=== PATIENT | male | born 1965 | race Caucasian/White ===

== ENCOUNTER 2017-10-09 17:17 | Emergency (ER) | payer BC, SELFPAY ==
[2017-10-09] VITALS (7 sets, daily range): BP systolic 139–167; BP diastolic 72–98; PULSE 97–110; RESP 16–20; TEMP 37.3–37.8; O2SAT 97–100; BMI 25.7
[2017-10-09 18:06] LABS: Absolute Lymphocyte Count 1.98 X10^3/ul (0.83-4.51); Absolute Neutrophil Count 6.7 X10^3/uL (2.0-7.7); Basophil# 0.04 X10^3/uL; Basophil% 0.4 % (0-1); Eosinophils% 2.1 % (0-5); Hematocrit 41.5 % (40-54); Hemoglobin 14.5 g/dl (13.0-16.5); Lymphocyte # 1.98 X10^3/ul (4.0); Lymphocyte % 20.9 % (19-41); Mean Corp Hgb Conc 34.9 g/gl (32-36); Mean Corpuscular Hgb 29.1 pg (27.0-32.0); Mean Corpuscular Volume 83.2 fL (80-94); Mean Platelet Vol. 9.6 fl (6.2-12.0); Monocyte# 0.55 X10^3/uL; Monocyte% 5.8 % (0-10); Neutrophil # 6.67 X10^3/uL (2.7-7.7); Neutrophil % 70.6 % (47-70); Platelet Count 283 K/mm3 (150-450); RBC Distribution Width CV 14.4 % (11.6-14.6); RBC Distribution Width SD 43.3 fl (35.1-43.9); Red Blood Count 4.99 M/mm3 (4.6-6.2); White Blood Count 9.5 K/mm3 (4.4-11.0)
[2017-10-09 18:07] LABS: D-Dimer Quantitative (DVT/PE) 0.28 FEU/ug/m (0.27-0.49); POSITIVE COUNT NO; POSITIVE DIFFERENTIAL NO; POSITIVE MORPHOLOGY NO
[2017-10-09 18:14] LABS: Anion Gap 6 (5-15); BUN 10 mg/dL (7-18); BUN/Creat Ratio 8.7 RATIO (10-20); Calcium,Total 8.8 mg/dL (8.5-10.1); Chloride 103 mmol/L (98-107); Creatinine, Serum 1.15 mg/dL (0.70-1.30); EST Glomerular Filtration Rate 71 mL/min (>60); Est Glom Filt Rate - Afr Amer 86 mL/min (>60); Estimated Creatinine Clearance 86.85 ml/min; Glucose 99 mg/dL (74-106); Potassium 3.6 mmol/L (3.5-5.1); Sodium Level 139 mmol/L (136-145)
[2017-10-09] MEDS: Ipratropium/Albuterol Sulfate 3 ML AMPUL.NEB INHALATION (18:45)
--- NOTE | 2017-10-09 19:11 | ED.VISSUMM ---
- ER Visit Summary Date of Service: 10/09/17 Chief Complaint: Patient presents with a constellation of symptoms which include mid chest pain with pleuritic component with cough, shortness of breatth. History of Present Illness: The patient is a 52 wh0 states he had nausea 1 hour prior to the chest pain and shortness of breath. The chest pain and shortness of breath started at rest. He denies pressure, tightness or heaviness. He denies any radiation of discomfort. He denies cold sweats. He does have history of GERD and reports noncompliance with his medication. His risk factors for coronary disease are hypertension, hypoglossal and smoking. His risk for pulmonary embolus is recent travel. Pain started at approximately noon. He denies any leg pain, swelling or discoloration. Patient states he is presently having pain. Physical Examination: Patient appears in no distress. Blood pressure is elevated 167/94. Head is atraumatic normocephalic. Pupils are equal round reactive. Extraocular muscles are intact. TMs are pearly white with landmarks noted. Nares patent with no drainage. Posterior pharynx without erythema or exudate. Uvula is midline. There is no dysphonia or dysphasia. Trachea is midline. There is no stridor with auscultation of the neck. Heart is regular without murmur, gallop or rub. Lungs revealed fine rales and x-ray wheezing with forced expiration. He has no reproducible chest pain. Abdomen is soft nontender with normal bowel sounds. There is no guarding or peritoneal findings. He has no CVA tenderness. There is no asymmetry, swelling, discoloration, leg vein distention, palpable cords or tenderness along the distribution of the deep venous system. Neuro exam is nonfocal. Test Results: Two-view chest x-ray reveals granulomatous disease on the right and unchanged from prior. CBC is unremarkable. Basic metabolic panel is normal. Troponin is less than 0.015. D-dimer is 0.28. Emergency Department Course and Treatment: With patient's constellation of symptoms with cough, pleuritic pain shortness of breath and negative d-dimer will treat for pleurisy and acute bronchitis. Treatment Plan: NSAIDs since there is no contraindication Disposition: Discharged home with appropriate home-going instructions Impression: 1. Bronchitis 2. Pleurisy 3. History of hypertension 4. History hypercholesterolemia 5. History of GERD and medication noncompliance This note was generated with [employer] dictation software. It may contain incorrect words, spelling, and punctuation that were not noted in review of the chart prior to signing ED Disposition - Plan for ED Patient: Disposition: Home or Assisted Living Chief Complaint: Chest Pain Instructions: ED Chest Pain Pleurisy, ED URI Viral Prescriptions: Naproxen [Naprosyn] 500 mg PO BID #14 tab Referrals: Jamie Elias DO [Primary Care Provider] - 3-5 Days if not improving
[2017-10-09] MEDS: Naproxen 250 MG Tablet 500 MG PO (19:29)
== END 2017-10-09 19:31 | disposition home or self-care (01) ==
PROVIDERS: Emergency Provider Emergency Medicine; Family Provider Family Medicine; PCP Family Medicine
DX: J40 Bronchitis, not specified as acute or chronic (principal); R09.1 Pleurisy; I10 Essential (primary) hypertension; E78.00 Pure hypercholesterolemia, unspecified; K21.9 Gastro-esophageal reflux disease without esophagitis; Z91.14 Patient's other noncompliance with medication regimen; Z72.0 Tobacco use
CPT/HCPCS: 71046; 80048; 84484; 85025; 85379; 93005; 94640; 99285

== ENCOUNTER → 2017-11-26 15:40 | Outpatient (CLI) | payer BC, SELFPAY ==
[2017-11-26 17:45] LABS: Potassium 3.7 mmol/L (3.5-5.1)
== END ==
PROVIDERS: Family Provider Family Medicine; PCP Family Medicine; Referring Provider Otolaryngology Otolaryngology/Facial Plastic Surgery; Visit Provider Otolaryngology Otolaryngology/Facial Plastic Surgery
DX: Z79.899 Other long term (current) drug therapy (principal)
CPT/HCPCS: 36415; 84132

== ENCOUNTER → 2018-03-16 12:17 | Outpatient (CLI) | payer BC, SELFPAY ==
--- NOTE | 2018-03-16 12:19 | RAD_ITS ---
STUDY: X-RAY - RIGHT ELBOW REASON FOR EXAM: Male, 52 years old. Pain and swelling following an injury. TECHNIQUE: 3 view(s) of the elbow. COMPARISON: None. FINDINGS: A degenerative bony spur is seen along the posterior aspect of the olecranon. Normal radiocapitellar and ulnotrochlear articulations. Mild soft tissue swelling. RAD/Elbow min 3 Views IMPRESSION: Degenerative spur along the posterior aspect of the olecranon. Soft tissue swelling. Electronically Signed: Robinson Trammell MD at 12:47 EST , Service support ,
--- OUTSIDE RECORDS SUMMARY | 2018-05-18 10:31 | XMS RPT_ITS ---
:1965 Author Organization [facility] Care Team Providers Name Role Phone Yordy Lambert Attending Unavailable Jamie Elias Referring Unavailable Yordy Lambert Attending Unavailable Yordy Lambert Referring Unavailable Jamie Elias Primary Care Unavailable Jamie Elias Primary Care Unavailable Yan, Edgardo Attending Unavailable Carlos Yano Referring Unavailable Angelito Ashley Attending Unavailable Angelito Ashley Referring Unavailable Jamie Elias Primary Care Unavailable PROBLEMS PROBLEMS DATE TYPE CONDITION / CODE ATTENDING STATUS SOURCE 03/16/2018 Unknown M25.521 - Pain Yordy Lambert Active Luc in right elbow / Community M25.521(ICD-10) Hospital Repository PROCEDURES PROCEDURES No Procedure Records FoundRESULTS RESULTS URGENT CARE VISIT Observed: 03/16/2018 Status: F Source: LUC REPORT 2:38 PM [facility] REPOSITORY [facility] [address] [place] [address] OFFICE VISIT Date of Service: 03/16/18 MR#: [id number] Acct: [id number] Name: HAYEDN PENDLETON Rep #: [id number] : 1965 Provider: Yordy HERNANDEZ Age/Sex: 52/M Location: [facility] Status: Signed Intake Vital Signs03/16/18 Height 6 ft 1 in Intake Visit Reasons: RT ELBOW INJURY/ SMACKED IT ON GARAGE/SNOW Chief Complaint: Right elbow 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 Accompanied by: self Is patient in pain?: No Allergies oxycodone [From OxyContin] Allergy (Verified 03/16/18 12:18) Rash Medications Bupropion HCl [Bupropion Xl] 300 mg PO DAILY 10/09/17 [History Confirmed 10/09/17] Naproxen [Naprosyn] 500 mg PO BID #14 tab 10/09/17 [Rx] cyclobenzaprine 10 mg tablet 10 mg PO TID PRN #20 tab 03/16/18 [Rx Confirmed 03/16/18] [facility] Medical History Back pain (Acute) Difficulty balancing (Acute) Knee pain (Acute) Shoulder pain (Acute) Stomach ulcer (Acute) history of broken right hip (Acute) Hypertension (Chronic) Social History Smoking Status: Current some day smoker HPI HPI Chief Complaint: Right elbow pain Details: HAYDEN PENDLETON, is a 52 M who presents to the office today for initial evaluation moderate severe right elbow pain after hitting it against a garage door while clearing snow off the driveway. He notes pain is aggravated to touch and range of motion to the same alleviated minimally with rest and mild flexion. He notes no prior history of injuries requiring medical attention or surgeries to the same. He is right-hand dominant. He notes no complaints of right shoulder, right wrist, or right hand/digits x5 discomfort. He notes no other associated symptoms and no other alleviating or aggravating factors. ROS Const Constitutional: No other (ROS negative x10 other than as noted above) Exam Const General: cooperative, healthy appearing, no acute distress, uncomfortable Nutritional Appearance: average body habitus Orientation: alert, awake, oriented x3 HENMT Head: normal to inspection Neck Neck: normal visual inspection, full ROM Chest Chest palpation AND inspection: normal inspection of the chest Resp Effort AND Inspection: normal respiratory effort, able to speak in complete sentences, symmetric chest movement Cardio Rate: regular rate Pulses: radial pulses present Skin General: no rashes or lesions noted Neuro General: alert, awake, oriented x3, gait normal Cognition: normal cognition Speech: speech normal Gait: normal gait Motor: muscle tone normal throughout Sensory Exam: no sensory deficits noted Extrem General: normal to inspection (Except mild erythema and swelling and fluctuance over the olecranon bursa), full ROM (With pain upon full extension), normal capillary refill, no joint enlargement, normal exam except as noted (X-rays today = no acute fracture or dislocation) Psych Appearance: grossly normal Mental Status: mental status grossly normal Mood: congruent mood Affect: normal affect Speech and Movement: speech and movement normal Attitude: cooperative Thought Process: normal Thought Content: normal Judgment: judgment good Assessment AND Plan Problems 1. Olecranon bursitis of right elbow M70.21 Plan -Traumatic Rest, ice, elevate, ibuprofen/Tylenol, Froilan wrap compression as needed/instructed today. Reviewed today's radiographs with patient in office today revealing no acute fractures dislocation per my review with patient stating he acknowledges understanding this description. Work excuse given. Follow-up with orthopedics in 5-7 days should symptoms not improve, sooner should symptoms worsen or any other concerns develop. Patient states acknowledging understanding all the above. This note was generated with [employer] dictation software. It may contain incorrect words, spelling, and punctuation that were not noted in checking the note before signing. Orders Orders: Medications New: Coding Level of Care Code Off vis,new,level 4 Diagnoses Olecranon bursitis of right elbow M70.21 03/16/18 1438 <Electronically signed by Yordy HERNANDEZ> Date Yordy HERNANDEZ Cosigner Signature: Date (if applicable) CC: ELBOW MIN 3 VIEWS Observed: 03/16/2018 Status: F Source: MINDEN 12:19 PM [facility] REPOSITORY [facility] Imaging Services [address] [place] [address] Elbow min 3 Views MR#: [id number] Acct: [id number] Name: HAYDEN PENDLETON Rep #: [id number] : 1965 M 52 From: Robinson Trammell MD PCP: Jamie Elias DO Status: REG CLI Study: Elbow min 3 Views Date of Exam: 03/16/18 Exam# [id number] Ordering Dr: Yordy Lambert STUDY: X-RAY - RIGHT ELBOW REASON FOR EXAM: Male, 52 years old. Pain and swelling following an injury. TECHNIQUE: 3 view(s) of the elbow. COMPARISON: None. FINDINGS: A degenerative bony spur is seen along the posterior aspect of the olecranon. Normal radiocapitellar and ulnotrochlear articulations. Mild soft tissue swelling. RAD/Elbow min 3 Views IMPRESSION: Degenerative spur along the posterior aspect of the olecranon. Soft tissue swelling. Electronically Signed: Robinson Trammell MD at 12:47 EST , Service support , CC: Jamie Elias DO; Yordy HERNANDEZ Drapery Cutter: Signed POTASSIUM Collected: 11/26/2017 Status: F Source: MINDEN 3:52 PM [facility] REPOSITORY TYPE CODE TESTS RESULT OUT OF RANGE REFERENCE UNITS LAB L501.5600 3.5-5.1 mmol/L Normal K 3.7 Performed By: #### L501.5600 #### [facility] [address] [place], [address] 12 LEAD ELECTROCARDIOGRAM Observed: 10/12/2017 Status: F Source: MINDEN 2:45 PM [facility] Cardiovascular Services [address] [place] [address] 12 Lead EKG 10/09/17 1724 MR#: [id number] Acct: [id number] Name: HAYDEN PENDLETON Rep #: [id number] : 1965 52 From: Tom Medina MD Attending Dr: Status: DEP ER Ordering Dr: Edgardo Yan MD Date: 10/09/17 Location: ED Sex: M C Admitted: Test Reason : CP Blood Pressure : / mmHG Vent. Rate : 095 BPM Atrial Rate : 095 BPM P-R Int : 172 ms QRS Dur : 086 ms QT Int : 324 ms P-R-T Axes : 059 071 053 degrees QTc Int : 407 ms Normal sinus rhythm Nonspecific ST abnormality Abnormal ECG Confirmed by TOM MEDINA MD ([id number]), clinical editor RANJAN BERGERON ([id number]) on 10/12/2017 2:44:46 PM Referred By: Edgardo Yan Confirmed By:TOM MEDINA MD 10/12/17 1444 Date Tom Medina MD CC: Jamie Elias DO; Edgardo Yan MD Signed EMERGENCY DEPARTMENT Observed: 10/09/2017 Status: F Source: MINDEN SUMMARY 7:21 PM [facility] Medical Records Department [address] [place] [address] Emergency Department Summary 10/09/17 1911 MR#: [id number] Acct: [id number] Name: HAYDEN PENDLETON Rep #: [id number] : 1965 52 From: Edgardo Yan MD PCP: Jamie Elias DO Status: REG ER - ER Visit Summary Date of Service: 10/09/17 Chief Complaint: Patient presents with a constellation of symptoms which include mid chest pain with pleuritic component with cough, shortness of breatth. History of Present Illness: The patient is a 52 wh0 states he had nausea 1 hour prior to the chest pain and shortness of breath. The chest pain and shortness of breath started at rest. He denies pressure, tightness or heaviness. He denies any radiation of discomfort. He denies cold sweats. He does have history of GERD and reports noncompliance with his medication. His risk factors for coronary disease are hypertension, hypoglossal and smoking. His risk for pulmonary embolus is recent travel. Pain started at approximately noon. He denies any leg pain, swelling or discoloration. Patient states he is presently having pain. Physical Examination: Patient appears in no distress. Blood pressure is elevated 167/94. Head is atraumatic normocephalic. Pupils are equal round reactive. Extraocular muscles are intact. TMs are pearly white with landmarks noted. Nares patent with no drainage. Posterior pharynx without erythema or exudate. Uvula is midline. There is no dysphonia or dysphasia. Trachea is midline. There is no stridor with auscultation of the neck. Heart is regular without murmur, gallop or rub. Lungs revealed fine rales and x-ray wheezing with forced expiration. He has no reproducible chest pain. Abdomen is soft nontender with normal bowel sounds. There is no guarding or peritoneal findings. He has no CVA tenderness. There is no asymmetry, swelling, discoloration, leg vein distention, palpable cords or tenderness along the distribution of the deep venous system. Neuro exam is nonfocal. Test Results: Two-view chest x-ray reveals granulomatous disease on the right and unchanged from prior. CBC is unremarkable. Basic metabolic panel is normal. Troponin is less than 0.015. D-dimer is 0.28. Emergency Department Course and Treatment: With patient's constellation of symptoms with cough, pleuritic pain shortness of breath and negative d-dimer will treat for pleurisy and acute bronchitis. Treatment Plan: NSAIDs since there is no contraindication Disposition: Discharged home with appropriate home-going instructions Impression: 1. Bronchitis 2. Pleurisy 3. History of hypertension 4. History hypercholesterolemia 5. History of GERD and medication noncompliance This note was generated with [employer] software. It may contain incorrect words, spelling, and punctuation that were not noted in review of the chart prior to signing ED Disposition - Plan for ED Patient: Disposition: Home or Assisted Living Chief Complaint: Chest Pain Instructions: ED Chest Pain Pleurisy, ED URI Viral Prescriptions: Naproxen [Naprosyn] 500 mg PO BID #14 tab Referrals: Jamie Elias DO [Primary Care Provider] - 3-5 Days if not improving What to do if you have Problems For any increased pain, shortness of breath, bleeding, nausea or vomiting, chest pain, or any unexpected problems, contact your Primary Care Provider. Call [facility] ([phone]) or report to the closest Emergency Room. Call 911 if necessary. 10/09/171920 <Electronically signed by Edgardo Yan MD> Date Edgardo Yan MD Cosigner Signature (If Indicated): Date CC: Jamie Elias DO CHEST PA AND LATERAL Observed: 10/09/2017 Status: F Source: MINDEN 5:52 PM [facility] Imaging Services [address] [place] [address] Chest PA and Lateral MR#: [id number] Acct: [id number] Name: HAYDEN PENDLETON Rep #: [id number] : 1965 M 52 From: Goldy Viera MD PCP: Jamie Elias DO Status: REG ER Study: Chest PA and Lateral Date of Exam: 10/09/17 Exam# [id number] Ordering Dr: Edgardo Yan MD STUDY: X-RAY CHEST REASON FOR EXAM: Male, 52 years old. Cough and chest pain TECHNIQUE: PA and lateral views of the chest. COMPARISON: Previous study of April 07, 2016 FINDINGS: cafeteria monitor leads are present. There are several small calcified granulomas of the right lung base. There is no demonstrated pleural abnormality. Normal size heart. Normal mediastinum and randal. Normal visualized pulmonary arteries. Normal visualized aortic arch and descending thoracic aorta. Normal visualized thoracic spine. Normal visualized ribs, clavicles, and shoulders. There is no demonstrated abnormality of the visualized soft tissue structures of the upper abdomen. RAD/Chest PA and Lateral IMPRESSION: There are several small calcified granulomas of the right lung base. No acute cardiopulmonary disease process is seen. Chest findings are stable in the interval. Electronically Signed: Goldy Viera MD at 18:34 EDT , Service support , CC: Jamie Elias DO; Edgardo Yan MD Drapery Cutter: Signed CBC W/DIFF, AUTOMATED Collected: 10/09/2017 Status: F Source: MINDEN 5:30 PM [facility] REPOSITORY TYPE CODE TESTS RESULT OUT OF RANGE REFERENCE UNITS LAB L100.1000 4.4-11.0 K/mm3 Normal WBC 9.5 LAB L100.1200 4.6-6.2 M/mm3 Normal RBC 4.99 LAB L100.1300 13.0-16.5 g/dl Normal HGB 14.5 LAB L100.1400 40-54 % Normal HCT 41.5 LAB L100.1500 80-94 fL Normal MCV 83.2 LAB L100.1600 27.0-32.0 pg Normal MCH 29.1 LAB L100.1700 32-36 g/gl Normal MCHC 34.9 LAB L100.1810 11.6-14.6 % Normal RDW CV 14.4 LAB L100.1820 35.1-43.9 fl Normal RDW SD 43.3 LAB L100.1900 150-450 K/mm3 Normal PLT 283 LAB L100.2000 6.2-12.0 fl Normal MPV 9.6 LAB L100.2100 47-70 % High NEUT% 70.6 LAB L100.2200 19-41 % Normal LY% 20.9 LAB L100.2300 0-10 % Normal MONO% 5.8 LAB L100.2400 0-5 % Normal EO% 2.1 LAB L100.2500 0-1 % Normal BASO% 0.4 LAB L100.2550 0.0-0.9 % Normal IM GRAN % 0.200 Result Comment: IG% - Immature Granulocytes (promyelocytes, myelocytes and metamyelocytes) > 1% indicates that a LEFT SHIFT is Present. LAB L100.2620 2.0-7.7 X10 3/uL Normal Absolute Neut 6.7 LAB L100.2720 0.83-4.51 X10 3/ul Normal Absolute Lymph 1.98 Performed By: #### L100.0100 #### [facility] [address] [place], [place], [address] D-DIMER QUANTITATIVE Collected: 10/09/2017 Status: F Source: MINDEN (DVT/PE) 5:30 PM [facility] REPOSITORY TYPE CODE TESTS RESULT OUT OF RANGE REFERENCE UNITS LAB L300.8000 0.27-0.49 FEU/ug/m Normal D-DIMER 0.28 QUANT Result Comment: NORMAL D-Dimer level (<0.50) indicates no DVT or PE. Performed By: #### L300.8000 #### [facility] [address] [place], [place], [address] BASIC METABOLIC Collected: 10/09/2017 Status: F Source: MINDEN PROFILE (BMP) 5:30 PM [facility] REPOSITORY TYPE CODE TESTS RESULT OUT OF RANGE REFERENCE UNITS LAB L501.0100 74-106 mg/dL Normal GLU 99 Result Comment: Please note revised GLUCOSE reference range effective 2017. LAB L501.1000 7-18 mg/dL Normal BUN 10 LAB L501.1100 0.70-1.30 mg/dL Normal CREAT,SERUM 1.15 Result Comment: The validity of the calculated GFR AND GFRAA in patients over 70 years has not been determined. Clinical correlation is essential. LAB L501.1110 >60 mL/min Normal EST GFR 71 Result Comment: Non- GFR Calc LAB L501.1115 >60 mL/min Normal EST GFR - AA 86 Result Comment: GFR Calc LAB L501.1255 ml/min Normal Estimated CRCL 86.85 LAB L501.1300 10-20 RATIO Low BUN/CRE 8.7 LAB L501.2200 8.5-10 mg/dL Normal .1 CA 8.8 LAB L501.5300 136-14 mmol/L Normal 5 NA 139 LAB L501.5600 3.5-5. mmol/L Normal 1 K 3.6 LAB L501.5900 98-107 mmol/L Normal CL 103 LAB L501.6100 21.0-3 mmol/L Normal 2.0 CO2 30.0 LAB L501.6200 5-15 Normal GAP 6 Performed By: #### L500.2500, L501.4010 #### [facility] [address] [place], [address] TROPONIN-I Collected: 10/09/2017 Status: F Source: MINDEN 5:30 PM [facility] TYPE CODE TESTS RESULT OUT OF RANGE REFERENCE UNITS LAB L501.4010 <0.045 ng/mL Normal < 0.015 TROPONIN-I Result Comment: TROPONIN-I EXPECTED VALUES <0.045 Negative 0.045 - 0.590 Consistent with Cardiac Damage > OR = 0.600 Critical Value Not every elevated troponin is indicative of MD. These values should be used with clinical judgement in examining the patient's clinical picture for diagnosis. To establish a diagnosis of MD versus myocardial injury, there must be a demonstrated rise and/or fall in the troponin values, in addition to ischemic symptoms, EKG changes, new regional wall motion abnormality, and/or angiographical evidence. PLEASE NOTE: REFERENCE RANGES EDITED 17 Performed By: #### L500.2500, L501.4010 #### [facility] [address] [place], [address] ALLERGIES ALLERGIES DATE TYPE / CODE NAME / CODE REACTION SEVERITY SOURCE 03/16/2018 Drug oxycodone/F0 Rash Unknown [facility] Allergy/4160 [id number]([facility] 18501(SNOMED ORM) Repository CT) ENCOUNTERS ENCOUNTERS ADMIT/DISCHARGE ACCOUNT ADMITTING ENCOUNTER LOCATION SOURCE NUMBER CLASS 03/16/2018 [id number] [facility] ing:HPRAD Repository 03/16/2018/ [id number] Ambulatory BMS[facility] 11/26/2017 [id number] Ambulatory [place] 3 [facility] ing:LAB Repository 10/09/2017/ [id number] Emergency [place] 8 8 [facility] ing:ED Repository PAYERS PAYERS ENCOUNTER GUARANTOR PAYER SUBSCRIBER SOURCE 03/16/2018 HAYDEN Alvarado Primary HAYDEN [id number] Insurance:ANTHEMPolic [place]ODOB: [facility] [place] Number: [id number] Hospital [address]Unz: 330 [id number] Repository [phone] () Date:[id number] [address] [place] [address] [place] [address]JV: 03/16/2018 Secondary NOT GIVENUNK [place] Insurance:SELF PAY [facility] Number: Effective Repository Date:2018-03-16 03/16/2018 HAYDEN Christiano Primary HAYDEN [id number] Insurance:ANTHEMPolic YOHODOB: [facility] [place] Number: [id number] Hospital [id number]: 330 [id number] Repository [phone] () Date:1329-95-69[address] [address]KJ: 03/16/2018 Secondary NOT GIVENUNK [place] Insurance:SELF PAY [facility] Number: Effective Repository Date:2018-03-16 11/26/2017 HAYDEN Christiano Primary HAYDEN [id number] Insurance:ANTHEMPolic YOHODOB: [facility] [place] Number: [id number] Hospital [address]Syt: 330 [id number] Repository [phone] () Date:3226-89-15Ti [address], [place] [address]HS: 11/26/2017 Secondary NOT GIVENUNK [place] Insurance:SELF PAY [facility] Number: Effective Repository Date:2017-11-26 10/09/2017 HAYDEN J Primary HAYDEN [id number] Insurance:ANTHEMPolic Y[place]ODOB: [facility] [address] [place] [place] Number: [id number] Hospital [address]Qwh: (117) [id number] Repository [phone] () Date:2725-22-56Sf [address], [place] [address]BR: 10/09/2017 Secondary NOT GIVENUNK [place] Insurance:SELF PAY [facility] Number: Effective Repository Date:2017-10-09
== END ==
LOC: HPRAD 12:18
PROVIDERS: Family Provider Family Medicine; PCP Family Medicine; Referring Provider Physician Assistant; Visit Provider Physician Assistant
DX: M25.521 Pain in right elbow (principal)
CPT/HCPCS: 73080

== ENCOUNTER → 2018-09-20 | Outpatient (CLI) | payer BC, SELFPAY ==
[2018-08-18 17:03] VITALS: BMI 23.8
[2018-09-20 07:38] LABS: Absolute Lymphocyte Count 2.13 X10^3/uL (0.83-4.51); Absolute Neutrophil Count 3.8 X10^3/uL (2.0-7.7); Basophil# 0.08 X10^3/uL; Basophil% 1.2 % (0-1); Eosinophil# 0.29 X10^3/uL; Eosinophils% 4.3 % (0-5); Hematocrit 42.2 % (40-54); Hemoglobin 14.8 g/dL (13.0-16.5); Lymphocyte # 2.13 X10^3/ul (4.0); Lymphocyte % 31.6 % (19-41); Mean Corp Hgb Conc 35.1 g/dL (32-36); Mean Corpuscular Hgb 28.5 pg (27.0-32.0); Mean Corpuscular Volume 81.3 fL (80-94); Mean Platelet Vol. 9.6 fl (6.2-12.0); Monocyte# 0.44 X10^3/uL; Monocyte% 6.5 % (0-10); NRBC Flagged by Analyzer 0 % (0-5); Neutrophil # 3.78 X10^3/uL (2.7-7.7); Neutrophil % 56.3 % (47-70); Platelet Count 350 K/mm3 (150-450); RBC Distribution Width CV 13.1 % (11.6-14.6); RBC Distribution Width SD 38.5 fl (35.1-43.9); Red Blood Count 5.19 M/mm3 (4.6-6.2); White Blood Count 6.7 K/mm3 (4.4-11.0)
[2018-09-20 08:02] LABS: ALB/GLOB Ratio 1.1 RATIO (0.9-2.4); AST(SGOT) 10 U/L (15-37); Alanine Aminotransfer ALT/SGPT 18 U/L (16-61); Albumin, Serum 4.2 g/dL (3.2-5.0); Alkaline Phosphatase 81 U/L (45-117); Anion Gap 9 (5-15); BUN 22 mg/dL (7-18); BUN/Creat Ratio 14.4 RATIO (10-20); Calcium,Total 9.5 mg/dL (8.5-10.1); Chloride 104 mmol/L (98-107); Cholesterol 316 mg/dL (200); Creatinine, Serum 1.53 mg/dL (0.70-1.30); EST Glomerular Filtration Rate 51 mL/min (>60); Est Glom Filt Rate - Afr Amer 62 mL/min (>60); Globulin 3.9 g/dL (2.2-4.2); Glucose 111 mg/dL (74-106); High Density Lipoprotein 33 mg/dL; Potassium 3.4 mmol/L (3.5-5.1); Protein, Total 8.1 g/dL (6.4-8.2); Sodium Level 141 mmol/L (136-145); Triglycerides 341 mg/dL; Very Low Density Lipoprotein 68 mg/dL (5-40)
== END | disposition home or self-care (01) ==
PROVIDERS: Family Provider Internal Medicine; PCP Internal Medicine; Referring Provider Internal Medicine; Visit Provider Internal Medicine
DX: I10 Essential (primary) hypertension (principal); G47.30 Sleep apnea, unspecified
CPT/HCPCS: 36415; 80053; 80061; 85025

== ENCOUNTER → 2018-11-03 16:43 | Outpatient (CLI) | payer BC, SELFPAY ==
[2018-09-23 16:04] VITALS: BMI 23.7
--- NOTE | 2018-11-03 16:56 | EKG12_ITS ---
Test Reason : PREOP Blood Pressure : / mmHG Vent. Rate : 076 BPM Atrial Rate : 076 BPM P-R Int : 180 ms QRS Dur : 088 ms QT Int : 368 ms P-R-T Axes : 063 077 028 degrees QTc Int : 414 ms Normal sinus rhythm Normal ECG Confirmed by ROLANDO HU, JULIANA ([id number]), mapping editor RANJAN BERGERON ([id number]) on 11/04/2018 11:20:18 AM Referred By: Nathan Nolasco Confirmed By:NATHALY MARSHALL MD
[2018-11-03 18:02] LABS: PSA,Total - Annual Screen 1.65 ng/mL (0.00-4.00)
[2018-11-03 18:32] LABS: Anion Gap 4 (5-15); BUN 17 mg/dL (7-18); BUN/Creat Ratio 11.5 RATIO (10-20); Calcium,Total 9.1 mg/dL (8.5-10.1); Chloride 105 mmol/L (98-107); Creatinine, Serum 1.48 mg/dL (0.70-1.30); EST Glomerular Filtration Rate 53 mL/min (>60); Est Glom Filt Rate - Afr Amer 64 mL/min (>60); Glucose 103 mg/dL (74-106); Potassium 3.2 mmol/L (3.5-5.1); Sodium Level 139 mmol/L (136-145)
== END ==
LOC: LAB 16:46
PROVIDERS: Nurse Practitioner Family; Family Provider Internal Medicine; PCP Internal Medicine; Referring Provider Otolaryngology; Visit Provider Otolaryngology
DX: Z01.818 Encounter for other preprocedural examination (principal); R35.1 Nocturia; R79.89 Other specified abnormal findings of blood chemistry
CPT/HCPCS: 36415; 80048; 84153; 93005; G0103

== ENCOUNTER → 2019-03-24 08:11 | Outpatient (CLI) | payer BC, SELFPAY ==
[2019-03-24 07:36] VITALS: BMI 25.2
[2019-03-24 12:40] LABS: Erythrocyte Sedimentation Rate 16 mm/hr (0-20)
[2019-03-24 13:09] LABS: Anion Gap 6 (5-15); BUN 17 mg/dL (7-18); BUN/Creat Ratio 12.1 RATIO (10-20); CRP 8.87 mg/L (0.0-3.0); Calcium,Total 9.4 mg/dL (8.5-10.1); Chloride 104 mmol/L (98-107); Cholesterol 324 mg/dL (200); EST Glomerular Filtration Rate 57 mL/min (>60); Est Glom Filt Rate - Afr Amer 69 mL/min (>60); Glucose 82 mg/dL (74-106); High Density Lipoprotein 43 mg/dL; Potassium 4.5 mmol/L (3.5-5.1); Rheumatoid Factor < 10.0 IU/mL (<15); Sodium Level 138 mmol/L (136-145); Triglycerides 294 mg/dL; Very Low Density Lipoprotein 59 mg/dL (5-40)
[2019-03-24 13:25] LABS: Microalbumin,Random Urine 9.8 mg/L (NO RANGE EST.); Microalbumin:Creatinine Ratio 8.4 mg/g CRE (<30 mg/g CRE)
[2019-03-26 15:12] LABS: CCP IgG Antibodies 14 units (0-19)
[2019-03-27 20:08] LABS: ANTINUCLEAR ANTIBODIES DIRECT Positive (Negative); Anti-Centromere B Ab 1.4 AI (0.0-0.9); Anti-Chromatin <0.2 AI (0.0-0.9); Anti-Jo <0.2 AI (0.0-0.9); Anti-Scleroderma-70 AB <0.2 AI (0.0-0.9); RNP Ab <0.2 AI (0.0-0.9); SJOGREN'S Anti-SS-A test < 0.2 AI (0.0-0.9); SJOGREN'S Anti-SS-B test < 0.2 AI (0.0-0.9); Smith Ab <0.2 AI (0.0-0.9)
[2019-03-27 21:07] LABS: Anti-dsDNA Ab 13 IU/mL (0-9)
== END ==
PROVIDERS: PCP Internal Medicine; Referring Provider Nurse Practitioner Family; Visit Provider Nurse Practitioner Family
DX: M25.50 Pain in unspecified joint (principal); M06.9 Rheumatoid arthritis, unspecified; N18.9 Chronic kidney disease, unspecified; E78.5 Hyperlipidemia, unspecified
CPT/HCPCS: 36415; 80048; 80061; 82043; 82570; 85652; 86038; 86140; 86200; 86225; 86235; 86431

== ENCOUNTER → 2019-05-23 15:24 | Outpatient (CLI) | payer BC, SELFPAY ==
[2019-05-05 16:01] VITALS: BMI 25.2
[2019-05-23 17:44] LABS: Hemoglobin 13.4 g/dL (13.0-16.5); Mean Corp Hgb Conc 35.3 g/dL (32-36); Mean Corpuscular Hgb 28.5 pg (27.0-32.0); Mean Corpuscular Volume 80.9 fL (80-94); Mean Platelet Vol. 9.6 fl (6.2-12.0); Platelet Count 361 K/mm3 (150-450); RBC Distribution Width CV 13.4 % (11.6-14.6); RBC Distribution Width SD 39.1 fl (35.1-43.9); White Blood Count 7.9 K/mm3 (4.4-11.0)
[2019-05-23 18:14] LABS: Anion Gap 7 (5-15); BUN 12 mg/dL (7-18); BUN/Creat Ratio 9.5 RATIO (10-20); Calcium,Total 9.6 mg/dL (8.5-10.1); Chloride 103 mmol/L (98-107); Creatinine, Serum 1.26 mg/dL (0.70-1.30); EST Glomerular Filtration Rate 64 mL/min (>60); Est Glom Filt Rate - Afr Amer 77 mL/min (>60); Glucose 87 mg/dL (74-106); Potassium 3.5 mmol/L (3.5-5.1); Sodium Level 138 mmol/L (136-145)
== END ==
PROVIDERS: PCP Internal Medicine; Referring Provider Nurse Practitioner Family; Visit Provider Nurse Practitioner Family
DX: I10 Essential (primary) hypertension (principal); R42 Dizziness and giddiness
CPT/HCPCS: 36415; 80048; 85027

== ENCOUNTER → 2019-08-03 10:27 | Outpatient (CLI) | payer BC, SELFPAY ==
[2019-08-03 09:31] VITALS: BMI 25.2
[2019-08-03 11:02] LABS: Hemoglobin 15.6 g/dL (13.0-16.5); Mean Corp Hgb Conc 33.9 g/dL (32-36); Mean Corpuscular Hgb 29.4 pg (27.0-32.0); Mean Corpuscular Volume 86.6 fL (80-94); Mean Platelet Vol. 9.7 fl (6.2-12.0); Platelet Count 321 K/mm3 (150-450); RBC Distribution Width CV 15.4 % (11.6-14.6); RBC Distribution Width SD 46.5 fl (35.1-43.9); Red Blood Count 5.31 M/mm3 (4.6-6.2); White Blood Count 7.4 K/mm3 (4.4-11.0)
[2019-08-03 11:13] LABS: Vitamin B12 418 pg/mL (211-911)
[2019-08-03 12:00] LABS: ALB/GLOB Ratio 1.1 RATIO (0.9-2.4); AST(SGOT) 15 U/L (15-37); Alanine Aminotransfer ALT/SGPT 24 U/L (16-61); Albumin, Serum 4.4 g/dL (3.2-5.0); Alkaline Phosphatase 84 U/L (45-117); Anion Gap 4 (5-15); BUN 19 mg/dL (7-18); BUN/Creat Ratio 17.4 RATIO (10-20); Calcium,Total 9.6 mg/dL (8.5-10.1); Chloride 103 mmol/L (98-107); Creatinine, Serum 1.09 mg/dL (0.70-1.30); EST Glomerular Filtration Rate 75 mL/min (>60); Est Glom Filt Rate - Afr Amer 91 mL/min (>60); Glucose 104 mg/dL (74-106); Potassium 4.3 mmol/L (3.5-5.1); Protein, Total 8.4 g/dL (6.4-8.2); Sodium Level 139 mmol/L (136-145)
[2019-08-06 06:44] LABS: Vitamin B1, Thiamine 156.1 nmol/L (66.5-200.0)
== END ==
PROVIDERS: PCP Internal Medicine; Referring Provider Psychiatry & Neurology Neurology; Visit Provider Psychiatry & Neurology Neurology
DX: G31.84 Mild cognitive impairment of uncertain or unknown etiology (principal)
CPT/HCPCS: 36415; 80053; 82607; 82746; 84425; 85027

== ENCOUNTER → 2019-08-15 16:28 | Outpatient (CLI) | payer BC, SELFPAY ==
[2019-08-03 09:31] VITALS: BMI 25.2
--- NOTE | 2019-08-15 16:33 | MRI_ITS ---
STUDY: MRI BRAIN WITH AND WITHOUT CONTRAST (ATTENTION INTERNAL AUDITORY CANALS - I.A.C.''s) REASON FOR EXAM: Male, 54 years old. INCREASED VERTIGO, SUDDEN R EAR DEAFNESS TECHNIQUE: Standardized multiplanar fat and water weighted pulse sequences were obtained. IV 18CC DOTAREM was administered for the contrast portion of the examination. COMPARISON: None. FINDINGS: Normal bilateral temporal bones. Normal bilateral internal auditory canals. There is no demonstrated intracanalicular or cisternal vestibular schwannoma (acoustic neuroma). There is no enhancement of the bilateral VIIth or VIIIth cranial nerves. Normal bilateral cochlea, vestibules and semicircular canals. Normal size of the ventricles and extra-axial spaces for the patient''s age. Normal white matter tracts of the supratentorial brain. Normal bilateral basal ganglia. Normal thalami. Normal flow voids within the major intracranial circulation suggesting patency by spin echo criteria. Normal venous enhancement. There is no enhancing intra-axial or extra-axial abnormality. There is no extra-axial fluid accumulation. Normal sella turcica, pituitary gland, infundibular stalk, optic chiasm and hypothalamus. Normal tectal plate and pineal gland. Normal midbrain, yessica and medulla. Normal cerebellum. Normal basal cisterns. No demonstrated orbital abnormality, within the constraints of a routine brain study. Normal visualized paranasal sinuses. Normal calvarium and skull base. Normal visualized soft tissue structures. Normal visualized upper cervical spine. MRI/Brain W/WO Contrast IMPRESSION: Normal unenhanced and enhanced MRI of the bilateral internal auditory canals (I.A.C''s). Electronically Signed: Alexia Cisneros, at 19:49 EDT Tel , Service support ,
== END ==
PROVIDERS: PCP Internal Medicine; Visit Provider Psychiatry & Neurology Neurology
DX: G31.84 Mild cognitive impairment of uncertain or unknown etiology (principal)
CPT/HCPCS: 70553; A9575

== ENCOUNTER → 2019-10-07 08:19 | Outpatient (CLI) | payer BC, SELFPAY ==
[2019-09-14 14:32] VITALS: BMI 25.2
[2019-10-07 09:48] LABS: PSA,Total- Diagnostic 2.27 ng/mL (0.0-4.0); Thyroid Stim Hormone (TSH) 0.84 uIU/mL (0.358-3.74)
== END ==
PROVIDERS: PCP Internal Medicine; Referring Provider Psychiatry & Neurology Neurology; Visit Provider Psychiatry & Neurology Neurology
DX: R53.82 Chronic fatigue, unspecified (principal); R35.0 Frequency of micturition
CPT/HCPCS: 36415; 84153; 84443

== ENCOUNTER 2020-01-03 11:33 | Observation (INO) | payer BC, SELFPAY ==
[2020-01-03] VITALS (12 sets, daily range): BP systolic 141–163; BP diastolic 88–127; PULSE 61–84; RESP 14–18; TEMP 36.3–36.9; O2SAT 96–100; BMI 27.6; BMI 27.3
--- NOTE | 2020-01-03 11:55 | EKG12_ITS ---
Test Reason : CP Blood Pressure : / mmHG Vent. Rate : 073 BPM Atrial Rate : 073 BPM P-R Int : 202 ms QRS Dur : 086 ms QT Int : 376 ms P-R-T Axes : 020 072 016 degrees QTc Int : 414 ms Normal sinus rhythm Normal ECG Confirmed by ROLANDO HU, JULIANA ([id number]), newspaper copy editor RADHA MATHEWS ([id number]) on 01/08/2020 1:17:24 PM Referred By: KIRSTEN Confirmed By:NATHALY MARSHALL MD
--- NOTE | 2020-01-03 11:56 | ED.DCSUM_ITS ---
- ER Visit Summary Date of Service: 01/03/20 Chief Complaint: [Chest pain] History of Present Illness: The patient is a 54 M [presents to the emergency department with complaint of chest pain that has been ongoing for the last 4 days. Patient describes intermittent discomfort that can last anywhere from 15 to 20 minutes at a time. 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 Patient stopped what he was doing and eventually the pain resolved but when he started working again the discomfort came back. He describes a tightness and a squeezing in his left chest. He denies any radiation of the discomfort. He denies nausea or vomiting. Does have some mild shortness of breath. He has had some vertigo issues and has been feeling somewhat lightheaded at times. Patient has no heart history. Patient did start taking aspirin a week ago. He has history of hypertension, high cholesterol, and smoking history. Denies recent travel or surgery. He has no history of PE or DVT.] Physical Examination: [HEENT-PERRLA, EOMI. Cranial nerves II through XII gr ossly intact. TMs clear. Mucous membranes moist. No adenopathy. Cardiovascular-regular rate and rhythm without murmur or ectopy Lungs-clear to auscultation, chest wall stable without crepitus or subcu emphysema Abdomen-normoactive bowel sounds, soft, nontender, no rebound or rigidity, no peritoneal signs. Extremities-intact ?4, normal range of motion, normal pulses, atraumatic] Test Results: [EKG obtained arrival shows sinus rhythm with a ventricular rate of 75 bpm with no acute ST segment changes.] CBC with differential was unremarkable. Chemistries unremarkable. Troponin less than 0.15. D-dimer was less than 0.27. Chest x-ray showed nothing acute. Emergency Department Course and Treatment: [IV line established on arrival. Patient was not given aspirin due to the fact that he had already taken some today. Patient received sublingual nitro which did improve his pain.] Treatment Plan: [Admit for further work-up and evaluation of his chest pain] Disposition: [Admit] Impression: [Chest pain-rule out acute coronary syndrome] This note was generated with [employer] software. It may contain incorrect words, spelling, and punctuation that were not noted in review of the chart prior to signing ED Disposition - Plan for ED Patient: Referrals: Quang Hanson MD [Primary Care Provider] -
[2020-01-03 12:06] LABS: Absolute Lymphocyte Count 2.55 X10^3/uL (0.83-4.51); Absolute Neutrophil Count 5.1 X10^3/uL (2.0-7.7); Basophil# 0.11 X10^3/uL; Basophil% 1.3 % (0-1); Eosinophils% 3.4 % (0-5); Hematocrit 44.3 % (40-54); Hemoglobin 15.2 g/dL (13.0-16.5); Lymphocyte # 2.55 X10^3/ul (4.0); Lymphocyte % 29.2 % (19-41); Mean Corp Hgb Conc 34.3 g/dL (32-36); Mean Corpuscular Hgb 28.3 pg (27.0-32.0); Mean Corpuscular Volume 82.3 fL (80-94); Mean Platelet Vol. 9.4 fl (6.2-12.0); Monocyte# 0.53 X10^3/uL; Monocyte% 6.1 % (0-10); NRBC Flagged by Analyzer 0 % (0-5); Neutrophil # 5.14 X10^3/uL (2.7-7.7); Neutrophil % 58.7 % (47-70); Platelet Count 285 K/mm3 (150-450); RBC Distribution Width CV 14.4 % (11.6-14.6); RBC Distribution Width SD 43.4 fl (35.1-43.9); Red Blood Count 5.38 M/mm3 (4.6-6.2); White Blood Count 8.7 K/mm3 (4.4-11.0)
[2020-01-03] MEDS: Nitroglycerin SL (ED/IMG/CATH) 0.4 MG TABLET SUBLINGUAL ×3 (12:08→12:32)
[2020-01-03] MEDS: 0.9% Normal Saline 1,000 ML 150 ML IV (12:08)
[2020-01-03 12:10] LABS: D-Dimer Quantitative (DVT/PE) <= 0.27 FEU/ug/m (0.27-0.49)
--- NOTE | 2020-01-03 12:10 | RAD_ITS ---
STUDY: X-RAY CHEST REASON FOR EXAM: Male, 54 years old. CHEST PAIN INTERMITTENT SINCE WEDNESDAY. -- DIZZINESS, HX OF VERTIGO. COUGH, SOB, N/V. TECHNIQUE: Single AP portable view of the chest. COMPARISON: Comparison is made with prior study dated 10/09/2017. FINDINGS: EKG electrodes are seen. Scattered calcified granulomas. The lungs are clear. There is no demonstrated pleural abnormality. Normal size heart. Normal mediastinum and randal. Normal visualized pulmonary arteries. Normal visualized aortic arch and descending thoracic aorta. Normal visualized thoracic spine. Normal visualized ribs, clavicles, and shoulders. There is no demonstrated abnormality of the visualized soft tissue structures of the upper abdomen. RAD/Chest 1 View (Portable) IMPRESSION: No acute abnormality is seen. Electronically Signed: Robinson Trammell, at 13:56 EST , Service support ,
[2020-01-03 12:15] LABS: Anion Gap 4 (5-15); BUN 22 mg/dL (7-18); BUN/Creat Ratio 17.5 RATIO (10-20); Calcium,Total 9.2 mg/dL (8.5-10.1); Chloride 104 mmol/L (98-107); Creatinine, Serum 1.26 mg/dL (0.70-1.30); EST Glomerular Filtration Rate 64 mL/min (>60); Est Glom Filt Rate - Afr Amer 77 mL/min (>60); Glucose 92 mg/dL (74-106); Potassium 3.7 mmol/L (3.5-5.1); Sodium Level 137 mmol/L (136-145)
--- NOTE | 2020-01-03 13:55 | HP.PCM_ITS ---
Problem List (1) Chest pain Status: Acute (2) Hyperlipidemia Status: Chronic (3) Depression Status: Chronic (4) Depression Status: Acute Qualifiers: (5) Vertigo Status: Chronic (6) Sleep apnea Status: Chronic (7) Arthritis Status: Chronic (8) Hypertension Status: Chronic (9) Shoulder pain Status: Resolved (10) Stomach ulcer Status: Acute (11) Knee pain Status: Resolved (12) Difficulty balancing Status: Acute (13) Back pain Status: Acute (14) history of broken right hip Status: Resolved (15) Olecranon bursitis of right elbow Status: Acute History of Present Illness Date of Admission: 01/03/20 Chief Complaint: chest pain The patient is a 54 year old M is experiencing left-sided chest pain. Chest pain does not radiate but it is exertional and associated with dyspnea on exertion and diaphoresis. This is been ongoing for 4 days. 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 Was at work today and again experienced that and then presented to the emergency room. In the emergency room, patient received nitroglycerin which offered minimal relief and it is coming back. Patient also concerned about his vertigo which has been an ongoing thing. He states is been since he was 20 years old. He has seen ENT as well as neurology. He has been told it anything from peripheral to M?ni?re's disease. Patient has seen Dr. Quiles and evaluation was that this may be more of a peripheral vestibulopathy. It was recommended he have Hansel maneuvers from this visit. [] Past Medical History Past Medical History (Chronic Problems): Chronic Problems (Last Reviewed 01/03/20 @ 13:[address] Yordan Miller DO) Hyperlipidemia (Chronic) Depression (Chronic) Vertigo (Chronic) Sleep apnea (Chronic) Arthritis (Chronic) Hypertension (Chronic) Medical History: Medical History (Last Reviewed 01/03/20 @ 13:[address] Yordan Miller DO) Depression (Acute) F32.9 Vertigo (Chronic) R42 Sleep apnea (Chronic) G47.30 Arthritis (Chronic) M19.90 Hypertension (Chronic) I10 Shoulder pain (Resolved) M25.519 Stomach ulcer (Acute) K25.9 Knee pain (Resolved) M25.569 Difficulty balancing (Acute) R29.818 Back pain (Acute) M54.9 history of broken right hip (Resolved) Allergies oxycodone [From OxyContin] Allergy (Verified 01/03/20 11:34) Rash Home Medications: Ambulatory Orders Medication Instructions Recorded melatonin 10 mg capsule 10 mg PO HS PRN 05/05/19 citalopram 20 mg tablet 20 mg PO DAILY #30 tab 12/12/19 diclofenac sodium 75 mg 75 mg PO BID PRN #60 tab 12/12/19 tablet,delayed release omeprazole 20 mg capsule,delayed 20 mg PO DAILY #30 cap 12/12/19 release triamterene 37.5 1 tab PO DAILY PRN 12/12/19 mg-hydrochlorothiazide 25 mg tablet loratadine 10 mg tablet 10 mg PO DAILY PRN #30 tab 12/25/19 prednisone 10 mg tablet 10 mg PO DAILY #21 tab 12/28/19 hydroxyzine HCl 25 mg tablet 25 mg PO BID PRN #14 tab 01/02/20 losartan 50 mg tablet See Rx Instructions .ROUTE 01/02/20 .COMPLEX #90 tab Surgical History: Surgical History (Last Reviewed 01/03/20 @ 13:[address] Yordan Miller DO) History of nasal surgery Z98.890 11/10 History of orthopedic surgery Z98.890 Rt Scapula History of repair of hip joint Z98.890 Rt Hip Smoking Status: Current every day smoker Tobacco Use: Cigarettes Alcohol: Heavy - She drinks a gallon of bourbon per week. - *Family History Maternal Family History: Family History (Last Reviewed 01/03/20 @ 13:[address] Yordan Miller DO) Other CVA (cerebral vascular accident) Depression Review of Systems Constitutional: Reports: Anorexia, Chills. Denies: Fever, Night Sweats Eyes: Denies: Blurred vision HEENT: Denies: Difficulty Hearing, Difficulty Swallowing Cardiovascular: Reports: Chest Pain, Claudication Respiratory: Reports: Cough, Hemoptysis, Pleuritic Pain, Shortness of Breath Gastrointestinal: Denies: Abdominal Pain, Nausea, Vomiting Genitourinary: Denies: Dysuria Musculoskeletal: Denies: Joint Pain, Joint Tenderness Skin: Denies: Rash, Wounds Neurological: Denies: Numbness, Tingling, Focal weakness Psychiatric: Denies: Anxiety, Depression Hematologic/ Lymphatic: Denies: Easy Bruising, Easy Bleeding Comment: All review of systems were negative except as mentioned above in the history of present illness and the other review of systems. VTE Information - Inpt Only VTE Present on Admission: No VTE Mechan Device Prophylaxis: None VTE Pharm Prophylaxis ordered?: No Reason prophylaxis not ordered:: Treatment Not Indicated Patient Problems: Active and Suspected Problems (Last Reviewed 01/03/20 @ 13:[address] Yordan Miller, DO) Chest pain (Acute) Depression (Acute) Stomach ulcer (Acute) Difficulty balancing (Acute) Back pain (Acute) Olecranon bursitis of right elbow (Acute) - Physical Exam Vitals/I&O's: Vital Signs Temp Pulse Resp BP Pulse Ox 36.8 C 72 14 149/91 H 97 01/03/20 13:27 01/03/20 13:27 01/03/20 13:27 01/03/20 13:27 01/03/20 13:27 Oxygen Delivery Method Room Air Weight: 94.8 kg Body Mass Index (BMI) 27.6 General: Alert, Cooperative HEENT: Atraumatic, EOMI - Does have minimal nystagmus with left lateral gaze., Normocephalic Oral: Moist Mucosa, No Gingival or Mucosal Lesions/ Ulcerations Neck: No Nodes, Thyroid Normal Size and Texture Lungs: Clear to auscultation, Normal air movement, No rhonchi, No wheeze, No rales Cardiovascular: Regular rate, Regular Rhythm, Normal S1, Normal S2, No murmurs, No Ectopic Activity Abdomen: Bowel Sounds Present, Soft, Non Tender, Non-Distended, No Hepato- splenomegaly Extremities: No edema, No Calf Tenderness Skin: No rashes, No breakdown Musculoskeletal: No Muscle Wasting, - - Reproducible anterior left chest pain Psych/Mental Status: Normal Affect, Appropriate Laboratory Results 01/03/20 11:50: WBC 8.7, RBC 5.38, Hgb 15.2, Hct 44.3, MCV 82.3, MCH 28.3, MCHC 34.3, RDW Std Deviation 43.4, RDW Coeff of Afsaneh 14.4, Plt Count 285, MPV 9.4, Immature Gran % (Auto) 1.300 H, Neut % (Auto) 58.7, Lymph % (Auto) 29.2, [place] % (Auto) 6.1, Eos % (Auto) 3.4, Baso % (Auto) 1.3 H, Absolute Neuts (auto) 5.1, Absolute Lymphs (auto) 2.55, Nucleated RBC % 0 01/03/20 11:50: D-Dimer Quant (PE/DVT) <= 0.27 01/03/20 11:50: Sodium 137, Potassium 3.7, Chloride 104, Carbon Dioxide 29.0, Anion Gap 4 L, BUN 22 H, Creatinine 1.26, Estim Creat Clear Calc 77.50, Est GFR (MDRD) Af Amer 77, Est GFR (MDRD) Non-Af 64, BUN/Creatinine Ratio 17.5, Glucose 92, Calcium 9.2, Troponin I < 0.015 EKG was normal sinus rhythm with no acute changes. Chest x-ray reviewed and showed no infiltrate nor pulmonary edema. Current Medications Sodium Chloride () 1,000 mls @ 150 mls/hr IV .Q6H40M GABBIE Last Admin: 01/03/20 12:08 Dose: 150 mls/hr Documented by: Assessment/Plan All Active Problems (Last Reviewed 01/03/20 @ 13:[address] Yordan Miller, DO) Chest pain (Acute) Depression (Acute) Shoulder pain (Resolved) Stomach ulcer (Acute) Knee pain (Resolved) Difficulty balancing (Acute) Back pain (Acute) history of broken right hip (Resolved) Olecranon bursitis of right elbow (Acute) 1. Chest pain: ADINA score of 2 Cass score of 84. D-dimer was negative. Concern is for this being cardiac in nature. Plan is for treadmill stress echocardiogram on the . Patient received aspirin as well. Check lipid panel in the morning and cycle troponins. Patient is concerned about being a guinea pig in the hospital. I told the patient that if he does require cardiac catheterization and stent that he would need to be medications for at least a year otherwise he could potentially have an in-stent stenosis. He states that he would be compliant if it came to that. 2. Vertigo, chronic: Patient has been evaluated extensively. Patient most recently saw Dr. Quiles in November and he felt the patient had peripheral vestibulopathy. Patient has taken meclizine in the past with minimal relief. Patient will have that ordered but also Valium. Follow-up with neurology. I did advise patient follow-up with a more specialized specialist up at the larger hospitals in [place] if he wishes to have a second opinion. 3. Alcohol abuse: Patient drinks a gallon of bourbon over a week but does state that he can go days without having any alcohol and when he does not drink he does not experience any withdrawal type symptoms. We will put the patient on thiamine and folate and observe. 4. VTE prophylaxis: Not indicated as patient is observation status at this time. 5. Rheumatoid arthritis: Patient has been seeing rheumatology down here. Patient does not have any obvious rheumatologic signs and I can appreciate. Recommend referral to another homemaking rehabilitation consultant as patient was unhappy with the homemaking rehabilitation consultant he saw here previously. OBSV E&M: [id number] Initial observation care L3
--- NOTE | 2020-01-03 14:36 | EKG12_ITS ---
Test Reason : CP Blood Pressure : / mmHG Vent. Rate : 077 BPM Atrial Rate : 077 BPM P-R Int : 170 ms QRS Dur : 086 ms QT Int : 382 ms P-R-T Axes : 027 070 014 degrees QTc Int : 432 ms Normal sinus rhythm Normal ECG Confirmed by GERBER HU, CARLOS ([id number]), acquisition editor RADHA MATHEWS ([id number]) on 01/08/2020 1:35:06 PM Referred By: KIRSTEN Confirmed By:CARLOS MAYES MD
[2020-01-03] MEDS: Diclofenac 75 MG Tablet PO (16:25)
[2020-01-03] MEDS: diazePAM 2 MG Tablet PO (16:25)
[2020-01-03] MEDS: Folic Acid 1 MG Tablet PO (18:38)
[2020-01-03] MEDS: Thiamine Hydrochloride 100 MG Tablet PO (18:39)
[2020-01-03] MEDS: MELATONIN 10 MG TABLET PO (21:00)
[2020-01-04 02:55] VITALS: BP 132/75; PULSE 65; RESP 18; TEMP 36.3; O2SAT 100
[2020-01-04 03:00] VITALS: PULSE 64
--- NOTE | 2020-01-04 05:00 | EKG12_ITS ---
Test Reason : AM EKG Blood Pressure : / mmHG Vent. Rate : 068 BPM Atrial Rate : 068 BPM P-R Int : 188 ms QRS Dur : 084 ms QT Int : 398 ms P-R-T Axes : 022 081 064 degrees QTc Int : 423 ms Normal sinus rhythm Normal ECG When compared with ECG of 03-JAN-2020 16:38, MANUAL COMPARISON REQUIRED, DATA IS UNCONFIRMED Confirmed by ROLANDO HU, JULIANA ([id number]), writer editor RADHA MATHEWS ([id number]) on 01/08/2020 1:14:13 PM Referred By: KIRSTEN Confirmed By:NATHALY MARSHALL MD
--- NOTE | 2020-01-04 05:55 | STEWCON_ITS ---
Reason For Study: CHEST PAIN Stress Results Protocol: Bill Protocol WITH DEFINITY Maximum Predicted HR: 168 bpm Target HR: 143 bpm % Maximum Predicted HR: 85 % DurationHeart Rate Stage (mm:ss) (bpm) BP Comment BASELINE 66 162/94 6 CC TOTAL FOR TEST STAGE 1 3:00 96 172/102 STAGE 2 3:00 109 182/90 STAGE 3 3:00 130 200/92 SOME DISCOMFORT IN CHEST FOR HEAVIER BREATING STAGE 4 1:00 142 / RECOVERY 94 160/82 Stress Duration: 10:00 mm:ss Maximum Stress HR: 142 bpm Baseline Echocardiogram Findings The estimated ejection fraction is 60 %. post stress EF is 65%. Stress Echo Wall motion Data Resting WM Intermediate WM Stress WM Resting Wall Motion Wall Motion Stress No regional wall motion No regional wall motion abnormalities noted. abnormalities noted. Some what limited due to short axis post stress images being unavailable. EKG Data The baseline ECG demonstrates normal sinus rhythm with at rate of _ beats per minute. No significant ischemic ST changes. Patient did have frequent PVCs at peak exercise. Symptoms with Stress no chest pain. Interpretation Summary The estimated ejection fraction is 60 %. Stress echo is negative for stress induced CP or EKG or echocardiographic changes of ischemia. Ordering Physician: Jacob^^^ Performed By: Estefani Cedeno, RDCS, RVT
[2020-01-04 06:18] VITALS: BP 169/95; PULSE 65; RESP 18; TEMP 36.6; O2SAT 98
[2020-01-04] MEDS: Aspirin E.C. 81 MG Tablet PO (06:20)
[2020-01-04] MEDS: Losartan Potassium 50 MG Tablet PO (06:20)
[2020-01-04] MEDS: 0.9% Saline Lock 10 ML Syringe IV (06:22)
[2020-01-04 07:09] VITALS: PULSE 63
--- NOTE | 2020-01-04 07:47 | PN_ITS ---
Patient Problems: Active and Suspected Problems (Last Reviewed 01/03/20 @ 13:[address] Yordan Miller, DO) Chest pain (Acute) Depression (Acute) Stomach ulcer (Acute) Difficulty balancing (Acute) Back pain (Acute) Olecranon bursitis of right elbow (Acute) Vitals/I&O's: Vital Signs Temp Pulse Resp BP Pulse Ox 97.9 F 65 18 169/95 H 98 01/04/20 06:18 01/04/20 06:18 01/04/20 06:18 01/04/20 06:18 01/04/20 06:18 Oxygen Delivery Method Room Air Weight: 93.939 kg Body Mass Index (BMI) 27.3 Intake and Output for Last 24 Hours 01/02/20 01/03/20 01/04/20 23:59 23:59 23:59 Intake Total 1240 / 1600 390 / 390 Balance 1240 / 1600 390 / 390 Laboratory Results 01/03/20 11:50: WBC 8.7, RBC 5.38, Hgb 15.2, Hct 44.3, MCV 82.3, MCH 28.3, MCHC 34.3, RDW Std Deviation 43.4, RDW Coeff of Afsaneh 14.4, Plt Count 285, MPV 9.4, Immature Gran % (Auto) 1.300 H, Neut % (Auto) 58.7, Lymph % (Auto) 29.2, [place] % (Auto) 6.1, Eos % (Auto) 3.4, Baso % (Auto) 1.3 H, Absolute Neuts (auto) 5.1, Absolute Lymphs (auto) 2.55, Nucleated RBC % 0 01/03/20 11:50: D-Dimer Quant (PE/DVT) <= 0.27 01/03/20 11:50: Sodium 137, Potassium 3.7, Chloride 104, Carbon Dioxide 29.0, Anion Gap 4 L, BUN 22 H, Creatinine 1.26, Estim Creat Clear Calc 77.50, Est GFR (MDRD) Af Amer 77, Est GFR (MDRD) Non-Af 64, BUN/Creatinine Ratio 17.5, Glucose 92, Calcium 9.2, Troponin I < 0.015 01/03/20 15:14: Troponin I < 0.015 01/03/20 17:35: Troponin I < 0.015 Current Medications Acetaminophen (Acetaminophen 325 Mg Tablet) 650 mg PO Q6H PRN PRN PRN Reason: Pain Score 1-10/Temp > 100.7 F Aspirin (Aspirin E.C. 81 Mg Tablet) 81 mg PO DAILY@0800 [facility] Last Admin: 01/04/20 06:20 Dose: 81 mg Documented by: Citalopram Hydrobromide (Citalopram 20 Mg Tablet) 20 mg PO DAILY [facility] Diazepam (Diazepam 2 Mg Tablet) 2 mg PO 4X/DAY PRN PRN PRN Reason: VERTIGO Last Admin: 01/03/20 16:25 Dose: 2 mg Documented by: Diclofenac Sodium (Diclofenac 75 Mg Tablet) 75 mg PO BID PRN PRN Reason: pain Last Admin: 01/03/20 16:25 Dose: 75 mg Documented by: Folic Acid (Folic Acid 1 Mg Tablet) 1 mg PO DAILY@0800 [facility] Stop: 01/06/20 08:01 Last Admin: 01/03/20 18:38 Dose: 1 mg Documented by: Hydroxyzine Pamoate (Hydroxyzine Cherelle 25 Mg Capsule) 25 mg PO BID PRN PRN Reason: dizziness Loratadine (Loratadine 10 Mg Tablet) 10 mg PO DAILY PRN PRN Reason: dizziness or vertigo Lorazepam (Lorazepam 1 Mg Tablet) 2 mg PO Q2H PRN PRN; Protocol PRN Reason: CIWA score > 8 but <15 Lorazepam (Lorazepam 1 Mg Tablet) 2 mg PO UD PRN; Protocol PRN Reason: CIWA score >/=15. Lorazepam (Lorazepam 2 Mg/Ml Syringe) 2 mg IV Q2H PRN PRN; Protocol PRN Reason: CIWA score > 8 but <15 Lorazepam (Lorazepam 2 Mg/Ml Syringe) 2 mg IV UD PRN; Protocol PRN Reason: CIWA score >/=15. Losartan Potassium (Losartan Potassium 50 Mg Tablet) 50 mg PO DAILY [facility] Last Admin: 01/04/20 06:20 Dose: 50 mg Documented by: Meclizine HCl (Meclizine Hcl 25 Mg Tablet) 25 mg PO 4X/DAY PRN PRN PRN Reason: Vertigo Melatonin (Melatonin 10 Mg Tablet) 10 mg PO HS PRN PRN Reason: SLEEP Last Admin: 01/03/20 21:00 Dose: 10 mg Documented by: Nitroglycerin (Nitroglycerin (Inpatient Use) 0.4 Mg Tab.Subl) 0.4 mg SUBLINGUAL Q5M PRN PRN Reason: CARDIAC/CHEST PAIN Non-Formulary Medication (Triamterene/Hydrochlorothiazid [Triamterene-Hctz 37.5- 25 Mg Tb]) 1 tab PO DAILY PRN PRN Reason: unknown Ondansetron HCl (Ondansetron 4 Mg/2 Ml Vial) 4 mg IV Q8H PRN PRN PRN Reason: NAUSEA/VOMITING Pantoprazole Sodium (Pantoprazole Sodium 20 Mg Tablet) 20 mg PO DAILY GABBIE Prednisone (Prednisone 10 Mg Tablet) 10 mg PO DAILY GABBIE Sodium Chloride (0.9% Saline Lock 10 Ml Syringe) 10 - 40 ml IV UD PRN PRN Reason: SALINE FLUSH Last Admin: 01/04/20 06:22 Dose: 10 ml Documented by: Thiamine HCl (Thiamine Hydrochloride 100 Mg Tablet) 100 mg PO BIDCM GABBIE Stop: 01/06/20 08:01 Last Admin: 01/03/20 18:39 Dose: 100 mg Documented by: STROKE Vital Signs/Narrative: Vital Signs Temp Pulse Resp BP Pulse Ox 01/04/20 06:18 97.9 F 65 18 169/95 H 98 Medical Necessity - Tobacco Use Smoking Status: Current every day smoker Tobacco Use: Cigarettes, Vapor Assessment/Plan All Active Problems (Last Reviewed 01/03/20 @ 13:[address] Yordan Miller, DO) Chest pain (Acute) Depression (Acute) Shoulder pain (Resolved) Stomach ulcer (Acute) Knee pain (Resolved) Difficulty balancing (Acute) Back pain (Acute) history of broken right hip (Resolved) Olecranon bursitis of right elbow (Acute)
[2020-01-04] MEDS: Citalopram 20 MG Tablet PO (08:54)
[2020-01-04] MEDS: Pantoprazole Sodium 20 MG Tablet PO (08:55)
[2020-01-04] MEDS: Thiamine Hydrochloride 100 MG Tablet PO (08:55)
[2020-01-04] MEDS: hydrOXYzine PAM 25 MG Capsule PO (09:00)
[2020-01-04] MEDS: Folic Acid 1 MG Tablet PO (09:00)
[2020-01-04 10:00] VITALS: BP 152/84; PULSE 85; RESP 13; TEMP 36.7; O2SAT 98
[2020-01-04] MEDS: Nitroglycerin (INPATIENT USE) 0.4 MG TAB.SUBL SUBLINGUAL ×2 (10:05→10:17)
[2020-01-04] MEDS: diazePAM 2 MG Tablet PO (10:06)
[2020-01-04 10:17] VITALS: BP 150/88
[2020-01-04] MEDS: Acetaminophen 325 MG Tablet 650 MG PO (10:20)
--- NOTE | 2020-01-04 13:13 | DCINST_ITS ---
- Discharge Diagnoses Current Active Problems: Current Active and Chronic Problems (Last Reviewed 01/03/20 @ 13:[address] Yordan Miller, DO) Chest pain (Acute) Hyperlipidemia (Chronic) Depression (Chronic) Depression (Acute) Vertigo (Chronic) Sleep apnea (Chronic) Arthritis (Chronic) Hypertension (Chronic) Stomach ulcer (Acute) Difficulty balancing (Acute) Back pain (Acute) Olecranon bursitis of right elbow (Acute) You will use the following diet at home:: Cardiac Your food should be the consistency of: Regular Your liquids should be the consistency of: Regular/Thin Discharge Activity: Return to Normal Activity Additional Instructions: Continue to take all your medication. Follow-up with vestibular therapy as prescribed by Dr. Quiles, the neurologist. You are strongly advised to quit drinking alcohol and smoking Marijuana. Allergies/Adverse Reactions: Allergies oxycodone [From OxyContin] Allergy (Verified 01/03/20 11:34) Rash Medications to take at Discharge melatonin 10 mg capsule 10 mg PO HS PRN 05/05/19 citalopram 20 mg tablet 20 mg PO DAILY #30 tab 12/12/19 diclofenac sodium 75 mg tablet,delayed release 75 mg PO BID PRN #60 tab 12/12/19 omeprazole 20 mg capsule,delayed release 20 mg PO DAILY #30 cap 12/12/19 triamterene 37.5 mg-hydrochlorothiazide 25 mg tablet 1 tab PO DAILY PRN 12/12/19 loratadine 10 mg tablet 10 mg PO DAILY PRN #30 tab 12/25/19 hydroxyzine HCl 25 mg tablet 25 mg PO BID PRN #14 tab 01/02/20 losartan 50 mg tablet See Rx Instructions .ROUTE .COMPLEX #90 tab 01/02/20 Acetaminophen [Tylenol Tablet] 650 mg PO Q6H PRN PRN tab 01/04/20 Primary Care Physician: Quang Hanson MD [Primary Care Provider] - Please follow up with your Primary Care Physician in: within 2 weeks Test Results: Test results from this visit will be discussed in further detail at your follow- up appointment, if applicable. Please Follow Up With: Terrlel Quiles MD When: as scheduled Proposed Discharge Date: 01/04/20
--- NOTE | 2020-01-04 13:17 | DS.PCM_ITS ---
Discharge Date and Diagnosis - Problem List Patient Problems: Active and Suspected Problems (Last Reviewed 01/03/20 @ 13:[address] Yordan Miller DO) Chest pain (Acute) Depression (Acute) Stomach ulcer (Acute) Difficulty balancing (Acute) Back pain (Acute) Olecranon bursitis of right elbow (Acute) Date of Admission: 01/03/20 Date of Discharge: 01/04/20 - Primary Discharge Diagnosis Acute Problems: Active Problems (Last Reviewed 01/03/20 @ 13:[address] Yordan Miller DO) Acute Chest pain, acute coronary syndrome ruled out - Secondary Discharge Diagnosis Chronic Problems: Chronic Problems (Last Reviewed 01/03/20 @ 13:[address] Yordan Miller DO) Hyperlipidemia (Chronic) Depression (Chronic) Vertigo (Chronic) Sleep apnea (Chronic) Arthritis (Chronic) Hypertension (Chronic) Hospital Course and Treatment Imaging Results: 01/04/20 05:55 Stress Test Echo W/Contrast [ECHO] AM (NON MEDS) Clinical Impression(s) from Imaging Studies Chest X-Ray 01/03/20 12:10 IMPRESSION: No acute abnormality is seen. Electronically Signed: Robinson Jp, at 13:56 EST , Service support , Procedures: Stress test Summary of Care Provided: The patient is a 54 year old M has medical history of chronic vertigo who follows up with neurology in the outpatient comes in with chest pain ongoing for about 4 days, worse on the day of admission. 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 He stopped for about 20 minutes and resumed later on with the same feeling. Patient was in the emergency room, also had nitroglycerin with no relief. He is a chronic alcohol user and his admitting EKG showed no acute ST-T changes. Troponins were negative. Glucose unremarkable. He underwent stress test that was negative. Patient was asked to follow-up with his neurologist and his primary care doctor in the outpatient. Patient Problems: Active and Suspected Problems (Last Reviewed 01/03/20 @ 13:[address] Yordan Miller DO) Chest pain (Acute) Depression (Acute) Stomach ulcer (Acute) Difficulty balancing (Acute) Back pain (Acute) Olecranon bursitis of right elbow (Acute) Subjective: On the day of discharge, patient was seen and examined. Denied any new complaints. His stress test was negative. His vertigo was slightly improved. Objective: Physical exam: General: Alert, Cooperative HEENT: Atraumatic, EOMI - Does have minimal nystagmus with left lateral gaze., Normocephalic Oral: Moist Mucosa, No Gingival or Mucosal Lesions/ Ulcerations Neck: No Nodes, Thyroid Normal Size and Texture Lungs: Clear to auscultation, Normal air movement, No rhonchi, No wheeze, No rales Cardiovascular: Regular rate, Regular Rhythm, Normal S1, Normal S2, No murmurs, No Ectopic Activity Abdomen: Bowel Sounds Present, Soft, Non Tender, Non-Distended, No Hepato- splenomegaly Extremities: No edema, No Calf Tenderness Skin: No rashes, No breakdown Musculoskeletal: No Muscle Wasting, - - Reproducible anterior left chest pain Psych/Mental Status: Normal Affect, Appropriate - Physical Exam Vitals/I&O's: Vital Signs Temp Pulse Resp BP Pulse Ox 98.0 F 85 13 150/88 H 98 01/04/20 10:00 01/04/20 10:00 01/04/20 10:00 01/04/20 10:17 01/04/20 10:00 Oxygen Delivery Method Room Air Weight: 93.939 kg Body Mass Index (BMI) 27.3 Intake and Output for Last 24 Hours 01/02/20 01/03/20 01/04/20 23:59 23:59 23:59 Intake Total 1240 / 1600 390 / 390 Balance 1240 / 1600 390 / 390 Laboratory Results 01/03/20 15:14: Troponin I < 0.015 01/03/20 17:35: Troponin I < 0.015 Current Medications Acetaminophen (Acetaminophen 325 Mg Tablet) 650 mg PO Q6H PRN PRN PRN Reason: Pain Score 1-10/Temp > 100.7 F Last Admin: 01/04/20 10:20 Dose: 650 mg Documented by: Aspirin (Aspirin E.C. 81 Mg Tablet) 81 mg PO DAILY@0800 GABBIE Last Admin: 01/04/20 06:20 Dose: 81 mg Documented by: Citalopram Hydrobromide (Citalopram 20 Mg Tablet) 20 mg PO DAILY [facility] Last Admin: 01/04/20 08:54 Dose: 20 mg Documented by: Diazepam (Diazepam 2 Mg Tablet) 2 mg PO 4X/DAY PRN PRN PRN Reason: VERTIGO Last Admin: 01/04/20 10:06 Dose: 2 mg Documented by: Diclofenac Sodium (Diclofenac 75 Mg Tablet) 75 mg PO BID PRN PRN Reason: pain Last Admin: 01/03/20 16:25 Dose: 75 mg Documented by: Folic Acid (Folic Acid 1 Mg Tablet) 1 mg PO DAILY@0800 [facility] Stop: 01/06/20 08:01 Last Admin: 01/04/20 09:00 Dose: 1 mg Documented by: Hydroxyzine Pamoate (Hydroxyzine Cherelle 25 Mg Capsule) 25 mg PO BID PRN PRN Reason: dizziness Last Admin: 01/04/20 09:00 Dose: 25 mg Documented by: Loratadine (Loratadine 10 Mg Tablet) 10 mg PO DAILY PRN PRN Reason: dizziness or vertigo Lorazepam (Lorazepam 1 Mg Tablet) 2 mg PO Q2H PRN PRN; Protocol PRN Reason: CIWA score > 8 but <15 Lorazepam (Lorazepam 1 Mg Tablet) 2 mg PO UD PRN; Protocol PRN Reason: CIWA score >/=15. Lorazepam (Lorazepam 2 Mg/Ml Syringe) 2 mg IV Q2H PRN PRN; Protocol PRN Reason: CIWA score > 8 but <15 Lorazepam (Lorazepam 2 Mg/Ml Syringe) 2 mg IV UD PRN; Protocol PRN Reason: CIWA score >/=15. Losartan Potassium (Losartan Potassium 50 Mg Tablet) 50 mg PO DAILY [facility] Last Admin: 01/04/20 06:20 Dose: 50 mg Documented by: Meclizine HCl (Meclizine Hcl 25 Mg Tablet) 25 mg PO 4X/DAY PRN PRN PRN Reason: Vertigo Melatonin (Melatonin 10 Mg Tablet) 10 mg PO HS PRN PRN Reason: SLEEP Last Admin: 01/03/20 21:00 Dose: 10 mg Documented by: Nitroglycerin (Nitroglycerin (Inpatient Use) 0.4 Mg Tab.Subl) 0.4 mg SUBLINGUAL Q5M PRN PRN Reason: CARDIAC/CHEST PAIN Last Admin: 01/04/20 10:17 Dose: 1 tab Documented by: Non-Formulary Medication (Triamterene/Hydrochlorothiazid [Triamterene-Hctz 37.5- 25 Mg Tb]) 1 tab PO DAILY PRN PRN Reason: unknown Ondansetron HCl (Ondansetron 4 Mg/2 Ml Vial) 4 mg IV Q8H PRN PRN PRN Reason: NAUSEA/VOMITING Pantoprazole Sodium (Pantoprazole Sodium 20 Mg Tablet) 20 mg PO DAILY [facility] Last Admin: 01/04/20 08:55 Dose: 20 mg Documented by: Prednisone (Prednisone 10 Mg Tablet) 10 mg PO DAILY [facility] Sodium Chloride (0.9% Saline Lock 10 Ml Syringe) 10 - 40 ml IV UD PRN PRN Reason: SALINE FLUSH Last Admin: 01/04/20 06:22 Dose: 10 ml Documented by: Thiamine HCl (Thiamine Hydrochloride 100 Mg Tablet) [facility] Stop: 01/06/20 08:01 Last Admin: 01/04/20 08:55 Dose: 100 mg Documented by: Discharge Diet: Low fat/ Low Cholesterol, 2000 mg Sodium Diet Discharge Activity: Return to Normal Activity Home Medications: Medications to take at Discharge melatonin 10 mg capsule 10 mg PO HS PRN 05/05/19 citalopram 20 mg tablet 20 mg PO DAILY #30 tab 12/12/19 diclofenac sodium 75 mg tablet,delayed release 75 mg PO BID PRN #60 tab 12/12/19 omeprazole 20 mg capsule,delayed release 20 mg PO DAILY #30 cap 12/12/19 triamterene 37.5 mg-hydrochlorothiazide 25 mg tablet 1 tab PO DAILY PRN 12/12/19 loratadine 10 mg tablet 10 mg PO DAILY PRN #30 tab 12/25/19 hydroxyzine HCl 25 mg tablet 25 mg PO BID PRN #14 tab 01/02/20 losartan 50 mg tablet See Rx Instructions .ROUTE .COMPLEX #90 tab 01/02/20 Acetaminophen [Tylenol Tablet] 650 mg PO Q6H PRN PRN tab 01/04/20 Primary Care Physician: Quang Hanson MD [Primary Care Provider] - Please follow up with your Primary Care Physician in: within 2 weeks Please Follow Up With: Terrell Quiles MD When: as scheduled Disposition: Home Minutes spent on discharge:: 35 Patient Condition:: Stable Medical Necessity - Tobacco Use Smoking Status: Current every day smoker Tobacco Use: Cigarettes, Vapor Meaningful Use Info Meaningful Use Diagnoses (Choose all that apply): None applicable OBSV E&M: 07982 Observation care discharge
--- NOTE | 2020-01-04 13:34 | PHA.DC.MR ---
Pharmacy Service has performed discharge medication reconciliation for this patient. The patient's discharge medication list was reviewed for discrepancies and discrepancies were resolved. Home Medications melatonin 10 mg capsule 10 mg PO HS PRN 05/05/19 citalopram 20 mg tablet 20 mg PO DAILY #30 tab 12/12/19 diclofenac sodium 75 mg tablet,delayed release 75 mg PO BID PRN #60 tab 12/12/19 omeprazole 20 mg capsule,delayed release 20 mg PO DAILY #30 cap 12/12/19 triamterene 37.5 mg-hydrochlorothiazide 25 mg tablet 1 tab PO DAILY PRN 12/12/19 loratadine 10 mg tablet 10 mg PO DAILY PRN #30 tab 12/25/19 hydroxyzine HCl 25 mg tablet 25 mg PO BID PRN #14 tab 01/02/20 losartan 50 mg tablet See Rx Instructions .ROUTE .COMPLEX #90 tab 01/02/20 Acetaminophen [Tylenol Tablet] 650 mg PO Q6H PRN PRN tab 01/04/20
== END 2020-01-04 13:10 | disposition home or self-care (01) ==
LOC: ED 12:02 → PCU 14:21
PROVIDERS: Emergency Provider Emergency Medicine; PCP Internal Medicine; Visit Provider Internal Medicine
DX: R07.89 Other chest pain (principal); I10 Essential (primary) hypertension; R06.02 Shortness of breath; R42 Dizziness and giddiness; F32.9 Major depressive disorder, single episode, unspecified; E78.5 Hyperlipidemia, unspecified; Z79.899 Other long term (current) drug therapy; G47.30 Sleep apnea, unspecified; M19.90 Unspecified osteoarthritis, unspecified site; F17.210 Nicotine dependence, cigarettes, uncomplicated; F10.10 Alcohol abuse, uncomplicated; M06.9 Rheumatoid arthritis, unspecified
CPT/HCPCS: 36415; 71045; 80048; 84484; 85025; 85379; 93005; 93017; 93350; 96360; 96361; 99218; 99285; 99406; J7030; Q9957; A4216; C8928; G0378

== ENCOUNTER → 2020-01-09 | Outpatient (CLI) | payer BC, SELFPAY ==
[2020-01-03 14:00] VITALS: BMI 27.3
== END | disposition home or self-care (01) ==
LOC: LABSPEC 01-11 13:55
PROVIDERS: PCP Internal Medicine; Referring Provider Internal Medicine; Visit Provider Internal Medicine
DX: R05 Cough (principal); R42 Dizziness and giddiness; R06.02 Shortness of breath
CPT/HCPCS: 87635; C9803; U0003

== ENCOUNTER 2020-02-06 17:00 | Outpatient (RCR) | payer BC, SELFPAY ==
[2020-01-24 14:31] VITALS: BMI 27.7
--- NOTE | 2020-01-26 13:51 | HP.PTEVAL ---
Patient's Visit Information HAYDEN PENDLETON is a 54 year old M referred to Physical Therapy by SHIKHA HinojosaC with a diagnosis of BPV. Date of Evaluation: 01/26/20 Physical Therapist: Yordan Tran, NIKT, OCS, CSCS - Visit Plan Frequency: 1x/Week Duration: 4 Weeks Plan: Pt not symptomatic and unable to reproduce symtpoms in evaluation today. Based on subjective history, sounds like he had BPPV although this would not explain SOB. Either way, he is asymptomatic today and improving 95% at this point. I plan to f/u in two weeks to ensure continued improvement and then d/c unless other findings on that day. Pt to call prior if symptoms return. - Subjective Off work due to vertigo. Had this episode started 01/02. 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 Worsening for a week later. Can't take meclizine. Saw Neurologist for vertigo whcih he has had in the past. Worked and Wednesday that week adn went to ER with chest pain on that Wednesday. Had EKG adn was doing well, stress test went well. No catscan or MRI but has had in the past and found nothing. Now described as unable to stand a week ago due to balance. Also spins at times R to L counterclockwise. Has been off work since Jan 02 and has gotten better over the last week. Is 95% back to normal. Still feels a little woozy at times. 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 Not sure he could make it worse right now. Activities at home include yard work and heaters changing but cannot do it at this time. Says short of breath is limiting factor right now and he still could not do outdoor work despite 95% improvement. Basic aDLs getting done at home. Had dizzyness for 15 years once to twice a year. Missed time in May with this problem. - Objective Walks into therapy normal and easy. Steps reciprocal without rail. Transfers I. Cervical AROM without pain is WNL. Full UE AROM without a problem. - B hallpike emanuel. - roll test. MSQ positions not a problem or symptomatic. Oculomotor: normal convergence. - skew eye deviation. - ocular tilt. Pursuit and saccades seem normal. VOR is fast and asymptomatic horizontal and vertical. - Balance Scores Functional Gait Assessment Score: 30 % Disability: 0 - Goals Goal 1:: Pt feel 100% back to normal and ready to return to work. Goal Time Frame: 2-4 Weeks Goal 2:: DHI socre less than 25% disability. Goal Time Frame: 2-4 Weeks - Rehabilitation Potential Physical Therapy Diagnosis: resolved BPPV Rehabilitation Potential: Fair - Anticipated Interventions Patient/Client Instruction: Educate patient on: Condition, Plan of Care For the Purpose of:: To increase tolerance to activity/condition/position, To improve gait and locomotor functions Comment: postional treatments as needed. For the Purpose of:: To increase tolerance to activity/condition/position Thank you for the opportunity to evaluate your patient. For Medicare and Medicare HMO plans, please review the plan of care and approve it. It will need to be FAXED BACK to us at [phone] for Medicare purposes. For Medicare only, by signing this I certify the plan of care. Please let me know if there are questions or concerns regarding this plan of care. Physician Signature: Date:
--- NOTE | 2020-02-06 17:35 | HP.PTDCSUM ---
It has been my pleasure to treat HAYDEN PENDLETON referred by SEBASTIÁN Hinojosa, with the diagnosis of BPV for a total of 2 visit(s). Discharge Date: 02/06/20 Please see the following information for a summary of their discharge status. Subjective: No dizzyness in ast 11 days. Activities are normal. No trouble sleeping or rolling in bed. No prblem bending. SOB can still be an issue most of time if walks outside. Happening for about a month. Neurologist recommended no smoking or drinking. Seems like just time has helped. Does not feel like he usually does though and that is the last 5%. % Improvement: 95 Objective/Function: No dizzyness created today with any MSQ psoitions. Balance is good. - B hallpike emanuel adn roll test. Oculomotr is unremarkable and normal today. no nystagmus, no symptoms or problems with quality in gaze, VOR, head shake, pursuit, saccades or convergence. - skew eye deviation. - ocular tilt Goal 1:: Pt feel 100% back to normal and ready to return to work. Goal Progress: 95% Goal 2:: DHI socre less than 25% disability. Goal Progress: Goal Met Plan: d/c, unable to reproduce any symptoms or problems today, possibly resolved BPPV. Discharge Comments: Pt doing well. Consider therapy again if symptoms return. If there are questions or concerns regarding this patient's physical therapy, please feel free to call me at [phone]. Thank you for the referral of this patient. Sincerely, Yordan Tran, DPT, OCS, CSCS
== END 2020-02-06 19:00 | disposition home or self-care (01) ==
LOC: PT 17:00
PROVIDERS: PCP Internal Medicine; Referring Provider Nurse Practitioner Family; Visit Provider Nurse Practitioner Family
DX: H81.10 Benign paroxysmal vertigo, unspecified ear (principal)
CPT/HCPCS: 97162; 97530

== ENCOUNTER → 2020-02-14 | Outpatient (CLI) | payer BC, SELFPAY ==
[2020-01-24 14:31] VITALS: BMI 27.7
== END | disposition home or self-care (01) ==
LOC: LABSPEC 17:26
PROVIDERS: PCP Internal Medicine; Visit Provider Internal Medicine Gastroenterology
DX: Z11.59 Encounter for screening for other viral diseases (principal)
CPT/HCPCS: 87635; C9803; U0003

== ENCOUNTER → 2020-02-19 13:29 | Outpatient (CLI) | payer BC, SELFPAY ==
[2020-01-24 14:31] VITALS: BMI 27.7
--- NOTE | 2020-02-19 13:33 | RAD_ITS ---
STUDY: X-RAY - RIGHT KNEE REASON FOR EXAM: Male, 54 years old. right knee pain, no injury TECHNIQUE: 4 view(s) of the knee. COMPARISON: None. FINDINGS: Normal visualized distal femur. Normal visualized proximal tibia and fibula. Normal proximal tibiofibular articulation. There is no demonstrated fracture. Spurring at the anterior and superior patella. Mild spurring at the intercondylar eminence of tibia. Normal medial femorotibial compartment. Normal lateral femorotibial compartment. Normal patellofemoral articulation. There is mild joint effusion. The soft tissue structures are unremarkable. RAD/Knee 4 or More Views IMPRESSION: Minor degenerative disease. No acute fracture or subluxation. Mild joint effusion. Electronically Signed: Citlaly Fulton MD at 0:25 EST , Service support ,
--- NOTE | 2020-02-19 13:40 | RAD_ITS ---
STUDY: X-RAY - LEFT KNEE REASON FOR EXAM: Male, 54 years old. left knee pain, nki. TECHNIQUE: 4 view(s) of the knee. COMPARISON: None. FINDINGS: Normal visualized distal femur. Normal visualized proximal tibia and fibula. Normal proximal tibiofibular articulation. There is no demonstrated fracture. There is mild spurring at the anterior and superior patella. Normal medial femorotibial compartment. Normal lateral femorotibial compartment. Normal patellofemoral articulation. There is no demonstrated joint effusion. The soft tissue structures are unremarkable. RAD/Knee 4 or More Views IMPRESSION: Minimal patellar spurring. Otherwise normal x-ray examination of the knee. Electronically Signed: Citlaly Fulton MD at 0:26 EST , Service support ,
== END ==
PROVIDERS: PCP Internal Medicine; Referring Provider Psychiatry & Neurology Neurology; Visit Provider Psychiatry & Neurology Neurology
DX: M25.561 Pain in right knee (principal); M06.9 Rheumatoid arthritis, unspecified; M25.562 Pain in left knee
CPT/HCPCS: 73564

== ENCOUNTER → 2020-06-24 15:05 | Outpatient (CLI) | payer BC, SELFPAY ==
[2020-06-24 14:08] VITALS: BMI 28.0
[2020-06-24 16:45] LABS: Absolute Lymphocyte Count 2.71 X10^3/uL (0.83-4.51); Absolute Neutrophil Count 4.4 X10^3/uL (2.0-7.7); Basophil# 0.11 X10^3/uL; Basophil% 1.4 % (0-1); Eosinophil# 0.38 X10^3/uL; Eosinophils% 4.7 % (0-5); Hematocrit 41.8 % (40-54); Hemoglobin 14.2 g/dL (13.0-16.5); Lymphocyte # 2.71 X10^3/ul (0.83-4.51); Lymphocyte % 33.5 % (19-41); Mean Corpuscular Hgb 28.8 pg (27.0-32.0); Mean Corpuscular Volume 84.8 fL (80-94); Mean Platelet Vol. 10.1 fl (6.2-12.0); Monocyte# 0.43 X10^3/uL; Monocyte% 5.3 % (0-10); NRBC Flagged by Analyzer 0 % (0-5); Neutrophil # 4.43 X10^3/uL (2.7-7.7); Neutrophil % 54.7 % (47-70); Platelet Count 317 K/mm3 (150-450); RBC Distribution Width CV 14.4 % (11.6-14.6); RBC Distribution Width SD 43.8 fl (35.1-43.9); Red Blood Count 4.93 M/mm3 (4.6-6.2); White Blood Count 8.1 K/mm3 (4.4-11.0)
[2020-06-24 17:03] LABS: ALB/GLOB Ratio 1.1 RATIO (0.9-2.4); AST(SGOT) 14 U/L (15-37); Alanine Aminotransfer ALT/SGPT 25 U/L (16-61); Albumin, Serum 4.1 g/dL (3.2-5.0); Alkaline Phosphatase 78 U/L (45-117); Anion Gap 7 (5-15); BUN 17 mg/dL (7-18); BUN/Creat Ratio 14.5 RATIO (10-20); Calcium,Total 9.5 mg/dL (8.5-10.1); Chloride 102 mmol/L (98-107); Creatinine, Serum 1.17 mg/dL (0.70-1.30); EST Glomerular Filtration Rate 69 mL/min (>60); Est Glom Filt Rate - Afr Amer 84 mL/min (>60); Globulin 3.8 g/dL (2.2-4.2); Glucose 94 mg/dL (74-106); Potassium 3.7 mmol/L (3.5-5.1); Protein, Total 7.9 g/dL (6.4-8.2); Sodium Level 135 mmol/L (136-145); Thyroid Stim Hormone (TSH) 3.18 uIU/mL (0.358-3.74)
== END ==
PROVIDERS: Physician Assistant; PCP Internal Medicine; Visit Provider Internal Medicine
DX: R06.00 Dyspnea, unspecified (principal)
CPT/HCPCS: 36415; 80053; 84443; 85025

== ENCOUNTER 2020-07-14 10:30 | Emergency (ER) | payer BC, SELFPAY ==
[2020-06-24 14:08] VITALS: BMI 28.0
[2020-07-14 10:31] VITALS: BP 118/72; PULSE 84; RESP 14; TEMP 36.3; O2SAT 99; BMI 27.0
--- NOTE | 2020-07-14 10:46 | CT_ITS ---
EXAM: CT ANGIOGRAPHY CHEST WITHOUT AND WITH INTRAVENOUS CONTRAST CLINICAL INDICATION: Dyspnea. TECHNIQUE: Helically acquired angiography images were obtained of the chest without and with intravenous contrast. This CT exam was performed using one or more of the following dose reduction techniques: automated exposure control, adjustment of the mA and/or kV according to patient size, and/or use of iterative reconstruction technique. This report was created using [employer] report generation technology. MIP reconstructed images were created and reviewed. CONTRAST: IV 100mL [id number] COMPARISON: None. FINDINGS: PULMONARY ARTERIES: Unremarkable. Normal in caliber. No evidence of pulmonary embolism. AORTA: Unremarkable. Normal in caliber. No evidence of dissection. GREAT VESSELS OF AORTIC ARCH: Unremarkable. Normal in caliber. No evidence of dissection. LUNGS AND PLEURAL SPACES: A row of calcified granulomas in the superior segment of the right lower lobe. No mass. No pleural effusion or thickening. No pneumothorax. HEART: Unremarkable. Heart size is normal. No pericardial effusion. No signs of right heart strain. MEDIASTINUM: See below. THYROID: Unremarkable. No thyroid lesions. BONES/JOINTS: Unremarkable. No suspicious lytic or blastic abnormality. LYMPH NODES: Calcified nodes in the right hilum. Prominent calcified subcarinal nodes. CT/CTA Chest W/WO Contrast IMPRESSION: 1. No CTA evidence of pulmonary thromboemboli, thoracic aortic aneurysm or dissection. 2. No acute cardiopulmonary pathology. 3. Calcified nodes in the subcarinal space and right hilum. 4. Calcified granulomas in the superior segment of the right lower lobe. Electronically Signed: Bill Roberts MD at 11:54 EDT , Service support ,
--- NOTE | 2020-07-14 10:46 | EKG12_ITS ---
Test Reason : CP Blood Pressure : / mmHG Vent. Rate : 090 BPM Atrial Rate : 090 BPM P-R Int : 174 ms QRS Dur : 086 ms QT Int : 368 ms P-R-T Axes : 038 067 021 degrees QTc Int : 450 ms Sinus rhythm with Premature atrial complexes with Aberrant conduction Nonspecific ST abnormality Abnormal ECG Confirmed by ALEXANDRE HU, LENIN ([id number]), photograph editor PETR TRINIDAD ([id number]) on 07/16/2020 9:07:54 AM Referred By: Sadia Dwyer Confirmed By:LENIN SCHROEDER MD
--- NOTE | 2020-07-14 10:47 | EDS_ITS ---
HPI History of Present Illness Chief Complaint: Chest Pain Informant: patient Narrative Narrative: 55-year-old male presents with greater than 6-month history of chest pain and shortness of breath. Patient states that last fall he had a Medrol pack for vertigo prescribed by his neurologist. He states that 2 days into it he developed dyspnea and central chest tightness. States he does not feel he can get enough air. He states that before the Medrol he could work in the yard for hours. Now he states he has to be very careful with any type of exertion including at work. He finds the facemask extremely restricting of his air. He had a stress test last fall that was negative. He does not recall if he had exertional symptoms with that test. He saw his doctor recently and is supposed to have a CAT scan of his chest. He notes that he has been smoking since the age of 17. He notes heat and humidity can make his breathing worse. [facility] Medical History (Updated 07/14/20 @ 12:[address] Garcia Mccurdy DO) Arthritis Back pain Bloody stool Colitis Depression Difficulty balancing Difficulty balancing when standing Fatigue Hay fever Hemorrhoids history of broken right hip History of stress test Hypertension Knee pain Shoulder pain Sleep apnea SOB (shortness of breath) Stomach ulcer Vertigo Home Medications acetaminophen 650 mg PO Q6H PRN PRN tab 01/04/20 [Rx Last Taken Unknown] aspirin 81 mg tablet,delayed release 81 mg PO DAILY 02/26/20 [History Last Taken Unknown] losartan 50 mg tablet See Rx Instructions .ROUTE .COMPLEX #90 tab 04/18/20 [Rx Last Taken Unknown] citalopram 40 mg tablet 40 mg PO DAILY #30 tab 06/11/20 [Rx Last Taken Unknown] omeprazole 40 mg capsule,delayed release 40 mg PO DAILY #30 cap 06/11/20 [Rx Last Taken Unknown] albuterol sulfate [Ventolin HFA] 2 puff INHALATION Q4H PRN PRN #1 inhaler 07/14/20 [Rx Last Taken Unknown] Allergy/AdvReac Type Severity Reaction Status Date / Time oxycodone [From OxyContin] Allergy Rash Verified 07/14/20 10:31 steroids Allergy flush, Uncoded 07/14/20 10:31 insomnia, irregular heartbeat Family History Other Arthritis CVA (cerebral vascular accident) Depression Hypertension Surgical History History of nasal surgery History of orthopedic surgery History of repair of hip joint Social History Smoking Status: Current every day smoker alcohol intake: current alcohol intake frequency: holidays/special occasions only substance use type: marijuana what type of physical activity do you participate in: none ROS ROS ED Constitutional Constitutional ED: Denies chills or weight loss Eyes Eyes: Denies change in vision or diplopia ENT ENT ED: Denies ear pain, rhinorrhea or sore throat Cardiovascular Cardiovascular: Reports chest pain; Denies orthopnea, palpitations or racing heartbeat Respiratory/Chest Respiratory/Chest: Reports dyspnea; Denies cough or orthopnea Gastrointestinal Gastrointestinal: Denies abdominal pain, diarrhea, nausea or vomiting Genitourinary Genitourinary ED: Denies dysuria, hematuria or urinary frequency Musculoskeletal Musculoskeletal: Denies arthralgias or myalgias Integumentary Denies abscess or rash Neurologic Neurologic: Denies headache(s) or weakness Psychiatric Psychiatric: Denies anxiety, depression, suicidal ideation or suicidal thoughts Endocrine Endocrinology: Denies polydipsia, polyphagia or polyuria Allergic/Immunologic Allergic/Immunologic ED: Denies mouth swelling, tongue swelling or urticaria EXAM Physical Exam Const Vital Signs: 07/14/20 10:31 07/14/20 10:56 07/14/20 11:03 Temperature 97.3 F L Temperature Source Temporal Pulse Rate 84 87 83 Respiratory Rate 14 14 17 Respiratory Effort Normal Respiratory Pattern Normal Blood Pressure 118/72 128/80 H Blood Pressure Mean 87 96 Pulse Ox 99 96 Oxygen Delivery Method Room Air Room Air Positive well nourished and well developed General Appearance ED: well developed HEENT Reports normocephalic, head/scalp atraumatic and moist mucous membranes Eyes PERRL and EOMs intact bilaterally Neck no lymphadenopathy, supple and no JVD Resp normal respiratory effort and clear to auscultation bilaterally Cardio regular rate, regular rhythm and no murmurs GI normal to inspection, nondistended, normoactive bowel sounds and non-tender Palpation: soft Back/Spine no CVA tenderness and normal ROM Extremity normal to inspection General Extremety ED: Negative for edema General Extremity: Negative for edema Neuro oriented x3 and CN's II-XII intact bilaterally Sensorium / Orientation: alert Motor Exam: strength 5/5 throughout Psych mental status grossly normal Mood & Affect: anxious; Negative for depressed or tearful Skin no rashes or lesions noted and no wounds MDM MDM MDM Narrative Medical decision making narrative: Patient was observed on the monitor. He has had intermittent runs of ventricular bigeminy. Patient's troponin is negative. His CTA of the chest with some calcified granulomas. I gave him a DuoNeb. He states initially it did not do much for him but as he sat here he feels that he can definitely breathe much better. It is reasonable to have him see pulmonology. I am also can write for an albuterol MDI for him to use until he can see them. He is comfortable with this plan. Lab Data Labs: Laboratory Results - last 24 hr 07/14/20 07/14/20 11:02 11:02 WBC 6.5 RBC 4.66 Hgb 13.6 Hct 38.1 L MCV 81.8 MCH 29.2 MCHC 35.7 RDW Std Deviation 42.3 RDW Coeff of Afsaneh 14.4 Plt Count 329 MPV 9.8 Immature Gran % (Auto) 0.600 Neut % (Auto) 55.6 Lymph % (Auto) 31.2 [place] % (Auto) 4.7 Eos % (Auto) 6.2 H Baso % (Auto) 1.7 H Absolute Neuts (auto) 3.6 Absolute Lymphs (auto) 2.01 Nucleated RBC % 0 Sodium 139 Potassium 3.7 Chloride 107 Carbon Dioxide 24.0 Anion Gap 8 BUN 15 Creatinine 1.21 Estim Creat Clear Calc 79.79 Est GFR (MDRD) Af Amer 81 Est GFR (MDRD) Non-Af 67 BUN/Creatinine Ratio 12.4 Glucose 104 Calcium 8.6 Total Bilirubin 0.40 AST 18 ALT 24 Alkaline Phosphatase 73 Troponin I < 0.015 Total Protein 7.2 Albumin 3.7 Globulin 3.5 Albumin/Globulin Ratio 1.1 Radiography Diagnostic Testing: Radiology Impression Chest CTA 07/14/20 10:46 IMPRESSION: 1. No CTA evidence of pulmonary thromboemboli, thoracic aortic aneurysm or dissection. 2. No acute cardiopulmonary pathology. 3. Calcified nodes in the subcarinal space and right hilum. 4. Calcified granulomas in the superior segment of the right lower lobe. Electronically Signed: Bill Roberts MD at 11:54 EDT , Service support , EKG Initial EKG: Attestation: I personally reviewed and interpreted this EKG as follows: Comments: EKG is a sinus rhythm with PACs at a rate of 90. Discharge Plan Triage Chief Complaint: Chest Pain ED Provider: Garcia Mccurdy Dx/Rx/DC Orders Clinical Impression: Chest pain, Acute dyspnea Instructions: ED Dyspnea Prescriptions: New albuterol sulfate [Ventolin HFA] 1 INHALER inhaler 2 puff inhalation Q4H PRN PRN (Reason: Wheezing) Qty: 1 RF: 0 No Action citalopram 40 mg tablet 40 mg PO DAILY Qty: 30 RF: 3 omeprazole 40 mg capsule,delayed release(DR/EC) 40 mg PO DAILY Qty: 30 RF: 4 aspirin [Adult Low Dose Aspirin] 81 mg tablet,delayed release (DR/EC) 81 mg PO DAILY RF: 0 acetaminophen 325 MG tablet 650 mg PO Q6H PRN PRN (Reason: Pain Score 1-10/Temp > 100.7 F) RF: 0 losartan 50 mg tablet See Rx Instructions .ROUTE .COMPLEX Qty: 90 RF: 0 Primary Care Provider: Quang Hanson Referrals: Bill Avery MD [STAFF PHYSICIAN] - As soon as possible Quang Hanson MD [Primary Care Provider] - Disposition Disposition: Home, self care
[2020-07-14 10:56] VITALS: BP 128/80; PULSE 87; RESP 14; O2SAT 96
[2020-07-14] MEDS: Ipratropium/Albuterol Sulfate 3 ML AMPUL.NEB INHALATION (11:02)
[2020-07-14 11:03] VITALS: PULSE 83; RESP 17
[2020-07-14 11:10] LABS: Absolute Lymphocyte Count 2.01 X10^3/uL (0.83-4.51); Absolute Neutrophil Count 3.6 X10^3/uL (2.0-7.7); Basophil# 0.11 X10^3/uL; Basophil% 1.7 % (0-1); Eosinophils% 6.2 % (0-5); Hematocrit 38.1 % (40-54); Hemoglobin 13.6 g/dL (13.0-16.5); Lymphocyte # 2.01 X10^3/ul (0.83-4.51); Lymphocyte % 31.2 % (19-41); Mean Corp Hgb Conc 35.7 g/dL (32-36); Mean Corpuscular Hgb 29.2 pg (27.0-32.0); Mean Corpuscular Volume 81.8 fL (80-94); Mean Platelet Vol. 9.8 fl (6.2-12.0); Monocyte% 4.7 % (0-10); NRBC Flagged by Analyzer 0 % (0-5); Neutrophil # 3.59 X10^3/uL (2.7-7.7); Neutrophil % 55.6 % (47-70); Platelet Count 329 K/mm3 (150-450); RBC Distribution Width CV 14.4 % (11.6-14.6); RBC Distribution Width SD 42.3 fl (35.1-43.9); Red Blood Count 4.66 M/mm3 (4.6-6.2); White Blood Count 6.5 K/mm3 (4.4-11.0)
[2020-07-14 11:28] LABS: ALB/GLOB Ratio 1.1 RATIO (0.9-2.4); AST(SGOT) 18 U/L (15-37); Alanine Aminotransfer ALT/SGPT 24 U/L (16-61); Albumin, Serum 3.7 g/dL (3.2-5.0); Alkaline Phosphatase 73 U/L (45-117); Anion Gap 8 (5-15); BUN 15 mg/dL (7-18); BUN/Creat Ratio 12.4 RATIO (10-20); Calcium,Total 8.6 mg/dL (8.5-10.1); Chloride 107 mmol/L (98-107); Creatinine, Serum 1.21 mg/dL (0.70-1.30); EST Glomerular Filtration Rate 67 mL/min (>60); Est Glom Filt Rate - Afr Amer 81 mL/min (>60); Estimated Creatinine Clearance 79.79 ml/min; Globulin 3.5 g/dL (2.2-4.2); Glucose 104 mg/dL (74-106); Potassium 3.7 mmol/L (3.5-5.1); Protein, Total 7.2 g/dL (6.4-8.2); Sodium Level 139 mmol/L (136-145)
== END 2020-07-14 12:50 | disposition home or self-care (01) ==
PROVIDERS: Emergency Provider Emergency Medicine; PCP Internal Medicine
DX: R07.89 Other chest pain (principal); R06.00 Dyspnea, unspecified; I49.1 Atrial premature depolarization; I10 Essential (primary) hypertension; F32.9 Major depressive disorder, single episode, unspecified; M19.90 Unspecified osteoarthritis, unspecified site; G47.30 Sleep apnea, unspecified; Z87.19 Personal history of other diseases of the digestive system; Z79.82 Long term (current) use of aspirin; Z79.899 Other long term (current) drug therapy; F17.200 Nicotine dependence, unspecified, uncomplicated
CPT/HCPCS: 71275; 80053; 84484; 85025; 93005; 94640; 99284; J7030; Q9967; A4216

== ENCOUNTER → 2020-07-19 10:22 | Outpatient (CLI) | payer BC, SELFPAY ==
[2020-06-24 14:08] VITALS: BMI 28.0
[2020-07-19 06:10] VITALS: BMI 26.9
[2020-07-19 10:58] LABS: Rheumatoid Factor < 10.0 IU/mL (<15)
--- NOTE | 2020-07-19 14:37 | PFTCOMP_ITS ---
COMPLETE PULMONARY FUNCTION TEST INTERPRETATION Brief HPI: Patient is a 55 year old male, currently under the care of Hope Dwyer, who presents to [facility] for complete pulmonary function tests secondary to diagnosis of dyspnea. Respiratory therapist reports good effort and reproducible results. Interpretation: Forced expiration spirometry shows no large airways obstructive ventilatory defect with an FEV1 of 104% predicted. There is no significant bronchodilator response by strict ATS criteria. Spirograms are of good quality and plateau normally. The respiratory flow volume loop shows a normal pattern. Lung volumes by body plethysmography show a normal total lung capacity at 7.23 L, 97% predicted. All other lung volumes are within normal limits. Diffusion capacity by carbon monoxide is normal at 106% predicted. The airway resistance is normal. No previous pulmonary function tests were available for review. Impression: These pulmonary function tests are within normal limits
[2020-07-20 16:08] LABS: ANTINUCLEAR ANTIBODIES DIRECT Positive (Negative); Anti-Centromere B Ab 0.7 AI (0.0-0.9); Anti-Chromatin <0.2 AI (0.0-0.9); Anti-Jo <0.2 AI (0.0-0.9); Anti-Scleroderma-70 AB <0.2 AI (0.0-0.9); RNP Ab <0.2 AI (0.0-0.9); SJOGREN'S Anti-SS-A test < 0.2 AI (0.0-0.9); SJOGREN'S Anti-SS-B test < 0.2 AI (0.0-0.9); Smith Ab <0.2 AI (0.0-0.9)
[2020-07-20 17:32] LABS: Anti-dsDNA Ab 14 IU/mL (0-9)
[2020-07-24 10:27] LABS: CCP IgG Antibodies 10 units (0-19); Perinuclear Ab (P-ANCA) <1:20 titer (Neg:<1:20)
== END ==
PROVIDERS: Internal Medicine Critical Care Medicine; PCP Internal Medicine; Referring Provider Physician Assistant; Visit Provider Physician Assistant
DX: R06.00 Dyspnea, unspecified (principal)
CPT/HCPCS: 36415; 86038; 86200; 86225; 86235; 86256; 86431; 94060; 94726; 94729

== ENCOUNTER → 2020-08-01 09:51 | Outpatient (CLI) | payer BC, SELFPAY ==
[2020-07-19 06:10] VITALS: BMI 26.9
--- NOTE | 2020-08-01 09:52 | ECHOD_ITS ---
Reason For Study: DYSPNEA/SOB Procedure This was a 2D Doppler, Color Flow transthoracic echocardiogram. The study was technically difficult. Exam performed in department. Left Ventricle Normal LV size. Left ventricular systolic function is normal. The estimated ejection fraction is 60 %. Diastolic function is indeterminate. No regional wall motion abnormalities noted. Right Ventricle Normal RV size. Normal systolic function. Atria Normal left atrium. Normal right atrium. No doppler evidence for ASD. Mitral Valve There is no mitral annular calcification. Normal mitral valve. Trivial mitral valve insufficiency. Tricuspid Valve Normal tricuspid valve. Trivial tricuspid valve insufficiency. Unable to estimate RV systolic pressure/pulmonary artery pressure due to technically difficult study. Aortic Valve Trisinus/trileaflet aortic valve. Mild focal aortic valve calcification. Trivial aortic valve insufficiency. Pulmonic Valve The pulmonic valve is not well visualized. Great Vessels Normal sized aortic root. Pericardium/Pleural No pericardial effusion. MMode/2D Measurements & Calculations LVIDd: 4.5 cm IVSd: 1.1 cm Ao root diam: 3.7 cm LVIDs: 3.3 cm LVPWd: 1.1 cm RVDd: 3.1 cm FS: 26.9 % LAV(MOD-bp): 36.4 ml LA A4 area: 13.9 cm2 LA dimension(2D): 4.2 cm LAV(MOD-bp) Indexed: 16.8 ml/m2 LAV(MOD-sp2): 37.5 ml LAV(MOD-sp4): 33.3 ml RA A4 area: 14.7 cm2 Time Measurements MV dec time: 0.16 sec Doppler Measurements & Calculations MV E max william: 85.6 cm/sec Lat Peak E' William: 7.8 cm/sec Med Peak E' William: 7.3 cm/sec MV A max william: 88.3 cm/sec E/E' lat: 10.9 E/E' med: 11.7 MV E/A: 0.97 Ao V2 max: 105.6 cm/sec LV V1 max: 98.8 cm/sec PA V2 max: 167.4 cm/sec Ao max P.5 mmHg LV V1 max P.9 mmHg ECHO/Echo Complete Interpretation Summary The study was technically difficult. Left ventricular systolic function is normal. The estimated ejection fraction is 60 %. Trivial mitral valve insufficiency. Trivial tricuspid valve insufficiency. Mild focal aortic valve calcification. Unable to estimate RV systolic pressure/pulmonary artery pressure due to techni redd difficult study. Diastolic function is indeterminate. Ordering Physician: Fredy Montague Referring Physician: Quang Hanson Performed By: Blossom Stewart, ALEX, RVT
[2020-08-01 11:10] VITALS: PULSE 84; PULSE 90; PULSE 92; PULSE 93; PULSE 94; O2SAT 95; O2SAT 96; O2SAT 97; O2SAT 98
--- NOTE | 2020-08-01 14:18 | PCM.PSN.6M ---
PSN 6 Minute Walk Test 6 Minute Walk Test 6 Minute Walk Test: 6 Minute Walk Test PSN:6-Minute Walk Test Start: 08/01/20 11:10 Freq: Status: Active Protocol: [id number] Document 08/01/20 11:10 [facility] (Rec: 08/01/20 11:14 [facility] [id number]) 6 Minute Walk Test Date Performed 08/01/20 Time Performed 11:00 Height 6 ft 1 in Weight: 92.533 kg Weight in Pounds 204.[address]: Dr Montague Assistive device used: None Pre-test Oxygen Delivery Method Room Air Pulse Ox (%) 97 Pulse Rate (60-100 beats/min) 84 Dyspnea Taylor Scale (0-10) 1 Exertion Taylor Scale (6-20) 6 1st minute Oxygen Delivery Method Room Air Pulse Ox (%) 96 Pulse Rate (60-100 beats/min) 94 2nd minute Oxygen Delivery Method Room Air Pulse Ox (%) 95 Pulse Rate (60-100 beats/min) 92 3rd minute Oxygen Delivery Method Room Air Pulse Ox (%) 96 Pulse Rate (60-100 beats/min) 93 4th minute Oxygen Delivery Method Room Air Pulse Ox (%) 97 Pulse Rate (60-100 beats/min) 93 5th minute Oxygen Delivery Method Room Air Pulse Ox (%) 96 Pulse Rate (60-100 beats/min) 90 6th minute Oxygen Delivery Method Room Air Pulse Ox (%) 96 Pulse Rate (60-100 beats/min) 93 Dyspnea Taylor Scale (0-10) 3 Exertion Taylor Scale (6-20) 11 Reported Symptoms Increased Work of Breathing Post-test Oxygen Delivery Method Room Air Pulse Ox (%) 98 Pulse Rate (60-100 beats/min) 90 Full Laps Walked 16 Partial Lap, Number of Tiles Walked 13 Total Distance Walked (ft) 957 Interpretation Interpretation: Patient was able to ambulate 957 feet over the course of 6 minutes on room air with no assistive devices or breaks. The patient experienced no significant desaturation or tachycardia. These findings are consistent with a normal walking oximetry. Recommendations Recommendations: No supplemental oxygen is indicated at this time.
== END ==
PROVIDERS: PCP Internal Medicine; Referring Provider Internal Medicine Critical Care Medicine; Visit Provider Internal Medicine Critical Care Medicine
DX: R06.02 Shortness of breath (principal)
CPT/HCPCS: 93306; 94618

== ENCOUNTER → 2020-12-03 09:02 | Outpatient (CLI) | payer BC, SELFPAY ==
--- NOTE | 2020-12-03 09:07 | CR.ITP_ITS ---
Diagnosis - General Information Admitting Diagnosis: S/P CABG x 4 VESSEL @ [facility] Secondary Diagnosis: HYPERTENSION, HYPERLIPIDEMAI, RHEUMATOID ARTHRITIS, TOBACCO USE, MARIJUANA USE, ALCOHOL USE. Personal Learning Style:: Audio/Visual, Written Barriers to Learning: No Barriers Stage of change r/t lifestyle modifications:: Action Gave educational material for:: Treating Heart Disease, Emotions & Heart Disease, Stress Management & Relaxation, Sleep Disorders & Heart Disease, How The Heart Works, What it means to have Heart Disease, How Coronary Artery Disease is Diagnosed, Heart Procedures, What Heart Medications Do, Risk Factors & Modifications, Living an Active Life, Nutrition - Education/Goals Individual Counseling: Initial Assessment: Abnormal Cholesterol Levels, High Blood Pressure Cardiac Rehabilitation Goals: 1. Maintain the individual as the primary focus of care. 2. To improve the patient's quality of life. 3. Identification of cardiac risk factors and provide cardiac risk factor management. 4. Enhance the psychosocial status of the patient. 5. Reconditioning enough to allow the pat ient to resume customary activities. 6. Control symptoms of cardiac disease Personal Goals: Initial Assessment: Quit smoking (participate in smoking cessation - SMOKING CESSATION THERAPY REFERRAL, Improve energy level, Get back to work, or to resume activities faster, Improve muscle strength and endurance Scale for measuring improvement of personal goals: Enter appropriate number in Comments. 2 = Unchanged. 3 = Slightly Better. 4 = Moderate Improvement. 5 = Met my Goal - Diagnosis & Disease Process Outcomes/Goals: Pt IDs own risk factors & lifestyle modifications by Session 10, Verbalizes symptoms of angina & response by session 3., Pt independently manages Plan/Interventions: Assist Pt to ID & engage in lifestyle modification to reduce CVD risk, Instruct on individual risk factors, Review symptoms of angina & emergency actions, Review secondary diagnosis & identify educational needs. - Safety Referral to Physical Therapy: No Referral to [facility] Case Management: No Fall Risk Assessed:: Yes Assistive Devices:: None Exercise - Initial Assessment - Visit Date of Eval: 12/03/20 Session #:: 0 - PRE-CARDIAC REHAB EVALUATION Mets: Pre-: >7 METS for 30 minutes by discharge - Physician Prescribed Exercise Modalities: Treadmill, Rower, Airdyne, NuStep Frequency: 3x/week for 12 weeks [36 sessions] Intensity: 60-80% of age predicted maximum heart rate reserve Current METSs:: 4.0 Target Heart Rate:: 108-142 Resting Blood Pressure: 102/60 EKG Type: 12-LEAD EKG DONE TODAY - Outcomes & Goals Goals:: Verbalizes understanding of THR, RPE & goal METS by session 6, Documents in home exercise log/reports 30 min aerobic 5 day/wk by DC, Demonstrates accurate pulse taking by DC - Intervention & Plan Exercise Program Goals: Instruct on personal THR & RPE, Instruct on MET level & personal MET goal, Show patient to take own pulse /validate performance until accurate, Instruct on home exercise - Physical Activity Home Exercise Physical Activity - Home Exercise: Safe Exercise, Warm-up, Self-monitoring, Cool-Down, Home Exercise > 30 min Daily, Sitting Time <3 hours/daily - Outcomes & Goals Outcomes/Goals: Demonstrates correct Warm-up/exercise Cool-Down (S3) if = 2.5 METs, Verbalizes symptoms of exercise intolerance by Session 3 (S3), Demonstrate safe equipment use (S3) & follows exercise prescrition (6) - Intervention & Plan Plan/Intervention: Instruct warm-up & cool-down if exercising at > 2 METs, Instruct on symptoms of exercise intolerance & actions to take, Instruct & monitor on saf, Assess intial functional capacity & safety risk Nutrition - Initial Assessment - Program Goals Nutrition Program Goals: LDL <100 optimal. 100 - 129 Near optimal. 130 - 159 Borderline High. 160 - 189 High. Total Cholesterol <200 desirable. 200 - 239 Borderline High. >/= 240 High. HDL < 40 Low >/=60 High. Triglycerides <150 desirable. <199 optimal. VlDL 5 - 40. HgbA1C <7%. BMI <25 Patient has diagnosis of Hyperlipidemia (ICD E78)?: Yes - Visit Date of Assessment:: 12/03/20 Session #:: 0 - PRE-CARDIAC REHAB - Cholesterol/Lipids Triglycerides (mg/dL): 479 Total Cholesterol (mg/dL): 374 LDL Cholesterol (mg/dL): 261 HDL Cholesterol (mg/dL): 46 Determine presence & major risk factors that modify LDL goal: Cigarette smoking, Hypertension or hypertensive medication, Family history of premature CHD in Male < 55 years: female <65 yearsFa, Age men > 45 years; women >/= 55 years Outcomes/Goals: Pt IDs own risk factors & lifestyle modifications by Session 10, Verbalizes symptoms of angina & response by session 3., Pt independently manages Intervention/Plan: Instruct on personal lipid levels & lipid goals/NCEP guidelines, Instruct on cholesterol Referral to dietitian:: Yes - MEDICAL NUTRITION THERAPY - Diabetes (Other Core Measures) Diabetes Type: Not Applicable - Weight Mgt (Other Care) Not Applicable: Yes Height: 6 ft Weight:: 191 lb BMI: 25.9 Diagnosis Overweight/Obesity BMI> 30% ICD-10 E66: No Diagnosis High BMI/Morbid Obesity BMI> 35% ICD-10 Z68: No Outcomes/Goals: Pt sets, maintains & shows weight loss goal & trend during rehab Intervention/Plan: Instruct on ideal BMI & set weight loss goal w/patient, Assist pt to ID & incorporate diet changes for weight loss by S9, Encourage goal of using 250-300dcal per session for weight loss - Healthy Eating Habits Will attend diet classes:: Yes Outcomes/Goals:: Consume diet rich in vegs,fruits,whole grain/high fiber,fish,lean meat, Limit sat/trans fats,cholesterol & added salts & sugars Intervention/Plan:: Assess current eating habits - Education Gave educational materials for:: Healthy eating Nutrition - 30-Day Assessment Nutrition - 60-Day Assessment Nutrition - 90-Day Assessment Nutrition - Final Assessment Medical - Initial Assessment - Visit Date of Eval: 12/03/20 Session #:: 0 - PRE-CARDIAC REHAB - Medication Compliance Preventative Medication(s):: Aspirin, Statin/lipid, Beta ken[place] H/O mental health issues: depression, anxiety, or addiction?: No Doesn?t believe in the benefits of treatment?: No Believes medications are unnecessary or harmful?: No Has a concern about medication side effects?: No Expresses concern over the cost of medications?: No Outcomes/Goals: Verbalizes medications,desired effect & common side effects @ DC, Pt self-reports following medication regimen, Keeps card in wallet w/medications listed by DC Interventions/plans: Instruct on medication effects & side effects, Review medication list w/patient every two weeks, Instruct importance of taking meds as ordered & assist problem solving - Tobacco Use Tobacco Use: Cigarettes How many cigarettes do you smoke per day?: 10 Years Smokin Do you use smokeless tobacco?: No Outcomes/Goals: Smoking cessation achieved or maintained by discharge, Identify aids/strategies for achieving smoking cessation by session 6 Interventions/plan: Instruct on effects of smoking & provide smoking cessation resource, Assist pt to set quit date & provide encouragement, Assist pt to develop strategies to achieve/maintain quit date, Assist pt w/nicotine replacement & medication for cessation success - Hypertension Hypertension Diagnosis:: Hypertension ICD-10 I10 Resting Blood Pressure:: 102/60 Citizen [place] [employer] Hypertension Guidelines: Citizen [place] [employer] Hypertension Guidelines. Normal BP Less than 120/80. Elevated BP 120/80. Hypertension Stage 1: BP 130-139/80-89. Hypertesnion Stage 2: BP 140 or higher/90 or higher. Hypertension Crisis: BP higher than 180/120 Outcomes/Goals: Able to verbalize/achieve optimal blood pressure <130/80, Incorporates diet changes & exercise for blood pressure control by DC Interventions/plan: Instruct on optimal blood pressure, hypertension & medications, Instruct on effects of sodium, alcohol, stress, exercise &hypertension - Tobacco Cessation Referral Smoking Cessation Referral:: Yes Individual Education/Counseling:: Yes - MEDICAL NUTRITION & SMOKING CESSATION THERAPY Education Schedule Given:: Yes Medical- 30-Day Assessment Medical- 60-Day Assessment Medical- 90-Day Assessment Medical - Final Assessment Psychosocial - Initial Assess - VIsit Date of Eval: 12/03/20 Session #:: 0 - PRE-CARDIAC REHAB EVALUATION Not Applicable: Yes History of previous Mental disease:: No - Psychosocial Test Tool Used:: [employer] QOL Cardiac, PHQ-9 Questionnaire phq-9 Severity: Severity. 1-4 Minimal Depression. 5-9 Mild Depression. 10-14 Moderate Depression. 15-19 Moderately Sever Depression. 20-27 Severe Depression. Rule: - Referral to Behavioral Health PS - Interventions: Yes Referral to Physician if PHQ-9 if score is 5-9: - PHYSI MACHELLE REFERRAL FOR DEPRESSION STATUS POST CABG, Yes Attend Stress Management Classes, No Referral to Behavioral Health if PHQ-9 score >9:, No Referral to [facility] - Outcomes/Goals: See list Psychosocial Outcomes/Goals:: ID's personal stressors & 2 strategies to manage stress by discharge - Intervention/Plan: See List Interventions/Plan:: Assess stressors,coping strategies & signs of derpression on admission, Instruct/assist pt to develop coping & personal stress Mgt strategies, Instruct patient to recognize signs & symptoms of depression, Instruct patient to recog Psychosocial - 30-Day Assess Psychosocial - 60-Day Assess Psychosocial - 90-Day Assess Psychosocial - Final Assessmen Patient Health Questionnaire Initial Assessment 1. Little interest or pleasure in doing things: Several days 2. Feeling down, depressed, or hopeless: Several days 3. Trouble falling or staying asleep, or sleeping too much: More than half the days 4. Feeling tired or having little energy: More than half the days 5. Poor appetite or overeating: Not at all 6. Feeling bad about yourself -- or that you are a failure or have let yourself or your family down: Not at all 7. Trouble concentrating on things, such as reading the newspaper or watching television: Several days 8. Moving or speaking so slowly that other people could have noticed. Or the opposite - being so fidgety or restless that you have been moving around a lot more than usual: More than half the days 9. Thoughts that you would be better off , or of hurting yourself in some way: Not at all How difficult have these problems made it for you to do your work, take care of things at home, or get along with other people?: Not difficult at all Total Score: 9 LATISHA-Q SV Test - Statements CAD is a disease of the arteries in the heart: True Examples of risk factors for heart disease: I Don't Know Angina is chest pain or discomfort: I Don't Know The benefits of resistance training include: True Eating more meat and dairy products: False Anti-platelet medications such as aspirin are important: True The only effective way to manage stress: False An exercise warm-up slowly increases heart rate: I Don't Know Prepared, processed foods usually have high sodium: True Depression is common after a heart attack: True The statin medications lower cholesterol: True To control blood pressure, lower the amount of sodium: True If someone gets chest discomfort during walking: False Transfats are partially hydrogenated vegetable oils: I Don't Know Sleep apnea that is not treated increases the risk: I Don't Know To control cholesterol, one should become a vegetarian: I Don't Know Someone knows if he/she is exercising at the right level: I Don't Know Diabetes cannot be prevented with exercise & health eating: False Stress is a large risk for heart attack: True A diet that can help lower blood pressure is rich in: True - Total Score Total Correct Responses: 12 Self-Efficacy Initial Assessment We would like to know how confident you are in doing certain activities. Please select your confidence level for:: Select your confidence level for the following using the scale 1-10 where 1 is not at all confident and 10 is totally confident. Your score is the average of all 6 responses. Fatigue: How confident are you that you can keep the fatigue caused by your disease from interfering with the things you want to do? Select Number: 8 Physical Discomfort or Pain: How confident are you that you can keep the physical discomfort or pain of your disease from interfering with the things you want to do? Select Number: 9 Emotional Distress: How confident are you that you can keep the emotional distress caused by your disease from interfering with the things you want to do? Select Number: 9 Other Symptoms or Health Problems: How confident are you that you can keep other symptoms or health problems from interfering with the things you want to do? Select Number: 9 Different Tasks and Activities: How confident are you that you can do the different tasks and activities needed to manage your health condition so as to reduce your need to see a doctor? Select Number: 8 Medication: How confident are you that you can do things other than just taking medication to reduce how much your illness affects your everyday life? Select Number: 5 Total Score:: 8 Nutrition Survey - Nutrition Survey Initial Have you lost >10 lbs over the past 2 months without trying?: No Are you following a special diet at home for diabetes, low fat, or low salt?: No Are you interested in meeting with a dietitian for help understanding your diet?: No Do you eat less than 3 meals a day?: Yes Do you eat fatty meats (almonte, sausage, ribs, etc), fried foods, desserts, large amounts of salad dressings, margarine, butter, or cheese most days?: No Do you have food allergies? [Enter types in comment field]: No Do you eat in restaurants more than 3 times a week?: No Do you season food with salt, seasoning salt, or garlic salt?: No Do you used canned, boxed, frozen meals, or soups, seasoning packets?: No Total Score:: 1
--- NOTE | 2020-12-03 09:08 | PCM.CR.HP2 ---
CR - History & Physical - General Arrival date:: 12/03/20 Arrival time:: 09:00 Date of Referral:: 11/11/20 Date of CR Evaluation:: 12/03/20 Referring Physician: DR. ANIYA FERRARA @ [facility] Primary Diagnosis: S/P 4 VESSEL CORONARY ARTERY BYPASS GRAFT - History of Present Cardiac Event Onset Date: Enter Onset Date of cardiac illnesses in Comment field below Coronary Artery Bypass Graft:: Yes - CABG X 4 VESSELS Type of Symptoms:: WENT IN FOR ROUTINE HEART CATH, WHEELED ME RIGHT OUT AND TO SURGERY. Were there any complications?: NO - Sleep Disorder Evaluation Hx of Sleep Apnea: Yes Do you snore loudly (louder than talking or can be heard through closed doors)?: Yes Do you often feel tired/ fatigued/ sleepy during daytime?: Yes Has anyone observed you stop breathing during sleep?: No History of Hypertension (for STOP score): Yes STOP Results: Positive - Medications Home Medications: Ambulatory Orders Medication Instructions Recorded albuterol sulfate 90 mcg/actuation 2 puff INHALATION Q4H PRN PRN #1 09/02/20 aerosol inhaler inhaler nabumetone 500 mg tablet 500 mg PO BID PRN #30 tab 09/12/20 citalopram 40 mg tablet 40 mg PO DAILY #90 tab 09/23/20 acetaminophen 500 mg tablet 1,000 mg PO BID PRN tab 11/22/20 aspirin 81 mg tablet,delayed 162 mg PO DAILY tab 11/22/20 release ezetimibe 10 mg tablet 10 mg PO DAILY tab 11/22/20 gabapentin 100 mg capsule 100 mg PO BID cap 11/22/20 magnesium 200 mg tablet 400 mg PO DAILY tab 11/22/20 melatonin 3 mg capsule 3 mg PO HS PRN 11/22/20 metoprolol tartrate 50 mg tablet 25 mg PO BID tab 11/22/20 rosuvastatin 20 mg tablet 20 mg PO QHS tab 11/22/20 - Allergies Allergies/Adverse Reactions: Allergies oxycodone [From OxyContin] Allergy (Verified 11/22/20 15:09) Rash prednisone Allergy (Verified 11/22/20 15:09) Flush, insomnia, irregular heartbeat, irritability Advanced Directives - Advanced Directives Power of [employer] Salesperson: No Living Will: No Advance Directives Information Provided: Yes Advance Directives on File: No DNR Order?:: No - MOLST See MOLST form: No Past Medical History - Covid-19 Screening Fever: No Unexplained muscle aches: No Current respiratory symptoms: No Upper respiratory infections symptoms: No Gastro-intestinal symptoms: No Axk-Immx-Skuhoa symptoms: No Has tested positive for COVID-19 in last 30 days: No Date of testin12/03/20 - NO VACCINATION / AGAINST VACCINATION Has High Risk Exposures ID'd by Health dept/Inf Control team: No 65 years or older:: No Lives in Assisted Living facility:: No Has a chronic lung disease or moderate to severe asthma:: No Has a serious heart condition:: Yes Immunocompromised:: No Severely obese (Body Mass Index of 40 or higher):: No Diabetic:: No Has chronic kidney disease undergoing dialysis:: No Has liver disease:: No - Past Medical Illness Medical History: Past Medical History (Last Updated 11/22/20 @ 16:45 by Genaro Olivas TRAFFIC SIGN SUPERVISOR, TRAFFIC SIGN SUPERVISOR-C) Anemia D64.9 Arthritis M19.90 Back pain M54.9 Bloody stool K92.1 CAD (coronary artery disease) I25.10 Chronic low back pain M54.5, G89.29 Colitis K52.9 Difficulty balancing R29.818 Difficulty balancing when standing R26.89 Fatigue R53.83 Hay fever J30.1 Hemorrhoids K64.9 history of broken right hip History of stress test Z92.89 Hypertension I10 Knee pain M25.569 Post-operative pain G89.18 Shoulder pain M25.519 Sleep apnea G47.30 SOB (shortness of breath) R06.02 Stomach ulcer K25.9 Tobacco use disorder F17.200 Vertigo R42 - Past Surgical History Surgical History: Past Surgical History (Last Reviewed 11/22/20 @ 15:16 by Hope Oliver) History of nasal surgery Z98.890 11/10 History of orthopedic surgery Z98.890 Rt Scapula History of quadruple bypass Z95.1 10/25/20 History of repair of hip joint Z98.890 Rt Hip - Family History Summary Family History: Family History (Last Reviewed 11/22/20 @ 15:16 by Hope Oliver) Other Arthritis CVA (cerebral vascular accident) Depression Hypertension Social History - Smoking History Smoking Status: Current every day smoker Years Smokin Packs Smoked per Day: 2 - CURRENTLY DOWN TO 0.5 PACKS; QUICK FOR 2 WEEKS AFTER SURGERY AND THEN RESTARTED Hx Tobacco Use: Yes Hx Smoking Exposure: No - Alcohol Use Alcohol Usage: Yes - Substance Abuse Hx Substance Use: Yes - MARIJUANA USE - Occupation Occupation (List type of work in comments):: Employed - Hobbies, Recreation, Social Activities Hobbies: Other - 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 Recreational Activities: I am able to engage in a few activities Social Environment - Status Marital Status: - Current Living Arrangements Living Environment:: Spouse - Children How many children do you have?: 2 Do any of your children live nearby?: Yes - Safety Do you feel safe in your surroundings?: Yes - Assistance Do you need any assistance at home?: NO Review of Systems - Review of Systems Hints: Right click = Denies (Slash). Left click = Reports ([place]) Review of Present Symptoms: Reports: Shortness of Breath with Exertion, Operative Discomfort - IN THE PECTORAL AREA BUT NOT MIDSTERNAL AND THE RIGHT LEG WHERE VEIN HARVEST WAS DONE., Dizziness/Lightheadedness, Fatigue, Appetite - Normal. Denies: Appetite - Special Diet - WATCHING DIET, NEVER HAS USED SALT. IF ANYTHING I PEPPER THINGS, Sleep - Normal - STILL SCREWED UP HAS DIFFICULTY FALLING ASLEEP EVEN LAYING IN THE BED, Sexual Changes - Pain Is Patient Pain Free?: No Pain Location: chest, lower extremity - RIGHT LEG Pain Level: 4/10 Risk Factor Assessment - Chief Complaint Chief Complaint: S/P CABG 4 VESSEL - Vital Signs Temperature: 97.6 F Respiratory Rate: 18 Pulse Ox: 98 Blood Pressure: 102/60 - Pulse Pulse Rate: 70 Pulse Rhythm: Regular - Hypertension How long have you been treated?: SEVERAL YEARS AGO. On medication(s)?: TWO MEDICATIONS Blood Pressure Sitting - Left Arm: 102/60 - Stress Stress: Recent - Blood Cholesterol/Lipids Total Cholesterol (mg/dL) Goal = less than 200 mg/dL: 374 HDL Cholesterol (mg/dL) Goal = less than 40 mg/dL: 46 LDL Cholesterol (mg/dL) Goal = less than 70 mg/dL: 261 Triglycerides (mg/dL) Goal = less than 150 mg/dL: 479 - Diabetes Nutrition Referral for Diabetes: No - Obesity Height: 6 ft 1 in Weight:: 191 lb Weight in Pounds: 191.0 lbs Weight Source: Standing Scale Body Mass Index (BMI): 25.2 - Physical Inactivity Physical Inactivity: Reg Exercise 30 min/day - WALKING - Risk Stratification Risk Guidelines: Lowest Risk: Risk Factor for Diabetes, Risk Factor for Obesity, Risk Factor for Hypertension, Risk Factor for Sedentary Lifestyle, Highest Risk: Risk Factor for Smoking, Risk Factor for Dyslipidemia - Family History Family History: Family History (Last Reviewed 11/22/20 @ 15:16 by Hope Oliver) Other Arthritis CVA (cerebral vascular accident) Depression Hypertension Motivation - Motivation to Participate On a scale of 1 to 10, how prepared are you to commit to attending program?: 10 What do you see as barriers to successfully being able to complete the program?: BREATHING - SHORTNESS OF BREATH What do you see as the benefits of succesfully completing the program? In other words, what do you hope to get out of participating in the program?: HEALTHIER MORE ENEGRY STRONGER Are there issues you are dealing with that will interfere with completing the program?: NO Do you have a spouse or signficant other, family or friends who will help support you to complete the program?: YES.
[2020-12-03 09:28] VITALS: BP 102/60; BMI 25.9
[2020-12-03 09:49] VITALS: BP 102/60; PULSE 70; RESP 18; TEMP 36.4; O2SAT 98; BMI 25.2
== END ==
PROVIDERS: PCP Internal Medicine
DX: I25.10 Atherosclerotic heart disease of native coronary artery without angina pectoris (principal); I10 Essential (primary) hypertension; M19.90 Unspecified osteoarthritis, unspecified site; G89.29 Other chronic pain; G47.30 Sleep apnea, unspecified; Z87.19 Personal history of other diseases of the digestive system; Z79.82 Long term (current) use of aspirin; Z79.899 Other long term (current) drug therapy; F17.200 Nicotine dependence, unspecified, uncomplicated

== ENCOUNTER 2020-12-20 10:30 | Outpatient (RCR) | payer BC, SELFPAY ==
[2020-12-03 09:28] VITALS: BMI 25.9
== END 2020-12-22 23:59 ==
LOC: CR 10:30
PROVIDERS: PCP Internal Medicine
DX: Z95.1 Presence of aortocoronary bypass graft (principal)
CPT/HCPCS: 93798

== ENCOUNTER 2021-01-20 10:30 | Outpatient (RCR) | payer BC, SELFPAY ==
[2020-12-03 09:28] VITALS: BMI 25.9
--- NOTE | 2021-01-01 10:26 | CR.ITP_ITS ---
Diagnosis Exercise - 30-day Assessment - Visit Date of Eval: 01/01/21 Session #:: 11 Comments:: Patient referred by Dr. Kalin Alonso to [facility]. However, the adriana has been released from his care. - Physician Prescribed Exercise Modalities: Treadmill, Airdyne, NuStep Frequency: 3x/week for 12 weeks [36 sessions] Intensity: 60-80% of age predicted maximum heart rate reserve Current METSs:: 5.0 increase from 4.0 Target Heart Rate:: 108-142 Current RPE:: 12-13 Maximum Excercise HR:: 99 Resting Blood Pressure: 130/72 Maximum Exercise Blood Pressure: 160/80 EKG Type: NST with occasional to frequent PVCs. Ventricular trigeminy noted. - Outcomes & Goals Goals:: Verbalizes understanding of THR, RPE & goal METS by session 6, Documents in home exercise log/reports 30 min aerobic 5 day/wk by DC, Demonstrates accurate pulse taking by DC - Intervention & Plan Exercise Program Goals: Instruct on personal THR & RPE, Instruct on MET level & personal MET goal, Show patient to take own pulse /validate performance until accurate, Instruct on home exercise - 30-day Reassessments 30 day Reassessments:: Progressing - Physical Activity Home Exercise Physical Activity - Home Exercise: Safe Exercise, Warm-up, Self-monitoring, Co ol-Down, Home Exercise > 30 min Daily, Sitting Time <3 hours/daily - Outcomes & Goals Outcomes/Goals: Demonstrates correct Warm-up/exercise Cool-Down (S3) if = 2.5 METs, Verbalizes symptoms of exercise intolerance by Session 3 (S3), Demonstrate safe equipment use (S3) & follows exercise prescrition (6) - Intervention & Plan Plan/Intervention: Instruct warm-up & cool-down if exercising at > 2 METs, Instruct on symptoms of exercise intolerance & actions to take, Instruct & monitor on saf, Assess intial functional capacity & safety risk - 30-day Reassessments 30 day Reassessments:: Progressing Nutrition - Initial Assessment Nutrition - 30-Day Assessment - Program Goals Nutrition Program Goals: LDL <100 optimal. 100 - 129 Near optimal. 130 - 159 Borderline High. 160 - 189 High. Total Cholesterol <200 desirable. 200 - 239 Borderline High. >/= 240 High. HDL < 40 Low >/=60 High. Triglycerides <150 desirable. <199 optimal. VlDL 5 - 40. HgbA1C <7%. BMI <25 Patient has diagnosis of Hyperlipidemia (ICD E78)?: Yes - Visit Date of Assessment:: 01/01/21 Session #:: 11 - Cholesterol/Lipids Triglycerides (mg/dL): 479 Total Cholesterol (mg/dL): 374 LDL Cholesterol (mg/dL): 261 HDL Cholesterol (mg/dL): 46 Determine presence & major risk factors that modify LDL goal: Cigarette smoking, Hypertension or hypertensive medication Outcomes/Goals: Pt IDs own risk factors & lifestyle modifications by Session 10, Verbalizes symptoms of angina & response by session 3., Pt independently manages Intervention/Plan: Instruct on personal lipid levels & lipid goals/NCEP guidelines, Instruct on cholesterol Referral to dietitian:: Yes 30-day Reassessments:: Progressing - Weight Mgt (Other Care) Not Applicable: Yes Height: 6 ft Weight:: 202 lb BMI: 27.3 Diagnosis Overweight/Obesity BMI> 30% ICD-10 E66: No Diagnosis High BMI/Morbid Obesity BMI> 35% ICD-10 Z68: No Outcomes/Goals: Pt sets, maintains & shows weight loss goal & trend during rehab Intervention/Plan: Instruct on ideal BMI & set weight loss goal w/patient 30 day Reassessments:: Met - Healthy Eating Habits Will attend diet classes:: Yes Outcomes/Goals:: Consume diet rich in vegs,fruits,whole grain/high fiber,fish,lean meat, Limit sat/trans fats,cholesterol & added salts & sugars Intervention/Plan:: Assess current eating habits 30-day Reassessments:: Progressing - Education Gave educational materials for:: Healthy eating Nutrition - 60-Day Assessment Nutrition - 90-Day Assessment Nutrition - Final Assessment Medical - Initial Assessment Medical- 30-Day Assessment - Visit Date of Eval: 01/01/21 Session #:: 11 - Medication Compliance Preventative Medication(s):: Aspirin, Statin/lipid, Beta [place] H/O mental health issues: depression, anxiety, or addiction?: No Doesn?t believe in the benefits of treatment?: No Believes medications are unnecessary or harmful?: No Has a concern about medication side effects?: No Expresses concern over the cost of medications?: No Outcomes/Goals: Verbalizes medications,desired effect & common side effects @ DC, Pt self-reports following medication regimen, Keeps card in wallet w/medications listed by DC Interventions/plans: Instruct on medication effects & side effects, Review medication list w/patient every two weeks, Instruct importance of taking meds as ordered & assist problem solving 30-day Reassessments:: Progressing - Tobacco Use Tobacco Use: Cigarettes How many cigarettes do you smoke per day?: 20 Years Smokin Do you use smokeless tobacco?: No Outcomes/Goals: Smoking cessation achieved or maintained by discharge, Identify aids/strategies for achieving smoking cessation by session 6 Interventions/plan: Instruct on effects of smoking & provide smoking cessation resource, Assist pt to set quit date & provide encouragement, Assist pt to develop strategies to achieve/maintain quit date, Assist pt w/nicotine replacement & medication for cessation success 30-day Reassessments:: Not Met - still smoking - Hypertension Hypertension Diagnosis:: Hypertension ICD-10 I10 Resting Blood Pressure:: 130/80 [place] [employer] Hypertension Guidelines: [place] [employer] Hypertension Guidelines. Normal BP Less than 120/80. Elevated BP 120/80. Hypertension Stage 1: BP 130-139/80-89. Hypertesnion Stage 2: BP 140 or higher/90 or higher. Hypertension Crisis: BP higher than 180/120 Peak Exercise Blood Pressure:: 176/68 Outcomes/Goals: Able to verbalize/achieve optimal blood pressure <130/80, Incorporates diet changes & exercise for blood pressure control by DC Interventions/plan: Instruct on optimal blood pressure, hypertension & medications, Instruct on effects of sodium, alcohol, stress, exercise &hypertension 30 day Reassessments:: Progressing - Tobacco Cessation Referral Smoking Cessation Referral:: Yes Individual Education/Counseling:: Yes - Complete smoking cessation Education Schedule Given:: Yes - Online resources and printed education book provided Medical- 60-Day Assessment Medical- 90-Day Assessment Medical - Final Assessment Psychosocial - Initial Assess Psychosocial - 30-Day Assess - VIsit Date of Eval: 01/01/21 Session #:: 11 Not Applicable: No History of previous Mental disease:: Yes History of Emotional Disorders: Depression - Psychosocial Test Tool Used:: PHQ-9 Questionnaire phq-9 Severity: Severity. 1-4 Minimal Depression. 5-9 Mild Depression. 10-14 Moderate Depression. 15-19 Moderately Sever Depression. 20-27 Severe Depression. Rule: See PHQ-9 Score: 0 Total Score:: 9 - Referral to Behavioral Health PS - Interventions: Yes Referral to Physician if PHQ-9 if score is 5-9:, Yes Attend Stress Management Classes, No Referral to Behavioral Health if PHQ-9 score >9:, No Referral to [facility] - Outcomes/Goals: See list Psychosocial Outcomes/Goals:: ID's personal stressors & 2 strategies to manage stress by discharge - Intervention/Plan: See List Interventions/Plan:: Assess stressors,coping strategies & signs of derpression on admission, Instruct/assist pt to develop coping & personal stress Mgt strategies, Instruct patient to recognize signs & symptoms of depression, Instruct patient to recog - 30-day Reassessments: 30 day Reassessments:: Progressing Psychosocial - 60-Day Assess Psychosocial - 90-Day Assess Psychosocial - Final Assessmen Patient Health Questionnaire 30-Day Re-eval Assessment 1. Little interest or pleasure in doing things: Several days 2. Feeling down, depressed, or hopeless: Several days 3. Trouble falling or staying asleep, or sleeping too much: More than half the days 4. Feeling tired or having little energy: More than half the days 5. Poor appetite or overeating: Not at all 6. Feeling bad about yourself -- or that you are a failure or have let yourself or your family down: Not at all 7. Trouble concentrating on things, such as reading the newspaper or watching television: Several days 8. Moving or speaking so slowly that other people could have noticed. Or the opposite - being so fidgety or restless that you have been moving around a lot more than usual: More than half the days 9. Thoughts that you would be better off , or of hurting yourself in some way: Not at all How difficult have these problems made it for you to do your work, take care of things at home, or get along with other people?: Not difficult at all Total Score: 9 Self-Efficacy 30-Day Re-eval Assessment We would like to know how confident you are in doing certain activities. Please select your confidence level for:: Select your confidence level for the following using the scale 1-10 where 1 is not at all confident and 10 is totally confident. Your score is the average of all 6 responses. Fatigue: How confident are you that you can keep the fatigue caused by your disease from interfering with the things you want to do? Select Number: 8 Physical Discomfort or Pain: How confident are you that you can keep the physical discomfort or pain of your disease from interfering with the things you want to do? Select Number: 9 Emotional Distress: How confident are you that you can keep the emotional distress caused by your disease from interfering with the things you want to do? Select Number: 9 Other Symptoms or Health Problems: How confident are you that you can keep other symptoms or health problems from interfering with the things you want to do? Select Number: 9 Different Tasks and Activities: How confident are you that you can do the different tasks and activities needed to manage your health condition so as to reduce your need to see a doctor? Select Number: 8 Medication: How confident are you that you can do things other than just taking medication to reduce how much your illness affects your everyday life? Select Number: 5 Total Score:: 8 Nutrition Survey
[2021-01-01 11:24] VITALS: BP 130/72; BP 130/80; BP 176/68; BMI 27.3
== END 2021-01-21 23:59 ==
LOC: CR 10:30
PROVIDERS: PCP Internal Medicine
DX: Z95.1 Presence of aortocoronary bypass graft (principal)
CPT/HCPCS: 93798

== ENCOUNTER 2021-01-22 06:58 | Outpatient (RCR) | payer BC, SELFPAY ==
[2021-01-01 11:24] VITALS: BMI 27.3
[2021-01-22 00:35] VITALS: BP 130/72; BP 130/80; BP 176/68
--- NOTE | 2021-01-29 12:08 | PCM.CR.ITP ---
Diagnosis Exercise - 60-day Assessment - Visit Date of Eval: 01/29/21 Session #:: 18 - Physician Prescribed Exercise Modalities: Treadmill, Airdyne, NuStep Frequency: 3x/week for 12 weeks [36 sessions] Intensity: 60-80% of age predicted maximum heart rate reserve Current METSs:: 6.5 Target Heart Rate:: 108-142 Current RPE:: 13-15 Maximum Excercise HR:: 133 Resting Blood Pressure: 132/82 Maximum Exercise Blood Pressure: 178/60 EKG Type: NSR to ST with freq. PVC's. Occas vent bi, tri, and qaudrigeminy - Outcomes & Goals Goals:: Verbalizes understanding of THR, RPE & goal METS by session 6, Documents in home exercise log/reports 30 min aerobic 5 day/wk by DC, Demonstrates accurate pulse taking by DC, Other additional outcome/goals: see below - Intervention & Plan Exercise Program Goals: Instruct on personal THR & RPE, Instruct on MET level & personal MET goal, Show patient to take own pulse /validate performance until accurate, Instruct on home exercise, Other additional plan/int - 30-day Reassessments 30 day Reassessments:: Progressing - Physical Activity Home Exercise Physical Activity - Home Exercise: Safe Exercise, Warm-up, Self-monitoring, Cool-Down, Home Exercise > 30 min Daily, Sitting Time <3 hours/daily - Outcomes & Goals Outcomes/Goals: Demonstrates correct Warm-up/exercise Cool-Down (S3) if = 2.5 METs, Verbalizes symptoms of exercise intolerance by Session 3 (S3), Demonstrate safe equipment use (S3) & follows exercise prescrition (6), Other: See below - Intervention & Plan Plan/Intervention: Instruct warm-up & cool-down if exercising at > 2 METs, Instruct on symptoms of exercise intolerance & actions to take, Instruct & monitor on saf, Assess intial functional capacity & safety risk, Other See below - 30-day Reassessments 30 day Reassessments:: Progressing Nutrition - Initial Assessment Nutrition - 30-Day Assessment Nutrition - 60-Day Assessment - Program Goals Nutrition Program Goals: LDL <100 optimal. 100 - 129 Near optimal. 130 - 159 Borderline High. 160 - 189 High. Total Cholesterol <200 desirable. 200 - 239 Borderline High. >/= 240 High. HDL < 40 Low >/=60 High. Triglycerides <150 desirable. <199 optimal. VlDL 5 - 40. HgbA1C <7%. BMI <25 Patient has diagnosis of Hyperlipidemia (ICD E78)?: Yes - Visit Date of Assessment:: 01/29/21 Session #:: 18 - Cholesterol/Lipids Determine presence & major risk factors that modify LDL goal: Low HDL cholesterol <40 mg/dL*, Family history of premature CHD in Male < 55 years: female <65 yearsFa, Age men > 45 years; women >/= 55 years Outcomes/Goals: Pt IDs own risk factors & lifestyle modifications by Session 10, Verbalizes symptoms of angina & response by session 3., Pt independently manages, Other Additional Outcomes/Goals: Intervention/Plan: Advocate for lipid panel cholesterol medication if applicable, Instruct on personal lipid levels & lipid goals/NCEP guidelines, Instruct on cholesterol, Other additional plan/int Referral to dietitian:: Yes 30-day Reassessments:: Progressing - Weight Mgt (Other Care) Height: 6 ft Weight:: 92.986 kg BMI: 27.8 Diagnosis Overweight/Obesity BMI> 30% ICD-10 E66: No Diagnosis High BMI/Morbid Obesity BMI> 35% ICD-10 Z68: No Outcomes/Goals: Pt sets, maintains & shows weight loss goal & trend during rehab, Other additional outcomes/goals Intervention/Plan: Instruct on ideal BMI & set weight loss goal w/patient, Assist pt to ID & incorporate diet changes for weight loss by S9, Refer to Structured Weight Loss program as appropriate, Encourage goal of using 250-300dcal per session for weight loss, Other additional plan/interventions 30 day Reassessments:: Progressing - Healthy Eating Habits Will attend diet classes:: Yes Outcomes/Goals:: Consume diet rich in vegs,fruits,whole grain/high fiber,fish,lean meat, Limit sat/trans fats,cholesterol & added salts & sugars, Other additional outcome/goals: Intervention/Plan:: Assess current eating habits, Other Additional plan/interventions 30-day Reassessments:: Progressing - Education Gave educational materials for:: Signs & symptoms of hypoglycemia, Signs & symptoms of hyperglycemia, Relate diabetes to coronary artery disease, Healthy eating Nutrition - 90-Day Assessment Nutrition - Final Assessment Medical - Initial Assessment Medical- 30-Day Assessment Medical- 60-Day Assessment - Visit Date of Eval: 01/29/21 Session #:: 18 - Medication Compliance Preventative Medication(s):: Aspirin, Statin/lipid, Beta [place] H/O mental health issues: depression, anxiety, or addiction?: No Doesn?t believe in the benefits of treatment?: No Believes medications are unnecessary or harmful?: No Has a concern about medication side effects?: No Expresses concern over the cost of medications?: No Outcomes/Goals: Verbalizes medications,desired effect & common side effects @ DC, Pt self-reports following medication regimen, Keeps card in wallet w/medications listed by DC, Other additional outcome/goals: Interventions/plans: Instruct on medication effects & side effects, Review medication list w/patient every two weeks, Instruct importance of taking meds as ordered & assist problem solving, Other additional 30-day Reassessments:: Progressing - Tobacco Use Tobacco Use: Cigarettes How long ago did you quit using tobacco products?: Less than 6 months ago - by session 6 Do you use smokeless tobacco?: No Outcomes/Goals: Smoking cessation achieved or maintained by discharge, Identify aids/strategies for achieving smoking cessation by session 6, Other additional outcome/goals Interventions/plan: Instruct on effects of smoking & provide smoking cessation resource, Assist pt to set quit date & provide encouragement, Assist pt to develop strategies to achieve/maintain quit date, Assist pt w/nicotine replacement & medication for cessation success, Other additional plan/interventions 30-day Reassessments:: Progressing - Hypertension Hypertension Diagnosis:: Hypertension ICD-10 I10 Resting Blood Pressure:: 132/82 [place] [employer] Hypertension Guidelines: [place] [employer] Hypertension Guidelines. Normal BP Less than 120/80. Elevated BP 120/80. Hypertension Stage 1: BP 130-139/80-89. Hypertesnion Stage 2: BP 140 or higher/90 or higher. Hypertension Crisis: BP higher than 180/120 Peak Exercise Blood Pressure:: 178/60 Outcomes/Goals: Able to verbalize/achieve optimal blood pressure <130/80, Incorporates diet changes & exercise for blood pressure control by DC, Other additional outcomes/goals Interventions/plan: Instruct on optimal blood pressure, hypertension & medications, Instruct on effects of sodium, alcohol, stress, exercise &hypertension, Other additional plan/interventions 30 day Reassessments:: Progressing - Tobacco Cessation Referral Smoking Cessation Referral:: Yes Individual Education/Counseling:: Yes Education Schedule Given:: Yes Medical- 90-Day Assessment Medical - Final Assessment Psychosocial - Initial Assess Psychosocial - 30-Day Assess Psychosocial - 60-Day Assess - VIsit Date of Eval: 01/29/21 Session #:: 18 History of previous Mental disease:: Yes History of Emotional Disorders: Depression - Outcomes/Goals: See list Psychosocial Outcomes/Goals:: ID's personal stressors & 2 strategies to manage stress by discharge, Other Additional outcome/goals: - Intervention/Plan: See List Interventions/Plan:: Assess stressors,coping strategies & signs of derpression on admission, Instruct/assist pt to develop coping & personal stress Mgt strategies, Refer to Behavioral Health if appropriate, Refer to Physician if appropriate, Instruct patient to recognize signs & symptoms of depression, Instruct patient to recog, Other additional plan/intervention - 30-day Reassessments: 30 day Reassessments:: Progressing Psychosocial - 90-Day Assess Psychosocial - Final Assessmen Patient Health Questionnaire 60-Day Re-eval Assessment 1. Little interest or pleasure in doing things: Several days 2. Feeling down, depressed, or hopeless: Several days 3. Trouble falling or staying asleep, or sleeping too much: More than half the days 4. Feeling tired or having little energy: More than half the days 5. Poor appetite or overeating: Not at all 6. Feeling bad about yourself -- or that you are a failure or have let yourself or your family down: Not at all 7. Trouble concentrating on things, such as reading the newspaper or watching television: Several days 8. Moving or speaking so slowly that other people could have noticed. Or the opposite - being so fidgety or restless that you have been moving around a lot more than usual: More than half the days 9. Thoughts that you would be better off , or of hurting yourself in some way: Not at all How difficult have these problems made it for you to do your work, take care of things at home, or get along with other people?: Not difficult at all Total Score: 9 Self-Efficacy 60-Day Re-eval Assessment We would like to know how confident you are in doing certain activities. Please select your confidence level for:: Select your confidence level for the following using the scale 1-10 where 1 is not at all confident and 10 is totally confident. Your score is the average of all 6 responses. Fatigue: How confident are you that you can keep the fatigue caused by your disease from interfering with the things you want to do? Select Number: 8 Physical Discomfort or Pain: How confident are you that you can keep the physical discomfort or pain of your disease from interfering with the things you want to do? Select Number: 9 Emotional Distress: How confident are you that you can keep the emotional distress caused by your disease from interfering with the things you want to do? Select Number: 9 Other Symptoms or Health Problems: How confident are you that you can keep other symptoms or health problems from interfering with the things you want to do? Select Number: 9 Different Tasks and Activities: How confident are you that you can do the different tasks and activities needed to manage your health condition so as to reduce your need to see a doctor? Select Number: 8 Medication: How confident are you that you can do things other than just taking medication to reduce how much your illness affects your everyday life? Select Number: 5 Total Score:: 8 Nutrition Survey
[2021-01-29 12:22] VITALS: BP 132/82; BP 178/60; BMI 27.8
== END 2021-02-21 23:59 ==
LOC: CR 06:58
PROVIDERS: PCP Internal Medicine
DX: Z95.1 Presence of aortocoronary bypass graft (principal)
CPT/HCPCS: 93798

== ENCOUNTER 2021-02-24 16:02 | Outpatient (CLI) | payer BC, SELFPAY ==
[2021-02-24 16:46] LABS: Absolute Lymphocyte Count 2.76 X10^3/uL (0.83-4.51); Absolute Neutrophil Count 4.6 X10^3/uL (2.0-7.7); Basophil# 0.08 X10^3/uL; Eosinophil# 0.23 X10^3/uL; Eosinophils% 2.8 % (0-5); Hematocrit 41.8 % (40-54); Hemoglobin 14.2 g/dL (13.0-16.5); Lymphocyte # 2.76 X10^3/ul (0.83-4.51); Lymphocyte % 33.3 % (19-41); Mean Corpuscular Hgb 27.3 pg (27.0-32.0); Mean Corpuscular Volume 80.2 fL (80-94); Mean Platelet Vol. 9.9 fl (6.2-12.0); Monocyte# 0.56 X10^3/uL; Monocyte% 6.8 % (0-10); NRBC Flagged by Analyzer 0 % (0-5); Neutrophil # 4.61 X10^3/uL (2.7-7.7); Neutrophil % 55.6 % (47-70); Platelet Count 281 K/mm3 (150-450); RBC Distribution Width CV 15.3 % (11.6-14.6); RBC Distribution Width SD 43.8 fl (35.1-43.9); Red Blood Count 5.21 M/mm3 (4.6-6.2); White Blood Count 8.3 K/mm3 (4.4-11.0)
[2021-02-24 17:12] LABS: AST(SGOT) 15 U/L (15-37); Alanine Aminotransfer ALT/SGPT 26 U/L (16-61); Albumin, Serum 4.2 g/dL (3.2-5.0); Alkaline Phosphatase 86 U/L (45-117); Anion Gap 6 (5-15); BUN 21 mg/dL (7-18); BUN/Creat Ratio 18.6 RATIO (10-20); Calcium,Total 9.5 mg/dL (8.5-10.1); Chloride 101 mmol/L (98-107); Cholesterol 295 mg/dL (200); Creatinine, Serum 1.13 mg/dL (0.70-1.30); EST Glomerular Filtration Rate 72 mL/min (>60); Est Glom Filt Rate - Afr Amer 87 mL/min (>60); Glucose 94 mg/dL (74-106); High Density Lipoprotein 39 mg/dL; Potassium 4.2 mmol/L (3.5-5.1); Protein, Total 8.2 g/dL (6.4-8.2); Sodium Level 137 mmol/L (136-145); Triglycerides 458 mg/dL
== END 2021-02-24 23:59 | disposition short-term general hospital (02) ==
LOC: BIMLAB 16:03
PROVIDERS: PCP Internal Medicine; Referring Provider Internal Medicine; Visit Provider Internal Medicine
DX: I10 Essential (primary) hypertension (principal); I25.10 Atherosclerotic heart disease of native coronary artery without angina pectoris
CPT/HCPCS: 36415; 80053; 80061; 85025

== ENCOUNTER 2021-08-29 16:21 | Emergency (ER) | payer BC, SELFPAY ==
[2021-08-29 16:22] VITALS: BP 144/90; PULSE 79; RESP 18; TEMP 36.5; O2SAT 100; BMI 27.9
--- NOTE | 2021-08-29 16:26 | EKG12_ITS ---
Test Reason : CP Blood Pressure : / mmHG Vent. Rate : 075 BPM Atrial Rate : 075 BPM P-R Int : 180 ms QRS Dur : 080 ms QT Int : 382 ms P-R-T Axes : 006 079 051 degrees QTc Int : 426 ms Sinus rhythm with frequent Premature ventricular complexes Otherwise normal ECG Confirmed by ALEXANDRE HU, LENIN ([id number]), newspaper editor PETR TRINIDAD ([id number]) on 09/02/2021 8:56:54 AM Referred By: CJ Confirmed By:LENIN SCHROEDER MD
[2021-08-29 16:45] LABS: Absolute Lymphocyte Count 2.14 X10^3/uL (0.83-4.51); Absolute Neutrophil Count 5.4 X10^3/uL (2.0-7.7); Basophil# 0.11 X10^3/uL; Basophil% 1.3 % (0-1); Eosinophil# 0.41 X10^3/uL; Eosinophils% 4.8 % (0-5); Hematocrit 38.7 % (40-54); Hemoglobin 13.9 g/dL (13.0-16.5); Lymphocyte # 2.14 X10^3/ul (0.83-4.51); Lymphocyte % 24.8 % (19-41); Mean Corp Hgb Conc 35.9 g/dL (32-36); Mean Corpuscular Hgb 29.6 pg (27.0-32.0); Mean Corpuscular Volume 82.5 fL (80-94); Mean Platelet Vol. 10.1 fl (6.2-12.0); Monocyte# 0.53 X10^3/uL; Monocyte% 6.1 % (0-10); NRBC Flagged by Analyzer 0 % (0-5); Neutrophil # 5.41 X10^3/uL (2.7-7.7); Neutrophil % 62.7 % (47-70); Platelet Count 265 K/mm3 (150-450); RBC Distribution Width CV 14.3 % (11.6-14.6); RBC Distribution Width SD 42.4 fl (35.1-43.9); Red Blood Count 4.69 M/mm3 (4.6-6.2); White Blood Count 8.6 K/mm3 (4.4-11.0)
[2021-08-29 17:05] LABS: Anion Gap 5 (5-15); BUN 20 mg/dL (7-18); BUN/Creat Ratio 14.2 RATIO (10-20); Chloride 107 mmol/L (98-107); Creatinine, Serum 1.41 mg/dL (0.70-1.30); EST Glomerular Filtration Rate 56 mL/min (>60); Est Glom Filt Rate - Afr Amer 67 mL/min (>60); Estimated Creatinine Clearance 65.74 ml/min; Glucose 110 mg/dL (74-106); Potassium 4.1 mmol/L (3.5-5.1); Sodium Level 141 mmol/L (136-145); Troponin-I HS 5 pg/mL (3.0-78.0)
--- NOTE | 2021-08-29 17:05 | RAD_ITS ---
STUDY: X-RAY CHEST REASON FOR EXAM: Male, 56 years old. chest pain TECHNIQUE: Single AP portable view of the chest. COMPARISON: 01/03/2020 FINDINGS: Interval median sternotomy. The lungs are clear and expanded. There is no demonstrated pleural abnormality. Normal size heart. Normal mediastinum and randal. Normal visualized pulmonary arteries. Normal visualized aortic arch and descending thoracic aorta. Normal visualized thoracic spine. Normal visualized ribs, clavicles, and shoulders. There is no demonstrated abnormality of the visualized soft tissue structures of the upper abdomen. RAD/Chest 1 View (Portable) IMPRESSION: No active disease. Electronically Signed: Eduardo Gaviria MD at 17:26 EDT ,
[2021-08-29 17:44] VITALS: BP 153/84; PULSE 70; RESP 18; O2SAT 96; O2SAT 97
--- NOTE | 2021-08-29 17:57 | ED.VIS.CHEST ---
HPI History of Present Illness Chief Complaint: Chest Pain Narrative Narrative: Patient presents with his because of shortness of breath, dyspnea on exertion, and right-sided chest pain radiating to the left that he has had intermittently for the last few months. He states the chest pain can last up to 30 seconds at a time and is sharp and stabbing, but then becomes back to back. There are days when he will not have any chest pain whatsoever. Of note, 11 months ago in October of last year, he had quadruple bypass at [facility]. He sees Dr. Chavez in [place]. Although he had a pulmonology appointment today and they were going to run more tests on his lungs because he also has history of rheumatoid arthritis, given his ongoing chest pain for the last few weeks to months, he reports to the ED for evaluation. He denies any nausea or vomiting. No diaphoresis. No fevers or chills. No cough. No swelling of his legs. [facility] Medical History Anemia Anxiety and depression Arthritis Back pain Bloody stool CAD (coronary artery disease) Chronic low back pain Colitis Difficulty balancing Difficulty balancing when standing Fatigue Hay fever Hemorrhoids history of broken right hip History of stress test Hypertension Knee pain Post-operative pain Shoulder pain Sleep apnea SOB (shortness of breath) Stomach ulcer Tobacco use disorder Vertigo Home Medications albuterol sulfate 90 mcg/actuation aerosol inhaler (Ventolin HFA) 2 puff inhalation Q4H PRN PRN Wheezing ##1 09/02/20 [Rx Last Taken Unknown] acetaminophen 500 mg tablet (Tylenol Extra Strength) 1,000 mg PO BID PRN 11/22/20 [History Last Taken Unknown] aspirin 81 mg tablet,delayed release (Adult Low Dose Aspirin) 162 mg PO DAILY 11/22/20 [History Last Taken Unknown] ezetimibe 10 mg tablet 10 mg PO DAILY 11/22/20 [History Last Taken Unknown] metoprolol tartrate 50 mg tablet 25 mg PO BID 11/22/20 [History Last Taken Unknown] rosuvastatin 20 mg tablet 20 mg PO QHS 11/22/20 [History Last Taken Unknown] citalopram 40 mg tablet 40 mg PO DAILY #90 tabs 04/22/21 [Rx Last Taken Unknown] pantoprazole 20 mg tablet,delayed release 20 mg PO DAILY #90 tabs 07/07/21 [Rx Last Taken Unknown] Allergy/AdvReac Type Severity Reaction Status Date / Time oxycodone [From OxyContin] Allergy Rash Verified 08/29/21 16:23 prednisone Allergy Flush, Verified 08/29/21 16:23 insomnia, irregular heartbeat, irritability Family History Other Arthritis CVA (cerebral vascular accident) Depression Hypertension Surgical History History of nasal surgery History of orthopedic surgery History of quadruple bypass History of repair of hip joint S/P CABG x 4 Social History Smoking Status: Current every day smoker tobacco type: cigarettes Tobacco: How many years used: 38 alcohol intake: current alcohol intake frequency: a few times a week substance use type: marijuana what type of physical activity do you participate in: none ROS ROS ED ROS Narrative Constitutional: No fever, no chills. No diaphoresis. HEENT: No sore throat. No neck pain. No loss of vision. No rhinorrhea. Cardiovascular: Intermittent, sharp stabbing chest pain. Right-sided, radiating across chest to left. No palpitations. No pedal edema. Respiratory: No cough, positive dyspnea on exertion and shortness of breath. Abdominal: No abdominal pain. No nausea. No vomiting. Genitourinary: No dysuria. No hematuria. Musculoskeletal: No myalgias. No arthralgias. Neurologic: No headaches. No dizziness. No lightheadedness. Skin: No rash. No change in color. Psychiatric: No depression. No anxiety. EXAM Physical Exam Narrative Exam Narrative: Afebrile. Vital signs noted. HEENT: Normocephalic. Atraumatic. PERRL, EOMI. Neck soft and supple. No point tenderness or step off. Cardiovascular: Regular rate and rhythm. No murmurs, rubs, or gallops appreciated. Respiratory: No tachypnea. Lungs clear to auscultation bilaterally. Gastrointestinal: Abdomen soft, nontender, with normoactive bowel sounds. No rebound or guarding. Neurological: Awake. Alert. Nonfocal, nonlateralizing. Skin: No rash. Normal color. No pallor. Musculoskeletal: No pedal edema. Full range of motion extremities. Const Vital Signs: 08/29/21 16:22 08/29/21 17:44 08/29/21 17:44 Temperature 97.7 F L Temperature Source Temporal Pulse Rate 79 70 Respiratory Rate 18 18 Respiratory Effort Respiratory Pattern Blood Pressure 144/90 H 153/84 H Blood Pressure Mean 108 107 Pulse Ox 100 97 96 Oxygen Delivery Method Room Air Room Air Room Air 08/29/21 17:44 08/29/21 18:29 Temperature Temperature Source Pulse Rate 70 Respiratory Rate 18 Respiratory Effort Normal Non-Labored Respiratory Pattern Normal Blood Pressure 148/86 H Blood Pressure Mean 106 Pulse Ox 96 Oxygen Delivery Method Room Air Heart Score History: Slightly/Non-Suspicious ECG: Normal Age: >45 - <65 years Risk Factors: >/= 3 Risk Factors or History of CAD Troponin: </= Normal Limit Score: 3 MDM MDM MDM Narrative Medical decision making narrative: EKG interpreted by myself demonstrates sinus rhythm with frequent PVCs at [address] changes. No STEMI. RN protocol started in triage. CBC is grossly normal with a normal white count of 8.6, normal hemoglobin of 13.9. Electrolyte panel shows creatinine of 1.4 with a BUN of 20. Troponin initially normal at 5. Chest x-ray interpreted by myself shows no acute process. At this point in time, I am unsure as to the reason why he is having dyspnea on exertion and shortness of breath. I will obtain a second 2-hour troponin in order to help rule out by biomarkers any acute coronary syndrome. His repeat high-sensitivity troponin is 5 for a delta troponin of 0. At this point in time, I feel he can be discharged safely home to follow-up with his hemodialysis charge nurse on Wednesday. Return instructions to the emergency department were reviewed. Disposition is discharged home in stable condition. Lab Data Attestation: I reviewed the patient's lab results. Labs: Laboratory Results - last 24 hr 08/29/21 08/29/21 08/29/21 16:35 16:35 19:02 WBC 8.6 RBC 4.69 Hgb 13.9 Hct 38.7 L MCV 82.5 MCH 29.6 MCHC 35.9 RDW Std Deviation 42.4 RDW Coeff of Afsaneh 14.3 Plt Count 265 MPV 10.1 Immature Gran % (Auto) 0.300 Neut % (Auto) 62.7 Lymph % (Auto) 24.8 Trinity % (Auto) 6.1 Eos % (Auto) 4.8 Baso % (Auto) 1.3 H Absolute Neuts (auto) 5.4 Absolute Lymphs (auto) 2.14 Nucleated RBC % 0 Sodium 141 Potassium 4.1 Chloride 107 Carbon Dioxide 29.0 Anion Gap 5 BUN 20 H Creatinine 1.41 H Estim Creat Clear Calc 65.74 Est GFR (MDRD) Af Amer 67 Est GFR (MDRD) Non-Af 56 L BUN/Creatinine Ratio 14.2 Glucose 110 H Calcium 9.0 Troponin I High Sens 5 5 Radiography Diagnostic Testing: Clinical Impression(s) from Imaging Studies Chest X-Ray 08/29/21 17:05 IMPRESSION: No active disease. Electronically Signed: Eduardo Gaviria MD at 17:26 EDT Reading Location ID and State: [facility] / ID Tel , Service support , Discharge Plan Triage Chief Complaint: Chest Pain ED Provider: Bill Zamora Dx/Rx/DC Orders Clinical Impression: Chest pain, SOB (shortness of breath) Instructions: ED Chest Pain, Uncertain Cause, ED Dyspnea Prescriptions: No Action albuterol sulfate [Ventolin HFA] 90 mcg/actuation HFA aerosol inhaler 2 puff inhalation Q4H PRN PRN (Reason: Wheezing) Qty: 1 6RF metoprolol tartrate 50 mg tablet 25 mg PO BID Label Comments: TAKE 1 TABLET BY MOUTH EVERY 12 HOURS aspirin [Adult Low Dose Aspirin] 81 mg tablet,delayed release (DR/EC) 162 mg PO DAILY rosuvastatin 20 mg tablet 20 mg PO QHS Label Comments: Take 1 tablet by mouth daily at bedtime. ezetimibe 10 mg tablet 10 mg PO DAILY Label Comments: Take 1 tablet by mouth once daily. acetaminophen [Tylenol Extra Strength] 500 mg tablet 1,000 mg PO BID PRN citalopram 40 mg tablet 40 mg PO DAILY Qty: 90 1RF pantoprazole 20 mg tablet,delayed release (DR/EC) 20 mg PO DAILY Qty: 90 1RF Primary Care Provider: Quang Hanson Referrals: Quang Hanson MD [Primary Care Provider] - Activity Restrictions/Additional Instructions: Your troponins were negative today. Follow-up with your hemodialysis charge nurse on Wednesday. Return with any new or worsening symptoms. Disposition Disposition: Home, Self Care
[2021-08-29 18:29] VITALS: BP 148/86; PULSE 70; RESP 18; O2SAT 96
[2021-08-29 19:46] LABS: Troponin-I HS 5 pg/mL (3.0-78.0)
== END 2021-08-29 20:05 | disposition home or self-care (01) ==
PROVIDERS: Emergency Provider Emergency Medicine; PCP Internal Medicine; Visit Provider Emergency Medicine
DX: R07.9 Chest pain, unspecified (principal); M06.9 Rheumatoid arthritis, unspecified; R06.02 Shortness of breath; I49.3 Ventricular premature depolarization; F17.210 Nicotine dependence, cigarettes, uncomplicated; I25.10 Atherosclerotic heart disease of native coronary artery without angina pectoris; I10 Essential (primary) hypertension; F32.A Depression, unspecified; F41.9 Anxiety disorder, unspecified; Z87.19 Personal history of other diseases of the digestive system; Z95.1 Presence of aortocoronary bypass graft; Z79.82 Long term (current) use of aspirin; Z79.899 Other long term (current) drug therapy
CPT/HCPCS: 36415; 71045; 80048; 84484; 85025; 93005; 99283

== ENCOUNTER → 2021-09-09 | Outpatient (CLI) | payer BC, SELFPAY ==
[2021-09-09 12:30] VITALS: PULSE 86; PULSE 89; PULSE 92; PULSE 94; PULSE 95; PULSE 96; O2SAT 95; O2SAT 96; O2SAT 97; O2SAT 98
--- NOTE | 2021-09-09 15:06 | WT_ITS ---
PSN 6 Minute Walk Test 6 Minute Walk Test 6 Minute Walk Test: 6 Minute Walk Test PSN:6-Minute Walk Test Start: 09/09/21 13:01 Freq: Status: Active Protocol: [id number] Document 09/09/21 12:30 RAE (Rec: 09/09/21 13:04 [id number]) 6 Minute Walk Test Date Performed 09/09/21 Time Performed 12:30 Height 6 ft 1 in Weight: 94.347 kg Weight in Pounds 208.[address]: Michelle Yao [facility] FIO2 (% Oxygen) 21 Assistive device used: Cane Pre-test Oxygen Delivery Method Room Air Pulse Ox (%) 98 Pulse Rate (60-100 beats/min) 86 Dyspnea Taylor Scale (0-10) 0 Exertion Taylor Scale (6-20) 6 1st minute Oxygen Delivery Method Room Air Pulse Ox (%) 97 Pulse Rate (60-100 beats/min) 94 2nd minute Oxygen Delivery Method Room Air Pulse Ox (%) 95 Pulse Rate (60-100 beats/min) 95 3rd minute Oxygen Delivery Method Room Air Pulse Ox (%) 95 Pulse Rate (60-100 beats/min) 92 4th minute Oxygen Delivery Method Room Air Pulse Ox (%) 95 Pulse Rate (60-100 beats/min) 89 5th minute Oxygen Delivery Method Room Air Pulse Ox (%) 96 Pulse Rate (60-100 beats/min) 96 6th minute Oxygen Delivery Method Room Air Pulse Ox (%) 98 Pulse Rate (60-100 beats/min) 95 Post-test Oxygen Delivery Method Room Air Pulse Ox (%) 98 Pulse Rate (60-100 beats/min) 89 Dyspnea Taylor Scale (0-10) 3 Exertion Taylor Scale (6-20) 11 Full Laps Walked 21 Partial Lap, Number of Tiles Walked 0 Total Distance Walked (ft) 1239 Interpretation Interpretation: The patient was able to ambulate 1239 feet over the course of 6 minutes on room air with no assistive devices or breaks. The patient experienced no significant desaturation or tachycardia. These findings are consistent with a normal walking oximetry. Recommendations Recommendations: No supplemental oxygen is indicated at this time.
== END | disposition home or self-care (01) ==
PROVIDERS: PCP Internal Medicine; Referring Provider Nurse Practitioner Acute Care; Visit Provider Nurse Practitioner Acute Care
DX: R06.02 Shortness of breath (principal)
CPT/HCPCS: 94618

== ENCOUNTER → 2021-09-22 | Outpatient (CLI) | payer BC, SELFPAY ==
--- NOTE | 2021-09-22 06:48 | CT_ITS ---
STUDY: LOW DOSE CT LUNG CANCER SCREENING REASON FOR EXAM: Male, 56 years old. 1 pack per day smoker x30 years, history of hypertension and CABG RADIATION DOSAGE (If Supplied By Facility): CTDIvol = ( 3.02 ) mGy, DLP = ( 103.45 ) mGycm TECHNIQUE: No contrast was administered. Low dose technique was utilized (average mAS-38 and kVp 120). 1.25 mm axial source images with a slice interval of 1.25-mm were reconstructed in lung windows. 2.5 mm axial source images with a slice interval of 2.5-mm were reconstructed in lung windows. 5.0 mm axial source images with a slice interval of 5.0-mm were reconstructed in soft tissue windows. COMPARISON: 07/14/2020 FINDINGS: Lung windows show the lungs to be normally expanded. Chronic interstitial changes noted in both lung richardson with evidence of chronic bronchitis, but there is no organized infiltrate, or suspicious noncalcified mass or nodule. Calcified granulomata noted in the superior aspect of the right lower lobe. Soft tissue windows show a normal-appearing thyroid gland. No suspicious adenopathy. There has been a previous CABG. Bony structures show degenerative change. Limited cuts through the upper abdomen show a contour abnormality in the left kidney, further evaluation with ultrasound versus contrasted CT recommended this was not included on the previous CTA chest of 07/14/2020. CT/Low Dose CT Lung Screening IMPRESSION: Lung-RADS category 2 - Continue annual screening with LDCT in 12 months. IMPORTANT NOTES FOR USE: ACR Lung-RADS Version 1.1 Assessment Categories Release Date: 2018 Category: Coded 0-4 bases on nodule(s) with highest degree of suspicion. Negative screen is defined as categories 1 and 2; a positive screen is defined as categories 3 and 4. Category 3 and 4A nodules that are unchanged on interval CT should be coded as category 2, and individuals returned to screening in 12 months. Category 4X: Category 3 or 4 nodules with additional imaging findings that increase the suspicion of lung cancer, such as spiculation, GGN that doubles in size in 1 year, enlarged lymph notes, etc. Category Modifiers: S (significant finding unrelated to lung cancer) Electronically Signed: Joss La MD at 10:59 EDT ,
--- NOTE | 2021-09-22 10:19 | PFTCOMP_ITS ---
COMPLETE PULMONARY FUNCTION TEST INTERPRETATION Brief HPI: Patient is a 56-year-old male, currently under the care of Michelle Yao, who presents to [facility] for complete pulmonary function tests secondary to diagnosis of nicotine dependence. Respiratory therapist reports good effort and reproducible results. Interpretation: Forced expiration spirometry shows no large airways obstructive ventilatory defect with an FEV1 of 89% predicted. There is no significant bronchodilator response by strict ATS criteria. Spirograms are of good quality and plateau normally. The respiratory flow volume loop shows a normal pattern. Lung volumes by body plethysmography show a decreased total lung capacity at 6.27 L, 84% predicted. All other lung volumes are reduced symmetrically. Diffusion capacity by carbon monoxide is at the lower limit of normal at 79% predicted. The airway resistance is slightly elevated. Compared to previous pulmonary function tests from 07/19/2020, there is been a significant reduction in FVC, FEV1 and DLCO by 20%, 16% and 26% respectively. Impression: Mild restrictive ventilatory defect with a symmetric reduction diffusion capacity and significant worsening compared to previous testing.
== END | disposition home or self-care (01) ==
LOC: CT 06:38
PROVIDERS: PCP Internal Medicine; Referring Provider Nurse Practitioner Acute Care; Visit Provider Nurse Practitioner Acute Care
DX: R06.02 Shortness of breath (principal); F17.210 Nicotine dependence, cigarettes, uncomplicated
CPT/HCPCS: 71271; 94060; 94726; 94729

== ENCOUNTER → 2021-10-01 | Outpatient (CLI) | payer BC, SELFPAY ==
[2021-10-01 15:03] LABS: Absolute Lymphocyte Count 2.81 X10^3/uL (0.83-4.51); Absolute Neutrophil Count 3.9 X10^3/uL (2.0-7.7); Basophil# 0.08 X10^3/uL; Eosinophil# 0.33 X10^3/uL; Eosinophils% 4.3 % (0-5); Hematocrit 39.6 % (40-54); Hemoglobin 13.9 g/dL (13.0-16.5); Lymphocyte # 2.81 X10^3/ul (0.83-4.51); Lymphocyte % 36.8 % (19-41); Mean Corp Hgb Conc 35.1 g/dL (32-36); Mean Corpuscular Hgb 29.4 pg (27.0-32.0); Mean Corpuscular Volume 83.9 fL (80-94); Mean Platelet Vol. 10.4 fl (6.2-12.0); Monocyte# 0.48 X10^3/uL; Monocyte% 6.3 % (0-10); NRBC Flagged by Analyzer 0 % (0-5); Neutrophil % 51.2 % (47-70); Platelet Count 260 K/mm3 (150-450); RBC Distribution Width CV 13.2 % (11.6-14.6); RBC Distribution Width SD 40.8 fl (35.1-43.9); Red Blood Count 4.72 M/mm3 (4.6-6.2); White Blood Count 7.6 K/mm3 (4.4-11.0)
[2021-10-01 15:25] LABS: BNP,B-Type NATRIURETIC PEPTIDE 39.2 pg/mL (0-100)
[2021-10-01 15:29] LABS: ALB/GLOB Ratio 1.1 RATIO (0.9-2.4); AST(SGOT) 18 U/L (15-37); Alanine Aminotransfer ALT/SGPT 29 U/L (16-61); Albumin, Serum 4.1 g/dL (3.2-5.0); Alkaline Phosphatase 67 U/L (45-117); Anion Gap 4 (5-15); BUN 19 mg/dL (7-18); BUN/Creat Ratio 15.1 RATIO (10-20); Calcium,Total 9.6 mg/dL (8.5-10.1); Chloride 102 mmol/L (98-107); Creatinine, Serum 1.26 mg/dL (0.70-1.30); EST Glomerular Filtration Rate 63 mL/min (>60); Est Glom Filt Rate - Afr Amer 77 mL/min (>60); Globulin 3.8 g/dL (2.2-4.2); Glucose 99 mg/dL (74-106); Potassium 4.6 mmol/L (3.5-5.1); Protein, Total 7.9 g/dL (6.4-8.2); Sodium Level 137 mmol/L (136-145)
== END | disposition home or self-care (01) ==
LOC: BIMLAB 13:58
PROVIDERS: PCP Internal Medicine; Referring Provider Internal Medicine; Visit Provider Internal Medicine
DX: R06.02 Shortness of breath (principal); I10 Essential (primary) hypertension; I25.10 Atherosclerotic heart disease of native coronary artery without angina pectoris
CPT/HCPCS: 36415; 80053; 83880; 85025

== ENCOUNTER → 2021-10-06 | Outpatient (CLI) | payer BC, SELFPAY ==
--- NOTE | 2021-10-06 08:03 | CT_ITS ---
STUDY: CT Abdomen And Pelvis W/ Contrast Injection 10/06/2021 9:05 PM REASON FOR EXAM: Male, 56 years old. ABDOMINAL PAIN Left Kidney Mass TECHNIQUE: Transaxial images were obtained without oral contrast, and with IV 100mL [id number]-300 intravenous contrast. Individualized dose optimization techniques were used for this CT. COMPARISON: 06.01.16. FINDINGS: The visualized lung bases are unremarkable. The visualized portions of the heart are within normal limits. Multiple median sternotomy wires are noted consistent for cardiac surgery. Right lower lobe calcified granuloma. Unremarkable liver. Unremarkable gallbladder and extrahepatic biliary system. Unremarkable spleen. Unremarkable pancreas. Unremarkable bilateral adrenal glands. No acute findings of the right kidney. No acute findings of the left kidney. Unremarkable visualized stomach. Unremarkable small intestine. Unremarkable colon. The appendix is visualized and appears unremarkable. There are calcifications of the abdominal aorta. This is consistent for atherosclerotic disease. There is no abdominal aortic aneurysm. There are bilateral inguinal hernias containing fat. There is no bowel involvement. There is no incarceration. There is no findings suggesting that this is causing a bowel obstruction. Unremarkable inferior vena cava. Subcentimeter mesenteric lymph nodes. Unremarkable urinary bladder. Unremarkable abdominal wall. Unremarkable osseous structures. CT/Abdomen/Pelvis WITH Contrast IMPRESSION: (NOT LISTED IN ORDER OF SIGNIFICANCE) There are no acute findings. No adrenal mass. Other findings as above. Electronically Signed: Tigre Chou MD at 21:07 EDT ,
== END | disposition home or self-care (01) ==
LOC: CT 08:01
PROVIDERS: PCP Internal Medicine; Referring Provider Internal Medicine; Visit Provider Internal Medicine
DX: N28.89 Other specified disorders of kidney and ureter (principal); R91.8 Other nonspecific abnormal finding of lung field
CPT/HCPCS: 74177; Q9967

== ENCOUNTER 2022-01-10 10:21 | Outpatient (CLI) | payer OTHER, SELFPAY ==
--- NOTE | 2022-01-10 10:40 | RAD_ITS ---
STUDY: X-RAY - LUMBOSACRAL SPINE REASON FOR EXAM: Male, 56 years old. Radiating low back pain TECHNIQUE: 7 view(s) of the lumbosacral spine were obtained. COMPARISON: None FINDINGS: Normal lumbar lordosis. There is no substantial scoliosis. There is normal alignment of the vertebrae. Normal vertebral bodies and endplates. Mild disc space narrowing. Normal bilateral sacral ala, sacroiliac joints, and visualized sacrum. No instability on flexion or extension views Normal visualized soft tissue structures. RAD/L/S Spine Comp/w Bending Views IMPRESSION: Mild degenerative changes, no acute findings Electronically Signed: Joss La MD at 11:15 EST ,
== END 2022-01-10 23:59 | disposition home or self-care (01) ==
LOC: RAD 10:23
PROVIDERS: PCP Internal Medicine; Referring Provider Anesthesiology Pain Medicine; Visit Provider Anesthesiology Pain Medicine
DX: M51.37 Other intervertebral disc degeneration, lumbosacral region (principal)
CPT/HCPCS: 72114

== ENCOUNTER → 2022-05-15 | Outpatient (CLI) | payer OTHER, SELFPAY ==
[2022-05-15 12:32] LABS: Erythrocyte Sedimentation Rate 10 mm/hr (0-20)
[2022-05-15 12:35] LABS: Absolute Lymphocyte Count 1.91 X10^3/uL (0.83-4.51); Absolute Neutrophil Count 3.3 X10^3/uL (2.0-7.7); Basophil# 0.07 X10^3/uL; Basophil% 1.2 % (0-1); Eosinophil# 0.19 X10^3/uL; Eosinophils% 3.3 % (0-5); Hematocrit 45.4 % (40-54); Hemoglobin 15.6 g/dL (13.0-16.5); Lymphocyte # 1.91 X10^3/ul (0.83-4.51); Lymphocyte % 33.1 % (19-41); Mean Corp Hgb Conc 34.4 g/dL (32-36); Mean Corpuscular Hgb 29.1 pg (27.0-32.0); Mean Corpuscular Volume 84.5 fL (80-94); Mean Platelet Vol. 9.7 fl (6.2-12.0); Monocyte% 5.2 % (0-10); NRBC Flagged by Analyzer 0 % (0-5); Neutrophil # 3.29 X10^3/uL (2.7-7.7); Platelet Count 297 K/mm3 (150-450); RBC Distribution Width CV 13.9 % (11.6-14.6); RBC Distribution Width SD 42.8 fl (35.1-43.9); Red Blood Count 5.37 M/mm3 (4.6-6.2); White Blood Count 5.8 K/mm3 (4.4-11.0)
[2022-05-15 12:59] LABS: ALB/GLOB Ratio 1.1 RATIO (0.9-2.4); AST(SGOT) 17 U/L (15-37); Alanine Aminotransfer ALT/SGPT 24 U/L (16-61); Albumin, Serum 4.1 g/dL (3.2-5.0); Alkaline Phosphatase 63 U/L (45-117); Anion Gap 5 (5-15); BUN 13 mg/dL (7-18); BUN/Creat Ratio 12.5 RATIO (10-20); CRP 8.24 mg/L (0.0-3.0); Calcium,Total 9.5 mg/dL (8.5-10.1); Chloride 106 mmol/L (98-107); Creatinine, Serum 1.04 mg/dL (0.70-1.30); EST Glomerular Filtration Rate 79 mL/min (>60); Est Glom Filt Rate - Afr Amer 95 mL/min (>60); Globulin 3.8 g/dL (2.2-4.2); Glucose 109 mg/dL (74-106); PSA,Total - Annual Screen 2.69 ng/mL (0.00-4.00); Potassium 4.2 mmol/L (3.5-5.1); Protein, Total 7.9 g/dL (6.4-8.2); Sodium Level 139 mmol/L (136-145); Thyroid Stim Hormone (TSH) 0.84 uIU/mL (0.358-3.74)
[2022-05-20 12:09] LABS: Testosterone, Free 9.57 ng/dL (5.00-21.00)
[2022-05-20 16:08] LABS: Testosterone, % Free 2.23 % (1.50-4.20); Testosterone, Total 429 ng/dL (264-916)
== END | disposition home or self-care (01) ==
LOC: BIMLAB 09:20
PROVIDERS: PCP Internal Medicine; Referring Provider Nurse Practitioner Family; Visit Provider Nurse Practitioner Family
DX: E78.5 Hyperlipidemia, unspecified (principal); M54.50 Low back pain, unspecified; G89.29 Other chronic pain; F41.9 Anxiety disorder, unspecified; F32.A Depression, unspecified; F17.210 Nicotine dependence, cigarettes, uncomplicated; Z12.5 Encounter for screening for malignant neoplasm of prostate; N52.9 Male erectile dysfunction, unspecified
CPT/HCPCS: 36415; 80053; 84153; 84402; 84403; 84443; 85025; 85652; 86140; G0103

== ENCOUNTER → 2022-06-23 | Outpatient (CLI) | payer OTHER, SELFPAY ==
--- NOTE | 2022-06-23 09:21 | RAD_ITS ---
STUDY: X-RAY - RIGHT KNEE REASON FOR EXAM: Male, 57 years old. PAIN TECHNIQUE: 3 view(s) of the knee. COMPARISON: None. FINDINGS: Normal visualized distal femur. Normal visualized proximal tibia and fibula. Normal proximal tibiofibular articulation. Normal medial femorotibial compartment. Normal lateral femorotibial compartment. Normal patellofemoral articulation. Small suprapatellar spur. There are surgical clips noted posterior and medial to the medial humeral condyle RAD/Knee 3 Views IMPRESSION: Postsurgical changes and mild degenerative change. No acute fracture or other significant bony pathology Electronically Signed: Adelfo Wu MD at 17:39 EDT ,
--- NOTE | 2022-06-23 09:25 | RAD_ITS ---
INDICATION: PAIN EXAMINATION/TECHNIQUE: X-RAY - LEFT XR Knee 3 Views 3 VIEWS COMPARISON: 02/19/2020 FINDINGS: SOFT TISSUES: No soft tissue swelling or gas. No radiopaque foreign body. BONES/JOINTS: No acute fracture or subluxation. Quadriceps tendon enthesophyte redemonstrated. Tricompartmental joint spaces are maintained. Small lateral patellar osteophyte. RAD/Knee 3 Views IMPRESSION: Small lateral patellar osteophyte. Electronically Signed: Neymar Nevarez MD at 17:53 EDT ,
== END | disposition home or self-care (01) ==
LOC: MTRAD 09:18
PROVIDERS: PCP Internal Medicine; Referring Provider Nurse Practitioner Acute Care; Visit Provider Nurse Practitioner Acute Care
DX: M25.569 Pain in unspecified knee (principal)
CPT/HCPCS: 73562

== ENCOUNTER 2022-07-03 10:43 | Emergency (ER) | payer OTHER, SELFPAY ==
[2022-07-03 10:44] VITALS: BP 143/90; PULSE 70; RESP 18; TEMP 36.7; O2SAT 100; BMI 24.5
--- NOTE | 2022-07-03 10:50 | EKG12_ITS ---
Test Reason : CP Blood Pressure : / mmHG Vent. Rate : 067 BPM Atrial Rate : 067 BPM P-R Int : 190 ms QRS Dur : 086 ms QT Int : 386 ms P-R-T Axes : 002 075 091 degrees QTc Int : 407 ms Normal sinus rhythm Normal ECG Confirmed by ALEXANDRE HU, LENIN ([id number]), editor map PETR TRINIDAD ([id number]) on 07/06/2022 11:33:22 AM Referred By: CATY/MITZI Confirmed By:LENIN SCHROEDER MD
[2022-07-03] MEDS: Aspirin 81 MG TAB.CHEW 324 MG PO (10:54)
[2022-07-03 11:07] LABS: Absolute Lymphocyte Count 2.94 X10^3/uL (0.83-4.51); Absolute Neutrophil Count 5.1 X10^3/uL (2.0-7.7); Basophil% 1.1 % (0-1); Eosinophil# 0.32 X10^3/uL; Eosinophils% 3.5 % (0-5); Hematocrit 45.8 % (40-54); Hemoglobin 15.8 g/dL (13.0-16.5); Lymphocyte # 2.94 X10^3/ul (0.83-4.51); Lymphocyte % 32.1 % (19-41); Mean Corp Hgb Conc 34.5 g/dL (32-36); Mean Corpuscular Hgb 29.1 pg (27.0-32.0); Mean Corpuscular Volume 84.3 fL (80-94); Mean Platelet Vol. 9.1 fl (6.2-12.0); Monocyte# 0.48 X10^3/uL; Monocyte% 5.2 % (0-10); NRBC Flagged by Analyzer 0 % (0-5); Neutrophil % 55.7 % (47-70); Platelet Count 308 K/mm3 (150-450); RBC Distribution Width CV 14.2 % (11.6-14.6); RBC Distribution Width SD 43.8 fl (35.1-43.9); Red Blood Count 5.43 M/mm3 (4.6-6.2); White Blood Count 9.2 K/mm3 (4.4-11.0)
--- NOTE | 2022-07-03 11:10 | RAD_ITS ---
STUDY: X-RAY CHEST REASON FOR EXAM: Male, 57 years old. Chest pain TECHNIQUE: Single AP portable view of the chest. COMPARISON: Comparison is made with prior study dated August 29, 2021. FINDINGS: EKG electrodes are seen. The lungs are clear and expanded. There is no demonstrated pleural abnormality. Sternal cerclage wires and vascular clips are present from a prior sternotomy and coronary artery bypass graft procedure (CABG). Scattered calcified granulomas. Normal mediastinum and randal. Normal visualized pulmonary arteries. Normal visualized aortic arch and descending thoracic aorta. There are degenerative changes of the visualized thoracic spine. Normal visualized ribs, clavicles, and shoulders. There is no demonstrated abnormality of the visualized soft tissue structures of the upper abdomen. RAD/Chest 1 View (Portable) IMPRESSION: No acute abnormality is seen. Electronically Signed: Robinson Trammell MD at 11:38 EDT ,
--- NOTE | 2022-07-03 11:11 | EDS_ITS ---
HPI History of Present Illness Chief Complaint: Chest Pain Detail of Chief Complaint: Left posterior shoulder blade pain. 2 days. Constant. Informant: patient and spouse/S.O. Onset/Context/Timing Onset: Days Activity at onset: gradual Timing: Continuous Quality: Positive for Aching Current Severity: Mild Maximum Severity: Moderate Worsened By: Movement of Arm and Movement of Torso Relieved By: Nothing Associated Symptoms: Positive for Nausea and Dyspnea; Negative for Diaphoresis, Cough, Fever, Lightheadedness, Acid Reflux or Palpitations Narrative Narrative: 57-year-old male history of quadruple bypass in October 2020. States recently does not have a lot of energy. He does physical work at his job and he believes he pulled a muscle at his left shoulder blade. He says the pain radiates up to the top of his shoulder. Worse with movement of his arm. Said it began on Wednesday it got worse throughout the day and he called off yesterday. He really denies any chest pain. Says he has recently had some shortness of breath and mild nausea. No diaphoresis. Pain is not exertional. Prior Similar Symptoms: Yes Recent Illness/Hospitalization: No CVD Risk Factors: Positive for Hypertension and Smoking PE Risk Factors: Negative for Recent Travel/Surgery, Recent Immobilization, Prior DVT or PE, Cancer or OCP + Smoking + >/=35 TAD Risk Factors: Negative for Marfan's Syndrome or Hypertension [facility] Medical History Abnormal CT lung screening Anemia Anxiety and depression Arthritis Back pain Bloody stool BPH (benign prostatic hyperplasia) CAD (coronary artery disease) Chronic fatigue Chronic low back pain Colitis Difficulty balancing Difficulty balancing when standing Erectile dysfunction Fatigue Hay fever Hemorrhoids history of broken right hip History of stress test Hypersomnia Hypertension Knee pain Left kidney mass PRABHU (obstructive sleep apnea) Post-operative pain Shoulder pain Sleep apnea SOB (shortness of breath) Stomach ulcer Tobacco use disorder Vertigo Home Medications acetaminophen 500 mg tablet (Tylenol Extra Strength) 1,000 mg PO BID PRN 11/22/20 [History Last Taken Unknown] aspirin 81 mg tablet,delayed release (Adult Low Dose Aspirin) 162 mg PO DAILY 11/22/20 [History Last Taken Unknown] metoprolol tartrate 50 mg tablet 25 mg PO BID 11/22/20 [History Last Taken Unknown] rosuvastatin 20 mg tablet 20 mg PO QHS 11/22/20 [History Last Taken Unknown] isosorbide mononitrate 30 mg tablet,extended release 24 hr 30 mg PO DAILY 10/01/21 [History Last Taken Unknown] cyclobenzaprine 10 mg tablet 10 mg PO TID PRN PRN Muscle Spasm 07/03/22 [History Last Taken Unknown] metaxalone 800 mg tablet 800 mg PO TID 7 days #21 tabs 07/03/22 [Rx Last Taken Unknown] methylprednisolone 4 mg tablets in a dose pack See Rx Instructions .Route .COMPLEX 07/03/22 [History Last Taken Unknown] omeprazole magnesium 20 mg tablet,delayed release (Prilosec OTC) 20 mg PO DAILY 07/03/22 [History Last Taken Unknown] oxycodone-acetaminophen 5 mg-325 mg tablet (Percocet) 1 tab PO Q6H PRN pain 3 days #10 tabs 07/03/22 [Rx Last Taken Unknown] Allergy/AdvReac Type Severity Reaction Status Date / Time oxycodone [From OxyContin] Allergy Rash Verified 05/14/22 15:01 prednisone Allergy Flush, Verified 05/14/22 15:01 insomnia, irregular heartbeat, irritability Family History Other Arthritis CVA (cerebral vascular accident) Depression Hypertension Surgical History History of nasal surgery History of orthopedic surgery History of quadruple bypass History of repair of hip joint S/P CABG x 4 Social History Smoking Status: Current every day smoker tobacco type: cigarettes Tobacco: How many years used: 38 alcohol intake: current alcohol intake frequency: a few times a week substance use type: marijuana what type of physical activity do you participate in: none ROS ROS ED ROS Narrative Posterior back pain. Shortness of breath. Decreased energy. Review of Systems ROS Unobtainable: Denies due to encephalopathy Constitutional Constitutional ED: Denies chills or fever(s) Eyes Eyes: Reports none ENT ENT ED: Denies ear pain, rhinorrhea or sore throat Cardiovascular Cardiovascular: Reports as per HPI; Denies chest pain, palpitations or racing heartbeat Respiratory/Chest Respiratory/Chest: Reports dyspnea; Denies cough Gastrointestinal Gastrointestinal: Reports nausea; Denies abdominal pain, constipation, diarrhea, melena or vomiting Genitourinary Genitourinary ED: Denies dysuria or hematuria Musculoskeletal Musculoskeletal: Denies arthralgias Integumentary Denies abscess Neurologic Neurologic: Denies headache(s) Psychiatric Psychiatric: Denies anxiety Endocrine Endocrinology: Denies cold intolerance Hematologic/Lymphatic Hematologic/Lymphatic: Denies easy bleeding Allergic/Immunologic Allergic/Immunologic ED: Denies mouth swelling or tongue swelling EXAM Physical Exam Narrative Exam Narrative: 61-year-old male no acute distress vital signs stable afebrile. Pulse ox 100% on room air no hypoxia. Sitting upright in bed. at bedside. H EENT exam unremarkable. Neck nontender. No JVD. Lungs clear to auscultation bilaterally. Heart regular rhythm rate about 70 no murmur. Chest wall nontender. Abdomen soft nontender. Back he has reproducible musculoskeletal tenderness along his shoulder blade. It is consistent with skeletal pain. Moving all 4 extremities. Calves are nontender without edema. Radial pulses are equal and symmetrical. He is awake and alert with no focal motor deficits. Const Vital Signs: 07/03/22 10:44 07/03/22 10:57 Temperature 98.0 F Temperature Source Temporal Pulse Rate 70 Respiratory Rate 18 Blood Pressure 143/90 H Blood Pressure Mean 107 Pulse Ox 100 Oxygen Delivery Method Room Air Room Air Positive well nourished and well developed; Negative for cachectic, contractures or unkempt General Appearance ED: well developed and NAD; Negative for unkempt, cachectic, contractures or pallor Nutritional Appearance: Negative for cachectic HEENT Reports moist mucous membranes normocephalic and atraumatic; Negative for trauma or tenderness Eyes PERRL and EOMs intact bilaterally General Eye ED: Negative for pale conjunctiva or scleral icterus Neck no lymphadenopathy, supple and no JVD General: Negative for tenderness Chest Wall inspection of chest normal and palpation of chest normal Chest: Negative for tenderness Resp normal respiratory effort and clear to auscultation bilaterally Effort and Inspection: Negative for respiratory distress Auscultation: Negative for rales, rhonchi or wheezes Cardio regular rate, regular rhythm, S1 normal heart sound, S2 normal heart sound and no murmurs Rate: Negative for bradycardia or tachycardic Rhythm: Negative for abnormal rhythm Peripheral Pulses: pulses 2+ throughout GI normal to inspection, nondistended, normoactive bowel sounds, soft to palpation, non-tender, non-distended and no masses Auscultation: Negative for hyperactive bowel sounds Palpation: Negative for splenomegaly or mass Back/Spine no CVA tenderness and no thoracic nor lumbar tenderness General Back: Negative for CVA tenderness Cervical Spine: Negative for cervical spine tenderness Extremity normal to inspection General Extremety ED: Negative for edema or pulses abnormal General Extremity: Negative for edema or pulses abnormal Neuro oriented x3 and CN's II-XII intact bilaterally Sensorium / Orientation: awake, alert, oriented to person, oriented to place and oriented to time; Negative for confused, lethargic or stuporous Motor Exam: strength 5/5 throughout Psych mental status grossly normal Appearance: Negative for unkempt Attitude: No agitated Mood & Affect: Negative for depressed, anxious or tearful Skin no rashes or lesions noted and no wounds General Skin Exam: Negative for jaundice or pallor Rashes: No rashes noted Trauma: Negative for abrasion or laceration Heart Score History: Slightly/Non-Suspicious ECG: Normal Age: >45 - <65 years Risk Factors: >/= 3 Risk Factors or History of CAD Troponin: </= Normal Limit Score: 3 MDM MDM MDM Narrative Medical decision making narrative: 57-year-old male history of cardiac disease. Four-way bypass 1-1/2 to 2 years ago. He is not having chest pain he does have reproducible back pain that could be musculoskeletal as is concerned this could be cardiac in 1 that evaluated. He is also recently had some decreased energy and some mild shortness of breath. He has no pleuritic pain. No hemoptysis. He is never had a DVT or PE or any significant risk factors. Patient undergo cardiac work-up. Repeat exam patient doing well at 12:39 PM. He and his discussed all his test results. Clinically I do not think this is cardiac. He has reproducible pain along his left scapula consistent with muscle strain or spasm. Be placed on Skelaxin. Discharged home outpatient follow-up with primary care physician. History & Record Review Discussion w/independent historian: Patient and Significant other Additional record(s) reviewed:: Prior inpatient record, Prior outpatient record, Prior ED visit and Prior labs Lab Data Attestation: I reviewed the patient's lab results. Lab results narrative: CBC normal. White count of 9. H&H of 15 and 45. Chemistry is unremarkable gap of 8. BUN and creatinine of 21. Glucose 101. Troponin normal at 6. His pain has been 2 days straight. He does not need a 2- hour troponin. Labs: Laboratory Results - last 24 hr 07/03/22 07/03/22 11:00 11:00 WBC 9.2 RBC 5.43 Hgb 15.8 Hct 45.8 MCV 84.3 MCH 29.1 MCHC 34.5 RDW Std Deviation 43.8 RDW Coeff of Afsaneh 14.2 Plt Count 308 MPV 9.1 Immature Gran % (Auto) 2.400 H Neut % (Auto) 55.7 Lymph % (Auto) 32.1 Morrison % (Auto) 5.2 Eos % (Auto) 3.5 Baso % (Auto) 1.1 H Absolute Neuts (auto) 5.1 Absolute Lymphs (auto) 2.94 Nucleated RBC % 0 Sodium 138 Potassium 4.0 Chloride 103 Carbon Dioxide 27.0 Anion Gap 8 BUN 20 H Creatinine 1.02 Estim Creat Clear Calc 103.13 Est GFR (MDRD) Af Amer 98 Est GFR (MDRD) Non-Af 81 BUN/Creatinine Ratio 19.6 Glucose 101 Calcium 9.6 Troponin I High Sens 6 Radiography Chest X-Ray - ED: 1 View, Read by ED Physician, Heart, Lungs, Mediastinum, Bony Structures, No Acute Disease and Chronic Changes Diagnostic Testing: Clinical Impression(s) from Imaging Studies Chest X-Ray 07/03/22 11:10 IMPRESSION: No acute abnormality is seen. Electronically Signed: Robinson Trammell MD at 11:38 EDT , Chest x-ray, portable, single view, interpreted by myself shows no acute abnormality. Prior sternotomy. Normal cardiac silhouette lung richardson. No acute abnormality. Rhythm Strip Rhythm Strip: Sinus Rhythm Rate: 67 Ectopy: None EKG Initial EKG: Attestation: I personally reviewed and interpreted this EKG as follows: Interpretation: Sinus Rhythm and No Acute Injury Pattern Comments: Normal sinus rhythm rate of 67 no acute signs of HI or ischemia. Prior EKG tracings: available for review Prior: Unchanged Discharge Plan Triage Chief Complaint: Chest Pain ED Provider: Alex Kapadia Dx/Rx/DC Orders Clinical Impression: Muscle spasm Instructions: Muscle Spasm Prescriptions: New metaxalone 800 mg tablet 800 mg PO TID 7 Days Qty: 21 0RF oxycodone-acetaminophen [Percocet] 5-325 mg tablet 1 tab PO Q6H PRN (Reason: pain) 3 Days Qty: 10 0RF No Action metoprolol tartrate 50 mg tablet 25 mg PO BID Label Comments: TAKE 1 TABLET BY MOUTH EVERY 12 HOURS aspirin [Adult Low Dose Aspirin] 81 mg tablet,delayed release (DR/EC) 162 mg PO DAILY rosuvastatin 20 mg tablet 20 mg PO QHS Label Comments: Take 1 tablet by mouth daily at bedtime. acetaminophen [Tylenol Extra Strength] 500 mg tablet 1,000 mg PO BID PRN isosorbide mononitrate 30 mg tablet extended release 24 hr 30 mg PO DAILY Label Comments: TAKE 1 TABLET BY MOUTH ONCE DAILY cyclobenzaprine 10 mg tablet 10 mg PO TID PRN PRN (Reason: Muscle Spasm) Label Comments: TAKE 1/2 TO 1 TABLET THREE TIMES DAILY NEEDED FOR MUSCLE SPASM methylprednisolone 4 mg tablets,dose pack See Rx Instructions .ROUTE .COMPLEX Rx Instructions: 4 mg orally taper Last dose 07/04 omeprazole magnesium [Prilosec OTC] 20 mg Tablet,Delayed Release (Dr/Ec) 20 mg PO DAILY Primary Care Provider: Quang Hanson Referrals: Quang Hanson MD [Primary Care Provider] - 3-5 Days if not improving Activity Restrictions/Additional Instructions: Shower, warm bath and massage for your muscle spasm around your left shoulder blade. Skelaxin the muscle relaxant 1 pill 3 times a day for 7 days. Should start feeling better in 3 to 4 days. Limited Percocet for pain. Follow-up with your doctor. Disposition Disposition: Home, Self Care
[2022-07-03 11:23] LABS: Anion Gap 8 (5-15); BUN 20 mg/dL (7-18); BUN/Creat Ratio 19.6 RATIO (10-20); Calcium,Total 9.6 mg/dL (8.5-10.1); Chloride 103 mmol/L (98-107); Creatinine, Serum 1.02 mg/dL (0.70-1.30); EST Glomerular Filtration Rate 81 mL/min (>60); Est Glom Filt Rate - Afr Amer 98 mL/min (>60); Estimated Creatinine Clearance 103.13 ml/min; Glucose 101 mg/dL (74-106); Sodium Level 138 mmol/L (136-145); Troponin-I HS (w/2H Reflex) 6 pg/mL (3.0-78.0)
[2022-07-03] MEDS: morphine 8 MG/ML Syringe 6 MG IV (11:50)
[2022-07-03] MEDS: Ondansetron 4 MG/2 ML Vial IV (11:51)
[2022-07-03 13:04] LABS: Reflex Troponin-HS? (from REC) Y
== END 2022-07-03 12:58 | disposition home or self-care (01) ==
PROVIDERS: Emergency Provider Emergency Medicine; PCP Internal Medicine; Visit Provider Emergency Medicine
DX: M62.838 Other muscle spasm (principal); F17.210 Nicotine dependence, cigarettes, uncomplicated; I10 Essential (primary) hypertension; I25.10 Atherosclerotic heart disease of native coronary artery without angina pectoris; Z79.82 Long term (current) use of aspirin; Z95.820 Peripheral vascular angioplasty status with implants and grafts
CPT/HCPCS: 71045; 80048; 84484; 85025; 93005; 96374; 96375; 99283; A4216; J2405

== ENCOUNTER 2022-08-25 13:02 | Emergency (ER) | payer OTHER, SELFPAY ==
[2022-08-25 13:03] VITALS: BP 163/92; PULSE 91; RESP 21; TEMP 36.3; O2SAT 94; BMI 28.6
--- NOTE | 2022-08-25 13:32 | EKG12_ITS ---
Test Reason : CP Blood Pressure : / mmHG Vent. Rate : 093 BPM Atrial Rate : 093 BPM P-R Int : 160 ms QRS Dur : 086 ms QT Int : 344 ms P-R-T Axes : 044 082 063 degrees QTc Int : 427 ms Normal sinus rhythm Normal ECG Confirmed by ALEXANDRE HU, LENIN ([id number]), primer expeditor and drier PETR TRINIDAD ([id number]) on 08/26/2022 11:02:27 AM Referred By: KHADIJAH/MITZI Confirmed By:LENIN SCHROEDER MD
[2022-08-25 13:42] LABS: Absolute Lymphocyte Count 2.62 X10^3/uL (0.83-4.51); Absolute Neutrophil Count 4.1 X10^3/uL (2.0-7.7); Basophil# 0.11 X10^3/uL; Basophil% 1.5 % (0-1); Eosinophil# 0.28 X10^3/uL; Eosinophils% 3.7 % (0-5); Hematocrit 42.9 % (40-54); Lymphocyte # 2.62 X10^3/ul (0.83-4.51); Lymphocyte % 34.7 % (19-41); Mean Corpuscular Hgb 29.5 pg (27.0-32.0); Mean Corpuscular Volume 84.3 fL (80-94); Mean Platelet Vol. 9.8 fl (6.2-12.0); Monocyte# 0.43 X10^3/uL; Monocyte% 5.7 % (0-10); NRBC Flagged by Analyzer 0 % (0-5); Neutrophil # 4.08 X10^3/uL (2.7-7.7); Neutrophil % 54.1 % (47-70); Platelet Count 313 K/mm3 (150-450); RBC Distribution Width CV 13.5 % (11.6-14.6); RBC Distribution Width SD 41.5 fl (35.1-43.9); Red Blood Count 5.09 M/mm3 (4.6-6.2); White Blood Count 7.5 K/mm3 (4.4-11.0)
--- NOTE | 2022-08-25 13:52 | EDS_ITS ---
HPI History of Present Illness Chief Complaint: Chest Pain Informant: patient and spouse/S.O. Onset/Context/Timing Onset: Today Activity at onset: gradual Timing: Continuous Quality: Positive for Aching Location: Substernal, Right Chest and Left Chest Current Severity: Mild Maximum Severity: Mild Relieved By: Nothing Associated Symptoms: Positive for Lightheadedness; Negative for Nausea, Vomiting, Diaphoresis, Dyspnea, Cough, Fever, Acid Reflux or Palpitations Narrative Narrative: 61-year-old male who had a four-way bypass done in 2020 at [facility] in October. He was seen a month ago for atypical chest and back pain and was discharged home with musculoskeletal etiology. He was not admitted. He had a heart cath a year ago had no need for any stents at that time. Basically today was seated at home nothing exertional and midsternal pain radiating to both sides of his chest. Does not go to his left arm. No associated nausea or diaphoresis. No shortness of breath. He said he does feel lightheaded. When he said he just really has not come back to his baseline ever since he had four- way bypass almost 2 years ago. No recent travel or surgery. No leg pain or swelling. The pain is not pleuritic. He has never had a DVT or PE. No hemoptysis. Denies any recent illness. Prior Similar Symptoms: Yes Recent Illness/Hospitalization: No CVD Risk Factors: Positive for Smoking PE Risk Factors: Negative for Recent Travel/Surgery, Recent Immobilization, Prior DVT or PE, Cancer or OCP + Smoking + >/=35 TAD Risk Factors: Negative for Marfan's Syndrome [facility] Medical History Abnormal CT lung screening Anemia Anxiety and depression Arthritis Back pain Bloody stool BPH (benign prostatic hyperplasia) CAD (coronary artery disease) Chronic fatigue Chronic low back pain Colitis Difficulty balancing Difficulty balancing when standing Erectile dysfunction Fatigue Hay fever Hemorrhoids history of broken right hip History of stress test Hypersomnia Hypertension Knee pain Left kidney mass PRABHU (obstructive sleep apnea) Post-operative pain Shoulder pain Sleep apnea SOB (shortness of breath) Stomach ulcer Tobacco use disorder Vertigo Home Medications acetaminophen 500 mg tablet (Tylenol Extra Strength) 1,000 mg PO BID PRN 11/22/20 [History Last Taken Unknown] aspirin 81 mg tablet,delayed release (Adult Low Dose Aspirin) 162 mg PO DAILY 11/22/20 [History Last Taken Unknown] metoprolol tartrate 50 mg tablet 25 mg PO BID 11/22/20 [History Last Taken Unknown] rosuvastatin 20 mg tablet 20 mg PO QHS 11/22/20 [History Last Taken Unknown] isosorbide mononitrate 30 mg tablet,extended release 24 hr 30 mg PO DAILY 10/01/21 [History Last Taken Unknown] cyclobenzaprine 10 mg tablet 10 mg PO TID PRN PRN Muscle Spasm 07/03/22 [History Last Taken Unknown] metaxalone 800 mg tablet 800 mg PO TID 7 days #21 tabs 07/03/22 [Rx Last Taken Unknown] methylprednisolone 4 mg tablets in a dose pack See Rx Instructions .Route .COMPLEX 07/03/22 [History Last Taken Unknown] omeprazole magnesium 20 mg tablet,delayed release (Prilosec OTC) 20 mg PO DAILY 07/03/22 [History Last Taken Unknown] oxycodone-acetaminophen 5 mg-325 mg tablet (Percocet) 1 tab PO Q6H PRN pain 3 days #10 tabs 07/03/22 [Rx Last Taken Unknown] meclizine 50 mg tablet 50 mg PO BID PRN dizziness #30 tabs 08/14/22 [Rx Last Taken Unknown] oxycodone 5 mg tablet 5 mg PO Q6H PRN pain 3 days #10 tabs 08/25/22 [Rx Last Taken Unknown] Allergy/AdvReac Type Severity Reaction Status Date / Time oxycodone [From OxyContin] Allergy Rash Verified 08/25/22 13:02 prednisone Allergy Flush, Verified 08/25/22 13:02 insomnia, irregular heartbeat, irritability Family History Other Arthritis CVA (cerebral vascular accident) Depression Hypertension Surgical History History of nasal surgery History of orthopedic surgery History of quadruple bypass History of repair of hip joint S/P CABG x 4 Social History Smoking Status: Current every day smoker tobacco type: cigarettes Tobacco: How many years used: 38 alcohol intake: current alcohol intake frequency: a few times a week substance use type: marijuana what type of physical activity do you participate in: none ROS ROS ED ROS Narrative Denies recent illness. Chest pain today. Review of Systems ROS Unobtainable: Denies due to encephalopathy Constitutional Constitutional ED: Denies chills or fever(s) Eyes Eyes: Reports none ENT ENT ED: Denies ear pain or rhinorrhea Cardiovascular Cardiovascular: Reports as per HPI and chest pain; Denies palpitations or racing heartbeat Respiratory/Chest Respiratory/Chest: Denies cough or dyspnea Gastrointestinal Gastrointestinal: Denies abdominal pain, constipation, diarrhea, melena, nausea or vomiting Genitourinary Genitourinary ED: Denies dysuria or hematuria Musculoskeletal Musculoskeletal: Denies arthralgias Integumentary Denies abscess Neurologic Neurologic: Denies headache(s) Psychiatric Psychiatric: Denies anxiety Endocrine Endocrinology: Denies cold intolerance Hematologic/Lymphatic Hematologic/Lymphatic: Denies easy bleeding or easy bruising Allergic/Immunologic Allergic/Immunologic ED: Denies mouth swelling or tongue swelling EXAM Physical Exam Narrative Exam Narrative: 57-year-old male no acute distress. Vital signs stable afebrile. Pulse ox 94% on room air no signs hypoxia. He does not look septic or toxic in any distress. H EENT exam unremarkable. Neck nontender no JVD. Lungs clear to auscultation bilaterally. Heart regular rhythm rate about 90 no murmur. Chest wall nontender. He has a well-healed sternotomy incision. No redness. No discoloration. No discharge. Abdomen soft nontender. Normal bowel sounds no peritoneal signs. Moving all 4 extremities. 5-5 patient relations coordinator strength. Dorsi plantarflexion intact. Calves are nontender that edema. Radial pulses are equal symmetrical. Neurologically is awake and alert with no focal motor deficits. Const Vital Signs: 08/25/22 13:03 08/25/22 14:05 08/25/22 14:06 Temperature 97.3 F L Temperature Source Oral Pulse Rate 91 84 Respiratory Rate 21 H Blood Pressure 163/92 H 157/87 H Blood Pressure Mean 115 110 Pulse Ox 94 93 Oxygen Delivery Method Room Air Room Air Room Air 08/25/22 15:03 Temperature Temperature Source Pulse Rate 81 Respiratory Rate 14 Blood Pressure 150/86 H Blood Pressure Mean 107 Pulse Ox 94 Oxygen Delivery Method Room Air Positive well nourished and well developed; Negative for obese, cachectic, contractures or unkempt General Appearance ED: well developed and NAD; Negative for unkempt, cachectic, contractures or pallor Nutritional Appearance: Negative for cachectic or obese HEENT Reports moist mucous membranes; Denies dry mucous membranes normocephalic and atraumatic; Negative for trauma or tenderness Mouth ED: No dry mucous membranes Mouth: No dry mucous membranes Eyes PERRL and EOMs intact bilaterally General Eye ED: Negative for pale conjunctiva or scleral icterus Neck no lymphadenopathy, supple and no JVD General: Negative for tenderness Chest Wall inspection of chest normal and palpation of chest normal Chest: Negative for tenderness Resp normal respiratory effort and clear to auscultation bilaterally Effort and Inspection: Negative for respiratory distress Auscultation: Negative for rales, rhonchi or wheezes Cardio regular rate, regular rhythm, S1 normal heart sound, S2 normal heart sound and no murmurs Rate: Negative for bradycardia or tachycardic Rhythm: Negative for abnormal rhythm Peripheral Pulses: pulses 2+ throughout GI normal to inspection, nondistended, normoactive bowel sounds, soft to palpation, non-tender, non-distended and no masses Auscultation: Negative for hyperactive bowel sounds Palpation: Negative for splenomegaly Back/Spine no CVA tenderness and no thoracic nor lumbar tenderness General Back: Negative for CVA tenderness Cervical Spine: Negative for cervical spine tenderness Extremity normal to inspection General Extremety ED: Negative for edema, pulses abnormal or tenderness General Extremity: Negative for edema or pulses abnormal Neuro oriented x3 and CN's II-XII intact bilaterally Sensorium / Orientation: awake, alert, oriented to person, oriented to place and oriented to time; Negative for confused, lethargic or stuporous Motor Exam: strength 5/5 throughout Psych mental status grossly normal Appearance: Negative for unkempt Attitude: No agitated Mood & Affect: Negative for depressed, anxious or tearful Skin no rashes or lesions noted and no wounds General Skin Exam: Negative for jaundice, pallor or other Rashes: No rashes noted Trauma: Negative for abrasion or laceration Heart Score History: Slightly/Non-Suspicious ECG: Normal Age: >45 - <65 years Risk Factors: >/= 3 Risk Factors or History of CAD Troponin: </= Normal Limit Score: 3 MDM MDM MDM Narrative Medical decision making narrative: 57-year-old male with nonexertional chest pain. History of prior four-way bypass 2 years ago. History of cardiac cath a year ago which was unremarkable. Undergo cardiac work-up. No history or risk factors for DVT or PE. Repeat exam at 3:42 PM patient doing well. We were given giving nitroglycerin because he requested some for his chest pain he did not take that. He was given morphine and Zofran and his pain is much better. Currently is doing well. Exam is unchanged and normal otherwise. We went over all his test results basically normal CBC, chemistry and troponin. He has had this pain for months. I compared it to prior labs and they were unchanged. Will be discharged home. I will send a prescription for 10 oxycodone to his pharmacy. 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 History & Record Review Discussion w/independent historian: Patient and Family Additional record(s) reviewed:: Prior inpatient record, Prior outpatient record, Prior ED visit, Prior labs and No prior records Lab Data Attestation: I reviewed the patient's lab results. Lab results narrative: CBC normal. White count of 7. H&H 15 and 42. Platelets 313. Chemistries show a gap of 6. Normal BUN and creatinine of 14 and 1. Glucose 132. Troponin is normal at 5. Chest x-ray is unremarkable. EKG is normal sinus rhythm. Compared to prior labs unremarkable no significant change. Labs: Laboratory Results - last 24 hr 08/25/22 13:05 WBC 7.5 RBC 5.09 Hgb 15.0 Hct 42.9 MCV 84.3 MCH 29.5 MCHC 35.0 RDW Std Deviation 41.5 RDW Coeff of Afsaneh 13.5 Plt Count 313 MPV 9.8 Immature Gran % (Auto) 0.300 Neut % (Auto) 54.1 Lymph % (Auto) 34.7 Warren % (Auto) 5.7 Eos % (Auto) 3.7 Baso % (Auto) 1.5 H Absolute Neuts (auto) 4.1 Absolute Lymphs (auto) 2.62 Nucleated RBC % 0 Sodium 138 Potassium 3.6 Chloride 104 Carbon Dioxide 28.0 Anion Gap 6 BUN 14 Creatinine 1.09 Estim Creat Clear Calc 86.54 Est GFR (MDRD) Af Amer 90 Est GFR (MDRD) Non-Af 75 BUN/Creatinine Ratio 12.8 Glucose 132 H Calcium 9.7 Troponin I High Sens 5 Radiography Chest X-Ray - ED: 1 View, Read by ED Physician, Read by Radiologist, Heart, Lungs, Mediastinum, Bony Structures, No Acute Disease and Chronic Changes Diagnostic Testing: Clinical Impression(s) from Imaging Studies Chest X-Ray 08/25/22 14:00 IMPRESSION: No active disease. Electronically Signed: Eduardo Gaviria MD at 14:20 EDT , Chest x-ray, portable, single view interpreted by myself the radiologist shows no acute abnormality. Normal cardiac silhouette. Normal mediastinum and aortic knob. Rhythm Strip Rhythm Strip: Sinus Rhythm Rate: 93 Ectopy: None EKG Initial EKG: Attestation: I personally reviewed and interpreted this EKG as follows: Interpretation: Sinus Rhythm and No Acute Injury Pattern Comments: Normal sinus rhythm rate of 93 no acute signs of OH or ischemia. Prior EKG tracings: available for review Prior: Unchanged Discharge Plan Triage Chief Complaint: Chest Pain ED Provider: Alex Kapadia Dx/Rx/DC Orders Clinical Impression: History of CAD (coronary artery disease), Hx of CABG, Chest pain Instructions: ED Chest Pain, Uncertain Cause Prescriptions: New oxycodone 5 mg tablet 5 mg PO Q6H PRN (Reason: pain) 3 Days Qty: 10 0RF No Action metoprolol tartrate 50 mg tablet 25 mg PO BID Patient Comments: TAKE 1 TABLET BY MOUTH EVERY 12 HOURS aspirin [Adult Low Dose Aspirin] 81 mg tablet,delayed release (DR/EC) 162 mg PO DAILY rosuvastatin 20 mg tablet 20 mg PO QHS Patient Comments: Take 1 tablet by mouth daily at bedtime. acetaminophen [Tylenol Extra Strength] 500 mg tablet 1,000 mg PO BID PRN isosorbide mononitrate 30 mg tablet extended release 24 hr 30 mg PO DAILY Patient Comments: TAKE 1 TABLET BY MOUTH ONCE DAILY meclizine 50 mg tablet 50 mg PO BID PRN (Reason: dizziness) Qty: 30 1RF cyclobenzaprine 10 mg tablet 10 mg PO TID PRN PRN (Reason: Muscle Spasm) Patient Comments: TAKE 1/2 TO 1 TABLET THREE TIMES DAILY NEEDED FOR MUSCLE SPASM methylprednisolone 4 mg tablets,dose pack See Rx Instructions .ROUTE .COMPLEX Rx Instructions: 4 mg orally taper Last dose 07/04 omeprazole magnesium [Prilosec OTC] 20 mg Tablet,Delayed Release (Dr/Ec) 20 mg PO DAILY metaxalone 800 mg tablet 800 mg PO TID 7 Days Qty: 21 0RF oxycodone-acetaminophen [Percocet] 5-325 mg tablet 1 tab PO Q6H PRN (Reason: pain) 3 Days Qty: 10 0RF Primary Care Provider: Quang Hanson Referrals: Quang Hanson MD [Primary Care Provider] - As soon as possible Activity Restrictions/Additional Instructions: Follow-up with both your primary care physician and your floral design teacher. All your labs, EKG and chest x-ray were normal today and no significant change from prior. Limited oxycodone for pain and Motrin. Disposition Disposition: Home, Self Care
[2022-08-25 13:56] LABS: Anion Gap 6 (5-15); BUN 14 mg/dL (7-18); BUN/Creat Ratio 12.8 RATIO (10-20); Calcium,Total 9.7 mg/dL (8.5-10.1); Chloride 104 mmol/L (98-107); Creatinine, Serum 1.09 mg/dL (0.70-1.30); EST Glomerular Filtration Rate 75 mL/min (>60); Est Glom Filt Rate - Afr Amer 90 mL/min (>60); Estimated Creatinine Clearance 86.54 ml/min; Glucose 132 mg/dL (74-106); Potassium 3.6 mmol/L (3.5-5.1); Sodium Level 138 mmol/L (136-145); Troponin-I HS (w/2H Reflex) 5 pg/mL (3.0-78.0)
--- NOTE | 2022-08-25 14:00 | RAD_ITS ---
STUDY: X-RAY CHEST REASON FOR EXAM: Male, 57 years old. chest pain TECHNIQUE: Single AP portable view of the chest. COMPARISON: 07/03/2022 FINDINGS: Status post median sternotomy. The lungs are clear and expanded. There is no demonstrated pleural abnormality. Normal size heart. Normal mediastinum and randal. Normal visualized pulmonary arteries. Normal visualized aortic arch and descending thoracic aorta. Normal visualized thoracic spine. Normal visualized ribs, clavicles, and shoulders. There is no demonstrated abnormality of the visualized soft tissue structures of the upper abdomen. RAD/Chest 1 View (Portable) IMPRESSION: No active disease. Electronically Signed: Eduardo Gaviria MD at 14:20 EDT ,
[2022-08-25 14:06] VITALS: BP 157/87; PULSE 84; O2SAT 93
[2022-08-25 15:03] VITALS: BP 150/86; PULSE 81; RESP 14; O2SAT 94
[2022-08-25] MEDS: morphine 8 MG/ML Syringe 6 MG IV (15:31)
[2022-08-25] MEDS: Ondansetron 4 MG/2 ML Vial IV (15:31)
[2022-08-25 15:36] LABS: Reflex Troponin-HS? (from REC) Y
[2022-08-25 16:03] VITALS: BP 151/94; PULSE 67; RESP 14; O2SAT 97
== END 2022-08-25 16:12 | disposition home or self-care (01) ==
PROVIDERS: Emergency Provider Emergency Medicine; PCP Internal Medicine; Visit Provider Emergency Medicine
DX: R07.9 Chest pain, unspecified (principal); I25.10 Atherosclerotic heart disease of native coronary artery without angina pectoris; I10 Essential (primary) hypertension; F17.210 Nicotine dependence, cigarettes, uncomplicated; Z79.82 Long term (current) use of aspirin; Z79.899 Other long term (current) drug therapy; R42 Dizziness and giddiness; Z95.1 Presence of aortocoronary bypass graft
CPT/HCPCS: 71045; 80048; 84484; 85025; 93005; 96374; 96375; 99283; A4216; J2405

== ENCOUNTER → 2022-09-11 | Outpatient (CLI) | payer OTHER, SELFPAY ==
--- NOTE | 2022-09-11 08:15 | MRI_ITS ---
INDICATION: LUMBOSACRAL SPONDYLOSIS EXAMINATION: MRI - MR Spine Lumbar W/O Contrast TECHNIQUE: Multiplanar and multisequence MR images of the lumbar spine. IV Contrast Dosage and Agent: None. COMPARISON: FINDINGS: VERTEBRAE: Vertebral body heights are preserved. Normal vertebral bodies and posterior elements. VERTEBRAL ALIGNMENT: No spondylolisthesis. There is preservation of the normal lumbar lordosis. CORD: Normal position and signal intensity of the conus medullaris. L1/L2: Normal disc height and morphology. Normal spinal canal, lateral recesses and neuroforamina. L2/L3: Normal disc height and morphology. Normal spinal canal, lateral recesses and neuroforamina. L3/L4: Normal disc height and morphology. Normal spinal canal, lateral recesses and neuroforamina. L4/L5: There is broad-based disc herniation. There is mild bilateral foraminal stenosis. There is ligamentous hypertrophy and mild spinal canal stenosis. L5/S1: Normal disc height and morphology. Normal spinal canal, lateral recesses and neuroforamina. SOFT TISSUES: Unremarkable. MRI/Spine Lumbar (Routine) IMPRESSION: Mild broad-based disc herniation at L4/5 with mild foraminal stenosis bilaterally. Electronically Signed: Garcia Carreon, at 14:38 EDT ,
== END | disposition home or self-care (01) ==
PROVIDERS: PCP Internal Medicine; Referring Provider Nurse Practitioner Acute Care; Visit Provider Nurse Practitioner Acute Care
DX: M46.96 Unspecified inflammatory spondylopathy, lumbar region (principal); M51.37 Other intervertebral disc degeneration, lumbosacral region; M47.817 Spondylosis without myelopathy or radiculopathy, lumbosacral region
CPT/HCPCS: 72148

== ENCOUNTER → 2023-03-06 | Outpatient (CLI) | payer OTHER, SELFPAY ==
--- OUTSIDE RECORDS SUMMARY | 2023-03-06 08:28 | XMS RPT_ITS | CCD ---
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.Kaycee VASQUEZ Unavailable Mauri Chavez MD Unavailable MAURI CHAVEZ Referring Unavailable OLEGHE, EFEWONGBE B Primary Care Unavailable MAURI CHAVEZ Attending Unavailable MAURI CHAVEZ Referring Unavailable OLEGHE, EFEWONGBE B Primary Care Unavailable SCOTT MAURI M Referring Unavailable OLEGHE, EFEWONGBE B Primary Care Unavailable SCOTT MAURI M Attending Unavailable SCOTT MAURI M Referring Unavailable OLEGHE, EFEWONGBE B Primary Care Unavailable Quang Hanson MD Primary Care Provider [phone] Kalin Alonso MD 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 [employer]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.Kaycee VASQUEZ Unavailable Mauri Chavez MD Unavailable PHILLIP, EFEWONGBE B Primary Care Unavailable SCOTT MAURI M Attending Unavailable Allergies Allergy Classification Reported Allergen(s) Allergy Type Date of Onset Reaction(s) Facility (20 sources) oxyCODONE; Translations: [OXYCODONE] Drug Allergy 04-24-2015 Rash [facility] Work Phone: (20 sources) predniSONE; Translations: [PREDNISONE] Drug Allergy 04-24-2015 Intolerance [facility] Work Phone: Medications Current Medications Medication Drug Class(es) Dates Sig (Normalized) Sig (Original) perflutren lipid microspheres 1.3 mL in NaCl (PF) 0.9% 10 mL injection (DEFINITY) (14 sources) Start: 01-15-2021 End: 04-16-2022 perflutren lipid microspheres 1.3 mL in NaCl (PF) 0.9% 10 mL injection (DEFINITY) 125 ml sodium chloride 9 mg/ml prefilled syringe (14 sources) Start: 01-15-2021 End: 04-16-2022 sodium chloride 0.9 % (flush) 10 mL (BD POSIFLUSH) Completed/Discontinued Medications Medication Drug Class(es) Dates Sig (Normalized) Sig (Original) acetaminophen 500 mg oral tablet (20 sources) Start: 10-29-2020 take 2 tablets by mouth every six hours as needed acetaminophen (TYLENOL) 500 mg tablet Take 2 tablets by mouth every 6 hours as needed for pain. 0 10/29/2020 Active Problems Active Problems Problem Classification Problem Date Documented Da te Episodic/Chronic Anxiety disorders (20 sources) Anxiety; Translations: [Anxiety disorder, unspecified] Onset: 01-14-2021 01-14-2021 Chronic Coronary atherosclerosis and other heart disease (20 sources) Stable angina due to coronary arteriosclerosis; Translations: [Atherosclerotic heart disease of [place] coronary artery with other forms of angina pectoris] Onset: 10-22-2020 10-29-2020 Chronic Coronary atherosclerosis and other heart disease (1 source) Presence of aortocoronary bypass graft; Translations: [Hx of CABG] Onset: 02-05-2023 Episodic Disorders of lipid metabolism (20 sources) Dyslipidemia; Translations: [Hyperlipidemia, unspecified] Onset: 01-14-2021 Chronic Essential hypertension (20 sources) Hypertensive disorder; Translations: [Essential (primary) hypertension] Onset: 01-14-2021 01-14-2021 Chronic Gastroduodenal ulcer (except hemorrhage) (20 sources) Gastric ulcer; Translations: [Gastric ulcer, unspecified as acute or chronic, without hemorrhage or perforation] Onset: 01-14-2021 01-14-2021 Chronic Mood disorders (20 sources) Depressive disorder; Translations: [Depressive disorder] Onset: 01-14-2021 01-14-2021 Chronic Osteoarthritis (20 sources) Arthritis; Translations: [Unspecified osteoarthritis, unspecified site] Onset: 01-14-2021 01-14-2021 Chronic Other lower respiratory disease (4 sources) Dyspnea on exertion; Translations: [Other forms of dyspnea] Episodic Residual codes; unclassified (20 sources) Sleep apnea; Translations: [Sleep apnea, unspecified] Onset: 01-14-2021 01-14-2021 Chronic Residual codes; unclassified (1 source) Obstructive sleep apnea (adult) (pediatric); Translations: [Obstructive sleep apnea syndrome] Onset: 01-14-2021 Chronic Substance-related disorders (20 sources) Nicotine dependence; Translations: [Nicotine dependence, unspecified, uncomplicated] Onset: 10-26-2020 10-29-2020 Chronic Past or Other Problems Problem Classification Problem Date Documented Date Episodic/Chronic Cardiac dysrhythmias (20 sources) Tachycardia; Translations: [Tachycardia, unspecified] Onset: 01-14-2021 01-14-2021 Episodic Conditions associated with dizziness or vertigo (20 sources) Vertigo; Translations: [Dizziness and giddiness] Onset: 01-14-2021 01-14-2021 Episodic Immunizations and screening for infectious disease (20 sources) Anti-nuclear factor positive; Translations: [Other specified abnormal immunological findings in serum] Onset: 01-14-2021 01-14-2021 Episodic Nonspecific chest pain (4 sources) Precordial pain; Translations: [Precordial pain] Onset: 09-03-2021 Episodic Other connective tissue disease (20 sources) Difficulty balancing; Translations: [Other symptoms and signs involving the nervous system] Onset: 01-14-2021 01-14-2021 Episodic Other connective tissue disease (20 sources) Bursitis of olecranon of right elbow; Translations: [Olecranon bursitis, right elbow] Onset: 01-14-2021 01-14-2021 Episodic Other lower respiratory disease (20 sources) Dyspnea; Translations: [Shortness of breath] Onset: 01-14-2021 01-14-2021 Episodic Other nervous system disorders (20 sources) Postoperative pain ; Translations: [Other acute postprocedural pain] Onset: 01-14-2021 01-14-2021 Episodic Other non-traumatic joint disorders (20 sources) Pain in unspecified knee; Translations: [Pain in joint, lower leg] Onset: 01-14-2021 01-14-2021 Episodic Other non-traumatic joint disorders (20 sources) Shoulder pain; Translations: [Pain in unspecified shoulder] Onset: 01-14-2021 01-14-2021 Episodic Spondylosis; intervertebral disc disorders; other back problems (20 sources) Backache; Translations: [Dorsalgia, unspecified] Onset: 01-14-2021 01-14-2021 Episodic Results Test Name Value Interpretation Reference Range Facil ity Vital Signs Date Time Vital Sign Value Performing Clinician Faci lity 11-05-2021 13:00-0400 Heart rate 77 /min Anette Garcia MD Work Phone: [facility] 11-05-2021 13:00-0400 Respiratory rate 26 /min Anette Garcia MD Work Phone: [facility] 11-05-2021 13:00-0400 SaO2% (BldA) [Mass fraction] 98 % Anette Garcia MD Work Phone: [facility] 11-05-2021 12:45-0400 Diastolic blood pressure 135 mm[Hg] Anette Garcia MD Work Phone: [facility] 11-05-2021 12:45-0400 Systolic blood pressure 171 mm[Hg] Anette Garcia MD Work Phone: [facility] 10-15-2021 13:01-0400 Body height 182.9 cm Mauri Chavez MD Work Phone: [facility] 10-15-2021 13:01-0400 Body weight 94.48 kg Mauri Chavez MD Work Phone: [facility] 10-15-2021 13:01-0400 Diastolic blood pressure 67 mm[Hg] Mauri Chavez MD Work Phone: [facility] 10-15-2021 13:01-0400 Heart rate 71 /min Mauri Chavez MD Work Phone: [facility] 10-15-2021 13:01-0400 SaO2% (BldA) [Mass fraction] 99 % Mauri Chavez MD Work Phone: [facility] 10-15-2021 13:01-0400 Systolic blood pressure 135 mm[Hg] Mauri Chavez MD Work Phone: [facility] 09-03-2021 14:26-0400 Body height 182.9 cm Mauri Chavez MD Work Phone: [facility] 09-03-2021 14:26-0400 Body temperature 97.5 [degF] Mauri Chavez MD Work Phone: [facility] 09-03-2021 14:26-0400 Body weight 94.8 kg Mauri Chavez MD Work Phone: [facility] 09-03-2021 14:26-0400 Diastolic blood pressure 71 mm[Hg] Mauri Chavez MD Work Phone: [facility] 09-03-2021 14:26-0400 Heart rate 81 /min Mauri Chavez MD Work Phone: [facility] 09-03-2021 14:26-0400 SaO2% (BldA) [Mass fraction] 99 % Mauri Chavez MD Work Phone: [facility] 09-03-2021 14:26-0400 Systolic blood pressure 141 mm[Hg] Mauri Chavez MD Work Phone: [facility] Encounters Encounter Date Encounter Type Care Provider Facility Start: 02-23-2023 End: 02-23-2023 ambulatory [facility] Facility:[facility] Start: 12-29-2022 Refill Mauri Chavez MD Work Phone: Cardiology Procedures Date Procedure Procedure Detail Performing Clinician Start: 11-05-2021 End: 11-05-2021 O2 SATURATION (POC) Anette Garcia MD Work Phone: Start: 09-08-2021 Myocardial spect mul tiple studies Mauri Chavez MD Work Phone: Start: 10-28-2020 History of coronary artery bypass grafting S/P CABG x 4 Mauri Chavez MD Work Phone: Start: 10-23-2020 Lipid 1996 panel - S anushka or Plasma Mauri Chavez MD Work Phone: History of coronary artery bypass grafting Hx of CABG Mauri Chavez MD Work Phone: History of coronary artery bypass grafting Hx of CABG Mfi 2 Work Phone: History of coronary artery bypass grafting Hx of CABG Mauri Chavez MD Work Phone: History of coronary artery bypass grafting Hx of CABG Mauri Chavez MD Work Phone: Plan of Treatment Date Care Activity Detail Author Start: 10-23-2025 Lipid 1996 panel - Serum or Plasma Lipid Screening [facility] Start: 10-23-2025 LIPID SCREEN LIPID SCREEN [facility] Start: 11-01-2024 DIABETES SCREEN DIABETES SCREEN [facility] Start: 11-01-2024 Diabetes Screening Diabetes Screening [facility] Start: 10-29-2023 DIABETES SCREEN DIABETES SCREEN [facility] Start: 10-23-2022 Influenza vaccination [facility] Start: 05-15-2022 PROSTATE CANCER SCREENING DISCUSSION PROSTATE CANCER SCREENING DISCUSSION [facility] Start: 10-23-2021 Hepatitis B surface antibody level LDL CHOLESTEROL [facility] Start: 10-23-2021 Influenza vaccination INFLUENZA (#1) [facility] Start: 10-23-2020 Influenza vaccination INFLUENZA (#1) [facility] Start: 05-15-2017 SHINGRIX VACCINE (1 of 2) SHINGRIX VACCINE (1 of 2) [facility] Start: 04-02-2016 Urine microalbumin profile DTaP,Tdap,Td Vaccine (1 - Tdap) [facility] Start: 05-15-2012 COLOGUARD (FIT-DNA) COLOGUARD (FIT-DNA) [facility] Start: 05-15-2012 Colonoscopy COLONOSCOPY [facility] Start: 05-15-2012 COLORECTAL CANCER SCREENING COLORECTAL CANCER SCREENING [facility] Start: 05-15-[address] COLONOGRAPHY [facility] Start: 05-15-2012 FECAL OCCULT BLOOD FECAL OCCULT BLOOD [facility] Start: 05-15-2012 SIGMOIDOSCOPY SIGMOIDOSCOPY [facility] Start: 05-15-1986 Urine microalbumin profile [facility] Start: 05-15-1985 ANNUAL PCP TEAM CHRONIC DISEASE VISIT ANNUAL PCP TEAM CHRONIC DISEASE VISIT [facility] Start: 05-15-1985 BP CONTROLLED (<130/80) BP CONTROLLED (<130/80) [facility] Start: 05-15-1985 HEPATITIS C SCREENING HEPATITIS C SCREENING [facility] Start: 05-15-1985 HIV SCREENING HIV SCREENING [facility] Start: 05-15-1973 PNEUMOCOCCAL (1 - PCV) PNEUMOCOCCAL (1 - PCV) [facility] Start: 05-15-1973 Pneumococcal vaccination Pneumococcal Vaccine (1 - PCV) [facility] Start: 05-15-1972 COVID-19 VACCINE (1) COVID-19 VACCINE (1) [facility] Start: 1967 COVID-19 VACCINE (#1) COVID-19 VACCINE (#1) [facility] Start: 1965 HEPATITIS B (1 of 3 - 3-dose series) HEPATITIS B (1 of 3 - 3-dose series) [facility] Start: 1965 Hepatitis B Vaccine (1 of 3 - 3-dose series) Hepatitis B Vaccine (1 of 3 - 3-dose series) [facility] End: 09-03-2022 ECG COMPLETE ECG COMPLETE ECG Routine Precordial pain 1 Occurrences starting 09/03/2021 until 09/03/2022 [facility] Work Phone: Payers Date Payer Category Payer Unknown KASSI CALDERON PPO [id number] 2018-Present [phone] [facility] [id number] [place] [address] PPO [id number] 2018 Unknown [id number] 2018 Unknown [id number] Social History Date Type Detail Facility Start: 04-24-2015 End: 11-26-2020 Tobacco smoking status NHIS Smokes tobacco daily [facility] Work Phone: History of tobacco use Cigarette Smoker [facility] Work Phone: Start: 04-24-2015 End: 03-20-2022 Cigarettes smoked current (pack per day) - Reported 0.5 [facility] Start: 04-24-2015 End: 11-26-2020 Tobacco use and exposure Smokeless tobacco non-user [facility] Work Phone: Start: 04-23-2021 End: 10-16-2021 Alcohol intake Not Asked [facility] Start: 1965 Sex Assigned At Not on file [facility] Start: 03-24-2021 End: 11-05-2021 Exposure to SARS-CoV-2 (event) Not sure [facility] Start: 10-16-2021 End: 03-20-2022 Tobacco use panel [facility] National Score (1-10 0), lower number is lower risk 57 [facility] Clinical Notes 05-21-2021 to 02-23-2023 Telephone Encounter - Celia Mujica LPN - 12/29/2022 7:39 AM ESTTelephone Encounter - Michelle March - 11/09/2022 1:50 PM EDTTelephone Encounter - Estefani Butt - 05/29/2022 9:01 AM EDT Note Date & Type Note Facility 02-23-2023 Note HNO ID: [id number] Author: Mauri Chavez MD Service: ? Author Type: Physician Type: Progress Notes Filed: 02/23/2023 12:11 PM Note Text: Chief Complaint: Patient presents with: Cardiology Follow Up : Coronary artery disease History of Present Illness: Hayden Pendleton is a 55 year old male with history of essential hypertension, rheumatoid arthritis, dyslipidemia, smoker who was referred by his primary care physician for an abnormal stress test. Patient has been having chest discomfort associated with shortness of breath on exertion for the last 1 year. He describes the pain as sharp nonradiating associated with lightheadedness. Denies palpitations. He also has been dealing with vertigo on other times. He has not passed out and has no leg swelling. Patient said he had an exercise stress echo at [facility] and was referred here to see a marionette performer after that. I do not have any records from his PCPs office. 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 He underwent four-vessel CABG on 10/25/[address] Alonso. Postop course was uneventful. He has been enrolled in cardiac rehab at [facility]. I received notification from them that PVCs increase in frequency when he exerts himself during exercises so they had to back down a bit. Patient says he does not have any chest pain or shortness of breath. 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 Denies palpitations lightheadedness syncope orthopnea PND or leg pain. 04/23/2021: At today's visit patient has constant soreness on the left pectoral region. He says his shortness of breath has improved after his bypass surgery. Denies anginal symptoms. Denies any palpitations lightheadedness syncope orthopnea PND or leg edema. Patient says he was not able to do many cardiac rehab sessions because of his work schedule. 09/03/2021: For the last 1 month patient has been complaining of shortness of breath on exertion and currently is at NYHA class III. Patient's says just moving from 1 room to another at home causes him to be short of breath. He also has been describing sharp left-sided chest pain. At times it last for a few seconds other times it last longer. Additionally he also feels tired. He said he felt well for a period of time after his bypass surgery but the symptoms now have been present for the last few weeks. Because of the symptoms he had called to the office and he was recommended to go to the emergency room for evaluation. He said he went to the [facility] ER on Wednesday. He said they did EKG and blood work and sent him home to follow-up with a marionette performer. 10/15/2021: Patient was started on Imdur at the last office visit as a second antianginal agent. He said it did not help him at all so he stopped taking it after a month supply ran out. He has constant chest tightness starting in the left side and radiating to the right side of the chest. Additionally he also has numbness in the left precordial area. He says he has a shortness of breath on exertion which he has been having for the last few months and is severely affected by the humidity he says. He says at home if he is in the cooler atmosphere under air conditioning he does not have the symptom as much but the moment he steps outside his shortness of breath gets worse. He recently saw a c d still operator who did a lung cancer screening CAT scan. Additionally he also had PFTs done recently and is due to see the c d still operator in follow-up next week. 02/23/2023: Patient denies any chest pain shortness of breath palpitations lightheadedness syncope orthopnea PND or leg edema. He continues to have some mild discomfort in the right parasternal region. This has been worked up in the past with normal stress test and heart catheterization showing patent grafts. He gets tired during the daytime easily. PAST MEDICAL HISTORY Diagnosis Date CAD (coronary artery disease) Dyslipidemia HTN (hypertension) Hx of CABG Low back pain Rheumatoid arthritis (HCC) PAST SURGICAL HISTORY Procedure Laterality Date CABG (4) VEIN GRAFTS AND ARTERIAL GRAFT(S) 10/25/2020 HIP SURGERY HX Right SCAPULA Right FAMILY HISTORY Problem Relation Age of Onset Heart Attack Mother Heart Attack Sister Social History Tobacco Use Smoking status: Every Day Packs/day: .5 Types: Cigarettes Smokeless tobacco: Never Vaping Use Vaping Use: Never used Substance Use Topics Alcohol use: Not Currently Comment: occ Drug use: Yes Frequency: 7.0 times per week Types: Marijuana Current Outpatient Medications Medication Sig cholecalciferol, vitamin D3, (VITAMIN D3 ORAL) Take by mouth once daily. isosorbide mononitrate ER (IMDUR) 30 mg 24 hr tablet Take 1 tablet by mouth once daily. rosuvastatin (CRESTOR) 20 mg (more content not included)... [facility] 12-29-2022 Miscellaneous Notes Patient's request for medication is as follows: Requested Prescriptions Pending Prescriptions Disp Refills metoprolol tartrate, short acting, (LOPRESSOR) 25 mg tablet [Pharmacy Med Name: Metoprolol Tartrate 25 MG Oral Tablet] 60 tablet 1 Sig: Take 1 tablet by mouth twice daily Last seen 10/15/2021. Over due follow up scheduled for 02/23/2023. Prescription(s) as above. Please process accordingly. Celia Mujica LPN documented in this encounter [facility] 11-09-2022 Miscellaneous Notes I called to schedule and overdue follow up with Dr. Chavez.LVM Pt. scheduled for 02/23/2023 at 11:40 in [facility].Please update Pt. insurance. Michelle March November 09, 2022 1:53 PM Last seen 10/15/2021. Clerical to call pt to schedule pt. Harrison Silveira LPN documented in this encounter [facility] 11-09-2022 Miscellaneous Notes Patient's request for medication is as follows: Requested Prescriptions Pending Prescriptions Disp Refills metoprolol tartrate, short acting, (LOPRESSOR) 25 mg tablet 90 tablet 0 Sig: Take 1 tablet by mouth twice daily. Last seen 10/15/2021. Message sent to Clerical to schedule pt. Prescription(s) as above. Please process accordingly. Harrison Silveira LPN documented in this encounter [facility] 09-30-2022 Miscellaneous Notes Pended refill for Imdur 30 mg and lopressor 25 mg CECILIA 10/15/22 [facility] 11/05/21 documented in this encounter [facility] 05-29-2022 Miscellaneous Notes Patient's request for medication is as follows: Requested Prescriptions Pending Prescriptions Disp Refills metoprolol tartrate, short acting, (LOPRESSOR) 25 mg tablet [Pharmacy Med Name: Metoprolol Tartrate 25 MG Oral Tablet] 90 tablet 0 Sig: Take 1 tablet by mouth twice daily Last seen 04/23/21.clerical notified for follow -up appt. Prescription(s) as above. Please process accordingly. Mohini Alexander LPN documented in this encounter [facility] 05-29-2022 Miscellaneous Notes Refill is already pending for Lopressor [address] Chavez Hayden called and he is totally out of his metoprolol tartrate, he has been out for 2 days. He asked if Dr. Chavez could send in a prescription refill to same pharmacy [facility]. Could someone assist him? Thank you, Estefani Butt documented in this encounter [facility] 12-08-2021 Miscellaneous Notes Patient's request for medication is as follows: Requested Prescriptions Pending Prescriptions Disp Refills isosorbide mononitrate ER (IMDUR) 30 mg 24 hr tablet [Pharmacy Med Name: Isosorbide Mononitrate ER 30 MG Oral Tablet Extended Release 24 Hour] 90 tablet 2 Sig: Take 1 tablet by mouth once daily Last seen 10/15/2021. Prescription(s) as above. Please process accordingly. Celia Mujica LPN documented in this encounter [facility] 11-12-2021 Miscellaneous Notes Letter faxed for cardiac appointment and cardiac catheterization date to Principal absence management for patient to be excused from work. Spoke with spouse and instructed her to have PCP complete the [facility] paperwork for his shortness of breath since cardiac workup is negative. Birgit Anderson RN Received FMLA paperwork from [facility] [employer] [facility] for Dr. Chavez. Spoke with spouse who stated patient needs an excuse for Hayden to be off work for his cardiac appointment and the cardiac catheterization he had completed. Letter needs to be faxed to [phone]. Birgit Anderson RN documented in this encounter [facility] 11-05-2021 Procedure note LEFT HEART CATHETERIZATION PROCEDURE NOTE Surgery/Procedure Date: 11/05/2021 Referring Physician: Clinical History: This is a 56 year old male with CAD and CABG ( WELLS TO LAD,SVG TO OM, SVG TO PDA, SVG TO D1) Consent: Informed consent was obtained after the risks, benefits, and alternatives to and of this procedure were discussed in detail with the patient. Procedure in Detail: The patient was brought to the cardiac catheterization laboratory, prepped and draped in the usual sterile fashion. Anxiolysis was achieved with intravenous and intravenous benadryl. Local anesthesia was achieved over the wrist with 1% lidocaine. A pre-flushed 6-Irish sheath was inserted into the femoral artery via the Seldinger technique without complications. Retrograde percutaneous diagnostic coronary angiography and left ventriculography were performed using a Loree left 4 catheter, a 3-D RC catheter, and an angled pigtail catheter. There were no complications of the procedure. Findings: Angiography: LEFT MAIN: Severe distal left main 90% . LEFT CIRCUMFLEX: Severe [place] disease. LEFT ANTERIOR DESCENDING: Moderate proximal disease. RIGHT CORONARY ARTERY: known occluded. LEFT VENTRICULOGRAPHY: Normal LV size and function LVEF=60% WELLS to LAD patent. SVG to D1 patent. SVG to OM patent. SVG to PAD. Right heart cath: RA 6/4 mean 3 RV 31/0 mean 5 PA 31/7 mean 18 PW 15/17 mean 10 CO 6.48 PA O2 70% At this point, the procedure was terminated. All diagnostic wires and catheters were removed. Recommendations: 1. Daily aspirin indefinitely 2. MEDICAL THERAPY. 3. Statin use 4. Secondary cardiac prevention measures. SIGNATURE: Anette Garcia MD PATIENT NAME: Hayden Pendleton DATE: November 05, 2021 TIME: 11:32 AM documented in this encounter [facility] 09-14-2022 History and physical note UPDATED H&P PRE-CARDIAC CATHETERIZATION SERVICE DATE: 11/05/2021 SERVICE TIME: 9:23 PHYSICAL EXAM MUST BE COMPLETED ON ADMISSION The History and Physical (completed in the past 30 days) has been reviewed and the patient has been examined. The contents accurately reflect the patient's condition with the following additions or revisions since the H&P was completed. Examination indicates no changes. Planned Procedure: Right and Left Heart Cath + Possible PCI Primary Indication for Procedure: Angina Equivalent High Risk Features: History of Prior CABG: Yes History of Prior PCI: No Cardiomyopathy: No Anti-ischemic Meds in Past 2 Weeks: Beta blockers Ejection Fraction: 60% from Previous Echo Risk Appropriateness: Angina Class in Past 2 Weeks: Class III - Marked limitation of ordinary physical activity Cardiogenic Shock: NoHeart Failure: None Stress Test Performed: 09/03/21 Negative EKG Assessment: Normal Family History of Premature CAD: Father, age 60 Evaluation for Preop Clearance: Non-Cardiac Surgery, Functional Capacity; >= 4 METS with symptoms, Surgical Risk; Low HISTORY OF BLEEDING: No This H&P can be found in the attached. SIGNATURE: Anette Garcia MD PATIENT NAME: Hayden Pendleton DATE: November 05, 2021 TIME: 9:23 AM documented in this encounter [facility] 11-03-2021 Miscellaneous Notes Spoke with . ----- Message from Mauri Chavez MD sent at 11/02/2021 3:52 PM EDT ----- Please inform Hayden of normal blood tests. Thanks, Mauri Chavez MD documented in this encounter [facility] 10-23-2021 Miscellaneous Notes As patient continues to have symptoms of shortness of breath on exertion and chest tightness with symptoms similar to a year back prior to his initial heart catheterization and as his other work-up including pulmonary have come back normal I have scheduled a left heart catheterization. Patient continues to have symptoms on 2 antianginal agents including beta-blockers and nitrates. He said he tried nitrates for a month and then stopped it as it was not helping him much. Mauri Chavez MD documented in this encounter [facility] 10-15-2021 Note HNO ID: [id number] Author: Mauri Chavez MD Service: ? Author Type: Physician Type: Progress Notes Filed: 10/15/2021 1:38 PM Note Text: Chief Complaint: Patient presents with: F/U 1 month History of Present Illness: Hayden Pendleton is a 55 year old male with history of essential hypertension, rheumatoid arthritis, dyslipidemia, smoker who was referred by his primary care physician for an abnormal stress test. Patient has been having chest discomfort associated with shortness of breath on exertion for the last 1 year. He describes the pain as sharp nonradiating associated with lightheadedness. Denies palpitations. He also has been dealing with vertigo on other times. He has not passed out and has no leg swelling. Patient said he had an exercise stress echo at [facility] and was referred here to see a marionette performer after that. I do not have any records from his PCPs office. 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 He underwent four-vessel CABG on 10/25/[address] Alonso. Postop course was uneventful. He has been enrolled in cardiac rehab at [facility]. I received notification from them that PVCs increase in frequency when he exerts himself during exercises so they had to back down a bit. Patient says he does not have any chest pain or shortness of breath. 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 Denies palpitations lightheadedness syncope orthopnea PND or leg pain. 04/23/2021: At today's visit patient has constant soreness on the left pectoral region. He says his shortness of breath has improved after his bypass surgery. Denies anginal symptoms. Denies any palpitations lightheadedness syncope orthopnea PND or leg edema. Patient says he was not able to do many cardiac rehab sessions because of his work schedule. 09/03/2021: For the last 1 month patient has been complaining of shortness of breath on exertion and currently is at NYHA class III. Patient's says just moving from 1 room to another at home causes him to be short of breath. He also has been describing sharp left-sided chest pain. At times it last for a few seconds other times it last longer. Additionally he also feels tired. He said he felt well for a period of time after his bypass surgery but the symptoms now have been present for the last few weeks. Because of the symptoms he had called to the office and he was recommended to go to the emergency room for evaluation. He said he went to the [facility] ER on Wednesday. He said they did EKG and blood work and sent him home to follow-up with a marionette performer. 10/15/2021: Patient was started on Imdur at the last office visit as a second antianginal agent. He said it did not help him at all so he stopped taking it after a month supply ran out. He has constant chest tightness starting in the left side and radiating to the right side of the chest. Additionally he also has numbness in the left precordial area. He says he has a shortness of breath on exertion which he has been having for the last few months and is severely affected by the humidity he says. He says at home if he is in the cooler atmosphere under air conditioning he does not have the symptom as much but the moment he steps outside his shortness of breath gets worse. He recently saw a c d still operator who did a lung cancer screening CAT scan. Additionally he also had PFTs done recently and is due to see the c d still operator in follow-up next week. PAST MEDICAL HISTORY Diagnosis Date Dyslipidemia HTN (hypertension) Low back pain Rheumatoid arthritis (HCC) PAST SURGICAL HISTORY Procedure Laterality Date CABG (4) VEIN GRAFTS AND ARTERIAL GRAFT(S) 10/25/2020 HIP SURGERY HX Right SCAPULA Right History reviewed. No pertinent family history. Social History Tobacco Use Smoking status: Every Day Packs/day: 0.50 Types: Cigarettes Smokeless tobacco: Never Substance Use Topics Drug use: Yes Types: Marijuana Current Outpatient Medications Medication Sig rosuvastatin (CRESTOR) 20 mg tablet TAKE 1 TABLET BY MOUTH EVERY DAY AT BEDTIME metoprolol tartrate, short acting, (LOPRESSOR) 25 mg tablet Take 1 tablet by mouth twice daily. ezetimibe (ZETIA) 10 mg tablet Take 1 tablet by mouth once daily. omeprazole (PRILOSEC) 40 mg capsule aspirin 81 mg chewable tablet Take 1 tablet by mouth once daily. acetaminophen (TYLENOL) 500 mg tablet Take 2 tablets by mouth every 6 hours as needed for pain. citalopram (CELEXA) 40 mg tablet Take 40 mg by mouth once daily. albuterol HFA (PROVENTIL HFA, VENTOLIN HFA) 90 mcg/actuation inhaler Inhale 2 Puffs as instructed. isosorbide mononitrate ER (IMDUR) 30 mg 24 hr tablet Take 1 tablet by mouth once daily. (Patient not taking: Reported on 10/15/2021) nabumetone (RELAFEN) 500 mg ta (more content not included)... [facility] 10-15-2021 History of Presen t illness Narrative Chief Complaint: Patient presents with: F/U 1 month History of Present Illness: Hayden Pendleton is a 55 year old male with history of essential hypertension, rheumatoid arthritis, dyslipidemia, smoker who was referred by his primary care physician for an abnormal stress test. Patient has been having chest discomfort associated with shortness of breath on exertion for the last 1 year. He describes the pain as sharp nonradiating associated with lightheadedness. Denies palpitations. He also has been dealing with vertigo on other times. He has not passed out and has no leg swelling. Patient said he had an exercise stress echo at [facility] and was referred here to see a marionette performer after that. I do not have any records from his PCPs office. 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 He underwent four-vessel CABG on 10/25/[address] Alonso. Postop course was uneventful. He has been enrolled in cardiac rehab at [facility]. I received notification from them that PVCs increase in frequency when he exerts himself during exercises so they had to back down a bit. Patient says he does not have any chest pain or shortness of breath. 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 Denies palpitations lightheadedness syncope orthopnea PND or leg pain. 04/23/2021: At today's visit patient has constant soreness on the left pectoral region. He says his shortness of breath has improved after his bypass surgery. Denies anginal symptoms. Denies any palpitations lightheadedness syncope orthopnea PND or leg edema. Patient says he was not able to do many cardiac rehab sessions because of his work schedule. 09/03/2021: For the last 1 month patient has been complaining of shortness of breath on exertion and currently is at NYHA class III. Patient's says just moving from 1 room to another at home causes him to be short of breath. He also has been describing sharp left-sided chest pain. At times it last for a few seconds other times it last longer. Additionally he also feels tired. He said he felt well for a period of time after his bypass surgery but the symptoms now have been present for the last few weeks. Because of the symptoms he had called to the office and he was recommended to go to the emergency room for evaluation. He said he went to the [facility] ER on Wednesday. He said they did EKG and blood work and sent him home to follow-up with a marionette performer. 10/15/2021: Patient was started on Imdur at the last office visit as a second antianginal agent. He said it did not help him at all so he stopped taking it after a month supply ran out. He has constant chest tightness starting in the left side and radiating to the right side of the chest. Additionally he also has numbness in the left precordial area. He says he has a shortness of breath on exertion which he has been having for the last few months and is severely affected by the humidity he says. He says at home if he is in the cooler atmosphere under air conditioning he does not have the symptom as much but the moment he steps outside his shortness of breath gets worse. He recently saw a c d still operator who did a lung cancer screening CAT scan. Additionally he also had PFTs done recently and is due to see the c d still operator in follow-up next week. PAST MEDICAL HISTORY Diagnosis Date Dyslipidemia HTN (hypertension) Low back pain Rheumatoid arthritis (HCC) PAST SURGICAL HISTORY Procedure Laterality Date CABG (4) VEIN GRAFTS & ARTERIAL GRAFT(S) 10/25/2020 HIP SURGERY HX Right SCAPULA Right History reviewed. No pertinent family history. Social History Tobacco Use Smoking status: Every Day Packs/day: 0.50 Types: Cigarettes Smokeless tobacco: Never Substance Use Topics Drug use: Yes Types: Marijuana Current Outpatient Medications Medication Sig rosuvastatin (CRESTOR) 20 mg tablet TAKE 1 TABLET BY MOUTH EVERY DAY AT BEDTIME metoprolol tartrate, short acting, (LOPRESSOR) 25 mg tablet Take 1 tablet by mouth twice daily. ezetimibe (ZETIA) 10 mg tablet Take 1 tablet by mouth once daily. omeprazole (PRILOSEC) 40 mg capsule aspirin 81 mg chewable tablet Take 1 tablet by mouth once daily. acetaminophen (TYLENOL) 500 mg tablet Take 2 tablets by mouth every 6 hours as needed for pain. citalopram (CELEXA) 40 mg tablet Take 40 mg by mouth once daily. albuterol HFA (PROVENTIL HFA, VENTOLIN HFA) 90 mcg/actuation inhaler Inhale 2 Puffs as instructed. isosorbide mononitrate ER (IMDUR) 30 mg 24 hr tablet Take 1 tablet by mouth once daily. (Patient not taking: Reported on 10/15/2021) nabumetone (RELAFEN) 500 mg tablet Take by mouth. (Patient not taking: No sig reported) pantoprazole DR (PROTONIX) 20 mg tablet Take 20 mg by mouth once daily. (Patient not taking: No sig reported) melatonin 3 mg tablet Take 1 tablet by mouth at bedtime as needed (insomnia). (Patient not taking: No sig reported) nicotine (NICODERM) 14 mg/24 hr Apply 1 Patch as directed once daily. (Patient not taking: Reported on 04/23/2021 ) Current Facility-Administered Medications Medication Dose Route Frequency perflutren lipid microspheres 1.3 mL in NaCl (PF) 0.9% 10 mL injection (DEFINITY) INTRAVENOUS DIRECTED PRN sodium chloride 0.9 % (flush) 10 mL (BD POSIFLUSH) 10 mL INTRAVENOUS DIRECTED PRN ALLERGIES Allergen Reactions Oxycotin [Oxycodone] Rash Prednisone Intolerance flushing of skin-steriods Review of Systems: GENERAL: Negative for: Weight loss or gain, Fever or Chills, Weakness and Sleep difficulties. HEENT: Negative for: Headache, Impaired Vision, Glasses, Hearing Impairment, Ringing in Ears, Nosebleeds, Poor dental care, Bleeding Gums, Dentures NECK: Negative for: Swelling, Pain, Stiffness RESPIRATORY: Negative for: Cough, Blood in Sputum, Wheezing, Apnea GASTROINTESTINAL: Negative for: Trouble swallowing, Heartburn, Change in bowel habits, Blood in stool, Dark black stools MUSCULOSKELETAL: Negative for: Muscle or joint pain, Stiffness , Joint swelling NEUROLOGIC/PSYCHIATRIC: Negative for: Weakness, Paralysis, Numbness, Tingling, Tremor, Nervousness, Depressed mood, Memory loss SKIN: Negative for: Rashes, Itching HEMATOLOGICAL/LYMPHATIC: Negative for: Easy bruising , Easy bleeding ENDOCRINE: Negative for: Heat or cold intolerance, Excessive sweating, Frequent urination, Frequent thirst I have confirmed and edited as necessary, the PFSH and ROS obtained by others. Physical Examination: BP 135/67 (BP Site: Left Arm, BP Position: Sitting, BP Cuff Size: Large Adult) Pulse 71 Ht 182.9 cm (6') Wt 94.5 kg (208 lb 4.8 oz) SpO2 99% BMI 28.25 kg/m BMI 28.25 kg/(m^2) General: Appears well in no acute distress Skin: No clubbing no cyanosis HEENT PERRLA Mucosa: Moist Neck: No JVD no carotid bruit no palpable thyromegaly Heart S1-S2 rate regular rhythm no murmur no rubs or gallops Lungs: Breath sounds equal clear to auscultation bilaterally Extremities no pedal edema Neuro: Oriented to time place and person grossly intact. Psych: Normal mood and affect Cardiac Testing and Procedures: Electrocardiogram: 09/03/2021: Sinus rhythm at 78 bpm with frequent PVCs. 10/09/2020: Normal sinus rhythm at 73 bpm. Normal EKG Echocardiogram 09/03/2021: Normal sinus rhythm at 78 bpm with frequent PVCs. 02/25/2021: EF 60%. 10/23/2020: EF 56%. No significant valvular abnormalities. 08/01/2020: EF 60%. Unable to determine RV systolic pressures due to technical difficult study. Stress test 09/08/2021: No evidence of ischemia or scar. EF 71%. 01/04/2020: Patient exercised for 10 minutes achieving 142 bpm which is 85% maximum predicted heart rate. No EKG changes at peak stress. Did have frequent PVCs at peak exercise. Stress echo negative for ischemia with no wall motion abnormalities. Somewhat limited due to short axis post-rest images being unavailable. Heart catheterization 10/22/2020: Distal left main 90% focal disease. Proximal LAD 90% focal disease. D2 70%. Proximal circumflex 70%. OM2 99% moderate disease. 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 Good collaterals from LAD and septals filling PDA and RPL retrogradely. CABG 10/25/2020: WELLS to LAD, SVG to diagonal, OM1 and PDA of RCA ASSESSMENT/PLAN: 1. CAD s/p CABG Patient has been complaining of shortness of breath on exertion for the last few months. He says this is exacerbated by the humidity outside. He says when he is inside the house under air conditioning he does not feel the symptoms as much. He also describes constant chest tightness on the left side of the chest radiating to the right side. He describes it as pain which is there all the time for the last few months. I started him on Imdur as a second antianginal agents in addition to the beta-kenya that he has already been taking. He says this did not make any difference and he stopped the medication after it ran out. Patient's chest pain/tightness does not sound cardiac in nature as it is constant. He also had a normal stress test done recently. Patient had PFTs done recently which shows restrictive lung disease. He has a follow-up appointment with his c d still operator next week. In all likelihood his lung symptoms are secondary to pulmonary condition. If the c d still operator does not feel this to be the case then I will schedule him for a left heart catheterization as a last resort as the patient said he had similar symptoms last year as well which led to the heart catheterization and finding of multivessel coronary disease. He is to continue aspirin beta-blockers and high intensity statins. 2. Essential hypertension Adequately controlled on current medications. 3. Dyslipidemia Continue Crestor and Zetia. Annual lipid panel being monitored by his PCP. 4. Smoker Patient says he still smoking half a pack a day. SMOKING CESSATION COUNSELING Smoking cessation methods including Nicotine Replacement Therapies were discussed with the patient and assistance offered. The medical conditions adversely affected by cigarette use include:COPD. The patient is currently not ready to quit. I personally spent 3 minutes in counseling. The time spent in smoking cessation counseling is exclusive of any other counseling during this visit. Mauri Chavez MD documented in this encounter [facility] 09-09-2021 Miscellaneous Notes Called PT talked to his about Please inform Hayden that the stress test is normal. Please let him know that I can order a limited echocardiogram even though the previous limited echo from 6 months back was normal as I do not have a good clear cardiac cause for his symptoms of shortness of breath. Thanks, Mauri Chavez MD ----- Message from Mauri Chavez MD sent at 09/08/2021 3:56 PM EDT ----- Please inform Hayden that the stress test is normal. Please let him know that I can order a limited echocardiogram even though the previous limited echo from 6 months back was normal as I do not have a good clear cardiac cause for his symptoms of shortness of breath. Thanks, Mauri Chavez MD documented in this encounter [facility] 09-09-2021 Miscellaneous Notes Called PT talked to the she is concerned he is having similar symptoms he had in 2020, and had bypass surgery. He is having SOB chest pain he is just not feeling well after his stress test yesterday. PT went to work in [place] was not able to talk to him. I told her if he is having symptoms SOB and chest pain he should go to the emergency department to be evaluated. I told her I will send the message to Dr Chavez and Dr Calhoun who is covering. Hayden's Yaz called and said he is woozy, feels generally not himself, has had some shortness of breath going on which has been common for him but is feeling generally unwell and abnormal after his stress test yesterday. She asked if I would send a message to Dr. Chavez's staff to follow up, can someone follow up with her about symptoms and if they could be related or how to proceed? I did recommend they reach out to their primary care and if he does have access to a nurse transmission mechanic to be triaged, to seek out that service as well. He does not receive primary care through so I could not nurse triage him. Thank you, Estefani Butt documented in this encounter [facility] 09-08-2021 Note HNO ID: [id number] Author: BRI Douglas Service: Nuclear Medicine Author Type: Technologist Type: Progress Notes Filed: 09/08/2021 2:37 PM Note Text: RADIOLOGY SERVICE PROGRESS NOTE SERVICE DATE: 09/08/2021 SERVICE TIME: 2:36 PM PATIENT IDENTITY VERIFICATION COMPLETED USING TWO (2) STANDARD IDENTIFIERS: Name and Date of confirmed by patient verbally and Name and Date of confirmed by identification band FALL SCREENING: Has the patient had 2 falls in the last year or 1 fall with injury or currently using an Ambulatory Assistive Device (Walker, Cane, Wheelchair, Crutches, etc.)? No PATIENT GENDER DATA: .male ALLERGIES: Reviewed and unchanged MEDICATIONS REVIEWED: Not applicable PATIENT RELEVANT IMPLANT DATA REVIEWED: Not Applicable CREATININE: Creatinine Date Value Ref Range Status 10/28/2020 0.99 0.73 - 1.22 mg/dL Final 10/27/2020 1.09 0.73 - 1.22 mg/dL Final 10/26/2020 1.07 0.73 - 1.22 mg/dL Final eGFR-All Other Races Date Value Ref Range Status 10/28/2020 >60 Final Comment: eGFR (Estimated GFR) Units of measure: mL/min/1.73 meters squared eGFR is derived from the reexpressed MDRD Study equation using the following parameters: serum creatinine, age, gender and race. The creatinine assay has been calibrated to be traceable to IDMS. An eGFR <60 mL/min/1.73m2 for >3 months is consistent with chronic kidney disease. Refer to KDOQI guidelines for clinical interpretation. In patients with unstable renal function, e.g. those with acute kidney injury, the eGFR may not accurately reflect actual GFR. eGFR- Date Value Ref Range Status 10/28/2020 >60 Final P.O.C.T. RESULTS: N/A September 08, [address] PERFORMED: No IV SITE: Ambulatory: A peripheral IV was started in the Right antecubital site with a Angio cath: 20 gauge and 22 gauge. POST EXAM PIV STATUS: Discontinued PROCEDURE TYPE: NM Stress: 12.5mCi [id number] was administered IV for Rest Imaging at 13:41 by BRI Douglas. 32.7 mCi [id number] was administered IV for Stress Imaging at 14:28 by BRI Douglas PATIENT DISCHARGED TO: Ambulatory patient, left NM department area. A Diagnostic radioactive procedure has taken place, with no further precautions necessary other than routine body substance precautions. More information regarding radiation safety can be found using this link: [email or web address] SIGNATURE: BRI Douglas PATIENT NAME: Hayden Pendleton DATE: September 08, 2021 TIME: 2:36 PM PAGER/CONTACT #: [facility] 09-08-2021 Note HNO ID: [id number] Author: BRI Douglas Service: Nuclear Medicine Author Type: Technologist Type: Progress Notes Filed: 09/08/2021 2:44 PM Note Text: RADIOLOGY SERVICE PROGRESS NOTE SERVICE DATE: 09/08/2021 SERVICE TIME: 2:38 PM PATIENT IDENTITY VERIFICATION COMPLETED USING TWO (2) STANDARD IDENTIFIERS: Name and Date of confirmed by patient verbally and Name and Date of confirmed by identification band FALL SCREENING: Has the patient had 2 falls in the last year or 1 fall with injury or currently using an Ambulatory Assistive Device (Walker, Cane, Wheelchair, Crutches, etc.)? No PATIENT GENDER DATA: .male ALLERGIES: Reviewed and unchanged MEDICATIONS REVIEWED: Not applicable PATIENT RELEVANT IMPLANT DATA REVIEWED: Not Applicable CREATININE: Creatinine Date Value Ref Range Status 10/28/2020 0.99 0.73 - 1.22 mg/dL Final 10/27/2020 1.09 0.73 - 1.22 mg/dL Final 10/26/2020 1.07 0.73 - 1.22 mg/dL Final eGFR-All Other Races Date Value Ref Range Status 10/28/2020 >60 Final Comment: eGFR (Estimated GFR) Units of measure: mL/min/1.73 meters squared eGFR is derived from the reexpressed MDRD Study equation using the following parameters: serum creatinine, age, gender and race. The creatinine assay has been calibrated to be traceable to IDMS. An eGFR <60 mL/min/1.73m2 for >3 months is consistent with chronic kidney disease. Refer to KDOQI guidelines for clinical interpretation. In patients with unstable renal function, e.g. those with acute kidney injury, the eGFR may not accurately reflect actual GFR. eGFR- Date Value Ref Range Status 10/28/2020 >60 Final P.O.C.T. RESULTS: N/A September 08, [address] PERFORMED: No IV SITE: Ambulatory: A peripheral IV was started in the Right antecubital site with a Angio cath: 22 gauge. POST EXAM PIV STATUS: Discontinued PROCEDURE TYPE: NM Stress: 12.5mCi [id number] was administered IV for Rest Imaging at 13:41 by BRI Douglas. 32.7 mCi [id number] was administered IV for Stress Imaging at 14:28 by BRI Douglas PATIENT DISCHARGED TO: Ambulatory patient, left [place] department area. A Diagnostic radioactive procedure has taken place, with no further precautions necessary other than routine body substance precautions. More information regarding radiation safety can be found using this link: [email or web address]%20Me [email or web address] SIGNATURE: BRI Douglas PATIENT NAME: Hayden Pendleton DATE: September 08, 2021 TIME: 2:38 PM PAGER/CONTACT #: [facility] 09-08-2021 History of Presen t illness Narrative RADIOLOGY SERVICE PROGRESS NOTE SERVICE DATE: 09/08/2021 SERVICE TIME: 2:38 PM PATIENT IDENTITY VERIFICATION COMPLETED USING TWO (2) STANDARD IDENTIFIERS: Name and Date of confirmed by patient verbally and Name and Date of confirmed by identification band FALL SCREENING: Has the patient had 2 falls in the last year or 1 fall with injury or currently using an Ambulatory Assistive Device (Walker, Cane, Wheelchair, Crutches, etc.)? No PATIENT GENDER DATA: .male ALLERGIES: Reviewed and unchanged MEDICATIONS REVIEWED: Not applicable PATIENT RELEVANT IMPLANT DATA REVIEWED: Not Applicable CREATININE: Creatinine Date Value Ref Range Status 10/28/2020 0.99 0.73 - 1.22 mg/dL Final 10/27/2020 1.09 0.73 - 1.22 mg/dL Final 10/26/2020 1.07 0.73 - 1.22 mg/dL Final eGFR-All Other Races Date Value Ref Range Status 10/28/2020 >60 Final Comment: eGFR (Estimated GFR) Units of measure: mL/min/1.73 meters squared eGFR is derived from the reexpressed MDRD Study equation using the following parameters: serum creatinine, age, gender and race. The creatinine assay has been calibrated to be traceable to IDMS. An eGFR <60 mL/min/1.73m2 for >3 months is consistent with chronic kidney disease. Refer to KDOQI guidelines for clinical interpretation. In patients with unstable renal function, e.g. those with acute kidney injury, the eGFR may not accurately reflect actual GFR. eGFR- Date Value Ref Range Status 10/28/2020 >60 Final P.O.C.T. RESULTS: N/A September 08, [address] PERFORMED: No IV SITE: Ambulatory: A peripheral IV was started in the Right antecubital site with a Angio cath: 22 gauge. POST EXAM PIV STATUS: Discontinued PROCEDURE TYPE: FL Stress: 12.5mCi [id number] was administered IV for Rest Imaging at 13:41 by BRI Douglas. 32.7 mCi [id number] was administered IV for Stress Imaging at 14:28 by BRI Douglas PATIENT DISCHARGED TO: Ambulatory patient, left [place] department area. A Diagnostic radioactive procedure has taken place, with no further precautions necessary other than routine body substance precautions. More information regarding radiation safety can be found using this link: [email or web address]%20N uclear%20Medicine%20Procedures.p df SIGNATURE: Oumar Michel, BRI PATIENT NAME: Hayden Pendleton DATE: September 08, 2021 TIME: 2:38 PM PAGER/CONTACT #: RADIOLOGY SERVICE PROGRESS NOTE SERVICE DATE: 09/08/2021 SERVICE TIME: 2:36 PM PATIENT IDENTITY VERIFICATION COMPLETED USING TWO (2) STANDARD IDENTIFIERS: Name and Date of confirmed by patient verbally and Name and Date of confirmed by identification band FALL SCREENING: Has the patient had 2 falls in the last year or 1 fall with injury or currently using an Ambulatory Assistive Device (Walker, Cane, Wheelchair, Crutches, etc.)? No PATIENT GENDER DATA: .male ALLERGIES: Reviewed and unchanged MEDICATIONS REVIEWED: Not applicable PATIENT RELEVANT IMPLANT DATA REVIEWED: Not Applicable CREATININE: Creatinine Date Value Ref Range Status 10/28/2020 0.99 0.73 - 1.22 mg/dL Final 10/27/2020 1.09 0.73 - 1.22 mg/dL Final 10/26/2020 1.07 0.73 - 1.22 mg/dL Final eGFR-All Other Races Date Value Ref Range Status 10/28/2020 >60 Final Comment: eGFR (Estimated GFR) Units of measure: mL/min/1.73 meters squared eGFR is derived from the reexpressed MDRD Study equation using the following parameters: serum creatinine, age, gender and race. The creatinine assay has been calibrated to be traceable to IDMS. An eGFR <60 mL/min/1.73m2 for >3 months is consistent with chronic kidney disease. Refer to KDOQI guidelines for clinical interpretation. In patients with unstable renal function, e.g. those with acute kidney injury, the eGFR may not accurately reflect actual GFR. eGFR- Date Value Ref Range Status 10/28/2020 >60 Final P.O.C.T. RESULTS: N/A September 08, [address] PERFORMED: No IV SITE: Ambulatory: A peripheral IV was started in the Right antecubital site with a Angio cath: 20 gauge and 22 gauge. POST EXAM PIV STATUS: Discontinued PROCEDURE TYPE: NM Stress: 12.5mCi [id number] was administered IV for Rest Imaging at 13:41 by BRI Douglas. 32.7 mCi [id number] was administered IV for Stress Imaging at 14:28 by BRI Douglas PATIENT DISCHARGED TO: Ambulatory patient, left [place] department area. A Diagnostic radioactive procedure has taken place, with no further precautions necessary other than routine body substance precautions. More information regarding radiation safety can be found using this link: [email or web address]%20N uclear%20Medicine%20Procedures.[email or web address] df SIGNATURE: BRI Douglas PATIENT NAME: Hayden Pendleton DATE: September 08, 2021 TIME: 2:36 PM PAGER/CONTACT #: documented in this encounter [facility] 09-08-2021 Miscellaneous Notes Please inform Hayden that the stress test is normal. Please let him know that I can order a limited echocardiogram even though the previous limited echo from 6 months back was normal as I do not have a good clear cardiac cause for his symptoms of shortness of breath. Thanks, Mauri Chavez MD documented in this encounter [facility] 09-05-2021 Miscellaneous Notes Left message regarding reminder for stress test on Wednesday and given instructions documented in this encounter [facility] 09-03-2021 Note HNO ID: [id number] Author: Mauri Chavez MD Service: ? Author Type: Physician Type: Progress Notes Filed: 09/03/2021 3:37 PM Note Text: Chief Complaint: Patient presents with: ER F/U: chest pain, SOB History of Present Illness: Hayden Pendleton is a 55 year old male with history of essential hypertension, rheumatoid arthritis, dyslipidemia, smoker who was referred by his primary care physician for an abnormal stress test. Patient has been having chest discomfort associated with shortness of breath on exertion for the last 1 year. He describes the pain as sharp nonradiating associated with lightheadedness. Denies palpitations. He also has been dealing with vertigo on other times. He has not passed out and has no leg swelling. Patient said he had an exercise stress echo at [facility] and was referred here to see a marionette performer after that. I do not have any records from his PCPs office. 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 He underwent four-vessel CABG on 10/25/[address] Alonso. Postop course was uneventful. He has been enrolled in cardiac rehab at [facility]. I received notification from them that PVCs increase in frequency when he exerts himself during exercises so they had to back down a bit. Patient says he does not have any chest pain or shortness of breath. 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 Denies palpitations lightheadedness syncope orthopnea PND or leg pain. 04/23/2021: At today's visit patient has constant soreness on the left pectoral region. He says his shortness of breath has improved after his bypass surgery. Denies anginal symptoms. Denies any palpitations lightheadedness syncope orthopnea PND or leg edema. Patient says he was not able to do many cardiac rehab sessions because of his work schedule. 09/03/2021: For the last 1 month patient has been complaining of shortness of breath on exertion and currently is at NYHA class III. Patient's says just moving from 1 room to another at home causes him to be short of breath. He also has been describing sharp left-sided chest pain. At times it last for a few seconds other times it last longer. Additionally he also feels tired. He said he felt well for a period of time after his bypass surgery but the symptoms now have been present for the last few weeks. Because of the symptoms he had called to the office and he was recommended to go to the emergency room for evaluation. He said he went to the [facility] ER on Wednesday. He said they did EKG and blood work and sent him home to follow-up with a marionette performer. PAST MEDICAL HISTORY Diagnosis Date - Dyslipidemia - HTN (hypertension) - Low back pain - Rheumatoid arthritis (HCC) PAST SURGICAL HISTORY Procedure Laterality Date - CABG (4) VEIN GRAFTS AND ARTERIAL GRAFT(S) 10/25/2020 - HIP SURGERY HX Right - SCAPULA Right History reviewed. No pertinent family history. Social History Tobacco Use - Smoking status: Current Every Day Smoker Packs/day: 0.50 Types: Cigarettes - Smokeless tobacco: Never Used Substance Use Topics - Alcohol use: Not on file - Drug use: Yes Types: Marijuana Current Outpatient Medications Medication Sig - rosuvastatin (CRESTOR) 20 mg tablet TAKE 1 TABLET BY MOUTH EVERY DAY AT BEDTIME - metoprolol tartrate, short acting, (LOPRESSOR) 25 mg tablet Take 1 tablet by mouth twice daily. - ezetimibe (ZETIA) 10 mg tablet Take 1 tablet by mouth once daily. - omeprazole (PRILOSEC) 40 mg capsule - aspirin 81 mg chewable tablet Take 1 tablet by mouth once daily. - acetaminophen (TYLENOL) 500 mg tablet Take 2 tablets by mouth every 6 hours as needed for pain. - citalopram (CELEXA) 40 mg tablet Take 40 mg by mouth once daily. - albuterol HFA (PROVENTIL HFA, VENTOLIN HFA) 90 mcg/actuation inhaler Inhale 2 Puffs as instructed. - gabapentin (NEURONTIN) 100 mg capsule Take by mouth. (Patient not taking: Reported on 01/15/2021) - HYDROcodone-acetaminophen (NORCO) 5-325 mg per tablet Take 1 tablet by mouth twice daily as needed. (Patient not taking: Reported on 01/15/2021) - nabumetone (RELAFEN) 500 mg tablet Take by mouth. (Patient not taking: Reported on 01/15/2021 ) - oxyCODONE-acetaminophen (PERCOCET) 5-325 mg tablet (Patient not taking: Reported on 01/15/2021) - pantoprazole DR (PROTONIX) 20 mg tablet Take 20 mg by mouth once daily. (Patient not taking: Reported on 09/03/2021 ) - predniSONE (DELTASONE) 10 mg tablet Take by mouth. (Patient not taking: Reported on 01/15/2021 ) - lidocaine (SALONPAS) 4 % patch Apply 1 Patch as directed once daily. Cut in half and apply to either side of midsternal chest incision. Remove after 12 hrs. (Patient not taking: Reported on 01/15/2021 ) - melatonin 3 mg tablet Take 1 tablet by viktoria (more content not included)... [facility] 09-03-2021 History of Presen t illness Narrative Chief Complaint: Patient presents with: ER F/U: chest pain, SOB History of Present Illness: Hayden Pendleton is a 55 year old male with history of essential hypertension, rheumatoid arthritis, dyslipidemia, smoker who was referred by his primary care physician for an abnormal stress test. Patient has been having chest discomfort associated with shortness of breath on exertion for the last 1 year. He describes the pain as sharp nonradiating associated with lightheadedness. Denies palpitations. He also has been dealing with vertigo on other times. He has not passed out and has no leg swelling. Patient said he had an exercise stress echo at [facility] and was referred here to see a marionette performer after that. I do not have any records from his PCPs office. 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 He underwent four-vessel CABG on 10/25/[address] Alonso. Postop course was uneventful. He has been enrolled in cardiac rehab at [facility]. I received notification from them that PVCs increase in frequency when he exerts himself during exercises so they had to back down a bit. Patient says he does not have any chest pain or shortness of breath. 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 Denies palpitations lightheadedness syncope orthopnea PND or leg pain. 04/23/2021: At today's visit patient has constant soreness on the left pectoral region. He says his shortness of breath has improved after his bypass surgery. Denies anginal symptoms. Denies any palpitations lightheadedness syncope orthopnea PND or leg edema. Patient says he was not able to do many cardiac rehab sessions because of his work schedule. 09/03/2021: For the last 1 month patient has been complaining of shortness of breath on exertion and currently is at NYHA class III. Patient's says just moving from 1 room to another at home causes him to be short of breath. He also has been describing sharp left-sided chest pain. At times it last for a few seconds other times it last longer. Additionally he also feels tired. He said he felt well for a period of time after his bypass surgery but the symptoms now have been present for the last few weeks. Because of the symptoms he had called to the office and he was recommended to go to the emergency room for evaluation. He said he went to the [facility] ER on Wednesday. He said they did EKG and blood work and sent him home to follow-up with a marionette performer. PAST MEDICAL HISTORY Diagnosis Date Dyslipidemia HTN (hypertension) Low back pain Rheumatoid arthritis (HCC) PAST SURGICAL HISTORY Procedure Laterality Date CABG (4) VEIN GRAFTS & ARTERIAL GRAFT(S) 10/25/2020 HIP SURGERY HX Right SCAPULA Right History reviewed. No pertinent family history. Social History Tobacco Use Smoking status: Current Every Day Smoker Packs/day: 0.50 Types: Cigarettes Smokeless tobacco: Never Used Substance Use Topics Alcohol use: Not on file Drug use: Yes Types: Marijuana Current Outpatient Medications Medication Sig rosuvastatin (CRESTOR) 20 mg tablet TAKE 1 TABLET BY MOUTH EVERY DAY AT BEDTIME metoprolol tartrate, short acting, (LOPRESSOR) 25 mg tablet Take 1 tablet by mouth twice daily. ezetimibe (ZETIA) 10 mg tablet Take 1 tablet by mouth once daily. omeprazole (PRILOSEC) 40 mg capsule aspirin 81 mg chewable tablet Take 1 tablet by mouth once daily. acetaminophen (TYLENOL) 500 mg tablet Take 2 tablets by mouth every 6 hours as needed for pain. citalopram (CELEXA) 40 mg tablet Take 40 mg by mouth once daily. albuterol HFA (PROVENTIL HFA, VENTOLIN HFA) 90 mcg/actuation inhaler Inhale 2 Puffs as instructed. gabapentin (NEURONTIN) 100 mg capsule Take by mouth. (Patient not taking: Reported on 01/15/2021) HYDROcodone-acetaminophen (NORCO) 5-325 mg per tablet Take 1 tablet by mouth twice daily as needed. (Patient not taking: Reported on 01/15/2021) nabumetone (RELAFEN) 500 mg tablet Take by mouth. (Patient not taking: Reported on 01/15/2021 ) oxyCODONE-acetaminophen (PERCOCET) 5-325 mg tablet (Patient not taking: Reported on 01/15/2021) pantoprazole DR (PROTONIX) 20 mg tablet Take 20 mg by mouth once daily. (Patient not taking: Reported on 09/03/2021 ) predniSONE (DELTASONE) 10 mg tablet Take by mouth. (Patient not taking: Reported on 01/15/2021 ) lidocaine (SALONPAS) 4 % patch Apply 1 Patch as directed once daily. Cut in half and apply to either side of midsternal chest incision. Remove after 12 hrs. (Patient not taking: Reported on 01/15/2021 ) melatonin 3 mg tablet Take 1 tablet by mouth at bedtime as needed (insomnia). (Patient not taking: Reported on 04/23/2021 ) nicotine (NICODERM) 14 mg/24 hr Apply 1 Patch as directed once daily. (Patient not taking: Reported on 04/23/2021 ) Current Facility-Administered Medications Medication Dose Route Frequency perflutren lipid microspheres 1.3 mL in NaCl (PF) 0.9% 10 mL injection (DEFINITY) INTRAVENOUS DIRECTED PRN sodium chloride 0.9 % (flush) 10 mL (BD POSIFLUSH) 10 mL INTRAVENOUS DIRECTED PRN ALLERGIES Allergen Reactions Oxycotin [Oxycodone] Rash Prednisone Intolerance flushing of skin-steriods Review of Systems: GENERAL: Negative for: Weight loss or gain, Fever or Chills, Weakness and Sleep difficulties. HEENT: Negative for: Headache, Impaired Vision, Glasses, Hearing Impairment, Ringing in Ears, Nosebleeds, Poor dental care, Bleeding Gums, Dentures NECK: Negative for: Swelling, Pain, Stiffness RESPIRATORY: Negative for: Cough, Blood in Sputum, Shortness of breath, Wheezing, Apnea GASTROINTESTINAL: Negative for: Trouble swallowing, Heartburn, Change in bowel habits, Blood in stool, Dark black stools MUSCULOSKELETAL: Negative for: Muscle or joint pain, Stiffness , Joint swelling NEUROLOGIC/PSYCHIATRIC: Negative for: Weakness, Paralysis, Numbness, Tingling, Tremor, Nervousness, Depressed mood, Memory loss SKIN: Negative for: Rashes, Itching HEMATOLOGICAL/LYMPHATIC: Negative for: Easy bruising , Easy bleeding ENDOCRINE: Negative for: Heat or cold intolerance, Excessive sweating, Frequent urination, Frequent thirst I have confirmed and edited as necessary, the PFSH and ROS obtained by others. Physical Examination: BP 141/71 (BP Site: Left Arm, BP Position: Sitting, BP Cuff Size: Large Adult) Pulse 81 Temp 36.4 C (97.5 F) (Temporal) Ht 182.9 cm (6') Wt 94.8 kg (209 lb) SpO2 99% BMI 28.35 kg/m BMI 28.35 kg/(m^2) General: Appears well in no acute distress Skin: No clubbing no cyanosis HEENT PERRLA Mucosa: Moist Neck: No JVD no carotid bruit no palpable thyromegaly Heart S1-S2 rate regular rhythm no murmur no rubs or gallops Lungs: Breath sounds equal clear to auscultation bilaterally Extremities no pedal edema Neuro: Oriented to time place and person grossly intact. Psych: Normal mood and affect Cardiac Testing and Procedures: Electrocardiogram: 09/03/2021: Sinus rhythm at 78 bpm with frequent PVCs. 10/09/2020: Normal sinus rhythm at 73 bpm. Normal EKG Echocardiogram 09/03/2021: Normal sinus rhythm at 78 bpm with frequent PVCs. 02/25/2021: EF 60%. 10/23/2020: EF 56%. No significant valvular abnormalities. 08/01/2020: EF 60%. Unable to determine RV systolic pressures due to technical difficult study. Stress test 01/04/2020: Patient exercised for 10 minutes achieving 142 bpm which is 85% maximum predicted heart rate. No EKG changes at peak stress. Did have frequent PVCs at peak exercise. Stress echo negative for ischemia with no wall motion abnormalities. Somewhat limited due to short axis post-rest images being unavailable. Heart catheterization 10/22/2020: Distal left main 90% focal disease. Proximal LAD 90% focal disease. D2 70%. Proximal circumflex 70%. OM2 99% moderate disease. 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 Good collaterals from LAD and septals filling PDA and RPL retrogradely. CABG 10/25/2020: WELLS to LAD, SVG to diagonal, OM1 and PDA of RCA ASSESSMENT/PLAN: 1. CAD s/p CABG Patient has been complaining of shortness of breath for the last month currently at NYHA class III. Also has been complaining of atypical type of chest pain sometimes lasting for a few seconds other times longer. He is also started to feel tired. Due to the above symptoms I have ordered a Lexiscan nuclear stress test to further evaluate them. Patient gets short of breath on minimal exertion and he would not be able to do a treadmill type of stress test. Until then he is to continue aspirin beta-blockers and statins. I have added Imdur 30 mg daily as a second antianginal agent for his above-stated symptoms. 2. Essential hypertension Adequately controlled on the current medications. 3. Dyslipidemia Continue Crestor and Zetia. Annual lipid panel being monitored by his PCP. 4. Smoker Patient says he still smoking half a pack a day. SMOKING CESSATION COUNSELING Smoking cessation methods including Nicotine Replacement Therapies were discussed with the patient and assistance offered. The medical conditions adversely affected by cigarette use include:COPD. The patient is currently not ready to quit. I personally spent 3 minutes in counseling. The time spent in smoking cessation counseling is exclusive of any other counseling during this visit. Mauri Chavez MD documented in this encounter [facility] 08-29-2021 Miscellaneous Notes Message to , she will relay to the patient. Images from the original note were not included. MD Melania Olvera RN; [facility] Clinical [place] 4 minutes ago (2:27 PM) I agree with your recommendations about going to the emergency room so that further work-up and ischemic evaluation if needed can be performed. Mauri Chavez MD Spoke to , read her the sx that were below, states the patient has been experiencing CP, SOB for days, has been going to work but comes home exhausted and SOB. states patient went to [facility] [employer] [facility] today that is outside of [facility], they were aware of his sx and have ordered some tests. Patient had a quadruple by pass last Oct., states he was doing well but now having above issues. Advised patient should be seen in the ED given his medical history. states patient was asleep but before he went to sleep he stated, I just do not feel right going to encourage patient to go to the ED. Patient and calling because he has been experiencing chest pain, not sleeping well, feels exhausted, out of breath Over his heart feels uncomfortable pain level at a 5. Right side of heart sharp pains about an 8. Last for 30 seconds off an on. Started feeling worse about a month ago but has been getting worse everyday. Please call patient and and advise. documented in this encounter [facility] 05-21-2021 Miscellaneous Notes Patient's request for medication is as follows: Pending Prescriptions Disp Refills ROSUVASTATIN 20 MG TABLET 90 tablet 3 Sig: TAKE 1 TABLET BY MOUTH EVERY DAY AT BEDTIME DOROTHY: Yes Last seen 04/23/2021. Prescription(s) as above. Please process accordingly. Celia Mujica LPN documented in this encounter [facility] Diagnosis Coronary artery disease involving [place] coronary artery of [place] heart without angina pectoris- Primary Precordial pain Hx of CABG Postsurgical aortocoronary bypass status SHAH (dyspnea on exertion) Other dyspnea and respiratory abnormality Primary hypertension Unspecified essential hypertension [facility] Diagnosis Precordial pain Coronary artery disease involving [place] coronary artery of [place] heart without angina pectoris Hx of CABG Postsurgical aortocoronary bypass status SHAH (dyspnea on exertion) Other dyspnea and respiratory abnormality [facility] Diagnosis Coronary artery disease involving [place] coronary artery of [place] heart without angina pectoris- Primary Hx of CABG Postsurgical aortocoronary bypass status Smoker Tobacco use disorder SHAH (dyspnea on exertion) Other dyspnea and respiratory abnormality [facility] Diagnosis SHAH (dyspnea on exertion)- Primary Other dyspnea and respiratory abnormality Precordial pain Coronary artery disease involving [place] coronary artery of [place] heart without angina pectoris Hx of CABG Postsurgical aortocoronary bypass status documented in this encounter [facility] note* Diagnosis Angina of effort (HCC) [I20.8 (ICD-10-CM)]- Primary Other and unspecified angina pectoris [facility] Diagnosis Primary hypertension- Primary Unspecified essential hypertension documented in this encounter [facility] note* Diagnosis Primary hypertension Unspecified essential hypertension documented in this encounter [facility] for referral (narrative)* Diagnostic Procedure Only (Routine) - Authorized Specialty Diagnoses / Procedures Referred By Myles qiu Referred To Contact MOLECULAR & FUNCTIONAL IMAGING Diagnoses Precordial pain Coronary artery disease involving [place] coronary artery of [place] heart without angina pectoris Hx of CABG SHAH (dyspnea on exertion) Procedures NM CARDIAC PERF STRESS/PHARM MYOCARDIAL SPECT MULTIPLE STUDIES Mauri Chavez MD [address] [place] [address] Molecular & Functional Imaging [address] [place] [address] Referral ID Status Reason Start Date Expiration Date Visits Requested Visits Authorized [id number] Authorized Auto-Generat ed Referral 09/03/2021 10/02/2021 1 1 * Outpatient Procedure (Routine) - Closed Specialty Diagnoses / Procedures Referred By Myles qiu Referred To Contact [facility] Diagnoses Precordial pain Procedures ECG COMPLETE ECG ROUTINE ECG W/LEAST 12 LDS W/I&R Mauri Chavez MD [address] [place] [address] [facility] [place] [address] [place] [address] Referral ID Status Reason Start Date Expiration Date V isits Requested Visits Authorized [id number] Closed Auto-Generate d Referral 09/03/2021 09/03/2022 1 1 [facility] for referral (narrative)* Diagnostic Procedure Only (Routine) - Closed Specialty Diagnoses / Procedures Referred By Contac t Referred To Contact MOLECULAR & FUNCTIONAL IMAGING Diagnoses Precordial pain Coronary artery disease involving [place] coronary artery of [place] heart without angina pectoris Hx of CABG SHAH (dyspnea on exertion) Procedures NM CARDIAC PERF STRESS/PHARM MYOCARDIAL SPECT MULTIPLE STUDIES Mauri Chavez MD [address] [place] [address] Molecular & Functional Imaging [address] [place] [address] Referral ID Status Reason Start Date Expiration Date V isits Requested Visits Authorized [id number] Closed Auto-Generate d Referral 09/03/2021 10/02/2021 1 1 [facility] for visit Narrative* Diagnostic Procedure Only (Routine) - Closed Specialty Diagnoses / Procedures Referred By Contpool t Referred To Contact MOLECULAR & FUNCTIONAL IMAGING Diagnoses Precordial pain Coronary artery disease involving [place] coronary artery of [place] heart without angina pectoris Hx of CABG SHAH (dyspnea on exertion) Procedures NM CARDIAC PERF STRESS/PHARM MYOCARDIAL SPECT MULTIPLE STUDIES Mauri Chavez MD [address] [place] [address] [facility] [address] [place] [address] Referral ID Status Reason Start Date Expiration Date V isits Requested Visits Authorized [id number] Closed Auto-Generate d Referral 09/03/2021 10/02/2021 1 1 [facility] Advance Directives No Advanced Directives Records FoundDocuments on File Type Date 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 Advance Directive(s) 10/22/2020 7:00 AM Latest Code Status on File Code Status Date Activated Date Inactivated Comments Full Code 10/31/2020 4:19 PM Documents on File Type Date Recorded 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 Advance Directive(s) 10/22/2020 7:00 AM Latest Code Status on File Code Status Date Activated Date Inactivated Comments Full Code 10/31/2020 4:19 PM Latest Code Status on File Code Status Date Activated Date Inactivated Comments Full Code 10/31/2020 4:19 PM 11/05/2021 8:42 AM Latest Code Status on File Code Status Date Activated Date Inactivated Comments Full Code 10/31/2020 4:19 PM 11/05/2021 8:42 AM Latest Code Status on File Code Status Date Activated Date Inactivated Comments Full Code 10/31/2020 4:19 PM 11/05/2021 8:42 AM Medications Administered Section Inactive Administered Medications - up to 3 most recent administrations Medication Order MAR Action Action Date Dose Rate Site regadenoson 0.4 mg injection (LEXISCAN) 0.4 mg, INTRAVENOUS, ONCE, 1 dose, On 09/08/21 at 1530, Give 0.4 mg (5 mL) over ~10 seconds, followed immediately by a 5 mL saline flush. Wait 10-20 seconds, then administer the radionuclide myocardial perfusion imaging agent. Given 09/08/2021 2:30 PM EDT 0.4 mg Inactive Administered Medications - up to 3 most recent administrations Medication Order MAR Action Action Date Dose Rate Site fentaNYL 50 mcg/mL injection (SUBLIMAZE) X (OR/PROCEDURE) PRN, Starting on Wed11/05/21 at 1035, Until Meghna 11/06/21 at 0304, Intraprocedure Given 11/05/2021 10:54 AM EDT 25 mcg Summary Purpose Family History No Family History Records FoundNo Family History Records FoundNo Family History Records Found Additional Source Comments Source Comments (unrecognize d section and content) In the event this informatio n is protected by the Federal Confidentiality of Alcohol and Drug Abuse Patient Records regulations: The Federal rules restrict any use of the information to criminally investigate or prosecute any alcohol or drug abuse patient.[facility] the event this information is protected by the Federal Confidentiality of Alcohol and Drug Abuse Patient Records regulations: The Federal rules restrict any use of the information to criminally investigate or prosecute any alcohol or drug abuse patient.[facility] the event this information is protected by the Federal Confidentiality of Alcohol and Drug Abuse Patient Records regulations: The Federal rules restrict any use of the information to criminally investigate or prosecute any alcohol or drug abuse patient.[facility] the event this information is protected by the Federal Confidentiality of Alcohol and Drug Abuse Patient Records regulations: The Federal rules restrict any use of the information to criminally investigate or prosecute any alcohol or drug abuse patient.[facility] the event this information is protected by the Federal Confidentiality of Alcohol and Drug Abuse Patient Records regulations: The Federal rules restrict any use of the information to criminally investigate or prosecute any alcohol or drug abuse patient.[facility] the event this information is protected by the Federal Confidentiality of Alcohol and Drug Abuse Patient Records regulations: The Federal rules restrict any use of the information to criminally investigate or prosecute any alcohol or drug abuse patient.[facility] the event this information is protected by the Federal Confidentiality of Alcohol and Drug Abuse Patient Records regulations: The Federal rules restrict any use of the information to criminally investigate or prosecute any alcohol or drug abuse patient.[facility] the event this information is protected by the Federal Confidentiality of Alcohol and Drug Abuse Patient Records regulations: The Federal rules restrict any use of the information to criminally investigate or prosecute any alcohol or drug abuse patient.[facility] the event this information is protected by the Federal Confidentiality of Alcohol and Drug Abuse Patient Records regulations: The Federal rules restrict any use of the information to criminally investigate or prosecute any alcohol or drug abuse patient.[facility] the event this information is protected by the Federal Confidentiality of Alcohol and Drug Abuse Patient Records regulations: The Federal rules restrict any use of the information to criminally investigate or prosecute any alcohol or drug abuse patient.[facility] the event this information is protected by the Federal Confidentiality of Alcohol and Drug Abuse Patient Records regulations: The Federal rules restrict any use of the information to criminally investigate or prosecute any alcohol or drug abuse patient.[facility] the event this information is protected by the Federal Confidentiality of Alcohol and Drug Abuse Patient Records regulations: The Federal rules restrict any use of the information to criminally investigate or prosecute any alcohol or drug abuse patient.[facility] the event this information is protected by the Federal Confidentiality of Alcohol and Drug Abuse Patient Records regulations: The Federal rules restrict any use of the information to criminally investigate or prosecute any alcohol or drug abuse patient.[facility] the event this information is protected by the Federal Confidentiality of Alcohol and Drug Abuse Patient Records regulations: The Federal rules restrict any use of the information to criminally investigate or prosecute any alcohol or drug abuse patient.[facility] the event this information is protected by the Federal Confidentiality of Alcohol and Drug Abuse Patient Records regulations: The Federal rules restrict any use of the information to criminally investigate or prosecute any alcohol or drug abuse patient.[facility] the event this information is protected by the Federal Confidentiality of Alcohol and Drug Abuse Patient Records regulations: The Federal rules restrict any use of the information to criminally investigate or prosecute any alcohol or drug abuse patient.[facility] the event this information is protected by the Federal Confidentiality of Alcohol and Drug Abuse Patient Records regulations: The Federal rules restrict any use of the information to criminally investigate or prosecute any alcohol or drug abuse patient.[facility] the event this information is protected by the Federal Confidentiality of Alcohol and Drug Abuse Patient Records regulations: The Federal rules restrict any use of the information to criminally investigate or prosecute any alcohol or drug abuse patient.[facility] the event this information is protected by the Federal Confidentiality of Alcohol and Drug Abuse Patient Records regulations: The Federal rules restrict any use of the information to criminally investigate or prosecute any alcohol or drug abuse patient.[facility] the event this information is protected by the Federal Confidentiality of Alcohol and Drug Abuse Patient Records regulations: The Federal rules restrict any use of the information to criminally investigate or prosecute any alcohol or drug abuse patient.[facility] the event this information is protected by the Federal Confidentiality of Alcohol and Drug Abuse Patient Records regulations: The Federal rules restrict any use of the information to criminally investigate or prosecute any alcohol or drug abuse patient.[facility] Reason for Visit (unrecogniz ed section and content) Reason Comments Patient Question Patient Update Reason Comments ER F/U chest pain, SOB Reason Comments Reminder Call Reason Comments Results Reason Comments F/U 1 month Reason Comments Patient Update Orders Specialty Diagnoses / Procedures Referred By Contac t Referred To Contact Diagnoses Unstable angina (HCC) ACS (acute coronary syndrome) (HCC) Unstable angina (HCC) [I20.0] ACS (acute coronary syndrome) (HCC) [I24.9] Procedures L HRT CATH W/NJX L VENTRICULOGRAPHY IMG S&I LEFT HEART CATH INTRAPROCEDURAL INJECT W/ LEFT VENTRICULOGRAPHY IMAGE SUPERVISION/INTERPRETATION [employer] 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 [address] [place] [address] Referral ID Status Reason Start Date Expiration Date Visits Re quested Visits Authorized [id number] 1 1 Reason Comments Hat Sprayer - Other Reason Comments Medication Problem Reason Onset Date Comments Refill Request 09/28/2022 Reason Comments Appointment Reason Onset Date Comments Refill Request 11/09/2022 Care Teams (unrecognized sec tion and content) Stuntman Relationship Specialty Start Date End Date Quang Hanson MD [address] [place] [address] PCP - General Internal Medicine 09/03/20 Kalin Alonso MD [address] [place] [phone] Home Care Physician Thoracic Surgery 10/24/20 Kaycee Ramirez,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.NUTRITIONISTS [address], [facility] [address] [place], [place] [id number] Referring Vascular Surgery 10/29/20 Mauri Chavez MD [address] [place], [place] [phone] Cardiology 11/26/20 Stuntman Relationship Specialty Start Date End Date Quang Hanson MD [address] [place] [address] PCP - General Internal Medicine 09/03/20 Kalin Alonso MD [address] [place] [address] Home Care Physician Thoracic Surgery 10/24/20 [facility] [place],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.[employer] [address] [place] [address] Referring Vascular Surgery 10/29/20 Mauri Chavez MD [address] [place] [address] Cardiology 11/26/20 Stuntman Relationship Specialty Start Date End Date Quang Hanson MD [address] [facility] [address] [place] [address] PCP - General Internal Medicine 09/03/20 Kalin Alonso MD [address] [place] [address] Home Care Physician Thoracic Surgery 10/24/20 Kaycee Ramirez,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.[employer] [address] [place] [address] Referring Vascular Surgery 10/29/20 Mauri Chavez MD [address] [place] [address] Cardiology 11/26/20 Stuntman Relationship Specialty Start Date End Date Quang Hanson MD [address] [place] [address] PCP - General Internal Medicine 09/03/20 Kalin Alonso MD [address] [place] [address] [place] [address] Home Care Physician Thoracic Surgery 10/24/20 Kaycee Ramirez,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.[employer] [address] [place] [address] Referring Vascular Surgery 10/29/20 Mauri Chavez MD [address] [place] [address] Cardiology 11/26/20 Stuntman Relationship Specialty Start Date End Date Quang Hanson MD [address] [place] [address] PCP - General Internal Medicine 09/03/20 Kalin Alonso MD [address] [place] [address] [place] [address] Home Care Physician Thoracic Surgery 10/24/20 Kaycee Ramirez,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.[employer] [address] [place] [address] Referring Vascular Surgery 10/29/20 Mauri Chavez MD [address] [place] [address] Cardiology 11/26/20 Stuntman Relationship Specialty Start Date End Date Quang Hanson MD [address] [place] [address] PCP - General Internal Medicine 09/03/20 Kalin Alonso MD [address] [place] [address] Home Care Physician Thoracic Surgery 10/24/20 Kaycee Ramirez,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.[employer]TR[employer] [address] [place] [address] Referring Vascular Surgery 10/29/20 Mauri Chavez MD [address] [place] [address] Cardiology 11/26/20 Stuntman Relationship Specialty Start Date End Date Quang Hanson MD [address] [place] [address] PCP - General Internal Medicine 09/03/20 Kalin Alonso MD [address] [place] [place] [address] Home Care Physician Thoracic Surgery 10/24/20 Kaycee Ramirez,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.[employer]TR[employer]ISTS [address] [place] [address] Referring Vascular Surgery 10/29/20 Mauri Chavez MD [address] [place] [address] Cardiology 11/26/20 Stuntman Relationship Specialty Start Date End Date Quang Hanson MD [address] [place] [address] PCP - General Internal Medicine 09/03/20 Kalin Alonso MD [address] [place] [address] Home Care Provider Thoracic Surgery 10/24/20 Kaycee Ramirez,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.[employer]TR[employer] [address] [place] [address] Referring Vascular Surgery 10/29/20 Mauri Chavez MD [address] [place] [address] Cardiology 11/26/20 Stuntman Relationship Specialty Start Date End Date Quang Hanson MD [address] [facility] [address] [place] [address] PCP - General Internal Medicine 09/03/20 Kalin Alonso MD [address] [place] [address] Home Care Provider Thoracic Surgery 10/24/20 [facility] [place],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.[employer]TR[employer]ISTS [address] [place] [address] Referring Vascular Surgery 10/29/20 Mauri Chavez MD [address] [place] [address] Cardiology 11/26/20 Stuntman Relationship Specialty Start Date End Date Quang Hanson MD [address] [facility] [address] [place] [address] PCP - General Internal Medicine 09/03/20 Kalin Alonso MD [address] [place] [address] Home Care Provider Thoracic Surgery 10/24/20 [facility] [place],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.[employer] [address] [place] [address] Referring Vascular Surgery 10/29/20 Mauri Chavez MD [address] [place] [address] Cardiology 11/26/20 Stuntman Relationship Specialty Start Date End Date Quang Hanson MD [address] [facility] [address] [place] [phone] PCP - General Internal Medicine 09/03/20 Kalin Alonso MD [address] [place] [address] Home Care Provider Thoracic Surgery 10/24/20 Kaycee Ramirez,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.[employer] [address] [address] [place] [address] Referring Vascular Surgery 10/29/20 Mauri Chavez MD [address] [place], [place] [id number] Cardiology 11/26/20 Stuntman Relationship Specialty Start Date End Date Quang Hanson MD [address] [facility] [address] [place] [address] PCP - General Internal Medicine 09/03/20 Kalin Alonso MD [address] [place] [address] Home Care Provider Thoracic Surgery 10/24/20 Kaycee Ramirez,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.[employer]TR[employer]ISTS [address] [place] [address] Referring Vascular Surgery 10/29/20 Mauri Chavez MD [address] [place], [place] [phone] Cardiology 11/26/20 Stuntman Relationship Specialty Start Date End Date Quang Hanson MD [address] [place] [address] PCP - General Internal Medicine 09/03/20 Kalin Alonso MD [address] [place] [address] Home Care Provider Thoracic Surgery 10/24/20 Kaycee Ramirez APRN.[employer] [address] [address] [place] [address] Referring Vascular Surgery 10/29/20 Mauri Chavez MD [address] [place], [place] [phone] Cardiology 11/26/20 Stuntman Relationship Specialty Start Date End Date Quang Hanson MD [address] [place] [address] PCP - General Internal Medicine 09/03/20 Kalin Alonso MD [address] [place] [address] Home Care Provider Thoracic Surgery 10/24/20 Kaycee Ramirez, MARCUS.NUTRITIONISTS [address] [place] [address] [place] [address] Referring Vascular Surgery 10/29/20 Mauri Chavez MD [address] [place], [place] [phone] Cardiology 11/26/20 (unrecognized sect ion and content) No Status Records FoundNo Status Records FoundNo Status Records Found INFORMATION SOURCE (unrecogn ized section and content) DATE CREATED AUTHOR AUTHOR'S ORGANIZ ATION 05/31/2022 [facility] DATE CREATED AUTHOR AUTHOR'S ORGANIZ ATION 02/23/2023 [facility] PRN Active and Recently Administ ered Medications (unrecognized section and content) FOR RECORDS PERTAINING TO PATIENTS WHO ARE OR HAVE BEEN ENROLLED IN A CHEMICAL DEPENDENCY/SUBSTANCEABUSE PROGRAM, SOME INFORMATION MAY BE OMITTED. This clinical summary was aggregated from multiple sources. Caution should be exercised in using it in the provision of clinical care. This summary normalizes information from multiple sources, and as a consequence, information in this document may materially change the coding, format and clinical context of patient data. In addition, data may be omitted in some cases. CLINICAL DECISIONS SHOULD BE BASED ON THE PRIMARY CLINICAL RECORDS. [facility]. provides no warranty or guarantee of the accuracy or completeness of information in this document.
[2023-03-06 09:33] LABS: Cholesterol 221 mg/dL (200); High Density Lipoprotein 33 mg/dL; Triglycerides 313 mg/dL; Very Low Density Lipoprotein 63 mg/dL (5-40)
[2023-03-07 06:37] LABS: LDL, Direct 120295 145 mg/dL (0-99)
== END | disposition home or self-care (01) ==
LOC: LAB 08:26
PROVIDERS: PCP Internal Medicine
DX: I25.10 Atherosclerotic heart disease of native coronary artery without angina pectoris (principal)
CPT/HCPCS: 36415; 80061; 83721; J7030; J7050; A4216

== ENCOUNTER → 2024-02-24 | Outpatient (CLI) | payer BC, SELFPAY ==
[2024-02-24 10:33] LABS: Bacteria 0 SEEN /hpf (None Seen); Squamous Epithelial Cells - UA 0 SEEN /hpf (0-5)
[2024-02-24 10:56] LABS: Absolute Lymphocyte Count 2.94 X10^3/uL (0.83-4.51); Absolute Neutrophil Count 3.6 X10^3/uL (2.0-7.7); Basophil# 0.11 X10^3/uL; Basophil% 1.4 % (0-1); Eosinophil# 0.43 X10^3/uL; Eosinophils% 5.6 % (0-5); Hematocrit 45.8 % (40-54); Hemoglobin 15.9 g/dL (13.0-16.5); Lymphocyte # 2.94 X10^3/ul (0.83-4.51); Lymphocyte % 38.4 % (19-41); Mean Corp Hgb Conc 34.7 g/dL (32-36); Mean Corpuscular Hgb 28.2 pg (27.0-32.0); Mean Corpuscular Volume 81.3 fL (80-94); Mean Platelet Vol. 9.5 fl (6.2-12.0); Monocyte# 0.53 X10^3/uL; Monocyte% 6.9 % (0-10); NRBC Flagged by Analyzer 0 % (0-5); Neutrophil # 3.62 X10^3/uL (2.7-7.7); Neutrophil % 47.3 % (47-70); Platelet Count 292 K/mm3 (150-450); RBC Distribution Width CV 14.3 % (11.6-14.6); RBC Distribution Width SD 41.4 fl (35.1-43.9); Red Blood Count 5.63 M/mm3 (4.6-6.2); White Blood Count 7.7 K/mm3 (4.4-11.0)
[2024-02-24 10:58] LABS: Color, Urine Yellow (Yellow); Glucose, Dipstick Normal (Normal); Ketone-Dipstick Negative (Negative); Leukocyte Esterase-Dipstick 100 /ul (Negative); Nitrite-Dipstick Negative (Negative); Occult Blood-Urine 10 /ul (Negative); Protein-Dipstick 15 mg/dl (Negative); Specific Gravity, Urine 1.015 (1.002-1.030); Urine Bilirubin Dipstick Negative (Negative); Urine Clarity Clear (Clear); Urine Urobilinogen 1 mg/dl (Normal)
[2024-02-24 11:21] LABS: AST(SGOT) 25 U/L (15-37); Alanine Aminotransfer ALT/SGPT 44 U/L (16-61); Alkaline Phosphatase 76 U/L (45-117); Anion Gap 5 (5-15); BUN 15 mg/dL (7-18); BUN/Creat Ratio 12.2 RATIO (10-20); Calcium,Total 9.4 mg/dL (8.5-10.1); Chloride 103 mmol/L (98-107); Cholesterol 233 mg/dL (200); Creatinine, Serum 1.23 mg/dL (0.70-1.30); EST Glomerular Filtration Rate 65 mL/min (>60); Est Glom Filt Rate - Afr Amer 78 mL/min (>60); Globulin 3.9 g/dL (2.2-4.2); Glucose 97 mg/dL (74-106); High Density Lipoprotein 38 mg/dL; PSA,Total - Annual Screen 3.23 ng/mL (0.00-4.00); Potassium 4.4 mmol/L (3.5-5.1); Protein, Total 7.9 g/dL (6.4-8.2); Sodium Level 139 mmol/L (136-145); Triglycerides 376 mg/dL; Very Low Density Lipoprotein 75 mg/dL (5-40)
[2024-02-24 11:43] LABS: Red Blood Cells-Urine 0-5 SEEN /hpf (0-5); White Blood Cells 0-5 SEEN /hpf (0-5)
[2024-02-24 11:45] LABS: Hyaline Cast 10-25 SEEN /lpf (0-5); Mucous, Urine 1+ /hpf (<or=2+)
[2024-02-24 14:38] LABS: Vitamin B12 351 pg/mL (211-911)
[2024-02-28 13:06] LABS: Testosterone, % Free 2.73 % (1.50-4.20); Testosterone, Free 8.11 ng/dL (5.00-21.00); Testosterone, Total 297 ng/dL (264-916)
== END | disposition home or self-care (01) ==
PROVIDERS: PCP Nurse Practitioner Family; Referring Provider Nurse Practitioner Family; Visit Provider Nurse Practitioner Family
DX: Z12.5 Encounter for screening for malignant neoplasm of prostate (principal); N52.9 Male erectile dysfunction, unspecified; I10 Essential (primary) hypertension; E56.9 Vitamin deficiency, unspecified; R35.0 Frequency of micturition
CPT/HCPCS: 36415; 80053; 80061; 81001; 82607; 82652; 83036; 84153; 84402; 84403; 84443; 85025; G0103

== ENCOUNTER → 2024-05-16 | Outpatient (CLI) | payer BC, SELFPAY | END | disposition home or self-care (01) | LOC: VSLAB 09:16 | PROVIDERS: PCP Nurse Practitioner Family; Visit Provider Nurse Practitioner Family | DX: E29.1 Testicular hypofunction (principal) | CPT/HCPCS: 36415; 84402; 84403 ==

== ENCOUNTER 2024-05-25 12:17 | Observation (INO) | payer BC, SELFPAY ==
[2024-05-25] VITALS (11 sets, daily range): BP systolic 119–145; BP diastolic 68–100; PULSE 62–92; RESP 11–20; TEMP 36–36.8; O2SAT 96–100; BMI 27.2; BMI 26.4
--- NOTE | 2024-05-25 12:49 | EKG12_ITS ---
Test Reason : DIZZINESS Blood Pressure : */* mmHG Vent. Rate : 69 BPM Atrial Rate : 69 BPM P-R Int : 208 ms QRS Dur : 86 ms QT Int : 372 ms P-R-T Axes : 60 85 79 degrees QTcB Int : 398 ms Normal sinus rhythm Normal ECG Confirmed by ALEXANDRE HU, LENIN ([id number]), book or script editor HEATHER PERALTA ([id number]) on 05/26/2024 9:33:56 AM Referred By: Chucky Maya Confirmed By: LENIN SCHROEDER MD
--- NOTE | 2024-05-25 12:54 | EDS_ITS ---
HPI History of Present Illness Chief Complaint: Dizziness Informant: patient and spouse/S.O. Narrative Narrative: 1 week history of feeling off balance with spinning. He woke up 3 AM last week Wednesday morning: The bathroom symptoms started. No headache. Symptoms persistent. reports intermittent difficulty with speech with slurring. They follow-up with ENT Dr. Adams 3 days ago placed on Valium 2 mg. They did not report the speech changes in the office. Yesterday spouse does confirm noting slight right lip droop. He has been more irritable. History of coronary bypass 4 years ago on aspirin and statin. No stroke history. Spouse reports family history dementia she has noticed changes with him the last few years. He denies headache. He states tingling bilateral feet. No hemiparesis. No medications taken today. Prior similar symptoms: No PFSH PFSH Medical History (Updated 05/25/24 @ 17:[address] Chucky Maya, DO) Smoker CPAP (continuous positive airway pressure) dependence Irregular heart beat Migraines Hypersomnia PRABHU (obstructive sleep apnea) Erectile dysfunction BPH (benign prostatic hyperplasia) Chronic fatigue Abnormal CT lung screening Left kidney mass Anxiety and depression Tobacco use disorder CAD (coronary artery disease) Post-operative pain Anemia Chronic low back pain History of stress test Bloody stool Difficulty balancing when standing Colitis Hay fever Fatigue Hemorrhoids SOB (shortness of breath) Vertigo Sleep apnea Arthritis history of broken right hip Back pain Difficulty balancing Knee pain Stomach ulcer Shoulder pain Hypertension Home Medications ?Medication ?Instructions ?Recorded ?Last Taken ?Type acetaminophen 500 mg tablet 1,000 mg PO BID PRN fever or pain 11/22/20 Unknown History (Tylenol Extra Strength) aspirin 81 mg tablet,delayed 81 mg PO DAILY 11/22/20 0 05/25/24 History release (Adult Low Dose Aspirin) isosorbide mononitrate 30 mg 30 mg PO DAILY 10/01/21 0 05/25/24 History tablet,extended release 24 hr cyclobenzaprine 10 mg tablet 10 mg PO TID PRN PRN Musc le Spasm 07/03/22 05/24/24 History meclizine 50 mg tablet 50 mg PO BID PRN dizziness # 30 tabs 08/14/22 05/25/24 Rx diazepam 2 mg tablet 2 mg PO DAILY PRN anxiety 05/25/24 History esomeprazole magnesium 40 mg 40 mg PO DAILY 05/25/24 0 05/25/24 History capsule,delayed release losartan 50 mg tablet 50 mg PO DAILY 05/25/24 04/05/16 History metoprolol tartrate 25 mg tablet 25 mg PO BID 05/25/24 05/25/24 History rosuvastatin 40 mg tablet 40 mg PO QHS 05/25/24 History tamsulosin 0.4 mg capsule 0.4 mg PO QHS 05/25/2405/24 History Allergy/AdvReac Type Severity Reaction Status Date / Time oxycodone (From OxyContin) Allergy Rash Verified 05/25/24 12:18 prednisone Allergy Flush, Verified 05/25/24 12:18 insomnia, irregular heartbeat, irritability Family History Other Arthritis CVA (cerebral vascular accident) Depression Hypertension Surgical History S/P CABG x 4 History of quadruple bypass History of nasal surgery History of repair of hip joint History of orthopedic surgery Social History Smoking Status: Current every day smoker tobacco type: cigarettes Tobacco: How many years used: 38 alcohol intake: current alcohol intake frequency: a few times a week substance use type: marijuana what type of physical activity do you participate in: none ROS ROS ED Constitutional Constitutional ED: Denies chills, fever(s) or sweats ENT ENT ED: Denies sore throat Cardiovascular Cardiovascular: Denies chest pain, leg edema, palpitations or racing heartbeat Respiratory/Chest Respiratory/Chest: Denies cough, dyspnea or dyspnea on exertion Gastrointestinal Gastrointestinal: Denies abdominal pain, diarrhea, nausea or vomiting Genitourinary Genitourinary ED: Denies dysuria, hematuria or urinary frequency Musculoskeletal Musculoskeletal: Denies back pain, extremity pain or neck pain Integumentary Denies rash or wounds Neurologic Neurologic: Reports paresthesias and other Details: Vertigo, paresthesia, off balance ; Denies headache(s) or weakness EXAM Physical Exam Const Vital Signs: 05/25/24 12:19 05/25/24 12:25 05/25/24 12:49 Temperature 96.8 F L Temperature Source Temporal Pulse Rate 92 70 68 Respiratory Rate 20 H 14 15 Blood Pressure 119/85 H 127/68 H 129/86 H Blood Pressure Mean 96 87 100 Pulse Ox 98 96 97 Oxygen Delivery Method Room Air Room Air Room Air 05/25/24 13:11 05/25/24 13:19 05/25/24 13:30 Temperature Temperature Source Pulse Rate 68 67 Respiratory Rate 12 11 L Blood Pressure 123/75 H 122/71 H Blood Pressure Mean 91 88 Pulse Ox 98 97 Oxygen Delivery Method Room Air Room Air Room Air 05/25/24 14:00 Temperature Temperature Source Pulse Rate 64 Respiratory Rate 13 Blood Pressure 127/84 H Blood Pressure Mean 98 Pulse Ox 98 Oxygen Delivery Method Room Air Positive well nourished and well developed General Appearance ED: well developed and NAD HEENT Reports moist mucous membranes normocephalic and atraumatic Eyes General Eye ED: Yes normal appearance of both eyes Neck full ROM Chest Wall Chest: Negative for tenderness Resp normal respiratory effort and normal air movement Effort and Inspection: symmetric chest movement; Negative for respiratory distress Cardio regular rate, regular rhythm and no murmurs Peripheral Pulses: pulses 2+ throughout GI normal to inspection, nondistended, normoactive bowel sounds and non-tender Palpation: Negative for guarding or rebound tenderness present Extremity normal to inspection General Extremety ED: Negative for edema or tenderness General Extremity: Negative for edema Neuro oriented x3, CN's II-XII intact bilaterally and no sensory deficits noted Neuro Narrative: NIH of 1 due to slight right lip droop. Cerebellar testing upper lower intact and symmetric. Sensorium / Orientation: awake and alert Skin no rashes or lesions noted and no wounds NIHSS NIHSS Initial: 1a Level of Consciousness: 0 1b LOC Questions (Score 2 if aphasic/stupor): 0 1c LOC Commands (Only score 1st attempt): 0 2 Best Gaze (If aphasic, use reflexive mvmts.): 0 3 Visual: 0 4 Facial Palsy: 1 5 Motor Arm Right (UN = amputation/fusion): 0 5 Motor Arm Left: 0 6 Motor Leg Right: 0 6 Motor Leg Left: 0 7 Limb ataxia (Only + if out of proportion): 0 8 Sensory (Aphasia/stupor=0 or 1, coma=2): 0 9 Best Language: 0 10 Dysarthria (mute, coma=2, intubated=UN): 0 11 Extinction and Inattention (only scored if +): 0 Total Score: 1 MDM MDM MDM Narrative Medical decision making narrative: Interventions / MDM: Differential diagnosis: Vertigo, posterior stroke Diagnosis considered but do not suspect: Large vessel occlusion, intracranial hemorrhage however CT negative. My EKG interpretation: Sinus rate of 69, no ST changes. QTc 398. Imaging independently reviewed and interpreted by myself: CT angiogram head and neck: Right internal carotid disease less than 50%. Left internal carotid disease of 50%. No LVO. No intracranial hemorrhage. Still read by radiology. External documents reviewed: N/A Test considered but not ordered:N/A ED course: Patient persistent vertigo symptoms with noted right lip droop. NIH of 1. Symptoms started a week ago. Is outside the window for any TNK. Patient ordered for CT angiogram to head and neck, labs were ordered. EKG sinus rhythm. Will plan for admission for workup. IV Reglan ordered for symptoms. CT angiogram noted carotid disease noncritical. Still had symptoms. NIH still 1. Persistent symptoms, discussed with hospitalist for admission for MRI studies. Re-evaluation: stable Disposition discussed with patient/family/significant other: Patient and family Case discussed with consulting clinician: Hospitalist This note was generated with [employer] dictation software. It may contain incorrect words, spelling, and punctuation that were not noted in checking the note before signing. Lab Data Attestation: I reviewed the patient's lab results. Labs: Laboratory Results - last 24 hr 05/25/24 12:35 WBC 7.4 RBC 5.61 Hgb 15.7 Hct 45.0 MCV 80.2 MCH 28.0 MCHC 34.9 RDW Std Deviation 40.3 RDW Coeff of Afsaneh 13.9 Plt Count 304 MPV 9.7 Immature Gran % (Auto) 0.300 Neut % (Auto) 51.3 Lymph % (Auto) 37.0 [place] % (Auto) 5.5 Eos % (Auto) 4.3 Baso % (Auto) 1.6 H Absolute Neuts (auto) 3.8 Absolute Lymphs (auto) 2.74 Nucleated RBC % 0 PT 12.6 INR 0.9 APTT 27.9 Sodium 140 Potassium 4.3 Chloride 102 Carbon Dioxide 25.4 Anion Gap 13 BUN 15 Creatinine 1.32 H Estim Creat Clear Calc 69.78 Est GFR (MDRD) Non-Af 63 BUN/Creatinine Ratio 11.4 Glucose 111 H Hemoglobin A1c 6.3 Calcium 10.2 Troponin T High Sens 7 Radiography Diagnostic Testing: Clinical Impression(s) from Imaging Studies Head/Neck CTA 05/25/24 13:10 IMPRESSION: Plaque formation at the origin of the right internal carotid artery causing less than 50% stenosis. Atherosclerotic plaque formation at the origin of the left internal carotid artery causing approximately 50% stenosis. Reading Location: [facility] Discharge Plan Dx/Rx/DC Orders Clinical Impression: Vertigo, CAD (coronary artery disease), Bilateral carotid artery disease Disposition Disposition: Acute Care Hospital [facility] Discharge Date/Time: 05/25/24 14:37
[2024-05-25 13:00] LABS: Absolute Lymphocyte Count 2.74 X10^3/uL (0.83-4.51); Absolute Neutrophil Count 3.8 X10^3/uL (2.0-7.7); Basophil# 0.12 X10^3/uL; Basophil% 1.6 % (0-1); Eosinophil# 0.32 X10^3/uL; Eosinophils% 4.3 % (0-5); Hemoglobin 15.7 g/dL (13.0-16.5); Lymphocyte # 2.74 X10^3/ul (0.83-4.51); Mean Corp Hgb Conc 34.9 g/dL (32-36); Mean Corpuscular Volume 80.2 fL (80-94); Mean Platelet Vol. 9.7 fl (6.2-12.0); Monocyte# 0.41 X10^3/uL; Monocyte% 5.5 % (0-10); NRBC Flagged by Analyzer 0 % (0-5); Neutrophil % 51.3 % (47-70); Platelet Count 304 K/mm3 (150-450); RBC Distribution Width CV 13.9 % (11.6-14.6); RBC Distribution Width SD 40.3 fl (35.1-43.9); Red Blood Count 5.61 M/mm3 (4.6-6.2); White Blood Count 7.4 K/mm3 (4.4-11.0)
[2024-05-25] MEDS: Metoclopramide 10 MG/2 ML Vial 5 MG IV (13:00)
--- NOTE | 2024-05-25 13:10 | CT_ITS ---
PROCEDURE: CTA HEAD AND NECK W/ CONTRAST 05/25/2024 REASON FOR EXAM: VERTIGO Vertigo. Lack of coordination. TECHNIQUE: CTA imaging of the head and neck from the aortic arch to the skull vertex with intravenous contrast. Coronal and Sagittal reconstruction series were provided. 3D, 3D post processing, 3D reconstructions, Maximum intensity projection (MIPs) Volume rendering and Shaded surface rendering was provided. CONTRAST: Isovue-300 VOLUME: 96 mL One or more dose reduction techniques were used (e.g., Automated exposure control, adjustment of the mA and/or kV according to patient size, use of iterative reconstruction technique). RADIATION DOSE SUMMARY: CTDlvol: 30 mGy DLP: 1657.98 mGycm COMPARISON: None FINDINGS: Aortic Arch: Normal size and branching pattern. Mild atherosclerotic plaque. Brachiocephalic and Subclavians: Atherosclerotic plaque formation at the origin of the right brachiocephalic artery and left common carotid artery. RIGHT Carotid: Right CCA: Unremarkable. Right ICA: Mild calcified and soft plaque. Maximum stenosis (NASCET): <50 % Right ECA: Unremarkable. LEFT Carotid: Left CCA: Unremarkable. Left ICA: Mild calcified and soft plaque. Maximum stenosis (NASCET): 50 % Left ECA: Unremarkable. Vertebrals: Codominant. Arise from the subclavians. Both vertebrals form the basilar. RIGHT Vertebral: Unremarkable. LEFT Vertebral: Unremarkable. Anatomy: [place] anatomy is normal. Aneurysm or avm: No intracranial aneurysms or large vascular malformations are identified. Anterior cerebral arteries: Unremarkable: Middle cerebral arteries: Unremarkable. Basilar artery: Unremarkable. Posterior cerebral arteries: Unremarkable. Other major branches of the posterior circulation: Unremarkable. Major venous structures: Unremarkable. CT/CTA Head AND Neck W/ Contrast IMPRESSION: Plaque formation at the origin of the right internal carotid artery causing les s than 50% stenosis. Atherosclerotic plaque formation at the origin of the left internal carotid art davon causing approximately 50% stenosis. Reading Location: [place] [id number]
[2024-05-25 13:20] LABS: International Normalized Ratio 0.9; Prothrombin Time (Protime)PT. 12.6 SECONDS (11.7-14.9)
[2024-05-25 13:21] LABS: Partial Thromboplast Time 27.9 Seconds (24.1-36.2)
[2024-05-25 13:28] LABS: Anion Gap 13 (5-15); BUN 15 mg/dL (4-19); BUN/Creat Ratio 11.4 RATIO (10-20); Calcium,Total 10.2 mg/dL (7.6-11.0); Carbon Dioxide 25.4 mmol/L (21.0-32.0); Chloride 102 mmol/L (98-108); Creatinine, Serum 1.32 mg/dL (0.70-1.20); EST Glomerular Filtration Rate 63 (>60); Estimated Creatinine Clearance 69.78 ml/min (50-250); Glucose 111 mg/dL (70-99); Potassium 4.3 mmol/L (3.3-5.1); Sodium Level 140 mmol/L (133-145); Troponin T High Sensitivity 7 ng/L (<=22)
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
--- NOTE | 2024-05-25 15:48 | ECHOD_ITS ---
Reason For Study : TIA/CVA Procedure This was a 2D Doppler, Color Flow transthoracic echocardiogram. Exam performed portable in patient room. Left Ventricle Normal LV size. Moderate concentric left ventricular hypertrophy. Left ventricular systolic function is normal. The left ventricular ejection fraction is 60 %. Stage 1 diastolic dysfunction. No regional wall motion abnormalities noted. Right Ventricle Normal RV size. Normal systolic function. Atria Normal left atrium. Normal right atrium. Bubble contrast study is negative for PFO/ASD. Mitral Valve Normal mitral valve. Tricuspid Valve Normal tricuspid valve. Aortic Valve Trisinus/trileaflet aortic valve. Mild focal aortic valve calcification. Pulmonic Valve Normal pulmonic valve. Great Vessels Normal aortic root. The pulmonary artery is normal size. Inferior vena cava collapse with respiration. Pericardium/Pleural No pericardial effusion. Medication Performed a rapid injection of agitated mix of 9 cc saline and 1cc air to assess for atrial septal defect. MMode/2D Measurements & Calculations LVIDd: 3.9 cm IVSd: 1.6 cm Ao root diam: 3.0 cm LVIDs: 2.7 cm LVPWd: 1.4 cm RVDd: 3.4 cm FS: 31.2 % LAV(MOD-bp): 26.8 ml LVAd ap4: 21.9 cm2 LVAd ap2: 19.3 cm2 LAV(MOD-bp) Indexed: 12.5 ml/m2 LVLd ap4: 7.9 cm LVLd ap2: 7.9 cm LAV(MOD-sp2): 26.0 ml EDV(MOD-sp4): 51.4 ml EDV(MOD-sp2): 39.7 ml LAV(MOD-sp4): 26.9 ml EDV(sp4-el): 51.2 ml EDV(sp2-el): 40.2 ml LVAs ap4: 13.2 cm2 LVAs ap2: 11.8 cm2 LVLs ap4: 7.1 cm LVLs ap2: 6.8 cm ESV(MOD-sp4): 21.6 ml ESV(MOD-sp2): 17.4 ml ESV(sp4-el): 20.8 ml ESV(sp2-el): 17.5 ml EF(MOD-sp4): 57.9 % EF(MOD-sp2): 56.2 % EF(sp4-el): 59.3 % SV(MOD-sp4): 29.8 ml SV(MOD-sp2): 22.3 ml SV(sp4-el): 30.4 ml SI(MOD-sp4): 13.8 ml/m2 SI(MOD-sp2): 10.4 ml/m2 LA A4 area: 13.2 cm2 LA dimension(2D): 3.7 cm RA A4 area: 11.8 cm2 TAPSE: 1.3 cm Time Measurements MV dec time: 0.18 sec Doppler Measurements & Calculations MV E max william: 58.5 cm/sec Lat Peak E' William: 10.5 cm/sec Med Peak E' William: 6.8 cm/sec MV A max william: 65.4 cm/sec E/E' lat: 5.6 E/E' med: 8.6 MV E/A: 0.89 MV dec slope: 329.4 cm/sec2 Ao V2 max: 103.3 cm/sec LV V1 max: 84.5 cm/sec Ao max P.3 mmHg LV V1 max P.9 mmHg Ao V2 mean: 71.7 cm/sec LV V1 mean P.6 mmHg Ao mean P.4 mmHg LV V1 mean: 57.9 cm/sec Ao V2 VTI: 22.1 cm LV V1 VTI: 18.0 cm AV (velocity ratio): 0.82 PA V2 max: 143.5 cm/sec ECHO/Echo Complete Interpretation Summary Bubble contrast study is negative for PFO/ASD. Normal LV size. Left ventricular systolic function is normal. The left ventricular ejection fraction is 60 %. Moderate concentric left ventricular hypertrophy. Stage 1 diastolic dysfunction. Ordering Physician: Joi Woodson Referring Physician: Chucky Maya Performed By: Patrizia Rivera RDCS
[2024-05-25 16:10] LABS: Troponin T High Sens 2 HR 6 ng/L (<=22)
[2024-05-25 16:15] LABS: Hemoglobin A1c 6.3 % (<=5.6)
[2024-05-25] MEDS: LORazepam 1 MG Tablet PO (17:23)
--- NOTE | 2024-05-25 17:55 | MRI_ITS ---
PROCEDURE: BRAIN WITHOUT CONTRAST 05/25/2024 REASON FOR EXAM: PERSISTENT VERTIGO TECHNIQUE: Brain MRI without intravenous contrast with additional dedicated imaging of the IACs. : COMPARISON: CT brain and CTA head and neck 06/22/2019 FINDINGS: Brain: FLAIR and T2 images demonstrate few scattered foci of nonspecific increased signal in the deep and subcortical white matter. No intracranial mass. No extra-axial collection. Diffusion weighted images: No restricted diffusion to suggest an acute infarct. Ventricles: Normal ventricular size. Major Intracranial Vessels: Normal flow void within the major intracranial vessels. Sinuses: Minimal paranasal sinus mucosal thickening. Mastoids: Mastoid air cells are clear. MRI/Brain without Contrast IMPRESSION: No acute intracranial abnormality; no acute infarct, intracranial hemorrhage or extra-axial collection. Minimal chronic microvascular ischemic changes. [facility]
[2024-05-25 18:18] LABS: Troponin T High Sens 4 HR 6 ng/L (<=22)
--- NOTE | 2024-05-25 20:05 | PN.HOSP_ITS ---
Hospitalist Note MRI negative.
--- NOTE | 2024-05-25 20:05 | PCM.HOSP.N ---
Hospitalist Note MRI negative.
[2024-05-25] MEDS: Atorvastatin Calcium 80 MG Tablet PO (20:52)
[2024-05-25] MEDS: Acetaminophen 500 MG Tablet 1000 MG PO (20:52)
[2024-05-26 01:40] VITALS: BMI 26.4
[2024-05-26 02:35] VITALS: BP 132/90; PULSE 72; RESP 16; TEMP 36.5; O2SAT 97
[2024-05-26] MEDS: cycloBENZAPRine HCl 10 MG Tablet PO (02:43)
[2024-05-26] MEDS: Meclizine HCl 25 MG Tablet 50 MG PO (02:43)
[2024-05-26] MEDS: 0.9% Saline Lock 10 ML Syringe IV (02:43)
[2024-05-26 05:55] LABS: Absolute Lymphocyte Count 3.17 X10^3/uL (0.83-4.51); Absolute Neutrophil Count 3.4 X10^3/uL (2.0-7.7); Basophil% 1.3 % (0-1); Eosinophil# 0.37 X10^3/uL; Eosinophils% 4.9 % (0-5); Hematocrit 41.9 % (40-54); Hemoglobin 14.7 g/dL (13.0-16.5); Lymphocyte # 3.17 X10^3/ul (0.83-4.51); Mean Corp Hgb Conc 35.1 g/dL (32-36); Mean Corpuscular Hgb 28.1 pg (27.0-32.0); Mean Corpuscular Volume 80.1 fL (80-94); Mean Platelet Vol. 9.8 fl (6.2-12.0); Monocyte# 0.45 X10^3/uL; NRBC Flagged by Analyzer 0 % (0-5); Neutrophil # 3.43 X10^3/uL (2.7-7.7); Neutrophil % 45.5 % (47-70); Platelet Count 276 K/mm3 (150-450); RBC Distribution Width CV 14.1 % (11.6-14.6); RBC Distribution Width SD 40.8 fl (35.1-43.9); Red Blood Count 5.23 M/mm3 (4.6-6.2); White Blood Count 7.5 K/mm3 (4.4-11.0)
[2024-05-26 06:45] LABS: Anion Gap 13 (5-15); BUN 15 mg/dL (4-19); BUN/Creat Ratio 11.7 RATIO (10-20); Carbon Dioxide 24.1 mmol/L (21.0-32.0); Chloride 103 mmol/L (98-108); Cholesterol 263 mg/dL (<=200); Creatinine, Serum 1.24 mg/dL (0.70-1.20); EST Glomerular Filtration Rate 68 (>60); Estimated Creatinine Clearance 74.28 ml/min (50-250); Glucose 105 mg/dL (70-99); High Density Lipoprotein 31 mg/dL; Low Density Lipoprotein Calc. 162 mg/dL; Sodium Level 140 mmol/L (133-145); Triglycerides 355 mg/dL; Very Low Density Lipoprotein 71 mg/dL (5-40); cholesterol:hdl ratio screen 8.62
[2024-05-26 08:35] VITALS: BP 132/84; PULSE 76; RESP 16; TEMP 36.8; O2SAT 99
[2024-05-26] MEDS: Pantoprazole Sodium 40 MG Tablet PO (10:10)
[2024-05-26] MEDS: Aspirin E.C. 81 MG Tablet PO (10:10)
[2024-05-26] MEDS: Isosorbide Mononitrate 30 MG Tablet PO (10:11)
[2024-05-26] MEDS: Enoxaparin 40 MG/0.4 ML Syringe SC (10:11)
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
[2024-05-26] MEDS: Scopolamine 1mg/72hr Patch 1 PATCH TD (12:59)
--- NOTE | 2024-05-26 13:42 | PCM.DC ---
Discharge Instructions Diet Discharge Diet: No restrictions DC O2, CPAP, BIPAP needs Home O2 Discharge instructions: No Dressing / Incision Discharge Activity: No Restrictions Follow Up Care Test Results: Test results from this visit will be discussed in further detail at your follow-up appointment, if applicable. Discharge Plan Admission Admit Date/Time: 05/25/24 14:14 Primary Reason for Your Visit: Vertigo Attending Provider: Marcos Lovelace Primary Care Provider: Genaro Olivas [facility] Consulting Providers: Nilo Hill; Radha Leyva; Mariana Stiles; Jie Palacio; Ashanti Leslie; Christiano Garcia; Mary Walls; Washington Masters; Angelito Sin; Иван Rutledge; Renee Beck; Tigre Masterson; Hanna Hammond; Bonnie Vicente; Benja Ivey; Alvin Ward; Ozzie Gibbs; Sabas Piedra; Kaylan Paulino; Ravi Fonseca; Joi Woodson Instructions Additional Instructions / Restrictions: Use scopolamine patch as needed to help with vertigo. Follow-up with vestibular physical therapy in the outpatient setting as well. Discharge Orders/Prescriptions Prescriptions: New scopolamine base 1 mg over 3 days Patch 3 Day 1 patch transdermal Q3D 14 Days Qty: 5 0RF Continued aspirin [Adult Low Dose Aspirin] 81 mg tablet,delayed release (DR/EC) 81 mg PO DAILY acetaminophen [Tylenol Extra Strength] 500 mg tablet 1,000 mg PO BID PRN (Reason: fever or pain) isosorbide mononitrate 30 mg tablet extended release 24 hr 30 mg PO DAILY Patient Comments: TAKE 1 TABLET BY MOUTH ONCE DAILY meclizine 50 mg tablet 50 mg PO BID PRN (Reason: dizziness) Qty: 30 1RF cyclobenzaprine 10 mg tablet 10 mg PO TID PRN PRN (Reason: Muscle Spasm) Patient Comments: TAKE 1/2 TO 1 TABLET THREE TIMES DAILY NEEDED FOR MUSCLE SPASM diazepam 2 mg tablet 2 mg PO DAILY PRN (Reason: anxiety) losartan 50 mg tablet 50 mg PO DAILY tamsulosin 0.4 mg capsule 0.4 mg PO QHS esomeprazole magnesium 40 mg capsule,delayed release(DR/EC) 40 mg PO DAILY rosuvastatin 40 mg tablet 40 mg PO QHS metoprolol tartrate 25 mg tablet 25 mg PO BID Referrals / Follow Up: Genaro Olivas Starr, [employer] [Primary Care Provider] - Disposition Disposition (needs filled in before D/C Order can be placed): Home, Self Care
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
[2024-05-26 14:40] VITALS: BP 132/86; PULSE 94; RESP 15; TEMP 36.7; O2SAT 99
--- NOTE | 2024-05-26 15:05 | CASEMGMT ---
MADHAV RBOERT NOTE: Discharge order is in. RN CM to room. Pt sitting up in chair in room. Introduced self and role. Discussed therapy and recommendations for OP vestibular therapy. Pt interested in going to this and would like to go to [facility], but states concern he may not have a ride, as his works during the day. Made aware of [facility] van transp. He would like to utilize this and asks MADHAV ROBERT if appt could be scheduled w/van transport. Call placed to [facility]. The 1st available appt is next Wed morning and per [facility], staff for the van transp is not available at this time to check on availability. Pt states he would like to have appt scheduled for next Fri AM and he work it out to get a ride to [facility] that day. Appt scheduled and this was added to his dc plan. Pt states when therapy worked w/him they recommended a WW but he declined. He states he has spoken w/his and she feels like he should get one. He would like a script for a WW at this time, but does not want RN CM to get it set up for him today. He states they may have someone they can borrow one from and he may end up deciding he does not want to get it after-all, but he wants to script in case he needs it. Script obtained from Dr Lovelace and provided to pt. Pt also provided w/[facility] van transp contact info. He voices no other discharge needs or concerns. in room and will take pt home. Rohini COLEMAN RN, CM
[2024-05-26 15:26] VITALS: BMI 26.4
[2024-05-26 15:27] VITALS: BMI 26.4
== END 2024-05-26 13:49 | disposition home or self-care (01) ==
LOC: ED 12:55 → PCU 14:33
PROVIDERS: Admitting Provider Student in an Organized Health Care Education/Training Program; Emergency Provider Emergency Medicine; PCP Nurse Practitioner Family; Referring Provider Emergency Medicine; Visit Provider Hospitalist
DX: H81.10 Benign paroxysmal vertigo, unspecified ear (principal); F41.9 Anxiety disorder, unspecified; R47.81 Slurred speech; I25.10 Atherosclerotic heart disease of native coronary artery without angina pectoris; R41.0 Disorientation, unspecified; R29.810 Facial weakness; H91.90 Unspecified hearing loss, unspecified ear; N40.1 Benign prostatic hyperplasia with lower urinary tract symptoms; N13.8 Other obstructive and reflux uropathy; I10 Essential (primary) hypertension; E78.5 Hyperlipidemia, unspecified; G47.33 Obstructive sleep apnea (adult) (pediatric); K21.9 Gastro-esophageal reflux disease without esophagitis; F32.A Depression, unspecified; F12.10 Cannabis abuse, uncomplicated; F17.210 Nicotine dependence, cigarettes, uncomplicated; Z79.82 Long term (current) use of aspirin; Z79.899 Other long term (current) drug therapy; Z95.1 Presence of aortocoronary bypass graft
CPT/HCPCS: 36415; 70496; 70498; 70551; 80048; 80061; 83036; 84484; 85025; 85610; 85730; 93005; 93306; 96372; 96374; 97162; 97802; 99221; 99285; Q9967; A4216; G0378

== ENCOUNTER → 2024-06-20 | Outpatient (CLI) | payer BC, SELFPAY ==
[2024-06-22 16:08] LABS: Lyme Scn Total Ab w/Rflx Negative (Negative)
== END | disposition home or self-care (01) ==
LOC: VSLAB 15:49
PROVIDERS: PCP Nurse Practitioner Family
DX: R41.0 Disorientation, unspecified (principal)
CPT/HCPCS: 36415; 86618

== ENCOUNTER → 2024-07-27 | Outpatient (CLI) | payer BC, SELFPAY ==
[2024-07-27 13:41] LABS: ALB/GLOB Ratio 1.7 RATIO (0.9-2.4); AST(SGOT) 28 U/L (<=37); Alanine Aminotransfer ALT/SGPT 33 U/L (<=46); Albumin, Serum 4.5 g/dL (3.5-5.0); Alkaline Phosphatase 73 U/L (40-129); Anion Gap 13 (5-15); BUN 17 mg/dL (4-19); BUN/Creat Ratio 13.1 RATIO (10-20); Calcium,Total 9.4 mg/dL (7.6-11.0); Carbon Dioxide 22.9 mmol/L (21.0-32.0); Chloride 105 mmol/L (98-108); Creatinine, Serum 1.27 mg/dL (0.70-1.20); EST Glomerular Filtration Rate 66 (>60); Globulin 2.6 g/dL (2.2-4.2); Glucose 132 mg/dL (70-99); Potassium 3.9 mmol/L (3.3-5.1); Protein, Total 7.1 g/dL (5.9-8.4); Sodium Level 140 mmol/L (133-145)
[2024-07-31 14:09] LABS: Folate, Hemolysate Test > 620.0 ng/mL (Not Estab.); Folate, RBC (Hct) Test 43.2 % (37.5-51.0); Folates, RBC Test > 1435 ng/mL (>498); Free Lambda Light Chains 16.9 mg/L (5.7-26.3)
== END | disposition home or self-care (01) ==
LOC: MTLAB 10:28
PROVIDERS: PCP Nurse Practitioner Family; Referring Provider Psychiatry & Neurology Neurology; Visit Provider Psychiatry & Neurology Neurology
DX: R20.2 Paresthesia of skin (principal); R42 Dizziness and giddiness
CPT/HCPCS: 36415; 80053; 82747; 83883; 85014

== ENCOUNTER → 2024-07-27 | Outpatient (CLI) | payer BC, SELFPAY ==
--- NOTE | 2024-07-27 16:18 | MRI_ITS ---
PROCEDURE: SPINE CERVICAL W/WO CONTRAST 07/27/2024 REASON FOR EXAM: NECK PAIN, PARESTHESIAS IN HANDS TECHNIQUE: Cervical spine MRI without and with Multiplanar and multisequence images were obtained with intravenous gadolinium- based contrast administration. CONTRAST: Clariscan VOLUME: 19 mL COMPARISON: CT scan on 05/25/2024. FINDINGS: Vertebrae: Mild multilevel disc dehydration. Mild multilevel disc space narrowing. Spinal Cord: Unremarkable. C2-3: Grade 1 retrolisthesis measuring 2.2 mm. Mild diffuse disc bulge. The spinal canal is not narrowed. Mild bilateral neural foramina narrowing. C3-4: Grade 1 anterolisthesis measuring 2.4 mm. Mild diffuse disc bulge. The spinal canal is not narrowed. Mild bilateral neural foraminal narrowing. C4-5: Mild diffuse disc bulge. The spinal canal is not narrowed. Mild bilateral neural foraminal narrowing. C5-6: Grade 1 anterolisthesis measuring 4.2 mm. Mild diffuse disc bulge. Superimposed broad-based left paracentral disc protrusion measuring 4.7 mm. The spinal canal is mildly narrowed. Mild bilateral neural foraminal narrowing. C6-7: Grade 1 anterolisthesis measuring 3.7 mm. Mild diffuse disc bulge. The spinal canal is not narrowed. Mild bilateral neural foraminal narrowing. C7-T1: Mild diffuse disc bulge. The spinal canal is not narrowed. Mild bilateral neural foraminal narrowing. Postcontrast images: No abnormal postcontrast enhancement is noted. MRI/Spine Cervical W/WO Contrast IMPRESSION: Spondylosis. Degenerative disc disease. No abnormal postcontrast enhancement is noted. Reading Location: [facility]
--- OUTSIDE RECORDS SUMMARY | 2024-07-27 22:04 | XMS RPT_ITS | CCD ---
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 Quang Hanson Primary Care Provider [phone] Dr. Quang Hanson Referring Provider Maximilian LABORER SHELLFISH PROCESSING, LABORER SHELLFISH PROCESSING-C Michelle Attending Provider [phone] Dr. Bill Avery Attending Provider Maximilian LABORER SHELLF[employer] PROCESSING, LABORER SHELLFISH PROCESSING-C Michelle Referring Provider Maximilian LABORER SHELLFISH PROCESSING, LABORER SHELLFISH PROCESSING-C Michelle Other Provider Dr. Quang Hanson Attending Provider Quang Hanson MD Primary Care Provider [phone] Kalin Alonso MD Unavailable Miglionico LATHE HAND.WAREDRESSER, Kaycee Unavailable Felicitas Chavez MD Unavailable Kalin Alonso MD Unavailable Quang Hanson MD Primary Care Provider Miglionico LATHE HAND.CHRISTINA, Kaycee Unavailable Dr. Quang Hanson Primary Care Provider Maximilian LABORER SHELLF[employer] PROCESSING, LABORER SHELLFISH PROCESSING-Starr Martinez Referring Provider Maximilian LABORER SHELLFISH PROCESSING, LABORER SHELLFISH PROCESSING-C Michelle Other Provider Dr. Bill Avery Attending Provider Dr. Quang Hanson Attending Provider Dr. Quang Hanson Referring Provider Dr. Fredy Montague Attending Provider MARY Perez Attending Provider Quang Hanson MD Primary Care Provider Kalin Alonso MD Unavailable Miglionico LATHE HAND.WAREDRESSER, Kaycee Unavailable Felicitas Chavez MD Unavailable Dr. Quang Hanson Primary Care Provider Dr. Quang Hanson Referring Provider Deisy LABORER SHELLFISH PROCESSING, LABORER SHELLFISH PROCESSING-C Jess Attending Provider MARY Perez Attending Provider Quang Hanson MD Primary Care Provider Quang Hanson MD Primary Care Provider Long LATHE HAND.WAREDRESSER, Kaycee Unavailable Felicitas Chavez MD Unavailable Long LATHE HAND.WAREDRESSER, Kaycee Unavailable Unavailable Carlito Luna RN Unavailable Rosas LABORER SHELLFISH PROCESSING-C, Jess Primary Care Provider Rosas LABORER SHELLFISH PROCESSING-C, Jess Attending Provider Rosas LABORER SHELLFISH PROCESSING-C, Jess Referring Provider Dr. Chucky Maya DO Referring Provider [phone] Chucky Maya DO Emergency Provider Kandice HU, Dr. Joi Baldwin Admit Provider Kandice HU, Dr. Joi Baldwin Attending Provider Kandice HU, Dr. Joi Baldwin Other Provider Sergio HU, Nilo Other Provider Unavailable Autumn HU, Dr. Garcia Other Provider Mariana Stiles MD Other Provider Unavailable Dr. Jie Palacio DO Other Provider Mariama HU, Dr. Burrell Other Provider Radha HU, Dr. Alvarado Other Provider Kavita HU, Dr. Hernandez Other Provider Sonam HU, Dr. Delarosa Other Provider Merrick HU, Dr. Eaton Other Provider Aamir HU, Dr. Oates Other Provider Kiran HU, Renee Other Provider Aleja HU, Dr. Landeros Other Provider Manish HU, Dr. Ferreira Other Provider Jules HU, Dr. Nicole Other Provider Loni HU, Dr. Benja Man Other Provider Ed HU, Dr. Esquivel Other Provider Bernie HU, Dr. Horne Other Provider Dorothea HU, Dr. Obregon Other Provider Jefferson HU, Dr. Kimbrough Other Provider Unavailable Raymundo HU, Ravi Other Provider Unavailable Dr. Marcos Lovelace DO Attending Provider Carol HU, Dr. Santos Attending Provider Dr. Marcos Lovelace DO Other Provider [phone] Deisy VASQUEZ, Jess Primary Care Provider Kalin Alonso MD Unavailable Unava ilable Long LATHE HAND.Kaycee VASQUEZ Unavailable Unavailable Deisy LABORER SHELLF[employer] PROCESSING-C, Jess Primary Care Provider Deisy LABORER SHELLF[employer] PROCESSING-C, Jess Attending Provider Beam LABORER SHELL[employer] PROCESSING-C, Faheem Attending Provider [phone] Deisy LABORER SHELL[employer] PROCESSING-C, Jess Referring Provider Dr. Terrell Quiles MD Attending Provider EDE, CIERA Attending Unavailable RAMIREZ THOMAS Referring Unavailable OLEGHE, EFEWONGBE B Primary Care Unavailable EDE, CIERA Referring Unavailable OLEGHE, EFEWONGBE B Primary Care Unavailable EDE, CIERA Referring Unavailable OLEGHE, EFEWONGBE B Primary Care Unavailable EDE, CIERA Attending Unavailable EDE, CIERA Referring Unavailable OLEGHE, EFEWONGBE B Primary Care Unavailable O'BELIACELIA Attending Unavailable ROSAS, JESS Primary Care Unavailable MARUNOWSKI, AV Referring Unavailable ROSAS, JESS Primary Care Unavailable TOOTIE CORONADOY Referring Unavailable O'BELIACELIA BEARD Attending Unavailable RAMIREZ THOMAS Referring Unavailable OLEGHE, EFEWONGBE B Primary Care Unavailable RAMIREZ THOMAS Attending Unavailable OLEGHE, EFEWONGBE B Primary Care Unavailable RAMIREZ THOMAS Referring Unavailable OLEGHE, EFEWONGBE B Primary Care Unavailable JEWAN, SHEHREEN Admitting Unavailable ITRAT, AHMED KUN Consulting Unavailable AV CORONADO Attending Unavailable ROSAS, JESS Primary Care Unavailable ROSAS, JESS Primary Care Unavailable SELF Referring Unavailable SCOTT, FELICITAS M Attending Unavailable SCOTT FELICITAS M Referring Unavailable ROSAS, JESS Primary Care Unavailable MARUNOWSKI, AV Referring Unavailable ROSAS, JESS Primary Care Unavailable Rosas, Jess Primary Care Unavailable Deisy, Jess Referring Unavailable Terrell Quiles Attending Unavailable Jess Rosas Attending Unavailable Rosas, Jess Primary Care Unavailable Rosas, Jess Primary Care Unavailable Marcos Lovelace Referring Unavailable Marcos Lovelace Attending Unavailable Deisy, Jess Primary Care Unavailable Terrell Quiles Referring Unavailable Terrell Quiles Attending Unavailable Rosas, Jess Primary Care Unavailable Beam Faheem THOMAS Attending Unavailable Rosas, Jess Primary Care Unavailable Kandice, Joi Nicolasa Admitting Unavailable Marcos Lovelace Attending Unavailable Nilo Hill Consulting Unavailable Le, Chucky Referring Unavailable Adeli, Amir Consulting Unavailable Hinduja, Mariana Consulting Unavailable Hakeem, Jie Consulting Unavailable Zha, Ashanti Consulting Unavailable Radha, Christiano Consulting Unavailable Her Kavitaa Consulting Unavailable Bittar, Washington Consulting Unavailable Abhay Sin Consulting Unavailable Aamir Иван Consulting Unavailable BeTami persaudaret Consulting Unavailable Tigre Masterson Consulting Unavailable Manish, Hanna Consulting Unavailable Ridleandro, Mohamed Consulting Unavailable Loni, Mhd Donovan Consulting UnavailAlvin Singh Consulting Unavailable Gibbs, Rami Consulting Unavailable Dorothea, Sabas Consulting Unavailable Jefferson, Kaylan Consulting Unavailable Hansyeda, Yousef Consulting Unavailable Koram, Joi Nicolasa Consulting Unavailable Jess Rosas Referring Unavailable Jess Rosas Attending Unavailable Deisy, Jess Primary Care Unavailable Rosas, Jess Primary Care Unavailable Tom Medina Attending Unavailable Deisy, Jess Primary Care Unavailable Koram, Joi Nicolasa Admitting Unavailable Marcos Lovelace Attending Unavailable Nilo Hill Consulting Unavailable Chucky Maya Referring Unavailable Radha Leyva Consulting Unavailable Mariana Stiles Consulting Unavailable Hakeem Jie Consulting Unavailable Amee Lesliecia Consulting Unavailable Radha, Christiano Consulting Unavailable Kavita, Mary Consulting Unavailable Bittar, Washington Consulting Unavailable Abhay Sin Consulting Unavailable Aamir Иван Consulting Unavailable BeTami persaudaret Consulting Unavailable Aleja, Tigre Consulting Unavailable Manish, Hanna Consulting Unavailable Ridha, Mohamed Consulting Unavailable Zapattih, Lizzied Donovan Consulting UnavailAlvin Singh Consulting Unavailable Gibbs, Rami Consulting Unavailable Dorothea, Sabas Consulting Unavailable Jefferson, Kaylan Consulting Unavailable Hansyeda, Yousef Consulting Unavailable Guillermoam, Joi Nicolasa Consulting Unavailable Marcos Lovelace Consulting Unavailable Guillermoam, Joi Nicolasa Attending Unavailable Allergies Allergy Classification Reported Allergen(s) Allergy Type Date of Onset Reaction(s) Facility Corticosteroids (1 source) predniSONE Drug Allergy 04-24-2015 [facility] Opioid Agonists (1 source) oxyCODONE Drug Allergy 04-24-2015 [facility] (20 sources) oxyCODONE; Translations: [OXYCODONE] Drug Allergy 04-24-2015 [facility] Work Phone: (20 sources) predniSONE; Translations: [PREDNISONE] Drug Allergy 04-24-2015 [facility]olerance [facility] Work Phone: (1 source) oxyCODONE Drug Allergy 07-05-2024 [facility] Repository (1 source) predniSONE Drug Allergy 07-05-2024 [facility] Repository Medications Current Medications Medication Drug Class(es) Dates Sig (Normalized) Sig (Original) acetaminophen 500 mg oral tablet (20 sources) Start: 11-22-2020 take 2 tablets by mouth twice daily as needed for pain Acetaminophen (Tylenol Extra Strength) 500 mg tablet Active 1000 mg PO TWICE A DAY as needed for fever or pain November 22, 2020 12:00am Start: 10-29-2020 take 2 tablets by mo [facility] every six hours as needed acetaminophen (TYLENOL) 500 mg tablet Take 2 tablets by mouth every 6 hours as needed for pain. 10/29/2020 Active Start: 01-04-2020 End: 07-19-2020 Acetaminophen 325 MG tablet Discontinued 650 mg PO EVERY 6 HOURS NEEDED as needed for Pain Score 1-10/Temp > 100.7 F January 04, 2020 1:00am July 19, 2020 9:12am Start: 01-04-2020 End: 07-19-2020 take 650 mg by mouth every six hours as needed Acetaminophen Discontinued 650 MG PO EVERY 6 HOURS NEEDED January 04, 2020 12:00am July 19, 2020 8:12am Comment on above: Take 2 tablets by mo ut every 6 hours as needed for pain. aspirin 81 mg chewable tablet (20 sources) Platelet Aggregation Inhibitor, Nonsteroidal Anti-inflammatory Drug Start: 11-26-2020 take 1 tablet by mouth once daily aspirin 81 mg chewable tablet Take 1 tablet by mouth once daily. 30 tablet 11/26/2020 Active Start: 11-22-2020 Aspirin (Adult Low Dose Aspirin) 81 mg tablet,delayed release (DR/EC) Active 81 mg PO DAILY November 22, 2020 12:00am Start: 11-22-2020 Aspirin (Adult Low Dose Aspirin) 81 mg tablet,delayed release (DR/EC) Active 162 mg PO DAILY November 22, 2020 12:00am Start: 10-30-2020 End: 11-26-2020 take 2 tablets by mouth once daily, then take 1 tablet by mouth once daily aspirin 81 mg chewable tablet Take 2 tablets by mouth once daily for 30 days, THEN 1 tablet once daily. 420 tablet 10/30/2020 11/26/2020 Discontinued Start: 09-12-2020 End: 09-12-2020 take 1 tablet by mouth once daily Aspirin 325 mg tablet Discontinued 325 mg PO DAILY September 12, 2020 12:00am September 12, 2020 10:58am Start: 02-26-2020 End: 09-12-2020 Aspirin (Adult Low Dose Aspi rin) 81 mg tablet,delayed release (DR/EC) Discontinued 81 mg PO DAILY February 26, 2020 1:00am September 12, 2020 10:30am Comment on above: Take 1 tablet by pete th once daily. cholecalciferol, vitamin D3, (VITAMIN D3 ORAL) (18 sources) cholecalciferol, vitamin D3, (VITAMIN D3 ORAL) Take by mouth once daily. Active cholecalciferol, vitamin D3, (VITAMIN D3 ORAL) Take by mouth once daily. 0 Active cyclobenzaprine hydrochloride 5 mg oral tablet (20 sources) Muscle Relaxant Start: 02-24-2024 take 2 tablets by mouth every eight hours as needed cyclobenzaprine (FLEXERIL) 5 mg tablet Take 10 mg by mouth three times a day as needed. 02/24/2024 Active Start: 07-03-2022 take 1 tablet by pete th three times daily as needed for muscle spasms Cyclobenzaprine 10 mg tablet Active 10 mg PO 3 TIMES DAILY NEEDED as needed for Muscle Spasm July 03, 2022 12:00am Start: 03-16-2018 End: 08-18-2018 take 1 tablet by mouth three times daily as needed for muscle spasms Cyclobenzaprine 10 mg tablet Discontinued 10 mg PO THREE TIMES A DAY as needed for muscle spasm March 16, 2018 1:00am August 18, 2018 8:20am dexamethasone 6 mg oral tablet (2 sources) Corticosteroid Start: 12-30-2021 take 6 mg by mouth once daily Dexamethasone Active 6 MG PO DAILY December 30, 2021 1:00am diazePAM 5 mg oral tablet (20 sources) Benzodiazepine Start: 05-31-2024 take 1 tablet by mouth once daily as needed for anxiety diazePAM (VALIUM) 5 mg tablet TAKE 1 TABLET BY MOUTH ONCE DAILY NEEDED FOR ANXIETY/VERTIGO 05/31/2024 Active Start: 05-25-2024 take 1 tablet by pete th once daily as needed for anxiety Diazepam 2 mg tablet Active 2 mg PO DAILY as needed for anxiety May 25, 2024 12:00am Start: 09-12-2020 End: 09-23-2020 take 1 tablet by mouth twice daily as needed Diazepam 2 mg tablet Discontinued 2 mg PO TWICE A DAY as needed for vertigo September 12, 2020 12:00am September 23, 2020 3:21pm Start: 01-09-2017 End: 03-16-2018 take 1 tablet by mouth three times daily as needed Diazepam 2 MG tablet Discontinued 2 mg PO 3 TIMES DAILY NEEDED as needed for Vertigo January 09, 2017 1:00am March 16, 2018 1:19pm esomeprazole 40 mg delayed release oral capsule (7 sources) Proton Pump Inhibitor Start: 05-14-2024 take 1 capsule by mouth once daily Esomeprazole Magnesium 40 mg capsule,delayed release(DR/EC) Active 40 mg PO DAILY May 25, 2024 12:00am 24 hr isosorbide mononitrate 30 mg extended release oral tablet (20 sources) Nitrate Vasodilator Start: 09-03-2021 End: 01-10-2024 take 1 tablet by mouth once daily, then take 1 tablet by mouth every twenty-four hours Isosorbide Mononitrate 30 mg tablet extended release 24 hr Active 30 mg PO DAILY October 01, 2021 12:00am Comment on above: Take 1 tablet by pete th once daily. Take 1 tablet by pete th once daily meclizine hydrochloride 50 mg oral tablet (20 sources) Antiemetic Start: 08-14-2022 take 1 tablet by mouth twice daily as needed for dizziness Meclizine 50 mg tablet Active 50 mg PO TWICE A DAY as needed for dizziness August 14, 2022 4:22pm Start: 09-12-2020 End: 09-23-2020 take 25-50 mg by mouth twice daily as needed for dizziness Meclizine 25 mg tablet Discontinued 25 - 50 mg PO TWICE A DAY as needed for dizziness September 12, 2020 12:00am September 23, 2020 4:30pm Start: 05-05-2019 End: 08-03-2019 take 1 tablet by mouth twice daily as needed Meclizine 25 mg tablet Discontinued 25 mg PO TWICE A DAY as needed for vertigo May 05, 2019 12:00am August 03, 2019 5:04pm metoprolol tartrate 25 mg oral tablet (20 sources) beta-Adrenergic [place] Start: 05-25-2024 take 1 tablet by mouth twice daily Metoprolol Tartrate 25 mg tablet Active 25 mg PO TWICE A DAY May 25, 2024 12:00am Start: 02-23-2023 End: 04-10-2024 take 1 tablet by mouth twice daily metoprolol tartrate, short acting, (LOPRESSOR) 25 mg tablet Indications: Primary hypertension Take 1 tablet by mouth twice daily 180 tablet 04/10/2024 Active Start: 09-30-2022 End: 12-29-2022 take 1 tablet by mouth twice daily metoprolol tartrate, short acting, (LOPRESSOR) 25 mg tablet Indications: Primary hypertension Take 1 tablet by mouth twice daily 60 tablet 1 12/29/2022 Active Start: 07-07-2022 End: 09-28-2022 take 1 tablet by mouth twice daily metoprolol tartrate, short acting, (LOPRESSOR) 25 mg tablet Take 1 tablet by mouth twice daily. 90 tablet 0 07/07/2022 09/28/2022 Discontinued Start: 04-24-2021 End: 05-29-2022 take 1 tablet by mouth twice daily metoprolol tartrate, short acting, (LOPRESSOR) 25 mg tablet Take 1 tablet by mouth twice daily 90 tablet 0 05/29/2022 Active Start: 11-22-2020 End: 05-25-2024 Metoprolol Tartrate 50 mg ta blet Discontinued 25 mg PO TWICE A DAY November 22, 2020 12:00am May 25, 2024 12:24pm Start: 11-22-2020 take 25 mg by mouth twice mallory y Metoprolol Tartrate Active 25 MG PO TWICE A DAY November 21, 2020 11:00pm Start: 11-05-2020 End: 11-26-2020 take 0.5 tablet by mouth every twelve hours metoprolol tartrate, short acting, (LOPRESSOR) 50 mg tablet Take 0.5 tablets by mouth every 12 hours. 30 tablet 11/05/2020 11/26/2020 Discontinued Comment on above: Take 1 tablet by pete th twice daily. Take 1 tablet by pete th twice daily perflutren lipid microspheres 1.3 mL in NaCl (PF) 0.9% 10 mL injection (DEFINITY) (14 sources) Start: End: 3 perflutren lipid microspheres 1.3 mL in NaCl (PF) 0.9% 10 mL injection (Social & LoyalITY) rosuvastatin calcium 40 mg oral tablet (20 sources) HMG-CoA Reductase Inhibitor Start: 5 take 1 tablet by mouth at bedtime Rosuvastatin 40 mg tablet Active 40 mg PO AT BEDTIME May 25, 2024 12:00am Start: 10-14-2020 End: 05-25-2024 take 1 tablet by mouth at bedtime Rosuvastatin 20 mg tablet Discontinued 20 mg PO AT BEDTIME November 22, 2020 12:00am May 25, 2024 12:24pm Comment on above: Take 1 tablet by pete th daily at bedtime. TAKE 1 TABLET BY PETE TH EVERY DAY AT BEDTIME 125 ml sodium chloride 9 mg/ml prefilled syringe (14 sources) Start: End: 3 sodium chloride 0.9 % (flush) 10 mL (BD POSIFLUSH) tamsulosin hydrochloride 0.4 mg oral capsule (3 sources) alpha-Adrenergic [place] Start: 5 take 1 capsule by mouth at bedtime Tamsulosin 0.4 mg capsule Active 0.4 mg PO AT BEDTIME May 25, 2024 12:00am Completed/Discontinued Medications Medication Drug Class(es) Dates Sig (Normalized) Sig (Original) acetaminophen 325 mg / HYDROcodone bitartrate 5 mg oral tablet (20 sources) Opioid Agonist Start: 11-12-2021 End: 11-19-2021 Hydrocodone-Acetami nophen 5-325 mg tablet Discontinued 1 {tbl} PO TWICE A DAY as needed for pain 14 November 12, 2021 November 18, 2021 12:00am November 19, 2021 12:10am Start: 11-12-2021 End: 11-19-2021 take 1 tablet by mouth twice daily Hydrocodone-Acetaminophen Discontinued 1 TABLET PO TWICE A DAY 14 November 12, 2021 November 18, 2021 11:10pm Start: 11-22-2020 End: 10-15-2021 Hydrocodone-Acetaminophen 5- 325 mg tablet Discontinued 1 {tbl} PO TWICE A DAY as needed for pain 14 November 22, 2020 November 28, 2020 12:00am November 29, 2020 12:01am Start: 11-22-2020 End: 11-29-2020 take 1 tablet by mouth twice daily Hydrocodone-Acetaminophen Discontinued 1 TABLET PO TWICE A DAY 14 November 22, 2020 November 28, 2020 11:01pm Comment on above: Take 1 tablet by pete th twice daily as needed. acetaminophen 325 mg / oxyCODONE hydrochloride 5 mg oral tablet (20 sources) Opioid Agonist Start: 07-03-2022 End: 05-25-2024 Oxycodone-Acetaminophen (Percocet) 5-325 mg tablet Discontinued 1 {tbl} PO EVERY 6 HOURS as needed for pain 10 July 03, 2022 May 25, 2024 1:03pm Start: 09-27-2020 End: 10-04-2020 Oxycodone-Acetaminophen 5-32 5 mg tablet Discontinued 1 {tbl} PO TWICE A DAY 14 7 September 27, 2020 October 03, 2020 12:00am October 04, 2020 12:01am Start: 09-27-2020 End: 10-04-2020 take 1 tablet by mouth twice daily Oxycodone-Acetaminophen Discontinued 1 TABLET PO TWICE A DAY 14 7 September 27, 2020 October 03, 2020 11:01pm Start: 09-27-2020 End: 10-15-2021 oxyCODONE-acetaminophen (PER COCET) 5-325 mg tablet Start: 09-23-2020 End: 09-27-2020 Oxycodone-Acetaminophen 5-32 5 mg tablet Discontinued 2 {tbl} PO DAILY September 23, 2020 12:00am September 27, 2020 2:58pm Start: 09-23-2020 End: 09-27-2020 take 2 tablets by mouth once daily Oxycodone-Acetaminophen Discontinued 2 TABLET PO DAILY September 22, 2020 11:00pm September 27, 2020 1:58pm Start: 09-16-2020 End: 09-23-2020 Oxycodone-Acetaminophen (Per cocet) 5-325 mg tablet Discontinued 1 {tbl} PO TWICE A DAY as needed for pain 14 September 16, 2020 September 22, 2020 12:00am September 23, 2020 12:01am [id number] actuat albuterol 0.09 mg/actuat metered dose inhaler (20 sources) beta2-Adrenergic Agonist Start: 07-14-2020 End: 05-14-2022 Albuterol Sulfate (Ventolin Hfa) 90 mcg/actuation HFA aerosol inhaler Discontinued 2 NMA INHALATION EVERY 4 HOURS NEEDED as needed for Wheezing September 02, 2020 2:34pm May 14, 2022 3:02pm Start: 07-14-2020 End: 05-14-2022 take 1 puff(s) by inhalation every four hours as needed Albuterol Sulfate (Ventolin Hfa) 90 mcg/actuation HFA aerosol inhaler Discontinued 2 PUFF INHALATION EVERY 4 HOURS NEEDED September 02, 2020 1:34pm May 14, 2022 2:02pm albuterol HFA (P ROVENTIL HFA, VENTOLIN HFA) 90 mcg/actuation inhaler Inhale 2 Puffs as instructed. Active Comment on above: Inhale 2 Puffs as in structed. amLODIPine 10 mg oral tablet (11 sources) Dihydropyridine Calcium Channel [place] Start: 03-24-19 End: 05-05-19 take 1 tablet by mouth once daily Amlodipine 10 mg tablet Discontinued 10 mg PO DAILY March 24, 2019 1:00am May 05, 2019 3:57pm 24 hr buPROPion hydrochloride 150 mg extended release oral tablet (20 sources) Aminoketone Start: 08-03-19 End: 08-10-19 take 1 tablet by mouth once daily in the morning Bupropion Hcl 150 mg tablet extended release 24 hr Discontinued 150 mg PO EVERY MORNING 7 7 August 03, 2019 12:00am August 09, 2019 12:00am August 10, 2019 12:02am Start: 10-09-2017 End: 08-03-2019 take 1 tablet by mouth once daily Bupropion Hcl 300 mg tablet extended release 24 hr Discontinued 300 mg PO DAILY August 18, 2018 5:28pm August 03, 2019 10:54am citalopram 40 mg oral tablet (20 sources) Serotonin Reuptake Inhibitor Start: 02-13-2020 End: 04-22-2021 take 1 tablet by mouth once daily Citalopram 40 mg tablet Discontinued 40 mg PO DAILY February 22, 2020 2:00pm June 11, 2020 4:49pm Start: 10-12-2019 End: 02-13-2020 take 1 tablet by mouth once daily Citalopram 20 mg tablet Discontinued 20 mg PO DAILY December 12, 2019 6:15pm February 13, 2020 6:55pm Start: 09-14-2019 End: 10-12-2019 take 1 tablet by mouth once daily Citalopram 10 mg tablet Discontinued 10 mg PO DAILY September 14, 2019 12:00am October 12, 2019 7:36pm take one tablet daily; discontinue duloxetine prior to initiation of citalopram Comment on above: Take 40 mg by mouth once daily. diclofenac sodium 75 mg delayed release oral tablet (11 sources) Nonsteroidal Anti-inflammatory Drug Start: End: take 1 tablet by mouth twice daily as needed for pain Diclofenac Sodium 75 mg tablet,delayed release (DR/EC) Discontinued 75 mg PO TWICE A DAY as needed for pain December 12, 2019 12:00am February 13, 2020 6:55pm diphenhydrAMINE hydrochloride 25 mg oral capsule (20 sources) Histamine-1 Receptor Antagonist Start: End: take 1 capsule by mouth at bedtime Diphenhydramine Hcl (Banophen) 25 mg capsule Discontinued 25 mg PO AT BEDTIME July 19, 2020 12:00am November 22, 2020 3:10pm Start: 01-17-2020 End: 02-26-2020 take 1 tablet by mouth three times daily as needed for dizziness Diphenhydramine Hcl (Benadryl Allergy) 25 mg tablet Discontinued 25 mg PO THREE TIMES A DAY as needed for dizziness or vertigo January 17, 2020 1:00am February 26, 2020 3:17pm DULoxetine 30 mg delayed release oral capsule (20 sources) Serotonin and Norepinephrine Reuptake Inhibitor Start: 08-03-2019 End: 08-10-2019 take 1 capsule by mouth once daily Duloxetine 30 mg capsule,delayed release(DR/EC) Discontinued 30 mg PO DAILY 08 28August 03, 2019 12:00am August 09, 2019 12:00August 10, 2019 12:02am Start: 08-03-2019 End: 09-14-2019 take 1 capsule by mouth once daily Duloxetine 60 mg capsule,delayed release(DR/EC) Discontinued 60 mg PO DAILY August 03, 2019 12:00am September 14, 2019 6:06pm ezetimibe 10 mg oral tablet (20 sources) Dietary Cholesterol Absorption Inhibitor Start: 10-14-2020 End: 12-03-2024 take 1 tablet by mouth once daily Ezetimibe 10 mg tablet Discontinued 10 mg PO DAILY November 22, 2020 12:00am December 30, 2021 2:39pm Comment on above: Take 1 tablet by pete once daily. flurbiprofen 100 mg oral tablet (11 sources) Nonsteroidal Anti-inflammatory Drug Start: 02-13-2020 End: 02-26-2020 take 1 tablet by mouth three times daily as needed for pain Flurbiprofen 100 mg tablet Discontinued 100 mg PO THREE TIMES A DAY as needed for pain February 13, 2020 1:00am February 26, 2020 3:17pm gabapentin 100 mg oral capsule (20 sources) Anti-epileptic Agent Start: 11-22-2020 End: 10-15-2021 take 1 capsule by mouth twice daily Gabapentin 100 mg capsule Discontinued 100 mg PO TWICE A DAY November 22, 2020 12:00am August 29, 2021 10:18am Start: 11-05-2020 End: 11-26-2020 take 3 capsules by mouth three times daily gabapentin (NEURONTIN) 100 mg capsule Take 3 capsules by mouth three times daily for 14 days. 126 capsule 11/05/2020 11/26/2020 Discontinued (Course of therapy completed) Comment on above: Take by mouth. hydroCHLOROthiazide 25 mg / triamterene 37.5 mg oral tablet (20 sources) Potassium-sparing Diuretic, Thiazide Diuretic Start: 05-05-2019 End: 02-26-2020 Start: 05-05-2019 End: 02-26-2020 take 1 tablet by mouth once daily Triamterene-Hydrochlorothiazid Discontin ued 1 TABLET PO DAILY December 12, 2019 2:41pm February 26, 2020 2:17pm Start: 08-24-2018 End: 03-24-2019 Triamterene-Hydrochlorothiaz id 37.5-25 mg tablet Discontinued 1 {tbl} PO DAILY August 24, 2018 12:00am March 24, 2019 8:56am Start: 08-24-2018 End: 03-24-2019 take 1 tablet by mouth once daily Triamterene-Hydrochlorothiazid Discontin ued 1 TABLET PO DAILY August 23, 2018 11:00pm March 24, 2019 7:56am Start: 08-18-2018 End: 08-24-2018 take 1 capsule by mouth once daily Triamterene-Hydrochlorothiazid Discontin ued 1 CAP PO DAILY August 23, 2018 4:42pm August 24, 2018 12:53pm hydrOXYzine hydrochloride 25 mg oral tablet (11 sources) Antihistamine Start: 01-02-2020 End: 02-13-2020 take 1 tablet by mouth twice daily as needed for dizziness Hydroxyzine Hcl 25 mg tablet Discontinued 25 mg PO TWICE A DAY as needed for dizziness January 02, 2020 1:00am February 13, 2020 6:55pm icosapent ethyl 1000 mg oral capsule (11 sources) Start: 09-23-2018 End: 05-05-2019 Icosapent Ethyl (Vascepa) 1 gram capsule Discontinued 2 g PO TWICE A DAY September 23, 2018 12:00am May 05, 2019 3:59pm Insta Flex (11 sources) Start: 08-18-2018 End: 05-05-2019 Insta Flex Discontinued PO August 17, 2018 11:00pm May 05, 2019 2:59pm Start: 08-18-2018 End: 05-05-2019 Insta Flex Discontinued PO 2018 12:00am May 05, 2019 3:59pm lansoprazole 15 mg delayed release oral capsule (20 sources) Proton Pump Inhibitor Start: 03-27-2019 End: 05-05-2019 take 1 capsule by mouth once daily Lansoprazole (Prevacid) 15 mg capsule,delayed release(DR/EC) Discontinued 15 mg PO DAILY March 28, 2019 9:56am May 05, 2019 3:59pm lidocaine 0.04 mg/mg medicated patch (10 sources) Antiarrhythmic, Amide Local Anesthetic Start: 10-30-2020 End: 10-15-2021 lidocaine (SALONPAS) 4 % patch Apply 1 Patch as directed once daily. Cut in half and apply to either side of midsternal chest incision. Remove after 12 hrs. 10/30/2020 10/15/2021 Discontinued Comment on above: Apply 1 Patch as dir ected once daily. Cut in half and apply to either side of midsternal chest incision. Remove after 12 hrs. loratadine 10 mg oral tablet (20 sources) Start: 12-25-2019 End: 01-17-2020 take 1 tablet by mouth once daily as needed for dizziness Loratadine 10 mg tablet Discontinued 10 mg PO DAILY as needed for dizziness or vertigo December 25, 2019 5:33pm January 17, 2020 11:57am Start: 08-03-2019 End: 12-12-2019 take 1 tablet by mouth once daily as needed for dizziness Loratadine 10 mg tablet Discontinued 10 mg PO DAILY as needed for dizziness or vertigo August 03, 2019 12:00am December 12, 2019 3:40pm losartan potassium 50 mg oral tablet (20 sources) Angiotensin 2 Receptor [place] Start: 05-25-2024 End: 07-05-2024 take 1 tablet by mouth once daily Losartan 50 mg tablet Discontinued 50 mg PO DAILY May 25, 2024 12:00am July 05, 2024 8:20am Start: 05-05-2019 End: 11-22-2020 take 1 tablet by mouth once daily Losartan 50 mg tablet Discontinued 0 .ROUTE .COMPLEX 90 July 23, 2020 2:55pm November 22, 2020 3:12pm Take 1 tablet by mouth once daily Magnesium (11 sources) Start: 11-22-2020 End: 08-29-2021 take 2 tablets by mouth once daily Magnesium 200 mg tablet Discontinued 400 mg PO DAILY November 22, 2020 12:00am August 29, 2021 10:18am Start: 11-22-2020 End: 08-29-2021 take 400 mg by mouth once daily Magnesium Discontinued 400 MG PO DAILY November 21, 2020 11:00pm August 29, 2021 9:18am Start: 11-22-2020 End: 08-29-2021 take 400 mg by mouth once daily Magnesium Discontinued 400 MG PO DAILY November 22, 2020 12:00am August 29, 2021 10:18am magnesium oxide 400 mg oral tablet (1 source) Start: 10-30-2020 End: 11-26-2020 take 1 tablet by mouth once daily magnesium oxide (MAG-OX) 400 mg (241.3 mg magnesium) tablet Take 1 tablet by mouth once daily. 10/30/2020 11/26/2020 Discontinued (Course of therapy completed) melatonin 3 mg oral capsule (20 sources) Start: 11-22-2020 End: 08-29-2021 take 1 capsule by mouth at bedtime as needed Melatonin 3 mg capsule Discontinued 3 mg PO BEDTIME as needed November 22, 2020 12:00am August 29, 2021 10:19am Start: 10-29-2020 take 1 tablet by pete th every twenty-four hours as needed melatonin 3 mg tablet Take 1 tablet by mouth at bedtime as needed (insomnia). 10/29/2020 Active Start: 05-05-2019 End: 02-26-2020 take 1 capsule by mouth at bedtime as needed for sleep Melatonin 10 mg capsule Discontinued 10 mg PO BEDTIME as needed for Sleep May 05, 2019 12:00am February 26, 2020 3:17pm Comment on above: Take 1 tablet by pete th at bedtime as needed (insomnia). meloxicam 15 mg oral tablet (20 sources) Nonsteroidal Anti-inflammatory Drug Start: End: take 1 tablet by mouth once daily as needed for pain Meloxicam 15 mg tablet Discontinued 15 mg PO DAILY as needed for pain October 12, 2019 12:00am December 12, 2019 6:15pm Start: 09-14-2019 End: 10-12-2019 take 1 tablet by mouth twice daily as needed for pain Meloxicam 7.5 mg tablet Discontinued 7.5 mg PO TWICE A DAY as needed for joint pain 60 September 14, 2019 12:00am October 12, 2019 7:36pm Start: 03-24-2019 End: 05-05-2019 take 1 tablet by mouth once daily as needed for pain Meloxicam (Mobic) 15 mg tablet Discontinued 15 mg PO DAILY as needed for pain March 24, 2019 1:00am May 05, 2019 3:59pm metaxalone 800 mg oral tablet (6 sources) Start: 07-03-2022 End: 05-25-2024 take 1 tablet by mouth three times daily Metaxalone 800 mg tablet Discontinued 800 mg PO THREE TIMES A DAY 11 09July 03, 2022 12:00am May 25, 2024 1:03pm methylPREDNISolone 4 mg oral tablet (6 sources) Corticosteroid Start: 07-03-2022 End: 05-25-2024 Methylprednisolone 4 mg tablets,dose pack Discontinued 0 .ROUTE .COMPLEX July 03, 2022 12:00am May 25, 2024 12:24pm 4 mg orally taper Last dose 5/13 Multivitamin preparation (7 sources) Start: 02-24-2021 End: 08-29-2021 take 1 tablet by mouth once daily Multivitamin Discontinued 1 TABLET PO DAILY February 24, 2021 12:00am August 29, 2021 9:19am Start: 02-24-2021 End: 08-29-2021 take 1 tablet by mouth once daily Multivitamin Discontinued 1 TABLET PO DAILY February 24, 2021 1:00am August 29, 2021 10:19am Multivitamin tablet (4 sources) Start: 02-24-2021 End: 08-29-2021 Multivitamin tablet Discontinued 1 {tbl} PO DAILY February 24, 2021 1:00am August 29, 2021 10:19am Mv,Ca,Gjv-Tcxb-Bs-Lycope ne (Centrum Men) 8 mg iron- 200 mcg-600 mcg tablet (11 sources) Start: 05-05-2019 End: 12-12-2019 take 8 tablets by mouth once Mv,Ca,Nmi-Fkjs-Rg-Lycop nithin (Centrum Men) 8 mg iron- 200 mcg-600 mcg tablet Discontinued {tbl} PO May 05, 2019 12:00am December 12, 2019 3:40pm Start: 05-05-2019 End: 12-12-2019 Mv,Ca,Zxp-Crmq-My-Lycopene ( Centrum Men) 8 mg iron- 200 mcg-600 mcg tablet Discontinued TABLET PO May 04, 2019 11:00pm December 12, 2019 2:40pm Start: 05-05-2019 End: 12-12-2019 Mv,Ca,Fah-Ttkc-Jl-Lycopene ( Centrum Men) 8 mg iron- 200 mcg-600 mcg tablet Discontinued TABLET PO May 05, 2019 12:00am December 12, 2019 3:40pm nabumetone 500 mg oral tablet (20 sources) Nonsteroidal Anti-inflammatory Drug Start: 09-12-2020 End: 12-24-2020 take 1 tablet by mouth twice daily as needed for pain Nabumetone 500 mg tablet Discontinued 500 mg PO TWICE A DAY as needed for back pain September 12, 2020 12:00am December 24, 2020 6:52pm Comment on above: Take by mouth. naproxen 500 mg oral tablet (11 sources) Nonsteroidal Anti-inflammatory Drug Start: 10-09-2017 End: 08-18-2018 take 1 tablet by mouth twice daily Naproxen 500 MG tablet Discontinued 500 mg PO TWICE A DAY October 09, 2017 12:00am August 18, 2018 8:20am 24 hr nicotine 0.583 mg/hr transdermal system (20 sources) Cholinergic Nicotinic Agonist Start: 02-24-2021 End: 08-29-2021 apply 1 dose topically every twenty-four hours Nicotine 14 mg/24 hr patch 24 hour Discontinued 1 NMA TOPICAL Q24H February 24, 2021 1:00am August 29, 2021 10:19am Start: 02-24-2021 End: 08-29-2021 apply 1 dose topically every twenty-four hours Nicotine Discontinued 1 PATCH TOPICAL Q24H February 24, 2021 12:00am August 29, 2021 9:19am Start: 10-30-2020 apply 1 dose transde rmal route once daily nicotine (NICODERM) 14 mg/24 hr Apply 1 Patch as directed once daily. 30 Patch 10/30/2020 Active Comment on above: Apply 1 Patch as dir ected once daily. omeprazole 20 mg delayed release oral tablet (20 sources) Proton Pump Inhibitor Start: 07-03-2022 End: 05-25-2024 take 1 tablet by mouth once daily Omeprazole Magnesium (Prilosec Otc) 20 mg Tablet,Delayed Release (Dr/Ec) Discontinued 20 mg PO DAILY July 03, 2022 12:00am May 25, 2024 1:03pm Start: 11-26-2020 End: 04-22-2021 take 1 capsule by mouth once daily Omeprazole 40 mg capsule,delayed release(DR/EC) Discontinued 40 mg PO DAILY February 24, 2021 1:00am April 22, 2021 6:04pm Start: 09-23-2020 End: 11-22-2020 take 1 capsule by mouth once daily Omeprazole 40 mg capsule,delayed release(DR/EC) Discontinued 40 mg PO DAILY September 23, 2020 4:26pm November 22, 2020 3:13pm Start: 07-19-2020 End: 09-23-2020 Omeprazole 40 mg capsule,del ayed release(DR/EC) Discontinued 20 mg PO DAILY July 19, 2020 9:12am September 23, 2020 4:26pm Start: 07-19-2020 End: 09-23-2020 take 20 mg by mouth once daily Omeprazole Discontinued 20 MG PO DAILY July 19, 2020 8:12am September 23, 2020 3:26pm Start: 06-11-2020 End: 07-19-2020 take 1 capsule by mouth once daily Omeprazole 40 mg capsule,delayed release(DR/EC) Discontinued 40 mg PO DAILY June 11, 2020 12:00am July 19, 2020 9:12am Start: 09-14-2019 End: 06-11-2020 take 1 capsule by mouth once daily Omeprazole 20 mg capsule,delayed release(DR/EC) Discontinued 20 mg PO DAILY February 13, 2020 6:56pm June 11, 2020 4:48pm oxyCODONE hydrochloride 5 mg oral tablet (5 sources) Opioid Agonist Start: 08-25-2022 End: 05-25-2024 take 1 tablet by mouth every six hours as needed for pain Oxycodone 5 mg tablet Discontinued 5 mg PO EVERY 6 HOURS as needed for pain 10 August 25, 2022 May 25, 2024 1:03pm pantoprazole 20 mg delayed release oral tablet (20 sources) Proton Pump Inhibitor Start: 12-24-2020 End: 07-07-2021 take 1 tablet by mouth once daily Pantoprazole 20 mg tablet,delayed release (DR/EC) Discontinued 20 mg PO DAILY April 22, 2021 1:00am July 07, 2021 8:38am Comment on above: Take 20 mg by mouth once daily. microencapsulated potassium chloride 20 meq extended release oral tablet (11 sources) Start: 11-04-2018 End: 03-24-2019 take 1 tablet by mouth once daily Potassium Chloride 20 mEq tablet,ER particles/crystal s Discontinued 20 meq PO DAILY November 04, 2018 12:00am March 24, 2019 8:56am predniSONE 10 mg oral tablet (9 sources) Start: 12-28-2019 End: 10-15-2021 predniSONE (DELTASONE) 10 mg tablet Take by mouth. 0 12/28/2019 10/15/2021 Discontinued Comment on above: Take by mouth. regadenoson 0.4 mg injection (LEXISCAN) (1 source) Start: 09-08-2021 End: 09-08-2021 regadenoson 0.4 mg injection (LEXISCAN) 72 hr scopolamine 0.0139 mg/hr transdermal system (2 sources) Anticholinergic Start: 05-26-2024 End: 07-05-2024 Scopolamine Base 1 mg over 3 days Patch 3 Day Discontinued 1 NMA TD Every 3 Days 5 14 May 26, 2024 12:00am July 05, 2024 8:21am sertraline 50 mg oral tablet (20 sources) Serotonin Reuptake Inhibitor Start: 05-05-2019 End: 08-03-2019 take 1 tablet by mouth once daily Sertraline 50 mg tablet Discontinued 50 mg PO DAILY May 05, 2019 12:00am August 03, 2019 10:54am Start: 08-18-2018 End: 03-24-2019 take 1 tablet by mouth once daily Sertraline 25 mg tablet Discontinued 0 .ROUTE .COMPLEX December 14, 2018 1:44pm March 24, 2019 8:56am TAKE 1 TABLET BY MOUTH ONCE DAILY traMADol hydrochloride 50 mg oral tablet (11 sources) Opioid Agonist Start: 01-09-2017 End: 03-16-2018 Tramadol 50 MG tablet Discontinued 1 {tbl} PO THREE TIMES A DAY as needed for Pain January 09, 2017 1:00am March 16, 2018 1:18pm traZODone hydrochloride 50 mg oral tablet (11 sources) Serotonin Reuptake Inhibitor Start: 03-24-2019 End: 05-05-2019 take 1 tablet by mouth at bedtime Trazodone 50 mg tablet Discontinued 50 mg PO AT BEDTIME March 24, 2019 1:00am May 05, 2019 3:57pm Triamterene-Hydrochl orothiazid (12 sources) Start: 08-23-2018 End: 08-24-2018 take 1 capsule by mouth once daily Triamterene-Hydroc hlorothiazid Discontinued 1 CAP PO DAILY August 23, 2018 4:42pm August 24, 2018 12:53pm Start: 08-23-2018 End: 08-24-2018 take 1 capsule by mouth once daily Triamterene-Hydrochlorothiazid Discontin ued 1 CAP PO DAILY August 23, 2018 3:42pm August 24, 2018 11:53am Start: 08-18-2018 End: 08-23-2018 take 1 capsule by mouth once daily Triamterene-Hydrochlorothiazid Discontin ued 1 CAP PO DAILY August 18, 2018 5:28pm August 23, 2018 4:42pm Start: 08-18-2018 End: 08-23-2018 take 1 capsule by mouth once daily Triamterene-Hydrochlorothiazid Discontin ued 1 CAP PO DAILY August 18, 2018 4:28pm August 23, 2018 3:42pm Start: 08-18-2018 End: 08-18-2018 take 1 capsule by mouth once daily Triamterene-Hydrochlorothiazid Discontin ued 1 CAP PO DAILY August 18, 2018 12:00am August 18, 2018 5:29pm Start: 08-18-2018 End: 08-18-2018 take 1 capsule by mouth once daily Triamterene-Hydrochlorothiazid Discontin ued 1 CAP PO DAILY August 17, 2018 11:00pm August 18, 2018 4:29pm Triamterene-Hydrochlorothiaz id 50-25 mg capsule (12 sources) Start: 08-23-2018 End: 08-24-2018 Triamterene-Hydrochlorothiaz id 50-25 mg capsule Discontinued 1 NMA PO DAILY August 23, 2018 4:42pm August 24, 2018 12:53pm Start: 08-18-2018 End: 08-23-2018 Triamterene-Hydrochlorothiaz id 50-25 mg capsule Discontinued 1 NMA PO DAILY August 18, 2018 5:28pm August 23, 2018 4:42pm Start: 08-18-2018 End: 08-18-2018 Triamterene-Hydrochlorothiaz id 50-25 mg capsule Discontinued 1 NMA PO DAILY August 18, 2018 12:00am August 18, 2018 5:29pm Problems Active Problems Problem Classification Problem Date Documented Date Episodic/Chronic Administrative/social admission (11 sources) Patient encounter status; Translations: [Persons encountering health services in other specified circumstances] 02-26-2020 Episodic Anxiety disorders (20 sources) Anxiety; Translations: [Anxiety disorder, unspecified] Onset: 01-14-2021 01-14-2021 Chronic Cardiac dysrhythmias (20 sources) Tachycardia; Translations: [Tachycardia, unspecified] Onset: 01-14-2021 01-14-2021 Episodic Conditions associated with dizziness or vertigo (20 sources) Vertigo; Translations: [Dizziness and giddiness] Onset: 01-14-2021 01-14-2021 Episodic Coronary atherosclerosis and other heart disease (20 sources) Stable angina due to coronary arteriosclerosis; Translations: [Atherosclerotic heart disease of [place] coronary artery with other forms of angina pectoris] Onset: 10-22-2020 10-29-2020 Chronic Disorders of lipid metabolism (20 sources) Dyslipidemia; Translations: [Hyperlipidemia, unspecified] Onset: 01-14-2021 Chronic E Codes: Fall (1 source) Unspecified fall, initial encounter; Translations: [Fall, initial encounter] Onset: 06-09-2024 Episodic Esophageal disorders (12 sources) Gastroesophageal reflux disease; Translations: [Gastro-esophageal reflux disease without esophagitis] 04-22-2021 Chronic Essential hypertension (20 sources) Hypertensive disorder; Translations: [Essential (primary) hypertension] Onset: 01-14-2021 01-14-2021 Chronic Gastroduodenal ulcer (except hemorrhage) (20 sources) Gastric ulcer; Translations: [Gastric ulcer, unspecified as acute or chronic, without hemorrhage or perforation] Onset: 01-14-2021 01-14-2021 Chronic Headache; including migraine (1 source) Headache disorder; Translations: [Headache disorder] Onset: 06-09-2024 Episodic Hyperplasia of prostate (9 sources) Benign prostatic hyperplasia; Translations: [Benign prostatic hyperplasia without lower urinary tract symptoms] Chronic Malaise and fatigue (14 sources) Fatigue; Translations: [Chronic fatigue, unspecified] Onset: 07-05-2024 Chronic Mood disorders (20 sources) Depressive disorder; Translations: [Depressive disorder] Onset: 01-14-2021 01-14-2021 Chronic Nonspecific chest pain (20 sources) Precordial pain; Translations: [Precordial pain] Episodic Osteoarthritis (20 sources) Arthritis; Translations: [Unspecified osteoarthritis, unspecified site] Onset: 01-14-2021 01-14-2021 Chronic Other circulatory disease (2 sources) Disorder of carotid artery; Translations: [Disorder of arteries and arterioles, unspecified] 05-25-2024 Chronic Other circulatory disease (5 sources) H/O: heart disorder; Translations: [Personal history of other diseases of the circulatory system] 09-02-2022 Episodic Other connective tissue disease (20 sources) Difficulty balancing; Translations: [Other symptoms and signs involving the nervous system] Onset: 01-14-2021 01-14-2021 Episodic Other connective tissue disease (20 sources) Bursitis of olecranon of right elbow; Translations: [Olecranon bursitis, right elbow] Onset: 01-14-2021 01-14-2021 Episodic Other connective tissue disease (6 sources) Spasm; Translations: [Other muscle spasm] 07-03-2022 Episodic Other diseases of kidney and ureters (9 sources) Renal mass; Translations: [Other specified disorders of kidney and ureter] 10-01-2021 Chronic Other diseases of kidney and ureters (2 sources) Other specified disorders of kidney and ureter; Translations: [Unspecified disorder of kidney and ureter] Chronic Other endocrine disorders (1 source) Testicular hypofunction; Translations: [Testicular hypofunction] Onset: 05-22-2024 Chronic Other lower respiratory disease (20 sources) Dyspnea; Translations: [Shortness of breath] Onset: 01-14-2021 01-14-2021 Episodic Other lower respiratory disease (6 sources) Dyspnea on exertion; Translations: [Other forms of dyspnea] Episodic Other lower respiratory disease (9 sources) Computed tomography result abnormal; Translations: [Other nonspecific abnormal finding of lung field] 10-01-2021 Episodic Other lower respiratory disease (4 sources) Shortness of breath; Translations: [Shortness of breath] Episodic Other lower respiratory disease (1 source) Other forms of dyspnea; Translations: [SHAH (dyspnea on exertion)] Onset: 06-06-2024 Episodic Other male genital disorders (9 sources) Male erectile dysfunction, unspecified; Translations: [Erectile dysfunction] 05-14-2022 Chronic Other nervous system disorders (2 sources) Other chronic pain; Translations: [Chronic bilateral low back pain without sciatica] Onset: 01-14-2021 Chronic Other nervous system disorders (20 sources) Postoperative pain ; Translations: [Other acute postprocedural pain] Onset: 01-14-2021 01-14-2021 Episodic Other nervous system disorders (3 sources) Impaired cognition; Translations: [Other symptoms and signs involving cognitive functions and awareness] Onset: 06-21-2024 06-21-2024 Episodic Other nervous system disorders (1 source) Other symptoms and signs involving cognitive functions and awareness; Translations: [Cognitive impairment] Onset: 06-21-2024 Episodic Other nervous system disorders (1 source) Paresthesia of skin; Translations: [Paresthesia of skin] Onset: 07-25-2024 Episodic Other non-traumatic joint disorders (20 sources) Pain in unspecified knee; Translations: [Pain in joint, lower leg] Onset: 01-14-2021 01-14-2021 Episodic Other non-traumatic joint disorders (20 sources) Shoulder pain; Translations: [Pain in unspecified shoulder] Onset: 01-14-2021 01-14-2021 Episodic Other non-traumatic joint disorders (1 source) Pain in unspecified shoulder; Translations: [Pain in joint, shoulder region] 07-03-2022 Episodic Residual codes; unclassified (20 sources) Sleep apnea; Translations: [Sleep apnea, unspecified] Onset: 01-14-2021 01-14-2021 Chronic Residual codes; unclassified (7 sources) Obstructive sleep apnea syndrome; Translations: [Obstructive sleep apnea (adult) (pediatric)] 05-15-2022 Chronic Residual codes; unclassified (7 sources) Hypersomnia; Translations: [Hypersomnia, unspecified] 05-14-2022 Chronic Residual codes; unclassified (2 sources) Hypersomnia, unspecified; Translations: [Hypersomnia, unspecified] 05-14-2022 Chronic Residual codes; unclassified (2 sources) Obstructive sleep apnea (adult) (pediatric); Translations: [Obstructive sleep apnea (adult)(pediatric)] 05-14-2022 Chronic Residual codes; unclassified (1 source) Disorientation, unspecified; Translations: [Disorientation, unspecified] Onset: 06-26-2024 Episodic Rheumatoid arthritis and related disease (2 sources) Rheumatoid arthritis, unspecified; Translations: [Rheumatoid arthritis] 05-14-2022 Chronic Spondylosis; intervertebral disc disorders; other back problems (20 sources) Backache; Translations: [Dorsalgia, unspecified] Onset: 01-14-2021 01-14-2021 Episodic Substance-related disorders (20 sources) Nicotine dependence; Translations: [Nicotine dependence, unspecified, uncomplicated] Onset: 10-26-2020 10-29-2020 Chronic Comment on above: current 1/2 ppd, 30 pack history Unclassified (1 source) Chronic bilateral low back pain without sciatica; Translations: [Chronic bilateral low back pain without sciatica] Onset: 01-14-2021 Viral infection (9 sources) Disease caused by 2019-nCoV; Translations: [COVID-19] Episodic Past or Other Problems Problem Classification Problem Date Documented Da te Episodic/Chronic Coronary atherosclerosis and other heart disease (1 source) Presence of aortocoronary bypass graft; Translations: [Hx of CABG] Onset: 02-05-2023 Episodic Immunizations and screening for infectious disease (20 sources) Anti-nuclear factor positive; Translations: [Other specified abnormal immunological findings in serum] Onset: 01-14-2021 01-14-2021 Episodic Other non-traumatic joint disorders (4 sources) Pain in right knee; Translations: [Pain in joint, lower leg] Onset: 01-14-2021 07-27-2023 Episodic Other non-traumatic joint disorders (2 sources) Pain in left knee; Translations: [Chronic pain of both knees] Onset: 01-14-2021 Episodic Other screening for suspected conditions (not mental disorders or infectious disease) (1 source) Encounter for screening for malignant neoplasm of prostate; Translations: [Encounter for screening for malignant neoplasm of prostate] Onset: 03-21-2024 Episodic Unclassified (11 sources) history of broken right hip 08-18-2018 Results Test Name Value Interpretation Reference Range Facility [facility] HAYDEN PENDLETON ([id number]) 1965 M Date Time Provider Department 07/13/24 FELICITAS CHAVEZ AGCARDHWG During your visit today, we recorded the following information about you: Cheri Logan MA 07/13/2024 7:29 AM Signed Last seen 06/06/2024, please call patient for follow up appointment with Dr. Chavez or MARCUS. Ana Grijalva 07/13/2024 10:41 AM Signed AVS states the patient's return will depend on monitor results. When should the patient to return for a follow up? Ana Grijalva Allergies As of Date: 07/13/2024 Noted Allergy Reaction OXYCOTIN (OXYCODONE) 04/24/2015 2 - Rash PREDNISONE 04/24/2015 5 - Intolerance Comments: flushing of skin-steriods Date Reviewed: 06/10/2024 Reviewed by: Av Coronado DO - Fully Assessed Prescriptions as of 07/13/2024 - cyclobenzaprine (FLEXERIL) 5 mg tablet Take 10 mg by mouth three times a day as needed. - diazePAM (VALIUM) 5 mg tablet TAKE 1 TABLET BY MOUTH ONCE DAILY NEEDED FOR ANXIETY/VERTIGO - esomeprazole (NEXIUM) 40 mg capsule Take 1 capsule by mouth once daily. - ezetimibe (ZETIA) 10 mg tablet Take 1 tablet by mouth once daily. - metoprolol tartrate, short acting, (LOPRESSOR) 25 mg tablet Take 1 tablet by mouth twice daily - rosuvastatin (CRESTOR) 20 mg tablet TAKE 1 TABLET BY MOUTH ONCE DAILY AT BEDTIME - isosorbide mononitrate ER (IMDUR) 30 mg 24 hr tablet Take 1 tablet by mouth once daily - cholecalciferol, vitamin D3, (VITAMIN D3 ORAL) Take by mouth once daily. - nabumetone (RELAFEN) 500 mg tablet Take by mouth. - omeprazole (PRILOSEC) 40 mg capsule Take 40 mg by mouth as needed. - pantoprazole DR (PROTONIX) 20 mg tablet Take 20 mg by mouth once daily. - aspirin 81 mg chewable tablet Take 1 tablet by mouth once daily. - acetaminophen (TYLENOL) 500 mg tablet Take 2 tablets by mouth every 6 hours as needed for pain. - melatonin 3 mg tablet Take 1 tablet by mouth at bedtime as needed (insomnia). - nicotine (NICODERM) 14 mg/24 hr Apply 1 Patch as directed once daily. - albuterol HFA (PROVENTIL HFA, VENTOLIN HFA) 90 mcg/actuation inhaler Inhale 2 Puffs as instructed. Problem List As Of Date 07/13/2024 Noted Resolved Stable angina pectoris due to arteriosclerosis *10/22/2020 Nicotine use disorder, F17.2 [F17.200] 10/26/2020 S/P CABG x 4 [Z95.1] 10/28/2020 Knee pain [M25.569] 01/14/2021 Anxiety [F41.9] 01/14/2021 Arteriosclerosis of coronary artery [I25.10] 01/14/2021 Arthritis [M19.90] 01/14/2021 Back pain [M54.9] 01/14/2021 Depressive disorder [F32.A] 01/14/2021 Difficulty balancing [R29.818] 01/14/2021 Gastric ulcer [K25.9] 01/14/2021 Hyperlipidemia [E78.5] 01/14/2021 Hypertension [I10] 01/14/2021 Olecranon bursitis of right elbow [M70.21] 01/14/2021 Positive antinuclear antibody [R76.8] 01/14/2021 Postoperative pain [G89.18] 01/14/2021 Shortness of breath [R06.02] 01/14/2021 Shoulder pain [M25.519] 01/14/2021 Sleep apnea [G47.30] 01/14/2021 Tachycardia [R00.0] 01/14/2021 Vertigo [R42] 01/14/2021 CAD (coronary artery disease) [I25.10] 02/05/2023 Dyslipidemia [E78.5] 02/05/2023 HTN (hypertension) [I10] 02/05/2023 Hx of CABG [Z95.1] 02/05/2023 Palpitations [R00.2] 06/06/2024 Dizziness [R42] 06/09/2024 Cognitive impairment [R41.89] 06/21/2024 Vestibular hypofunction [H83.2X9] 07/03/2024 Encounter Status:Closed by ANA GRIJALVA on 07/13/24 [facility] CNTHERAPYon 07-12-2024 CNTHERAPY OT/PT/Speech Visit (PTWS) HAYDEN PENDLETON ([id number]) 1965 M Date Time Provider Department 07/12/24 9:45 AM CELIA SANDERS PTWS Date Time Provider Department Center 07/12/2024 9:45 AM [id number] SANDERS PTWS Mynor [facility]arg Reason for Visit: PT Discharge [752] Primary Visit Diagnosis:Vestibular hypofunction, unspecified laterality [H83.2X9] Allergies As of Date: 07/12/2024 Noted Allergy Reaction OXYCOTIN (OXYCODONE) 04/24/2015 2 - Rash PREDNISONE 04/24/2015 5 - Intolerance Comments: flushing of skin-steriods Date Reviewed: 06/10/2024 Reviewed by: Av Coronado DO - Fully Assessed Prescriptions as of 07/12/2024 - cyclobenzaprine (FLEXERIL) 5 mg tablet Take 10 mg by mouth three times a day as needed. - diazePAM (VALIUM) 5 mg tablet TAKE 1 TABLET BY MOUTH ONCE DAILY NEEDED FOR ANXIETY/VERTIGO - esomeprazole (NEXIUM) 40 mg capsule Take 1 capsule by mouth once daily. - ezetimibe (ZETIA) 10 mg tablet Take 1 tablet by mouth once daily. - metoprolol tartrate, short acting, (LOPRESSOR) 25 mg tablet Take 1 tablet by mouth twice daily - rosuvastatin (CRESTOR) 20 mg tablet TAKE 1 TABLET BY MOUTH ONCE DAILY AT BEDTIME - isosorbide mononitrate ER (IMDUR) 30 mg 24 hr tablet Take 1 tablet by mouth once daily - cholecalciferol, vitamin D3, (VITAMIN D3 ORAL) Take by mouth once daily. - nabumetone (RELAFEN) 500 mg tablet Take by mouth. - omeprazole (PRILOSEC) 40 mg capsule Take 40 mg by mouth as needed. - pantoprazole DR (PROTONIX) 20 mg tablet Take 20 mg by mouth once daily. - aspirin 81 mg chewable tablet Take 1 tablet by mouth once daily. - acetaminophen (TYLENOL) 500 mg tablet Take 2 tablets by mouth every 6 hours as needed for pain. - melatonin 3 mg tablet Take 1 tablet by mouth at bedtime as needed (insomnia). - nicotine (NICODERM) 14 mg/24 hr Apply 1 Patch as directed once daily. - albuterol HFA (PROVENTIL HFA, VENTOLIN HFA) 90 mcg/actuation inhaler Inhale 2 Puffs as instructed. Normal [facility] CNTHERAPYon 07-03-2024 CNTHERAPY OT/PT/Speech Visit (PTWS) HAYDEN PENDLETON ([id number]) 1965 M Date Time Provider Department 07/03/24 8:00 AM CELIA SANDERS PTNAOMIE Date Time Provider Department Center 07/03/2024 8:00 AM [id number] SANDERS PTNAOMIE [place] Reason for Visit: PT Eval [747] Primary Visit Diagnosis:Vestibular hypofunction, unspecified laterality [H83.2X9] Allergies As of Date: 07/03/2024 Noted Allergy Reaction OXYCOTIN (OXYCODONE) 04/24/2015 2 - Rash PREDNISONE 04/24/2015 5 - Intolerance Comments: flushing of skin-steriods Date Reviewed: 06/10/2024 Reviewed by: Av Coronado DO - Fully Assessed Prescriptions as of 07/03/2024 - cyclobenzaprine (FLEXERIL) 5 mg tablet Take 10 mg by mouth three times a day as needed. - diazePAM (VALIUM) 5 mg tablet TAKE 1 TABLET BY MOUTH ONCE DAILY NEEDED FOR ANXIETY/VERTIGO - esomeprazole (NEXIUM) 40 mg capsule Take 1 capsule by mouth once daily. - ezetimibe (ZETIA) 10 mg tablet Take 1 tablet by mouth once daily. - metoprolol tartrate, short acting, (LOPRESSOR) 25 mg tablet Take 1 tablet by mouth twice daily - rosuvastatin (CRESTOR) 20 mg tablet TAKE 1 TABLET BY MOUTH ONCE DAILY AT BEDTIME - isosorbide mononitrate ER (IMDUR) 30 mg 24 hr tablet Take 1 tablet by mouth once daily - cholecalciferol, vitamin D3, (VITAMIN D3 ORAL) Take by mouth once daily. - nabumetone (RELAFEN) 500 mg tablet Take by mouth. - omeprazole (PRILOSEC) 40 mg capsule Take 40 mg by mouth as needed. - pantoprazole DR (PROTONIX) 20 mg tablet Take 20 mg by mouth once daily. - aspirin 81 mg chewable tablet Take 1 tablet by mouth once daily. - acetaminophen (TYLENOL) 500 mg tablet Take 2 tablets by mouth every 6 hours as needed for pain. - melatonin 3 mg tablet Take 1 tablet by mouth at bedtime as needed (insomnia). - nicotine (NICODERM) 14 mg/24 hr Apply 1 Patch as directed once daily. - albuterol HFA (PROVENTIL HFA, VENTOLIN HFA) 90 mcg/actuation inhaler Inhale 2 Puffs as instructed. Normal [facility] Lyme Screen W/Reflex WBon LYME SCREEN Ab Negative Normal Negative [facility] Comment on above: Result Comment: Lyme antibodies not detected. Reflex testing is not indicated. No laboratory evidence of infection with B. burgdorferi (Lyme disease). Negative results may occur in patients recently infected (less than or equal to 14 days) with B. burgdorferi. If recent infection is suspected, repeat testing on a new sample collected in 7 to 14 days is recommended. Performed at: [address] [id number] [place] Estimator: Loy Lopez PhD, Phone: [phone] Performed By: #### L 257.4740, W954.1872, L123.4328 #### [facility] Laboratory [facility] [place], [address] CNTHERAPYon 06-21-2024 CNTHERAPY OT/PT/Speech Visit (LTOT) HAYDEN PENDLETON ([id number]) 1965 M Date Time Provider Department 06/21/24 3:00 PM CLARITZA VARGAS Date Time Provider Department Center 06/21/2024 3:00 PM [id number] , [facility] Reason for Visit: OT EVAL [748] Visit Diagnosis:Cognitive impairment [R41.89] Allergies As of Date: 06/21/2024 Noted Allergy Reaction OXYCOTIN (OXYCODONE) 04/24/2015 2 - Rash PREDNISONE 04/24/2015 5 - Intolerance Comments: flushing of skin-steriods Date Reviewed: 06/10/2024 Reviewed by: Av Coronado DO - Fully Assessed Prescriptions as of 06/21/2024 - cyclobenzaprine (FLEXERIL) 5 mg tablet Take 10 mg by mouth three times a day as needed. - diazePAM (VALIUM) 5 mg tablet TAKE 1 TABLET BY MOUTH ONCE DAILY NEEDED FOR ANXIETY/VERTIGO - esomeprazole (NEXIUM) 40 mg capsule Take 1 capsule by mouth once daily. - ezetimibe (ZETIA) 10 mg tablet Take 1 tablet by mouth once daily. - metoprolol tartrate, short acting, (LOPRESSOR) 25 mg tablet Take 1 tablet by mouth twice daily - rosuvastatin (CRESTOR) 20 mg tablet TAKE 1 TABLET BY MOUTH ONCE DAILY AT BEDTIME - isosorbide mononitrate ER (IMDUR) 30 mg 24 hr tablet Take 1 tablet by mouth once daily - cholecalciferol, vitamin D3, (VITAMIN D3 ORAL) Take by mouth once daily. - nabumetone (RELAFEN) 500 mg tablet Take by mouth. - omeprazole (PRILOSEC) 40 mg capsule Take 40 mg by mouth as needed. - pantoprazole DR (PROTONIX) 20 mg tablet Take 20 mg by mouth once daily. - aspirin 81 mg chewable tablet Take 1 tablet by mouth once daily. - acetaminophen (TYLENOL) 500 mg tablet Take 2 tablets by mouth every 6 hours as needed for pain. - melatonin 3 mg tablet Take 1 tablet by mouth at bedtime as needed (insomnia). - nicotine (NICODERM) 14 mg/24 hr Apply 1 Patch as directed once daily. - albuterol HFA (PROVENTIL HFA, VENTOLIN HFA) 90 mcg/actuation inhaler Inhale 2 Puffs as instructed. Normal [facility] ALLIED HEALTHon 06-13-2024 ALLIED HEALTH HNO ID: [id number] Author: JESS SALAS Chaplain Service: ? Author Type: Type: Allied Health Filed: 06/13/2024 14:15 Note Text: SPIRITUAL CARE ASSESSMENT SERVICE DATE: 06/13/2024 SERVICE TIME: 10:31 Visit with: Patient Length of visit (minutes): 20 Anglican / Spirituality: Jainism Reason: Initial visit ASSESSMENT Emotional Disposition: Confused, Determined, and Hopeful Relational Concerns: Struggling with Self-care Spiritual Concerns: Lack of peace INTERVENTIONS Empowerment: Encouraged self-care and Provided Healing Services Exploration: Explored spiritual needs and resources, Facilitated life review, and Facilitated story telling Relationship Building: Provided hospitality Ritual: Provided prayer OUTCOMES Patient expressed gratitude, Patient expressed hope based on preferred future outcomes, and Spiritual resources utilized PLAN Follow-up not needed COMMENTS: 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 SIGNATURE: Chaplain Terrell PATIENT NAME: Hayden Pendleton DATE: June 13, 2024 TIME: 2:08 PM PAGER/CONTACT #: [phone] [facility] CNDSon 06-13-2024 CNDS HNO ID: [id number] Author: AV CORONADO DO Service: Hospital Medicine Author Type: Physician Type: Discharge Summary Filed: 06/13/2024 11:15 Note Text: DISCHARGE SUMMARY PATIENT NAME: Hayden Pendleton Code Status: Full Code Highest Readmission Risk Score: 13 The 30 day readmissions risk score is derived from an internally validated risk model which evaluates patient level characteristics, utilization history, medication orders and lab results up until the day of discharge. Patients with a score of 39 or above are considered highest risk for readmission. Specific patient level drivers will be listed at the bottom of the summary. Admission Information Admission Information ADMIT DATE: 06/09/2024 DISCHARGE DATE: 06/13/2024 MY DOCTORS AND MEDICAL TEAM: My Main Hospital Doctor: Av Coronado DO Primary Care Provider: Jess Rosas CNP My Medical Team Members: Treatment Team: Attending Provider: Av Coronado DO Consulting: Rigo Bradford MD Attending: PATRICIA PENN MY CONDITION AT DISCHARGE: Improved REASON I WAS IN THE HOSPITAL: Disequilibrium SUMMARY OF WHAT HAPPENED WHILE I WAS IN THE HOSPITAL: Patient was admitted for Disequilibrium. 59 y/o male with PMHx of CAD, arthritis, HTN, HLD who presented for evaluation of progressive lethargy, weakness, dizziness and disequilibrium. Patient underwent negative non contrast MRI at [facility] to rule out stroke. He was being treated with valium, meclizine and scopolamine patch for his symptoms between his ENT and PCP. He was evaluated by neurology this admission and recommended MRI brain with and without contrast and LP, serum paraneoplastic panel and myasthenia gravis labs sent. MRI brain was only significant for chronic microvascular ischemic changes. LP done today did have elevated protein, paraneoplastic CSF panel is pending. PT evaluated patient and does have vestibular hypofunction. OT did MOCA score that was 20/30 significant for mild cognitive impairment. Patient is currently medically stable to discharge home with outpatient vestibular/PT and occupational therapy. He will need follow up with outpatient Neurology to follow up final testing. OTHER PROBLEMS/DIAGNOSIS: Principal Problem: Dizziness Resolved Problems: * No resolved hospital problems. * OPERATIONS PERFORMED WHILE IN THE HOSPITAL: None IMPORTANT TEST/PROCEDURES: MRI Lumbar Puncture TEST RESULTS NOT AVAILABLE AT THIS TIME: No pending results Discharge Disposition Home/Self Care Activity When You Leave the Hospital Activity Resume pre-hospital activity Diet Instructions Diet Resume pre-hospital diet For Pain When You Leave the Hospital Pain Control No pain medication instructions Wound/Surgical Site Care Wound/Surgical Site care No wounds Return to Work Return to Work Per discussion with your work. Patient currently submitting [place] paperwork Call Your Doctor If Call your Doctor For follow up with PCP, Neurology, outpatient therapies Follow Up Appointments Follow-up Appointment When: In 1 week Patient/Parents to call for appointment?: Yes Jess Rosas, CHRISTINA [phone] [facility] [address] PCP Requested Referral Additional Provider to Provider Information: 59 y/o male with PMHx of CAD, arthritis, HTN, HLD who presented for evaluation of progressive lethargy, weakness, dizziness and disequilibrium. Patient underwent negative non contrast MRI at [facility] to rule out stroke. He was being treated with valium, meclizine and scopolamine patch for his symptoms between his ENT and PCP. He was evaluated by neurology this admission and recommended MRI brain with and without contrast and LP, serum paraneoplastic panel and myasthenia gravis labs sent. MRI brain was only significant for chronic microvascular ischemic changes. LP done today did have elevated protein, paraneoplastic CSF panel is pending. PT evaluated patient and does have vestibular hypofunction. OT did MOCA score that was 20/30 significant for mild cognitive impairment. Patient is currently medically stable to discharge home with outpatient vestibular/PT and occupational therapy. He will need follow up with outpatient Neurology to follow up final testing. Treatment Team: Attending Provider: Av Coronado DO Consulting: Rigo Bradford MD Attending: PATRICIA PENN Transitions of Care Critical Issues: NEW BASELINE FOR PATIENT: Follow up with Neurology and PCP LABS AND PROCEDURES PENDING AT DISCHARGE: No pending results. FOLLOW-UP APPOINTMENTS ALREADY SCHEDULED WITH A [facility] PROVIDER: No future appointments. ALLERGIES Allergen Reactions Oxycotin [Oxycodone] Rash Prednisone Intolerance flushing of skin-steriods DISCHARGE MEDICATION: Medication List CONTINUE taking these medications aspirin 81 mg chewable tablet Take 1 tablet by mouth once daily. cyclobenzaprine (more content not included)... Normal [facility] Ceruloplasmin SerPl-mCncon 0 06-13-2024 Ceruloplasmin [Mass/Vol] 24 mg/dL Normal 15-30 [facility] Comment on above: Order Comment: Speci men Type: BLOOD SPECIMENOrdering Facility: [facility] Address: [address] [place] [address] Performed By: #### 2 064-4 ####[facility] LABCL[facility] [id number] [address] OF [place] THERAPY NTon 06-13-2024 THERAPY NT HNO ID: [id number] Author: KEY NEGRETE, PT Service: Physical Therapy Author Type: Physical Therapist Type: Therapy (PT/OT/Speech/Resp) Filed: 06/13/2024 13:11 Note Text: Physical Therapy Treatment Summary SERVICE DATE: 06/13/2024 SERVICE TIME: 1120 to 1155 ROOM: [place] [address] PT 6 Clicks Score: 20 DISCHARGE RECOMMENDATIONS Outpatient PT Anticipated Discharge Needs: Physical Assist at Home Physical Assist at Home for: Cleaning, Laundry, Meals, Shopping, Transportation Recommended Discharge Equipment: Wheeled Walker ASSESSMENT Response to Therapy Interventions: Good Participation in Activities, Cognitive Deficits Patient moving a little better today. Remains on track for outpatient PT at discharge. PRECAUTIONS Fall Risk CURRENT HOSPITAL COURSE Patient presents with evaluation of progressive lethargy, weakness, dizziness, disequilbirum. Apryl MRI neg. LP pending. neuro stating cerebellar ataxia. 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; no assistive devices used for ambulation, has used a cane over the last couple of weeks due to dizziness, unsteady gait SUBJECTIVE Agreeable to PT THERAPY DIAGNOSIS Reduced mobility-other, Muscle Weakness (generalized), Unsteadiness on feet TREATMENT INTERVENTIONS Therapeutic Activity (45667), Neuromuscular Reeducation (07996) Therapeutic Activity (20927) Treatment Minutes: 20 $ Therapeutic Activity (28967) Billed Units: 1 unit See grid for functional mobility facilitated and education provided Neuromuscular Reeducation (42895) Treatment Minutes: 15 $ Neuromuscular Reeducation (16210) Billed Units: 1 unit Educated patient on vestibular anatomy, findings of evaluation, and treatment options to aid in symptom management/improvemen t Instruction on fall prevention - utilizing night lights, removing throw rugs, increasing time between postural changes, taking steps one at a time, avoiding quick head turns during functional mobility Educated on and performed x1 viewing with focus on a quick head turn and defined stop after each head motion. The patient performed the exercises and was educated on proper technique. Educated on the progression of sitting to standing and narrowing [place]. Advised patient that these exercises can have an additive effect so only to start with 1 minute per session. Performed vertical and horizontal head turns. Educated not to perform this just before leaving the house, walking or going to take a shower to reduce the risk of falling. Discussed with patient the duration and frequency at home, to perform 5 times per day and to start with 1 minute of each (vertical and horizontal) then work up to 2 minutes, once that is easy progress to standing then as each parameter of stance becomes easy to progress to the next. Patient declined Bere Hallpike testing, stating he just got tested at his ENT and it did not help Timed Code Treatment (minutes): 35 Skilled Treatment Time (minutes): 35 TRAINING AND EDUCATION PROVIDED Anatomy and Impact on Deficits, Assistive Device Use, Bed Mobility, Benefits of In-Hospital Mobility, Role of Physical Therapy, Disease Specific Education, Expected Functional Level, Falls Prevention, Gait Pattern, Reduction of Deviations, Home Safety THERAPEUTIC SKILLS USED Cues for Sequencing/Proper Technique for Activity, Cuing Tactile, Cuing Verbal, Movement Facilitation FUNCTIONAL STATUS Bed Mobility Supine To Sit: Stand By Assistance Sit to Supine: Stand By Assistance Transfers Sit To Stand: Stand By Assistance Stood x several trials from various heights Stand To Sit: Stand By Assistance Bed to Chair Gait Contact Guard Assistance Occasionally holding onto rail due to unsteady gait. Difficulty with walking with head turns Right and Left and vertical head turns Gait Device: Cane General Deviations/Observatio ns: Ataxic gait, Radha decreased, Difficulty changing direction/turning, Non-functional gait speed, Step length decreased, Trunk Control Decreased Gait Distance (feet): 50 x 4 Stairs GOALS Able to Perform HEP with: Independent Transfer Supine to/from Sit with: Independent Transfer Sit to/from Stand with: Independent Ambulate with: Independent Distance: 40 feet intervals Device: Wheeled Walker Ambulate Up and Down Steps with: Independent Number of Steps: 4 Device: Rail Rehab Potential: Good Progress Toward Go (more content not included)... Normal [facility] THERAPY NT HNO ID: [id number] Author: ANA GARCIA OTR/L Service: Occupational Therapy Author Type: Occupational Therapist Type: Therapy (PT/OT/Speech/Resp) Filed: 06/13/2024 09:49 Note Text: Occupational Therapy Evaluation Summary SERVICE DATE: 06/13/2024 SERVICE TIME: 841 to 926 ROOM: [place] [address] OT 6 Clicks Score: 22 DISCHARGE RECOMMENDATIONS Outpatient OT Recommended Discharge Disposition Comments: Anticipate pt will be safe to discharge home but would benefit from outpatient OT to address cognitive deficits as they relate to IND IADL management and return to work/driving. Anticipated Discharge Needs: Physical Assist at Home Physical Assist at Home for: Cleaning, Laundry, Meals, Shopping, Transportation Recommended Discharge Equipment: Wheeled Walker ASSESSMENT Response to Therapy Interventions: Good Participation in Activities, Cognitive Deficits Pt participated well in session. MoCA completed. Pt presenting with mild cognitive deficits as outlined below. Pt also demonstrating balance deficits impacting safety - discussed use of WW and shower chair for increased safety at home. Pt to benefit from continued OT to address cognitive deficits as well as to address fall prevention strategies and general strength, balance, and endurance for increased safety/IND with mobility and self-care. PRECAUTIONS Fall Risk CURRENT HOSPITAL COURSE Patient presents with evaluation of progressive lethargy, weakness, dizziness, disequilbirum. Apryl MRI neg. LP pending. neuro stating cerebellar ataxia. 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 COGNITION Responsiveness: Alert, Awake Follows Commands: 2-step Commands, With Repetition Attention Deficits: Distractible, Redirected with Cues Memory Deficits: Short Term Executive Function Deficits: Sequencing, Problem Solving Facilitated completion of the Cornelio Cognitive Assessment (MOCA), which is a rapid screening instrument for mild cognitive dysfunction. Results are as follows: Version 8.1 Total Score: 20/30 Visuospatial/Executiv e Alternating [place] Makin Visuoconstructional Skills (Shape): 0 Visuoconstructional Skills (Clock): 2 Visuospatial/Executiv e Score: 2/5 Naming The patient was able to name: Naming Score 2 /3 Memory Trials Memory Trial (1): The patient was correctly able to register 5/5 Memory Trial (2): The patient was correctly able to register 5/5 Attention Forward Digit Span: 1 Backward Digit Span: 1 Vigilance: 1 Attention- Serial 7's: 3 Attention Score: 6/6 Language Sentence Repetition (1): 0 Sentence Repetition (2): 0 Verbal Fluency: 0 Language Score: 0/3 Abstraction Abstraction (1): 1 Abstraction (2): 1 Abstraction Score: 2/2 Delayed Recall Word 1: 0 Word 2: 1 Word 3: 0 Word 4: 1 Word 5: 0 Delayed Recall Score: 2/5 Orientation The patient was able to answer correctly: exact date, month, year, exact place, city. Orientation Score 6 /6 Points For Educational Level: 0 MoCA Total Score (out of 30) 20 /30 Patient demonstrates max in visuospatial / executive functioning, mod-max deficits in memory, min deficits in attention and concentration, mod deficits in language, no deficits in abstraction/conceptua l thinking, and no deficits in orientation. The total possible score is 30 points; a score of 26 or above is considered normal (no cognitive impairment). The MoCA was administered by an Officially Certified Occupational Therapist. THERAPY DIAGNOSIS Reduced mobility-other, Decreased activities of daily living (ADL), Muscle Weakness (generalized), Signs and Symptoms Involving Cognitive Functions and Awareness, Ataxic gait, Abnormalities of gait and mobility-other TREATMENT INTERVENTIONS Evaluation, Self [facility] Management (99697), Cognitive Training (68963 and 15710) Timed Code Treatment (minutes): 30 Skilled Treatment Time (minutes): 45 $ Evaluation - Moderate (03605) Billed Units: 1 unit Lindsay (more content not included)... Normal [facility] BRIEF OP NOTon 06-12-2024 BRIEF OP NOT HNO ID: [id number] Author: HIGINIO LEONE APRN.CNP Service: Interventional Radiology Author Type: Nurse Practitioner Type: Brief Op Note Filed: 06/12/2024 11:47 Note Text: LUMBAR PUNCTURE BRIEF OPERATIVE / PROCEDURE NOTE LOG ID: [id number] SURGERY/PROCEDURE DATE: 06/12/24 Incision/Procedure Start Time: 11:37 AM Incision Close/Procedure End Time: 11:44 AM PROCEDURALIST(S) AND JOB COACH(S): Surgeon(s) and Role: Higinio Leone APRN.CNP SURGERY/PROCEDURE(S): Fluoroscopy guided diagnostic lumbar puncture with local anesthetic ANESTHESIA: Local FINDINGS: L4/5 midline, OP <9, 16 ml clear CSF in 4 tubes ESTIMATED BLOOD LOSS: 0 ml SPECIMENS: 16 ml . Specimen obtained, labeled and verified with [facility] [facility] Vat Worker (RT); RT verbalized specimen sent to lab. COMPLICATIONS: None CLOSURE TECHNIQUE: N/A PRE-OP/PRE-PROCEDURE DIAGNOSIS: cerebellar ataxia POST-OP/POST-PROCEDUR E DIAGNOSIS: Same as Preop SIGNATURE: Higinio Leone APRN.WAREDRESSER PATIENT NAME: Hayden Pendleton DATE: 06/12/24 TIME: 11:46 AM Normal [facility] Bacteria CSF Culton 06-13-19 25 Bacteria identified Cx Nom (CSF) CULTURE, CSF: No growth 5 days GRAM STAIN: No organisms seen No Polymorphonuclear Leukocytes Few Mononuclear cells Gram stain performed on cytospun specimen. Normal [facility] Comment on above: Performed By: #### 6 06-4 ####[facility] LABORATORYCLIA [id number] [address] [place] CONSULT PROGon 06-12-2024 CONSULT PROG HNO ID: [id number] Author: RAJESH MAK APRN.CHRISTINA Service: Neurology General Author Type: Nurse Practitioner Type: Consult Progress Note Filed: 06/12/2024 15:29 Note Text: NEUROLOGY CONSULT PROGRESS NOTE SERVICE DATE: 06/12/2024 SERVICE TIME: 3:00 PM Current Attending Provider: Av Coronado DO Subjective Interval History: Today, Hayden is resting in bed with at bedside. He reports gait instability, nausea, and issues with equilibrium are still present and seem to get worse as the day goes on. Currently denies symptoms but are provoked with movement. Denies muscle weakness, sensation loss, or vision changes. Discussed MRI brain results and pending CSF studies. Answered questions to patient satisfaction without further questions at this time. Objective Physical Examination: Neurological: Mental Status: He is oriented to person, place and time. He does follow commands. Cranial Nerves: CNII: Visual acuity normal, Visual richardson full to confrontation CNIII, IV, : Pupils equal, round and reactive to light, full extraoccular movements without nystagmus CN V: Facial sensation intact bilaterally to fine touch and pinprick CN VII: Facial muscles symmetric and strong, No noted facial droop CN VIII: Hears finger rub well bilaterally CN IX: Gag Reflex Not Examined CN X: Cough intact CN XI: Full strength shoulder shrug bilaterally CN XII: Tongue protrusion full and midline Motor Exam: Muscle Tone: Normal Strength today BUE 5/5 BLE 5/5 Sensation: Intact to proprioception, light touch, and pin prick. Coordination: Finger-to- nose-finger intact bilaterally and Fofn-kg-yjoi intact bilaterally. New Labs: WBC (k/uL) Date Value 06/09/2024 7.05 RBC (m/uL) Date Value 06/09/2024 5.30 Platelet Count (k/uL) Date Value 06/09/2024 241 BUN (mg/dL) Date Value 06/09/2024 14 Creatinine (mg/dL) Date Value 06/09/2024 1.14 CBC, Coags, BMP, Mg, Phos No results found for: INR No results found for: APTT Sodium (mmol/L) Date Value 06/09/2024 139 Potassium (mmol/L) Date Value 06/09/2024 4.1 Chloride (mmol/L) Date Value 06/09/2024 103 CO2 (mmol/L) Date Value 06/09/2024 25 Glucose (mg/dL) Date Value 06/09/2024 108 No results found for: ICA Calcium, Total (mg/dL) Date Value 06/09/2024 9.8 Magnesium (mg/dL) Date Value 06/09/2024 2.1 No results found for: P Liver Function, Amylase, AND Lipase Protein, Total (g/dL) Date Value 06/09/2024 7.2 Albumin (g/dL) Date Value 06/09/2024 4.0 ALT (U/L) Date Value 06/09/2024 27 AST (U/L) Date Value 06/09/2024 19 Alkaline Phosphatase (U/L) Date Value 06/09/2024 80 Bilirubin, Total (mg/dL) Date Value 06/09/2024 0.2 No results found for: AMYLASE No results found for: LIPASE No results found for: LACTATE DATA: Diagnostic tests reviewed for today's visit: Most recent labs and imaging results. Impression/Recommenda tions This is Hayden Pendleton, a 59 year old male has a neurological examination that is significant for poor balance, truncal and appendicular ataxia. His presentation is suggestive of cerebellar ataxia. Possible underlying etiologies include autoimmune disorders versus paraneoplastic disorders. Stroke ruled out with negative MRI brain imaging. Paraneoplastic panel (anti-Yo and anti-Hu can present with ataxia) pending. CTA H/N 06/09 - Bilateral proximal cervical ICA stenosis 10% on the right and 40% on the left. - No other significant stenosis. No major vessel occlusion MRI brain 06/11 - No acute intracranial process. No significant volume loss in the cerebellar hemispheres by qualitative inspection. No intracranial mass or abnormal intracranial enhancement. Chronic changes as described # Cerebellar Ataxia # Gait disturbance # Neck/Back pain Etiology: Unclear. Suspect autoimmune disorder versus paraneoplastic syndrome - MRI brain without acute process - Patient had similar events many years ago around time of cardiac surgery and it self aborted - CSF paraneoplastic panel pending - c/w PT/OT - Recommend continued follow up with outpatient Rheumatology. Previously established at [facility] - Continued outpatient follow up with ENT. Already established - Consider follow up with movement disorder clinic - Recommend establishment with Neurology movement disorder clinic - Please call/page with questions Part of my note may have been copied from previous documentation. It has been reviewed and is accurate. SIGNATURE: Rajesh Mak APRN.CHRISTINA PATIENT NAME: Hayden Pendleton DATE: June 12, 2024 TIME: 3:05 PM 1149 Normal [facility] CSF MANUAL DIFFon 06-12-2024 DIF TTL, CSF 100 cells counted Normal [facility] Comment on above: Order Comment: Speci men Type: CEREBROSPINAL FLUID SPECIMENOrdering Facility: [facility] Address: [address] [place] [address] Performed By: #### L [id number], 14729-0 ####[facility] LABORATORYCLIA [id number] [place] [address] [place] LYMPH%, CSF 68 % Normal 50-90 [facility] Comment on above: Order Comment: Speci men Type: CEREBROSPINAL FLUID SPECIMENOrdering Facility: [facility] Address: [address] [place] [address] Performed By: #### L [id number], 08891-8 ####[facility]ORATORYCLIA [id number] [place] [address] [place] MACRO%, CSF 2 % High <1 [facility] Comment on above: Order Comment: Speci men Type: CEREBROSPINAL FLUID SPECIMENOrdering Facility: [facility] Address: [address] [place] [address] Performed By: #### L [id number], 83621-4 ####[facility]ORATORYCLIA [id number] [place] [address] [place] MONO%, CSF 29 % Normal 10-50 [facility] Comment on above: Order Comment: Speci men Type: CEREBROSPINAL FLUID SPECIMENOrdering Facility: [facility] Address: [address] [place] [address] Performed By: #### L [id number], 29365-8 ####[facility]ORATORYCLIA [id number] [address] STATES [place] NEUT%, CSF 1 % Normal 0-3 [facility] Comment on above: Order Comment: Speci men Type: CEREBROSPINAL FLUID SPECIMENOrdering Facility: [facility] Address: [address] [place] [address] Performed By: #### L [id number], 25374-9 ####[facility]ORATORYCLIA [id number] [address] Cell count panel (CSF)on Clarity (CSF) Clear Normal Clear [facility] Comment on above: Order Comment: Speci men Type: CEREBROSPINAL FLUID SPECIMENOrdering Facility: [facility] Address: [address] [place] [address] Performed By: #### L [id number], 48347-5 ####[facility]ORATORYCLIA [id number] [address] Clarity (Unsp spec) Not Indicated Normal Clear [facility] Comment on above: Order Comment: Speci men Type: CEREBROSPINAL FLUID SPECIMENOrdering Facility: [facility] Address: [address] [place] [address] Performed By: #### L [id number], 89208-5 ####[facility]ORATORYCLIA [id number] [address] Color (CSF) Colorless Normal Colorless [facility] Comment on above: Order Comment: Speci men Type: CEREBROSPINAL FLUID SPECIMENOrdering Facility: [facility] Address: [address] [place] [address] Performed By: #### L [id number], 31767-2 ####[facility]ORATORYCLIA [id number] [address] Color (Spun CSF) Not Indicated Normal Colorless [facility] Comment on above: Order Comment: Speci men Type: CEREBROSPINAL FLUID SPECIMENOrdering Facility: [facility] Address: [address] [place] [address] Performed By: #### L [id number], 32972-7 ####[facility]ORATORYCLIA [id number] [address] CSF TUBE NUMBER Tube 4 Normal [facility] Comment on above: Order Comment: Speci men Type: CEREBROSPINAL FLUID SPECIMENOrdering Facility: [facility] Address: [address] [place] [address] Performed By: #### L [id number], 24129-8 ####[facility]ORATORYCLIA [id number] [address] STATES OF [facility] RBC Manual cnt (CSF) [#/Vol] 0 cells/uL Normal 0-5 [facility] Comment on above: Order Comment: Speci men Type: CEREBROSPINAL FLUID SPECIMENOrdering Facility: [facility] Address: [address] [place] [address] Performed By: #### L [id number], 25911-4 ####[facility]ORATORYCLIA [id number] [address] [place] WBC Manual cnt (CSF) [#/Vol] 2 cells/uL Normal 0-5 [facility] Comment on above: Order Comment: Zeyad jaswinder Type: CEREBROSPINAL FLUID SPECIMENOrdering Facility: [facility] Address: [address] [place] [address] Performed By: #### L [id number], 56968-6 ####[facility] LABORATORYCLIA [id number] [place] [address] [place] Glucose CSF-mCncon Glucose (CSF) [Mass/Vol] 76 mg/dL High 40-70 [facility] Comment on above: Order Comment: Specchantel jaswinder Type: CEREBROSPINAL FLUID SPECIMENOrdering Facility: [facility] Address: [address] [place] [address] Result Comment: Lumb ar CSF glucose values of healthy patients are approximately 60% of the plasma values and must always be compared with a concurrently measured plasma value for adequate clinical interpretation. References: 1. Glucose HK (GLUC3) [package insert V 12.0 Lao]. [employer], [place], [place]. June 2015. 2. Kristy Connell, José HGonzález (2015). Chapter 7: Glucose and Lactate. Rock Casas al.(eds.), Cerebrospinal Fluid in Clinical Neurology. Barron: [employer]. Performed By: #### 2 342-4, 2880-3 ####[facility] LABORATORYCLIA [id number] [address] [place] PARANEOPLASTIC AUTOAB, CSFon 06-12-2024 AMPHIPHYSIN AB, CSF Negative Normal Negative [facility] Comment on above: Order Comment: Zeyad san Type: CEREBROSPINAL FLUID SPECIMENOrdering Facility: [facility] Address: [address] [place] [address] Result Comment: ADDITIONAL INFORMATION This test was developed and its performance characteristics determined by [facility] in a manner consistent with CLIA requirements. This test has not been cleared or approved by the U.S. Food and Drug Administration. Performed By: #### P ARCSF ####[facility] LABCLIA [id number] [place] [address] ANTI-GLIAL NUCLEAR AB TYPE 1, CSF Negative Normal Negative [facility] Comment on above: Order Comment: Zeyad san Type: CEREBROSPINAL FLUID SPECIMENOrdering Facility: [facility] Address: [address] [place] [address] Result Comment: ADDITIONAL INFORMATION This test was developed and its performance characteristics determined by [facility] in a manner consistent with CLIA requirements. This test has not been cleared or approved by the U.S. Food and Drug Administration. Performed By: #### P SHERITASF ####[facility] LABCLIA [id number] [place] [address] ANTI-NEURONAL AB TYPE 1, CSF Negative Normal Negative [facility] Comment on above: Order Comment: [facility] Type: CEREBROSPINAL FLUID SPECIMENOrdering Facility: [facility] Address: [address] [place] [address] Result Comment: ADDITIONAL INFORMATION This test was developed and its performance characteristics determined by [facility] in a manner consistent with CLIA requirements. This test has not been cleared or approved by the U.S. Food and Drug Administration. Performed By: #### P SHERITASF ####[facility] LABCLIA [id number] [place] [address] ANTI-NEURONAL AB TYPE 2, CSF Negative Normal Negative [facility] Comment on above: Order Comment: [facility] Type: CEREBROSPINAL FLUID SPECIMENOrdering Facility: [facility] Address: [address] [place] [address] Result Comment: ADDITIONAL INFORMATION This test was developed and its performance characteristics determined by [facility] in a manner consistent with CLIA requirements. This test has not been cleared or approved by the U.S. Food and Drug Administration. Performed By: #### P ARCSF ####[facility] LABCLIA [id number] [place] [address] ANTI-NEURONAL AB TYPE 3, CSF Negative Normal Negative [facility] Comment on above: Order Comment: Zeyad san Type: CEREBROSPINAL FLUID SPECIMENOrdering Facility: [facility] Address: [address] [place] [address] Result Comment: ADDITIONAL INFORMATION This test was developed and its performance characteristics determined by [facility] in a manner consistent with CLIA requirements. This test has not been cleared or approved by the U.S. Food and Drug Administration. Performed By: #### P ARCSF ####[facility] LABCLIA [id number] [place] [address] CRMP-5 IGG, CSF Negative Normal Negative [facility] Comment on above: Order Comment: Zeyad san Type: CEREBROSPINAL FLUID SPECIMENOrdering Facility: [facility] Address: [address] [place] [address] Result Comment: ADDITIONAL INFORMATION This test was developed and its performance characteristics determined by [facility] in a manner consistent with CLIA requirements. This test has not been cleared or approved by the U.S. Food and Drug Administration. Performed By: #### P SHERITASF ####[facility] LABCLIA [id number] [place] [address] IFA NOTES None. Normal [facility] Comment on above: Order Comment: [facility] Type: CEREBROSPINAL FLUID SPECIMENOrdering Facility: [facility] Address: [address] [place] [address] Performed By: #### P SHERITASF ####[facility] LABCLIA [id number] [place] [address] PARANEOPLASTIC INTERP, CSF SEE NOTE Normal [facility] Comment on above: Order Comment: Specchantel jaswinder Type: CEREBROSPINAL FLUID SPECIMENOrdering Facility: [facility] Address: [address] [place] [address] Result Comment: A ne gative basic paraneoplastic evaluation result does not rule out all clinically relevant antibodies. If indicated, a comprehensive neurological phenotype-specific autoimmune/paraneoplastic evaluation (e.g. encephalopathy, movement disorders, myelopathy, or axonal neuropathy) should be considered [email or web address] These evaluations include screening cell-based assays optimized for detection of recently discovered antibodies. Performed By: #### P ARCSF ####[facility] LABCLIA [id number] [place] [address] PURKINJE CELL CYTO AB TYPE 1, CSF Negative Normal Negative [facility] Comment on above: Order Comment: Zeyad san Type: CEREBROSPINAL FLUID SPECIMENOrdering Facility: [facility] Address: [address] [place] [address] Result Comment: ADDITIONAL INFORMATION This test was developed and its performance characteristics determined by [facility] in a manner consistent with CLIA requirements. This test has not been cleared or approved by the U.S. Food and Drug Administration. Performed By: #### P ARCSF ####[facility] LABCLIA [id number] [place] [address] PURKINJE CELL CYTO AB TYPE 2, CSF Negative Normal Negative [facility] Comment on above: Order Comment: Zeyad san Type: CEREBROSPINAL FLUID SPECIMENOrdering Facility: [facility] Address: [address] [place] [address] Result Comment: ADDITIONAL INFORMATION This test was developed and its performance characteristics determined by [facility] in a manner consistent with CLIA requirements. This test has not been cleared or approved by the U.S. Food and Drug Administration. Test Performed by: [place] [id number] [place] Estimator: Lilli Fernandez Ph.D.; CLIA# [id number] Performed By: #### P ARCSF ####[facility] LABCLIA [id number] [place] [address] PURKINJE CELL CYTO AB TYPE TR, CSF Negative Normal Negative [facility] Comment on above: Order Comment: Speci men Type: CEREBROSPINAL FLUID SPECIMENOrdering Facility: [facility] Address: [address] [place] [address] Result Comment: ADDITIONAL INFORMATION This test was developed and its performance characteristics determined by [facility] in a manner consistent with CLIA requirements. This test has not been cleared or approved by the U.S. Food and Drug Administration. Performed By: #### P ARCSF ####[facility] LABCLIA [id number] [place] [id number] Prot CSF-mCncon 06-12-2024 Protein (CSF) [Mass/Vol] 81 mg/dL High 15-45 [facility] Comment on above: Order Comment: Speci men Type: CEREBROSPINAL FLUID SPECIMENOrdering Facility: [facility] Address: [address] [place] [address] Performed By: #### 2 342-4, 2880-3 ####[facility] LABORATORYCLIA [id number] [place] [address] [facility] THERAPY NTon 06-12-2024 THERAPY NT HNO ID: [id number] Author: KEY NEGRETE, PT Service: Physical Therapy Author Type: Physical Therapist Type: Therapy (PT/OT/Speech/Resp) Filed: 06/12/2024 16:24 Note Text: Physical Therapy Evaluation Summary SERVICE DATE: 06/12/2024 SERVICE TIME: 1514 to 1604 ROOM: [place] [address] PT 6 Clicks Score: 20 DISCHARGE RECOMMENDATIONS Outpatient PT Recommended Discharge Equipment: Wheeled Walker ASSESSMENT Response to Therapy Interventions: Good Participation in Activities, Cognitive Deficits Vestibular assessment completed. Austin Hallpike deferred due to LP. Patient with unsteady gait, positive head thrust indicating peripheral vestibular hypofunction. Patient would benefit from wheeled walker at discharge and continued outpatient PT for vestibular rehab. PRECAUTIONS Bed/Chair Alarm, Fall Risk CURRENT HOSPITAL COURSE Patient presents with evaluationof progressive lethargy, weakness, dizziness, disequilbirum. Apryl MRI neg. LP pending. 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; no assistive devices used for ambulation, has used a cane over the last couple of weeks due to dizziness, unsteady gait SUBJECTIVE Agreeable to PT THERAPY DIAGNOSIS Reduced mobility-other, Muscle Weakness (generalized), Unsteadiness on feet TREATMENT INTERVENTIONS Evaluation, Therapeutic Activity (37555) $ Evaluation-High (96709) Billed Units: 1 unit Therapeutic Activity (93047) Treatment Minutes: 9 $ Therapeutic Activity (51765) Billed Units: 1 unit Educated patient on vestibular anatomy, findings of evaluation, and treatment options to aid in symptom management/improvemen t Timed Code Treatment (minutes): 9 Skilled Treatment Time (minutes): 50 TRAINING AND EDUCATION PROVIDED Anatomy and Impact on Deficits, Assistive Device Use, Bed Mobility, Benefits of In-Hospital Mobility, Role of Physical Therapy, Disease Specific Education, Expected Functional Level, Falls Prevention, Gait Pattern, Reduction of Deviations, Home Safety THERAPEUTIC SKILLS USED Cues for Sequencing/Proper Technique for Activity, Cuing Tactile, Cuing Verbal, Movement Facilitation FUNCTIONAL STATUS Bed Mobility Supine To Sit: Stand By Assistance Sit to Supine: Stand By Assistance Transfers Sit To Stand: Contact Guard Assistance Stand To Sit: Contact Guard Assistance Bed to Chair Gait Contact Guard Assistance Gait Device: Cane General Deviations/Observatio ns: Ataxic gait, Radha decreased, Difficulty changing direction/turning, Non-functional gait speed, Step length decreased, Trunk Control Decreased Gait Distance (feet): 12 x 2 Stairs Range of Motion: WFL Strength: WFL GOALS Able to Perform HEP with: Independent Transfer Supine to/from Sit with: Independent Transfer Sit to/from Stand with: Independent Ambulate with: Independent Distance: 40 feet intervals Device: Wheeled Walker Ambulate Up and Down Steps with: Independent Number of Steps: 4 Device: Rail Rehab Potential: Good PLAN PT Frequency: 4 Times Per Week (2-4) Treatment Interventions: Education, Strengthening, Functional Mobility Training, Balance Training SIGNATURE: Key Negrete PT PATIENT NAME: Hayden Pendleton DATE: June 12, 2024 TIME: 4:20 PM [facility] THERAPY NT HNO ID: [id number] Author: ANA GARCIA OTR/L Service: Occupational Therapy Author Type: Occupational Therapist Type: Therapy (PT/OT/Speech/Resp) Filed: 06/12/2024 16:19 Note Text: OCCUPATIONAL THERAPY MISSED VISIT SERVICE DATE: 06/12/2024 SERVICE TIME: 1537 ROOM: [place] [address] Patient not seen due to Patient Not Available. Attempted to see pt at 1335 - nursing reported pt needed 2+hours bedrest following LP. Re-attempted to see pt at 1537 - pt with PT. Will continue to re-attempt as able. SIGNATURE: Ana Garcia OTR/L PATIENT NAME: Hayden Pendleton DATE: June 12, 2024 TIME: 4:18 PM [facility] XR LUMBAR PUNCTURE DIAGNOSTI Con 06-12-2024 XR LUMBAR PUNCTURE DIAGNOSTIC * * *Final Report* * * DATE OF EXAM: Jun 12 2024 11:50AM AKX [id number] - XR LUMBAR PUNCTURE DIAGNOSTIC / PROCEDURE REASON: evaluation of cerebellar ataxia * * * * Physician Interpretation * * * * EXAM TITLE: FLUOROSCOPY GUIDED LUMBAR PUNCTURE DATE: 06/12/2024 COMPARISON: None. CLINICAL INDICATION/HISTORY: Cerebellar ataxia Procedure Start Time and Sign In Time: 1137 Procedure End Time and Sign Out Time: 1144 TECHNIQUE: Under fluoroscopic guidance an appropriate skin entrance site was identified in the lumbar region and this area was prepped and anesthetized. A 20-gauge spinal needle was then directed into the spinal canal. Total fluoroscopy time was 0 minutes and 6 seconds. FINDINGS: The entrance site was at L4-5. CSF return was obtained with an opening pressure of <9 cm water. The fluid was clear. A total of 16 cc was collected. This was sent for laboratory evaluation. Closing pressure was <9 cm of water. IMPRESSION: Technically successful fluoroscopy guided lumbar puncture yielding 16 cc of fluid. Machine Coremaker: JACKI Transcribe Date/Time: Jun 12 2024 12:43P Dictated by : HIGINIO LEONE CNP This examination was interpreted and the report reviewed and electronically signed by: HIGINIO LEONE CNP on Jun 12 2024 12:46PM EST [id number] N Normal [facility] 25(OH)D3 SerPl-mCncon 2024 25-hydroxyvitamin D3 [Mass/Vol] 24.8 ng/mL Low >=30.0 [facility] Comment on above: Order Comment: Speci men Type: BLOOD SPECIMENOrdering Facility: [facility] Address: [address] [place] [address] Result Comment: Clas sification of 25 OH Vitamin D status: Deficiency: <= 20.0 ng/ml. Insufficiency: 21.0-29.0 ng/ml. Sufficiency: >= 30.0 ng/ml. Performed By: #### 1 989-3 ####[facility] LABORATORYCLIA [id number] [address] STATES OF [facility]ALTH[facility]-2024 ALLIED HEALTH HNO ID: [id number] Author: ANDREA GUILLAUME RT(Cy) Service: ? Author Type: Technologist Type: Allied Health Filed: 06/11/2024 08:34 Note Text: Radiology Service Progress Note DATE OF SERVICE: June 11, 2024 TIME: 8:21 AM PATIENT IDENTITY VERIFICATION COMPLETED USING TWO (2) STANDARD IDENTIFIERS: Name and Date of confirmed by patient verbally and Name and Date of confirmed by identification band. FALL SCREENING: Has the patient had 2 falls in the last year or 1 fall with injury or currently using an Ambulatory Assistive Device (Walker, Cane, Wheelchair, Crutches, etc.)? Inpatient: Screened on floor PATIENT GENDER DATA: Assigned male at PATIENT RELEVANT IMPLANT DATA REVIEWED: Yes PATIENT PRESENTS WITH AN IMPLANTABLE OR ATTACHED JOB DEVELOPER: No ALLERGIES: Reviewed and unchanged CONTRAST ALLERGY: NO. EXAM: MRI - CONTRAST TYPE: GROUP II PERIPHERAL IV DATA: Inpatient - refer to LDA documentation RADIOLOGY DEPARTMENT: MR; Exam(s) Completed: Head: Routine Brain SIGNATURE: RT Devan(R) PATIENT NAME: Hayden Pendleton DATE: June 11, 2024 TIME: 8:21 AM Normal [facility] CK SerPl-cCncon 06-11-2024 CK [Catalytic activity/Vol] 59 U/L Normal 51-298 [facility] Comment on above: Order Comment: Speci men Type: BLOOD SPECIMENOrdering Facility: [facility] Address: [address] [place] [address] Performed By: #### 2 157-6, 3016-3 ####[facility] LABORATORYCLIA [id number] [place] [id number] [facility] CONSULT PROGon 06-11-2024 CONSULT PROG HNO ID: [id number] Author: MAGY LECHUGA APRN.WAREDRESSER Service: Neurology General Author Type: Nurse Practitioner Type: Consult Progress Note Filed: 06/11/2024 07:45 Note Text: NEUROLOGY CONSULT PROGRESS NOTE SERVICE DATE: 06/11/2024 SERVICE TIME: 729 Current Attending Provider: Av Coronado DO Subjective Interval History: Patient resting. NAEON. Testing, diagnosis, medications reviewed with patient and . All questions answered to satisfaction. Hayden is not changed. Still with significant pain in his neck and back and still with vertigo. Aware of plan for Lp tomorrow. Going for MRI B soon. Objective Physical Examination: Neurological: Mental Status: Oriented to person, place and time. Does follow commands. Cranial Nerves: CNII: Visual acuity normal, Visual richardson full to confrontation, No APD noted on exam CNIII, IV, : Pupils equal, round and reactive to light, full extraoccular movements without nystagmus CN V: Facial sensation intact bilaterally to fine touch CN VII: Facial muscles symmetric and strong CN VIII: Hearing intact to voice CN IX: Gag Reflex Not Examined CN X: Cough intact CN XI: Full strength shoulder shrug bilaterally CN XII: Tongue protrusion full and midline Motor Exam: Muscle Tone: Normal Strength today in the bilateral extremities is 5/5 strength throughout Gait: cautious, unsteady using cane New Labs: WBC (k/uL) Date Value 06/09/2024 7.05 11/04/2023 6.96 11/01/2021 7.58 11/16/2020 8.42 10/12/2020 5.73 RBC (m/uL) Date Value 06/09/2024 5.30 11/04/2023 5.67 11/01/2021 5.38 11/16/2020 4.26 10/12/2020 5.34 Platelet Count (k/uL) Date Value 06/09/2024 241 11/04/2023 269 11/01/2021 291 11/16/2020 508 10/12/2020 302 BUN (mg/dL) Date Value 06/09/2024 14 11/04/2023 14 11/01/2021 20 10/12/2020 13 Creatinine (mg/dL) Date Value 06/09/2024 1.14 11/04/2023 1.06 11/01/2021 1.15 10/12/2020 1.03 CBC, Coags, BMP, Mg, Phos Recent Labs 06/09/24 0917 NA 139 K 4.1 CHLOR 103 CO2 25 GLUC 108* CA 9.8 MG 2.1 Liver Function, Amylase, AND Lipase Recent Labs 06/09/24 0917 TPROT 7.2 ALB 4.0 ALT 27 AST 19 ALKPHOS 80 TBILI 0.2 DATA: Diagnostic tests reviewed for today's visit: Most recent labs and imaging results. Impression/Recommenda tions This is Hayden Pendleton, a 59 year old male has a neurological examination that is significant for poor balance, truncal and appendicular ataxia. His presentation is suggestive of cerebellar ataxia. Possible underlying etiologies include autoimmune disorders, paraneoplastic disorders, and less likely stroke. We had a long discussion of all the workup going forward. First, we will start with updated imaging and then we will schedule him for a spinal tap for CSF analysis. In the meantime, we will obtain paraneoplastic panel (anti-Yo and anti-Hu can present with ataxia). CTA H/N 06/09 Bilateral proximal cervical ICA stenosis 10% on the right and 40% on the left. No other significant stenosis. No major vessel occlusion. Assessment: Cerebellar ataxia. Gait disturbance Vertigo Neck/back pain Vit D deficiency Plan: Check paraneoplastic panel. Unclear etiology of symptoms MRI brain with and without contrast. Try to obtain prior brain MRI and review. Lumbar puncture for CSF analysis on Wednesday. PT/OT/ST Supplement Vit D SIGNATURE: Magy Lechuga APRN.CNP PATIENT NAME: Hayden Pendleton DATE: June 11, 2024 TIME: 7:15 AM Discussed with: patient, I spent a total of 25 minutes on the date of the service which included preparing to see the patient, [id number] patient care, completing clinical documentation, obtaining and/or reviewing separately obtained history, performing a medically appropriate examination, counseling and educating the patient/family/caregi beck, communicating results to the patient/family/caregi beck, and care coordination. Normal [facility] MRI BRAIN WO/W IVCONon 06-11 MRI BRAIN WO/W IVCON * * *Final Report* * * DATE OF EXAM: Jun 11 2024 8:48AM [facility] 0295 - MRI BRAIN WO/W IVCON / PROCEDURE REASON: concern for cerebellar ataxia * * * * Physician Interpretation * * * * EXAMINATION: MRI BRAIN WO/W IVCON CLINICAL HISTORY: concern for cerebellar ataxia TECHNIQUE: Routine brain MRI protocol without and with contrast including diffusion images. MQ: [id number]_2 Contrast: 9 mL Elucirem IV COMPARISON: CT brain 06/09/2024 RESULT: Acute Change: There is no evidence of restricted diffusion to suggest an acute infarct. Hemorrhage: No evidence of prior parenchymal hemorrhage on the susceptibility weighted images. Mass Lesion/ Mass Effect: No evidence of an intracranial mass or extra-axial fluid collection. No abnormal parenchymal or leptomeningeal enhancement is noted following contrast administration. No significant mass effect. Chronic Change: Scattered patchy areas of increased T2 and FLAIR signal are present in the supratentorial white matter which is a nonspecific finding but likely represents mild chronic microvascular ischemia. Parenchyma: There is mild generalized parenchymal volume loss. The brain parenchyma is otherwise within normal limits of signal intensity and morphology. Ventricles: Ventriculomegaly corresponds to the degree of parenchymal volume loss. Skull Base: Hypothalamic and pituitary region are grossly normal. Craniocervical junction is normal. No significant marrow replacement process. Vasculature: Major intracranial arterial structures, and dural venous sinuses show typical flow void, suggesting patency by spin echo criteria. Other: The visualized paranasal sinuses and mastoid air cells are clear. The orbits and extracranial soft tissues are unremarkable. IMPRESSION: No acute intracranial process. No significant volume loss in the cerebellar hemispheres by qualitative inspection. No intracranial mass or abnormal intracranial enhancement. Chronic changes as described. Machine Coremaker: JACKI Transcribe Date/Time: Jun 11 2024 8:54A Dictated by : MERCEDES PAULINO MD This examination was interpreted and the report reviewed and electronically signed by: MERCEDES PAULINO MD on Jun 11 2024 8:57AM EST [id number] N Normal [facility] TSH SerPl-aCncon 06-11-2024 TSH Qn 3.910 m[IU]/L Normal 0.270-4.200 [facility] Comment on above: Order Comment: Specchantel san Type: BLOOD SPECIMENOrdering Facility: [facility] Address: [address] [place] [address] Performed By: #### 2 157-6, 3016-3 ####[facility] LABORATORYCLIA [id number] [place] [address] [place] ACETYLCHOLINE REC BINDING AB on 06-10-2024 ACETYLCHOLINE BINDING, QUAL Negative Normal Negative [facility] Comment on above: Order Comment: Zeyad san Type: BLOOD SPECIMENOrdering Facility: [facility] Address: [address] [place] [address] Result Comment: Anti -acetylcholine receptor binding antibody test is used as an aid in diagnosis of myasthenia gravis. A negative result cannot exclude myasthenia gravis. Clinical correlation is required. Performed By: #### A CHRAB ####[facility] LABCLIA [id number] [place] [address] [place] Acetylcholine receptor binding Ab (S) [Moles/Vol] <0.02 Normal <0.21 [facility] Comment on above: Order Comment: Zeyad san Type: BLOOD SPECIMENOrdering Facility: [facility] Address: [address] [place] [address] Performed By: #### A CHRAB ####[facility] LABCLIA [id number] [place] [address] [place] ACETYLCHOLINE REC BLOCKING A Bon 06-10-2024 ACETYLCHOLINE BLOCKING, QUAL Negative Normal Negative [facility] Comment on above: Order Comment: Zeyad jaswinder Type: BLOOD SPECIMENOrdering Facility: [facility] Address: [address] [place] [address] Result Comment: Anti -acetylcholine receptor blocking antibody test is used as an aid in diagnosis of myasthenia gravis. A negative result cannot exclude myasthenia gravis. Clinical correlation is required. Performed By: #### A CEBAB ####[facility] LABCLIA [id number] [address] Acetylcholine receptor blocking Ab/Acetylcholine Ab.total (S) [Molar fraction] <13 Normal <21 [facility] Comment on above: Order Comment: Zeyad san Type: BLOOD SPECIMENOrdering Facility: [facility] Address: [address] [place] [address] Performed By: #### A CEBAB ####[facility] LABCLIA [id number] [address] [place] MUSCLE-SPECIFIC KINASE (MUSK ) AUTOANTIBODY, SERUMon 06-10-2024 MUSK ANTIBODY 0.00 nmol/L Normal 0.00-0.02 [facility] Comment on above: Order Comment: Zeyad jaswinder Type: BLOOD SPECIMENOrdering Facility: [facility] Address: [address] [place] [address] Result Comment: ADDITIONAL INFORMATION This test was developed using an analyte specific reagent. Its performance characteristics were determined by [facility] in a manner consistent with CLIA requirements. This test has not been cleared or approved by the U.S. Food and Drug Administration. Test Performed by: [facility] - [address] [address] [place] Estimator: Lilli Fernandez Ph.D.; CLIA# [id number] Performed By: #### M USK ####[facility] LABCLIA [id number] [place] [address], [place] [address] MYELOPATHY, AUTOIMMUNE/PARAN EOPLASTIC EVALUATION, SERUMon 06-10-2024 AMPHIPHYSIN AB Negative Normal Negative [facility] Comment on above: Order Comment: Zeyad san Type: BLOOD SPECIMENOrdering Facility: [facility] Address: [address] [place] [address] Result Comment: ADDITIONAL INFORMATION This test was developed and its performance characteristics determined by [facility] in a manner consistent with CLIA requirements. This test has not been cleared or approved by the U.S. Food and Drug Administration. Performed By: ###Jose Alejandro Kincaid LPTHY ####[facility] LABCLIA [id number] [place] [address] ANTI-GLIAL NUCLEAR AB, TYPE 1 Negative Normal Negative [facility] Comment on above: Order Comment: Zeyad san Type: BLOOD SPECIMENOrdering Facility: [facility] Address: [address] [place] [address] Result Comment: ADDITIONAL INFORMATION This test was developed and its performance characteristics determined by [facility] in a manner consistent with CLIA requirements. This test has not been cleared or approved by the U.S. Food and Drug Administration. Performed By: #### Codi ROATHY ####[facility] LABCLIA [id number] [place] [address] ANTI-NEURONAL NUC AB, TYPE 1 Negative Normal Negative [facility] Comment on above: Order Comment: [facility]ad [facility] Type: BLOOD SPECIMENOrdering Facility: [facility] Address: [address] [place] [address] Result Comment: ADDITIONAL INFORMATION This test was developed and its performance characteristics determined by [facility] in a manner consistent with CLIA requirements. This test has not been cleared or approved by the U.S. Food and Drug Administration. Performed By: #### Codi ROATHY ####[facility] LABCLIA [id number] [place] [address] ANTI-NEURONAL NUC AB, TYPE 2 Negative Normal Negative [facility] Comment on above: Order Comment: Zeyad san Type: BLOOD SPECIMENOrdering Facility: [facility] Address: [address] [place] [address] Result Comment: ADDITIONAL INFORMATION This test was developed and its performance characteristics determined by [facility] in a manner consistent with CLIA requirements. This test has not been cleared or approved by the U.S. Food and Drug Administration. Performed By: #### Codi ROATHY ####[facility] LABCLIA [id number] [place] [address] ANTI-NEURONAL NUC AB, TYPE 3 Negative Normal Negative [facility] Comment on above: Order Comment: Zeyad san Type: BLOOD SPECIMENOrdering Facility: [facility] Address: [address] [place] [address] Result Comment: ADDITIONAL INFORMATION This test was developed and its performance characteristics determined by [facility] in a manner consistent with CLIA requirements. This test has not been cleared or approved by the U.S. Food and Drug Administration. Performed By: #### Codi ROATHY ####[facility] LABCLIA [id number] [place] [address] AP3B2 IFA, S Negative Normal Negative [facility] Comment on above: Order Comment: Zeyad san Type: BLOOD SPECIMENOrdering Facility: [facility] Address: [address] [place] [address] Result Comment: ADDITIONAL INFORMATION This test was developed and its performance characteristics determined by [facility] in a manner consistent with CLIA requirements. This test has not been cleared or approved by the U.S. Food and Drug Administration. Performed By: #### M JANINATHY ####[facility] LABCLIA [id number] [place] [address] AUTOIMMUNE MYELOPATHY INTERP, S SEE NOTE Normal [facility] Comment on above: Order Comment: Zeyad san Type: BLOOD SPECIMENOrdering Facility: [facility] Address: [address] [place] [address] Result Comment: No i nformative autoantibodies were detected in this evaluation. However, a negative result does not exclude autoimmune myelopathy, idiopathic or paraneoplastic. Sensitivity and specificity of antibody testing are enhanced by testing both serum and CSF. Performed By: #### M JANINATHY ####[facility] LABCLIA [id number] [place] [address] CRMP-5-IGG WESTERN BLOT, S ALSO USED BY TESTS: CRMWS Negative Normal Negative [facility] Comment on above: Order Comment: Zeyad san Type: BLOOD SPECIMENOrdering Facility: [facility] Address: [address] [place] [address] Result Comment: ADDITIONAL INFORMATION This test was developed and its performance characteristics determined by [facility] in a manner consistent with CLIA requirements. This test has not been cleared or approved by the U.S. Food and Drug Administration. Performed By: #### Codi ROATHY ####[facility] LABCLIA [id number] [place] [address] DPPX AB CBA, S Negative Normal Negative [facility] Comment on above: Order Comment: Zeyad san Type: BLOOD SPECIMENOrdering Facility: [facility] Address: [address] [place] [address] Result Comment: ADDITIONAL INFORMATION This test was developed and its performance characteristics determined by [facility] in a manner consistent with CLIA requirements. This test has not been cleared or approved by the U.S. Food and Drug Administration. Performed By: #### Codi LPTHY ####[facility] LABCLIA [id number] [place] [address] NELSON-B-R AB CBA, S Negative Normal Negative [facility] Comment on above: Order Comment: Zeyad san Type: BLOOD SPECIMENOrdering Facility: [facility] Address: [address] [place] [address] Result Comment: ADDITIONAL INFORMATION This test was developed and its performance characteristics determined by [facility] in a manner consistent with CLIA requirements. This test has not been cleared or approved by the U.S. Food and Drug Administration. Performed By: #### Codi ROATHY ####[facility] LABCLIA [id number] [place] [id number] ANTIBODY 0.00 nmol/L Normal <= 0.02 [facility] Comment on above: Order Comment: Zeyad san Type: BLOOD SPECIMENOrdering Facility: [facility] Address: [address] [place] [address] Result Comment: ADDITIONAL INFORMATION This test was developed and its performance characteristics determined by [facility] in a manner consistent with CLIA requirements. This test has not been cleared or approved by the U.S. Food and Drug Administration. Performed By: #### Codi LPTHY ####[facility] LABCLIA [id number] [place] [address] GFAP IFA, S Negative Normal Negative [facility] Comment on above: Order Comment: Zeyad san Type: BLOOD SPECIMENOrdering Facility: [facility] Address: [address] [place] [address] Result Comment: ADDITIONAL INFORMATION This test was developed and its performance characteristics determined by [facility] in a manner consistent with CLIA requirements. This test has not been cleared or approved by the U.S. Food and Drug Administration. Performed By: #### Codi ROATHY ####[facility] LABCLIA [id number] [place] [address] IFA NOTES (MLPTHY) None. Normal [facility] Comment on above: Order Comment: Zeyad san Type: BLOOD SPECIMENOrdering Facility: [facility] Address: [address] [place] [address] Performed By: #### Codi ROATHY ####[facility] LABCLIA [id number] [place] [address] MGLUR1 AB IFA, S Negative Normal Negative [facility] Comment on above: Order Comment: Zeyad san Type: BLOOD SPECIMENOrdering Facility: [facility] Address: [address] [place] [address] Result Comment: ADDITIONAL INFORMATION This test was developed and its performance characteristics determined by [facility] in a manner consistent with CLIA requirements. This test has not been cleared or approved by the U.S. Food and Drug Administration. Performed By: #### Codi ROATHY ####[facility] LABCLIA [id number] [place] [address] MYELIN OLIGODENDROCYTE GLYCOPROTEIN (MOG-IGG1) FLUORESCENCE-ACTIVATED CELL Negative Normal Negative [facility] Comment on above: Order Comment: Zeyad [facility] Type: BLOOD SPECIMENOrdering Facility: [facility] Address: [address] [place] [address] Result Comment: ADDITIONAL INFORMATION This test was developed and its performance characteristics determined by [facility] in a manner consistent with CLIA requirements. This test has not been cleared or approved by the U.S. Food and Drug Administration. Performed By: #### Codi ROATHY ####[facility] LABCLIA [id number] [place] [id number] NEUROCHONDRIN IFA , S Negative Normal Negative [facility] Comment on above: Order Comment: Zeyad jaswinder Type: BLOOD SPECIMENOrdering Facility: [facility] Address: [address] [place] [address] Result Comment: ADDITIONAL INFORMATION This test was developed and its performance characteristics determined by [facility] in a manner consistent with CLIA requirements. This test has not been cleared or approved by the U.S. Food and Drug Administration. Performed By: #### Codi ROATHY ####[facility] LABCLIA [id number] [place] [address] NIF IFA, S Negative Normal Negative [facility] Comment on above: Order Comment: [facility]ad [facility] Type: BLOOD SPECIMENOrdering Facility: [facility] Address: [address] [place] [address] Result Comment: ADDITIONAL INFORMATION This test was developed and its performance characteristics determined by [facility] in a manner consistent with CLIA requirements. This test has not been cleared or approved by the U.S. Food and Drug Administration. Performed By: #### Codi LPTHY ####[facility] LABCLIA [id number] [place] [address] NMO/AQPF FACS, S Negative Normal Negative [facility] Comment on above: Order Comment: [facility]ad [facility] Type: BLOOD SPECIMENOrdering Facility: [facility] Address: [address] [place] [address] Result Comment: ADDITIONAL INFORMATION This test was developed and its performance characteristics determined by [facility] in a manner consistent with CLIA requirements. This test has not been cleared or approved by the U.S. Food and Drug Administration. Performed By: #### Codi LPTHY ####[facility] REFERENCE LABCLIA [id number] [place] [address] PURKINJE CELL CYTO AB, TYPE 1 Negative Normal Negative [facility] Comment on above: Order Comment: Zeyad san Type: BLOOD SPECIMENOrdering Facility: [facility] Address: [address] [place] [address] Result Comment: ADDITIONAL INFORMATION This test was developed and its performance characteristics determined by [facility] in a manner consistent with CLIA requirements. This test has not been cleared or approved by the U.S. Food and Drug Administration. Performed By: #### Codi LEGGETT ####[facility] REFERENCE LABCLIA [id number] [place] [address] PURKINJE CELL CYTO AB, TYPE 2 Negative Normal Negative [facility] Comment on above: Order Comment: Zeyad san Type: BLOOD SPECIMENOrdering Facility: [facility] Address: [address] [place] [address] Result Comment: ADDITIONAL INFORMATION This test was developed and its performance characteristics determined by [facility] in a manner consistent with CLIA requirements. This test has not been cleared or approved by the U.S. Food and Drug Administration. Performed By: #### Codi LEGGETT ####[facility] REFERENCE LABCLIA [id number] [place] [id number] SEPTIN-7 IFA, S Negative Normal Negative [facility] Comment on above: Order Comment: Zeyad san Type: BLOOD SPECIMENOrdering Facility: [facility] Address: [address] [place] [address] Result Comment: ADDITIONAL INFORMATION This test was developed and its performance characteristics determined by [facility] in a manner consistent with CLIA requirements. This test has not been cleared or approved by the U.S. Food and Drug Administration. Performed By: #### M LPTHY ####[facility] REFERENCE LABCLIA [id number] [place] [address] TRIM46 AB IFA, S Negative Normal Negative [facility] Comment on above: Order Comment: Speci men Type: BLOOD SPECIMENOrdering Facility: [facility] Address: [facility] [address] Result Comment: ADDITIONAL INFORMATION This test was developed and its performance characteristics determined by [facility] in a manner consistent with CLIA requirements. This test has not been cleared or approved by the U.S. Food and Drug Administration. Test Performed by: [place] [id number] [place] Estimator: Lilli Fernandez Ph.D.; CLIA# [id number] Performed By: #### M LPTHY ####[facility] REFERENCE LABCLIA [id number] [place] [address] THERAPY NTon 06-10-2024 THERAPY NT HNO ID: [id number] Author: PETR DASILVA RRT Service: Respiratory Therapy Author Type: Registered Resp Therapist Type: Therapy (PT/OT/Speech/Resp) Filed: 06/10/2024 16:53 Note Text: 06/10/241650 Resp Assessment: Within Normal Limits (WNL): Rhythm Regular and Unlabored; No Cough or Sputum; Breath Sounds Clear All Lobes Forced Vital Capacity (FVC) (L) 4.4 Bedside Spirometry/Neuromuscu lar Assessment $Bedside Spirometry/Neuromuscu lar Assessment $Performed - Neuromuscular Assessment (FVC and NIF) NIF (cm H2O) (Non-Intubated) -35 RESPIRATORY THERAPY PROGRESS NOTE SERVICE DATE: 06/10/2024 SERVICE TIME: 1650 NIF and VC SIGNATURE: Petr Dasilva, TENTER FEEDER PATIENT NAME: Hayden Pendleton DATE: June 10, 2024 TIME: 4:52 PM PAGER/CONTACT #: Eusebio Normal [facility] ALLIED HEALTHon 06-09-2024 ALLIED HEALTH HNO ID: [id number] Author: ROXANA OLIVO Tech Service: Radiology Author Type: Bpm Architect Type: Allied Health Filed: 06/09/2024 10:04 Note Text: Radiology Service Progress Note DATE OF SERVICE: June 09, 2024 TIME: 10:03 AM PATIENT IDENTITY VERIFICATION COMPLETED USING TWO (2) STANDARD IDENTIFIERS: Name and Date of confirmed by patient verbally and Name and Date of confirmed by identification band. FALL SCREENING: Has the patient had 2 falls in the last year or 1 fall with injury or currently using an Ambulatory Assistive Device (Walker, Cane, Wheelchair, Crutches, etc.)? Emergency Room Patient: Screened in ED PATIENT GENDER DATA: Assigned male at PATIENT RELEVANT IMPLANT DATA REVIEWED: Not Applicable PATIENT PRESENTS WITH AN IMPLANTABLE OR ATTACHED JOB DEVELOPER: No ALLERGIES: Reviewed and unchanged CONTRAST ALLERGY: NO. EXAM: CT -CONTRAST INDUCED NEPHROPATHY RISK FACTORS: Not applicable CREATININE: Creatinine Date Value Ref Range Status 06/09/2024 1.14 0.73 - 1.22 mg/dL Final 11/04/2023 1.06 0.73 - 1.22 mg/dL Final 11/01/2021 1.15 0.73 - 1.22 mg/dL Final Estimated Glomerular Filtration Rate Date Value Ref Range Status 06/09/2024 75 >=60 mL/min/1.73m? Final Comment: Estimated Glomerular Filtration Rate (eGFR) is calculated using the 2020 CKD-EPI creatinine equation. This equation utilizes serum creatinine, sex, and age as parameters. The creatinine assay has traceable calibration to isotope dilution-mass spectrometry. Refer to KDIGO guidelines for clinical interpretation. In patients with unstable renal function, e.g. those with acute kidney injury, the eGFR may not accurately reflect actual GFR. eGFR- Date Value Ref Range Status 10/28/2020 >60 Final P.O.C.T. RESULTS: POC done: Yes, See Lab Tab June 09, 2024 TREATMENT: N/A PERIPHERAL IV DATA: Inpatient - refer to LDA documentation RADIOLOGY DEPARTMENT: CT; Exam(s) Completed: Brain , CTA Brain , and CTA Neck SIGNATURE: Ranjit Finn PATIENT NAME: Hayden Pendleton DATE: June 09, 2024 TIME: 10:03 AM Normal [facility] CBC W Auto Differential pane l (Bld)on 06-09-2024 Basophils (Bld) [#/Vol] 0.10 10*3/uL Normal <0.11 [facility] Comment on above: Order Comment: Speci men Type: BLOOD SPECIMENOrdering Facility: [facility] Address: [address] [place] [address] Performed By: #### 5 7021-8 ####[facility]ORATORYCLIA [id number] [address] [place] [facility] Basophils/100 WBC (Bld) 1.4 % Normal [facility] Comment on above: Order Comment: Speci men Type: BLOOD SPECIMENOrdering Facility: [facility] Address: [address] [place] [address] Performed By: #### 5 7021-8 ####[facility]ORATORYCLIA [id number] [address] Differential cell count method Nom (Bld) Auto Normal [facility] Comment on above: Order Comment: Speci men Type: BLOOD SPECIMENOrdering Facility: [facility] Address: [address] [place] [address] Performed By: #### 5 7021-8 ####[facility]ORATORYCLIA [id number] [address] STATES OF [facility] Eosinophils (Bld) [#/Vol] 0.34 10*3/uL Normal <0.46 [facility] Comment on above: Order Comment: Speci men Type: BLOOD SPECIMENOrdering Facility: [facility] Address: [address] [place] [address] Performed By: #### 5 7021-8 ####[facility]ATORYCLIA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 43238, ####[facility] LABORATORYCLIA [id number] [address] [place] Urea nitrogen [Mass/Vol] 14 mg/dL Normal 9-24 [facility] Comment on above: Order Comment: Speci men Type: BLOOD SPECIMENOrdering Facility: [facility] Address: [address] [place] [address] Performed By: #### 2 4323-8, ####[facility] LABORATORYCLIA [id number] [address] [place] ED NOTEon 06-09-2024 ED NOTE HNO ID: [id number] Author: JAROCHO BAKER RN Service: Emergency Medicine Author Type: Registered Nurse Type: ED Notes Filed: 06/09/2024 16:54 Note Text: Verified that EVS is present and starting to clean 2104-02. Normal [facility] ED NOTE HNO ID: [id number] Author: PRINCE JACOBS RN Service: Emergency Medicine Author Type: Registered Nurse Type: ED Notes Filed: 06/09/2024 09:55 Note Text: dental technician metal notified that patient is ready for CT. Normal [facility] ED NOTE HNO ID: [id number] Author: LISA ROBLEDO, MADHAV Service: Emergency Medicine Author Type: Registered Nurse Type: ED Notes Filed: 06/09/2024 09:18 Note Text: XR notified Normal [facility] ED PROV NOTEon 06-09-2024 ED PROV NOTE HNO ID: [id number] Author: EDIE GRIMALDO MD Service: Emergency Medicine Author Type: Resident Type: ED Provider Notes Filed: 06/09/2024 21:44 Note Text: Attestation signed by Edie Grimaldo I, MD at 06/09/2024 9:44 PM Attending Note I evaluated the patient and personally participated in the morales components. I agree with the resident's findings and plan as documented and have discussed the case and management of the patient's care with the resident. Signature: Edie Grimaldo MD Date: 06/09/2024 Time: 9:44 PM ED Provider Note Patient Name: Hayden Pendlteon : 1965 SERVICE DATE: 06/09/24 History Patient presents with: Dizziness: Pt arrives to triage c/o dizziness, headaches, and stiff neck x 3 weeks, and SOB. Pt also reports falling a couple days ago, hit head, no loc, takes baby aspirin. Hx quadruple bypass surgery on 2020 This is a 59-year-old male who presents to the emergency department for dizziness. History obtained from patient and at the bedside. Patient states that he has been dealing with dizziness for the past 3 weeks. Has been seen by PCP and ENT who prescribed scopolamine patches, meclizine, Valium with no relief of symptoms. Patient states that he has gotten so dizzy to the point where he is very nauseous. Also states that he feels unsteady on his feet when ambulating. Patient states that he cannot make any movement without getting severely dizzy. Patient states that he did fall the other day, no loss of consciousness, no blood thinners. Patient states that he stood up from his bed became dizzy and fell forward hitting his head on the closet door. He denies fever sweats chills chest pain shortness of breath abdominal pain urinary symptoms focal weakness melena hematochezia constipation diarrhea. He is well-appearing and in no acute distress upon my examination of him. Vital signs are within normal limits. Patient states that he was seen and evaluated over at [facility] last week with no clear cause of the dizziness. Patient states that he underwent some type of testing of the brain but was unsure what it was. Patient is also complaining of neck pain that started few days ago, it is bilateral spanning from the neck up to the occiput. PAST MEDICAL HISTORY Diagnosis Date CAD (coronary artery disease) Dyslipidemia HTN (hypertension) Hx of CABG Low back pain Rheumatoid arthritis (HCC) PAST SURGICAL HISTORY Procedure Laterality Date CABG (4) VEIN GRAFTS AND ARTERIAL GRAFT(S) 10/25/2020 HIP SURGERY HX Right SCAPULA Right FAMILY HISTORY Problem Relation Age of Onset Heart Attack Mother Heart Attack Sister Social History Tobacco Use Smoking status: Every Day Current packs/day: 1.00 Types: Cigarettes Smokeless tobacco: Never Vaping Use Vaping status: Never Used Substance and Sexual Activity Alcohol use: Not Currently Drug use: Yes Types: Marijuana Comment: occasionally Sexual activity: Not on file ALLERGIES Allergen Reactions Oxycotin [Oxycodone] Rash Prednisone Intolerance flushing of skin-steriods Review of Systems All other systems reviewed and are negative. Physical Exam Vitals [06/09/24 0842] BP Pulse Temp Temp src Resp SpO2 Weight Height 176/101 81 36.5 ?C (97.7 ?F) Oral 22 98 % 92.1 kg (203 lb) 1.854 m (6' 1) Physical Exam HENT: Head: Normocephalic and atraumatic. Right Ear: External ear normal. Left Ear: External ear normal. Nose: Nose normal. Mouth/Throat: Mouth: Mucous membranes are moist. Eyes: General: Right eye: No discharge. Left eye: No discharge. Neck: Comments: No midline cervical thoracic or lumbar tenderness to palpation there are no step-offs or deformities Paraspinal tenderness bilaterally in the cervical region Cardiovascular: Rate and Rhythm: Normal rate and regular rhythm. Pulmonary: Effort: Pulmonary effort is normal. Breath sounds: No wheezing. Chest: Chest wall: No tenderness. Abdominal: General: Abdomen is flat. Tenderness: There is no abdominal tenderness. There is no guarding or rebound. Musculoskeletal: Cervical back: Normal range of motion. No rigidity or tenderness. Right lower leg: No edema. Left lower leg: No edema. Skin: General: Skin is warm. Neurological: Mental Status: He is alert and oriented to person, place, and time. Cranial Nerves: No cranial nerve deficit. Sensory: No sensory deficit. Motor: No weakness. Coordination: Coordination abnormal. Comments: Difficulty with finger-nose bilaterally Unsteady gait Diagnostic Testing ED Labs Ordered and Reviewed COMPREHENSIVE METABOLIC PANEL - Abnormal; Notable for the following components: Result Value Ref Range Glucose 108 (*) 74 - 99 mg/dL All other components within norm (more content not included)... Normal [facility] ED PROV NOTE HNO ID: [id number] Author: EDIE GRIMALDO MD Service: Emergency Medicine Author Type: Physician Type: ED Provider Notes Filed: 06/09/2024 16:31 Note Text: HPI 59-year-old male with pmhx of HTN, CAD s/p CABG and prior vertigo who presents today with chief complaint of dizziness and headache. Dizzy and PEDROZA x 3-4 weeks. Has seen ENT and tried multiple meds w/o improvement. Dizziness is worse w movement. No trauma. ?admitted at OSH last week for similar sx. Unsure of workup, did have virtual neuro cs and ?CT. All normal per pt and family. PE Gen:awake, alert, NAD Nystagmus on lat gaze PERRL, EOMI, CN 2-12 intact CV:RRR Pulm:CTAB Abd:soft, NT DDX includes but not limited to:vertigo, lyte abnl, ICH, CVA (not in acute stroke window), vert/carotid process ED course and plan Labs and CT imaging will be obtained as well as EKG. Will attempt symptom control. No leukocytosis or anemia. Troponin negative. CT imaging does show some stenosis of the ICA. EKG shows normal sinus rhythm, no ST elevation, no ectopy. Above workup does not show any clear etiology of the patient's symptoms. He is quite symptomatic despite symptom control provided here in the emergency department. Feel he does warrant admission for neurology consult further workup and symptom management. Attending Note I evaluated the patient and personally participated in the morales components. I agree with the resident's findings and plan as documented and have discussed the case and management of the patient's care with the resident. Signature: Edie Grimaldo MD Date: 06/09/2024 Time: 4:31 PM EDIE GRIMALDO 06/09/24 1631 Normal [facility] EKGon 06-09-2024 Electrocardiogram Ventricular Rate : 7 7 BPM Atrial Rate : 77 BPM P-R Interval : 196 ms QRS Duration : 86 ms Q-T Interval : 368 ms QTC Calculation(Bazett) : 416 ms Calculated P [place] : 6 degrees Calculated R [place] : 69 degrees Calculated T [place] : 22 degrees NORMAL SINUS RHYTHM NORMAL ECG WHEN COMPARED WITH ECG OF 26-Oct-2020 06:06, ST NO LONGER ELEVATED IN ANTEROLATERAL LEADS Confirmed by EDIE GRIMALDO MD ([id number]) on 06/09/2024 4:31:22 PM NAME : HAYDEN PENDLETON PID : [id number] : 1965 Gender : Male Race : ORD : Procedure Date : Jun 09 2024 08:45:59 Edit Date : Jun 09 2024 16:31:24 Diagnosis: NORMAL SINUS RHYTHM NORMAL ECG WHEN COMPARED WITH ECG OF 26-Oct-2020 06:06, ST NO LONGER ELEVATED IN ANTEROLATERAL LEADS Confirmed by EDIE GRIMALDO MD ([id number]) on 06/09/2024 4:31:22 PM Test Reason : Location : 4 : [facility] EM Overread By : EDIE GRIMALDO MD Edited By : EDIE GRIMALDO MD Referred By : , Acquired by : HENRI ONEIL Normal [facility] HIGH SENSITIVITY TROPONIN T (INITIAL)on 06-09-2024 Troponin T.cardiac High sensitivity method [Mass/Vol] <6 Normal <12 [facility] Comment on above: Order Comment: Specchantel san Type: BLOOD SPECIMENOrdering Facility: [facility] Address: [address] [place] [id number] Performed By: #### L [id number] ####[facility] LABORATORYCLIA [id number] [place] [address] [facility] HIGH SENSITIVITY TROPONIN T (SECOND)on 06-09-2024 Troponin T.cardiac High sensitivity method [Mass/Vol] 6 ng/L Normal <12 [facility] Comment on above: Order Comment: Speci men Type: BLOOD SPECIMENOrdering Facility: [facility] Address: [address] [place] [id number] Performed By: #### L [id number] ####[facility] LABORATORYCLIA [id number] [place] [address] [facility] HISTORY PHYSICALon HISTORY PHYSICAL HNO ID: [id number] Author: BARB IVERSON MD Service: Hospital Medicine Author Type: Physician Type: H&P Filed: 06/09/2024 17:52 Note Text: DEPARTMENT OF HOSPITAL MEDICINE HISTORY AND PHYSICAL EXAM SERVICE DATE: 06/09/2024 SERVICE TIME: 01 29 Primary Care Physician: Jess Rosas CNP NIGHT AND WEEKEND COVERAGE: 1868 Subjective CHIEF COMPLAINT: dizziness HPI: This is a 59-year-old male, with PMH as follows: HTN, HLD, rheumatoid arthritis. He also has Hx CAD status post CABG in 2020. At this time, the patient presents to the ER, with a chief complaint of dizziness. It seems that the patient has been suffering from dizziness for about 3 weeks now. He has seen his PCP and ENT for the same; and has been on scopolamine, as well as meclizine, without any improvement. Presently, he apparently says that he is slowly been able to move without becoming dizzy and nauseated, and therefore presented to the ER for further evaluation. To note, since onset of his symptoms, he has had issues with balance as well, and has been stumbling around the house. To note, 1 week ago, he was admitted to [facility] due to worsening symptoms. Reportedly, during his hospital stay, he underwent brain MRI, which was normal. The patient will be admitted to a stepdown telemetry unit. PAST MEDICAL HISTORY Diagnosis Date CAD (coronary artery disease) Dyslipidemia HTN (hypertension) Hx of CABG Low back pain Rheumatoid arthritis (HCC) PAST SURGICAL HISTORY Procedure Laterality Date CABG (4) VEIN GRAFTS AND ARTERIAL GRAFT(S) 10/25/2020 HIP SURGERY HX Right SCAPULA Right FAMILY HISTORY Problem Relation Age of Onset Heart Attack Mother Heart Attack Sister Social History Tobacco Use Smoking status: Every Day Current packs/day: 1.00 Types: Cigarettes Smokeless tobacco: Never Vaping Use Vaping status: Never Used Substance Use Topics Alcohol use: Not Currently Drug use: Yes Types: Marijuana Comment: occasionally MEDICATIONS: Reviewed Prior to Admission Medications Prescriptions Last Dose Informant Patient Reported? Taking? acetaminophen (TYLENOL) 500 mg tablet No No Sig: Take 2 tablets by mouth every 6 hours as needed for pain. Patient not taking: Reported on 11/04/2023 albuterol HFA (PROVENTIL HFA, VENTOLIN HFA) 90 mcg/actuation inhaler Yes No Sig: Inhale 2 Puffs as instructed. Patient not taking: Reported on 02/23/2023 aspirin 81 mg chewable tablet No No Sig: Take 1 tablet by mouth once daily. cholecalciferol, vitamin D3, (VITAMIN D3 ORAL) Yes No Sig: Take by mouth once daily. Patient not taking: Reported on 06/06/2024 citalopram (CELEXA) 40 mg tablet Yes No Sig: Take 40 mg by mouth once daily. Patient not taking: Reported on 06/06/2024 cyclobenzaprine (FLEXERIL) 5 mg tablet Yes No Sig: Take 10 mg by mouth three times a day as needed. diazePAM (VALIUM) 5 mg tablet Yes No Sig: TAKE 1 TABLET BY MOUTH ONCE DAILY NEEDED FOR ANXIETY/VERTIGO esomeprazole (NEXIUM) 40 mg capsule Yes No Sig: Take 1 capsule by mouth once daily. ezetimibe (ZETIA) 10 mg tablet No No Sig: Take 1 tablet by mouth once daily. isosorbide mononitrate ER (IMDUR) 30 mg 24 hr tablet No No Sig: Take 1 tablet by mouth once daily melatonin 3 mg tablet No No Sig: Take 1 tablet by mouth at bedtime as needed (insomnia). Patient not taking: Reported on 06/06/2024 metoprolol tartrate, short acting, (LOPRESSOR) 25 mg tablet No No Sig: Take 1 tablet by mouth twice daily nabumetone (RELAFEN) 500 mg tablet Yes No Sig: Take by mouth. Patient not taking: Reported on 01/15/2021 nicotine (NICODERM) 14 mg/24 hr No No Sig: Apply 1 Patch as directed once daily. Patient not taking: Reported on 04/23/2021 omeprazole (PRILOSEC) 40 mg capsule Yes No Sig: Take 40 mg by mouth as needed. pantoprazole DR (PROTONIX) 20 mg tablet Yes No Sig: Take 20 mg by mouth once daily. Patient not taking: Reported on 09/03/2021 rosuvastatin (CRESTOR) 20 mg tablet No No Sig: TAKE 1 TABLET BY MOUTH ONCE DAILY AT BEDTIME Facility-Administered Medications: None ALLERGIES Allergen Reactions Oxycotin [Oxycodone] Rash Prednisone Intolerance flushing of skin-steriods REVIEW OF SYSTEM: 10 point review of systems carried out and is negative except as mentioned in HPI. Objective PHYSICAL EXAM: BP 176/101 Pulse 81 Temp (Src) 97.7 (Oral) Resp 22 Ht 6' 1 (1.85m) Wt 203 lb (92.1kg) SpO2 98% BMI 26.79 kg/(m2). Physical Exam Performed: General: Patient laying in bed , in no acute distress. HEENT: Head atraumatic, face symmetrical Cardiovascular: S1-S2 normal, no murmurs distinguished Chest: Bilateral air entry equal, normal breath sounds in all lung richardson Abdomen: Soft non tender Neuro: AO x3, non focal on exam Lower extremities: No edema Lines, Drains, and Airways Line Duration Peripheral 06/09/24 0917 Left Forearm 20 Gauge <1 day DATA: Diagnostic tests revie (more content not included)... Normal [facility] MYELOPATHY, AUTOIMMUNE/PARAN EOPLASTIC EVALUATION, SERUMon 06-09-2024 AMPHIPHYSIN AB Negative Normal Negative [facility] Comment on above: Order Comment: Speci men Type: BLOOD SPECIMENOrdering Facility: [facility] Address: [address], [place] [address] Result Comment: ADDITIONAL INFORMATION This test was developed and its performance characteristics determined by [facility] in a manner consistent with CLIA requirements. This test has not been cleared or approved by the U.S. Food and Drug Administration. Performed By: #### Codi ROATHY ####[facility] LABCLIA [id number] [place] [address] ANTI-GLIAL NUCLEAR AB, TYPE 1 Negative Normal Negative [facility] Comment on above: Order Comment: Zeyad san Type: BLOOD SPECIMENOrdering Facility: [facility] Address: [address] [place] [address] Result Comment: ADDITIONAL INFORMATION This test was developed and its performance characteristics determined by [facility] in a manner consistent with CLIA requirements. This test has not been cleared or approved by the U.S. Food and Drug Administration. Performed By: #### Codi ROATHY ####[facility] LABCLIA [id number] [place] [address] ANTI-NEURONAL NUC AB, TYPE 1 Negative Normal Negative [facility] Comment on above: Order Comment: Zeyad san Type: BLOOD SPECIMENOrdering Facility: [facility] Address: [address] [place] [address] Result Comment: ADDITIONAL INFORMATION This test was developed and its performance characteristics determined by [facility] in a manner consistent with CLIA requirements. This test has not been cleared or approved by the U.S. Food and Drug Administration. Performed By: #### Codi ROATHY ####[facility] LABCLIA [id number] [place] [address] ANTI-NEURONAL NUC AB, TYPE 2 Negative Normal Negative [facility] Comment on above: Order Comment: Zeyad san Type: BLOOD SPECIMENOrdering Facility: [facility] Address: [address] [place] [address] Result Comment: ADDITIONAL INFORMATION This test was developed and its performance characteristics determined by [facility] in a manner consistent with CLIA requirements. This test has not been cleared or approved by the U.S. Food and Drug Administration. Performed By: #### M LPTHY ####[facility] LABCLIA [id number] [place] [address] ANTI-NEURONAL NUC AB, TYPE 3 Negative Normal Negative [facility] Comment on above: Order Comment: Zeyad san Type: BLOOD SPECIMENOrdering Facility: [facility] Address: [address] [place] [address] Result Comment: ADDITIONAL INFORMATION This test was developed and its performance characteristics determined by [facility] in a manner consistent with CLIA requirements. This test has not been cleared or approved by the U.S. Food and Drug Administration. Performed By: #### Codi ROATHY ####[facility] LABCLIA [id number] [place] [address] AP3B2 IFA, S Negative Normal Negative [facility] Comment on above: Order Comment: Zeyad san Type: BLOOD SPECIMENOrdering Facility: [facility] Address: [address] [place] [address] Result Comment: ADDITIONAL INFORMATION This test was developed and its performance characteristics determined by [facility] in a manner consistent with CLIA requirements. This test has not been cleared or approved by the U.S. Food and Drug Administration. Performed By: #### Codi LPTHY ####[facility] LABCLIA [id number] [place] [address] AUTOIMMUNE MYELOPATHY INTERP, S SEE NOTE Normal [facility] Comment on above: Order Comment: Zeyad san Type: BLOOD SPECIMENOrdering Facility: [facility] Address: [address] [place] [address] Result Comment: No i nformative autoantibodies were detected in this evaluation. However, a negative result does not exclude autoimmune myelopathy, idiopathic or paraneoplastic. Sensitivity and specificity of antibody testing are enhanced by testing both serum and CSF. Performed By: #### Codi ROATHY ####[facility] LABCLIA [id number] [place] [address] CRMP-5-IGG WESTERN BLOT, S ALSO USED BY TESTS: CRMWS Negative Normal Negative [facility] Comment on above: Order Comment: Zeyad san Type: BLOOD SPECIMENOrdering Facility: [facility] Address: [address] [place] [address] Result Comment: ADDITIONAL INFORMATION This test was developed and its performance characteristics determined by [facility] in a manner consistent with CLIA requirements. This test has not been cleared or approved by the U.S. Food and Drug Administration. Performed By: #### Codi ROATHY ####[facility] LABCLIA [id number] [place] [address] DPPX AB CBA, S Negative Normal Negative [facility] Comment on above: Order Comment: Zeyad san Type: BLOOD SPECIMENOrdering Facility: [facility] Address: [address] [place] [address] Result Comment: ADDITIONAL INFORMATION This test was developed and its performance characteristics determined by [facility] in a manner consistent with CLIA requirements. This test has not been cleared or approved by the U.S. Food and Drug Administration. Performed By: #### Codi ROATHY ####[facility] LABCLIA [id number] [place] [address] NELSON-B-R AB CBA, S Negative Normal Negative [facility] Comment on above: Order Comment: Zeyad san Type: BLOOD SPECIMENOrdering Facility: [facility] Address: [address] [place] [address] Result Comment: ADDITIONAL INFORMATION This test was developed and its performance characteristics determined by [facility] in a manner consistent with CLIA requirements. This test has not been cleared or approved by the U.S. Food and Drug Administration. Performed By: #### Codi ROATHY ####[facility] LABCLIA [id number] [place] [address] GAD65 ANTIBODY 0.00 nmol/L Normal <= 0.02 [facility] Comment on above: Order Comment: Zeyad san Type: BLOOD SPECIMENOrdering Facility: [facility] Address: [address] [place] [address] Result Comment: ADDITIONAL INFORMATION This test was developed and its performance characteristics determined by [facility] in a manner consistent with CLIA requirements. This test has not been cleared or approved by the U.S. Food and Drug Administration. Performed By: #### Codi ROATHY ####[facility] LABCLIA [id number] [place] [address] GFAP IFA, S Negative Normal Negative [facility] Comment on above: Order Comment: Zeyad san Type: BLOOD SPECIMENOrdering Facility: [facility] Address: [address] [place] [address] Result Comment: ADDITIONAL INFORMATION This test was developed and its performance characteristics determined by [facility] in a manner consistent with CLIA requirements. This test has not been cleared or approved by the U.S. Food and Drug Administration. Performed By: #### Codi ROATHY ####[facility] LABCLIA [id number] [place] [address] IFA NOTES (MLPTHY) None. Normal [facility] Comment on above: Order Comment: Zeyad [facility] Type: BLOOD SPECIMENOrdering Facility: [facility] Address: [address] [place] [address] Performed By: #### Codi ROATHY ####[facility] LABCLIA [id number] [place] [address] MGLUR1 AB IFA, S Negative Normal Negative [facility] Comment on above: Order Comment: Zeyad san Type: BLOOD SPECIMENOrdering Facility: [facility] Address: [address] [place] [address] Result Comment: ADDITIONAL INFORMATION This test was developed and its performance characteristics determined by [facility] in a manner consistent with CLIA requirements. This test has not been cleared or approved by the U.S. Food and Drug Administration. Performed By: #### Codi LEGGETT ####[facility] LABCLIA [id number] [place] [address] MYELIN OLIGODENDROCYTE GLYCOPROTEIN (MOG-IGG1) FLUORESCENCE-ACTIVATED CELL Negative Normal Negative [facility] Comment on above: Order Comment: Zeyad [facility] Type: BLOOD SPECIMENOrdering Facility: [facility] Address: [address] [place] [address] Result Comment: ADDITIONAL INFORMATION This test was developed and its performance characteristics determined by [facility] in a manner consistent with CLIA requirements. This test has not been cleared or approved by the U.S. Food and Drug Administration. Performed By: #### Codi ROATHY ####[facility] LABCLIA [id number] [place] [address] NEUROCHONDRIN IFA , S Negative Normal Negative [facility] Comment on above: Order Comment: Zeyad [facility] Type: BLOOD SPECIMENOrdering Facility: [facility] Address: [address] [place] [address] Result Comment: ADDITIONAL INFORMATION This test was developed and its performance characteristics determined by [facility] in a manner consistent with CLIA requirements. This test has not been cleared or approved by the U.S. Food and Drug Administration. Performed By: #### Codi ROATHY ####[facility] LABCLIA [id number] [place] [address] NIF IFA, S Negative Normal Negative [facility] Comment on above: Order Comment: Zeyad san Type: BLOOD SPECIMENOrdering Facility: [facility] Address: [address] [place] [address] Result Comment: ADDITIONAL INFORMATION This test was developed and its performance characteristics determined by [facility] in a manner consistent with CLIA requirements. This test has not been cleared or approved by the U.S. Food and Drug Administration. Performed By: #### Codi ROATHY ####[facility] LABCLIA [id number] [place] [address] NMO/AQPF FACS, S Negative Normal Negative [facility] Comment on above: Order Comment: Zeyad san Type: BLOOD SPECIMENOrdering Facility: [facility] Address: [address] [place] [address] Result Comment: ADDITIONAL INFORMATION This test was developed and its performance characteristics determined by [facility] in a manner consistent with CLIA requirements. This test has not been cleared or approved by the U.S. Food and Drug Administration. Performed By: #### Codi ROATHY ####[facility] LABCLIA [id number] [place] [address] PURKINJE CELL CYTO AB, TYPE 1 Negative Normal Negative [facility] Comment on above: Order Comment: Zeyad san Type: BLOOD SPECIMENOrdering Facility: [facility] Address: [address] [place] [address] Result Comment: ADDITIONAL INFORMATION This test was developed and its performance characteristics determined by [facility] in a manner consistent with CLIA requirements. This test has not been cleared or approved by the U.S. Food and Drug Administration. Performed By: #### Codi ROATHY ####[facility] LABCLIA [id number] [place] [address] PURKINJE CELL CYTO AB, TYPE 2 Negative Normal Negative [facility] Comment on above: Order Comment: Zeyad san Type: BLOOD SPECIMENOrdering Facility: [facility] Address: [address] [place] [address] Result Comment: ADDITIONAL INFORMATION This test was developed and its performance characteristics determined by [facility] in a manner consistent with CLIA requirements. This test has not been cleared or approved by the U.S. Food and Drug Administration. Performed By: #### Codi ROATHY ####[facility] LABCLIA [id number] [place] [address] SEPTIN-7 IFA, S Negative Normal Negative [facility] Comment on above: Order Comment: Zeyad san Type: BLOOD SPECIMENOrdering Facility: [facility] Address: [address] [place] [address] Result Comment: ADDITIONAL INFORMATION This test was developed and its performance characteristics determined by [facility] in a manner consistent with CLIA requirements. This test has not been cleared or approved by the U.S. Food and Drug Administration. Performed By: #### Codi ROATHY ####[facility] LABCLIA [id number] [place] [address] TRIM46 AB IFA, S Negative Normal Negative [facility] Comment on above: Order Comment: Zeyad san Type: BLOOD SPECIMENOrdering Facility: [facility] Address: [address] [place] [address] Result Comment: ADDITIONAL INFORMATION This test was developed and its performance characteristics determined by [facility] in a manner consistent with CLIA requirements. This test has not been cleared or approved by the U.S. Food and Drug Administration. Test Performed by: [address] [address] [place] Estimator: Lilli Fernandez Ph.D.; CLIA# [id number] Performed By: #### M LPTHY ####[facility] LABCLIA [id number] [place] [address] Magnesium SerPl-mCncon 06-09 Magnesium [Mass/Vol] 2.1 mg/dL Normal 1.7-2.3 [facility] Comment on above: Order Comment: Specchantel san Type: BLOOD SPECIMENOrdering Facility: [facility] Address: [address] [place] [address] Performed By: #### 2 4323-8, 42821-1 ####[facility] LABORATORYCLIA [id number] [place] [address] [place] T4 Free SerPl-mCncon 025 Free T4 [Mass/Vol] 1.1 ng/dL Normal 0.9-1.7 [facility] Comment on above: Order Comment: Zeyad san Type: BLOOD SPECIMENOrdering Facility: [facility] Address: [address] [place] [address] Performed By: #### 2 132-9, 3024-7 ####[facility] LABORATORYCLIA [id number] [place] [address] [place] VITAMIN B1 (THIAMINE), WHOLE BLOODon 06-09-2024 Thiamine (Bld) [Moles/Vol] 177.0 nmol/L Normal 84.3-213.3 [facility] Comment on above: Order Comment: Zeyad san Type: BLOOD SPECIMENOrdering Facility: [facility] Address: [address] [place] [address] Result Comment: This assay measures the concentration of thiamine diphosphate (TDP), the primary active form of vitamin B1. Approximately 90 percent of vitamin B1 present in whole blood is TDP. Thiamine and thiamine monophosphate, which comprise the remaining 10 percent, are not measured. This test was developed, and its performance characteristics determined by the [facility] Department of Pathology and Laboratory Medicine. It has not been cleared or approved by the FDA. The [facility] Department of Pathology and Laboratory Medicine is regulated under CLIA as qualified to perform high-complexity testing. This test is used for clinical purposes. It should not be regarded as investigational or for research. Performed By: #### B 1WB ####[facility] LABCLIA [id number] [address] [place] Vit B12 SerPl-mCncon 025 Cobalamin (Vitamin B12) [Mass/Vol] 515 pg/mL Normal 232-1245 [facility] Comment on above: Order Comment: Speci men Type: BLOOD SPECIMENOrdering Facility: [facility] Address: [address] [place] [address] Performed By: #### 2 132-9, 3024-7 ####[facility] LABORATORYCLIA [id number] [place] XR CHEST 2V FRONTAL/LATon XR CHEST 2V FRONTAL/LAT * * *Final Repor t* * * DATE OF EXAM: Jun 09 2024 9:30AM AKX [id number] - XR CHEST 2V FRONTAL/LAT / PROCEDURE REASON: Chest Pain * * * * Physician Interpretation * * * * EXAMINATION: CHEST RADIOGRAPH (2 VIEW FRONTAL and LATERAL) CLINICAL HISTORY: Chest Pain MQ: [id number]_6 EXAM DATE/TIME: 06/09/2024 9:30 AM COMPARISON: 11/22/2020 RESULT: Lines, tubes, and devices: EKG wires. Median sternotomy.. Lungs and pleura: No consolidation. No lung mass. No pleural effusion. No pneumothorax. Cardiomediastinal silhouette: Normal cardiomediastinal silhouette. Bones and soft tissues: Unremarkable. IMPRESSION: No acute radiographic abnormality. Machine Coremaker: JACKI Transcribe Date/Time: Jun 09 2024 9:30A Dictated by : LINDA GARCIA MD This examination was interpreted and the report reviewed and electronically signed by: LINDA GARCIA MD on Jun 09 2024 9:34AM EST [id number] Normal [facility] CNOVon 06-06-2024 CNOV Office Visit (CARDAGHWW) HAYDEN PENDLETON ([id number]) 1965 M Date Time Provider Department 06/06/24 3:00 PM FELICITAS CHAVEZ During your visit today, we recorded the following information about you: Respiration Blood pressure Weight Height 16/minute 123/71 91.6 kg 1.854 m Felicitas Chavez MD 06/06/2024 4:52 PM Addendum Chief Complaint: Patient presents with: Cardiology Follow [...] he had an exercise stress echo at [facility] and was referred here to see a cigar wrapper after that. I do not have any records from his PCPs office. 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 He underwent four-vessel CABG on 10/25/[address] Alonso. Postop course was uneventful. He has been enrolled in cardiac rehab at [facility]. I received notification from them that [...] evaluation. He said he went to the [facility] ER on Wednesday. He said they did EKG and blood work and sent him home to follow-up with a cigar wrapper. 10/15/2021: Patient was started on Imdur at [...] breath gets worse. He recently saw a orchestrator who did a lung cancer screening CAT scan. Additionally he also had PFTs done recently and is due to see the orchestrator in follow-up next week. 02/23/2023: Patient denies any chest pain shortness of breath palpitations lightheadedness syncope orthopnea PND or leg edema. He continues to have some mild discomfort in the right parasternal region. This has been worked up in the past with normal stress test and heart catheterization showing patent grafts. He gets tired during the daytime easily. 06/06/2024: The patient is a 59-year-old male with a history of CAD, status post-CABG, presenting with constant vertigo and dyspnea. The patient reports experiencing constant vertigo for the past three weeks, describing it as a persistent feeling of wooziness rather than true spinning. The vertigo is exacerbated by head movements and physical activity. He also reports episodes of lightheadedness, including a recent incident where he felt like he was going to pass out. He has not driven due to these symptoms. He was evaluated by an ENT specialist, who performed the Hansel maneuver multiple times without improvement. He was also seen in the ED, where CT (more content not included)... Normal [facility] ECG B/O W INTERP (MED OFFICE )on 06-06-2024 Interpretation and review of laboratory results Abnormal [facility] Sinus rhythm with frequent PVCs. [facility] Testosterone, Total / Freeon 05-27-2024 TESTOSTER,FREE 14.88 ng/dL Normal 5.00-21.00 [facility] Comment on above: Order Comment: Arabella nts: NPO at [place] prior to lipid panel Performed By: #### L 500.4100, L500.2500, L100.0100 #### [facility] [address] [place], [address] TESTOSTER,TOTAL 399 ng/dL Normal 264-916 [facility] Comment on above: Order Comment: Comme nts: NPO at [place] prior to lipid panel Result Comment: Adul t male reference interval is based on a population of healthy nonobese males (BMI <30) between 19 and 39 years old. Devan et.al. JCEM 2017,102;8654-0401. PMID: [id number]. Performed By: #### L 500.4100, L500.2500, L100.0100 #### [facility] [address] [place], [address] TESTOSTERONE,%F 3.73 Normal 1.50-4.20 [facility] Comment on above: Order Comment: Comme nts: NPO at [place] prior to lipid panel Result Comment: Perf ormed at: - [facility] [id number] [place] Estimator: Loy Lopez PhD, Phone: [phone] Performed at: - [facility] [address] [id number] [place] Estimator: Sylvia Chapman MD, Phone: [phone] Performed By: #### L 500.4100, L500.2500, L100.0100 #### [facility] [address] [place], [address] Absolute lymphocyte countOrd ered By: Joi Woodson on 05-26-2024 Lymphocytes Auto (Unsp spec) [#/Vol] 3.17 10*3/uL 0.83-4.51 [facility] Absolute neutrophil countOrd ered By: Joi Woodson on 05-26-2024 Neutrophils (Bld) [#/Vol] 3.4 10*3/uL 2.0-7.7 [facility] Anion gap in Serum or Plasma Ordered By: Joi Woodson on 05-26-2024 Anion gap [Moles/Vol] 13 mmol/L 5- [place] Automated lymphocyte count a s percentage of total leukocytesOrdered By: Joi Woodson on 05-26-2024 Lymphocytes/100 WBC Auto (Unsp spec) 42.0 % High 19-41 [facility] BUN/creatinine ratioOrdered By: Joi Woodson on 05-26-2024 Urea nitrogen/Creatinine [Mass ratio] 11.7 mg/mg 10- [facility] Basic Metabolic Profile (BMP )on 05-26-2024 BUN/CRE 11.7 RATIO Normal - [facility] Comment on above: Order Comment: Comme nts: NPO at [place] prior to lipid panel Performed By: #### L 500.4100, L500.2500, L100.0100 #### [facility] [address] [place], [address] Calcium [Mass/Vol] 10.0 mg/dL Normal 7.6-11.0 [facility] Comment on above: Order Comment: Comme nts: NPO at [place] prior to lipid panel Performed By: #### L 500.4100, L500.2500, L100.0100 #### [facility] [address] [place], [address] Chloride [Moles/Vol] 103 mmol/L Normal 98-108 [facility] Comment on above: Order Comment: Comme nts: NPO at [place] prior to lipid panel Performed By: #### L 500.4100, L500.2500, L100.0100 #### [facility] [address] [place], [address] CO2 [Moles/Vol] 24.1 mmol/L Normal 21.0-32.0 [facility] Comment on above: Order Comment: Comme nts: NPO at [place] prior to lipid panel Performed By: #### L 500.4100, L500.2500, L100.0100 #### [facility] [address] [place], [address] Creatinine [Mass/Vol] 1.24 mg/dL High 0.70-1.20 [place] Comment on above: Order Comment: Comme nts: NPO at [place] prior to lipid panel Performed By: #### L 500.4100, L500.2500, L100.0100 #### [facility] [address] [place], [address] ECRCL 74.28 ml/min Normal 50-250 [facility] Comment on above: Order Comment: Comme nts: NPO at [place] prior to lipid panel Performed By: #### L 500.4100, L500.2500, L100.0100 #### [facility] [address] [place], [address] GAP 13 Normal 5-15 [facility] Comment on above: Order Comment: Comme nts: NPO at [place] prior to lipid panel Performed By: #### L 500.4100, L500.2500, L100.0100 #### [facility] [address] [place], [address] GFR/1.73 sq M.predicted among non-blacks MDRD (S/P/Bld) [Vol rate/Area] 68 mL/min/{1.73_m2} Normal >60 [facility] Comment on above: Order Comment: Comme nts: NPO at [place] prior to lipid panel Result Comment: mL/m in/1.73m2 CKD-EPI Creatinine Equation (2020) Performed By: #### L 500.4100, L500.2500, L100.0100 #### [facility] [address] [place], [address] Glucose [Mass/Vol] 105 mg/dL High 70-99 [facility] Comment on above: Order Comment: Comme nts: NPO at [place] prior to lipid panel Performed By: #### L 500.4100, L500.2500, L100.0100 #### [facility] [address] [place], [address] Potassium [Moles/Vol] 4.0 mmol/L Normal 3.3-5.1 [place] Comment on above: Order Comment: Comme nts: NPO at [place] prior to lipid panel Performed By: #### L 500.4100, L500.2500, L100.0100 #### [facility] [address] [place], [address] Sodium [Moles/Vol] 140 mmol/L Normal 133-145 [facility] Comment on above: Order Comment: Comme nts: NPO at [place] prior to lipid panel Performed By: #### L 500.4100, L500.2500, L100.0100 #### [facility] [address] [place], [address] Urea nitrogen [Mass/Vol] 15 mg/dL Normal 4-19 [facility] Comment on above: Order Comment: Comme nts: NPO at [place] prior to lipid panel Performed By: #### L 500.4100, L500.2500, L100.0100 #### [facility] [address] [place], [address] Basophil percentageOrdered B y: Joi Woodson on 05-26-2024 Basophils/100 WBC (Bld) 1.3 % High 0-1 [facility] CBC W/Diff, Automatedon Absolute Lymph 3.17 X10 3/uL Normal 0.83-4.51 [facility] Comment on above: Performed By: #### L 500.4100, L500.2500, L100.0100 #### [facility] [address] [place], [address] Absolute Neut 3.4 X10 3/uL Normal 2.0-7.7 [facility] Comment on above: Performed By: #### L 500.4100, L500.2500, L100.0100 #### [facility] [address] [place], [address] Basophils/100 WBC (Bld) 1.3 % High 0-1 [facility] Comment on above: Performed By: #### L 500.4100, L500.2500, L100.0100 #### [facility] [address] [place], [address] Eosinophils/100 WBC (Bld) 4.9 % Normal 0-5 [facility] Comment on above: Performed By: #### L 500.4100, L500.2500, L100.0100 #### [facility] [address] [place], [address] Erythrocyte distribution width (RBC) [Ratio] 14.1 % Normal 11.6-14.6 [facility] Comment on above: Performed By: #### L 500.4100, L500.2500, L100.0100 #### [facility] [address] [place], [address] Hematocrit (Bld) [Volume fraction] 41.9 % Normal 40-54 [facility] Comment on above: Performed By: #### L 500.4100, L500.2500, L100.0100 #### [facility] [address] [place], [address] Hemoglobin (Bld) [Mass/Vol] 14.7 g/dL Normal 13.0-16.5 [facility] Comment on above: Performed By: #### L 500.4100, L500.2500, L100.0100 #### [facility] [address] [place], [address] IG% 0.300 Normal 0.0-0.9 [facility] Comment on above: Result Comment: IG% - Immature Granulocytes (promyelocytes, myelocytes and metamyelocytes) > 1% indicates that a LEFT SHIFT is Present. Performed By: #### L 500.4100, L500.2500, L100.0100 #### [facility] [address] [place], [address] Lymphocytes/100 WBC (Bld) 42.0 % High 19-41 [facility] Comment on above: Performed By: #### L 500.4100, L500.2500, L100.0100 #### [facility] [address] [place], [address] MCH (RBC) [Entitic mass] 28.1 pg Normal 27.0-32.0 [facility] Comment on above: Performed By: #### L 500.4100, L500.2500, L100.0100 #### [facility] [address] [place], [address] MCHC (RBC) [Mass/Vol] 35.1 g/dL Normal 32-36 [place] Comment on above: Performed By: #### L 500.4100, L500.2500, L100.0100 #### [facility] [address] [place], [address] MCV (RBC) [Entitic vol] 80.1 fL Normal 80-94 [facility] Comment on above: Performed By: #### L 500.4100, L500.2500, L100.0100 #### [facility] [address] [place], [address] Monocytes/100 WBC (Bld) 6.0 % Normal 0-10 [facility] Comment on above: Performed By: #### L 500.4100, L500.2500, L100.0100 #### [facility] [address] [place], [address] Neutrophils/100 WBC (Bld) 45.5 % Low 47-70 [facility] Comment on above: Performed By: #### L 500.4100, L500.2500, L100.0100 #### [facility] [address] [place], [address] Nucleated RBC (Bld) [#/Vol] 0 10*3/uL Normal 0-5 [facility] Comment on above: Performed By: #### L 500.4100, L500.2500, L100.0100 #### [facility] [address] [place], [address] Platelet mean volume (Bld) [Entitic vol] 9.8 fL Normal 6.2-12.0 [facility] Comment on above: Performed By: #### L 500.4100, L500.2500, L100.0100 #### [facility] [address] [place], [address] Platelets (Bld) [#/Vol] 276 10*3/uL Normal 150-450 [facility] Comment on above: Performed By: #### L 500.4100, L500.2500, L100.0100 #### [facility] [address] [place], [address] RBC (Bld) [#/Vol] 5.23 10*6/uL Normal 4.6-6.2 [facility] Comment on above: Performed By: #### L 500.4100, L500.2500, L100.0100 #### [facility] [address] [place], [address] RDW SD 40.8 fl Normal 35.1-43.9 [facility] Comment on above: Performed By: #### L 500.4100, L500.2500, L100.0100 #### [facility] [address] [place], [address] WBC (Bld) [#/Vol] 7.5 10*3/uL Normal 4.4-11.0 [facility] Comment on above: Performed By: #### L 500.4100, L500.2500, L100.0100 #### [facility] [address] [place], [address] Calculated very low density lipoprotein (VLDL) cholesterol measurementOrdered By: Joi Woodson on 05-26-2024 Calculated very low density lipoprotein (VLDL) cholesterol measurement 71 mg/dL High 5-40 [facility] VLDL Cholesterol 71 mg/dL High 5-40 [facility] Carbon dioxide, total [Moles /volume] in Central venous bloodOrdered By: Joi Woodson on 05-26-2024 CO2 [Moles/Vol] 24.1 mmol/L 21.0-32.0 [facility] Chloride assayOrdered By: Tana Woodson on 05-26-2024 Chloride [Moles/Vol] 103 mmol/L 98-108 [facility] Discharge Instructionon Discharge Instruction [facility] Medical Records Department [address] [place] [address] Instructions for Home/Discharge Instructions 05/26/24 1342 MR#: [id number] Acct: [id number] Name: HAYDEN PENDLETON #: [id number] : 1965 59 From: Marcos Lovelace DO PCP: SHIKHA PathakC Status:ADM DAJA Discharge Instructions Diet Discharge Diet: No restrictions DC O2, CPAP, BIPAP needs Home O2 Discharge instructions: No Dressing / Incision Discharge Activity: No Restrictions Follow Up Care Test Results: Test results from this visit will be discussed in further detail at your follow-up appointment, if applicable. Discharge Plan Admission Admit Date/Time: 05/25/24 14:14 Primary Reason for Your Visit: Vertigo Attending Provider: Marcos Lovelace Primary Care Provider: Jess Rosas [facility] Consulting Providers: Nilo Hill; Radha Leyva; Mariana Stiles; Jie Palacio; Ashanti Leslie; Christiano Garcia; Mary Walls; Washington Masters; Abhay Sin; Иван Rutledge; Renee Beck; Tigre Masterson; Hanna Hammond; Bonnie Vicente; Benja Ivey; Alvin Ward; Ozzie Gibbs; Sabas Piedra; Kaylan Paulino; Ravi Fonseca; Joi Woodson Instructions Additional Instructions / Restrictions: Use scopolamine patch as needed to help with vertigo. Follow-up with vestibular physical therapy in the outpatient setting as well. Discharge Orders/Prescriptions Prescriptions: New scopolamine base 1 mg over 3 days Patch 3 Day 1 patch transdermal Q3D 14 Days Qty: 5 0RF Continued aspirin [Adult Low Dose Aspirin] 81 mg tablet,delayed release (DR/EC) 81 mg PO DAILY acetaminophen [Tylenol Extra Strength] 500 mg tablet 1,000 mg PO BID PRN (Reason: fever or pain) isosorbide mononitrate 30 mg tablet extended release 24 hr 30 mg PO DAILY Patient Comments: TAKE 1 TABLET BY MOUTH ONCE DAILY meclizine 50 mg tablet 50 mg PO BID PRN (Reason: dizziness) Qty: 30 1RF cyclobenzaprine 10 mg tablet 10 mg PO TID PRN PRN (Reason: Muscle Spasm) Patient Comments: TAKE 1/2 TO 1 TABLET THREE TIMES DAILY NEEDED FOR MUSCLE SPASM diazepam 2 mg tablet 2 mg PO DAILY PRN (Reason: anxiety) losartan 50 mg tablet 50 mg PO DAILY tamsulosin 0.4 mg capsule 0.4 mg PO QHS esomeprazole magnesium 40 mg capsule,delayed release(DR/EC) 40 mg PO DAILY rosuvastatin 40 mg tablet 40 mg PO QHS metoprolol tartrate 25 mg tablet 25 mg PO BID Referrals / Follow Up: Jess Rosas [facility], [facility] [employer] [Primary Care Provider] - Disposition Disposition (needs filled in before D/C Order can be placed): Home, Self Care 05/26/24 1350 Marcos Lovelace DO CC: Jie Palacio; Hanna Hammond; [facility] [employer] Jess Rosas; Alvin Ward; Ashanti Leslie MD; Mariana Stiles MD; Nilo Hill MD; Dr. Radha Leyva MD; Dr. Christiano Garcia MD; Dr. Mary Walls MD; Dr. Abhay Sin MD; Dr. Washington Masters MD; Dr. Иван Rutledge MD; Dr. Tigre Masterson DO; Dr. Benja Ivey MD; Dr. Bonnie Vicente MD; Dr. Joi Woodson MD; Dr. Ozzie Gibbs MD; Dr. Sabas Piedra MD; Dr. Kaylan Paulino MD; Renee Beck DO; Ravi Fonseca MD Signed Normal [facility] Echocardiogram study reportO rdered By: Tom Medina on 05-26-2024 Study report [facility] [address] [place] [address] Echo Complete 05/26/24 0830 MR#: [id number] Acct: [id number] Name: HAYDEN PENDLETON Rep #:[id number] : 1965 59 From: Tom Ly Attending Dr: Dr. Marcos Lovelace DO Status: ADM DAJA Ordering Dr: Joi Woodson MD Date: 05/25/24 Location: U Sex: M C Admitted: 05/25/24 Reason For Study : TIA/CVA Procedure This was a 2D Doppler, Color Flow transthoracic echocardiogram. Exam performed portable in patient room. Left Ventricle Normal LV size. Moderate concentric left ventricular hypertrophy. Left ventricular systolic function is normal. The left ventricular ejection fraction is 60 %. Stage 1 diastolic dysfunction. No regional wall motion abnormalities noted. Right Ventricle Normal RV size. Normal systolic function. Atria Normal left atrium. Normal right atrium. Bubble contrast study is negative for PFO/ASD. Mitral Valve Normal mitral valve. Tricuspid Valve Normal tricuspid valve. Aortic Valve Trisinus/trileaflet aortic valve. Mild focal aortic valve calcification. Pulmonic Valve Normal pulmonic valve. Great Vessels Normal aortic root. The pulmonary artery is normal size. Inferior vena cava collapse with respiration. Pericardium/Pleural No pericardial effusion. Medication Performed a rapid injection of agitated mix of 9 cc saline and 1cc air to assessfor atrial septal defect. MMode/2D Measurements & Calculations LVIDd: 3.9 cm IVSd: 1.6 cm Ao root diam: 3.0 cm LVIDs: 2.7 cm LVPWd: 1.4 cm RVDd: 3.4 cm FS: 31.2 % LAV(MOD-bp): 26.8 ml LVAd ap4: 21.9 cm2 LVAd ap2: 19.3 cm2 LAV(MOD-bp) Indexed: 12.5 ml/m2 LVLd ap4: 7.9 cm LVLd ap2: 7.9 cm LAV(MOD-sp2): 26.0 ml EDV(MOD-sp4): 51.4 ml EDV(MOD-sp2): 39.7 ml LAV(MOD-sp4): 26.9 ml EDV(sp4-el): 51.2 ml EDV(sp2-el): 40.2 ml LVAs ap4: 13.2 cm2 LVAs ap2: 11.8 cm2 LVLs ap4: 7.1 cm LVLs ap2: 6.8 cm ESV(MOD-sp4): 21.6 ml ESV(MOD-sp2): 17.4 ml ESV(sp4-el): 20.8 ml ESV(sp2-el): 17.5 ml EF(MOD-sp4): 57.9 % EF(MOD-sp2): 56.2 % EF(sp4-el): 59.3 % SV(MOD-sp4): 29.8 ml SV(MOD-sp2): 22.3 ml SV(sp4-el): 30.4 ml SI(MOD-sp4): 13.8 ml/m2 SI(MOD-sp2): 10.4 ml/m2 LA A4 area: 13.2 cm2 LA dimension(2D): 3.7 cm RA A4 area: 11.8 cm2 TAPSE: 1.3 cm Time Measurements MV dec time: 0.18 sec Doppler Measurements & Calculations MV E max kay: 58.5 cm/sec Lat Peak E' Kay: 10.5 cm/sec Med Peak E' Kay: 6.8 cm/sec MV A max kay: 65.4 cm/sec E/E' lat: 5.6 E/E' med: 8.6 MV E/A: 0.89 MV dec slope: 329.4 cm/sec2 Ao V2 max: 103.3 cm/sec LV V1 max: 84.5 cm/sec Ao max P.3 mmHg LV V1 max P.9 mmHg Ao V2 mean: 71.7 cm/sec LV V1 mean P.6 mmHg Ao mean P.4 mmHg LV V1 mean: 57.9 cm/sec Ao V2 VTI: 22.1 cm LV V1 VTI: 18.0 cm AV (velocity ratio): 0.82 PA V2 max: 143.5 cm/sec ECHO/Echo Complete Interpretation Summary Bubble contrast study is negative for PFO/ASD. Normal LV size. Left ventricular systolic function is normal. The left ventricular ejection fraction is 60 %. Moderate concentric left ventricular hypertrophy. Stage 1 diastolic dysfunction. Ordering Physician: Joi Woodson Referring Physician: Chucky Maya Performed By: Patrizia Rivera, ALEX 05/26/245 Date _ Tom Medina MD CC: SEBASTIÁN Rosas; Dr. Marcos Lovelace DO; Dr. Joi Woodson MD; Dr. Chucky Maya DO ~ Date Dictated: 05/26/24829 Date Transcribed: 05/26/241223 Machine Coremaker: Signed [facility] Work Phone: Electrocardiogram reportOrde red By: Tom Medina on 05-26-2024 EKG study [facility] [address] [place] [address] 12 Lead EKG 05/25/24 1233 MR#: [id number] Acct: [id number] Name: HAYDEN PENDLETON Rep #:[id number] : 1965 59 From: Tom Medina MD Attending Dr: Dr. Marcos Lovelace DO Status: ADM DAJA Ordering Dr: Chucky Maya DO Date: 5 Location: [facility] Sex: M C Admitted: 05/25/24 Test Reason : DIZZINESS Blood Pressure : */* mmHG Vent. Rate : 69 BPM Atrial Rate : 69 BPM P-R Int : 208 ms QRS Dur : 86 ms QT Int : 372 ms P-R-T Axes : 60 85 79 degrees QTcB Int : 398 ms Normal sinus rhythm Normal ECG Confirmed by TOM MEDINA MD ([id number]), video tape editor HEATHER PERALTA ([id number]) on 05/26/2024 9:33:56 AM Referred By: Chucky Maya Confirmed By: TOM MEDINA MD 05/26/2433 Date _ Tom Medina MD CC: SEBASTIÁN Rosas; Dr. Marcos Lovelace DO; Dr. Chucky Maya DO ~ Signed [facility] Work Phone: Eosinophil percentageOrdered By: Joi Woodson on 05-26-2024 Eosinophils/100 WBC (Bld) 4.9 % 0-5 [facility] Erythrocyte distribution wid th (RBC) [Ratio]Ordered By: Joi Woodson on 05-26-2024 Erythrocyte distribution width (RBC) [Entitic vol] 40.8 fL 35.1-43.9 [facility] Erythrocyte distribution wid th ratioOrdered By: Joi Woodson on 05-26-2024 Erythrocyte distribution width (RBC) [Ratio] 14.1 % 11.6-14.6 [facility] Erythrocyte distribution wid th standard deviationOrdered By: Joi Woodson on 05-26-2024 Erythrocyte distribution width (RBC) [Ratio] 40.8 fl 35.1-43.9 [facility] Estimation of creatinine omar aranceOrdered By: Joi Woodson on 05-26-2024 Estimated Creatinine Clearance Calc 74.28 ml/min 50-250 [facility] GFR/1.73 sq M.predicted edgar g non-blacks MDRD (S/P/Bld) [Vol rate/Area]Ordered By: Joi Woodson 05-26-2024 Estimated GFR (MDRD) Non-Af Amer 68 >60 [facility] Comment on above: mL/min/1.73m2 CKD-EP I Creatinine Equation (2020) Glomerular filtration rate ( GFR) estimation/1.73 sq m using serum, plasma, or whole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 [facility] 2017,102;7899-6868. PMID: [id number]. Performed By: #### L 500.4100, L500.2500, L100.0100 #### [facility] [address] [place], [address] TESTOSTERONE,%F 2.73 Normal 1.50-4.20 [facility] Comment on above: Order Comment: N Result Comment: Perf ormed at: - [facility] [address] [id number] [place] Estimator: Loy Lopez PhD, Phone: [phone] Performed at: - [facility] [id number] [place] Estimator: Sylvia Chapman MD, Phone: [phone] Performed By: #### L 500.4100, L500.2500, L100.0100 #### [facility] [address] [place], [address] Vitamin D 1,25-Dihydroxyon 0 02-26-2024 VIT D 1,25 DIHY 32.0 pg/mL Normal 24.8-81.5 [facility] Comment on above: Result Comment: Perf ormed at: BN - [facility] [address] [id number] [place] Estimator: Sylvia Chapman MD, Phone: [phone] Performed By: #### L 500.4100, L500.2500, L100.0100 #### [facility] [address] [place], [place], [id number] 1,25-dihydroxyvitamin D3 [Ma ss/Vol]Ordered By: Jess Rosas on 02-24-2024 Vitamin D 1,25-Dihydroxy 32.0 pg/mL 24.8-81.5 [facility] Comment on above: Performed at: [facility] - [facility] [address] [id number] Director: Sylvia Chapman MD, Phone: [phone] Absolute neutrophil countOrd ered By: Jess Rosas on 02-24-2024 Neutrophils (Bld) [#/Vol] 3.6 10*3/uL 2.0-7.7 [facility] Albumin to globulin ratioOrd ered By: Jess Rosas on 02-24-2024 Albumin/Globulin [Mass ratio] 1.0 {ratio} 0.9-2.4 [facility] Basophil percentageOrdered B y: Jess Rosas on 02-24-2024 Basophils/100 WBC (Bld) 1.4 % High 0-1 [facility] Bilirubin Test strip Ql (U)O rdered By: Jess Rosas on 02-24-2024 Bilirubin Ql (U) Negative Negative [facility] Bilirubin, totalOrdered By: Jess Rosas on 02-24-2024 Bilirubin [Mass/Vol] 0.40 mg/dL 0.20-1.00 [facility] Comment on above: For patients on eltr ombopag therapy, use of Dimension [place] TBIL is not recommended. Blood urea nitrogen (BUN)/cr eatinine ratioOrdered By: Jess Rosas on 02-24-2024 Urea nitrogen/Creatinine [Mass ratio] 12.2 mg/mg 10-20 [facility] CBC W/Diff, Automatedon Absolute Lymph 2.94 X10 3/uL Normal 0.83-4.51 [facility] Comment on above: Performed By: #### L 501.9985, L400.0001, L100.0100, L500.4100, L500.4050, L503.0105, L501.9520, L501.9910, L3300.0960, L3100.5310 #### [facility] [address] [place], [place], [phone] (771) Absolute Neut 3.6 X10 3/uL Normal 2.0-7.7 [facility] Comment on above: Performed By: #### L 501.9985, L400.0001, L100.0100, L500.4100, L500.4050, L503.0105, L501.9520, L501.9910, L3300.0960, L3100.5310 #### [facility] [address] [place], [place], [phone] (973) Basophils/100 WBC (Bld) 1.4 % High 0-1 [facility] Comment on above: Performed By: #### L 501.9985, L400.0001, L100.0100, L500.4100, L500.4050, L503.0105, L501.9520, L501.9910, L3300.0960, L3100.5310 #### [facility] [address] [place], [place], [phone] (722) Eosinophils/100 WBC (Bld) 5.6 % High 0-5 [facility] Comment on above: Performed By: #### L 501.9985, L400.0001, L100.0100, L500.4100, L500.4050, L503.0105, L501.9520, L501.9910, L3300.0960, L3100.5310 #### [facility] [address] [place], [address] Erythrocyte distribution width (RBC) [Ratio] 14.3 % Normal 11.6-14.6 [facility] Comment on above: Performed By: #### L 501.9985, L400.0001, L100.0100, L500.4100, L500.4050, L503.0105, L501.9520, L501.9910, L3300.0960, L3100.5310 #### [facility] [address] [place], [address] Hematocrit (Bld) [Volume fraction] 45.8 % Normal 40-54 [facility] Comment on above: Performed By: #### L 501.9985, L400.0001, L100.0100, L500.4100, L500.4050, L503.0105, L501.9520, L501.9910, L3300.0960, L3100.5310 #### [facility] [address] [facility] [place], [address] Hemoglobin (Bld) [Mass/Vol] 15.9 g/dL Normal 13.0-16.5 [facility] Comment on above: Performed By: #### L 501.9985, L400.0001, L100.0100, L500.4100, L500.4050, L503.0105, L501.9520, L501.9910, L3300.0960, L3100.5310 #### [facility] [address] [facility] [place], [address] IG% 0.400 Normal 0.0-0.9 [facility] Comment on above: Result Comment: IG% - Immature Granulocytes (promyelocytes, myelocytes and metamyelocytes) > 1% indicates that a LEFT SHIFT is Present. Performed By: #### L 501.9985, L400.0001, L100.0100, L500.4100, L500.4050, L503.0105, L501.9520, L501.9910, L3300.0960, L3100.5310 #### [facility] [address] [place], [address] Lymphocytes/100 WBC (Bld) 38.4 % Normal 19-41 [facility] Comment on above: Performed By: #### L 501.9985, L400.0001, L100.0100, L500.4100, L500.4050, L503.0105, L501.9520, L501.9910, L3300.0960, L3100.5310 #### [facility] [address] [place], [address] MCH (RBC) [Entitic mass] 28.2 pg Normal 27.0-32.0 [facility] Comment on above: Performed By: #### L 501.9985, L400.0001, L100.0100, L500.4100, L500.4050, L503.0105, L501.9520, L501.9910, L3300.0960, L3100.5310 #### [facility] [address] [place], [address] MCHC (RBC) [Mass/Vol] 34.7 g/dL Normal 32-36 [facility] Comment on above: Performed By: #### L 501.9985, L400.0001, L100.0100, L500.4100, L500.4050, L503.0105, L501.9520, L501.9910, L3300.0960, L3100.5310 #### [facility] [address] [place], [address] MCV (RBC) [Entitic vol] 81.3 fL Normal 80-94 [facility] Comment on above: Performed By: #### L 501.9985, L400.0001, L100.0100, L500.4100, L500.4050, L503.0105, L501.9520, L501.9910, L3300.0960, L3100.5310 #### [facility] [address] [place], [address] Monocytes/100 WBC (Bld) 6.9 % Normal 0-10 [facility] Comment on above: Performed By: #### L 501.9985, L400.0001, L100.0100, L500.4100, L500.4050, L503.0105, L501.9520, L501.9910, L3300.0960, L3100.5310 #### [facility] [address] [facility] [place], [place], [phone] ([phone] Neutrophils/100 WBC (Bld) 47.3 % Normal 47-70 [facility] Comment on above: Performed By: #### L 501.9985, L400.0001, L100.0100, L500.4100, L500.4050, L503.0105, L501.9520, L501.9910, L3300.0960, L3100.5310 #### [facility] [address] [facility] [place], [place], [phone] (157) Nucleated RBC (Bld) [#/Vol] 0 10*3/uL Normal 0-5 [facility] Comment on above: Performed By: #### L 501.9985, L400.0001, L100.0100, L500.4100, L500.4050, L503.0105, L501.9520, L501.9910, L3300.0960, L3100.5310 #### [facility] [address] [place], [place], [phone] (165) Platelet mean volume (Bld) [Entitic vol] 9.5 fL Normal 6.2-12.0 [facility] Comment on above: Performed By: #### L 501.9985, L400.0001, L100.0100, L500.4100, L500.4050, L503.0105, L501.9520, L501.9910, L3300.0960, L3100.5310 #### [facility] [address] [facility] [place], [place], [phone] (971) Platelets (Bld) [#/Vol] 292 10*3/uL Normal 150-450 [facility] Comment on above: Performed By: #### L 501.9985, L400.0001, L100.0100, L500.4100, L500.4050, L503.0105, L501.9520, L501.9910, L3300.0960, L3100.5310 #### [facility] [address] [place], [place], [phone] (684) RBC (Bld) [#/Vol] 5.63 10*6/uL Normal 4.6-6.2 [facility] Comment on above: Performed By: #### L 501.9985, L400.0001, L100.0100, L500.4100, L500.4050, L503.0105, L501.9520, L501.9910, L3300.0960, L3100.5310 #### [facility] [address] [place], [address] (179) RDW SD 41.4 fl Normal 35.1-43.9 [facility] Comment on above: Performed By: #### L 501.9985, L400.0001, L100.0100, L500.4100, L500.4050, L503.0105, L501.9520, L501.9910, L3300.0960, L3100.5310 #### [facility] [address] [place], [place], [phone] (278) WBC (Bld) [#/Vol] 7.7 10*3/uL Normal 4.4-11.0 [facility] Comment on above: Performed By: #### L 501.9985, L400.0001, L100.0100, L500.4100, L500.4050, L503.0105, L501.9520, L501.9910, L3300.0960, L3100.5310 #### [facility] [address] [place], [place], [id number] Carbon dioxide measurementOr dered By: Jess Rosas on 02-24-2024 CO2 [Moles/Vol] 31.0 mmol/L 21.0-32.0 [facility] Chloride measurementOrdered By: Jess Rosas on 02-24-2024 Chloride [Moles/Vol] 103 mmol/L 98-107 [facility] Comprehensive Metabolic Prof ilon 02-24-2024 Albumin [Mass/Vol] 4.0 g/dL Normal 3.2-5.0 [facility] Comment on above: Performed By: #### L 501.9985, L400.0001, L100.0100, L500.4100, L500.4050, L503.0105, L501.9520, L501.9910, L3300.0960, L3100.5310 #### [facility] [address] [place], [place], [id number] Albumin/Globulin [Mass ratio] 1.0 {ratio} Normal 0.9-2.4 [facility] Comment on above: Performed By: #### L 501.9985, L400.0001, L100.0100, L500.4100, L500.4050, L503.0105, L501.9520, L501.9910, L3300.0960, L3100.5310 #### [facility] [address] [place], [place], [id number] ALK P 76 U/L Normal 45-117 [facility] Comment on above: Performed By: #### L 501.9985, L400.0001, L100.0100, L500.4100, L500.4050, L503.0105, L501.9520, L501.9910, L3300.0960, L3100.5310 #### [facility] [address] [place], [address] ALT [Catalytic activity/Vol] 44 U/L Normal 16-61 [facility] Comment on above: Performed By: #### L 501.9985, L400.0001, L100.0100, L500.4100, L500.4050, L503.0105, L501.9520, L501.9910, L3300.0960, L3100.5310 #### [facility] [address] [place], [address] AST [Catalytic activity/Vol] 25 U/L Normal 15-37 [facility] Comment on above: Performed By: #### L 501.9985, L400.0001, L100.0100, L500.4100, L500.4050, L503.0105, L501.9520, L501.9910, L3300.0960, L3100.5310 #### [facility] [address] [place], [address] (736) Bilirubin [Mass/Vol] 0.40 mg/dL Normal 0.20-1.00 [facility] Comment on above: Result Comment: For patients on eltrombopag therapy, use of Dimension [place] TBIL is not recommended. Performed By: #### L 501.9985, L400.0001, L100.0100, L500.4100, L500.4050, L503.0105, L501.9520, L501.9910, L3300.0960, L3100.5310 #### [facility] [address] [place], [place], [phone] (700) BUN/CRE 12.2 RATIO Normal 10-20 [facility] Comment on above: Performed By: #### L 501.9985, L400.0001, L100.0100, L500.4100, L500.4050, L503.0105, L501.9520, L501.9910, L3300.0960, L3100.5310 #### [facility] [address] [place], [address] CA,Total 9.4 mg/dL Normal 8.5-10.1 [facility] Comment on above: Performed By: #### L 501.9985, L400.0001, L100.0100, L500.4100, L500.4050, L503.0105, L501.9520, L501.9910, L3300.0960, L3100.5310 #### [facility] [address] [place], [address] Chloride [Moles/Vol] 103 mmol/L Normal 98-107 [facility] Comment on above: Performed By: #### L 501.9985, L400.0001, L100.0100, L500.4100, L500.4050, L503.0105, L501.9520, L501.9910, L3300.0960, L3100.5310 #### [facility] [address] [place], [address] CO2 [Moles/Vol] 31.0 mmol/L Normal 21.0-32.0 [facility] Comment on above: Performed By: #### L 501.9985, L400.0001, L100.0100, L500.4100, L500.4050, L503.0105, L501.9520, L501.9910, L3300.0960, L3100.5310 #### [facility] [address] [place], [address] Creatinine [Mass/Vol] 1.23 mg/dL Normal 0.70-1.30 [facility] Comment on above: Result Comment: The validity of the calculated GFR GFRAA in patients over 70 years has not been determined. Clinical correlation is essential. Performed By: #### L 501.9985, L400.0001, L100.0100, L500.4100, L500.4050, L503.0105, L501.9520, L501.9910, L3300.0960, L3100.5310 #### [facility] [address] [place], [address] EST GFR - AA 78 mL/min Normal >60 [facility] Comment on above: Result Comment: Afri can [place]ral[place]arian GFR Calc Performed By: #### L 501.9985, L400.0001, L100.0100, L500.4100, L500.4050, L503.0105, L501.9520, L501.9910, L3300.0960, L3100.5310 #### [facility] [address] [place], [address] GAP 5 Normal 5-15 [facility] Comment on above: Performed By: #### L 501.9985, L400.0001, L100.0100, L500.4100, L500.4050, L503.0105, L501.9520, L501.9910, L3300.0960, L3100.5310 #### [facility] [address] [facility] [place], [place], [phone] (318 GFR/1.73 sq M.predicted among non-blacks MDRD (S/P/Bld) [Vol rate/Area] 65 mL/min/{1.73_m2} Normal >60 [facility] Comment on above: Result Comment: Non- GFR Calc Performed By: #### L 501.9985, L400.0001, L100.0100, L500.4100, L500.4050, L503.0105, L501.9520, L501.9910, L3300.0960, L3100.5310 #### [facility] [address] [place], [place], [id number] (472) Globulin (S) [Mass/Vol] 3.9 g/dL Normal 2.2-4.2 [facility] Comment on above: Performed By: #### L 501.9985, L400.0001, L100.0100, L500.4100, L500.4050, L503.0105, L501.9520, L501.9910, L3300.0960, L3100.5310 #### [facility] [address] [place], [place], [phone] (856) Glucose [Mass/Vol] 97 mg/dL Normal 74-106 [facility] Comment on above: Performed By: #### L 501.9985, L400.0001, L100.0100, L500.4100, L500.4050, L503.0105, L501.9520, L501.9910, L3300.0960, L3100.5310 #### [facility] [address] [place], [address] Potassium [Moles/Vol] 4.4 mmol/L Normal 3.5-5.1 [facility] Comment on above: Performed By: #### L 501.9985, L400.0001, L100.0100, L500.4100, L500.4050, L503.0105, L501.9520, L501.9910, L3300.0960, L3100.5310 #### [facility] [address] [place], [address] Sodium [Moles/Vol] 139 mmol/L Normal 136-145 [facility] Comment on above: Performed By: #### L 501.9985, L400.0001, L100.0100, L500.4100, L500.4050, L503.0105, L501.9520, L501.9910, L3300.0960, L3100.5310 #### [facility] [address] [place], [address] T PROT 7.9 g/dL Normal 6.4-8.2 [facility] Comment on above: Performed By: #### L 501.9985, L400.0001, L100.0100, L500.4100, L500.4050, L503.0105, L501.9520, L501.9910, L3300.0960, L3100.5310 #### [facility] [address] [place], [address] Urea nitrogen [Mass/Vol] 15 mg/dL Normal 7-18 [facility] Comment on above: Performed By: #### L 501.9985, L400.0001, L100.0100, L500.4100, L500.4050, L503.0105, L501.9520, L501.9910, L3300.0960, L3100.5310 #### [facility] [place], [address] Eosinophil percentageOrdered By: Jess Rosas on 02-24-2024 Eosinophils/100 WBC (Bld) 5.6 % High 0-5 [facility] Epithelial cells.squamous LM Ql (Urine sed)Ordered By: Jess Rosas on 02-24-2024 Epithelial cells.squamous LM.HPF (Urine sed) [#/Area] 0 /[HPF] 0-5 [facility] Erythrocyte distribution wid th ratioOrdered By: Jess Rosas on 02-24-2024 Erythrocyte distribution width (RBC) [Ratio] 14.3 % 11.6-14.6 [facility] Erythrocyte distribution wid th standard deviationOrdered By: Jess Rosas on 02-24-2024 Erythrocyte distribution width (RBC) [Entitic vol] 41.4 fL 35.1-43.9 [facility] Estimated glomerular filtrat ion rate (GFR) AmericanOrdered By: Jess Rosas on 02-24-2024 Estimated GFR (MDRD) Amer 78 mL/min >60 [facility] Comment on above: GFR Calc Glomerular filtration rate ( GFR) estimationOrdered By: Jess Rosas on 02-24-2024 Estimated GFR (MDRD) Non-Af Amer 65 mL/min >60 [facility] Comment on above: Non- GFR Calc Glucose Ql (U)Ordered By: Peter Rosas on 02-24-2024 Urine Glucose (UA) Normal mg/dl Normal [facility] Glucose measurementOrdered B y: Jess Rosas on 02-24-2024 Glucose [Mass/Vol] 97 mg/dL 74-106 [facility] Hematocrit Auto (Bld) [Volum e fraction]Ordered By: Jess Rosas on 02-24-2024 Hematocrit (Bld) [Volume fraction] 45.8 % 40-54 [facility] Hemoglobin A1con 02-24-2024 HbA1c (Bld) [Mass fraction] 6.0 % High 3.8-5.6 [facility] Comment on above: Result Comment: Norm al < 5.7 % Prediabetic 5.7 - 6.4 % Diabetic >or= 6.5 % Please note range changes. Performed By: #### L 501.9985, L400.0001, L100.0100, L500.4100, L500.4050, L503.0105, L501.9520, L501.9910, L3300.0960, L3100.5310 #### [facility] [place], [address] Hemoglobin A1c percentageOrd ered By: Jess Rosas on 02-24-2024 HbA1c (Bld) [Mass fraction] 6.0 % High 3.8-5.6 [facility] Comment on above: Normal < 5.7 % Predi abetic 5.7 - 6.4 % Diabetic >or= 6.5 % Please note range changes. Hemoglobin measurementOrdere d By: Jess Rosas on 02-24-2024 Hemoglobin (Bld) [Mass/Vol] 15.9 g/dL 13.0-16.5 [facility] High density lipoprotein (HD L) measurementOrdered By: Jess Rosas on 02-24-2024 Cholesterol in HDL [Mass/Vol] 38 mg/dL Low >40 [facility] Comment on above: The drugs N-Acetylcy steine and Metamizole may falsely depress this assay. Reference Range HDL <40 mg/dL Low HDL Cholesterol HDL >or= 60 mg/dL High HDL Cholesterol Hyaline casts LM.LPF (Urine sed) [#/Area]Ordered By: Jess Rosas on 02-24-2024 Hyaline casts LM Ql (Urine sed) 10-25 SEEN /lpf 0-5 [facility] Immature granulocytes/100 WB C Auto (Bld)Ordered By: Jess Rosas on 02-24-2024 Immature granulocytes/100 WBC (Bld) 0.400 % 0.0-0.9 [facility] Comment on above: IG% - Immature Granu locytes (promyelocytes, myelocytes and metamyelocytes) > 1% indicates that a LEFT SHIFT is Present. Ketones Test strip Ql (U)Ord ered By: Jses Rosas on 02-24-2024 Ketones Ql (U) Negative Negative [facility] - Chemistry and C hemistry - challengeOrdered By: Jess Rosas on 02-24-2024 AST [Catalytic activity/Vol] 25 U/L 15-37 [facility] Lipid Profileon 02-24-2024 Cholesterol [Mass/Vol] 233 mg/dL High 200 [facility] Comment on above: Result Comment: <200 mg/dL Desirable 200-240 mg/dL Borderline >240 mg/dL High Risk Performed By: #### L 501.9985, L400.0001, L100.0100, L500.4100, L500.4050, L503.0105, L501.9520, L501.9910, L3300.0960, L3100.5310 #### [facility] [address] [place], [address] Cholesterol in HDL [Mass/Vol] 38 mg/dL Low [facility] Comment on above: Result Comment: The drugs N-Acetylcysteine and Metamizole may falsely depress this assay. Reference Range HDL <40 mg/dL Low HDL Cholesterol HDL >or= 60 mg/dL High HDL Cholesterol Performed By: #### L 501.9985, L400.0001, L100.0100, L500.4100, L500.4050, L503.0105, L501.9520, L501.9910, L3300.0960, L3100.5310 #### [facility] [address] [place], [address] Cholesterol in LDL [Mass/Vol] 120 mg/dL Normal 0-130 [facility] Comment on above: Performed By: #### L 501.9985, L400.0001, L100.0100, L500.4100, L500.4050, L503.0105, L501.9520, L501.9910, L3300.0960, L3100.5310 #### [facility] [address] [place], [address] Cholesterol in VLDL [Mass/Vol] 75 mg/dL High 5-40 [facility] Comment on above: Performed By: #### L 501.9985, L400.0001, L100.0100, L500.4100, L500.4050, L503.0105, L501.9520, L501.9910, L3300.0960, L3100.5310 #### [facility] [address] [place], [address] Triglyceride [Mass/Vol] 376 mg/dL High [facility] Comment on above: Result Comment: The drugs N-Acetylcysteine and Metamizole may falsely depress this assay. Serum Triglycerides Reference Interval Normal <150 mg/dL Borderline high 150 - 199 mg/dL High 200 - 499 mg/dL Very High > or = 500 mg/dL Performed By: #### L 501.9985, L400.0001, L100.0100, L500.4100, L500.4050, L503.0105, L501.9520, L501.9910, L3300.0960, L3100.5310 #### [facility] [address] [place], [address] Low density lipoprotein (LDL ) cholesterol measurementOrdered By: Jess Rosas on 02-24-2024 Cholesterol in LDL [Mass/Vol] 120 mg/dL 0-130 [facility] Lymphocytes Auto (Unsp spec) [#/Vol]Ordered By: Jess Rosas on 02-24-2024 Lymphocytes (Bld) [#/Vol] 2.94 10*3/uL 0.83-4.51 [facility] Lymphocytes/100 WBC Auto (Un sp spec)Ordered By: Jess Rosas on 02-24-2024 Lymphocytes/100 WBC (Bld) 38.4 % 19-41 [facility] MCV (mean corpuscular volume ) determinationOrdered By: Jess Rosas on 02-24-2024 MCV (RBC) [Entitic vol] 81.3 fL 80-94 [facility] Mean corpuscular hemoglobin (MCH) determinationOrdered By: Jess Rosas on 02-24-2024 MCH (RBC) [Entitic mass] 28.2 pg 27.0-32.0 [facility] Mean corpuscular hemoglobin concentration (MCHC) determinationOrdered By: Jess Rosas on 02-24-2024 MCHC (RBC) [Mass/Vol] 34.7 g/dL 32-36 [facility] Mean platelet volume determi nationOrdered By: Jess Rosas on 02-24-2024 Platelet mean volume (Bld) [Entitic vol] 9.5 fL 6.2-12.0 [facility] Microscopic analysis of urin e for red blood cells (RBC)Ordered By: Jess Rosas on 02-24-2024 Urine RBC 0-5 SEEN /hpf 0-5 [facility] Monocyte percentageOrdered B y: Jess Rosas on 02-24-2024 Monocytes/100 WBC (Bld) 6.9 % 0-10 [facility] Mucus LM Ql (Urine sed)Order ed By: Jess Rosas on 02-24-2024 Mucus Ql (Urine sed) 1+ /hpf [facility] Neutrophil percentageOrdered By: Jess Rosas on 02-24-2024 Neutrophils/100 WBC (Bld) 47.3 % 47-70 [facility] Nitrite Test strip Ql (U)Ord ered By: Jess Rosas on 02-24-2024 Nitrite Ql (U) Negative Negative [facility] Nucleated red blood cell per centageOrdered By: Jess Rosas on 02-24-2024 Nucleated RBC/100 WBC (Bld) [Ratio] 0 % 0-5 [facility] PSA,Total - Annual Screenon 02-24-2024 PSA,TOT SCREEN 3.23 ng/mL Normal 0.00-4.00 [facility] Comment on above: Result Comment: This test was performed using the TPSA assay method for the [employer] chemistry system. Values obtained with different assay methods cannot be used interchangably. When changing PSA assays in the course of monitoring a patient, additional sequential testing should be carried out to confirm baseline values. Performed By: #### L 500.4100, L500.2500, L100.0100 #### [facility] [address] [place], [place], [id number] Platelet countOrdered By: Peter Rosas on 01-02-2025 Platelets (Bld) [#/Vol] 292 10*3/uL 150-450 [facility] Potassium measurementOrdered By: Jess Rosas on 02-24-2024 Potassium [Moles/Vol] 4.4 mmol/L 3.5-5.1 [place] Protein Test strip Ql (U)Ord ered By: Jess Rosas on 02-24-2024 Protein Ql (U) 15 mg/dl High Negative [facility] RBC Auto (Bld) [#/Vol]Ordere d By: Jess Rosas on 02-24-2024 RBC (Bld) [#/Vol] 5.63 10*6/uL 4.6-6.2 [facility] Screening prostate specific antigen (PSA) measurementOrdered By: Jess Rosas on 02-24-2024 Prostate Specific Antigen Screen 3.23 ng/mL 0.00-4.00 [facility] Comment on above: This test was perfor med using the TPSA assay method for theDimension chemistry system. Values obtained with differentassay methods cannot be used interchangably.When changing PSA assays in the course of monitoring apatient, additional sequential testing should be carriedout to confirm baseline values. Serum anion gap measurementO rdered By: Jess Rosas on 02-24-2024 Anion gap [Moles/Vol] 5 mmol/L 5-15 [place] Serum globulin measurementOr dered By: Jess Rosas on 02-24-2024 Globulin (S) [Mass/Vol] 3.9 g/dL 2.2-4.2 [facility] Serum or plasma alanine hollins otransferase (ALT) measurementOrdered By: Jess Rosas on 02-24-2024 ALT [Catalytic activity/Vol] 44 U/L 16-61 [facility] Serum or plasma albumin alexandrea urement (mass/volume)Ordered By: Jess Rosas on 02-24-2024 Albumin [Mass/Vol] 4.0 g/dL 3.2-5.0 [facility] Serum or plasma alkaline emmanuel sphatase measurementOrdered By: Jess Rosas on 02-24-2024 ALP [Catalytic activity/Vol] 76 U/L 45-117 [facility] Serum or plasma calcium alexandrea urement (mass/volume)Ordered By: Jess Rosas on 02-24-2024 Calcium [Mass/Vol] 9.4 mg/dL 8.5-10.1 [facility] Serum or plasma cholesterol measurement (mass/volume)Ordered By: Jess Rosas on 02-24-2024 Cholesterol [Mass/Vol] 233 mg/dL High <200 [facility] Comment on above: <200 mg/dL Desirable 200-240 mg/dL Borderline >240 mg/dL High Risk Serum or plasma creatinine m easurement (mass/volume)Ordered By: Jess Rosas on 02-24-2024 Creatinine [Mass/Vol] 1.23 mg/dL 0.70-1.30 [place] Comment on above: The validity of the calculated GFR & GFRAA in patients over 70 years has not been determined. Clinical correlation is essential. Serum or plasma urea nitroge n measurement (mass/volume)Ordered By: Jess Rosas on 02-24-2024 Urea nitrogen [Mass/Vol] 15 mg/dL 7-18 [facility] Sodium levelOrdered By: Jess Rosas on 02-24-2024 Sodium [Moles/Vol] 139 mmol/L 136-145 [facility] TSH QnOrdered By: Jess Rosas on 02-24-2024 Thyroid Stimulating Hormone (TSH) 1.070 uIU/mL 0.358-3.740 [facility] Testosterone Free [Mass/Vol] Ordered By: Jess Rosas on 02-24-2024 Free Testosterone 8.11 ng/dL 5.00-21.00 [facility] Testosterone Free/Testostero ne.total [Mass fraction]Ordered By: Jess Rosas on 02-24-2024 Percent Free Testosterone 2.73 % 1.50-4.20 [facility] Comment on above: Performed at: CB - L ContractRoom [address] [id number] Director: Loy Lopez PhD, Phone: [phone] at: [facility] Lab[address] [id number] Director: Sylvia Chapman MD, Phone: [phone] Testosterone, totalOrdered B y: Jess Rosas on 02-24-2024 Testosterone [Mass/Vol] 297 ng/dL 264-916 [facility] Comment on above: Adult male reference interval is based on a population ofhealthy nonobese males (BMI <30) between 19 and 39 yearsold. jason Hartman.al. JCEM 2017,102;5237-5386. PMID:[id number]. Thyroid Stim Hormone (TSH)on 02-24-2024 TSH 1.070 uIU/mL Normal 0.358-3.740 [facility] Comment on above: Performed By: #### L 501.9985, L400.0001, L100.0100, L500.4100, L500.4050, L503.0105, L501.9520, L501.9910, L3300.0960, L3100.5310 #### [facility] [address] [place], [address] Total proteinOrdered By: Mariah Roass on 02-24-2024 Protein [Mass/Vol] 7.9 g/dL 6.4-8.2 [facility] Triglycerides measurementOrd ered By: Jess Rosas on 02-24-2024 Triglyceride [Mass/Vol] 376 mg/dL High <199 [facility] Comment on above: The drugs N-Acetylcy steine and Metamizole may falsely depress this assay.Serum Triglycerides Reference Interval Normal <150 mg/dL Borderline high 150 - 199 mg/dL High 200 - 499 mg/dL Very High > or = 500 mg/dL Urinalysis, Completeon 02-23 CAST,HYALINE 10-25 SEEN Normal 0-5 [facility] Comment on above: Order Comment: CLEAN CATCH Performed By: #### L 501.9985, L400.0001, L100.0100, L500.4100, L500.4050, L503.0105, L501.9520, L501.9910, L3300.0960, L3100.5310 #### [facility] [address] [place], [address] Mucus Ql (Urine sed) 1+ /hpf Normal [facility] Comment on above: Order Comment: CLEAN CATCH Performed By: #### L 501.9985, L400.0001, L100.0100, L500.4100, L500.4050, L503.0105, L501.9520, L501.9910, L3300.0960, L3100.5310 #### [facility] [address] [place], [place], [id number] RBC 0-5 SEEN Normal 0-5 [facility] Comment on above: Order Comment: CLEAN CATCH Performed By: #### L 501.9985, L400.0001, L100.0100, L500.4100, L500.4050, L503.0105, L501.9520, L501.9910, L3300.0960, L3100.5310 #### [facility] [address] [place], [address] WBC 0-5 SEEN Normal 0-5 [facility] Comment on above: Order Comment: CLEAN CATCH Performed By: #### L 501.9985, L400.0001, L100.0100, L500.4100, L500.4050, L503.0105, L501.9520, L501.9910, L3300.0960, L3100.5310 #### [facility] [address] [place], [address] BACTERIA 0 SEEN Normal None Seen [facility] Comment on above: Order Comment: CLEAN CATCH Performed By: #### L 501.9985, L400.0001, L100.0100, L500.4100, L500.4050, L503.0105, L501.9520, L501.9910, L3300.0960, L3100.5310 #### [facility] [address] [place], [address] EPI,SQUAMOUS 0 SEEN Normal 0-5 [facility] Comment on above: Order Comment: CLEAN CATCH Performed By: #### L 501.9985, L400.0001, L100.0100, L500.4100, L500.4050, L503.0105, L501.9520, L501.9910, L3300.0960, L3100.5310 #### [facility] [address] [place], [place], [id number] Urine blood detectionOrdered By: Jess Rosas on 02-24-2024 Urine Occult Blood 10 /ul High Negative [facility] Urine clarityOrdered By: Mariah Rosas on 02-24-2024 Clarity (U) Clear Clear [facility] Urine color determinationOrd ered By: Jess Rosas on 02-24-2024 Color (U) Yellow Yellow [facility] Urine leukocyte esterase det ection by dipstickOrdered By: Jess Rosas on 02-24-2024 Leukocyte esterase Test strip Ql (U) 100 /ul High Negative [facility] Urine pHOrdered By: Jess barrientos on 02-24-2024 pH (U) 6.0 [pH] 5.0 - 8.0 [facility] Urine sediment bacteria coun t by microscopy (number/high power field)Ordered By: Jess Rosas on 02-24-2024 Bacteria LM.HPF (Urine sed) [#/Area] 0 /[HPF] None Seen [facility] Urine specific gravity measu rementOrdered By: Jess Rossa on 02-24-2024 Specific gravity (U) [Rel density] 1.015 1.002-1.030 [facility] Urobilinogen Ql (U)Ordered B y: Jess Rosas on 02-24-2024 Urobilinogen (U) [Mass/Vol] 1 mg/dL High Normal [facility] Very low density lipoprotein (VLDL) cholesterol measurementOrdered By: Jess Rosas on 02-24-2024 VLDL Cholesterol 75 mg/dL High 5-40 [facility] Vitamin B12on 02-24-2024 Cobalamin (Vitamin B12) [Mass/Vol] 351 pg/mL Normal 211-911 [facility] Comment on above: Performed By: #### L 500.4100, L500.2500, L100.0100 #### [facility] [address] [place], [address] Vitamin B12 measurementOrder ed By: Jess Rosas on 02-24-2024 Cobalamin (Vitamin B12) [Mass/Vol] 351 pg/mL 211-911 [facility] White blood cell (WBC) count Ordered By: Jess Deisy on 02-24-2024 WBC (Bld) [#/Vol] 7.7 10*3/uL 4.4-11.0 [facility] White blood cell countOrdere d By: Jess Rosas on 02-24-2024 Urine WBC 0-5 SEEN /hpf 0-5 [facility] CNCOon 01-07-2024 CNCO Letter Text Normal [facility] HAYDEN PENDLETON ([id number]) 1965 Date Time Provider Department 01/07/24 FELICITAS CHAVEZ [facility] During your visit today, we recorded the following information about you: Celia Smallwood LPN 01/07/2024 7:13 AM Signed Last seen 02/23/2023. Please call patient with annual appointment. Thank you! KIRAN Alonso September R 01/07/2024 7:28 AM Signed Scheduled patient with Dr. Chavez for 06-06-24 at 3 pm in [place]. Sent [employer] message and letter to home address. Thanks Maira oPpe Allergies As of Date: 01/07/2024 Noted Allergy Reaction OXYCOTIN (OXYCODONE) 04/24/2015 2 - Rash PREDNISONE 04/24/2015 5 - Intolerance Comments: flushing of skin-steriods Date Reviewed: 11/04/2023 Reviewed by: Estefani Perez MA - Fully Assessed Reason for Visit: Appointment [186] Prescriptions as of 01/07/2024 - isosorbide mononitrate ER (IMDUR) 30 mg 24 hr tablet Take 1 tablet by mouth once daily. - rosuvastatin (CRESTOR) 20 mg tablet Take 1 tablet by mouth daily at bedtime. - cholecalciferol, vitamin D3, (VITAMIN D3 ORAL) Take by mouth once daily. - metoprolol tartrate, short acting, (LOPRESSOR) 25 mg tablet Take 1 tablet by mouth two times a day. - ezetimibe (ZETIA) 10 mg tablet Take 1 tablet by mouth once daily. - nabumetone (RELAFEN) 500 mg tablet Take by mouth. - omeprazole (PRILOSEC) 40 mg capsule Take 40 mg by mouth as needed. - pantoprazole DR (PROTONIX) 20 mg tablet Take 20 mg by mouth once daily. - aspirin 81 mg chewable tablet Take 1 tablet by mouth once daily. - acetaminophen (TYLENOL) 500 mg tablet Take 2 tablets by mouth every 6 hours as needed for pain. - melatonin 3 mg tablet Take 1 tablet by mouth at bedtime as needed (insomnia). - nicotine (NICODERM) 14 mg/24 hr Apply 1 Patch as directed once daily. - citalopram (CELEXA) 40 mg tablet Take 40 mg by mouth once daily. - albuterol HFA (PROVENTIL HFA, VENTOLIN HFA) 90 mcg/actuation inhaler Inhale 2 Puffs as instructed. 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 *10/22/2020 Nicotine use disorder, F17.2 [F17.200] 10/26/2020 S/P CABG x 4 [Z95.1] 10/28/2020 Knee pain [M25.569] 01/14/2021 Anxiety [F41.9] 01/14/2021 Arteriosclerosis of coronary artery [I25.10] 01/14/2021 Arthritis [M19.90] 01/14/2021 Back pain [M54.9] 01/14/2021 Depressive disorder [F32.A] 01/14/2021 Difficulty balancing [R29.818] 01/14/2021 Gastric ulcer [K25.9] 01/14/2021 Hyperlipidemia [E78.5] 01/14/2021 Hypertension [I10] 01/14/2021 Olecranon bursitis of right elbow [M70.21] 01/14/2021 Positive antinuclear antibody [R76.8] 01/14/2021 Postoperative pain [G89.18] 01/14/2021 Shortness of breath [R06.02] 01/14/2021 Shoulder pain [M25.519] 01/14/2021 Sleep apnea [G47.30] 01/14/2021 Tachycardia [R00.0] 01/14/2021 Vertigo [R42] 01/14/2021 CAD (coronary artery disease) [I25.10] 02/05/2023 Dyslipidemia [E78.5] 02/05/2023 HTN (hypertension) [I10] 02/05/2023 Hx of CABG [Z95.1] 02/05/2023 Encounter Status:Closed by CELIA SMALLWOOD on 01/07/24 Normal [facility] XR CERVICAL 4V AP/LAT/OBLon 11-09-2023 XR CERVICAL 4V AP/LAT/OBL * * *Final Report* * * DATE OF EXAM: Nov 09 2023 4:28PM [id number] - XR CERVICAL 4V AP/LAT/OBL / PROCEDURE REASON: multiple diagnoses * * * * Physician Interpretation * * * * EXAM TITLE: XR CERVICAL 4V AP/LAT/OBL EXAM DATE/TIME: 11/09/2023 4:28 PM COMPARISON: None. CLINICAL INDICATION/HISTORY: Pain. TECHNIQUE: AP, lateral and oblique views of the cervical spine are presented. FINDINGS: No acute fractures or subluxations are noted. The disc spaces are grossly preserved. There is mild to moderate osteophyte formation in the lower cervical spine. The neural foramina are patent. The prevertebral soft tissues are normal. IMPRESSION: Cervical spine degenerative changes as described above. Machine Coremaker: PSCB Transcribe Date/Time: Nov 11 2023 2:40P Dictated by : JEROD SEGOVIA MD This examination was interpreted and the report reviewed and electronically signed by: JEROD SEGOVIA MD on Nov 11 2023 2:45PM EST [id number] Normal [facility] XR FOOT 3V AP/LAT/OBL BILon 11-09-2023 XR FOOT 3V AP/LAT/OBL ANDREEA * * *Final Report* * * DATE OF EXAM: Nov 09 2023 4:28PM [id number] - XR FOOT 3V AP/LAT/OBL ANDREEA / PROCEDURE REASON: multiple diagnoses * * * * Physician Interpretation * * * * EXAMINATION / TECHNIQUE: XR FOOT 3V AP/LAT/OBL ANDREEA, XR HAND 3V PA/LAT/OBL ANDREEA HISTORY: looking for autoimmune dis. tested neg. for lupus pain for many years bones crack with movement no inj Chronic pain of both knees Chronic pain of both knees Chronic pain of both knees CHANDANA positive COMPARISON: None. RESULT: No fracture or malalignment in either hand or foot. The joint spaces of the hands and feet are preserved. No osseous erosion in either hand or foot. COMBINED IMPRESSION: No findings to suggest inflammatory arthropathy in either hand or foot. Machine Coremaker: PSCB Transcribe Date/Time: Nov 13 2023 4:18P Dictated by : MERCEDES GARIBAY MD This examination was interpreted and the report reviewed and electronically signed by: MERCEDES GARIBAY MD on Nov 13 2023 4:19PM EST [id number] Normal [facility] XR HAND 3V PA/LAT/OBL BILon 11-09-2023 XR HAND 3V PA/LAT/OBL ANDREEA * * *Final Report* * * DATE OF EXAM: Nov 09 2023 4:28PM [id number] - XR HAND 3V PA/LAT/OBL ANDREEA / PROCEDURE REASON: multiple diagnoses * * * * Physician Interpretation * * * * EXAMINATION / TECHNIQUE: XR FOOT 3V AP/LAT/OBL ANDREEA, XR HAND 3V PA/LAT/OBL ANDREEA HISTORY: looking for autoimmune dis. tested neg. for lupus pain for many years bones crack with movement no inj Chronic pain of both knees Chronic pain of both knees Chronic pain of both knees CHANDANA positive COMPARISON: None. RESULT: No fracture or malalignment in either hand or foot. The joint spaces of the hands and feet are preserved. No osseous erosion in either hand or foot. COMBINED IMPRESSION: No findings to suggest inflammatory arthropathy in either hand or foot. Machine Coremaker: [employer] Transcribe Date/Time: Nov 13 2023 4:18P Dictated by : MERCEDES GARIBAY MD This examination was interpreted and the report reviewed and electronically signed by: MERCEDES GARIBAY MD on Nov 13 2023 4:19PM EST [id number] Normal [facility] XR LUMBAR 3V AP/LAT/L5-S1on 11-09-2023 XR LUMBAR 3V AP/LAT/L5-S1 * * *Final Report* * * DATE OF EXAM: Nov 09 2023 4:28PM [id number] - XR LUMBAR 3V AP/LAT/L5-S1 / PROCEDURE REASON: multiple diagnoses * * * * Physician Interpretation * * * * EXAM TITLE: XR LUMBAR 3V AP/LAT/L5-S1 EXAM DATE/TIME: 11/09/2023 4:28 PM COMPARISON: None. CLINICAL INDICATION/HISTORY: Back pain. TECHNIQUE: AP, lateral and cone down lateral views of the lumbar spine are presented. FINDINGS: There are five ilc-rkq-mgvigtn lumbar vertebrae. No fracture or subluxations are noted. The disc spaces are well preserved. There is mild osteophyte formation. Others: There is a 3 mm radiopaque opacity overlying the left kidney. IMPRESSION: Lumbar spine mild degenerative changes. Machine Coremaker: JACKI Transcribe Date/Time: Nov 11 2023 12:47P Dictated by : JEROD SEGOVIA MD This examination was interpreted and the report reviewed and electronically signed by: JEROD SEGOVIA MD on Nov 11 2023 12:49PM EST [id number] Normal [facility] XR SI JTS 2V AP PELV/FERGUSO Non 11-09-2023 XR SI JTS 2V AP PELV/HARRISON * * *Final Report* * * DATE OF EXAM: Nov 09 2023 4:28PM [id number] - XR SI JTS 2V AP PELV/HARRISON / PROCEDURE REASON: multiple diagnoses * * * * Physician Interpretation * * * * PROCEDURE: SI joints INDICATION: Back pain. Positive CHANDANA TECHNIQUE: XR SI JTS 2V AP PELV/HARRISON COMPARISON: None FINDINGS: Sacroiliac joints appear normal bilaterally. No erosions, sclerosis or ankylosis. No fracture or osseous lesion. IMPRESSION: Unremarkable SI joints Machine Coremaker: [facility] Transcribe Date/Time: Nov 13 2023 8:03A Dictated by : ABHAY CHIN MD This examination was interpreted and the report reviewed and electronically signed by: ABHAY CHIN MD on Nov 13 2023 8:05AM EST [id number] Normal [facility] XR THORACIC 2V AP/LATon 10-23 XR THORACIC 2V AP/LAT * * *Final Report* * * DATE OF EXAM: Nov 09 2023 4:28PM [id number] - XR THORACIC 2V AP/LAT / PROCEDURE REASON: multiple diagnoses * * * * Physician Interpretation * * * * EXAM TITLE: XR THORACIC 2V AP/LAT EXAM DATE/TIME: 11/09/2023 4:28 PM COMPARISON: None. CLINICAL INDICATION/HISTORY: Back pain. TECHNIQUE: AP, swimmer's and lateral views of the thoracic spine are presented FINDINGS: No fractures or subluxations are noted. Disc space narrowing noted in the in superior to mid thoracic spine. There is significant osteophyte formation. There is no paraspinal mass or bony destructive process. Others: Status post median sternotomy and CABG. IMPRESSION: Thoracic spine degenerative changes. Machine Coremaker: PSCB Transcribe Date/Time: Nov 11 2023 4:24P Dictated by : JEROD SEGOVIA MD This examination was interpreted and the report reviewed and electronically signed by: JEROD SEGOVIA MD on Nov 11 2023 4:26PM EST [id number] Normal [facility] CBC W Auto Differential pane l (Bld)on 11-04-2023 Basophils (Bld) [#/Vol] 0.07 10*3/uL [facility] Basophils/100 WBC (Bld) 1.0 % [facility] Differential cell count method Nom (Bld) Auto [facility] Eosinophils (Bld) [#/Vol] 0.17 10*3/uL [facility] Eosinophils/100 WBC (Bld) 2.4 % [facility] Erythrocyte distribution width (RBC) [Ratio] 13.9 % 11.5 - 15.0 % [facility] Hematocrit (Bld) [Volume fraction] 46.3 % 39.0 - 51.0 % [facility] Hemoglobin (Bld) [Mass/Vol] 16.0 g/dL 13.0 - 17.0 g/dL [facility] Immature granulocytes (Bld) [#/Vol] [facility] Immature granulocytes/100 WBC (Bld) 0.3 % [facility] Lymphocytes (Bld) [#/Vol] 3.14 10*3/uL [facility] Lymphocytes/100 WBC (Bld) 45.1 % [facility] MCH (RBC) [Entitic mass] 28.2 pg 26. 0 - 34.0 pg [facility] MCHC (RBC) [Mass/Vol] 34.6 g/dL 30.5 - 36.0 g/dL [facility] MCV (RBC) [Entitic vol] 81.7 fL 80.0 - 100.0 fL [facility] Monocytes (Bld) [#/Vol] 0.41 10*3/uL [facility] Monocytes/100 WBC (Bld) 5.9 % [facility] Neutrophils (Bld) [#/Vol] 3.15 10*3/uL [facility] Neutrophils/100 WBC (Bld) 45.3 % [facility] Nucleated RBC (Bld) [#/Vol] [facility] Nucleated RBC/100 WBC (Bld) [Ratio] 0.0 % /100 WBC [facility] Platelet mean volume (Bld) [Entitic vol] 9.7 fL 9.0 - 12.7 fL [facility] Platelets (Bld) [#/Vol] 269 10*3/uL [facility] RBC (Bld) [#/Vol] 5.67 10*6/uL 4.20 - 6.0 0 m/uL [facility] WBC (Bld) [#/Vol] 6.96 10*3/uL [facility] Basophils (Bld) [#/Vol] 0.07 10*3/uL Normal <0.11 [facility] Comment on above: Order Comment: Speci men Type: BLOOD SPECIMENOrdering Facility: [facility] Address: [address] [place] [address] Performed By: #### 4 537-7, 09145-6 ####[facility] LABCLIA [id number] [place] [address] [place] Basophils/100 WBC (Bld) 1.0 % Normal C [facility] Comment on above: Order Comment: Speci men Type: BLOOD SPECIMENOrdering Facility: [facility] Address: [address] [place] [address] Performed By: #### 4 537-7, 49051-6 ####[facility] LABCLIA [id number] [place] [address] [place] Differential cell count method Nom (Bld) Auto Normal [facility] Comment on above: Order Comment: Speci men Type: BLOOD SPECIMENOrdering Facility: [facility] Address: [address] [place] [address] Performed By: #### 4 537-7, 90961-4 ####[facility] LABCLIA [id number] [place] [address] [place] Eosinophils (Bld) [#/Vol] 0.17 10*3/uL Normal <0.46 [facility] Comment on above: Order Comment: Speci men Type: BLOOD SPECIMENOrdering Facility: [facility] Address: [address] [place] [address] Performed By: #### 4 537-7, 06547-7 ####[facility] LABIA [id number] [place] [address] [place] Eosinophils/100 WBC (Bld) 2.4 % Normal [facility] Comment on above: Order Comment: Speci men Type: BLOOD SPECIMENOrdering Facility: [facility] Address: [address] [place] [address] Performed By: #### 4 537-7, 71588-8 ####[facility] LABCLIA [id number] [place] [address] [place] Erythrocyte distribution width (RBC) [Ratio] 13.9 % Normal 11.5-15.0 [facility] Comment on above: Order Comment: Speci men Type: BLOOD SPECIMENOrdering Facility: [facility] Address: [address] [place] [address] Performed By: #### 4 537-7, 37297-6 ####[facility] LABCLIA [id number] [place] [address] [place] Hematocrit (Bld) [Volume fraction] 46.3 % Normal 39.0-51.0 [facility] Comment on above: Order Comment: Speci men Type: BLOOD SPECIMENOrdering Facility: [facility] Address: [address] [place] [address] Performed By: #### 4 537-7, 79924-9 ####[facility] LABCLIA [id number] [place] [address] [place] Hemoglobin (Bld) [Mass/Vol] 16.0 g/dL Normal 13.0-17.0 [facility] Comment on above: Order Comment: Speci men Type: BLOOD SPECIMENOrdering Facility: [facility] Address: [address] [place] [address] Performed By: #### 4 537-7, 39810-8 ####[facility] LABCLIA [id number] [place] [address] [place] Immature granulocytes (Bld) [#/Vol] 10*3/uL Normal <0.10 [facility] Comment on above: Order Comment: Speci men Type: BLOOD SPECIMENOrdering Facility: [facility] Address: [address] [place] [address] Performed By: #### 4 537-7, 47030-7 ####[facility] LABCLIA [id number] [place] [address] [place] Immature granulocytes/100 WBC (Bld) 0.3 % Normal [facility] Comment on above: Order Comment: Speci men Type: BLOOD SPECIMENOrdering Facility: [facility] Address: [address] [place] [address] Performed By: #### 4 537-7, 83378-8 ####[facility] LABCLIA [id number] [place] [address] [place] Lymphocytes (Bld) [#/Vol] 3.14 10*3/uL Normal 1.00-4.00 [facility] Comment on above: Order Comment: Speci men Type: BLOOD SPECIMENOrdering Facility: [facility] Address: [address] [place] [address] Performed By: #### 4 537-7, 81871-5 ####[facility] LABIA [id number] [place] [address] [place] Lymphocytes/100 WBC (Bld) 45.1 % Normal [facility] Comment on above: Order Comment: Speci men Type: BLOOD SPECIMENOrdering Facility: [facility] Address: [address] [place] [address] Performed By: #### 4 537-7, 64935-8 ####[facility] LABIA [id number] [place] [address] [place] MCH (RBC) [Entitic mass] 28.2 pg Normal 26.0-34.0 [facility] Comment on above: Order Comment: Speci men Type: BLOOD SPECIMENOrdering Facility: [facility] Address: [address] [place] [address] Performed By: #### 4 537-7, 60074-1 ####[facility] LABIA [id number] [place] [address] [place] MCHC (RBC) [Mass/Vol] 34.6 g/dL Normal 30.5-36.0 [facility] Comment on above: Order Comment: Speci men Type: BLOOD SPECIMENOrdering Facility: [facility] Address: [address] [place] [address] Performed By: #### 4 537-7, 70624-8 ####[facility] LABIA [id number] [place] [address] [place] MCV (RBC) [Entitic vol] 81.7 fL Normal 80.0-100.0 [facility] Comment on above: Order Comment: Speci men Type: BLOOD SPECIMENOrdering Facility: [facility] Address: [address] [place] [address] Performed By: #### 4 537-7, 27880-7 ####[facility] LABCLIA [id number] [place] [address] [place] Monocytes (Bld) [#/Vol] 0.41 10*3/uL Normal <0.87 [facility] Comment on above: Order Comment: Speci men Type: BLOOD SPECIMENOrdering Facility: [facility] Address: [address] [place] [address] Performed By: #### 4 537-7, 70422-1 ####[facility] LABCLIA [id number] [place] [address] [place] Monocytes/100 WBC (Bld) 5.9 % Normal [facility] Comment on above: Order Comment: Speci men Type: BLOOD SPECIMENOrdering Facility: [facility] Address: [address] [place] [address] Performed By: #### 4 537-7, 82291-2 ####[facility] LABCLIA [id number] [place] [address] [place] Neutrophils (Bld) [#/Vol] 3.15 10*3/uL Normal 1.45-7.50 [facility] Comment on above: Order Comment: Speci men Type: BLOOD SPECIMENOrdering Facility: [facility] Address: [address] [place] [address] Performed By: #### 4 537-7, 66153-6 ####[facility] LABCLIA [id number] [place] [address] [place] Neutrophils/100 WBC (Bld) 45.3 % Normal [facility] Comment on above: Order Comment: Speci men Type: BLOOD SPECIMENOrdering Facility: [facility] Address: [address] [place] [address] Performed By: #### 4 537-7, 33895-9 ####[facility] LABCLIA [id number] [place] [address] [place] Nucleated RBC (Bld) [#/Vol] 10*3/uL Normal <0.01 [facility] Comment on above: Order Comment: Speci men Type: BLOOD SPECIMENOrdering Facility: [facility] Address: [address] [place] [address] Performed By: #### 4 537-7, 61853-7 ####[facility] LABCLIA [id number] [place] [address] [place] Nucleated RBC/100 WBC (Bld) [Ratio] 0.0 /100 WBC Normal [facility] Comment on above: Order Comment: Speci men Type: BLOOD SPECIMENOrdering Facility: [facility] Address: [address] [place] [address] Performed By: #### 4 537-7, 59507-9 ####[facility] LABIA [id number] [place] [address] [place] Platelet mean volume (Bld) [Entitic vol] 9.7 fL Normal 9.0-12.7 [facility] Comment on above: Order Comment: Speci men Type: BLOOD SPECIMENOrdering Facility: [facility] Address: [address] [place] [address] Performed By: #### 4 537-7, 30649-6 ####[facility] LABIA [id number] [place] [address] [place] Platelets (Bld) [#/Vol] 269 10*3/uL Normal 150-400 [facility] Comment on above: Order Comment: Speci men Type: BLOOD SPECIMENOrdering Facility: [facility] Address: [address] [place] [address] Performed By: #### 4 537-7, 98486-1 ####[facility] LABIA [id number] [place] [address] [place] RBC (Bld) [#/Vol] 5.67 10*6/uL Normal 4.20-6.00 [facility] Comment on above: Order Comment: Speci men Type: BLOOD SPECIMENOrdering Facility: [facility] Address: [address] [place] [address] Performed By: #### 4 537-7, 25188-8 ####[facility] LABCLIA [id number] [place] [id number] [place] WBC (Bld) [#/Vol] 6.96 10*3/uL Normal 3.70-11.00 [facility] Comment on above: Order Comment: Speci men Type: BLOOD SPECIMENOrdering Facility: [facility] Address: [address] [place] [address] Performed By: #### 4 537-7, 24706-6 ####[facility] LABCLIA [id number] [address] [place] CNOVon 11-04-2023 CNOV Office Visit (RHEUMN ) MAURYKELSYHAYDEN ([id number]) 1965 M Date Time Provider Department 11/04/23 9:40 AM CIERA PALM RHEUMN During your visit today, we recorded the following information about you: Temperature Pulse Blood pressure Weight 97.4 degrees 71/minute 147/92 91.5 kg Ciera Palm MD 11/04/2023 2:23 PM Addendum [facility]ology Outpatient [facility] Date of Service: 11/04/2023 Patient: Hayden Pendleton Medical Record: [id number] Primary Care Physician: Quang Hanson MD Referring Provider: Ramirez Thomas [address] [facility] [address] Last Rheumatology visit: None at [facility] Chief complaint: Joint Pain and Positive CHANDANA Consultation requested by Ramirez Pelayo for an opinion regarding positive CHANDANA, osteoarthritis. My final recommendations will be communicated back to the requesting physician by way of shared Medical record or letter to requesting physician via US mail. History of Present Illness Hayden Pendleton is a 58 year old White male with medical history of CAD s/p CABG, hypertension, depression, hyperlipidemia, right hip surgery, right scapula surgery, presents on 11/04/2023 for an in-person visit for evaluation of Joint Pain and Positive CHANDANA. Hayden is RF negative - 14 (08/09/2023). His most recent CHANDANA was positive (08/09/2023). History of present illness Seen in Ortho clinic 07/2023 for bilateral knee pain which is going on for 10 to 15 years, Found to have positive CHANDANA and referred to rheumatology. 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 Also reports having vertigo on and off, mostly positional, has gotten better sometimes with Hansel's maneuver, has seen ENT locally. Also reports of balance and memory issues, has not seen neurology Previous workups 07/2023 Rheumatoid factor negative CHANDANA positive, 1: 160 Anticentromere antibody 1.6, Other anti-MOHINI, dsDNA negative 10/2021 CBC unremarkable BMP unremarkable Radiograph bilateral knees 07/2023-Osteopenia. Tiny marginal osteophytes of both knees. No significant joint space narrowing. Distal quadriceps tendon enthesophytes bilaterally. No significant joint effusion. Surgical clips medial to the right knee. No acute fracture or dislocation. There are no bony erosions. Chest radiograph 11/2020-unremarkable Radiograph thoracic spine 06/2013-Minimal bony bridging is seen at several levels in the lower thoracic spine. No obvious bony destruction. Patient-Entered Data PAIN EVALUATION 11/03/2023 1908 11/04/2023 0941 Pain Level: 8 5 Pain Location: Other: See Comment -- all over Description: Aching;Burning;Numbne ss;Pressure;Radiating ;Sharp;Sore;Spasm;Sta bbing;Stiffness; Tenderness;Throbbing; Tightness;Tingling -- Duration Amount of Time: 24 -- Duration Units: Months -- Frequency: Continuous Continuous Intervention/Comfort measure: Medication;Relaxation -- Comments: All over body -- PROMIS Assessments 11/03/2023 PROMIS Assessments Physical Health Percentile 0 Mental Health Percentile 0 Pain Score 2 Pain Interference Percentile 0 Fatigue Percentile 0 Physical Function Percentile 14 RAPID 3 [place] Activities of Daily Living 11/03/2023 7:18 PM Dress self? With SOME difficulty Get in and out of bed? With SOME difficulty Walk outdoors? With SOME difficulty Wash and dry body? With SOME difficulty Get in and out of car? With SOME difficulty RAPID 3 Disease Activity Weighed Score Levels: 0 - 1: Near Remission 1.3 - 2.0: Low Severity 2.3 - 4.0: Moderate Severity 4.3 - 10.0: High Severity 11/03/2023 RAPID-3 Weighed Score RAPID 3 Weighed Score 7.11 (High severity ) Review of Systems Review of Systems CONSTITUTION: Positive for: Recent weight change Negative for: Fever HEENT: Positive for: Trouble swallowing and Dry mouth Negative for: Nosebleeds and Mouth sores RESPIRATORY: Positive for: Cough and Shortness of breath Negative for: Pain with breathing and Coughing up blood GASTROINTESTINAL: Positive for: Diarrhea, Heartburn and Abdominal pain Negative for: Melena MUSCULOSKELETAL: Positive for: Arthralgias, Myalgias, Muscle weakness, Joint swelling and Morning Joint Stiffness NEUROLOGICAL: Positive for: Numbness and Memory loss Negative for: H (more content not included)... Normal [facility] CRP SerPl-mCncon 11-04-2023 CRP [Mass/Vol] 0.6 mg/dL Normal <0.9 [facility] Comment on above: Order Comment: Speci men Type: BLOOD SPECIMENOrdering Facility: [facility] Address: [address] [place] [address] Performed By: #### 2 4323-8, 213-1987-06 ####[facility] LABCLIA [id number] [place] [id number] [place] Centromere Ab IF Ql (S)on Centromere Ab Qn (S) 1.8 AI High <1.0 [facility] Comment on above: Order Comment: Speci men Type: BLOOD SPECIMENOrdering Facility: [facility] Address: [address] [place] [address] Result Comment: Anti -centromere antibody is used as in aid in diagnosis of systemic sclerosis. Clinical correlation is required. Test Methodology: Multiplex flow immunoassay. Performed By: #### 1 7792-3, 33955-4, 68339-7, 11901-1, 30262-4, 81826-3, 70322-2, 58846-0 ####[facility] LABCLIA [id number] [place] [address] [place] CENTROMERE AB QUAL Positive Abnormal Negative [facility] Comment on above: Order Comment: Speci men Type: BLOOD SPECIMENOrdering Facility: [facility] Address: [address] [place] [address] Performed By: #### 1 7792-3, 99268-2, 19826-1, 27574-2, 07416-7, 81260-8, 19836-1, 86519-4 ####[facility] LABCLIA [id number] [place] [id number] [place] Chromatin Ab Qnon 11-04-2023 CHROMATIN AB QUAL Negative Normal Negative [facility] Comment on above: Order Comment: Speci men Type: BLOOD SPECIMENOrdering Facility: [facility] Address: [address] [place] [address] Performed By: #### 1 7792-3, 00541-4, 42136-3, 74804-8, 74909-1, 10915-9, 27413-1, 85581-8 ####[facility] LABCLIA [id number] [place] [id number] [place] Chromatin Ab SerPl-aCncon Chromatin Ab Qn <0.2 Normal <1.0 [facility] Comment on above: Order Comment: Speci men Type: BLOOD SPECIMENOrdering Facility: [facility] Address: [address] [place] [address] Result Comment: Test Methodology: Multiplex flow immunoassay. Performed By: #### 1 7792-3, 63459-0, 78124-6, 11068-9, 12050-8, 12821-0, 19603-5, 69642-0 ####[facility] LABCLIA [id number] [address] OF [facility] Comprehensive metabolic 2000 panelon 11-04-2023 Albumin [Mass/Vol] 4.7 g/dL Normal 3.9-4.9 [facility] Comment on above: Order Comment: Speci men Type: BLOOD SPECIMENOrdering Facility: [facility] Address: [address] [place] [address] Performed By: #### 2 4328, 2131-10, 1987-06 ####[facility] LABCLIA [id number] [place] [address] [place] ALP [Catalytic activity/Vol] 78 U/L Normal 38-113 [facility] Comment on above: Order Comment: Speci men Type: BLOOD SPECIMENOrdering Facility: [facility] Address: [address] [place] [address] Performed By: #### 2 8, 2131-10, 1987-06 ####[facility] LABCLIA [id number] [place] [id number] [place] ALT [Catalytic activity/Vol] 29 U/L Normal 10-54 [facility] Comment on above: Order Comment: Speci men Type: BLOOD SPECIMENOrdering Facility: [facility] Address: [address] [place] [address] Performed By: #### 2 4328, 2131-10, 1987-06 ####[facility] LABCLIA [id number] [facility] [address] [address] [place] Anion gap [Moles/Vol] 12 mmol/L Normal 8-15 [facility] Comment on above: Order Comment: Speci men Type: BLOOD SPECIMENOrdering Facility: [facility] Address: [address] [place] [address] Performed By: #### 2 4328, 2131-10, 1987-06 ####[facility] LABCLIA [id number] [facility] [place] [id number] [place] AST [Catalytic activity/Vol] 28 U/L Normal 14-40 [facility] Comment on above: Order Comment: Speci men Type: BLOOD SPECIMENOrdering Facility: [facility] Address: [address] [place] [address] Performed By: #### 2 4328, 2131-10, 1987-06 ####[facility] LABCLIA [id number] [place] [id number] [place] Bilirubin [Mass/Vol] 0.3 mg/dL Normal 0.2-1.3 [facility] Comment on above: Order Comment: Speci men Type: BLOOD SPECIMENOrdering Facility: [facility] Address: [address] [place] [address] Performed By: #### 2 4328, 2131-10, 1987-06 ####[facility] LABCLIA [id number] [facility] [place] [id number] [place] Calcium [Mass/Vol] 10.0 mg/dL Normal 8.5-10.2 [facility] Comment on above: Order Comment: Speci men Type: BLOOD SPECIMENOrdering Facility: [facility] Address: [address] [place] [address] Performed By: #### 2 432-8, 2131-10, 1987-06 ####[facility] LABCLIA [id number] [place] [id number] [place] Chloride [Moles/Vol] 100 mmol/L Normal 98-107 [facility] Comment on above: Order Comment: Speci men Type: BLOOD SPECIMENOrdering Facility: [facility] Address: [address] [place], [place] [address] Performed By: #### 2 4323-8, 2131-10, 1987-06 ####[facility] LABIA [id number] [place] [id number] [place] CO2 [Moles/Vol] 26 mmol/L Normal 22-30 [facility] Comment on above: Order Comment: Speci men Type: BLOOD SPECIMENOrdering Facility: [facility] Address: [address] [place] [address] Performed By: #### 2 4323-8, 2131-10, 1987-06 ####[facility] LABIA [id number] [place] [address] [place] Creatinine [Mass/Vol] 1.06 mg/dL Normal 0.73-1.22 [facility] Comment on above: Order Comment: Speci men Type: BLOOD SPECIMENOrdering Facility: [facility] Address: [address] [place] [address] Performed By: #### 2 4323-8, 2131-10, 1987-06 ####[facility] LABIA [id number] [place] [id number] [place] Creatinine and Glomerular filtration rate.predicted panel (S/P/Bld) 82 mL/min/1.73m??? Normal >=60 [facility] Comment on above: Order Comment: Speci men Type: BLOOD SPECIMENOrdering Facility: [facility] Address: [address] [place], [place] [id number] Result Comment: Cherelle mated Glomerular Filtration Rate (eGFR) is calculated using the 2020 CKD-EPI creatinine equation. This equation utilizes serum creatinine, sex, and age as parameters. The creatinine assay has traceable calibration to isotope dilution-mass spectrometry. Refer to KDIGO guidelines for clinical interpretation. In patients with unstable renal function, e.g. those with acute kidney injury, the eGFR may not accurately reflect actual GFR. Performed By: #### 2 4322-09, 1987-06 ####[facility] LABCLIA [id number] [address] [address] [place] Glucose [Mass/Vol] 109 mg/dL High 74-99 [facility] Comment on above: Order Comment: Zeyad san Type: BLOOD SPECIMENOrdering Facility: [facility] Address: [address] [place] [address] Result Comment: The [place] [employer] (ADA) provides guidance for cutoff values for fasting glucose and random glucose. The ADA defines fasting as no caloric intake for at least 8 hours. Fasting plasma glucose results between 100 to 125 mg/dL indicate increased risk for diabetes (prediabetes). Fasting plasma glucose results greater than or equal to 126 mg/dL meet the criteria for diagnosis of diabetes. In the absence of unequivocal hyperglycemia, results should be confirmed by repeat testing. In a patient with classic symptoms of hyperglycemia or hyperglycemic crisis, random plasma glucose results greater than or equal to 200 mg/dL meet the criteria for diagnosis of diabetes. Reference: Standards of Medical Care in Diabetes 2016, [place] [employer]. Diabetes Care. 2016.39(Suppl 1). Performed By: #### 2 4322-09, 1987-06 ####[facility] LABCLIA [id number] [facility] [place] [id number] [place] Potassium [Moles/Vol] 4.7 mmol/L Normal 3.7-5.1 [facility] Comment on above: Order Comment: Zeyad san Type: BLOOD SPECIMENOrdering Facility: [facility] Address: [address] [place] [address] Performed By: #### 2 4322-09, 2131-10, 1987-06 ####[facility] LABCLIA [id number] [facility] [address] [address] [place] Protein [Mass/Vol] 7.6 g/dL Normal 6.3-8.0 [facility] Comment on above: Order Comment: Speci men Type: BLOOD SPECIMENOrdering Facility: [facility] Address: [address] [place] [address] Performed By: #### 2 4328, 2131-10, 1987-06 ####[facility] LABCLIA [id number] [address] [address] [place] Sodium [Moles/Vol] 138 mmol/L Normal 136-144 [facility] Comment on above: Order Comment: Speci men Type: BLOOD SPECIMENOrdering Facility: [facility] Address: [address] [place] [address] Performed By: #### 2 4322-09, 2131-10, 1987-06 ####[facility] LABIA [id number] [place] [address] [place] Urea nitrogen [Mass/Vol] 14 mg/dL Normal 9-24 [facility] Comment on above: Order Comment: Speci men Type: BLOOD SPECIMENOrdering Facility: [facility] Address: [address] [place] [address] Performed By: #### 2 8, 2131-10, 1987-06 ####[facility] LABIA [id number] [place] [id number] [place] MOHINI Jo1 Ab Ser-aCncon 2023 Guerline-1 extractable nuclear Ab Qn (S) <0.2 Normal <1.0 [facility] Comment on above: Order Comment: Speci men Type: BLOOD SPECIMENOrdering Facility: [facility] Address: [address] [place] [address] Performed By: #### 1 7792-3, 72868-1, 93479-7, 98233-6, 25651-6, 58138-6, 79796-2, 55713-3 ####[facility] LABIA [id number] [place] [address] [place] MOHINI STUDIO MODEL Ab Ser-aCncon 2023 Ribonucleoprotein extractable nuclear Ab Qn (S) <0.2 Normal <1.0 [facility] Comment on above: Order Comment: Speci men Type: BLOOD SPECIMENOrdering Facility: [facility] Address: [address] [place] [address] Performed By: #### 1 7792-3, 95895-3, 88718-2, 05252-0, 81611-9, 74736-3, 75201-1, 52780-6 ####[facility] LABCLIA [id number] [place] [address] [place] MOHINI SM IgG Ser-aCncon 2023 Donis extractable nuclear IgG Qn (S) <0.2 Normal <1.0 [facility] Comment on above: Order Comment: Speci men Type: BLOOD SPECIMENOrdering Facility: [facility] Address: [address] [place] [address] Performed By: #### 1 7792-3, 84746-0, 49375-7, 02134-1, 03099-7, 28632-2, 22370-7, 47344-6 ####[facility] LABCLIA [id number] [place] [address] [place] MOHINI SS-A Ab Ser-aCncon 11-03 Sjogrens syndrome-A extractable nuclear Ab Qn (S) <0.2 Normal <1.0 [facility] Comment on above: Order Comment: Speci men Type: BLOOD SPECIMENOrdering Facility: [facility] Address: [address] [place] [address] Result Comment: Test Methodology: Multiplex flow immunoassay. Performed By: #### 1 7792-3, 20597-4, 85200-4, 62944-3, 94929-4, 55928-6, 55541-6, 16150-0 ####[facility] LABCLIA [id number] [place] [address] [place] MOHINI SS-B Ab Ser-aCncon 11-03 Sjogrens syndrome-B extractable nuclear Ab Qn (S) <0.2 Normal <1.0 [facility] Comment on above: Order Comment: Speci men Type: BLOOD SPECIMENOrdering Facility: [facility] Address: [address] [place] [address] Result Comment: Anti -SSB (anti-La) antibody is used as an aid in diagnosis of a variety of systemic autoimmune diseases, especially for Sjogren's syndrome and systemic lupus erythematosus. Clinical correlation is required. Test Methodology: Multiplex flow immunoassay. Performed By: #### 1 7792-3, 86960-8, 49136-0, 75907-7, 76485-7, 78691-5, 19091-5, 25862-4 ####[facility] LABIA [id number] [place] [address] [place] ESR Westergren method (Bld) [Velocity]on 11-04-2023 ESR (Bld) [Velocity] 15 mm/h [facility] Interpretation and review of laboratory results Normal [facility] ESR (Bld) [Velocity] 15 mm/h Normal 0-15 [facility] Comment on above: Order Comment: Speci men Type: BLOOD SPECIMENOrdering Facility: [facility] Address: [address] [place] [address] Performed By: #### 4 537-7, 09177-9 ####[facility] LABIA [id number] [address] [place] HbA1c (Bld)on 11-04-2023 Average glucose Estimated from glycated hemoglobin (Bld) [Mass/Vol] 126 mg/dL Normal [facility] Comment on above: Order Comment: Speci men Type: BLOOD SPECIMENOrdering Facility: [facility] Address: [address] [place] [address] Result Comment: eAG: (Estimated average glucose) is a calculated value from HgbA1c and is collections representative of the average blood glucose level in the last 2-3 month period. Performed By: #### 5 5454-3 ####[facility] [id number] [place] [address] [place] HbA1c (Bld) [Mass fraction] 6.0 % High 4.3-5.6 [facility] Comment on above: Order Comment: Zeyad san Type: BLOOD SPECIMENOrdering Facility: [facility] Address: [address] [place] [address] Result Comment: [place] Diabetes Association guidelines indicate that patients with HgbA1c in the range 5.7-6.4% are at increased risk for development of diabetes, and intervention by lifestyle modification may be beneficial. HgbA1c greater or equal to 6.5% is considered diagnostic of diabetes. Performed By: #### 5 5454-3 ####[facility] [id number] [place] [address] [place] Guerline-1 extractable nuclear Ab Qn (S)on 11-04-2023 GUERLINE 1 ANTIBODY QUAL Negative Normal Negative [facility] Comment on above: Order Comment: Zeyad san Type: BLOOD SPECIMENOrdering Facility: [facility] Address: [address] [place] [address] Result Comment: Anti -GUERLINE-1 antibody is used as an aid in diagnosis of polymyositis and dermatomyositis especially with pulmonary involvement. A negative result cannot rule out polymyositis or dermatomyositis. Clinical correlation is required. Test Methodology: Multiplex flow immunoassay. Performed By: #### 1 7792-3, 65318-7, 11062-5, 26699-1, 73792-6, 73078-2, 49321-8, 53613-7 ####[facility] [id number] [place] [address] [place] Ribonucleoprotein extractabl e nuclear Ab Qn (S)on 11-04-2023 ANTI-STUDIO MODEL QUAL Negative Normal Negative [facility] Comment on above: Order Comment: Zeyad san Type: BLOOD SPECIMENOrdering Facility: [facility] Address: [address] [place] [address] Performed By: #### 1 7792-3, 22097-2, 76966-6, 92994-3, 06461-3, 63526-7, 84139-0, 23119-0 ####[facility] [id number] [address] [address] [place] RIBOSOMAL STUDIO MODEL QUAL Negative Normal Negative [facility] Comment on above: Order Comment: Speci men Type: BLOOD SPECIMENOrdering Facility: [facility] Address: [address] [place] [address] Result Comment: Anti -Ribosomal RNA (Ribosomal P) antibody is used as an aid in diagnosis of systemic autoimmune diseases especially systemic lupus erythematosus and mixed connective tissue disease. Cross-reactivity with Anti-donis antibody is not uncommon. Clinical correlation is required. Test Methodology: Multiplex flow immunoassay. Performed By: #### 1 7792-3, 80146-4, 25490-7, 27952-1, 49966-7, 65043-2, 08916-7, 02655-5 ####[facility] [id number] [place] [address] [place] SCL-70 extractable nuclear I gG IA Qn (S)on 11-04-2023 SCLERODERMA AB QUAL Negative Normal Negative [facility] Comment on above: Order Comment: Zeyad san Type: BLOOD SPECIMENOrdering Facility: [facility] Address: [address] [place] [address] Performed By: #### 1 7792-3, 10060-6, 28966-1, 39116-3, 55861-6, 09726-1, 80099-6, 45085-3 ####[facility] [id number] [place] [address] [place] SCLERODERMA IGG AB <0.2 Normal <1.0 [facility] Comment on above: Order Comment: Zeyad san Type: BLOOD SPECIMENOrdering Facility: [facility] Address: [address] [place] [address] Result Comment: Scl- 70/Scleroderma antibody test is used as an aid in diagnosis of systemic sclerosis especially the diffuse cutaneous form. A negative result cannot rule out systemic sclerosis. The final interpretation should consider clinical picture and other test results such as anti-centromere antibody. Test Methodology: Multiplex flow immunoassay. Performed By: #### 1 7792-3, 65680-3, 33670-4, 84383-9, 94762-4, 18196-1, 60698-8, 59030-8 ####[facility] [id number] [address] [address] [place] Sjogrens syndrome-A extracta ble nuclear Ab Qn (S)on 11-04-2023 SSA ANTIBODY QUAL Negative Normal Negative [facility] Comment on above: Order Comment: Speci men Type: BLOOD SPECIMENOrdering Facility: [facility] Address: [address] [place] [address] Performed By: #### 1 7792-3, 18832-9, 19525-6, 49862-2, 62550-9, 64814-4, 90988-0, 37774-1 ####[facility] [id number] [address] [address] [place] Sjogrens syndrome-B extracta ble nuclear Ab Qn (S)on 11-04-2023 SSB ANTIBODY QUAL Negative Normal Negative [facility] Comment on above: Order Comment: Speci men Type: BLOOD SPECIMENOrdering Facility: [facility] Address: [address] [place] [address] Performed By: #### 1 7792-3, 99418-6, 20512-8, 58508-9, 87548-9, 30429-9, 20146-9, 33441-8 ####[facility] [id number] [place] [id number] [place] Donis extractable nuclear Ig G Qn (S)on 11-04-2023 SM ANTIBODY QUAL Negative Normal Negative [facility] Comment on above: Order Comment: Speci men Type: BLOOD SPECIMENOrdering Facility: [facility] Address: [address] [place] [address] Result Comment: Anti -Sm (Donis) antibody is used as an aid in diagnosis of systemic lupus erythematosus and its presence is associated with renal disease. A negative result cannot rule out systemic lupus erythematosus. Clinical correlation is required. Test Methodology: Multiplex flow immunoassay. Performed By: #### 1 7792-3, 50345-4, 91723-4, 09156-4, 68464-4, 44290-7, 82577-8, 64619-2 ####[facility] LABIA [id number] [place] [id number] [place] Vit B12 [facility] 024 Cobalamin (Vitamin B12) [Mass/Vol] 353 pg/mL Normal 232-1245 [facility] Comment on above: Order Comment: Speci men Type: BLOOD SPECIMENOrdering Facility: [facility] Address: [address] [place] [address] Performed By: #### 2 4323-8, 9, 1987-06 ####[facility] [id number] [place] [address] [place] Nuclear Ab IA Ql (S)Ordered By: Cecy Mcdonald on 08-10-2023 CHANDANA Scr Qual Positive Abnormal Negative [facility] Comment on above: The qualitative anti nuclear antibody screen test performed using the following antigens: dsDNA, Chromatin, Ribosomal P, SS-A 60, SS-A 52, SS-B, Sm, SmRNP, STUDIO MODEL A, STUDIO MODEL 68, Scl-70, Guerline-1, and Centromere B. Methodology: Multiplex flow immunoassay. Interpretation and review of laboratory results Abnormal [facility] CHANDANA BY IFA SCREENon 08-09-19 24 Nuclear Ab pattern (S) [Interp] Centromere Normal [facility] Comment on above: Order Comment: Speci men Type: BLOOD SPECIMENOrdering Facility: [facility] Address: [address] [place] [address] Performed By: #### 1 1565-9, 46182-5, 52725-0, 92451-1, 70426-1, 80733-6, 12202-2, 07196-1, 50196-1, 65579-9, ANAIFS ####[facility]IA [id number] [place] [id number] [place] Nuclear Ab Ql (S) Positive Abnormal Negative [facility] Comment on above: Order Comment: Speci men Type: BLOOD SPECIMENOrdering Facility: [facility] Address: [address] [place] [address] Result Comment: Anti -nuclear antibody test is used as an aid in diagnosis of systemic autoimmune diseases. Where positive and clinically warranted, follow-up using disease-specific testing is recommended. Low positive titers are not uncommon with advanced age, certain chronic infections, and malignancies among others. Test methodology: Indirect fluorescence immunoassay (IFA) using HEp-2 cells. 1:160 Performed By: #### 1 1565-9, 71222-8, 21666-3, 96155-7, 32146-7, 60883-2, 23020-0, 63329-7, 46410-0, 54005-0, ANAIFS ####[facility]IA [id number] [address] [address] [place] CNCOon 08-09-2023 CNCO Letter Text Normal [facility] CNOVon 08-09-2023 CNOV Office Visit (NEL ) HAYDEN PENDLETON ([id number]) 1965 M Date Time Provider Department 08/09/23 8:15 AM RAMIREZ THOMAS During your visit today, we recorded the following information about you: Ramirez Thomas MD 08/16/2023 12:32 PM Signed Ramirez Thomas MD Department of Orthopaedics Orthopaedics [address] [place] [address] Dept: [phone] Dept August 09, 2023 CHIEF COMPLAINT: New and Pain of the Left Knee and New and Pain of the Right Knee HPI Patient here today with his significant other for bilateral knee pain x 10-15 years. 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 Denies any injury. New x-ray today at [facility]. ASSESSMENT: M25.561, M25.562, G89.29 Chronic pain of both knees (primary encounter diagnosis) M17.0 Primary osteoarthritis of both knees PLAN: Overall, his plain films are not too bad and his clinical exam does not show any immediate inflammatory signs. My recommendation is just simply multimodality treatment for some knee pain which will start with some strengthening, switch up an oral anti-inflammatory and we may consider cortisone injections again though he did say in his history he has had those without any benefit at all in the past. We may have to consider more advanced imaging as well as his plain films are suggestive of only some potentially mild arthritic changes. FOLLOW UP INSTRUCTIONS: As above Mr. Hayden Pendleton was advised as to contrast therapies and/or to take analgesics/anti-infla mmatories as needed and all contraindications were reviewed. OBJECTIVE: Mr. Hayden Pendleton is a pleasant 58 year old in no apparent distress. Gen:There were no vitals taken for this visit. nl development, non obese, no deformities ENT: Normocephalic, normal hearing, moist mucosa CV: Pulses:DP/PT= 2+ and symmetric, capillary refill < 2 secs, no peripheral edema/varicosities Skin: no rash, bruising or lesions. Good turgor. Psych: cooperative and appropriate, alert and oriented x 3, good mood and affect. Musculoskeletal: Patient walks with mild antalgia, normal station. Hip motion without pain. Bilateral knee without effusion. Patella tracks normally. There is no patellar crepitance. No pain along the medial or lateral facets. Range of motion 0-130 degrees bilaterally. Mild medial, without lateral joint line pain on palpation. Ligamentous exam stable on varus and valgus stress testing at 0 and 30 degrees. Jennifer's examination is negative. Posterior drawer is negative. Negative McMurrays, without palpable click. Extremity is warm and well perfused. Sensation is grossly intact to light touch, subjectively. IMAGING: Impression IMPRESSION: Minimal degenerative change. Machine Coremaker: JACKI Transcribe Date/Time: Aug 13 2023 7:56A Dictated by : JACOBO RIZO MD This examination was interpreted and the report reviewed and electronically signed by: JACOBO RIZO MD on Aug 13 2023 7:57AM EST Results-Findings * * *Final Report* * * DATE OF EXAM: Aug 09 2023 8:46AM WRX [id number] - XR KNEE 4V AP/PA/LAT/MERCH ANDREEA / PROCEDURE REASON: multiple diagnoses * * * * Physician Interpretation * * * * EXAMINATION: XR KNEE 4V AP/PA/LAT/MERCH ANDREEA HISTORY: PT STATES HISTORY OF BILAT KNEE PAIN Pain in both knees, unspecified chronicity Pain in both knees, unspecified chronicity . TECHNIQUE: XR KNEE 4V AP/PA/LAT/MERCH ANDREEA Laterality: BILATERAL Number of different views (projections): 4 M: XB_1 COMPARISON: RESULT: Osteopenia. Tiny marginal osteophytes of both knees. No significant joint space narrowing. Distal quadriceps tendon enthesophytes bilaterally. No significant joint effusion. Surgical clips medial to the right knee. No acute fracture or dislocation. There are no bony erosions. Supporting Subjective Information Below: Past Medical History: PAST MEDICAL HISTORY Diagnosis Date CAD (coronary artery disease) Dyslipidemia HTN (hypertension) Hx of CABG Low back pain Rheumatoid arthritis (HCC) Past Surgical History: PAST SURGICAL HISTORY Procedure Laterality Date CABG (4) VEIN GRAFTS AND ARTERIAL GRAFT(S) 10/25/2020 HIP SURGERY HX Right SCAPULA Right Family History: FAMILY HISTORY Problem Relation Age of Onset Heart Attack Mother Heart Attack Sister Social History: Social History Tobacco Use Smoking status: Every Day Packs/day: .5 Types: Cigarettes Smokeless tobacco: Never Vaping Use Vaping Use: Never used Substance Use Topics Alcohol use: Not Currently Comment: occ Drug use: Yes Frequency: 7.0 times per week Types: Marijuana Medications: Current Outpatient Medications Medication Sig isosorbide mononitrate ER (IMDUR) 30 mg 24 hr tablet Take 1 tablet by mouth once daily. rosuvastatin (CRESTOR) 20 (more content not included)... Normal [facility] Centromere Ab IF Ql (S)on Centromere Ab Qn (S) 1.6 AI High <1.0 [facility] Comment on above: Order Comment: Speci men Type: BLOOD SPECIMENOrdering Facility: [facility] Address: [address] [place] [address] Result Comment: Anti -centromere antibody is used as in aid in diagnosis of systemic sclerosis. Clinical correlation is required. Test Methodology: Multiplex flow immunoassay. Performed By: #### 1 1565-9, 08964-9, 10297-0, 58450-5, 12152-3, 80916-7, 13550-3, 84170-1, 68409-6, 40702-7, ANAIFS ####[facility]IA [id number] [place] [address] [place] CENTROMERE AB QUAL Positive Abnormal Negative [facility] Comment on above: Order Comment: Speci jaswinder Type: BLOOD SPECIMENOrdering Facility: [facility] Address: [address] [place] [address] Performed By: #### 1 1565-9, 54894-3, 60403-0, 24175-0, 74892-9, 38610-9, 33024-8, 61219-5, 90820-2, 53744-9, ANAIFS ####[facility] LABCLIA [id number] [place] [address] [place] Chromatin Ab Qnon 08-09-2023 CHROMATIN AB QUAL Negative Normal Negative [facility] Comment on above: Order Comment: Speci men Type: BLOOD SPECIMENOrdering Facility: [facility] Address: [address] [place] [address] Performed By: #### 1 1565-9, 67164-0, 34174-6, 93864-2, 37348-3, 92706-8, 00254-0, 49833-4, 70522-3, 90777-4, ANAIFS ####[facility] LABCLIA [id number] [place] [address] [place] Chromatin Ab SerPl-aCncon Chromatin Ab Qn <0.2 Normal <1.0 [facility] Comment on above: Order Comment: Speci men Type: BLOOD SPECIMENOrdering Facility: [facility] Address: [address] [place] [address] Result Comment: Test Methodology: Multiplex flow immunoassay. Performed By: #### 1 1565-9, 06013-2, 63959-2, 06577-6, 17239-5, 65122-4, 30362-1, 88138-3, 46593-5, 45462-3, ANAIFS ####[facility] [id number] [place] [address] [place] DNA double strand Ab IA Qn ( S)on 08-09-2023 DNA ANTIBODY 49 IU/mL Normal <=200 [facility] Comment on above: Order Comment: Speci men Type: BLOOD SPECIMENOrdering Facility: [facility] Address: [address] [place] [address] Result Comment: Nega tive: <200 IU/mL Equivocal: 201-300 IU/mL Moderate Positive: 301-800 IU/mL Strong Positive: >801 IU/mL Performed By: #### 1 1565-9, 08054-4, 66860-1, 31610-3, 12939-8, 35021-0, 25586-5, 67842-5, 57242-5, 27399-4, ANAIFS ####[facility] [id number] [place] [address] [place] DNA ANTIBODY QUALITATIVE INTERPRETATION Negative Normal Negative [facility] Comment on above: Order Comment: Speci men Type: BLOOD SPECIMENOrdering Facility: [facility] Address: [address] [place] [address] Performed By: #### 1 1565-9, 68663-8, 69560-7, 43306-5, 08220-5, 18798-4, 10182-5, 62167-2, 24396-9, 96269-1, ANAIFS ####[facility] LABCLIA [id number] [place] [id number] [place] MOHINI Jo1 Ab Ser-aCncon 2023 Guerline-1 extractable nuclear Ab Qn (S) <0.2 Normal <1.0 [facility] Comment on above: Order Comment: Speci men Type: BLOOD SPECIMENOrdering Facility: [facility] Address: [address] [place] [address] Performed By: #### 1 1565-9, 88856-7, 59170-3, 26851-5, 88119-0, 63387-6, 18615-8, 58289-3, 12179-2, 41824-6, ANAIFS ####[facility] [id number] [place] [address] [place] MOHINI STUDIO MODEL Ab Ser-aCncon 2023 Ribonucleoprotein extractable nuclear Ab Qn (S) <0.2 Normal <1.0 [facility] Comment on above: Order Comment: Speci men Type: BLOOD SPECIMENOrdering Facility: [facility] Address: [address] [place] [address] Performed By: #### 1 1565-9, 46429-0, 74944-1, 85422-7, 75176-2, 68754-5, 67300-2, 38591-9, 07540-1, 20311-6, ANAIFS ####[facility]IA [id number] [place] [address] [place] MOHINI SM IgG Ser-aCncon 2023 Donis extractable nuclear IgG Qn (S) <0.2 Normal <1.0 [facility] Comment on above: Order Comment: Speci men Type: BLOOD SPECIMENOrdering Facility: [facility] Address: [address] [place] [address] Performed By: #### 1 1565-9, 14684-7, 89788-3, 88337-9, 44148-7, 56730-1, 70404-1, 80382-3, 28705-2, 43009-5, ANAIFS ####[facility] LABCLIA [id number] [place] [address] [place] MOHINI SS-A Ab Ser-aCncon 08-08 Sjogrens syndrome-A extractable nuclear Ab Qn (S) <0.2 Normal <1.0 [facility] Comment on above: Order Comment: Speci men Type: BLOOD SPECIMENOrdering Facility: [facility] Address: [address] [place] [address] Result Comment: Test Methodology: Multiplex flow immunoassay. Performed By: #### 1 1565-9, 47333-1, 60958-1, 19647-0, 87012-9, 41032-5, 53101-0, 29267-2, 38264-3, 27652-7, ANAIFS ####[facility] [id number] [place] [address] [place] MOHINI SS-B Ab Ser-aCncon 08-08 Sjogrens syndrome-B extractable nuclear Ab Qn (S) <0.2 Normal <1.0 [facility] Comment on above: Order Comment: Speci men Type: BLOOD SPECIMENOrdering Facility: [facility] Address: [address] [place] [address] Result Comment: Anti -SSB (anti-La) antibody is used as an aid in diagnosis of a variety of systemic autoimmune diseases, especially for Sjogren's syndrome and systemic lupus erythematosus. Clinical correlation is required. Test Methodology: Multiplex flow immunoassay. Performed By: #### 1 1565-9, 65610-0, 56814-6, 60269-7, 93185-9, 45147-0, 10996-3, 47280-7, 52774-5, 77440-6, ANAIFS ####[facility] LABCLIA [id number] [place] [address] [place] Guerline-1 extractable nuclear Ab Qn (S)on 08-09-2023 GUERLINE 1 ANTIBODY QUAL Negative Normal Negative [facility] Comment on above: Order Comment: Speci men Type: BLOOD SPECIMENOrdering Facility: [facility] Address: [address] [place] [address] Result Comment: Anti -GUERLINE-1 antibody is used as an aid in diagnosis of polymyositis and dermatomyositis especially with pulmonary involvement. A negative result cannot rule out polymyositis or dermatomyositis. Clinical correlation is required. Test Methodology: Multiplex flow immunoassay. Performed By: #### 1 1565-9, 03013-8, 99987-2, 86401-8, 83180-6, 61645-7, 69849-1, 30600-7, 91063-1, 68059-4, ANAIFS ####[facility]IA [id number] [place] [address] [place] Nuclear Ab IA Ql (S)on 08-08 CHANDANA SCR QUAL Positive Abnormal Negative [facility] Comment on above: Order Comment: Zeyad san Type: BLOOD SPECIMENOrdering Facility: [facility] Address: [address] [place] [address] Result Comment: The qualitative antinuclear antibody screen test performed using the following antigens: dsDNA, Chromatin, Ribosomal P, SS-A 60, SS-A 52, SS-B, Sm, SmRNP, STUDIO MODEL A, STUDIO MODEL 68, Scl-70, Guerline-1, and Centromere B. Methodology: Multiplex flow immunoassay. Performed By: #### 1 1565-9, 27101-2, 84802-2, 45477-7, 24229-0, 12875-0, 86407-1, 28382-2, 31694-9, 24547-1, ANAIFS ####[facility]CLIA [id number] [address] [address] [place] RHEUMATOID FACTORon 08-09-19 24 Rheumatoid factor Qn 14 [IU]/mL NINF [facility] Rheumatoid fact SerPl-aCncon 08-09-2023 Rheumatoid factor Qn 14 [IU]/mL Normal <16 [facility] Comment on above: Order Comment: Zeyad san Type: BLOOD SPECIMENOrdering Facility: [facility] Address: [address] [place] [address] Performed By: #### 1 1572-5 ####[facility] [id number] [place] [address] [place] Rheumatoid factor Qnon 08-08 Interpretation and review of laboratory results Normal [facility] Ribonucleoprotein extractabl e nuclear Ab Qn (S)on 08-09-2023 ANTI-STUDIO MODEL QUAL Negative Normal Negative [facility] Comment on above: Order Comment: Speci men Type: BLOOD SPECIMENOrdering Facility: [facility] Address: [address] [place] [address] Performed By: #### 1 1565-9, 87224-3, 81611-9, 62625-4, 42819-8, 73984-6, 56385-8, 11287-1, 12673-0, 04387-6, ANAIFS ####[facility] [id number] [place] [address] [place] RIBOSOMAL STUDIO MODEL QUAL Negative Normal Negative [facility] Comment on above: Order Comment: Fermini jaswinder Type: BLOOD SPECIMENOrdering Facility: [facility] Address: [address] [place] [address] Result Comment: Anti -Ribosomal RNA (Ribosomal P) antibody is used as an aid in diagnosis of systemic autoimmune diseases especially systemic lupus erythematosus and mixed connective tissue disease. Cross-reactivity with Anti-donis antibody is not uncommon. Clinical correlation is required. Test Methodology: Multiplex flow immunoassay. Performed By: #### 1 1565-9, 38622-4, 59050-7, 57350-5, 59464-1, 96297-2, 63446-4, 15311-0, 40418-8, 02174-2, ANAIFS ####[facility] [id number] [place] [address] [place] SCL-70 extractable nuclear I gG IA Qn (S)on 08-09-2023 SCLERODERMA AB QUAL Negative Normal Negative [facility] Comment on above: Order Comment: Speci men Type: BLOOD SPECIMENOrdering Facility: [facility] Address: [address] [place] [address] Performed By: #### 1 1565-9, 05426-7, 88313-8, 13439-9, 89608-8, 34455-0, 91894-1, 22732-0, 32408-1, 80096-4, ANAIFS ####[facility] LABIA [id number] [place] [address] [place] SCLERODERMA IGG AB <0.2 Normal <1.0 [facility] Comment on above: Order Comment: Speci men Type: BLOOD SPECIMENOrdering Facility: [facility] Address: [address] [place] [address] Result Comment: Scl- 70/Scleroderma antibody test is used as an aid in diagnosis of systemic sclerosis especially the diffuse cutaneous form. A negative result cannot rule out systemic sclerosis. The final interpretation should consider clinical picture and other test results such as anti-centromere antibody. Test Methodology: Multiplex flow immunoassay. Performed By: #### 1 1565-9, 26056-1, 60674-8, 16068-2, 04449-5, 48238-6, 29190-4, 20500-0, 32352-9, 20656-7, ANAIFS ####[facility]IA [id number] [place] [address] [place] Sjogrens syndrome-A extracta ble nuclear Ab Qn (S)on 08-09-2023 SSA ANTIBODY QUAL Negative Normal Negative [facility] Comment on above: Order Comment: Speci men Type: BLOOD SPECIMENOrdering Facility: [facility] Address: [address] [place] [address] Performed By: #### 1 1565-9, 81290-6, 94428-9, 14103-6, 77284-8, 79732-6, 34684-1, 86059-6, 37736-3, 10809-2, ANAIFS ####[facility]IA [id number] [place] [address] [place] Sjogrens syndrome-B extracta ble nuclear Ab Qn (S)on 08-09-2023 SSB ANTIBODY QUAL Negative Normal Negative [facility] Comment on above: Order Comment: Speci men Type: BLOOD SPECIMENOrdering Facility: [facility] Address: [address] [place] [address] Performed By: #### 1 1565-9, 72359-9, 15920-7, 24314-0, 61900-3, 54039-2, 21873-4, 52614-4, 43445-3, 96668-3, ANAIFS ####[facility]IA [id number] [place] [address] [place] Donis extractable nuclear Ig G Qn (S)on 08-09-2023 SM ANTIBODY QUAL Negative Normal Negative [facility] Comment on above: Order Comment: Speci men Type: BLOOD SPECIMENOrdering Facility: [facility] Address: [address] [place] [address] Result Comment: Anti -Sm (Donis) antibody is used as an aid in diagnosis of systemic lupus erythematosus and its presence is associated with renal disease. A negative result cannot rule out systemic lupus erythematosus. Clinical correlation is required. Test Methodology: Multiplex flow immunoassay. Performed By: #### 1 1565-9, 94896-9, 69465-9, 89973-1, 33773-5, 11161-0, 11142-0, 12130-6, 93636-5, 71667-4, ANAIFS ####[facility] LABCLIA [id number] [place] [address] [place] XR KNEE 4V AP/PA/LAT/MERCH B ILon 08-09-2023 XR KNEE 4V AP/PA/LAT/MERCH ANDREEA * * *Final Report* * * DATE OF EXAM: Aug 09 2023 8:46AM WRX [id number] - XR KNEE 4V AP/PA/LAT/MERCH ANDREEA / PROCEDURE REASON: multiple diagnoses * * * * Physician Interpretation * * * * EXAMINATION: XR KNEE 4V AP/PA/LAT/MERCH ANDREEA HISTORY: PT STATES HISTORY OF BILAT KNEE PAIN Pain in both knees, unspecified chronicity Pain in both knees, unspecified chronicity . TECHNIQUE: XR KNEE 4V AP/PA/LAT/MERCH ANDREEA Laterality: BILATERAL Number of different views (projections): 4 M: XB_1 COMPARISON: RESULT: Osteopenia. Tiny marginal osteophytes of both knees. No significant joint space narrowing. Distal quadriceps tendon enthesophytes bilaterally. No significant joint effusion. Surgical clips medial to the right knee. No acute fracture or dislocation. There are no bony erosions. IMPRESSION: Minimal degenerative change. Machine Coremaker: PSCB Transcribe Date/Time: Aug 13 2023 7:56A Dictated by : JACOBO RIZO MD This examination was interpreted and the report reviewed and electronically signed by: JACOBO RIZO MD on Aug 13 2023 7:57AM EST [id number] N Normal [facility] Basophil percentageon 2023 Cholesterol [Mass/Vol] 221 mg/dL <200 [facility] Comment on above: <200 mg/dL Desirable 200-240 mg/dL Borderline >240 mg/dL High Risk Triglyceride [Mass/Vol] 313 mg/dL <199 [facility] Comment on above: The drugs N-Acetylcy steine and Metamizole may falsely depress this assay.Serum Triglycerides Reference Interval Normal <150 mg/dL Borderline high 150 - 199 mg/dL High 200 - 499 mg/dL Very High > or = 500 mg/dL Cholesterol in LDL Direct as say [Mass/Vol]on 03-06-2023 Cholesterol in LDL [Mass/Vol] 145 mg/dL 0-99 [facility] Comment on above: Performed at: [facility] [employer] [address] [id number] Director: Loy Lopez PhD, Phone: [phone] Laboratory - Miscellaneous t estson 03-06-2023 Service comment (Unsp spec) [Interp] TNP [facility] Comment on above: Test not performed Serum or plasma cholesterol in HDL measurement (mass/volume)on 03-06-2023 Cholesterol in HDL [Mass/Vol] 33 mg/dL >40 [facility] Comment on above: The drugs N-Acetylcy steine and Metamizole may falsely depress this assay. Reference Range HDL <40 mg/dL Low HDL Cholesterol HDL >or= 60 mg/dL High HDL Cholesterol Serum or plasma cholesterol in VLDL measurement (mass/volume)on 03-06-2023 Cholesterol in VLDL [Mass/Vol] 63 mg/dL 5-40 [facility] Serum or plasma low density lipoprotein (LDL) cholesterol measurement (mass/volume)on 03-06-2023 Cholesterol in LDL [Mass/Vol] 125 mg/dL 0-130 [facility] Absolute lymphocyte countOrd ered By: Dr. Kapadia on 07-03-2022 Lymphocytes Auto (Unsp spec) [#/Vol] 2.94 10*3/uL 0.83-4.51 [facility] Basophil percentageOrdered B y: Dr. Kapadia on 07-03-2022 Basophils/100 WBC (Bld) 1.1 % 0-1 [facility] Chloride [Moles/Vol] 103 mmol/L 98-107 [facility] Eosinophils/100 WBC (Bld) 3.5 % 0-5 [facility] Glucose [Mass/Vol] 101 mg/dL 74-106 [facility] Comment on above: Fasting Glucose resu lt from 100 to 125 mg/dL suggests IMPAIRED HOMEOSTASIS per A.D.A. criteria. Neutrophils (Bld) [#/Vol] 5.1 10*3/uL 2.0-7.7 [facility] Neutrophils/100 WBC (Bld) 55.7 % 47-70 [facility] Potassium [Moles/Vol] 4.0 mmol/L 3.5-5.1 [place] Sodium [Moles/Vol] 138 mmol/L 136-145 [facility] WBC (Bld) [#/Vol] 9.2 10*3/uL 4.4-11.0 [facility] Blood erythrocytes count (nu mber/volume)Ordered By: Dr. Kapadia on 07-03-2022 RBC (Bld) [#/Vol] 5.43 10*6/uL 4.6-6.2 [facility] Blood hemoglobin measurement (mass/volume)Ordered By: Dr. Kapadia on 07-03-2022 Hemoglobin (Bld) [Mass/Vol] 15.8 g/dL 13.0-16.5 [facility] Blood lymphocytes/100 leukoc ytesOrdered By: Dr. Kapadia on 07-03-2022 Lymphocytes/100 WBC (Bld) 32.1 % 19-41 [facility] Blood monocytes/100 leukocyt esOrdered By: Dr. Kapadia on 07-03-2022 Monocytes/100 WBC (Bld) 5.2 % 0-10 [facility] Blood platelet mean volumeOr dered By: Dr. Kapadia on 07-03-2022 Platelet mean volume (Bld) [Entitic vol] 9.1 fL 6.2-12.0 [facility] Determination of erythrocyte mean corpuscular volume (MCV)Ordered By: Dr. Kapadia on 07-03-2022 MCV (RBC) [Entitic vol] 84.3 fL 80-94 [facility] Hematocrit Auto (Bld) [Volum e fraction]Ordered By: Dr. Kapadia on 07-03-2022 Hematocrit (Bld) [Volume fraction] 45.8 % 40-54 [facility] Laboratory - Chemistry and C hemistry - challengeOrdered By: Dr. Kapadia on 07-03-2022 CO2 [Moles/Vol] 27.0 mmol/L 21.0-32.0 [facility] Urea nitrogen/Creatinine [Mass ratio] 19.6 mg/mg 10-20 [facility] Laboratory - Hematology and Cell countsOrdered By: Dr. Kapadia on 07-03-2022 Erythrocyte distribution width (RBC) [Entitic vol] 43.8 fL 35.1-43.9 [facility] Erythrocyte distribution width (RBC) [Ratio] 14.2 % 11.6-14.6 [facility] Immature granulocytes/100 WBC (Bld) 2.400 % 0.0-0.9 [facility] Comment on above: IG% - Immature Granu locytes (promyelocytes, myelocytes and metamyelocytes) > 1% indicates that a LEFT SHIFT is Present. MCH (RBC) [Entitic mass] 29.1 pg 27.0-32.0 [facility] Nucleated RBC/100 WBC (Bld) [Ratio] 0 % 0-5 [facility] MCHC Auto (RBC) [Mass/Vol]Or dered By: Dr. Kapadia on 07-03-2022 MCHC (RBC) [Mass/Vol] 34.5 g/dL 32-36 [place] No Panel InformationOrdered By: Dr. Kapadia on 07-03-2022 Estimated Creatinine Clearance Calc 103.13 ml/min [facility] Estimated GFR (MDRD) Amer 98 mL/min >60 [facility] Comment on above: GFR Calc Estimated GFR (MDRD) Non-Af Amer 81 mL/min >60 [facility] Comment on above: Non- GFR Calc Troponin I High Sensitivity 6 pg/mL 3.0-78.0 [facility] Comment on above: Please Note: New Loli t Units and Gender Specific Reference Ranges. For more information see Policy Stat Procedure [place] High Sensitivity Troponin (TNIH) and attachments. Platelets bldOrdered By: Dr. Kapadia on 07-03-2022 Platelets (Bld) [#/Vol] 308 10*3/uL 150-450 [facility] Serum or plasma calcium alexandrea urement (mass/volume)Ordered By: Dr. Kapadia on 07-03-2022 Calcium [Mass/Vol] 9.6 mg/dL 8.5-10.1 [facility] Serum or plasma creatinine m easurement (mass/volume)Ordered By: Dr. Kapadia on 07-03-2022 Creatinine [Mass/Vol] 1.02 mg/dL 0.70-1.30 [place] Comment on above: The validity of the calculated GFR & GFRAA in patients over 70 years has not been determined. Clinical correlation is essential. Serum or plasma urea nitroge n measurement (mass/volume)Ordered By: Dr. Kapadia on 07-03-2022 Urea nitrogen [Mass/Vol] 20 mg/dL 7-18 [facility] Thin prep Papanicolaou smear with manual screeningOrdered By: Dr. Kapadia on 07-03-2022 Thin prep Papanicolaou smear with manual screening 8 5-15 [facility] Absolute lymphocyte countOrd ered By: Jess Rosas on 05-15-2022 Lymphocytes Auto (Unsp spec) [#/Vol] 1.91 10*3/uL 0.83-4.51 [facility] Basophil percentageOrdered B y: Jess Rosas on 05-15-2022 Basophils/100 WBC (Bld) 1.2 % 0-1 [facility] Bilirubin [Mass/Vol] 0.40 mg/dL 0.20-1.00 [facility] Comment on above: For patients on eltr ombopag therapy, use of Dimension [place] TBIL is not recommended. Chloride [Moles/Vol] 106 mmol/L 98-107 [facility] Eosinophils/100 WBC (Bld) 3.3 % 0-5 [facility] Glucose [Mass/Vol] 109 mg/dL 74-106 [facility] Comment on above: Fasting Glucose resu lt from 100 to 125 mg/dL suggests IMPAIRED HOMEOSTASIS per A.D.A. criteria. Neutrophils (Bld) [#/Vol] 3.3 10*3/uL 2.0-7.7 [facility] Neutrophils/100 WBC (Bld) 57.0 % 47-70 [facility] Potassium [Moles/Vol] 4.2 mmol/L 3.5-5.1 [place] Protein [Mass/Vol] 7.9 g/dL 6.4-8.2 [facility] Sodium [Moles/Vol] 139 mmol/L 136-145 [facility] Testosterone [Mass/Vol] 429 ng/dL 264-916 [facility] Comment on above: Adult male reference interval is based on a population ofhealthy nonobese males (BMI <30) between 19 and 39 yearsold. Devan et.al. JCEM 2017,102;1703-0027. PMID:[id number]. WBC (Bld) [#/Vol] 5.8 10*3/uL 4.4-11.0 [facility] Blood erythrocytes count (nu mber/volume)Ordered By: Jess Rosas on 05-15-2022 RBC (Bld) [#/Vol] 5.37 10*6/uL 4.6-6.2 [facility] Blood hemoglobin measurement (mass/volume)Ordered By: Jess Rosas on 05-15-2022 Hemoglobin (Bld) [Mass/Vol] 15.6 g/dL 13.0-16.5 [facility] Blood lymphocytes/100 leukoc ytesOrdered By: Jess Rosas on 05-15-2022 Lymphocytes/100 WBC (Bld) 33.1 % 19-41 [facility] Blood monocytes/100 leukocyt esOrdered By: Jess Rosas on 05-15-2022 Monocytes/100 WBC (Bld) 5.2 % 0-10 [facility] Blood platelet mean volumeOr dered By: Jess Rosas on 05-15-2022 Platelet mean volume (Bld) [Entitic vol] 9.7 fL 6.2-12.0 [facility] Determination of erythrocyte mean corpuscular volume (MCV)Ordered By: Jess Rosas on 05-15-2022 MCV (RBC) [Entitic vol] 84.5 fL 80-94 [facility] Erythrocyte sedimentation ra teOrdered By: Jess Rosas on 05-15-2022 ESR (Bld) [Velocity] 10 mm/h 0-20 [facility] Free testosterone percentage Ordered By: Jess Rosas on 05-15-2022 Testosterone Free/Testosterone.total [Mass fraction] 2.23 % 1.50-4.20 [facility] Comment on above: Performed at: [address] [id number] Director: Loy Lopez PhD, Phone: [phone] at: [employer] [facility] [employer] [address] [id number] Director: Sylvia Chapman MD, Phone: [phone] Hematocrit Auto (Bld) [Volum e fraction]Ordered By: Jess Rosas on 05-15-2022 Hematocrit (Bld) [Volume fraction] 45.4 % 40-54 [facility] Laboratory - Chemistry and C hemistry - challengeOrdered By: Jess Rosas on 05-15-2022 ALP [Catalytic activity/Vol] 63 U/L 45-117 [facility] ALT [Catalytic activity/Vol] 24 U/L 16-61 [facility] CO2 [Moles/Vol] 28.0 mmol/L 21.0-32.0 [facility] Globulin (S) [Mass/Vol] 3.8 g/dL 2.2-4.2 [facility] Urea nitrogen/Creatinine [Mass ratio] 12.5 mg/mg 10-20 [facility] Laboratory - Hematology and Cell countsOrdered By: Jess Rosas on 05-15-2022 Erythrocyte distribution width (RBC) [Entitic vol] 42.8 fL 35.1-43.9 [facility] Erythrocyte distribution width (RBC) [Ratio] 13.9 % 11.6-14.6 [facility] Immature granulocytes/100 WBC (Bld) 0.200 % 0.0-0.9 [facility] Comment on above: IG% - Immature Granu locytes (promyelocytes, myelocytes and metamyelocytes) > 1% indicates that a LEFT SHIFT is Present. MCH (RBC) [Entitic mass] 29.1 pg 27.0-32.0 [facility] Nucleated RBC/100 WBC (Bld) [Ratio] 0 % 0-5 [facility] MCHC Auto (RBC) [Mass/Vol]Or dered By: Jess Rosas on 05-15-2022 MCHC (RBC) [Mass/Vol] 34.4 g/dL 32-36 [place] No Panel InformationOrdered By: Jess Rosas on 05-15-2022 Estimated GFR (MDRD) Amer 95 mL/min >60 [facility] Comment on above: GFR Calc Estimated GFR (MDRD) Non-Af Amer 79 mL/min >60 [facility] Comment on above: Non- GFR Calc Prostate Specific Antigen Screen 2.69 ng/mL 0.00-4.00 [facility] Comment on above: This test was perfor med using the TPSA assay method for the[facility]ill [facility]. Values obtained with differentassay methods cannot be used interchangably.When changing PSA assays in the course of monitoring apatient, additional sequential testing should be carriedout to confirm baseline values. Thyroid Stimulating Hormone (TSH) 0.84 uIU/mL 0.358-3.74 [facility] Platelets bldOrdered By: Mariah Rosas on 05-15-2022 Platelets (Bld) [#/Vol] 297 10*3/uL 150-450 [facility] Serum or plasma C reactive p rotein measurement (mass/volume)Ordered By: Jess Rosas on 05-15-2022 CRP [Mass/Vol] 8.24 mg/L 0.0-3.0 [facility] Comment on above: C-Reactive Protein ( CRP) provides useful information for thediagnosis, therapy and monitoring of inflammatory processesand associated diseases. For the evaluation of Relative Riskfor Cardiovascular Disease, a High Sensitivity CRP (HSCRP)should be ordered. Serum or plasma albumin alexandrea urement (mass/volume)Ordered By: Jess Rosas on 05-15-2022 Albumin [Mass/Vol] 4.1 g/dL 3.2-5.0 [facility] Serum or plasma albumin/glob ulin mass ratioOrdered By: Jess Rosas on 05-15-2022 Albumin/Globulin [Mass ratio] 1.1 {ratio} 0.9-2.4 [facility] Serum or plasma calcium alexandrea urement (mass/volume)Ordered By: Jess Rosas on 05-15-2022 Calcium [Mass/Vol] 9.5 mg/dL 8.5-10.1 [facility] Serum or plasma creatinine m easurement (mass/volume)Ordered By: Jess Rosas on 05-15-2022 Creatinine [Mass/Vol] 1.04 mg/dL 0.70-1.30 [place] Comment on above: The validity of the calculated GFR & GFRAA in patients over 70 years has not been determined. Clinical correlation is essential. Serum or plasma testosterone free measurement (mass/volume)Ordered By: Jess Rosas on 05-15-2022 Testosterone Free [Mass/Vol] 9.57 ng/dL 5.00-21.00 [facility] Serum or plasma urea nitroge n measurement (mass/volume)Ordered By: Jess Rosas on 05-15-2022 Urea nitrogen [Mass/Vol] 13 mg/dL 7-18 [facility] Thin prep Papanicolaou smear with manual screeningOrdered By: Jess Rosas on 05-15-2022 Thin prep Papanicolaou smear with manual screening 17 U/L 15-37 [facility] Thin prep Papanicolaou smear with manual screening 5 5-15 [facility] O2 SATURATION (POC)on 2021 %HbO2 (Oxyhemoglobin)(POCT) 94.7 % [facility] Additional Comments (POCT) Venous 60%-85%; Arterial 95%-98% [facility] Comment (POCT) No anatomical site given %HBO2 ref range [facility] Hemoglobin (Bld) [Mass/Vol] 13.3 g/dL Abnormal 13.5 - 17.5 g/dL [facility] %HbO2 (Oxyhemoglobin)(POCT) 69.5 % [facility] Additional Comments (POCT) Venous 60%-85%; Arterial 95%-98% [facility] Comment (POCT) No anatomical site given %HBO2 ref range [facility] Hemoglobin (Bld) [Mass/Vol] 12.9 g/dL Abnormal 13.5 - 17.5 g/dL [facility] %HbO2 (Oxyhemoglobin)(POCT) 72.4 % [facility] Additional Comments (POCT) Venous 60%-85%; Arterial 95%-98% [facility] Comment (POCT) No anatomical site given %HBO2 ref range [facility] Hemoglobin (Bld) [Mass/Vol] 12.5 g/dL Abnormal 13.5 - 17.5 g/dL [facility] Absolute lymphocyte counton 10-01-2021 Lymphocytes Auto (Unsp spec) [#/Vol] 2.81 10*3/uL 0.83-4.51 [facility] Work Phone: Basophil percentageon 2021 Basophils/100 WBC (Bld) 1.0 % 0-1 [facility] Work Phone: Bilirubin [Mass/Vol] 0.40 mg/dL 0.20-1.00 [facility] Work Phone: Comment on above: For patients on eltr ombopag therapy, use of Dimension [place] TBIL is not recommended. Chloride [Moles/Vol] 102 mmol/L 98-107 [facility] Work Phone: Eosinophils/100 WBC (Bld) 4.3 % 0-5 [facility] Work Phone: Glucose [Mass/Vol] 99 mg/dL 74-106 [facility] Work Phone: Neutrophils (Bld) [#/Vol] 3.9 10*3/uL 2.0-7.7 [facility] Work Phone: Neutrophils/100 WBC (Bld) 51.2 % 47-70 [facility] Work Phone: Potassium [Moles/Vol] 4.6 mmol/L 3.5-5.1 [facility] Work Phone: Protein [Mass/Vol] 7.9 g/dL 6.4-8.2 [facility] Work Phone: Sodium [Moles/Vol] 137 mmol/L 136-145 [facility] Work Phone: [phone] WBC (Bld) [#/Vol] 7.6 10*3/uL 4.4-11.0 [facility] Work Phone: [phone] Blood erythrocytes count (nu mber/volume)on 10-01-2021 RBC (Bld) [#/Vol] 4.72 10*6/uL 4.6-6.2 [facility]: Blood hemoglobin measurement (mass/volume)on 10-01-2021 Hemoglobin (Bld) [Mass/Vol] 13.9 g/dL 13.0-16.5 [facility] Work Phone: [phone] Blood lymphocytes/100 leukoc yteson 10-01-2021 Lymphocytes/100 WBC (Bld) 36.8 % 19-41 [facility] Work Phone: [phone] Blood monocytes/100 leukocyt eson 10-01-2021 Monocytes/100 WBC (Bld) 6.3 % 0-10 [facility] Work Phone: Blood platelet mean volumeon 10-01-2021 Platelet mean volume (Bld) [Entitic vol] 10.4 fL 6.2-12.0 [facility] Work Phone: Determination of erythrocyte mean corpuscular volume (MCV)on 10-01-2021 MCV (RBC) [Entitic vol] 83.9 fL 80-94 [facility] Work Phone: Hematocrit Auto (Bld) [Volum e fraction]on 10-01-2021 Hematocrit (Bld) [Volume fraction] 39.6 % 40-54 [facility] Work Phone: Laboratory - Chemistry and C hemistry - challengeon 10-01-2021 ALP [Catalytic activity/Vol] 67 U/L 45-117 [facility] Work Phone: [phone] ALT [Catalytic activity/Vol] 29 U/L 16-61 [facility] Work Phone: [phone] CO2 [Moles/Vol] 31.0 mmol/L 21.0-32.0 [facility] Work Phone: [phone] Globulin (S) [Mass/Vol] 3.8 g/dL 2.2-4.2 [facility] Work Phone: [phone] Natriuretic peptide B (Bld) [Mass/Vol] 39.2 pg/mL 0-100 [facility] Work Phone: [phone] Urea nitrogen/Creatinine [Mass ratio] 15.1 mg/mg 10-20 [facility] Work Phone: [phone] Laboratory - Hematology and Cell countson 10-01-2021 Erythrocyte distribution width (RBC) [Entitic vol] 40.8 fL 35.1-43.9 [facility] Work Phone: [phone] Erythrocyte distribution width (RBC) [Ratio] 13.2 % 11.6-14.6 [facility] Work Phone: [phone] Immature granulocytes/100 WBC (Bld) 0.400 % 0.0-0.9 [facility] Work Phone: [phone] Comment on above: IG% - Immature Granu locytes (promyelocytes, myelocytes and metamyelocytes) > 1% indicates that a LEFT SHIFT is Present. MCH (RBC) [Entitic mass] 29.4 pg 27.0-32.0 [facility] Work Phone: [phone] Nucleated RBC/100 WBC (Bld) [Ratio] 0 % 0-5 [facility] Work Phone: [phone] MCHC Auto (RBC) [Mass/Vol]on 10-01-2021 MCHC (RBC) [Mass/Vol] 35.1 g/dL 32-36 [facility] Work Phone: [phone] Panel Informationon 10-01 Estimated GFR (MDRD) Amer 77 mL/min >60 [facility] Work Phone: Comment on above: GFR Calc Estimated GFR (MDRD) Non-Af Amer 63 mL/min >60 [facility] Work Phone: Comment on above: Non- GFR Calc Platelets bldon 10-01-2021 Platelets (Bld) [#/Vol] 260 10*3/uL 150-450 [facility] Work Phone: Serum or plasma albumin alexandrea urement (mass/volume)on 10-01-2021 Albumin [Mass/Vol] 4.1 g/dL 3.2-5.0 [facility] Work Phone: Serum or plasma albumin/glob ulin mass ratioon 10-01-2021 Albumin/Globulin [Mass ratio] 1.1 {ratio} 0.9-2.4 [facility] Work Phone: Serum or plasma calcium alexandrea urement (mass/volume)on 10-01-2021 Calcium [Mass/Vol] 9.6 mg/dL 8.5-10.1 [facility] Work Phone: Serum or plasma creatinine m easurement (mass/volume)on 10-01-2021 Creatinine [Mass/Vol] 1.26 mg/dL 0.70-1.30 [place] Work Phone: Comment on above: The validity of the calculated GFR & GFRAA in patients over 70 years has not been determined. Clinical correlation is essential. Serum or plasma urea nitroge n measurement (mass/volume)on 10-01-2021 Urea nitrogen [Mass/Vol] 19 mg/dL 7-18 [facility] Work Phone: Thin prep Papanicolaou smear with manual screeningon 10-01-2021 Thin prep Papanicolaou smear with manual screening 18 U/L 15-37 [facility] Work Phone: [phone] Thin prep Papanicolaou smear with manual screening 4 5-15 [facility] Work Phone: NM CARDIAC PERF STRESS/PHARM on 09-08-2021 NM CARDIAC PERF STRESS/PHARM * * *Final Report* * * DATE OF EXAM: Sep 08 2021 3:30PM HERMELINDA 0006 - NM CARDIAC PERF STRESS/PHARM / PROCEDURE REASON: multiple diagnoses * * * * Physician Interpretation * * * * PATIENT: Name: HAYDEN PENDLETON Age: 56 years Gender: M CONCLUSIONS: 1. SPECT Perfusion Study: Normal. 2. There is no scintigraphic evidence for inducible ischemia. 3. No evidence of scarred myocardium. 4. Left ventricle is normal in size. The left ventricle systolic function is normal. 5. This is a low risk scan. Gated Stress IR:3D LVEF % 71 Prior Study Comparison No prior nuclear cardiology exam available for comparison. Nuclear Med Report:1-Day Tc-Tetrofosmin Gated SPECT Myocardial Perfusion with Regadenoson Stress: Myocardial perfusion imaging was performed at rest 30 minutes following the IV injection of Tc-99m tetrofosmin. The patient received 0.4 mg of regadenoson, via rapid IV push, immediately followed by Tc-99m tetrofosmin IV. Gated post stress tomographic imaging was performed 30 to 60 minutes later. See administered doses below. [facility] Date of service: 09/08/2021 1:34:15 PM Ordering Physician: FELICITAS CHAVEZ. Requesting Physician: Indication: Chest pain/anginal equiv, intermediate CAD risk, not treadmill candidate Interpreting physician: Jennifer Butler MD Previous Cardiovascular Interventions: CABG (2020 x 4) Height: 182.88 cm BSA: 2.19 m? Weight: 94.80 kg BMI: 28.3 kg/m? Imaging Protocol Limitation Reason Patient motion. Exam Type: Rest Stress Radiopharm: Tc-99m Tetrofosmin Tc-99m Tetrofosmin Dosage(mCi): 12.5 32.7 Atten Correction: not performed not performed Stress Agent: Regadenoson 0.4mg Supply provided from [facility] Resting Blood Press: 151/98 mmHg Image Quality The overall study imaging quality was deemed to be fair. The following technical issues were noted: Patient motion. FINDINGS: Stress IR:3D Gated Stress IR:3D LVEF: 71 % ED Volume: 109 ml ES Volume: 32 ml TID: 1.13 Perfusion Findings Stress IR:3D - Summed Score=0 All segments demonstrate normal perfusion. Rest IR:3D - Summed Score=0 All segments demonstrate normal perfusion. Stress IR:3D Rest IR:3D Summed Score=0 Summed Score=0 LEFT VENTRICLE The left ventricle is normal in size. Left ventricular systolic function is normal. Abnormal septal motion consistent with prior cardiac surgery. Stress Test Findings: There is no scintigraphic evidence for inducible ischemia. There is no evidence of scarring. Final -------- Stress ECG Report: [facility] Date of service: 09/08/2021 1:34:15 PM Ordering physician: FELICITAS CHAVEZ site acquisition specialist: Sadia Dudley Slackline Operator: Vani Perdomo Interpreting physician: Adelfo Canales MD Patient name: HAYDNE PENDLETON Age: 56 years Gender: M Height: 182.88 cm BSA: 2.19 m? Weight: 94.80 kg BMI: 28.3 kg/m? Indication: Chest pressure / Chest tightness Stress ECG Conclusion: Conclusion: Normal Stress ECG Summary: The patient's resting heart rate was 89 bpm and blood pressure was 151/98 mmHg. The test was terminated due to end of protocol. Other symptoms during the test included SOB. The maximum heart rate was 105 bpm, which is 63% of the predicted heart rate for age. Peak blood pressure was 186/83 mmHg. The double product achieved was 78387. Previous cardiovascular interventions: CABG (2020 x 4) Medications: Last Used IMDUR CRESTOR METOPROLOL PRILOSEC RELAFEN DELTASONE ASPIRIN CELEXA ALBUTEROL INHALER Resting ECG: Normal Sinus Rhythm and Occasional PVCs (3-7/Min) Symptoms at rest: No symptoms Pharamcologic Protocol: Regadenoson Stress Exercise Table: +-----+---+---+---+ Stage HR SYS TAYLOR +-----+---+---+---+ 1 98 186 83 +-----+---+---+---+ 2 105 161 81 +-----+---+---+---+ 3 100 177 93 +-----+---+---+---+ 4 99 149 80 +-----+---+---+---+ 5 95 178 75 +-----+---+---+---+ 6 96 154 80 +-----+---+---+---+ +-----+---+---+---+ HR SYS TAYLOR +-----+---+---+---+ Final 105 186 83 +-----+---+---+---+ Stress Observations: Resting HR: 89 bpm Peak HR: 105 bpm (63% MPHR) Resting BP: 151 / 98 mmHg Peak BP: 186 / 83 mmHg Rate Pressure Product (RPP): 23715 Stress Exercise Observations: Reason for test termination: end of protocol, Symptoms during test: Other symptoms during the test included SOB, ST segment and T wave changes: No ST changes and Arrhythmias: Unifocal PVCs Final -------- Stress Math Teacher Report: [facility] Date of service: 09/08/2021 1:34:15 PM (more content not included)... Normal [facility] Radha 09-05-2021 [facility] Telephone ([facility]) HAYDEN PENDLETON ([id number]) 1965 M Date Time Provider Department 09/05/21 VANI PERDOMO [facility] During your visit today, we recorded the following information about you: Vani Perdomo RN 09/05/2021 2:37 PM Signed Left message regarding reminder for stress test on Wednesday and given instructions Allergies As of Date: 09/05/2021 Noted Allergy Reaction OXYCOTIN (OXYCODONE) 04/24/2015 2 - Rash PREDNISONE 04/24/2015 5 - Intolerance Comments: flushing of skin-steriods Date Reviewed: 09/03/2021 Reviewed by: Felicitas Chavez MD - Fully Assessed Reason for Visit: Reminder Call [[id number]] Prescriptions as of 09/05/2021 - isosorbide mononitrate ER (IMDUR) 30 mg 24 hr tablet Take 1 tablet by mouth once daily. - rosuvastatin (CRESTOR) 20 mg tablet TAKE 1 TABLET BY MOUTH EVERY DAY AT BEDTIME - metoprolol tartrate, short acting, (LOPRESSOR) 25 mg tablet Take 1 tablet by mouth twice daily. - ezetimibe (ZETIA) 10 mg tablet Take 1 tablet by mouth once daily. - gabapentin (NEURONTIN) 100 mg capsule Take by mouth. - HYDROcodone-acetamino phen (NORCO) 5-325 mg per tablet Take 1 tablet by mouth twice daily as needed. - nabumetone (RELAFEN) 500 mg tablet Take by mouth. - omeprazole (PRILOSEC) 40 mg capsule - oxyCODONE-acetaminoph en (PERCOCET) 5-325 mg tablet - pantoprazole DR (PROTONIX) 20 mg tablet Take 20 mg by mouth once daily. - predniSONE (DELTASONE) 10 mg tablet Take by mouth. - aspirin 81 mg chewable tablet Take 1 tablet by mouth once daily. - acetaminophen (TYLENOL) 500 mg tablet Take 2 tablets by mouth every 6 hours as needed for pain. - lidocaine (SALONPAS) 4 % patch Apply 1 Patch as directed once daily. Cut in half and apply to either side of midsternal chest incision. Remove after 12 hrs. - melatonin 3 mg tablet Take 1 tablet by mouth at bedtime as needed (insomnia). - nicotine (NICODERM) 14 mg/24 hr Apply 1 Patch as directed once daily. - citalopram (CELEXA) 40 mg tablet Take 40 mg by mouth once daily. - albuterol HFA (PROVENTIL HFA, VENTOLIN HFA) 90 mcg/actuation inhaler Inhale 2 Puffs as instructed. Facility-Administered Medications as of 09/05/2021 - perflutren lipid microspheres 1.3 mL in NaCl (PF) 0.9% 10 mL injection (DEFINITY) - sodium chloride 0.9 % (flush) 10 mL (BD POSIFLUSH) Problem List As Of Date 09/05/2021 Noted Resolved Stable angina pectoris due to arteriosclerosis *10/22/2020 Nicotine use disorder, F17.2 [F17.200] 10/26/2020 S/P CABG x 4 [Z95.1] 10/28/2020 Knee pain [M25.569] 01/14/2021 Anxiety [F41.9] 01/14/2021 Arteriosclerosis of coronary artery [I25.10] 01/14/2021 Arthritis [M19.90] 01/14/2021 Back pain [M54.9] 01/14/2021 Depressive disorder [F32.A] 01/14/2021 Difficulty balancing [R29.818] 01/14/2021 Gastric ulcer [K25.9] 01/14/2021 Hyperlipidemia [E78.5] 01/14/2021 Hypertension [I10] 01/14/2021 Olecranon bursitis of right elbow [M70.21] 01/14/2021 Positive antinuclear antibody [R76.8] 01/14/2021 Postoperative pain [G89.18] 01/14/2021 Shortness of breath [R06.02] 01/14/2021 Shoulder pain [M25.519] 01/14/2021 Sleep apnea [G47.30] 01/14/2021 Tachycardia [R00.0] 01/14/2021 Vertigo [R42] 01/14/2021 Encounter Status:Closed by VANI PERDOMO on 09/05/21 [facility] Absolute lymphocyte counton 08-29-2021 Lymphocytes Auto (Unsp spec) [#/Vol] 2.14 10*3/uL 0.83-4.51 [facility] Work Phone: Basophil percentageon 2021 Basophils/100 WBC (Bld) 1.3 % 0-1 [facility] Work Phone: Chloride [Moles/Vol] 107 mmol/L 98-107 [facility] Work Phone: Eosinophils/100 WBC (Bld) 4.8 % 0-5 [facility] Work Phone: Glucose [Mass/Vol] 110 mg/dL 74-106 [facility] Work Phone: Comment on above: Fasting Glucose resu lt from 100 to 125 mg/dL suggests IMPAIRED HOMEOSTASIS per A.D.A. criteria. Neutrophils (Bld) [#/Vol] 5.4 10*3/uL 2.0-7.7 [facility] Work Phone: Neutrophils/100 WBC (Bld) 62.7 % 47-70 [facility] Work Phone: Potassium [Moles/Vol] 4.1 mmol/L 3.5-5.1 [place] Work Phone: Sodium [Moles/Vol] 141 mmol/L 136-145 [facility] Work Phone: WBC (Bld) [#/Vol] 8.6 10*3/uL 4.4-11.0 [facility] Work Phone: Blood erythrocytes count (nu mber/volume)on 08-29-2021 RBC (Bld) [#/Vol] 4.69 10*6/uL 4.6-6.2 [facility] Work Phone: Blood hemoglobin measurement (mass/volume)on 08-29-2021 Hemoglobin (Bld) [Mass/Vol] 13.9 g/dL 13.0-16.5 [facility] Work Phone: Blood lymphocytes/100 leukoc yteson 08-29-2021 Lymphocytes/100 WBC (Bld) 24.8 % 19-41 [facility] Work Phone: Blood monocytes/100 leukocyt eson 08-29-2021 Monocytes/100 WBC (Bld) 6.1 % 0-10 [facility] Work Phone: [phone] Blood platelet mean volumeon 08-29-2021 Platelet mean volume (Bld) [Entitic vol] 10.1 fL 6.2-12.0 [facility] Work Phone: [phone] Determination of erythrocyte mean corpuscular volume (MCV)on 08-29-2021 MCV (RBC) [Entitic vol] 82.5 fL 80-94 [facility] Work Phone: [phone] Hematocrit Auto (Bld) [Volum e fraction]on 08-29-2021 Hematocrit (Bld) [Volume fraction] 38.7 % 40-54 [facility] Work Phone: [phone] Laboratory - Chemistry and C hemistry - challengeon 08-29-2021 CO2 [Moles/Vol] 29.0 mmol/L 21.0-32.0 [facility] Work Phone: [phone] Urea nitrogen/Creatinine [Mass ratio] 14.2 mg/mg 10-20 [facility] Work Phone: [phone] Laboratory - Hematology and Cell countson 08-29-2021 Erythrocyte distribution width (RBC) [Entitic vol] 42.4 fL 35.1-43.9 [facility] Work Phone: [phone] Erythrocyte distribution width (RBC) [Ratio] 14.3 % 11.6-14.6 [facility] Work Phone: [phone] Immature granulocytes/100 WBC (Bld) 0.300 % 0.0-0.9 [facility] Work Phone: [phone] Comment on above: IG% - Immature Granu locytes (promyelocytes, myelocytes and metamyelocytes) > 1% indicates that a LEFT SHIFT is Present. MCH (RBC) [Entitic mass] 29.6 pg 27.0-32.0 [facility] Work Phone: [phone] Nucleated RBC/100 WBC (Bld) [Ratio] 0 % 0-5 [facility] Work Phone: [phone] MCHC Auto (RBC) [Mass/Vol]on 08-29-2021 MCHC (RBC) [Mass/Vol] 35.9 g/dL 32-36 [place] Work Phone: No Panel Informationon 08-29 Troponin I High Sensitivity 5 pg/mL 3.0-78.0 [facility] Work Phone: Comment on above: Please Note: New Loli t Units and Gender Specific Reference Ranges. For more information see Policy Stat Procedure [place] High Sensitivity Troponin (TNIH) and attachments. Estimated Creatinine Clearance Calc 65.74 ml/min [facility] Work Phone: Estimated GFR (MDRD) Amer 67 mL/min >60 [facility] Work Phone: Comment on above: GFR Calc Estimated GFR (MDRD) Non-Af Amer 56 mL/min >60 [facility] Work Phone: Comment on above: Non- GFR Calc Platelets bldon 08-29-2021 Platelets (Bld) [#/Vol] 265 10*3/uL 150-450 [facility] Work Phone: Serum or plasma calcium alexandrea urement (mass/volume)on 08-29-2021 Calcium [Mass/Vol] 9.0 mg/dL 8.5-10.1 [facility] Work Phone: Serum or plasma creatinine m easurement (mass/volume)on 08-29-2021 Creatinine [Mass/Vol] 1.41 mg/dL 0.70-1.30 [place] Work Phone: Comment on above: The validity of the calculated GFR & GFRAA in patients over 70 years has not been determined. Clinical correlation is essential. Serum or plasma urea nitroge n measurement (mass/volume)on 08-29-2021 Urea nitrogen [Mass/Vol] 20 mg/dL 7-18 [facility] Work Phone: Thin prep Papanicolaou smear with manual screeningon 08-29-2021 Thin prep Papanicolaou smear with manual screening 5 5-15 [facility] Work Phone: XR Chest PA and Lateralon IMPRESSION: No acute radiographic abnormality. Machine Coremaker: JACKI Transcribe Date/Time: Nov 22 2020 1:59P Dictated by : JEROD SEGOVIA MD This examination was interpreted and the report reviewed and electronically signed by: JEROD SEGOVIA MD on Nov 22 2020 2:02PM [facility] [place] DIVISION OF RADIOLOGY * * *Final Report* * * DATE OF EXAM: Nov 22 2020 1:44PM WOX [id number] - XR CHEST 2V FRONTAL/LAT / PROCEDURE REASON: S/P CABG x 4 * * * * Physician Interpretation * * * * EXAMINATION: CHEST RADIOGRAPH (2 VIEW FRONTAL & LATERAL) CLINICAL HISTORY: S/P CABG x 4 MQ: XC2_6 EXAM DATE/TIME: 11/22/2020 1:44 PM COMPARISON: Chest x-ray on 10/28/2020. RESULT: Lines, tubes, and devices: None. Lungs and pleura: There are foci of calcifications overlying the right lower lung. No consolidation. No lung mass. No pleural effusion or pneumothorax. Cardiomediastinal silhouette: The cardiac silhouette and mediastinal contour are within normal limits. Bones and soft tissues: Status post median sternotomy and CABG. The spine shows degenerative changes. DIVISION OF RADIOLOGY Provider, [facility] - 11/22/2020 * * *Final Report* * * DATE OF EXAM: Nov 22 2020 1:44PM WOX 5291 - XR CHEST 2V FRONTAL/LAT / PROCEDURE REASON: S/P CABG x 4 * * * * Physician Interpretation * * * * EXAMINATION: CHEST RADIOGRAPH (2 VIEW FRONTAL & LATERAL) CLINICAL HISTORY: S/P CABG x 4 MQ: XC2_6 EXAM DATE/TIME: 11/22/2020 1:44 PM COMPARISON: Chest x-ray on 10/28/2020. RESULT: Lines, tubes, and devices: None. Lungs and pleura: There are foci of calcifications overlying the right lower lung. No consolidation. No lung mass. No pleural effusion or pneumothorax. Cardiomediastinal silhouette: The cardiac silhouette and mediastinal contour are within normal limits. Bones and soft tissues: Status post median sternotomy and CABG. The spine shows degenerative changes. IMPRESSION IMPRESSION: No acute radiographic abnormality. Machine Coremaker: JACKI Transcribe Date/Time: Nov 22 2020 1:59P Dictated by : JEROD SEGOVIA MD This examination was interpreted and the report reviewed and electronically signed by: JEROD SEGOVIA MD on Nov 22 2020 2:02PM EST [facility] Radiology Study [facility] (narrative[facility]R Chest PA and LateralOrder ed By: [facility] Provider on 11-22-2020 [facility] Vital Signs Date Time Vital Sign Value Performing Clinician Facility 07-05-2024 08:14-0400 Body height 185.42 cm Jess Rosas [employer] Work Phone: [phone] [address] 07-05-2024 08:14-0400 Body mass index (BMI) [Ratio] 27.1 kg/m2 Jess Rosas [employer] Work Phone: [phone])[phone] [place] [address] 07-05-2024 08:14-0400 Body temperature 98 [degF] Jess Rosas [employer] Work Phone: [phone] [place] [address] 07-05-2024 08:14-0400 Body weight 93.44 kg Jess Rosas [employer] Work Phone: [phone] [place] [address] 07-05-2024 08:14-0400 Diastolic blood pressure 61 mm[Hg] Jess Rosas [employer] Work Phone: [phone] [place] [address] 07-05-2024 08:14-0400 Heart rate 70 /min Jess Rosas [employer] Work Phone: [phone] [place] [address] 07-05-2024 08:14-0400 Respiratory rate 16 /min Jess Rosas [employer] Work Phone: [phone] [place] [address] 07-05-2024 08:14-0400 SaO2% (BldA) [Mass fraction] 97 % Jess Rosas [employer] Work Phone: [phone] [place] [address] 07-05-2024 08:14-0400 Systolic blood pressure 102 mm[Hg] Jess Rosas [employer] Work Phone: [phone] [place] [address] 06-06-2024 14:50-0400 Body height 185.4 cm Felicitas Chavez MD Work Phone: [facility] 06-06-2024 14:50-0400 Body mass index (BMI) [Ratio] 26.65 kg/m2 Felicitas Chavez MD Work Phone: [facility] 06-06-2024 14:50-0400 Body weight 91.63 kg Felicitas Chavez MD Work Phone: [facility] 06-06-2024 14:50-0400 Diastolic blood pressure 71 mm[Hg] Felicitas Chavez MD Work Phone: [facility] 06-06-2024 14:50-0400 Respiratory rate 16 /min Felicitas Chavez MD Work Phone: [facility] 06-06-2024 14:50-0400 SaO2% (BldA) [Mass fraction] 96 % Felicitas Chavez MD Work Phone: [facility] 06-06-2024 14:50-0400 Systolic blood pressure 123 mm[Hg] Felicitas Chavez MD Work Phone: [facility] 05-26-2024 15:27-0400 Body mass index (BMI) [Ratio] 26.4 kg/m2 Jess Bentonder [employer] Work Phone: [facility] 05-26-2024 14:40-0400 Body temperature 98 [degF] Jess Rosas [employer] Work Phone: [facility] 05-26-2024 14:40-0400 Diastolic blood pressure 86 mm[Hg] Jess Bentonder [employer] Work Phone: [facility] 05-26-2024 14:40-0400 Heart rate 94 /min Jess Rosas [employer] Work Phone: [facility] 05-26-2024 14:40-0400 Respiratory rate 15 /min Jess Rosas [employer] Work Phone: [facility] 05-26-2024 14:40-0400 SaO2% (BldA) [Mass fraction] 99 % Jess Rosas [employer] Work Phone: [facility] 05-26-2024 14:40-0400 Systolic blood pressure 132 mm[Hg] Jess Rosas [employer] Work Phone: [phone] [place] [address] 05-26-2024 09:34-0400 Body height 185.42 cm Jess Rosas [employer] Work Phone: [phone] [place] [address] 05-26-2024 09:34-0400 Body weight 91.1 kg Jess Rosas [employer] Work Phone: [phone] [place] [address] 05-25-2024 14:30-0400 Diastolic blood pressure 77 mm[Hg] Jess Rosas [employer] Work Phone: [phone](818)967-011542 [place] [address] 05-25-2024 14:30-0400 Heart rate 62 /min Jess Rosas [employer] Work Phone: [phone] [place] [address] 05-25-2024 14:30-0400 Respiratory rate 15 /min Jess Rosas [employer] Work Phone: [phone])694-976942 [place] [address] 05-25-2024 14:30-0400 SaO2% (BldA) [Mass fraction] 98 % Jess Rosas [employer] Work Phone: [phone] [place] [address] 05-25-2024 14:30-0400 Systolic blood pressure 120 mm[Hg] Jess Rosas [employer] Work Phone: [phone])[phone] [place] [address] 05-25-2024 14:23-0400 Body temperature 98.2 [degF] Jess Rosas [employer] Work Phone: [phone] [place] [address] 05-25-2024 13:27-0400 Body mass index (BMI) [Ratio] 27.2 kg/m2 Jess Rosas [employer] Work Phone: [phone])[phone] [place] [address] 05-25-2024 13:27-0400 Body weight 93.7 kg Jess Rosas [employer] Work Phone: [phone] [place] [address] 05-25-2024 12:19-0400 Body height 185.42 cm Jess Rosas [employer] Work Phone: [phone] [place] [address] 11-04-2023 09:44-0400 Body mass index (BMI) [Ratio] 27.36 kg/m2 Ciera Palm MD Work Phone: [facility] 11-04-2023 09:44-0400 Body temperature 97.39 [degF] Ciera Palm MD Work Phone: [facility] 11-04-2023 09:44-0400 Body weight 91.5 kg Ciera Palm MD Work Phone: [facility] 11-04-2023 09:44-0400 Diastolic blood pressure 92 mm[Hg] Ciera Palm MD Work Phone: [facility] 11-04-2023 09:44-0400 Heart rate 71 /min Ciera Palm MD Work Phone: [facility] 11-04-2023 09:44-0400 Systolic blood pressure 147 mm[Hg] Ciera Palm MD Work Phone: [facility] 07-03-2022 10:44-0400 Body height 195.[address] Quang Hanson Work Phone: [facility] 07-03-2022 10:44-0400 Body mass index (BMI) [Ratio] 24.5 kg/m2 Dr. Quang Hanson Work Phone: [facility] 07-03-2022 10:44-0400 Body temperature 98 [degF] Dr. Quang Hanson Work Phone: [facility] 07-03-2022 10:44-0400 Body weight 93.[address] Quang Hasnon Work Phone: [facility] 07-03-2022 10:44-0400 Diastolic blood pressure 90 mm[Hg] Dr. Quang Hanson Work Phone: [facility] 07-03-2022 10:44-0400 Heart rate 70 /min Dr. Quang Hanson Work Phone: [facility] 07-03-2022 10:44-0400 Respiratory rate 18 /min Dr. Quang Hanson Work Phone: [facility] 07-03-2022 10:44-0400 SaO2% (BldA) [Mass fraction] 100 % Dr. Quang Hanson Work Phone: [facility] 07-03-2022 10:44-0400 Systolic blood pressure 143 mm[Hg] Dr. Quang Hanson Work Phone: [facility] 07-03-2022 10:21-0400 Body temperature 97.3 [degF] Dr. Quang Hanson Work Phone: [facility] 07-03-2022 10:21-0400 Diastolic blood pressure 84 mm[Hg] Dr. Quang Hanson Work Phone: [facility] 07-03-2022 10:21-0400 Heart rate 74 /min Dr. Quang Hanson Work Phone: [facility] 07-03-2022 10:21-0400 Respiratory rate 20 /min Dr. Quang Hanson Work Phone: [facility] 07-03-2022 10:21-0400 SaO2% (BldA) [Mass fraction] 99 % Dr. Quang Hanson Work Phone: [facility] 07-03-2022 10:21-0400 Systolic blood pressure 136 mm[Hg] Dr. Quang Hanson Work Phone: [facility] 05-14-2022 15:05-0400 Body height 195.[address] Quang Hanson Work Phone: [facility] 05-14-2022 15:05-0400 Body mass index (BMI) [Ratio] 24.4 kg/m2 Dr. Quang Hanson Work Phone: [facility] 05-14-2022 15:05-0400 Body temperature 98 [degF] Dr. Quang Hanson Work Phone: [facility] 05-14-2022 15:05-0400 Body weight 93.[address] Quang Hanson Work Phone: [facility] 05-14-2022 15:05-0400 Diastolic blood pressure 100 mm[Hg] Dr. Quang Hanson Work Phone: [facility] 05-14-2022 15:05-0400 Heart rate 85 /min Dr. Quang Hanson Work Phone: [facility] 05-14-2022 15:05-0400 Respiratory rate 16 /min Dr. Quang Hanson Work Phone: [facility] 05-14-2022 15:05-0400 SaO2% (BldA) [Mass fraction] 96 % Dr. Quang Hanson Work Phone: [facility] 05-14-2022 15:05-0400 Systolic blood pressure 148 mm[Hg] Dr. Quang Hanson Work Phone: [facility] 12-30-2021 13:31-0500 Body height 184.[address] Quang Hanson Work Phone: [facility] Work Phone: 12-30-2021 13:31-0500 Body mass index (BMI) [Ratio] 27.4 kg/m2 Dr. Quang Hanson Work Phone: [facility] Work Phone: 12-30-2021 13:31-0500 Body temperature 97.3 [degF] Dr. Quang Hanosn Work Phone: [facility] Work Phone: 12-30-2021 13:31-0500 Body weight 92.[address] Quang Hanson Work Phone: [facility] Work Phone: 12-30-2021 13:31-0500 Diastolic blood pressure 90 mm[Hg] Dr. Quang Hanson Work Phone: [facility] Work Phone: 12-30-2021 13:31-0500 Heart rate 84 /min Dr. Quang Hanson Work Phone: [facility] Work Phone: 12-30-2021 13:31-0500 Respiratory rate 17 /min Dr. Quang Hanson Work Phone: [facility] Work Phone: 12-30-2021 13:31-0500 SaO2% (BldA) [Mass fraction] 99 % Dr. Quang Hanson Work Phone: [facility] Work Phone: 12-30-2021 13:31-0500 Systolic blood pressure 158 mm[Hg] Dr. Quang Hanson Work Phone: [facility] Work Phone: 11-10-2021 15:16-0400 Body mass index (BMI) [Ratio] 27.8 kg/m2 Dr. Quang Hanson Work Phone: [facility] Work Phone: 11-10-2021 15:16-0400 Body temperature 97.1 [degF] Dr. Quang Hanson Work Phone: [facility] Work Phone: 11-10-2021 15:16-0400 Body weight 95.[address] Quang Hanson Work Phone: [facility] Work Phone: 11-10-2021 15:16-0400 Diastolic blood pressure 66 mm[Hg] Dr. Quang Hanson Work Phone: [facility] Work Phone: 11-10-2021 15:16-0400 Heart rate 81 /min Dr. Quang Hanson Work Phone: [facility] Work Phone: 11-10-2021 15:16-0400 Respiratory rate 18 /min Dr. Quang Hanson Work Phone: [facility] Work Phone: 11-10-2021 15:16-0400 SaO2% (BldA) [Mass fraction] 98 % Dr. Quang Hanson Work Phone: [facility] Work Phone: 11-10-2021 15:16-0400 Systolic blood pressure 148 mm[Hg] Dr. Quang Hanson Work Phone: [facility] Work Phone: 11-05-2021 13:00-0400 Heart rate 77 /min Anette Garcia MD Work Phone: [facility] 11-05-2021 13:00-0400 Respiratory rate 26 /min Anette Garcia MD Work Phone: [facility] 11-05-2021 13:00-0400 SaO2% (BldA) [Mass fraction] 98 % Anette Garcia MD Work Phone: [facility] 11-05-2021 12:45-0400 Diastolic blood pressure 135 mm[Hg] Anette Garcia MD Work Phone: [facility] 11-05-2021 12:45-0400 Systolic blood pressure 171 mm[Hg] Anette Garcia MD Work Phone: [facility] 10-21-2021 13:42-0400 Body mass index (BMI) [Ratio] 27.3 kg/m2 Dr. Quang Hanson Work Phone: [facility] Work Phone: 10-21-2021 13:42-0400 Body temperature 97.5 [degF] Dr. Quang Hanson Work Phone: [facility] Work Phone: 10-21-2021 13:42-0400 Body weight [address] Quang Hanson Work Phone: [facility] Work Phone: 10-21-2021 13:42-0400 Diastolic blood pressure 74 mm[Hg] Dr. Quang Hanson Work Phone: [facility] Work Phone: 10-21-2021 13:42-0400 Heart rate 82 /min Dr. Quang Hanson Work Phone: [facility] Work Phone: 10-21-2021 13:42-0400 Respiratory rate 16 /min Dr. Quang Hanson Work Phone: [facility] Work Phone: 10-21-2021 13:42-0400 SaO2% (BldA) [Mass fraction] 99 % Dr. Quang Hanson Work Phone: [facility] Work Phone: 10-21-2021 13:42-0400 Systolic blood pressure 155 mm[Hg] Dr. Quang Hanson Work Phone: [facility] Work Phone: 10-15-2021 13:01-0400 Body height 182.9 cm Felicitas Chavez MD Work Phone: [facility] 10-15-2021 13:01-0400 Body weight 94.48 kg Felicitas Chavez MD Work Phone: [facility] 10-15-2021 13:01-0400 Diastolic blood pressure 67 mm[Hg] Felicitas Chavez MD Work Phone: [facility] 10-15-2021 13:01-0400 Heart rate 71 /min Felicitas Chavez MD Work Phone: [facility] 10-15-2021 13:01-0400 SaO2% (BldA) [Mass fraction] 99 % Felicitas Chavez MD Work Phone: [facility] 10-15-2021 13:01-0400 Systolic blood pressure 135 mm[Hg] Felicitas Chavez MD Work Phone: [facility] 10-01-2021 13:32-0400 Body height 185.[address] Quang Hanson Work Phone: [facility] Work Phone: 10-01-2021 13:32-0400 Body mass index (BMI) [Ratio] 27.3 kg/m2 Dr. Quang Hanson Work Phone: [facility] Work Phone: 10-01-2021 13:32-0400 Body temperature 98.3 [degF] Dr. Quang Hanson Work Phone: [facility] Work Phone: 10-01-2021 13:32-0400 Body weight 93.[address] Quang Hanson Work Phone: [facility] Work Phone: 10-01-2021 13:32-0400 Diastolic blood pressure 78 mm[Hg] Dr. Quang Hanson Work Phone: [facility] Work Phone: 10-01-2021 13:32-0400 Heart rate 92 /min Dr. Quang Hanson Work Phone: [facility] Work Phone: 10-01-2021 13:32-0400 Respiratory rate 14 /min Dr. Quang Hanson Work Phone: [facility] Work Phone: 10-01-2021 13:32-0400 SaO2% (BldA) [Mass fraction] 98 % Dr. Quang Hanson Work Phone: [facility] Work Phone: 10-01-2021 13:32-0400 Systolic blood pressure 136 mm[Hg] Dr. Quang Hanson Work Phone: [facility] Work Phone: 09-09-2021 12:30-0400 Body height 185.[address] Quang Hanson Work Phone: [facility] Work Phone: 09-09-2021 12:30-0400 Body weight 94.[address] Quang Hanson Work Phone: [facility] Work Phone: 09-09-2021 12:30-0400 Heart rate 86 /min Dr. Quang Hanson Work Phone: [facility] Work Phone: 09-09-2021 12:30-0400 Inhaled oxygen concentration 21 % Dr. Quang Hanson Work Phone: [facility] Work Phone: 09-09-2021 12:30-0400 SaO2% (BldA) [Mass fraction] 98 % Dr. Quang Hanson Work Phone: [facility] Work Phone: 09-03-2021 14:26-0400 Body height 182.9 cm Felicitas Chavez MD Work Phone: [facility] 09-03-2021 14:26-0400 Body temperature 97.5 [degF] Felicitas Chavez MD Work Phone: [facility] 09-03-2021 14:26-0400 Body weight 94.8 kg Felicitas Chavez MD Work Phone: [facility] 09-03-2021 14:26-0400 Diastolic blood pressure 71 mm[Hg] Felicitas Chavez MD Work Phone: [facility] 09-03-2021 14:26-0400 Heart rate 81 /min Felicitas Chavez MD Work Phone: [facility] 09-03-2021 14:26-0400 SaO2% (BldA) [Mass fraction] 99 % Felicitas Chavez MD Work Phone: [facility] 09-03-2021 14:26-0400 Systolic blood pressure 141 mm[Hg] Felicitas Chavez MD Work Phone: [facility] 08-29-2021 18:29-0400 Diastolic blood pressure 86 mm[Hg] Dr. Quang Hanson Work Phone: [facility] Work Phone: 08-29-2021 18:29-0400 Heart rate 70 /min Dr. Quang Hanson Work Phone: [facility] Work Phone: 08-29-2021 18:29-0400 Respiratory rate 18 /min Dr. Quang Hanson Work Phone: [facility] Work Phone: 08-29-2021 18:29-0400 SaO2% (BldA) [Mass fraction] 96 % Dr. Quang Hanson Work Phone: [facility] Work Phone: 08-29-2021 18:29-0400 Systolic blood pressure 148 mm[Hg] Dr. Quang Hanson Work Phone: [facility] Work Phone: 08-29-2021 16:22-0400 Body mass index (BMI) [Ratio] 27.9 kg/m2 Dr. Quang Hanson Work Phone: [facility] Work Phone: 08-29-2021 16:22-0400 Body temperature 97.7 [degF] Dr. Quang Hanson Work Phone: [facility] Work Phone: 08-29-2021 16:22-0400 Body weight 93.[address] Quang Hanson Work Phone: [facility] Work Phone: 08-29-2021 08:36-0400 Body mass index (BMI) [Ratio] 28 kg/m2 Dr. Quang Hanson Work Phone: [facility] Work Phone: 08-29-2021 08:36-0400 Body temperature 98.3 [degF] Dr. Quang Hanson Work Phone: [facility] Work Phone: 08-29-2021 08:36-0400 Body weight 93.[address] Quang Hanson Work Phone: [facility] Work Phone: 08-29-2021 08:36-0400 Diastolic blood pressure 87 mm[Hg] Dr. Quang Hanson Work Phone: [facility] Work Phone: 08-29-2021 08:36-0400 Heart rate 86 /min Dr. Quang Hanson Work Phone: [facility] Work Phone: 08-29-2021 08:36-0400 Respiratory rate 17 /min Dr. Quang Hanson Work Phone: [facility] Work Phone: 08-29-2021 08:36-0400 SaO2% (BldA) [Mass fraction] 98 % Dr. Quang Hanson Work Phone: [facility] Work Phone: 08-29-2021 08:36-0400 Systolic blood pressure 136 mm[Hg] Dr. Quang Hanson Work Phone: [facility] Work Phone: Encounters Encounter Date Encounter Type Care Provider Facility Start: 07-27-2024 ambulatory Jess Nulato Facility:[facility] Start: 07-12-2024 End: 07-12-2024 ambulatory [facility] Facility:[facility] Start: 07-05-2024 End: 07-05-[address] Terrell Quiles MD -[facility] Work Phone: Start: 07-05-2024 End: 07-05-2024 ambulatory Jess Rosas [employer] Work Phone: [facility] Work Phone: Start: 07-03-2024 End: 07-03-2024 ambulatory Celia Sanders PT [facility] Comment on above: Vestibular hypofunct ion, unspecified laterality (Primary Dx) Start: 06-21-2024 End: 06-21-2024 ambulatory Claritzageeta Vargas OTR/L Work Phone: [facility] Comment on above: Cognitive impairment Start: 06-20-2024 End: 06-20-2024 Patient encounter procedure Faheem Hyde NP-C -Noel, Natalie Grajeda Start: 06-20-2024 End: 06-20-2024 [facility] Jess Rosas Facility:[facility] Start: 06-09-2024 End: 06-13-2024 Evaluation and management of inpatient BARB IVERSON Facility:[facility] Start: 06-06-2024 End: 06-06-2024 Subsequent hospital visit by physician [facility] Comment on above: Palpitations [R00.2] Start: 06-06-2024 End: 06-06-2024 Patient encounter procedure Felicitas Chavez MD Work Phone: [facility] [place] [facility] Comment on above: Coronary artery dise ase involving [place] coronary artery of [place] heart without angina pectoris (Primary Dx); SHAH (dyspnea on exertion); Vertigo; Palpitations; Dyslipidemia; Hx of CABG Start: 06-06-2024 End: 06-06-2024 ambulatory [facility] Facility:[facility] Start: 06-02-2024 ambulatory [facility] Facility:[facility] Start: 05-26-2024 Non-patient / Non-visit Dr. Hernández [facility] Work Phone: Start: 05-26-2024 ambulatory Jess Rosas Facility:[facility] Start: 05-26-2024 Non-patient / Non-visit Dr. Kiana HU [facility] Start: 05-25-2024 End: 05-26-2024 ambulatory Jess Nulato Facility:[facility] Start: 05-25-2024 End: 05-26-2024 Evaluation and management of inpatient Dr. Joi Woodson MD -[facility] Work Phone: Start: 05-25-2024 End: 05-26-2024 observation encounter Jess Rosas [employer] Work Phone: [facility] Work Phone: Start: 2024 End: 2024 ambulatory Jess Deisy [employer] Work Phone: [facility] Work Phone: Start: 2024 End: 2024 Patient encounter procedure Jess Rosas [employer] -Laboratory, Natalie Grajeda Start: 2024 End: 2024 ambulatory Jess Rosas Facility:[facility] Start: 04-09-2024 End: 04-10-2024 Refill Felicitas Chavez MD Work Phone: [facility] Comment on above: Refill Request Start: 03-22-2024 End: 03-22-2024 Refill Froylan Calhoun MD Work Phone: Cardiology Comment on above: Refill Request Start: 02-24-2024 End: 02-24-2024 Patient encounter procedure Jess Rosas [employer] -Laboratory Work Phone: Start: 02-24-2024 End: 02-24-2024 ambulatory Jess Rosas Facility:[facility] Start: 01-08-2024 End: 01-10-2024 Refill Felicitas Chavez MD Work Phone: Cardiology Comment on above: Refill Request Start: 01-07-2024 End: 01-07-2024 Telephone encounter Felicitas Chavez MD Work Phone: [facility] Comment on above: Appointment Start: 01-06-2024 End: 01-07-2024 Refill Felicitas Chavez MD Work Phone: [facility] Comment on above: Refill Request Start: 11-22-2023 End: 11-22-2023 ambulatory Ciera Palm MD Work Phone: Rheumatology Comment on above: CHANDANA positive (Primar y Dx); Chronic pain of both knees; Primary osteoarthritis of both knees Start: 11-22-2023 End: 11-22-2023 Telemedicine consultation with patient Ciera Palm MD Work Phone: Rheumatology Start: 11-09-2023 End: 11-09-2023 [facility] Start: 11-09-2023 End: 11-09-2023 Subsequent hospital visit by physician Prudence [facility] Mynor Feng Work Phone: Radiology Comment on above: Chronic pain of both knees [M25.561, M25.562, G89.29] Start: 11-04-2023 End: 11-04-2023 [facility] Start: 11-04-2023 End: 11-04-2023 ambulatory [facility] Facility:[facility] Start: 11-04-2023 End: 11-04-2023 Office consultation new/estab patient 80 min Ciera Palm MD Work Phone: Rheumatology Comment on above: Chronic bilateral lo w back pain without sciatica (Primary Dx); CHANDANA positive; Chronic pain of both knees; Primary osteoarthritis of both knees Start: 08-11-2023 ambulatory Ramirez Thomas MD Work Phone: Orthopaedics Comment on above: Blood work Start: 08-09-2023 End: 08-09-2023 ambulatory Ramirez Thomas MD Work Phone: Orthopaedics Comment on above: Doctor excuse Start: 08-09-2023 End: 08-09-2023 Patient encounter procedure Ramirez Thomas MD Work Phone: Orthopaedics Comment on above: Chronic pain of both knees (Primary Dx); Primary osteoarthritis of both knees; CHANDANA positive Start: 08-09-2023 End: 08-09-2023 Subsequent hospital visit by physician [facility] Work Phone: Radiology Comment on above: Pain in both knees, unspecified chronicity [M25.561, M25.562] Start: 07-27-2023 Orders Only Ramirez Thomas MD Work Phone: Orthopaedics Comment on above: Pain in both knees, unspecified chronicity (Primary Dx) Start: 07-18-2023 Refill Felicitas Chavez MD Work Phone: Cardiology Comment on above: Refill Request Start: 03-06-2023 End: 03-06-2023 ambulatory [facility] Work Phone: Start: 03-06-2023 End: 03-06-2023 Patient encounter procedure [facility] Work Phone: Start: 12-29-2022 Refill Felicitas Chavez MD Work Phone: Cardiology Comment on above: Refill Request Start: 11-09-2022 Telephone encounter Felicitas Hernandez i, MD Work Phone: [facility] [place] Comment on above: Appointment Refill Request Start: 09-28-2022 Refill Felicitas Chavez MD Work Phone: Cardiology Comment on above: Refill Request Start: 07-03-2022 End: 07-03-2022 Emergency department patient visit Dr. Quang Hanson Work Phone: [facility]-Emergency Department Start: 07-03-2022 End: 07-03-[address] Quang Hanson Work Phone: [facility] Start: 06-23-2022 End: 06-23-[address] Quang Hanson Work Phone: [facility] Work Phone: Start: 06-23-2022 End: 06-23-[address] Quang Hanson Work Phone: [facility] Start: 05-29-2022 Refill Felicitas Chavez MD Work Phone: Cardiology Comment on above: Refill Request Start: 05-29-2022 Telephone encounter Felicitas Hernandez i, MD Work Phone: Cardiology Comment on above: Medication Problem Start: 05-15-2022 End: 05-15-[address] Quang Hanson Work Phone: [facility] [place] Start: 05-14-2022 End: 05-14-[address] Quang Hanson Work Phone: [facility] Start: 01-10-2022 End: 01-10-[address] Quang Hanson Work Phone: [facility] Work Phone: Start: 01-10-2022 End: 01-10-[address] Quang Hanson Work Phone: [facility] Start: 12-30-2021 End: 12-30-[address] Quang Hanson Work Phone: [facility] Start: 12-06-2021 Refill Felicitas Chavez MD Work Phone: Cardiology Comment on above: Refill Request Start: 11-12-2021 Telephone encounter Felicitas Hernandez i, MD Work Phone: [facility] [place] Comment on above: Stereotype Caster - O ther Start: 11-10-2021 End: 11-10-[address] Quang Hanson Work Phone: [facility] Start: 11-05-2021 End: 11-05-2021 Subsequent hospital visit by physician Anette Garcia MD Work Phone: [employer] Comment on above: Unstable angina (HCC ) [I20.0], ACS (acute coronary syndrome) (HCC) [I24.9] Start: 11-03-2021 Telephone encounter Felicitas Hernandez i, MD Work Phone: Cardiology Comment on above: Results Start: 10-23-2021 ambulatory Felicitas Chavez MD Work Phone: Cardiology Comment on above: Heart cath Start: 10-23-2021 Telephone encounter Felicitas Hernandez i, MD Work Phone: [facility] [place] Comment on above: Patient Update; Orde rs Start: 10-21-2021 End: 10-21-[address] [facility] Start: 10-15-2021 End: 10-15-2021 Patient encounter procedure Felicitas Chavez MD Work Phone: Cardiology Comment on above: Coronary artery dise ase involving [place] coronary artery of [place] heart without angina pectoris (Primary Dx); Hx of CABG; Smoker; SHAH (dyspnea on exertion) Start: 10-06-2021 End: 10-06-[address] Quang Hanson Work Phone: [facility] Start: 10-01-2021 End: 10-01-[address] Quang Hanson Work Phone: [facility] Internal Medicine Start: 09-22-2021 Non-patient / Non-visit Dr. Vincenzo Hanson Work Phone: [facility] Start: 09-22-2021 End: 09-22-[address] Quang Hanson Work Phone: [facility] Start: 09-09-2021 Telephone encounter Felicitas Hernandez i, MD Work Phone: Cardiology Comment on above: Patient Question; Pa tient Update Results Start: 09-09-2021 End: 09-09-[address] Quang Hanson Work Phone: [facility]-Pulmonary Services/Neurology Start: 09-09-2021 Non-patient / Non-visit Dr. Vincenzo Hanson Work Phone: [facility] Start: 09-08-2021 End: 09-08-2021 Subsequent hospital visit by physician [facility] Work Phone: Cardiology Lab Comment on above: Precordial pain [R07 .2] Start: 09-05-2021 Telephone encounter Vani pacheco RN Cardiology Lab Comment on above: Reminder Call Start: 09-03-2021 End: 09-03-2021 Patient encounter procedure Felicitas Chavez MD Work Phone: Cardiology Comment on above: Coronary artery dise ase involving [place] coronary artery of [place] heart without angina pectoris (Primary Dx); Precordial pain; Hx of CABG; SHAH (dyspnea on exertion); Primary hypertension Start: 08-29-2021 End: 08-29-2021 Emergency department patient visit Dr. Quang Hanson Work Phone: [facility]Emergency Department Start: 08-29-2021 Telephone encounter Felicitas Hernandez i, MD Work Phone: Cardiology Comment on above: Patient Question; Pa tient Update Start: 08-29-2021 End: 08-29-[address] Quang Hanson Work Phone: [facility]Pulmonary Medicine [facility] Start: 05-20-2021 Refill Felicitas Chavez MD Work Phone: Cardiology Comment on above: Refill Request Start: 11-22-2020 End: 11-22-2020 Subsequent hospital visit by physician [facility] Work Phone: Radiology Comment on above: S/P CABG x 4 [Z95.1] Procedures Date Procedure Procedure Detail Performing Clinician Start: 06-20-2024 Measurement of Borre minda burgdorferi antibody Jess Deisy LAUREANO-C Work Phone: Comment on above: Lyme antibodies not detected. Reflex testing is notindicated.No laboratory evidence of infection with B. burgdorferi(Lyme disease). Negative results may occur in patientsrecently infected (less than or equal to 14 days) with B.burgdorferi. If recent infection is suspected, repeattesting on a new sample collected in 7 to 14 days isrecommended.Performed at: [facility] [id number] Director: Loy Lopez PhD, Phone: [phone] Start: 06-06-2024 Ecg routine ecg w/le ast 12 lds w/i&r Felicitas Chavez MD Work Phone: Start: 05-26-2024 Estimated creatinine clearance Jess Deisy LOWERY Work Phone: Start: 05-25-2024 MRI of brain without contrast Jess Deisy LOWERY Work Phone: Start: 05-25-2024 CT angiography of he ad and neck Jess Deisy LOWERY Work Phone: Start: 02-05-2023 History of coronary artery bypass grafting Hx of CABG Felicitas Chavez MD Work Phone: Start: 07-03-2022 Plain chest X-ray Dr. Parris Hanson Work Phone: Start: 06-23-2022 End: 06-23-2022 Radiologic examination of knee Dr. Quang Hanson Work Phone: Start: 01-10-2022 Radiologic examinati on of lumbosacral spine, complete, with bending views Dr. Quang Hanson Work Phone: Start: 11-05-2021 End: 11-05-2021 O2 SATURATION (POC) Anette Garcia MD Work Phone: Start: 10-06-2021 Computed tomography of abdomen and pelvis with contrast Dr. Quang Hanson Work Phone: Start: 09-22-[address] Barney Hanson Work Phone: Start: 09-08-2021 Myocardial spect mul tiple studies Felicitas Chavez MD Work Phone: Start: 08-29-2021 Plain chest X-ray Dr. Parris Hanson Work Phone: Start: 11-22-2020 Radiologic exam ches t 2 views Kaycee Long [employer]AREDR[employer]ER Start: 10-28-2020 History of coronary artery bypass grafting S/P CABG x 4 Felicitas Chavez MD Work Phone: Start: 10-23-2020 Lipid 1996 panel - S anushka or Plasma Felicitas Chavez MD Work Phone: History of coronary artery bypass grafting Hx of CABG Felicitas Chavez MD Work Phone: History of coronary artery bypass grafting Hx of CABG Mfi 2 Work Phone: History of coronary artery bypass grafting Hx of CABG Felicitas Chavez MD Work Phone: History of coronary artery bypass grafting Hx of CABG Felicitas Chavez MD Work Phone: History of coronary artery bypass grafting Hx of CABG History of coronary artery bypass grafting S/P CABG x 4 Xr Mynor Work Phone: History of coronary artery bypass grafting Hx of CABG Felicitas Chavez MD Work Phone: Plan of Treatment Date Care Activity Detail Author Start: 06-10-2027 Diabetes Screening Diabetes Screening [facility] Start: 11-03-2026 Diabetes Screening Diabetes Screening [facility] Start: 10-23-2025 Lipid 1996 panel - Serum or Plasma Lipid Screening [facility] Start: 10-23-2025 Lipid panel Lipid Screening [facility] Start: 10-23-2025 LIPID SCREEN LIPID SCREEN [facility] Start: 06-06-2025 BP Controlled (<130/80) BP Controlled (<130/80) [facility] Start: 11-01-2024 DIABETES SCREEN DIABETES SCREEN [facility] Start: 11-01-2024 Diabetes Screening Diabetes Screening [facility] Start: 10-23-2024 Influenza vaccination Influenza Vaccine (Season Ended) [facility] Start: 07-12-2024 End: 07-12-2024 ambulatory 07/12/2024 9:45 AM EDT OT/PT/Speech Visit [facility] [address] [place] [address] Celia Sanders, PT 1 week [facility] Physical Therapy Comment on above: 1 week Start: 07-11-2024 End: 07-11-2024 Patient encounter procedure 07/11/2024 1:30 PM EDT OT/PT/Speech Visit [facility] Speech Therapy [address] [place] [address] Rocio Schuster, DANI[employer] Consult [facility] Speech Therapy Comment on above: Consult Start: 07-03-2024 End: 07-03-2024 ambulatory 07/03/2024 8:00 AM EDT OT/PT/Speech Visit [facility] Physical Therapy [address] [place] [address] Celia Sanders, PT Walking [facility] Physical Therapy Comment on above: Walking Start: 06-06-2024 End: 06-06-2024 Patient encounter procedure 06/06/2024 3:00 PM EDT Office Visit [facility] [address] [place] [address] Felicitas Chavez MD [address] [place], [place] [id number] overdue annual CAD srs [facility] Comment on above: overdue annual CAD srs Start: 05-26-2024 Patient discharge [facility] Start: 05-26-2024 [facility] Start: 05-25-2024 Aspiration precautions [facility] Start: 05-25-2024 Assessment of risk of venous thromboembolism [facility] Start: 05-25-2024 Cardiac monitoring [facility] Start: 05-25-2024 Catheterization of vein [facility] Start: 05-25-2024 Consultation [facility] Start: 05-25-2024 Elevation of head of bed [facility] Start: 05-25-2024 Exercises [facility] Start: 05-25-2024 Insertion of catheter into peripheral vein [facility] Start: 05-25-2024 Measuring intake and output [facility] Start: 05-25-2024 Notification of physician [facility] Start: 05-25-2024 Oxygen therapy [facility] Start: 05-25-2024 Patient referral to dietitian [facility] Start: 05-25-2024 Providing care according to standard [facility] Start: 05-25-2024 Provision of activity privileges [facility] Start: 05-25-2024 Referral to occupational therapist [facility] Start: 05-25-2024 Referral to service [facility] Start: 05-25-2024 Speech therapy assessment [facility] Start: 05-25-2024 Telemedicine consultation with patient [facility] Start: 05-25-2024 Tobacco use cessation education [facility] Start: 05-25-2024 Vital signs measurements [facility] Start: 05-25-2024 Following clinical pathway protocol [facility] Start: 05-25-2024 End: 05-25-2024 [facility] Start: 05-25-2024 Admission procedure [facility] Start: 05-25-2024 Hospital admission, emergency, from emergency room, medical nature [facility] Start: 05-25-2024 Oxygen therapy [facility] Start: 05-25-2024 End: 05-25-2024 [facility] Start: 05-25-2024 End: 05-25-2024 Patient encounter procedure 05/25/2024 12:20 PM EDT Office Visit [facility] [address] [place] [address] Rafael Durán MD [address] [place], [place] [id number] establish care [facility] Comment on above: establish care Start: 11-22-2023 End: 11-22-2023 ambulatory 11/22/2023 3:40 PM EDT [facility] [address] [address] Ciera Palm MD [address] [place] [address] Positive CHANDANA/Osteoarthritis Rheumatology Comment on above: Positive CHANDANA/Osteoarthritis Start: 11-22-2023 End: 02-21-2024 Urinalysis complete panel - Urine URINALYSIS, WITH MICROSCOPIC Lab Routine CHANDANA positive Expected: 11/22/2023, Expires: 02/21/2024 [facility] Work Phone: Comment on above: Expected: 11/22/2023, Expires: Start: 11-09-2023 End: 11-09-2023 Patient encounter procedure Radiology Comment on above: Chronic pain of both knees [M25.561, M25 .562, G89.29] Start: 11-04-2023 End: 02-03-2024 C reactive protein [Mass/volume] in Serum or Plasma [facility] Comment on above: Expected: 11/04/2023, Expires: 4 Start: 11-04-2023 End: 02-03-2024 Cobalamin (Vitamin B12) [Mass/volume] in Serum or Plasma [facility] Comment on above: Expected: 11/04/2023, Expires: Start: 11-04-2023 End: 02-03-2024 Comprehensive metabolic 2000 panel - Serum or Plasma [facility] Comment on above: Expected: 11/04/2023, Expires: Start: 11-04-2023 End: 02-03-2024 Extractable nuclear Ab panel - Serum [facility] Comment on above: Expected: 11/04/2023, Expires: 4 Start: 11-04-2023 End: 02-03-2024 Hemoglobin A1c in Blood [facility] Work Phone: Comment on above: Expected: 11/04/2023, Expires: 4 Start: 11-04-2023 End: 02-03-2024 Thyrotropin [Units/volume] in Serum or Plasma THYROID STIMULATING HORMONE Lab Routine CHANDANA positive Expected: 11/04/2023, Expires: 02/03/2024 [facility] Comment on above: Expected: 11/04/2023, Expires: Start: 10-29-2023 DIABETES SCREEN DIABETES SCREEN [facility] Start: 10-24-2023 Covid-19 Vaccine () Covid-19 Vaccine () [facility] Start: 10-24-2023 Covid-19 Vaccine () Covid-19 Vaccine () [facility] Start: 10-24-2023 Influenza vaccination [facility] Start: 08-09-2023 End: 08-09-2023 Patient encounter procedure 08/09/2023 8:15 AM EDT Office Visit Orthopaedics [address] [place], [place] [id number] Ramirez Thomas MD [address] [place], [place] [id number] bilateral knee pain Orthopaedics Comment on above: bilateral knee pain Start: 10-23-2022 Covid-19 Vaccine () Covid-19 Vaccine () [facility] Start: 10-23-2022 Influenza vaccination [facility] Start: 07-03-2022 Blood chemistry [facility] Start: 07-03-2022 End: 07-03-2022 [facility] Start: 05-15-2022 PROSTATE CANCER SCREENING DISCUSSION PROSTATE CANCER SCREENING DISCUSSION [facility] Start: 05-15-2022 Prostate specific antigen measurement Prostate Cancer Screening Discussion [facility] Start: 11-10-2021 Patient referral [facility] Work Phone: Start: 10-23-2021 Hepatitis B surface antibody level LDL CHOLESTEROL [facility] Start: 10-23-2021 Influenza vaccination INFLUENZA (#1) [facility] Start: 10-21-2021 Patient referral [facility] Work Phone: Start: 08-29-2021 [facility] Work Phone: Start: 08-29-2021 Patient referral [facility] Work Phone: Start: 10-23-2020 Influenza vaccination INFLUENZA (#1) [facility] Start: 05-15-2017 SHINGRIX VACCINE (1 of 2) SHINGRIX VACCINE (1 of 2) [facility] Start: 04-02-2016 Urine microalbumin profile DTaP,Tdap,Td Vaccine (1 - Tdap) [facility] Start: 05-15-2012 COLOGUARD (FIT-DNA) COLOGUARD (FIT-DNA) [facility] Start: 05-15-2012 Colonoscopy COLONOSCOPY [facility] Start: 05-15-2012 COLORECTAL CANCER SCREENING COLORECTAL CANCER SCREENING [facility] Start: 05-15-[address] COLONOGRAPHY [facility] Start: 05-15-2012 FECAL OCCULT BLOOD FECAL OCCULT BLOOD [facility] Start: 05-15-2012 Prostate specific antigen measurement Prostate Cancer Screening Discussion [facility] Start: 05-15-2012 Screening for malignant neoplasm of colon [facility] Start: 05-15-2012 SIGMOIDOSCOPY SIGMOIDOSCOPY [facility] Start: 05-15-1986 Hepatitis B Vaccine (1 of 3 - 19+ 3-dose series) Hepatitis B Vaccine (1 of 3 - 19+ 3-dose series) [facility] Start: 05-15-1986 Pneumococcal Vaccine: 50+ (1 of 2 - PCV) Pneumococcal Vaccine: 50+ (1 of 2 - PCV) [facility] Start: 05-15-1986 Urine microalbumin profile [facility] Start: 05-15-1985 ANNUAL PCP TEAM CHRONIC DISEASE VISIT ANNUAL PCP TEAM CHRONIC DISEASE VISIT [facility] Start: 05-15-1985 BP CONTROLLED (<130/80) BP CONTROLLED (<130/80) [facility] Start: 05-15-1985 HEPATITIS C SCREENING HEPATITIS C SCREENING [facility] Start: 05-15-1985 Hepatitis C screening Hepatitis C Screening [facility] Start: 05-15-1985 HIV SCREENING HIV SCREENING [facility] Start: 05-15-1985 HIV screening HIV Screening [facility] Start: 05-15-1973 PNEUMOCOCCAL (1 - PCV) PNEUMOCOCCAL (1 - PCV) [facility] Start: 05-15-1973 Pneumococcal vaccination [facility] Start: 05-15-1972 COVID-19 VACCINE (1) COVID-19 VACCINE (1) [facility] Start: 1965 COVID-19 VACCINE (#1) COVID-19 VACCINE (#1) [facility] Start: 1965 HEPATITIS B (1 of 3 - 3-dose series) HEPATITIS B (1 of 3 - 3-dose series) [facility] Start: 1965 Hepatitis B Vaccine (1 of 3 - 3-dose series) Hepatitis B Vaccine (1 of 3 - 3-dose series) [facility] Blood chemistry [facility] Work Phone: CT Abdomen and Pelvi s W contrast IV [facility] Work Phone: CT Chest [facility] Work Phone: End: 09-03-2022 ECG COMPLETE ECG COMPLETE ECG Routine Precordial pain 1 Occurrences starting 09/03/2021 until 09/03/2022 [facility] Work Phone: Comment on above: 1 Occurrences starting 09/03/2021 until 09/03/2022 End: 06-06-2025 HOLTER MONITOR 48 HOUR HOLTER MONITOR 48 HOUR ECG Routine Palpitations 1 Occurrences starting 06/06/2024 until 06/06/2025 [facility] Work Phone: Comment on above: 1 Occurrences starting 06/06/2024 until 06/06/2025 End: 06-06-2024 HOLTER MONITOR 48 HOUR HOLTER MONITOR 48 HOUR ECG Routine Palpitations 1 Occurrences starting 06/06/2024 until 06/06/2024 [facility] Work Phone: Comment on above: 1 Occurrences starting 06/06/2024 until 06/06/2024 Inhalation challenge test report Document --W methacholine inhaled [facility] Work Phone: Measurement of respiratory function [facility] Work Phone: End: 10-03-2022 NM CARDIAC PERF STRESS/PHARM NM CARDIAC PERF STRESS/PHARM Radiology Routine Precordial pain Coronary artery disease involving [place] coronary artery of [place] heart without angina pectoris Hx of CABG SHAH (dyspnea on exertion) 1 Occurrences starting 09/03/2021 until 10/03/2022 [facility] Work Phone: Comment on above: 1 Occurrences starting 09/03/2021 until 10/03/2022 End: 07-06-2025 NM Heart Perfusion W stress and W radionuclide IV NM CARDIAC PERF STRESS/PHARM Radiology Routine Coronary artery disease involving [place] coronary artery of [place] heart without angina pectoris SHAH (dyspnea on exertion) Hx of CABG 1 Occurrences starting 06/06/2024 until 07/06/2025 [facility] Comment on above: 1 Occurrences starting 06/06/2024 until 07/06/2025 Patient Education [facility] Work Phone: Patient referral [facility] Work Phone: Polysomnography [facility] Prostate specific antigen measurement [facility] Work Phone: End: 11-05-2021 RIGHT AND LEFT HEART CATHETERIZATION RIGHT AND LEFT HEART CATHETERIZATION BIC Routine One Time for 1 Occurrences starting 11/05/2021 until 11/05/2021 [facility] Work Phone: Comment on above: One Time for 1 Occurrences starting 10/23 until 11/05/2021 Serum testosterone measurement [facility] Testosterone Free [Mass/volume] in Serum or Plasma [facility] Testosterone measurement [facility] Troponin T.cardiac [Mass/volume] in Serum or Plasma by High sensitivity method [facility] Troponin T.cardiac [Mass/volume] in Serum or Plasma by High sensitivity method [facility] End: 12-03-2024 XR Cervical spine AP and Lateral and oblique XR CERV OTHER 4V AP/LAT/OBL Radiology Routine Chronic pain of both knees CHANADNA positive 1 Occurrences starting 11/04/2023 until 12/03/2024 [facility] Comment on above: 1 Occurrences starting 11/04/2023 until 12/03/2024 XR Cervical spine AP and Lateral and oblique XR CERV OTHER 4V AP/LAT/OBL Radiology Routine Chronic pain of both knees CHANDANA positive 11/09/2023 4:28 PM EDT [facility] End: 12-03-2024 XR Foot - bilateral AP and Lateral and oblique XR FOOT GENERAL 3V AP/LAT/OBL BILATERAL Radiology Routine Chronic pain of both knees CHANDANA positive 1 Occurrences starting 11/04/2023 until 12/03/2024 [facility] Comment on above: 1 Occurrences starting 11/04/2023 until 12/03/2024 XR Foot - bilateral AP and Lateral and oblique XR FOOT GENERAL 3V AP/LAT/OBL BILATERAL Radiology Routine Chronic pain of both knees CHANDANA positive 11/09/2023 4:28 PM EDT [facility] End: 12-03-2024 XR Hand - bilateral PA and Lateral and Oblique XR HAND GENERAL 3V PA/LAT/OBL BILATERAL Radiology Routine Chronic pain of both knees CHANDANA positive Chronic bilateral low back pain without sciatica 1 Occurrences starting 11/04/2023 until 12/03/2024 [facility] Comment on above: 1 Occurrences starting 11/04/2023 until 12/03/2024 XR Hand - bilateral PA and Lateral and Oblique XR HAND GENERAL 3V PA/LAT/OBL BILATERAL Radiology Routine Chronic pain of both knees CHANDANA positive Chronic bilateral low back pain without sciatica 11/09/2023 4:28 PM EDT [facility] End: 08-25-2024 XR Knee - bilateral 4 Views XR KNEE GENERAL 4V AP BOTH/PA BOTH/LAT/MERC BILATERAL Radiology Routine Pain in both knees, unspecified chronicity 1 Occurrences starting 07/27/2023 until 08/25/2024 [facility] Work Phone: Comment on above: 1 Occurrences starting 07/27/2023 until 08/25/2024 XR Knee - bilateral 4 Views XR KNEE GENERAL 4V AP BOTH/PA BOTH/LAT/MERC BILATERAL Radiology Routine Pain in both knees, unspecified chronicity 08/09/2023 8:46 AM EDT [facility] Work Phone: End: 12-03-2024 XR Lumbar spine 3 Views XR LUMBAR GENERAL 3V AP/LAT/L5-S1 Radiology Routine Chronic pain of both knees CHANDANA positive 1 Occurrences starting 11/04/2023 until 12/03/2024 [facility] Comment on above: 1 Occurrences starting 11/04/2023 until 12/03/2024 XR Lumbar spine 3 Views XR LUMBAR GENERAL 3V AP/LAT/L5-S1 Radiology Routine Chronic pain of both knees CHANDANA positive 11/09/2023 4:28 PM EDT [facility] Work Phone: End: 12-03-2024 XR Sacroiliac Joint Views XR SACROILIAC JOINTS 2V AP PELVIS/FERGUESON Radiology Routine Chronic pain of both knees CHANDANA positive 1 Occurrences starting 11/04/2023 until 12/03/2024 [facility] Comment on above: 1 Occurrences starting 11/04/2023 until 12/03/2024 XR Sacroiliac Joint Views XR SACROILIAC JOINTS 2V AP PELVIS/FERGUESON Radiology Routine Chronic pain of both knees CHANDANA positive 11/09/2023 4:28 PM EDT [facility] End: 12-03-2024 XR Thoracic spine AP and Lateral XR THORACIC LIMITED 2V AP/LAT Radiology Routine Chronic bilateral low back pain without sciatica 1 Occurrences starting 11/04/2023 until 12/03/2024 [facility] Comment on above: 1 Occurrences starting 11/04/2023 until 12/03/2024 XR Thoracic spine AP and Lateral XR THORACIC LIMITED 2V AP/LAT Radiology Routine Chronic bilateral low back pain without sciatica 11/09/2023 4:28 PM EDT [facility] Immunizations Immunization Date Immunization Notes Care Provider Kim jefferson 04-01-2016 tetanus and diphther ia toxoids, adsorbed, preservative free, for adult use (2 Lf of tetanus toxoid and 2 Lf of diphtheria toxoid) Dr. Quang Hanson Work Phone: [facility] Payers Date Payer Category Payer Self-pay [id number] 2024 [employer] BLUE CARD PPO OOS [id number] 2024 Unknown [id number] 2021 Private Health Insurance [id number] 2021 Private Health Insurance [id number] 2018 Unknown KASSI DENIS PPO [id number] 2018-Present [phone] [facility] [id number] [place] [address] PPO [id number] 2018 Unknown [id number] 2016 Unknown [id number] Unknown [facility] PACKAGE PLAN . [id number] Unknown [id number] Unknown [id number] Unknown [id number] Unknown [id number] Unknown [id number] Unknown [id number] Unknown [id number] Unknown [id number] Unknown [id number] Unknown [id number] Social History Date Type Detail Facility Start: 04-24-2015 End: 05-26-2024 Tobacco smoking status NHIS Smokes tobacco daily [facility] Work Phone: History of tobacco use Cigarette Smoker C [facility] Work Phone: Start: 04-24-2015 End: 02-23-2023 Cigarettes smoked current (pack per day) - Reported 0.5 [facility] Start: 04-24-2015 End: 06-06-2024 Tobacco use and exposure Smokeless tobacco non-user [facility] Work Phone: Start: 11-05-2020 End: 04-23-2021 Alcohol intake Not Asked [facility] Start: 1965 Sex Assigned At Not on file C [facility] Start: 10-06-2020 End: 11-05-2021 Exposure to SARS-CoV-2 (event) Not sure [facility] Start: 08-29-2021 End: 08-25-2022 Tobacco smoking status NHIS Unknown if ever smoked [facility] Start: 01-03-2020 Heavy [place] [facility] Start: 09-12-2020 Cigarettes;Vapor [facility] Start: 1965 Sex Assigned At Male [facility] Start: 10-16-2021 End: 02-23-2023 Tobacco use panel [facility] National Score (1-10 0), lower number is lower risk 57 [facility] Start: 02-23-2023 End: 06-06-2024 Alcohol intake Ex-drinker (finding) [facility] Start: 02-23-2023 Alcohol Comment occ [facility] Start: 11-05-2020 Tobacco Comment smokes a coup le a day [facility] Start: 05-22-2024 End: 05-26-2024 Sex Male (finding) [facility] Goals Date Patient Goal Desired Activity /State Personal health goal Functional Status Date Assessment Result Facility 06-13-2024 Are you deaf, or do you have serious difficulty hearing No 06/13/2024 11:38 AM Artem Browne RN No [facility] 06-13-2024 Are you blind, or do you have serious difficulty seeing, even when wearing glasses No 06/13/2024 11:38 AM Artem Browne, MADHAV No [facility] 06-13-2024 Do you have serious difficulty walking or climbing stairs Yes 06/13/2024 11:38 AM Artem Browne, MADHAV Yes [facility] 06-13-2024 Do you have difficul ty dressing or bathing No 06/13/2024 11:38 AM Artem Browne RN No [facility] 06-13-2024 Because of a physica l, mental, or emotional condition, do you have difficulty doing errands alone such as visiting a physician's office or shopping No 06/13/2024 11:38 AM Artem Browne RN No [facility] 05-26-2024 Functional status [facility] Work Phone: 10-29-2020 Are you deaf, or do you have serious difficulty hearing No 10/29/2020 12:45 PM Cammy Alcocer RN No [facility] 10-29-2020 Are you blind, or do you have serious difficulty seeing, even when wearing glasses No 10/29/2020 12:45 PM Cammy Alcocer RN No [facility] 10-29-2020 Do you have serious difficulty walking or climbing stairs No 10/29/2020 12:45 PM Cammy Alcocer RN No [facility] 10-29-2020 Do you have difficul ty dressing or bathing No 10/29/2020 12:45 PM Cammy Alcocer RN No [facility] 10-29-2020 Because of a physica l, mental, or emotional condition, do you have difficulty doing errands alone such as visiting a physician's office or shopping No 10/29/2020 12:45 PM Cammy Alcocer RN No [facility] Mental Status Date Assessment Result Facility 06-13-2024 Because of a physica l, mental, or emotional condition, do you have serious difficulty concentrating, remembering, or making decisions No 06/13/2024 11:38 AM Artem Browne RN No [facility] 05-26-2024 Cognitive function Voice/Name [facility] Work Phone: 05-25-2024 Cognitive function Awake;Alert;A ppropriate;Fol lows Commands [facility] Work Phone: 07-03-2022 Cognitive function Level Of Cons ciousness Awake;Alert;Appropriate [facility] Work Phone: 08-29-2021 Cognitive function Voice/Name [facility] Work Phone: 10-29-2020 Because of a physica l, mental, or emotional condition, do you have serious difficulty concentrating, remembering, or making decisions No 10/29/2020 12:45 PM EDT Cammy Apodaca, MADHAV [facility] Clinical Notes 11-22-2020 to 07-12-2024 Celia Sanders, PT - 07/03/2024 7:58 AM EDTPClaritza ruiz OTR/[place] - 06/21/2024 4:18 PM EDTPatient Education - Heather Dubois RN - 06/06/2024 3:40 PM EDTPFelicitas muhammad MD - 06/06/2024 3:12 PM EDT Note Date & Type Note Facility 07-12-2024 Note HNO ID: [id number] Author: CELIA SANDERS, PT Service: ? Author Type: Physical Therapist Type: Progress Notes Filed: 07/12/2024 10:15 Note Text: Episode Visit Count: 2 Therapist That Will Accept/Oversee The Plan Of Care: Celia Sanders Start of Care Date: 07/03/24 Onset Date: 06/09/24 (vestibular symptoms for 20 years) Plan of Care Certification Date: 07/03/24 Next Certification Due Date: 08/14/24 [facility] PHYSICAL THERAPY DISCONTINUANCE OF CARE PLAN OF CARE UPDATE: Assessment: Hayden Pendleton is discontinued from Physical Therapy services due to maximal benefit.. Patient was seen for 2 visits from Start of Care Date: 07/03/24 to 07/12/2024 and treatment included: Neuromuscular re-education, Manual therapy, and Self-senior care management. Goals for Episode of Care: established 07/03/24 Goals updated on 07/12/2024. Patient will demonstrate normal active cervical spine range of motion to restore posture and complete ADLS with trace report of dizziness/imbalance. -- NOT MET Patient will be independent with home exercise program and progression. -- NOT MET Patient will return to prior level of function with all activities of daily living with trace reports of dizziness. -- NOT MET Patient will be able to walk household and community distances with safe, functional gait pattern with trace report of dizziness/imbalance. -- NOT MET Patient Goals: reduce vertigo -- NOT MET SUBJECTIVE: Pt. had B12 injection July 05 and felt good following this for 3 days over weekend. Symptoms began to return again upon waking Wednesday. Getting worse since Wednesday, described as woozy, off balance Pt. was safe driving over the weekend but did not feel safe [place] and today. Presents with today who drove him. He is not able to get his blood work done today due to drinking coffee. Pt. couldn't drive to get his blood work done or to his speech therapy visit. my head feels that it has slipped out of position with my body and I can't find where to line it back up.. Patient Goals: reduce vertigo Functional Limitations: bed mobility Vestibular Description: woozy (off balance, don't feel right) Frequency: Intermittent Duration: days Symptoms worsened by: (nothing specific) Motion Sickness: None Pain: Pain Pain Level: 0 Post Treatment Pain Post Treatment Pain Level: 7 Post Treatment Symptoms: dizziness - increased, must sit the remainder of the visit. Demonstrates need for to help him with remembering education provided today. PROMIS Scales 07/06/2024 06/20/2024 11/03/2023 Higher is Better Phys Func - T Score 39 (moderate dysfunction) Phys Func - Percentile 14 Self-Eff Symptom - T Score 23 (Very Low) Self-Eff Symptom - Percentile 0 Cognitve Function - T Score 26 (severe dysfunction) Cognitive Function - Percentile 1 Communication - Score 65 11/03/2023 Lower is Better Pain Interference - T Score 81 (severe) Pain Interference - Percentile 0 T-scores: mean of general population = 50. 5 points is clinically meaningfully difference Percentiles provide an indication of how the patient's score ranks in relation to the general population. Higher percentile rankings indicate better function/quality of life. 50th percentile is the average of the general population and indicates half of respondents had a worse score. OBJECTIVE MEASURES WITH LEVEL OF FUNCTION: Special Tests - Cervical Cervical Special Tests: Flexion-Rotation Test Flexion-Rotation Test: Right Negative, Left Negative Functional Gait Assessment Gait level surface : 2 - Mild impairment- walks 20' uses assist device, slower speed, mild gait deviation Change in gait speed: 2 - Mild impairment- is able to change speed but demonstrates mild gait deviations or no gait deviations but unable to achieve a significant change in velocity, or uses an assistive device Gait and horizontal head turns: 2 - Mild impairment- performs R/L head turns smoothly with slight change in gait velocity, minor disruption to smooth gait path or uses assistive device Gait and vertical head turns: 2 - Mild impairment- performs up/ down head turns smoothly with slight change in gait velocity, minor disruption to smooth gait path or uses assistive device Gait and pivot: 3 - Normal- pivot turn safely within 3 sec, stops quickly, no loss of balance Step over obstacle: 3 - Normal- is able to steop over box without changing speed, no evidence of imbalance Gait with narrow base of support : 3 - Normal- is able to ambulate 10 steps heel to toe with no staggering Gait with eyes closed : 2 - Mild impairment- walks 20' uses assist device, slower speed, mild gait deviation, deviates 6-10 outside of 12 walkway Ambulates backward : 2 - Mild impairment- walks 20', uses assist device, slower speed, mild gait deviations, deviates 6-10 outside 12 walkway Steps: 2 - Mild impairment- alternating feet, must use r (more content not included)... [facility] 07-03-2024 Note HNO ID: [id number] Author: CELIA SANDERS, PT Service: ? Author Type: Physical Therapist Type: Progress Notes Filed: 07/03/2024 13:52 Note Text: Episode Visit Count: 1 Therapist That Will Accept/Oversee The Plan Of Care: Celia Sanders Start of Care Date: 07/03/24 Onset Date: 06/09/24 (vestibular symptoms for 20 years) Plan of Care Certification Date: 07/03/24 Next Certification Due Date: 08/14/24 Patient Identified by Name and Date of : Yes REHABILITATION AND SPORTS THERAPY PHYSICAL THERAPY EVALUATION PLAN OF CARE: Assessment: Hayden Pendleton presents with diagnosis of vestibular hypofunction that interferes with bed mobility . The patient presents with impairments in ADL's, balance, independence in exercise, overall function, patient reported outcome measures, posture, and symptom management. PROMIS? (Patient-Reported Outcomes Measurement Information System) scores were reviewed and identified as a rehabilitation concern. Prognosis for therapy is Fair due to: clinical presentation, chronic nature of impairments . The patient will benefit from skilled therapy services to meet the goals established for this plan of care as noted below. Goals for Episode of Care: established 07/03/24 Patient will demonstrate normal active cervical spine range of motion to restore posture and complete ADLS with trace report of dizziness/imbalance. Patient will be independent with home exercise program and progression. Patient will return to prior level of function with all activities of daily living with trace reports of dizziness. Patient will be able to walk household and community distances with safe, functional gait pattern with trace report of dizziness/imbalance. Patient Goals: reduce vertigo Time Frame for Goals and Treatment : 08/14/24 Planned Interventions, Frequency, and Duration: Current Frequency: 1x/week Duration: 6 weeks Total Number of Visits Planned: 6 Planned Treatment Interventions: Gait Training (01790), Self-senior care management (09048), Therapeutic activities (48900), Manual therapy (11039), Neuromuscular re-education (20398), Therapeutic exercise (92742) PLAN FOR NEXT VISIT: FGA and assess the cervical spine, include flexion rotation test. Consider standing VORx1 Determine if dizziness is provoked by the cervical spine and if pt. is at risk for falling, discharge if testing negative. Patient demonstrates fair understanding of plan of care and treatment. The above goals and plan of care were discussed and agreed upon by patient/family. SUBJECTIVE: for acute on chronic dizziness described as lightheadedness and room spinning. Pt. reports he was seen by this PCP Jess Rosas, who instructed pt. to go to the ED 06/09/24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 PHYSICAL EXAM: BP 113/69 Pulse 68 Temp (Src) 97.5 (Oral) Resp 22 Ht 6' 1 (1.85m) Wt 203 lb (92.1kg) SpO2 98% BMI 26.79 kg/(m2). O2 Therapy: Room Air Physical Exam Performed GENERAL: Alert, no distress, cooperative SKIN: Skin color, texture, turgor normal. No rashes or lesions. EYES: PERRLA OROPHARYNX: Lips, mucosa, and tongue normal. Teeth and gums normal. Oropharynx normal. LUNGS: Lungs clear to auscultation, Good diaphragmatic excursion CARDIAC: Normal S1 and S2; no rubs, murmurs, or gallops ABDOMEN: Abdomen soft, non-tender, BS normal, No masses or organomegaly EXTREMITIES: Extremities normal, no deformities, edema, clubbing or skin discoloration. Good capillary refill., No ulcers NEURO: 5/5 upper and lower extremity strength, no ataxia on finger to nose testing, patient has a wide base gait with ataxia Lines, Drains, and Airways Line Duration Peripheral 06/09/24 0917 Left Forearm 20 Gauge 3 days Reviewed lines and needs to be continued: REASONS: Intravenous fluids DATA: Diagnostic tests reviewed for today's visit: Most recent labs and imaging results. Assessment/Plan Principal Problem: #Dizziness #Ataxia #Weakness #Confusion -neurology following with plan for MRI apryl w/ and w/o contrast, LP on Wednesday, paraneoplastic panel sent. B12 wnl, thiamine level pending, TSH and T4 levels wnl. Discussed with neurology and patient having progressive feeling of weakness throughout the day and feels like he can no longer sit up- labs for possible myasthenia gravis sent. NIF and VC checked and are wnl. MRI brain came back only significant for chronic microvascular ischemic changes. PT/OT consulted. Per PT exhibits vestibular hypofunction #CAD -continue asa, imdur, zetia, crestor, lopressor #tobacco abuse -nicotine patch Resolved Problems: * No resolved hospital problems. * Medication and Non-Pharmacologic VTE Prophylaxis/Anticoagulants Anticoagulant AND Antiplatelet Medications (From admission, onward) Start Dose Route Frequency Last Action Ordered Stop 06/10/24 0900 aspirin 81 mg chewable tab(s) 81 mg ORAL DAILY Given, 06/12 0820 06/09/24 1847 -- VTE Prophylaxis: VTE prophylaxis appropriate Disposition: Home Plan of care discussed with: Provider, RN, Patient SIGNATURE: Av Coronado DO PATIENT NAME: Hayden Pendleton DATE: June 12, 2024 TIME: 5:05 PM etx [id number] [facility] 06-12-2024 Note HNO ID: [id number] Author: ARTEM HGUGINS RN Service: ? Author Type: Registered Nurse Type: Progress Notes Filed: 06/12/2024 13:01 Note Text: Patient back on unit from procedure. [facility] 06-12-2024 Note HNO ID: [id number] Author: AMY PRATHER RN Service: Care Management Author Type: Registered Nurse Type: Care Mgt Progress Note Filed: 06/12/2024 12:53 Note Text: CARE MANAGEMENT PROGRESS NOTE SERVICE DATE: 06/12/2024 SERVICE TIME: 1252 LOS: 3 days Patient off floor for LP. Will revisit for IA. SIGNATURE: Amy Prather RN PATIENT NAME: Hayden Pendleton DATE: June 12, 2024 TIME: 12:52 PM [facility] 06-12-2024 Note HNO ID: [id number] Author: ARTEM HUGGINS RN Service: ? Author Type: Registered Nurse Type: Progress Notes Filed: 06/12/2024 11:15 Note Text: Patient off unit for a procedure [facility] 06-11-2024 Note HNO ID: [id number] Author: AV CORONADO DO Service: Hospital Medicine Author Type: Physician Type: Progress Notes Filed: 06/11/2024 12:39 Note Text: DEPARTMENT OF HOSPITAL MEDICINE PROGRESS NOTE SERVICE DATE: 06/11/2024 SERVICE TIME: 12:37 PM Hospital Medicine/Primary Attending: Av Coronado DO NIGHT AND WEEKEND COVERAGE: [employer] COVERAGE: After 7pm, please call cross cover pager #[phone] Subjective INTERVAL HPI: 59 y/o male with PMHx of CAD, arthritis, HTN, HLD who presented for evaluation of progressive lethargy, weakness, dizziness and disequilibrium. Patient underwent negative non contrast MRI at [facility] to rule out stroke. He was being treated with valium, meclizine and scopolamine patch for his symptoms between his ENT and PCP. He was evaluated by neurology this admission and recommended MRI brain with and without contrast and LP, paraneoplastic panel also sent. MRI brain was only significant for chronic microvascular ischemic changes. MEDICATIONS: Reviewed Objective PHYSICAL EXAM: BP 137/80 Pulse 78 Temp (Src) 97.7 (Oral) Resp 17 Ht 6' 1 (1.85m) Wt 203 lb (92.1kg) SpO2 97% BMI 26.79 kg/(m2). O2 Therapy: Room Air Physical Exam Performed GENERAL: Alert, no distress, cooperative SKIN: Skin color, texture, turgor normal. No rashes or lesions. EYES: PERRLA OROPHARYNX: Lips, mucosa, and tongue normal. Teeth and gums normal. Oropharynx normal. LUNGS: Lungs clear to auscultation, Good diaphragmatic excursion CARDIAC: Normal S1 and S2; no rubs, murmurs, or gallops ABDOMEN: Abdomen soft, non-tender, BS normal, No masses or organomegaly EXTREMITIES: Extremities normal, no deformities, edema, clubbing or skin discoloration. Good capillary refill., No ulcers NEURO: 5/5 upper and lower extremity strength, no ataxia on finger to nose testing, patient has a wide base gait with ataxia Lines, Drains, and Airways Line Duration Peripheral 06/09/24 09 Left Forearm 20 Gauge 2 days Reviewed lines and needs to be continued: REASONS: Intravenous fluids DATA: Diagnostic tests reviewed for today's visit: Most recent labs and imaging results. Assessment/Plan Principal Problem: #Dizziness #Ataxia #Weakness #Confusion -neurology following with plan for MRI apryl w/ and w/o contrast, LP on Wednesday, paraneoplastic panel sent. B12 wnl, thiamine level pending, TSH and T4 levels wnl. Discussed with neurology and patient having progressive feeling of weakness throughout the day and feels like he can no longer sit up- labs for possible myasthenia gravis sent. NIF and VC checked and are wnl. MRI brain came back only significant for chronic microvascular ischemic changes. PT/OT consulted #CAD -continue asa, imdur, zetia, crestor, lopressor #tobacco abuse -nicotine patch Resolved Problems: * No resolved hospital problems. * Medication and Non-Pharmacologic VTE Prophylaxis/Anticoagulants Anticoagulant AND Antiplatelet Medications (From admission, onward) Start Dose Route Frequency Last Action Ordered Stop 06/10/24 0900 aspirin 81 mg chewable tab(s) 81 mg ORAL DAILY Given, 06/11 0906/09/24 1847 -- VTE Prophylaxis: VTE prophylaxis appropriate Disposition: Home Plan of care discussed with: Provider, RN, Patient SIGNATURE: Av Coronado DO PATIENT NAME: Hayden Pendleton DATE: June 11, 2024 TIME: 12:37 PM etx [phone] [facility] 06-10-2024 Note HNO ID: [id number] Author: AV CORONADO DO Service: Hospital Medicine Author Type: Physician Type: Progress Notes Filed: 06/10/2024 18:18 Note Text: DEPARTMENT OF HOSPITAL MEDICINE PROGRESS NOTE SERVICE DATE: 06/10/2024 SERVICE TIME: 6:10 PM Hospital Medicine/Primary Attending: Av Coronado DO NIGHT AND WEEKEND COVERAGE: [employer] COVERAGE: After 7pm, please call cross cover pager #[phone] Subjective INTERVAL HPI: 59 y/o male with PMHx of CAD, arthritis, HTN, HLD who presented for evaluation of progressive lethargy, weakness, dizziness and disequilibrium. Patient underwent negative non contrast MRI at [facility] to rule out stroke. He was being treated with valium, meclizine and scopolamine patch for his symptoms between his ENT and PCP. He was evaluated by neurology this admission and planned for MRI brain and LP, paraneoplastic panel also sent. MEDICATIONS: Reviewed Objective PHYSICAL EXAM: BP 125/76 Pulse 70 Temp (Src) 97.9 (Oral) Resp 19 Ht 6' 1 (1.85m) Wt 203 lb (92.1kg) SpO2 93% BMI 26.79 kg/(m2). O2 Therapy: Room Air Physical Exam Performed GENERAL: Alert, no distress, cooperative SKIN: Skin color, texture, turgor normal. No rashes or lesions. EYES: PERRLA OROPHARYNX: Lips, mucosa, and tongue normal. Teeth and gums normal. Oropharynx normal. LUNGS: Lungs clear to auscultation, Good diaphragmatic excursion CARDIAC: Normal S1 and S2; no rubs, murmurs, or gallops ABDOMEN: Abdomen soft, non-tender, BS normal, No masses or organomegaly EXTREMITIES: Extremities normal, no deformities, edema, clubbing or skin discoloration. Good capillary refill., No ulcers NEURO: 5/5 upper and lower extremity strength, no ataxia on finger to nose testing, patient has a wide base gait with ataxia Lines, Drains, and Airways Line Duration Peripheral 06/09/24 0917 Left Forearm 20 Gauge 1 day Reviewed lines and needs to be continued: REASONS: Intravenous fluids DATA: Diagnostic tests reviewed for today's visit: Most recent labs and imaging results. Assessment/Plan Principal Problem: #Dizziness #Ataxia #Weakness #Confusion -neurology following with plan for MRI apryl w/ and w/o contrast, LP on Wednesday, paraneoplastic panel sent. B12 wnl, thiamine level pending, will check TSH/T4 levels. Discussed with neurology and patient having progressive feeling of weakness throughout the day and feels like he can no longer sit up- labs for possible myasthenia gravis sent. NIF and VC checked and are wnl. PT/OT #CAD -continue asa, imdur, zetia, crestor, lopressor #tobacco abuse -nicotine patch Resolved Problems: * No resolved hospital problems. * Medication and Non-Pharmacologic VTE Prophylaxis/Anticoagulants Anticoagulant AND Antiplatelet Medications (From admission, onward) Start Dose Route Frequency Last Action Ordered Stop 06/10/24 0900 aspirin 81 mg chewable tab(s) 81 mg ORAL DAILY Given, 06/10 81706/09/24 1847 -- VTE Prophylaxis: VTE prophylaxis appropriate Disposition: Home Plan of care discussed with: Provider, RN, Patient SIGNATURE: Av Coronado DO PATIENT NAME: Hayden Pendleton DATE: June 10, 2024 TIME: 6:10 PM etx [id number] [facility] 06-10-2024 Note HNO ID: [id number] Author: PETR GRIMALDO APRN.CNP Service: Neurology General Author Type: Nurse Practitioner Type: Plan of Care Filed: 06/10/2024 12:04 Note Text: Chart reviewed. MRI brain, LP, and labs all pending. Will follow up as workup is available. Please call with questions. Petr Grimaldo CNP Neurology/Neurocritical Care [place] June 10, 2024 [facility] 06-09-2024 Note SARS-COV-2 (AGENT OF COVID-19) RNA: Not detected INFLUENZA A RNA: Not detected INFLUENZA B RNA: Not detected RESPIRATORY SYNCYTIAL VIRUS (RSV) RNA: Not detected [facility] Comment on above: Performed By: #### 9 [id number] ####[facility]ORATORYCLIA [id number] [place] [address] [place] 06-06-2024 Instructions Formatting of th is note might be different from the original. Patient educated on 48 hour holter monitor, and verbalizes understanding. [facility] 06-06-2024 Miscellaneous Notes Patient educated on 48 hour holter monitor, and verbalizes understanding. documented in this encounter [facility] 06-06-2024 Note HNO ID: [id number] Author: HEATHER DUBOIS RN Service: ? Author Type: Registered Nurse Type: Patient Education Filed: 06/06/2024 16:11 Note Text: Patient educated on 48 hour holter monitor, and verbalizes understanding. [facility] 06-06-2024 Note HNO ID: [id number] Author: FELICITAS CHAVEZ MD Service: ? Author Type: Physician Type: Progress Notes Filed: 06/06/2024 16:52 Note Text: Chief Complaint: Patient presents with: [...] he had an exercise stress echo at [facility] and was referred here to see a cigar wrapper after that. I do not have any records from his PCPs office. 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 He underwent four-vessel CABG on 10/25/[address] Alonso. Postop course was uneventful. He has been enrolled in cardiac rehab at [facility]. I received notification from them that [...] evaluation. He said he went to the [facility] ER on Wednesday. He said they did EKG and blood work and sent him home to follow-up with a cigar wrapper. 10/15/2021: Patient was started on Imdur at [...] breath gets worse. He recently saw a orchestrator who did a lung cancer screening CAT scan. Additionally he also had PFTs done recently and is due to see the orchestrator in follow-up next week. 02/23/2023: Patient denies any chest pain shortness of breath palpitations lightheadedness syncope orthopnea PND or leg edema. He continues to have some mild discomfort in the right parasternal region. This has been worked up in the past with normal stress test and heart catheterization showing patent grafts. He gets tired during the daytime easily. 06/06/2024: The patient is a 59-year-old male with a history of CAD, status post-CABG, presenting with constant vertigo and dyspnea. The patient reports experiencing constant vertigo for the past three weeks, describing it as a persistent feeling of wooziness rather than true spinning. The vertigo is exacerbated by head movements and physical activity. He also reports episodes of lightheadedness, including a recent incident where he felt like he was going to pass out. He has not driven due to these symptoms. He was evaluated by an ENT specialist, who performed the Hansel maneuver multiple times without improvement. He was also seen in the ED, where CT and MRI were normal. He was discharged with meclizine and a scopolamine patch, both of which have been ineffective. He has a history of Meniere's disease. He also reports new-onset dyspnea since the vertigo began, which worsens with activity. He experiences severe fat (more content not included)... [facility] 06-06-2024 History of Presen t illness Narrative Chief Complaint: Patient presents with: Cardiology Follow [...] he had an exercise stress echo at [facility] and was referred here to see a cigar wrapper after that. I do not have any records from his PCPs office. 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 He underwent four-vessel CABG on 10/25/[address] Alonso. Postop course was uneventful. He has been enrolled in cardiac rehab at [facility]. I received notification from them that [...] evaluation. He said he went to the [facility] ER on Wednesday. He said they did EKG and blood work and sent him home to follow-up with a cigar wrapper. 10/15/2021: Patient was started on Imdur at [...] breath gets worse. He recently saw a orchestrator who did a lung cancer screening CAT scan. Additionally he also had PFTs done recently and is due to see the orchestrator in follow-up next week. 02/23/2023: Patient denies any chest pain shortness of breath palpitations lightheadedness syncope orthopnea PND or leg edema. He continues to have some mild discomfort in the right parasternal region. This has been worked up in the past with normal stress test and heart catheterization showing patent grafts. He gets tired during the daytime easily. 06/06/2024: The patient is a 59-year-old male with a history of CAD, status post-CABG, presenting with constant vertigo and dyspnea. The patient reports experiencing constant vertigo for the past three weeks, describing it as a persistent feeling of wooziness rather than true spinning. The vertigo is exacerbated by head movements and physical activity. He also reports episodes of lightheadedness, including a recent incident where he felt like he was going to pass out. He has not driven due to these symptoms. He was evaluated by an ENT specialist, who performed the Hansel maneuver multiple times without improvement. He was also seen in the ED, where CT and MRI were normal. He was discharged with meclizine and a scopolamine patch, both of which have been ineffective. He has a history of Meniere's disease. He also reports new-onset dyspnea since the vertigo began, which worsens with activity. He experiences severe fatigue, describing himself as exhausted all the time, even after 8-9 hours of sleep. He has been unable to perform activities such as mowing the lawn. He also reports variable blood pressure readings, with a recent measurement of 100/52 mmHg. He denies chest pain. He has a history of hyperlipidemia and was previously on Zetia, which he discontinued for unknown reasons. Recent labs show an LDL of 160 mg/dL. He is currently on a statin. 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 He reports memory problems and confusion. He has a history of arthritis and recent labs showed a positive CHANDANA. TSH is normal at 1.070 mIU/L. He is currently taking metoprolol and Valium 5 mg, which was recently increased without improvement in symptoms. PAST MEDICAL HISTORY Diagnosis Date CAD (coronary artery disease) Dyslipidemia HTN (hypertension) Hx of CABG Low back pain Rheumatoid arthritis (HCC) PAST SURGICAL HISTORY Procedure Laterality Date CABG (4) VEIN GRAFTS & ARTERIAL GRAFT(S) 10/25/2020 HIP SURGERY HX Right SCAPULA Right FAMILY HISTORY Problem Relation Age of Onset Heart Attack Mother Heart Attack Sister Social History Tobacco Use Smoking status: Every Day Current packs/day: 1.00 Types: Cigarettes Smokeless tobacco: Never Vaping Use Vaping status: Never Used Substance Use Topics Alcohol use: Not Currently Drug use: Yes Types: Marijuana Comment: occasionally Current Outpatient Medications Medication Sig cyclobenzaprine (FLEXERIL) 5 mg tablet Take 10 mg by mouth three times a day as needed. diazePAM (VALIUM) 5 mg tablet TAKE 1 TABLET BY MOUTH ONCE DAILY NEEDED FOR ANXIETY/VERTIGO esomeprazole (NEXIUM) 40 mg capsule Take 1 capsule by mouth once daily. metoprolol tartrate, short acting, (LOPRESSOR) 25 mg tablet Take 1 tablet by mouth twice daily rosuvastatin (CRESTOR) 20 mg tablet TAKE 1 TABLET BY MOUTH ONCE DAILY AT BEDTIME isosorbide mononitrate ER (IMDUR) 30 mg 24 hr tablet Take 1 tablet by mouth once daily omeprazole (PRILOSEC) 40 mg capsule Take 40 mg by mouth as needed. aspirin 81 mg chewable tablet Take 1 tablet by mouth once daily. cholecalciferol, vitamin D3, (VITAMIN D3 ORAL) Take by mouth once daily. (Patient not taking: Reported on 06/06/2024) ezetimibe (ZETIA) 10 mg tablet Take 1 tablet by mouth once daily. (Patient not taking: Reported on 06/06/2024) nabumetone (RELAFEN) 500 mg tablet Take by mouth. (Patient not taking: Reported on 01/15/2021) pantoprazole DR (PROTONIX) 20 mg tablet Take 20 mg by mouth once daily. (Patient not taking: Reported on 09/03/2021) acetaminophen (TYLENOL) 500 mg tablet Take 2 tablets by mouth every 6 hours as needed for pain. (Patient not taking: Reported on 11/04/2023) melatonin 3 mg tablet Take 1 tablet by mouth at bedtime as needed (insomnia). (Patient not taking: Reported on 06/06/2024) nicotine (NICODERM) 14 mg/24 hr Apply 1 Patch as directed once daily. (Patient not taking: Reported on 04/23/2021 ) citalopram (CELEXA) 40 mg tablet Take 40 mg by mouth once daily. (Patient not taking: Reported on 06/06/2024) albuterol HFA (PROVENTIL HFA, VENTOLIN HFA) 90 mcg/actuation inhaler Inhale 2 Puffs as instructed. (Patient not taking: Reported on 02/23/2023) No current facility-administered medications for this visit. ALLERGIES Allergen Reactions Oxycotin [Oxycodone] Rash Prednisone Intolerance flushing of skin-steriods Review of Systems: Constant dizziness vertigo type station. No chest pain. Shortness of breath. Fatigue all the time Physical Examination: BP 123/71 (BP Site: Left Arm, BP Position: Sitting, BP Cuff Size: Regular Adult) Resp 16 Ht 6' 1 (1.854 m) Wt 202 lb (91.6 kg) SpO2 96% BMI 26.65 kg/m BMI 26.65 kg/(m^2) General appearance: Well appearing, alert, appears to be in no acute distress, cooperative HEENT: No JVD, no carotis bruit Lungs: Breath sounds equal. Clear to auscultation bilaterally, no rales, rhonchi, or wheezes Heart: RRR; normal S1/S2; no murmurs/gallops/rubs Extremities: No cyanosis, clubbing or edema Cardiac Testing and Procedures: Electrocardiogram: 06/06/2024: Sinus rhythm with frequent PVCs at 83 bpm. 09/03/2021: Sinus rhythm at 78 bpm with frequent PVCs. 10/09/2020: Normal sinus rhythm at 73 bpm. Normal EKG Echocardiogram May 2024 at [facility]: EF 60%. 02/25/2021: EF 60%. 10/23/2020: EF 56%. No [...] axis post-rest images being unavailable. Heart catheterization 11/05/2021: Distal left main 90%, proximal LAD 90%, mid circumflex 90%, proximal RCA 100%. Patent SVG to PDA, SVG to OM1 and SVG to D1. I have reviewed the images and it also shows patent WELLS to LAD. 10/22/2020: Distal left main 90% focal disease. Proximal LAD 90% focal disease. D2 70%. Proximal circumflex 70%. OM2 99% moderate disease. RCA GANG RIDER. Good collaterals from LAD and septals filling PDA and RPL retrogradely. CABG 10/25/2020: WELLS to LAD, SVG to diagonal, OM1 and PDA of RCA ASSESSMENT/PLAN: 1. Hyperlipidemia, unspecified hyperlipidemia type (E78.5) Dyslipidemia (E78.5) LDL cholesterol level done earlier this month at [place] is elevated at 160 mg/dL. Previously on Zetia, but medication was discontinued unclear why. - Restarted Zetia 10 mg once daily. Continue statins in the current dose. - Discussed potential addition of Repatha if LDL does not decrease to target level of 70 mg/dL. Will start once vertigo symptoms improve. - Ordered a 3-month supply of Zetia. 2. Coronary artery disease involving [place] coronary artery of [place] heart without angina pectoris (I25.10) Hx of CABG (Z95.1) Patient has a history of quadruple bypass surgery. Recent echocardiogram on May 26 shows normal ejection fraction of 60%. Denies any anginal symptoms. He is to continue aspirin beta-blockers and statins. I have added Zetia. Will start PCSK9 inhibitors once patient recovers from his current vertigo issues. - Ordered a chemical stress test to be performed at [place]. 3. SHAH (dyspnea on exertion) (R06.09) Shortness of breath noted, particularly with increased activity. Recent EKG showed PVCs. Echocardiogram done at [place] recently showed normal heart function. - Ordered a 48-hour Holter monitor to assess frequency of PVCs. - Monitor to be fitted today if possible; instructions for return will be provided. 4. Vertigo (R42) Persistent vertigo for three weeks, described as a constant feeling of wooziness and lightheadedness. Hansel maneuver performed by ENT was ineffective. CT and MRI scans were normal. - Advised that constant vertigo is not indicative of cardiac issues. Orthostatic vital signs were negative. - Recommended follow-up with ENT and neurology for further evaluation. 5. Palpitations (R00.2) Episodes of palpitations noted, possibly related to PVCs observed on EKG. - 48-hour Holter monitor will help assess the frequency and significance of PVCs. Continue beta blockers. TSH done recently at [facility] was normal. The patient consented to the use of [employer] software for draft documentation of the visit consistent with [facility] s Notice of Privacy Practices. Felicitas Chavez MD documented in this encounter [facility] 05-26-2024 Discharge summary Note Date/Time May 26, 2024 1:49pm [facility] Medical Records Department [address] [place] [address] Instructions for Home/Discharge Instructions 05/26/24 1342 MR#: [id number] Acct: [id number] Name: HAYDEN PENDLETON Rep #:[id number] : 1965 59 From: Marcos seo DO PCP: Jess Rosas NP-C Status:ADM DAJA Discharge Instructions Diet Discharge Diet: No restrictions DC O2, CPAP, BIPAP needs Home O2 Discharge instructions: No Dressing / Incision Discharge Activity: No Restrictions Follow Up Care Test Results: Test results from this visit will be discussed in further detail at your follow-up appointment, if applicable. Discharge Plan Admission Admit Date/Time: 05/25/24 14:14 Primary Reason for Your Visit: Vertigo Attending Provider: Marcos Lovelace Primary Care Provider: Jess Rosas [facility] Consulting Providers: Nilo Hill; Radha Leyva; Mariana Stiles; Jie Palacio; Ashanti Leslie; Christiano Garcia; Mary Walls; Washington Masters; Abhay Sin; Иван Rutledge; Renee Beck; Tigre Masterson; Hanna Hammond; Bonnie Vicente; Benja Ivey; Alvin Ward; Ozzie Gibbs; Sabas Piedra; Kaylan Paulino; Ravi Fonseca;Joi Woodson Instructions Additional Instructions / Restrictions: Use scopolamine patch as needed to help with vertigo. Follow-up with vestibularphysical therapy in the outpatient setting as well. Discharge Orders/Prescriptions Prescriptions: New scopolamine base 1 mg over 3 days Patch 3 Day 1 patch transdermal Q3D 14 Days Qty: 5 0RF Continued aspirin [Adult Low Dose Aspirin] 81 mg tablet,delayed release (DR/EC) 81 mg PO DAILY acetaminophen [Tylenol Extra Strength] 500 mg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 [facility]11-18-2024 Miscellaneous Notes* Telephone Encounter - Damaris Latham RN - 01/10/2024 7:49 AM EST Patient's request for medication is as follows: Requested Prescriptions Pending Prescriptions Disp Refills isosorbide mononitrate ER (IMDUR) 30 mg 24 hr tablet [Pharmacy Med Name: Isosorbide Mononitrate ER 30 MG Oral Tablet Extended Release 24 Hour] 90 tablet 3 Sig: Take 1 tablet by mouth once daily Last visit 03/13/23. Next visit 06/06/24. Prescription(s) as above. Please process accordingly. Damaris Latham RN documented in [facility] encounterC[facility]11-[facility]-2024 Telephone encounter Note * Telephone Encounter - Maira Pope - 01/07/2024 7:27 AM EST Scheduled patient with Dr. Chavez for 06-06-24 at 3 pm in [place]. Sent [employer] message and letter to home address. Thanks Maira Pope [facility]11-15-2024 Telephone encounter Note* Telephone Encounter - Celia Smallwood LPN - 01/07/2024 7:13 AM EST Last seen 02/23/2023. Please call patient with annual appointment. Thank you! Celia Smallwood LPN [facility]11-15-2024 Telephone encounter Note* Telephone Encounter - Celia Smallwood LPN - 01/07/2024 7:11 AM EST Patient's request for medication is as follows: Requested Prescriptions Pending Prescriptions Disp Refills metoprolol tartrate, short acting, (LOPRESSOR) 25 mg tablet 180 tablet 0 Sig: Take 1 tablet by mouth two times a day. Last seen 02/23/2023. Message sent to clerical to call patient with annual appointment. Prescription(s) as above. Please process accordingly. Celia Smallwood LPN [facility]11-15-2024 Miscellaneous Notes* Telephone Encounter - Celia Smallwood LPN - 01/07/2024 7:11 AM EST Patient's request for medication is as follows: Requested Prescriptions Pending Prescriptions Disp Refills metoprolol tartrate, short acting, (LOPRESSOR) 25 mg tablet 180 tablet 0 Sig: Take 1 tablet by mouth two times a day. Last seen 02/23/2023. Message sent to clerical to call patient with annual appointment. Prescription(s) as above. Please process accordingly. Celia Smallwood LPN documented in this encounterC[facility]09-30-2024 NoteHNO ID: [id number] Author: CIERA PALM MD Service: ? Author Type: Physician Type: Progress Notes Filed: 11/22/2023 16:59 Note Text: Rheumatology Outpatient Clinic Date of Service: 11/22/2023 Patient: Hayden Pendleton Medical Record: [id number] Primary Care Physician: Quang Hanson MD Referring Provider: Ramirez Santos1 [address] [facility] [address] Last Rheumatology visit: 11/04/2023 (with Ciera Palm) Chief complaint: Follow Up The patient's identity and physical location were verified at the time of this visit. Either the patient or their legal collections representative has been informed of the risks and benefits of virtual visit and alternative treatment through a remote evaluation and consents to proceed with the evaluation remotely. History of Present Illness Hayden Pendleton is a 58 year old White male with medical history of CAD s/p CABG, hypertension, depression, hyperlipidemia, right hip surgery, right scapula surgery, presents on 11/22/2023 for a virtual visit for evaluation of Follow Up. Hayden is RF negative - 14 (08/09/2023). His most recent CHANDANA was positive (08/09/2023). History of present illness Seen as new patient on 11/04/2023, per HPI- Seen in Ortho clinic 07/2023 for bilateral knee pain which is going on for 10 to 15 years, Found to have positive CHANDANA and referred to rheumatology. 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 Also reports having vertigo on and off, mostly positional, has gotten better sometimes with Hansel's maneuver, has seen ENT locally. Also reports of balance and memory issues, has not seen neurology During initial evaluation on 11/04/2023-I did not find any evidence of synovitis,Based on his symptoms, his pain sounds mostly mechanical, likely related to osteoarthritis however due to prolonged morning stiffness, history of joint swelling and reported history of ulcerative colitis, will rule out spondyloarthritis 10/2023-had virtual visit for follow-up Reports White bumps on side of legs and chest that never seem to heal, itchy. Continues to have joint pain He does not think knee swelling is significant enough to be drained. Previous workups 10/2023 Anticentromere 1.8 Other anti-MOHINI negative Sed rate/CRP normal CMP/CBC unremarkable HbA1c 6 Vitamin B12 normal 07/2023 Rheumatoid factor negative CHANDANA positive, 1: 160 Anticentromere antibody 1.6, Other anti-MOHINI, dsDNA negative 10/2021 CBC unremarkable BMP unremarkable Radiograph bilateral knees 07/2023-minimal degenerative changes Radiograph lumbar spine 10/2023-mild degenerative changes Radiograph SI joint 10/2023-unremarkable Radiograph bilateral feet and hand 10/2023-no findings suggestive of inflammatory arthritis Radiograph bilateral knees 07/2023-Osteopenia. Tiny marginal osteophytes of both knees. No significant joint space narrowing. Distal quadriceps tendon enthesophytes bilaterally. No significant joint effusion. Surgical clips medial to the right knee. No acute fracture or dislocation. There are no bony erosions. Chest radiograph 11/2020-unremarkable Radiograph thoracic spine 06/2013-Minimal bony bridging is seen at several levels in the lower thoracic spine. No obvious bony destruction. Patient-Entered Data PAIN EVALUATION 11/21/2023 1443 Pain Level: 8 Pain Location: Back Description: Aching Duration Amount of Time: 24 Duration Units: Hours Frequency: Continuous PROMIS Assessments 11/03/2023 PROMIS Assessments Physical Health Percentile 0 Mental Health Percentile 0 Pain Score 2 Pain Interference Percentile 0 Fatigue Percentile 0 Physical Function Percentile 14 RAPID 3 [place] Activities of Daily Living 11/03/2023 7:18 PM Dress self? With SOME difficulty Get in and out of bed? With SOME difficulty Walk outdoors? With SOME difficulty Wash and dry body? With SOME difficulty Get in and out of car? With SOME difficulty RAPID 3 Disease Activity Weighed Score Levels: 0 - 1: Near Remission 1.3 - 2.0: Low Severity 2.3 - 4.0: Moderate Severity 4.3 - 10.0: High Severity 11/03/2023 RAPID-3 Weighed Score RAPID 3 Weighed Score 7.11 (High severity ) Review of Systems Review of Systems CONSTITUTION: Negative for: Fever and Recent weight change HEENT: Negative for: Nosebleeds, Mouth sores, Troubl (more content not included)...[facility]09-30-2024 History of Present illness Narrative* Ciera Palm MD - 11/22/2023 4:03 PM EDT Images from the original note were not included. Rheumatology Outpatient Clinic Date of Service: 11/22/2023 Patient: Hayden Pendleton Medical Record: [id number] Primary Care Physician: Quang Hanson MD Referring Provider: Ramirez Santos[address] [facility] [address] Last Rheumatology visit: 11/04/2023 (with Ciera Palm) Chief complaint: Follow Up The patient's identity and physical location were verified at the time of this visit. Either the patient or their legal collections representative has been informed of the risks and benefits of virtual visit andalternative treatment through a remote evaluation and consents to proceed with the evaluation remotely. History of Present Illness Hayden Pendleton is a 58 year old White male with medical history of CAD s/p CABG, hypertension, depression, hyperlipidemia, right hip surgery, right scapula surgery, presents on 11/22/2023 for a virtual visit for evaluation of Follow Up. Hayden is RF negative - 14 (08/09/2023). His most recent CHANDANA was positive (08/09/2023). History of present illness Seen as new patient on 11/04/2023, per HPI- Seen in Ortho clinic 07/2023 for bilateral knee pain which is going on for 10 to 15 years, Found to have positive CHANADNA and referred to rheumatology. 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 Also reports having vertigo on and off, mostly positional, has gotten better sometimes with Hansel'smaneuver, has seen ENT locally. Also reports of balance and memory issues, has not seen neurology During initial evaluation on 11/04/2023-I did not find any evidence of synovitis,Based on his symptoms, his pain sounds mostly mechanical, likely related to osteoarthritis however due to prolonged morning stiffness, history of joint swelling and reported history of ulcerative colitis, will rule out s pondyloarthritis 10/2023-had virtual visit for follow-up Reports White bumps on side of legs and chest that never seem to heal, itchy. Continues to have joint pain He does not think knee swelling is significant enough to be drained. Previous workups 10/2023 Anticentromere 1.8 Other anti-MOHINI negative Sed rate/CRP normal CMP/CBC unremarkable HbA1c 6 Vitamin B12 normal 07/2023 Rheumatoid factor negative CHANDANA positive, 1: 160 Anticentromere antibody 1.6, Other anti-MOHINI, dsDNA negative 10/2021 CBC unremarkable BMP unremarkable Radiograph bilateral knees 07/2023-minimal degenerative changes Radiograph lumbar spine 10/2023-mild degenerative changes Radiograph SI joint 10/2023-unremarkable Radiograph bilateral feet and hand 10/2023-no findings suggestive of inflammatory arthritis Radiograph bilateral knees 07/2023-Osteopenia. Tiny marginal osteophytes of both knees. No significant joint space narrowing. Distal quadriceps tendon enthesophytes bilaterally. No significant joint effusion. Surgical clips medial to the right knee. No acute fracture or dislocation. There are no bony erosions. Chest radiograph 11/2020-unremarkable Radiograph thoracic spine 06/2013-Minimal bony bridging is seen at several levels in the lower thoracic spine. No obvious bony destruction. Patient-Entered Data PAIN EVALUATION 11/21/2023 1443 Pain Level: 8 Pain Location: Back Description: Aching Duration Amount of Time: 24 Duration Units: Hours Frequency: Continuous PROMIS Assessments 11/03/2023 PROMIS Assessments Physical Health Percentile 0 Mental Health Percentile 0 Pain Score 2 Pain Interference Percentile 0 Fatigue Percentile 0 Physical Function Percentile 14 RAPID 3 [place] Activities of Daily Living 11/03/2023 7:18 PM Dress self? With SOME difficulty Get in and out of bed? With SOME difficulty Walk outdoors? With SOME difficulty Wash and dry body? With SOME difficulty Get in and out of car? With SOME difficulty RAPID 3 Disease Activity Weighed Score Levels: 0 - 1: Near Remission 1.3 - 2.0: Low Severity 2.3 - 4.0: Moderate Severity 4.3 - 10.0: High Severity 11/03/2023 RAPID-3 Weighed Score RAPID 3 Weighed Score 7.11 (High severity ) Review of Systems Review of Systems CONSTITUTION: Negative for: Fever and Recent weight change HEENT: Negative for: Nosebleeds, Mouth sores, Trouble swallowing and Dry mouth RESPIRATORY: Negative for: Cough, Shortness of breath and Pain with breathing GASTROINTESTINAL: Positive for: Heartburn Negative for: Melena, Diarrhea and Abdominal pain MUSCULOSKELETAL: Positive for: Arthralgias, Myalgias, Muscle weakness, Joint swelling and Morning Joint Stiffness NEUROLOGICAL: Positive for: Numbness and Memory loss Negative for: Headaches SKIN: Negative for: Rash, Skin changes, Hair loss and Nail changes EYES: Negative for: Eye pain, Eye redness, Eye dryness and visual disturbance CARDIOVASCULAR: Negative for: Chest pain and Leg swelling GENITOURINARY: Negative for: Dysuria and Hematuria HEMATOLOGIC/LYMPHATIC: Negative for: Swollen glands Lost 8 pounds since 02/2023 Numbness: Bilateral hands on and off Raynaud's: White with cold Past Medical History PAST MEDICAL HISTORY Diagnosis Date CAD (coronary artery disease) Dyslipidemia HTN (hypertension) Hx of CABG Low back pain Rheumatoid arthritis (HCC) Past Surgical History PAST SURGICAL HISTORY Procedure Laterality Date CABG (4) VEIN GRAFTS & ARTERIAL GRAFT(S) 10/25/2020 HIP SURGERY HX Right SCAPULA Right Allergy ALLERGIES Allergen Reactions Oxycotin [Oxycodone] Rash Prednisone Intolerance flushing of skin-steriods Family History 2 sons- Crohns Sister- SLE FAMILY HISTORY Problem Relation Age of Onset Heart Attack Mother Heart Attack Sister Social History Social History Tobacco Use Smoking status: Every Day Current packs/day: 0.50 Types: Cigarettes Smokeless tobacco: Never Vaping Use Vaping status: Never Used Substance Use Topics Alcohol use: Not Currently Comment: occ Drug use: Yes Types: Marijuana Comment: occasionally Current Medications Current Outpatient Medications Medication Sig isosorbide mononitrate ER (IMDUR) 30 mg 24 hr tablet Take 1 tablet by mouth once daily. (Patient not taking: Reported on 11/04/2023) rosuvastatin (CRESTOR) 20 mg tablet Take 1 tablet by mouth daily at bedtime. cholecalciferol, vitamin D3, (VITAMIN D3 ORAL) Take by mouth once daily. (Patient not taking: Reported on 11/04/2023) metoprolol tartrate, short acting, (LOPRESSOR) 25 mg tablet Take 1 tablet by mouth two times a day. ezetimibe (ZETIA) 10 mg tablet Take 1 tablet by mouth once daily. (Patient not taking: Reported on 02/23/2023) nabumetone (RELAFEN) 500 mg tablet Take by mouth. (Patient not taking: Reported on 01/15/2021) omeprazole (PRILOSEC) 40 mg capsule Take 40 mg by mouth as needed. pantoprazole DR (PROTONIX) 20 mg tablet Take 20 mg by mouth once daily. (Patient not taking: Reported on 09/03/2021) aspirin 81 mg chewable tablet Take 1 tablet by mouth once daily. acetaminophen (TYLENOL) 500 mg tablet Take 2 tablets by mouth every 6 hours as needed for pain. (Patient not taking: Reported on 11/04/2023) melatonin 3 mg tablet Take 1 tablet by mouth at bedtime as needed (insomnia). (Patient not taking: Reported on 11/04/2023) nicotine (NICODERM) 14 mg/24 hr Apply 1 Patch as directed once daily. (Patient not taking: Reportedon 04/23/2021 ) citalopram (CELEXA) 40 mg tablet Take 40 mg by mouth once daily. (Patient not taking: Reported on 02/23/2023) albuterol HFA (PROVENTIL HFA, VENTOLIN HFA) 90 mcg/actuation inhaler Inhale 2 Puffs as instructed. (Patient not taking: Reported on 02/23/2023) No current facility-administered medications for this visit. Labs Latest Ref Rng & Units 10/28/2020 11/16/2020 11/01/2021 11/04/2023 CBC WBC 3.70 - 11.00 k/uL 8.88 8.42 7.58 6.96 Hemoglobin 13.0 - 17.0 g/dL 10.1 11.6 15.3 16.0 Hematocrit 39.0 - 51.0 % 30.7 37.7 44.3 46.3 Platelet Count 150 - 400 k/uL 154 508 291 269 Abs Neut (ANC) 1.45 - 7.50 k/uL 5.54 3.15 Abs Lymph 1.00 - 4.00 k/uL 2.14 3.14 Latest Ref Rng & Units 10/27/2020 10/28/2020 11/01/2021 11/04/2023 CMP Sodium 136 - 144 mmol/L 134 135 139 138 Potassium 3.7 - 5.1 mmol/L 4.5 4.2 4.5 4.7 Chloride 98 - 107 mmol/L 98 97 104 100 CO2 22 - 30 mmol/L 27 27 24 26 Glucose 74 - 99 mg/dL 138 118 119 109 BUN 9 - 24 mg/dL 17 15 20 14 Creatinine 0.73 - 1.22 mg/dL 1.09 0.99 1.15 1.06 Calcium 8.5 - 10.2 mg/dL 8.8 8.7 10.1 10.0 AST 14 - 40 U/L 28 ALT 10 - 54 U/L 29 Alkaline Phosphatase 38 - 113 U/L 78 Latest Ref Rng & Units 11/04/2023 ESR, WSR WSR 0 - 15 mm/hr 15 Latest Ref Rng & Units 11/04/2023 CRP CRP <0.9 mg/dL 0.6 Latest Ref Rng & Units 08/09/2023 RF and CCP Rheumatoid Factor <16 IU/mL 14 Latest Ref Rng & Units 10/25/2020 10/26/2020 08/09/2023 11/04/2023 Antibodies CHANDANA Negative Positive CHANDANA Titer 1:160 CHANDANA Pattern Centromere DNA Antibody <=200 IU/mL 49 Anti-Sm <1.0 AI <0.2 <0.2 Sm Antibody Negative Negative Negative Ribosomal STUDIO MODEL Ab <1.0 AI <0.2 <0.2 Ribosomal STUDIO MODEL Qualitative Negative Negative Negative Chromatin Ab <1.0 AI <0.2 <0.2 Chromatin Ab Qual Negative Negative Negative SSA Antibody Qual Negative Negative Negative Anti-SSA <1.0 AI <0.2 <0.2 Anti-SSB <1.0 AI <0.2 <0.2 STUDIO MODEL Antibody QUAL Negative Negative Negative Scleroderma Ab Qual Negative Negative Negative Scl-70 Abs, EIA <1.0 AI <0.2 <0.2 Centromere Ab <1.0 AI 1.6 1.8 CENTROMERE AB QUAL Negative Positive Positive GUERLINE-1 ANTIBODY, IGG <1.0 AI <0.2 <0.2 GUERLINE 1 ANTIBODY QUAL Negative Negative Negative PT Sec 9.7 - 13.0 sec 11.6 10.9 PT INR 0.9 - 1.3 1.1 1.0 APTT 23.0 - 32.4 sec 27.8 Latest Ref Rng & Units 10/22/2020 Urinalysis Protein, Urine Negative Negative RBC, Urine 0-3 /HPF 0-3 /HPF Latest Ref Rng & Units 11/04/2023 Vitamin B12 Vitamin B12 232 - 1,245 pg/mL 353 Imaging Last XR Hand/Finger - Impression Only XR HAND GENERAL 3V PA/LAT/OBL BILATERAL Exam End: 11/09/2023 4:28 PM (Final result) Impression: IMPRESSION: No findings to suggest inflammatory arthropathy in either hand or foot. Machine Coremaker: JACKI Transcribe Date/Time: Nov 13 2023 4:18P... Last MRI Hand - Impression Only No resulted procedures found. Last XR Chest - Impression Only XR CHEST 2V FRONTAL/LAT Exam End: 11/22/2020 1:44 PM (Final result) Impression: IMPRESSION: No acute radiographic abnormality. ... Last XR Cervical Spine - Impression Only XR CERV OTHER 4V AP/LAT/OBL Exam End: 11/09/2023 4:28 PM (Final result) Impression: IMPRESSION: Cervical spine degenerative changes as described above. Machine Coremaker: JACKI Transcribe Date/Time: Nov 11 2023 2:40P Dictated by : JEROD SEGOVIA MD ... Health Maintenance Current Immunizations Reviewed on 11/04/2023 No immunizations on file. Physical Exam Exam limited as this is a video visit General: no acute distress, Resp: No acute distress, normal respirations Neuro: alert, No facial asymmetry; normal cognition Diagnoses: (R76.8) CHANDANA positive (primary encounter diagnosis) (M25.561, M25.562, G89.29) Chronic pain of both knees (M17.0) Primary osteoarthritis of both knees Impression and Plan Polyarthralgia with chronic back pain Patient with multiple joint pain including mid back, low back, knees, hands, elbows, ankles, feet for many years which is worse in the evening and worse with activities however reports stiffness for hours in the morning and has noted swelling along MCPs and knees Never had arthrocentesis Reportedly with history of ulcerative colitis based on biopsy, never treated, continues to have diarrhea sometimes but nonbloody No history of uveitis/iritis, dactylitis Had No synovitis or joint effusion on exam during last visit Radiograph bilateral knees, lumbar spine with changes related to osteoarthritis, radiograph SI joint with no sacroiliitis, radiograph bilateral hands and feet with no changes related to inflammatory arthritis Had normal sed rate and CRP, had negative rheumatoid factor Based on his symptoms, blood tests as well as imagings, his pain is likely related to osteoarthritis Advised follow-up with gastroenterology for repeat colonoscopy Advised to let me know if he has recurrence of knee swelling so he can be evaluated for arthrocentesis 3 mm radiopaque opacity over left kidney, denies history of kidney stones, obtain urinalysis 2. Positive CHANDANA Noted mildly elevated CHANDANA with minimal anticentromere antibody, other anti-MOHINI and dsDNA is negative He reports Whitish finger with cold but no triphasic color change No evidence of sclerodactyly or skin thickening Do not suspect scleroderma at this time, Continue monitoring for evolution of any signs and symptoms related to scleroderma 3. Healthcare maintenance/Malignancy screening Defer to PCP Orders this visit: [facility] on 11/22/23 URINALYSIS, WITH MICROSCOPIC Return in about 1 year (around 11/21/2024), or if symptoms worsen or fail to improve. I spent a total of 34 minutes on the date of the service which included preparing to see the patient, completing clinical documentation, obtaining and/or reviewing separately obtained history, counseling and educating the patient/family/caregiver, and ordering medications, tests, or procedures. This note was partially generated with the assistance of [employer] voice recognition software. An attempt was made to correct any dictation errors however there may be some incorrect words, spellings, and punctuation. Ciera Palm MD [facility] Rheumatology Associate Staff [facility] Test Riderhospital admissions officer [facility] documented in this encounterC[facility]09-17-2024 History of Present illness Narrative* Kay Galeas, RT(R) - 11/09/2023 4:00 PM EDT l Radiology Service Progress Note PATIENT NAME: Hayden Pendleton DATE OF SERVICE: November 09, 2023 TIME: 3:57 PM PATIENT IDENTITY VERIFICATION COMPLETED USING TWO (2) IDENTIFIERS: Name and Date of confirmedby patient verbally. FALL SCREENING: Has the patient had 2 falls in the last year or 1 fall with injury or currently using an Ambulatory Assistive Device (Walker, Cane, Wheelchair, Crutches, etc.)? No PATIENT GENDER DATA: Male PATIENT RELEVANT IMPLANT DATA REVIEWED: Not Applicable PATIENT PRESENTS WITH AN IMPLANTABLE OR ATTACHED JOB DEVELOPER: No RADIOLOGY DEPARTMENT: General X-ray: Exam(s) Completed: Spine X-Ray(s): Cervical AP / LAT / OBL , Thoracic, and Lumbar AP / LAT / L5-S1 Lower Extremity X-Ray(s): Foot, Bilateral Upper Extremity X-Ray(s): Hand, bilateral si joints 2v PERIPHERAL IV DATA: Not applicable SIGNED BY: DEO Kuhn) November 09, 2023 3:57 PM documented in this encounterC[facility]09-17-2024 NoteHNO ID: [id number] Author: KAY GALEAS RT (R) Service: Radiology Author Type: Technologist Type: Progress Notes Filed: 11/09/2023 16:29 Note Text: l Radiology Service Progress Note PATIENT NAME: Hayden Pendleton DATE OF SERVICE: November 09, 2023 TIME: 3:57 PM PATIENT IDENTITY VERIFICATION COMPLETED USING TWO (2) IDENTIFIERS: Name and Date of confirmed by patient verbally. FALL SCREENING: Has the patient had 2 falls in the last year or 1 fall with injury or currently using an Ambulatory Assistive Device (Walker, Cane, Wheelchair, Crutches, etc.)? No PATIENT GENDER DATA: Male PATIENT RELEVANT IMPLANT DATA REVIEWED: Not Applicable PATIENT PRESENTS WITH AN IMPLANTABLE OR ATTACHED JOB DEVELOPER: No RADIOLOGY DEPARTMENT: General X-ray: Exam(s) Completed: Spine X-Ray(s): Cervical AP / LAT / OBL , Thoracic, and Lumbar AP / LAT / L5-S1 Lower Extremity X-Ray(s): Foot, Bilateral Upper Extremity X-Ray(s): Hand, bilateral si joints 2v PERIPHERAL IV DATA: Not applicable SIGNED BY: RT Hattie(Cy) November 09, 2023 3:57 [facility]09-12-2024 History of Present illness Narrative* Ciera Palm MD - 11/04/2023 9:40 AM EDT Images from the original note were not included. Rheumatology Outpatient Clinic Date of Service: 11/04/2023 Patient: Hayden Pendleton Medical Record: [id number] Primary Care Physician: Quang Hanson MD Referring Provider: Ramirez Thomas [address] [facility] [address] Last Rheumatology visit: None at [facility] Chief complaint: Joint Pain and Positive CHANDANA Consultation requested by Ramirez Pelayo for an opinion regarding positive CHANDANA, osteoarthritis. My final recommendations will be communicated back to the requesting physician by way of shared Medical record or letter to requesting physicianvia US mail. History of Present Illness Hayden Pendleton is a 58 year old White male with medical history of CAD s/p CABG, hypertension, depression, hyperlipidemia, right hip surgery, right scapula surgery, presents on 11/04/2023 for an in-person visit for evaluation of Joint Pain andPositive CHANDANA. Hayden is RF negative - 14 (08/09/2023). His most recent CHANDANA was positive (08/09/2023). History of present illness Seen in Ortho clinic 07/2023 for bilateral knee pain which is going on for 10 to 15 years, Found to have positive CHANDANA and referred to rheumatology. 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 Also reports having vertigo on and off, mostly positional, has gotten better sometimes with Hansel'neuver, has seen ENT locally. Also reports of balance and memory issues, has not seen neurology Previous workups 07/2023 Rheumatoid factor negative CHANDANA positive, 1: 160 Anticentromere antibody 1.6, Other anti-MOHINI, dsDNA negative 10/2021 CBC unremarkable BMP unremarkable Radiograph bilateral knees 07/2023-Osteopenia. Tiny marginal osteophytes of both knees. No significant joint space narrowing. Distal quadriceps tendon enthesophytes bilaterally. No significant joint effusion. Surgical clips medial to the right knee. No acute fracture or dislocation. There are no bony erosions. Chest radiograph 11/2020-unremarkable Radiograph thoracic spine 06/2013-Minimal bony bridging is seen at several levels in the lower thoracic spine. No obvious bony destruction. Patient-Entered Data PAIN EVALUATION 11/03/2023 1908 11/04/2023 0941 Pain Level: 8 5 Pain Location: Other: See Comment -- all over Description: Aching;Burning;Numbness;Pressure;Radiating;Sharp;Sore;Spasm;Stabbing;Stiffness;T enderness;Throbbing;Tightness;Tingling -- Duration Amount of Time: 24 -- Duration Units: Months -- Frequency: Continuous Continuous Intervention/Comfort measure: Medication;Relaxation -- Comments: All over body -- PROMIS Assessments 11/03/2023 PROMIS Assessments Physical Health Percentile 0 Mental Health Percentile 0 Pain Score 2 Pain Interference Percentile 0 Fatigue Percentile 0 Physical Function Percentile 14 RAPID 3 Morales Activities of Daily Living 11/03/2023 7:18 PM Dress self? With SOME difficulty Get in and out of bed? With SOME difficulty Walk outdoors? With SOME difficulty Wash and dry body? With SOME difficulty Get in and out of car? With SOME difficulty RAPID 3 Disease Activity Weighed Score Levels: 0 - 1: Near Remission 1.3 - 2.0: Low Severity 2.3 - 4.0: Moderate Severity 4.3 - 10.0: High Severity 11/03/2023 RAPID-3 Weighed Score RAPID 3 Weighed Score 7.11 (High severity ) Review of Systems Review of Systems CONSTITUTION: Positive for: Recent weight change Negative for: Fever HEENT: Positive for: Trouble swallowing and Dry mouth Negative for: Nosebleeds and Mouth sores RESPIRATORY: Positive for: Cough and Shortness of breath Negative for: Pain with breathing and Coughing up blood GASTROINTESTINAL: Positive for: Diarrhea, Heartburn and Abdominal pain Negative for: Melena MUSCULOSKELETAL: Positive for: Arthralgias, Myalgias, Muscle weakness, Joint swelling and Morning Joint Stiffness NEUROLOGICAL: Positive for: Numbness and Memory loss Negative for: Headaches SKIN: Negative for: Rash, Skin changes, Hair loss and Nail changes EYES: Positive for: Eye pain and Visual disturbance Negative for: Eye redness and Eye dryness CARDIOVASCULAR: Negative for: Chest pain and Leg swelling GENITOURINARY: Negative for: Dysuria and Hematuria HEMATOLOGIC/LYMPHATIC: Negative for: Swollen glands Lost 8 pounds since 02/2023 Numbness: Bilateral hands on and off Raynaud's: White with cold Past Medical History PAST MEDICAL HISTORY No date: CAD (coronary artery disease) No date: Dyslipidemia No date: HTN (hypertension) No date: Hx of CABG No date: Low back pain No date: Rheumatoid arthritis (HCC) Past Surgical History PAST SURGICAL HISTORY 10/25/2020: CABG (4) VEIN GRAFTS & ARTERIAL GRAFT(S) No date: HIP SURGERY HX; Right No date: SCAPULA; Right Allergy ALLERGIES Allergen Reactions Oxycotin [Oxycodone] Rash Prednisone Intolerance flushing of skin-steriods Family History 2 sons- Crohns Sister- SLE FAMILY HISTORY Problem Relation Age of Onset Heart Attack Mother Heart Attack Sister Social History Social History Tobacco Use Smoking status: Every Day Current packs/day: 0.50 Types: Cigarettes Smokeless tobacco: Never Vaping Use Vaping status: Never Used Substance Use Topics Alcohol use: Not Currently Comment: occ Drug use: Yes Types: Marijuana Comment: occasionally Current Medications Current Outpatient Medications Medication Sig rosuvastatin (CRESTOR) 20 mg tablet Take 1 tablet by mouth daily at bedtime. metoprolol tartrate, short acting, (LOPRESSOR) 25 mg tablet Take 1 tablet by mouth two times a day. omeprazole (PRILOSEC) 40 mg capsule Take 40 mg by mouth as needed. aspirin 81 mg chewable tablet Take 1 tablet by mouth once daily. isosorbide mononitrate ER (IMDUR) 30 mg 24 hr tablet Take 1 tablet by mouth once daily. (Patient not taking: Reported on 11/04/2023) cholecalciferol, vitamin D3, (VITAMIN D3 ORAL) Take by mouth once daily. (Patient not taking: Reported on 11/04/2023) ezetimibe (ZETIA) 10 mg tablet Take 1 tablet by mouth once daily. (Patient not taking: Reported on 02/23/2023) nabumetone (RELAFEN) 500 mg tablet Take by mouth. (Patient not taking: Reported on 01/15/2021) pantoprazole DR (PROTONIX) 20 mg tablet Take 20 mg by mouth once daily. (Patient not taking: Reported on 09/03/2021) acetaminophen (TYLENOL) 500 mg tablet Take 2 tablets by mouth every 6 hours as needed for pain. (Patient not taking: Reported on 11/04/2023) melatonin 3 mg tablet Take 1 tablet by mouth at bedtime as needed (insomnia). (Patient not taking: Reported on 11/04/2023) nicotine (NICODERM) 14 mg/24 hr Apply 1 Patch as directed once daily. (Patient not taking: Reportedon 04/23/2021 ) citalopram (CELEXA) 40 mg tablet Take 40 mg by mouth once daily. (Patient not taking: Reported on 02/23/2023) albuterol HFA (PROVENTIL HFA, VENTOLIN HFA) 90 mcg/actuation inhaler Inhale 2 Puffs as instructed. (Patient not taking: Reported on 02/23/2023) No current facility-administered medications for this visit. Labs Latest Ref Rng & Units 10/27/2020 10/28/2020 11/16/2020 11/01/2021 CBC WBC 3.70 - 11.00 k/uL 9.93 8.88 8.42 7.58 Hemoglobin 13.0 - 17.0 g/dL 10.8 10.1 11.6 15.3 Hematocrit 39.0 - 51.0 % 32.3 30.7 37.7 44.3 Platelet Count 150 - 400 k/uL 173 154 508 291 Abs Neut (ANC) 1.45 - 7.50 k/uL 5.54 Abs Lymph 1.00 - 4.00 k/uL 2.14 Latest Ref Rng & Units 10/26/2020 10/27/2020 10/28/2020 11/01/2021 CMP Sodium 136 - 144 mmol/L 135 134 135 139 Potassium 3.7 - 5.1 mmol/L 4.8 4.5 4.2 4.5 Chloride 97 - 105 mmol/L 102 98 97 104 CO2 22 - 30 mmol/L 22 27 27 24 Glucose 74 - 99 mg/dL 100 138 118 119 BUN 9 - 24 mg/dL 19 17 15 20 Creatinine 0.73 - 1.22 mg/dL 1.07 1.09 0.99 1.15 Calcium 8.5 - 10.2 mg/dL 8.6 8.8 8.7 10.1 Latest Ref Rng & Units 08/09/2023 RF and CCP Rheumatoid Factor <16 IU/mL 14 Latest Ref Rng & Units 10/24/2020 10/25/2020 10/26/2020 08/09/2023 Antibodies CHANDANA Negative Positive CHANDANA Titer 1:160 CHANDANA Pattern Centromere DNA Antibody <=200 IU/mL 49 Anti-Sm <1.0 AI <0.2 Sm Antibody Negative Negative Ribosomal STUDIO MODEL Ab <1.0 AI <0.2 Ribosomal STUDIO MODEL Qualitative Negative Negative Chromatin Ab <1.0 AI <0.2 Chromatin Ab Qual Negative Negative SSA Antibody Qual Negative Negative Anti-SSA <1.0 AI <0.2 Anti-SSB <1.0 AI <0.2 STUDIO MODEL Antibody QUAL Negative Negative Scleroderma Ab Qual Negative Negative Scl-70 Abs, EIA <1.0 AI <0.2 Centromere Ab <1.0 AI 1.6 CENTROMERE AB QUAL Negative Positive GUERLINE-1 ANTIBODY, IGG <1.0 AI <0.2 GUERLINE 1 ANTIBODY QUAL Negative Negative PT Sec 9.7 - 13.0 sec 11.6 10.9 PT INR 0.9 - 1.3 1.1 1.0 APTT 23.0 - 32.4 sec 49.7 27.8 Latest Ref Rng & Units 10/22/2020 Urinalysis Protein, Urine Negative Negative RBC, Urine 0-3 /HPF 0-3 /HPF Imaging Last XR Hand/Finger - Impression Only No resulted procedures found. Last MRI Hand - Impression Only No resulted procedures found. Last XR Chest - Impression Only XR CHEST 2V FRONTAL/LAT Exam End: 11/22/2020 1:44 PM (Final result) Impression: IMPRESSION: No acute radiographic abnormality. ... Last XR Cervical Spine - Impression Only No resulted procedures found. Health Maintenance Current Immunizations Reviewed on 11/04/2023 No immunizations on file. Physical Exam VITAL SIGNS: BP 147/92 Pulse 71 Temp (Src) 97.4 (Temporal) Wt 201 lb 11.5 oz (91.5kg) GENERAL APPEARANCE: Well groomed. In no distress. SKIN: No rash, thickening, nodules, calcifications, discoloration. EYES: PERRL, EOMI HENT: Normal external examination of the ears and nose, lips, oropharynx and tongue. No oropharyngeal lesions, exudate, or sores. NECK: No mass or asymmetry, . RESPIRATORY: Normal respiratory effort. Clear to auscultation, no wheeze. CARDIOVASCULAR: regular, normal rate, normal heart sounds, no murmur or rub ABDOMEN: BS normal. No bruits, NEUROLOGIC: Alert and oriented x 3. Motor exam: Normal muscle strength grossly. Normal bulk and tone. MUSCULOSKELETAL EXAMINATION: Soft tissue tender points: Upper extremities: Shoulders: Full ROM in all directions, no tenderness to palpation. Positive empty can test right shoulder Elbows: Full ROM in flexion and extension. No swelling or effusion. No tenderness to palpation to the joint line, olecranon, medial or lateral epicondyles. Wrists: Full ROM in all richardson. No swelling or synovitis. No tenderness to palpation Hands: Full ROM in flexion and extension. No swelling or synovitis along the MCPs, PIPs, and DIPs. No tenderness along the MCPs, PIPs, and DIPs. Lower extremities: Knees: No swelling or effusion. No tenderness to palpation. Ankles: Full ROM in all richardson. No swelling or effusion. Tenderness to palpation along right Achilles tendon insertion site, tenderness along bilateral ankle joint line Feet: Full ROM in toe flexion/extension. No effusion. No tenderness to palpation. Diagnoses: (M54.50, G89.29) Chronic bilateral low back pain without sciatica (primary encounter diagnosis) (R76.8) CHANDANA positive (M25.561, M25.562, G89.29) Chronic pain of both knees (M17.0) Primary osteoarthritis of both knees Impression and Plan Polyarthralgia with chronic back pain Patient with multiple joint pain including mid back, low back, knees, hands, elbows, ankles, feet for many years which is worse in the evening and worse with activities however reports stiffness for hours in the morning and has noted swelling along MCPs and knees Never had arthrocentesis Reportedly with history of ulcerative colitis based on biopsy, never treated, continues to have diarrhea sometimes but nonbloody No history of uveitis/iritis, dactylitis No synovitis or joint effusion on exam today, has right Achillis enthesial site tenderness Noted radiograph thoracic spine in the past with bony bridging Based on his symptoms, his pain sounds mostly mechanical, likely related to osteoarthritis however due to prolonged morning stiffness, history of joint swelling and reported history of ulcerative colitis, will rule out spondyloarthritis Obtain radiograph bilateral hands, feet, cervical/thoracic/lumbar spine, SI joint Obtain sed rate, CRP, CBC, CMP Advised follow-up with gastroenterology for repeat colonoscopy Advised to let me know if he has recurrence of knee swelling so he can be evaluated for arthrocentesis 2. Positive CHANDANA Noted mildly elevated CHANDANA with minimal anticentromere antibody, other anti-MOHINI and dsDNA is negative He reports Whitish finger with cold but no triphasic color change No evidence of sclerodactyly or skin thickening Do not suspect scleroderma at this time, will repeat anti-MOHINI 3. Difficulty balancing, memory issues Obtain HbA1c, vitamin B12, TSH Advised neurology evaluation 4. Healthcare maintenance/Malignancy screening Defer to PCP Orders this visit: Office Visit on 11/04/23 XR LUMBAR GENERAL 3V AP/LAT/L5-S1 XR SACROILIAC JOINTS 2V AP PELVIS/FERGUESON XR FOOT GENERAL 3V AP/LAT/OBL BILATERAL XR HAND GENERAL 3V PA/LAT/OBL BILATERAL XR CERV OTHER 4V AP/LAT/OBL XR THORACIC LIMITED 2V AP/LAT HEMOGLOBIN A1C VITAMIN B12 COMPLETE BLOOD COUNT AND DIFFERENTIAL COMPREHENSIVE METABOLIC PANEL SEDIMENTATION RATE, WESTERGREN C-REACTIVE PROTEIN ANTI MOHINI ID THYROID STIMULATING HORMONE CONSULT TO RHEUM/IMMUN DISEASE Return in about 18 days (around 11/22/2023) for virtual. I spent a total of 60 minutes on the date of the service which included preparing to see the patient, [id number] patient care, completing clinical documentation, obtaining and/or reviewing separately obtained history, performing a medically appropriate examination, counseling and educating the pat ient/family/caregiver, and ordering medications, tests, or procedures. This note was partially generated with the assistance of [employer] voice recognition software. An attempt was made to correct any dictation errors however there may be some incorrect words, spellings, and punctuation. Ciera Palm MD [facility] Rheumatology Associate Staff [facility] Test Riderhospital admissions officer [facility] documented in this encounterC[facility] Clinic [facility]09-12-2024 NoteHNO ID: [id number] Author: CIERA PALM MD Service: ? Author Type: Physician Type: Progress Notes Filed: 11/04/2023 14:23 Note Text: Rheumatology Outpatient Clinic Date of Service: 11/04/2023 Patient: Hayden Pendleton Medical Record: [id number] Primary Care Physician: Quang Hanson MD Referring Provider: Ramirez Thomas [address] [facility] [address] Last Rheumatology visit: None at [facility] Chief complaint: Joint Pain and Positive CHANDANA Consultation requested by Ramirez Pelayo for an opinion regarding positive CHANDANA, osteoarthritis. My final recommendations will be communicated back to the requesting physician by way of shared Medical record or letter to requesting physician via US mail. History of Present Illness Hayden Pendleton is a 58 year old White male with medical history of CAD s/p CABG, hypertension, depression, hyperlipidemia, right hip surgery, right scapula surgery, presents on 11/04/2023 for an in-person visit for evaluation of Joint Pain and Positive CHANDANA. Hayden is RF negative - 14 (08/09/2023). His most recent CHANDANA was positive (08/09/2023). History of present illness Seen in Ortho clinic 07/2023 for bilateral knee pain which is going on for 10 to 15 years, Found to have positive CHANDANA and referred to rheumatology. 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 Also reports having vertigo on and off, mostly positional, has gotten better sometimes with Hansel's maneuver, has seen ENT locally. Also reports of balance and memory issues, has not seen neurology Previous workups 07/2023 Rheumatoid factor negative CHANDANA positive, 1: 160 Anticentromere antibody 1.6, Other anti-MOHINI, dsDNA negative 10/2021 CBC unremarkable BMP unremarkable Radiograph bilateral knees 07/2023-Osteopenia. Tiny marginal osteophytes of both knees. No significant joint space narrowing. Distal quadriceps tendon enthesophytes bilaterally. No significant joint effusion. Surgical clips medial to the right knee. No acute fracture or dislocation. There are no bony erosions. Chest radiograph 11/2020-unremarkable Radiograph thoracic spine 06/2013-Minimal bony bridging is seen at several levels in the lower thoracic spine. No obvious bony destruction. Patient-Entered Data PAIN EVALUATION 11/03/2023 1908 11/04/2023 0941 Pain Level: 8 5 Pain Location: Other: See Comment -- all over Description: Aching;Burning;Numbness;Pressure;Radiating;Sharp;Sore;Spasm;Stabbing;Stiffness;T enderness;Throbbing;Tightness;Tingling -- Duration Amount of Time: 24 -- Duration Units: Months -- Frequency: Continuous Continuous Intervention/Comfort measure: Medication;Relaxation -- Comments: All over body -- PROMIS Assessments 11/03/2023 PROMIS Assessments Physical Health Percentile 0 Mental Health Percentile 0 Pain Score 2 Pain Interference Percentile 0 Fatigue Percentile 0 Physical Function Percentile 14 RAPID 3 Morales Activities of Daily Living 11/03/2023 7:18 PM Dress self? With SOME difficulty Get in and out of bed? With SOME difficulty Walk outdoors? With SOME difficulty Wash and dry body? With SOME difficulty Get in and out of car? With SOME difficulty RAPID 3 Disease Activity Weighed Score Levels: 0 - 1: Near Remission 1.3 - 2.0: Low Severity 2.3 - 4.0: Moderate Severity 4.3 - 10.0: High Severity 11/03/2023 RAPID-3 Weighed Score RAPID 3 Weighed Score 7.11 (High severity ) Review of Systems Review of Systems CONSTITUTION: Positive for: Recent weight change Negative for: Fever HEENT: Positive for: Trouble swallowing and Dry mouth Negative for: Nosebleeds and Mouth sores RESPIRATORY: Positive for: Cough and Shortness of breath Negative for: Pain with breathing and Coughing up blood GASTROINTESTINAL: Positive for: Diarrhea, Heartburn and Abdominal pain Negative for: Melena MUSCULOSKELETAL: Positive for: Arthralgias, Myalgias, Muscle weakness, Joint swelling and Morning Joint Stiffness NEUROLOGICAL: Positive for: Numbness and Memory loss Negative for: Headaches SKIN: Negative for: Rash, Skin changes, Hair loss and Nail changes EYES: Positive for: Eye pain and Visual disturbance Negative for: Eye redness and Eye dryness CARDIOVASCULAR: Negative for: Chest pain and Leg swelling GENITOURINARY: Negative for: Dysuria (more content not included)...[facility]09-01-2024 Miscellaneous Notes* Telephone Encounter - Maira Pope - 01/07/2024 7:27 AM EST Scheduled patient with Dr. Chavez for 06-06-24 at 3 pm in [place]. Sent [employer] message and letter to home address. Thanks Maira Pope * Telephone Encounter - Celia Smallwood LPN - 01/07/2024 7:13 AM EST Last seen 02/23/2023. Please call patient with annual appointment. Thank you! Celia Smallwood LPN documented in [facility] encounterC[facility] Telephone encounter Note * Telephone Encounter - Magy Aviles MA - 08/11/2023 8:54 AM EDT Please sign consult for Entry Level Financial Analyst. [facility]06-19-2024 Miscellaneous Notes* Telephone Encounter - Magy Aviles MA - 08/11/2023 8:54 AM EDT Please sign consult for Entry Level Financial Analyst. documented in this encounterCleveland Clinic [facility]06-17-2024 NoteHNO ID: [id number] Author: RAMIREZ THOMAS MD Service: ? Author Type: Physician Type: Progress Notes Filed: 08/16/2023 12:32 Note Text: Ramirez Thomas MD Department of Orthopaedics Orthopaedics [address] [facility] [address] Dept: [phone] Dept August 09, 2023 CHIEF COMPLAINT: New and Pain of the Left Knee and New and Pain of the Right Knee HPI Patient here today with his significant other for bilateral knee pain x 10-15 years. 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 Denies any injury. New x-ray today at [facility]. ASSESSMENT: M25.561, M25.562, G89.29 Chronic pain of both knees (primary encounter diagnosis) M17.0 Primary osteoarthritis of both knees PLAN: Overall, his plain films are not too bad and his clinical exam does not show any immediate inflammatory signs. My recommendation is just simply multimodality treatment for some knee pain which will start with some strengthening, switch up an oral anti-inflammatory and we may consider cortisone injections again though he did say in his history he has had those without any benefit at all in the past. We may have to consider more advanced imaging as well as his plain films are suggestive of only some potentially mild arthritic changes. FOLLOW UP INSTRUCTIONS: As above Mr. Hayden Pendleton was advised as to contrast therapies and/or to take analgesics/anti-inflammatories as needed and all contraindications were reviewed. OBJECTIVE: Mr. Hayden Pendleton is a pleasant 58 year old in no apparent distress. Gen:There were no vitals taken for this visit. nl development, non obese, no deformities ENT: Normocephalic, normal hearing, moist mucosa CV: Pulses:DP/PT= 2+ and symmetric, capillary refill < 2 secs, no peripheral edema/varicosities Skin: no rash, bruising or lesions. Good turgor. Psych: cooperative and appropriate, alert and oriented x 3, good mood and affect. Musculoskeletal: Patient walks with mild antalgia, normal station. Hip motion without pain. Bilateral knee without effusion. Patella tracks normally. There is no patellar crepitance. No pain along the medial or lateral facets. Range of motion 0-130 degrees bilaterally. Mild medial, without lateral joint line pain on palpation. Ligamentous exam stable on varus and valgus stress testing at 0 and 30 degrees. Jennifer's examination is negative. Posterior drawer is negative. Negative McMurrays, without palpable click. Extremity is warm and well perfused. Sensation is grossly intact to light touch, subjectively. IMAGING: Impression IMPRESSION: Minimal degenerative change. Machine Coremaker: PSCDavid Transcribe Date/Time: Aug 13 2023 7:56A Dictated by : JACOBO RIZO MD This examination was interpreted and the report reviewed and electronically signed by: JACOBO RIZO MD on Aug 13 2023 7:57AM EST Results-Findings * * *Final Report* * * DATE OF EXAM: Aug 09 2023 8:46AM [id number] - XR KNEE 4V AP/PA/LAT/MERCH ANDREEA / PROCEDURE REASON: multiple diagnoses * * * * Physician Interpretation * * * * EXAMINATION: XR KNEE 4V AP/PA/LAT/MERCH ANDREEA HISTORY: PT STATES HISTORY OF BILAT KNEE PAIN Pain in both knees, unspecified chronicity Pain in both knees, unspecified chronicity . TECHNIQUE: XR KNEE 4V AP/PA/LAT/MERCH ANDREEA Laterality: BILATERAL Number of different views (projections): 4 M: XB_1 COMPARISON: RESULT: Osteopenia. Tiny marginal osteophytes of both knees. No significant joint space narrowing. Distal quadriceps tendon enthesophytes bilaterally. No significant joint effusion. Surgical clips medial to the right knee. No acute fracture or dislocation. There are no bony erosions. Supporting Subjective Information Below: Past Medical History: PAST MEDICAL HISTORY Diagnosis Date CAD (coronary artery disease) Dyslipidemia HTN (hypertension) Hx of CABG Low back pain Rheumatoid arthritis (HCC) Past Surgical History: PAST SURGICAL HISTORY Procedure Laterality Date CABG (4) VEIN GRAFTS AND ARTERIAL GRAFT(S) 10/25/2020 HIP SURGERY HX Right SCAPULA Right Family History: FAMILY HISTORY Problem Relation Age of Onset Heart Attack Mother Heart Attack Sister Social History: Social History Tobacco Use Smoking status: Every Day Packs/day: .5 Types: Cigarettes Smokeless tobacco: Never Vaping Use Vaping Use: Never used Substance Use Topics Alcohol use: Not Currently Comment: occ Drug use: Yes Frequency: 7.0 times per week Types: Marijuana Medications: Current Outpatient Medications Medication Sig isosorbide mononitrate ER (IMDUR) 30 mg 24 hr tablet Take 1 tablet by mouth once daily. rosuvastatin (CRESTOR) 20 mg tablet Take 1 tablet by mouth daily at bedtime. cholecalciferol, vitamin D3, (VITAMIN D3 ORAL) Take by mouth once daily. metoprolol tartrate, short acting, (LOPRESSOR) 25 mg tablet Take 1 ta (more content not included)...[facility]06-17-[facility] History of Present illness Narrative* Ramirez Thomas MD - 08/09/2023 8:54 AM EDT Ramirez Thomas MD Department of Orthopaedics Orthopaed[facility] [address] [facility] [address] Dept: [phone] Dept August 09, 2023 CHIEF COMPLAINT: New and Pain of the Left Knee and New and Pain of the Right Knee HPI Patient here today with his significant other for bilateral knee pain x 10- 15 years. 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 Denies any injury. New x-ray today at [facility]. ASSESSMENT: M25.561, M25.562, G89.29 Chronic pain of both knees (primary encounter diagnosis) M17.0 Primary osteoarthritis of both knees PLAN: Overall, his plain films are not too bad and his clinical exam does not show any immediate inflammatory signs. My recommendation is just simply multimodality treatment for some knee pain which will start with some strengthening, switch up an oral anti-inflammatory and we may consider cortisone injections again though he did say in his history he has had those without any benefit at all in the past. We may have to consider more advanced imaging as well as his plain films are suggestive of only some potentially mild arthritic changes. FOLLOW UP INSTRUCTIONS: As above Mr. Hayden Pendleton was advised as to contrast therapies and/or to take analgesics/anti-inflammatoriesas needed and all contraindications were reviewed. OBJECTIVE: Mr. Hayden Pendleton is a pleasant 58 year old in no apparent distress. Gen:There were no vitals taken for this visit. nl development, non obese, no deformities ENT: Normocephalic, normal hearing, moist mucosa CV: Pulses:DP/PT= 2+ and symmetric, capillary refill < 2 secs, no peripheral edema/varicosities Skin: no rash, bruising or lesions. Good turgor. Psych: cooperative and appropriate, alert and oriented x 3, good mood and affect. Musculoskeletal: Patient walks with mild antalgia, normal station. Hip motion without pain. Bilateral knee without effusion. Patella tracks normally. There is no patellar crepitance. No pain along the medial or lateral facets. Range of motion 0-130 degrees bilaterally. Mild medial, without lateral joint line pain on palpation. Ligamentous exam stable on varus and valgus stress testing at 0 and 30 degrees. Jennifer's examination is negative. Posterior drawer is negative. Negative McMurrays, without palpable click. Extremity is warm and well perfused. Sensation is grossly intact to light touch, subjectively. IMAGING: Impression IMPRESSION: Minimal degenerative change. Machine Coremaker: PSCB Transcribe Date/Time: Aug 13 2023 7:56A Dictated by : JACOBO RIZO MD This examination was interpreted and the report reviewed and electronically signed by: JACOBO RIZO MD on Aug 13 2023 7:57AM EST Results-Findings * * *Final Report* * * DATE OF EXAM: Aug 09 2023 8:46AM [id number] - XR KNEE 4V AP/PA/LAT/MERCH ANDREEA / PROCEDURE REASON: multiple diagnoses * * * * Physician Interpretation * * * * EXAMINATION: XR KNEE 4V AP/PA/LAT/MERCH ANDREEA HISTORY: PT STATES HISTORY OF BILAT KNEE PAIN Pain in both knees, unspecified chronicity Pain in both knees, unspecified chronicity . TECHNIQUE: XR KNEE 4V AP/PA/LAT/MERCH ANDREEA Laterality: BILATERAL Number of different views (projections): 4 M: XB_1 COMPARISON: RESULT: Osteopenia. Tiny marginal osteophytes of both knees. No significant joint space narrowing. Distal quadriceps tendon enthesophytes bilaterally. No significant joint effusion. Surgical clips medial to the right knee. No acute fracture or dislocation. There are no bony erosions. Supporting Subjective Information Below: Past Medical History: PAST MEDICAL HISTORY Diagnosis Date CAD (coronary artery disease) Dyslipidemia HTN (hypertension) Hx of CABG Low back pain Rheumatoid arthritis (HCC) Past Surgical History: PAST SURGICAL HISTORY Procedure Laterality Date CABG (4) VEIN GRAFTS & ARTERIAL GRAFT(S) 10/25/2020 HIP SURGERY HX Right SCAPULA Right Family History: FAMILY HISTORY Problem Relation Age of Onset Heart Attack Mother Heart Attack Sister Social History: Social History Tobacco Use Smoking status: Every Day Packs/day: .5 Types: Cigarettes Smokeless tobacco: Never Vaping Use Vaping Use: Never used Substance Use Topics Alcohol use: Not Currently Comment: occ Drug use: Yes Frequency: 7.0 times per week Types: Marijuana Medications: Current Outpatient Medications Medication Sig isosorbide mononitrate ER (IMDUR) 30 mg 24 hr tablet Take 1 tablet by mouth once daily. rosuvastatin (CRESTOR) 20 mg tablet Take 1 tablet by mouth daily at bedtime. cholecalciferol, vitamin D3, (VITAMIN D3 ORAL) Take by mouth once daily. metoprolol tartrate, short acting, (LOPRESSOR) 25 mg tablet Take 1 tablet by mouth two times a day. omeprazole (PRILOSEC) 40 mg capsule Take 40 mg by mouth as needed. aspirin 81 mg chewable tablet Take 1 tablet by mouth once daily. acetaminophen (TYLENOL) 500 mg tablet Take 2 tablets by mouth every 6 hours as needed for pain. melatonin 3 mg tablet Take 1 tablet by mouth at bedtime as needed (insomnia). ezetimibe (ZETIA) 10 mg tablet Take 1 tablet by mouth once daily. (Patient not taking: Reported on 02/23/2023) nabumetone (RELAFEN) 500 mg tablet Take by mouth. (Patient not taking: Reported on 01/15/2021) pantoprazole DR (PROTONIX) 20 mg tablet Take 20 mg by mouth once daily. (Patient not taking: Reported on 09/03/2021) nicotine (NICODERM) 14 mg/24 hr Apply 1 Patch as directed once daily. (Patient not taking: Reportedon 04/23/2021 ) citalopram (CELEXA) 40 mg tablet Take 40 mg by mouth once daily. (Patient not taking: Reported on 02/23/2023) albuterol HFA (PROVENTIL HFA, VENTOLIN HFA) 90 mcg/actuation inhaler Inhale 2 Puffs as instructed. (Patient not taking: Reported on 02/23/2023) No current facility-administered medications for this visit. Allergies: Oxycotin [Oxycodone] and Prednisone ROS: General (negative for fatigue, malaise, weight loss/gain) HEENT (negative for headache, earache, recent vision changes, sinus pain, sore throat) Respiratory (no recent shortness of breath, hemoptysis) CV (negative for chest tightness, palpitations) Musculoskeletal (see HPI) Psych (no depression, anxiety) Ramirez Thomas MD documented in this encounterC[facility]06-17-2024 History of Present illness Narrative* Nick Dudley RT(R) - 08/09/2023 8:00 AM EDT Radiology Service Progress Note PATIENT NAME: Hayden Pendleton DATE OF SERVICE: August 09, 2023 TIME: 1:42 PM PATIENT IDENTITY VERIFICATION COMPLETED USING TWO (2) IDENTIFIERS: Name and Date of confirmedby patient verbally. FALL SCREENING: Has the patient had 2 falls in the last year or 1 fall with injury or currently using an Ambulatory Assistive Device (Walker, Cane, Wheelchair, Crutches, etc.)? No PATIENT GENDER DATA: Male PATIENT RELEVANT IMPLANT DATA REVIEWED: Not Applicable PATIENT PRESENTS WITH AN IMPLANTABLE OR ATTACHED JOB DEVELOPER: No RADIOLOGY DEPARTMENT: General X-ray: Exam(s) Completed: Lower Extremity X- Ray(s): Knee, AP / Lat / Tunne / Merchant Bilateral and Wt. Bearing PERIPHERAL IV DATA: Not applicable SIGNED BY: RT Fabián(R) August 09, 2023 1:42 PM documented in this encounterCleveland Clinic [facility]06-17-2024 NoteHNO ID: [id number] Author: NICK DUDLEY RT(R) Service: ? Author Type: Technologist Type: Progress Notes Filed: 08/09/2023 13:42 Note Text: Radiology Service Progress Note PATIENT NAME: Hayden Pendleton DATE OF SERVICE: August 09, 2023 TIME: 1:42 PM PATIENT IDENTITY VERIFICATION COMPLETED USING TWO (2) IDENTIFIERS: Name and Date of confirmed by patient verbally. FALL SCREENING: Has the patient had 2 falls in the last year or 1 fall with injury or currently using an Ambulatory Assistive Device (Walker, Cane, Wheelchair, Crutches, etc.)? No PATIENT GENDER DATA: Male PATIENT RELEVANT IMPLANT DATA REVIEWED: Not Applicable PATIENT PRESENTS WITH AN IMPLANTABLE OR ATTACHED JOB DEVELOPER: No RADIOLOGY DEPARTMENT: General X-ray: Exam(s) Completed: Lower Extremity X-Ray(s): Knee, AP / Lat / Tunne / Merchant Bilateral and Wt. Bearing PERIPHERAL IV DATA: Not applicable SIGNED BY: Nick Dudley RT(R) August 09, 2023 1:42 [facility]05-28-2024 Telephone encounter Note* Telephone Encounter - Harrison Silveira LPN - 07/20/2023 3:04 PM EDT Patient's request for medication is as follows: Requested Prescriptions Pending Prescriptions Disp Refills isosorbide mononitrate ER (IMDUR) 30 mg 24 hr tablet 90 tablet 2 Sig: Take 1 tablet by mouth once daily. Last seen 02/23/2023. Follow up scheduled for 02/2024. Prescription(s) as above. Please process accordingly. Harrison Silveira LPN [facility]05-28-20[facility] Miscellaneous Notes* Telephone Encounter - Harrison Grimm LPN - 07/20/2023 3:04 PM EDT Patient's request for medication is as follows: Requested Prescriptions Pending Prescriptions Disp Refills isosorbide mononitrate ER (IMDUR) 30 mg 24 hr tablet 90 tablet 2 Sig: Take 1 tablet by mouth once daily. Last seen 02/23/2023. Follow up scheduled for 02/2024. Prescription(s) as above. Please process accordingly. Harrison Silveira LPN documented in this encounterC[facility]11-07-2023 Miscellaneous Notes* Telephone Encounter - Celia Smallwood LPN - 12/29/2022 7:39 AM EST Patient's request for medication is as follows: Requested Prescriptions Pending Prescriptions Disp Refills metoprolol tartrate, short acting, (LOPRESSOR) 25 mg tablet [Pharmacy Med Name: Metoprolol Bufnkmpt68 MG Oral Tablet] 60 tablet 1 Sig: Take 1 tablet by mouth twice daily Last seen 10/15/2021. Over due follow up scheduled for 02/23/2023. Prescription(s) as above. Please process accordingly. Celia Smallwood LPN documented in this encounterC[facility]09-18-2023 Miscellaneous Notes* Telephone Encounter - Michelle March - 11/09/2022 1:50 PM EDT I called to schedule and overdue follow up with Dr. Chavez.M Pt. scheduled for 02/23/2023 at 11:40 in [facility].Please update Pt. insurance. Michelle March November 09, 2022 1:53 PM * Telephone Encounter - Harrison Silveira LPN - 11/09/2022 11:11 AM EDT Last seen 10/15/2021. Clerical to call pt to schedule pt. Harrison Silveira LPN documented in this encounterC[facility]09-18-2023 Miscellaneous Notes* Telephone Encounter - Harrison Silveira LPN - 11/09/2022 11:05 AM EDT Patient's request for medication is as follows: Requested Prescriptions Pending Prescriptions Disp Refills metoprolol tartrate, short acting, (LOPRESSOR) 25 mg tablet 90 tablet 0 Sig: Take 1 tablet by mouth twice daily. Last seen 10/15/2021. Message sent to Clerical to schedule pt. Prescription(s) as above. Please process accordingly. Harrison Silveira LPN documented in this encounterC[facility] Clinic [facility] Hospital08-09-2023 Miscellaneous Notes* Telephone Encounter - Hayden Lindqiust RN - 09/30/2022 10:15 AM EDT Pended refill for Imdur 30 mg and lopressor 25 mg CECILIA 10/15/22 [facility] 11/05/21 documented in this encounterCleveland [facility]05-12-2023 Hospital Discharge instructions Additional Instructions Shower, warm bath and massage for your muscle spasm around your left shoulder blade. Skelaxin the muscle relaxant 1 pill 3 times a day for 7 days. Should start feeling better in 3 to 4 days. Limited Percocet for pain. Follow-up with your doctor.[facility] Work Phone: [phone]) 771-134804-07-2023 Miscellaneous Notes* Telephone Encounter - Mohini Alexander LPN - 05/29/2022 10:38 AM EDT Patient's request for medication is as follows: Requested Prescriptions Pending Prescriptions Disp Refills metoprolol tartrate, short acting, (LOPRESSOR) 25 mg tablet [Pharmacy Med Name: Metoprolol Qecrhofs48 MG Oral Tablet] 90 tablet 0 Sig: Take 1 tablet by mouth twice daily Last seen 04/23/21.clerical notified for follow -up appt. Prescription(s) as above. Please process accordingly. Mohini Alexander LPN documented in this encounterCleveland Clinic [facility] Hospital04-07-2023 Miscellaneous Notes* Telephone Encounter - Hayden Lindquist RN - 05/29/2022 9:35 AM EDT Refill is already pending for Lopressor [address] Chavez * Telephone Encounter - Estefani Butt - 05/29/2022 9:01 AM EDT Hayden called and he is totally out of his metoprolol tartrate, he has been out for 2 days. He asked if Dr. Chavez could send in a prescription refill to same pharmacy [facility]. Could someone assist him? Thank you, Estefani Butt documented in this encounterCleveland Clinic [facility]10-17-2022 Miscellaneous Notes* Telephone Encounter - Celia Smallwood LPN - 12/08/2021 10:38 AM EDT Patient's request for medication is as follows: Requested Prescriptions Pending Prescriptions Disp Refills isosorbide mononitrate ER (IMDUR) 30 mg 24 hr tablet [Pharmacy Med Name: Isosorbide Mononitrate ER 30 MG Oral Tablet Extended Release 24 Hour] 90 tablet 2 Sig: Take 1 tablet by mouth once daily Last seen 10/15/2021. Prescription(s) as above. Please process accordingly. Celia Smallwood LPN documented in this encounterCleveland Clinic [facility]09-21-2022 Miscellaneous Notes* Telephone Encounter - Birgit Anderson RN - 11/12/2021 4:52 PM EDT Letter faxed for cardiac appointment and cardiac catheterization date to [employer] [facility] [employer] for patient to be excused from work. Spoke with spouse and instructed her to have PCP complete the [facility] paperwork for his shortness of breath since cardiac workup is negative. Birgit Anderson RN * Telephone Encounter - Birgit Anderson RN - 11/12/2021 3:17 PM EDT Received [facility] paperwork from [facility] for Dr. Chavez. Spoke with spouse whostated patient needs an excuse for Hayden to be off work for his cardiac appointment and the cardiac catheterization he had completed. Letter needs to be faxed to [phone]. Birgit Anderson RN documented in this encounterCleveland Clinic [facility]09-14-2022 Procedure note* Anette Garcia MD - 11/05/2021 11:32 AM EDT LEFT HEART CATHETERIZATION PROCEDURE NOTE Surgery/Procedure Date: 11/05/2021 Referring Physician: Clinical History: This is a 56 year old male with CAD and CABG ( WELLS TO LAD,SVG TO OM, SVG TO PDA,SVG TO D1) Consent: Informed consent was obtained after the risks, benefits, and alternatives to and of this procedure were discussed in detail with the patient. Procedure in Detail: The patient was brought to the cardiac catheterization laboratory, prepped anddraped in the usual sterile fashion. Anxiolysis was achieved with intravenous and intravenous benadryl. Local anesthesia was achieved over the wrist with 1% lidocaine. A pre-flushed 6-German sheath was inserted into the femoral artery via the Seldinger technique without complications. Retrograde percutaneous diagnostic coronary angiography and left ventriculography were performed using a Loree left 4 catheter, a 3-D RC catheter, and an angled pigtail catheter. There were no complications of the procedure. Findings: Angiography: LEFT MAIN: Severe distal left main 90% . LEFT CIRCUMFLEX: Severe [place] disease. LEFT ANTERIOR DESCENDING: Moderate proximal disease. [...] 2021 TIME: 11:32 AM documented in this encounterCleveland Clinic [facility]09-14-2022 History and physical note * Anette Garcia MD - 11/05/2021 9:23 AM EDT UPDATED H&P PRE-CARDIAC CATHETERIZATION SERVICE DATE: 11/05/2021 SERVICE TIME: 9:23 PHYSICAL EXAM MUST BE COMPLETED ON ADMISSION The History and Physical (completed in the past 30 days) has been reviewed and the patient has beenexamined. The contents accurately reflect the patient's condition [...] 2021 TIME: 9:23 AM documented in this encounterCleveland [facility]09-12-2022 Miscellaneous Notes* Telephone Encounter - Peggy Sharma - 11/03/2021 2:51 PM EDT Spoke with . * Telephone Encounter - Peggy Sharma - 11/03/2021 2:51 PM EDT ----- Message from Felicitas Chavez MD sent at 11/02/2021 3:52 PM EDT ----- Please inform Hayden of normal blood tests. Thanks, Felicitas Chavez MD documented in this encounterCleveland Clinic [facility] Hospital09-01-2022 Miscellaneous Notes* Telephone Encounter - Felicitas Chavez MD - 10/23/2021 4:30 PM EDT As patient continues to have symptoms of [...] as it was not helping him much. Felicitas Chavez MD documented in this encounterCleveland Clinic [facility]08-24-2022 History of Present illness Narrative* Felicitas Chavez MD - 10/15/2021 1:29 PM EDT Chief Complaint: Patient presents with: F/U 1 [...] he had an exercise stress echo at [facility] and was referred here to see a cigar wrapper after that. I do not have any records from his PCPs office. 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 He underwent four-vessel CABG on 10/25/[address] Alonso. Postopcourse was uneventful. He has been enrolled in cardiac rehab at [facility]. I received notification from them that PVCs increase in frequency when he exerts himself during exercises so they hadto back down a bit. Patient says he [...] complaining of shortness of breath on exertion andcurrently is at NYHA class III. Patient's says [...] evaluation. He said he went to the [facility] ER on Wednesday. He said they did EKG and blood work and sent him home to follow-up with a cigar wrapper. 10/15/2021: Patient was started on Imdur at [...] is severely affected by the humidity he says.He says at home if he is in the cooler atmosphere under air conditioning he does not have the symptom as much but the moment he steps outside his shortness of breath gets worse. He recently saw a orchestrator who did a lung cancer screening CAT scan. Additionally he also had PFTs done recently andis due to see the orchestrator in follow-up next week. PAST MEDICAL HISTORY [...] mouth once daily. (Patient not taking: No sigreported) melatonin 3 mg tablet Take 1 tablet by mouth at bedtime as needed (insomnia). (Patient not taking: No sig reported) nicotine (NICODERM) 14 mg/24 hr Apply 1 Patch as directed once daily. (Patient not taking: Reportedon 04/23/2021 ) Current Facility-Administered Medications Medication Dose [...] Negative for: Weakness, Paralysis, Numbness, Tingling, Tremor, Nervousness,Depressed mood, Memory loss SKIN: Negative for: Rashes, Itching HEMATOLOGICAL/LYMPHATIC: Negative for: Easy bruising , Easy bleeding ENDOCRINE: Negative for: Heat or cold intolerance, Excessive sweating, Frequent urination, Frequentthirst I have confirmed and edited as necessary, [...] 142 bpm which is 85% maximum predicted heartrate. No EKG changes at peak stress. Did have frequent PVCs at peak exercise. Stress echo negative for ischemia with no wall motion abnormalities. Somewhat limited due to short axis post-rest images being unavailable. Heart catheterization 10/22/2020: Distal left main 90% focal disease. Proximal LAD 90% focal disease. D2 70%. Proximal circumflex 70%. OM2 99% moderate disease. RCA GANG RIDER. Good collaterals from LAD and septals filling [...] describes constant chest tightness on the left sideof the chest radiating to the right side. [...] He has a follow-up appointment with his orchestrator next week. In all likelihood his lung symptoms are secondary to pulmonary condition. If the orchestrator does not feel this to be the [...] of any other counseling during this visit. Felicitas Chavez MD documented in this encounterCleveland Clinic [facility]07-19-2022 Miscellaneous Notes* Telephone Encounter - Hayden Lindquist RN - 09/09/2021 11:29 AM EDT Called PT talked to his about Please inform Hayden that the stress test is normal. Please lethim know that I can order a limited echocardiogram even though the previous limited echo from 6 months back was normal as I do not have a good clear cardiac cause for his symptoms of shortness of breath. Thanks, Felicitas Chavez MD * Telephone Encounter - Hayden Lindquist RN - 09/09/2021 11:26 AM EDT ----- Message from Felicitas Chavez MD sent at 09/08/2021 3:56 PM EDT ----- Please inform Hayden that the stress test is normal. Please let him know that I can order a limited echocardiogram even though the previous limited echo from 6 months back was normal as I do not have a good clear cardiac cause for his symptoms of shortness of breath. Thanks, Felicitas Chavez MD documented in this encounterCleveland Clinic [facility] Hospital07-19-2022 Miscellaneous Notes* Telephone Encounter - Hayden Lindquist RN - 09/09/2021 9:45 AM EDT Called PT talked to the she is concerned he is having similar symptoms he had in 2020, and hadbypass surgery. He is having SOB chest pain he is just not feeling well after his stress test yesterday. PT [place] to work [place] able to talk to him. I told her if he is having symptoms SOB andchest pain he should go to the emergency department to be evaluated. I told her I will send the message to Dr Chavez and Dr Calhoun who is covering. * Telephone Encounter - Estefani Butt - 09/09/2021 9:08 AM EDT Hayden's Yaz called and said he is woozy, feels generally not himself, has had some shortness of breath going on which has been common for him but is feeling generally unwell and abnormal after his stress test yesterday. She asked if I would send a message to Dr. Chaevz's staff to follow up, can someone follow up with herabout symptoms and if they could be related or how to proceed? I did recommend they reach out to their primary care and if he does have access to a nurse biomedical electronics technician to be triaged, to seek out that service as well. He does not receive primary care through [facility] so I could not nurse triage him. Thank you, Estefani Butt documented in this encounterCleveland Clinic [facility] Hospital07-18-2022 NoteHNO ID: [id number] Author: Jacobo Pearson, [place] Service: Nuclear Medicine Author Type: Technologist Type: [...] has been calibrated to be traceable to [facility]. An eGFR <60 mL/min/1.73m2 for >3 months [...] POST EXAM PIV STATUS: Discontinued PROCEDURE TYPE: NV Stress: 12.5mCi Jp50h-Ekynmtl was administered IV for Rest Imaging at 13:41 by BRI Douglas. 32.7 mCi Jq75u-Gstcutw was administered IV for Stress Imaging at 14:28 by BRI Douglas PATIENT DISCHARGED TO: Ambulatory patient, left NV department area. A Diagnostic radioactive procedure has taken place, with no further precautions necessary other than routine body substance precautions. More information regarding radiation safety can be found using this link: [email or web address]%20Medicine%20Procedures.[email or web address] SIGNATURE: BRI Douglas PATIENT NAME: Hayden Pendleton DATE: September 08, 2021 TIME: 2:36 PM PAGER[facility]CONTACT [facility] [id number] NoteHNO ID: [id number] Author: BRI Douglas Service: Nuclear Medicine Author [...] STATUS: Discontinued PROCEDURE TYPE: NM Stress: 12.5mCi Du79m-Piuyqls was administered IV for Rest Imaging at 13:41 by BRI Douglas. 32.7 mCi Pp00x-Cudvyag was administered IV for Stress Imaging at 14:28 by BRI Douglas PATIENT DISCHARGED TO: Ambulatory patient, left NM department area. A Diagnostic radioactive procedure has taken place, with no further precautions necessary other than routine body substance precautions. More information regarding radiation safety can be found using this link: [email or web address] [email or web address]%20Medicine%20Procedures.[email or web address] SIGNATURE: BRI Douglas PATIENT NAME: Hayden Pendleton DATE: September 08, 2021 TIME: 2:38 PM PAGER/CONTACT #:[place] [id number] History of Present illness Narrative* BRI Douglas - 09/08/2021 1:30 PM EDT RADIOLOGY SERVICE PROGRESS NOTE SERVICE DATE: 09/08/2021 [...] STATUS: Discontinued PROCEDURE TYPE: NM Stress: 12.5mCi Cy88c-Ixhcclo was administered IV for Rest Imaging at 13:41 by BRI Douglas. 32.7 mCi Gp60c-Yepbiyu was administered IV for Stress Imaging at 14:28 by BRI Luis PATIENT DISCHARGED TO: Ambulatory patient, left NV department area. A Diagnostic radioactive procedure has taken place, with no further precautions necessary other than routine body substance precautions. More information regarding radiation safety can be found usingthis link: [email or web address]-% 20Diagnostic%20Nuclear%20Medicine%20Procedures.pdf SIGNATURE: BRI Douglas PATIENT NAME: Hayden Pendleton DATE: September 08, 2021 TIME: 2:38 PM PAGER/CONTACT #: * BRI Douglas - 09/08/2021 1:30 PM EDT RADIOLOGY SERVICE PROGRESS NOTE SERVICE DATE: 09/08/2021 [...] STATUS: Discontinued PROCEDURE TYPE: NM Stress: 12.5mCi Mu99i-Adzvhrl was administered IV for Rest Imaging at 13:41 by BRI Douglas. 32.7 mCi Np94w-Qbdizbi was administered IV for Stress Imaging at 14:28 by BRI Luis PATIENT DISCHARGED TO: Ambulatory patient, left NM department area. A Diagnostic radioactive procedure has taken place, with no further precautions necessary other than routine body substance precautions. More information regarding radiation safety can be found usingthis link: [email or web address]-% 20Diagnostic%20Nuclear%20Medicine%20Procedures.pdf SIGNATURE: BRI Douglas PATIENT NAME: Hayden Pendleton DATE: September 08, 2021 TIME: 2:36 PM PAGER/CONTACT #: documented in this encounterCleveland Clinic [facility] Hospital07-18-2022 Miscellaneous Notes* Result QuickNote - Felicitas Chavez MD - 09/08/2021 1:30 PM EDT Please inform Hayden that the stress test is normal. Please let him know that I can order a limited echocardiogram even though the previous limited echo from 6 months back was normal as I do not have a good clear cardiac cause for his symptoms of shortness of breath. Thanks, Felicitas Chavez MD documented in this encounterCleveland Clinic [facility] Hospital07-15-2022 Miscellaneous Notes* Telephone Encounter - Vani Perdomo RN - 09/05/2021 2:35 PM EDT Left message regarding reminder for stress test on Wednesday and given instructions documented in this encounterCleveland Clinic [facility] Hospital07-13-2022 History of Present illness Narrative* Felicitas Chavez MD - 09/03/2021 2:38 PM EDT Chief Complaint: Patient presents with: ER F/U: [...] he had an exercise stress echo at [facility] and was referred here to see a cigar wrapper after that. I do not have any records from his PCPs office. 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 He underwent four-vessel CABG on 10/25/[address] Alonso. Postopcourse was uneventful. He has been enrolled in cardiac rehab at [facility]. I received notification from them that PVCs increase in frequency when he exerts himself during exercises so they hadto back down a bit. Patient says he [...] complaining of shortness of breath on exertion andcurrently is at NYHA class III. Patient's says [...] evaluation. He said he went to the [facility] ER on Wednesday. He said they did EKG and blood work and sent him home to follow-up with a cigar wrapper. PAST MEDICAL HISTORY Diagnosis Date Dyslipidemia HTN [...] 1 tablet by mouth twice daily as needed.(Patient not taking: Reported on 01/15/2021) nabumetone (RELAFEN) [...] as directed once daily. (Patient not taking: Reportedon 04/23/2021 ) Current Facility-Administered Medications Medication Dose [...] Negative for: Weakness, Paralysis, Numbness, Tingling, Tremor, Nervousness,Depressed mood, Memory loss SKIN: Negative for: Rashes, Itching HEMATOLOGICAL/LYMPHATIC: Negative for: Easy bruising , Easy bleeding ENDOCRINE: Negative for: Heat or cold intolerance, Excessive sweating, Frequent urination, Frequentthirst I have confirmed and edited as necessary, [...] 142 bpm which is 85% maximum predicted heartrate. No EKG changes at peak stress. Did have frequent PVCs at peak exercise. Stress echo negative for ischemia with no wall motion abnormalities. Somewhat limited due to short axis post-rest images being unavailable. Heart catheterization 10/22/2020: Distal left main 90% focal disease. Proximal LAD 90% focal disease. D2 70%. Proximal circumflex 70%. OM2 99% moderate disease. RCA GANG RIDER. Good collaterals from LAD and septals filling PDA and RPL retrogradely. CABG 10/25/2020: WELLS to LAD, SVG to diagonal, OM1 and PDA of RCA ASSESSMENT/PLAN: 1. CAD s/p CABG Patient has been complaining of shortness of breath for the last month currently at NYHA class III.Also has been complaining of atypical type of [...] of any other counseling during this visit. Felicitas Chavez MD documented in this encounterCleveland Clinic [facility] Hospital07-08-2022 Miscellaneous Notes* Telephone Encounter - Melania Negron RN - 08/29/2021 2:45 PM EDT Message to , she will relay to the patient. * Telephone Encounter - Peggy Sharma - 08/29/2021 2:33 PM EDT Images from the original note were not included. MD Melania Olvera RN; [facility] Clinical Pool 4 minutes ago (2:27 PM) I agree with your recommendations about going to the emergency room so that further work-up and ischemic evaluation if needed can be performed. Felicitas Chavez MD * Telephone Encounter - Melania Negron RN - 08/29/2021 1:41 PM EDT Spoke to , read her the sx that were below, states the patient has been experiencing CP, SOB for days, has been going to work but comes home exhausted and SOB. states patient went to [facility] today that is outside of [facility], they [...] encourage patient to go to the ED. * Telephone Encounter - Ana Concepcion - 08/29/2021 1:04 PM EDT Patient and calling because he has been [...] patient and and advise. documented in this encounterCleveland Clinic [facility] Hospital03-30-2022 Miscellaneous Notes* Telephone Encounter - Celia Smallwood LPN - 05/21/2021 7:38 AM EDT Patient's request for medication is as follows: Pending Prescriptions Disp Refills ROSUVASTATIN 20 MG TABLET 90 tablet 3 Sig: TAKE 1 TABLET BY MOUTH EVERY DAY AT BEDTIME DOROTHY: Yes Last seen 04/23/2021. Prescription(s) as above. Please process accordingly. Celia Smallwood LPN documented in this encounterCleveland Clinic [facility] Hospital10-01-2021 History of Present illness Narrative* Snow De Jesus, RT(R) - 11/22/2020 1:30 PM EDT Radiology Service Progress Note PATIENT NAME: Hayden Pendleton DATE OF SERVICE: November 22, 2020 TIME: 1:35 PM PATIENT IDENTITY VERIFICATION COMPLETED USING TWO (2) IDENTIFIERS: Name and Date of confirmedby patient verbally. FALL SCREENING: Has the patient had 2 falls in the last year or 1 fall with injury or currently using an Ambulatory Assistive Device (Walker, Cane, Wheelchair, Crutches, etc.)? No PATIENT GENDER DATA: Male PATIENT RELEVANT IMPLANT DATA REVIEWED: Yes RADIOLOGY DEPARTMENT: General X-ray: Exam(s) Completed: Chest X-Ray PERIPHERAL IV DATA: Not applicable SIGNED BY: RT Adi(R) November 22, 2020 1:35 PM documented in this encounterMartin [facility] summary Author Dr. Kapadia [facility] July 03, 2022 12:46pm Note Date/Time July 03, 2022 11:18 am [facility] Medical Records Department [address] [place] [address] Emergency Department Summary 07/03/22 MR#: [id number] Acct: [id number] Name: HAYDEN PENDLETON Rep #:[id number] : 1965 [id number] From: Alex Kapadia MD PCP: Dr. Quang Hanson MD Status:R EG ER Location: ED HPI History of Present Illness Chief Complaint: Chest Pain Detail of Chief Complaint: Left posterior shoulder blade pain. 2 days. Constant. Informant: patient and spouse/S.O. Onset/Context/Timing Onset: Days Activity at onset: gradual Timing: Continuous Quality: Positive for Aching Current Severity: Mild Maximum Severity: Moderate Worsened By: Movement of Arm and Movement of Torso Relieved By: Nothing Associated Symptoms: Positive for Nausea and Dyspnea; Negative for Diaphoresis, Cough, Fever, Lightheadedness, Acid Reflux or Palpitations Narrative Narrative: 57-year-old male history of quadruple bypass in October 2020. States recentlydoes not have a lot of energy. He does physical work at his job and he believeshe pulled a muscle at his left shoulder blade. He says the pain radiates up to the top of his shoulder. Worse with movement of his arm. Said it began on Wednesday it got worse throughout the day and he called off yesterday. He really denies any chest pain. Says he has recently had some shortness of breathand mild nausea. No diaphoresis. Pain is not exertional. Prior Similar Symptoms: Yes Recent Illness/Hospitalization: No CVD Risk Factors: Positive for Hypertension and Smoking PE Risk Factors: Negative for Recent Travel/Surgery, Recent Immobilization, Prior DVT or PE, Cancer or OCP + Smoking + >/=35 TAD Risk Factors: Negative for Marfan's Syndrome or Hypertension [facility] Medical History Abnormal CT lung screening Anemia Anxiety and depression Arthritis Back pain Bloody stool BPH (benign prostatic hyperplasia) CAD (coronary artery disease) Chronic fatigue Chronic low back pain Colitis Difficulty balancing Difficulty balancing when standing Erectile dysfunction Fatigue Hay fever Hemorrhoids history of broken right hip History of stress test Hypersomnia Hypertension Knee pain Left kidney mass PRABHU (obstructive sleep apnea) Post-operative pain Shoulder pain Sleep apnea SOB (shortness of breath) Stomach ulcer Tobacco use disorder Vertigo Home Medications acetaminophen 500 mg tablet (Tylenol Extra Strength) 1,000 mg PO BID PRN 11/22/20 [History Last Taken Unknown] aspirin 81 mg tablet,delayed release (Adult Low Dose Aspirin) 162 mg PO DAILY 11/22/20 [History Last Taken Unknown] metoprolol tartrate 50 mg tablet 25 mg PO BID 11/22/20 [History Last Taken Unknown] rosuvastatin 20 mg tablet 20 mg PO QHS 11/22/20 [History Last Taken Unknown] isosorbide mononitrate 30 mg tablet,extended release 24 hr 30 mg PO DAILY 10/01/21 [History Last Taken Unknown] cyclobenzaprine 10 mg tablet 10 mg PO TID PRN PRN Muscle Spasm 07/03/22 [History Last Taken Unknown] metaxalone 800 mg tablet 800 mg PO TID 7 days #21 tabs 07/03/22 [Rx Last Taken Unknown] methylprednisolone 4 mg tablets in a dose pack See Rx Instructions .Route .COMPLEX 07/03/22 [History Last Taken Unknown] omeprazole magnesium 20 mg tablet,delayed release (Prilosec OTC) 20 mg PO DAILY 07/03/22 [History Last Taken Unknown] oxycodone-acetaminophen 5 mg-325 mg tablet (Percocet) 1 tab PO Q6H PRN pain 3 days #10 tabs 07/03/22 [Rx Last Taken Unknown] Allergy/AdvReac Type Severity Reaction Status Date / Time oxycodone [From OxyContin] Allergy Rash Verified 05/14/22 15:01 prednisone Allergy Flush, Verified 05/14/22 15:01 insomnia, irregular heartbeat, irritability Family History Other Arthritis CVA (cerebral vascular accident) Depression Hypertension Surgical History History of nasal surgery History of orthopedic surgery History of quadruple bypass History of repair of hip joint S/P CABG x 4 Social History Smoking Status: Current every day smoker tobacco type: cigarettes Tobacco: How many years used: 38 alcohol intake: current alcohol intake frequency: a few times a week substance use type: marijuana what type of physical activity do you participate in: none ROS ROS ED ROS Narrative Posterior back pain. Shortness of breath. Decreased energy. Review of Systems ROS Unobtainable: Denies due to encephalopathy Constitutional Constitutional ED: Denies chills or fever(s) Eyes Eyes: Reports none ENT ENT ED: Denies ear pain, rhinorrhea or sore throat Cardiovascular Cardiovascular: Reports as per HPI; Denies chest pain, palpitations or racing heartbeat Respiratory/Chest Respiratory/Chest: Reports dyspnea; Denies cough Gastrointestinal Gastrointestinal: Reports nausea; Denies abdominal pain, constipation, diarrhea,melena or vomiting Genitourinary Genitourinary ED: Denies dysuria or hematuria Musculoskeletal Musculoskeletal: Denies arthralgias Integumentary Denies abscess Neurologic Neurologic: Denies headache(s) Psychiatric Psychiatric: Denies anxiety Endocrine Endocrinology: Denies cold intolerance Hematologic/Lymphatic Hematologic/Lymphatic: Denies easy bleeding Allergic/Immunologic Allergic/Immunologic ED: Denies mouth swelling or tongue swelling EXAM Physical Exam Narrative Exam Narrative: 61-year-old male no acute distress vital signs stable afebrile. Pulse ox 100% on room air no hypoxia. Sitting upright in bed. at bedside. H EENT exam unremarkable. Neck nontender. No JVD. Lungs clear to auscultation bilaterally. Heart regular rhythm rate about 70 no murmur. Chest wall nontender. Abdomen soft nontender. Back he has reproducible musculoskeletal tenderness along his shoulder blade. It is consistent with skeletal pain. Moving all 4 extremities. Calves are nontender without edema. Radial pulses are equal and symmetrical. He is awake and alert with no focal motor deficits. Const Vital Signs: 07/03/22 10:44 07/03/22 10:57 Temperature 98.0 F Temperature Source Temporal Pulse Rate 70 Respiratory Rate 18 Blood Pressure 143/90 H Blood Pressure Mean 107 Pulse Ox 100 Oxygen Delivery Method Room Air Room Air Positive well nourished and well developed; Negative for cachectic, contracturesor unkempt General Appearance ED: well developed and NAD; Negative for unkempt, cachectic, contractures or pallor Nutritional Appearance: Negative for cachectic HEENT Reports moist mucous membranes normocephalic and atraumatic; Negative for trauma or tenderness Eyes PERRL and EOMs intact bilaterally General Eye ED: Negative for pale conjunctiva or scleral icterus Neck no lymphadenopathy, supple and no JVD General: Negative for tenderness Chest Wall inspection of chest normal and palpation of chest normal Chest: Negative for tenderness Resp normal respiratory effort and clear to auscultation bilaterally Effort and Inspection: Negative for respiratory distress Auscultation: Negative for rales, rhonchi or wheezes Cardio regular rate, regular rhythm, S1 normal heart sound, S2 normal heart sound and no murmurs Rate: Negative for bradycardia or tachycardic Rhythm: Negative for abnormal rhythm Peripheral Pulses: pulses 2+ throughout GI normal to inspection, nondistended, normoactive bowel sounds, soft to palpation,non-tender, non-distended and no masses Auscultation: Negative for hyperactive bowel sounds Palpation: Negative for splenomegaly or mass Back/Spine no CVA tenderness and no thoracic nor lumbar tenderness General Back: Negative for CVA tenderness Cervical Spine: Negative for cervical spine tenderness Extremity normal to inspection General Extremety ED: Negative for edema or pulses abnormal General Extremity: Negative for edema or pulses abnormal Neuro oriented x3 and CN's II-XII intact bilaterally Sensorium / Orientation: awake, alert, oriented to person, oriented to place andoriented to time; Negative for confused, lethargic or stuporous Motor Exam: strength 5/5 throughout Psych mental status grossly normal Appearance: Negative for unkempt Attitude: No agitated Mood & Affect: Negative for depressed, anxious or tearful Skin no rashes or lesions noted and no wounds General Skin Exam: Negative for jaundice or pallor Rashes: No rashes noted Trauma: Negative for abrasion or laceration Heart Score History: Slightly/Non-Suspicious ECG: Normal Age: >45 - <65 years Risk Factors: >/= 3 Risk Factors or History of CAD Troponin: </= Normal Limit Score: 3 MDM MDM MDM Narrative Medical decision making narrative: 57-year-old male history of cardiac disease. Four-way bypass 1-1/2 to 2 years ago. He is not having chest pain he does have reproducible back pain that couldbe musculoskeletal as is concerned this could be cardiac in 1 that evaluated. He is also recently had some decreased energy and some mild shortness of breath. He has no pleuritic pain. No hemoptysis. He is never hada DVT or PE or any significant risk factors. Patient undergo cardiac work-up. Repeat exam patient doing well at 12:39 PM. He and his discussed all his test results. Clinically I do not think this is cardiac. He has reproducible pain along his left scapula consistent with muscle strain or spasm. Be placed on Skelaxin. Discharged home outpatient follow-up with primary care physician. History & Record Review Discussion w/independent historian: Patient and Significant other Additional record(s) reviewed:: Prior inpatient record, Prior outpatient record,Prior ED visit and Prior labs Lab Data Attestation: I reviewed the patient's lab results. Lab results narrative: CBC normal. White count of 9. H&H of 15 and 45. Chemistry is unremarkable gap of 8. BUN and creatinine of 21. Glucose 101. Troponin normal at 6. His pain has been 2 days straight. He does not need a 2-hour troponin. Labs: Laboratory Results - last 24 hr 07/03/22 07/03/22 11:00 11:00 WBC 9.2 RBC 5.43 Hgb 15.8 Hct 45.8 MCV 84.3 MCH 29.1 MCHC 34.5 RDW Std Deviation 43.8 RDW Coeff of Afsaneh 14.2 Plt Count 308 MPV 9.1 Immature Gran % (Auto) 2.400 H Neut % (Auto) 55.7 Lymph % (Auto) 32.1 Billings % (Auto) 5.2 Eos % (Auto) 3.5 Baso % (Auto) 1.1 H Absolute Neuts (auto) 5.1 Absolute Lymphs (auto) 2.94 Nucleated RBC % 0 Sodium 138 Potassium 4.0 Chloride 103 Carbon Dioxide 27.0 Anion Gap 8 BUN 20 H Creatinine 1.02 Estim Creat Clear Calc 103.13 Est GFR (MDRD) Af Amer 98 Est GFR (MDRD) Non-Af 81 BUN/Creatinine Ratio 19.6 Glucose 101 Calcium 9.6 Troponin I High Sens 6 Radiography Chest X-Ray - ED: 1 View, Read by ED Physician, Heart, Lungs, Mediastinum, Bony Structures, No Acute Disease and Chronic Changes Diagnostic Testing: Clinical Impression(s) from Imaging Studies Chest X-Ray 07/03/22 11:10 IMPRESSION: No acute abnormality is seen. Electronically Signed: Robinson Trammell MD at 11:38 EDT , Chest x-ray, portable, single view, interpreted by myself shows no acute abnormality. Prior sternotomy. Normal cardiac silhouette lung richardson. No acute abnormality. Rhythm Strip Rhythm Strip: Sinus Rhythm Rate: 67 Ectopy: None EKG Initial EKG: Attestation: I personally reviewed and interpreted this EKG as follows: Interpretation: Sinus Rhythm and No Acute Injury Pattern Comments: Normal sinus rhythm rate of 67 no acute signs of MN or ischemia. Prior EKG tracings: available for review Prior: Unchanged Discharge Plan Triage Chief Complaint: Chest Pain ED Provider: Alex Kapadia Dx/Rx/DC Orders Clinical Impression: Muscle spasm Instructions: Muscle Spasm Prescriptions: New metaxalone 800 mg tablet 800 mg PO TID 7 Days Qty: 21 0RF oxycodone-acetaminophen [Percocet] 5-325 mg tablet 1 tab PO Q6H PRN (Reason: pain) 3 Days Qty: 10 0RF No Action metoprolol tartrate 50 mg tablet 25 mg PO BID Label Comments: TAKE 1 TABLET BY MOUTH EVERY 12 HOURS aspirin [Adult Low Dose Aspirin] 81 mg tablet,delayed release (DR/EC) 162 mg PO DAILY rosuvastatin 20 mg tablet 20 mg PO QHS Label Comments: Take 1 tablet by mouth daily at bedtime. acetaminophen [Tylenol Extra Strength] 500 mg tablet 1,000 mg PO BID PRN isosorbide mononitrate 30 mg tablet extended release 24 hr 30 mg PO DAILY Label Comments: TAKE 1 TABLET BY MOUTH ONCE DAILY cyclobenzaprine 10 mg tablet 10 mg PO TID PRN PRN (Reason: Muscle Spasm) Label Comments: TAKE 1/2 TO 1 TABLET THREE TIMES DAILY NEEDED FOR MUSCLE SPASM methylprednisolone 4 mg tablets,dose pack See Rx Instructions .ROUTE .COMPLEX Rx Instructions: 4 mg orally taper Last dose 07/04 omeprazole magnesium [Prilosec OTC] 20 mg Tablet,Delayed Release (Dr/Ec) 20 mg PO DAILY Primary Care Provider: Quang Hanson Referrals: Quang Hanson MD [Primary Care Provider] - 3-5 Days if not improving Activity Restrictions/Additional Instructions: Shower, warm bath and massage for your muscle spasm around your left shoulder blade. Skelaxin the muscle relaxant 1 pill 3 times a day for 7 days. Should start feeling better in 3 to 4 days. Limited Percocet for pain. Follow-up with your doctor. Disposition Disposition: Home, Self Care What to do if you have Problems For any increased pain, shortness of breath, bleeding, nausea or vomiting, chestpain, or any unexpected problems, contact your Primary Care Provider. Call [facility] ([phone]) or report to the closest Emergency Room. Call 911 if necessary. 07/03/22 1246 <Electronically signed by Alex Kapadia MD> Cosigner Signature (if applicable): CC: Dr. Quang Hanson MD ~ Signed [facility] Work Phone: Evaluation note* Diagnosis Dyslipidemia Other and unspecified hyperlipidemia [facility] Diagnosis Coronary artery disease involving [place] coronary artery of [place] heart without angina pectoris- Primary Precordial pain Hx of CABG Postsurgical aortocoronary bypass status SHAH (dyspnea on exertion) Other dyspnea and respiratory abnormality Primary hypertension Unspecified essential hypertension [facility] Diagnosis Precordial pain Coronary artery disease involving [place] coronary artery of [place] heart without angina pectoris Hx of CABG Postsurgical aortocoronary bypass status SHAH (dyspnea on exertion) Other dyspnea and respiratory abnormality [facility] Diagnosis Onset Date Resolution Status Positive CHANDANA (antinuclear antibody) acute Smoking greater than 20 pack years acute [facility] Work Phone: Evaluation note* Diagnosis Onset Date Resolution Status Positive CHANDANA (antinuclear antibody) acute Smoking greater than 20 pack years acute Left kidney mass acute Chronic fatigue chronic SOB (shortness of breath) ch ronic [facility] Work Phone: Evaluation note* Diagnosis Coronary artery disease involving [place] coronary artery of [place] heart without angina pectoris- Primary Hx of CABG Postsurgical aortocoronary bypass status Smoker Tobacco use disorder SHAH (dyspnea on exertion) Other dyspnea and respiratory abnormality [facility] Diagnosis SHAH (dyspnea on exertion)- Primary Other dyspnea and respiratory abnormality Precordial pain Coronary artery disease involving [place] coronary artery of [place] heart without angina pectoris Hx of CABG Postsurgical aortocoronary bypass status [facility] Diagnosis Angina of effort (HCC) [I20.8 (ICD-10-CM)]- Primary Other and unspecified angina pectoris [facility]* Diagnosis Onset Date Resolution Status Left kidney mass acute Chronic fatigue chronic SOB (shortness of breath) ch ronic Positive CHANDANA (antinuclear antibody) acute SOB (shortness of breath) ch ronic BPH (benign prostatic hyperplasia) acute Chronic fatigue chronic Chronic low back pain chroni c Hypertension chronic COVID-19 acute [facility] Work Phone: Evaluation note* Diagnosis Onset Date Resolution Status Anxiety and depression acute Erectile dysfunction acute Hypersomnia acute Chronic low back pain chroni c Hyperlipidemia chronic PRABHU (obstructive sleep apnea) chronic Rheumatoid arthritis noneact sheba [facility] Work Phone: Evaluation note* Diagnosis Onset Date Resolution Status Anxiety and depression acute Erectile dysfunction acute Hypersomnia acute Chronic low back pain chroni c Hyperlipidemia chronic PRABHU (obstructive sleep apnea) chronic Rheumatoid arthritis noneact sheba SOB (shortness of breath) ch ronic Shoulder pain resolved [facility] Work Phone: Evaluation note* Diagnosis Primary hypertension- Primary Unspecified essential hypertension documented in this encounter [facility] note* Diagnosis Primary hypertension Unspecified essential hypertension [facility] noteNo assessment information availableWMain Campus Medical Center Work Phone: Evaluation note* Diagnosis Primary hypertension Unspecified essential hypertension [facility] Diagnosis Pain in both knees, unspecified chronicity- Primary [facility]* Diagnosis Pain in both knees, unspecified chronicity [facility]* Diagnosis Chronic pain of both knees- Primary Primary osteoarthritis of both knees Primary localized osteoarthrosis, lower leg CHANDANA positive Other and unspecified nonspecific immunological findings [facility]* Diagnosis Chronic bilateral low back pain without sciatica- Primary CHANDANA positive Other and unspecified nonspecific immunological findings Chronic pain of both knees Primary osteoarthritis of both knees Primary localized osteoarthrosis, lower leg [facility] Diagnosis Chronic pain of both knees CHANDANA positive Other and unspecified nonspecific immunological findings Chronic bilateral low back pain without sciatica [facility] Diagnosis CHANDANA positive- Primary Other and unspecified nonspecific immunological findings Chronic pain of both knees Primary osteoarthritis of both knees Primary localized osteoarthrosis, lower leg [facility]* Diagnosis S/P CABG x 4 Postsurgical aortocoronary bypass status [facility] Diagnosis Primary hypertension Unspecified essential hypertension [facility]* Diagnosis Dyslipidemia Other and unspecified hyperlipidemia [facility]* Diagnosis Primary hypertension Unspecified essential hypertension [facility]* Diagnosis Onset Date Resolution Status Admit Date Vertigo resolved May 25 2:14pm [facility] Work Phone: Evaluation note* Diagnosis Coronary artery disease involving [place] coronary artery of [place] heart without angina pectoris- Primary SHAH (dyspnea on exertion) Other dyspnea and respiratory abnormality Vertigo Dizziness and giddiness Palpitations Dyslipidemia Other and unspecified hyperlipidemia Hx of CABG Postsurgical aortocoronary bypass status [facility]* Diagnosis Palpitations [facility]* Diagnosis Cognitive impairment Unspecified persistent mental disorders due to conditions classified elsewhere [facility]* Diagnosis Vestibular hypofunction, unspecified laterality- Primary [facility] Work Phone: [facility] instructionsW[facility] Work Phone: [facility] Discharge instructionsW[facility] Center Work Phone: Reason for referral (narrative)* Diagnostic Procedure Only (Routine) - Authorized Specialty Diagnoses / Procedures Referred By Myles qiu Referred To Contact MOLECULAR & FUNCTIONAL IMAGING Diagnoses Precordial pain Coronary artery disease involving [place] coronary artery of [place] heart without angina pectoris Hx of CABG SHAH (dyspnea on exertion) Procedures NM CARDIAC PERF STRESS/PHARM MYOCARDIAL SPECT MULTIPLE STUDIES Felicitas Chavez MD [address] [place] [address] [facility] [address] [place] [address] Referral ID Status Reason Start Date Expiration Date Visits Requested Visits Authorized [id number] Authorized Auto-Generat ed Referral 09/03/2021 10/02/2021 1 1 * Outpatient Procedure (Routine) - Closed Specialty Diagnoses / Procedures Referred By Myles qiu Referred To Contact [facility] Diagnoses Precordial pain Procedures ECG COMPLETE ECG ROUTINE ECG W/LEAST 12 LDS W/I&R Felicitas Chavez MD [address] [place] [address] [facility] [place] [address] [place] [address] Referral ID Status Reason Start Date Expiration Date V isits Requested Visits Authorized [id number] Closed Auto-Generate d Referral 09/03/2021 09/03/2022 1 1 [facility] for referral (narrative)* Diagnostic Procedure Only (Routine) - Closed Specialty Diagnoses / Procedures Referred By Myles qiu Referred To Contact MOLECULAR & FUNCTIONAL IMAGING Diagnoses Precordial pain Coronary artery disease involving [place] coronary artery of [place] heart without angina pectoris Hx of CABG SHAH (dyspnea on exertion) Procedures NM CARDIAC PERF STRESS/PHARM MYOCARDIAL SPECT MULTIPLE STUDIES Felicitas Chavez MD [address] [place] [address] [facility] [address] [place] [address] Referral ID Status Reason Start Date Expiration Date V isits Requested Visits Authorized [id number] Closed Auto-Generate d Referral 09/03/2021 10/02/2021 1 1 [facility] for referral (narrative)* Diagnostic Procedure Only (Routine) - Pending Review Specialty Diagnoses / Procedures Referred By Contac t Referred To Contact XR IMAGING Diagnoses Pain in both knees, unspecified chronicity Procedures XR KNEE GENERAL 4V AP BOTH/PA BOTH/LAT/MERC BILATERAL RADIOLOGIC EXAM KNEE COMPLETE 4/MORE VIEWS Ramirez Thomas MD [address] [place] [address] X[facility] [place] [address] Referral ID Status Reason Start Date Expiration Date Visits Requested Visits Authorized [id number] Pending Review Auto-Generat ed Referral 07/27/2023 08/25/2024 1 1 [facility] for referral (narrative)* Diagnostic Procedure Only (Routine) - Authorized Specialty Diagnoses / Procedures Referred By Contac t Referred To Contact XR IMAGING Diagnoses Chronic bilateral low back pain without sciatica Procedures XR THORACIC LIMITED 2V AP/LAT RADEX SPINE THORACIC 2 VIEWS Ciera Palm MD [address] [place] [address] [facility] [place] [address] Referral ID Status Reason Start Date Expiration Date Visits Requested Visits Authorized [id number] Authorized Auto-Generat ed Referral 11/04/2023 12/03/2024 1 1 * Diagnostic Procedure Only (Routine) - Authorized Specialty Diagnoses / Procedures Referred By Contac t Referred To Contact XR IMAGING Diagnoses Chronic pain of both knees CHANDANA positive Procedures XR CERV OTHER 4V AP/LAT/OBL RADEX SPINE CERVICAL 4 OR 5 VIEWS Ciera Palm MD [address] [place] [phone] X[facility] Referral ID Status Reason Start Date Expiration Date Visits Requested Visits Authorized [id number] Authorized Auto-Generat ed Referral 11/04/2023 12/03/2024 1 1 * Diagnostic Procedure Only (Routine) - Authorized Specialty Diagnoses / Procedures Referred By Contac t Referred To Contact XR IMAGING Diagnoses Chronic pain of both knees CHANDANA positive Chronic bilateral low back pain without sciatica Procedures XR HAND GENERAL 3V PA/LAT/OBL BILATERAL RADEX HAND MINIMUM 3 VIEWS Ciera Palm MD [address] [place] [address] Xr Imaging [facility] Referral ID Status Reason Start Date Expiration Date Visits Requested Visits Authorized [id number] Authorized Auto-Generat ed Referral 11/04/2023 12/03/2024 1 1 * Diagnostic Procedure Only (Routine) - Authorized Specialty Diagnoses / Procedures Referred By Contac t Referred To Contact XR IMAGING Diagnoses Chronic pain of both knees CHANDANA positive Procedures XR FOOT GENERAL 3V AP/LAT/OBL BILATERAL RADEX FOOT COMPLETE MINIMUM 3 VIEWS Ciera Palm MD [address] [place] [phone] Xr Imaging [facility] Referral ID Status Reason Start Date Expiration Date Visits Requested Visits Authorized [id number] Authorized Auto-Generat ed Referral 11/04/2023 12/03/2024 1 1 * Diagnostic Procedure Only (Routine) - Authorized Specialty Diagnoses / Procedures Referred By Contac t Referred To Contact XR IMAGING Diagnoses Chronic pain of both knees CHANDANA positive Procedures XR SACROILIAC JOINTS 2V AP PELVIS/FERGUESON RADIOLOGIC EXAMINATION SACROILIAC JNTS <3 VIEWS Ciera Palm MD [address] [place] [phone] [place] [address] Referral ID Status Reason Start Date Expiration Date Visits Requested Visits Authorized [id number] Authorized Auto-Generat ed Referral 11/04/2023 12/03/2024 1 1 * Diagnostic Procedure Only (Routine) - Authorized Specialty Diagnoses / Procedures Referred By Contac t Referred To Contact XR IMAGING Diagnoses Chronic pain of both knees CHANDANA positive Procedures XR LUMBAR GENERAL 3V AP/LAT/L5-S1 RADEX SPINE LUMBOSACRAL 2/3 VIEWS Ciera Palm MD [address] [place] [address] Xr Imaging [facility] Referral ID Status Reason Start Date Expiration Date Visits Requested Visits Authorized [id number] Authorized Auto-Generat ed Referral 11/04/2023 12/03/2024 1 1 [facility] for referral (narrative)No reason for referral information availableWMain Campus Medical Center Work Phone: Reason for visit Narrative* Diagnostic Procedure Only (Routine) - Closed Specialty Diagnoses / Procedures Referred By Contac t Referred To Contact MOLECULAR & FUNCTIONAL IMAGING Diagnoses Precordial pain Coronary artery disease involving [place] coronary artery of [place] heart without angina pectoris Hx of CABG SHAH (dyspnea on exertion) Procedures NM CARDIAC PERF STRESS/PHARM MYOCARDIAL SPECT MULTIPLE STUDIES Felicitas Chavez MD [address] [place] [address] Molecular [facility] Functional Imaging [address] [place] [id number] Referral ID Status Reason Start Date Expiration Date V isits Requested Visits Authorized [id number] Closed Auto-Generate d Referral 09/03/2021 10/02/2021 1 1 [facility] for visit Narrative* Diagnostic Procedure Only (Routine) - Closed Specialty Diagnoses / Procedures Referred By Contac t Referred To Contact XR IMAGING Diagnoses Pain in both knees, unspecified chronicity Procedures XR KNEE GENERAL 4V AP BOTH/PA BOTH/LAT/MERC BILATERAL RADIOLOGIC EXAM KNEE COMPLETE 4/MORE VIEWS Ramirez Thomas MD [address] [place] [address] [place] [address] Referral ID Status Reason Start Date Expiration Date V isits Requested Visits Authorized [id number] Closed Auto-Generate d Referral 07/27/2023 08/25/2024 1 1 [facility]* Diagnostic Procedure Only (Routine) - Closed Specialty Diagnoses / Procedures Referred By Contac t Referred To Contact XR IMAGING Diagnoses Chronic bilateral low back pain without sciatica Procedures XR THORACIC LIMITED 2V AP/LAT RADEX SPINE THORACIC 2 VIEWS Ciera Palm MD [address] [place] [phone] [place] [address] Referral ID Status Reason Start Date Expiration Date V isits Requested Visits Authorized [id number] Closed Auto-Generate d Referral 11/04/2023 12/03/2024 1 1 [facility] Advance Directives No Advanced Directives Records FoundDocuments on File Type Date Recorded Patient Psychiatric Secretary Expl anation Advance Directive(s) 10/22/2020 7:00 AM Latest Code Status on File Code Status Date Activated Date Inactivated Comments Full Code 10/31/2020 4:19 PM Documents on File Type Date Recorded Patient Psychiatric Secretary Expl anation Advance Directive(s) 10/22/2020 7:00 AM Latest Code Status on File Code Status Date Activated Date Inactivated Comments Full Code 10/31/2020 4:19 PM Advance Directive Response Recorded Date/ Time Advance Directives No September 12 9:02am Living Will No August 29, 2021 5 :44pm Power of Ui Ux Engineer No August 29, 2021 5:44pm Latest Code Status on File Code Status Date Activated Date Inactivated Comments Full Code 10/31/2020 4:19 PM 11/05/2021 8:42 AM Latest Code Status on File Code Status Date Activated Date Inactivated Comments Full Code 10/31/2020 4:19 PM 11/05/2021 8:42 AM Advance Directive Response Recorded Date/ Time Advance Directives No September 12 8:02am Living Will No August 29, 2021 4 :44pm Power of Ui Ux Engineer No August 29, 2021 4:44pm Advance Directive Response Recorded Date/ Time Advance Directives No September 12 9:02am Living Will No July 03, 2022 1 0:59am Power of Ui Ux Engineer No July 03, 2022 10:59am Latest Code Status on File Code Status Date Activated Date Inactivated Comments Full Code 10/31/2020 4:19 PM 11/05/2021 8:42 AM Advance Directive Response Recorded Date/ Time Advance Directives No September 12 8:02am Living Will No August 25, 2022 1 2:07pm Power of Ui Ux Engineer No August 25, 2022 12:07pm Date Activated Date Inactivated Comments 10/31/2020 4:19 PM 11/05/2021 8:42 AM Date Activated Date Inactivated Comments 10/31/2020 4:19 PM 11/05/2021 8:42 AM Advance Directive Response Recorded Date/ Time Advance Directives No September 12 9:02am Advance Directive Response Recorded Date/ Time Living Will No May 25, 2024 1:28pm Do you have a Healthcare Power of Ui Ux Engineer? No May 25, 2024 1:28pm Advance Directives No September 12 9:02am Advance Directive Response Recorded Date/ Time Living Will No May 25, 2024 3:08pm Do you have a Healthcare Power of Ui Ux Engineer? No May 25, 2024 3:08pm Advance Directives No September 12 9:02am Date Activated Date Inactivated Comments 06/09/2024 5:46 PM 06/13/2024 3:46 PM Question Answer Comments Full Code Order Discussed With: Patient Date Activated Date Inactivated Comments 10/31/2020 4:19 PM 11/05/2021 8:42 AM Medications Administered Section Inactive Administered Medications - up to 3 most recent administrations Medication Order MAR Action Action Date Dose Rate Site regadenoson 0.4 mg injection (LEXISCAN) 0.4 mg, INTRAVENOUS, ONCE, 1 dose, On Wed09/08/21 at 1530, Give 0.4 mg (5 mL) [...] Given 11/05/2021 10:54 AM EDT 25 mcg Given 11/05/2021 10:35 AM EDT 25 mcg midazolam (PF) injection (VERSED) X (OR/PROCEDURE) PRN, Starting on Wed11/05/21 at 1035, Until Meghna 11/06/21 at 0304, Intraprocedure Given 11/05/2021 10:53 AM EDT 1 mg Given 11/05/2021 10:35 AM EDT 1 mg Summary Purpose Family History No Family History Records Found Relationship Condition Age at Onset Recorded Date/T michael Not Specified Arthritis Unknown Depression Unknown Hypertension Unknown Cerebrovascular accident (CVA) Unknown Chief Complaint and Reason for Visit Chief Complaint Admit Date PERSISTENT VERTIGO May 25, 2024 2:14 pm PERSISTENT VERTIGO May 26, 2024 1:42 pm Reason for Visit Admit Date Vertigo May 25, 2024 2:14 pm Chief Complaint Shortness of breath CHEST PAIN SOB Reason for Visit Positive CHANDANA (antinu clear antibody) Smoking greater than 20 pack years Chief Complaint Shortness of breath CHEST PAIN SOB NICOTINE DEP, SOB NICOTINE DEP, SOB Reason for Visit Positive CHANDANA (antinu clear antibody) Smoking greater than 20 pack years Chief Complaint Shortness of breath CHEST PAIN SOB NICOTINE DEP, SOB NICOTINE DEP, SOB FU FROM LUNG SCREENING Reason for Visit Positive CHANDANA (antinu clear antibody) Smoking greater than 20 pack years Left kidney mass Chronic fatigue SOB (shortness of breath) Chief Complaint NICOTINE DEP, SOB NICOTINE DEP, SOB FU FROM LUNG SCREENING LEFT KIDNEY MASS 1 M FU 1 M FU COVID POSITIVE/NOT IMPROVING Reason for Visit Left kidney mass Chronic fatigue SOB (shortness of breath) Positive CHANDANA (antinuclear antibody) SOB (shortness of breath) BPH (benign prostatic hyperplasia) Chronic fatigue Chronic low back pain Hypertension COVID-19 Chief Complaint discuss bloodwork KNEE PAIN- BOTH Reason for Visit Anxiety and depressi on Erectile dysfunction Hypersomnia Chronic low back pain Hyperlipidemia PRABHU (obstructive sleep apnea) Rheumatoid arthritis Chief Complaint discuss bloodwork KNEE PAIN- BOTH BACK SPASMS chest pain Reason for Visit Anxiety and depressi on Erectile dysfunction Hypersomnia Chronic low back pain Hyperlipidemia PRABHU (obstructive sleep apnea) Rheumatoid arthritis SOB (shortness of breath) Shoulder pain Chief Complaint Admit Date PERSISTENT VERTIGO May 25, 2024 2:14 pm Chief Complaint Admit Date PERSISTENT VERTIGO May 25, 2024 2:14 pm PERSISTENT VERTIGO May 26, 2024 1:42 pm Vertigo July 05, 2024 8:12a m Reason for Visit Admit Date Vertigo May 25, 2024 2:14 pm Anxiety July 05, 2024 8:12a m Chronic fatigue July 05, 2024 8:12a m Depression July 05, 2024 8:12a m Gastroesophageal reflux disease June 8:12am Vertigo July 05, 2024 8:12a m Reason for Referral Specialty Diagnoses / Procedures Referred By Myles t Referred To Contact Rheumatology Diagnoses Chronic pain of both knees Primary osteoarthritis of both knees CHANDANA positive Procedures CONSULT TO RHEUM/IMMUN DISEASE OFFICE/OUTPATIENT [facility] 60 MINUTES Ramirez Thomas MD [address] [place] [address] Referral ID Status Reason Start Date Expiration Date Visits Requested Visits Authorized [id number] Authorized PCP Requested Referral 08/11/2023 08/10/2024 1 1 Additional Source Comments Source Comments (unrecognize d section and content) In the event this informatio n is protected by the Federal Confidentiality of Alcohol and Drug Abuse Patient Records regulations: The Federal rules restrict any use of the information to criminally investigate or prosecute any alcohol or drug abuse patient.[facility] the event this information is protected by the Federal Confidentiality of Alcohol and Drug Abuse Patient Records regulations: The Federal rules restrict any use of the information to criminally investigate or prosecute any alcohol or drug abuse patient.[facility] HospitalIn the event this information is protected by the Federal Confidentiality of Alcohol and Drug Abuse Patient Records regulations: The Federal rules restrict any use of the information to criminally investigate or prosecute any alcohol or drug abuse patient.[facility] HospitalIn the event this information is protected by the Federal Confidentiality of Alcohol and Drug Abuse Patient Records regulations: The Federal rules restrict any use of the information to criminally investigate or prosecute any alcohol or drug abuse patient.[facility] HospitalIn the event this information is protected by the Federal Confidentiality of Alcohol and Drug Abuse Patient Records regulations: The Federal rules restrict any use of the information to criminally investigate or prosecute any alcohol or drug abuse patient.[facility] HospitalIn the event this information is protected by the Federal Confidentiality of Alcohol and Drug Abuse Patient Records regulations: The Federal rules restrict any use of the information to criminally investigate or prosecute any alcohol or drug abuse patient.[facility] HospitalIn the event this information is protected by the Federal Confidentiality of Alcohol and Drug Abuse Patient Records regulations: The Federal rules restrict any use of the information to criminally investigate or prosecute any alcohol or drug abuse patient.[facility] HospitalIn the event this information is protected by the Federal Confidentiality of Alcohol and Drug Abuse Patient Records regulations: The Federal rules restrict any use of the information to criminally investigate or prosecute any alcohol or drug abuse patient.[facility] HospitalIn the event this information is protected by the Federal Confidentiality of Alcohol and Drug Abuse Patient Records regulations: The Federal rules restrict any use of the information to criminally investigate or prosecute any alcohol or drug abuse patient.[facility] HospitalIn the event this information is protected by the Federal Confidentiality of Alcohol and Drug Abuse Patient Records regulations: The Federal rules restrict any use of the information to criminally investigate or prosecute any alcohol or drug abuse patient.[facility] HospitalIn the event this information is protected by the Federal Confidentiality of Alcohol and Drug Abuse Patient Records regulations: The Federal rules restrict any use of the information to criminally investigate or prosecute any alcohol or drug abuse patient.[facility] HospitalIn the event this information is protected by the Federal Confidentiality of Alcohol and Drug Abuse Patient Records regulations: The Federal rules restrict any use of the information to criminally investigate or prosecute any alcohol or drug abuse patient.[facility] HospitalIn the event this information is protected by the Federal Confidentiality of Alcohol and Drug Abuse Patient Records regulations: The Federal rules restrict any use of the information to criminally investigate or prosecute any alcohol or drug abuse patient.[facility] HospitalIn the event this information is protected by the Federal Confidentiality of Alcohol and Drug Abuse Patient Records regulations: The Federal rules restrict any use of the information to criminally investigate or prosecute any alcohol or drug abuse patient.[facility] HospitalIn the event this information is protected by the Federal Confidentiality of Alcohol and Drug Abuse Patient Records regulations: The Federal rules restrict any use of the information to criminally investigate or prosecute any alcohol or drug abuse patient.[facility] HospitalIn the event this information is protected by the Federal Confidentiality of Alcohol and Drug Abuse Patient Records regulations: The Federal rules restrict any use of the information to criminally investigate or prosecute any alcohol or drug abuse patient.[facility] HospitalIn the event this information is protected by the Federal Confidentiality of Alcohol and Drug Abuse Patient Records regulations: The Federal rules restrict any use of the information to criminally investigate or prosecute any alcohol or drug abuse patient.[facility] HospitalIn the event this information is protected by the Federal Confidentiality of Alcohol and Drug Abuse Patient Records regulations: The Federal rules restrict any use of the information to criminally investigate or prosecute any alcohol or drug abuse patient.[facility] HospitalIn the event this information is protected by the Federal Confidentiality of Alcohol and Drug Abuse Patient Records regulations: The Federal rules restrict any use of the information to criminally investigate or prosecute any alcohol or drug abuse patient.[facility] HospitalIn the event this information is protected by the Federal Confidentiality of Alcohol and Drug Abuse Patient Records regulations: The Federal rules restrict any use of the information to criminally investigate or prosecute any alcohol or drug abuse patient.[facility] HospitalIn the event this information is protected by the Federal Confidentiality of Alcohol and Drug Abuse Patient Records regulations: The Federal rules restrict any use of the information to criminally investigate or prosecute any alcohol or drug abuse patient.[facility] HospitalIn the event this information is protected by the Federal Confidentiality of Alcohol and Drug Abuse Patient Records regulations: The Federal rules restrict any use of the information to criminally investigate or prosecute any alcohol or drug abuse patient.[facility] HospitalIn the event this information is protected by the Federal Confidentiality of Alcohol and Drug Abuse Patient Records regulations: The Federal rules restrict any use of the information to criminally investigate or prosecute any alcohol or drug abuse patient.[facility] HospitalIn the event this information is protected by the Federal Confidentiality of Alcohol and Drug Abuse Patient Records regulations: The Federal rules restrict any use of the information to criminally investigate or prosecute any alcohol or drug abuse patient.[facility] HospitalIn the event this information is protected by the Federal Confidentiality of Alcohol and Drug Abuse Patient Records regulations: The Federal rules restrict any use of the information to criminally investigate or prosecute any alcohol or drug abuse patient.[facility] HospitalIn the event this information is protected by the Federal Confidentiality of Alcohol and Drug Abuse Patient Records regulations: The Federal rules restrict any use of the information to criminally investigate or prosecute any alcohol or drug abuse patient.[facility] HospitalIn the event this information is protected by the Federal Confidentiality of Alcohol and Drug Abuse Patient Records regulations: The Federal rules restrict any use of the information to criminally investigate or prosecute any alcohol or drug abuse patient.[facility] HospitalIn the event this information is protected by the Federal Confidentiality of Alcohol and Drug Abuse Patient Records regulations: The Federal rules restrict any use of the information to criminally investigate or prosecute any alcohol or drug abuse patient.[facility] HospitalIn the event this information is protected by the Federal Confidentiality of Alcohol and Drug Abuse Patient Records regulations: The Federal rules restrict any use of the information to criminally investigate or prosecute any alcohol or drug abuse patient.[facility] HospitalIn the event this information is protected by the Federal Confidentiality of Alcohol and Drug Abuse Patient Records regulations: The Federal rules restrict any use of the information to criminally investigate or prosecute any alcohol or drug abuse patient.[facility] HospitalIn the event this information is protected by the Federal Confidentiality of Alcohol and Drug Abuse Patient Records regulations: The Federal rules restrict any use of the information to criminally investigate or prosecute any alcohol or drug abuse patient.[facility] HospitalIn the event this information is protected by the Federal Confidentiality of Alcohol and Drug Abuse Patient Records regulations: The Federal rules restrict any use of the information to criminally investigate or prosecute any alcohol or drug abuse patient.[facility] HospitalIn the event this information is protected by the Federal Confidentiality of Alcohol and Drug Abuse Patient Records regulations: The Federal rules restrict any use of the information to criminally investigate or prosecute any alcohol or drug abuse patient.[facility] HospitalIn the event this information is protected by the Federal Confidentiality of Alcohol and Drug Abuse Patient Records regulations: The Federal rules restrict any use of the information to criminally investigate or prosecute any alcohol or drug abuse patient.[facility] HospitalIn the event this information is protected by the Federal Confidentiality of Alcohol and Drug Abuse Patient Records regulations: The Federal rules restrict any use of the information to criminally investigate or prosecute any alcohol or drug abuse patient.[facility] HospitalIn the event this information is protected by the Federal Confidentiality of Alcohol and Drug Abuse Patient Records regulations: The Federal rules restrict any use of the information to criminally investigate or prosecute any alcohol or drug abuse patient.[facility] HospitalIn the event this information is protected by the Federal Confidentiality of Alcohol and Drug Abuse Patient Records regulations: The Federal rules restrict any use of the information to criminally investigate or prosecute any alcohol or drug abuse patient.[facility] HospitalIn the event this information is protected by the Federal Confidentiality of Alcohol and Drug Abuse Patient Records regulations: The Federal rules restrict any use of the information to criminally investigate or prosecute any alcohol or drug abuse patient.[facility] HospitalIn the event this information is protected by the Federal Confidentiality of Alcohol and Drug Abuse Patient Records regulations: The Federal rules restrict any use of the information to criminally investigate or prosecute any alcohol or drug abuse patient.[facility] HospitalIn the event this information is protected by the Federal Confidentiality of Alcohol and Drug Abuse Patient Records regulations: The Federal rules restrict any use of the information to criminally investigate or prosecute any alcohol or drug abuse patient.[facility] Reason for Visit (unrecogniz ed section and content) Reason Comments PT Eval Specialty Diagnoses / Procedures Referred By Contac t Referred To Contact OCCUPATIONAL THERAPY Diagnoses Cognitive impairment Procedures CONSULT TO AXLE INSPECTOR OCCUPATIONAL THERAPY EVAL HIGH COMPLEX 60 MINS PHYSICAL THERAPY EVALUATION HIGH COMPLEX [address] DO [address] [place] [id number] Phone: tel: fax: Claritza Vargas, OT/L, OTD [address] [place] [address] Phone: tel: Referral ID Status Reason Start Date Expiration Date Visits Requested Visits Authorized [id number] Authorized Auto-Generat ed Referral 02/23/2024 02/21/2025 50 50 Reason Comments Refill Request Reason Comments Patient Question Patient Update Reason [...] INJECT W/ LEFT VENTRICULOGRAPHY IMAGE SUPERVISION/INTERPRETATION [employer] [address] [place] [address] Referral ID Status Reason Start Date Expiration Date Visits Re quested Visits Authorized [id number] 1 1 Reason Comments Stereotype Caster - Other Reason Comments Medication Problem Reason Onset Date Comments Refill Request 09/28/2022 Reason Comments Appointment Reason Onset Date Comments Refill Request 11/09/2022 Reason Onset Date Comments Refill Request 07/18/2023 Reason Comments New Pain Reason Comments Joint Pain Positive CHANDANA Specialty Diagnoses / Procedures Referred By Contac t Referred To Contact Rheumatology Diagnoses Chronic pain of both knees Primary osteoarthritis of both knees CHANDANA positive Procedures CONSULT TO RHEUM/IMMUN DISEASE OFFICE/OUTPATIENT NEW HIGH MDM 60 MINUTES Ramirez Thomas MD [address] [place] [address] Referral ID Status Reason Start Date Expiration Date V isits Requested Visits Authorized [id number] Closed PCP Requested Referral 08/11/2023 08/10/2024 1 1 Reason Comments Follow Up Reason Onset Date Comments Refill Request 01/06/2024 Reason Comments Cardiology Follow Up Coronary artery dis ease Reason Comments OT EVAL Care Teams (unrecognized sec tion and content) Team Status: Active Member Role Status Dates Jess Rosas VSC, [employer] Primary Care Provider Active Team Status: Inactive Member Role Status Dates Jess Rosas VSC, [employer] Primary Care Provider Active Start: February 24, 2024 End: February 24, 2024 Jess Rosas VSC, [employer] Attending Provider Active S tart: February 24, 2024 End: February 24, 2024 Jess Deisy VSC, [employer] Referring Provider Active S tart: February 24, 2024 End: February 24, 2024 Team Status: Inactive Member Role Status Dates Jess Rosas VSC, [employer] Primary Care Provider Active Start: 2024 End: 2024 Jess Rosas VSC, [employer] Attending Provider Active S tart: 2024 End: 2024 Team Status: Active Member Role Status Dates Jess Deisy AYALAC, [employer] Primary Care Provider Active Start: May 25, 2024 Dr. Chucky Maya , Referring Provider Active Start : May 25, 2024 Dr. Chucky Maya , Emergency Provider Active Start : May 25, 2024 Dr. Joi Woodson MD Admit Provider Active St art: May 25, 2024 Dr. Joi Woodson MD Attending Provider Active Start: May 25, 2024 Streetsweeper Operator Relationship Specialty Start Date End Date Quang Hanson MD [address] [place] [address] PCP - General Internal Medicine 09/03/20 Kalin Alonso MD [address] [place] [address] Home Care Physician Thoracic Surgery 10/24/20 Kaycee Ramirez APRN.WAREDRESSER [address] [place], [place] [id number] Referring Vascular Surgery 10/29/20 Felicitas Chavez MD [address] [place] [address] Cardiology 11/26/20 Streetsweeper Operator Relationship Specialty Start Date End Date Quang Hanson MD [address] [place] [address] PCP - General Internal Medicine 09/03/20 Kalin Alonso MD [address] [place] [address] [place] [address] Home Care Physician Thoracic Surgery 10/24/20 Kaycee Ramirez, LATHE HAND.WAREDRESSER [address] [place] [address] Referring Vascular Surgery 10/29/20 Felicitas Chavez MD [address] [place] [address] Cardiology 11/26/20 Streetsweeper Operator Relationship Specialty Start Date End Date Quang Hanson MD [address] [facility] [address] [place] [address] PCP - General Internal Medicine 09/03/20 Kalin Alonso MD [address] [place] [address] Home Care Physician Thoracic Surgery 10/24/20 Kaycee Ramirez, LATHE HAND.WAREDRESSER [address] [place] [address] Referring Vascular Surgery 10/29/20 Felicitas Chavez MD [address] [place] [address] Cardiology 11/26/20 Streetsweeper Operator Relationship Specialty Start Date End Date Quang Hanson MD [address] [facility] [address] [place] [address] PCP - General Internal Medicine 09/03/20 Kalin Alonso MD [address] [place] [address] [place] [address] Home Care Physician Thoracic Surgery 10/24/20 [facility], LATHE HAND.WAREDRESSER [address] [place] [address] Referring Vascular Surgery 10/29/20 Felicitas Chavez MD [address] [place] [address] Cardiology 11/26/20 Streetsweeper Operator Relationship Specialty Start Date End Date Quang Hanson MD [address] [facility] [address] [place] [address] PCP - General Internal Medicine 09/03/20 Kalin Alonso MD [address] [place] [address] [place] [address] Home Care Physician Thoracic Surgery 10/24/20 Kaycee Ramirez, LATHE HAND.WAREDRESSER [address] [place] [address] Referring Vascular Surgery 10/29/20 Felicitas Chavez MD [address] [place] [address] Cardiology 11/26/20 Streetsweeper Operator Relationship Specialty Start Date End Date Quang Hanson MD [address] [facility] [address] [place] [address] PCP - General Internal Medicine 09/03/20 Kalin Alonso MD [address] [place] [address] [place] [address] Home Care Physician Thoracic Surgery 10/24/20 Kaycee Ramirez, LATHE HAND.WAREDRESSER [address] [place] [address] Referring Vascular Surgery 10/29/20 Felicitas Chavez MD [address] [place] [address] Cardiology 11/26/20 Streetsweeper Operator Relationship Specialty Start Date End Date Quang Hanson MD [address] [facility] [address] [place] [address] PCP - General Internal Medicine 09/03/20 Kalin Alonso MD [address] [place] [address] [place] [address] Home Care Physician Thoracic Surgery 10/24/20 Kaycee Ramirez, LATHE HAND.WAREDRESSER [address] [place] [address] Referring Vascular Surgery 10/29/20 Felicitas Chavez MD [address] [place] [address] Cardiology 11/26/20 Streetsweeper Operator Relationship Specialty Start Date End Date Quang Hanson MD [address] [place] [address] PCP - General Internal Medicine 09/03/20 Kalin Alonso MD [address] [place] [address] [place] [address] Home Care Physician Thoracic Surgery 10/24/20 Kaycee Ramirez, LATHE HAND.WAREDRESSER [address] [place] [address] Referring Vascular Surgery 10/29/20 Felicitas Chavez MD [address] [place] [address] Cardiology 11/26/20 Streetsweeper Operator Relationship Specialty Start Date End Date Quang Hanson MD [address] [facility] [address] [place] [address] PCP - General Internal Medicine 09/03/20 Kalin Alonso MD [address] [place] [address] [place] [address] Home Care Provider Thoracic Surgery 10/24/20 Kaycee Ramirez, LATHE HAND.WAREDRESSER [address] [place] [address] Referring Vascular Surgery 10/29/20 Felicitas Chavez MD [address] [place] [address] Cardiology 11/26/20 Streetsweeper Operator Relationship Specialty Start Date End Date Quang Hanson MD [address] [facility] [address] [place] [address] PCP - General Internal Medicine 09/03/20 Kalin Alonso MD [address] [place] [address] [place] [address] Home Care Provider Thoracic Surgery 10/24/20 Kaycee Ramirez, LATHE HAND.WAREDRESSER [address] [place] [address] Referring Vascular Surgery 10/29/20 Felicitas Chavez MD [address] [place] [address] Cardiology 11/26/20 Streetsweeper Operator Relationship Specialty Start Date End Date Quang Hanson MD [address] [place] [address] PCP - General Internal Medicine 09/03/20 Kalin Alonso MD [address] [place] [address] [place] [address] Home Care Provider Thoracic Surgery 10/24/20 [facility], LATHE HAND.WAREDRESSER [address] [place] [address] Referring Vascular Surgery 10/29/20 Felicitas Chavez MD [address] [place] [address] Cardiology 11/26/20 Streetsweeper Operator Relationship Specialty Start Date End Date Quang Hanson MD [address] [place] [address] PCP - General Internal Medicine 09/03/20 Kalin Alonso MD [address] [place] [address] [place] [address] Home Care Provider Thoracic Surgery 10/24/20 [facility], LATHE HAND.WAREDRESSER [address] [place] [address] [place] [address] Referring Vascular Surgery 10/29/20 Felicitas Chavez MD [address] [place] [address] Cardiology 11/26/20 Team Status: Active Member Role Status Dates Dr. Quang Hanson MD Family Provider Active Dr. Quang Hanson MD Primary Care Provider Active Team Status: Inactive Member Role Status Dates Dr. Quang Hanson MD Primary Care Provider, Refer ring Provider Active Jess Rosas [employer], [employer]-C Attending Provider Active Team Status: Inactive Member Role Status Dates Dr. Quang Hanson MD Primary Care Provider Active Jess Rosas NP, [employer] Attending Provider, Referring Prov ider Active Team Status: Inactive Member Role Status Dates Dr. Quang Hanson MD Primary Care Provider Active Tiffanie Park , [employer]-C Attending Provider, Referring Pro vider Active Team Status: Inactive Member Role Status Dates Dr. Quang Hanson MD Primary Care Provider, Refer ring Provider Active Felix HERNANDEZ, PA Attending Provider Active Team Status: Inactive Member Role Status Dates Dr. Quang Hanson MD Primary Care Provider Active Dr. Alex Kapadia MD Emergency Provider Active Streetsweeper Operator Relationship Specialty Start Date End Date Quang Hanson MD [address] [facility] [address] [place] [address] PCP - General Internal Medicine 09/03/20 Kalin Alonso MD [address] [place] [address] [place] [address] Home Care Provider Thoracic Surgery 10/24/20 Kaycee Ramirez APRN.WAREDRESSER [address] [place] [address] [place] [address] Referring Vascular Surgery 10/29/20 Felicitas Chavez MD [address] [place], [place] [id number] Cardiology 11/26/20 Streetsweeper Operator Relationship Specialty Start Date End Date Quang Hanson MD [address] [facility] [address] [place] [phone] PCP - General Internal Medicine 09/03/20 Kalin Alonso MD [address] [place] [address] Home Care Provider Thoracic Surgery 10/24/20 Kaycee Ramirez, MARCUS.WAREDRESSER [address] [place] [address] Referring Vascular Surgery 10/29/20 Felicitas Chavez MD [address] [place], [place] [id number] Cardiology 11/26/20 Streetsweeper Operator Relationship Specialty Start Date End Date Quang Hanson MD [address] [place] [phone] PCP - General Internal Medicine 09/03/20 Kalin Alonso MD [address] [place] [address] Home Care Provider Thoracic Surgery 10/24/20 Kaycee Ramirez, LATHE HAND.WAREDRESSER [address] [place] [phone] Referring Vascular Surgery 10/29/20 Felicitas Chavez MD [address] [place] [address] Cardiology 11/26/20 Team Status: Inactive Member Role Status Dates Dr. Quang Hanson MD Primary Care Provider Active SCOTT POLK Attending Provider, Referring Provider Ac tive Streetsweeper Operator Relationship Specialty Start Date End Date Quang Hanson MD [address] [place] [phone] PCP - General Internal Medicine 09/03/20 Kalin Alonso MD [address] [place] [address] Home Care Provider Thoracic Surgery 10/24/20 Kaycee Riley APRN.WAREDRESSER [address] [place] [address] Referring Vascular Surgery 10/29/20 Felicitas Chavez MD [address] [place] [address] Cardiology 11/26/20 Streetsweeper Operator Relationship Specialty Start Date End Date Quang Hanson MD [address] [facility] [address] [place] [phone] PCP - General Internal Medicine 09/03/20 Kalin Alonso MD [address] [place] [address] Home Care Provider Thoracic Surgery 10/24/20 Kaycee Riley APRN.WAREDRESSER [address] [place] [address] Referring Vascular Surgery 10/29/20 Felicitas Chavez MD [address] [place] [address] Cardiology 11/26/20 Streetsweeper Operator Relationship Specialty Start Date End Date Quang Hanson MD [address] [facility] [address] [place] [address] PCP - General Internal Medicine 09/03/20 Kalin Alonso MD [address] [place] [address] Home Care Provider Thoracic Surgery 10/24/20 Kaycee Riley APRN.WAREDRESSER [address] [place] [address] Referring Vascular Surgery 10/29/20 Felicitas Chavez MD [address] [place] [address] Cardiology 11/26/20 Streetsweeper Operator Relationship Specialty Start Date End Date Quang Hanson MD [address] [place] [address] PCP - General Internal Medicine 09/03/20 Kalin Alonso MD [address] [place] [phone] Home Care Provider Thoracic Surgery 10/24/20 Kaycee Riley APRN.WAREDRESSER [address] [place] [address] Referring Vascular Surgery 10/29/20 Felicitas Chavez MD [address] [place] [address] Cardiology 11/26/20 Streetsweeper Operator Relationship Specialty Start Date End Date Quang Hanson MD [address] [place] [address] PCP - General Internal Medicine 09/03/20 Kalin Alonso MD [address] [place] [phone] Home Care Provider Thoracic Surgery 10/24/20 Kaycee Riley APRN.WAREDRESSER [address] [place], [place] [phone] Referring Vascular Surgery 10/29/20 Felicitas Chavez MD [address] [place] [address] Cardiology 11/26/20 Streetsweeper Operator Relationship Specialty Start Date End Date Quang Hanson MD [address] [facility] [address] [place] [address] PCP - General Internal Medicine 09/03/20 Kalin Alonso MD [address] [place] [phone] Home Care Provider Thoracic Surgery 10/24/20 Kaycee Riley, LATHE HAND.WAREDRESSER [address] [place] [address] Referring Vascular Surgery 10/29/20 Felicitas Chavez MD [address] [place] [address] Cardiology 11/26/20 Streetsweeper Operator Relationship Specialty Start Date End Date Quang Hanson MD [address] [facility] [address] [place] [address] PCP - General Internal Medicine 09/03/20 Kalin Alonso MD [address] [place] [phone] Home Care Provider Thoracic Surgery 10/24/20 Kaycee Riley APRN.WAREDRESSER [address] [place] [address] Referring Vascular Surgery 10/29/20 Felicitas Chavez MD [address] [place] [address] Cardiology 11/26/20 Streetsweeper Operator Relationship Specialty Start Date End Date Quang Hanson MD [address] [facility] [address] [place] [address] PCP - General Internal Medicine 09/03/20 Kalin Alonso MD [address] [place] [address] [place] [address] Home Care Provider Thoracic Surgery 10/24/20 Kaycee Riley, LATHE HAND.WAREDRESSER [address] [place] [address] Referring Vascular Surgery 10/29/20 Feliciats Chavez MD [address] [place] [address] Cardiology 11/26/20 Streetsweeper Operator Relationship Specialty Start Date End Date Quang Hanson MD [address] [facility] [address] [place] [address] PCP - General Internal Medicine 09/03/20 Kalin Alonso MD [address] [place] [address] [place] [address] Home Care Provider Thoracic Surgery 10/24/20 Kaycee Riley APRN.WAREDRESSER [address] [place] [address] Referring Vascular Surgery 10/29/20 Felicitas Chavez MD [address] [place], [place] [phone] Cardiology 11/26/20 Streetsweeper Operator Relationship Specialty Start Date End Date Quang Hanson MD [address] [facility] [address] [place] [address] PCP - General Internal Medicine 09/03/20 Kalin Alonso MD [address] [place] [address] Home Care Provider Thoracic Surgery 10/24/20 Kaycee Riley APRN.WAREDRESSER [address] [place] [address] Referring Vascular Surgery 10/29/20 Carlito Luna, RN [address] [place] [address] Automotive Machinist Post Acute Care 10/30/20 12/01/20 Streetsweeper Operator Relationship Specialty Start Date End Date Quang Hanson MD [address] [facility] [address] [place] [address] PCP - General Internal Medicine 09/03/20 Kalin Alonso MD [address] [place] [address] Home Care Provider Thoracic Surgery 10/24/20 Kaycee Riley APRN.WAREDRESSER [address] [place] [address] Referring Vascular Surgery 10/29/20 Felicitas Chavez MD [address] [place], [place] [phone] Cardiology 11/26/20 Streetsweeper Operator Relationship Specialty Start Date End Date Quang Hanson MD [address] [place] [phone] PCP - General Internal Medicine 09/03/20 Kalin Alonso MD [address] [place] [phone] Home Care Provider Thoracic Surgery 10/24/20 Kaycee Riley, MARCUS.WAREDRESSER [address] [place] [address] Referring Vascular Surgery 10/29/20 Felicitas Chavez MD [address] [place], [place] [phone] Cardiology 11/26/20 Team Status: Active Member Role Status Dates Dr. Quang Hanson MD Family Provider Active Jess THOMAS, LABORER [employer] Primary Care Provider Active Team Status: Inactive Member Role Status Dates Jess THOMAS, LABORER [employer] Primary Care Provider Active Start: May 25, 2024 End: May 26, 2024 Dr. Chucky Maya DO Referring Provider Active Start : May 25, 2024 End: May 26, 2024 Dr. Chucky Maya DO Emergency Provider Active Start : May 25, 2024 End: May 26, 2024 Dr. Joi Woodson MD Admit Provider Active St art: May 25, 2024 End: May 26, 2024 Dr. Joi Woodson MD Other Provider Active St art: May 25, 2024 End: May 26, 2024 Nilo Hill MD Other Provider Active Start: 2024 End: May 26, 2024 Dr. Radha Leyva MD Other Provider Active Start: May 25, 2024 End: May 26, 2024 Mariana Stiles MD Other Provider Active Start : May 25, 2024 End: May 26, 2024 Dr. Jie Palacio DO Other Provider Active St art: May 25, 2024 End: May 26, 2024 Dr. Ashanti Leslie MD Other Provider Active Start: May 25, 2024 End: May 26, 2024 Dr. Christiano Garcia MD Other Provider Active Sta rt: May 25, 2024 End: May 26, 2024 Dr. Mary Walls MD Other Provider Active Start : May 25, 2024 End: May 26, 2024 Dr. Washington Masters MD Other Provider Active Start: May 25, 2024 End: May 26, 2024 Dr. Abhay Sin MD Other Provider Active Start : May 25, 2024 End: May 26, 2024 Dr. Иван Rutledge MD Other Provider Active Sta rt: May 25, 2024 End: May 26, 2024 Renee Beck MD Other Provider Active Start : May 25, 2024 End: May 26, 2024 Dr. Tigre Masterson MD Other Provider Active St art: May 25, 2024 End: May 26, 2024 Dr. Hanna Hammond MD Other Provider Active Start : May 25, 2024 End: May 26, 2024 Dr. Bonnie Vicente MD Other Provider Active Sta rt: May 25, 2024 End: May 26, 2024 Dr. Benja Ivey MD Other Provider Active Start: May 25, 2024 End: May 26, 2024 Dr. Alvin Ward MD Other Provider Active St art: May 25, 2024 End: May 26, 2024 Dr. Ozzie Gibbs MD Other Provider Active Star t: May 25, 2024 End: May 26, 2024 Dr. Sabas Piedra MD Other Provider Active St art: May 25, 2024 End: May 26, 2024 Dr. Kaylan Paulino MD Other Provider Active Start: May 25, 2024 End: May 26, 2024 Ravi Fonseca MD Other Provider Active Start: May 25, 2024 End: May 26, 2024 Dr. Marcos Lovelace DO Attending Provider Active Start: May 25, 2024 End: May 26, 2024 Team Status: Active Member Role Status Dates Jess Deisy THOMAS, LABORER [employer] Primary Care Provider Active Start: May 26, 2024 Dr. Tom Medina MD Attending Provider Active S tart: May 26, 2024 Team Status: Active Member Role Status Dates Jess Deisy THOMAS, LABORER [employer] Primary Care Provider Active Start: May 26, 2024 Dr. Chucky Maya DO Referring Provider Active Start : May 26, 2024 Dr. Chucky Maya DO Emergency Provider Active Start : May 26, 2024 Dr. Joi Woodson MD Admit Provider Active St art: May 26, 2024 Dr. Joi Woodson MD Other Provider Active St art: May 26, 2024 Nilo Hill MD Other Provider Active Start: 2024 Dr. Radha Leyva MD Other Provider Active Start: May 26, 2024 Marinaa Stiles MD Other Provider Active Start : May 26, 2024 Dr. Jie Palacio DO Other Provider Active St art: May 26, 2024 Dr. Ashanti Leslie MD Other Provider Active Start: May 26, 2024 Dr. Christiano Garcia MD Other Provider Active Sta rt: May 26, 2024 Dr. Mary Walls MD Other Provider Active Start : May 26, 2024 Dr. Washington Masters MD Other Provider Active Start: May 26, 2024 Dr. Abhay Sin MD Other Provider Active Start : May 26, 2024 Dr. Иван Rutledge MD Other Provider Active Sta rt: May 26, 2024 Renee Beck MD Other Provider Active Start : May 26, 2024 Dr. Tigre Masterson MD Other Provider Active St art: May 26, 2024 Dr. Hanna Hammond MD Other Provider Active Start : May 26, 2024 Dr. Bonnie Vicente MD Other Provider Active Sta rt: May 26, 2024 Dr. Benja Ivey MD Other Provider Active Start: May 26, 2024 Dr. Alvin Ward MD Other Provider Active St art: May 26, 2024 Dr. Ozzie Gibbs MD Other Provider Active Star t: May 26, 2024 Dr. Sabas Piedra MD Other Provider Active St art: May 26, 2024 Dr. Kaylan Paulino MD Other Provider Active Start: May 26, 2024 Ravi Fonseca MD Other Provider Active Start: May 26, 2024 Dr. Marcos Lovelace DO Attending Provider Active Start: May 26, 2024 Dr. Marcos Lovelace , Other Provider Active Start: May 26, 2024 Streetsweeper Operator Relationship Specialty Start Date End Date Jess Rosas CNP [address] [place] [address] PCP - General Family Medicine 06/06/24 Kalin Alonso MD [address] [place] [address] [place] [address] Home Care Provider Thoracic Surgery 10/24/20 Kaycee Riley, LATHE HAND.WAREDRESSER [address] [place] [address] [place] [address] Referring Vascular Surgery 10/29/20 Felicitas Chavez MD [address] [place] [address] Cardiology 11/26/20 Streetsweeper Operator Relationship Specialty Start Date End Date Jess Rosas CNP [address] [place] [address] PCP - General Family Medicine 06/06/24 Kalin Alonso MD [address] [place] [address] [place] [address] Home Care Provider Thoracic Surgery 10/24/20 Kaycee Riley, LATHE HAND.WAREDRESSER [address] [place] [address] [place] [address] Referring Vascular Surgery 10/29/20 Felicitas Chavez MD [address] [place] [address] Cardiology 11/26/20 Streetsweeper Operator Relationship Specialty Start Date End Date Jess Rosas CNP [address] [place] [address] PCP - General Family Medicine 06/06/24 Kalin Alonso MD Home Care Provider Thoracic Surgery 10/24/20 Kaycee Riley, LATHE HAND.WAREDRESSER Referring Vascular Surgery 10/29/20 Felicitas Chavez MD [address] [facility] [place] [address] Cardiology 11/26/20 Streetsweeper Operator Relationship Specialty Start Date End Date Jess Rosas CNP [address] [place] [address] PCP - General Family Medicine 06/06/24 Kalin Alonso MD Home Care Provider Thoracic Surgery 10/24/20 Kaycee Riley, LATHE HAND.WAREDRESSER Referring Vascular Surgery 10/29/20 Felicitas Chavez MD [address] [place] [address] Cardiology 11/26/20 Team Status: Active Member Role Status Dates Jess Rosas C, LABORER [employer] Primary Care Provider Active Start: May 26, 2024 Dr. Chucky Maya , Emergency Provider Active Start : May 26, 2024 Dr. Joi Woodson MD Admit Provider Active St art: May 26, 2024 Dr. Joi Woodson MD Other Provider Active St art: May 26, 2024 Nilo Hill MD Other Provider Active Start: 2024 Dr. Radha Leyva MD Other Provider Active Start: May 26, 2024 Mariana Stiles MD Other Provider Active Start : May 26, 2024 Dr. Jie Palacio DO Other Provider Active St art: May 26, 2024 Dr. Ashanti Leslie MD Other Provider Active Start: May 26, 2024 Dr. Christiano Garcia MD Other Provider Active Sta rt: May 26, 2024 Dr. Mary Walls MD Other Provider Active Start : May 26, 2024 Dr. Washington Masters MD Other Provider Active Start: May 26, 2024 Dr. Abhay Sin MD Other Provider Active Start : May 26, 2024 Dr. Иван Rutledge MD Other Provider Active Sta rt: May 26, 2024 Renee Beck MD Other Provider Active Start : May 26, 2024 Dr. Tigre Masterson MD Other Provider Active St art: May 26, 2024 Dr. Hanna Hammond MD Other Provider Active Start : May 26, 2024 Dr. Bonnie Vicente MD Other Provider Active Sta rt: May 26, 2024 Dr. Benja Ivey MD Other Provider Active Start: May 26, 2024 Dr. Alvin Ward MD Other Provider Active St art: May 26, 2024 Dr. Ozzie Gibbs MD Other Provider Active Star t: May 26, 2024 Dr. Sabas Piedra MD Other Provider Active St art: May 26, 2024 Dr. Kaylan Paulino MD Other Provider Active Start: May 26, 2024 Ravi Fonseca MD Other Provider Active Start: May 26, 2024 Dr. Marcos Lovelace DO Attending Provider Active Start: May 26, 2024 Dr. Marcos Lovelace DO Other Provider Active Start: May 26, 2024 Team Status: Inactive Member Role Status Dates Jess THOMAS LABORER [employer] Primary Care Provider Active Start: June 20, 2024 End: June 20, 2024 Faheem THOMAS LABORER [employer] Attending Provider Active Start: June 20, 2024 End: June 20, 2024 Team Status: Inactive Member Role Status Dates Jess THOMAS LABORER [employer] Primary Care Provider Active Start: July 05, 2024 End: July 05, 2024 Jess THOMAS LABORER [employer] Referring Provider Active S tart: July 05, 2024 End: July 05, 2024 Dr. Terrell Quiles MD Attending Provider Active Start: July 05, 2024 End: July 05, 2024 (unrecognized sect ion and content) No Status Records FoundNo Status Records FoundNo Status Records FoundNo Status Records Found INFORMATION SOURCE (unrecogn ized section and content) DATE CREATED AUTHOR 09/11/2021 [facility] DATE CREATED AUTHOR AUTHOR'S ORGANIZ ATION 07/19/2024 [facility] DATE CREATED AUTHOR AUTHOR'S ORGANIZ ATION 07/20/2024 [facility] DATE CREATED AUTHOR AUTHOR'S ORGANIZ ATION 07/25/2024 [facility] Goals (unrecognized section and content) Goals may be documented in a n alternate sectionGoals may be documented in an alternate sectionGoals may be documented in an alternate sectionGoals may be documented in an alternate sectionGoals may be documented in an alternate sectionGoals may be documented in an alternate sectionGoals may be documented in an alternate sectionGoals may be documented in an alternate sectionGoals may be documented in an alternate section PRN Active and Recently Administ ered Medications (unrecognized section and content) Medication Order 11/03/2021 11/04/2021 11/05/2021 fentaNYL 50 mcg/mL injection (SUBLIMAZE) X (OR/PROCEDURE) PRN, Starting on 11/05/21 at 1035, Until Meghna 11/06/21 at 0304, Intraprocedure 1035 (Given - Provid er: Dannie Coker RN)1054 (Given - Provider: Dannie Coker RN) midazolam (PF) injection (VERSED) X (OR/PROCEDURE) PRN, Starting on 11/05/21 at 1035, Until Meghna 11/06/21 at 0304, Intraprocedure 1035 (Given - Provid er: Dannie Coker RN)1053 (Given - Provider: Dannie Coker RN) FOR RECORDS PERTAINING TO PATIENTS WHO ARE [...] BE BASED ON THE PRIMARY CLINICAL RECORDS. [facility], [facility]. provides no warranty or guarantee of the accuracy or completeness of information in this document.
== END | disposition home or self-care (01) ==
LOC: MRI 16:10
PROVIDERS: PCP Nurse Practitioner Family; Referring Provider Psychiatry & Neurology Neurology; Visit Provider Psychiatry & Neurology Neurology
DX: M54.2 Cervicalgia (principal); R20.2 Paresthesia of skin
CPT/HCPCS: 72156; A9575

== ENCOUNTER → 2024-08-03 | Outpatient (CLI) | payer BC, SELFPAY | END | disposition home or self-care (01) | LOC: MTLAB 08:09 | PROVIDERS: PCP Nurse Practitioner Family; Referring Provider Psychiatry & Neurology Neurology; Visit Provider Psychiatry & Neurology Neurology | DX: R20.2 Paresthesia of skin (principal) | CPT/HCPCS: 36415; 82784; 84165; 86334; 86335 ==

== ENCOUNTER → 2024-09-26 | Outpatient (CLI) | payer BC, SELFPAY ==
[2024-08-29 16:01] VITALS: BMI 27.8
[2024-09-26 17:07] LABS: Hematocrit 42.1 % (40-54); Hemoglobin 15.0 g/dL (13.0-16.5); Immature Granulocytes Count 0.030 X10^3/uL (0.0-0.0); Mean Corp Hgb Conc 35.6 g/dL (32-36); Mean Corpuscular Volume 81.1 fL (80-94); Mean Platelet Vol. 9.6 fl (6.2-12.0); NRBC Flagged by Analyzer 0 % (0-5); Platelet Count 304 K/mm3 (150-450); RBC Distribution Width CV 14.0 % (11.6-14.6); RBC Distribution Width SD 40.5 fl (35.1-43.9); Red Blood Count 5.19 M/mm3 (4.6-6.2); White Blood Count 7.1 K/mm3 (4.4-11.0)
[2024-09-26 17:19] LABS: AST(SGOT) 26 U/L (<=37); Alanine Aminotransfer ALT/SGPT 22 U/L (<=46); Albumin, Serum 4.7 g/dL (3.5-5.0); Alkaline Phosphatase 68 U/L (40-129); Anion Gap 14 (5-15); BUN 19 mg/dL (4-19); BUN/Creat Ratio 15.1 RATIO (10-20); Calcium,Total 9.6 mg/dL (7.6-11.0); Carbon Dioxide 22.8 mmol/L (21.0-32.0); Chloride 100 mmol/L (98-108); Ferritin 89 ng/mL (37-417); Globulin 2.7 g/dL (2.2-4.2); Glucose 92 mg/dL (70-99); Iron 47 ug/dL (65-175); Iron Binding Capacity,Total 332 ug/dL (250-450); Iron Binding Capacity,Unsat 285 ug/dL (228-428); Potassium 4.0 mmol/L (3.3-5.1); Vitamin D,25 Hydroxy 74.2 ng/mL (30-100)
[2024-10-01 12:08] LABS: Testosterone, % Free 2.56 % (1.50-4.20); Testosterone, Free 7.60 ng/dL (5.00-21.00)
== END | disposition home or self-care (01) ==
LOC: VSLAB 15:52
PROVIDERS: PCP Nurse Practitioner Family
DX: R53.83 Other fatigue (principal)
CPT/HCPCS: 36415; 80053; 82306; 82728; 83540; 83550; 84402; 84403; 84443; 85025

== ENCOUNTER → 2024-10-13 | Outpatient (CLI) | payer BC, SELFPAY ==
[2024-08-29 16:01] VITALS: BMI 27.8
--- NOTE | 2024-10-13 06:47 | MRI_ITS ---
PROCEDURE: SPINE LUMBAR (ROUTINE) 10/13/2024 REASON FOR EXAM: LOW BACK PAIN; RIGHT LUMBAR RADICULOAPTHY TECHNIQUE: SPINE LUMBAR (ROUTINE) COMPARISON: 09/11/2022 FINDINGS: Normal lumbar vertebral body height and alignment. No subluxation. No compression deformity. Normal conus. Normal cauda equina. No retroperitoneal mass. L1-L2, L2-L3 and L3-L4 are within normal limits. At L4-5 there is disc dehydration and minimal annular bulging. L5-S1 is unremarkable. MRI/Spine Lumbar (Routine) IMPRESSION: Similar findings of the prior study. Disc dehydration and minimal annular bulg ing at L4-5. No interval change. No focal right-sided nerve root impingement Reading [facility]
--- OUTSIDE RECORDS SUMMARY | 2024-10-13 07:18 | XMS RPT_ITS | CCD ---
Author Organization [facility] Care Team Providers Care Skiver Blockers Name Role Phone Quang Hanson MD Primary Care Provider [phone] Kalin Alonso MD Unavailable Miglionicorlando TECHNOLOGY PROGRAM MANAGER.Kaycee VASQUEZ Unavailable Felicitas Chavez MD Unavailable Dr. Quang Hanson Primary Care Provider [phone] Dr. Quang Hanson Referring Provider [phone] Maximilian LAUREANO, WORSHIP LEADER-C Michelle Attending Provider [phone] Dr. Bill Avery Attending Provider Maximilian WORSHIP LEADER, WORSHIP LEADER-Starr Martinez Referring Provider [phone] Maximilian LAUREANO, WORSHIP LEADER-C Michelle Other Provider Dr. Quang Hanson Attending Provider Quang Hanson MD Primary Care Provider [phone] Kalin Alonso MD Unavailable Miglionico TECHNOLOGY PROGRAM MANAGER.CHRISTINA, Kaycee Unavailable Felicitas Chavez MD Unavailable Kalin Alonso MD Unavailable Quang Hanson MD Primary Care Provider Miglionico TECHNOLOGY PROGRAM MANAGER.CHRISTINA Kaycee Unavailable Dr. Quang Hanson Primary Care Provider [phone] Maximilian LAUREANO, WORSHIP LEADER-Starr Martinez Referring Provider [phone] Maximilian LAUREANO, WORSHIP LEADER-C Michelle Other Provider Dr. Bill Avery Attending Provider Dr. Quang Hanson Attending Provider [phone] Dr. Quang Hanson Referring Provider [phone] Dr. Fredy Montague Attending Provider MARY Perez Attending Provider Quang Hanson MD Primary Care Provider Kalin Alonso MD Unavailable Miglionico TECHNOLOGY PROGRAM MANAGER.ENTERPRISE INFRASTRUCTURE ARCHITECT, Kaycee Unavailable Felicitas Chavez MD Unavailable Dr. Quang Hanson Primary Care Provider Dr. Quang Hanson Referring Provider Deisy WORSHIP LEADER, WORSHIP LEADER-C Jess Attending Provider MARY Perez Attending Provider Quang Hanson MD Primary Care Provider Quang Hanson MD Primary Care Provider Long TECHNOLOGY PROGRAM MANAGER.ENTERPRISE INFRASTRUCTURE ARCHITECT, Kaycee Unavailable Felicitas Chavez MD Unavailable Long TECHNOLOGY PROGRAM MANAGER.ENTERPRISE INFRASTRUCTURE ARCHITECT, Kaycee Unavailable Unavailable Cheryl COREY, Carlito Unavailable Rosas WORSHIP LEADER-C, Jess Primary Care Provider Rosas WORSHIP LEADER-C, Jess Attending Provider Rosas WORSHIP LEADER-C, Jess Referring Provider Dr. Chucyk Maya DO Referring Provider [phone] Chucky Maya DO Emergency Provider Kandice HU, Dr. Joi Baldwin Admit Provider Kandice HU, Dr. Joi Baldwin Attending Provider Kandice HU, Dr. Joi Nicolasa Other Provider Sergio HU, Nilo Other Provider Unavailable Autumn HU, Dr. Garcia Other Provider Linsey HU, Mariana Other Provider Unavailable Dr. Jie Palacio DO Other Provider Mariama HU, Dr. Burrell Other Provider [phone] Radha HU, Dr. Alvarado Other Provider Kavita HU, Dr. Hernandez Other Provider Sonam [facility], Dr. Delarosa Other Provider [phone] Merrick HU, Dr. Eaton Other Provider Aamir [...] Dr. Kimbrough Other Provider Unavailable Raymundo HU, Yousef Other Provider Unavailable Dr. Marcos Lovelace DO Attending Provider Carol HU, Dr. Santos Attending Provider Dr. Marcos Lovelace DO Other Provider Deisy VASQUEZ, Jess Primary Care Provider Celeste HU, Kalin Mena Unavailable Unava ilable Long TECHNOLOGY PROGRAM MANAGER.CHRISTINA, Kaycee Unavailable Unavailable Deisy WORSHIP LEADER-C, Jess Primary Care Provider Deisy WORSHIP LEADER-C, Jess Attending Provider Beam WORSHIP LEADER-C, Faheem Attending Provider [phone] Rosas WORSHIP LEADER-C, Jess Referring Provider [phone] Terrell Quiles MD Attending Provider BARB IVERSON Admitting Unavailable ITRAT, NADEEMBENTON KUN Consulting Unavailable AV CORONADO Attending Unavailable ROSAS, JESS Primary Care Unavailable ROSAS, JESS Primary Care Unavailable SELF Referring Unavailable SCOTTSHAYANAY M Attending Unavailable SCOTTSHAYANAY M Referring Unavailable ROSAS, JESS Primary Care Unavailable AV CORONADO Referring Unavailable ROSAS, JESS Primary Care Unavailable Dr. Terrell Quiles MD Referring Provider [phone] Rosas WORSHIP LEADER-C, Jess Primary Care Provider Rosas VSC, Jess Primary Care Unavailable Terrell Quiles Attending Unavailable Terrell Quiles Referring Unavailable Rosas VSC, Jess Primary Care Unavailable Terrell Quiles Attending Unavailable Terrell Quiles Referring Unavailable Rosas VSC, Jess Primary Care Unavailable Rosas VSC, Jess Attending Unavailable Kanidce, Joi Nicolasa Admitting Unavailable Marcos Lovelace Attending Unavailable Chucky Maya Referring Unavailable Rosas VSC, Jess Primary Care Unavailable Nilo Hill Consulting Unavailable Adeli, Amir Consulting Unavailable Hinduja, Mariana Consulting Unavailable Hakeem, Jie Consulting Unavailable Zha, Ashanti Consulting Unavailable Radha, Christiano Consulting Unavailable Kavita, Mary Consulting Unavailable Bittar, Washington Consulting Unavailable Abhay iSn Consulting Unavailable Иван Rutledge Consulting Unavailable Renee Beck Consulting Unavailable Tigre Masterson Consulting Unavailable Hanna Hammond Consulting Unavailable RidBonnie reeves Consulting Unavailable Loni, Mhd Donovan Consulting UnavailAlvin Singh Consulting Unavailable Gibbs, Rami Consulting Unavailable Dorothea, Sabas Consulting Unavailable Kaylan Paulino Consulting Unavailable Ravi Fonseca Consulting Unavailable Koram, Joi Nicolasa Consulting Unavailable Rosas VSC, Jess Primary Care Unavailable Beam Faheem THOMAS Attending Unavailable Marcos Lovelace Referring Unavailable Marcos Lovelace Attending Unavailable Rosas VSC, Jess Primary Care Unavailable Terrell Quiles Attending Unavailable Terrell Quiles Referring Unavailable Rosas VSC, Jess Primary Care Unavailable Tom Medina Attending Unavailable Rosas VSC, Jess Primary Care Unavailable Koram, Joi Nicolasa Admitting Unavailable Marcos Lovelace Attending Unavailable Rosas VSC, Jess Primary Care Unavailable Chucky Maya Referring Unavailable Nilo Hill Consulting Unavailable AdeRadha kelly Consulting Unavailable Hinduserafin, Mariana Consulting Unavailable Hakeem Jie Consulting Unavailable Mariama, Ashanti Consulting Unavailable Christiano Garcia Consulting Unavailable Mary Walls Consulting Unavailable Washington Masters Consulting Unavailable Abhay Sin Consulting Unavailable Иван Rutledge Consulting Unavailable Renee Beck Consulting Unavailable Tigre Masterson Consulting Unavailable Hanna Hammond Consulting Unavailable Bonnie Vicente Consulting Unavailable Lizzie Iveyd Donovan Consulting UnavailAlvin Singh Consulting Unavailable Ozzie Gibbs Consulting Unavailable Sabas Piedra Consulting Unavailable Kaylan Paulino Consulting Unavailable Ravi Fonseca Consulting Unavailable Koram, Joi Nicolasa Consulting Unavailable Marcos Lovelace Consulting Unavailable Koram, Joi Nicolasa Attending Unavailable Rosas VSC, Jess Referring Unavailable Rosas VSC, Jess Primary Care Unavailable Terrell Quiles Attending Unavailable Rosas VSC, Jess Primary Care Unavailable Rosas VSC, Jess Attending Unavailable Rosas VSC, Jess Referring Unavailable Rosas VSC, Jess Primary Care Unavailable Terrell Quiles Attending Unavailable Terrell Quiles Referring Unavailable Rosas VSC, Jess Primary Care Unavailable Terrell Quiles Attending Unavailable Terrell Quiles Referring Unavailable Rosas VSC, Jess Primary Care Unavailable Terrell Quiles Attending Unavailable Etta Terrell Referring Unavailable Rosas VSC, Jess Primary Care Unavailable Beam VSCFaheem Attending Unavailable EDE, CIERA Referring Unavailable OLEGHE, EFEWONGBE B Primary Care Unavailable EDE, CIERA Attending Unavailable EDE, CIERA Referring Unavailable OLEGHE, EFEWONGBE B Primary Care Unavailable EDE, CIERA Attending Unavailable RAMIREZ THOMAS Referring Unavailable OLEGHE, EFEWONGBE B Primary Care Unavailable Orlando'BELIACELIA BEARD Attending Unavailable CLIFF, AV Referring Unavailable ROSAS, JESS Primary Care Unavailable Orlando'BELIACELIA BEARD Attending Unavailable CLIFF, AV Referring Unavailable ROSAS, JESS Primary Care Unavailable EDE, CIERA Referring Unavailable OLEGHE, EFEWONGBE B Primary Care Unavailable Allergies Allergy Classification Reported Allergen(s) Allergy Type Date of Onset Reaction(s) Facility Corticosteroids (1 source) predniSONE Drug Allergy 04-24-2015 [facility] Opioid Agonists (1 source) oxyCODONE Drug Allergy 04-24-2015 [facility] (20 sources) oxyCODONE; Translations: [OXYCODONE] Drug Allergy 04-24-2015 [facility] Work Phone: (20 sources) predniSONE; Translations: [PREDNISONE] Drug Allergy 04-24-2015 [facility] Work Phone: (1 source) oxyCODONE Drug Allergy 08-29-2024 [facility] (1 source) predniSONE Drug Allergy 08-29-2024 [facility] Medications Current Medications Medication Drug Class(es) Dates Sig (Normalized) Sig (Original) acetaminophen 500 mg oral tablet (20 sources) Start: 11-22-2020 take 2 tablets by mouth twice daily as needed for pain Acetaminophen (Tylenol Extra Strength) 500 mg tablet Active 1000 mg PO TWICE A DAY as needed for fever or pain November 22, 2020 12:00am Start: 10-29-2020 take 2 tablets by mo [facility] every six hours as needed acetaminophen (TYLENOL) 500 mg tablet Take 2 tablets by mouth every 6 hours as needed for pain. 10/29/2020 Active Start: 01-04-2020 End: 07-19-2020 Acetaminophen 325 MG tablet Discontinued 650 mg PO EVERY 6 HOURS NEEDED as needed for Pain Score 1-10/Temp > 100.7 F 0 January 04, 2020 1:00am July 19, 2020 9:12am Start: 01-04-2020 End: 07-19-2020 take 650 mg by mouth every six hours as needed Acetaminophen Discontinued 650 MG PO EVERY 6 HOURS NEEDED January 04, 2020 12:00am July 19, 2020 8:12am Comment on above: Take 2 tablets by mo uth every 6 hours as needed for pain. [...] mg PO DAILY November 22, 2020 12:00am [employer] Start: 11-22-2020 Aspirin (Adult Low Dose Aspirin) [...] Take 1 tablet by pete once daily. busPIRone hydrochloride 5 mg oral tablet (6 sources) Start: 07-06-19 take 1 tablet by mouth three times daily Buspirone 5 mg tablet Active 5 mg PO THREE TIMES A DAY July 05, 2024 12:00am cholecalciferol 1.25 mg oral capsule (6 sources) Vitamin D Start: 07-06-19 25 take 1 capsule by mouth every week Cholecalciferol (Vitamin D3) 1,250 mcg (50,000 unit) capsule Active 1250 ug PO EVERY WEEK 05 26July 05, 2024 12:00am For vitamin D deficiency cholecalciferol, vitamin D3, (VITAMIN D3 ORAL) (20 sources) cholecalciferol, vitamin D3, (VITAMIN D3 ORAL) [...] TWICE A DAY as needed for vertigo 10 September 12, 2020 12:00am September 23, 2020 3:21pm Start: 01-09-2017 End: 03-16-2018 take 1 tablet by mouth three times daily as needed Diazepam 2 MG tablet Discontinued 2 mg PO 3 TIMES DAILY NEEDED as needed for Vertigo 10 January 09, 2017 1:00am March 16, 2018 1:19pm esomeprazole 40 mg delayed release oral capsule (15 sources) Proton Pump Inhibitor Start: 05-14-2024 take 1 capsule by mouth once daily esomeprazole (NEXIUM) 40 mg capsule Take 1 capsule by mouth once daily. 05/14/2024 Active ezetimibe 10 mg oral tablet (20 sources) Dietary Cholesterol Absorption Inhibitor Start: 10-14-2020 End: 12-03-2024 take 1 tablet by mouth once daily ezetimibe (ZETIA) 10 mg tablet Indications: Dyslipidemia Take 1 tablet by mouth once daily. 90 tablet 1 06/06/2024 12/03/2024 Active Comment on above: Take 1 tablet by pete th once daily. 24 hr isosorbide mononitrate 30 mg extended release oral tablet (20 sources) Nitrate Vasodilator Start: 09-03-2021 End: 01-10-2024 take 1 tablet by mouth once daily isosorbide mononitrate ER (IMDUR) 30 mg 24 hr tablet Indications: Primary hypertension Take 1 tablet by mouth once daily 90 tablet 3 01/10/2024 Active Comment on above: Take 1 tablet by pete once daily. Take 1 tablet by pete th once daily loratadine 10 mg oral tablet (20 sources) Start: 07-05-2024 take 1 tablet by mouth once daily in the morning Loratadine 10 mg tablet Active 10 mg PO EVERY MORNING 30 July 05, 2024 12:00am Start: 12-25-2019 End: 01-17-2020 take 1 tablet by mouth once daily as needed for dizziness Loratadine 10 mg tablet Discontinued 10 mg PO DAILY as needed for dizziness or vertigo 30 December 25, 2019 5:33pm January 17, 2020 11:57am Start: 08-03-2019 End: 12-12-2019 take 1 tablet by mouth once daily as needed for dizziness Loratadine 10 mg tablet Discontinued 10 mg PO DAILY as needed for dizziness or vertigo 30 August 03, 2019 12:00am December 12, 2019 3:40pm LORazepam 1 mg oral tablet (1 source) Benzodiazepine Start: 09-08-2024 Lorazepam 1 mg tablet Active 1 mg PO ONCE 1 September 08, 2024 12:00am Anxiety Anxiety disorder, unspecified To be taken 30 minutes prior to MRI. meclizine hydrochloride 50 mg oral tablet (20 sources) Antiemetic Start: 08-14-2022 take 1 tablet by mouth twice daily as needed for dizziness Meclizine 50 mg tablet Active 50 mg PO TWICE A DAY as needed for dizziness 30 August 14, 2022 4:22pm Start: 09-12-2020 End: 09-23-2020 take 25-50 mg by mouth twice daily as needed for dizziness Meclizine 25 mg tablet Discontinued 25 - 50 mg PO TWICE A DAY as needed for dizziness 30 22 August 22nd, 2021 12:00am September 23, 2020 4:30pm Start: 05-05-2019 End: 08-03-2019 take 1 tablet by mouth twice daily as needed Meclizine 25 mg tablet Discontinued 25 mg PO TWICE A DAY as needed for vertigo 23 03May 05, 2019 12:00am August 03, 2019 5:04pm metoprolol tartrate 25 mg oral tablet (20 sources) beta-Adrenergic [place] Start: 05-25-2024 take 1 tablet by mouth twice daily metoprolol tartrate, short acting, (LOPRESSOR) 25 mg tablet Indications: Primary hypertension Take 1 tablet by mouth twice daily 180 tablet 07/13/2024 Active Start: 02-23-2023 End: 04-10-2024 take 1 tablet [...] 1 tablet by pete th twice daily nabumetone 500 mg oral tablet (20 sources) Nonsteroidal Anti-inflammatory Drug Start: 09-13-19 End: 12-25-19 nabumetone (RELAFEN) 500 mg tablet Take by mouth. 09/12/2020 Active Comment on above: Take by mouth. pantoprazole 20 mg delayed release oral tablet (20 sources) Proton Pump Inhibitor Start: 12-25-19 End: 07-08-19 take 1 tablet by mouth once daily pantoprazole DR (PROTONIX) 20 mg tablet Take 20 mg by mouth once daily. 12/24/2020 Active Comment on above: Take 20 mg by mouth once daily. perflutren lipid microspheres 1.3 mL in NaCl (PF) 0.9% 10 mL injection (DEFINITY) (14 sources) Start: 01-16-20 End: 04-16-19 perflutren lipid microspheres 1.3 mL in NaCl (PF) 0.9% 10 mL injection (DEFINITY) rosuvastatin calcium 40 mg oral tablet (20 sources) HMG-CoA Reductase Inhibitor Start: 05-26-19 take 1 tablet by mouth at bedtime Rosuvastatin 40 mg tablet Active 40 mg PO AT BEDTIME May 25, 2024 12:00am cholesterol Start: 10-14-2020 End: 05-25-2024 take 1 tablet by mouth once daily at bedtime rosuvastatin (CRESTOR) 20 mg tablet Indications: Dyslipidemia TAKE 1 TABLET BY MOUTH ONCE DAILY AT BEDTIME 30 tablet 03/22/2024 Active Comment on above: Take 1 tablet by pete th daily at bedtime. TAKE 1 TABLET BY PETE TH EVERY DAY AT BEDTIME 125 ml sodium chloride 9 mg/ml prefilled syringe (14 sources) Start: 1 End: 3 sodium chloride 0.9 % (flush) 10 mL (BD POSIFLUSH) tamsulosin hydrochloride 0.4 mg oral capsule (9 sources) alpha-Adrenergic [place] Start: 5 take 1 capsule by mouth at bedtime Tamsulosin 0.4 mg capsule Active 0.4 mg PO AT BEDTIME May 25, 2024 12:00am prostate Completed/Discontinued Medications Medication Drug Class(es) Dates Sig (Normalized) Sig (Original) acetaminophen 325 mg / HYDROcodone bitartrate 5 mg oral tablet (20 sources) Opioid Agonist Start: 11-12-2021 End: 11-19-2021 Hydrocodone-Acetami nophen 5-325 mg tablet Discontinued 1 {tbl} PO TWICE A DAY as needed for pain 14 7 0 November 12, 2021 November 18, 2021 12:00am November 19, 2021 12:10am Chronic low back pain Low back pain Other chronic pain Start: 11-12-2021 End: 11-19-2021 take 1 tablet by mouth twice daily Hydrocodone-Acetaminophen Discontinued 1 TABLET PO TWICE A DAY 14 7 November 12, 2021 November 18, 2021 11:10pm Start: 11-22-2020 End: 10-15-2021 Hydrocodone-Acetaminophen 5- 325 mg tablet Discontinued 1 {tbl} PO TWICE A DAY as needed for pain 14 7 0 November 22, 2020 November 28, 2020 12:00am November 29, 2020 12:01am Postoperative pain Other acute postprocedural pain Start: 11-22-2020 End: 11-29-2020 take 1 tablet by mouth twice daily Hydrocodone-Acetaminophen Discontinued 1 TABLET PO TWICE A DAY 14 7 November 22, 2020 November 28, 2020 11:01pm Comment on above: Take 1 tablet by pete th twice daily as needed. acetaminophen 325 mg / oxyCODONE hydrochloride 5 mg oral tablet (20 sources) Opioid Agonist Start: 07-03-2022 End: 05-25-2024 Oxycodone-Acetaminophen (Percocet) 5-325 mg tablet Discontinued 1 {tbl} PO EVERY 6 HOURS as needed for pain 10 3 0 July 03, 2022 May 25, 2024 1:03pm Arthritis Unspecified osteoarthritis, unspecified site Start: 09-27-2020 End: 10-04-2020 Oxycodone-Acetaminophen 5-32 5 mg tablet Discontinued 1 {tbl} PO TWICE A DAY 14 7 0 September 27, 2020 October 03, 2020 12:00am October 04, 2020 12:01am Chronic low back pain Low back pain Other chronic pain Start: 09-27-2020 End: 10-04-2020 take 1 tablet by mouth twice daily Oxycodone-Acetaminophen Discontinued 1 TABLET PO TWICE A DAY 14 7 September 27, 2020 October 03, 2020 11:01pm Start: 09-27-2020 End: 10-15-2021 oxyCODONE-acetaminophen (PER COCET) 5-325 mg tablet Start: 09-23-2020 End: 09-27-2020 Oxycodone-Acetaminophen 5-32 5 mg tablet Discontinued 2 {tbl} PO DAILY 0 September 23, 2020 12:00am September 27, 2020 2:58pm Start: 09-23-2020 End: 09-27-2020 take 2 tablets by mouth once daily Oxycodone-Acetaminophen Discontinued 2 TABLET PO DAILY September 22, 2020 11:00pm September 27, 2020 1:58pm Start: 09-16-2020 End: 09-23-2020 Oxycodone-Acetaminophen (Per cocet) 5-325 mg tablet Discontinued 1 {tbl} PO TWICE A DAY as needed for pain 14 7 0 September 16, 2020 September 22, 2020 12:00am September 23, 2020 12:01am Chronic low back pain Low back pain Other chronic pain [id number] actuat albuterol 0.09 mg/actuat metered dose inhaler (20 sources) beta2-Adrenergic Agonist Start: 07-14-2020 End: 05-14-2022 Albuterol Sulfate (Ventolin Hfa) 90 mcg/actuation HFA aerosol inhaler Discontinued 2 NMA INHALATION EVERY 4 HOURS NEEDED as needed for Wheezing 02 27September 02, 2020 2:34pm May 14, 2022 3:02pm [...] in structed. amLODIPine 10 mg oral tablet (17 sources) Dihydropyridine Calcium Channel [place] Start: 03-24-19 End: 05-05-19 take 1 tablet by mouth once daily Amlodipine 10 mg tablet Discontinued 10 mg PO DAILY 90 3 March 24, 2019 1:00am May 05, 2019 3:57pm 24 hr buPROPion hydrochloride 150 mg extended release oral tablet (20 sources) Aminoketone Start: 08-03-19 End: 08-10-19 take 1 tablet by mouth once daily in the morning Bupropion Hcl 150 mg tablet extended release 24 hr Discontinued 150 mg PO EVERY MORNING 7 7 0 August 03, 2019 12:00am August 09, 2019 12:00am August 10, 2019 12:02am Start: 10-09-2017 End: 08-03-2019 take 1 tablet by mouth once daily Bupropion Hcl 300 mg tablet extended release 24 hr Discontinued 300 mg PO DAILY 90 August 18, 2018 5:28pm August 03, 2019 10:54am citalopram 40 mg oral tablet (20 sources) Serotonin Reuptake Inhibitor Start: 02-13-2020 End: 04-22-2021 take 1 tablet by mouth once daily Citalopram 40 mg tablet Discontinued 40 mg PO DAILY 30 February 22, 2020 2:00pm June 11, 2020 4:49pm Start: 10-12-2019 End: 02-13-2020 take 1 tablet by mouth once daily Citalopram 20 mg tablet Discontinued 20 mg PO DAILY 30 December 12, 2019 6:15pm February 13, 2020 6:55pm Unspecified osteoarthritis, unspecified site Start: 09-14-2019 End: 10-12-2019 take 1 tablet by mouth once daily Citalopram 10 mg tablet Discontinued 10 mg PO DAILY 30 September 14, 2019 12:00am October 12, 2019 7:36pm take one tablet daily; discontinue duloxetine prior to initiation of citalopram Comment on above: Take 40 mg by mouth once daily. diclofenac sodium 75 mg delayed release oral tablet (17 sources) Nonsteroidal Anti-inflammatory Drug Start: End: take 1 tablet by mouth twice daily as needed for pain Diclofenac Sodium 75 mg tablet,delayed release (DR/EC) Discontinued 75 mg PO TWICE A DAY as needed for pain 60 2 December 12, 2019 12:00am February 13, 2020 [...] DAY as needed for dizziness or vertigo 21 January 17, 2020 1:00am February 26, 2020 3:17pm DULoxetine 30 mg delayed release oral capsule (20 sources) Serotonin and Norepinephrine Reuptake Inhibitor Start: 08-03-2019 End: 08-10-2019 take 1 capsule by mouth once daily Duloxetine 30 mg capsule,delayed release(DR/EC) Discontinued 30 mg PO DAILY 7 7 0 August 03, 2019 12:00am August 09, 2019 12:00am August 10, 2019 12:02am Start: 08-03-2019 End: 09-14-2019 take 1 capsule by mouth once daily Duloxetine 60 mg capsule,delayed release(DR/EC) Discontinued 60 mg PO DAILY 30 1 August 03, 2019 12:00am September 14, 2019 6:06pm flurbiprofen 100 mg oral tablet (17 sources) Nonsteroidal Anti-inflammatory Drug Start: 02-13-2020 End: 02-26-2020 take 1 tablet by mouth three times daily as needed for pain Flurbiprofen 100 mg tablet Discontinued 100 mg PO THREE TIMES A DAY as needed for pain 90 February 13, 2020 1:00am February 26, 2020 3:17pm gabapentin 100 mg oral capsule (20 sources) Anti-epileptic Agent Start: 11-22-2020 End: 10-15-2021 take 1 capsule by mouth twice daily Gabapentin 100 mg capsule Discontinued 100 mg PO TWICE A DAY November 22, 2020 12:00am August 29, 2021 10:18am Start: 11-05-2020 End: 10-05-2021 take 3 capsules by mouth three times [...] mg tablet Discontinued 1 {tbl} PO DAILY 90 August 24, 2018 12:00am March 24, 2019 [...] 12:53pm hydrOXYzine hydrochloride 25 mg oral tablet (17 sources) Antihistamine Start: 01-02-2020 End: 02-13-2020 take 1 tablet by mouth twice daily as needed for dizziness Hydroxyzine Hcl 25 mg tablet Discontinued 25 mg PO TWICE A DAY as needed for dizziness 14 0 January 02, 2020 1:00am February 13, 2020 6:55pm icosapent ethyl 1000 mg oral capsule (17 sources) Start: 09-23-2018 End: 05-05-2019 Icosapent Ethyl (Vascepa) 1 gram capsule Discontinued 2 g PO TWICE A DAY 360 3 September 23, 2018 12:00am May 05, 2019 3:59pm Insta Flex (17 sources) Start: 08-18-2018 End: 05-05-2019 Insta Flex Discontinued PO 0 August 18, 2018 12:00am May 05, 2019 3:59pm Start: 08-18-2018 End: 05-05-2019 Insta Flex Discontinued PO J [facility] 2018 11:00pm May 05, 2019 2:59pm Start: 08-18-2018 End: 05-05-2019 Insta Flex Discontinued PO J [facility] 2018 12:00am May 05, 2019 3:59pm lansoprazole 15 mg delayed release oral capsule (20 sources) Proton Pump Inhibitor Start: 03-27-2019 End: 05-05-2019 take 1 capsule by mouth once daily Lansoprazole (Prevacid) 15 mg capsule,delayed release(DR/EC) Discontinued 15 mg PO DAILY 90 2 March 28, 2019 9:56am May 05, 2019 [...] midsternal chest incision. Remove after 12 hrs. losartan potassium 50 mg oral tablet (20 sources) Angiotensin 2 Receptor [place] Start: 05-25-2024 End: 07-05-2024 take 1 tablet by mouth once daily Losartan 50 mg tablet Discontinued 50 mg PO DAILY May 25, 2024 12:00am July 05, 2024 8:20am blood pressure Start: 05-05-2019 End: 11-22-2020 take 1 tablet by mouth once daily Losartan 50 mg tablet Discontinued 0 .ROUTE .COMPLEX 90 0 July 23, 2020 2:55pm November 22, 2020 3:12pm Take 1 tablet by mouth once daily Magnesium (17 sources) Start: 11-22-2020 End: 08-29-2021 take 2 [...] tablet (20 sources) Nonsteroidal Anti-inflammatory Drug Start: 0 End: 0 take 1 tablet by mouth once daily as needed for pain Meloxicam 15 mg tablet Discontinued 15 mg PO DAILY as needed for pain 30 2 October 12, 2019 12:00am December 12, 2019 6:15pm Unspecified osteoarthritis, unspecified site Start: 09-14-2019 End: 10-12-2019 take 1 tablet by mouth twice daily as needed for pain Meloxicam 7.5 mg tablet Discontinued 7.5 mg PO TWICE A DAY as needed for joint pain 60 1 September 14, 2019 12:00am October 12, 2019 7:36pm Start: 03-24-2019 End: 05-05-2019 take 1 tablet by mouth once daily as needed for pain Meloxicam (Mobic) 15 mg tablet Discontinued 15 mg PO DAILY as needed for pain 30 3 March 24, 2019 1:00am May 05, 2019 3:59pm metaxalone 800 mg oral tablet (12 sources) Start: 07-03-2022 End: 05-25-2024 take 1 tablet by mouth three times daily Metaxalone 800 mg tablet Discontinued 800 mg PO THREE TIMES A DAY 21 7 0 July 03, 2022 12:00am May 25, 2024 1:03pm methylPREDNISolone 4 mg oral tablet (12 sources) Corticosteroid Start: 07-03-2022 End: 05-25-2024 Methylprednisolone 4 mg tablets,dose pack Discontinued 0 .ROUTE .COMPLEX July 03, 2022 12:00am May 25, 2024 12:24pm 4 mg orally taper Last dose 07/04 Multivitamin preparation (7 sources) Start: 02-24-2021 End: 08-29-2021 take 1 tablet by mouth once daily Multivitamin Discontinued 1 TABLET PO DAILY February 24, 2021 12:00am August 29, 2021 9:19am Start: 02-24-2021 End: 08-29-2021 take 1 tablet by mouth once daily Multivitamin Discontinued 1 TABLET PO DAILY February 24, 2021 1:00am August 29, 2021 10:19am Multivitamin tablet (10 sources) Start: 02-24-2021 End: 08-29-2021 Multivitamin tablet Discontinued 1 {tbl} PO DAILY February 24, 2021 1:00am August 29, 2021 10:19am Mv,Ca,Buo-Ovjf-Cs-Lycope ne (Centrum Men) 8 mg iron- 200 mcg-600 mcg tablet (17 sources) Start: 05-05-2019 End: 12-12-2019 take 8 tablets by mouth once Mv,Ca,Dxe-Xvqz-Rc-Lycop nithin (Centrum Men) 8 mg iron- 200 mcg-600 mcg tablet Discontinued {tbl} PO May 05, 2019 12:00am December 12, 2019 3:40pm Start: 05-05-2019 End: 12-12-2019 Mv,Ca,Nsq-Suvi-Rd-Lycopene ( Centrum Men) 8 mg iron- 200 mcg-600 mcg tablet Discontinued TABLET PO May 04, 2019 11:00pm December 12, 2019 2:40pm Start: 05-05-2019 End: 12-12-2019 Mv,Ca,Msf-Adhq-Ot-Lycopene ( Centrum Men) 8 mg iron- 200 mcg-600 mcg tablet Discontinued TABLET PO May 05, 2019 12:00am December 12, 2019 3:40pm naproxen 500 mg oral tablet (17 sources) Nonsteroidal Anti-inflammatory Drug Start: 10-09-2017 End: [...] 25, 2024 1:03pm Start: 11-26-2020 End: 04-22-2021 omeprazole (PRILOSEC) 40 mg capsule Take 40 mg by mouth as needed. 11/26/2020 Active Start: 09-23-2020 End: 11-22-2020 take 1 capsule by mouth once daily Omeprazole 40 mg capsule,delayed release(DR/EC) Discontinued 40 mg PO DAILY 30 3 September 23, 2020 4:26pm November 22, 2020 [...] capsule,delayed release(DR/EC) Discontinued 40 mg PO DAILY 30 4 June 11, 2020 12:00am July 19, 2020 9:12am Start: 09-14-2019 End: 06-11-2020 take 1 capsule by mouth once daily Omeprazole 20 mg capsule,delayed release(DR/EC) Discontinued 20 mg PO DAILY 30 February 13, 2020 6:56pm June 11, 2020 4:48pm Unspecified osteoarthritis, unspecified site dyspepsia oxyCODONE hydrochloride 5 mg oral tablet (11 sources) Opioid Agonist Start: 08-25-2022 End: 05-25-2024 take 1 tablet by mouth every six hours as needed for pain Oxycodone 5 mg tablet Discontinued 5 mg PO EVERY 6 HOURS as needed for pain 10 3 0 August 25, 2022 May 25, 2024 1:03pm Chest pain Chest pain, unspecified microencapsulated potassium chloride 20 meq extended release oral tablet (17 sources) Start: 11-04-2018 End: 03-24-2019 take 1 tablet by mouth once daily Potassium Chloride 20 mEq tablet,ER particles/crystal s Discontinued 20 meq PO DAILY 30 November 04, 2018 12:00am March 24, 2019 8:56am predniSONE 10 mg oral tablet (9 sources) Start: 12-28-2019 End: 10-15-2021 predniSONE (DELTASONE) 10 mg tablet Take by mouth. 0 12/28/2019 10/15/2021 Discontinued Comment on above: Take by mouth. regadenoson 0.4 mg injection (LEXISCAN) (1 source) Start: 09-08-2021 End: 09-08-2021 regadenoson 0.4 mg injection (LEXISCAN) 72 hr scopolamine 0.0139 mg/hr transdermal system (8 sources) Anticholinergic Start: 05-26-2024 End: 07-05-2024 Scopolamine Base 1 mg over 3 days Patch 3 Day Discontinued 1 NMA TD Every 3 Days 5 14 0 May 26, 2024 12:00am July 05, 2024 8:21am sertraline 50 mg oral tablet (20 sources) Serotonin Reuptake Inhibitor Start: 05-05-2019 End: 08-03-2019 take 1 tablet by mouth once daily Sertraline 50 mg tablet Discontinued 50 mg PO DAILY 90 May 05, 2019 12:00am August 03, 2019 10:54am Start: 08-18-2018 End: 03-24-2019 take 1 tablet by mouth once daily Sertraline 25 mg tablet Discontinued 0 .ROUTE .COMPLEX 30 December 14, 2018 1:44pm March 24, 2019 8:56am TAKE 1 TABLET BY MOUTH ONCE DAILY traMADol hydrochloride 50 mg oral tablet (17 sources) Opioid Agonist Start: 01-09-2017 End: 03-16-2018 Tramadol 50 MG tablet Discontinued 1 {tbl} PO THREE TIMES A DAY as needed for Pain January 09, 2017 1:00am March 16, 2018 1:18pm traZODone hydrochloride 50 mg oral tablet (17 sources) Serotonin Reuptake Inhibitor Start: 03-24-2019 End: 05-05-2019 take 1 tablet by mouth at bedtime Trazodone 50 mg tablet Discontinued 50 mg PO AT BEDTIME 90 March 24, 2019 1:00am May 05, 2019 [...] Triamterene-Hydrochlorothiazid Discontin ued 1 CAP PO DAILY 90 August 18, 2018 4:28pm August 23, 2018 [...] 2018 4:29pm Triamterene-Hydrochlorothiaz id 50-25 mg capsule (20 sources) Start: 08-23-2018 End: 08-24-2018 Triamterene-Hydrochlorothiaz id 50-25 mg capsule Discontinued 1 NMA PO DAILY 90 3 August 23, 2018 4:42pm August 24, 2018 12:53pm Start: 08-23-2018 End: 08-24-2018 Triamterene-Hydrochlorothiaz id 50-25 mg capsule Discontinued 1 NMA PO DAILY 90 August 23, 2018 4:42pm August 24, 2018 12:53pm Start: 08-18-2018 End: 08-23-2018 Triamterene-Hydrochlorothiaz id 50-25 mg capsule Discontinued 1 NMA PO DAILY 90 3 August 18, 2018 5:28pm August 23, 2018 4:42pm Start: 08-18-2018 End: 08-23-2018 Triamterene-Hydrochlorothiaz id 50-25 mg capsule Discontinued 1 NMA PO DAILY 90 August 18, 2018 5:28pm August 23, 2018 4:42pm Start: 08-18-2018 End: 08-18-2018 Triamterene-Hydrochlorothiaz id 50-25 mg capsule Discontinued 1 NMA PO DAILY August 18, 2018 12:00am August 18, 2018 5:29pm Problems Active Problems Problem Classification Problem Date Documented Date Episodic/Chronic Administrative/social admission (17 sources) Patient encounter status; Translations: [Persons encountering health services in other specified circumstances] 02-26-2020 Episodic Anxiety disorders (20 sources) Anxiety; Translations: [Anxiety disorder, unspecified] Onset: 01-14-2021 01-14-2021 Chronic Coronary atherosclerosis and other heart disease (20 sources) Stable angina due to coronary arteriosclerosis; Translations: [Atherosclerotic heart disease of [place] coronary artery with other forms of angina pectoris] Onset: 10-22-2020 10-29-2020 Chronic Disorders of lipid metabolism (20 sources) Dyslipidemia; Translations: [Hyperlipidemia, unspecified] Onset: 01-14-2021 Chronic E Codes: Fall (1 source) Unspecified fall, initial encounter; Translations: [Fall, initial encounter] Onset: 06-09-2024 Episodic Esophageal disorders (18 sources) Gastroesophageal reflux disease; Translations: [Gastro-esophageal reflux [...] disorder] Onset: 06-09-2024 Episodic Hyperplasia of prostate (15 sources) Benign prostatic hyperplasia; Translations: [Benign prostatic hyperplasia without lower urinary tract symptoms] Chronic Malaise and fatigue (20 sources) Fatigue; Translations: [Chronic fatigue, unspecified] Onset: 10-05-2024 Chronic Malaise and fatigue (4 sources) Fatigue; Translations: [Other fatigue] Onset: 10-04-2024 08-03-2024 Episodic Mood disorders (20 sources) Depressive disorder; Translations: [Depressive disorder] Onset: 01-14-2021 01-14-2021 Chronic Nonspecific chest pain (20 sources) Precordial pain; Translations: [Precordial pain] Episodic Nutritional deficiencies (14 sources) Vitamin D deficiency; Translations: [Vitamin D deficiency, unspecified] Onset: 10-05-2024 07-26-2024 Chronic Osteoarthritis (20 sources) Arthritis; Translations: [Unspecified osteoarthritis, unspecified site] Onset: 01-14-2021 01-14-2021 Chronic Other circulatory disease (8 sources) Disorder of carotid artery; Translations: [Disorder of arteries and arterioles, unspecified] 05-25-2024 Chronic Other circulatory disease (11 sources) H/O: heart disorder; Translations: [Personal history of other diseases of the circulatory system] 09-02-2022 Episodic Other connective tissue disease (12 sources) Spasm; Translations: [Other muscle spasm] 07-03-2022 Episodic Other diseases of kidney and ureters (15 sources) Renal mass; Translations: [Other specified disorders of kidney and ureter] 10-01-2021 Chronic Other diseases of kidney and ureters (2 sources) Other specified disorders of kidney and ureter; Translations: [Unspecified disorder of kidney and ureter] Chronic Other endocrine disorders (1 source) Testicular hypofunction; Translations: [Testicular hypofunction] Onset: 05-22-2024 Chronic Other lower respiratory disease (6 sources) Dyspnea on exertion; Translations: [Other forms of dyspnea] Episodic Other lower respiratory disease (15 sources) Computed tomography result abnormal; Translations: [Other nonspecific abnormal finding of lung field] 10-01-2021 Episodic Other lower respiratory disease (4 sources) Shortness of breath; Translations: [Shortness of breath] Episodic Other lower respiratory disease (1 source) Other forms of dyspnea; Translations: [SHAH (dyspnea on exertion)] Onset: 06-06-2024 Episodic Other male genital disorders (15 sources) Male erectile dysfunction, unspecified; Translations: [Erectile dysfunction] 05-14-2022 Chronic Other nervous system disorders (2 sources) Other chronic pain; Translations: [Chronic pain of both knees] Onset: 01-14-2021 Chronic Other nervous system disorders (1 source) Other symptoms and signs involving cognitive functions and awareness; Translations: [Cognitive impairment] Onset: 06-21-2024 Episodic Other nervous system disorders (12 sources) Paresthesia; Translations: [Paresthesia of skin] 07-05-2024 Episodic Other nervous system disorders (1 source) Paresthesia of skin; Translations: [Paresthesia of skin] Onset: 08-04-2024 Episodic Other non-traumatic joint disorders (1 source) Pain in unspecified shoulder; Translations: [Pain in joint, shoulder region] 07-03-2022 Episodic Residual codes; unclassified (20 sources) Sleep apnea; Translations: [Sleep apnea, unspecified] Onset: 01-14-2021 01-14-2021 Chronic Residual codes; unclassified (13 sources) Obstructive sleep apnea syndrome; Translations: [Obstructive sleep apnea (adult) (pediatric)] 05-15-2022 Chronic Residual codes; unclassified (13 sources) Hypersomnia; Translations: [Hypersomnia, unspecified] 05-14-2022 Chronic Residual codes; unclassified (2 sources) Hypersomnia, unspecified; Translations: [Hypersomnia, unspecified] 05-14-2022 Chronic Residual codes; unclassified (2 sources) Obstructive sleep apnea (adult) (pediatric); Translations: [Obstructive sleep apnea (adult)(pediatric)] 05-14-2022 Chronic Rheumatoid arthritis and related disease (2 sources) Rheumatoid arthritis, unspecified; Translations: [Rheumatoid arthritis] 05-14-2022 Chronic Spondylosis; intervertebral disc disorders; other back problems (20 sources) Backache; Translations: [Dorsalgia, unspecified] Onset: 01-14-2021 01-14-2021 Episodic Substance-related disorders (20 sources) Nicotine dependence; Translations: [Nicotine dependence, unspecified, uncomplicated] Onset: 10-26-2020 10-29-2020 Chronic Comment on above: current 1/2 ppd, 30 pack history Unclassified (2 sources) Low back pain, unspecified; Translations: [Low back pain, unspecified] Onset: 10-05-2024 Unclassified (1 source) Chronic bilateral low back pain without sciatica; Translations: [Chronic bilateral low back pain without sciatica] Onset: 01-14-2021 Viral infection (15 sources) Disease caused by 2019-nCoV; Translations: [COVID-19] Episodic Past or Other Problems Problem Classification Problem Date Documented Da te Episodic/Chronic Cardiac dysrhythmias (20 sources) Tachycardia; Translations: [Tachycardia, unspecified] Onset: 01-14-2021 01-14-2021 Episodic Conditions associated with dizziness or vertigo (20 sources) Vertigo; Translations: [Dizziness and giddiness] Onset: 01-14-2021 01-14-2021 Episodic Coronary atherosclerosis and other heart disease (1 source) Presence of aortocoronary bypass graft; Translations: [Hx of CABG] Onset: 02-05-2023 Episodic Immunizations and screening for infectious disease (20 sources) Anti-nuclear factor positive; Translations: [Other specified abnormal immunological findings in serum] Onset: 01-14-2021 01-14-2021 Episodic Other connective tissue [...] 01-14-2021 01-14-2021 Episodic Other nervous system disorders (5 sources) Impaired cognition; Translations: [Other symptoms and signs involving cognitive functions and awareness] Onset: 06-21-2024 06-21-2024 Episodic Other non-traumatic joint disorders (20 sources) Pain in unspecified knee; Translations: [Pain in joint, lower leg] Onset: 01-14-2021 01-14-2021 Episodic Other non-traumatic joint disorders (20 sources) Shoulder pain; Translations: [Pain in unspecified shoulder] Onset: 01-14-2021 01-14-2021 Episodic Other non-traumatic joint disorders (3 sources) Pain in right knee; Translations: [Pain in joint, lower leg] Onset: 01-14-2021 07-27-2023 Episodic Other non-traumatic joint disorders (1 source) Pain in left knee; Translations: [Chronic pain of both knees] Onset: 01-14-2021 Episodic Other screening for suspected conditions (not mental disorders or infectious disease) (1 source) Encounter for screening for malignant neoplasm of prostate; Translations: [Encounter for screening for malignant neoplasm of prostate] Onset: 03-21-2024 Episodic Residual codes; unclassified (1 source) Disorientation, unspecified; Translations: [Disorientation, unspecified] Onset: 06-26-2024 Episodic Unclassified (17 sources) history of broken right hip 08-18-2018 Results Test Name Value Interpretation Reference Range Facility [facility] 10-10-2024 CNPN Telephone (SLEWST) HAYDEN PENDLETON ([id number]) 1965 M Date Time Provider Department 10/10/24 NEUROLOGY PROVIDER SLEWST During your visit today, we recorded the following information about you: Kelton Hood LPN 10/10/2024 1:30 PM Signed TC to Pt. Spouse answered and stated they will call in and schedule new Pt appt. Gave spouse sleep scheduling #. Kelton Hood LPN Allergies As of Date: 10/10/2024 Noted Allergy Reaction OXYCOTIN (OXYCODONE) 04/24/2015 2 - Rash PREDNISONE 04/24/2015 5 - Intolerance Comments: flushing of skin-steriods Date Reviewed: 06/10/2024 Reviewed by: Av Coronado DO - Fully Assessed Prescriptions as of 10/10/2024 - metoprolol tartrate, short acting, (LOPRESSOR) 25 mg tablet Take 1 tablet by mouth twice daily - cyclobenzaprine (FLEXERIL) 5 mg tablet Take [...] as instructed. Problem List As Of Date 10/10/2024 Noted Resolved Stable angina pectoris due to [...] Vestibular hypofunction [H83.2X9] 07/03/2024 Encounter Status:Closed by KELTON HOOD on 10/10/24 Normal [facility] Testosterone, Total / Freeon 10-01-2024 TESTOSTER,FREE 7.60 ng/dL Normal 5.00-21.00 [facility] Comment on above: Order Comment: Y Performed By: #### L 3600.4030, L3100.3425 #### [facility] [address] [place], [place], [id number] TESTOSTER,TOTAL 297 ng/dL Normal 264-916 [facility] Comment on above: Order Comment: Y Result Comment: Adul t male reference interval is based on a population of healthy nonobese males (BMI <30) between 19 and 39 years old. Devan et.al. JCEM 2017,102;1351-7007. PMID: [id number]. Performed By: #### L 3600.4030, L3100.3425 #### [facility] [address] [place], [place], [id number] TESTOSTERONE,%F 2.56 Normal 1.50-4.20 [facility] Comment on above: Order Comment: Y Result Comment: Perf ormed at: [facility] [id number] Residential Worker: Loy Lopez PhD, Phone: [phone] Performed at: - [facility] [id number] Residential Worker: Sylvia Chapman MD, Phone: [phone] Performed By: #### L 3600.4030, [id number] #### [facility] [address] [place], [place], [id number] Absolute lymphocyte countOrd ered By: Faheem Hyde on 09-26-2024 Lymphocytes Auto (Unsp spec) [#/Vol] 2.82 10*3/uL 0.83-4.51 [facility] Absolute neutrophil countOrd ered By: bulun Beam on 09-26-2024 Neutrophils (Bld) [#/Vol] 3.5 10*3/uL 2.0-7.7 [facility] Anion gap in Serum or Plasma Ordered By: bulun Beam on 09-26-2024 Anion gap [Moles/Vol] 14 mmol/L 5- [facility] Automated lymphocyte count a s percentage of total leukocytesOrdered By: [facility] on 09-26-2024 Lymphocytes/100 WBC Auto (Unsp spec) 39.5 % 19- [facility] BUN/creatinine ratioOrdered By: [facility] on 09-26-2024 Urea nitrogen/Creatinine [Mass ratio] 15.1 mg/mg 10- [facility] Basophil percentageOrdered B y: Zebulun Beam on 09-26-2024 Basophils/100 WBC (Bld) 1.4 % High 0-1 [facility] Bilirubin, totalOrdered By: [facility] Beam on 09-26-2024 Bilirubin [Mass/Vol] 0.43 mg/dL 0.00-1.30 [facility] CBC W/Diff, Automatedon Absolute Lymph 2.82 X10 3/uL Normal 0.83-4.51 [facility] Comment on above: Performed By: #### L 100.0100, L500.4050, L503.6550, L506.1001, L3100.5310, L503.6030, L501.9520 #### [facility] [address] [place], [address] Absolute Neut 3.5 X10 3/uL Normal 2.0-7.7 [facility] Comment on above: Performed By: #### L 100.0100, L500.4050, L503.6550, L506.1001, L3100.5310, L503.6030, L501.9520 #### [facility] [address] [place], [address] Basophils/100 WBC (Bld) 1.4 % High 0-1 [facility] Comment on above: Performed By: #### L 100.0100, L500.4050, L503.6550, L506.1001, L3100.5310, L503.6030, L501.9520 #### [facility] [address] [place], [address] Eosinophils/100 WBC (Bld) 4.1 % Normal 0-5 [facility] Comment on above: Performed By: #### L 100.0100, L500.4050, L503.6550, L506.1001, L3100.5310, L503.6030, L501.9520 #### [facility] [address] [place], [address] Erythrocyte distribution width (RBC) [Ratio] 14.0 % Normal 11.6-14.6 [facility] Comment on above: Performed By: #### L 100.0100, L500.4050, L503.6550, L506.1001, L3100.5310, L503.6030, L501.9520 #### [facility] [address] [place], [address] Hematocrit (Bld) [Volume fraction] 42.1 % Normal 40-54 [facility] Comment on above: Performed By: #### L 100.0100, L500.4050, L503.6550, L506.1001, L3100.5310, L503.6030, L501.9520 #### [facility] [address] [place], [address] Hemoglobin (Bld) [Mass/Vol] 15.0 g/dL Normal 13.0-16.5 [facility] Comment on above: Performed By: #### L 100.0100, L500.4050, L503.6550, L506.1001, L3100.5310, L503.6030, L501.9520 #### [facility] [address] [place], [address] IG% 0.400 Normal 0.0-0.9 [facility] Comment on above: Result Comment: IG% - Immature Granulocytes (promyelocytes, myelocytes and metamyelocytes) > 1% indicates that a LEFT SHIFT is Present. Performed By: #### L 100.0100, L500.4050, L503.6550, L506.1001, L3100.5310, L503.6030, L501.9520 #### [facility] [address] [place], [address] Lymphocytes/100 WBC (Bld) 39.5 % Normal 19-41 [facility] Comment on above: Performed By: #### L 100.0100, L500.4050, L503.6550, L506.1001, L3100.5310, L503.6030, L501.9520 #### [facility] [address] [place], [address] MCH (RBC) [Entitic mass] 28.9 pg Normal 27.0-32.0 [facility] Comment on above: Performed By: #### L 100.0100, L500.4050, L503.6550, L506.1001, L3100.5310, L503.6030, L501.9520 #### [facility] [address] [place], [address] MCHC (RBC) [Mass/Vol] 35.6 g/dL Normal 32-36 [facility] Comment on above: Performed By: #### L 100.0100, L500.4050, L503.6550, L506.1001, L3100.5310, L503.6030, L501.9520 #### [facility] [address] [place], [address] MCV (RBC) [Entitic vol] 81.1 fL Normal 80-94 [facility] Comment on above: Performed By: #### L 100.0100, L500.4050, L503.6550, L506.1001, L3100.5310, L503.6030, L501.9520 #### [facility] [address] [place], [address] Monocytes/100 WBC (Bld) 6.0 % Normal 0-10 [facility] Comment on above: Performed By: #### L 100.0100, L500.4050, L503.6550, L506.1001, L3100.5310, L503.6030, L501.9520 #### [facility] [address] [place], [address] Neutrophils/100 WBC (Bld) 48.6 % Normal 47-70 [facility] Comment on above: Performed By: #### L 100.0100, L500.4050, L503.6550, L506.1001, L3100.5310, L503.6030, L501.9520 #### [facility] [address] [place], [address] Nucleated RBC (Bld) [#/Vol] 0 10*3/uL Normal 0-5 [facility] Comment on above: Performed By: #### L 100.0100, L500.4050, L503.6550, L506.1001, L3100.5310, L503.6030, L501.9520 #### [facility] [address] [place], [address] Platelet mean volume (Bld) [Entitic vol] 9.6 fL Normal 6.2-12.0 [facility] Comment on above: Performed By: #### L 100.0100, L500.4050, L503.6550, L506.1001, L3100.5310, L503.6030, L501.9520 #### [facility] [address] [place], [address] Platelets (Bld) [#/Vol] 304 10*3/uL Normal 150-450 [facility] Comment on above: Performed By: #### L 100.0100, L500.4050, L503.6550, L506.1001, L3100.5310, L503.6030, L501.9520 #### [facility] [address] [place], [address] RBC (Bld) [#/Vol] 5.19 10*6/uL Normal 4.6-6.2 [facility] Comment on above: Performed By: #### L 100.0100, L500.4050, L503.6550, L506.1001, L3100.5310, L503.6030, L501.9520 #### [facility] [address] [place], [address] RDW SD 40.5 fl Normal 35.1-43.9 [facility] Comment on above: Performed By: #### L 100.0100, L500.4050, L503.6550, L506.1001, L3100.5310, L503.6030, L501.9520 #### [facility] [address] [place], [address] WBC (Bld) [#/Vol] 7.1 10*3/uL Normal 4.4-11.0 [facility] Comment on above: Performed By: #### L 100.0100, L500.4050, L503.6550, L506.1001, L3100.5310, L503.6030, L501.9520 #### [facility] [address] [place], [address] Carbon dioxide, total [Moles /volume] in Central venous bloodOrdered By: Pablobulun Beam on 09-26-2024 CO2 [Moles/Vol] 22.8 mmol/L 21.0-32.0 [facility] Chloride assayOrdered By: Pablo Hyde on 09-26-2024 Chloride [Moles/Vol] 100 mmol/L 98-108 [facility] Comprehensive Metabolic Prof ilon 09-26-2024 Albumin [Mass/Vol] 4.7 g/dL Normal 3.5-5.0 [facility] Comment on above: Performed By: #### L 100.0100, L500.4050, L503.6550, L506.1001, L3100.5310, L503.6030, L501.9520 #### [facility] [address] [place], [address] Albumin/Globulin [Mass ratio] 1.8 {ratio} Normal 0.9-2.4 [facility] Comment on above: Performed By: #### L 100.0100, L500.4050, L503.6550, L506.1001, L3100.5310, L503.6030, L501.9520 #### [facility] [address] [place], [address] ALK PHOS 68 U/L Normal 40-129 [facility] Comment on above: Performed By: #### L 100.0100, L500.4050, L503.6550, L506.1001, L3100.5310, L503.6030, L501.9520 #### [facility] [address] [place], [address] ALT [Catalytic activity/Vol] 22 U/L Normal <=46 [facility] Comment on above: Performed By: #### L 100.0100, L500.4050, L503.6550, L506.1001, L3100.5310, L503.6030, L501.9520 #### [facility] [address] [place], [address] AST [Catalytic activity/Vol] 26 U/L Normal <=37 [facility] Comment on above: Performed By: #### L 100.0100, L500.4050, L503.6550, L506.1001, L3100.5310, L503.6030, L501.9520 #### [facility] [address] [place], [address] Bilirubin [Mass/Vol] 0.43 mg/dL Normal 0.00-1.30 [facility] Comment on above: Performed By: #### L 100.0100, L500.4050, L503.6550, L506.1001, L3100.5310, L503.6030, L501.9520 #### [facility] [address] [place], [address] BUN/CRE 15.1 RATIO Normal 10-20 [facility] Comment on above: Performed By: #### L 100.0100, L500.4050, L503.6550, L506.1001, L3100.5310, L503.6030, L501.9520 #### [facility] [address] [place], [address] Calcium [Mass/Vol] 9.6 mg/dL Normal 7.6-11.0 [facility] Comment on above: Performed By: #### L 100.0100, L500.4050, L503.6550, L506.1001, L3100.5310, L503.6030, L501.9520 #### [facility] [address] [place], [address] Chloride [Moles/Vol] 100 mmol/L Normal 98-108 [facility] Comment on above: Performed By: #### L 100.0100, L500.4050, L503.6550, L506.1001, L3100.5310, L503.6030, L501.9520 #### [facility] [address] [place], [address] CO2 [Moles/Vol] 22.8 mmol/L Normal 21.0-32.0 [facility] Comment on above: Performed By: #### L 100.0100, L500.4050, L503.6550, L506.1001, L3100.5310, L503.6030, L501.9520 #### [facility] [address] [place], [address] Creatinine [Mass/Vol] 1.25 mg/dL High 0.70-1.20 [facility] Comment on above: Performed By: #### L 100.0100, L500.4050, L503.6550, L506.1001, L3100.5310, L503.6030, L501.9520 #### [facility] [address] [place], [address] GAP 14 Normal 5-15 [facility] Comment on above: Performed By: #### L 100.0100, L500.4050, L503.6550, L506.1001, L3100.5310, L503.6030, L501.9520 #### [facility] [address] [place], [address] GFR/1.73 sq M.predicted among non-blacks MDRD (S/P/Bld) [Vol rate/Area] 67 mL/min/{1.73_m2} Normal >60 [facility] Comment on above: Result Comment: mL/m in/1.73m2 CKD-EPI Creatinine Equation (2020) Performed By: #### L 100.0100, L500.4050, L503.6550, L506.1001, L3100.5310, L503.6030, L501.9520 #### [facility] [address] [place], [address] Globulin (S) [Mass/Vol] 2.7 g/dL Normal 2.2-4.2 [facility] Comment on above: Performed By: #### L 100.0100, L500.4050, L503.6550, L506.1001, L3100.5310, L503.6030, L501.9520 #### [facility] [address] [place], [address] Glucose [Mass/Vol] 92 mg/dL Normal 70-99 [facility] Comment on above: Performed By: #### L 100.0100, L500.4050, L503.6550, L506.1001, L3100.5310, L503.6030, L501.9520 #### [facility] [address] [place], [address] Potassium [Moles/Vol] 4.0 mmol/L Normal 3.3-5.1 [facility] Comment on above: Performed By: #### L 100.0100, L500.4050, L503.6550, L506.1001, L3100.5310, L503.6030, L501.9520 #### [facility] [address] [place], [address] Sodium [Moles/Vol] 136 mmol/L Normal 133-145 [facility] Comment on above: Performed By: #### L 100.0100, L500.4050, L503.6550, L506.1001, L3100.5310, L503.6030, L501.9520 #### [facility] [address] [place], [address] T PROT 7.4 g/dL Normal 5.9-8.4 [facility] Comment on above: Performed By: #### L 100.0100, L500.4050, L503.6550, L506.1001, L3100.5310, L503.6030, L501.9520 #### [facility] [address] [place], [address] Urea nitrogen [Mass/Vol] 19 mg/dL Normal 4-19 [facility] Comment on above: Performed By: #### L 100.0100, L500.4050, L503.6550, L506.1001, L3100.5310, L503.6030, L501.9520 #### [facility] [address] [place], [address] Eosinophil percentageOrdered By: Jennifern Barrett on 09-26-2024 Eosinophils/100 WBC (Bld) 4.1 % 0-5 [facility] Erythrocyte distribution wid th ratioOrdered By: trudy Beam on 09-26-2024 Erythrocyte distribution width (RBC) [Ratio] 14.0 % 11.6-14.6 [facility] Erythrocyte distribution wid th standard deviationOrdered By: [facility] Hyde on 09-26-2024 Erythrocyte distribution width (RBC) [Ratio] 40.5 fl 35.1-43.9 [facility] Ferritinon 09-26-2024 Ferritin [Mass/Vol] 89 ng/mL Normal 37-417 [facility] Comment on above: Performed By: #### L 3600.4030, L3100.3425 #### [facility] [address] [facility] [place], [place], [address] Free testosterone percentage Ordered By: Faheem Hyde on 09-26-2024 Testosterone Free/Testosterone.total [Mass fraction] 2.56 % 1.50-4.20 [facility] Comment on above: Performed at: [address] [id number] Director: Loy Lopez PhD, Phone: [phone] at: - [facility] [id number] Director: Sylvia Chapman MD, Phone: [phone] Glomerular filtration rate ( GFR) estimation/1.73 sq m using serum, plasma, or whole bOrdered By: Faheem Hyde on 09-26-2024 GFR/1.73 sq M.predicted among non-blacks MDRD (S/P/Bld) [Vol rate/Area] 67 mL/min/{1.73_m2} >60 [facility] Comment on above: mL/min/1.73m2 CKD-EP I Creatinine Equation (2020) Hematocrit Auto (Bld) [Volum e fraction]Ordered By: Faheem Hyde on 09-26-2024 Hematocrit (Bld) [Volume fraction] 42.1 % 40-54 [facility] Hemoglobin measurementOrdere d By: Zebulun Beam on 09-26-2024 Hemoglobin (Bld) [Mass/Vol] 15.0 g/dL 13.0-16.5 [facility] Immature granulocytes/100 WB C Auto (Bld)Ordered By: bulun Beam on 09-26-2024 Immature granulocytes/100 WBC (Bld) 0.400 % 0.0-0.9 [facility] Comment on above: IG% - Immature Granu locytes (promyelocytes, myelocytes and metamyelocytes) > 1% indicates that a LEFT SHIFT is Present. Iron measurement (mass/mass) Ordered [facility]: [facility] Be[facility] on 09-26-2024 Iron (Unsp spec) [Mass/Mass] 47 ug/dL Low 65-175 [facility] Iron+Iron Binding Capacityon 09-26-2024 Iron [Mass/Vol] 47 ug/dL Low 65-175 [facility] Comment on above: Performed By: #### L 3600.4030, L3100.3425 #### [facility] [address] [place], [address] IRON SATURATION 14.0 Normal 9-55 [facility] Comment on above: Performed By: #### L 3600.4030, L3100.3425 #### [facility] [address] [place], [address] TIBC 332 ug/dL Normal 250-450 [facility] Comment on above: Performed By: #### L 3600.4030, L3100.3425 #### [facility] [address] [place], [address] UIBC 285 ug/dL Normal 228-428 [facility] Comment on above: Performed By: #### L 3600.4030, L3100.3425 #### [facility] [address] [place], [address] Laboratory - Chemistry and C hemistry - challengeOrdered By: Faheem Hyde on 09-26-2024 AST [Catalytic activity/Vol] 26 U/L <38 [facility] MCV (mean corpuscular volume ) determinationOrdered By: Faheem Beam on 09-26-2024 MCV (RBC) [Entitic vol] 81.1 fL 80-94 [facility] Mean corpuscular hemoglobin (MCH) determinationOrdered By: Faheem Beam on 09-26-2024 MCH (RBC) [Entitic mass] 28.9 pg 27.0-32.0 [facility] Mean corpuscular hemoglobin concentration (MCHC) determinationOrdered By: Jennifern Beam on 09-26-2024 MCHC (RBC) [Mass/Vol] 35.6 g/dL 32-36 [facility] Mean platelet volume determi nationOrdered By: Faheem Beam on 09-26-2024 Platelet mean volume (Bld) [Entitic vol] 9.6 fL 6.2-12.0 [facility] Monocyte percentageOrdered B y: Faheem Hyde on 09-26-2024 Monocytes/100 WBC (Bld) 6.0 % 0-10 [facility] Neutrophil percentageOrdered By: Faheem Beam on 09-26-2024 Neutrophils/100 WBC (Bld) 48.6 % 47-70 [facility] No Panel InformationOrdered By: Faheem Hyde on 09-26-2024 Unsaturated Iron Binding Capacity 285 ug/dL 228-428 [facility] Nucleated red blood cell per centageOrdered By: Faheem Beam on 09-26-2024 Nucleated RBC/100 WBC (Bld) [Ratio] 0 % 0-5 [facility] Platelet countOrdered By: Pablo Hyde on 09-26-2024 Platelets (Bld) [#/Vol] 304 10*3/uL 150-450 [facility] Potassium measurement (mass/ volume)Ordered By: Faheem Hyde on 09-26-2024 Potassium (Unsp spec) [Mass/Vol] 4.0 mmol/L 3.3-5.1 [facility] RBC Auto (Bld) [#/Vol]Ordere d By: Faheem Hyde on 09-26-2024 RBC (Bld) [#/Vol] 5.19 10*6/uL 4.6-6.2 [facility] Serum creatinine measurement (mass/volume)Ordered By: Faheem Hyde on 09-26-2024 Creatinine [Mass/Vol] 1.25 mg/dL High 0.70-1.20 [facility] Serum globulin measurementOr dered By: Faheem Hyde on 09-26-2024 Globulin (S) [Mass/Vol] 2.7 g/dL 2.2-4.2 [facility] Serum glucose measurement (m ass/volume)Ordered By: Faheem Hyde on 09-26-2024 Glucose [Mass/Vol] 92 mg/dL 70-99 [facility] Serum or plasma alanine hollins otransferase (ALT) measurementOrdered By: Faheem Hyde on 09-26-2024 ALT [Catalytic activity/Vol] 22 U/L <47 [facility] Serum or plasma albumin alexandrea urement (mass/volume)Ordered By: Faheem Hyde on 09-26-2024 Albumin [Mass/Vol] 4.7 g/dL 3.5-5.0 [facility] Serum or plasma albumin/glob ulin mass ratioOrdered By: Faheem Hyde on 09-26-2024 Albumin/Globulin [Mass ratio] 1.8 {ratio} 0.9-2.4 [facility] Serum or plasma alkaline emmanuel sphatase measurementOrdered By: Faheem Hyde on 09-26-2024 ALP [Catalytic activity/Vol] 68 U/L 40-129 [facility] Serum or plasma calcium alexandrea urement (mass/volume)Ordered By: Faheem Hyde on 09-26-2024 Calcium [Mass/Vol] 9.6 mg/dL 7.6-11.0 [facility] Serum or plasma ferritin celi surement (mass/volume)Ordered By: Faheem Hyde on 09-26-2024 Ferritin [Mass/Vol] 89 ng/mL 37-417 [facility] Serum or plasma free testost erone measurement (mass/volume)Ordered By: Faheem Hyde on 09-26-2024 Testosterone Free [Mass/Vol] 7.60 ng/dL 5.00-21.00 [facility] Serum or plasma iron saturat ion measurement (mass fraction)Ordered By: Nilalun Beam on 09-26-2024 Iron saturation [Mass fraction] 14.0 % 9-55 [facility] Serum or plasma urea nitroge n measurement (mass/volume)Ordered By: Nilalun Beam on 09-26-2024 Urea nitrogen [Mass/Vol] 19 mg/dL 4-19 [facility] Sodium levelOrdered By: Nila mckeon Beam on 09-26-2024 Sodium [Moles/Vol] 136 mmol/L 133-145 [facility] TSH DL <= 0.005 mIU/L QnOrde red By: Faheem Hyde on 09-26-2024 TSH Qn 1.860 uIU/mL 0.300-4.200 [facility] Testosterone, totalOrdered B y: Faheem Hyde on 09-26-2024 Testosterone [Mass/Vol] 297 ng/dL 264-916 [facility] Comment on above: Adult male reference interval is based on a population ofhealthy nonobese males (BMI <30) between 19 and 39 yearsold. jason Hartman.al. JCEM 2017,102;6474-6197. PMID:[id number]. Thyroid Stim Hormone (TSH)on 09-26-2024 TSH 1.860 uIU/mL Normal 0.300-4.200 [facility] Comment on above: Performed By: #### L 3600.4030, L3100.3425 #### [facility] [address] [place], [address] Total proteinOrdered By: Chevy Hyde on 09-26-2024 Protein [Mass/Vol] 7.4 g/dL 5.9-8.4 [facility] Vitamin D,25 Hydroxyon 09-26 Vitamin D 25-OH 74.2 ng/mL Normal 30-100 [facility] Comment on above: Result Comment: Lisa min D Status Deficiency: <20 ng/mL (50nmol/L) Insufficiency: 20-30 ng/mL (50-75 nmol/L) Sufficiency: 30-100 ng/mL (75-250 nmol/L) Toxicity: >100 ng/mL (>250 nmol/L) Performed By: #### L 3600.4030, L3100.3425 #### [facility] [address] [place], [address] White blood cell (WBC) count Ordered By: Faheem Hyde on 09-26-2024 WBC (Bld) [#/Vol] 7.1 10*3/uL 4.4-11.0 [facility] Neurology Visit Reporton Neurology Visit Report [facility] [address], [address] [place], [place] [address] OFFICE VISIT Date of Service: 08/29/24 MR#: [id number] Acct: [id number] Name: HAYDEN PENDLETON Rep #: [id number] : 1965 Provider: Dr. Terrell schmidt MD Age/Sex: 59/M [place] [facility] [place] Status: Signed HPI HPI Details: Interim History: Hayden returns for follow-up visit. He has a history of hypertension, microscopic colitis, rheumatoid arthritis (he did not tolerate Humira), sleep apnea (he did not tolerate CPAP), and coronary artery bypass surgery in October 2020. He has a history of vertigo. His [...] began in August 2020 which then later subsided. Over prior years, these episodes occurred sporadically and he has [...] loss lasting 3 hours that resolved spontaneously. Following his visit in April 2021 he had an extended period during which he did not have vertigo however on May 19, 2024 he awoke from sleep and experienced vertigo/disequilibriu m which worsened with movement and gait imbalance. The symptoms have been intermittent though they continued to occur frequently. He denied having lightheadedness. In April 2024, he had a period of nausea and vomiting lasting for weeks. He was treated with ondansetron. He reported having diffuse weakness. He had numbness in the hands and feet beginning in May 2024; this resolved after about 1 month. He had diplopia lasting about 2 weeks that began in May 2024. His vertigo/disequilibriu m resolved in July and he returned to work. Loratadine may have been of some benefit for his disequilibrium. Buspirone has been of some benefit for his anxiety. His memory difficulty has worsened since 2023. He has a tendency to forget conversations. He is no longer able to manage his own finances. 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 He has had prominent fatigue since 2022. He has a history of alcohol and marijuana abuse. He had consumed 3-4 drinks of liquor daily and had this pattern for years; he has reduced his alcohol use since March 2024 and now states that he has not consumed alcohol since his last visit in June 2024. He continues to smoke tobacco. He has depression, anxiety and easy irritability. Citalopram 40mg daily was of benefit. He currently takes buspirone and diazepam as needed. Duloxetine was not well tolerated. He previously took sertraline and bupropion ER. He reported having migraine headaches in the past but has not had any significant headaches since 2019. He has gastrointestinal reflux symptoms. Omeprazole is of modest benefit for his dyspepsia. He has arthritic pain in the knees, ankles, wrists and hands. He reported that the injections given by another physician in years past were not of benefit. Bilateral knee joint injections administered at this office in 2020 were not of benefit. Meloxicam, diclofenac and flurbiprofen were not of benefit. A B12 1500mcg injection was not of benefit for his fatigue. Meclizine, loratadine, hydroxyzine, and diphenhydramine were not of benefit for his vertigo. Prednisone was not of benefit for his vertigo and may have caused chest tightness. Prior vestibular rehabilitation was of slight, very brief benefit. Hansel maneuver was not of benefit for his disequilibrium. Diazepam was not of benefit for his disequilibrium. More recent physical therapy and vestibular rehabilitation were not of benefit for his disequilibrium. Scopolamine was not of significant benefit for his disequilibrium. Nabumetone was not of benefit for his musculoskeletal pain. He was treated in 2020 with a short course of Percocet for low back and knee pain. Prior use of Vicodin and tramadol were not of benefit. He now has low back pain and right lower extremity pain. He is taking aspirin 81 mg daily. He has had sleep impairment. His depression and anxiety remain prominent. Losartan was prescribed for his hypertension however he experienced a side effect of lightheadedness and low blood pressure at home and discontinued losartan. He has neck pain since May 2024. He has paresthesias in the hands. Mini-Mental status exam score was 29/30 in June 2024. Laboratory studies performed earlier in 2024 revealed a mildly elevated serum glucose and abno (more content not included)... Normal [facility] GURPREET + Protein Elect, Serumon 08-07-2024 Albumin [Mass/Vol] 4.1 g/dL Normal 2.9-4.4 [facility] Comment on above: Order Comment: Y Performed By: #### L 3600.4030, L3100.3425 #### [facility] [address] [place], [address] Albumin/Globulin [Mass ratio] 1.4 {ratio} Normal 0.7-1.7 [facility] Comment on above: Order Comment: Y Performed By: #### L 3600.4030, L3100.3425 #### [facility] [address] [place], [address] [id number] 0.2 g/dL Normal 0.0-0.4 [facility] Comment on above: Order Comment: Y Performed By: #### L 3600.4030, L3100.3425 #### [facility] [address] [place], [address] [id number] 0.7 g/dL Normal 0.4-1.0 [facility] Comment on above: Order Comment: Y Performed By: #### L 3600.4030, L3100.3425 #### [facility] [address] [place], [address] BETA GLOBULIN 1.2 g/dL Normal 0.7-1.3 [facility] Comment on above: Order Comment: Y Performed By: #### L 3600.4030, L3100.3425 #### [facility] [address] [place], [address] GAMMA GLOBULIN 0.9 g/dL Normal 0.4-1.8 [facility] Comment on above: Order Comment: Y Performed By: #### L 3600.4030, L3100.3425 #### [facility] [address] [place], [address] Globulin (S) [Mass/Vol] 3.0 g/dL Normal 2.2-3.9 [facility] Comment on above: Order Comment: Y Performed By: #### L 3600.4030, L3100.3425 #### [facility] [address] [place], [address] GURPREET RESULT,S Comment Normal . [facility] Comment on above: Order Comment: Y Result Comment: No m onoclonality detected. Performed By: #### L 3600.4030, L3100.3425 #### [facility] [address] [place], [address] IMMUNOGLOB A QN 203 mg/dL Normal 90-386 [facility] Comment on above: Order Comment: Y Performed By: #### L 3600.4030, L3100.3425 #### [facility] [address] [place], [address] IMMUNOGLOB G QN 967 mg/dL Normal 603-1613 [facility] Comment on above: Order Comment: Y Performed By: #### L 3600.4030, L3100.3425 #### [facility] [address] [place], [address] IMMUNOGLOB M QN 70 mg/dL Normal 20-172 [facility] Comment on above: Order Comment: Y Performed By: #### L 3600.4030, L3100.3425 #### [facility] [address] [place], [address] M-Marky Not Observed Normal Not Observed [facility] Comment on above: Order Comment: Y Performed By: #### L 3600.4030, L3100.3425 #### [facility] [address] [place], [address] NOTE: Comment Normal . [facility] Comment on above: Order Comment: Y Result Comment: Prot ein electrophoresis scan will follow via computer, mail, or health careers instructor delivery. Performed By: #### L 3600.4030, L3100.3425 #### [facility] [address] [place], [address] Protein [Mass/Vol] 7.1 g/dL Normal 6.0-8.5 [facility] Comment on above: Order Comment: Y Performed By: #### L 3600.4030, L3100.3425 #### [facility] [address] [place], [address] Immunofixation Urineon 08-07 GURPREET Urine Comment Normal . [facility] Comment on above: Result Comment: No m onoclonality detected. Performed at: [address] [id number] Residential Worker: Loy Lopez PhD, Phone: [phone] Performed By: #### L 3600.4030, L3100.3425 #### [facility] Laboratory [address] [place], [address] Albumin Elph [Mass/Vol]Order ed By: Terrell Quiles on 08-03-2024 Albumin [Mass/Vol] 4.1 g/dL 2.9-4.4 [facility] Interpretation of serum or p lasma protein pattern by immunofixation (narrative resultOrdered By: Terrell Quiles on 08-03-2024 Protein Fractions Immunofixation Naseem [Interp] Not Observed g/dL Not Observed [facility] No Panel InformationOrdered By: Terrell Quiles on 08-03-2024 Addendum Document Comment . [facility] Comment on above: Protein electrophore sis scan will follow via computer,mail, or health careers instructor delivery. Office Visit Reporton 2024 Office Visit Report [facility] [place] [place] [facility] [address] [place] [address] OFFICE VISIT Date of Service: 08/03/24 MR#: [id number] Acct: [id number] Patient: HAYDEN PENDLETON Rep #: [id number] : 1965 Provider: Dr. Terrell schmidt MD Age/Sex: 59/M Location: [facility] Status: Signed Intake Vital Signs 07/05/24 08:14 08/03/24 08:43 Height 6 ft 1 in Weight: 210 lb 3 oz BP 150/72 H Blood Pressure Location Lt brachial Position Sitting Respiration 17 Pulse 85 Pulse Source Monitor Temp 98.4 F Temp Source Temporal Pulse Oximetry (%) 97 Oxygen Delivery Method room air Intake Visit Reasons: B12 inject Chief Complaint: follow up chronic conditions Allergies oxycodone (From OxyContin) Allergy (Verified 07/05/24 08:19) Rash prednisone Allergy (Verified 07/05/24 08:19) Flush, insomnia, irregular heartbeat, irritability Office Meds cyanocobalamin (vitamin B-12) 1,000 mcg/mL injection solution Performing Provider: Terrell Quiles MD Performing Location: [facility] Administered by: Nikki Watson on 08/03/24 08:45 Dose Route Admin Location Dispensed Lot Number Expiration Date NDC Man ufacturer 1,000 mcg IM left deltoid 1 mL [id number] 07/22/26 19878-388-02 KEVIN HAYNES Comments: The patient presents for B12 injection for treatment of fatigue. He has fatigue. His last B12 injection was of benefit for fatigue. The patient is awake and alert. B12 1000mcg IM was administered today. There were no complications. Assessment and Plan Assessment and Plan (1) Fatigue: Orders: Orders Vitamin B12 Today R53.83 - Other fatigue 08/03/24 1742 Date Terrell Quiles MD Cosigner Signature: Date (if applicable) CC: Normal [facility] Serum globulin measurement ( mass/volume)Ordered By: Terrell Quiles on 08-03-2024 Globulin (S) [Mass/Vol] 3.0 g/dL 2.2-3.9 [facility] Serum or plasma IgA measurem ent (mass/volume)Ordered By: Terrell Quiles on 08-03-2024 IgA [Mass/Vol] 203 mg/dL 90-386 [facility] Serum or plasma IgG measurem ent (mass/volume)Ordered By: Terrell Quiles on 08-03-2024 IgG [Mass/Vol] 967 mg/dL 603-1613 [facility] Serum or plasma alpha 1 glob ulin measurement by electrophoresis (mass/volume)Ordered By: Terrell Quiles on 08-03-2024 Alpha 1 globulin Elph [Mass/Vol] 0.2 g/dL 0.0-0.4 [facility] Alpha 1 globulin Elph [Mass/Vol] 0.7 g/dL 0.4-1.0 [facility] Serum or plasma beta globuli n measurement by electrophoresis (mass/volume)Ordered By: Terrell Quiles on 08-03-2024 Beta globulin Elph [Mass/Vol] 1.2 g/dL 0.7-1.3 [facility] Serum or plasma gamma globul in measurement by electrophoresis (mass/volume)Ordered By: Terrell Quiles on 08-03-2024 Gamma globulin Elph [Mass/Vol] 0.9 g/dL 0.4-1.8 [facility] Serum or plasma immunoelectr ophoresis interpretation (nominal result)Ordered By: Terrell Quiles on 08-03-2024 Interpretation IEP [Interp] Comment . [facility] Comment on above: No monoclonality det ected. Serum or plasma protein alexandrea urement (mass/volume)Ordered By: Terrell Quiles on 08-03-2024 Protein [Mass/Vol] 7.1 g/dL 6.0-8.5 [facility] L3410.9992on 08-01-2024 [facility] Misc. COMMENT Normal . [facility] Comment on above: Order Comment: Y Result Comment: Test Ordered: 131502 Metanephrines, Frac., Pl. Free Test(s) 126549-Rathdxoijekvtat, Pl; 985905-Acvmxucbtcrw, Pl was developed and its performance characteristics determined by [facility]. It has not been cleared or approved by the Food and Drug Administration. Normetanephrine, Pl 104.0 pg/mL Reference Range: 0.0-244.0 Metanephrine, Pl <25.0 pg/mL Reference Range: 0.0-88.0 Performed at: [facility] [address] [id number] Residential Worker: Sylvia Chapman MD, Phone: [phone] Performed at: [facility] [address] [id number] Residential Worker: Loy Lopez PhD, Phone: [phone] Performed By: #### L 3600.4030, D6362.6195 #### [facility] Laboratory [address] [place], [place], [id number] Folates, RBCon 07-31-2024 Fol.,Hemolysate > 620.0 Normal Not Estab. [facility] Comment on above: Performed By: #### L 3600.4030, [id number] #### [facility] Laboratory [address] [place], [address] Folate, RBC > 1435 Normal >498 [facility] Comment on above: Result Comment: Perf ormed at: - [facility] [address] [id number] Residential Worker: Loy Lopez PhD, Phone: [phone] Performed By: #### L 3600.4030, L3100.3425 #### [facility] Laboratory [address] [place], [address] Hematocrit (Bld) [Volume fraction] 43.2 % Normal 37.5-51.0 [facility] Comment on above: Performed By: #### L 3600.4030, L3100.3425 #### [facility] Laboratory [address] [place], [address] Aquasco Lambda Light Chainson 07-31-2024 FR KAPPA LT CHN 24.0 mg/L Abnormal 3.3-19.4 [facility] Comment on above: Performed By: #### L 3600.4030, L3100.3425 #### [facility] Laboratory [address] [place], [address] FR LAMBDA LT CH 16.9 mg/L Normal 5.7-26.3 [facility] Comment on above: Performed By: #### L 3600.4030, L3100.3425 #### [facility] Laboratory [address] [place], [address] KAPPA/LAMBDA % 1.42 Normal 0.26-1.65 [facility] Comment on above: Performed By: #### L 3600.4030, L3100.3425 #### [facility] Laboratory [address] [place], [address] Magnetic resonance imaging r eportOrdered By: Reinier Barlow on 07-30-2024 Study report [facility] Imaging Services [address] [place] [address] Spine Cervical W/WO Contrast MR#: [id number] Acct: [id number] Name: HAYDEN PENDLETON Rep #: [id number] : 1965 M 59 From: Nicho Barlow MD PCP: SEBASTIÁN Pathak Status: REG CLI Study:Spine Cervical W/WO Contrast Date of Parris xam: 07/27/24 Exam# [id number] Ordering Dr: Terrell Quiles MD PROCEDURE: SPINE CERVICAL W/WO CONTRAST 07/27/2024 REASON FOR EXAM: NECK PAIN, PARESTHESIAS IN HANDS TECHNIQUE: Cervical spine MRI without and with Multiplanar and multisequence images were obtained with intravenous gadolinium-based contrast administration. CONTRAST: Clariscan VOLUME: 19 mL COMPARISON: CT scan on 05/25/2024. FINDINGS: Vertebrae: Mild multilevel disc dehydration. Mild multilevel disc space narrowing. Spinal Cord: Unremarkable. C2-3: Grade 1 retrolisthesis measuring 2.2 mm. Mild diffuse disc bulge. The spinal canal is not narrowed. Mild bilateral neural foramina narrowing. C3-4: Grade 1 anterolisthesis measuring 2.4 mm. Mild diffuse disc bulge. The spinal canal is not narrowed. Mild bilateral neural foraminal narrowing. C4-5: Mild diffuse disc bulge. The spinal canal is not narrowed. Mild bilateral neural foraminal narrowing. C5-6: Grade 1 anterolisthesis measuring 4.2 mm. Mild diffuse disc bulge. Superimposed broad-based left paracentral disc protrusion measuring 4.7 mm. The spinal canal is mildly narrowed. Mild bilateral neural foraminal narrowing. C6-7: Grade 1 anterolisthesis measuring 3.7 mm. Mild diffuse disc bulge. The spinal canal is not narrowed. Mild bilateral neural foraminal narrowing. C7-T1: Mild diffuse disc bulge. The spinal canal is not narrowed. Mild bilateral neural foraminal narrowing. Postcontrast images: No abnormal postcontrast enhancement is noted. MRI/Spine Cervical W/WO Contrast IMPRESSION: Spondylosis. Degenerative disc disease. No abnormal postcontrast enhancement is noted. Reading [facility] CC: SHIKHAC Jess Rosas; Dr. Terrell Quiles MD ~ Tablet Technician: Signed [facility] Anion gap in Serum or Plasma Ordered By: Terrell Quiles on 07-27-2024 Anion gap [Moles/Vol] 13 mmol/L 5-15 [facility] BUN/creatinine ratioOrdered By: Terrell Quiles on 07-27-2024 Urea nitrogen/Creatinine [Mass ratio] 13.1 mg/mg 10-20 [facility] Bilirubin, totalOrdered By: Terrell Quiles on 07-27-2024 Bilirubin [Mass/Vol] 0.50 mg/dL 0.00-1.30 [facility] Carbon dioxide, total [Moles /volume] in Central venous bloodOrdered By: Terrell Quiles on 07-27-2024 CO2 [Moles/Vol] 22.9 mmol/L 21.0-32.0 [facility] Chloride assayOrdered By: Ra zhen Quiles on 07-27-2024 Chloride [Moles/Vol] 105 mmol/L 98-108 [facility] Comprehensive Metabolic Prof ilon 07-27-2024 Albumin [Mass/Vol] 4.5 g/dL Normal 3.5-5.0 [facility] Comment on above: Performed By: #### L 3600.4030, L3100.3425 #### [facility] Laboratory [address] [place], [address] Albumin/Globulin [Mass ratio] 1.7 {ratio} Normal 0.9-2.4 [facility] Comment on above: Performed By: #### L 3600.4030, L3100.3425 #### [facility] Laboratory [address] [place], [address] ALK PHOS 73 U/L Normal 40-129 [facility] Comment on above: Performed By: #### L 3600.4030, L3100.3425 #### [facility] Laboratory [address] [place], [address] ALT [Catalytic activity/Vol] 33 U/L Normal <=46 [facility] Comment on above: Performed By: #### L 3600.4030, L3100.3425 #### [facility] Laboratory [address] [place], [address] AST [Catalytic activity/Vol] 28 U/L Normal <=37 [facility] Comment on above: Performed By: #### L 3600.4030, L3100.3425 #### [facility] Laboratory [address] [place], [address] Bilirubin [Mass/Vol] 0.50 mg/dL Normal 0.00-1.30 [facility] Comment on above: Performed By: #### L 3600.4030, L3100.3425 #### [facility] Laboratory [address] [place], [address] BUN/CRE 13.1 RATIO Normal 10-20 [facility] Comment on above: Performed By: #### L 3600.4030, L3100.3425 #### [facility] Laboratory [address] [place], [address] Calcium [Mass/Vol] 9.4 mg/dL Normal 7.6-11.0 [facility] Comment on above: Performed By: #### L 3600.4030, L3100.3425 #### [facility] Laboratory [address] [place], [address] Chloride [Moles/Vol] 105 mmol/L Normal 98-108 [facility] Comment on above: Performed By: #### L 3600.4030, L3100.3425 #### [facility] Laboratory [address] [place], [address] CO2 [Moles/Vol] 22.9 mmol/L Normal 21.0-32.0 [facility] Comment on above: Performed By: #### L 3600.4030, L3100.3425 #### [facility] Laboratory [address] [place], [address] Creatinine [Mass/Vol] 1.27 mg/dL High 0.70-1.20 [facility] Comment on above: Performed By: #### L 3600.4030, L3100.3425 #### [facility] Laboratory [address] [place], [address] GAP 13 Normal 5-15 [facility] Comment on above: Performed By: #### L 3600.4030, L3100.3425 #### [facility] Laboratory [address] [place], [address] GFR/1.73 sq M.predicted among non-blacks MDRD (S/P/Bld) [Vol rate/Area] 66 mL/min/{1.73_m2} Normal >60 [facility] Comment on above: Result Comment: mL/m in/1.73m2 CKD-EPI Creatinine Equation (2020) Performed By: #### L 3600.4030, L3100.3425 #### [facility] Laboratory [address] [place], [address] Globulin (S) [Mass/Vol] 2.6 g/dL Normal 2.2-4.2 [facility] Comment on above: Performed By: #### L 3600.4030, L3100.3425 #### [facility] Laboratory [address] [place], [address] Glucose [Mass/Vol] 132 mg/dL High 70-99 [facility] Comment on above: Performed By: #### L 3600.4030, L3100.3425 #### [facility] Laboratory [address] [place], [address] Potassium [Moles/Vol] 3.9 mmol/L Normal 3.3-5.1 [facility] Comment on above: Performed By: #### L 3600.4030, L3100.3425 #### [facility] Laboratory [address] [place], [address] Sodium [Moles/Vol] 140 mmol/L Normal 133-145 [facility] Comment on above: Performed By: #### L 3600.4030, L3100.3425 #### [facility] Laboratory [address] [place], [address] T PROT 7.1 g/dL Normal 5.9-8.4 [facility] Comment on above: Performed By: #### L 3600.4030, L3100.3425 #### [facility] Laboratory [address] [place], [address] Urea nitrogen [Mass/Vol] 17 mg/dL Normal 4-19 [facility] Comment on above: Performed By: #### L 3600.4030, L3100.3425 #### [facility] Laboratory [address] [place], [address] Erythrocyte folate measureme nt with hematocritOrdered By: Terrell Quiles on 07-27-2024 Hematocrit (Bld) [Volume fraction] 43.2 % 37.5-51.0 [facility] Glomerular filtration rate ( GFR) estimation/1.73 sq m using serum, plasma, or whole bOrdered By: Terrell Quiles on 07-27-2024 GFR/1.73 sq M.predicted among non-blacks MDRD (S/P/Bld) [Vol rate/Area] 66 mL/min/{1.73_m2} >60 [facility] Comment on above: mL/min/1.73m2 CKD-EP I Creatinine Equation (2020) Laboratory - Chemistry and C hemistry - challengeOrdered By: Terrell Quiles on 07-27-2024 AST [Catalytic activity/Vol] 28 U/L <38 [facility] Potassium measurement (mass/ volume)Ordered By: Terrell Quiles on 07-27-2024 Potassium (Unsp spec) [Mass/Vol] 3.9 mmol/L 3.3-5.1 [facility] Serum creatinine measurement (mass/volume)Ordered By: Terrell Quiles on 07-27-2024 Creatinine [Mass/Vol] 1.27 mg/dL High 0.70-1.20 [facility] Serum globulin measurementOr dered By: Terrell Quiles on 07-27-2024 Globulin (S) [Mass/Vol] 2.6 g/dL 2.2-4.2 [facility] Serum glucose measurement (m ass/volume)Ordered By: Terrell Quiles on 07-27-2024 Glucose [Mass/Vol] 132 mg/dL High 70-99 [facility] Serum immunoglobulin kappa l ight chains/immunoglobulin lambda light chains mass ratioOrdered By: Terrell Quiles 07-27-2024 Immunoglobulin light chains.kappa/Immunoglobul in light chains.lambda (S) [Mass ratio] 1.42 0.26-1.65 [facility] Serum or plasma alanine hollins otransferase (ALT) measurementOrdered By: Terrell Quiles on 07-27-2024 ALT [Catalytic activity/Vol] 33 U/L <47 [facility] Serum or plasma albumin alexandrea urement (mass/volume)Ordered By: Terrell Quiles 07-27-2024 Albumin [Mass/Vol] 4.5 g/dL 3.5-5.0 [facility] Serum or plasma albumin/glob ulin mass ratioOrdered By: Terrell Quiles 07-27-2024 Albumin/Globulin [Mass ratio] 1.7 {ratio} 0.9-2.4 [facility] Serum or plasma alkaline emmanuel sphatase measurementOrdered By: Terrell Quiles 07-27-2024 ALP [Catalytic activity/Vol] 73 U/L 40-129 [facility] Serum or plasma calcium alexandrea urement (mass/volume)Ordered By: Terrell Quiles 07-27-2024 Calcium [Mass/Vol] 9.4 mg/dL 7.6-11.0 [facility] Serum or plasma immunoglobul in kappa light chains measurement (mass/volume)Ordered By: Terrell Quiles 07-27-2024 Immunoglobulin light chains.kappa [Mass/Vol] 24.0 mg/L High 3.3-19.4 [facility] Serum or plasma urea nitroge n measurement (mass/volume)Ordered By: Terrell Quiles 07-27-2024 Urea nitrogen [Mass/Vol] 17 mg/dL 4-19 [facility] [facility] Sodium levelOrdered By: Elizabeth Quiles on 07-27-2024 Sodium [Moles/Vol] 140 mmol/L 133-145 [facility] Spine Cervical W/WO Contrast on 07-27-2024 Spine Cervical W/WO Contrast [facility] Imaging Services [address] [place] [address] Spine Cervical W/WO Contrast MR#: [id number] Acct: [id number] Name: HAYDEN PENDLETON Rep #: [id number] : 1965 M 59 From: Reinier dominguez MD PCP: Jess Rosas 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 CONTRAST: Clariscan VOLUME: 19 mL COMPARISON: CT scan on 05/25/2024. FINDINGS: Vertebrae: Mild multilevel disc dehydration. Mild multilevel disc space narrowing. Spinal Cord: Unremarkable. C2-3: Grade 1 retrolisthesis measuring 2.2 mm. Mild diffuse disc bulge. The spinal canal is not narrowed. Mild bilateral neural foramina narrowing. C3-4: Grade 1 anterolisthesis measuring 2.4 mm. Mild diffuse disc bulge. The spinal canal is not narrowed. Mild bilateral neural foraminal narrowing. C4-5: Mild diffuse disc bulge. The spinal canal is not narrowed. Mild bilateral neural foraminal narrowing. C5-6: Grade 1 anterolisthesis measuring 4.2 mm. Mild diffuse disc bulge. Superimposed broad-based left paracentral disc protrusion measuring 4.7 mm. The spinal canal is mildly narrowed. Mild bilateral neural foraminal narrowing. C6-7: Grade 1 anterolisthesis measuring 3.7 mm. Mild diffuse disc bulge. The spinal canal is not narrowed. Mild bilateral neural foraminal narrowing. C7-T1: Mild diffuse disc bulge. The spinal canal is not narrowed. Mild bilateral neural foraminal narrowing. Postcontrast images: No abnormal postcontrast enhancement is noted. MRI/Spine Cervical W/WO Contrast IMPRESSION: Spondylosis. Degenerative disc disease. No abnormal postcontrast enhancement is noted. Reading [facility] CC: SEBASTIÁN Rosas; Dr. Terrell Quiles MD Tablet Technician: Signed Normal [facility] Total proteinOrdered By: Yohannes Quiles on 07-27-2024 Protein [Mass/Vol] 7.1 g/dL 5.9-8.4 [facility] CNPNon 07-13-2024 CNPN Telephone (AGCARDHWG ) HAYDEN PENDLETON ([id number]) 1965 M Date Time Provider Department 07/13/24 [...] Encounter Status:Closed by ANA GRIJALVA on 07/13/24 [facility] CNTHERAPYon 07-12-2024 CNTHERAPY OT/PT/Speech Visit (PTWS) HAYDEN PENDLETON ([id number]) 1965 M Date Time Provider Department 07/12/24 9:45 AM CELIA SANDERS PTWS Date Time Provider Department Center 07/12/2024 9:45 AM [id number] SANDERS PTWS [place] [facility] Reason for Visit: [...] inhaler Inhale 2 Puffs as instructed. Normal [facility] Visit Reporton Neurology Visit Report [facility] [address], [address] [place] [id number] OFFICE VISIT Date of Service: 07/05/24 MR#: [id number] Acct: [id number] Name: HAYDEN PENDLETON Rep #: [id number] : 1965 Provider: Dr. Terrell schmidt MD Age/Sex: 59/M Location[place] [facility] Status: Signed HPI HPI Details: History: Hayden presents for neurological reassessment. He was last seen in this office in April 2021. He has a history of hypertension, microscopic colitis, rheumatoid arthritis (he did not tolerate Humira), sleep apnea (he did not tolerate CPAP), and coronary artery bypass surgery in October 2020. He has a history of vertigo. His [...] loss lasting 3 hours that resolved spontaneously. Following his visit in April 2021 he had an extended period during which she did not have vertigo however on May 19, 2024 he awoke from sleep and experienced vertigo/disequilibriu m which worsened with movement and gait imbalance. The symptoms have been intermittent though they continue to occur frequently. He denies having lightheadedness. In April 2024 he had a period of nausea and vomiting lasting for weeks. He was treated with ondansetron. He reported having diffuse weakness. He had numbness in the hands and feet beginning in May 2024; this resolved after about 1 month. He had diplopia lasting about 2 weeks that began in May 2024. His memory difficulty has worsened since 2023. He has a tendency to forget conversations. He is no longer able to manage his own finances. 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 He has had prominent fatigue since 2022. He has a history of alcohol and marijuana abuse and continues to use these. He had been consuming 3-4 drinks of liquor daily and has had this pattern for years; he has reduced his alcohol use since March 2024. He continues to smoke tobacco. He has depression, anxiety and easy irritability. Citalopram 40mg daily was of benefit. He currently takes buspirone and diazepam as needed. Duloxetine was not well tolerated. He previously took sertraline and bupropion ER. He reported having migraine headaches in the past but has not had any significant headaches since 2019. He has gastrointestinal reflux symptoms. Omeprazole is of modest benefit for his dyspepsia. He has arthritic pain in the knees, ankles, wrists and hands. He reported that the injections given by another physician in years past were not of benefit. Bilateral knee joint injections administered at this office in 2020 were not of benefit. Meloxicam, diclofenac and flurbiprofen were not of benefit. A B12 1500mcg injection was not of benefit for his fatigue. Meclizine, loratadine, hydroxyzine, and diphenhydramine were not of benefit for his vertigo. Prednisone was not of benefit for his vertigo and may have caused chest tightness. Vestibular rehabilitation was of slight, very brief benefit. Nabumetone was not of benefit for his musculoskeletal pain. He was treated in 2020 with a short course of Percocet for low back and knee pain. Prior use of Vicodin and tramadol were not of benefit. He is taking aspirin 81 mg daily. Hansel maneuver was not of benefit for his disequilibrium. Diazepam has not been of benefit for his disequilibrium. More recent physical therapy and vestibular rehabilitation were not of benefit for his disequilibrium. Scopolamine was not of significant benefit for his disequilibrium. He has had sleep impairment. His depression and anxiety remain prominent. Losartan was prescribed for his hypertension however he experienced a side effect of lightheadedness and low blood pressure at home and discontinued losartan. He has neck pain since May 2024. He has paresthesias in the hands. Past Medical History: There is no history of lung disease, stroke, seizure, thyroid disease, cancer, or renal disease. Social History: He smokes tobacco. He has been consuming 3-4 drinks of liquor daily for years. Around March 2024, he reduced his alcohol consumption. He uses marijuana. He does not have any history of other illicit drug use. Family History: The patient's moth (more content not included)... Normal [facility] CNTHERAPYon 07-03-2024 CNTHERAPY OT/PT/Speech Visit (PTWS) HAYDEN PENDLETON ([id number]) 1965 M Date Time Provider Department 07/03/24 8:00 AM CELIA SANDERS PTNAOMIE Date Time Provider Department Center 07/03/2024 8:00 AM [id number] SANDERS Reason for Visit: PT Eval [747] Primary [...] inhaler Inhale 2 Puffs as instructed. Normal [facility] Lyme Screen W/Reflex WBon LYME SCREEN Ab Negative Normal Negative [facility] Comment on above: Result Comment: Lyme antibodies not detected. Reflex testing is not indicated. No laboratory evidence of infection with B. burgdorferi (Lyme disease). Negative results may occur in patients recently infected (less than or equal to 14 days) with B. burgdorferi. If recent infection is suspected, repeat testing on a new sample collected in 7 to 14 days is recommended. Performed at: [facility] [id number] Residential Worker: Loy Lopez PhD, Phone: [phone] Performed By: #### L 5425.7332 #### [facility] Laboratory [facility] [place], [address] CNTHERAPYon 06-21-2024 CNTHERAPY OT/PT/Speech Visit (LTOT) HAYDEN PENDLETON ([id number]) 1965 M Date Time Provider Department 06/21/24 3:00 PM CLARITZA VARGAS LTOT Date Time Provider Department Center 06/21/2024 3:00 PM [id number] , KRI*LTOT [facility] Reason for Visit: OT EVAL [748] [...] inhaler Inhale 2 Puffs as instructed. Normal [facility] ALLIED HEALTHon 06-13-2024 ALLIED HEALTH HNO ID: [id number] Author: JESS SALAS Chaplain Service: ? 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 SIGNATURE: Chaplain Terrell PATIENT NAME: Hayden Pendleton DATE: June 13, 2024 TIME: 2:08 PM PAGER/CONTACT #: [phone] [facility] 06-13-2024 [facility] HNO ID: [id number] Author: AV CORONADO DO Service: Hospital Medicine [...] negative non contrast MRI at [facility] to rule out stroke. He was [...] to call for appointment?: Yes Jess Rosas, [facility] [phone] [address] [facility] [address] PCP Requested Referral Additional Provider to Provider Information: 59 y/o male with PMHx of CAD, arthritis, HTN, HLD who presented for evaluation of progressive lethargy, weakness, dizziness and disequilibrium. Patient underwent negative non contrast MRI at [facility] to rule out stroke. He was [...] results. FOLLOW-UP APPOINTMENTS ALREADY SCHEDULED WITH A [facility] PROVIDER: No future appointments. ALLERGIES Allergen Reactions Oxycotin [Oxycodone] Rash Prednisone Intolerance flushing of skin-steriods DISCHARGE MEDICATION: Medication List CONTINUE taking these medications aspirin 81 mg chewable tablet Take 1 tablet by mouth once daily. cyclobenzaprine (more content not included)... Normal [facility] Ceruloplasmin SerPl-mCncon 0 06-13-2024 Ceruloplasmin [Mass/Vol] 24 mg/dL Normal 15-30 [facility] Comment on above: Order Comment: Speci men Type: BLOOD SPECIMENOrdering Facility: [facility] Address: [address] [place] [address] Performed By: #### 2 064-4 ####[facility] LABCLIA [id number] [address] OF [facility] THERAPY NTon 06-13-2024 THERAPY NT HNO ID: [id number] Author: KEY NEGRETE, PT Service: Physical Therapy Author Type: Physical Therapist Type: Therapy (PT/OT/Speech/Resp) Filed: 06/13/2024 13:11 Note Text: Physical Therapy Treatment Summary SERVICE DATE: 06/13/2024 SERVICE TIME: 1120 to 1155 ROOM: [place] [address] PT 6 Clicks Score: 20 DISCHARGE RECOMMENDATIONS [...] cleans, does yardwork; 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; no assistive devices used for ambulation, has used a cane over the last couple of weeks due to dizziness, unsteady gait SUBJECTIVE Agreeable to PT THERAPY DIAGNOSIS Reduced mobility-other, Muscle Weakness (generalized), Unsteadiness on feet TREATMENT INTERVENTIONS Therapeutic Activity (57176), Neuromuscular Reeducation (37324) Therapeutic Activity (89419) Treatment Minutes: 20 $ Therapeutic Activity (73083) Billed Units: 1 unit See grid for functional mobility facilitated and education provided Neuromuscular Reeducation (61538) Treatment Minutes: 15 $ Neuromuscular Reeducation (38542) Billed Units: 1 unit Educated patient on [...] to progress to the next. Patient declined Viking Hallpike testing, stating he just got tested [...] Toward Go (more content not included)... 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 Results are as follows: Version 8.1 Total Score: 20/30 Visuospatial/Executiv e Alternating Goldsmith Makin Visuoconstructional Skills (Shape): 0 Visuoconstructional Skills [...] gait and mobility-other TREATMENT INTERVENTIONS Evaluation, Self Retirement Management (30081), Cognitive Training (37742 and 47784) Timed Code Treatment (minutes): 30 Skilled Treatment Time (minutes): 45 $ Evaluation - Moderate (43872) Billed Units: 1 unit Lindsay (more content not included)... Normal [facility] BRIEF OP NOTon 06-12-2024 BRIEF OP NOT HNO ID: [id number] Author: HIGINIO LEONE APRN.CNP Service: Interventional Radiology Author Type: Nurse Practitioner Type: Brief Op Note Filed: 06/12/2024 11:47 Note Text: LUMBAR PUNCTURE BRIEF OPERATIVE / PROCEDURE NOTE LOG ID: [id number] SURGERY/PROCEDURE DATE: 06/12/24 Incision/Procedure Start Time: 11:37 AM Incision Close/Procedure End Time: 11:44 AM PROCEDURALIST(S) AND LAWYER PROBATE(S): Surgeon(s) and Role: Higinio Leone APRN.CNP SURGERY/PROCEDURE(S): Fluoroscopy guided diagnostic lumbar puncture with local anesthetic ANESTHESIA: Local FINDINGS: L4/5 midline, OP <9, 16 ml clear CSF in 4 tubes ESTIMATED BLOOD LOSS: 0 ml SPECIMENS: 16 ml . Specimen obtained, labeled and verified with Flea Market Seller (RT); RT verbalized specimen sent to lab. COMPLICATIONS: None CLOSURE TECHNIQUE: N/A PRE-OP/PRE-PROCEDURE DIAGNOSIS: cerebellar ataxia POST-OP/POST-PROCEDUR E DIAGNOSIS: Same as Preop SIGNATURE: Higinio Leone APRN.CNP PATIENT NAME: Hayden Pendleton DATE: 06/12/24 TIME: 11:46 AM Normal [facility] Bacteria CSF Culton 06-13-19 Bacteria identified Cx Nom (CSF) CULTURE, CSF: No growth 5 days GRAM STAIN: No organisms seen No Polymorphonuclear Leukocytes Few Mononuclear cells Gram stain performed on cytospun specimen. Normal [facility] Comment on above: Performed By: #### 6 06-4 ####[facility] LABORATORYCLIA [id number] [address] CONSULT PROGon 06-12-2024 CONSULT PROG HNO ID: [id number] Author: RAJESH MAK APRN.CNP Service: Neurology General Author Type: Nurse [...] prick. Coordination: Finger-to- nose-finger intact bilaterally and Anoz-xw-pkyy intact bilaterally. New Labs: WBC (k/uL) Date [...] imaging results. Impression/Recommenda tions This is Hayden Bentonkelsy, a 59 year old male has a [...] up with outpatient Rheumatology. Previously established at [facility] - Continued outpatient follow up with ENT. Already established - Consider follow up with movement disorder clinic - Recommend establishment with Neurology movement disorder clinic - Please call/page with questions Part of my note may have been copied from previous documentation. It has been reviewed and is accurate. SIGNATURE: Rajesh Mak APRN.[employer] ARCHITECT PATIENT NAME: Hayden Pendleton DATE: June 12, 2024 TIME: 3:05 PM 1149 Normal [facility] CSF MANUAL DIFFon 06-12-2024 DIF TTL, CSF 100 cells counted Normal [facility] Comment on above: Order Comment: Zeyad san Type: CEREBROSPINAL FLUID SPECIMENOrdering Facility: [facility] Address: [address] [place] [address] Performed By: #### L [id number], 40569-5 ####[facility] LABORATORYCLIA [id number] [place] [address] [place] LYMPH%, CSF 68 % Normal 50-90 [facility] Comment on above: Order Comment: Zeyad san Type: CEREBROSPINAL FLUID SPECIMENOrdering Facility: [facility] Address: [address] [place] [address] Performed By: #### L BW9246, 94009-9 ####[facility]ORATORYCLIA [id number] [place] [address] [place] MACRO%, CSF 2 % High <1 [facility] Comment on above: Order Comment: Speci men Type: CEREBROSPINAL FLUID SPECIMENOrdering Facility: [facility] Address: [address] [place] [address] Performed By: #### L RY5493, 81932-8 ####[facility] LABORATORYCLIA [id number] [place] [address] [place] MONO%, CSF 29 % Normal 10-50 [facility] Comment on above: Order Comment: Speci men Type: CEREBROSPINAL FLUID SPECIMENOrdering Facility: [facility] Address: [address] [place] [address] Performed By: #### L [id number], 03835-6 ####[facility] LABORATORYCLIA [id number] [address] [place] NEUT%, CSF 1 % Normal 0-3 [facility] Comment on above: Order Comment: Speci men Type: CEREBROSPINAL FLUID SPECIMENOrdering Facility: [facility] Address: [address] [place] [address] Performed By: #### L ET0691, 38814-6 ####[facility] LABORATORYCLIA [id number] [address] Cell count panel (CSF)on Clarity (CSF) Clear Normal Clear [facility] Comment on above: Order Comment: Speci men Type: CEREBROSPINAL FLUID SPECIMENOrdering Facility: [facility] Address: [address] [place] [address] Performed By: #### L [id number], 01945-0 ####[facility] LABORATORYCLIA [id number] [address] Clarity (Unsp spec) Not Indicated Normal Clear [facility] Comment on above: Order Comment: Speci men Type: CEREBROSPINAL FLUID SPECIMENOrdering Facility: [facility] Address: [address] [place] [address] Performed By: #### L CD1119, 73349-4 ####[facility]ORATORYCLIA [id number] [address] Color (CSF) Colorless Normal Colorless [facility] Comment on above: Order Comment: Speci men Type: CEREBROSPINAL FLUID SPECIMENOrdering Facility: [facility] Address: [address] [place] [address] Performed By: #### L HE7555, 26497-9 ####[facility]ORATORYCLIA [id number] [address] Color (Spun CSF) Not Indicated Normal Colorless [facility] Comment on above: Order Comment: Speci men Type: CEREBROSPINAL FLUID SPECIMENOrdering Facility: [facility] Address: [address] [place] [address] Performed By: #### L LZ4009, 98719-4 ####[facility]ORATORYCLIA [id number] [address] CSF TUBE NUMBER Tube 4 Normal [facility] Comment on above: Order Comment: Speci men Type: CEREBROSPINAL FLUID SPECIMENOrdering Facility: [facility] Address: [address] [place] [address] Performed By: #### L [id number], 01964-8 ####[facility]ORATORYCLIA [id number] [address] [place] RBC Manual cnt (CSF) [#/Vol] 0 cells/uL Normal 0-5 [facility] Comment on above: Order Comment: Speci men Type: CEREBROSPINAL FLUID SPECIMENOrdering Facility: [facility] Address: [address] [place] [address] Performed By: #### L VD0360, 23452-3 ####[facility]ORATORYCLIA [id number] [address] WBC Manual cnt (CSF) [#/Vol] 2 cells/uL Normal 0-5 [facility] Comment on above: Order Comment: Speci men Type: CEREBROSPINAL FLUID SPECIMENOrdering Facility: [facility] Address: [address] [place] [address] Performed By: #### L SC6628, 40142-7 ####[facility] LABORATORYCLIA [id number] [place] [address] [place] Glucose CSF-mCncon Glucose (CSF) [Mass/Vol] 76 mg/dL High 40-70 [facility] Comment on above: Order Comment: Zeyad san Type: CEREBROSPINAL FLUID SPECIMENOrdering Facility: [facility] Address: [address] [place] [address] Result Comment: Lumb ar CSF glucose values of healthy patients are approximately 60% of the plasma values and must always be compared with a concurrently measured plasma value for adequate clinical interpretation. References: 1. Glucose HK (GLUC3) [package insert V 12.0 Romanian]. [employer], [place], [place]. June 2015. 2. Kristy Connell, Kristy Kumar (2015). Chapter 7: Glucose and Lactate. Rock Casas al.(eds.), Cerebrospinal Fluid in Clinical Neurology. [place]: [employer]. Performed By: #### 2 342-4, 2880-3 ####[facility] LABORATORYCLIA [id number] [address] OF [place] PARANEOPLASTIC AUTOAB, CSFon 06-12-2024 AMPHIPHYSIN AB, CSF Negative Normal Negative [facility] Comment on above: Order Comment: Zeyad san Type: CEREBROSPINAL FLUID SPECIMENOrdering Facility: [facility] Address: [address] [place] [address] Result Comment: ADDITIONAL INFORMATION This test was developed and its performance characteristics determined by [facility] in a manner consistent with CLIA requirements. This test has not been cleared or approved by the U.S. Food and Drug Administration. Performed By: #### P ARCSF ####[facility] LABCLIA [id number] [place] [address] ANTI-GLIAL NUCLEAR AB TYPE 1, CSF Negative Normal Negative [facility] Comment on above: Order Comment: Zeyad san Type: CEREBROSPINAL FLUID SPECIMENOrdering Facility: [facility] Address: [address] [place] [address] Result Comment: ADDITIONAL INFORMATION This test was developed and its performance characteristics determined by [facility] in a manner consistent with CLIA requirements. This test has not been cleared or approved by the U.S. Food and Drug Administration. Performed By: #### P SHERITASF ####[facility] LABCLIA [id number] [place] [address] ANTI-NEURONAL AB TYPE 1, CSF Negative Normal Negative [facility] Comment on above: Order Comment: Zeyad san Type: CEREBROSPINAL FLUID SPECIMENOrdering Facility: [facility] Address: [address] [place] [address] Result Comment: ADDITIONAL INFORMATION This test was developed and its performance characteristics determined by [facility] in a manner consistent with CLIA requirements. This test has not been cleared or approved by the U.S. Food and Drug Administration. Performed By: #### P JOSF ####[facility] LABCLIA [id number] [place] [address] ANTI-NEURONAL AB TYPE 2, CSF Negative Normal Negative [facility] Comment on above: Order Comment: Zeyad san Type: CEREBROSPINAL FLUID SPECIMENOrdering Facility: [facility] Address: [address] [place] [address] Result Comment: ADDITIONAL INFORMATION This test was developed and its performance characteristics determined by [facility] in a manner consistent with CLIA requirements. This test has not been cleared or approved by the U.S. Food and Drug Administration. Performed By: #### P ARCSF ####[facility] LABCLIA [id number] [place] [address] ANTI-NEURONAL AB TYPE 3, CSF Negative Normal Negative [facility] Comment on above: Order Comment: Zeyad san Type: CEREBROSPINAL FLUID SPECIMENOrdering Facility: [facility] Address: [address] [place] [address] Result Comment: ADDITIONAL INFORMATION This test was developed and its performance characteristics determined by [facility] in a manner consistent with CLIA requirements. This test has not been cleared or approved by the U.S. Food and Drug Administration. Performed By: #### P ARCSF ####[facility] LABCLIA [id number] [place] [address] CRMP-5 IGG, CSF Negative Normal Negative [facility] Comment on above: Order Comment: Zeyad san Type: CEREBROSPINAL FLUID SPECIMENOrdering Facility: [facility] Address: [address] [place] [address] Result Comment: ADDITIONAL INFORMATION This test was developed and its performance characteristics determined by [facility] in a manner consistent with CLIA requirements. This test has not been cleared or approved by the U.S. Food and Drug Administration. Performed By: #### P ARCSF ####[facility] LABCLIA [id number] [place] [address] IFA NOTES None. Normal [facility] Comment on above: Order Comment: Zeyad san Type: CEREBROSPINAL FLUID SPECIMENOrdering Facility: [facility] Address: [address] [place] [address] Performed By: #### P ARCSF ####[facility] LABCLIA [id number] [place] [id number] PARANEOPLASTIC INTERP, CSF SEE NOTE Normal [facility] Comment on above: Order Comment: Zeyad san Type: CEREBROSPINAL FLUID SPECIMENOrdering Facility: [facility] Address: [address] [place] [address] Result Comment: A ne gative basic paraneoplastic evaluation result does not rule out all clinically relevant antibodies. If indicated, a comprehensive neurological phenotype-specific autoimmune/paraneoplastic evaluation (e.g. encephalopathy, movement disorders, myelopathy, or axonal neuropathy) should be considered [email or web address] These evaluations include screening cell-based assays optimized for detection of recently discovered antibodies. Performed By: #### P SHERITASF ####[facility] LABCLIA [id number] [place] [id number] PURKINJE CELL CYTO AB TYPE 1, CSF Negative Normal Negative [facility] Comment on above: Order Comment: Zeyad san Type: CEREBROSPINAL FLUID SPECIMENOrdering Facility: [facility] Address: [address] [place] [address] Result Comment: ADDITIONAL INFORMATION This test was developed and its performance characteristics determined by [facility] in a manner consistent with CLIA requirements. This test has not been cleared or approved by the U.S. Food and Drug Administration. Performed By: #### P JOSF ####[facility] LABCLIA [id number] [place] [address] PURKINJE CELL CYTO AB TYPE 2, CSF Negative Normal Negative [facility] Comment on above: Order Comment: Zeyad san Type: CEREBROSPINAL FLUID SPECIMENOrdering Facility: [facility] Address: [address] [place] [address] Result Comment: ADDITIONAL INFORMATION This test was developed and its performance characteristics determined by [facility] in a manner consistent with CLIA requirements. This test has not been cleared or approved by the U.S. Food and Drug Administration. Test Performed by: [place] [id number] Residential Worker: Lilli Fernandez Ph.D.; CLIA# [id number] Performed By: #### P SHERITASF ####[facility] LABCLIA [id number] [place] [address] PURKINJE CELL CYTO AB TYPE TR, CSF Negative Normal Negative [facility] Comment on above: Order Comment: Zeyad san Type: CEREBROSPINAL FLUID SPECIMENOrdering Facility: [facility] Address: [address] [place], [place] [address] Result Comment: ADDITIONAL INFORMATION This test was developed and its performance characteristics determined by [facility] in a manner consistent with CLIA requirements. This test has not been cleared or approved by the U.S. Food and Drug Administration. Performed By: #### P ARCSF ####[facility] LABCLIA [id number] [place] [address] Prot CSF-mCncon 06-12-2024 Protein (CSF) [Mass/Vol] 81 mg/dL High 15-45 [facility] Comment on above: Order Comment: Zeyad jaswinder Type: CEREBROSPINAL FLUID SPECIMENOrdering Facility: [facility] Address: [address] [place], [place] [address] Performed By: #### 2 342-4, 2880-3 ####[facility] LABORATORYCLIA [id number] [place] [id number] [facility] THERAPY NTon 06-12-2024 THERAPY NT HNO ID: [id number] Author: KEY NEGRETE, PT Service: Physical Therapy Author Type: Physical Therapist Type: Therapy (PT/OT/Speech/Resp) Filed: 06/12/2024 16:24 Note Text: Physical Therapy Evaluation Summary SERVICE DATE: 06/12/2024 SERVICE TIME: 1514 to 1604 ROOM: [place] [address] PT 6 Clicks Score: 20 DISCHARGE RECOMMENDATIONS Outpatient PT Recommended Discharge Equipment: Wheeled Walker ASSESSMENT Response to Therapy Interventions: Good Participation in Activities, Cognitive Deficits Vestibular assessment completed. Viking Hallpike deferred due to LP. Patient with [...] on feet TREATMENT INTERVENTIONS Evaluation, Therapeutic Activity (25946) $ Evaluation-High (23932) Billed Units: 1 unit Therapeutic Activity (21483) Treatment Minutes: 9 $ Therapeutic Activity (60981) Billed Units: 1 unit Educated patient on [...] DATE: June 12, 2024 TIME: 4:20 PM Normal [facility] THERAPY NT HNO ID: [id number] Author: ANA GARCIA OTR/Modesta Service: Occupational Therapy Author Type: Occupational Therapist Type: Therapy (PT/OT/Speech/Resp) Filed: 06/12/2024 16:19 Note Text: OCCUPATIONAL THERAPY MISSED VISIT SERVICE DATE: 06/12/2024 SERVICE TIME: 1537 ROOM: [place] [address] Patient not seen due to Patient Not Available. Attempted to see pt at 1335 - nursing reported pt needed 2+hours bedrest following LP. Re-attempted to see pt at 1537 - pt with PT. Will continue to re-attempt as able. SIGNATURE: EDU Rain/Modesta PATIENT NAME: Hayden Pendleton DATE: June 12, 2024 TIME: 4:18 PM Normal [facility] XR LUMBAR PUNCTURE DIAGNOSTI Con 06-12-2024 XR [...] lumbar puncture yielding 16 cc of fluid. Tablet Technician: JACKI Transcribe Date/Time: Jun 12 2024 12:43P Dictated by : HIGINIO LEONE CNP This examination was interpreted and the report reviewed and electronically signed by: HIGINIO LEONE CNP on Jun 12 2024 12:46PM EST [id number] N Normal [facility] 25(OH)D3 SerPl-mCncon 2024 25-hydroxyvitamin D3 [Mass/Vol] 24.8 ng/mL Low >=30.0 [facility] Comment on above: Order Comment: Speci men Type: BLOOD SPECIMENOrdering Facility: [facility] Address: [address] [place] [address] Result Comment: Clas sification of 25 OH Vitamin D status: Deficiency: <= 20.0 ng/ml. Insufficiency: 21.0-29.0 ng/ml. Sufficiency: >= 30.0 ng/ml. Performed By: #### 1 989-3 ####[facility] LABORATORYCLIA [id number] [place] [address] [facility] ALLIED HEALTHon 06-11-2024 ALLIED HEALTH HNO ID: [id number] Author: ANDREA GUILLAUME RT(Cy) Service: ? 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 EXAM: MRI - CONTRAST TYPE: GROUP II PERIPHERAL IV DATA: Inpatient - refer to LDA documentation RADIOLOGY DEPARTMENT: MR; Exam(s) Completed: Head: Routine Brain SIGNATURE: RT Devan(Cy) PATIENT NAME: Hayden Pendleton DATE: June 11, 2024 TIME: 8:21 AM Normal [facility] CK SerPl-cCncon 06-11-2024 CK [Catalytic activity/Vol] 59 U/L Normal 51-298 [facility] Comment on above: Order Comment: Speci men Type: BLOOD SPECIMENOrdering Facility: [facility] Address: [address] [place] [address] Performed By: #### 2 157-6, 3016-3 ####[facility] LABORATORYCLIA [id number] [place] [address] [place] CONSULT PROGon 06-11-2024 CONSULT PROG HNO ID: [id number] Author: MAGY LECHUGA APRN.CHRISTINA Service: Neurology General Author Type: Nurse [...] PT/OT/ST Supplement Vit D SIGNATURE: Magy Lechuga APRN.[employer] PATIENT NAME: Hayden Pendleton DATE: June 11, 2024 TIME: 7:15 AM Discussed with: patient, I spent a total of 25 minutes on the date of the service which included preparing to see the patient, [id number] patient care, completing clinical documentation, obtaining and/or reviewing separately obtained history, performing a medically appropriate examination, counseling and educating the patient/family/caregi beck, communicating results to the patient/family/caregi beck, and care coordination. Normal [facility] MRI BRAIN WO/W IVCONon 06-11 MRI BRAIN WO/W IVCON * * *Final Report* * * DATE OF EXAM: Jun 11 2024 8:48AM [facility] 0295 - MRI BRAIN WO/W IVCON / [...] abnormal intracranial enhancement. Chronic changes as described. Tablet Technician: JACKI Transcribe Date/Time: Jun 11 2024 8:54A Dictated by : MERCEDES PAULINO MD This examination was interpreted and the report reviewed and electronically signed by: MERCEDES PAULINO MD on Jun 11 2024 8:57AM EST [id number] N Normal [facility] TSH SerPl-aCncon 06-11-2024 TSH Qn 3.910 m[IU]/L Normal 0.270-4.200 [facility] Comment on above: Order Comment: Speci jaswinder Type: BLOOD SPECIMENOrdering Facility: [facility] Address: [address] [place] [address] Performed By: #### 2 157-6, 3016-3 ####[facility] LABORATORYCLIA [id number] [place] [address] [place] ACETYLCHOLINE REC BINDING AB on 06-10-2024 ACETYLCHOLINE BINDING, QUAL Negative Normal Negative [facility] Comment on above: Order Comment: Zeyad san Type: BLOOD SPECIMENOrdering Facility: [facility] Address: [address] [place] [address] Result Comment: Anti -acetylcholine receptor binding antibody test is used as an aid in diagnosis of myasthenia gravis. A negative result cannot exclude myasthenia gravis. Clinical correlation is required. Performed By: #### A CHRAB ####[facility] LABCLIA [id number] [place] [address] [place] Acetylcholine receptor binding Ab (S) [Moles/Vol] <0.02 Normal <0.21 [facility] Comment on above: Order Comment: Fermini jaswinder Type: BLOOD SPECIMENOrdering Facility: [facility] Address: [address] [place] [address] Performed By: #### A CHRAB ####[facility] LABCLIA [id number] [place] [address] [place] ACETYLCHOLINE REC BLOCKING A Bon 06-10-2024 ACETYLCHOLINE BLOCKING, QUAL Negative Normal Negative [facility] Comment on above: Order Comment: Zeyad san Type: BLOOD SPECIMENOrdering Facility: [facility] Address: [address] [place] [address] Result Comment: Anti -acetylcholine receptor blocking antibody test is used as an aid in diagnosis of myasthenia gravis. A negative result cannot exclude myasthenia gravis. Clinical correlation is required. Performed By: #### A CEBAB ####[facility] LABCLIA [id number] [place] [address] [place] Acetylcholine receptor blocking Ab/Acetylcholine Ab.total (S) [Molar fraction] <13 Normal <21 [facility] Comment on above: Order Comment: Speci men Type: BLOOD SPECIMENOrdering Facility: [facility] Address: [address] [place] [address] Performed By: #### A CEBAB ####[facility] LABCLIA [id number] [place] [address] [place] MUSCLE-SPECIFIC KINASE (MUSK ) AUTOANTIBODY, SERUMon 06-10-2024 MUSK ANTIBODY 0.00 nmol/L Normal 0.00-0.02 [facility] Comment on above: Order Comment: Zeyad san Type: BLOOD SPECIMENOrdering Facility: [facility] Address: [address] [place] [address] Result Comment: ADDITIONAL INFORMATION This test was developed using an analyte specific reagent. Its performance characteristics were determined by [facility] in a manner consistent with CLIA requirements. This test has not been cleared or approved by the U.S. Food and Drug Administration. Test Performed by: [facility] Laboratories - [facility] [address] [place] [address] Residential Worker: Lilli Fernandez Ph.D.; CLIA# [id number] Performed By: #### M CLEVE ####[facility] LABCLIA [id number] [place] [id number] MYELOPATHY, AUTOIMMUNE/PARAN EOPLASTIC EVALUATION, SERUMon 06-10-2024 AMPHIPHYSIN AB Negative Normal Negative [facility] Comment on above: Order Comment: Speci men Type: BLOOD SPECIMENOrdering Facility: [facility] Address: [address] [place] [address] Result Comment: ADDITIONAL INFORMATION This test was developed and its performance characteristics determined by [facility] in a manner consistent with CLIA requirements. This test has not been cleared or approved by the U.S. Food and Drug Administration. Performed By: #### Codi LPTHY ####[facility] LABCLIA [id number] [place] [address] ANTI-GLIAL NUCLEAR AB, TYPE 1 Negative Normal Negative [facility] Comment on above: Order Comment: Zeyad jaswinder Type: BLOOD SPECIMENOrdering Facility: [facility] Address: [address] [place] [address] Result Comment: ADDITIONAL INFORMATION This test was developed and its performance characteristics determined by [facility] in a manner consistent with CLIA requirements. This test has not been cleared or approved by the U.S. Food and Drug Administration. Performed By: #### Codi LPTHY ####[facility] LABCLIA [id number] [place] [address] ANTI-NEURONAL NUC AB, TYPE 1 Negative Normal Negative [facility] Comment on above: Order Comment: Zeyad jaswinder Type: BLOOD SPECIMENOrdering Facility: [facility] Address: [address] [place] [address] Result Comment: ADDITIONAL INFORMATION This test was developed and its performance characteristics determined by [facility] in a manner consistent with CLIA requirements. This test has not been cleared or approved by the U.S. Food and Drug Administration. Performed By: #### Codi LPTHY ####[facility] LABCLIA [id number] [place] [address] ANTI-NEURONAL NUC AB, TYPE 2 Negative Normal Negative [facility] Comment on above: Order Comment: Zeyad san Type: BLOOD SPECIMENOrdering Facility: [facility] Address: [address] [place] [address] Result Comment: ADDITIONAL INFORMATION This test was developed and its performance characteristics determined by [facility] in a manner consistent with CLIA requirements. This test has not been cleared or approved by the U.S. Food and Drug Administration. Performed By: #### Codi ROATHY ####[facility] LABCLIA [id number] [place] [address] ANTI-NEURONAL NUC AB, TYPE 3 Negative Normal Negative [facility] Comment on above: Order Comment: Zeyad san Type: BLOOD SPECIMENOrdering Facility: [facility] Address: [address] [place] [address] Result Comment: ADDITIONAL INFORMATION This test was developed and its performance characteristics determined by [facility] in a manner consistent with CLIA requirements. This test has not been cleared or approved by the U.S. Food and Drug Administration. Performed By: #### Codi ROATHY ####[facility] LABCLIA [id number] [place] [address] AP3B2 IFA, S Negative Normal Negative [facility] Comment on above: Order Comment: Zeyad san Type: BLOOD SPECIMENOrdering Facility: [facility] Address: [address] [place] [address] Result Comment: ADDITIONAL INFORMATION This test was developed and its performance characteristics determined by [facility] in a manner consistent with CLIA requirements. This test has not been cleared or approved by the U.S. Food and Drug Administration. Performed By: #### Codi LPTHY ####[facility] LABCLIA [id number] [place] [address] AUTOIMMUNE MYELOPATHY INTERP, S SEE NOTE Normal [facility] Comment on above: Order Comment: Zeyad san Type: BLOOD SPECIMENOrdering Facility: [facility] Address: [address] [place] [address] Result Comment: No i nformative autoantibodies were detected in this evaluation. However, a negative result does not exclude autoimmune myelopathy, idiopathic or paraneoplastic. Sensitivity and specificity of antibody testing are enhanced by testing both serum and CSF. Performed By: #### M LPTHY ####[facility] LABCLIA [id number] [place] [address] CRMP-5-IGG WESTERN BLOT, S ALSO USED BY TESTS: CRMWS Negative Normal Negative [facility] Comment on above: Order Comment: Zeyad san Type: BLOOD SPECIMENOrdering Facility: [facility] Address: [address] [place] [address] Result Comment: ADDITIONAL INFORMATION This test was developed and its performance characteristics determined by [facility] in a manner consistent with CLIA requirements. This test has not been cleared or approved by the U.S. Food and Drug Administration. Performed By: #### M JANINATHY ####[facility] LABCLIA [id number] [place] [address] DPPX AB CBA, S Negative Normal Negative [facility] Comment on above: Order Comment: Zeyad san Type: BLOOD SPECIMENOrdering Facility: [facility] Address: [address] [place] [address] Result Comment: ADDITIONAL INFORMATION This test was developed and its performance characteristics determined by [facility] in a manner consistent with CLIA requirements. This test has not been cleared or approved by the U.S. Food and Drug Administration. Performed By: #### M LPTHY ####[facility] LABCLIA [id number] [place] [address] NELSON-B-R AB CBA, S Negative Normal Negative [facility] Comment on above: Order Comment: Zeyad jaswinder Type: BLOOD SPECIMENOrdering Facility: [facility] Address: [address] [place] [address] Result Comment: ADDITIONAL INFORMATION This test was developed and its performance characteristics determined by [facility] in a manner consistent with CLIA requirements. This test has not been cleared or approved by the U.S. Food and Drug Administration. Performed By: #### Codi ROATHY ####[facility] LABCLIA [id number] [place] [address] GAD65 ANTIBODY 0.00 nmol/L Normal <= 0.02 [facility] Comment on above: Order Comment: Zeyad [facility] Type: BLOOD SPECIMENOrdering Facility: [facility] Address: [address] [place] [address] Result Comment: ADDITIONAL INFORMATION This test was developed and its performance characteristics determined by [facility] in a manner consistent with CLIA requirements. This test has not been cleared or approved by the U.S. Food and Drug Administration. Performed By: #### Codi ROATHY ####[facility] LABCLIA [id number] [place] [id number] GFAP IFA, S Negative Normal Negative [facility] Comment on above: Order Comment: Ferminchantel [facility] Type: BLOOD SPECIMENOrdering Facility: [facility] Address: [address] [place] [address] Result Comment: ADDITIONAL INFORMATION This test was developed and its performance characteristics determined by [facility] in a manner consistent with CLIA requirements. This test has not been cleared or approved by the U.S. Food and Drug Administration. Performed By: #### Codi LPTHY ####[facility] LABCLIA [id number] [place] [address] IFA NOTES (MLPTHY) None. Normal [facility] Comment on above: Order Comment: Zeyad san Type: BLOOD SPECIMENOrdering Facility: [facility] Address: [address] [place] [address] Performed By: #### Codi ROATHY ####[facility] LABCLIA [id number] [place] [address] MGLUR1 AB IFA, S Negative Normal Negative [facility] Comment on above: Order Comment: Zeyad san Type: BLOOD SPECIMENOrdering Facility: [facility] Address: [address] [place] [address] Result Comment: ADDITIONAL INFORMATION This test was developed and its performance characteristics determined by [facility] in a manner consistent with CLIA requirements. This test has not been cleared or approved by the U.S. Food and Drug Administration. Performed By: #### Codi ROATHY ####[facility] LABCLIA [id number] [place] [address] MYELIN OLIGODENDROCYTE GLYCOPROTEIN (MOG-IGG1) FLUORESCENCE-ACTIVATED CELL Negative Normal Negative [facility] Comment on above: Order Comment: Zeyad san Type: BLOOD SPECIMENOrdering Facility: [facility] Address: [address] [place] [address] Result Comment: ADDITIONAL INFORMATION This test was developed and its performance characteristics determined by [facility] in a manner consistent with CLIA requirements. This test has not been cleared or approved by the U.S. Food and Drug Administration. Performed By: #### Codi LPTHY ####[facility] LABCLIA [id number] [place] [address] NEUROCHONDRIN IFA , S Negative Normal Negative [facility] Comment on above: Order Comment: Zeyad [facility] Type: BLOOD SPECIMENOrdering Facility: [facility] Address: [address] [place] [address] Result Comment: ADDITIONAL INFORMATION This test was developed and its performance characteristics determined by [facility] in a manner consistent with CLIA requirements. This test has not been cleared or approved by the U.S. Food and Drug Administration. Performed By: #### Codi ROATHY ####[facility] LABCLIA [id number] [place] [address] NIF IFA, S Negative Normal Negative [facility] Comment on above: Order Comment: Zeyad san Type: BLOOD SPECIMENOrdering Facility: [facility] Address: [address] [place] [address] Result Comment: ADDITIONAL INFORMATION This test was developed and its performance characteristics determined by [facility] in a manner consistent with CLIA requirements. This test has not been cleared or approved by the U.S. Food and Drug Administration. Performed By: #### Codi ROATHY ####[facility] LABCLIA [id number] [place] [address] NMO/AQPF FACS, S Negative Normal Negative [facility] Comment on above: Order Comment: Zeyad san Type: BLOOD SPECIMENOrdering Facility: [facility] Address: [address] [place] [address] Result Comment: ADDITIONAL INFORMATION This test was developed and its performance characteristics determined by [facility] in a manner consistent with CLIA requirements. This test has not been cleared or approved by the U.S. Food and Drug Administration. Performed By: #### Codi ROATHY ####[facility] LABCLIA [id number] [place] [address] PURKINJE CELL CYTO AB, TYPE 1 Negative Normal Negative [facility] Comment on above: Order Comment: Zeyad san Type: BLOOD SPECIMENOrdering Facility: [facility] Address: [address] [place] [address] Result Comment: ADDITIONAL INFORMATION This test was developed and its performance characteristics determined by [facility] in a manner consistent with CLIA requirements. This test has not been cleared or approved by the U.S. Food and Drug Administration. Performed By: #### Codi ROATHY ####[facility] LABCLIA [id number] [place] [address] PURKINJE CELL CYTO AB, TYPE 2 Negative Normal Negative [facility] Comment on above: Order Comment: Zeyad san Type: BLOOD SPECIMENOrdering Facility: [facility] Address: [address] [place] [address] Result Comment: ADDITIONAL INFORMATION This test was developed and its performance characteristics determined by [facility] in a manner consistent with CLIA requirements. This test has not been cleared or approved by the U.S. Food and Drug Administration. Performed By: #### Codi ROATHY ####[facility] LABCLIA [id number] [place] [address] SEPTIN-7 IFA, S Negative Normal Negative [facility] Comment on above: Order Comment: Zeyad jaswinder Type: BLOOD SPECIMENOrdering Facility: [facility] Address: [address] [place] [address] Result Comment: ADDITIONAL INFORMATION This test was developed and its performance characteristics determined by [facility] in a manner consistent with CLIA requirements. This test has not been cleared or approved by the U.S. Food and Drug Administration. Performed By: #### Codi ROATHY ####[facility] LABCLIA [id number] [place] [address] TRIM46 AB IFA, S Negative Normal Negative [facility] Comment on above: Order Comment: Speci men Type: BLOOD SPECIMENOrdering Facility: [facility] Address: [address], [place] [id number] Result Comment: ADDITIONAL INFORMATION This test was developed and its performance characteristics determined by [facility] in a manner consistent with CLIA requirements. This test has not been cleared or approved by the U.S. Food and Drug Administration. Test Performed by: [facility] [place] [address] Residential Worker: Lilli Fernandez Ph.D.; CLIA# [id number] Performed By: #### M LPTHY ####[facility] LABCLIA [id number] [place], [place] [id number] THERAPY NTon 06-10-2024 THERAPY NT HNO ID: [id number] Author: PETR DASILVA RRT Service: Respiratory Therapy [...] TIME: 1650 NIF and VC SIGNATURE: Petr Dasilva RRT PATIENT NAME: Hayden Pendleton DATE: June 10, 2024 TIME: 4:52 PM PAGER/CONTACT #: Eusebio Normal [facility] ALLIED HEALTHon 06-09-2024 ALLIED HEALTH HNO ID: [id number] Author: ROXANA OLIVO Tech Service: Radiology Author Type: Park Guide Type: Allied Health Filed: 06/09/2024 10:04 Note [...] 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 ALLERGIES: Reviewed and unchanged CONTRAST ALLERGY: [...] PERIPHERAL IV DATA: Inpatient - refer to [facility] documentation RADIOLOGY DEPARTMENT: CT; Exam(s) Completed: Brain , CTA Brain , and CTA Neck SIGNATURE: Ranjit Finn PATIENT NAME: Hayden Pendleton DATE: June 09, 2024 TIME: 10:03 AM Normal [facility] CBC W Auto Differential pane l (Bld)on 06-09-2024 Basophils (Bld) [#/Vol] 0.10 10*3/uL Normal <0.11 [facility] Comment on above: Order Comment: Speci men Type: BLOOD SPECIMENOrdering Facility: [facility] Address: [address] [place] [address] Performed By: #### 5 7021-8 ####[facility] LABORATORYCLIA [id number] [place] Basophils/100 WBC (Bld) 1.4 % Normal [facility] Comment on above: Order Comment: Speci men Type: BLOOD SPECIMENOrdering Facility: [facility] Address: [address] [place] [address] Performed By: #### 5 7021-8 ####[facility]ORATORYCLIA [id number] [address] [place] Differential cell count method Nom (Bld) Auto Normal [facility] Comment on above: Order Comment: Speci men Type: BLOOD SPECIMENOrdering Facility: [facility] Address: [address] [place] [address] Performed By: #### 5 7021-8 ####[facility]ORATORYCLIA [id number] STATES OF [facility] Eosinophils (Bld) [#/Vol] 0.34 10*3/uL Normal <0.46 [facility] Comment on above: Order Comment: Speci men Type: BLOOD SPECIMENOrdering Facility: [facility] Address: [address] [place] [address] Performed By: #### 5 7021-8 ####[facility] LABORATORYCLIA [id number] Eosinophils/100 WBC (Bld) 4.8 % Normal [facility] Comment on above: Order Comment: Speci men Type: BLOOD SPECIMENOrdering Facility: [facility] Address: [address] [place] [address] Performed By: #### 5 7021-8 ####[facility]ATORYCLIA [id number] [place] Erythrocyte distribution width (RBC) [Ratio] 14.1 % Normal 11.5-15.0 [facility] Comment on above: Order Comment: Speci men Type: BLOOD SPECIMENOrdering Facility: [facility] Address: [address] [place] [address] Performed By: #### 5 7021-8 ####[facility] LABORATORYCLIA [id number] [address] [place] Hematocrit (Bld) [Volume fraction] 42.7 % Normal 39.0-51.0 [facility] Comment on above: Order Comment: Speci men Type: BLOOD SPECIMENOrdering Facility: [facility] Address: [address] [place] [address] Performed By: #### 5 7021-8 ####[facility] LABORATORYCLIA [id number] [address] [place] Hemoglobin (Bld) [Mass/Vol] 15.0 g/dL Normal 13.0-17.0 [facility] Comment on above: Order Comment: Speci men Type: BLOOD SPECIMENOrdering Facility: [facility] Address: [address] [place] [address] Performed By: #### 5 7021-8 ####[facility] LABORATORYCLIA [id number] [address] [place] Immature granulocytes (Bld) [#/Vol] 0.03 10*3/uL Normal <0.10 [facility] Comment on above: Order Comment: Speci men Type: BLOOD SPECIMENOrdering Facility: [facility] Address: [address] [place] [address] Performed By: #### 5 7021-8 ####[facility] LABORATORYCLIA [id number] [address] [place] Immature granulocytes/100 WBC (Bld) 0.4 % Normal [facility] Comment on above: Order Comment: Speci men Type: BLOOD SPECIMENOrdering Facility: [facility] Address: [address] [place] [address] Performed By: #### 5 7021-8 ####[facility] LABORATORYCLIA [id number] [place] [address] [place] Lymphocytes (Bld) [#/Vol] 2.55 10*3/uL Normal 1.00-4.0 0 [facility] Comment on above: Order Comment: Speci men Type: BLOOD SPECIMENOrdering Facility: [facility] Address: [address] [place] [address] Performed By: #### 5 7021-8 ####[facility] LABORATORYCLIA [id number] [address] Lymphocytes/100 WBC (Bld) 36.2 % Normal [facility] Comment on above: Order Comment: Speci men Type: BLOOD SPECIMENOrdering Facility: [facility] Address: [address] [place] [address] Performed By: #### 5 7021-8 ####[facility] LABORATORYCLIA [id number] [address] [place] MCH (RBC) [Entitic mass] 28.3 pg Normal 26.0-34.0 [facility] Comment on above: Order Comment: Speci men Type: BLOOD SPECIMENOrdering Facility: [facility] Address: [address] [place] [address] Performed By: #### 5 7021-8 ####[facility] LABORATORYCLIA [id number] [address] STATES OF [facility] MCHC (RBC) [Mass/Vol] 35.1 g/dL Normal 30.5-36.0 [facility] Comment on above: Order Comment: Speci men Type: BLOOD SPECIMENOrdering Facility: [facility] Address: [address] [place] [address] Performed By: #### 5 7021-8 ####[facility] LABORATORYCLIA [id number] [address] [place] MCV (RBC) [Entitic vol] 80.6 fL Normal 80.0-100.0 [facility] Comment on above: Order Comment: Speci men Type: BLOOD SPECIMENOrdering Facility: [facility] Address: [address] [place] [address] Performed By: #### 5 7021-8 ####[facility] LABORATORYCLIA [id number] [place] [address] [place] Monocytes (Bld) [#/Vol] 0.52 10*3/uL Normal <0.87 [facility] Comment on above: Order Comment: Speci men Type: BLOOD SPECIMENOrdering Facility: [facility] Address: [address] [place] [address] Performed By: #### 5 7021-8 ####[facility] LABORATORYCLIA [id number] [address] [place] Monocytes/100 WBC (Bld) 7.4 % Normal [facility] Comment on above: Order Comment: Speci men Type: BLOOD SPECIMENOrdering Facility: [facility] Address: [address] [place] [address] Performed By: #### 5 7021-8 ####[facility] LABORATORYCLIA [id number] [address] [place] Neutrophils (Bld) [#/Vol] 3.51 10*3/uL Normal 1.45-7.5 0 [facility] Comment on above: Order Comment: Speci men Type: BLOOD SPECIMENOrdering Facility: [facility] Address: [address] [place] [address] Performed By: #### 5 7021-8 ####[facility] LABORATORYCLIA [id number] [address] [place] Neutrophils/100 WBC (Bld) 49.8 % Normal [facility] Comment on above: Order Comment: Speci men Type: BLOOD SPECIMENOrdering Facility: [facility] Address: [address] [place] [address] Performed By: #### 5 7021-8 ####[facility] LABORATORYCLIA [id number] [address] [place] Nucleated RBC (Bld) [#/Vol] 10*3/uL Normal <0.01 [facility] Comment on above: Order Comment: Speci men Type: BLOOD SPECIMENOrdering Facility: [facility] Address: [address] [place] [address] Performed By: #### 5 7021-8 ####[facility] LABORATORYCLIA [id number] [address] [place] Nucleated RBC/100 WBC (Bld) [Ratio] 0.0 /100 WBC Normal [facility] Comment on above: Order Comment: Speci men Type: BLOOD SPECIMENOrdering Facility: [facility] Address: [address] [place] [address] Performed By: #### 5 7021-8 ####[facility] LABORATORYCLIA [id number] [place] [address] [place] Platelet mean volume (Bld) [Entitic vol] 9.6 fL Normal 9.0-12.7 [facility] Comment on above: Order Comment: Speci men Type: BLOOD SPECIMENOrdering Facility: [facility] Address: [address] [place] [address] Performed By: #### 5 7021-8 ####[facility] LABORATORYCLIA [id number] [address] [place] Platelets (Bld) [#/Vol] 241 10*3/uL Normal 150-400 [facility] Comment on above: Order Comment: Speci men Type: BLOOD SPECIMENOrdering Facility: [facility] Address: [address] [place] [address] Performed By: #### 5 7021-8 ####[facility] LABORATORYCLIA [id number] [address] [place] RBC (Bld) [#/Vol] 5.30 10*6/uL Normal 4.20-6.00 [facility] Comment on above: Order Comment: Speci men Type: BLOOD SPECIMENOrdering Facility: [facility] Address: [address] [place] [address] Performed By: #### 5 7021-8 ####[facility] LABORATORYCLIA [id number] [address] [place] WBC (Bld) [#/Vol] 7.05 10*3/uL Normal 3.70-11.00 [facility] Comment on above: Order Comment: Zeyad san Type: BLOOD SPECIMENOrdering Facility: [facility] Address: [address] [place] [address] Performed By: #### 5 7021-8 ####[facility] LABORATORYCLIA [id number] [place] [id number] [place] CONSULTon 06-09-2024 CONSULT HNO ID: [id number] Author: JOSE TUCKER MD Service: Neurology General [...] to the worsening symptoms he presented to [facility] and was admitted last week. He underwent a brain MRI that per patient was reported as normal. He is not sure if he got IV contrast or not. 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 Cardiology did a full assessment. [...] confrontation, No (more content not included)... Normal [facility] CT BRAIN WO IVCONon 06-10-19 CT BRAIN WO IVCON * * *Final Report* * * DATE OF EXAM: Jun 09 2024 10:10AM [facility] 0504 - CT BRAIN WO IVCON [...] IMPRESSION: No evidence of acute intracranial process Tablet Technician: JACKI Transcribe Date/Time: Jun 09 2024 10:11A Dictated by : LINDA GARCIA MD This examination was interpreted and the report reviewed and electronically signed by: LINDA GARCIA MD on Jun 09 2024 10:15AM EST [id number] N Normal [facility] CTA HEAD W IVCONon 5 CTA HEAD W IVCON * * *Final Report* * * DATE OF EXAM: Jun 09 2024 10:10AM [facility] 0022 - CTA HEAD W IVCON [...] are patent. The basilar artery is patent. operator prefinish are patent. SCAs are patent. No significant stenosis. No aneurysm. The major dural sinuses and draining veins are patent. No intracranial venous thrombosis Scene And Lighting Design Lecturer (topogram) images: No additional findings. IMPRESSION: Bilateral proximal cervical ICA stenosis 10% on the right and 40% on the left. No other significant stenosis. No major vessel occlusion. Tablet Technician: PSCDavid Transcribe Date/Time: Jun 09 2024 10:15A Dictated by : CARIN FIGUEROA MD This examination was interpreted and the report reviewed and electronically signed by: CARIN FIGUEROA MD on Jun 09 2024 10:24AM EST [id number] N Normal [facility] CTA NECK W IVCONon CTA NECK W IVCON * * *Final Report* * * DATE OF EXAM: Jun 09 2024 10:10AM [facility] 0024 - CTA NECK W IVCON [...] are patent. The basilar artery is patent. operator prefinish are patent. SCAs are patent. No significant stenosis. No aneurysm. The major dural sinuses and draining veins are patent. No intracranial venous thrombosis Scene And Lighting Design Lecturer (topogram) images: No additional findings. IMPRESSION: Bilateral proximal cervical ICA stenosis 10% on the right and 40% on the left. No other significant stenosis. No major vessel occlusion. Tablet Technician: JACKI Transcribe Date/Time: Jun 09 2024 10:15A Dictated by : CARIN FIGUEROA MD This examination was interpreted and the report reviewed and electronically signed by: CARIN FIGUEROA MD on Jun 09 2024 10:24AM EST [id number] N Normal [facility] Comprehensive metabolic 2000 panelon 06-09-2024 Albumin [Mass/Vol] 4.0 g/dL Normal 3.9-4.9 [facility] Comment on above: Order Comment: Speci men Type: BLOOD SPECIMENOrdering Facility: [facility] Address: [address] [place] [address] Performed By: #### 2 4323-8, 66324-1 ####[facility] LABORATORYCLIA [id number] [place] [address] [place] ALP [Catalytic activity/Vol] 80 U/L Normal 38-113 [facility] Comment on above: Order Comment: Speci men Type: BLOOD SPECIMENOrdering Facility: [facility] Address: [address] [place] [address] Performed By: #### 2 4323-8, ####[facility]ORATORYCLIA [id number] [place] [address] [place] ALT With P-5'-P [Catalytic activity/Vol] 27 U/L Normal 10-54 [facility] Comment on above: Order Comment: Speci men Type: BLOOD SPECIMENOrdering Facility: [facility] Address: [address] [place] [address] Performed By: #### 2 432-8, ####[facility] LABORATORYCLIA [id number] [place] [id number] [place] Anion gap [Moles/Vol] 11 mmol/L Normal 8-15 [facility] Comment on above: Order Comment: Speci men Type: BLOOD SPECIMENOrdering Facility: [facility] Address: [address] [place] [address] Performed By: #### 2 4328, ####[facility] LABORATORYCLIA [id number] [address] [place] AST With P-5'-P [Catalytic activity/Vol] 19 U/L Normal 14-40 [facility] Comment on above: Order Comment: Speci men Type: BLOOD SPECIMENOrdering Facility: [facility] Address: [address] [place] [address] Performed By: #### 2 4328, ####[facility] LABORATORYCLIA [id number] [place] [address] [place] Bilirubin [Mass/Vol] 0.2 mg/dL Normal 0.2-1.3 [facility] Comment on above: Order Comment: Speci men Type: BLOOD SPECIMENOrdering Facility: [facility] Address: [address] [place] [address] Performed By: #### 2 432-8, ####[facility] LABORATORYCLIA [id number] [place] [address] [place] Calcium [Mass/Vol] 9.8 mg/dL Normal 8.5-10.2 [facility] Comment on above: Order Comment: Speci men Type: BLOOD SPECIMENOrdering Facility: [facility] Address: [address] [place] [address] Performed By: #### 2 4323-8, ####[facility] LABORATORYCLIA [id number] [place] [address] [place] Chloride [Moles/Vol] 103 mmol/L Normal 98-107 [facility] Comment on above: Order Comment: Speci men Type: BLOOD SPECIMENOrdering Facility: [facility] Address: [address] [place] [address] Performed By: #### 2 43238, ####[facility] LABORATORYCLIA [id number] [place] [address] [place] CO2 [Moles/Vol] 25 mmol/L Normal 22-30 [facility] Comment on above: Order Comment: Speci men Type: BLOOD SPECIMENOrdering Facility: [facility] Address: [address] [place] [address] Performed By: #### 2 4328, ####[facility] LABORATORYCLIA [id number] [place] [address] [place] Creatinine [Mass/Vol] 1.14 mg/dL Normal 0.73-1.22 [facility] Comment on above: Order Comment: Speci men Type: BLOOD SPECIMENOrdering Facility: [facility] Address: [address] [place] [address] Performed By: #### 2 4323-8, ####[facility] LABORATORYCLIA [id number] [address] [place] Creatinine and Glomerular filtration rate.predicted panel (S/P/Bld) 75 mL/min/1.73m??? Normal >=60 [facility] Comment on above: Order Comment: Speci men Type: BLOOD SPECIMENOrdering Facility: [facility] Address: [address] [place] [address] Result Comment: Cherelle mated Glomerular Filtration Rate [...] actual GFR. Performed By: #### 2 4323-8, ####[facility] LABORATORYCLIA [id number] [place] [address] [place] Glucose [Mass/Vol] 108 mg/dL High 74-99 [facility] Comment on above: Order Comment: Zeyad san Type: BLOOD SPECIMENOrdering Facility: [facility] Address: [address] [place] [address] Result Comment: The [place] [employer] (ADA) provides guidance for cutoff [...] Standards of Medical Care in Diabetes 2016, [place] [employer]. Diabetes Care. 2016.39(Suppl 1). Performed By: #### 2 432-, ####[facility] LABORATORYCLIA [id number] [place] [address] [place] Potassium [Moles/Vol] 4.1 mmol/L Normal 3.7-5.1 [facility] Comment on above: Order Comment: Zeyad san Type: BLOOD SPECIMENOrdering Facility: [facility] Address: [address] [place] [address] Performed By: #### 2 43204-29, ####[facility] LABORATORYCLIA [id number] [place] [address] [place] Protein [Mass/Vol] 7.2 g/dL Normal 6.3-8.0 [facility] Comment on above: Order Comment: Speci men Type: BLOOD SPECIMENOrdering Facility: [facility] Address: [address] [place] [address] Performed By: #### 2 432-8, ####[facility]ORATORYCLIA [id number] [address] [place] Sodium [Moles/Vol] 139 mmol/L Normal 136-144 [facility] Comment on above: Order Comment: Speci men Type: BLOOD SPECIMENOrdering Facility: [facility] Address: [address] [place] [address] Performed By: #### 2 4328, ####[facility]ORATORYCLIA [id number] [address] [place] Urea nitrogen [Mass/Vol] 14 mg/dL Normal 9-24 [facility] Comment on above: Order Comment: Speci men Type: BLOOD SPECIMENOrdering Facility: [facility] Address: [address] [place] [address] Performed By: #### 2 4323-8, ####[facility]ORATORYCLIA [id number] [address] OF [facility] ED NOTEon 06-09-2024 ED NOTE HNO ID: [id number] Author: JAROCHO BAKER RN Service: Emergency Medicine Author Type: Registered Nurse Type: ED Notes Filed: 06/09/2024 16:54 Note Text: Verified that EVS is present and starting to clean 2104-02. Normal [facility] ED NOTE HNO ID: [id number] Author: PRINCE JACOBS RN Service: Emergency Medicine Author Type: Registered Nurse Type: ED Notes Filed: 06/09/2024 09:55 Note Text: instrument/control technician notified that patient is ready for CT. Normal [facility] ED NOTE HNO ID: [id number] Author: LISA ROBLEDO RN Service: Emergency Medicine Author Type: Registered Nurse Type: ED Notes Filed: 06/09/2024 09:18 Note Text: XR notified Normal [facility] ED PROV NOTEon 06-09-2024 ED PROV NOTE HNO ID: [id number] Author: EDIE GRIMALDO MD Service: Emergency Medicine [...] PM ED Provider Note Patient Name: Hayden Pendleton : 1965 SERVICE DATE: 06/09/24 History Patient [...] he was seen and evaluated over at [facility] last week with no clear cause [...] within norm (more content not included)... Normal [facility] ED PROV NOTE HNO ID: [id number] Author: EDIE GRIMALDO MD Service: Emergency Medicine Author Type: Physician Type: ED Provider Notes Filed: 06/09/2024 16:31 Note Text: HPI 59-year-old male with pmhx of HTN, CAD s/p CABG and prior vertigo who presents today with chief complaint of dizziness and headache. Dizzy and REEVES x 3-4 weeks. Has seen ENT and [...] Date: 06/09/2024 Time: 4:31 PM EDIE GRIMALDO IVKOVICH 06/09/24 1631 Normal [facility] EKGon 06-09-2024 Electrocardiogram Ventricular Rate : 7 7 BPM Atrial Rate : 77 BPM P-R Interval : 196 ms QRS Duration : 86 ms Q-T Interval : 368 ms QTC Calculation(Bazett) : 416 ms Calculated P Viola : 6 degrees Calculated R Viola : 69 degrees Calculated T Viola : 22 degrees NORMAL SINUS RHYTHM NORMAL ECG WHEN COMPARED WITH ECG OF 26-Oct-2020 06:06, ST NO LONGER ELEVATED IN ANTEROLATERAL LEADS Confirmed by EDIE GRIMALDO MD ([id number]) on 06/09/2024 4:31:22 PM NAME : HAYDEN PENDLETON PID : [id number] : 1965 Gender : Male Race : ORD : Procedure Date : Jun 09 2024 08:45:59 Edit Date : Jun 09 2024 16:31:24 Diagnosis: NORMAL SINUS RHYTHM NORMAL ECG WHEN COMPARED WITH ECG OF 26-Oct-2020 06:06, ST NO LONGER ELEVATED IN ANTEROLATERAL LEADS Confirmed by EDIE GRIMALDO MD ([id number]) on 06/09/2024 4:31:22 PM Test Reason : [facility] Overread By : EDIE GRIMALDO MD Edited By : EDIE GRIMALDO MD Referred By : , Acquired by : HENRI ONEIL Normal [facility] HIGH SENSITIVITY TROPONIN T (INITIAL)on 06-09-2024 Troponin T.cardiac High sensitivity method [Mass/Vol] <6 Normal <12 [facility] Comment on above: Order Comment: Speci men Type: BLOOD SPECIMENOrdering Facility: [facility] Address: [address] [place] [address] Performed By: #### L [id number] ####[facility] LABORATORYCLIA [id number] [place] [address] [place] HIGH SENSITIVITY TROPONIN T (SECOND)on 06-09-2024 Troponin T.cardiac High sensitivity method [Mass/Vol] 6 ng/L Normal <12 [facility] Comment on above: Order Comment: Speci men Type: BLOOD SPECIMENOrdering Facility: [facility] Address: [facility] [place] [address] Performed By: #### L [id number] ####[facility] LABORATORYCLIA [id number] [place] [address] [facility] HISTORY PHYSICALon HISTORY PHYSICAL HNO ID: [id number] Author: BARB IVERSON MD Service: Hospital Medicine [...] 1 week ago, he was admitted to [facility] due to worsening symptoms. Reportedly, during his [...] tests revie (more content not included)... Normal [facility] MYELOPATHY, AUTOIMMUNE/PARAN EOPLASTIC EVALUATION, SERUMon 06-09-2024 AMPHIPHYSIN AB Negative Normal Negative [facility] Comment on above: Order Comment: Speci men Type: BLOOD SPECIMENOrdering Facility: [facility] Address: [address], [place] [address] Result Comment: ADDITIONAL INFORMATION This test was developed and its performance characteristics determined by [facility] in a manner consistent with CLIA requirements. This test has not been cleared or approved by the U.S. Food and Drug Administration. Performed By: #### M LPTHY ####[facility] LABCLIA [id number] [place] [address] ANTI-GLIAL NUCLEAR AB, TYPE 1 Negative Normal Negative [facility] Comment on above: Order Comment: Zeyad san Type: BLOOD SPECIMENOrdering Facility: [facility] Address: [address] [place] [address] Result Comment: ADDITIONAL INFORMATION This test was developed and its performance characteristics determined by [facility] in a manner consistent with CLIA requirements. This test has not been cleared or approved by the U.S. Food and Drug Administration. Performed By: ###Jose Alejandro LEGGETT ####[facility] LABCLIA [id number] [place] [address] ANTI-NEURONAL NUC AB, TYPE 1 Negative Normal Negative [facility] Comment on above: Order Comment: Zeyad san Type: BLOOD SPECIMENOrdering Facility: [facility] Address: [address] [place] [address] Result Comment: ADDITIONAL INFORMATION This test was developed and its performance characteristics determined by [facility] in a manner consistent with CLIA requirements. This test has not been cleared or approved by the U.S. Food and Drug Administration. Performed By: #### Codi ROATHY ####[facility] LABCLIA [id number] [place] [address] ANTI-NEURONAL NUC AB, TYPE 2 Negative Normal Negative [facility] Comment on above: Order Comment: Zeyad jaswinder Type: BLOOD SPECIMENOrdering Facility: [facility] Address: [address] [place] [address] Result Comment: ADDITIONAL INFORMATION This test was developed and its performance characteristics determined by [facility] in a manner consistent with CLIA requirements. This test has not been cleared or approved by the U.S. Food and Drug Administration. Performed By: #### Codi ROATHY ####[facility] LABCLIA [id number] [place] [address] ANTI-NEURONAL NUC AB, TYPE 3 Negative Normal Negative [facility] Comment on above: Order Comment: Zeyad san Type: BLOOD SPECIMENOrdering Facility: [facility] Address: [address] [place] [address] Result Comment: ADDITIONAL INFORMATION This test was developed and its performance characteristics determined by [facility] in a manner consistent with CLIA requirements. This test has not been cleared or approved by the U.S. Food and Drug Administration. Performed By: #### Codi ROATHY ####[facility] LABCLIA [id number] [place] [address] AP3B2 IFA, S Negative Normal Negative [facility] Comment on above: Order Comment: Zeyad san Type: BLOOD SPECIMENOrdering Facility: [facility] Address: [address] [place] [address] Result Comment: ADDITIONAL INFORMATION This test was developed and its performance characteristics determined by [facility] in a manner consistent with CLIA requirements. This test has not been cleared or approved by the U.S. Food and Drug Administration. Performed By: #### M LPTHY ####[facility] LABCLIA [id number] [place] [address] AUTOIMMUNE MYELOPATHY INTERP, S SEE NOTE Normal [facility] Comment on above: Order Comment: Zeyad [facility] Type: BLOOD SPECIMENOrdering Facility: [facility] Address: [address] [place] [address] Result Comment: No i nformative autoantibodies were detected in this evaluation. However, a negative result does not exclude autoimmune myelopathy, idiopathic or paraneoplastic. Sensitivity and specificity of antibody testing are enhanced by testing both serum and CSF. Performed By: #### M LPTHY ####[facility] LABCLIA [id number] [place] [address] CRMP-5-IGG WESTERN BLOT, S ALSO USED BY TESTS: CRMWS Negative Normal Negative [facility] Comment on above: Order Comment: Zeyad san Type: BLOOD SPECIMENOrdering Facility: [facility] Address: [address] [place] [address] Result Comment: ADDITIONAL INFORMATION This test was developed and its performance characteristics determined by [facility] in a manner consistent with CLIA requirements. This test has not been cleared or approved by the U.S. Food and Drug Administration. Performed By: #### Codi LEGGETT ####[facility] LABCLIA [id number] [place] [address] DPPX AB CBA, S Negative Normal Negative [facility] Comment on above: Order Comment: Zeyad san Type: BLOOD SPECIMENOrdering Facility: [facility] Address: [address] [place] [address] Result Comment: ADDITIONAL INFORMATION This test was developed and its performance characteristics determined by [facility] in a manner consistent with CLIA requirements. This test has not been cleared or approved by the U.S. Food and Drug Administration. Performed By: #### Codi ROATHY ####[facility] LABCLIA [id number] [place] [address] NELSON-B-R AB CBA, S Negative Normal Negative [facility] Comment on above: Order Comment: Zeyad [facility] Type: BLOOD SPECIMENOrdering Facility: [facility] Address: [address] [place] [address] Result Comment: ADDITIONAL INFORMATION This test was developed and its performance characteristics determined by [facility] in a manner consistent with CLIA requirements. This test has not been cleared or approved by the U.S. Food and Drug Administration. Performed By: #### Codi LPTHY ####[facility] LABCLIA [id number] [place] [address] GAD65 ANTIBODY 0.00 nmol/L Normal <= 0.02 [facility] Comment on above: Order Comment: Zeyad jaswinder Type: BLOOD SPECIMENOrdering Facility: [facility] Address: [address] [place] [address] Result Comment: ADDITIONAL INFORMATION This test was developed and its performance characteristics determined by [facility] in a manner consistent with CLIA requirements. This test has not been cleared or approved by the U.S. Food and Drug Administration. Performed By: #### Codi ROATHY ####[facility] LAB[facility]IA [id number] [place] [id number] GFAP IFA, S Negative Normal Negative [facility] Comment on above: Order Comment: Zeyad [facility] Type: BLOOD SPECIMENOrdering Facility: [facility] Address: [address] [place] [address] Result Comment: ADDITIONAL INFORMATION This test was developed and its performance characteristics determined by [facility] in a manner consistent with CLIA requirements. This test has not been cleared or approved by the U.S. Food and Drug Administration. Performed By: #### Codi ROATHY ####[facility] [id number] [place] [address] IFA NOTES (MLPTHY) None. Normal [facility] Comment on above: Order Comment: Zeyad [facility] Type: BLOOD SPECIMENOrdering Facility: [facility] Address: [address] [place] [address] Performed By: #### Codi ROATHY ####[facility]CL[facility] [id number] [place] [address] MGLUR1 AB IFA, S Negative Normal Negative [facility] Comment on above: Order Comment: Zeyad san Type: BLOOD SPECIMENOrdering Facility: [facility] Address: [address] [place] [address] Result Comment: ADDITIONAL INFORMATION This test was developed and its performance characteristics determined by [facility] in a manner consistent with CLIA requirements. This test has not been cleared or approved by the U.S. Food and Drug Administration. Performed By: #### Codi LPTHY ####[facility] [id number] [place] [address] MYELIN OLIGODENDROCYTE GLYCOPROTEIN (MOG-IGG1) FLUORESCENCE-ACTIVATED CELL Negative Normal Negative [facility] Comment on above: Order Comment: Zeyad jaswnider Type: BLOOD SPECIMENOrdering Facility: [facility] Address: [address] [place] [address] Result Comment: ADDITIONAL INFORMATION This test was developed and its performance characteristics determined by [facility] in a manner consistent with CLIA requirements. This test has not been cleared or approved by the U.S. Food and Drug Administration. Performed By: #### Codi LPTHY ####[facility] [id number] [place] [address] NEUROCHONDRIN IFA , S Negative Normal Negative [facility] Comment on above: Order Comment: Zeyad jaswinder Type: BLOOD SPECIMENOrdering Facility: [facility] Address: [address] [place] [address] Result Comment: ADDITIONAL INFORMATION This test was developed and its performance characteristics determined by [facility] in a manner consistent with CLIA requirements. This test has not been cleared or approved by the U.S. Food and Drug Administration. Performed By: #### Codi LPTHY ####[facility]CL[facility] [id number] [place] [address] NIF IFA, S Negative Normal Negative [facility] Comment on above: Order Comment: Zeyad san Type: BLOOD SPECIMENOrdering Facility: [facility] Address: [address] [place] [address] Result Comment: ADDITIONAL INFORMATION This test was developed and its performance characteristics determined by [facility] in a manner consistent with CLIA requirements. This test has not been cleared or approved by the U.S. Food and Drug Administration. Performed By: #### Codi ROATHY ####[facility]CLIA [id number] [place] [address] NMO/AQPF FACS, S Negative Normal Negative [facility] Comment on above: Order Comment: Zeyad san Type: BLOOD SPECIMENOrdering Facility: [facility] Address: [address] [place] [address] Result Comment: ADDITIONAL INFORMATION This test was developed and its performance characteristics determined by [facility] in a manner consistent with CLIA requirements. This test has not been cleared or approved by the U.S. Food and Drug Administration. Performed By: #### Codi ROATHY ####[facility]CLIA [id number] [place] [address] PURKINJE CELL CYTO AB, TYPE 1 Negative Normal Negative [facility] Comment on above: Order Comment: Zeyad san Type: BLOOD SPECIMENOrdering Facility: [facility] Address: [address] [place] [address] Result Comment: ADDITIONAL INFORMATION This test was developed and its performance characteristics determined by [facility] in a manner consistent with CLIA requirements. This test has not been cleared or approved by the U.S. Food and Drug Administration. Performed By: #### Codi ROATHY ####[facility] [id number] [place] [address] PURKINJE CELL CYTO AB, TYPE 2 Negative Normal Negative [facility] Comment on above: Order Comment: Zeyad san Type: BLOOD SPECIMENOrdering Facility: [facility] Address: [address] [place] [address] Result Comment: ADDITIONAL INFORMATION This test was developed and its performance characteristics determined by [facility] in a manner consistent with CLIA requirements. This test has not been cleared or approved by the U.S. Food and Drug Administration. Performed By: #### Codi ROATHY ####[facility] [id number] [place] [address] SEPTIN-7 IFA, S Negative Normal Negative [facility] Comment on above: Order Comment: Zeyad [facility] Type: BLOOD SPECIMENOrdering Facility: [facility] Address: [address] [place] [address] Result Comment: ADDITIONAL INFORMATION This test was developed and its performance characteristics determined by [facility] in a manner consistent with CLIA requirements. This test has not been cleared or approved by the U.S. Food and Drug Administration. Performed By: #### Codi ROATHY ####[facility]CL[facility] [id number] [place] [address] TRIM46 AB IFA, S Negative Normal Negative [facility] Comment on above: Order Comment: Zeyad san Type: BLOOD SPECIMENOrdering Facility: [facility] Address: [address] [place] [address] Result Comment: ADDITIONAL INFORMATION This test was developed and its performance characteristics determined by [facility] in a manner consistent with CLIA requirements. This test has not been cleared or approved by the U.S. Food and Drug Administration. Test Performed by: [facility] [address] [place] [address] Residential Worker: Lilli Fernandez Ph.D.; CLIA# [id number] Performed By: #### M LPTHY ####[facility] LABCLIA [id number] [place] [address] Magnesium SerPl-mCncon 06-09 Magnesium [Mass/Vol] 2.1 mg/dL Normal 1.7-2.3 [facility] Comment on above: Order Comment: Speci men Type: BLOOD SPECIMENOrdering Facility: [facility] Address: [address] [place] [address] Performed By: #### 2 4323-8, 95682-3 ####[facility] LABORATORYCLIA [id number] [place] [address] [place] T4 Free SerPl-mCncon 025 Free T4 [Mass/Vol] 1.1 ng/dL Normal 0.9-1.7 [facility] Comment on above: Order Comment: Speci men Type: BLOOD SPECIMENOrdering Facility: [facility] Address: [address] [place] [address] Performed By: #### 2 132-9, 3024-7 ####[facility] LABORATORYCLIA [id number] [place] [address] [place] VITAMIN B1 (THIAMINE), WHOLE BLOODon 06-09-2024 Thiamine (Bld) [Moles/Vol] 177.0 nmol/L Normal 84.3-213.3 [facility] Comment on above: Order Comment: Speci men Type: BLOOD SPECIMENOrdering Facility: [facility] Address: [address] [place] [address] Result Comment: This assay measures the concentration of thiamine diphosphate (TDP), the primary active form of vitamin B1. Approximately 90 percent of vitamin B1 present in whole blood is TDP. Thiamine and thiamine monophosphate, which comprise the remaining 10 percent, are not measured. This test was developed, and its performance characteristics determined by the [facility] Department of Pathology and Laboratory Medicine. It has not been cleared or approved by the FDA. The [facility] Department of Pathology and Laboratory Medicine is regulated under CLIA as qualified to perform high-complexity testing. This test is used for clinical purposes. It should not be regarded as investigational or for research. Performed By: #### B 1WB ####[facility] LABCLIA [id number] [address] [place] Vit B12 SerPl-mCncon 025 Cobalamin (Vitamin B12) [Mass/Vol] 515 pg/mL Normal 232-1245 [facility] Comment on above: Order Comment: Speci men Type: BLOOD SPECIMENOrdering Facility: [facility] Address: [address] [place] [address] Performed By: #### 2 132-9, 3024-7 ####[facility] LABORATORYCLIA [id number] [address] STATES OF [facility] XR CHEST 2V FRONTAL/LATon XR CHEST 2V [...] tissues: Unremarkable. IMPRESSION: No acute radiographic abnormality. Tablet Technician: PSCB Transcribe Date/Time: Jun 09 2024 9:30A Dictated by : LINDA GARCIA MD This examination was interpreted and the report reviewed and electronically signed by: LINDA GARCIA MD on Jun 09 2024 9:34AM EST [id number] N Normal [facility] CNOVon 06-06-2024 CNOV Office Visit (CARDAGHWW) HAYDEN PENDLETON ([id number]) 1965 M Date Time Provider Department 06/06/24 [...] he had an exercise stress echo at [facility] and was referred here to see a boat driver after that. I do not have any records from his PCPs office. 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 He underwent four-vessel CABG on 10/25/[address] Alonso. Postop course was uneventful. He has been enrolled in cardiac rehab at [facility]. I received notification from them that [...] evaluation. He said he went to the [facility] on Wednesday. He said they did EKG and blood work and sent him home to follow-up with a boat driver. 10/15/2021: Patient was started on Imdur at [...] breath gets worse. He recently saw a observer gravity prospecting who did a lung cancer screening CAT scan. Additionally he also had PFTs done recently and is due to see the observer gravity prospecting in follow-up next week. 02/23/2023: Patient denies [...] where CT (more content not included)... Normal [facility] ECG B/O W INTERP (MED OFFICE )on 06-06-2024 Interpretation and review of laboratory results Abnormal [facility] Sinus rhythm with frequent PVCs. [facility] Testosterone, Total / Freeon 05-27-2024 TESTOSTER,FREE 14.88 ng/dL Normal 5.00-21.00 [facility] Comment on above: Order Comment: N Performed By: #### L 3600.4030, L3100.3425 #### [facility] Laboratory [address] [place], [place], [address] TESTOSTER,TOTAL 399 ng/dL Normal 264-916 [facility] Comment on above: Order Comment: N Result Comment: Adul t male reference interval is based on a population of healthy nonobese males (BMI <30) between 19 and 39 years old. Devan et.al. JCEM 2017,102;1575-5332. PMID: [id number]. Performed By: #### L 3600.4030, L3100.3425 #### [facility] [address] [place], [address] TESTOSTERONE,%F 3.73 Normal 1.50-4.20 [facility] Comment on above: Order Comment: N Result Comment: Perf ormed at: [address] [id number] Residential Worker: Loy Lopez PhD, Phone: [phone] Performed at: [facility] Lab[address], [place] [id number] Residential Worker: Sylvia Chapman MD, Phone: [phone] Performed By: #### L 3600.4030, I7389.3420 #### [facility] [address] [place], [address] Absolute lymphocyte countOrd ered By: Joi Woodson on 05-26-2024 Lymphocytes Auto (Unsp spec) [#/Vol] 3.17 10*3/uL 0.83-4.51 [facility] Absolute neutrophil countOrd ered By: Joi Woodson on 05-26-2024 Neutrophils (Bld) [#/Vol] 3.4 10*3/uL 2.0-7.7 [facility] Anion gap in Serum or Plasma Ordered By: Joi Woodson on 05-26-2024 Anion gap [Moles/Vol] 13 mmol/L 5-15 [facility] Automated lymphocyte count a s percentage of total leukocytesOrdered By: Joi Woodson on 05-26-2024 Lymphocytes/100 WBC Auto (Unsp spec) 42.0 % High 19-41 [facility] BUN/creatinine ratioOrdered By: Joi Woodson on 05-26-2024 Urea nitrogen/Creatinine [Mass ratio] 11.7 mg/mg 10- [facility] Basic Metabolic Profile (BMP )on 05-26-2024 BUN/CRE 11.7 RATIO Normal - [facility] Comment on above: Order Comment: Comme nts: NPO at [place] prior to lipid panel Performed By: #### L 500.2500, L500.4100, L100.0100 #### [facility] [address] [place], [address] Calcium [Mass/Vol] 10.0 mg/dL Normal 7.6-11.0 [facility] Comment on above: Order Comment: Comme nts: NPO at [place] prior to lipid panel Performed By: #### L 500.2500, L500.4100, L100.0100 #### [facility] [address] [place], [address] Chloride [Moles/Vol] 103 mmol/L Normal 98-108 [facility] Comment on above: Order Comment: Comme nts: NPO at [place] prior to lipid panel Performed By: #### L 500.2500, L500.4100, L100.0100 #### [facility] [address] [place], [address] CO2 [Moles/Vol] 24.1 mmol/L Normal 21.0-32.0 [facility] Comment on above: Order Comment: Comme nts: NPO at [place] prior to lipid panel Performed By: #### L 500.2500, L500.4100, L100.0100 #### [facility] [address] [place], [address] Creatinine [Mass/Vol] 1.24 mg/dL High 0.70-1.20 [facility] Comment on above: Order Comment: Comme nts: NPO at [place] prior to lipid panel Performed By: #### L 500.2500, L500.4100, L100.0100 #### [facility] [address] [place], [address] ECRCL 74.28 ml/min Normal 50-250 [facility] Comment on above: Order Comment: Comme nts: NPO at [place] prior to lipid panel Performed By: #### L 500.2500, L500.4100, L100.0100 #### [facility] [address] [place], [address] GAP 13 Normal 5-15 [facility] Comment on above: Order Comment: Comme nts: NPO at [place] prior to lipid panel Performed By: #### L 500.2500, L500.4100, L100.0100 #### [facility] [address] [place], [address] GFR/1.73 sq M.predicted among non-blacks MDRD (S/P/Bld) [Vol rate/Area] 68 mL/min/{1.73_m2} Normal >60 [facility] Comment on above: Order Comment: Comme nts: NPO at [place] prior to lipid panel Result Comment: mL/m in/1.73m2 CKD-EPI Creatinine Equation (2020) Performed By: #### L 500.2500, L500.4100, L100.0100 #### [facility] [address] [place], [address] Glucose [Mass/Vol] 105 mg/dL High 70-99 [facility] Comment on above: Order Comment: Comme nts: NPO at [place] prior to lipid panel Performed By: #### L 500.2500, L500.4100, L100.0100 #### [facility] [address] [place], [address] Potassium [Moles/Vol] 4.0 mmol/L Normal 3.3-5.1 [facility] Comment on above: Order Comment: Comme nts: NPO at [place] prior to lipid panel Performed By: #### L 500.2500, L500.4100, L100.0100 #### [facility] [address] [place], [address] Sodium [Moles/Vol] 140 mmol/L Normal 133-145 [facility] Comment on above: Order Comment: Comme nts: NPO at [place] prior to lipid panel Performed By: #### L 500.2500, L500.4100, L100.0100 #### [facility] [address] [place], [address] Urea nitrogen [Mass/Vol] 15 mg/dL Normal 4-19 [facility] Comment on above: Order Comment: Comme nts: NPO at [place] prior to lipid panel Performed By: #### L 500.2500, L500.4100, L100.0100 #### [facility] [address] [place], [address] Basophil percentageOrdered B y: Joi Woodson on 05-26-2024 Basophils/100 WBC (Bld) 1.3 % High 0-1 [facility] CBC W/Diff, Automatedon 04-0 -2024 Absolute Lymph 3.17 X10 3/uL Normal 0.83-4.51 [facility] Comment on above: Performed By: #### L 500.2500, L500.4100, L100.0100 #### [facility] [address] [place], [address] Absolute Neut 3.4 X10 3/uL Normal 2.0-7.7 [facility] Comment on above: Performed By: #### L 500.2500, L500.4100, L100.0100 #### [facility] [address] [place], [address] Basophils/100 WBC (Bld) 1.3 % High 0-1 [facility] Comment on above: Performed By: #### L 500.2500, L500.4100, L100.0100 #### [facility] [address] [place], [address] Eosinophils/100 WBC (Bld) 4.9 % Normal 0-5 [facility] Comment on above: Performed By: #### L 500.2500, L500.4100, L100.0100 #### [facility] [address] [place], [address] Erythrocyte distribution width (RBC) [Ratio] 14.1 % Normal 11.6-14.6 [facility] Comment on above: Performed By: #### L 500.2500, L500.4100, L100.0100 #### [facility] [address] [place], [address] Hematocrit (Bld) [Volume fraction] 41.9 % Normal 40-54 [facility] Comment on above: Performed By: #### L 500.2500, L500.4100, L100.0100 #### [facility] [address] [place], [address] Hemoglobin (Bld) [Mass/Vol] 14.7 g/dL Normal 13.0-16.5 [facility] Comment on above: Performed By: #### L 500.2500, L500.4100, L100.0100 #### [facility] [address] [place], [address] IG% 0.300 Normal 0.0-0.9 [facility] Comment on above: Result Comment: IG% - Immature Granulocytes (promyelocytes, myelocytes and metamyelocytes) > 1% indicates that a LEFT SHIFT is Present. Performed By: #### L 500.2500, L500.4100, L100.0100 #### [facility] [address] [place], [address] Lymphocytes/100 WBC (Bld) 42.0 % High 19-41 [facility] Comment on above: Performed By: #### L 500.2500, L500.4100, L100.0100 #### [facility] [address] [place], [address] MCH (RBC) [Entitic mass] 28.1 pg Normal 27.0-32.0 [facility] Comment on above: Performed By: #### L 500.2500, L500.4100, L100.0100 #### [facility] [address] [place], [address] MCHC (RBC) [Mass/Vol] 35.1 g/dL Normal 32-36 [facility] Comment on above: Performed By: #### L 500.2500, L500.4100, L100.0100 #### [facility] [address] [place], [address] MCV (RBC) [Entitic vol] 80.1 fL Normal 80-94 [facility] Comment on above: Performed By: #### L 500.2500, L500.4100, L100.0100 #### [facility] [address] [place], [address] Monocytes/100 WBC (Bld) 6.0 % Normal 0-10 [facility] Comment on above: Performed By: #### L 500.2500, L500.4100, L100.0100 #### [facility] [address] [place], [address] Neutrophils/100 WBC (Bld) 45.5 % Low 47-70 [facility] Comment on above: Performed By: #### L 500.2500, L500.4100, L100.0100 #### [facility] [address] [place], [address] Nucleated RBC (Bld) [#/Vol] 0 10*3/uL Normal 0-5 [facility] Comment on above: Performed By: #### L 500.2500, L500.4100, L100.0100 #### [facility] [address] [place], [address] Platelet mean volume (Bld) [Entitic vol] 9.8 fL Normal 6.2-12.0 [facility] Comment on above: Performed By: #### L 500.2500, L500.4100, L100.0100 #### [facility] [address] [place], [address] Platelets (Bld) [#/Vol] 276 10*3/uL Normal 150-450 [facility] Comment on above: Performed By: #### L 500.2500, L500.4100, L100.0100 #### [facility] [address] [place], [address] RBC (Bld) [#/Vol] 5.23 10*6/uL Normal 4.6-6.2 [facility] Comment on above: Performed By: #### L 500.2500, L500.4100, L100.0100 #### [facility] Laboratory [address] [place], [address] RDW SD 40.8 fl Normal 35.1-43.9 [facility] Comment on above: Performed By: #### L 500.2500, L500.4100, L100.0100 #### [facility] Laboratory [address] [place], [address] WBC (Bld) [#/Vol] 7.5 10*3/uL Normal 4.4-11.0 [facility] Comment on above: Performed By: #### L 500.2500, L500.4100, L100.0100 #### [facility] Laboratory [address] [place], [address] Calculated very low density lipoprotein (VLDL) cholesterol measurementOrdered By: Joi Woodson on 05-26-2024 Calculated very low density lipoprotein (VLDL) cholesterol measurement 71 mg/dL [facility] 540 [facility] VLDL Cholesterol 71 mg/dL [facility] 5-40 [facility] Carbon dioxide, total [Moles /volume] in Central venous bloodOrdered By: Joi Woodson on 05-26-2024 CO2 [Moles/Vol] 24.1 mmol/L 21.0-32.0 [facility] Chloride assayOrdered By: Na taan Woodson on 05-26-2024 Chloride [Moles/Vol] 103 mmol/L 98-108 [facility] Discharge Instructionon 040 Discharge Instruction [facility] Medical Records Department [address] [place] [address] Instructions for Home/Discharge Instructions 05/26/24 1342 MR#: [id number] Acct: [id number] Name: HAYDEN PENDLETON Rep #: [id number] : 1965 59 From: Marcos Lovelace DO PCP: SEBASTIÁN Pathak Status:ADM DAJA Discharge [...] Beck; Tigre Masterson; Hanna Hammond; Bonnie Vicente; Lonivivek Man; Alvin Ward; Ozzie Gibbs; Sabas Piedra; Kaylan [...] BID Referrals / Follow Up: Jess Rosas [facility], WORSHIP LEADER-C [Primary Care Provider] - Disposition Disposition (needs filled in before D/C Order can be placed): Home, Self Care 05/26/24 1350 Marcos Lovelace DO CC: Jie Palacio; Hanna Hammond; SEBASTIÁN Rosas; Alvin Ward; Ashanti Leslie MD; Mariana Stiles MD; Nilo Hill MD; Dr. Radha Leyva MD; Dr. Christiano Garcia MD; Dr. Mary Walls MD; Dr. Abhay Sin MD; Dr. Washington Masters MD; Dr. Иван Rutledge MD; Dr. Tigre Masterson, ; Dr. Benja Ivey MD; Dr. Bonnie Vicente MD; Dr. Joi Woodson MD; Dr. Ozzie Gibbs MD; Dr. Sbaas Piedra MD; Dr. Kaylan Paulino MD; Renee Beck DO; Ravi Fonseca MD Signed Normal [facility] Echocardiogram study reportO rdered By: Tom Medina on 05-26-2024 Study report [facility] Cardiovascular Services [address] [place] [address] Echo Complete 05/26/24 0830 MR#: [id number] Acct: [id number] Name: HAYDEN PENDLETON Rep #:[id number] : 1965 59 From: Tom Ly Attending Dr: Dr. Marcos Lovelace, DO Status: ADM DAJA Ordering Dr: Joi [...] Chucky Maya Performed By: Patrizia Rivera RDCS 05/26/24 1225 Date _ Tom Medina MD CC: SEBASTIÁN Rosas; Dr. Marcos Lovelace DO; Dr. Joi Woodson MD; Dr. Chucky Maya DO ~ Date Dictated: 05/26/24 0830 Date Transcribed: 05/26/24 1224 Tablet Technician: Signed [facility] Work Phone: [phone] Electrocardiogram reportOrde red By: Tom Medina on 05-26-2024 EKG study [facility] Cardiovascular Services [address] [place] [address] 12 Lead EKG 05/25/24 1233 MR#: [id number] Acct: [id number] Name: HAYDEN PENDLETON Rep #:[id number] : 1965 59 From: Tom Medina MD Attending Dr: Dr. Marcos Lovelace DO Status: ADM DAJA Ordering Dr: Chucky Maya DO Date: 5 Location: [facility] Sex: M C Admitted: 05/25/24 Test Reason : DIZZINESS Blood Pressure : */* mmHG Vent. Rate : 69 BPM Atrial Rate : 69 BPM P-R Int : 208 ms QRS Dur : 86 ms QT Int : 372 ms P-R-T Axes : 60 85 79 degrees QTcB Int : 398 ms Normal sinus rhythm Normal ECG Confirmed by TOM MEDINA MD ([id number]), general expeditor HEATHER PERALTA ([id number]) on 05/26/2024 9:33:56 AM Referred By: Chucky Maya Confirmed By: TOM MEDINA MD 05/26/24 0933 Date _ Tom Medina MD CC: SEBASTIÁN Rosas; Dr. Marcos Lovelace DO; Dr. Chucky Maya DO ~ Signed [facility] Work Phone: [phone] Eosinophil percentageOrdered By: Joi Woodson on 05-26-2024 Eosinophils/100 WBC (Bld) 4.9 % 0-5 [facility] Erythrocyte distribution wid th (RBC) [Ratio]Ordered By: Joi Woodson on 05-26-2024 Erythrocyte distribution width (RBC) [Entitic vol] 40.8 fL 35.1-43.9 [facility] Erythrocyte distribution wid th ratioOrdered By: Joi Woodson 05-26-2024 Erythrocyte distribution width (RBC) [Ratio] 14.1 % 11.6-14.6 [facility] Erythrocyte distribution wid th standard deviationOrdered By: Joi Woodson 05-26-2024 Erythrocyte distribution width (RBC) [Ratio] 40.8 fl 35.1-43.9 [facility] Estimation of creatinine omar aranceOrdered By: Joi Woodson on 05-26-2024 Estimated Creatinine Clearance Calc 74.28 ml/min 50-250 [facility] GFR/1.73 sq M.predicted edgar g non-blacks MDRD (S/P/Bld) [Vol rate/Area]Ordered By: Joi Woodson 05-26-2024 Estimated GFR (MDRD) Non-Af Amer 68 >60 [facility] Comment on above: mL/min/1.73m2 CKD-EP I Creatinine Equation (2020) Glomerular filtration rate ( GFR) estimation/1.73 sq m using serum, plasma, or whole bOrdered By: Joi Woodson 05-26-2024 GFR/1.73 sq M.predicted among non-blacks MDRD (S/P/Bld) [Vol rate/Area] 68 mL/min/{1.73_m2} >60 [facility] Comment on above: mL/min/1.73m2 CKD-EP I Creatinine Equation (2020) Hematocrit Auto (Bld) [Volum e fraction]Ordered By: Joi Woodson 05-26-2024 Hematocrit (Bld) [Volume fraction] 41.9 % 40-54 [facility] Hemoglobin measurementOrdere d By: Joi Woodson 05-26-2024 Hemoglobin (Bld) [Mass/Vol] 14.7 g/dL 13.0-16.5 [facility] Immature granulocytes/100 WB C Auto (Bld)Ordered By: Joi Woodson 05-26-2024 Immature granulocytes/100 WBC (Bld) 0.300 % 0.0-0.9 [facility] Comment on above: IG% - Immature Granu locytes (promyelocytes, myelocytes and metamyelocytes) > 1% indicates that a LEFT SHIFT is Present. LDL calc ser/plasOrdered By: Joi Litravis on 05-26-2024 Cholesterol in LDL [Mass/Vol] 162 mg/dL [facility] Comment on above: Xrvhjlokxr=814-284 m g/dL & Higher Mfrt=733 mg/dL or greater LDL Cholesterol, Calculated 162 mg/dL [facility] Comment on above: Ciqwkyficg=751-048 m g/dL & Higher Gtmy=467 mg/dL or greater Lipid Profileon 05-26-2024 CHOL:HDL 8.62 Normal [facility] Comment on above: Order Comment: Comme nts: NPO at [place] prior to lipid panel Performed By: #### L 500.2500, L500.4100, L100.0100 #### [facility] Laboratory [address] [place], [address] Cholesterol [Mass/Vol] 263 mg/dL High <=200 [facility] Comment on above: Order Comment: Comme nts: NPO at [place] prior to lipid panel Result Comment: Chol esterol level, Desirable <200 mg/dL Borderline high cholesterol 200-239 mg/dL High cholesterol >=240 mg/dL Recommendations of the NCEP Adult Treatment Panel for the following risk-cutoff thresholds for the [place] population. Performed By: #### L 500.2500, L500.4100, L100.0100 #### [facility] Laboratory [address] [place], [address] Cholesterol in HDL [Mass/Vol] 31 mg/dL Low [facility] Comment on above: Order Comment: Comme nts: NPO at [place] prior to lipid panel Result Comment: Hetal onal Cholesterol Education Program (NCEP) guidelines: <40 mg/dL: Low HDL-cholesterol (major risk factor for CHD) >= 60 mg/dL: High HDL-cholesterol (negative risk factor for CHD) HDL-cholesterol is affected by a number of factors, e.g. smoking, exercise, hormones, sex and age. Performed By: #### L 500.2500, L500.4100, L100.0100 #### [facility] Laboratory [address] [place], [address] Cholesterol in LDL [Mass/Vol] 162 mg/dL Normal [facility] Comment on above: Order Comment: Comme nts: NPO at [place] prior to lipid panel Result Comment: Bord pqilhs=774-389 mg/dL Higher Ypqa=299 mg/dL or greater Performed By: #### L 500.2500, L500.4100, L100.0100 #### [facility] Laboratory [address] [place], [address] Cholesterol in VLDL [Mass/Vol] 71 mg/dL High 5-40 [facility] Comment on above: Order Comment: Comme nts: NPO at [place] prior to lipid panel Performed By: #### L 500.2500, L500.4100, L100.0100 #### [facility] Laboratory [address] [place], [address] Triglyceride [Mass/Vol] 355 mg/dL High [facility] Comment on above: Order Comment: Comme nts: NPO at [place] prior to lipid panel Result Comment: The drugs N-Acetylcysteine and Metamizole may falsely depress this assay. Normal range: <150 mg/dL Borderline High: 150-199 mg/dL High: 200-499 mg/dL Very High: >500 mg/dL Performed By: #### L 500.2500, L500.4100, L100.0100 #### [facility] Laboratory [address] [place], [address] Lymphocytes Auto (Unsp spec) [#/Vol]Ordered By: Joi Woodson on 05-26-2024 Lymphocytes (Bld) [#/Vol] 3.17 10*3/uL 0.83-4.5 1 [facility] Lymphocytes/100 WBC Auto (Un sp spec)Ordered By: Joi Woodson on 05-26-2024 Lymphocytes/100 WBC (Bld) 42.0 % High 19-41 [facility] MCV (mean corpuscular volume ) determinationOrdered By: Joi Woodson on 05-26-2024 MCV (RBC) [Entitic vol] 80.1 fL 80-94 [facility] MR/CON.PCM.NEon 05-26-2024 MR/CON.PCM.NE [facility] Medical Records Department [address] [place] [address] Consultation - Neurology 05/26/24 1039 MR#: [id number] Acct: [id number] Name: HAYDEN PENDLETON Rep #: [id number] : 1965 59 From: Ashanti Leslie MD PCP: Jess Rosas, WORSHIP LEADER-C Status:DIS DAJA Location: [place] [address] Assessment and Plan: Neuro Assessment/Plan HAYDEN PENDLETON [...] last episode prior to 2019 was in 2019. Vestibular rehabilitation was of only very brief [...] of pronounc (more content not included)... Normal [facility] Mean corpuscular hemoglobin (MCH) determinationOrdered By: Joi Woodson on 05-26-2024 MCH (RBC) [Entitic mass] 28.1 pg 27.0-32.0 [facility] Mean corpuscular hemoglobin concentration (MCHC) determinationOrdered By: Joi Woodson on 05-26-2024 MCHC (RBC) [Mass/Vol] 35.1 g/dL 32-36 [facility] Mean platelet volume determi nationOrdered By: Joi Woodson on 05-26-2024 Platelet mean volume (Bld) [Entitic vol] 9.8 fL 6.2-12.0 [facility] Monocyte percentageOrdered B y: Joi Woodson on 05-26-2024 Monocytes/100 WBC (Bld) 6.0 % 0-10 [facility] Neutrophil percentageOrdered By: Joi Woodson on 05-26-2024 Neutrophils/100 WBC (Bld) 45.5 % Low 47-70 [facility] Nucleated red blood cell per centageOrdered By: Joi Woodson 05-26-2024 Nucleated RBC/100 WBC (Bld) [Ratio] 0 % 0-5 [facility] Platelet countOrdered By: Tana Woodson on 05-26-2024 Platelets (Bld) [#/Vol] 276 10*3/uL 150-450 [facility] Potassium (Unsp spec) [Mass/ Vol]Ordered By: Joi Woodson on 05-26-2024 Potassium [Moles/Vol] 4.0 mmol/L 3.3-5.1 [facility] Potassium measurement (mass/ volume)Ordered By: Joi Woodson on 05-26-2024 Potassium (Unsp spec) [Mass/Vol] 4.0 mmol/L 3.3-5.1 [facility] RBC Auto (Bld) [#/Vol]Ordere d By: Joi Woodson on 05-26-2024 RBC (Bld) [#/Vol] 5.23 10*6/uL 4.6-6.2 [facility] Screening total cholesterol/ high density lipoprotein (HDL) cholesterol ratioOrdered By: Joi Woodson on 05-26-2024 Cholesterol.total/Cholest igor in HDL [Mass ratio] 8.62 {ratio} [facility] Serum creatinine measurement (mass/volume)Ordered By: Joi Woodson on 05-26-2024 Creatinine [Mass/Vol] 1.24 mg/dL High 0.70-1.20 [facility] Serum glucose measurement (m ass/volume)Ordered By: Joi Woodson on 05-26-2024 Glucose [Mass/Vol] 105 mg/dL High 70-99 [facility] Serum or plasma calcium alexandrea urement (mass/volume)Ordered By: Joi Woodson on 05-26-2024 Calcium [Mass/Vol] 10.0 mg/dL 7.6-11.0 [facility] Serum or plasma cholesterol in HDL measurement (mass/volume)Ordered By: Joi Woodson on 05-26-2024 Cholesterol in HDL [Mass/Vol] 31 mg/dL Low >40 [facility] Comment on above: National Cholesterol Education Program (NCEP) guidelines:<40 mg/dL: Low HDL-cholesterol (major risk factor for CHD)>= 60 mg/dL: High HDL-cholesterol (negative risk factor for CHD)HDL-cholesterol is affected by a number of factors, e.g. smoking, exercise, hormones, sex and age. Serum or plasma cholesterol measurement (mass/volume)Ordered By: Joi Woodson on 05-26-2024 Cholesterol [Mass/Vol] 263 mg/dL High <201 [facility] Comment on above: Cholesterol level, D esirable <200 mg/dLBorderline high cholesterol 200-239 mg/dLHigh cholesterol >=240 mg/dLRecommendations of the NCEP Adult Treatment Panel for the following risk-cutoff thresholds for the [place] population. Serum or plasma urea nitroge n measurement (mass/volume)Ordered By: Joi Woodson on 05-26-2024 Urea nitrogen [Mass/Vol] 15 mg/dL 4-19 [facility] Sodium levelOrdered By: Joi Woodson on 05-26-2024 Sodium [Moles/Vol] 140 mmol/L 133-145 [facility] Triglycerides measurementOrd ered By: Joi oWodson on 05-26-2024 Triglyceride [Mass/Vol] 355 mg/dL High <199 [facility] Comment on above: The drugs N-Acetylcy steine and Metamizole may falsely depress this assay. Normal range: <150 mg/dLBorderline High: 150-199 mg/dLHigh: 200-499 mg/dLVery High: >500 mg/dL White blood cell (WBC) count Ordered By: Joi Woodson on 05-26-2024 WBC (Bld) [#/Vol] 7.5 10*3/uL 4.4-11.0 [facility] 12 Lead EKGon 05-25-2024 12 Lead EKG [facility] Cardiovascular Services [address] [place] [address] 12 Lead EKG 05/25/24 1233 MR#: [id number] Acct: [id number] Name: HAYDEN PENDLETON Rep #: [id number] : 1965 59 From: Tom Medina MD Attending Dr: Dr. Marcos Lovelace, Status : ADM DAJA Ordering Dr: Chucky Maya DO Date: 05/25/24 Location: [facility] Sex: M C Admitted: 05/25/24 Test Reason : DIZZINESS Blood Pressure : */* mmHG Vent. Rate : 69 BPM Atrial Rate : 69 BPM P-R Int : 208 ms QRS Dur : 86 ms QT Int : 372 ms P-R-T Axes : 60 85 79 degrees QTcB Int : 398 ms Normal sinus rhythm Normal ECG Confirmed by TOM MEDINA MD ([id number]), general expeditor HEATHER PERALTA ([id number]) on 05/26/2024 9:33:56 AM Referred By: Chucky Maya Confirmed By: TOM MEDINA MD 05/26/24 0933 Date Tom Medina MD CC: SEBASTIÁN Rosas; Dr. Marcos Lovelace DO; Dr. Chucky Maya, DO Signed Normal [facility] Absolute neutrophil countOrd ered By: Chucky Maya on 05-25-2024 Neutrophils (Bld) [#/Vol] 3.8 10*3/uL 2.0-7.7 [facility] Activated partial thrombopla stin time (aPTT) in platelet poor plasma by coagulation aOrdered By: Chucky Maya on 05-25-2024 aPTT Coag (PPP) [Time] 27.9 s 24.1-36.2 [facility] Anion gap in Serum or Plasma Ordered By: Chucky Maya on 05-25-2024 Anion gap [Moles/Vol] 13 mmol/L 5-15 [facility] Automated blood erythrocyte countOrdered By: Chucky Maya on 05-25-2024 RBC (Bld) [#/Vol] 5.61 10*6/uL Normal 4.6-6.2 [facility] Comment on above: Performed By: #### L 3600.4030, L3100.3425 #### [facility] Laboratory [address] [place], [address] Automated blood hematocrit ( percentage)Ordered By: Chucky Maya on 05-25-2024 Hematocrit (Bld) [Volume fraction] 45.0 % Normal 40-54 [facility] Comment on above: Performed By: #### L 3600.4030, L3100.3425 #### [facility] Laboratory [address] [place], [address] Automated lymphocyte count a s percentage of total leukocytesOrdered By: Chucky Maya on 05-25-2024 Lymphocytes/100 WBC (Bld) 37.0 % Normal 19-41 [facility] Comment on above: Performed By: #### L 3600.4030, L3100.3425 #### [facility] Laboratory [address] [place], [address] BUN/creatinine ratioOrdered By: Chucky Maya on 05-25-2024 Urea nitrogen/Creatinine [Mass ratio] 11.4 mg/mg 10-20 [facility] Basic Metabolic Profile (BMP )on 05-25-2024 BUN/CRE 11.4 RATIO Normal - [facility] Comment on above: Performed By: #### L 3600.4030, L3100.3425 #### [facility] Laboratory [address] [place], [address] Calcium [Mass/Vol] 10.2 mg/dL Normal 7.6-11.0 [facility] Comment on above: Performed By: #### L 3600.4030, L3100.3425 #### [facility] Laboratory [address] [place], [address] Chloride [Moles/Vol] 102 mmol/L Normal 98-108 [facility] Comment on above: Performed By: #### L 3600.4030, L3100.3425 #### [facility] Laboratory [address] [place], [address] CO2 [Moles/Vol] 25.4 mmol/L Normal 21.0-32.0 [facility] Comment on above: Performed By: #### L 3600.4030, L3100.3425 #### [facility] Laboratory [address] [place], [address] Creatinine [Mass/Vol] 1.32 mg/dL High 0.70-1.20 [facility] Comment on above: Performed By: #### L 3600.4030, L3100.3425 #### [facility] Laboratory [address] [place], [address] ECRCL 69.78 ml/min Normal 50-250 [facility] Comment on above: Performed By: #### L 3600.4030, L3100.3425 #### [facility] Laboratory [address] [place], [address] GAP 13 Normal 5-15 [facility] Comment on above: Performed By: #### L 3600.4030, L3100.3425 #### [facility] Laboratory [address] [place], [address] GFR/1.73 sq M.predicted among non-blacks MDRD (S/P/Bld) [Vol rate/Area] 63 mL/min/{1.73_m2} Normal >60 [facility] Comment on above: Result Comment: mL/m in/1.73m2 CKD-EPI Creatinine Equation (2020) Performed By: #### L 3600.4030, L3100.3425 #### [facility] Laboratory [address] [place], [address] Glucose [Mass/Vol] 111 mg/dL High 70-99 [facility] Comment on above: Performed By: #### L 3600.4030, L3100.3425 #### [facility] Laboratory [address] [place], [address] Potassium [Moles/Vol] 4.3 mmol/L Normal 3.3-5.1 [facility] Comment on above: Performed By: #### L 3600.4030, L3100.3425 #### [facility] Laboratory [address] [place], [address] Sodium [Moles/Vol] 140 mmol/L Normal 133-145 [facility] Comment on above: Performed By: #### L 3600.4030, L3100.3425 #### [facility] Laboratory [address] [place], [address] Urea nitrogen [Mass/Vol] 15 mg/dL Normal 4-19 [facility] Comment on above: Performed By: #### L 3600.4030, L3100.3425 #### [facility] Laboratory [address] [place], [address] Basophil percentageOrdered B y: Chucky Maya on 05-25-2024 Basophils/100 WBC (Bld) 1.6 % High 0-1 [facility] Comment on above: Performed By: #### L 3600.4030, L3100.3425 #### [facility] Laboratory [address] [place], [address] Brain without Contraston Brain without Contrast [facility] Imaging Services [address] [place] [address] Brain without Contrast MR#: [id number] Acct: [id number] Name: HAYDEN PENDLETON Rep #: [id number] : 1965 M 59 From: Anurag andujar MD PCP: SHIKHA PathakC Status: ADM DAJA Study: Brain without Contrast Date of Exam: 05/25/24 Exam# [id number] Ordering Dr: Joi Woodson MD PROCEDURE: BRAIN [...] Minimal chronic microvascular ischemic changes. [facility] CC: WORSHIP LEADERMervin Rosas; Dr. Joi Woodson MD Tablet Technician: Signed Normal [facility] CBC W/Diff, Automatedon Absolute Lymph 2.74 X10 3/uL Normal 0.83-4.51 [facility] Comment on above: Performed By: #### L 3600.4030, L3100.3425 #### [facility] Laboratory [address] [place], [address] Absolute Neut 3.8 X10 3/uL Normal 2.0-7.7 [facility] Comment on above: Performed By: #### L 3600.4030, L3100.3425 #### [facility] Laboratory [address] [place], [address] IG% 0.300 Normal 0.0-0.9 [facility] Comment on above: Result Comment: IG% - Immature Granulocytes (promyelocytes, myelocytes and metamyelocytes) > 1% indicates that a LEFT SHIFT is Present. Performed By: #### L 3600.4030, L3100.3425 #### [facility] Laboratory [address] [place], [address] Nucleated RBC (Bld) [#/Vol] 0 10*3/uL Normal 0-5 [facility] Comment on above: Performed By: #### L 3600.4030, L3100.3425 #### [facility] Laboratory [address] [place], [address] RDW SD 40.3 fl Normal 35.1-43.9 [facility] Comment on above: Performed By: #### L 3600.4030, L3100.3425 #### [facility] Laboratory [address] [place], [address] CTA Head AND Neck W/ Contras ton 05-25-2024 CTA Head AND Neck W/ Contrast [facility] Imaging Services [address] [place] [address] CTA Head AND Neck W/ Contrast MR#: [id number] Acct: [id number] Name: HAYDEN PENDLETON Rep #: [id number] : 1965 M 59 From: Robinson chin MD PCP: SEBASTIÁN [place] Status: REG ER Study: CTA Head AND Neck W/ Contrast Date of Exam: Exam# [id number] Ordering Dr: Chucky Maya DO ADDENDUM by Dr. Robinson Trammell MD on 05/25/24 at 1416 This is an addendum report. The unenhanced CT scan of the head is unremarkable. Reading Location: [facility] 05/25/24 1417 Date cc: SEBASTIÁN Rosas; Dr. Chucky Maya, DO * Signed PROCEDURE: CTA HEAD AND [...] RIGHT Vertebral: Unremarkable. LEFT Vertebral: Unremarkable. Anatomy: [place] anatomy is normal. Aneurysm or [...] causing approximately 50% stenosis. Reading Location: [facility] CC: SEBASTIÁN Rsoas; Dr. Chucky Maya, Tablet Technician: Signed Normal [facility] Carbon dioxide, total [Moles /volume] in Central venous bloodOrdered By: Chucky Maya on 05-25-2024 CO2 [Moles/Vol] 25.4 mmol/L 21.0-32.0 [facility] Chloride assayOrdered By: Óscar Myaa on 05-25-2024 Chloride [Moles/Vol] 102 mmol/L 98-108 [facility] Echo Completeon 05-25-2024 Echo Complete [facility] Cardi[facility] Services [address] [place] [address] Echo Complete 05/26/24 0830 MR#: [id number] Acct: [id number] Name: HAYDEN PENDLETON Rep #: [id number] : 1965 59 From: Tom Medina MD Attending Dr: Dr. Marcos Lovelace, Status : ADM DAJA Ordering Dr: Joi [...] Chucky Maya Performed By: Patrizia Rivera RDCS 05/26/241224 Date Tom Medina MD CC: SEBASTIÁN Rosas; Dr. Marcos Lovelace DO; Dr. Joi Woodson MD; Dr. Chucky Maya DO Date Dictated: 05/26/24829 Date Transcribed: 05/26/24 122 Tablet Technician: Signed Normal [facility] Emergency Department Summary on 05-25-2024 Emergency Department Summary [facility] Medical Records Department [address] [place] [address] Emergency Department Summary 05/25/24 MR#: [id number] Acct: [id number] Name: HAYDEN PENDLETON Rep #: [id number] : 1965 59 From: Chucky Landon PCP: Jess Rosas WORSHIP LEADER-C Status:ADM DAJA Location: [place] [address] HPI History of Present Illness Chief Complaint: [...] Pulse Rat (more content not included)... Normal [facility] Eosinophil percentageOrdered By: Chucky Maya on 05-25-2024 Eosinophils/100 WBC (Bld) 4.3 % Normal 0-5 [facility] Comment on above: Performed By: #### L 3600.4030, L3100.3429 #### [facility] Laboratory [address] [place], [place], [id number] Erythrocyte distribution wid th (RBC) [Ratio]Ordered By: Chucky Maya on 05-25-2024 Erythrocyte distribution width (RBC) [Entitic vol] 40.3 fL 35.1-43.9 [facility] Erythrocyte distribution wid th ratioOrdered By: Chucky Maya on 05-25-2024 Erythrocyte distribution width (RBC) [Ratio] 13.9 % Normal 11.6-14.6 [facility] Comment on above: Performed By: #### L 3600.4030, L3100.3425 #### [facility] Laboratory [address] [place], [place], [address] Estimation of creatinine omar aranceOrdered By: Chucky Maya on 05-25-2024 Estimated Creatinine Clearance Calc 69.78 ml/min 50-250 [facility] GFR/1.73 sq M.predicted edgar g non-blacks MDRD (S/P/Bld) [Vol rate/Area]Ordered By: Chucky Maya on 05-25-2024 Estimated GFR (MDRD) Non-Af Amer 63 >60 [facility] Comment on above: mL/min/1.73m2 CKD-EP I Creatinine Equation (2020) H AND P Exam - Hospitaliston 05-25-2024 H&P Exam - Hospitalist [facility] Medical Records Department [address] [place] [address] H P Exam - Hospitalist 05/25/24 1405 MR#: [id number] Acct: [id number] Name: HAYDEN PENDLETON Rep #: [id number] : 1965 59 From: Joi Woodson MD PCP: Jess Rosas WORSHIP LEADER-C Status:ADM DAJA Location: [place] [address] HPI - General General Date of Admission: [...] in the ED were Bp of 122/71, VA of 67, RR of 11 and oxygen sats of 97% on room air. CBC showed Hb of 15.1, wbc of 7.4 and platelets of 304. INR was 0.9. Chemistry showed sodium of 140, potassium of 4.3 and bicarb of 25.4. Anion gap is 13. Initial troponin was 7. CTA head and neck showed plaque [id number] at the origin of the right internal carotid artery causing <50% stenosis and atherosclerotic plaque formation at origin of the left internal carotid artery causing 50% stenosis. He is being admitted to be managed for persistent vertigo to rule out a stroke. [facility] Medical History (Updated 05/25/24 @ 17:37 by [...] or palpitatio (more content not included)... Normal [facility] Hemoglobin A1con 05-25-2024 HbA1c (Bld) [Mass fraction] 6.3 % Normal <=5.6 [facility] Comment on above: Performed By: #### L 3600.4030, L3100.3425 #### [facility] Laboratory [address], [place], [address] Hemoglobin A1c percentageOrd ered By: Joi Woodson on 05-25-2024 HbA1c (Bld) [Mass fraction] 6.3 % >5.7 [facility] Hemoglobin measurementOrdere d By: Chucky Maya on 05-25-2024 Hemoglobin (Bld) [Mass/Vol] 15.7 g/dL Normal 13.0-16.5 [facility] Comment on above: Performed By: #### L 3600.4030, L3100.3425 #### [facility] Laboratory [address] [place], [place], [id number] Immature granulocytes/100 WB C Auto (Bld)Ordered By: Chucky Maya on 05-25-2024 Immature granulocytes/100 WBC (Bld) 0.300 % 0.0-0.9 [facility] Comment on above: IG% - Immature Granu locytes (promyelocytes, myelocytes and metamyelocytes) > 1% indicates that a LEFT SHIFT is Present. International normalized rat io (INR) calculationOrdered By: Chucky Maya on 05-25-2024 INR Coag (Bld) [Relative time] 0.9 {INR} [facility] L499.0042on 05-25-2024 Trop T High Sen 6 ng/L Normal <=22 [facility] Comment on above: Performed By: #### L 3600.4030, L3100.3425 #### [facility] Laboratory [address] [place], [address] L499.0043on 05-25-2024 Trop T High Sen 6 ng/L Normal <=22 [facility] Comment on above: Performed By: #### L 499.0043 #### [facility] Laboratory [address] [place], [address] L501.4021on 05-25-2024 Trop T High Sen 7 ng/L Normal <=22 [facility] Comment on above: Performed By: #### L 3600.4030, L3100.3425 #### [facility] Laboratory [address] [place], [address] Lymphocytes Auto (Unsp spec) [#/Vol]Ordered By: Chucky Maya on 05-25-2024 Lymphocytes (Bld) [#/Vol] 2.74 10*3/uL 0.83-4.5 1 [facility] MCV (mean corpuscular volume ) determinationOrdered By: Chucky Maya on 05-25-2024 MCV (RBC) [Entitic vol] 80.2 fL Normal 80-94 [facility] Comment on above: Performed By: #### L 3600.4030, L3100.3425 #### [facility] Laboratory [address] [place], [address] Magnetic resonance imaging r eportOrdered By: Anurag Og on 05-25-2024 Study report [facility] Imaging Services [address] [place] [address] Brain without Contrast MR#: [id number] Acct: [id number] Name: HAYDEN PENDLETON Rep #: [id number] : 1965 M 59 From: Kristen Og MD PCP: SEBASTIÁN [place] Status: ADM DAJA Study:Brain without Contrast Date of Exam: 05/25/24 Exam# [id number] Ordering Dr: Tana Woodson MD PROCEDURE: BRAIN [...] chronic microvascular ischemic changes. Reading Location: [facility] CC: SEBASTIÁN Rosas; Dr. Joi Woodson MD ~ Tablet Technician: Signed [facility] Mean corpuscular hemoglobin (MCH) determinationOrdered By: Chucky Maya on 05-25-2024 MCH (RBC) [Entitic mass] 28.0 pg Normal 27.0-32.0 [facility] Comment on above: Performed By: #### L 3600.4030, L3100.3425 #### [facility] Laboratory [address] [place], [address] Mean corpuscular hemoglobin concentration (MCHC) determinationOrdered By: Chucky Maya on 05-25-2024 MCHC (RBC) [Mass/Vol] 34.9 g/dL Normal 32-36 [facility] Comment on above: Performed By: #### L 3600.4030, L3100.3425 #### [facility] Laboratory [address] [place], [address] Mean platelet volume determi nationOrdered By: Chucky Maya on 05-25-2024 Platelet mean volume (Bld) [Entitic vol] 9.7 fL Normal 6.2-12.0 [facility] Comment on above: Performed By: #### L 3600.4030, L3100.3425 #### [facility] Laboratory [address] [place], [address] Monocyte percentageOrdered B y: Chucky Maya on 05-25-2024 Monocytes/100 WBC (Bld) 5.5 % Normal 0-10 [facility] Comment on above: Performed By: #### L 3600.4030, L3100.3425 #### [facility] Laboratory [address] [place], [address] Neutrophil percentageOrdered By: Chucky Maya on 05-25-2024 Neutrophils/100 WBC (Bld) 51.3 % Normal 47-70 [facility] Comment on above: Performed By: #### L 3600.4030, L3100.3425 #### [facility] Laboratory [address] [place], [address] Nucleated red blood cell per centageOrdered By: Chucky Maya on 05-25-2024 Nucleated RBC/100 WBC (Bld) [Ratio] 0 % 0-5 [facility] Partial Thromboplast Timeon 05-25-2024 aPTT Coag (Bld) [Time] 27.9 s Normal 24.1-36.2 [facility] Comment on above: Performed By: #### L 3600.4030, L3100.3425 #### [facility] Laboratory [address] [place], [address] Platelet countOrdered By: Óscar Maya on 05-25-2024 Platelets (Bld) [#/Vol] 304 10*3/uL Normal 150-450 [facility] Comment on above: Performed By: #### L 3600.4030, L3100.3425 #### [facility] Laboratory [address] [place], [place], [address] Potassium (Unsp spec) [Mass/ Vol]Ordered By: Chucky Maya on 05-25-2024 Potassium [Moles/Vol] 4.3 mmol/L 3.3-5.1 [facility] Prothrombin Time w/INRon INR Coag (PPP) [Relative time] 0.9 {INR} Normal [facility] Comment on above: Performed By: #### L 3600.4030, L3100.3425 #### [facility] Laboratory [address] [place], [place], [address] PT Coag (PPP) [Time] 12.6 s Normal 11.7-14.9 [facility] Comment on above: Performed By: #### L 3600.4030, L3100.3425 #### [facility] Laboratory [address] [place], [address] Prothrombin timeOrdered By: Chucky Maya on 05-25-2024 PT Coag (PPP) [Time] 12.6 s 11.7-14.9 [facility] Serum creatinine measurement (mass/volume)Ordered By: Chucky Maya on 05-25-2024 Creatinine [Mass/Vol] 1.32 mg/dL High 0.70-1.20 [facility] Serum glucose measurement (m ass/volume)Ordered By: Chucky Maya on 05-25-2024 Glucose [Mass/Vol] 111 mg/dL High 70-99 [facility] Serum or plasma calcium alexandrea urement (mass/volume)Ordered By: Chucky Maya on 05-25-2024 Calcium [Mass/Vol] 10.2 mg/dL 7.6-11.0 [facility] Serum or plasma urea nitroge n measurement (mass/volume)Ordered By: Chucky Maya on 05-25-2024 Urea nitrogen [Mass/Vol] 15 mg/dL 4-19 [facility] Sodium levelOrdered By: Chucky Maya on 05-25-2024 Sodium [Moles/Vol] 140 mmol/L 133-145 [facility] Troponin T.cardiac High sens itivity method [Mass/Vol]Ordered By: Chucky Maya on 05-25-2024 Troponin T High Sensitivity 4 Hour 6 ng/L <22 [facility] Troponin T High Sensitivity 2 Hour 6 ng/L <22 [facility] Troponin T High Sensitivity 7 ng/L <22 [facility] Troponin T.cardiac [Mass/vol ume] in Serum or Plasma by High sensitivity methodOrdered By: Chucky Maya on 05-25-2024 Troponin T.cardiac High sensitivity method [Mass/Vol] 6 ng/L <22 [facility] Troponin T.cardiac High sensitivity method [Mass/Vol] 6 ng/L <22 [facility] Troponin T.cardiac High sensitivity method [Mass/Vol] 7 ng/L <22 [facility] White blood cell (WBC) count Ordered By: Chucky Maya on 05-25-2024 WBC (Bld) [#/Vol] 7.4 10*3/uL Normal 4.4-11.0 [facility] Comment on above: Performed By: #### L 3600.4030, L3100.3425 #### [facility] Laboratory [address] [place], [address] aPTT Coag (PPP) [Time]Ordere d By: Chucky Maya on 05-25-2024 aPTT Coag (Bld) [Time] 27.9 s 24.1-36.2 [facility] CBC W/Diff, Automatedon 03-2 Absolute Neut Normal 2.0-7.7 [facility] Comment on above: Result Comment: WRON G ORDER Performed By: #### L 3600.4030, L3100.3425 #### [facility] Laboratory [address] [place], [address] HCT Normal 40-54 [facility] Comment on above: Result Comment: WRON G ORDER Performed By: #### L 3600.4030, L3100.3425 #### [facility] Laboratory [address] [place], [address] HGB Normal 13.0-16.5 [facility] Comment on above: Result Comment: WRON G ORDER Performed By: #### L 3600.4030, L3100.3425 #### [facility] Laboratory [address] [place], [address] MCH Normal 27.0-32.0 [facility] Comment on above: Result Comment: WRON G ORDER Performed By: #### L 3600.4030, L3100.3425 #### [facility] Laboratory [address] [place], [address] MCHC Normal 32-36 [facility] Comment on above: Result Comment: WRON G ORDER Performed By: #### L 3600.4030, L3100.3425 #### [facility] Laboratory [address] [place], [address] MCV Normal 80-94 [facility] Comment on above: Result Comment: WRON G ORDER Performed By: #### L 3600.4030, L3100.3425 #### [facility] Laboratory [address] [place], [address] NEUT% Normal 47-70 [facility] Comment on above: Result Comment: WRON G ORDER Performed By: #### L 3600.4030, L3100.3425 #### [facility] Laboratory [address] [place], [address] PLT Normal 150-450 [facility] Comment on above: Result Comment: WRON G ORDER Performed By: #### L 3600.4030, L3100.3425 #### [facility] Laboratory [address] [place], [address] RBC Normal 4.6-6.2 [facility] Comment on above: Result Comment: WRON G ORDER Performed By: #### L 3600.4030, L3100.3425 #### [facility] Laboratory [address] [place], [address] RDW CV Normal 11.6-14.6 [facility] Comment on above: Result Comment: WRON G ORDER Performed By: #### L 3600.4030, L3100.3425 #### [facility] Laboratory [address] [place], [address] RDW SD Normal 35.1-43.9 [facility] Comment on above: Result Comment: WRON G ORDER Performed By: #### L 3600.4030, L3100.3425 #### [facility] Laboratory [address] [place], [address] WBC Normal 4.4-11.0 [facility] Comment on above: Result Comment: WRON G ORDER Performed By: #### L 3600.4030, L3100.3425 #### [facility] Laboratory [address] [place], [address] Free testosterone percentage Ordered By: Jess Rosas on 2024 Testosterone Free/Testosterone.total [Mass fraction] 3.73 % 1.50-4.20 [facility] Comment on above: Performed at: [address] [id number] Director: Loy Lopez PhD, Phone: [phone] at: [facility] [address] [id number] Director: Sylvia Chapman MD, Phone: [phone] Iron+Iron Binding Capacityon 2024 IRON Normal 65-175 [facility] Comment on above: Result Comment: WRON G ORDER Performed By: #### L 3600.4030, L3100.3425 #### [facility] Laboratory [address] [place], [address] IRON SATURATION Normal 9-55 [facility] Comment on above: Result Comment: WRON G ORDER Performed By: #### L 3600.4030, L3100.3425 #### [facility] Laboratory [address] [place], [address] TIBC Normal 250-450 [facility] Comment on above: Result Comment: WRON G ORDER Performed By: #### L 3600.4030, L3100.3425 #### [facility] Laboratory [address] [place], [address] UIBC Normal 228-428 [facility] Comment on above: Result Comment: WRON G ORDER Performed By: #### L 3600.4030, L3100.3425 #### [facility] Laboratory [address] [place], [address] Lipid Profileon 2024 TRIG Normal [facility] Comment on above: Result Comment: WRON G ORDER The drugs N-Acetylcysteine and Metamizole may falsely depress this assay. Performed By: #### L 3600.4030, L3100.3425 #### [facility] Laboratory [address] [place], [address] CHOL Normal <=200 [facility] Comment on above: Result Comment: WRON G ORDER Performed By: #### L 3600.4030, L3100.3425 #### [facility] Laboratory [address] [place], [address] CHOL:HDL Normal [facility] Comment on above: Result Comment: WRON G ORDER Performed By: #### L 3600.4030, L3100.3425 #### [facility] Laboratory [address] [place], [address] CLDL Normal [facility] Comment on above: Result Comment: WRON G ORDER Performed By: #### L 3600.4030, L3100.3425 #### [facility] Laboratory [address] [place], [address] HDL Normal [facility] Comment on above: Result Comment: WRON G ORDER Performed By: #### L 3600.4030, L3100.3425 #### [facility] Laboratory [address] [place], [address] VLDL Normal 5-40 [facility] Comment on above: Result Comment: SASCHA Jessica ORDER Performed By: #### L 3600.4030, L3100.3425 #### [facility] Laboratory [address] [place], [address] Serum or plasma free testost erone measurement (mass/volume)Ordered By: Jess Rosas on 2024 Testosterone Free [Mass/Vol] 14.88 ng/dL 5.00-21.00 [facility] Testosterone, totalOrdered B y: Jess Rosas on 2024 Testosterone [Mass/Vol] 399 ng/dL 264-916 [facility] Comment on above: Adult male reference interval is based on a population ofhealthy nonobese males (BMI <30) between 19 and 39 yearsold. Travison, et.al. JCEM 2017,102;1088-3215. PMID:93824164. Testosterone, Total / Freeon 02-28-2024 TESTOSTER,FREE 8.11 ng/dL Normal 5.00-21.00 [facility] Comment on above: Order Comment: N Performed By: #### L 500.2500, L500.4100, L100.0100 #### [facility] Laboratory [address] [place], [address] TESTOSTER,TOTAL 297 ng/dL Normal 264-916 [facility] Comment on above: Order Comment: N Result Comment: Adul t male reference interval is based on a population of healthy nonobese males (BMI <30) between 19 and 39 years old. Travison, et.al. JCEM 2017,102;8672-7747. PMID: [id number]. Performed By: #### L 500.2500, L500.4100, L100.0100 #### [facility] Laboratory [address] [place], [address] TESTOSTERONE,%F 2.73 Normal 1.50-4.20 [facility] Comment on above: Order Comment: N Result Comment: Perf ormed at: CB - [facility] [address], [place], [place] [id number] Residential Worker: Loy Lopez PhD, Phone: [phone] Performed at: [address] [id number] Residential Worker: Sylvia Chapman MD, Phone: [phone] Performed By: #### L 500.2500, L500.4100, L100.0100 #### [facility] Laboratory [address] [place], [place], [id number] Vitamin D 1,25-Dihydroxyon 0 02-26-2024 VIT D 1,25 DIHY 32.0 pg/mL Normal 24.8-81.5 [facility] Comment on above: Result Comment: Perf ormed at: [address] [id number] Residential Worker: Sylvia Chapman MD, Phone: [phone] Performed By: #### L 500.2500, L500.4100, L100.0100 #### [facility] Laboratory [address] [place], [place], [id number] 1,25-dihydroxyvitamin D3 [Ma ss/Vol]Ordered By: Jess Rosas on 02-24-2024 Vitamin D 1,25-Dihydroxy 32.0 pg/mL 24.8-81.5 [facility] Comment on above: Performed at: [address] [id number] Director: Sylvia Chapman MD, Phone: [phone] Absolute neutrophil countOrd ered By: Jess Rosas on 02-24-2024 Neutrophils (Bld) [#/Vol] 3.6 10*3/uL 2.0-7.7 [facility] Albumin to globulin ratioOrd ered By: Jess Rosas on 02-24-2024 Albumin/Globulin [Mass ratio] 1.0 {ratio} 0.9-2.4 [facility] Basophil percentageOrdered B y: Jess Rosas on 02-24-2024 Basophils/100 WBC (Bld) 1.4 % High 0-1 [facility] Bilirubin Test strip Ql (U)O rdered By: Jess Deisy on 02-24-2024 Bilirubin Ql (U) Negative Negative [facility] Bilirubin, totalOrdered By: Jess Rosas on 02-24-2024 Bilirubin [Mass/Vol] 0.40 mg/dL 0.20-1.00 [facility] Comment on above: For patients on eltr ombopag therapy, use of Dimension Boyd TBIL is not recommended. Blood urea nitrogen (BUN)/cr eatinine ratioOrdered By: Jess Rosas on 02-24-2024 Urea nitrogen/Creatinine [Mass ratio] 12.2 mg/mg 10-20 [facility] CBC W/Diff, Automatedon Absolute Lymph 2.94 X10 3/uL Normal 0.83-4.51 [facility] Comment on above: Performed By: #### L 7000.5300 #### [facility] Laboratory [address] [place], [address] Absolute Neut 3.6 X10 3/uL Normal 2.0-7.7 [facility] Comment on above: Performed By: #### L [id number] #### [facility] Laboratory [address] [place], [address] Basophils/100 WBC (Bld) 1.4 % High 0-1 [facility] Comment on above: Performed By: #### L [id number] #### [facility] Laboratory [address] [place], [address] Eosinophils/100 WBC (Bld) 5.6 % High 0-5 [facility] Comment on above: Performed By: #### L [id number] #### [facility] Laboratory [address] [place], [address] Erythrocyte distribution width (RBC) [Ratio] 14.3 % Normal 11.6-14.6 [facility] Comment on above: Performed By: #### L [id number] #### [facility] Laboratory [address] [place], [address] Hematocrit (Bld) [Volume fraction] 45.8 % Normal 40-54 [facility] Comment on above: Performed By: #### L [id number] #### [facility] Laboratory [address] [place], [address] Hemoglobin (Bld) [Mass/Vol] 15.9 g/dL Normal 13.0-16.5 [facility] Comment on above: Performed By: #### L [id number] #### [facility] Laboratory [address] [place], [address] IG% 0.400 Normal 0.0-0.9 [facility] Comment on above: Result Comment: IG% - Immature Granulocytes (promyelocytes, myelocytes and metamyelocytes) > 1% indicates that a LEFT SHIFT is Present. Performed By: #### L [id number] #### [facility] Laboratory [address] [facility] [place], [address] Lymphocytes/100 WBC (Bld) 38.4 % Normal 19-41 [facility] Comment on above: Performed By: #### L [id number] #### [facility] Laboratory [address] [facility] [place], [address] MCH (RBC) [Entitic mass] 28.2 pg Normal 27.0-32.0 [facility] Comment on above: Performed By: #### L [id number] #### [facility] Laboratory [address] [place], [address] MCHC (RBC) [Mass/Vol] 34.7 g/dL Normal 32-36 [facility] Comment on above: Performed By: #### [id number] #### [facility] Laboratory [address] [place], [address] MCV (RBC) [Entitic vol] 81.3 fL Normal 80-94 [facility] Comment on above: Performed By: #### [id number] #### [facility] Laboratory [address] [place], [address] Monocytes/100 WBC (Bld) 6.9 % Normal 0-10 [facility] Comment on above: Performed By: #### L [id number] #### [facility] Laboratory [address] [place], [address] Neutrophils/100 WBC (Bld) 47.3 % Normal 47-70 [facility] Comment on above: Performed By: #### L [id number] #### [facility] Laboratory [address] [place], [address] Nucleated RBC (Bld) [#/Vol] 0 10*3/uL Normal 0-5 [facility] Comment on above: Performed By: #### [id number] #### [facility] Laboratory [address] [place], [address] Platelet mean volume (Bld) [Entitic vol] 9.5 fL Normal 6.2-12.0 [facility] Comment on above: Performed By: #### L [id number] #### [facility] Laboratory [address] [place], [address] Platelets (Bld) [#/Vol] 292 10*3/uL Normal 150-450 [facility] Comment on above: Performed By: #### L [id number] #### [facility] Laboratory [address] [place], [address] RBC (Bld) [#/Vol] 5.63 10*6/uL Normal 4.6-6.2 [facility] Comment on above: Performed By: #### L [id number] #### [facility] Laboratory [address] [place], [address] RDW SD 41.4 fl Normal 35.1-43.9 [facility] Comment on above: Performed By: #### L [id number] #### [facility] Laboratory [address] [place], [address] WBC (Bld) [#/Vol] 7.7 10*3/uL Normal 4.4-11.0 [facility] Comment on above: Performed By: #### L [id number] #### [facility] Laboratory [address] [place], [address] Carbon dioxide measurementOr dered By: Jess Rosas on 02-24-2024 CO2 [Moles/Vol] 31.0 mmol/L 21.0-32.0 [facility] Chloride measurementOrdered By: Jess Rosas on 02-24-2024 Chloride [Moles/Vol] 103 mmol/L 98-107 [facility] Comprehensive Metabolic Prof ilon 02-24-2024 Albumin [Mass/Vol] 4.0 g/dL Normal 3.2-5.0 [facility] Comment on above: Performed By: #### L [id number] #### [facility] Laboratory [address] [place], [address] Albumin/Globulin [Mass ratio] 1.0 {ratio} Normal 0.9-2.4 [facility] Comment on above: Performed By: #### L [id number] #### [facility] Laboratory [address] [place], [address] ALK P 76 U/L Normal 45-117 [facility] Comment on above: Performed By: #### L [id number] #### [facility] Laboratory [address] [place], [address] ALT [Catalytic activity/Vol] 44 U/L Normal 16-61 [facility] Comment on above: Performed By: #### L [id number] #### [facility] Laboratory [address] [place], [address] AST [Catalytic activity/Vol] 25 U/L Normal 15-37 [facility] Comment on above: Performed By: #### L [id number] #### [facility] Laboratory [address] [place], [address] Bilirubin [Mass/Vol] 0.40 mg/dL Normal 0.20-1.00 [facility] Comment on above: Result Comment: For patients on eltrombopag therapy, use of Dimension Boyd TBIL is not recommended. Performed By: #### L [id number] #### [facility] Laboratory [address] [place], [address] BUN/CRE 12.2 RATIO Normal 10-20 [facility] Comment on above: Performed By: #### L [id number] #### [facility] Laboratory [address] [place], [address] CA,Total 9.4 mg/dL Normal 8.5-10.1 [facility] Comment on above: Performed By: #### L [id number] #### [facility] Laboratory [address] [place], [address] Chloride [Moles/Vol] 103 mmol/L Normal 98-107 [facility] Comment on above: Performed By: #### L [id number] #### [facility] Laboratory [address] [place], [address] CO2 [Moles/Vol] 31.0 mmol/L Normal 21.0-32.0 [facility] Comment on above: Performed By: #### L [id number] #### [facility] Laboratory [address] [place], [address] Creatinine [Mass/Vol] 1.23 mg/dL Normal 0.70-1.30 [facility] Comment on above: Result Comment: The validity of the calculated GFR GFRAA in patients over 70 years has not been determined. Clinical correlation is essential. Performed By: #### L [id number] #### [facility] Laboratory [address] [place], [address] EST GFR - AA 78 mL/min Normal >60 [facility] Comment on above: Result Comment: Afri can Samoan GFR Calc Performed By: #### L [id number] #### [facility] Laboratory [address] [place], [address] GAP 5 Normal 5-15 [facility] Comment on above: Performed By: #### L [id number] #### [facility] Laboratory [address] [place], [address] GFR/1.73 sq M.predicted among non-blacks MDRD (S/P/Bld) [Vol rate/Area] 65 mL/min/{1.73_m2} Normal >60 [facility] Comment on above: Result Comment: Non- GFR Calc Performed By: #### L [id number] #### [facility] Laboratory [address] [place], [address] Globulin (S) [Mass/Vol] 3.9 g/dL Normal 2.2-4.2 [facility] Comment on above: Performed By: #### L [id number] #### [facility] Laboratory [address] [place], [address] Glucose [Mass/Vol] 97 mg/dL Normal 74-106 [facility] Comment on above: Performed By: #### L [id number] #### [facility] Laboratory [address] [place], [address] Potassium [Moles/Vol] 4.4 mmol/L Normal 3.5-5.1 [facility] Comment on above: Performed By: #### L [id number] #### [facility] Laboratory [address] [place], [address] Sodium [Moles/Vol] 139 mmol/L Normal 136-145 [facility] Comment on above: Performed By: #### L [id number] #### [facility] Laboratory [address] [place], [place], [address] T PROT 7.9 g/dL Normal 6.4-8.2 [facility] Comment on above: Performed By: #### L [id number] #### [facility] Laboratory [address] [place], [place], [address] Urea nitrogen [Mass/Vol] 15 mg/dL Normal 7-18 [facility] Comment on above: Performed By: #### L [id number] #### [facility] Laboratory [address] [place], [place], [address] Eosinophil percentageOrdered By: Jess oRsas on 02-24-2024 Eosinophils/100 WBC (Bld) 5.6 % High 0-5 [facility] Epithelial cells.squamous LM Ql (Urine sed)Ordered By: Jess Rosas on 02-24-2024 Epithelial cells.squamous LM.HPF (Urine sed) [#/Area] 0 /[HPF] 0-5 [facility] Erythrocyte distribution wid th ratioOrdered By: Jess Rosas on 02-24-2024 Erythrocyte distribution width (RBC) [Ratio] 14.3 % 11.6-14.6 [facility] Erythrocyte distribution wid th standard deviationOrdered By: Jess Rosas on 02-24-2024 Erythrocyte distribution width (RBC) [Entitic vol] 41.4 fL 35.1-43.9 [facility] Estimated glomerular filtrat ion rate (GFR) AmericanOrdered By: Jess Rosas on 02-24-2024 Estimated GFR (MDRD) Amer 78 mL/min >60 [facility] Comment on above: GFR Calc Glomerular filtration rate ( GFR) estimationOrdered By: Jess Rosas on 02-24-2024 Estimated GFR (MDRD) Non-Af Amer 65 mL/min >60 [facility] Comment on above: Non- GFR Calc Glucose Ql (U)Ordered By: Peter Rosas on 02-24-2024 Urine Glucose (UA) Normal mg/dl Normal [facility] Glucose measurementOrdered B y: Jess Rosas on 02-24-2024 Glucose [Mass/Vol] 97 mg/dL 74-106 [facility] Hematocrit Auto (Bld) [Volum e fraction]Ordered By: Jess Rosas on 02-24-2024 Hematocrit (Bld) [Volume fraction] 45.8 % 40-54 [facility] Hemoglobin A1con 02-24-2024 HbA1c (Bld) [Mass fraction] 6.0 % High 3.8-5.6 [facility] Comment on above: Result Comment: Norm al < 5.7 % Prediabetic 5.7 - 6.4 % Diabetic >or= 6.5 % Please note range changes. Performed By: #### L [id number] #### [facility] Laboratory [facility] [address] [place], [place], [address] Hemoglobin A1c percentageOrd ered By: Jess Rosas on 02-24-2024 HbA1c (Bld) [Mass fraction] 6.0 % High 3.8-5.6 [facility] Comment on above: Normal < 5.7 % Predi abetic 5.7 - 6.4 % Diabetic >or= 6.5 % Please note range changes. Hemoglobin measurementOrdere d By: Jess Rosas on 02-24-2024 Hemoglobin (Bld) [Mass/Vol] 15.9 g/dL 13.0-16.5 [facility] High density lipoprotein (HD L) measurementOrdered By: Jess Rosas on 02-24-2024 Cholesterol in HDL [Mass/Vol] 38 mg/dL Low >40 [facility] Comment on above: The drugs N-Acetylcy steine and Metamizole may falsely depress this assay. Reference Range HDL <40 mg/dL Low HDL Cholesterol HDL >or= 60 mg/dL High HDL Cholesterol Hyaline casts LM.LPF (Urine sed) [#/Area]Ordered By: Jess Rosas on 02-24-2024 Hyaline casts LM Ql (Urine sed) 10-25 SEEN /lpf 0-5 [facility] Immature granulocytes/100 WB C Auto (Bld)Ordered By: Jses Rosas on 02-24-2024 Immature granulocytes/100 WBC (Bld) 0.400 % 0.0-0.9 [facility] Comment on above: IG% - Immature Granu locytes (promyelocytes, myelocytes and metamyelocytes) > 1% indicates that a LEFT SHIFT is Present. Ketones Test strip Ql (U)Ord ered By: Jess Rosas on 02-24-2024 Ketones Ql (U) Negative Negative [facility] Laboratory - Chemistry and C hemistry - challengeOrdered By: Jess Rosas on 02-24-2024 AST [Catalytic activity/Vol] 25 U/L 15-37 [facility] Lipid Profileon 02-24-2024 Cholesterol [Mass/Vol] 233 mg/dL High 200 [facility] Comment on above: Result Comment: <200 mg/dL Desirable 200-240 mg/dL Borderline >240 mg/dL High Risk Performed By: #### L [id number] #### [facility] Laboratory [address] [place], [address] Cholesterol in HDL [Mass/Vol] 38 mg/dL Low [facility] Comment on above: Result Comment: The drugs N-Acetylcysteine and Metamizole may falsely depress this assay. Reference Range HDL <40 mg/dL Low HDL Cholesterol HDL >or= 60 mg/dL High HDL Cholesterol Performed By: #### L [id number] #### [facility] Laboratory [address] [place], [address] Cholesterol in LDL [Mass/Vol] 120 mg/dL Normal 0-130 [facility] Comment on above: Performed By: #### L [id number] #### [facility] Laboratory [address] [place], [address] Cholesterol in VLDL [Mass/Vol] 75 mg/dL High 5-40 [facility] Comment on above: Performed By: #### L [id number] #### [facility] Laboratory [address] [place], [address] Triglyceride [Mass/Vol] 376 mg/dL High [facility] Comment on above: Result Comment: The drugs N-Acetylcysteine and Metamizole may falsely depress this assay. Serum Triglycerides Reference Interval Normal <150 mg/dL Borderline high 150 - 199 mg/dL High 200 - 499 mg/dL Very High > or = 500 mg/dL Performed By: #### L [id number] #### [facility] Laboratory [address] [place], [place], [id number] Low density lipoprotein (LDL ) cholesterol measurementOrdered By: Jess Rosas on 02-24-2024 Cholesterol in LDL [Mass/Vol] 120 mg/dL 0-130 [facility] Lymphocytes Auto (Unsp spec) [#/Vol]Ordered By: Jess Rosas on 02-24-2024 Lymphocytes (Bld) [#/Vol] 2.94 10*3/uL 0.83-4.5 1 [facility] Lymphocytes/100 WBC Auto (Un sp spec)Ordered By: Jess Rosas on 02-24-2024 Lymphocytes/100 WBC (Bld) 38.4 % 19-41 [facility] MCV (mean corpuscular volume ) determinationOrdered By: Jess Rosas on 02-24-2024 MCV (RBC) [Entitic vol] 81.3 fL 80-94 [facility] Mean corpuscular hemoglobin (MCH) determinationOrdered By: Jess Rosas on 02-24-2024 MCH (RBC) [Entitic mass] 28.2 pg 27.0-32.0 [facility] Mean corpuscular hemoglobin concentration (MCHC) determinationOrdered By: Jess Rosas on 02-24-2024 MCHC (RBC) [Mass/Vol] 34.7 g/dL 32-36 [facility] Mean platelet volume determi nationOrdered By: Jess Rosas on 02-24-2024 Platelet mean volume (Bld) [Entitic vol] 9.5 fL 6.2-12.0 [facility] Microscopic analysis of urin e for red blood cells (RBC)Ordered By: Jess Rosas on 02-24-2024 Urine RBC 0-5 SEEN /hpf 0-5 [facility] Monocyte percentageOrdered B y: Jess Rosas on 02-24-2024 Monocytes/100 WBC (Bld) 6.9 % 0-10 [facility] Mucus LM Ql (Urine sed)Order ed By: Jess Rosas on 02-24-2024 Mucus Ql (Urine sed) 1+ /hpf [facility] Neutrophil percentageOrdered By: Jess Rosas on 02-24-2024 Neutrophils/100 WBC (Bld) 47.3 % 47-70 [facility] Nitrite Test strip Ql (U)Ord ered By: Jess Rosas on 02-24-2024 Nitrite Ql (U) Negative Negative [facility] Nucleated red blood cell per centageOrdered By: Jess Rosas on 02-24-2024 Nucleated RBC/100 WBC (Bld) [Ratio] 0 % 0-5 [facility] PSA,Total - Annual Screenon 02-24-2024 PSA,TOT SCREEN 3.23 ng/mL Normal 0.00-4.00 [facility] Comment on above: Result Comment: This test was performed using the TPSA assay method for the [employer] chemistry system. Values obtained with different assay methods cannot be used interchangably. When changing PSA assays in the course of monitoring a patient, additional sequential testing should be carried out to confirm baseline values. Performed By: #### L [id number] #### [facility] Laboratory [address] [place], [address] Platelet countOrdered By: Peter Rosas on 02-24-2024 Platelets (Bld) [#/Vol] 292 10*3/uL 150-450 [facility] Potassium measurementOrdered By: Jess Rosas on 02-24-2024 Potassium [Moles/Vol] 4.4 mmol/L 3.5-5.1 [facility] Protein Test strip Ql (U)Ord ered By: Jess Rosas on 02-24-2024 Protein Ql (U) 15 mg/dl High Negative [facility] RBC Auto (Bld) [#/Vol]Ordere d By: Jess Rosas on 02-24-2024 RBC (Bld) [#/Vol] 5.63 10*6/uL 4.6-6.2 [facility] Screening prostate specific antigen (PSA) measurementOrdered By: Jess Rosas on 02-24-2024 Prostate Specific Antigen Screen 3.23 ng/mL 0.00-4.00 [facility] Comment on above: This test was perfor med using the TPSA assay method for [employer] chemistry system. Values obtained with differentassay methods cannot be used interchangably.When changing PSA assays in the course of monitoring apatient, additional sequential testing should be carriedout to confirm baseline values. Serum anion gap measurementO rdered By: Jess Rosas on 02-24-2024 Anion gap [Moles/Vol] 5 mmol/L 5-15 [facility] Serum globulin measurementOr dered By: Jess Rosas on 02-24-2024 Globulin (S) [Mass/Vol] 3.9 g/dL 2.2-4.2 [facility] Serum or plasma alanine hollins otransferase (ALT) measurementOrdered By: Jess Rosas on 02-24-2024 ALT [Catalytic activity/Vol] 44 U/L 16-61 [facility] Serum or plasma albumin alexandrea urement (mass/volume)Ordered By: Jess Rosas on 02-24-2024 Albumin [Mass/Vol] 4.0 g/dL 3.2-5.0 [facility] Serum or plasma alkaline emmanuel sphatase measurementOrdered By: Jess Rosas on 02-24-2024 ALP [Catalytic activity/Vol] 76 U/L 45-117 [facility] Serum or plasma calcium alexandrea urement (mass/volume)Ordered By: Jess Rosas on 02-24-2024 Calcium [Mass/Vol] 9.4 mg/dL 8.5-10.1 [facility] Serum or plasma cholesterol measurement (mass/volume)Ordered By: Jess Rosas on 02-24-2024 Cholesterol [Mass/Vol] 233 mg/dL High <200 [facility] Comment on above: <200 mg/dL Desirable 200-240 mg/dL Borderline >240 mg/dL High Risk Serum or plasma creatinine m easurement (mass/volume)Ordered By: Jess Rosas on 02-24-2024 Creatinine [Mass/Vol] 1.23 mg/dL 0.70-1.30 [facility] Comment on above: The validity of the calculated GFR & GFRAA in patients over 70 years has not been determined. Clinical correlation is essential. Serum or plasma urea nitroge n measurement (mass/volume)Ordered By: Jess Rosas on 02-24-2024 Urea nitrogen [Mass/Vol] 15 mg/dL 7-18 [facility] Sodium levelOrdered By: Jess Rosas on 02-24-2024 Sodium [Moles/Vol] 139 mmol/L 136-145 [facility] TSH QnOrdered By: Jess Rosas on 02-24-2024 Thyroid Stimulating Hormone (TSH) 1.070 uIU/mL 0.358-3.740 [facility] Testosterone Free [Mass/Vol] Ordered By: Jess Rosas on 02-24-2024 Free Testosterone 8.11 ng/dL 5.00-21.00 [facility] Testosterone Free/Testostero ne.total [Mass fraction]Ordered By: Jess Rosas on 02-24-2024 Percent Free Testosterone 2.73 % 1.50-4.20 [facility] Comment on above: Performed at: [address] [id number] Director: Loy Lopez PhD, Phone: [phone] at: - [facility] [id number] Director: Sylvia Chapman MD, Phone: [phone] Testosterone, totalOrdered B y: Jess Rosas on 02-24-2024 Testosterone [Mass/Vol] 297 ng/dL 264-916 [facility] Comment on above: Adult male reference interval is based on a population ofhealthy nonobese males (BMI <30) between 19 and 39 yearsold. [email or web address]. JCEM 2017,102;[id number]. PMID:[id number]. Thyroid Stim Hormone (TSH)on 02-24-2024 TSH 1.070 uIU/mL Normal 0.358-3.740 [facility] [facility] Comment on above: Performed By: #### L 7000.5300 #### [facility] [address] [place] [address]. [place], [address] Total proteinOrdered By: Mariah Rosas on 02-24-2024 Protein [Mass/Vol] 7.9 g/dL 6.4-8.2 [facility] Triglycerides measurementOrd ered By: Jess Rosas on 02-24-2024 Triglyceride [Mass/Vol] 376 mg/dL High <199 [facility] Comment on above: The drugs N-Acetylcy steine and Metamizole may falsely depress this assay.Serum Triglycerides Reference Interval Normal <150 mg/dL Borderline high 150 - 199 mg/dL High 200 - 499 mg/dL Very High > or = 500 mg/dL Urinalysis, Completeon 02-23 CAST,HYALINE 10-25 SEEN Normal 0-5 [facility] Comment on above: Order Comment: CLEAN CATCH Performed By: #### L 7000.5300 #### [facility] [address] [place], [address] Mucus Ql (Urine sed) 1+ /hpf Normal [facility] Comment on above: Order Comment: CLEAN CATCH Performed By: #### L 0.5300 #### [facility] [address] [place], [address] RBC 0-5 SEEN Normal 0-5 [facility] Comment on above: Order Comment: CLEAN CATCH Performed By: #### L 0.5300 #### [facility] [address] [place], [address] WBC 0-5 SEEN Normal 0-5 [facility] Comment on above: Order Comment: CLEAN CATCH Performed By: #### L 0.5300 #### [facility] [address] [place], [address] BACTERIA 0 SEEN Normal None Seen [facility] Comment on above: Order Comment: CLEAN CATCH Performed By: #### L 7000.5300 #### [facility] [address] [place], [address] EPI,SQUAMOUS 0 SEEN Normal 0-5 [facility] Comment on above: Order Comment: CLEAN CATCH Performed By: #### L 7000.5300 #### [facility] [address] [place], [address] Urine blood detectionOrdered By: Jess Rosas on 02-24-2024 Urine Occult Blood 10 /ul High Negative [facility] Urine clarityOrdered By: Mariah Rosas on 02-24-2024 Clarity (U) Clear Clear [facility] Urine color determinationOrd ered By: Jess Rosas on 02-24-2024 Color (U) Yellow Yellow [facility] Urine leukocyte esterase det ection by dipstickOrdered By: Jess Rosas on 02-24-2024 Leukocyte esterase Test strip Ql (U) 100 /ul High Negative [facility] Urine pHOrdered By: Jess Valdovinos er on 02-24-2024 pH (U) 6.0 [pH] 5.0 - 8.0 [facility] Urine sediment bacteria coun t by microscopy (number/high power field)Ordered By: Jess Rosas on 02-24-2024 Bacteria LM.HPF (Urine sed) [#/Area] 0 /[HPF] None Seen [facility] Urine specific gravity measu rementOrdered By: Jess Rosas on 02-24-2024 Specific gravity (U) [Rel density] 1.015 1.002-1.030 [facility] Urobilinogen Ql (U)Ordered B y: Jess Rosas on 02-24-2024 Urobilinogen (U) [Mass/Vol] 1 mg/dL High Normal [facility] Very low density lipoprotein (VLDL) cholesterol measurementOrdered By: Jess Rosas on 02-24-2024 VLDL Cholesterol 75 mg/dL High 5-40 [facility] Vitamin B12on 02-24-2024 Cobalamin (Vitamin B12) [Mass/Vol] 351 pg/mL Normal 211-911 [facility] Comment on above: Performed By: #### L 7000.5300 #### [facility] [address] [place], [place] [address], [place], [id number] Vitamin B12 measurementOrder ed By: Jess Rosas on 02-24-2024 Cobalamin (Vitamin B12) [Mass/Vol] 351 pg/mL 211-911 [facility] White blood cell (WBC) count Ordered By: Jess Rosas on 02-24-2024 WBC (Bld) [#/Vol] 7.7 10*3/uL 4.4-11.0 [facility] White blood cell countOrdere d By: Jess Rosas on 02-24-2024 Urine WBC 0-5 SEEN /hpf 0-5 [facility] CNCOon 01-07-2024 CNCO Letter Text Normal [facility] CNPNon 01-07-2024 CNPN Telephone ([employer]) HAYDEN PENDLETON ([id number]) 1965 M Date Time Provider Department 01/07/24 FELICITAS CHAVEZ [facility] During your visit today, we recorded the following information about you: Celia Smallwood LPN 01/07/2024 7:13 AM Signed Last seen 02/23/2023. Please call patient with annual appointment. Thank you! KIRAN Alonso September R 01/07/2024 7:28 AM Signed Scheduled patient with Dr. Chavez for 06-06-24 at 3 pm in [place]. Sent [employer] message and letter to home address. Thanks Maira Pope Allergies As of Date: 01/07/2024 Noted Allergy [...] Status:Closed by CELIA SMALLWOOD on 01/07/24 Normal [facility] XR CERVICAL 4V AP/LAT/OBLon 11-09-2023 XR CERVICAL 4V AP/LAT/OBL * * *Final Rep ort* * * DATE OF EXAM: Nov 09 [...] Cervical spine degenerative changes as described above. Tablet Technician: [facility] Transcribe Date/Time: Nov 11 2023 2:40P Dictated by : JEROD SEGOVIA MD This examination was interpreted and the report reviewed and electronically signed by: JEROD SEGOVIA MD on Nov 11 2023 2:45PM EST [id number] N Normal [facility] XR FOOT 3V AP/LAT/OBL BILon 11-09-2023 XR FOOT 3V AP/LAT/OBL ANDREEA * * *Final Rep ort* * * DATE OF EXAM: Nov 09 [...] inflammatory arthropathy in either hand or foot. Tablet Technician: [facility] Transcribe Date/Time: Nov 13 2023 4:18P Dictated by : MERCEDES GARIBAY MD This examination was interpreted and the report reviewed and electronically signed by: MERCEDES GARIBAY MD on Nov 13 2023 4:19PM EST [id number] N Normal [facility] XR HAND 3V PA/LAT/OBL BILon 11-09-2023 XR HAND 3V PA/LAT/OBL ANDREEA * * *Final Rep ort* * * DATE OF EXAM: Nov 09 [...] inflammatory arthropathy in either hand or foot. Tablet Technician: [facility] Transcribe Date/Time: Nov 13 2023 4:18P Dictated by : MERCEDES GARIBAY MD This examination was interpreted and the report reviewed and electronically signed by: MERCEDES GARIBAY MD on Nov 13 2023 4:19PM EST [id number] N Normal [facility] XR LUMBAR 3V AP/LAT/L5-S1on 11-09-2023 XR LUMBAR 3V AP/LAT/L5-S1 * * *Final Rep ort* * * DATE OF EXAM: Nov 09 [...] spine are presented. FINDINGS: There are five kxp-ihp-[id number] lumbar vertebrae. No fracture or subluxations are noted. The disc spaces are well preserved. There is mild osteophyte formation. Others: There is a 3 mm radiopaque opacity overlying the left kidney. IMPRESSION: Lumbar spine mild degenerative changes. Tablet Technician: [facility] Transcribe Date/Time: Nov 11 2023 12:47P Dictated by : JEROD SEGOVIA MD This examination was interpreted and the report reviewed and electronically signed by: JEROD SEGOVIA MD on Nov 11 2023 12:49PM EST [id number] N Normal [facility] XR SI JTS 2V AP PELV/FERGUSO Non [...] or osseous lesion. IMPRESSION: Unremarkable SI joints Tablet Technician: [facility] Transcribe Date/Time: Nov 13 2023 8:03A Dictated by : ABHAY CHIN MD This examination was interpreted and the report reviewed and electronically signed by: ABHAY CHIN MD on Nov 13 2023 8:05AM EST [id number] N Normal [facility] XR THORACIC 2V AP/LATon 10-23 XR THORACIC [...] and CABG. IMPRESSION: Thoracic spine degenerative changes. Tablet Technician: [facility] Transcribe Date/Time: Nov 11 2023 4:24P Dictated by : JEROD SEGOVIA MD This examination was interpreted and the report reviewed and electronically signed by: JEROD SEGOVIA MD on Nov 11 2023 4:26PM EST [id number] N Normal [facility] CBC W Auto Differential pane l (Bld)on 11-04-2023 Basophils (Bld) [#/Vol] 0.07 10*3/uL [facility] Basophils/100 WBC (Bld) 1.0 % [facility] Differential cell count method Nom (Bld) Auto [facility] Eosinophils (Bld) [#/Vol] 0.17 10*3/uL [facility] Eosinophils/100 WBC (Bld) 2.4 % [facility] Erythrocyte distribution width (RBC) [Ratio] 13.9 % 11.5 - 15.0 % [facility] Hematocrit (Bld) [Volume fraction] 46.3 % 39.0 - 51.0 % [facility] Hemoglobin (Bld) [Mass/Vol] 16.0 g/dL 13.0 - 17.0 g/dL [facility] Immature granulocytes (Bld) [#/Vol] [facility] Immature granulocytes/100 WBC (Bld) 0.3 % [facility] Lymphocytes (Bld) [#/Vol] 3.14 10*3/uL [facility] Lymphocytes/100 WBC (Bld) 45.1 % [facility] MCH (RBC) [Entitic mass] 28.2 pg 26. 0 - 34.0 pg [facility] MCHC (RBC) [Mass/Vol] 34.6 g/dL 30.5 - 36.0 g/dL [facility] MCV (RBC) [Entitic vol] 81.7 fL 80.0 - 100.0 fL [facility] Monocytes (Bld) [#/Vol] 0.41 10*3/uL [facility] Monocytes/100 WBC (Bld) 5.9 % [facility] Neutrophils (Bld) [#/Vol] 3.15 10*3/uL [facility] Neutrophils/100 WBC (Bld) 45.3 % [facility] Nucleated RBC (Bld) [#/Vol] NINF [facility] Nucleated RBC/100 WBC (Bld) [Ratio] 0.0 % /100 WBC [facility] Platelet mean volume (Bld) [Entitic vol] 9.7 fL 9.0 - 12.7 fL [facility] Platelets (Bld) [#/Vol] 269 10*3/uL [facility] RBC (Bld) [#/Vol] 5.67 10*6/uL 4.20 - 6.0 0 m/uL [facility] WBC (Bld) [#/Vol] 6.96 10*3/uL [facility] Basophils (Bld) [#/Vol] 0.07 10*3/uL Normal <0.11 [facility] Comment on above: Order Comment: Speci men Type: BLOOD SPECIMEN Ordering Facility: [facility] Address: [address] [place] [address] Performed By: #### 5 7021-8, 4537-7 #### [facility] CLIA [id number] [address] [place] [address] [place] Basophils/100 WBC (Bld) 1.0 % Normal [facility] Comment on above: Order Comment: Speci men Type: BLOOD SPECIMEN Ordering Facility: [facility] Address: [address] [place] [address] Performed By: #### 5 7021-8, 4537-7 #### [facility] CLIA [id number] [address] [place] [address] [place] Differential cell count method Nom (Bld) Auto Normal [facility] Comment on above: Order Comment: Speci men Type: BLOOD SPECIMEN Ordering Facility: [facility] Address: [address] [place] [address] Performed By: #### 5 7021-8, 4536-7 #### [facility] CLIA [id number] [address] [place] [address] [place] Eosinophils (Bld) [#/Vol] 0.17 10*3/uL Normal <0.46 [facility] Comment on above: Order Comment: Speci men Type: BLOOD SPECIMEN Ordering Facility: [facility] Address: [address] [place] [address] Performed By: #### 5 7021-8, 4536-7 #### [facility] CLIA [id number] [address] [place] [address] [place] Eosinophils/100 WBC (Bld) 2.4 % Normal [facility] Comment on above: Order Comment: Speci men Type: BLOOD SPECIMEN Ordering Facility: [facility] Address: [address] [place] [address] Performed By: #### 5 7021-8, 4536-7 #### [facility] CLIA [id number] [address] [place] [address] [place] Erythrocyte distribution width (RBC) [Ratio] 13.9 % Normal 11.5-15.0 [facility] Comment on above: Order Comment: Speci men Type: BLOOD SPECIMEN Ordering Facility: [facility] Address: [address] [place] [address] Performed By: #### 5 7021-8, 4536-7 #### [facility] CLIA [id number] [address] [place] [address] [place] Hematocrit (Bld) [Volume fraction] 46.3 % Normal 39.0-51.0 [facility] Comment on above: Order Comment: Speci men Type: BLOOD SPECIMEN Ordering Facility: [facility] Address: [address] [place] [address] Performed By: #### 5 7021-8, 4536-7 #### [facility] CLIA [id number] [address] [place] [address] [place] Hemoglobin (Bld) [Mass/Vol] 16.0 g/dL Normal 13.0-17.0 [facility] Comment on above: Order Comment: Speci men Type: BLOOD SPECIMEN Ordering Facility: [facility] Address: [address] [place] [address] Performed By: #### 5 7021-8, 4537-7 #### [facility] CLIA [id number] [address] [place] [address] [place] Immature granulocytes (Bld) [#/Vol] 10*3/uL Normal <0.10 [facility] Comment on above: Order Comment: Speci men Type: BLOOD SPECIMEN Ordering Facility: [facility] Address: [address] [place] [address] Performed By: #### 5 7021-8, 4537-7 #### [facility] CLIA [id number] [address] [place] [address] [place] Immature granulocytes/100 WBC (Bld) 0.3 % Normal [facility] Comment on above: Order Comment: Speci men Type: BLOOD SPECIMEN Ordering Facility: [facility] Address: [address] [place] [address] Performed By: #### 5 7021-8, 4537-7 #### [facility] CLIA [id number] [address] [place] [address] [place] Lymphocytes (Bld) [#/Vol] 3.14 10*3/uL Normal 1.00-4.0 0 [facility] Comment on above: Order Comment: Speci men Type: BLOOD SPECIMEN Ordering Facility: [facility] Address: [address] [place] [address] Performed By: #### 5 7021-8, 4537-7 #### [facility] CLIA [id number] [address] [place] [address] [place] Lymphocytes/100 WBC (Bld) 45.1 % Normal [facility] Comment on above: Order Comment: Speci men Type: BLOOD SPECIMEN Ordering Facility: [facility] Address: [address] [place] [address] Performed By: #### 5 7021-8, 4536-7 #### [facility] CLIA [id number] [address] [place] [address] [place] MCH (RBC) [Entitic mass] 28.2 pg Normal 26.0-34.0 [facility] Comment on above: Order Comment: Speci men Type: BLOOD SPECIMEN Ordering Facility: [facility] Address: [address] [place] [address] Performed By: #### 5 7021-8, 4536-7 #### [facility] CLIA [id number] [address] [place] [address] [place] MCHC (RBC) [Mass/Vol] 34.6 g/dL Normal 30.5-36.0 [facility] Comment on above: Order Comment: Speci men Type: BLOOD SPECIMEN Ordering Facility: [facility] Address: [address] [place] [address] Performed By: #### 5 7021-8, 4536-7 #### [facility] CLIA [id number] [address] [place] [address] [place] MCV (RBC) [Entitic vol] 81.7 fL Normal 80.0-100.0 C [facility] Comment on above: Order Comment: Speci men Type: BLOOD SPECIMEN Ordering Facility: [facility] Address: [address] [place] [address] Performed By: #### 5 7021-8, 4536-7 #### [facility] CLIA [id number] [address] [place] [address] [place] Monocytes (Bld) [#/Vol] 0.41 10*3/uL Normal <0.87 [facility] Comment on above: Order Comment: Speci men Type: BLOOD SPECIMEN Ordering Facility: [facility] Address: [address] [place] [address] Performed By: #### 5 7021-8, 4537-7 #### [facility] CLIA [id number] [address] [place] [address] [place] Monocytes/100 WBC (Bld) 5.9 % Normal [facility] Comment on above: Order Comment: Speci men Type: BLOOD SPECIMEN Ordering Facility: [facility] Address: [address] [place] [address] Performed By: #### 5 7021-8, 4537-7 #### [facility] CLIA [id number] [address] [place] [address] [place] Neutrophils (Bld) [#/Vol] 3.15 10*3/uL Normal 1.45-7.5 0 [facility] Comment on above: Order Comment: Speci men Type: BLOOD SPECIMEN Ordering Facility: [facility] Address: [address] [place] [address] Performed By: #### 5 7021-8, 4536-7 #### [facility] CLIA [id number] [address] [place] [address] [place] Neutrophils/100 WBC (Bld) 45.3 % Normal [facility] Comment on above: Order Comment: Speci men Type: BLOOD SPECIMEN Ordering Facility: [facility] Address: [address] [place] [address] Performed By: #### 5 7021-8, 4537-7 #### [facility] CLIA [id number] [address] [place] [address] [place] Nucleated RBC (Bld) [#/Vol] 10*3/uL Normal <0.01 [facility] Comment on above: Order Comment: Speci men Type: BLOOD SPECIMEN Ordering Facility: [facility] Address: [address] [place] [address] Performed By: #### 5 7021-8, 4536-7 #### [facility] CLIA [id number] [address] [place] [address] [place] Nucleated RBC/100 WBC (Bld) [Ratio] 0.0 /100 WBC Normal [facility] Comment on above: Order Comment: Speci men Type: BLOOD SPECIMEN Ordering Facility: [facility] Address: [address] [place] [address] Performed By: #### 5 7021-8, 4536-7 #### [facility] CLIA [id number] [address] [place] [address] [place] Platelet mean volume (Bld) [Entitic vol] 9.7 fL Normal 9.0-12.7 [facility] Comment on above: Order Comment: Speci men Type: BLOOD SPECIMEN Ordering Facility: [facility] Address: [address] [place] [address] Performed By: #### 5 7021-8, 4536-7 #### [facility] CLIA [id number] [address] [place] [address] [place] Platelets (Bld) [#/Vol] 269 10*3/uL Normal 150-400 [facility] Comment on above: Order Comment: Speci men Type: BLOOD SPECIMEN Ordering Facility: [facility] Address: [address] [place] [address] Performed By: #### 5 7021-8, 7 #### [facility] CLIA [id number] [address] [place] [address] [place] RBC (Bld) [#/Vol] 5.67 10*6/uL Normal 4.20-6.00 [facility] Comment on above: Order Comment: Speci men Type: BLOOD SPECIMEN Ordering Facility: [facility] Address: [address] [place] [address] Performed By: #### 5 7021-8, 4536-7 #### [facility] CLIA [id number] [address] [place], [place] [address] [address] [place] WBC (Bld) [#/Vol] 6.96 10*3/uL Normal 3.70-11.00 [facility] Comment on above: Order Comment: Speci men Type: BLOOD SPECIMEN Ordering Facility: [facility] Address: [address] [place] [address] Performed By: #### 5 7021-8, 4537-7 #### [facility] CLIA [id number] [address] [place] [address] [place] CNOVon 11-04-2023 CNOV Office Visit (RHEUMN ) HAYDEN PENDLETON ([id number]) 1965 M Date Time Provider Department 11/04/23 9:40 AM CIERA PALM RHEUMN During your visit today, we recorded the following information about you: Temperature Pulse Blood pressure Weight 97.4 degrees 71/minute 147/92 91.5 kg Ciera Palm MD 11/04/2023 2:23 PM Addendum [facility] Date of Service: 11/04/2023 Patient: Hayden Pendletno Medical Record: [id number] Primary Care Physician: Quang Hanson MD Referring Provider: Ramirez Thomas [address] [facility] [address] Last Rheumatology visit: None at [facility] Chief complaint: Joint Pain and Positive [...] negative - 14 (08/09/2023). His most recent CAHNDANA was positive (08/09/2023). 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 Normal [facility] CRP SerPl-mCncon 11-04-2023 CRP [Mass/Vol] 0.6 mg/dL Normal <0.9 [facility] Comment on above: Order Comment: Zeyad san Type: BLOOD SPECIMEN Ordering Facility: [facility] Address: [address] [place] [address] Performed By: #### 2 4323-8, 1987-06, 2131-10 #### [facility] CLIA [id number] [address] [place] [address] [place] Centromere Ab IF Ql (S)on Centromere Ab Qn (S) 1.8 AI High <1.0 [facility] Comment on above: Order Comment: Zeyad san Type: BLOOD SPECIMEN Ordering Facility: [facility] Address: [address] [place] [address] Result Comment: Anti -centromere antibody is used as in aid in diagnosis of systemic sclerosis. Clinical correlation is required. Test Methodology: Multiplex flow immunoassay. Performed By: #### 5 7021-8, 4537-7 #### [facility] CLIA [id number] [address] [place] [address] [place] CENTROMERE AB QUAL Positive Abnormal Negative [facility] Comment on above: Order Comment: Speci men Type: BLOOD SPECIMEN Ordering Facility: [facility] Address: [address] [place] [address] Performed By: #### 5 7021-8, 4537-7 #### [facility] CLIA [id number] [address] [place] [address] [place] Chromatin Ab Qnon 11-04-2023 CHROMATIN AB QUAL Negative Normal Negative [facility] Comment on above: Order Comment: Speci men Type: BLOOD SPECIMEN Ordering Facility: [facility] Address: [address] [place] [address] Performed By: #### 4 7322-3, 60788-3, 63234-8, 57441-1, 18075-0, 36919-3, 72885-4, 82720-4 #### [facility] CLIA [id number] [address] [place] [address] [place] Chromatin Ab SerPl-aCncon Chromatin Ab Qn <0.2 Normal <1.0 [facility] Comment on above: Order Comment: Speci men Type: BLOOD SPECIMEN Ordering Facility: [facility] Address: [address] [place] [address] Result Comment: Test Methodology: Multiplex flow immunoassay. Performed By: #### 4 7322-3, 00141-2, 99984-0, 37496-8, 82700-3, 22797-2, 68950-8, 40347-1 #### [facility] CLIA [id number] [address] [place], [place] [id number] [place] Comprehensive metabolic 2000 panelon 11-04-2023 Albumin [Mass/Vol] 4.7 g/dL Normal 3.9-4.9 [facility] Comment on above: Order Comment: Speci men Type: BLOOD SPECIMEN Ordering Facility: [facility] Address: [address] [place] [address] Performed By: #### 2 4328, 2131-10 #### [facility] CLIA [id number] [address] [place] [address] [place] ALP [Catalytic activity/Vol] 78 U/L Normal 38-113 [facility] Comment on above: Order Comment: Speci men Type: BLOOD SPECIMEN Ordering Facility: [facility] Address: [address] [place] [address] Performed By: #### 2 4328, 2131-10 #### [facility] CLIA [id number] [address] [place] [address] [place] ALT [Catalytic activity/Vol] 29 U/L Normal 10-54 [facility] Comment on above: Order Comment: Speci men Type: BLOOD SPECIMEN Ordering Facility: [facility] Address: [address] [place] [address] Performed By: #### 2 43238, 2131-10 #### [facility] CLIA [id number] [address] [place] [address] [place] Anion gap [Moles/Vol] 12 mmol/L Normal 8-15 [facility] Comment on above: Order Comment: Speci men Type: BLOOD SPECIMEN Ordering Facility: [facility] Address: [address] [place] [address] Performed By: #### 2 4323-8, 1987-06, 2131-10 #### [facility] CLIA [id number] [address] [id number] [address] [place] AST [Catalytic activity/Vol] 28 U/L Normal 14-40 [facility] Comment on above: Order Comment: Speci men Type: BLOOD SPECIMEN Ordering Facility: [facility] Address: [address] [place] [address] [place] [phone] Performed By: #### 2 4322-09, 2131-10 #### [facility] CLIA [id number] [address] [place], [place] [id number] [place] Bilirubin [Mass/Vol] 0.3 mg/dL Normal 0.2-1.3 [facility] Comment on above: Order Comment: Speci men Type: BLOOD SPECIMEN Ordering Facility: [facility] Address: [address] [place], [place] [id number] Performed By: #### 2 4322-09, 2131-10 #### [facility] CLIA [id number] [address] [place] [address] [place] Calcium [Mass/Vol] 10.0 mg/dL Normal 8.5-10.2 [facility] Comment on above: Order Comment: Speci men Type: BLOOD SPECIMEN Ordering Facility: [facility] Address: [address] [place] [address] [place] [phone] Performed By: #### 2 4322-09, 2131-10 #### [facility] CLIA [id number] [address] [place], [place] [id number] [place] Chloride [Moles/Vol] 100 mmol/L Normal 98-107 [facility] Comment on above: Order Comment: Speci men Type: BLOOD SPECIMEN Ordering Facility: [facility] Address: [address] [place] [address] [place] [phone] Performed By: #### 2 4322-09, 2131-10 #### [facility] CLIA [id number] [address] [place] [address] [place] CO2 [Moles/Vol] 26 mmol/L Normal 22-30 [facility] Comment on above: Order Comment: Speci men Type: BLOOD SPECIMEN Ordering Facility: [facility] Address: [address] [place], [place] [phone] Performed By: #### 2 8, 2131-10 #### [facility] CLIA [id number] [address] [place] [address] [place] Creatinine [Mass/Vol] 1.06 mg/dL Normal 0.73-1.22 [facility] Comment on above: Order Comment: Speci men Type: BLOOD SPECIMEN Ordering Facility: [facility] Address: [address] [place] [address] Performed By: #### 2 8, 2131-10 #### [facility] CLIA [id number] [address] [place] [address] [place] Creatinine and Glomerular filtration rate.predicted panel (S/P/Bld) 82 mL/min/1.73m??? Normal >=60 [facility] Comment on above: Order Comment: Speci men Type: BLOOD SPECIMEN Ordering Facility: [facility] Address: [address] [place] [address] Result Comment: Cherelle mated Glomerular Filtration Rate [...] actual GFR. Performed By: #### 2 4323-8, 2131-10 #### [facility] CLIA [id number] [address] [place], [place] [id number] [place] Glucose [Mass/Vol] 109 mg/dL High 74-99 [facility] Comment on above: Order Comment: Speci men Type: BLOOD SPECIMEN Ordering Facility: [facility] Address: [address] [place] [address] Result Comment: The [place] Diabetes Association (ADA) provides guidance for cutoff [...] Standards of Medical Care in Diabetes 2016, [place] [employer] Association. Diabetes Care. 2016.39(Suppl 1). Performed By: #### 2 8, 2131-10 #### [facility] CLIA [id number] [address] [place] [address] [place] Potassium [Moles/Vol] 4.7 mmol/L Normal 3.7-5.1 [facility] Comment on above: Order Comment: Speci men Type: BLOOD SPECIMEN Ordering Facility: [facility] Address: [address] [place] [address] Performed By: #### 2 4322-09, 2131-10 #### [facility] CLIA [id number] [address] [place] [address] [place] Protein [Mass/Vol] 7.6 g/dL Normal 6.3-8.0 [facility] Comment on above: Order Comment: Speci men Type: BLOOD SPECIMEN Ordering Facility: [facility] Address: [address] [place] [address] Performed By: #### 2 4322-09, 2131-10 #### [facility] CLIA [id number] [address] [place] [address] [place] Sodium [Moles/Vol] 138 mmol/L Normal 136-144 [facility] Comment on above: Order Comment: Speci men Type: BLOOD SPECIMEN Ordering Facility: [facility] Address: [address] [place] [address] Performed By: #### 2 4323-8, 1987-06, 2131-10 #### [facility] CLIA [id number] [address] [place] [address] [place] Urea nitrogen [Mass/Vol] 14 mg/dL Normal 9-24 [facility] Comment on above: Order Comment: Speci men Type: BLOOD SPECIMEN Ordering Facility: [facility] Address: [address] [place] [address] Performed By: #### 2 4323-8, 1987-06, 2131-10 #### [facility] CLIA [id number] [address] [place] [address] [place] MOHINI Jo1 Ab Ser-aCncon 2023 Guerline-1 extractable nuclear Ab Qn (S) <0.2 Normal <1.0 [facility] Comment on above: Order Comment: Speci men Type: BLOOD SPECIMEN Ordering Facility: [facility] Address: [address] [place] [address] Performed By: #### 4 7322-3, 10752-9, 10089-7, 89053-8, 48392-0, 42357-5, 86617-7, 65584-4 #### [facility] CLIA [id number] [address] [place] [address] [place] MOHINI DRILLING ENGINEER Ab Ser-aCncon 2023 Ribonucleoprotein extractable nuclear Ab Qn (S) <0.2 Normal <1.0 [facility] Comment on above: Order Comment: Speci men Type: BLOOD SPECIMEN Ordering Facility: [facility] Address: [address] [place] [address] Performed By: #### 4 7322-3, 39639-9, 71281-3, 83978-4, 23455-7, 42713-1, 85881-2, 48068-2 #### [facility] CLIA [id number] [address] [place] [address] [place] Performed By: #### 5 7021-8, 4537-7 #### [facility] CLIA [id number] [address] [place] [address] [place] MOHINI SM IgG Ser-aCncon 2023 Donis extractable nuclear IgG Qn (S) <0.2 Normal <1.0 [facility] Comment on above: Order Comment: Speci men Type: BLOOD SPECIMEN Ordering Facility: [facility] Address: [address] [place] [address] Performed By: #### 5 7021-8, 4537-7 #### [facility] IA [id number] [address] [place] [address] [place] MOHINI SS-A Ab Ser-aCncon 11-03 Sjogrens syndrome-A extractable nuclear Ab Qn (S) <0.2 Normal <1.0 [facility] Comment on above: Order Comment: Speci men Type: BLOOD SPECIMEN Ordering Facility: [facility] Address: [address] [place] [address] Result Comment: Test Methodology: Multiplex flow immunoassay. Performed By: #### 4 7322-3, 64541-6, 58208-7, 39960-1, 96922-8, 12527-6, 59695-7, 40366-8 #### [facility] CLIA [id number] [address] [place] [address] [place] MOHINI SS-B Ab Ser-aCncon 11-03 Sjogrens syndrome-B extractable nuclear Ab Qn (S) <0.2 Normal <1.0 [facility] Comment on above: Order Comment: Speci men Type: BLOOD SPECIMEN Ordering Facility: [facility] Address: [address] [place] [address] Result Comment: Anti -SSB (anti-La) antibody is used as an aid in diagnosis of a variety of systemic autoimmune diseases, especially for Sjogren's syndrome and systemic lupus erythematosus. Clinical correlation is required. Test Methodology: Multiplex flow immunoassay. Performed By: #### 5 7021-8, 4537-7 #### [facility] CLIA [id number] [address] [place] [address] [place] ESR Westergren method (Bld) [Velocity]on 11-04-2023 ESR (Bld) [Velocity] 15 mm/h [facility] Interpretation and review of laboratory results Normal [facility] ESR (Bld) [Velocity] 15 mm/h Normal 0-15 [facility] Comment on above: Order Comment: Zeyad san Type: BLOOD SPECIMEN Ordering Facility: [facility] Address: [address] [place] [address] Performed By: #### 5 7021-8, 4536-7 #### [facility] CLIA [id number] [address] [place] [address] [place] HbA1c (Bld)on 11-04-2023 Average glucose Estimated from glycated hemoglobin (Bld) [Mass/Vol] 126 mg/dL Normal [facility] Comment on above: Order Comment: Zeyad san Type: BLOOD SPECIMEN Ordering Facility: [facility] Address: [address] [place] [address] Result Comment: eAG: (Estimated average glucose) is a calculated value from HgbA1c and is pharmaceutical representative of the average blood glucose level in the last 2-3 month period. Performed By: #### 2 4323-8, 1987-06, 2131-10 #### [facility] IA [id number] [address] [place] [address] [place] HbA1c (Bld) [Mass fraction] 6.0 % High 4.3-5.6 [facility] Comment on above: Order Comment: Zeyad san Type: BLOOD SPECIMEN Ordering Facility: [facility] Address: [address] [place] [address] Result Comment: [place] Diabetes Association guidelines indicate that patients with HgbA1c in the range 5.7-6.4% are at increased risk for development of diabetes, and intervention by lifestyle modification may be beneficial. HgbA1c greater or equal to 6.5% is considered diagnostic of diabetes. Performed By: #### 2 4323-8, 1987-, 2131-10 #### [facility] CLIA [id number] [address] [place] [address] [place] Guerline-1 extractable nuclear Ab Qn (S)on 11-04-2023 GUERLINE 1 ANTIBODY QUAL Negative Normal Negative [facility] Comment on above: Order Comment: Specchantel san Type: BLOOD SPECIMEN Ordering Facility: [facility] Address: [address] [place] [address] Result Comment: Anti -GUERLINE-1 antibody is used as an aid in diagnosis of polymyositis and dermatomyositis especially with pulmonary involvement. A negative result cannot rule out polymyositis or dermatomyositis. Clinical correlation is required. Test Methodology: Multiplex flow immunoassay. Performed By: #### 4 7322-3, 40598-0, 12094-3, 08220-4, 59129-6, 18817-1, 43677-9, 05469-5 #### [facility] CLIA [id number] [address] [place] [address] [place] Ribonucleoprotein extractabl e nuclear Ab Qn (S)on 11-04-2023 ANTI-DRILLING ENGINEER QUAL Negative Normal Negative [facility] Comment on above: Order Comment: Zeyad san Type: BLOOD SPECIMEN Ordering Facility: [facility] Address: [address] [place] [address] Performed By: #### 5 7021-8, 4537-7 #### [facility] CLIA [id number] [address] [place] [address] [place] RIBOSOMAL DRILLING ENGINEER QUAL Negative Normal Negative [facility] Comment on above: Order Comment: Zeyad san Type: BLOOD SPECIMEN Ordering Facility: [facility] Address: [address] [place] [address] Result Comment: Anti -Ribosomal RNA (Ribosomal P) antibody is used as an aid in diagnosis of systemic autoimmune diseases especially systemic lupus erythematosus and mixed connective tissue disease. Cross-reactivity with Anti-donis antibody is not uncommon. Clinical correlation is required. Test Methodology: Multiplex flow immunoassay. Performed By: #### 4 7322-3, 69381-7, 62632-6, 81347-7, 36866-9, 46788-8, 30659-8, 87135-4 #### [facility] CLIA [id number] [address] [place] [address] [place] SCL-70 extractable nuclear I gG IA Qn (S)on 11-04-2023 SCLERODERMA AB QUAL Negative Normal Negative [facility] Comment on above: Order Comment: Speci men Type: BLOOD SPECIMEN Ordering Facility: [facility] Address: [address] [place] [address] Performed By: #### 4 7322-3, 10792-5, 35349-4, 85899-0, 26185-2, 28455-5, 99621-6, 23274-7 #### [facility] CLIA [id number] [address] [place] [address] [place] SCLERODERMA IGG AB <0.2 Normal <1.0 [facility] Comment on above: Order Comment: Fermini jaswinder Type: BLOOD SPECIMEN Ordering Facility: [facility] Address: [address] [place] [address] Result Comment: Scl- 70/Scleroderma antibody test is used as an aid in diagnosis of systemic sclerosis especially the diffuse cutaneous form. A negative result cannot rule out systemic sclerosis. The final interpretation should consider clinical picture and other test results such as anti-centromere antibody. Test Methodology: Multiplex flow immunoassay. Performed By: #### 4 7322-3, 18984-2, 24900-1, 60141-1, 10141-3, 15350-6, 88442-8, 92751-8 #### [facility] CLIA [id number] [address] [place] [address] [place] Sjogrens syndrome-A extracta ble nuclear Ab Qn (S)on 11-04-2023 SSA ANTIBODY QUAL Negative Normal Negative [facility] Comment on above: Order Comment: Speci men Type: BLOOD SPECIMEN Ordering Facility: [facility] Address: [address] [place] [address] Performed By: #### 4 7322-3, 28472-9, 76787-4, 62934-1, 68138-3, 97682-0, 52435-4, 62298-7 #### [facility] CLIA [id number] [address] [place] [address] [place] Sjogrens syndrome-B extracta ble nuclear Ab Qn (S)on 11-04-2023 SSB ANTIBODY QUAL Negative Normal Negative [facility] Comment on above: Order Comment: Zeyad san Type: BLOOD SPECIMEN Ordering Facility: [facility] Address: [address] [place] [address] Performed By: #### 5 7021-8, 4537-7 #### [facility] CLIA [id number] [address] [place] [address] [place] Donis extractable nuclear Ig G Qn (S)on 11-04-2023 SM ANTIBODY QUAL Negative Normal Negative [facility] Comment on above: Order Comment: Zeyad san Type: BLOOD SPECIMEN Ordering Facility: [facility] Address: [address] [place] [address] Result Comment: Anti -Sm (Donis) antibody is used as an aid in diagnosis of systemic lupus erythematosus and its presence is associated with renal disease. A negative result cannot rule out systemic lupus erythematosus. Clinical correlation is required. Test Methodology: Multiplex flow immunoassay. Performed By: #### 5 7021-8, 4537-7 #### [facility] CLIA [id number] [address] [place] [address] [place] Vit B12 SerPl-mCncon 024 Cobalamin (Vitamin B12) [Mass/Vol] 353 pg/mL Normal 232-1245 [facility] Comment on above: Order Comment: Zeyad san Type: BLOOD SPECIMEN Ordering Facility: [facility] Address: [address] [place] [address] Performed By: #### 2 4323-8, 1987-, 2139 #### [facility] CLIA [id number] [facility] [place] [id number] [place] Nuclear Ab IA Ql (S)Ordered By: Cecy Mcdonald on 08-10-2023 CHANDANA Scr Qual Positive Abnormal Negative [facility] Comment on above: The qualitative anti nuclear antibody screen test performed using the following antigens: dsDNA, Chromatin, Ribosomal P, SS-A 60, SS-A 52, SS-B, Sm, SmRNP, DRILLING ENGINEER A, DRILLING ENGINEER 68, Scl-70, Guerline-1, and Centromere B. Methodology: Multiplex flow immunoassay. Interpretation and review of laboratory results Abnormal [facility] RHEUMATOID FACTORon 08-09-19 24 Rheumatoid factor Qn 14 [IU]/mL NINF [facility] Rheumatoid factor Qnon 08-08 Interpretation and review of laboratory results Normal [facility] Basophil percentageon 2023 Cholesterol [Mass/Vol] 221 mg/dL <200 [facility] Comment on above: <200 mg/dL Desirable 200-240 mg/dL Borderline >240 mg/dL High Risk Triglyceride [Mass/Vol] 313 mg/dL <199 [facility] Comment on above: The drugs N-Acetylcy steine and Metamizole may falsely depress this assay.Serum Triglycerides Reference Interval Normal <150 mg/dL Borderline high 150 - 199 mg/dL High 200 - 499 mg/dL Very High > or = 500 mg/dL Cholesterol in LDL Direct as say [Mass/Vol]on 03-06-2023 Cholesterol in LDL [Mass/Vol] 145 mg/dL 0-99 [facility] Comment on above: Performed at: - [address] [id number] Director: Loy Lopez PhD, Phone: [phone] Laboratory - Miscellaneous t estson 03-06-2023 Service comment (Unsp spec) [Interp] TNP [facility] Comment on above: Test not performed Serum or plasma cholesterol in HDL measurement (mass/volume)on 03-06-2023 Cholesterol in HDL [Mass/Vol] 33 mg/dL >40 [facility] Comment on above: The drugs N-Acetylcy steine and Metamizole may falsely depress this assay. Reference Range HDL <40 mg/dL Low HDL Cholesterol HDL >or= 60 mg/dL High HDL Cholesterol Serum or plasma cholesterol in VLDL measurement (mass/volume)on 03-06-2023 Cholesterol in VLDL [Mass/Vol] 63 mg/dL 5-40 [facility] Serum or plasma low density lipoprotein (LDL) cholesterol measurement (mass/volume)on 03-06-2023 Cholesterol in LDL [Mass/Vol] 125 mg/dL 0-130 [facility] Absolute lymphocyte countOrd ered By: Dr. Kapadia on 07-03-2022 Lymphocytes Auto (Unsp spec) [#/Vol] 2.94 10*3/uL 0.83-4.51 [facility] Basophil percentageOrdered B y: Dr. Kapadia on 07-03-2022 Basophils/100 WBC (Bld) 1.1 % 0-1 [facility] Chloride [Moles/Vol] 103 mmol/L 98-107 [facility] Eosinophils/100 WBC (Bld) 3.5 % 0-5 [facility] Glucose [Mass/Vol] 101 mg/dL 74-106 [facility] Comment on above: Fasting Glucose resu lt from 100 to 125 mg/dL suggests IMPAIRED HOMEOSTASIS per A.D.A. criteria. Neutrophils (Bld) [#/Vol] 5.1 10*3/uL 2.0-7.7 [facility] Neutrophils/100 WBC (Bld) 55.7 % 47-70 [facility] Potassium [Moles/Vol] 4.0 mmol/L 3.5-5.1 [facility] Sodium [Moles/Vol] 138 mmol/L 136-145 [facility] WBC (Bld) [#/Vol] 9.2 10*3/uL 4.4-11.0 [facility] Blood erythrocytes count (nu mber/volume)Ordered By: Dr. Kapadia on 07-03-2022 RBC (Bld) [#/Vol] 5.43 10*6/uL 4.6-6.2 [facility] Blood hemoglobin measurement (mass/volume)Ordered By: Dr. Kapadia on 07-03-2022 Hemoglobin (Bld) [Mass/Vol] 15.8 g/dL 13.0-16.5 [facility] Blood lymphocytes/100 leukoc ytesOrdered By: Dr. Kapadia on 07-03-2022 Lymphocytes/100 WBC (Bld) 32.1 % 19-41 [facility] Blood monocytes/100 leukocyt esOrdered By: Dr. Kapadia on 07-03-2022 Monocytes/100 WBC (Bld) 5.2 % 0-10 [facility] Blood platelet mean volumeOr dered By: Dr. Kapadia on 07-03-2022 Platelet mean volume (Bld) [Entitic vol] 9.1 fL 6.2-12.0 [facility] Determination of erythrocyte mean corpuscular volume (MCV)Ordered By: Dr. Kapadia on 07-03-2022 MCV (RBC) [Entitic vol] 84.3 fL 80-94 [facility] Hematocrit Auto (Bld) [Volum e fraction]Ordered By: Dr. Kapadia on 07-03-2022 Hematocrit (Bld) [Volume fraction] 45.8 % 40-54 [facility] Laboratory - Chemistry and C hemistry - challengeOrdered By: Dr. Kapadia on 07-03-2022 CO2 [Moles/Vol] 27.0 mmol/L 21.0-32.0 [facility] Urea nitrogen/Creatinine [Mass ratio] 19.6 mg/mg 10-20 [facility] Laboratory - Hematology and Cell countsOrdered By: Dr. Kapadia on 07-03-2022 Erythrocyte distribution width (RBC) [Entitic vol] 43.8 fL 35.1-43.9 [facility] Erythrocyte distribution width (RBC) [Ratio] 14.2 % 11.6-14.6 [facility] Immature granulocytes/100 WBC (Bld) 2.400 % 0.0-0.9 [facility] Comment on above: IG% - Immature Granu locytes (promyelocytes, myelocytes and metamyelocytes) > 1% indicates that a LEFT SHIFT is Present. MCH (RBC) [Entitic mass] 29.1 pg 27.0-32.0 [facility] Nucleated RBC/100 WBC (Bld) [Ratio] 0 % 0-5 [facility] MCHC Auto (RBC) [Mass/Vol]Or dered By: Dr. Kapadia on 07-03-2022 MCHC (RBC) [Mass/Vol] 34.5 g/dL 32-36 [facility] No Panel InformationOrdered By: Dr. Kapadia on 07-03-2022 Estimated Creatinine Clearance Calc 103.13 ml/min [facility] Estimated GFR (MDRD) Amer 98 mL/min >60 [facility] Comment on above: GFR Calc Estimated GFR (MDRD) Non-Af Amer 81 mL/min >60 [facility] Comment on above: Non- GFR Calc Troponin I High Sensitivity 6 pg/mL 3.0-78.0 [facility] Comment on above: Please Note: New Andrzej t Units and Gender Specific Reference Ranges. For more information see Policy Stat Procedure Boyd High Sensitivity Troponin (TNIH) and attachments. Platelets bldOrdered By: Dr. Kapadia on 07-03-2022 Platelets (Bld) [#/Vol] 308 10*3/uL 150-450 [facility] Serum or plasma calcium alexandrea urement (mass/volume)Ordered By: Dr. Kapadia on 07-03-2022 Calcium [Mass/Vol] 9.6 mg/dL 8.5-10.1 [facility] Serum or plasma creatinine m easurement (mass/volume)Ordered By: Dr. Kapadia on 07-03-2022 Creatinine [Mass/Vol] 1.02 mg/dL 0.70-1.30 [facility] Comment on above: The validity of the calculated GFR & GFRAA in patients over 70 years has not been determined. Clinical correlation is essential. Serum or plasma urea nitroge n measurement (mass/volume)Ordered By: Dr. Kapadia on 07-03-2022 Urea nitrogen [Mass/Vol] 20 mg/dL 7-18 [facility] Thin prep Papanicolaou smear with manual screeningOrdered By: Dr. Kapadia on 07-03-2022 Thin prep Papanicolaou smear with manual screening 8 5-15 [facility] Absolute lymphocyte countOrd ered By: Jess Rosas on 05-15-2022 Lymphocytes Auto (Unsp spec) [#/Vol] 1.91 10*3/uL 0.83-4.51 [facility] Basophil percentageOrdered B y: Jess Rosas on 05-15-2022 Basophils/100 WBC (Bld) 1.2 % 0-1 [facility] Bilirubin [Mass/Vol] 0.40 mg/dL 0.20-1.00 [facility] Comment on above: For patients on eltr ombopag therapy, use of Dimension Boyd TBIL is not recommended. Chloride [Moles/Vol] 106 mmol/L 98-107 [facility] Eosinophils/100 WBC (Bld) 3.3 % 0-5 [facility] Glucose [Mass/Vol] 109 mg/dL 74-106 [facility] Comment on above: Fasting Glucose resu lt from 100 to 125 mg/dL suggests IMPAIRED HOMEOSTASIS per A.D.A. criteria. Neutrophils (Bld) [#/Vol] 3.3 10*3/uL 2.0-7.7 [facility] Neutrophils/100 WBC (Bld) 57.0 % 47-70 [facility] Potassium [Moles/Vol] 4.2 mmol/L 3.5-5.1 [facility] Protein [Mass/Vol] 7.9 g/dL 6.4-8.2 [facility] Sodium [Moles/Vol] 139 mmol/L 136-145 [facility] Testosterone [Mass/Vol] 429 ng/dL [phone] [facility] Comment on above: Adult male reference interval is based on a population ofhealthy nonobese males (BMI <30) between 19 and 39 yearsold. jason Hartman.al. JCEM 2017,102;6158-8079. PMID:[id number]. WBC (Bld) [#/Vol] 5.8 10*3/uL 4.4-11.0 [facility] Blood erythrocytes count (nu mber/volume)Ordered By: Jess Rosas on 05-15-2022 RBC (Bld) [#/Vol] 5.37 10*6/uL 4.6-6.2 [facility] Blood hemoglobin measurement (mass/volume)Ordered By: Jess Rosas on 05-15-2022 Hemoglobin (Bld) [Mass/Vol] 15.6 g/dL 13.0-16.5 [facility] Blood lymphocytes/100 leukoc ytesOrdered By: Jess Rosas on 05-15-2022 Lymphocytes/100 WBC (Bld) 33.1 % 19-41 [facility] Blood monocytes/100 leukocyt esOrdered By: Jess Rosas on 05-15-2022 Monocytes/100 WBC (Bld) 5.2 % 0-10 [facility] Blood platelet mean volumeOr dered By: Jess Rosas on 05-15-2022 Platelet mean volume (Bld) [Entitic vol] 9.7 fL 6.2-12.0 [facility] Determination of erythrocyte mean corpuscular volume (MCV)Ordered By: Jess Rosas on 05-15-2022 MCV (RBC) [Entitic vol] 84.5 fL 80-94 [facility] Erythrocyte sedimentation ra teOrdered By: Jess Rosas on 05-15-2022 ESR (Bld) [Velocity] 10 mm/h 0-20 [facility] Free testosterone percentage Ordered By: Jess Rosas on 05-15-2022 Testosterone Free/Testosterone.total [Mass fraction] 2.23 % 1.50-4.20 [facility] Comment on above: Performed at: [address] [id number] Director: Loy Lopez PhD, Phone: [phone] at: [facility] [address] [id number] Director: Sylvia Chapman MD, Phone: [phone] Hematocrit Auto (Bld) [Volum e fraction]Ordered By: Jess Rosas on 05-15-2022 Hematocrit (Bld) [Volume fraction] 45.4 % 40-54 [facility] Laboratory - Chemistry and C hemistry - challengeOrdered By: Jess Rosas on 05-15-2022 ALP [Catalytic activity/Vol] 63 U/L 45-117 [facility] ALT [Catalytic activity/Vol] 24 U/L 16-61 [facility] CO2 [Moles/Vol] 28.0 mmol/L 21.0-32.0 [facility] Globulin (S) [Mass/Vol] 3.8 g/dL 2.2-4.2 [facility] Urea nitrogen/Creatinine [Mass ratio] 12.5 mg/mg 10-20 [facility] Laboratory - Hematology and Cell countsOrdered By: Jess Rosas on 05-15-2022 Erythrocyte distribution width (RBC) [Entitic vol] 42.8 fL 35.1-43.9 [facility] Erythrocyte distribution width (RBC) [Ratio] 13.9 % 11.6-14.6 [facility] Immature granulocytes/100 WBC (Bld) 0.200 % 0.0-0.9 [facility] Comment on above: IG% - Immature Granu locytes (promyelocytes, myelocytes and metamyelocytes) > 1% indicates that a LEFT SHIFT is Present. MCH (RBC) [Entitic mass] 29.1 pg 27.0-32.0 [facility] Nucleated RBC/100 WBC (Bld) [Ratio] 0 % 0-5 [facility] MCHC Auto (RBC) [Mass/Vol]Or dered By: Jess Rosas on 05-15-2022 MCHC (RBC) [Mass/Vol] 34.4 g/dL 32-36 [facility] No Panel InformationOrdered By: Jess Rosas on 05-15-2022 Estimated GFR (MDRD) Amer 95 mL/min >60 [facility] Comment on above: GFR Calc Estimated GFR (MDRD) Non-Af Amer 79 mL/min >60 [facility] Comment on above: Non- GFR Calc Prostate Specific Antigen Screen 2.69 ng/mL 0.00-4.00 [facility] Comment on above: This test was perfor med using the TPSA assay method for the[facility] system. Values obtained with differentassay methods cannot be used interchangably.When changing PSA assays in the course of monitoring apatient, additional sequential testing should be carriedout to confirm baseline values. Thyroid Stimulating Hormone (TSH) 0.84 uIU/mL 0.358-3.74 [facility] Platelets bldOrdered By: Mariah Rosas on 05-15-2022 Platelets (Bld) [#/Vol] 297 10*3/uL 150-450 [facility] Serum or plasma C reactive p rotein measurement (mass/volume)Ordered By: Jess Rosas on 05-15-2022 CRP [Mass/Vol] 8.24 mg/L 0.0-3.0 [facility] Comment on above: C-Reactive Protein ( CRP) provides useful information for thediagnosis, therapy and monitoring of inflammatory processesand associated diseases. For the evaluation of Relative Riskfor Cardiovascular Disease, a High Sensitivity CRP (HSCRP)should be ordered. Serum or plasma albumin alexandrea urement (mass/volume)Ordered By: Jess Rosas on 05-15-2022 Albumin [Mass/Vol] 4.1 g/dL 3.2-5.0 [facility] Serum or plasma albumin/glob ulin mass ratioOrdered By: Jess Rosas on 05-15-2022 Albumin/Globulin [Mass ratio] 1.1 {ratio} 0.9-2.4 [facility] Serum or plasma calcium alexandrea urement (mass/volume)Ordered By: Jess Rosas on 05-15-2022 Calcium [Mass/Vol] 9.5 mg/dL 8.5-10.1 [facility] Serum or plasma creatinine m easurement (mass/volume)Ordered By: Jess Rosas on 05-15-2022 Creatinine [Mass/Vol] 1.04 mg/dL 0.70-1.30 [facility] Comment on above: The validity of the calculated GFR & GFRAA in patients over 70 years has not been determined. Clinical correlation is essential. Serum or plasma testosterone free measurement (mass/volume)Ordered By: Jess Rosas on 05-15-2022 Testosterone Free [Mass/Vol] 9.57 ng/dL 5.00-21.00 [facility] Serum or plasma urea nitroge n measurement (mass/volume)Ordered By: Jess Rosas on 05-15-2022 Urea nitrogen [Mass/Vol] 13 mg/dL 7-18 [facility] Thin prep Papanicolaou smear with manual screeningOrdered By: Jess Rosas on 05-15-2022 Thin prep Papanicolaou smear with manual screening 17 U/L 15-37 [facility] Thin prep Papanicolaou smear with manual screening 5 5-15 [facility] O2 SATURATION (POC)on 2021 %HbO2 (Oxyhemoglobin)(POCT) 94.7 % [facility] Additional Comments (POCT) Venous 60%-85%; Arterial 95%-98% [facility] Comment (POCT) No anatomical site given %HBO2 ref range [facility] Hemoglobin (Bld) [Mass/Vol] 13.3 g/dL Abnormal 13.5 - 17.5 g/dL [facility] %HbO2 (Oxyhemoglobin)(POCT) 69.5 % [facility] Additional Comments (POCT) Venous 60%-85%; Arterial 95%-98% [facility] Comment (POCT) No anatomical site given %HBO2 ref range [facility] Hemoglobin (Bld) [Mass/Vol] 12.9 g/dL Abnormal 13.5 - 17.5 g/dL [facility] %HbO2 (Oxyhemoglobin)(POCT) 72.4 % [facility] Additional Comments (POCT) Venous 60%-85%; Arterial 95%-98% [facility] Comment (POCT) No anatomical site given %HBO2 ref range [facility] Hemoglobin (Bld) [Mass/Vol] 12.5 g/dL Abnormal 13.5 - 17.5 g/dL [facility] Absolute lymphocyte counton 10-01-2021 Lymphocytes Auto (Unsp spec) [#/Vol] 2.81 10*3/uL 0.83-4.51 [facility] Work Phone: Basophil percentageon 2021 Basophils/100 WBC (Bld) 1.0 % 0-1 [facility] Work Phone: Bilirubin [Mass/Vol] 0.40 mg/dL 0.20-1.00 [facility] Work Phone: Comment on above: For patients on eltr ombopag therapy, use of Dimension Boyd TBIL is not recommended. Chloride [Moles/Vol] 102 mmol/L 98-107 [facility] Work Phone: Eosinophils/100 WBC (Bld) 4.3 % 0-5 [facility] Work Phone: Glucose [Mass/Vol] 99 mg/dL 74-106 [facility] Work Phone: Neutrophils (Bld) [#/Vol] 3.9 10*3/uL 2.0-7.7 [facility] Work Phone: Neutrophils/100 WBC (Bld) 51.2 % 47-70 [facility] Work Phone: Potassium [Moles/Vol] 4.6 mmol/L 3.5-5.1 [facility] Work Phone: [phone] Protein [Mass/Vol] 7.9 g/dL 6.4-8.2 [facility] Work Phone: [phone] Sodium [Moles/Vol] 137 mmol/L 136-145 [facility] Work Phone: [phone] WBC (Bld) [#/Vol] 7.6 10*3/uL 4.4-11.0 [facility] Work Phone: [phone] Blood erythrocytes count (nu mber/volume)on 10-01-2021 RBC (Bld) [#/Vol] 4.72 10*6/uL 4.6-6.2 [facility]: Blood hemoglobin measurement (mass/volume)on 10-01-2021 Hemoglobin (Bld) [Mass/Vol] 13.9 g/dL 13.0-16.5 [facility] Work Phone: [phone] Blood lymphocytes/100 leukoc yteson 10-01-2021 Lymphocytes/100 WBC (Bld) 36.8 % 19-41 [facility] Work Phone: [phone] Blood monocytes/100 leukocyt eson 10-01-2021 Monocytes/100 WBC (Bld) 6.3 % 0-10 [facility] Work Phone: [phone] Blood platelet mean volumeon 10-01-2021 Platelet mean volume (Bld) [Entitic vol] 10.4 fL 6.2-12.0 [facility] Work Phone: Determination of erythrocyte mean corpuscular volume (MCV)on 10-01-2021 MCV (RBC) [Entitic vol] 83.9 fL 80-94 [facility] Work Phone: Hematocrit Auto (Bld) [Volum e fraction]on 10-01-2021 Hematocrit (Bld) [Volume fraction] 39.6 % 40-54 [facility] Work Phone: Laboratory - Chemistry and C hemistry - challengeon 10-01-2021 ALP [Catalytic activity/Vol] 67 U/L 45-117 [facility] Work Phone: [phone] ALT [Catalytic activity/Vol] 29 U/L 16-61 [facility] Work Phone: [phone] CO2 [Moles/Vol] 31.0 mmol/L 21.0-32.0 [facility] Work Phone: [phone] Globulin (S) [Mass/Vol] 3.8 g/dL 2.2-4.2 [facility] Work Phone: [phone] Natriuretic peptide B (Bld) [Mass/Vol] 39.2 pg/mL 0-100 [facility] Work Phone: [phone] Urea nitrogen/Creatinine [Mass ratio] 15.1 mg/mg 10-20 [facility] Work Phone: [phone] Laboratory - Hematology and Cell countson 10-01-2021 Erythrocyte distribution width (RBC) [Entitic vol] 40.8 fL 35.1-43.9 [facility] Work Phone: [phone] Erythrocyte distribution width (RBC) [Ratio] 13.2 % 11.6-14.6 [facility] Work Phone: [phone] Immature granulocytes/100 WBC (Bld) 0.400 % 0.0-0.9 [facility] Work Phone: [phone] Comment on above: IG% - Immature Granu locytes (promyelocytes, myelocytes and metamyelocytes) > 1% indicates that a LEFT SHIFT is Present. MCH (RBC) [Entitic mass] 29.4 pg 27.0-32.0 [facility] Work Phone: [phone] Nucleated RBC/100 WBC (Bld) [Ratio] 0 % 0-5 [facility] Work Phone: [phone] MCHC Auto (RBC) [Mass/Vol]on 10-01-2021 MCHC (RBC) [Mass/Vol] 35.1 g/dL 32-36 [facility] Work Phone: [phone] Panel Informationon 10-01 Estimated GFR (MDRD) Amer 77 mL/min >60 [facility] Work Phone: Comment on above: GFR Calc Estimated GFR (MDRD) Non-Af Amer 63 mL/min >60 [facility] Work Phone: Comment on above: Non- GFR Calc Platelets bldon 10-01-2021 Platelets (Bld) [#/Vol] 260 10*3/uL 150-450 [facility] Work Phone: Serum or plasma albumin alexandrea urement (mass/volume)on 10-01-2021 Albumin [Mass/Vol] 4.1 g/dL 3.2-5.0 [facility] Work Phone: Serum or plasma albumin/glob ulin mass ratioon 10-01-2021 Albumin/Globulin [Mass ratio] 1.1 {ratio} 0.9-2.4 [facility] Work Phone: Serum or plasma calcium alexandrea urement (mass/volume)on 10-01-2021 Calcium [Mass/Vol] 9.6 mg/dL 8.5-10.1 [facility] Work Phone: Serum or plasma creatinine m easurement (mass/volume)on 10-01-2021 Creatinine [Mass/Vol] 1.26 mg/dL 0.70-1.30 [facility] Work Phone: Comment on above: The validity of the calculated GFR & GFRAA in patients over 70 years has not been determined. Clinical correlation is essential. Serum or plasma urea nitroge n measurement (mass/volume)on 10-01-2021 Urea nitrogen [Mass/Vol] 19 mg/dL 7-18 [facility] Work Phone: [phone] Thin prep Papanicolaou smear with manual screeningon 10-01-2021 Thin prep Papanicolaou smear with manual screening 18 U/L 15-37 [facility] Work Phone: [phone] Thin prep Papanicolaou smear with manual screening 4 5-15 [facility] Work Phone: [phone] NM CARDIAC PERF STRESS/PHARM on 09-08-2021 NM [...] 60 minutes later. See administered doses below. [facility] Date of service: 09/08/2021 1:34:15 PM Ordering [...] of scarring. Final -------- Stress ECG Report: [facility] Date of service: 09/08/2021 1:34:15 PM Ordering physician: FELICITAS CHAVEZ immigration specialist: Sadia Dudley Account Developer: Vani Perdomo Interpreting physician: Adelfo Canales MD Patient name: HAYDEN PENDLETON Age: 56 years Gender: M Height: [...] 186/83 mmHg. The double product achieved was 65771. Previous cardiovascular interventions: CABG (2020 x 4) [...] / 83 mmHg Rate Pressure Product (RPP): 39357 Stress Exercise Observations: Reason for test termination: end of protocol, Symptoms during test: Other symptoms during the test included SOB, ST segment and T wave changes: No ST changes and Arrhythmias: Unifocal PVCs Final -------- Stress Chief Lock Operator Report: [facility] Date of service: 09/08/2021 1:34:15 PM (more content not included)... Normal [facility] Radha 09-05-2021 ROSALES Telephone (CDLBME) HAYDEN PENDLETON ([id number]) 1965 M Date Time Provider Department 09/05/21 [...] Fully Assessed Reason for Visit: Reminder Call [[id number]] Prescriptions as of 09/05/2021 - isosorbide mononitrate [...] Encounter Status:Closed by VANI PERDOMO on 09/05/21 [facility] Absolute lymphocyte counton 08-29-2021 Lymphocytes Auto (Unsp spec) [#/Vol] 2.14 10*3/uL 0.83-4.51 [facility] Work Phone: Basophil percentageon 2021 Basophils/100 WBC (Bld) 1.3 % 0-1 [facility] Work Phone: Chloride [Moles/Vol] 107 mmol/L 98-107 [facility] Work Phone: Eosinophils/100 WBC (Bld) 4.8 % 0-5 [facility] Work Phone: Glucose [Mass/Vol] 110 mg/dL 74-106 [facility] Work Phone: Comment on above: Fasting Glucose resu lt from 100 to 125 mg/dL suggests IMPAIRED HOMEOSTASIS per A.D.A. criteria. Neutrophils (Bld) [#/Vol] 5.4 10*3/uL 2.0-7.7 [facility] Work Phone: Neutrophils/100 WBC (Bld) 62.7 % 47-70 [facility] Work Phone: Potassium [Moles/Vol] 4.1 mmol/L 3.5-5.1 [facility] Work Phone: Sodium [Moles/Vol] 141 mmol/L 136-145 [facility] Work Phone: WBC (Bld) [#/Vol] 8.6 10*3/uL 4.4-11.0 [facility] Work Phone: Blood erythrocytes count (nu mber/volume)on 08-29-2021 RBC (Bld) [#/Vol] 4.69 10*6/uL 4.6-6.2 [facility] Work Phone: Blood hemoglobin measurement (mass/volume)on 08-29-2021 Hemoglobin (Bld) [Mass/Vol] 13.9 g/dL 13.0-16.5 [facility] Work Phone: Blood lymphocytes/100 leukoc yteson 08-29-2021 Lymphocytes/100 WBC (Bld) 24.8 % 19-41 [facility] Work Phone: Blood monocytes/100 leukocyt eson 08-29-2021 Monocytes/100 WBC (Bld) 6.1 % 0-10 [facility] Work Phone: Blood platelet mean volumeon 08-29-2021 Platelet mean volume (Bld) [Entitic vol] 10.1 fL 6.2-12.0 [facility] Work Phone: [phone] Determination of erythrocyte mean corpuscular volume (MCV)on 08-29-2021 MCV (RBC) [Entitic vol] 82.5 fL 80-94 [facility] Work Phone: [phone] Hematocrit Auto (Bld) [Volum e fraction]on 08-29-2021 Hematocrit (Bld) [Volume fraction] 38.7 % 40-54 [facility] Work Phone: [phone] Laboratory - Chemistry and C hemistry - challengeon 08-29-2021 CO2 [Moles/Vol] 29.0 mmol/L 21.0-32.0 [facility] Work Phone: [phone] Urea nitrogen/Creatinine [Mass ratio] 14.2 mg/mg 10-20 [facility] Work Phone: [phone] Laboratory - Hematology and Cell countson 08-29-2021 Erythrocyte distribution width (RBC) [Entitic vol] 42.4 fL 35.1-43.9 [facility] Work Phone: [phone] Erythrocyte distribution width (RBC) [Ratio] 14.3 % 11.6-14.6 [facility] Work Phone: [phone] Immature granulocytes/100 WBC (Bld) 0.300 % 0.0-0.9 [facility] Work Phone: [phone] Comment on above: IG% - Immature Granu locytes (promyelocytes, myelocytes and metamyelocytes) > 1% indicates that a LEFT SHIFT is Present. MCH (RBC) [Entitic mass] 29.6 pg 27.0-32.0 [facility] Work Phone: Nucleated RBC/100 WBC (Bld) [Ratio] 0 % 0-5 [facility] Work Phone: [phone] MCHC Auto (RBC) [Mass/Vol]on 08-29-2021 MCHC (RBC) [Mass/Vol] 35.9 g/dL 32-36 [facility] Work Phone: No Panel Informationon 08-29 Troponin I High Sensitivity 5 pg/mL 3.0-78.0 [facility] Work Phone: Comment on above: Please Note: New Andrzej t Units and Gender Specific Reference Ranges. For more information see Policy Stat Procedure Boyd High Sensitivity Troponin (TNIH) and attachments. Estimated Creatinine Clearance Calc 65.74 ml/min [facility] Work Phone: Estimated GFR (MDRD) Amer 67 mL/min >60 [facility] Work Phone: Comment on above: GFR Calc Estimated GFR (MDRD) Non-Af Amer 56 mL/min >60 [facility] Work Phone: Comment on above: Non- GFR Calc Platelets bldon 08-29-2021 Platelets (Bld) [#/Vol] 265 10*3/uL 150-450 [facility] Work Phone: Serum or plasma calcium alexandrea urement (mass/volume)on 08-29-2021 Calcium [Mass/Vol] 9.0 mg/dL 8.5-10.1 [facility] Work Phone: Serum or plasma creatinine m easurement (mass/volume)on 08-29-2021 Creatinine [Mass/Vol] 1.41 mg/dL 0.70-1.30 [facility] Work Phone: Comment on above: The validity of the calculated GFR & GFRAA in patients over 70 years has not been determined. Clinical correlation is essential. Serum or plasma urea nitroge n measurement (mass/volume)on 08-29-2021 Urea nitrogen [Mass/Vol] 20 mg/dL 7-18 [facility] Work Phone: Thin prep Papanicolaou smear with manual screeningon 08-29-2021 Thin prep Papanicolaou smear with manual screening 5 5-15 [facility] Work Phone: XR Chest PA and Lateralon IMPRESSION: No acute radiographic abnormality. Tablet Technician: PSCB Transcribe Date/Time: Nov 22 2020 1:59P Dictated by : JEROD SEGOVIA MD This examination was interpreted and the report reviewed and electronically signed by: JEROD SEGOVIA MD on Nov 22 2020 2:02PM [facility] DIVISION OF RADIOLOGY * * *Final Report* [...] shows degenerative changes. DIVISION OF RADIOLOGY [facility] * * *Final Report* * [...] changes. IMPRESSION IMPRESSION: No acute radiographic abnormality. Tablet Technician: PSCB Transcribe Date/Time: Nov 22 2020 1:59P Dictated by : JEROD SEGOVIA MD This examination was interpreted and the report reviewed and electronically signed by: JEROD SEGOVIA MD on Nov 22 2020 2:02PM EST [facility] Radiology Study observation (narrative) Jeny ly [facility] XR Chest PA and LateralOrder ed By: [facility] Provider on 11-22-2020 [facility] Vital Signs Date Time Vital Sign Value Performing Clinician Facility 08-29-2024 14:52-0400 Body height 185.42 cm Jess Rosas [employer] Work Phone: [phone] [place] [address] 08-29-2024 14:52-0400 Body mass index (BMI) [Ratio] 27.6 kg/m2 Jess Rosas [employer] Work Phone: [phone] [place] [address] 08-29-2024 14:52-0400 Body temperature 98.6 [degF] Jess Rosas [employer] Work Phone: [phone] [place] [address] 08-29-2024 14:52-0400 Body weight 94.8 kg Jess Rosas [employer] Work Phone: [phone] [place] [address] 08-29-2024 14:52-0400 Diastolic blood pressure 89 mm[Hg] Jess Rosas [employer] Work Phone: [phone] [place] [address] 08-29-2024 14:52-0400 Heart rate 81 /min Jess Rosas [employer] Work Phone: [phone] [place] [address] 08-29-2024 14:52-0400 Respiratory rate 15 /min Jess Rosas [employer] Work Phone: [phone] [place] [address] 08-29-2024 14:52-0400 SaO2% (BldA) [Mass fraction] 96 % Jess Rosas [employer] Work Phone: [phone] [place] [address] 08-29-2024 14:52-0400 Systolic blood pressure 156 mm[Hg] Jess Rosas [employer] Work Phone: [phone] [place] [address] 08-03-2024 08:43-0400 Body temperature 98.4 [degF] Jess Rosas [employer] Work Phone: [phone] [place] [address] 08-03-2024 08:43-0400 Body weight 95.33 kg Jess Rosas [employer] Work Phone: [phone] [place] [address] 08-03-2024 08:43-0400 Diastolic blood pressure 72 mm[Hg] Jess Rosas [employer] Work Phone: [phone] [place] [address] 08-03-2024 08:43-0400 Heart rate 85 /min Jess Rosas [employer] Work Phone: [phone] [place] [address] 08-03-2024 08:43-0400 Respiratory rate 17 /min Jess Rosas [employer] Work Phone: [phone] [place] [address] 08-03-2024 08:43-0400 SaO2% (BldA) [Mass fraction] 97 % Jess Rosas [employer]SHIP LEADER[employer]C Work Phone: 7(907)600-558420 [place] [address] 08-03-2024 08:43-0400 Systolic blood pressure 150 mm[Hg] Jess Rosas WORSHIP LEADER[employer]C Work Phone: 9(697)276-56[address] [place] [address] 07-05-2024 15:14-0400 Diastolic blood pressure 89 mm[Hg] Jess Rosas WORSHIP LEADER-C Work Phone: 1(086)888-110620 [place] [address] 07-05-2024 15:14-0400 Heart rate 75 /min Jess Rosas WORSHIP LEADER-C Work Phone: 9(223)243-469120 [place] [address] 07-05-2024 15:14-0400 Systolic blood pressure 126 mm[Hg] Jess Rosas WORSHIP LEADER-C Work Phone: 6(685)517-782320 [place] [address] 07-05-2024 08:14-0400 Body height 185.42 cm Jess Rosas WORSHIP LEADER-C Work Phone: 0(373)950-486320 [place] [address] 07-05-2024 08:14-0400 Body mass index (BMI) [Ratio] 27.1 kg/m2 Jess Rosas WORSHIP LEADER-C Work Phone: 5(447)328-401620 [place] [address] 07-05-2024 08:14-0400 Body temperature 98 [degF] Jess Rosas WORSHIP LEADER-C Work Phone: 2(106)874-618220 [place] [address] 07-05-2024 08:14-0400 Body weight 93.44 kg Jess Rosas WORSHIP LEADER-C Work Phone: [facility] 07-05-2024 08:14-0400 Diastolic blood pressure 61 mm[Hg] Jess Bentonder WORSHIP LEADER-C Work Phone: [facility] 07-05-2024 08:14-0400 Heart rate 70 /min Jess Rosas WORSHIP LEADER-C Work Phone: [facility] 07-05-2024 08:14-0400 Respiratory rate 16 /min Jess Rosas WORSHIP LEADER-C Work Phone: [facility] 07-05-2024 08:14-0400 SaO2% (BldA) [Mass fraction] 97 % Jess Rosas WORSHIP LEADER-C Work Phone: [facility] 07-05-2024 08:14-0400 Systolic blood pressure 102 mm[Hg] Jess Rosas WORSHIP LEADER-C Work Phone: [facility] 06-06-2024 14:50-0400 Body height 185.4 cm Felicitas Chavez MD Work Phone: [facility] 06-06-2024 14:50-0400 Body mass index (BMI) [Ratio] 26.65 kg/m2 Felicitas Chavez MD Work Phone: [facility] 06-06-2024 14:50-0400 Body weight 91.63 kg Felicitas Chavez MD Work Phone: [facility] 06-06-2024 14:50-0400 Diastolic blood pressure 71 mm[Hg] Felicitas Chavez MD Work Phone: [facility] 06-06-2024 14:50-0400 Respiratory rate 16 /min Felicitas Chavez MD Work Phone: [facility] 06-06-2024 14:50-0400 SaO2% (BldA) [Mass fraction] 96 % Felicitas Chavez MD Work Phone: [facility] 06-06-2024 14:50-0400 Systolic blood pressure 123 mm[Hg] Felicitas Chavez MD Work Phone: [facility] 05-26-2024 15:27-0400 Body mass index (BMI) [Ratio] 26.4 kg/m2 Jess Rosas WORSHIP LEADER-C Work Phone: 5(597)507-309510 [place] [address] 05-26-2024 14:40-0400 Body temperature 98 [degF] Jess Rosas WORSHIP LEADER-C Work Phone: 5(428)104-139920 [place] [address] 05-26-2024 14:40-0400 Diastolic blood pressure 86 mm[Hg] Jess Rosas WORSHIP LEADER-C Work Phone: 3(238)966-506310 [place] [address] 05-26-2024 14:40-0400 Heart rate 94 /min Jess Rosas WORSHIP LEADER-C Work Phone: 4(210)170-378820 [place] [address] 05-26-2024 14:40-0400 Respiratory rate 15 /min Jess Rosas WORSHIP LEADER-C Work Phone: 9(016)650-355120 [place] [address] 05-26-2024 14:40-0400 SaO2% (BldA) [Mass fraction] 99 % Jess Rosas WORSHIP LEADER-C Work Phone: 8(851)177-589310 [place] [address] 05-26-2024 14:40-0400 Systolic blood pressure 132 mm[Hg] Jess Rosas WORSHIP LEADER-C Work Phone: 6(841)683-771220 [place] [address] 05-26-2024 09:34-0400 Body height 185.42 cm Jess Rosas WORSHIP LEADER-C Work Phone: 9(638)810-685810 [place] [address] 05-26-2024 09:34-0400 Body weight 91.1 kg Jess Rosas WORSHIP LEADER-C Work Phone: 7(302)400-741220 [place] [address] 05-25-2024 14:30-0400 Diastolic blood pressure 77 mm[Hg] Jess Rosas WORSHIP LEADER-C Work Phone: 2(324)656-498320 [place] [address] 05-25-2024 14:30-0400 Heart rate 62 /min Jess Rosas WORSHIP LEADER-C Work Phone: 4(663)473-470220 [place] [address] 05-25-2024 14:30-0400 Respiratory rate 15 /min Jess Rosas WORSHIP LEADER-C Work Phone: 6(757)317-071820 [place] [address] 05-25-2024 14:30-0400 SaO2% (BldA) [Mass fraction] 98 % Jess Rosas WORSHIP LEADER-C Work Phone: [facility] 05-25-2024 14:30-0400 Systolic blood pressure 120 mm[Hg] Jess Rosas WORSHIP LEADER-C Work Phone: [facility] 05-25-2024 14:23-0400 Body temperature 98.2 [degF] Jess Rosas WORSHIP LEADER-C Work Phone: [facility] 05-25-2024 13:27-0400 Body mass index (BMI) [Ratio] 27.2 kg/m2 Jess Rosas WORSHIP LEADER-C Work Phone: [facility] 05-25-2024 13:27-0400 Body weight 93.7 kg Jess Rosas WORSHIP LEADER-C Work Phone: [facility] 05-25-2024 12:19-0400 Body height 185.42 cm Jess Rosas WORSHIP LEADER-C Work Phone: [facility] 11-04-2023 09:44-0400 Body mass index (BMI) [Ratio] 27.36 kg/m2 Ciera Palm MD Work Phone: [facility] 11-04-2023 09:44-0400 Body temperature 97.39 [degF] Ciera Palm MD Work Phone: [facility] 11-04-2023 09:44-0400 Body weight 91.5 kg Ciera Palm MD Work Phone: [facility] 11-04-2023 09:44-0400 Diastolic blood pressure 92 mm[Hg] Ciera Palm MD Work Phone: [facility] 11-04-2023 09:44-0400 Heart rate 71 /min Ciera Palm MD Work Phone: [facility] 11-04-2023 09:44-0400 Systolic blood pressure 147 mm[Hg] Ciera Palm MD Work Phone: [facility] 07-03-2022 10:44-0400 Body height 195.[address] Quang Hanson Work Phone: [facility] 07-03-2022 10:44-0400 Body mass index (BMI) [Ratio] 24.5 kg/m2 Dr. Quang Hanson Work Phone: [facility] 07-03-2022 10:44-0400 Body temperature 98 [degF] Dr. Quang Hanson Work Phone: [facility] 07-03-2022 10:44-0400 Body weight 93.[address] Quang Hanson Work Phone: [facility] 07-03-2022 10:44-0400 Diastolic blood pressure 90 mm[Hg] Dr. Quang Hanson Work Phone: [facility] 07-03-2022 10:44-0400 Heart rate 70 /min Dr. Quang Hanson Work Phone: [facility] 07-03-2022 10:44-0400 Respiratory rate 18 /min Dr. Quang Hanson Work Phone: [facility] 07-03-2022 10:44-0400 SaO2% (BldA) [Mass fraction] 100 % Dr. Quang Hanson Work Phone: [facility] 07-03-2022 10:44-0400 Systolic blood pressure 143 mm[Hg] Dr. Quang Hanson Work Phone: [facility] 07-03-2022 10:21-0400 Body temperature 97.3 [degF] Dr. Quang Hanson Work Phone: [facility] 07-03-2022 10:21-0400 Diastolic blood pressure 84 mm[Hg] Dr. Quang Hanson Work Phone: [facility] 07-03-2022 10:21-0400 Heart rate 74 /min Dr. Quang Hanson Work Phone: [facility] 07-03-2022 10:21-0400 Respiratory rate 20 /min Dr. Quang Hanson Work Phone: [facility] 07-03-2022 10:21-0400 SaO2% (BldA) [Mass fraction] 99 % Dr. Quang Hanson Work Phone: [facility] 07-03-2022 10:21-0400 Systolic blood pressure 136 mm[Hg] Dr. Quang Hanson Work Phone: [facility] 05-14-2022 15:05-0400 Body height 195.[address] Quang Hanson Work Phone: [facility] 05-14-2022 15:05-0400 Body mass index (BMI) [Ratio] 24.4 kg/m2 Dr. Quang Hanson Work Phone: [facility] 05-14-2022 15:05-0400 Body temperature 98 [degF] Dr. Quang Hanson Work Phone: [facility] 05-14-2022 15:05-0400 Body weight 93.[address] Quang Hanson Work Phone: [facility] 05-14-2022 15:05-0400 Diastolic blood pressure 100 mm[Hg] Dr. Quang Hanson Work Phone: [facility] 05-14-2022 15:05-0400 Heart rate 85 /min Dr. Quang Hanson Work Phone: [facility] 05-14-2022 15:05-0400 Respiratory rate 16 /min Dr. Quang Hanson Work Phone: [facility] 05-14-2022 15:05-0400 SaO2% (BldA) [Mass fraction] 96 % Dr. Quang Hanson Work Phone: [facility] 03-23-2023 15:05-0400 Systolic blood pressure 148 mm[Hg] Dr. Quang Hanson Work Phone: [facility] 12-30-2021 13:31-0500 Body height 184.[address] Quang Hanson Work Phone: [facility] Work Phone: 12-30-2021 13:31-0500 Body mass index (BMI) [Ratio] 27.4 kg/m2 Dr. Quang Hanson Work Phone: [facility] Work Phone: 12-30-2021 13:31-0500 Body temperature 97.3 [degF] Dr. Quang Hanson Work Phone: [facility] Work Phone: 12-30-2021 13:31-0500 Body weight 92.[address] Quang Hanson Work Phone: [facility] Work Phone: 12-30-2021 13:31-0500 Diastolic blood pressure 90 mm[Hg] Dr. Quang Hanson Work Phone: [facility] Work Phone: 12-30-2021 13:31-0500 Heart rate 84 /min Dr. Quang Hanson Work Phone: [facility] Work Phone: 12-30-2021 13:31-0500 Respiratory rate 17 /min Dr. Quang Hanson Work Phone: [facility] Work Phone: 12-30-2021 13:31-0500 SaO2% (BldA) [Mass fraction] 99 % Dr. Quang Hanson Work Phone: [facility] Work Phone: 12-30-2021 13:31-0500 Systolic blood pressure 158 mm[Hg] Dr. Quang Hanson Work Phone: [facility] Work Phone: 11-10-2021 15:16-0400 Body mass index (BMI) [Ratio] 27.8 kg/m2 Dr. Quang Hanson Work Phone: [facility] Work Phone: 11-10-2021 15:16-0400 Body temperature 97.1 [degF] Dr. Quang Hanson Work Phone: [facility] Work Phone: 11-10-2021 15:16-0400 Body weight 95.[address] Quang Hanson Work Phone: [facility] Work Phone: 11-10-2021 15:16-0400 Diastolic blood pressure 66 mm[Hg] Dr. Quang Hanson Work Phone: [facility] Work Phone: 11-10-2021 15:16-0400 Heart rate 81 /min Dr. Quang Hanson Work Phone: [facility] Work Phone: 11-10-2021 15:16-0400 Respiratory rate 18 /min Dr. Quang Hanson Work Phone: [facility] Work Phone: 11-10-2021 15:16-0400 SaO2% (BldA) [Mass fraction] 98 % Dr. Quang Hanson Work Phone: [facility] Work Phone: 11-10-2021 15:16-0400 Systolic blood pressure 148 mm[Hg] Dr. Quang Hanson Work Phone: [facility] Work Phone: 11-05-2021 13:00-0400 Heart rate 77 /min Anette Garcia MD Work Phone: [facility] 11-05-2021 13:00-0400 Respiratory rate 26 /min Anette Garcia MD Work Phone: [facility] 11-05-2021 13:00-0400 SaO2% (BldA) [Mass fraction] 98 % Anette Garcia MD Work Phone: [facility] 11-05-2021 12:45-0400 Diastolic blood pressure 135 mm[Hg] Anette Garcia MD Work Phone: [facility] 11-05-2021 12:45-0400 Systolic blood pressure 171 mm[Hg] Anette Garcia MD Work Phone: [facility] 10-21-2021 13:42-0400 Body mass index (BMI) [Ratio] 27.3 kg/m2 Dr. Quang Hanson Work Phone: [facility] Work Phone: 10-21-2021 13:42-0400 Body temperature 97.5 [degF] Dr. Quang Hanson Work Phone: [facility] Work Phone: 10-21-2021 13:42-0400 Body weight [address] Quang Hanson Work Phone: [facility] Work Phone: 10-21-2021 13:42-0400 Diastolic blood pressure 74 mm[Hg] Dr. Quang Hanson Work Phone: [facility] Work Phone: 10-21-2021 13:42-0400 Heart rate 82 /min Dr. Quang Hanson Work Phone: [facility] Work Phone: 10-21-2021 13:42-0400 Respiratory rate 16 /min Dr. Quang Hanson Work Phone: [facility] Work Phone: 10-21-2021 13:42-0400 SaO2% (BldA) [Mass fraction] 99 % Dr. Quang Hanson Work Phone: [facility] Work Phone: 10-21-2021 13:42-0400 Systolic blood pressure 155 mm[Hg] Dr. Quagn Hanson Work Phone: [facility] Work Phone: 10-15-2021 13:01-0400 Body height 182.9 cm Felicitas Chavez MD Work Phone: [facility] 10-15-2021 13:01-0400 Body weight 94.48 kg Felicitas Chavez MD Work Phone: [facility] 10-15-2021 13:01-0400 Diastolic blood pressure 67 mm[Hg] Felicitas Chavez MD Work Phone: [facility] 10-15-2021 13:01-0400 Heart rate 71 /min Felicitas Chavez MD Work Phone: [facility] 10-15-2021 13:01-0400 SaO2% (BldA) [Mass fraction] 99 % Felicitas Chavez MD Work Phone: [facility] 10-15-2021 13:01-0400 Systolic blood pressure 135 mm[Hg] Felicitas Chavez MD Work Phone: [facility] 10-01-2021 13:32-0400 Body height 185.[address] Quang Hanson Work Phone: [facility] Work Phone: 10-01-2021 13:32-0400 Body mass index (BMI) [Ratio] 27.3 kg/m2 Dr. Quang Hanson Work Phone: [facility] Work Phone: 10-01-2021 13:32-0400 Body temperature 98.3 [degF] Dr. Quang Hanson Work Phone: [facility] Work Phone: 10-01-2021 13:32-0400 Body weight 93.[address] Quang Hanson Work Phone: [facility] Work Phone: 10-01-2021 13:32-0400 Diastolic blood pressure 78 mm[Hg] Dr. Quang Hanson Work Phone: [facility] Work Phone: 10-01-2021 13:32-0400 Heart rate 92 /min Dr. Quang Hanson Work Phone: [facility] Work Phone: 10-01-2021 13:32-0400 Respiratory rate 14 /min Dr. Quang Hanson Work Phone: [facility] Work Phone: 10-01-2021 13:32-0400 SaO2% (BldA) [Mass fraction] 98 % Dr. Quang Hanson Work Phone: [facility] Work Phone: 10-01-2021 13:32-0400 Systolic blood pressure 136 mm[Hg] Dr. Quang Hanson Work Phone: [facility] Work Phone: 09-09-2021 12:30-0400 Body height 185.[address] Quang Hanson Work Phone: [facility] Work Phone: 09-09-2021 12:30-0400 Body weight 94.[address] Quang Hanson Work Phone: [facility] Work Phone: 09-09-2021 12:30-0400 Heart rate 86 /min Dr. Quang Hanson Work Phone: [facility] Work Phone: 09-09-2021 12:30-0400 Inhaled oxygen concentration 21 % Dr. Quang Hanson Work Phone: [facility] Work Phone: 09-09-2021 12:30-0400 SaO2% (BldA) [Mass fraction] 98 % Dr. Quang Hanson Work Phone: [facility] Work Phone: 09-03-2021 14:26-0400 Body height 182.9 cm Felicitas Chavez MD Work Phone: [facility] 09-03-2021 14:26-0400 Body temperature 97.5 [degF] Felicitas Chavez MD Work Phone: [facility] 09-03-2021 14:26-0400 Body weight 94.8 kg Felicitas Chavez MD Work Phone: [facility] 09-03-2021 14:26-0400 Diastolic blood pressure 71 mm[Hg] Felicitas Chavez MD Work Phone: [facility] 09-03-2021 14:26-0400 Heart rate 81 /min Felicitas Chavez MD Work Phone: [facility] 09-03-2021 14:26-0400 SaO2% (BldA) [Mass fraction] 99 % Felicitas Chavez MD Work Phone: [facility] 09-03-2021 14:26-0400 Systolic blood pressure 141 mm[Hg] Felicitas Chavez MD Work Phone: [facility] 08-29-2021 18:29-0400 Diastolic blood pressure 86 mm[Hg] Dr. Quang Hanson Work Phone: [facility] Work Phone: 08-29-2021 18:29-0400 Heart rate 70 /min Dr. Quang Hanson Work Phone: [facility] Work Phone: 08-29-2021 18:29-0400 Respiratory rate 18 /min Dr. Quang Hanson Work Phone: [facility] Work Phone: 08-29-2021 18:29-0400 SaO2% (BldA) [Mass fraction] 96 % Dr. Quang Hanson Work Phone: [facility] Work Phone: 08-29-2021 18:29-0400 Systolic blood pressure 148 mm[Hg] Dr. Quang Hanson Work Phone: [facility] Work Phone: 08-29-2021 16:22-0400 Body mass index (BMI) [Ratio] 27.9 kg/m2 Dr. Quang Hanson Work Phone: [facility] Work Phone: 08-29-2021 16:22-0400 Body temperature 97.7 [degF] Dr. Quang Hanson Work Phone: [facility] Work Phone: 08-29-2021 16:22-0400 Body weight 93.[address] Quang Hanson Work Phone: [facility] Work Phone: 08-29-2021 08:36-0400 Body mass index (BMI) [Ratio] 28 kg/m2 Dr. Quang Hanson Work Phone: [facility] Work Phone: 08-29-2021 08:36-0400 Body temperature 98.3 [degF] Dr. Quang Hanson Work Phone: [facility] Work Phone: 08-29-2021 08:36-0400 Body weight 93.[address] Quang Hanson Work Phone: [facility] Work Phone: 08-29-2021 08:36-0400 Diastolic blood pressure 87 mm[Hg] Dr. Quang Hanson Work Phone: [facility] Work Phone: 08-29-2021 08:36-0400 Heart rate 86 /min Dr. Quang Hanson Work Phone: [facility] Work Phone: 08-29-2021 08:36-0400 Respiratory rate 17 /min Dr. Quang Hanson Work Phone: [facility] Work Phone: 08-29-2021 08:36-0400 SaO2% (BldA) [Mass fraction] 98 % Dr. Quang Hanson Work Phone: [facility] Work Phone: 08-29-2021 08:36-0400 Systolic blood pressure 136 mm[Hg] Dr. Quang Hanson Work Phone: [facility] Work Phone: Encounters Encounter Date Encounter Type Care Provider Facility Start: 10-13-2024 ambulatory [facility] Facility :[facility] Start: 10-10-2024 End: 10-10-2024 Telephone encounter Neurology Provider Neurology Start: 09-26-2024 End: 09-26-2024 ambulatory Jess Rosas [employer]SH[employer] LEADER[employer]C Work Phone: -[facility] Start: 09-26-2024 End: 09-26-2024 Patient encounter procedure Faheem Hyde [employer]SHIP LEADER-C -[facility] Start: 09-26-2024 End: 09-26-2024 ambulatory Jess Deisy [facility] Facility:[facility] Start: 08-29-2024 End: 08-29-[address] Terrell Quiles MD -[facility] Work Phone: Start: 08-29-2024 End: 08-29-2024 ambulatory Jess Rosas WORSHIP LEADER-C Work Phone: -[facility] Start: 08-03-2024 End: 08-03-2024 ambulatory Jess Rosas WORSHIP LEADER-C Work Phone: [facility] [place] [place] [facility] Work Phone: Start: 08-03-2024 End: 08-03-[address] Terrell Quiles MD -[facility] Work Phone: Start: 08-03-2024 End: 08-03-2024 ambulatory Jess Bentonder [facility] Facility:[facility] Start: 07-27-2024 End: 07-27-2024 ambulatory Jess Rosas WORSHIP LEADER-C Work Phone: [facility] Work Phone: Start: 07-27-2024 End: 07-27-[address] Terrell Quiles MD -[facility] Work Phone: Start: 07-27-2024 End: 07-27-2024 ambulatory Jess Bentonder WORSHIP LEADER-C Work Phone: [facility] Work Phone: Start: 07-27-2024 End: 07-27-[address] Terrell Quiles MD -[facility] Work Phone: Start: 07-27-2024 End: 07-27-2024 ambulatory Terrell Quiles Facility:[facility] Start: 07-12-2024 End: 07-12-2024 ambulatory CELIA SANDERS Facility:[facility] Start: 07-05-2024 End: 07-05-[address] Terrell Quiles MD -[facility] Work Phone: Start: 07-05-2024 End: 07-05-2024 ambulatory Jess Rosas [employer]SHIP LEADER-C Work Phone: [facility] [place] [place] [facility] Work Phone: Start: 07-03-2024 End: 07-03-2024 ambulatory Celia Sanders PT [facility] Comment on above: Vestibular hypofunct ion, unspecified laterality (Primary Dx) Start: 06-21-2024 End: 06-21-2024 ambulatory Claritza Vargas OTR/L Work Phone: [facility] Comment on above: Cognitive impairment Start: 06-20-2024 End: 06-20-2024 Patient encounter procedure Faheem LOWERY -Laboratory, [facility] Start: 06-20-2024 End: 06-20-2024 ambulatory Jess Rosas [facility] Facility:[facility] Start: 06-14-2024 End: 08-14-2024 Follow-up encounter Jose Tucker MD Work Phone: [facility] Start: 06-09-2024 End: 06-13-2024 Evaluation and management of inpatient [facility] Facility:[facility] Start: 06-06-2024 End: 06-06-2024 Subsequent hospital visit by physician Card [facility] Comment on above: Palpitations [R00.2] Start: 06-06-2024 End: 06-06-2024 Patient encounter procedure Felicitas Chavez MD Work Phone: [facility] Comment on above: Coronary artery dise ase involving [place] coronary artery of [place] heart without angina pectoris (Primary Dx); SHAH (dyspnea on exertion); Vertigo; Palpitations; Dyslipidemia; Hx of CABG Start: 06-06-2024 End: 06-06-2024 ambulatory JESS ROSAS Facility:[facility] Start: 06-02-2024 ambulatory Marcos Lovelace [facility] ility:[facility] Start: 05-26-2024 Non-patient / Non-visit Dr. Hernández DO -[facility] Work Phone: Start: 05-26-2024 ambulatory Tom Medina Facility:[facility] Start: 05-26-2024 Non-patient / Non-visit [facility]. Kaina HU [facility] Start: 05-25-2024 End: 05-26-2024 ambulatory Joi Woodson Facility:[facility] Start: 05-25-2024 End: 05-26-2024 Evaluation and management of inpatient Dr. Joi Woodson MD -Progressive Care Unit Work Phone: Start: 05-25-2024 End: 05-26-2024 observation encounter Jess Rosas WORSHIP LEADER-C Work Phone: [facility] Work Phone: Start: 2024 End: 2024 ambulatory Jess Rosas WORSHIP LEADER-C Work Phone: [facility] Work Phone: Start: 2024 End: 2024 Patient encounter procedure Jess Rosas WORSHIP LEADER-C -Laboratory, Natalie Grajeda Start: 2024 End: 2024 ambulatory Jess Rosas [facility] Facility:[facility] Start: 04-09-2024 End: 04-10-2024 Refill Felicitas Chavez MD Work Phone: [facility] Comment on above: Refill Request Start: 03-22-2024 End: 03-22-2024 Refill Froylan Calhoun MD Work Phone: Cardiology Comment on above: Refill Request Start: 02-24-2024 End: 02-24-2024 Patient encounter procedure Jess Rosas WORSHIP LEADER-C -Laboratory Work Phone: Start: 02-24-2024 End: 02-24-2024 ambulatory Jess Rosas [facility] Facility:[facility] Start: 01-08-2024 End: 01-10-2024 Refill Felicitas Chavez MD Work Phone: Cardiology Comment on above: Refill Request Start: 01-07-2024 End: 01-07-2024 Telephone encounter Felicitas Chavez MD Work Phone: [facility] Comment on above: Appointment Start: 01-06-2024 End: 01-07-2024 Refill Felicitas Chavez MD Work Phone: [facility] Comment on above: Refill Request Start: 11-22-2023 End: 11-22-2023 ambulatory Ciera Palm MD Work Phone: Rheumatology Comment on above: CHANDANA positive (Primar y Dx); Chronic pain of both knees; Primary osteoarthritis of both knees Start: 11-22-2023 End: 11-22-2023 Telemedicine consultation with patient Ciera Palm MD Work Phone: Rheumatology Start: 11-09-2023 End: 11-09-2023 ambulatory [facility] Facility:[facility] Start: 11-09-2023 End: 11-09-2023 Subsequent hospital visit by physician Prudence [facility] Mynor Feng Work Phone: Radiology Comment on above: Chronic pain of both knees [M25.561, M25.562, G89.29] Start: 11-04-2023 End: 11-04-2023 ambulatory [facility] Facility:[facility] Start: 11-04-2023 End: 11-04-2023 ambulatory [facility] Facility:[facility] Start: 11-04-2023 End: 11-04-2023 Office consultation new/estab patient 80 min Ciera Palm MD Work Phone: Rheumatology Comment on above: Chronic bilateral lo w back pain without sciatica (Primary Dx); CHANDANA positive; Chronic pain of both knees; Primary osteoarthritis of both knees Start: 08-11-2023 ambulatory Ramirez Thomas MD Work Phone: Orthopaedics Comment on above: Blood work Start: 08-09-2023 ambulatory Ramirez Thomas MD Work Phone: Orthopaedics Comment on above: Doctor excuse Start: 08-09-2023 End: 08-09-2023 Patient encounter procedure Ramirez Thomas MD Work Phone: Orthopaedics Comment on above: Chronic pain of both knees (Primary Dx); Primary osteoarthritis of both knees; CHANDANA positive Start: 08-09-2023 End: 08-09-2023 Subsequent hospital visit by physician Prudence [facility] Mynor Feng Work Phone: Radiology Comment on above: Pain in both knees, unspecified chronicity [M25.561, M25.562] Start: 07-27-2023 Orders Only Ramirez Thomas MD Work Phone: Orthopaedics Comment on above: Pain in both knees, unspecified chronicity (Primary Dx) Start: 07-18-2023 Refill Felicitas Chavez MD Work Phone: Cardiology Comment on above: Refill Request Start: 03-06-2023 End: 03-06-2023 ambulatory [facility] Work Phone: Start: 03-06-2023 End: 03-06-2023 Patient encounter procedure [facility]-Laboratory Work Phone: Start: 12-29-2022 Refill Felicitas Chavez MD Work Phone: Cardiology Comment on above: Refill Request Start: 11-09-2022 Telephone encounter Felicitas Hernandez i, MD Work Phone: [facility] Cardiology [place] Comment on above: Appointment Refill Request Start: 09-28-2022 Refill Felicitas Chavez MD Work Phone: Cardiology Comment on above: Refill Request Start: 07-03-2022 End: 07-03-2022 Emergency department patient visit Dr. Quang Hanson Work Phone: [facility]-Emergency Department Start: 07-03-2022 End: 07-03-[address] Quang Hanson Work Phone: [facility] Start: 06-23-2022 End: 06-23-[address] Quang Hanson Work Phone: [facility] Work Phone: Start: 06-23-2022 End: 06-23-[address] Quang Hanson Work Phone: [facility] Start: 05-29-2022 Refill Felicitas Chavez MD Work Phone: Cardiology Comment on above: Refill Request Start: 05-29-2022 Telephone encounter Felicitas Hernandez i, MD Work Phone: Cardiology Comment on above: Medication Problem Start: 05-15-2022 End: 05-15-[address] Quang Hanson Work Phone: [facility]-Laboratory, [place] Start: 05-14-2022 End: 05-14-[address] Quang Hanson Work Phone: [facility] Internal Medicine Start: 01-10-2022 End: 01-10-[address] Quang Hanson Work Phone: [facility] Work Phone: Start: 01-10-2022 End: 01-10-[address] Quang Hanson Work Phone: [facility]-Radiology, [facility] Start: 12-30-2021 End: 12-30-[address] Quang Hanson Work Phone: [facility] Start: 12-06-2021 Refill Felicitas Chavez MD Work Phone: Cardiology Comment on above: Refill Request Start: 11-12-2021 Telephone encounter Felicitas Hernandez i, MD Work Phone: [facility] [place] Comment on above: Barrel Handler - O ther Start: 11-10-2021 End: 11-10-[address] Quang Hanson Work Phone: [facility] Internal Medicine Start: 11-05-2021 End: 11-05-2021 Subsequent hospital visit by physician Anette Garcia MD Work Phone: [place] [employer] Comment on above: Unstable angina (HCC ) [I20.0], ACS (acute coronary syndrome) (HCC) [I24.9] Start: 11-03-2021 Telephone encounter Felicitas Hernandez i, MD Work Phone: Cardiology Comment on above: Results Start: 10-23-2021 ambulatory Felicitas Chavez MD Work Phone: Cardiology Comment on above: Heart cath Start: 10-23-2021 Telephone encounter Felicitas Hernandez i, MD Work Phone: [facility] Cardiology [place] Comment on above: Patient Update; Wilian rs Start: 10-21-2021 End: 10-21-[address] Quang Hans[facility] Start: 10-15-2021 End: 10-15-2021 Patient encounter procedure Felicitas Chavez MD Work Phone: Cardiology Comment on above: Coronary artery dise ase involving [place] coronary artery of [place] heart without angina pectoris (Primary Dx); Hx of CABG; Smoker; SHAH (dyspnea on exertion) Start: 10-06-2021 End: 10-06-[address] Quang Hanson Work Phone: [facility] Start: 10-01-2021 End: 10-01-[address] Quang Hanson Work Phone: [facility] Internal Medicine Start: 09-22-2021 Non-patient / Non-visit Dr. Vincenzo Hanson Work Phone: [facility] Start: 09-22-2021 End: 09-22-[address] Quang Hanson Work Phone: [facility] Start: 09-09-2021 Telephone encounter Felicitas Hernandez i, MD Work Phone: Cardiology Comment on above: Patient Question; Mary hernandez Update Results Start: 09-09-2021 End: 09-09-[address] Quang Hanson Work Phone: [facility]-Pulmonary Services/Neurology Start: 09-09-2021 Non-patient / Non-visit Dr. Vincenzo Hanson Work Phone: [facility] Start: 09-08-2021 End: 09-08-2021 Subsequent hospital visit by physician [facility] Work Phone: Cardiology Lab Comment on above: Precordial pain [R07 .2] Start: 09-05-2021 Telephone encounter Vani pacheco superintendent job Lab Comment on above: Reminder Call Start: 09-03-2021 End: 09-03-2021 Patient encounter procedure Felicitas Chavez MD Work Phone: Cardiology Comment on above: Coronary artery dise ase involving [place] coronary artery of [place] heart without angina pectoris (Primary Dx); Precordial pain; Hx of CABG; SHAH (dyspnea on exertion); Primary hypertension Start: 08-29-2021 End: 08-29-2021 Emergency department patient visit Dr. Quang Hanson Work Phone: [facility]-Emergency Department Start: 08-29-2021 Telephone encounter Felicitas Hernandez i, MD Work Phone: Cardiology Comment on above: Patient Question; Pa tient Update Start: 08-29-2021 End: 08-29-[address] Quang Hanson [facility] Start: 05-20-2021 Refill Felicitas Chavez MD Work Phone: Cardiology Comment on above: Refill Request Start: 11-22-2020 End: 11-22-2020 Subsequent hospital visit by physician Xr [facility] Work Phone: Radiology Comment on above: S/P CABG x 4 [Z95.1] Procedures Date Procedure Procedure Detail Performing Clinician Start: 09-26-2024 Total iron binding capacity measurement Jess Rosas WORSHIP LEADER-C Work Phone: Start: 09-26-2024 Vitamin D, 25-hydroxy measurement Jess francis WORSHIP LEADER-C Work Phone: Comment on above: Vitamin D StatusDeficiency: <20 ng/mL (5 0nmol/L)Insufficiency: 20-30 ng/mL (50-75 nmol/L)Sufficiency: 30-100 ng/mL (75-250 nmol/L)Toxicity: >100 ng/mL (>250 nmol/L) Start: 08-03-2024 Albumin/Globulin ratio Jess Rosas WORSHIP LEADER-C Work Phone: Start: 08-03-2024 Immunoglobulin M measurement Jess Rosas WORSHIP LEADER-C Work Phone: Start: 08-03-2024 Urine immunofixation Jess TRIVEDIC Work Phone: Comment on above: No monoclonality detected.Performed at: [address] [id number] Director: Loy Lopez PhD, Phone: [phone] Start: 07-27-2024 MRI of cervical spine with contrast Jess Rosas WORSHIP LEADER-C Work Phone: Start: 07-27-2024 Folic acid measurement, RBC Jess Rosas N P-C Work Phone: Comment on above: Performed at: [address] [id number] Director: Loy Lopez PhD, Phone: [phone] Start: 07-27-2024 Procedure Jess Rosas WORSHIP LEADERAlbertC Work Phone: Comment on above: Test Ordered: [id number] Metanephrines, Frac ., Pl. FreeTest(s) 134983-Opunvanjwwsgvkr, Pl; 431573-Koirqtuqhfgo, Plwas developed and its performance characteristicsdetermined by [facility]. It has not been cleared or approvedby the Food and Drug Administration.Normetanephrine, Pl 104.0 pg/mL Reference Range: 0.0-244.0Metanephrine, Pl <25.0 pg/mL Reference Range: 0.0-88.0Performed at: [address] [id number] Director: Sylvia Chapman MD, Phone: [phone] at: [address] [id number] Director: Loy Lopez PhD, Phone: [phone] Start: 07-27-2024 Urine lambda light chain measurement Jess Rosas WORSHIP LEADER-C Work Phone: Start: 06-20-2024 Measurement of Borrelia burgdorferi antibody Jess Rosas WORSHIP LEADER-C Work Phone: Comment on above: Lyme antibodies not detected. Reflex andrzej ting is notindicated.No laboratory evidence of infection with B. burgdorferi(Lyme disease). Negative results may occur in patientsrecently infected (less than or equal to 14 days) with B.burgdorferi. If recent infection is suspected, repeattesting on a new sample collected in 7 to 14 days isrecommended.Performed at: [address] [id number] Director: Loy Lopez PhD, Phone: [phone] Start: 06-06-2024 Ecg routine ecg w/least 12 lds w/i&r Felicitas Chavez MD Work Phone: Start: 05-26-2024 Estimated creatinine clearance Jess skinner WORSHIP LEADER-C Work Phone: Start: 05-25-2024 MRI of brain without contrast Jess Rosas WORSHIP LEADER-C Work Phone: Start: 05-25-2024 CT angiography of head and neck Jess Valdovinos floyd WORSHIP LEADER-C Work Phone: Start: 02-05-2023 History of coronary artery bypass grafting Hx of CABG Felicitas Chavez MD Work Phone: Start: 07-03-2022 Plain chest X-ray Dr. Quang Hanson Work Phone: Start: 06-23-2022 End: 06-23-2022 Radiologic examination of knee Dr. Deshawn Hanson Work Phone: Start: 01-10-2022 Radiologic examination of lumbosacral spine, complete, with bending views Dr. Quang Hanson Work Phone: Start: 11-05-2021 End: 11-05-2021 O2 SATURATION (POC) Anette Garcia MD Work Phone: Start: 10-06-2021 Computed tomography of abdomen and pelvis with contrast Dr. Quang Hanson Work Phone: Start: 09-22-[address] Quang Hanson Work Phone: Start: 09-08-2021 Myocardial spect multiple studies Felicitas Chavez MD Work Phone: Start: 08-29-2021 Plain chest X-ray Dr. Quang Hanson Work Phone: Start: 11-22-2020 Radiologic exam chest 2 views Kaycee Long TECHNOLOGY PROGRAM MANAGER.[employer]CHITECT Start: 10-28-2020 History of coronary artery bypass grafting S/P CABG x 4 Felicitas Chavez MD Work Phone: Start: 10-23-2020 Lipid 1996 panel - Serum or Plasma Felicitas Chavez MD Work Phone: [...] bypass grafting S/P CABG x 4 [facility] [place] Work Phone: History of coronary artery bypass grafting Hx of CABG Felicitas Chavez MD Work Phone: Plan of Treatment Date Care Activity Detail Author Start: 06-10-2027 Diabetes Screening Diabetes Screening [facility] Start: 11-03-2026 Diabetes Screening Diabetes Screening [facility] Start: 10-23-2025 Lipid 1996 panel - Serum or Plasma Lipid Screening [facility] Start: 10-23-2025 Lipid panel Lipid Screening [facility] Start: 10-23-2025 LIPID SCREEN LIPID SCREEN [facility] Start: 06-06-2025 BP Controlled (<130/80) BP Controlled (<130/80) [facility] Start: 11-01-2024 DIABETES SCREEN DIABETES SCREEN [facility] Start: 11-01-2024 Diabetes Screening Diabetes Screening [facility] Start: 10-23-2024 Influenza vaccination [facility] Start: 07-27-2024 Folic acid measurement, RBC [facility] Start: 07-27-2024 Procedure [facility] Start: 07-27-2024 [facility] Start: 07-12-2024 End: 07-12-2024 ambulatory 07/12/2024 9:45 AM EDT OT/PT/Speech Visit [facility] [address] [place] [address] Celia Sanders, PT 1 week [facility] Comment on above: 1 week Start: 07-11-2024 End: 07-11-2024 Patient encounter procedure 07/11/2024 1:30 PM EDT OT/PT/Speech Visit [facility] Speech [facility] [address] [place] [address] Rocio Schuster, DANIEL-SENIOR RESEARCH MANAGER Consult [facility] Speech Therapy Comment on above: Consult Start: 07-03-2024 End: 07-03-2024 ambulatory 07/03/2024 8:00 AM EDT OT/PT/Speech Visit [facility] [address] [place] [address] Celia Sanders, PT Walking [facility] Comment on above: Walking Start: 06-06-2024 End: 06-06-2024 Patient encounter procedure 06/06/2024 3:00 PM EDT Office Visit [facility] [address] [place] [address] Felicitas Chavez MD [address] [place], [place] [id number] overdue annual CAD srs [facility] Comment on above: overdue annual CAD srs Start: 05-26-2024 Patient discharge [facility] Start: 05-26-2024 [facility] Start: 05-25-2024 Aspiration precautions [facility] Start: 05-25-2024 Assessment of risk of venous thromboembolism [facility] Start: 05-25-2024 Cardiac monitoring [facility] Start: 05-25-2024 Catheterization of vein [facility] Start: 05-25-2024 Consultation [facility] Start: 05-25-2024 Elevation of head of bed [facility] Start: 05-25-2024 Exercises [facility] Start: 05-25-2024 Insertion of catheter into peripheral vein [facility] Start: 05-25-2024 Measuring intake and output [facility] Start: 05-25-2024 Notification of physician [facility] Start: 05-25-2024 Oxygen therapy [facility] Start: 05-25-2024 Patient referral to dietitian [facility] Start: 05-25-2024 Providing care according to standard [facility] Start: 05-25-2024 Provision of activity privileges [facility] Start: 05-25-2024 Referral to occupational therapist [facility] Start: 05-25-2024 Referral to service [facility] Start: 05-25-2024 Speech therapy assessment [facility] Start: 05-25-2024 Telemedicine consultation with patient [facility] Start: 05-25-2024 Tobacco use cessation education [facility] Start: 05-25-2024 Vital signs measurements [facility] Start: 05-25-2024 Following clinical pathway protocol [facility] Start: 05-25-2024 End: 05-25-2024 [facility] Start: 05-25-2024 Admission procedure [facility] Start: 05-25-2024 Hospital admission, emergency, from emergency room, medical nature [facility] Start: 05-25-2024 Oxygen therapy [facility] Start: 05-25-2024 End: 05-25-2024 [facility] Start: 05-25-2024 End: 05-25-2024 Patient encounter procedure 05/25/2024 12:20 PM EDT Office Visit [facility] [place] [address] [place], [place] [id number] Rafael Durán MD [address] [place], [place] [address] establish care [facility] [place] Comment on above: establish care Start: 11-22-2023 End: 11-22-2023 ambulatory 11/22/2023 3:40 PM EDT [facility] [address] [address] Ciera Palm MD [address] [place] [address] Positive CHANDANA/Osteoarthritis Rheumatology Comment on above: Positive CHANDANA/Osteoarthritis Start: 11-22-2023 End: 02-21-2024 Urinalysis complete panel - Urine URINALYSIS, WITH MICROSCOPIC Lab Routine CHANDANA positive Expected: 11/22/2023, Expires: 02/21/2024 [facility] Work Phone: Comment on above: Expected: 11/22/2023, Expires: Start: 11-09-2023 End: 11-09-2023 Patient encounter procedure Radiology Comment on above: Chronic pain of both knees [M25.561, M25 .562, G89.29] Start: 11-04-2023 End: 02-03-2024 C reactive protein [Mass/volume] in Serum or Plasma [facility] Comment on above: Expected: 11/04/2023, Expires: 4 Start: 11-04-2023 End: 02-03-2024 Cobalamin (Vitamin B12) [Mass/volume] in Serum or Plasma [facility] Comment on above: Expected: 11/04/2023, Expires: 4 Start: 11-04-2023 End: 02-03-2024 Comprehensive metabolic 2000 panel - Serum or Plasma [facility] Comment on above: Expected: 11/04/2023, Expires: 4 Start: 11-04-2023 End: 02-03-2024 Extractable nuclear Ab panel - Serum [facility] Comment on above: Expected: 11/04/2023, Expires: Start: 11-04-2023 End: 02-03-2024 Hemoglobin A1c in Blood [facility] Work Phone: Comment on above: Expected: 11/04/2023, Expires: 4 Start: 11-04-2023 End: 02-03-2024 Thyrotropin [Units/volume] in Serum or Plasma THYROID STIMULATING HORMONE Lab Routine CHANDANA positive Expected: 11/04/2023, Expires: 02/03/2024 [facility] Comment on above: Expected: 11/04/2023, Expires: Start: 10-29-2023 DIABETES SCREEN DIABETES SCREEN [facility] Start: 10-24-2023 Covid-19 Vaccine () Covid-19 Vaccine () [facility] Start: 10-24-2023 Covid-19 Vaccine () Covid-19 Vaccine () [facility] Start: 10-24-2023 Influenza vaccination [facility] Start: 08-09-2023 End: 08-09-2023 Patient encounter procedure 08/09/2023 8:15 AM EDT Office Visit Orthopaedics [address] [place], [place] [id number] Ramirez Thomas MD [address] [place], [place] [id number] bilateral knee pain Orthopaedics Comment on above: bilateral knee pain Start: 10-23-2022 Covid-19 Vaccine () Covid-19 Vaccine () [facility] Start: 10-23-2022 Influenza vaccination [facility] Start: 07-03-2022 Blood chemistry [facility] Start: 07-03-2022 End: 07-03-2022 [facility] Start: 05-15-2022 PROSTATE CANCER SCREENING DISCUSSION PROSTATE CANCER SCREENING DISCUSSION [facility] Start: 05-15-2022 Prostate specific antigen measurement Prostate Cancer Screening Discussion [facility] Start: 11-10-2021 Patient referral [facility] Work Phone: Start: 10-23-2021 Hepatitis B surface antibody level LDL CHOLESTEROL [facility] Start: 10-23-2021 Influenza vaccination INFLUENZA (#1) [facility] Start: 10-21-2021 Patient referral [facility] Work Phone: Start: 08-29-2021 [facility] Work Phone: Start: 08-29-2021 Patient referral [facility] Work Phone: Start: 10-23-2020 Influenza vaccination INFLUENZA (#1) [facility] Start: 05-15-2017 SHINGRIX VACCINE (1 of 2) SHINGRIX VACCINE (1 of 2) [facility] Start: 04-02-2016 Urine microalbumin profile DTaP,Tdap,Td Vaccine (1 - Tdap) [facility] Start: 05-15-2012 COLOGUARD (FIT-DNA) COLOGUARD (FIT-DNA) [facility] Start: 05-15-2012 Colonoscopy COLONOSCOPY [facility] Start: 05-15-2012 COLORECTAL CANCER SCREENING COLORECTAL CANCER SCREENING [facility] Start: 05-15-[address] COLONOGRAPHY [facility] Start: 05-15-2012 FECAL OCCULT BLOOD FECAL OCCULT BLOOD [facility] Start: 05-15-2012 Prostate specific antigen measurement Prostate Cancer Screening Discussion [facility] Start: 05-15-2012 Screening for malignant neoplasm of colon [facility] Start: 05-15-2012 SIGMOIDOSCOPY SIGMOIDOSCOPY [facility] Start: 05-15-1986 Hepatitis B Vaccine (1 of 3 - 19+ 3-dose series) Hepatitis B Vaccine (1 of 3 - 19+ 3-dose series) [facility] Start: 05-15-1986 Pneumococcal Vaccine: 50+ (1 of 2 - PCV) Pneumococcal Vaccine: 50+ (1 of 2 - PCV) [facility] Start: 05-15-1986 Urine microalbumin profile [facility] Start: 05-15-1985 ANNUAL PCP TEAM CHRONIC DISEASE VISIT ANNUAL PCP TEAM CHRONIC DISEASE VISIT [facility] Start: 05-15-1985 BP CONTROLLED (<130/80) BP CONTROLLED (<130/80) [facility] Start: 05-15-1985 HEPATITIS C SCREENING HEPATITIS C SCREENING [facility] Start: 05-15-1985 Hepatitis C screening Hepatitis C Screening [facility] Start: 05-15-1985 HIV SCREENING HIV SCREENING [facility] Start: 05-15-1985 HIV screening HIV Screening [facility] Start: 05-15-1973 PNEUMOCOCCAL (1 - PCV) PNEUMOCOCCAL (1 - PCV) [facility] Start: 05-15-1973 Pneumococcal vaccination [facility] Start: 05-15-1972 COVID-19 VACCINE (1) COVID-19 VACCINE (1) [facility] Start: 1965 COVID-19 VACCINE (#1) COVID-19 VACCINE (#1) [facility] Start: 1965 HEPATITIS B (1 of 3 - 3-dose series) HEPATITIS B (1 of 3 - 3-dose series) [facility] Start: 1965 Hepatitis B Vaccine (1 of 3 - 3-dose series) Hepatitis B Vaccine (1 of 3 - 3-dose series) [facility] Albumin [Moles/volum e] in Serum or Plasma [facility] Albumin/Globulin ratio [facility] Blood chemistry [facility] Work Phone: CT Abdomen and Pelvi s W contrast IV [facility] Work Phone: CT Chest [facility] Work Phone: End: 09-03-2022 ECG COMPLETE ECG COMPLETE ECG Routine Precordial pain 1 Occurrences starting 09/03/2021 until 09/03/2022 [facility] Work Phone: Comment on above: 1 Occurrences starting 09/03/2021 until 09/03/2022 Electrophoresis: [id number] [facility] Electrophoresis: yamini ma globulin [facility] Globulin measurement [facility] Hematocrit [Volume Fraction] of Blood [facility] End: 06-06-2025 HOLTER MONITOR 48 HOUR HOLTER MONITOR 48 HOUR ECG Routine Palpitations 1 Occurrences starting 06/06/2024 until 06/06/2025 [facility] Work Phone: Comment on above: 1 Occurrences starting 06/06/2024 until 06/06/2025 End: 06-06-2024 HOLTER MONITOR 48 HOUR HOLTER MONITOR 48 HOUR ECG Routine Palpitations 1 Occurrences starting 06/06/2024 until 06/06/2024 [facility] Work Phone: Comment on above: 1 Occurrences starting 06/06/2024 until 06/06/2024 IgA [Mass/volume] in Serum or Plasma [facility] IgG [Mass/volume] in Serum or Plasma [facility] IgM [Mass/volume] in Serum or Plasma [facility] Inhalation challenge test report Document --W methacholine inhaled [facility] Work Phone: Aquasco/lambda light chain ratio [facility] Laboratory data interpretation [facility] Lambda light chains.free [Mass/volume] in Serum or Plasma [facility] Measurement of respiratory function [facility] Work Phone: MR Lumbar spine [facility] End: 10-03-2022 NM CARDIAC PERF STRESS/PHARM NM CARDIAC PERF STRESS/PHARM Radiology Routine Precordial pain Coronary artery disease involving [place] coronary artery of [place] heart without angina pectoris Hx of CABG SHAH (dyspnea on exertion) 1 Occurrences starting 09/03/2021 until 10/03/2022 [facility] Work Phone: Comment on above: 1 Occurrences starting 09/03/2021 until 10/03/2022 End: 07-06-2025 NM Heart Perfusion W stress and W radionuclide IV NM CARDIAC PERF STRESS/PHARM Radiology Routine Coronary artery disease involving [place] coronary artery of [place] heart without angina pectoris SHAH (dyspnea on exertion) Hx of CABG 1 Occurrences starting 06/06/2024 until 07/06/2025 [facility] Comment on above: 1 Occurrences starting 06/06/2024 until 07/06/2025 Patient Education [facility] Work Phone: Patient referral [facility] Work Phone: Polysomnography [facility] Prostate specific antigen measurement [facility] Work Phone: Protein electrophoresis panel - Serum or Plasma [facility] End: 11-05-2021 RIGHT AND LEFT HEART CATHETERIZATION RIGHT AND LEFT HEART CATHETERIZATION BIC Routine One Time for 1 Occurrences starting 11/05/2021 until 11/05/2021 [facility] Work Phone: Comment on above: One Time for 1 Occurrences starting 10/23 until 11/05/2021 Serum testosterone measurement [facility] Testosterone Free [Mass/volume] in Serum or Plasma [facility] Testosterone measurement [facility] Troponin T.cardiac [Mass/volume] in Serum or Plasma by High sensitivity method [facility] Troponin T.cardiac [Mass/volume] in Serum or Plasma by High sensitivity method [facility] Urine immunofixation [facility] Urine kappa light chain measurement [facility] Vitamin B6 measurement [facility] End: 10-12-2025 XR Cervical spine AP and Lateral and oblique XR CERV OTHER 4V AP/LAT/OBL Radiology Routine Chronic pain of both knees CHANDANA positive 1 Occurrences starting 11/04/2023 until 12/03/2024 [facility] Comment on above: 1 Occurrences starting 11/04/2023 until 12/03/2024 XR Cervical spine AP and Lateral and oblique XR CERV OTHER 4V AP/LAT/OBL Radiology Routine Chronic pain of both knees CHANDANA positive 11/09/2023 4:28 PM EDT [facility] End: 12-03-2024 XR Foot - bilateral AP and Lateral and oblique XR FOOT GENERAL 3V AP/LAT/OBL BILATERAL Radiology Routine Chronic pain of both knees CHANDANA positive 1 Occurrences starting 11/04/2023 until 12/03/2024 [facility] Comment on above: 1 Occurrences starting 11/04/2023 until 12/03/2024 XR Foot - bilateral AP and Lateral and oblique XR FOOT GENERAL 3V AP/LAT/OBL BILATERAL Radiology Routine Chronic pain of both knees CHANDANA positive 11/09/2023 4:28 PM EDT [facility] End: 12-03-2024 XR Hand - bilateral PA and Lateral and Oblique XR HAND GENERAL 3V PA/LAT/OBL BILATERAL Radiology Routine Chronic pain of both knees CHANDANA positive Chronic bilateral low back pain without sciatica 1 Occurrences starting 11/04/2023 until 12/03/2024 [facility] Comment on above: 1 Occurrences starting 11/04/2023 until 12/03/2024 XR Hand - bilateral PA and Lateral and Oblique XR HAND GENERAL 3V PA/LAT/OBL BILATERAL Radiology Routine Chronic pain of both knees CHANDANA positive Chronic bilateral low back pain without sciatica 11/09/2023 4:28 PM EDT [facility] End: 08-25-2024 XR Knee - bilateral 4 Views XR KNEE GENERAL 4V AP BOTH/PA BOTH/LAT/MERC BILATERAL Radiology Routine Pain in both knees, unspecified chronicity 1 Occurrences starting 07/27/2023 until 08/25/2024 [facility] Work Phone: Comment on above: 1 Occurrences starting 07/27/2023 until 08/25/2024 XR Knee - bilateral 4 Views XR KNEE GENERAL 4V AP BOTH/PA BOTH/LAT/MERC BILATERAL Radiology Routine Pain in both knees, unspecified chronicity 08/09/2023 8:46 AM EDT [facility] Work Phone: End: 12-03-2024 XR Lumbar spine 3 Views XR LUMBAR GENERAL 3V AP/LAT/L5-S1 Radiology Routine Chronic pain of both knees CHANDANA positive 1 Occurrences starting 11/04/2023 until 12/03/2024 [facility] Comment on above: 1 Occurrences starting 11/04/2023 until 12/03/2024 XR Lumbar spine 3 Views XR LUMBAR GENERAL 3V AP/LAT/L5-S1 Radiology Routine Chronic pain of both knees CHANDANA positive 11/09/2023 4:28 PM EDT [facility] Work Phone: End: 12-03-2024 XR Sacroiliac Joint Views XR SACROILIAC JOINTS 2V AP PELVIS/FERGUESON Radiology Routine Chronic pain of both knees CHANDANA positive 1 Occurrences starting 11/04/2023 until 12/03/2024 [facility] Comment on above: 1 Occurrences starting 11/04/2023 until 12/03/2024 XR Sacroiliac Joint Views XR SACROILIAC JOINTS 2V AP PELVIS/FERGUESON Radiology Routine Chronic pain of both knees CHANDANA positive 11/09/2023 4:28 PM EDT [facility] End: 12-03-2024 XR Thoracic spine AP and Lateral XR THORACIC LIMITED 2V AP/LAT Radiology Routine Chronic bilateral low back pain without sciatica 1 Occurrences starting 11/04/2023 until 12/03/2024 [facility] Comment on above: 1 Occurrences starting 11/04/2023 until 12/03/2024 XR Thoracic spine AP and Lateral XR THORACIC LIMITED 2V AP/LAT Radiology Routine Chronic bilateral low back pain without sciatica 11/09/2023 4:28 PM EDT [facility] Immunizations Immunization Date Immunization Notes Care Provider Kim jefferson 04-01-2016 tetanus and diphther ia toxoids, adsorbed, preservative free, for adult use (2 Lf of tetanus toxoid and 2 Lf of diphtheria toxoid) Dr. Quang Hanson Work Phone: [facility] Payers Date Payer Category Payer Self-pay [id number] 2024 Blue [employer] Blue Shield BLUE CARD PPO OOS [id number] 2024 Unknown [id number] 2021 Private Health Insurance [id number] 2021 Private Health Insurance [id number] 2020 Miscellaneous or Other [employer] [id number] 2018 Unknown KASSI ARCHIBALD ACCE SS PPO [id number] 2018-Present [phone] [address] [place] [address] PPO [id number] 2018 Unknown [id number] 2016 Unknown [id number] Unknown [facility] . [id number] .2.462 Unknown [id number] [id number] .2.462 Unknown [id number] 2.16.840.1.430733.3.579 .2.462 Unknown [id number] 2.16.840.1.377559.3.579 .2.462 Unknown [id number] 2.16.840.1.162421.3.579 .2.462 Unknown [id number] 2.16.840.1.095938.3.579 .2.462 Unknown [id number] 2.16.840.1.615767.3.579 .2.462 Unknown [id number] 2.16.840.1.298875.3.579 .2.462 Unknown [id number] 2.16.840.1.469761.3.579 .2.462 Unknown [id number] 2.16.840.1.902372.3.579 .2.462 Unknown [id number] 2.16.840.1.585839.3.579 .2.462 Unknown [id number] 2.16.840.1.645949.3.579 .2.462 Unknown [id number] 2.16.840.1.964896.3.579 .2.462 Unknown [id number] 2.16.840.1.713291.3.579 .2.462 Unknown [id number] 2.16.840.1.511012.3.579 .2.462 Unknown [id number] [id number] .2.462 Social History Date Type Detail Facility Start: 04-24-2015 End: 06-06-2024 Tobacco smoking status NHIS Smokes tobacco daily [facility] Work Phone: History of tobacco use Cigarette Smoker [facility] Work Phone: Start: 04-24-2015 End: 02-23-2023 Cigarettes smoked current (pack per day) - Reported 0.5 [facility] Start: 04-24-2015 End: 06-06-2024 Tobacco use and exposure Smokeless tobacco non-user [facility] Work Phone: Start: 11-05-2020 End: 04-23-2021 Alcohol intake Not Asked [facility] Start: 1965 Sex Assigned At Not on file [facility] Start: 10-06-2020 End: 11-05-2021 Exposure to SARS-CoV-2 (event) Not sure [facility] Start: 08-29-2021 End: 08-25-2022 Tobacco smoking status NHIS Unknown if ever smoked [facility] Start: 01-03-2020 Heavy [place] [facility] Start: 09-12-2020 Cigarettes;Vapor [facility] Start: 1965 Sex Assigned At Male [facility] Start: 10-16-2021 End: 02-23-2023 Tobacco use panel [facility] Start: 01-24-2012 National Score (1-10 0), lower number is lower risk 57 [facility] Start: 02-23-2023 End: 06-06-2024 Alcohol intake Ex-drinker (finding) [facility] Start: 02-23-2023 Alcohol Comment occ [facility] Start: 11-05-2020 Tobacco Comment smokes a coup le a day [facility] Start: 05-22-2024 End: 05-26-2024 Sex Male (finding) [facility] Goals Date Patient Goal Desired Activity /State Personal health goal Functional Status Date Assessment Result Facility 06-13-2024 Are you deaf, or do you have serious difficulty hearing No 06/13/2024 11:38 AM Artem Browne RN No [facility] 06-13-2024 Are you blind, or do you have serious difficulty seeing, even when wearing glasses No 06/13/2024 11:38 AM Artem Browne RN No [facility] 06-13-2024 Do you have serious difficulty walking or climbing stairs Yes 06/13/2024 11:38 AM Artem Browne RN Yes [facility] 06-13-2024 Do you have difficul ty dressing or bathing No 06/13/2024 11:38 AM Artem Browne RN No [facility] 06-13-2024 Because of a physica l, mental, or emotional condition, do you have difficulty doing errands alone such as visiting a physician's office or shopping No 06/13/2024 11:38 AM Artem Browne RN No [facility] 05-26-2024 Functional status [facility] Work Phone: 10-29-2020 Are you deaf, or do you have serious difficulty hearing No 10/29/2020 12:45 PM Cammy Alcocer RN No [facility] 10-29-2020 Are you blind, or do you have serious difficulty seeing, even when wearing glasses No 10/29/2020 12:45 PM Cammy Alcocer RN No [facility] 10-29-2020 Do you have serious difficulty walking or climbing stairs No 10/29/2020 12:45 PM Cammy Alcocer RN No [facility] 10-29-2020 Do you have difficul ty dressing or bathing No 10/29/2020 12:45 PM Cammy Alcocer RN No [facility] 10-29-2020 Because of a physica l, mental, or emotional condition, do you have difficulty doing errands alone such as visiting a physician's office or shopping No 10/29/2020 12:45 PM Cammy Alcocer RN No [facility] Mental Status Date Assessment Result Facility 06-13-2024 Because of a physica l, mental, or emotional condition, do you have serious difficulty concentrating, remembering, or making decisions No 06/13/2024 11:38 AM Artem Browne RN No [facility] 05-26-2024 Cognitive function Voice/Name [facility] Work Phone: 05-25-2024 Cognitive function Awake;Alert;A ppropriate;Fol lows Commands [facility] Work Phone: 07-03-2022 Cognitive function Level Of Cons ciousness Awake;Alert;Appropriate [facility] Work Phone: 08-29-2021 Cognitive function Voice/Name [facility] Work Phone: 10-29-2020 Because of a physica l, mental, or emotional condition, do you have serious difficulty concentrating, remembering, or making decisions No 10/29/2020 12:45 PM EDT Cammy Apodaca RN No [facility] Clinical Notes 11-22-2020 to 10-10-2024 Telephone Encounter - Kelton Hood LPN - 10/10/2024 1:28 PM EDTTelephone Encounter - Kelton Hood LPN - 10/10/2024 1:28 PM EDT Note Date & Type Note Facility 10-10-2024 Telephone encount er Note TC to Pt. Spouse answered and stated they will call in and schedule new Pt appt. Gave spouse sleep scheduling #. Kelton Hood LPN [facility] 10-10-2024 Miscellaneous Notes Formattin g of this note might be different from the original. TC to Pt. Spouse answered and stated they will call in and schedule new Pt appt. Gave spouse sleep scheduling #. Kelton Hood LPN documented in this encounter [facility] 07-12-2024 Note HNO ID: [id number] Author: CELIA SANDERS, PT Service: ? Author [...] treatment included: Neuromuscular re-education, Manual therapy, and Self-fci management. Goals for Episode of Care: established [...] remembering education provided today. PROMIS Scales 07/06/2024 06/20/202411/0211/03/2023 Higher is Better Phys Func - T [...] must use r (more content not included)... [facility] 07-05-2024 Evaluation note Diagnosis Onset Date Resolution Anxiety acute July 05, 2024 8:12am Disequilibrium acute July 05, 2024 8:12am Neck pain acute July 05, 2024 8:12am Paresthesias acute July 05 8:12am Vitamin d deficiency acute July 05, 2024 8:12am Chronic fatigue chronic July 05, 2024 8:12am Depression chronic July 05, 2024 8:12am Peripheral vestibulopathy resolved July 05, 2024 8:12am Vertigo resolved July 05, 2024 8:12am Fatigue noneactive August 03 8:29am Anxiety acute August 29, 2024 2:49pm Disequilibrium acute August 29, 2024 2:49pm Low back pain acute August 29, 2:49pm Right lumbar radiculopathy acute August 29, 2024 2:49pm Vitamin d deficiency acute August 29, 2024 2:49pm Chronic fatigue chronic August 29, 2024 2:49pm Depression chronic August 29, 2024 2:49pm Peripheral vestibulopathy resolved August 29, 2024 2:49pm Vertigo resolved August 29, 2024 2:49pm [facility] Work Phone: [phone]) 468-665605-12-2025 NoteHNO ID: [id number] Author: CELIA SANDERS, PT Service: ? 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 [employer] Occupation: [employer] Intake Information: Prescription present [...] by Symptoms: Dizziness awakens (more content not included)...[facility]05-12-2025 History of Present illness Narrative* Celia Sanders, PT - 07/03/2024 7:58 AM EDT Images from the original note [...] Planned: 6 Planned Treatment Interventions: Gait Training (95775), Self-fci management (27731), Therapeutic activities (71825), Manual therapy (09384), Neuromuscular re-education (04958), Therapeutic exercise (56332) PLAN FOR NEXT VISIT: FGA and assess [...] his BP medication and this improved vertigo symptoms.Pt. continues to have vertigo symptom, stating today is a bad day for me. Pt. is seeing OT for cognitive decline. Pt. reports hes had vertigo symptoms for 20 years off and on, and the episodes seemto last longer. Describes the symptoms as feeling [...] looking up and down on a screen. Pt.mentions at end of visit that he wonders if it is mental. 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 [employer] Occupation: [employer] Intake Information: Prescription present [...] Testing Right Bere-Hallpike: Asymptomatic, No nystagmus Left Bere-Hallpike: Asymptomatic, No nystagmus Right Ear Down: Asymptomatic, [...] Demonstration TREATMENT: PT Treatment Interventions: Therapeutic Exercise, Self-Retirement Management Evaluation Self-Retirement Management: 1: discussed the anatomy of the [...] Time (minutes): 48 Session Start Time : 0752 Session Stop Time : 0840 Celia Sanders, PT [facility] NoteHNO ID: [id number] Author: CLARITZA VARGAS OTR/L Service: ? Author Type: Occupational Therapist Type: Progress Notes Filed: 06/21/2024 16:21 Note Text: Summary: OT evaluation Episode Visit Count: 1 Therapist That Will Accept/Oversee The Plan Of Care: Claritza Vargas Start of Care Date: 06/21/24 Onset Date: 06/22/23 Patient Identified by Name and Date of : Yes [facility] OCCUPATIONAL THERAPY [...] Planned: 3 Planned Treatment Interventions: Therapeutic exercise (06250), Therapeutic activities (41993), Manual therapy (14083), Neuromuscular re-education (97347), Self-fci management (26776), Cognitive skills training (03175,80214) PLAN FOR NEXT VISIT:IADL assessment for executive [...] to get further cognitive assessment completed by SENIOR RESEARCH MANAGER at [facility]. 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 Episode Visit Count: 1 Therapist That Will Accept/Oversee The Plan Of Care: Claritza Vargas Start of Care Date: 06/21/24 Onset Date: 06/22/23 Patient Identified by Name and Date of : Yes [facility] OCCUPATIONAL THERAPY [...] Planned: 3 Planned Treatment Interventions: Therapeutic exercise (72643), Therapeutic activities (11595), Manual therapy (56484), Neuromuscular re-education (30896), Self-fci management (03857), Cognitiveskills training (99435,83035) PLAN FOR NEXT VISIT:IADL assessment for executive [...] worsening vertigo symptoms for over a month; spousereports difficulty remembering, concentrating, increased forgetfulness; In agreement to get furthercognitive assessment completed by SENIOR RESEARCH MANAGER at [facility]. 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 Jess Rosas [phone] Additional Information: Patient is being discharged home today with orders for outpatient therapy. Will have transport. SIGNATURE: Amy Prather RN PATIENT NAME: Hayden Pendleton DATE: June 13, 2024 TIME: 12:12 [facility]04-21-2025 NoteHNO ID: [id number] Author: AV CORONADO DO Service: Hospital Medicine Author Type: Physician Type: Progress Notes Filed: 06/12/2024 17:07 Note Text: DEPARTMENT OF HOSPITAL MEDICINE PROGRESS NOTE SERVICE DATE: 06/12/2024 SERVICE TIME: 5:05 PM Hospital Medicine/Primary Attending: Av Coronado DO NIGHT AND WEEKEND COVERAGE: [place] COVERAGE: After 7pm, please call cross cover pager #[phone] Subjective INTERVAL HPI: 59 y/o male with PMHx of CAD, arthritis, HTN, HLD who presented for evaluation of progressive lethargy, weakness, dizziness and disequilibrium. Patient underwent negative non contrast MRI at [facility] to rule out stroke. He was [...] June 12, 2024 TIME: 5:05 PM etx [id number] Medical Center04-21-2025 NoteHNO ID: [id number] Author: ARTEM HUGGINS RN Service: ? Author Type: Registered Nurse Type: Progress Notes Filed: 06/12/2024 13:01 Note Text: Patient back on unit from procedure.[facility]04-21-2025 Note HNO ID: [id number] Author: AMY PRATHER RN Service: Care Management Author Type: Registered Nurse Type: Care Mgt Progress Note Filed: 06/12/2024 12:53 Note Text: CARE MANAGEMENT PROGRESS NOTE SERVICE DATE: 06/12/2024 SERVICE TIME: 1252 LOS: 3 days Patient off floor for LP. Will revisit for IA. SIGNATURE: Amy Prather RN PATIENT NAME: Hayden Pendleton DATE: June 12, 2024 TIME: 12:52 [facility]04-21-2025 NoteHNO ID: [id number] Author: ARTEM HUGGINS RN Service: ? Author Type: Registered Nurse Type: Progress Notes Filed: 06/12/2024 11:15 Note Text: Patient off unit for a procedureMainegeneral Medical Center04-20-2025 NoteHNO ID: [id number] Author: AV CORONADO DO Service: Hospital Medicine Author Type: Physician Type: Progress Notes Filed: 06/11/2024 12:39 Note Text: DEPARTMENT OF HOSPITAL MEDICINE PROGRESS NOTE SERVICE DATE: 06/11/2024 SERVICE TIME: 12:37 PM Hospital Medicine/Primary Attending: Av Coronado DO NIGHT AND WEEKEND COVERAGE: [place] COVERAGE: After 7pm, please call cross cover pager #[phone] Subjective INTERVAL HPI: 59 y/o male with PMHx of CAD, arthritis, HTN, HLD who presented for evaluation of progressive lethargy, weakness, dizziness and disequilibrium. Patient underwent negative non contrast MRI at [facility] to rule out stroke. He was [...] tab(s) 81 mg ORAL DAILY Given, 06/11 0929 06/09/24 1847 -- VTE Prophylaxis: VTE prophylaxis appropriate Disposition: Home Plan of care discussed with: Provider, RN, Patient SIGNATURE: Av Coronado DO PATIENT NAME: Hayden BILL: June 11, 2024 TIME: 12:37 PM etx [id number] Medical Center04-19-2025 NoteHNO ID: [id number] Author: AV CORONADO DO Service: Hospital Medicine Author Type: Physician Type: Progress Notes Filed: 06/10/2024 18:18 Note Text: DEPARTMENT OF HOSPITAL MEDICINE PROGRESS NOTE SERVICE DATE: 06/10/2024 SERVICE TIME: 6:10 PM Hospital Medicine/Primary Attending: Av Coronado DO NIGHT AND WEEKEND COVERAGE: [place] COVERAGE: After 7pm, please call cross cover pager #[phone] Subjective INTERVAL HPI: 59 y/o male with PMHx of CAD, arthritis, HTN, HLD who presented for evaluation of progressive lethargy, weakness, dizziness and disequilibrium. Patient underwent negative non contrast MRI at [facility] to rule out stroke. He was [...] tab(s) 81 mg ORAL DAILY Given, 06/10 0818 06/09/24 1847 -- VTE Prophylaxis: VTE prophylaxis appropriate Disposition: Home Plan of care discussed with: Provider, RN, Patient SIGNATURE: Av Coronado DO PATIENT NAME: Hayden Pendleton DATE: June 10, 2024 TIME: 6:10 PM etx [id number] Medical Center04-19-2025 NoteHNO ID: [id number] Author: PETR GRIMALDO APRN.CNP Service: Neurology General Author Type: Nurse Practitioner Type: Plan of Care Filed: 06/10/2024 12:04 Note Text: Chart reviewed. MRI brain, LP, and labs all pending. Will follow up as workup is available. Please call with questions. Petr Grimaldo CNP Neurology/Neurocritical Care [place] [facility] 10[facility]04[facility] VavfAWMA-CNI-4 (AGENT OF COVID-19) RNA: Not detected INFLUENZA A RNA: Not detected INFLUENZA B RNA: Not detected RESPIRATORY SYNCYTIAL VIRUS (RSV) RNA: Not detectedMainegeneral Medical CenterComment on above:Performed By: #### [id number] ####[facility] LABORATORYCLIA [id number] [address] OF [id number] Instructions* Patient Education - Heather Dubois RN - 06/06/2024 3:40 PM EDT Patient educated on 48 hour holter monitor, and verbalizes understanding. [facility]04-15-2025 Miscellaneous Notes* Patient Education - Heather Dubois RN - 06/06/2024 3:40 PM EDT Patient educated on 48 hour holter monitor, and verbalizes understanding. documented in this encounterGeorgetown Behavioral Hospital04-15-2025 NoteHNO ID: [id number] Author: HEATHER DUBOIS RN Service: ? Author Type: Registered Nurse Type: Patient Education Filed: 06/06/2024 16:11 Note Text: Patient educated on 48 hour holter monitor, and verbalizes understanding.[facility]04-15-2025 NoteHNO ID: [id number] Author: FELICITAS CHAVEZ MD Service: ? Author [...] he had an exercise stress echo at [facility] and was referred here to see a boat driver after that. I do not have any records from his PCPs office. 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 He underwent four-vessel CABG on 10/25/[address] Alonso. Postop course was uneventful. He has been enrolled in cardiac rehab at [facility]. I received notification from them that [...] evaluation. He said he went to the [facility] ER on Wednesday. He said they did EKG and blood work and sent him home to follow-up with a boat driver. 10/15/2021: Patient was started on Imdur at [...] breath gets worse. He recently saw a observer gravity prospecting who did a lung cancer screening CAT scan. Additionally he also had PFTs done recently and is due to see the observer gravity prospecting in follow-up next week. 02/23/2023: Patient denies [...] He experiences severe fat (more content not included)...[facility]04-15-2025 History of Present illness Narrative* Felicitas Chavez MD - 06/06/2024 3:12 PM EDT Chief Complaint: Patient presents with: Cardiology Follow [...] he had an exercise stress echo at [facility] and was referred here to see a boat driver after that. I do not have any records from his PCPs office. 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 He underwent four-vessel CABG on 10/25/[address] Alonso. Postopcourse was uneventful. He has been enrolled in cardiac rehab at [facility]. I received notification from them that [...] evaluation. He said he went to the [facility] ER on Wednesday. He said they did EKG and blood work and sent him home to follow-up with a boat driver. 10/15/2021: Patient was started on Imdur at [...] breath gets worse. He recently saw a observer gravity prospecting who did a lung cancer screening CAT scan. Additionally he also had PFTs done recently andis due to see the observer gravity prospecting in follow-up next week. 02/23/2023: Patient denies any chest pain shortness of breath palpitations lightheadedness syncope orthopnea PND or leg edema. He continues to have some mild discomfort in the right parasternal region.This has been worked up in the past with normal stress test and heart catheterization showing patent grafts. He gets tired during the daytime easily. 06/06/2024: The patient is a 59-year-old male with a history of CAD, status post- CABG, presenting with constant vertigo and dyspnea. The [...] driven due to these symptoms. He was evaluatedby an ENT specialist, who performed the Hansel maneuver multiple times without improvement. He was also seen in the ED, where CT and MRI were normal. He was discharged with meclizine and a scopolaminepatch, both of which have been ineffective. He [...] 5 mg, which was recently increased without improvementin symptoms. PAST MEDICAL HISTORY Diagnosis Date CAD [...] bpm. Normal EKG Echocardiogram May 2024 at [facility]: EF 60%. 02/25/2021: EF 60%. 10/23/2020: EF [...] circumflex 70%. OM2 99% moderate disease. RCA GIVER. Good collaterals from LAD and septals filling PDA and RPL retrogradely. CABG 10/25/2020: WELLS to LAD, SVG to diagonal, OM1 and PDA of RCA ASSESSMENT/PLAN: 1. Hyperlipidemia, unspecified hyperlipidemia type (E78.5) Dyslipidemia (E78.5) LDL cholesterol level done earlier this month at [facility] is elevated at 160 mg/dL. Previously on Zetia, but medication was discontinued unclear why. - Restarted Zetia 10 mg once daily. Continue statins in the current dose. - Discussed potential addition of Repatha if LDL does not decrease to target level of 70 mg/dL. Will start once vertigo symptoms improve. - Ordered a 3-month supply of Zetia. 2. Coronary artery disease involving [place] coronary artery of [place] heart without angina pectoris(I25.10) Hx of CABG (Z95.1) Patient has a history of quadruple bypass surgery. Recent echocardiogram on May 26 shows normal ejection fraction of 60%. Denies any anginal symptoms. He is to continue aspirin beta-blockers and statins. I have added Zetia. Will start PCSK9 inhibitors once patient recovers from his current vertigo issues. - Ordered a chemical stress test to be performed at [facility]. 3. SHAH (dyspnea on exertion) (R06.09) Shortness of breath noted, particularly with increased activity. Recent EKG showed PVCs. Echocardiogram done at [facility] recently showed normal heart function. - Ordered [...] Continue beta blockers. TSH done recently at [facility] was normal. The patient consented to the use of [employer] software for draft documentation of the visit consistent with [facility] s Notice of Privacy Practices. Felicitas Chavez MD documented in this encounterGeorgetown Behavioral Hospital04-04-2025 Discharge summary Author Marcos Lovelace [facility] Note Date/Time May 26, 2024 1:49 pm [facility] Medical Records Department [address] [place] [address] Instructions for Home/Discharge Instructions 05/26/24 1342 MR#: [id number] Acct: [id number] Name: HAYDEN PENDLETON Rep #:[id number] : 1965 59 From: Marcos seo DO [...] Marcos Lovelace Primary Care Provider: Jess Rosas [facility] Consulting Providers: Nilo Hill; Radha Leyva; Mariana Stiles; Jie Palacio; Ashanti Leslie; Christiano Garcia; Mary Walls; Washington Masters; Abhay Sin; Иван Rutledge; Renee Beck; Tigre Masterosn; Hanna Hammond; Bonnie Vicente; Lonivivek Man; Alvin Ward; Ozzie Gibbs; Sabas Piedra; Kaylan [...] BID Referrals / Follow Up: Jess Rosas [facility], WORSHIP LEADER-C [Primary Care Provider] - Disposition Disposition (needs filled in before D/C Order can be placed): Home, Self Care 05/26/24 1350<Electronically signed by Marcos Lovelace DO>Marcos Lovelace DO CC: Jie Palacio; Hanna Hammond; WORSHIP LEADER-C Jess Rosas; Alvin Ward; Ashanti Leslie MD; Mariana Stiles MD; Nilo Hill MD; Dr. Radha Leyva MD; Dr. Christiano Garcia MD; Dr. Mary Walls MD; Dr. Abhay Sin MD; Dr. Washington Masters MD; Dr. Иван Rutledge MD; Dr. Tgire Masterson DO; Dr. Benja Ivey MD; Dr. Bonnie Vicente MD; Dr. Joi Woodson MD; Dr. Ozzie Gibbs MD; Dr. Sabas Piedra MD; Dr. Kaylan Paulino MD; Renee Beck DO; Ravi Fonseca MD ~ Signed [facility] Work Phone: 1(511) 701-935404-04-2025 Discharge summary Author Marcos [facility] Note Date/Time May 26, 2024 1:49 pm [facility] Medical Records Department [address] [place] [address] Discharge Summary 05/26/24 1342 MR#: [id number] Acct: [id number] Name: HAYDEN PENDLETON Rep #:[id number] : 1965 59 From: Marcos seo DO PCP: SEBASTIÁN Pathak Status:ADM DAJA Location: [place] [address] Providers Date of Admission: 05/25/24 Date of [...] mg PO BID PRN fever or pain 10/01/21 aspirin 81 mg tablet,delayed release (Adult Low [...] is a 59-year-old male who presented to [facility] ED on 05/25/2024 with persistent vertigo. Short [...] 45.5 L, Lymph % (Auto) 42.0 H, [place] % (Auto) 6.0, Eos % (Auto) 4.9, [...] chronic microvascular ischemic changes. Reading Location: [facility] Instructions DC O2, CPAP, BIPAP Needs Home [...] Marcos Lovelace Primary Care Provider: Jess Rosas [facility] Consulting Providers: Nilo Hill; Radha Leyva; Mariana [...] BID Referrals / Follow Up: Jess Rosas, WORSHIP LEADER-C [Primary Care Provider] - Disposition Disposition (needs filled in before D/C Order can be placed): Home, Self Care Charges/Coding Visit Charges Inpatient E&M: 85360 Disch Hosp >30min 05/26/24 1540 <Electronically signed by Marcos Lovelace DO> Cosigner Signature (if applicable): CC: SEBASTIÁN Roass; Dr. Marcos Lovelace DO~ Signed [facility] Work Phone: 1(986) 433-619004-04-2025 Discharge summary [facility] Medical Records Department [address] [place] [address] Instructions for Home/Discharge Instructions 05/26/24 1342 MR#: [id number] Acct: [id number] Name: HAYDEN PENDLETON Rep #:[id number] : 1965 59 From: Marcos seo DO [...] Referrals / Follow Up: Jess Rosas [facility], WORSHIP LEADER-C [Primary Care Provider] - Disposition Disposition (needs filled in before D/C Order can be placed): Home, Self Care 05/26/24 1350Alexand Radu HAYNES CC: Jie Palacio; Hanna Hammond; WORSHIP LEADER-C Jess Rosas; Alvin Ward; Ashanti Leslie MD; [...] Beck DO; Ravi Fonseca MD ~ Signed [facility]04-04-2025 Discharge summary [facility] Medical Records Department [address] [place] [address] Discharge Summary 05/26/24 1342 MR#: [id number] Acct: [id number] Name: HAYDEN PENDLETON Rep #:[id number] : 1965 59 From: Marcos seo DO PCP: SEBASTIÁN Pathak Status:ADM DAJA Location: [place] [address] Providers Date of Admission: 05/25/24 Date of [...] is a 59-year-old male who presented to [facility] ED on 05/25/2024 with persistent vertigo. Short [...] 45.5 L, Lymph % (Auto) 42.0 H, [place] % (Auto) 6.0, Eos % (Auto) 4.9, [...] Minimal chronic microvascular ischemic changes. [facility] Instructions DC O2, CPAP, BIPAP Needs [...] Marcos Lovelace Primary Care Provider: Jess Rosas [facility] Consulting Providers: Nilo Hill; Rahda Leyva; Mariana Stiles; Jie Palacio; Ashanti Leslie; [...] Referrals / Follow Up: Jess Rosas [facility], WORSHIP LEADER-C [Primary Care Provider] - Disposition Disposition (needs filled in before D/C Order can be placed): Home, Self Care Charges/Coding Visit Charges Inpatient E&M: 95773 Disch Hosp >30min 05/26/24 1540 Cosigner Signature (if applicable): CC: SEBASTIÁN Rosas; Dr. Marcos Lovelace, DO~ Signed [facility]04-04-2025 [facility] Medical Records Department [address] [place] [address] Discharge Summary 05/26/24 1342 MR#: [id number] Acct: [id number] Name: HAYDEN PENDLETON Rep #: [id number] : 1965 59 From: Marcos Radu HAYNES PCP: SEBASTIÁN Pathak Status:ADM DAJA Location: [place] [address] Providers Date of Admission: 05/25/24 Date of [...] Low Dose Aspirin) 81 mg PO DAILY [facility] 11/22/20 isosorbide mononitrate 30 mg tablet,extended [...] is a 59-year-old male who presented to [facility] ED on 05/25/2024 with persistent vertigo. Short hospital course as noted below. Patient discharged home in stable condition on . Persistent vertigo, CVA ruled out ??? Neurology [...] BMI Weight Weight: 91 (more content not included)...[facility]04-03-2025 Progress note Author [facility] Note Date/Time May 25, 2024 8:05 pm [facility] Medical Records Department [address] [place] [address] Progress Note - Hospitalist 05/25/242004 MR#: [id number] Acct: [id number] Name: HAYDEN PENDLETON Rep #:[id number] : 1965 59 From: Ana Arellano MD PCP: SEBASTIÁN Pathak Status:ADM DAJA Location: [place] [address] Hospitalist Note MRI negative. 05/25/242004 <Electronically signed by Ana Arellano MD> Cosigner Signature (if applicable): CC: ~ Signed [facility] Work Phone: 1([phone]) 849-177004-03-2025 History and physical note Author Joi [facility] Note Date/Time May 25, 2024 7:08 pm [facility] Medical Records Department [address] [place] [address] H&P Exam - Hospitalist 05/25/24 1405 MR#: [id number] Acct: [id number] Name: HAYDEN PENDLETON Rep #:[id number] : 1965 59 From: Joi Woodson MD PCP: SEBASTIÁN Pathak Status:ADM DAJA Location: [place] [address] HPI - General General Date of Admission: [...] in the ED were Bp of 122/71, VA of 67, RR of 11 and oxygen sats of 97% onroom air. CBC showed Hb of 15.1, wbc of 7.4 and platelets of 304. INR was 0.9. Chemistry showed sodium of 140, potassium of 4.3 and bicarb of 25.4. Anion gap is 13. Initial troponin was 7. CTA head and neck showed plaque [id number] at theorigin of the right internal carotid artery causing <50% stenosis and atherosclerotic plaque formation at origin of the left internal carotid artery causing ~ 50% stenosis. He is being admitted to be managed for persistent vertigo to rule out a stroke. [facility] Medical History (Updated 05/25/24 @ 17:37 by [...] % (Auto) 51.3, Lymph % (Auto) 37.0, [place] % (Auto) 5.5, Eos % (Auto) 4.3, [...] artery causing approximately 50% stenosis. Reading Location: [facility] Assessment & Plan Assessment/Plan (1) Vertigo: PLAN: [...] elects to be full code. * Total cvbj-in-znge time 16 minutes. Charges/Coding Visit Charges Inpatient E&M: 81017 Init Hosp L2 Procedures Hospitalists Procedures: 53723 Advncd Care Plan 30 Min 05/25/24 1908 <Electronically signed by Joi Woodson MD> Cosigner Signature (if applicable): CC: WORSHIP LEADER-C Jess Rosas; Dr. Joi Woodson MD~ Signed [facility] Work Phone: 1(761) 756-462104-03-2025 Progress note [facility] Medical Records Department [address] [place] [address] Progress Note - Hospitalist 05/25/242004 MR#: [id number] Acct: [id number] Name: MAURYKELSYHAYDEN Christiano Rep #:[id number] : 1965 59 From: Ana Arellano MD PCP: SEBASTIÁN Pathak Status:ADM DAJA Location: [place] [address] Hospitalist Note MRI negative. 05/25/242004 Cosigner Signature (if applicable): CC: ~ Signed [facility]04-03-2025 Discharge summary Author Chucky Maya [facility] Note Date/Time May 25, 2024 5:38 pm [facility] Medical Records Department [address] [place] [address] Emergency Department Summary 05/25/24 MR#: [id number] Acct: [id number] Name: MAURYHAYDEN TIERNEY Christiano Rep #:[id number] : 1965 59 From: Chucky Landon PCP: SEBASTIÁN Pathak Status:ADM DAJA Location: [place] [address] HPI History of Present Illness Chief Complaint: [...] clinician: Hospitalist This note was generated with [employer] dictation software. It may contain incorrectwords, spelling, [...] % (Auto) 51.3 Lymph % (Auto) 37.0 [place] % (Auto) 5.5 Eos % (Auto) 4.3 [...] artery causing approximately 50% stenosis. Reading Location: [facility] Discharge Plan Dx/Rx/DC Orders Clinical Impression: Vertigo, CAD (coronary artery disease), Bilateral carotid artery disease Disposition Disposition: Acute Care Hospital [facility] Discharge Date/Time: 05/25/24 14:37 What to do if you have Problems For any increased pain, shortness of breath, bleeding, nausea or vomiting, chestpain, or any unexpected problems, contact your Primary Care Provider. Call [facility] ([phone]) or report to the closest Emergency Room. Call 911 if necessary. 05/25/24 5911 <Electronically signed by Chucky Landon> Cosigner Signature (if applicable): CC: SEBASTIÁN Rosas ~ Signed [facility] Work Phone: 1([phone]) 393-777804-03-2025 History and physical note [facility] Medical Records Department [address] [place] [address] H&P Exam - Hospitalist 05/25/24 1405 MR#: [id number] Acct: [id number] Name: HAYDEN PENDLETON Rep #:[id number] : 1965 59 From: Joi Woodson MD PCP: SEBASTIÁN Pathak Status:ADM DAJA Location: [place] [address] HPI - General General Date of Admission: [...] in the ED were Bp of 122/71, VA of 67, RR of 11 and oxygen sats of 97% onroom air. CBC showed Hb of 15.1, wbc of 7.4 and platelets of 304. INR was 0.9. Chemistry showed sodium of 140, potassium of 4.3 and bicarb of 25.4. Anion gap is 13. Initial troponin was 7. CTA head and neck showed plaque gywcabj3qm at theorigin of the right internal carotid artery causing <50% stenosis and atherosclerotic plaque formation at origin of the left internal carotid artery causing ~ 50% stenosis. He isbeing admitted to be managed for persistent vertigo to rule out a stroke. [facility] Medical History (Updated 05/25/24 @ 17:37 by [...] mg tablet 50 mg PO DAILY 05/25/24 04/0 05/16 History metoprolol tartrate 25 mg tablet 25 [...] % (Auto) 51.3, Lymph % (Auto) 37.0, [place] % (Auto) 5.5, Eos % (Auto) 4.3, [...] artery causing approximately 50% stenosis. Reading Location: [facility] Assessment & Plan Assessment/Plan (1) Vertigo: PLAN: [...] elects to be full code. * Total uvta-tf-kpdb time 16 minutes. Charges/Coding Visit Charges Inpatient E&M: 61085 Init Hosp L2 Procedures Hospitalists Procedures: 67981 Advncd Care Plan 30 Min 05/25/24 4449 Cosigner Signature (if applicable): CC: SEBASTIÁN Rosas; Dr. Joi Woodson MD~ Signed [facility]04-03-2025 Discharge summary [facility] Medical Records Department [address] [place] [address] Emergency Department Summary 05/25/24 MR#: [id number] Acct: [id number] Name: HAYDEN PENDLETON Rep #:[id number] : 1965 59 From: Chucky Landon PCP: Jess Rosas, WORSHIP LEADER-C Status:ADM DAJA Location: [place] [address] HPI History of Present Illness Chief Complaint: [...] clinician: Hospitalist This note was generated with [employer] dictation software. It may contain incorrectwords, spelling, [...] % (Auto) 51.3 Lymph % (Auto) 37.0 [place] % (Auto) 5.5 Eos % (Auto) 4.3 [...] artery causing approximately 50% stenosis. Reading Location: [facility] Discharge Plan Dx/Rx/DC Orders Clinical Impression: Vertigo, CAD (coronary artery disease), Bilateral carotid artery disease Disposition Disposition: Acute Care Hospital [facility] Discharge Date/Time: 05/25/24 14:37 What to do if you have Problems For any increased pain, shortness of breath, bleeding, nausea or vomiting, chestpain, or any unexpected problems, contact your Primary Care Provider. Call [facility] ([phone]) or report tothe closest Emergency Room. Call 911 if necessary. 05/25/24 4439 Cosigner Signature (if applicable): CC: SEBASTIÁN Rosas ~ Signed [facility]04-03-2025 Evaluation note* Diagnosis Onset Date Resolution Status Admit Date Vertigo resolved May 25 2:14pm [facility] Work Phone: [phone]) [phone] Evaluation note* Diagnosis Onset Date Resolution Status Admit Date Vertigo resolved May 25 2:14pm Anxiety acute July 05, 2024 8:12am Chronic fatigue chronic July 05, 2024 8:12am Depression chronic July 05, 2024 8:12am Gastroesophageal reflux disease [employer] patt July 05, 2024 8:12am Vertigo resolved July 05, 2024 8:12am [facility] Work Phone: [phone]) [phone] Evaluation note* Diagnosis Onset Date Resolution Status Admit Date Vertigo deleted May 25 2:14pm Anxiety acute July 05, 2024 8:12am Disequilibrium acute July 05, 2024 8:12am Neck pain acute July 05, 2024 8:12am Paresthesias acute July 05 8:12am Vitamin d deficiency acute July 05, 2024 8:12am Chronic fatigue chronic July 05, 2024 8:12am Depression chronic July 05, 2024 8:12am Peripheral vestibulopathy resolved July 05, 2024 8:12am Vertigo deleted July 05, 2024 8:12am [facility] Work Phone: [phone]) [phone] Evaluation note* Diagnosis Onset Date Resolution Status Admit Date Vertigo deleted May 25 2:14pm Anxiety acute July 05, 2024 8:12am Disequilibrium acute July 05, 2024 8:12am Neck pain acute July 05, 2024 8:12am Paresthesias acute July 05 8:12am Vitamin d deficiency acute July 05, 2024 8:12am Chronic fatigue chronic July 05, 2024 8:12am Depression chronic July 05, 2024 8:12am Peripheral vestibulopathy resolved July 05, 2024 8:12am Vertigo deleted July 05, 2024 8:12am Fatigue noneactive August 03 8:29am [facility] Work Phone: [phone]) 988-543804-03-2025 Evaluation note* Diagnosis Onset Date Resolution Status Admit Date Vertigo deleted May 25 2:14pm Anxiety acute July 05, 2024 8:12am Disequilibrium acute July 05, 2024 8:12am Neck pain acute July 05, 2024 8:12am Paresthesias acute July 05 8:12am Vitamin d deficiency acute July 05, 2024 8:12am Chronic fatigue chronic July 05, 2024 8:12am Depression chronic July 05, 2024 8:12am Peripheral vestibulopathy resolved July 05, 2024 8:12am Vertigo deleted July 05, 2024 8:12am Fatigue noneactive August 03 8:29am Low back pain acute August 29, 2 025 2:49pm Right lumbar radiculopathy acute August 29, 2024 2:49pm Chronic fatigue chronic August 29, 2024 2:49pm [place] [employer] Work Phone: 1(813) 542-915904-03-2025 Radiology Diagnostic study note [facility] Imaging Services [address] [place] [address] CTA Head AND Neck W/ Contrast MR#: [id number] Acct: [id number] Name: HAYDEN PENDLEOTN Rep #: [id number] : 1965 M 59 From: Rakan Trammell MD PCP: SEBASTIÁN Pathak Status: REG ER Study:CTA Head AND Neck W/ Contrast Date of E xam: 05/25/24 Exam# [id number] Ordering Dr: Chucky Maya DO ADDENDUM by Dr. Robinson Trammell MD on 05/25/24 at 1416 This is an addendum report. The unenhanced CT scan of the head is unremarkable. Reading Location: [facility] 05/25/24 1417 Date cc: SEBSATIÁN Rosas; Dr. Chucky Maya DO ~* Signed PROCEDURE: CTA HEAD AND [...] RIGHT Vertebral: Unremarkable. LEFT Vertebral: Unremarkable. Anatomy: [place] anatomy is normal. Aneurysm or [...] artery causing approximately 50% stenosis. Reading Location: [place] [address] CC: SEBASTIÁN Rosas; Dr. Chucky Maya, DO ~ Tablet Technician: Signed [facility]02-17-2025 Telephone encounter Note* Telephone Encounter - Ronda Tolentino MA - 04/10/2024 10:35 AM EST Patient's request for medication is as follows: Requested Prescriptions Pending Prescriptions Disp Refills metoprolol tartrate, short acting, (LOPRESSOR) 25 mg tablet [Pharmacy Med Name: Metoprolol [id number] MG Oral Tablet] 180 tablet 0 Sig: Take 1 tablet by mouth twice daily Patient was last seen on : 02/23/23 Next Scheduled on : 06/06/24 Prescription(s) as above. Please process accordingly. Ronda Tolentino MA [facility]02-17-2025 Miscellaneous Notes* Telephone Encounter - Ronda Tolentino MA - 04/10/2024 10:35 AM EST Patient's request for medication is as follows: Requested Prescriptions Pending Prescriptions Disp Refills metoprolol tartrate, short acting, (LOPRESSOR) 25 mg tablet [Pharmacy Med Name: Metoprolol Lqgmekaw82 MG Oral Tablet] 180 tablet 0 Sig: Take 1 tablet by mouth twice daily Patient was last seen on : 02/23/23 Next Scheduled on : 06/06/24 Prescription(s) as above. Please process accordingly. Ronda Tolentino MA documented in this [facility]01-29-2025 Telephone encounter Note * Telephone Encounter - [...] above. Please process accordingly. Cheri Logan MA [facility]01-29-2025 Miscellaneous Notes* Telephone Encounter - Cheri [...] accordingly. Cheri Logan MA documented in this [facility]Ge[facility]11-18-2024 Telephone encounter Note * Telephone Encounter [...] above. Please process accordingly. Damaris Latham RN [facility]11-18-2024 Miscellaneous Notes* Telephone Encounter - Damaris [...] accordingly. Damaris Latham RN documented in this [facility]Ge[facility]11-15-2024 Telephone encounter Note * Telephone Encounter - Maira Pope - 01/07/2024 7:27 AM EST Scheduled patient with Dr. Chavez for 06-06-24 at 3 pm in [place]. Sent [employer] message and letter to home address. Thanks Maira Pope [facility]11-15-2024 Telephone encounter Note* Telephone Encounter - Celia Smallwood LPN - 01/07/2024 7:13 AM EST Last seen 02/23/2023. Please call patient with annual appointment. Thank you! Celia Smallwood LPN [facility]11-15-2024 Telephone encounter Note* Telephone Encounter - [...] above. Please process accordingly. Celia Smallwood LPN [facility]11-15-2024 Miscellaneous Notes* Telephone Encounter - Celia [...] accordingly. Celia Smallwood LPN documented in this encounterGeorgetown [facility] Hospital09-30-2024 NoteHNO ID: [id number] Author: CIERA PALM MD Service: ? Author Type: Physician Type: Progress Notes Filed: 11/22/2023 16:59 Note Text: Rheumatology Outpatient Clinic Date of Service: 11/22/2023 Patient: Hayden Pendleton Medical Record: [id number] Primary Care Physician: Quang Hanson MD Referring Provider: Ramirez Thomas [address] [facility] [address] Last Rheumatology visit: 11/04/2023 (with Ciera Palm) Chief complaint: Follow Up The patient's identity and physical location were verified at the time of this visit. 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 Rheumatology Outpatient Clinic Date of Service: 11/22/2023 Patient: Hayden Pendleton Medical Record: [id number] Primary Care Physician: Quang Hanson MD Referring Provider: Ramirez Santos[address] [facility] [address] Last Rheumatology visit: 11/04/2023 (with Ciera Palm) Chief complaint: Follow Up The patient's identity and physical location were verified at the time of this visit. Either the patient or their legal pharmaceutical representative has been informed of the risks [...] diagnosed years ago based on biopsy by classroom aide, has not been on any medications and [...] <0.2 Sm Antibody Negative Negative Negative Ribosomal DRILLING ENGINEER Ab <1.0 AI <0.2 <0.2 Ribosomal DRILLING ENGINEER Qualitative Negative Negative Negative Chromatin Ab <1.0 AI <0.2 <0.2 Chromatin Ab Qual Negative Negative Negative SSA Antibody Qual Negative Negative Negative Anti-SSA <1.0 AI <0.2 <0.2 Anti-SSB <1.0 AI <0.2 <0.2 DRILLING ENGINEER Antibody QUAL Negative Negative Negative Scleroderma Ab [...] inflammatory arthropathy in either hand or foot. Tablet Technician: JACKI Transcribe Date/Time: Nov 13 2023 4:18P... [...] Cervical spine degenerative changes as described above. Tablet Technician: JACKI Transcribe Date/Time: Nov 11 2023 2:40P [...] screening Defer to PCP Orders this visit: [facility] on 11/22/23 URINALYSIS, WITH MICROSCOPIC Return [...] was partially generated with the assistance of Bonafide voice recognition software. An attempt was made to correct any dictation errors however there may be some incorrect words, spellings, and punctuation. Ciera Palm MD [facility] Rheumatology Associate Staff [facility] Co Chairmanrubber cutter and shape carver [facility] documented in this encounterGeorgetown [facility]al Hospital09-17-2024 History of Present illness Narrative* Kay [...] 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 RADIOLOGY DEPARTMENT: General X-ray: Exam(s) Completed: Spine X-Ray(s): Cervical AP / LAT / OBL , Thoracic, and Lumbar AP / LAT / L5-S1 Lower Extremity X-Ray(s): Foot, Bilateral Upper Extremity X-Ray(s): Hand, bilateral si joints 2v PERIPHERAL IV DATA: Not applicable SIGNED BY: DEO Kuhn) November 09, 2023 3:57 PM documented in this encounterGeorgetown [facility]al Hospital09-17-2024 NoteHNO ID: [id number] Author: KAY GALEAS RT(R) Service: Radiology Author Type: Technologist Type: Progress [...] 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 RADIOLOGY DEPARTMENT: General X-ray: Exam(s) Completed: Spine X-Ray(s): Cervical AP / LAT / OBL , Thoracic, and Lumbar AP / LAT / L5-S1 Lower Extremity X-Ray(s): Foot, Bilateral Upper Extremity X-Ray(s): Hand, bilateral si joints 2v PERIPHERAL IV DATA: Not applicable SIGNED BY: Kay Galeas, (R) November 09, 2023 3:57 [facility]09-12-2024 History of Present illness Narrative* Ciera Palm MD - 11/04/2023 9:40 AM EDT Images from the original note were not included. Rheumatology Outpatient Clinic Date of Service: 11/04/2023 Patient: Hayden Pendleton Medical Record: [id number] Primary Care Physician: Quang Hanson MD Referring Provider: Ramirez Thomas [address] [facility] [address] Last Rheumatology visit: None at [facility] Chief complaint: Joint Pain and Positive [...] diagnosed years ago based on biopsy by classroom aide, has not been on any medications and [...] AI <0.2 Sm Antibody Negative Negative Ribosomal DRILLING ENGINEER Ab <1.0 AI <0.2 Ribosomal DRILLING ENGINEER Qualitative Negative Negative Chromatin Ab <1.0 AI <0.2 Chromatin Ab Qual Negative Negative SSA Antibody Qual Negative Negative Anti-SSA <1.0 AI <0.2 Anti-SSB <1.0 AI <0.2 DRILLING ENGINEER Antibody QUAL Negative Negative Scleroderma Ab Qual [...] which included preparing to see the patient, [id number] patient care, completing clinical documentation, obtaining and/or reviewing separately obtained history, performing a medically appropriate examination, counseling and educating the pat ient/family/caregiver, and ordering medications, tests, or procedures. This note was partially generated with the assistance of Bonafide voice recognition software. An attempt was made to correct any dictation errors however there may be some incorrect words, spellings, and punctuation. Ciera Palm MD [facility] Rheumatology Associate Staff [facility] Co Chairmanrubber cutter and shape carver [facility] documented in this encounterGeorgetown Behavioral Hospital09-12-2024 NoteHNO ID: [id number] Author: CIERA PALM MD Service: ? Author Type: Physician Type: Progress Notes Filed: 11/04/2023 14:23 Note Text: Rheumatology Outpatient Clinic Date of Service: 11/04/2023 Patient: Hayden Pendleton Medical Record: [id number] Primary Care Physician: Quang Hanson MD Referring Provider: Ramirez Thomas [address] [place] [address] Last Rheumatology visit: None at [facility] Chief complaint: Joint Pain and Positive [...] diagnosed years ago based on biopsy by classroom aide, has not been on any medications and [...] GENITOURINARY: Negative for: Dysuria (more content not included)...[facility]09-01-2024 Miscellaneous Notes* Telephone Encounter - Maira Pope - 01/07/2024 7:27 AM EST Scheduled patient with Dr. Chavez for 06-06-24 at 3 pm in [place]. Sent [employer] message and letter to home address. Thanks Maira Pope * Telephone Encounter - Celia Smallwood LPN - 01/07/2024 7:13 AM EST Last seen 02/23/2023. Please call patient with annual appointment. Thank you! Celia Smallwood LPN documented in this encounterGe[facility]06-19-2024 Telephone encounter Note * Telephone Encounter - Magy Aviles MA - 08/11/2023 8:54 AM EDT Please sign consult for Structural Technician. [facility]06-19-2024 Miscellaneous Notes* Telephone Encounter - Magy Aviles MA - 08/11/2023 8:54 AM EDT Please sign consult for Structural Technician. documented in this encounterGeorgetown Behavioral Hospital06-17-2024 History of Present illness Narrative* Ramirez Thomas MD - 08/09/2023 8:54 AM EDT Ramirez Thomas MD Department of Orthopaedics Orthopaedics [address] [facility] [address] Dept: [phone] Dept August 09, 2023 CHIEF COMPLAINT: New and Pain of the Left Knee and New and Pain of the Right Knee HPI Patient here today with his significant other for bilateral knee pain x 10- 15 years. 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 Denies any injury. New x-ray today at [facility]. ASSESSMENT: M25.561, M25.562, G89.29 Chronic pain [...] subjectively. IMAGING: Impression IMPRESSION: Minimal degenerative change. Tablet Technician: PSCB Transcribe Date/Time: Aug 13 2023 7:56A [...] anxiety) Ramirez Thomas MD documented in this encounterGeorgetown Behavioral Hospital06-17-2024 History of Present illness Narrative* Manda Dudley RT(R) - 08/09/2023 8:00 AM EDT [...] 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 RADIOLOGY DEPARTMENT: General X-ray: Exam(s) Completed: Lower Extremity X- Ray(s): Knee, AP / Lat / Tunne / Merchant Bilateral and Wt. Bearing PERIPHERAL IV DATA: Not applicable SIGNED BY: RT Fabián(R) August 09, 2023 1:42 PM documented in this encounterGeorgetown Behavioral Hospital05-28-2024 Telephone encounter Note * Telephone Encounter - Harrison Silveira LPN - 07/20/2023 3:04 PM EDT Patient's request for medication is as follows: Requested Prescriptions Pending Prescriptions Disp Refills isosorbide mononitrate ER (IMDUR) 30 mg 24 hr tablet 90 tablet 2 Sig: Take 1 tablet by mouth once daily. Last seen 02/23/2023. Follow up scheduled for 02/2024. Prescription(s) as above. Please process accordingly. Harrison Silveira LPN [facility]05-28-2024 Miscellaneous Notes* Telephone Encounter - Harrison [...] accordingly. Harrison Silveira LPN documented in this encounterGeorgetown Behavior[facility] Hospital11-07-2023 Miscellaneous Notes* Telephone Encounter - Celia Smallwood LPN - 12/29/2022 7:39 AM EST Patient's request for medication is as follows: Requested Prescriptions Pending Prescriptions Disp Refills metoprolol tartrate, short acting, (LOPRESSOR) 25 mg tablet [Pharmacy Med Name: Metoprolol Lpyseoal59 MG Oral Tablet] 60 tablet 1 Sig: Take 1 tablet by mouth twice daily Last seen 10/15/2021. Over due follow up scheduled for 02/23/2023. Prescription(s) as above. Please process accordingly. Celia Smallwood LPN documented in this encounterGeorgetown [facility]al Hospital09-18-2023 Miscellaneous Notes* Telephone Encounter - Michelle March - 11/09/2022 1:50 PM EDT I called to schedule and overdue follow up with Dr. Chavez.M Pt. scheduled for 02/23/2023 at 11:40 in [facility] [place].Please update Pt. insurance. Michelle March November 09, 2022 1:53 PM * Telephone Encounter - Harrison Silveira LPN - 11/09/2022 11:11 AM EDT Last seen 10/15/2021. Clerical to call pt to schedule pt. Harrison Silveira LPN documented in this encounterGeorgetown Behavioral Hospital09-18-2023 Miscellaneous Notes* Telephone Encounter - Harrison [...] accordingly. Harrison Silveira LPN documented in this encounterGeorgetown Behavioral Hospital08-09-2023 Miscellaneous Notes* Telephone Encounter - Hayden Lindquist RN - 09/30/2022 10:15 AM EDT Pended refill for Imdur 30 mg and lopressor 25 mg CECILIA 10/15/22 [facility] 11/05/21 documented in this encounterGeorgetown Behavioral Hospital05-12-2023 Hospital Discharge instructions Additional Instructions Shower, warm bath and massage for your muscle spasm around your left shoulder blade. Skelaxin the muscle relaxant 1 pill 3 times a day for 7 days. Should start feeling better in 3 to 4 days. Limited Percocet for pain. Follow-up with your doctor.[facility] Work Phone: 1(245) [phone] Miscellaneous Notes* Telephone Encounter - Mohini Alexander LPN - 05/29/2022 10:38 AM EDT Patient's request for medication is as follows: Requested Prescriptions Pending Prescriptions Disp Refills metoprolol tartrate, short acting, (LOPRESSOR) 25 mg tablet [Pharmacy Med Name: Metoprolol Vyzuyqps34 MG Oral Tablet] 90 tablet 0 Sig: Take 1 tablet by mouth twice daily Last seen 04/23/21.clerical notified for follow -up appt. Prescription(s) as above. Please process accordingly. Mohini Alexander LPN documented in this encounterGeorgetown [facility]al Hospital04-07-2023 Miscellaneous Notes* Telephone Encounter - Hayden [...] a prescription refill to same pharmacy [facility]. Could someone assist him? Thank you, Estefani Butt documented in this encounterGeorgetown Behavioral Hospital10-17-2022 Miscellaneous Notes* Telephone Encounter - Celia [...] accordingly. Celia Smallwood LPN documented in this encounterGeorgetown Behavioral Hospital09-21-2022 Miscellaneous Notes* Telephone Encounter - Birgit Anderson RN - 11/12/2021 4:52 PM EDT Letter faxed for cardiac appointment and cardiac catheterization date to [facility] absence management for patient to be excused from work. Spoke with spouse and instructed her to have PCP complete the [facility] paperwork for his shortness of breath since cardiac workup is negative. Birgit Anderson RN * Telephone Encounter - Birgit Anderson RN - 11/12/2021 3:17 PM EDT Received [place] paperwork from [facility] for Dr. Chavez. Spoke with spouse whostated patient needs an excuse for Hayden to be off work for his cardiac appointment and the cardiac catheterization he had completed. Letter needs to be faxed to [phone]. Birgit Anderson RN documented in this encounterGeorgetown [facility] Hospital09-14-2022 Procedure note* Anette Garcia MD - [...] the wrist with 1% lidocaine. A pre-flushed 6-Armenian sheath was inserted into the femoral artery via the Seldinger technique without complications. Retrograde percutaneous diagnostic coronary angiography and left ventriculography were performed using a Loree left 4 catheter, a 3-D RC catheter, and an angled pigtail catheter. There were no complications of the procedure. Findings: Angiography: LEFT MAIN: Severe distal left main 90% . LEFT CIRCUMFLEX: Severe [place] disease. LEFT ANTERIOR DESCENDING: Moderate proximal disease. [...] 2021 TIME: 11:32 AM documented in this encounterGeorgetown [facility] Hospital09-14-2022 History and physical note * Anette [...] 2021 TIME: 9:23 AM documented in this encounterGeorgetown Behavioral Hospital09-12-2022 Miscellaneous Notes* Telephone Encounter - Peggy Sharma - 11/03/2021 2:51 PM EDT Spoke with . * Telephone Encounter - Peggy Sharma - 11/03/2021 2:51 PM EDT ----- Message from Felicitas Chavez MD sent at 11/02/2021 3:52 PM EDT ----- Please inform Hayden of normal blood tests. Thanks, Felicitas Chavez MD documented in this encounterGe[facility] Hospital09-01-2022 Miscellaneous Notes* Telephone Encounter - Felicitas [...] much. Felicitas Chavez MD documented in this encounterGeorgetown Behavioral Hospital08-24-2022 History of Present illness Narrative* Felicitas [...] he had an exercise stress echo at [facility] and was referred here to see a boat driver after that. I do not have any records from his PCPs office. 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 He underwent four-vessel CABG on 10/25/[address] Alonso. Postopcourse was uneventful. He has been enrolled in cardiac rehab at [facility]. I received notification from them that [...] evaluation. He said he went to the [facility] ER on Wednesday. He said they did EKG and blood work and sent him home to follow-up with a boat driver. 10/15/2021: Patient was started on Imdur at [...] breath gets worse. He recently saw a observer gravity prospecting who did a lung cancer screening CAT scan. Additionally he also had PFTs done recently andis due to see the observer gravity prospecting in follow-up next week. PAST MEDICAL HISTORY [...] circumflex 70%. OM2 99% moderate disease. RCA GIVER. Good collaterals from LAD and septals filling [...] He has a follow-up appointment with his observer gravity prospecting next week. In all likelihood his lung symptoms are secondary to pulmonary condition. If the observer gravity prospecting does not feel this to be the [...] visit. Felicitas Chavez MD documented in this encounterGe[facility] Hospital07-19-2022 Miscellaneous Notes* Telephone Encounter - Hayden [...] Thanks, Felicitas Chavez MD documented in this encounterGeorgetown Behavioral Hospital07-19-2022 Miscellaneous Notes* Telephone Encounter - Hayden [...] he does have access to a nurse data collection associate to be triaged, to seek out that service as well. He does not receive primary care through so I could not nurse triage him. Thank you, Estefani Butt documented in this encounterGeorgetown Behavioral Hospital07-18-2022 NoteHNO ID: [id number] Author: BRI Douglas Service: Nuclear Medicine Author [...] STATUS: Discontinued PROCEDURE TYPE: NM Stress: 12.5mCi Ad37a-Poabjnj was administered IV for Rest Imaging at 13:41 by BRI Douglas. 32.7 mCi Ww76q-Gwfvoie was administered IV for Stress Imaging at 14:28 by BRI Douglas PATIENT DISCHARGED TO: Ambulatory patient, left [place] department area. A Diagnostic radioactive procedure has taken place, with no further precautions necessary other than routine body substance precautions. More information regarding radiation safety can be found using this link: [email or web address] %[email or web address]%20Nuclear%20Medicine%20Procedures.[email or web address] SIGNATURE: BRI Douglas PATIENT NAME: Hayden Pendleton DATE: September 08, 2021 TIME: 2:36 PM PAGER/CONTACT #:[id number] NoteHNO ID: [id number] Author: BRI Douglas Service: Nuclear Medicine Author [...] STATUS: Discontinued PROCEDURE TYPE: NM Stress: 12.5mCi Ht44y-Shjwoub was administered IV for Rest Imaging at 13:41 by BRI Douglas. 32.7 mCi Na85s-Rpbtvjf was administered IV for Stress Imaging at 14:28 by BRI Douglas PATIENT DISCHARGED TO: Ambulatory patient, left [place] department area. A Diagnostic radioactive procedure has taken place, with no further precautions necessary other than routine body substance precautions. More information regarding radiation safety can be found using this link: [email or web address] %[email or web address]%20Nuclear%20Medicine%20Procedures.pdf SIGNATURE: BRI Douglas PATIENT NAME: Hayden Pendleton DATE: September 08, 2021 TIME: 2:38 PM PAGER/CONTACT #:[facility] [id number] History of Present illness Narrative* BRI Douglas [...] STATUS: Discontinued PROCEDURE TYPE: NM Stress: 12.5mCi Bx43y-Nbvasne was administered IV for Rest Imaging at 13:41 by BRI Douglas. 32.7 mCi So15e-Tojpuqp was administered IV for Stress Imaging at 14:28 by BRI Luis PATIENT DISCHARGED TO: Ambulatory patient, left [place] department area. A Diagnostic radioactive procedure has taken place, with no further precautions necessary other than routine body substance precautions. More information regarding radiation safety can be found usingthis link: [email or web address] 20Diagnostic%20Nuclear%20Medicine%20Procedures.pdf SIGNATURE: RBI Douglas PATIENT NAME: Hayden Pendleton DATE: September [...] POST EXAM PIV STATUS: Discontinued PROCEDURE TYPE: OK Stress: 12.5mCi Pi99o-Ovyerel was administered IV for Rest Imaging at 13:41 by BRI Douglas. 32.7 mCi Ab26j-Dvrqwqv was administered IV for Stress Imaging at 14:28 by BRI Luis PATIENT DISCHARGED TO: Ambulatory patient, left [place] department area. A Diagnostic radioactive procedure has taken place, with no further precautions necessary other than routine body substance precautions. More information regarding radiation safety can be found usingthis link: [email or web address] SIGNATURE: BRI Douglas PATIENT NAME: Hayden Pendleton DATE: September 08, 2021 TIME: 2:36 PM PAGER/CONTACT #: documented in [facility]22 Miscellaneous Notes* Result QuickNote - Felicitas [...] Thanks, Felicitas Chavez MD documented in this encounterGe[facility]07-15-2022 Miscellaneous Notes* Telephone Encounter - Vani Perdomo RN - 09/05/2021 2:35 PM EDT Left message regarding reminder for stress test on Wednesday and given instructions documented in this encounterGeorgetown [facility]07-13-2022 History of Present illness Narrative* Felicitas [...] he had an exercise stress echo at [facility] and was referred here to see a boat driver after that. I do not have any records from his PCPs office. 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 He underwent four-vessel CABG on 10/25/[address] Alonso. Postopcourse was uneventful. He has been enrolled in cardiac rehab at [facility]. I received notification from them that [...] evaluation. He said he went to the [facility] ER on Wednesday. He said they did EKG and blood work and sent him home to follow-up with a boat driver. PAST MEDICAL HISTORY Diagnosis Date Dyslipidemia HTN [...] circumflex 70%. OM2 99% moderate disease. RCA GIVER. Good collaterals from LAD and septals filling [...] visit. Felicitas Chavez MD documented in this encounterGeorgetown [facility]07-08-2022 Miscellaneous Notes* Telephone Encounter - Melania Negron RN - 08/29/2021 2:45 PM EDT Message to , she will relay to the patient. * Telephone Encounter - Peggy Sharma - 08/29/2021 2:33 PM EDT Images from the original note were not included. MD Melania Olvera RN; Jessica [facility] 4 minutes ago (2:27 PM) [...] exhausted and SOB. states patient went to Forensic Toxicologist today that is outside of [facility], they [...] patient and and advise. documented in this encounterGeorgetown [facility]03-30-2022 Miscellaneous Notes* Telephone Encounter - Celia Smallwood LPN - 05/21/2021 7:38 AM EDT Patient's request for medication is as follows: Pending Prescriptions Disp Refills ROSUVASTATIN 20 MG TABLET 90 tablet 3 Sig: TAKE 1 TABLET BY MOUTH EVERY DAY AT BEDTIME DOROTHY: Yes Last seen 04/23/2021. Prescription(s) as above. Please process accordingly. Celia Smallwood LPN documented in this encounterGeorgetown [facility] Hospital10-01-2021 History of Present illness Narrative* Snow De Jesus RT(R) - 11/22/2020 1:30 PM EDT Radiology [...] 22, 2020 1:35 PM documented in this encounterGeorgetown Behavioral HospitalDischarge summary Author Dr. Kapadia [facility] July 03, 2022 12:46pm Note Date/Time July 03, 2022 11:18 am [facility] Medical Records Department [address] [place] [address] Emergency Department Summary 07/03/22 MR#: [id number] Acct: [id number] Name: HAYDEN PENDLETON Rep #:[id number] : 1965 57 From: Alex Kapadia MD [...] Factors: Negative for Marfan's Syndrome or Hypertension [facility] Medical History Abnormal CT lung screening Anemia [...] % (Auto) 55.7 Lymph % (Auto) 32.1 [place] % (Auto) 5.2 Eos % (Auto) 3.5 [...] rate of 67 no acute signs of TX or ischemia. Prior EKG tracings: available for [...] your Primary Care Provider. Call [facility] ([phone]) or report to the closest Emergency Room. Call 911 if necessary. 07/03/22 1246 <Electronically signed by Alex Kapadia MD> Cosigner Signature (if applicable): CC: Dr. Quang Hanson MD ~ Signed [facility] Work Phone: Evaluation note* Diagnosis Dyslipidemia Other and unspecified hyperlipidemia documented in this encounter [facility] note* Diagnosis Coronary artery disease involving [place] coronary artery of [place] heart without angina pectoris- Primary Precordial pain Hx of CABG Postsurgical aortocoronary bypass status SHAH (dyspnea on exertion) Other dyspnea and respiratory abnormality Primary hypertension Unspecified essential hypertension [facility]* Diagnosis Precordial pain Coronary artery disease involving [place] coronary artery of [place] heart without angina pectoris Hx of CABG Postsurgical aortocoronary bypass status SHAH (dyspnea on exertion) Other dyspnea and respiratory abnormality documented in this encounter [facility] note* Diagnosis Onset Date Resolution Status Positive CHANDANA (antinuclear antibody) acute Smoking greater than 20 pack years [facility] Work Phone: Evaluation note* Diagnosis Onset Date Resolution Status Positive CHANDANA (antinuclear antibody) acute Smoking greater than 20 pack years acute Left kidney mass acute Chronic fatigue chronic SOB (shortness of breath) [facility] Work Phone: Evaluation note* Diagnosis Coronary artery disease involving [place] coronary artery of [place] heart without angina pectoris- Primary Hx of CABG Postsurgical aortocoronary bypass status Smoker Tobacco use disorder SHAH (dyspnea on exertion) Other dyspnea and respiratory abnormality documented in this encounter [facility]* Diagnosis SHAH (dyspnea on exertion)- Primary Other dyspnea and respiratory abnormality Precordial pain Coronary artery disease involving [place] coronary artery of [place] heart without angina pectoris Hx of CABG Postsurgical aortocoronary bypass status [facility]* Diagnosis Angina of effort (HCC) [I20.8 (ICD-10-CM)]- Primary Other and unspecified angina pectoris [facility] this [facility]* Diagnosis Onset Date Resolution Status Left kidney mass acute Chronic fatigue chronic SOB (shortness of breath) ch ronic Positive CHANDANA (antinuclear antibody) acute SOB (shortness of breath) ch ronic BPH (benign prostatic hyperplasia) acute Chronic fatigue chronic Chronic low back pain chroni c Hypertension chronic COVID-19 acute [facility] Work Phone: Evaluation note* Diagnosis Onset Date Resolution Status Anxiety and depression acute Erectile dysfunction acute Hypersomnia acute Chronic low back pain chroni c Hyperlipidemia chronic PRABHU (obstructive sleep apnea) chronic Rheumatoid arthritis noneact sheba [facility] Work Phone: Evaluation note* Diagnosis Onset Date Resolution Status Anxiety and depression acute Erectile dysfunction acute Hypersomnia acute Chronic low back pain chroni c Hyperlipidemia chronic PRABHU (obstructive sleep apnea) chronic Rheumatoid arthritis noneact sheba SOB (shortness of breath) ch ronic Shoulder pain resolved [facility] Work Phone: Evaluation note* Diagnosis Primary hypertension- Primary Unspecified essential hypertension documented in this encounter [facility]* Diagnosis Primary hypertension Unspecified essential hypertension documented in this encounter [facility] noteNo assessment information availableWSouth[facility] Work Phone: Evaluation note* Diagnosis Primary hypertension Unspecified essential hypertension documented in this encounter [facility]* Diagnosis Pain in both knees, unspecified chronicity- Primary documented in this encounter [facility]* Diagnosis Pain in both knees, unspecified chronicity documented [facility] this encounter [facility]* Diagnosis Chronic pain of both knees- Primary Primary osteoarthritis of both knees Primary localized osteoarthrosis, lower leg HCANDANA positive Other and unspecified nonspecific immunological findings documented in this encounter [facility]* Diagnosis Chronic bilateral low back pain without sciatica- Primary CHANDANA positive Other and unspecified nonspecific immunological findings Chronic pain of both knees Primary osteoarthritis of both knees Primary localized osteoarthrosis, lower leg documented in this encounter [facility]* Diagnosis Chronic pain of both knees CHANDANA positive Other and unspecified nonspecific immunological findings Chronic bilateral low back pain without sciatica documented in this encounter [facility]* Diagnosis CHANDANA positive- Primary Other and unspecified nonspecific immunological findings Chronic pain of both knees Primary osteoarthritis of both knees Primary localized osteoarthrosis, lower leg documented in this encounter [facility]* Diagnosis S/P CABG x 4 Postsurgical aortocoronary bypass status documented in this encounter [facility]* Diagnosis Primary hypertension Unspecified essential hypertension documented in this encounter [facility] note* Diagnosis Dyslipidemia Other and unspecified hyperlipidemia documented in this encounter [facility] note* Diagnosis Primary hypertension Unspecified essential hypertension documented in this encounter [facility] note* Diagnosis Onset Date Resolution Status Admit Date Vertigo resolved May 25 2:14pm [facility] Work Phone: Evaluation note* Diagnosis Coronary artery disease involving [place] coronary artery of [place] heart without angina pectoris- Primary SHAH (dyspnea on exertion) Other dyspnea and respiratory abnormality Vertigo Dizziness and giddiness Palpitations Dyslipidemia Other and unspecified hyperlipidemia Hx of CABG Postsurgical aortocoronary bypass status [facility] this encounter [facility]* Diagnosis Palpitations documented in this encounter [facility] note* Diagnosis Cognitive impairment Unspecified persistent mental disorders due to conditions classified elsewhere documented in this encounter [facility] note* Diagnosis Vestibular hypofunction, unspecified laterality- Primary [facility] Work Phone: [facility] Discharge instructions[facility] Work Phone: [facility] Dis[facility] Work Phone: Reason for referral (narrative)* Diagnostic Procedure Only (Routine) - Authorized Specialty Diagnoses / Procedures Referred By Contac t Referred To Contact MOLECULAR & FUNCTIONAL IMAGING Diagnoses Precordial pain Coronary artery disease involving [place] coronary artery of [place] heart without angina pectoris Hx of CABG SHAH (dyspnea on exertion) Procedures NM CARDIAC PERF STRESS/PHARM MYOCARDIAL SPECT MULTIPLE STUDIES Felicitas Chavez MD [address] [place] [address] Molecular & Functional Imaging [address] [place] [address] Referral ID Status Reason Start Date Expiration Date Visits Requested Visits Authorized [id number] Authorized Auto-Generat ed Referral 09/03/2021 10/02/2021 1 1 * Outpatient Procedure (Routine) - Closed Specialty Diagnoses / Procedures Referred By Winifredac t Referred To Contact [facility] Diagnoses Precordial pain Procedures ECG COMPLETE ECG ROUTINE ECG W/LEAST 12 LDS W/I&R Felicitas Chavez MD [address] [place] [address] [facility] [place] [address] [place] [address] Referral ID Status Reason Start Date Expiration Date V isits Requested Visits Authorized [id number] Closed Auto-Generate d Referral 09/03/2021 09/03/2022 1 1 [facility] (narrative)* Diagnostic Procedure Only (Routine) - Closed Specialty Diagnoses / Procedures Referred By Myles t Referred To Contact MOLECULAR & FUNCTIONAL IMAGING Diagnoses Precordial pain Coronary artery disease involving [place] coronary artery of [place] heart without angina pectoris Hx of CABG SHAH (dyspnea on exertion) Procedures NM CARDIAC PERF STRESS/PHARM MYOCARDIAL SPECT MULTIPLE STUDIES Felicitas Chavez MD [address] [place] [address] Molecular [facility] Functional Imaging [address] [place] [address] Referral ID Status Reason Start Date Expiration Date V isits Requested Visits Authorized [id number] Closed Auto-Generate d Referral 09/03/2021 10/02/2021 1 1 [facility] (narrative)* Diagnostic Procedure Only (Routine) - Pending Review Specialty Diagnoses / Procedures [facility] Referred To Contact XR IMAGING Diagnoses Pain in both knees, unspecified chronicity Procedures XR KNEE GENERAL 4V AP BOTH/PA BOTH/LAT/MERC BILATERAL RADIOLOGIC EXAM KNEE COMPLETE 4/MORE VIEWS Ramirez Thomas MD [address] [place] [address] [facility] [place] [address] Referral ID Status Reason Start Date Expiration Date Visits Requested Visits Authorized [id number] Pending Review Auto-Generat ed Referral 07/27/2023 08/25/2024 1 1 [facility] (narrative)* Diagnostic Procedure Only (Routine) - Authorized Specialty Diagnoses / Procedures Referred By Contac t Referred To Contact XR IMAGING Diagnoses Chronic bilateral low back pain without sciatica Procedures XR THORACIC LIMITED 2V AP/LAT RADEX SPINE THORACIC 2 VIEWS Ciera Palm MD [address] [place] [address] [facility] [place] [address] Referral ID Status Reason Start Date Expiration Date Visits Requested Visits Authorized [id number] Authorized Auto-Generat ed Referral 11/04/2023 12/03/2024 1 1 * Diagnostic Procedure Only (Routine) - Authorized Specialty Diagnoses / Procedures Referred By Contac t Referred To Contact XR IMAGING Diagnoses Chronic pain of both knees CHANDANA positive Procedures XR CERV OTHER 4V AP/LAT/OBL RADEX SPINE CERVICAL 4 OR 5 VIEWS Ciera Palm MD [address] [place] [address] [facility] [place] [address] Referral ID Status Reason Start Date Expiration Date Visits Requested Visits Authorized [id number] Authorized Auto-Generat ed Referral 11/04/2023 12/03/2024 1 1 * Diagnostic Procedure Only (Routine) - Authorized Specialty Diagnoses / Procedures Referred By Contac t Referred To Contact XR IMAGING Diagnoses Chronic pain of both knees CHANDANA positive Chronic bilateral low back pain without sciatica Procedures XR HAND GENERAL 3V PA/LAT/OBL BILATERAL RADEX HAND MINIMUM 3 VIEWS Ciera Palm MD [address] [place] [address] X[facility] [place] [address] Referral ID Status Reason Start Date Expiration Date Visits Requested Visits Authorized [id number] Authorized Auto-Generat ed Referral 11/04/2023 12/03/2024 1 1 * Diagnostic Procedure Only (Routine) - Authorized Specialty Diagnoses / Procedures Referred By Contac t Referred To Contact XR IMAGING Diagnoses Chronic pain of both knees CHANDANA positive Procedures XR FOOT GENERAL 3V AP/LAT/OBL BILATERAL RADEX FOOT COMPLETE MINIMUM 3 VIEWS Ciera Palm MD [address] [place] [id number] X[facility] [place] [address] Referral ID Status Reason Start Date Expiration Date Visits Requested Visits Authorized [id number] Authorized Auto-Generat ed Referral 11/04/2023 12/03/2024 1 1 * Diagnostic Procedure Only (Routine) - Authorized Specialty Diagnoses / Procedures Referred By Contac t Referred To Contact XR IMAGING Diagnoses Chronic pain of both knees CHANDANA positive Procedures XR SACROILIAC JOINTS 2V AP PELVIS/FERGUESON RADIOLOGIC EXAMINATION SACROILIAC JNTS <3 VIEWS Ciera Palm MD [address] [place] [address] X[facility] [place] [address] Referral ID Status Reason Start Date Expiration Date Visits Requested Visits Authorized [id number] Authorized Auto-Generat ed Referral 11/04/2023 12/03/2024 1 1 * Diagnostic Procedure Only (Routine) - Authorized Specialty Diagnoses / Procedures Referred By Contac t Referred To Contact XR IMAGING Diagnoses Chronic pain of both knees CHANDANA positive Procedures XR LUMBAR GENERAL 3V AP/LAT/L5-S1 RADEX SPINE LUMBOSACRAL 2/3 VIEWS Ciera Palm MD [address] [place] [address] Xr Imaging [facility] Referral ID Status Reason Start Date Expiration Date Visits Requested Visits Authorized [id number] Authorized Auto-Generat ed Referral 11/04/2023 12/03/2024 1 1 [facility] (narrative)No reason for referral information availableWS[facility] Work Phone: [facility] for visit Narrative* Diagnostic Procedure Only (Routine) - Closed Specialty Diagnoses / Procedures Referred By Contac t Referred To Contact MOLECULAR & FUNCTIONAL IMAGING Diagnoses Precordial pain Coronary artery disease involving [place] coronary artery of [place] heart without angina pectoris Hx of CABG SHAH (dyspnea on exertion) Procedures NM CARDIAC PERF STRESS/PHARM MYOCARDIAL SPECT MULTIPLE STUDIES Felicitas Chavez MD [address] [place] [address] Molecular & Functional Imaging [address] [place] [id number] Referral ID Status Reason Start Date Expiration Date V isits Requested Visits Authorized [id number] Closed Auto-Generate d Referral 09/03/2021 10/02/2021 1 1 [facility] Narrative* Diagnostic Procedure Only (Routine) - Closed Specialty Diagnoses / Procedures Referred By Contac t Referred To Contact XR IMAGING Diagnoses Pain in both knees, unspecified chronicity Procedures XR KNEE GENERAL 4V AP BOTH/PA BOTH/LAT/MERC BILATERAL RADIOLOGIC EXAM KNEE COMPLETE 4/MORE VIEWS Ramirez Thomas MD [address] [place] [address] Xr Imaging [facility] Referral ID Status Reason Start Date Expiration Date V isits Requested Visits Authorized [id number] Closed Auto-Generate d Referral 07/27/2023 08/25/2024 1 1 [facility] Narrative* Diagnostic Procedure Only (Routine) - Closed Specialty Diagnoses / Procedures Referred By Contac t Referred To Contact XR IMAGING Diagnoses Chronic bilateral low back pain without sciatica Procedures XR THORACIC LIMITED 2V AP/LAT RADEX SPINE THORACIC 2 VIEWS Ciera Palm MD [address] [place] [address] [place] [address] Referral ID Status Reason Start Date Expiration Date V isits Requested Visits Authorized [id number] Closed Auto-Generate d Referral 11/04/2023 12/03/2024 1 1 [facility] Advance Directives No Advanced Directives Records FoundDocuments on File Type Date Recorded 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 Accountant 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 anation Advance Directive(s) 10/22/2020 7:00 AM Latest Code Status on File Code Status Date Activated Date Inactivated Comments Full Code 10/31/2020 4:19 PM Documents on File Type Date Recorded 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 Accountant Expl anation Advance Directive(s) 10/22/2020 7:00 AM Latest Code Status on File Code Status Date Activated Date Inactivated Comments Full Code 10/31/2020 4:19 PM Advance Directive Response Recorded Date/ Time Advance Directives No September 12 9:02am Living Will No August 29, 2021 5 :44pm Power of Basketball Assembler No August 29, 2021 5:44pm Latest Code [...] August 29, 2021 4 :44pm Power of Basketball Assembler No August 29, 2021 4:44pm Advance Directive Response Recorded Date/ Time Advance Directives No September 12 9:02am Living Will No July 03, 2022 1 0:59am Power of Basketball Assembler No July 03, 2022 10:59am Latest Code Status on File Code Status Date Activated Date Inactivated Comments Full Code 10/31/2020 4:19 PM 11/05/2021 8:42 AM Advance Directive Response Recorded Date/ Time Advance Directives No September 12 8:02am Living Will No August 25, 2022 1 2:07pm Power of Basketball Assembler No August 25, 2022 12:07pm Date Activated Date Inactivated Comments 10/31/2020 4:19 PM 11/05/2021 8:42 AM Date Activated Date Inactivated Comments 10/31/2020 4:19 PM 11/05/2021 8:42 AM Advance Directive Response Recorded Date/ Time Advance Directives No September 12 9:02am Advance Directive Response Recorded Date/ Time Living Will No May 25, 2024 1:28pm Do you have a Healthcare Power of Basketball Assembler? No May 25, 2024 1:28pm Advance Directives No September 12 9:02am Advance Directive Response Recorded Date/ Time Living Will No May 25, 2024 3:08pm Do you have a Healthcare Power of Basketball Assembler? No May 25, 2024 3:08pm Advance Directives No September 12 9:02am Date Activated Date Inactivated Comments 06/09/2024 5:46 PM 06/13/2024 3:46 PM Question Answer Comments Full Code Order Discussed With: Patient Date Activated Date Inactivated Comments 10/31/2020 4:19 PM 11/05/2021 8:42 AM Advance Directive Response Recorded Date/ Time Advance Directives No August 29 4:01pm Medications Administered Section Inactive Administered Medications - [...] 8:12am Vertigo July 05, 2024 8:12a m Chief Complaint Admit Date PERSISTENT VERTIGO May 25, 2024 2:14 pm PERSISTENT VERTIGO May 26, 2024 1:42 pm Vertigo July 05, 2024 8:12a m NECK PAIN, PARASTHESIAS IN HANDS July 4:09pm Reason for Visit Admit Date Vertigo May 25, 2024 2:14 pm Anxiety July 05, 2024 8:12a m Disequilibrium July 05, 2024 8:12a m Neck pain July 05, 2024 8:12a m Paresthesias July 05, 2024 8:12a m Vitamin d deficiency July 05, 2024 8:12 am Chronic fatigue July 05, 2024 8:12a m Depression July 05, 2024 8:12a m Peripheral vestibulopathy July 05, 2024 8:12am Vertigo July 05, 2024 8:12a m Chief Complaint Admit Date PERSISTENT VERTIGO May 25, 2024 2:14 pm PERSISTENT VERTIGO May 26, 2024 1:42 pm Vertigo July 05, 2024 8:12a m NECK PAIN, PARASTHESIAS IN HANDS July 5t h2024 4:09pm E-ORDER August 03, 2024 8:08 am B12 inject August 03, 2024 8:29 am Reason for Visit Admit Date Vertigo May 25, 2024 2:14 pm Anxiety July 05, 2024 8:12a m Disequilibrium July 05, 2024 8:12a m Neck pain July 05, 2024 8:12a m Paresthesias July 05, 2024 8:12a m Vitamin d deficiency July 05, 2024 8:12 am Chronic fatigue July 05, 2024 8:12a m Depression July 05, 2024 8:12a m Peripheral vestibulopathy July 05, 2024 8:12am Vertigo July 05, 2024 8:12a m Fatigue August 03, 2024 8:29 am Chief Complaint Admit Date PERSISTENT VERTIGO May 25, 2024 2:14 pm PERSISTENT VERTIGO May 26, 2024 1:42 pm Vertigo July 05, 2024 8:12a m NECK PAIN, PARASTHESIAS IN HANDS July 5t h2024 4:09pm E-ORDER August 03, 2024 8:08 am B12 inject August 03, 2024 8:29 am 2 M FU August 29, 2024 2:49p m Reason for Visit Admit Date Vertigo May 25, 2024 2:14 pm Anxiety July 05, 2024 8:12a m Disequilibrium July 05, 2024 8:12a m Neck pain July 05, 2024 8:12a m Paresthesias July 05, 2024 8:12a m Vitamin d deficiency July 05, 2024 8:12 am Chronic fatigue July 05, 2024 8:12a m Depression July 05, 2024 8:12a m Peripheral vestibulopathy July 05, 2024 8:12am Vertigo July 05, 2024 8:12a m Fatigue August 03, 2024 8:29 am Low back pain August 29, 2024 2:49p m Right lumbar radiculopathy August 29 2:49pm Chronic fatigue August 29, 2024 2:49p m Chief Complaint Admit Date Vertigo July 05, 2024 8:12a m NECK PAIN, PARASTHESIAS IN HANDS July 4:09pm E-ORDER August 03, 2024 8:08 am B12 inject August 03, 2024 8:29 am 2 M FU August 29, 2024 2:49p m Reason for Visit Admit Date Anxiety July 05, 2024 8:12a m Disequilibrium July 05, 2024 8:12a m Neck pain July 05, 2024 8:12a m Paresthesias July 05, 2024 8:12a m Vitamin d deficiency July 05, 2024 8:12 am Chronic fatigue July 05, 2024 8:12a m Depression July 05, 2024 8:12a m Peripheral vestibulopathy July 05, 2024 8:12am Vertigo July 05, 2024 8:12a m Fatigue August 03, 2024 8:29 am Anxiety August 29, 2024 2:49p m Disequilibrium August 29, 2024 2:49p m Low back pain August 29, 2024 2:49p m Right lumbar radiculopathy August 29 2:49pm Vitamin d deficiency August 29, 2024 2:49 pm Chronic fatigue August 29, 2024 2:49p m Depression August 29, 2024 2:49p m Peripheral vestibulopathy August 29, 2024 2:49pm Vertigo August 29, 2024 2:49p m Reason for Referral Specialty Diagnoses / Procedures Referred By Myles t Referred To Contact Rheumatology Diagnoses Chronic pain of both knees Primary osteoarthritis of both knees CHANDANA positive Procedures CONSULT TO RHEUM/IMMUN DISEASE OFFICE/OUTPATIENT [facility] 60 MINUTES Ramirez Thomas MD [address] [place] [address] Referral ID Status Reason Start Date Expiration Date Visits Requested Visits Authorized [id number] Authorized PCP Requested Referral 08/11/2023 08/10/2024 1 1 Additional Source Comments Source Comments (unrecognize d section and content) In the event this informatio n is protected by the Federal Confidentiality of Alcohol and Drug Abuse Patient Records regulations: The Federal rules restrict any use of the information to criminally investigate or prosecute any alcohol or drug abuse patient.[facility] the event this information is protected by the Federal Confidentiality of Alcohol and Drug Abuse Patient Records regulations: The Federal rules restrict any use of the information to criminally investigate or prosecute any alcohol or drug abuse patient.[facility] HospitalIn the event this information is protected by the Federal Confidentiality of Alcohol and Drug Abuse Patient Records regulations: The Federal rules restrict any use of the information to criminally investigate or prosecute any alcohol or drug abuse patient.[facility] HospitalIn the event this information is protected by the Federal Confidentiality of Alcohol and Drug Abuse Patient Records regulations: The Federal rules restrict any use of the information to criminally investigate or prosecute any alcohol or drug abuse patient.[facility] HospitalIn the event this information is protected by the Federal Confidentiality of Alcohol and Drug Abuse Patient Records regulations: The Federal rules restrict any use of the information to criminally investigate or prosecute any alcohol or drug abuse patient.[facility] HospitalIn the event this information is protected by the Federal Confidentiality of Alcohol and Drug Abuse Patient Records regulations: The Federal rules restrict any use of the information to criminally investigate or prosecute any alcohol or drug abuse patient.[facility] HospitalIn the event this information is protected by the Federal Confidentiality of Alcohol and Drug Abuse Patient Records regulations: The Federal rules restrict any use of the information to criminally investigate or prosecute any alcohol or drug abuse patient.[facility] HospitalIn the event this information is protected by the Federal Confidentiality of Alcohol and Drug Abuse Patient Records regulations: The Federal rules restrict any use of the information to criminally investigate or prosecute any alcohol or drug abuse patient.[facility] HospitalIn the event this information is protected by the Federal Confidentiality of Alcohol and Drug Abuse Patient Records regulations: The Federal rules restrict any use of the information to criminally investigate or prosecute any alcohol or drug abuse patient.[facility] HospitalIn the event this information is protected by the Federal Confidentiality of Alcohol and Drug Abuse Patient Records regulations: The Federal rules restrict any use of the information to criminally investigate or prosecute any alcohol or drug abuse patient.[facility] HospitalIn the event this information is protected by the Federal Confidentiality of Alcohol and Drug Abuse Patient Records regulations: The Federal rules restrict any use of the information to criminally investigate or prosecute any alcohol or drug abuse patient.[facility] HospitalIn the event this information is protected by the Federal Confidentiality of Alcohol and Drug Abuse Patient Records regulations: The Federal rules restrict any use of the information to criminally investigate or prosecute any alcohol or drug abuse patient.[facility] HospitalIn the event this information is protected by the Federal Confidentiality of Alcohol and Drug Abuse Patient Records regulations: The Federal rules restrict any use of the information to criminally investigate or prosecute any alcohol or drug abuse patient.[facility] HospitalIn the event this information is protected by the Federal Confidentiality of Alcohol and Drug Abuse Patient Records regulations: The Federal rules restrict any use of the information to criminally investigate or prosecute any alcohol or drug abuse patient.[facility] HospitalIn the event this information is protected by the Federal Confidentiality of Alcohol and Drug Abuse Patient Records regulations: The Federal rules restrict any use of the information to criminally investigate or prosecute any alcohol or drug abuse patient.[facility] HospitalIn the event this information is protected by the Federal Confidentiality of Alcohol and Drug Abuse Patient Records regulations: The Federal rules restrict any use of the information to criminally investigate or prosecute any alcohol or drug abuse patient.[facility] HospitalIn the event this information is protected by the Federal Confidentiality of Alcohol and Drug Abuse Patient Records regulations: The Federal rules restrict any use of the information to criminally investigate or prosecute any alcohol or drug abuse patient.[facility] HospitalIn the event this information is protected by the Federal Confidentiality of Alcohol and Drug Abuse Patient Records regulations: The Federal rules restrict any use of the information to criminally investigate or prosecute any alcohol or drug abuse patient.[facility] HospitalIn the event this information is protected by the Federal Confidentiality of Alcohol and Drug Abuse Patient Records regulations: The Federal rules restrict any use of the information to criminally investigate or prosecute any alcohol or drug abuse patient.[facility] HospitalIn the event this information is protected by the Federal Confidentiality of Alcohol and Drug Abuse Patient Records regulations: The Federal rules restrict any use of the information to criminally investigate or prosecute any alcohol or drug abuse patient.[facility] HospitalIn the event this information is protected by the Federal Confidentiality of Alcohol and Drug Abuse Patient Records regulations: The Federal rules restrict any use of the information to criminally investigate or prosecute any alcohol or drug abuse patient.[facility] HospitalIn the event this information is protected by the Federal Confidentiality of Alcohol and Drug Abuse Patient Records regulations: The Federal rules restrict any use of the information to criminally investigate or prosecute any alcohol or drug abuse patient.[facility] HospitalIn the event this information is protected by the Federal Confidentiality of Alcohol and Drug Abuse Patient Records regulations: The Federal rules restrict any use of the information to criminally investigate or prosecute any alcohol or drug abuse patient.[facility] HospitalIn the event this information is protected by the Federal Confidentiality of Alcohol and Drug Abuse Patient Records regulations: The Federal rules restrict any use of the information to criminally investigate or prosecute any alcohol or drug abuse patient.[facility] HospitalIn the event this information is protected by the Federal Confidentiality of Alcohol and Drug Abuse Patient Records regulations: The Federal rules restrict any use of the information to criminally investigate or prosecute any alcohol or drug abuse patient.[facility] HospitalIn the event this information is protected by the Federal Confidentiality of Alcohol and Drug Abuse Patient Records regulations: The Federal rules restrict any use of the information to criminally investigate or prosecute any alcohol or drug abuse patient.[facility] HospitalIn the event this information is protected by the Federal Confidentiality of Alcohol and Drug Abuse Patient Records regulations: The Federal rules restrict any use of the information to criminally investigate or prosecute any alcohol or drug abuse patient.[facility] HospitalIn the event this information is protected by the Federal Confidentiality of Alcohol and Drug Abuse Patient Records regulations: The Federal rules restrict any use of the information to criminally investigate or prosecute any alcohol or drug abuse patient.[facility] HospitalIn the event this information is protected by the Federal Confidentiality of Alcohol and Drug Abuse Patient Records regulations: The Federal rules restrict any use of the information to criminally investigate or prosecute any alcohol or drug abuse patient.[facility] HospitalIn the event this information is protected by the Federal Confidentiality of Alcohol and Drug Abuse Patient Records regulations: The Federal rules restrict any use of the information to criminally investigate or prosecute any alcohol or drug abuse patient.[facility] HospitalIn the event this information is protected by the Federal Confidentiality of Alcohol and Drug Abuse Patient Records regulations: The Federal rules restrict any use of the information to criminally investigate or prosecute any alcohol or drug abuse patient.[facility] HospitalIn the event this information is protected by the Federal Confidentiality of Alcohol and Drug Abuse Patient Records regulations: The Federal rules restrict any use of the information to criminally investigate or prosecute any alcohol or drug abuse patient.[facility] HospitalIn the event this information is protected by the Federal Confidentiality of Alcohol and Drug Abuse Patient Records regulations: The Federal rules restrict any use of the information to criminally investigate or prosecute any alcohol or drug abuse patient.[facility] HospitalIn the event this information is protected by the Federal Confidentiality of Alcohol and Drug Abuse Patient Records regulations: The Federal rules restrict any use of the information to criminally investigate or prosecute any alcohol or drug abuse patient.[facility] HospitalIn the event this information is protected by the Federal Confidentiality of Alcohol and Drug Abuse Patient Records regulations: The Federal rules restrict any use of the information to criminally investigate or prosecute any alcohol or drug abuse patient.[facility] HospitalIn the event this information is protected by the Federal Confidentiality of Alcohol and Drug Abuse Patient Records regulations: The Federal rules restrict any use of the information to criminally investigate or prosecute any alcohol or drug abuse patient.[facility] HospitalIn the event this information is protected by the Federal Confidentiality of Alcohol and Drug Abuse Patient Records regulations: The Federal rules restrict any use of the information to criminally investigate or prosecute any alcohol or drug abuse patient.[facility] HospitalIn the event this information is protected by the Federal Confidentiality of Alcohol and Drug Abuse Patient Records regulations: The Federal rules restrict any use of the information to criminally investigate or prosecute any alcohol or drug abuse patient.[facility] HospitalIn the event this information is protected by the Federal Confidentiality of Alcohol and Drug Abuse Patient Records regulations: The Federal rules restrict any use of the information to criminally investigate or prosecute any alcohol or drug abuse patient.[facility] HospitalIn the event this information is protected by the Federal Confidentiality of Alcohol and Drug Abuse Patient Records regulations: The Federal rules restrict any use of the information to criminally investigate or prosecute any alcohol or drug abuse patient.[facility] HospitalIn the event this information is protected by the Federal Confidentiality of Alcohol and Drug Abuse Patient Records regulations: The Federal rules restrict any use of the information to criminally investigate or prosecute any alcohol or drug abuse patient.[facility] HospitalIn the event this information is protected by the Federal Confidentiality of Alcohol and Drug Abuse Patient Records regulations: The Federal rules restrict any use of the information to criminally investigate or prosecute any alcohol or drug abuse patient.[facility] Reason for Visit (unrecogniz ed section and content) Reason Comments PT Eval Specialty Diagnoses / Procedures Referred By Contac t Referred To Contact OCCUPATIONAL THERAPY Diagnoses Cognitive impairment Procedures CONSULT TO AUTOMOTIVE WARRANTY ADMINISTRATOR OCCUPATIONAL THERAPY EVAL HIGH COMPLEX 60 MINS PHYSICAL THERAPY EVALUATION HIGH COMPLEX [address] DO [address] [place] [address] Phone: tel: fax: Jennifer Claritza, OT/L, OTD [address] [place] [address] Phone: tel: Referral ID Status Reason Start Date Expiration Date Visits Requested Visits Authorized [id number] Authorized Auto-Generat ed Referral 02/23/2024 02/21/2025 50 [...] INJECT W/ LEFT VENTRICULOGRAPHY IMAGE SUPERVISION/INTERPRETATION [employer] [address] [place] [address] Referral ID Status Reason Start Date Expiration Date Visits Re quested Visits Authorized [id number] 1 1 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 Reason [...] Ramirez Thomas MD [address] [place] [address] Referral ID Status Reason Start Date Expiration Date V isits Requested Visits Authorized [id number] Closed PCP Requested Referral 08/11/2023 08/10/2024 1 1 Reason Comments Follow Up Reason Onset Date Comments Refill Request 01/06/2024 Reason Comments Cardiology Follow Up Coronary artery dis ease Reason Comments OT EVAL Care Teams (unrecognized sec tion and content) Team Status: Active Member Role Status Dates Jess Bentonder VSC, WORSHIP LEADER-C Primary Care Provider Active Team Status: Inactive Member Role Status Dates Jess Rosas VSC, WORSHIP LEADER-C Primary Care Provider Active Start: February 24, 2024 End: February 24, 2024 Jess Rosas VSC, WORSHIP LEADER-C Attending Provider Active S tart: February 24, 2024 End: February 24, 2024 Jess Rosas VSC, WORSHIP LEADER-C Referring Provider Active S tart: February 24, 2024 End: February 24, 2024 Team Status: Inactive Member Role Status Dates Jess Rosas VSC, WORSHIP LEADER-C Primary Care Provider Active Start: 2024 End: 2024 Jess Rosas VSC, WORSHIP LEADER-C Attending Provider Active S tart: 2024 End: 2024 Team Status: Active Member Role Status Dates Jess Rosas VSC, WORSHIP LEADER-C Primary Care Provider Active Start: May 25, 2024 Dr. Chucky Maya DO Referring Provider Active Start : May 25, 2024 Dr. Chucky Maya DO Emergency Provider Active Start : May 25, 2024 Dr. Joi Woodson MD Admit Provider Active St art: May 25, 2024 Dr. Joi Woodson MD Attending Provider Active Start: May 25, 2024 Skiver Blockers Relationship Specialty Start Date End Date Quang Hanson MD [address] [place] [address] PCP - General Internal Medicine 09/03/20 Kalin Alonso MD [address] [place] [id number] Home Care Physician Thoracic Surgery 10/24/20 Kaycee Ramirez, TECHNOLOGY PROGRAM MANAGER.[employer] [address] [place] [address] Referring Vascular Surgery 10/29/20 Felicitas Chavez MD [address] [place] [address] Cardiology 11/26/20 Skiver Blockers Relationship Specialty Start Date End Date Quang Hanson MD [address] [place] [address] PCP - General Internal Medicine 09/03/20 Kalin Alonso MD [address] [place] [address] [place] [address] Home Care Physician Thoracic Surgery 10/24/20 aKycee Ramirez, TECHNOLOGY PROGRAM MANAGER.[employer]CH[employer]ECT [address] [place] [address] Referring Vascular Surgery 10/29/20 Felicitas Chavez MD [address] [place] [address] Cardiology 11/26/20 Skiver Blockers Relationship Specialty Start Date End Date Quang Hanson MD [address] [place] [address] PCP - General Internal Medicine 09/03/20 Kalin Alonso MD [address] [place] [address] [place] [address] Home Care Physician Thoracic Surgery 10/24/20 Kaycee Ramirez, TECHNOLOGY PROGRAM MANAGER.[employer]CH[employer]ECT [address] [place] [address] Referring Vascular Surgery 10/29/20 Felicitas Chavez MD [address] [place] [address] Cardiology 11/26/20 Skiver Blockers Relationship Specialty Start Date End Date Quang Hanson MD [address] [place] [address] PCP - General Internal Medicine 09/03/20 Kalin Alonso MD [address] [place] [address] [place] [address] Home Care Physician Thoracic Surgery 10/24/20 [facility] Norman[facility] funk, TECHNOLOGY PROGRAM MANAGER.[employer] [address] [place] [address] Referring Vascular Surgery 10/29/20 Felicitas Chavez MD [address] [place] [address] Cardiology 11/26/20 Skiver Blockers Relationship Specialty Start Date End Date Quang Hanson MD [address] [facility] [address] [place] [address] PCP - General Internal Medicine 09/03/20 Kalin Alonso MD [address] [place] [address] [place] [address] Home Care Physician Thoracic Surgery 10/24/20 [facility] hospitalKaycee saldana, TECHNOLOGY PROGRAM MANAGER.[employer] [address] [place] [address] Referring Vascular Surgery 10/29/20 Felicitas Chavez MD [address] [place] [address] Cardiology 11/26/20 Skiver Blockers Relationship Specialty Start Date End Date Quang Hanson MD [address] [place] [address] PCP - General Internal Medicine 09/03/20 Kalin Alonso MD [address] [place] [address] [place] [address] Home Care Physician Thoracic Surgery 10/24/20 [facility]e, TECHNOLOGY PROGRAM MANAGER.[employer] [address] [place] [address] Referring Vascular Surgery 10/29/20 Felicitas Chavez MD [address] [place] [address] Cardiology 11/26/20 Skiver Blockers Relationship Specialty Start Date End Date Quang Hanson MD [address] [place] [address] PCP - General Internal Medicine 09/03/20 Kalin Alonso MD [address] [place] [address] [place] [address] Home Care Physician Thoracic Surgery 10/24/20 [facility], TECHNOLOGY PROGRAM MANAGER.[employer] ARCH[employer]ECT [address] [place] [address] Referring Vascular Surgery 10/29/20 Felicitas Chavez MD [address] [place] [address] Cardiology 11/26/20 Skiver Blockers Relationship Specialty Start Date End Date Quang Hanson MD [address] [place] [address] PCP - General Internal Medicine 09/03/20 Kalin Alonso MD [address] [place] [address] [place] [address] Home Care Physician Thoracic Surgery 10/24/20 Kaycee Ramirez, TECHNOLOGY PROGRAM MANAGER.[employer] ARCH[employer]ECT [address] [place] [address] Referring Vascular Surgery 10/29/20 Felicitas Chavez MD [address] [place] [address] Cardiology 11/26/20 Skiver Blockers Relationship Specialty Start Date End Date Quang Hanson MD [address] [place] [address] PCP - General Internal Medicine 09/03/20 Kalin Alonso MD [address] [place] [address] [place] [address] Home Care Provider Thoracic Surgery 10/24/20 [facility] funk, TECHNOLOGY PROGRAM MANAGER.[employer]ECT [address] [place] [address] Referring Vascular Surgery 10/29/20 Felicitas Chavez MD [address] [place] [address] Cardiology 11/26/20 Skiver Blockers Relationship Specialty Start Date End Date Quang Hanson MD [address] [place] [address] PCP - General Internal Medicine 09/03/20 Kalin Alonso MD [address] [place] [address] [place] [address] Home Care Provider Thoracic Surgery 10/24/20 Kaycee Ramirez, TECHNOLOGY PROGRAM MANAGER.[employer] ARCH[employer]ECT [address] [place] [address] Referring Vascular Surgery 10/29/20 Felicitas Chavez MD [address] [place] [address] Cardiology 11/26/20 Skiver Blockers Relationship Specialty Start Date End Date Quang Hanson MD [address] [place] [address] PCP - General Internal Medicine 09/03/20 Kalin Alonso MD [address] [place] [address] [place] [address] Home Care Provider Thoracic Surgery 10/24/20 Kaycee Ramirez, TECHNOLOGY PROGRAM MANAGER.[employer] ARCHITECT [address] [place] [address] Referring Vascular Surgery 10/29/20 Felicitas Chavez MD [address] [place] [address] Cardiology 11/26/20 Skiver Blockers Relationship Specialty Start Date End Date Quang Hanson MD [address] [facility] [address] [place] [address] PCP - General Internal Medicine 09/03/20 Kalin Alonso MD [address] [place] [address] [place] [address] Home Care Provider Thoracic Surgery 10/24/20 Kaycee Ramirez, TECHNOLOGY PROGRAM MANAGER.[employer] ARCH[employer]ECT [address] [place] [address] [place] [address] Referring Vascular Surgery 10/29/20 Felicitas Chavez MD [address] [place] [address] Cardiology 11/26/20 Team Status: Active Member Role Status Dates Dr. Quang Hanson MD Family Provider Active Dr. Quang Hanson MD Primary Care Provider Active Team Status: Inactive Member Role Status Dates Dr. Quang Hanson MD Primary Care Provider, Refer ring Provider Active Jess Rosas WORSHIP LEADER, WORSHIP LEADER-C Attending Provider Active Team Status: Inactive Member Role Status Dates Dr. Quang Hanson MD Primary Care Provider Active Jess Rosas WORSHIP LEADER, WORSHIP LEADER-C Attending Provider, Referring Prov ider Active Team Status: Inactive Member Role Status Dates Dr. Quang Hanson MD Primary Care Provider Active Tiffanie Teach , WORSHIP LEADER-C Attending Provider, Referring Pro vider Active Team Status: Inactive Member Role Status Dates Dr. Quang Hanson MD Primary Care Provider, Refer ring Provider Active Felix HERNANDEZ, PA Attending Provider Active Team Status: Inactive Member Role Status Dates Dr. Quang Hanson MD Primary Care Provider Active Dr. Alex Kapadia MD Emergency Provider Active Skiver Blockers Relationship Specialty Start Date End Date Quang Hanson MD [address] [place] [address] PCP - General Internal Medicine 09/03/20 Kalin Alonso MD [address] [place] [address] [place] [address] Home Care Provider Thoracic Surgery 10/24/20 Kaycee Ramirez APRN.[employer] ARCHITECT [address] [place] [address] Referring Vascular Surgery 10/29/20 Felicitas Chavez MD [address] [place], [place] [id number] Cardiology 11/26/20 Skiver Blockers Relationship Specialty Start Date End Date Quang Hanson MD [address] [facility] [address] [place] [address] 163- PCP - General Internal Medicine 09/03/20 Kalin Alonso MD [address] [place] [address] [place] [address] Home Care Provider Thoracic Surgery 10/24/20 Kaycee Ramirez APRN.[employer] ARCHITECT [address] [place] [address] [place] [address] Referring Vascular Surgery 10/29/20 Felicitas Chavez MD [address] [place], [place] [address] Cardiology 11/26/20 Skiver Blockers Relationship Specialty Start Date End Date Quang Hanson MD [address] [facility] [address] [place] [address] PCP - General Internal Medicine 09/03/20 Kalin Alonso MD [address] [place] [address] [place] [address] Home Care Provider Thoracic Surgery 10/24/20 Kaycee Ramirez, TECHNOLOGY PROGRAM MANAGER.[employer] [address] [place] [address] [place] [phone] Referring Vascular Surgery 10/29/20 Felicitas Chavez MD [address] [place], [place] [id number] Cardiology 11/26/20 Team Status: Inactive Member Role Status Dates Dr. Quang Hanson MD Primary Care Provider Active SCOTT POLK Attending Provider, Referring Provider Ac tive Skiver Blockers Relationship Specialty Start Date End Date Quang Hanson MD [address] [facility] [address] [place] [address] PCP - General Internal Medicine 09/03/20 Kalin Alonso MD [address] [place] [address] [place] [address] Home Care Provider Thoracic Surgery 10/24/20 Kaycee Riley, TECHNOLOGY PROGRAM MANAGER.[employer] [address] [place] [phone]- Referring Vascular Surgery 10/29/20 Felicitas Chavez MD [address] [place] [address] Cardiology 11/26/20 Skiver Blockers Relationship Specialty Start Date End Date Quang Hanson MD [address] [address] PCP - General Internal Medicine 09/03/20 Kalin Alonso MD [address] [address] [place] [address] Home Care Provider Thoracic Surgery 10/24/20 Kaycee Riley, TECHNOLOGY PROGRAM MANAGER.[employer] [address] [place] [address] Referring Vascular Surgery 10/29/20 Felicitas hCavez MD [address] [place] [address] Cardiology 11/26/20 Skiver Blockers Relationship Specialty Start Date End Date Quang Hanson MD [address] [facility] [address] [place] [address] PCP - General Internal Medicine 09/03/20 Kalin Alonso MD [address] [place] [address] [place] [address] Home Care Provider Thoracic Surgery 10/24/20 Kaycee Riley, TECHNOLOGY PROGRAM MANAGER.[employer] [address] [place], [place] [phone]- Referring Vascular Surgery 10/29/20 Felicitas Chavez MD [address] [place], [place] [phone] Cardiology 11/26/20 Skiver Blockers Relationship Specialty Start Date End Date Quang Hanson MD [address] [facility] [address] [place] [address] PCP - General Internal Medicine 09/03/20 Kalin Alonso MD [address] [place] [address] [place] [phone] Home Care Provider Thoracic Surgery 10/24/20 Kaycee Riley, TECHNOLOGY PROGRAM MANAGER.[employer] [address] [place] [address] Referring Vascular Surgery 10/29/20 Felicitas Chavez MD [address] [place] [address] Cardiology 11/26/20 Skiver Blockers Relationship Specialty Start Date End Date Quang Hanson MD [address] [place] [phone] PCP - General Internal Medicine 09/03/20 Kalin Alonso MD [address] [place] [address] [place] [phone] Home Care Provider Thoracic Surgery 10/24/20 Kaycee Riley APRN.[employer] [address] [place], [place] [phone]- Referring Vascular Surgery 10/29/20 Felicitas Chavez MD [address] [place] [address] Cardiology 11/26/20 Skiver Blockers Relationship Specialty Start Date End Date Quang Hanson MD [address] [place] [phone] PCP - General Internal Medicine 09/03/20 Kalin Alonso MD [address] [place] [address] [place] [phone] Home Care Provider Thoracic Surgery 10/24/20 Kaycee Riley APRN.[employer] [address] [place] [address] Referring Vascular Surgery 10/29/20 Felicitas Chavez MD [address] [place] [address] Cardiology 11/26/20 Skiver Blockers Relationship Specialty Start Date End Date Quang Hanson MD [address] [place] [address] PCP - General Internal Medicine 09/03/20 Kalin Alonso MD [address] [place] [address] [place] [address] Home Care Provider Thoracic Surgery 10/24/20 Kaycee Riley APRN.[employer] [address] [place] [address] Referring Vascular Surgery 10/29/20 Felicitas Chavez MD [address] [place] [address] Cardiology 11/26/20 Skiver Blockers Relationship Specialty Start Date End Date Quang Hanson MD [address] [facility] [address] [place] [address] PCP - General Internal Medicine 09/03/20 Kalin Alonso MD [address] [address] [place] [address] Home Care Provider Thoracic Surgery 10/24/20 Kaycee Riley APRN.[employer] [address] [place] [address] Referring Vascular Surgery 10/29/20 Felicitas Chavez MD [address] [place] [address] Cardiology 11/26/20 Skiver Blockers Relationship Specialty Start Date End Date Quang Hanson MD [address] [facility] [address] [place] [phone] PCP - General Internal Medicine 09/03/20 Kalin Alonso MD [address] [place] [address] [place] [phone] Home Care Provider Thoracic Surgery 10/24/20 Kaycee Riley APRN.[employer] [address] [place] [address] [place] [address] Referring Vascular Surgery 10/29/20 Felicitas Chavez MD [address] [place], [place] [phone] Cardiology 11/26/20 Skiver Blockers Relationship Specialty Start Date End Date Quang Hanson MD [address] [facility] [address] [place] [phone] PCP - General Internal Medicine 09/03/20 Kalin Alonso MD [address] [place] [address] [place] [address] Home Care Provider Thoracic Surgery 10/24/20 Kaycee Riley, MARCUS.[employer] [address] [place] [address] [place] [address] Referring Vascular Surgery 10/29/20 Carlito Luna, RN [address] [place], [place] [phone] Agricultural Engineering Technicians Post Acute Care 10/30/20 12/01/20 Skiver Blockers Relationship Specialty Start Date End Date Quang Hanson MD [address] [facility] [address] [place] [phone] PCP - General Internal Medicine 09/03/20 Kalin Alonso MD [address] [place] [address] [place] [address] Home Care Provider Thoracic Surgery 10/24/20 Kaycee Riley, MARCUS.[employer] [address] [place] [address] [place] [address] Referring Vascular Surgery 10/29/20 Felicitas Chavez MD [address] [place], [place] [phone] Cardiology 11/26/20 Skiver Blockers Relationship Specialty Start Date End Date Quang Hanson MD [address] [facility] [address] [place] [address] PCP - General Internal Medicine 09/03/20 Kalin Alonso MD [address] [place] [address] [place] [address] Home Care Provider Thoracic Surgery 10/24/20 Kaycee Riley, TECHNOLOGY PROGRAM MANAGER.[employer] [address] [place] [address] [place] [address] Referring Vascular Surgery 10/29/20 Felicitas Chavez MD [address] [place], [place] [phone] Cardiology 11/26/20 Team Status: Active Member Role Status Dates Dr. Quang Hanson MD Family Provider Active Jess THOMAS WORSHIP LEADER-C Primary Care Provider Active Team Status: Inactive Member Role Status Dates Jess THOMAS WORSHIP LEADER-C Primary Care Provider Active Start: May 25, [...] 2024 End: May 26, 2024 Dr. Иван Rutldege MD Other Provider Active Sta rt: May [...] Active Member Role Status Dates Jess Deisy [facility], WORSHIP LEADER-C Primary Care Provider Active Start: May 26, 2024 Dr. Tom Medina MD Attending Provider Active S tart: May 26, 2024 Team Status: Active Member Role Status Dates Jess Bentonder [facility], WORSHIP LEADER-C Primary Care Provider Active Start: May 26, [...] May 26, 2024 Dr. Marcos Lovelace , DO Attending Provider Active Start: May 26, 2024 Dr. Marcos Lovelace , DO Other Provider Active Start: May 26, 2024 Skiver Blockers Relationship Specialty Start Date End Date Jess Rosas CNP [address] [place] [address] PCP - General Family Medicine 06/06/24 Kalin Alonso MD [address] [place] [address] [place] [phone] Home Care Provider Thoracic Surgery 10/24/20 Kaycee Riley, TECHNOLOGY PROGRAM MANAGER.[employer] AR[employer]ECT [address] [place] [address] [place] [address] Referring Vascular Surgery 10/29/20 Felicitas Chavez MD [address] [place], [place] [phone] Cardiology 11/26/20 Skiver Blockers Relationship Specialty Start Date End Date Jess Rosas CNP [address] [place] [address] PCP - General Family Medicine 06/06/24 Kalin Alonso MD [address] [place] [address] [place] [phone] Home Care Provider Thoracic Surgery 10/24/20 Kaycee Riley, TECHNOLOGY PROGRAM MANAGER.[employer] ARCH[employer]ECT [address] [place] [address] [place] [address] Referring Vascular Surgery 10/29/20 Felicitas Chavez MD [address] [place] [address] Cardiology 11/26/20 Skiver Blockers Relationship Specialty Start Date End Date Jess Rosas CNP [address] [place] [address] PCP - General Family Medicine 06/06/24 Kalin Alonso MD Home Care Provider Thoracic Surgery 10/24/20 Kaycee Riley, TECHNOLOGY PROGRAM MANAGER.[employer] ARCHITECT Referring Vascular Surgery 10/29/20 Felicitas Chavez MD [address] [place] [address] Cardiology 11/26/20 Skiver Blockers Relationship Specialty Start Date End Date Jess Rosas CNP [address] [place] [address] PCP - General Family Medicine 06/06/24 Kalin Alonso MD Home Care Provider Thoracic Surgery 10/24/20 Kaycee Riley, TECHNOLOGY PROGRAM MANAGER.[employer] ARCHITECT Referring Vascular Surgery 10/29/20 Felicitas Chavez MD [address] [place] [address] Cardiology 11/26/20 Team Status: Active Member Role Status Dates Jess Bentonder [facility], WORSHIP LEADER-C Primary Care Provider Active Start: May 26, [...] Inactive Member Role Status Dates Jess THOMAS, WORSHIP LEADER-C Primary Care Provider Active Start: June 20, 2024 End: June 20, 2024 Faheem THOMAS WORSHIP LEADER-C Attending Provider Active Start: June 20, 2024 End: June 20, 2024 Team Status: Inactive Member Role Status Dates Jess THOMAS, WORSHIP LEADER-C Primary Care Provider Active Start: July 05, 2024 End: July 05, 2024 Jess THOMAS WORSHIP LEADER-C Referring Provider Active S tart: July 05, 2024 End: July 05, 2024 Dr. Terrell Quiles MD Attending Provider Active Start: July 05, 2024 End: July 05, 2024 Team Status: Inactive Member Role Status Dates Jess Deisy VSC, WORSHIP LEADER-C Primary Care Provider Active Start: July 27, 2024 End: July 27, 2024 Dr. Terrell Quiles MD Attending Provider Active Start: July 27, 2024 End: July 27, 2024 Dr. Terrell Quiles MD Referring Provider Active Start: July 27, 2024 End: July 27, 2024 Team Status: Active Member Role Status Dates Jess AYALAC, WORSHIP LEADER-C Primary Care Provider Active Start: July 27, 2024 Dr. Terrell Quiles MD Attending Provider Active Start: July 27, 2024 Dr. Terrell Quiles MD Referring Provider Active Start: July 27, 2024 Team Status: Active Member Role Status Dates Jess THOMAS, WORSHIP LEADER-C Primary Care Provider Active Start: August 03, 2024 Dr. Terrell Quiles MD Attending Provider Active Start: August 03, 2024 Dr. Terrell Quiles MD Referring Provider Active Start: August 03, 2024 Team Status: Inactive Member Role Status Dates Jess Rosas VSC, WORSHIP LEADER-C Primary Care Provider Active Start: August 03, 2024 End: August 03, 2024 Jess AYALAC, WORSHIP LEADER-C Referring Provider Active S tart: August 03, 2024 End: August 03, 2024 Dr. Terrell Quiles MD Attending Provider Active Start: August 03, 2024 End: August 03, 2024 Team Status: Inactive Member Role Status Dates Jess Deisy VSC, WORSHIP LEADER-C Primary Care Provider Active Start: August 03, 2024 End: August 03, 2024 Dr. Terrell Quiles MD Attending Provider Active Start: August 03, 2024 End: August 03, 2024 Dr. Terrell Quiles MD Referring Provider Active Start: August 03, 2024 End: August 03, 2024 Skiver Blockers Relationship Specialty Start Date End Date Jess Rosas CNP [address] [place] [address] PCP - General Family Medicine 06/06/24 Kalin Alonso MD Home Care Provider Thoracic Surgery 10/24/20 Kaycee Riley, TECHNOLOGY PROGRAM MANAGER.[employer] ARCHITECT Referring Vascular Surgery 10/29/20 Felicitas Chavez MD [address] [place] [address] Cardiology 11/26/20 Team Status: Active Member Role/Relationship Status Dates Jess Rosas VSC, WORSHIP LEADER-C Primary Care Provider Active Team Status: Inactive Member Role/Relationship Status Dates Jess Rosas VSC, WORSHIP LEADER-C Primary Care Provider Active Start: 2024 End: 2024 Jess THOMAS, WORSHIP LEADER-C Attending Provider Active S tart: 2024 End: 2024 Team Status: Inactive Member Role/Relationship Status Dates Jess Rosas VSC, WORSHIP LEADER-C Primary Care Provider Active Start: May 25, [...] May 25, 2024 End: May 26, 2024 aRvi Fonseca MD Other Provider Active Start: May 25, 2024 End: May 26, 2024 Dr. Marcos Lovelace DO Attending Provider Active Start: May 25, 2024 End: May 26, 2024 Team Status: Active Member Role/Relationship Status Dates Jess THOMAS, WORSHIP LEADER-C Primary Care Provider Active Start: May 26, 2024 Dr. Tom Medina MD Attending Provider Active S tart: May 26, 2024 Team Status: Active Member Role/Relationship Status Dates Jess THOMAS, WORSHIP LEADER-C Primary Care Provider Active Start: May 26, [...] May 26, 2024 Team Status: Inactive Member Role/Relationship Status Dates Jess THOMAS, WORSHIP LEADER-C Primary Care Provider Active Start: June 20, 2024 End: June 20, 2024 Faheem THOMAS, WORSHIP LEADER-C Attending Provider Active Start: June 20, 2024 End: June 20, 2024 Team Status: Inactive Member Role/Relationship Status Dates Jess Rosas VSC, WORSHIP LEADER-C Primary Care Provider Active Start: July 05, 2024 End: July 05, 2024 Jess Deisy VSC, WORSHIP LEADER-C Referring Provider Active S tart: July 05, 2024 End: July 05, 2024 Dr. Terrell Quiles MD Attending Provider Active Start: July 05, 2024 End: July 05, 2024 Team Status: Inactive Member Role/Relationship Status Dates Jess Deisy VSC, WORSHIP LEADER-C Primary Care Provider Active Start: July 27, 2024 End: July 27, 2024 Dr. Terrell Quiles MD Attending Provider Active Start: July 27, 2024 End: July 27, 2024 Dr. Terrell Quiles MD Referring Provider Active Start: July 27, 2024 End: July 27, 2024 Team Status: Inactive Member Role/Relationship Status Dates Jess Rosas VSC, WORSHIP LEADER-C Primary Care Provider Active Start: July 27, 2024 End: July 27, 2024 Dr. Terrell Quiles MD Attending Provider Active Start: July 27, 2024 End: July 27, 2024 Dr. Terrell Quiles MD Referring Provider Active Start: July 27, 2024 End: July 27, 2024 Team Status: Inactive Member Role/Relationship Status Dates Jess Rosas VSC, WORSHIP LEADER-C Primary Care Provider Active Start: August 03, 2024 End: August 03, 2024 Dr. Terrell Quiles MD Attending Provider Active Start: August 03, 2024 End: August 03, 2024 Dr. Terrell Quiles MD Referring Provider Active Start: August 03, 2024 End: August 03, 2024 Team Status: Inactive Member Role/Relationship Status Dates Jess Deisy VSC, WORSHIP LEADER-C Primary Care Provider Active Start: August 03, 2024 End: August 03, 2024 Jess Deisy VSC, WORSHIP LEADER-C Referring Provider Active S tart: August 03, 2024 End: August 03, 2024 Dr. Terrell uQiles MD Attending Provider Active Start: August 03, 2024 End: August 03, 2024 Team Status: Inactive Member Role/Relationship Status Dates Jess Rosas VSC, WORSHIP LEADER-C Primary Care Provider Active Start: August 29, 2024 End: August 29, 2024 Jess Rosas VSC, WORSHIP LEADER-C Referring Provider Active S tart: August 29, 2024 End: August 29, 2024 Dr. Terrell Quiles MD Attending Provider Active Start: August 29, 2024 End: August 29, 2024 Team Status: Inactive Member Role/Relationship Status Dates Jess Rosas VSC, WORSHIP LEADER-C Primary Care Provider Active Start: June 20, 2024 End: June 20, 2024 Faheem Hyde VSC, WORSHIP LEADER-C Attending Provider Active Start: June 20, 2024 End: June 20, 2024 Team Status: Inactive Member Role/Relationship Status Dates Jess Rosas VSC, WORSHIP LEADER-C Primary Care Provider Active Start: July 05, 2024 End: July 05, 2024 Jess Rosas VSC, WORSHIP LEADER-C Referring Provider Active S tart: July 05, 2024 End: July 05, 2024 Dr. Terrell Quiles MD Attending Provider Active Start: July 05, 2024 End: July 05, 2024 Team Status: Inactive Member Role/Relationship Status Dates Jess Rosas VSC, WORSHIP LEADER-C Primary Care Provider Active Start: July 27, 2024 End: July 27, 2024 Dr. Terrell Quiles MD Attending Provider Active Start: July 27, 2024 End: July 27, 2024 Dr. Terrell Quiles MD Referring Provider Active Start: July 27, 2024 End: July 27, 2024 Team Status: Inactive Member Role/Relationship Status Dates Jess Rosas VSC, WORSHIP LEADER-C Primary Care Provider Active Start: July 27, 2024 End: July 27, 2024 Dr. Terrell Quiles MD Attending Provider Active Start: July 27, 2024 End: July 27, 2024 Dr. Terrell Quiles MD Referring Provider Active Start: July 27, 2024 End: July 27, 2024 Team Status: Inactive Member Role/Relationship Status Dates Jess Bentonder VSC, WORSHIP LEADER-C Primary Care Provider Active Start: August 03, 2024 End: August 03, 2024 Dr. Terrell Quiles MD Attending Provider Active Start: August 03, 2024 End: August 03, 2024 Dr. Terrell Quiles MD Referring Provider Active Start: August 03, 2024 End: August 03, 2024 Team Status: Inactive Member Role/Relationship Status Dates Jess Bentonder VSC, WORSHIP LEADER-C Primary Care Provider Active Start: August 03, 2024 End: August 03, 2024 Dr. Terrell Quiles MD Attending Provider Active Start: August 03, 2024 End: August 03, 2024 Dr. Terrell Quiles MD Referring Provider Active Start: August 03, 2024 End: August 03, 2024 Team Status: Inactive Member Role/Relationship Status Dates Jess Deisy VSC, WORSHIP LEADER-C Primary Care Provider Active Start: August 29, 2024 End: August 29, 2024 Jess Deisy VSC, WORSHIP LEADER-C Referring Provider Active S tart: August 29, 2024 End: August 29, 2024 Dr. Terrell Quiles MD Attending Provider Active Start: August 29, 2024 End: August 29, 2024 Team Status: Inactive Member Role/Relationship Status Dates Jess Deisy VSC, WORSHIP LEADER-C Primary Care Provider Active Start: September 26, 2024 End: September 26, 2024 Faheem Hyde VSC, WORSHIP LEADER-C Attending Provider Active Start: September 26, 2024 End: September 26, 2024 Skiver Blockers Relationship Specialty Start Date End Date Jess Rosas CNP [address] [place] [address] PCP - General Family Medicine 06/06/24 Kalin Alonso MD Home Care Provider Thoracic Surgery 10/24/20 Kaycee Riley APRN.[employer] ARCHITECT Referring Vascular Surgery 10/29/20 Felicitas Chavez MD [address] [place] [address] Cardiology 11/26/20 (unrecognized sect ion and content) No Status Records FoundNo Status Records FoundNo Status Records FoundNo Status Records Found INFORMATION SOURCE (unrecogn ized section and content) DATE CREATED AUTHOR 09/11/2021 [facility] DATE CREATED AUTHOR AUTHOR'S ORGANIZ ATION 07/20/2024 [facility] DATE CREATED AUTHOR AUTHOR'S ORGANIZ ATION 10/11/2024 [facility] DATE CREATED AUTHOR AUTHOR'S ORGANIZ ATION 10/12/2024 [facility] Goals (unrecognized section and content) Goals may [...] BE BASED ON THE PRIMARY CLINICAL RECORDS. [facility] [employer] [facility]. provides no warranty or guarantee of the accuracy or completeness of information in this document.
== END | disposition home or self-care (01) ==
LOC: MRI 07:02
PROVIDERS: PCP Nurse Practitioner Family; Referring Provider Psychiatry & Neurology Neurology; Visit Provider Psychiatry & Neurology Neurology
DX: M54.50 Low back pain, unspecified (principal); M54.16 Radiculopathy, lumbar region
CPT/HCPCS: 72148

== ENCOUNTER → 2024-10-26 | Outpatient (CLI) | payer BC, SELFPAY ==
[2024-08-29 16:01] VITALS: BMI 27.8
--- NOTE | 2024-10-26 15:38 | RAD_ITS ---
PROCEDURE: THORACIC SPINE 3 VIEWS 10/26/2024 REASON FOR EXAM: MID SCAPULAR PAIN STATUS POST FALL 2022 TECHNIQUE: Procedure Code: RADSPT Modality: DX Procedure: THORACIC SPINE 3 VIEWS COMPARISON: None FINDINGS: There is multilevel degenerative disc disease noted. No acute fracture or subluxation noted. Adjacent ribs and lung are unremarkable. 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 RAD/Thoracic Spine 3 Views IMPRESSION: No acute bony abnormality. Multilevel degenerative disc disease as above. Reading Location: [facility]
== END | disposition home or self-care (01) ==
LOC: MTRAD 15:37
PROVIDERS: PCP Nurse Practitioner Family; Referring Provider Psychiatry & Neurology Neurology; Visit Provider Psychiatry & Neurology Neurology
DX: M54.9 Dorsalgia, unspecified (principal)
CPT/HCPCS: 72072

== ENCOUNTER → 2024-11-10 | Outpatient (CLI) | payer BC, SELFPAY ==
[2024-08-29 16:01] VITALS: BMI 27.8
--- OUTSIDE RECORDS SUMMARY | 2024-11-10 17:55 | XMS RPT_ITS | CCD ---
Author Organization [facility] Care Team Providers Care Finance Associate Name Role Phone Quang Hanson MD Primary Care Provider [phone] Kalin Alonso MD Unavailable [employer] VOCAL MUSIC INSTRUCTOR.CHRISTINA, Kaycee Unavailable Felicitas Chavez MD Unavailable Dr. Quang Hanson Primary Care Provider [phone] Dr. Quang Hanson Referring Provider Maximilian COTTAGE SUPERVISOR, COTTAGE SUPERVISOR-C Michelle Attending Provider Dr. Bill Avery Attending Provider Maximilian COTTAGE SUPERVISOR, COTTAGE SUPERVISOR-C Michelle Referring Provider [phone] Maximilian LAUREANO, COTTAGE SUPERVISOR-C Michelle Other Provider Dr. Quang Hanson Attending Provider Quang Hanson MD Primary Care Provider [phone] Kalin Alonso MD Unavailable [employer] VOCAL MUSIC INSTRUCTOR.CHILDBIRTH AND INFANT CARE TEACHER, Kaycee Unavailable Felicitas Chavez MD Unavailable Kalin Alonso MD Unavailable Quang Hanson MD Primary Care Provider [employer] VOCAL MUSIC INSTRUCTOR.CHILDBIRTH AND INFANT CARE TEACHER, Kaycee Unavailable Dr. Quang Hanson Primary Care Provider Maximilian COTTAGE SUPERVISOR, COTTAGE SUPERVISOR-C Michelle Referring Provider [phone] Maximilian LAUREANO, COTTAGE SUPERVISOR-C Michelle Other Provider Dr. Bill Avery Attending Provider Dr. Quang Hanson Attending Provider [phone] Dr. Quang Hanson Referring Provider [phone] Dr. Fredy Montague Attending Provider MARY Perez Attending Provider Quang Hanson MD Primary Care Provider Kalin Alonso MD Unavailable [employer] VOCAL MUSIC INSTRUCTOR.CHILDBIRTH AND INFANT CARE TEACHER, Kaycee Unavailable [phone] Felicitas Chavez MD Unavailable Dr. Quang Hanson Primary Care Provider Dr. Quang Hanson Referring Provider Deisy COTTAGE SUPERVISOR, COTTAGE SUPERVISOR-C Jess Attending Provider MARY Perez Attending Provider Quang Hanson MD Primary Care Provider Quang Hanson MD Primary Care Provider Long VOCAL MUSIC INSTRUCTOR.CHILDBIRTH AND INFANT CARE TEACHER, Kaycee Unavailable Felicitas Chavez MD Unavailable Long VOCAL MUSIC INSTRUCTOR.CHILDBIRTH AND INFANT CARE TEACHER, Kaycee Unavailable Unavailable Cheryl COREY, Carlito Unavailable Rosas COTTAGE SUPERVISOR-C, Jess Primary Care Provider Rosas COTTAGE SUPERVISOR-C, Jess Attending Provider Rosas COTTAGE SUPERVISOR-C, Jess Referring Provider Dr. Chucky Maya DO Referring Provider Dr. Chucky Maya DO Emergency Provider [phone] Kandice HU, Dr. Joi Baldwin Admit Provider Kandice HU, Dr. Joi Baldwin Attending Provider Kandice HU, Dr. Joi Baldwin Other Provider Sergio HU, Nilo Other Provider Unavailable Autumn HU, Dr. Garcia Other Provider Linsey HU, Mariana Other Provider Unavailable Hakeem HAYNES, Dr. Ceron Other Provider Mariama HU, Dr. Burrell Other Provider [phone] Radha HU, Dr. Alvarado Other Provider Kavita HU, Dr. Hernandez Other Provider [phone] Sonam HU, Dr. Delarosa Other Provider Merrick HU, Dr. Eaton Other Provider aAmir HU, Dr. Oates Other Provider Kiran HU, [...] HU, Kalin Mena Unavailable Unava ilable Long VOCAL MUSIC INSTRUCTOR.CHRISTINA, Kaycee Unavailable Unavailable Deisy COTTAGE SUPERVISOR-C, Jess Primary Care Provider Deisy COTTAGE SUPERVISOR-C, Jess Attending Provider Beam COTTAGE SUPERVISOR-C, Faheem Attending Provider Rosas COTTAGE SUPERVISOR-C, Jess Referring Provider Dr. Terrell Quiles MD Attending Provider [phone] MEREDITHARIA MEDELVERNON Admitting Unavailable ITRAT, RIGO KUN Consulting Unavailable CLIFF, AV Attending Unavailable ROSAS, JESS Primary Care Unavailable ROSAS, JESS Primary Care Unavailable SELF Referring Unavailable FELICITAS CHAVEZ M Attending Unavailable FELICITAS CHAVEZ M Referring Unavailable ROSAS, JESS Primary Care Unavailable MARUNOWSKI, AV Referring Unavailable ROSAS, JESS Primary Care Unavailable Dr. Terrell Quiles MD Referring Provider [phone] Rosas COTTAGE SUPERVISOR-C, Jess Primary Care Provider EDE, CIERA Referring Unavailable OLEGHE, EFEWONGBE B Primary Care Unavailable EDE, CIERA Attending Unavailable EDE, CIERA Referring Unavailable OLEGHE, EFEWONGBE B Primary Care Unavailable EDE, CIERA Attending Unavailable RAMIREZ THOMAS Referring Unavailable OLEGHE, EFEWONGBE B Primary Care Unavailable O'BELIA, CELIA Attending Unavailable MARUNOWSKI, AV Referring Unavailable ROSAS, JESS Primary Care Unavailable O'BELIA, CELIA Attending Unavailable MARUNOWSKI, AV Referring Unavailable ROSAS, JESS Primary Care Unavailable EDE, CIERA Referring Unavailable OLEGHE, EFEWONGBE B Primary Care Unavailable Rosas COTTAGE SUPERVISOR-C, Jess Primary Care Provider Beam COTTAGE SUPERVISOR-CFaheem Attending Provider Rosas VSC, Jess Primary Care Unavailable Beam VSCFaheem Attending Unavailable Rosas VSC, Jess Primary Care Unavailable Koram, Joi Nicolasa Attending Unavailable Koram, Joi Nicolasa Consulting Unavailable Koram, Joi Nicolasa Admitting Unavailable Le, Chucky Referring Unavailable Nilo Hill Consulting Unavailable Marcos Lovelace Attending Unavailable AdeRadha kelly Consulting Unavailable Hinduja, Mariana Consulting Unavailable Hakeem Jie Consulting Unavailable Mariama, Ashanti Consulting Unavailable Radha, Christiano Consulting Unavailable Her Kavitaa Consulting Unavailable Washington Masters Consulting Unavailable Abhay Sin Consulting Unavailable Иван Rutledge Consulting Unavailable Renee Beck Consulting Unavailable Tigre Masterson Consulting Unavailable Hanna Hammond Consulting Unavailable Ridha, Mohamed Consulting Unavailable Zaghlouleh, Mhd Donovan Consulting UnavailAlvin Singh Consulting Unavailable Gibbs, Rami Consulting Unavailable Dorothea, Sabas Consulting Unavailable Jefferson, Kaylan Consulting Unavailable Raymundo, Yousef Consulting Unavailable Marcos Lovelace Consulting Unavailable Rosas VSC, Jess Primary Care Unavailable Baddour, Terrell Referring Unavailable Baddour, Terrell Attending Unavailable Nilo Hill Consulting Unavailable Rosas VSC, Jess Primary Care Unavailable Kortravis, Joi Nicolasa Admitting Unavailable Marcos Lovelace Attending Unavailable Zulma, Chucky Referring Unavailable Adeli, Amir Consulting Unavailable Hinduja, Mariana Consulting Unavailable Hakeem, Jie Consulting Unavailable Mariama, Ashanti Consulting Unavailable Christiano Garcia Consulting Unavailable Mary Walls Consulting Unavailable Washington Masters Consulting Unavailable Abhay Sin Consulting Unavailable Иван Rutledge Consulting Unavailable Renee Beck Consulting Unavailable Tigre Masterson Consulting Unavailable Manish Hanna Consulting Unavailable Ridleandro, Mohamed Consulting Unavailable Zaghlouleh, Mhd Donovan Consulting UnavailAlvin Singh Consulting Unavailable Gibbs, Rami Consulting Unavailable Dorothea, Sabas Consulting Unavailable Jefferson, Kaylan Consulting Unavailable Hannaselwyn, Yousef Consulting Unavailable Koram, Joi Nicolasa Consulting Unavailable Rosas VSC, Jess Primary Care Unavailable Marcos Lovelace Referring Unavailable Marcos Lovelace Attending Unavailable Baddour, Terrell Referring Unavailable Rosas VSC, Jess Primary Care Unavailable Baddour, Terrell Attending Unavailable Rosas VSC, Jess Primary Care Unavailable Baddour, Terrell Referring Unavailable Baddour, Terrell Attending Unavailable Rosas VSC, Jess Primary Care Unavailable Rosas VSC, Jess Referring Unavailable Baddour, Terrell Attending Unavailable Rosas VSC, Jess Primary Care Unavailable Tom Medina Attending Unavailable Rosas VSC, Jess Primary Care Unavailable Rosas VSC, Jess Referring Unavailable Rosas VSC, Jess Attending Unavailable Rosas VSC, Jess Primary Care Unavailable Baddour, Terrell Referring Unavailable Baddour, Terrell Attending Unavailable Baddour, Terrell Referring Unavailable Rosas VSC, Jess Primary Care Unavailable Baddour, Terrell Attending Unavailable Rosas VSC, Jess Primary Care Unavailable Beam VSC, Pablobulun Attending Unavailable Baddour, Terrell Referring Unavailable Rosas VSC, Jess Primary Care Unavailable Baddour, Terrell Attending Unavailable Baddour, Terrell Referring Unavailable Rosas VSC, Jess Primary Care Unavailable Baddour, Terrell Attending Unavailable Rosas VSC, Jess Referring Unavailable Rosas VSC, Jess Primary Care Unavailable Baddour, Terrell Attending Unavailable Rosas VSC, Jess Primary Care Unavailable Baddour, Terrell Referring Unavailable Baddour, Terrell Attending Unavailable Rosas VSC, Jess Primary Care Unavailable Rosas VSC, Jess Attending Unavailable Allergies Allergy Classification Reported Allergen(s) Allergy Type Date of Onset Reaction(s) Facility Corticosteroids (1 source) predniSONE Drug Allergy 04-24-2015 [facility] Opio[facility] Agonists (1 source) oxyCODONE Drug Allergy 04-24-2015 [facility] (20 sources) oxyCODONE; Translations: [OXYCODONE] Drug Allergy 04-24-2015 [facility] Work Phone: (20 sources) predniSONE; Translations: [PREDNISONE] Drug Allergy 04-24-2015 [facility] Work Phone: (1 source) oxyCODONE Drug Allergy 10-26-2024 [facility] Repository (1 source) predniSONE Drug Allergy 10-26-2024 [facility] Repository Medications Current Medications Medication Drug Class(es) Dates Sig (Normalized) Sig (Original) acetaminophen 500 mg oral tablet (20 sources) Start: 11-22-2020 take 2 tablets by mouth twice daily as needed for pain Acetaminophen (Tylenol Extra Strength) 500 mg tablet Active 1000 mg PO TWICE A DAY as needed for fever or pain November 22, 2020 12:00am Start: 10-29-2020 take 2 tablets by mo uth every six hours as needed acetaminophen (TYLENOL) [...] on above: Take 2 tablets by mo [facility] every 6 hours as needed for pain. [...] mg PO DAILY November 22, 2020 12:00am [facility] [employer] Start: 11-22-2020 Aspirin (Adult Low Dose [...] Comment on above: Take 1 tablet by [facility] once daily. busPIRone hydrochloride 5 mg oral tablet (8 sources) Start: 07-06-19 25 take 1 tablet by mouth three times daily Buspirone 5 mg tablet Active 5 mg PO THREE TIMES A DAY 90 July 05, 2024 12:00am cholecalciferol 1.25 mg oral capsule (8 sources) Vitamin D Start: 07-06-19 25 take [...] A DAY as needed for muscle spasm 20 March 16, 2018 1:00am August 18, 2018 [...] Start: 05-25-2024 take 1 tablet by pete once daily as needed for anxiety Diazepam [...] esomeprazole 40 mg delayed release oral capsule (18 sources) Proton Pump Inhibitor Start: 05-14-2024 take 1 capsule by mouth once daily Esomeprazole Magnesium 40 mg capsule,delayed release(DR/EC) Active 40 mg PO DAILY May 25, 2024 12:00am reflux 24 hr isosorbide mononitrate 30 mg extended release oral tablet (20 sources) Nitrate Vasodilator Start: 09-03-2021 End: 01-10-2024 take 1 tablet by mouth once daily, then take 1 tablet by mouth every twenty-four hours Isosorbide Mononitrate 30 mg tablet extended release 24 hr Active 30 mg PO DAILY October 01, 2021 12:00am [facility] Comment on above: Take 1 tablet by [...] 2019 3:40pm LORazepam 1 mg oral tablet (3 sources) Benzodiazepine Start: 09-08-2024 Lorazepam 1 mg tablet [...] TWICE A DAY as needed for dizziness 23 03September 12, 2020 12:00am September 23, 2020 4:30pm Start: 05-05-2019 End: 08-03-2019 take 1 tablet by mouth twice daily as needed Meclizine 25 mg tablet Discontinued 25 mg PO TWICE A DAY as needed for vertigo 23 03May 05, 2019 12:00am August 03, 2019 5:04pm metoprolol tartrate 25 mg oral tablet (20 sources) beta-Adrenergic [place] Start: 05-25-2024 End: 10-18-2024 take 1 tablet by mouth twice daily Metoprolol Tartrate 25 mg tablet Active 25 mg PO TWICE A DAY May 25, 2024 12:00am blood pressure Start: 02-23-2023 End: 04-10-2024 take 1 tablet [...] on above: Take 1 tablet by pete daily at bedtime. TAKE 1 TABLET BY PETE EVERY DAY AT BEDTIME 125 ml sodium chloride 9 mg/ml prefilled syringe (14 sources) Start: End: 3 sodium chloride 0.9 % (flush) 10 mL (BD POSIFLUSH) tamsulosin hydrochloride 0.4 mg oral capsule (11 sources) alpha-Adrenergic [place] Start: 5 take 1 [...] pain Low back pain Other chronic pain [id number] 200 actuat albuterol 0.09 mg/actuat metered dose inhaler (20 sources) beta2-Adrenergic Agonist Start: 07-14-2020 End: 05-14-2022 Albuterol Sulfate (Ventolin Hfa) 90 mcg/actuation HFA aerosol inhaler Discontinued 2 NMA INHALATION EVERY 4 HOURS NEEDED as needed for Wheezing 1 September 02, 2020 2:34pm May 14, 2022 [...] in structed. amLODIPine 10 mg oral tablet (19 sources) Dihydropyridine Calcium Channel [place] Start: 03-24-19 End: 05-05-19 take 1 tablet by mouth once daily Amlodipine 10 mg tablet Discontinued 10 mg PO DAILY 90 March 24, 2019 1:00am May 05, 2019 3:57pm 24 hr buPROPion hydrochloride 150 mg extended release oral tablet (20 sources) Aminoketone Start: 08-03-19 End: 06-18-20 20 take 1 tablet by mouth once daily [...] hr Discontinued 300 mg PO DAILY 90 3 August 18, 2018 5:28pm August 03, 2019 [...] sodium 75 mg delayed release oral tablet (19 sources) Nonsteroidal Anti-inflammatory Drug Start: End: take [...] DAY as needed for dizziness or vertigo 14 03January 17, 2020 1:00am February 26, 2020 3:17pm [...] release(DR/EC) Discontinued 60 mg PO DAILY 30 August 03, 2019 12:00am September 14, 2019 6:06pm ezetimibe 10 mg oral tablet (20 sources) Dietary Cholesterol Absorption Inhibitor Start: 10-14-2020 End: 12-03-2024 take 1 tablet by mouth once daily Ezetimibe 10 mg tablet Discontinued 10 mg PO DAILY November 22, 2020 12:00am December 30, 2021 2:39pm Comment on above: Take 1 tablet by pete once daily. flurbiprofen 100 mg oral tablet (19 sources) Nonsteroidal Anti-inflammatory Drug Start: 02-13-2020 End: [...] 12:53pm hydrOXYzine hydrochloride 25 mg oral tablet (19 sources) Antihistamine Start: 01-02-2020 End: 02-13-2020 take 1 tablet by mouth twice daily as needed for dizziness Hydroxyzine Hcl 25 mg tablet Discontinued 25 mg PO TWICE A DAY as needed for dizziness 14 0 January 02, 2020 1:00am February 13, 2020 6:55pm icosapent ethyl 1000 mg oral capsule (19 sources) Start: 09-23-2018 End: 05-05-2019 Icosapent Ethyl (Vascepa) 1 gram capsule Discontinued 2 g PO TWICE A DAY 360 3 September 23, 2018 12:00am May 05, 2019 3:59pm Insta Flex (19 sources) Start: 08-18-2018 End: 05-05-2019 Insta Flex Discontinued PO 0 August 18, 2018 12:00am May 05, 2019 3:59pm Start: 08-18-2018 End: 05-05-2019 Insta Flex Discontinued PO J 2018 11:00pm May 05, 2019 2:59pm Start: 08-18-2018 End: 05-05-2019 Insta Flex Discontinued PO J une 2018 12:00am May 05, 2019 3:59pm lansoprazole [...] 1 tablet by mouth once daily Magnesium (19 sources) Start: 11-22-2020 End: 08-29-2021 take 2 [...] 2019 3:59pm metaxalone 800 mg oral tablet (14 sources) Start: 07-03-2022 End: 05-25-2024 take 1 tablet by mouth three times daily Metaxalone 800 mg tablet Discontinued 800 mg PO THREE TIMES A DAY 21 7 0 July 03, 2022 12:00am May 25, 2024 1:03pm methylPREDNISolone 4 mg oral tablet (14 sources) Corticosteroid Start: 07-03-2022 End: 05-25-2024 Methylprednisolone [...] 1:00am August 29, 2021 10:19am Multivitamin tablet (12 sources) Start: 02-24-2021 End: 08-29-2021 Multivitamin tablet Discontinued 1 {tbl} PO DAILY February 24, 2021 1:00am August 29, 2021 10:19am Mv,Ca,Lmb-Kcqu-Gf-Lycope ne (Centrum Men) 8 mg iron- 200 mcg-600 mcg tablet (19 sources) Start: 05-05-2019 End: 12-12-2019 take 8 tablets by mouth once Mv,Ca,Csc-Zjpc-He-Lycop nithin (Centrum Men) 8 mg iron- 200 mcg-600 mcg tablet Discontinued {tbl} PO May 05, 2019 12:00am December 12, 2019 3:40pm Start: 05-05-2019 End: 12-12-2019 Mv,Ca,Hdu-Ddsi-Rz-Lycopene ( Centrum Men) 8 mg iron- 200 mcg-600 mcg tablet Discontinued TABLET PO May 04, 2019 11:00pm December 12, 2019 2:40pm Start: 05-05-2019 End: 12-12-2019 Mv,Ca,Uby-Qkms-Sb-Lycopene ( Centrum Men) 8 mg iron- 200 mcg-600 mcg tablet Discontinued TABLET PO May 05, 2019 12:00am December 12, 2019 3:40pm nabumetone 500 mg oral tablet (20 sources) Nonsteroidal Anti-inflammatory Drug Start: 09-12-2020 End: 12-24-2020 take 1 tablet by mouth twice daily as needed for pain Nabumetone 500 mg tablet Discontinued 500 mg PO TWICE A DAY as needed for back pain 30 0 September 12, 2020 12:00am December 24, 2020 6:52pm Comment on above: Take by mouth. naproxen 500 mg oral tablet (19 sources) Nonsteroidal Anti-inflammatory Drug Start: 10-09-2017 End: [...] release(DR/EC) Discontinued 20 mg PO DAILY 30 3 February 13, 2020 6:56pm June 11, 2020 4:48pm Unspecified osteoarthritis, unspecified site dyspepsia oxyCODONE hydrochloride 5 mg oral tablet (13 sources) Opioid Agonist Start: 08-25-2022 End: 05-25-2024 take 1 tablet by mouth every six hours as needed for pain Oxycodone 5 mg tablet Discontinued 5 mg PO EVERY 6 HOURS as needed for pain 10 3 0 August 25, 2022 May 25, 2024 1:03pm Chest pain Chest pain, unspecified pantoprazole 20 mg delayed release oral tablet (20 sources) Proton Pump Inhibitor Start: 12-24-2020 End: 07-07-2021 take 1 tablet by mouth once daily Pantoprazole 20 mg tablet,delayed release (DR/EC) Discontinued 20 mg PO DAILY 90 1 April 22, 2021 1:00am July 07, 2021 8:38am Comment on above: Take 20 mg by mouth once daily. microencapsulated potassium chloride 20 meq extended release oral tablet (19 sources) Start: 11-04-2018 End: 03-24-2019 take 1 [...] 72 hr scopolamine 0.0139 mg/hr transdermal system (10 sources) Anticholinergic Start: 05-26-2024 End: 07-05-2024 Scopolamine [...] DAILY traMADol hydrochloride 50 mg oral tablet (19 sources) Opioid Agonist Start: 01-09-2017 End: 03-16-2018 Tramadol 50 MG tablet Discontinued 1 {tbl} PO THREE TIMES A DAY as needed for Pain January 09, 2017 1:00am March 16, 2018 1:18pm traZODone hydrochloride 50 mg oral tablet (19 sources) Serotonin Reuptake Inhibitor Start: 03-24-2019 End: [...] Problem Date Documented Date Episodic/Chronic Administrative/social admission (19 sources) Patient encounter status; Translations: [Persons encountering [...] coronary arteriosclerosis; Translations: [Atherosclerotic heart disease of [place] coronary artery with other forms of angina pectoris] Onset: 10-22-2020 10-29-2020 Chronic Disorders of lipid metabolism (20 sources) Dyslipidemia; Translations: [Hyperlipidemia, unspecified] Onset: 01-14-2021 Chronic E Codes: Fall (1 source) Unspecified fall, initial encounter; Translations: [Fall, initial encounter] Onset: 06-09-2024 Episodic Esophageal disorders (20 sources) Gastroesophageal reflux disease; Translations: [Gastro-esophageal reflux [...] disorder] Onset: 06-09-2024 Episodic Hyperplasia of prostate (17 sources) Benign prostatic hyperplasia; Translations: [Benign prostatic hyperplasia without lower urinary tract symptoms] Chronic Immunizations and screening for infectious disease (20 sources) Anti-nuclear factor positive; Translations: [Other specified abnormal immunological findings in serum] Onset: 01-14-2021 01-14-2021 Episodic Malaise and fatigue (20 sources) Fatigue; Translations: [Chronic fatigue, unspecified] Onset: 10-26-2024 Chronic Malaise and fatigue (6 sources) Fatigue; Translations: [Other fatigue] Onset: 10-04-2024 08-03-2024 Episodic Mood disorders (20 sources) Depressive disorder; Translations: [Depressive disorder] Onset: 01-14-2021 01-14-2021 Chronic Nonspecific chest pain (20 sources) Precordial pain; Translations: [Precordial pain] Episodic Nutritional deficiencies (20 sources) Vitamin D deficiency; Translations: [Vitamin D deficiency, unspecified] Onset: 10-05-2024 07-26-2024 Chronic Osteoarthritis (20 sources) Arthritis; Translations: [Unspecified osteoarthritis, unspecified site] Onset: 01-14-2021 01-14-2021 Chronic Other circulatory disease (10 sources) Disorder of carotid artery; Translations: [Disorder of arteries and arterioles, unspecified] 05-25-2024 Chronic Other circulatory disease (13 sources) H/O: heart disorder; Translations: [Personal history of other diseases of the circulatory system] 09-02-2022 Episodic Other connective tissue disease (20 sources) Difficulty balancing; Translations: [Other symptoms and signs involving the nervous system] Onset: 01-14-2021 01-14-2021 Episodic Other connective tissue disease (20 sources) Bursitis of olecranon of right elbow; Translations: [Olecranon bursitis, right elbow] Onset: 01-14-2021 01-14-2021 Episodic Other connective tissue disease (14 sources) Spasm; Translations: [Other muscle spasm] 07-03-2022 Episodic Other diseases of kidney and ureters (17 sources) Renal mass; Translations: [Other specified disorders [...] of dyspnea] Episodic Other lower respiratory disease (17 sources) Computed tomography result abnormal; Translations: [Other nonspecific abnormal finding of lung field] 10-01-2021 Episodic Other lower respiratory disease (4 sources) Shortness of breath; Translations: [Shortness of breath] Episodic Other lower respiratory disease (1 source) Other forms of dyspnea; Translations: [SHAH (dyspnea on exertion)] Onset: 06-06-2024 Episodic Other male genital disorders (17 sources) Male erectile dysfunction, unspecified; Translations: [Erectile dysfunction] 05-14-2022 Chronic Other nervous system disorders (2 sources) Other chronic pain; Translations: [Chronic pain of both knees] Onset: 01-14-2021 Chronic Other nervous system disorders (20 sources) Postoperative pain ; Translations: [Other acute postprocedural pain] Onset: 01-14-2021 01-14-2021 Episodic Other nervous system disorders (1 source) Other symptoms and signs involving cognitive functions and awareness; Translations: [Cognitive impairment] Onset: 06-21-2024 Episodic Other nervous system disorders (16 sources) Paresthesia; Translations: [Paresthesia of skin] 07-05-2024 Episodic Other non-traumatic joint disorders (20 sources) Pain in unspecified knee; Translations: [Pain in joint, lower leg] Onset: 01-14-2021 01-14-2021 Episodic Other non-traumatic joint disorders (20 sources) Shoulder pain; Translations: [Pain in unspecified shoulder] Onset: 01-14-2021 01-14-2021 Episodic Other non-traumatic joint disorders (1 source) Pain in unspecified shoulder; Translations: [Pain in joint, shoulder region] 07-03-2022 Episodic Other upper respiratory infections (4 sources) Sinusitis; Translations: [Chronic sinusitis, unspecified] Onset: 10-26-2024 10-26-2024 Chronic Residual codes; unclassified (20 sources) Sleep apnea; Translations: [Sleep apnea, unspecified] Onset: 01-14-2021 01-14-2021 Chronic Residual codes; unclassified (15 sources) Obstructive sleep apnea syndrome; Translations: [Obstructive sleep apnea (adult) (pediatric)] 05-15-2022 Chronic Residual codes; unclassified (15 sources) Hypersomnia; Translations: [Hypersomnia, unspecified] 05-14-2022 Chronic [...] low back pain without sciatica] Onset: 01-14-2021 Unclassified (1 source) Low back pain, unspecified; Translations: [Low back pain, unspecified] Onset: 10-19-2024 Viral infection (17 sources) Disease caused by 2019-nCoV; Translations: [COVID-19] Episodic Past or Other Problems Problem Classification Problem Date Documented Da te Episodic/Chronic Coronary atherosclerosis and other heart disease (1 source) Presence of aortocoronary bypass graft; Translations: [Hx of CABG] Onset: 02-05-2023 Episodic Other nervous system disorders (6 sources) Impaired cognition; Translations: [Other symptoms and signs involving cognitive functions and awareness] Onset: 06-21-2024 06-21-2024 Episodic Other nervous system disorders (1 source) Paresthesia of skin; Translations: [Paresthesia of skin] Onset: 08-04-2024 Episodic Other non-traumatic joint disorders (3 sources) [...] Translations: [Disorientation, unspecified] Onset: 06-26-2024 Episodic Unclassified (19 sources) history of broken right hip 08-18-2018 Results Test Name Value Interpretation Reference Range Facility Neurology Visit Reporton Neurology Visit Report [facility] [address] [place] [address], [address] [place] [address] OFFICE VISIT Date of Service: 10/26/24 MR#: [id number] Acct: [id number] Name: HAYDEN PENDLETON Rep #: [id number] : 1965 Provider: Dr. Terrell schmidt MD Age/Sex: 59/M [place] [facility] [place] Status: Signed HPI HPI Details: Interim History: [...] of some benefit for his disequilibrium. Buspirone is no longer of benefit for his anxiety. He now reports having recurrence of mild positional vertigo that began 3 days ago. He is taking loratadine and no longer feels this is of benefit. His memory difficulty has worsened since 2023. [...] 2024. He continues to smoke tobacco. He states that since his last visit he very infrequently has used marijuana. He has depression, anxiety and easy irritability. Citalopram 40mg daily was of benefit. He takes diazepam as needed. Duloxetine was not well [...] diclofenac and flurbiprofen were not of benefit. He reports that in 2022 he fell and has had mid back pain since that time. A B12 1500mcg injection was of some benefit for his fatigue. Meclizine, loratadine, hydroxyzine, [...] back pain and right lower extremity pain. A mild L4-5 disc bulge producing mild to moderate bilateral neuroforaminal stenosis at L4-5 is noted on his recent lumbar MRI. He is taking aspirin 81 mg daily. He has had sleep impairment. Losartan was prescribed (more content not included)... Normal [facility] Thoracic Spine 3 Viewson Thoracic Spine 3 Views [facility] Imaging Services [address] [place] [address] Thoracic Spine 3 Views MR#: [id number] Acct: [id number] Name: HAYDEN PENDLETON Rep #: [id number] : 1965 M 59 From: Og Van MD PCP: Jess Rosas NP-C Status: REG CLI Study: Thoracic Spine 3 Views Date of Exam: 10/26/24 Exam# [id number] Ordering Dr: Terrell Quiles MD PROCEDURE: THORACIC SPINE 3 VIEWS 10/26/2024 REASON FOR EXAM: MID SCAPULAR PAIN STATUS POST FALL 2022 TECHNIQUE: Procedure Code: RADSPT Modality: DX Procedure: THORACIC SPINE 3 VIEWS COMPARISON: None FINDINGS: There is multilevel degenerative disc disease noted. No acute fracture or subluxation noted. Adjacent ribs and lung are unremarkable. 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 RAD/Thoracic Spine 3 Views IMPRESSION: No acute bony abnormality. Multilevel degenerative disc disease as above. Reading [facility] CC: COTTAGE SUPERVISORMervin Rosas; Dr. Terrell Quiles MD Overlock Operator: Signed Normal [facility] Magnetic resonance imaging r eportOrdered By: Jan Shelton on 10-15-2024 Study report [facility] Imaging Services [address] [place] [address] Spine Lumbar (Routine) MR#: [id number] Acct: [id number] Name: HAYDEN PENDLETON Rep #: [id number] : 1965 M 59 From: Roberta Shelton MD PCP: SEBASTIÁN Pathak Status: REG CLI Study:Spine Lumbar (Routine) Date of Exam: 10/13/24 Exam# [id number] Ordering Dr: Terrell Quiles MD PROCEDURE: SPINE LUMBAR (ROUTINE) 10/13/2024 REASON FOR EXAM: LOW BACK PAIN; RIGHT LUMBAR RADICULOAPTHY TECHNIQUE: SPINE LUMBAR (ROUTINE) COMPARISON: 09/11/2022 FINDINGS: Normal lumbar vertebral body height and alignment. No subluxation. No compression deformity. Normal conus. Normal cauda equina. No retroperitoneal mass. L1-L2, L2-L3 and L3-L4 are within normal limits. At L4-5 there is disc dehydration and minimal annular bulging. L5-S1 is unremarkable. MRI/Spine Lumbar (Routine) IMPRESSION: Similar findings of the prior study. Disc dehydration and minimal annular bulging at L4-5. No interval change. No focal right-sided nerve root impingement Reading Location[facility] CC: SEBASTIÁN Rosas; Dr. Terrell Quiles MD ~ Overlock Operator: Signed [facility] Spine Lumbar (Routine)on Spine Lumbar (Routine) [facility] Imaging Services [address] [place] [address] Spine Lumbar (Routine) MR#: [id number] Acct: [id number] Name: HAYDEN PENDLETON Rep #: [id number] : 1965 M 59 From: Jan Shelton MD PCP: SEBASTIÁN Pathak Status: REG CLI Study: Spine Lumbar (Routine) Date of Exam: 10/13/24 Exam# [id number] Ordering Dr: Terrell Quiles MD PROCEDURE: SPINE LUMBAR (ROUTINE) 10/13/2024 REASON FOR EXAM: LOW BACK PAIN; RIGHT LUMBAR RADICULOAPTHY TECHNIQUE: SPINE LUMBAR (ROUTINE) COMPARISON: 09/11/2022 FINDINGS: Normal lumbar vertebral body height and alignment. No subluxation. No compression deformity. Normal conus. Normal cauda equina. No retroperitoneal mass. L1-L2, L2-L3 and L3-L4 are within normal limits. At L4-5 there is disc dehydration and minimal annular bulging. L5-S1 is unremarkable. MRI/Spine Lumbar (Routine) IMPRESSION: Similar findings of the prior study. Disc dehydration and minimal annular bulging at L4-5. No interval change. No focal right-sided nerve root impingement Reading Location[facility] CC: SEBASTIÁN Rosas; Dr. Terrell Quiles MD Overlock Operator: Signed [facility]AY[facility]ENDLE[facility] ([id number]) 1965 M Date Time Provider Department 10/10/24 [...] Status:Closed by KELTON HOOD on 10/10/24 [facility], [facility] / Freeon 10-01-2024 TESTOSTER,FREE 7.60 ng/dL Normal 5.00-21.00 [facility] Comment on above: Order Comment: CLEAN CATCH Performed By: #### L 503.0105, L501.9520, L501.9910, L501.9985, L400.0001, L100.0100, L500.4100, L500.4050, L3300.0960, L3100.5310 #### [facility] Laboratory [address] [place], [place], [id number] TESTOSTER,TOTAL 297 ng/dL Normal 264-916 [facility] Comment on above: Order Comment: CLEAN CATCH Result Comment: Adul t male reference interval is based on a population of healthy nonobese males (BMI <30) between 19 and 39 years old. jason Hartman.al. JCEM 2017,102;2821-9749. PMID: [id number]. Performed By: #### L 503.0105, L501.9520, L501.9910, L501.9985, L400.0001, L100.0100, L500.4100, L500.4050, L3300.0960, L3100.5310 #### [facility] Laboratory [address] [place], [address] TESTOSTERONE,%F 2.56 Normal 1.50-4.20 [facility] Comment on above: Order Comment: CLEAN CATCH Result Comment: Perf ormed at: [facility] [address] [id number] Acquisition Advisor: Loy Lopez PhD, Phone: [phone] Performed at: [facility] [address] [id number] Acquisition Advisor: Sylvia Chapman MD, Phone: [phone] Performed By: #### L 503.0105, L501.9520, L501.9910, L501.9985, L400.0001, L100.0100, L500.4100, L500.4050, L3300.0960, L3100.5310 #### [facility] Laboratory [address] [place], [address] Absolute lymphocyte countOrd ered By: Faheem Hyde on 09-26-2024 Lymphocytes Auto (Unsp spec) [#/Vol] 2.82 10*3/uL 0.83-4.51 [facility] Absolute neutrophil countOrd ered By: Faheem Hyde on 09-26-2024 Neutrophils (Bld) [#/Vol] 3.5 10*3/uL 2.0-7.7 [facility] Anion gap in Serum or Plasma Ordered By: Zebulun Beam on 09-26-2024 Anion gap [Moles/Vol] 14 mmol/L 5- [facility] Automated lymphocyte count a s percentage of total leukocytesOrdered By: Zebulun Beam on 09-26-2024 Lymphocytes/100 WBC Auto (Unsp spec) 39.5 % - [facility] BUN/creatinine ratioOrdered By: Zebulun Beam on 09-26-2024 Urea nitrogen/Creatinine [Mass ratio] 15.1 mg/mg - [facility] Basophil percentageOrdered B y: Zebulun Beam on 09-26-2024 Basophils/100 WBC (Bld) 1.4 % High 0-1 [facility] Bilirubin, totalOrdered By: Zebulun Beam on 09-26-2024 Bilirubin [Mass/Vol] 0.43 mg/dL 0.00-1.30 [facility] CBC W/Diff, Automatedon Absolute Lymph 2.82 X10 3/uL Normal 0.83-4.51 [facility] Comment on above: Performed By: #### L 503.0105, L501.9520, L501.9910, L501.9985, L400.0001, L100.0100, L500.4100, L500.4050, L3300.0960, L3100.5310 #### [facility] Laboratory [address] [place], [place], [id number] Absolute Neut 3.5 X10 3/uL Normal 2.0-7.7 [facility] Comment on above: Performed By: #### L 503.0105, L501.9520, L501.9910, L501.9985, L400.0001, L100.0100, L500.4100, L500.4050, L3300.0960, L3100.5310 #### [facility] Laboratory [address] [place], [address] Basophils/100 WBC (Bld) 1.4 % High 0-1 [facility] Comment on above: Performed By: #### L 503.0105, L501.9520, L501.9910, L501.9985, L400.0001, L100.0100, L500.4100, L500.4050, L3300.0960, L3100.5310 #### [facility] Laboratory [address] [place], [address] (213) Eosinophils/100 WBC (Bld) 4.1 % Normal 0-5 [facility] Comment on above: Performed By: #### L 503.0105, L501.9520, L501.9910, L501.9985, L400.0001, L100.0100, L500.4100, L500.4050, L3300.0960, L3100.5310 #### [facility] Laboratory [address] [place], [address] (637) Erythrocyte distribution width (RBC) [Ratio] 14.0 % Normal 11.6-14.6 [facility] Comment on above: Performed By: #### L 503.0105, L501.9520, L501.9910, L501.9985, L400.0001, L100.0100, L500.4100, L500.4050, L3300.0960, L3100.5310 #### [facility] Laboratory [address] [place], [address] (697) Hematocrit (Bld) [Volume fraction] 42.1 % Normal 40-54 [facility] Comment on above: Performed By: #### L 503.0105, L501.9520, L501.9910, L501.9985, L400.0001, L100.0100, L500.4100, L500.4050, L3300.0960, L3100.5310 #### [facility] Laboratory [address] [place], [address] (014) Hemoglobin (Bld) [Mass/Vol] 15.0 g/dL Normal 13.0-16.5 [facility] Comment on above: Performed By: #### L 503.0105, L501.9520, L501.9910, L501.9985, L400.0001, L100.0100, L500.4100, L500.4050, L3300.0960, L3100.5310 #### [facility] Laboratory [address] [place], [address] IG% 0.400 Normal 0.0-0.9 [facility] Comment on above: Result Comment: IG% - Immature Granulocytes (promyelocytes, myelocytes and metamyelocytes) > 1% indicates that a LEFT SHIFT is Present. Performed By: #### L 503.0105, L501.9520, L501.9910, L501.9985, L400.0001, L100.0100, L500.4100, L500.4050, L3300.0960, L3100.5310 #### [facility] Laboratory [address] [place], [address] Lymphocytes/100 WBC (Bld) 39.5 % Normal 19-41 [facility] Comment on above: Performed By: #### L 503.0105, L501.9520, L501.9910, L501.9985, L400.0001, L100.0100, L500.4100, L500.4050, L3300.0960, L3100.5310 #### [facility] Laboratory [address] [place], [address] MCH (RBC) [Entitic mass] 28.9 pg Normal 27.0-32.0 [facility] Comment on above: Performed By: #### L 503.0105, L501.9520, L501.9910, L501.9985, L400.0001, L100.0100, L500.4100, L500.4050, L3300.0960, L3100.5310 #### [facility] Laboratory [address] [place], [address] MCHC (RBC) [Mass/Vol] 35.6 g/dL Normal 32-36 [facility] Comment on above: Performed By: #### L 503.0105, L501.9520, L501.9910, L501.9985, L400.0001, L100.0100, L500.4100, L500.4050, L3300.0960, L3100.5310 #### [facility] Laboratory [address] [place], [address] MCV (RBC) [Entitic vol] 81.1 fL Normal 80-94 [facility] Comment on above: Performed By: #### L 503.0105, L501.9520, L501.9910, L501.9985, L400.0001, L100.0100, L500.4100, L500.4050, L3300.0960, L3100.5310 #### [facility] Laboratory [address] [place], [address] Monocytes/100 WBC (Bld) 6.0 % Normal 0-10 [facility] Comment on above: Performed By: #### L 503.0105, L501.9520, L501.9910, L501.9985, L400.0001, L100.0100, L500.4100, L500.4050, L3300.0960, L3100.5310 #### [facility] Laboratory [address] [place], [address] Neutrophils/100 WBC (Bld) 48.6 % Normal 47-70 [facility] Comment on above: Performed By: #### L 503.0105, L501.9520, L501.9910, L501.9985, L400.0001, L100.0100, L500.4100, L500.4050, L3300.0960, L3100.5310 #### [facility] Laboratory [address] [place], [address] Nucleated RBC (Bld) [#/Vol] 0 10*3/uL Normal 0-5 [facility] Comment on above: Performed By: #### L 503.0105, L501.9520, L501.9910, L501.9985, L400.0001, L100.0100, L500.4100, L500.4050, L3300.0960, L3100.5310 #### [facility] Laboratory [address] [place], [address] Platelet mean volume (Bld) [Entitic vol] 9.6 fL Normal 6.2-12.0 [facility] Comment on above: Performed By: #### L 503.0105, L501.9520, L501.9910, L501.9985, L400.0001, L100.0100, L500.4100, L500.4050, L3300.0960, L3100.5310 #### [facility] Laboratory [address] [place], [address] (552) Platelets (Bld) [#/Vol] 304 10*3/uL Normal 150-450 [facility] Comment on above: Performed By: #### L 503.0105, L501.9520, L501.9910, L501.9985, L400.0001, L100.0100, L500.4100, L500.4050, L3300.0960, L3100.5310 #### [facility] Laboratory [address] [place], [place], [phone] (789) RBC (Bld) [#/Vol] 5.19 10*6/uL Normal 4.6-6.2 [facility] Comment on above: Performed By: #### L 503.0105, L501.9520, L501.9910, L501.9985, L400.0001, L100.0100, L500.4100, L500.4050, L3300.0960, L3100.5310 #### [facility] Laboratory [address] [place], [address] (616) RDW SD 40.5 fl Normal 35.1-43.9 [facility] Comment on above: Performed By: #### L 503.0105, L501.9520, L501.9910, L501.9985, L400.0001, L100.0100, L500.4100, L500.4050, L3300.0960, L3100.5310 #### [facility] Laboratory [address] [place], [address] (711) WBC (Bld) [#/Vol] 7.1 10*3/uL Normal 4.4-11.0 [facility] Comment on above: Performed By: #### L 503.0105, L501.9520, L501.9910, L501.9985, L400.0001, L100.0100, L500.4100, L500.4050, L3300.0960, L3100.5310 #### [facility] Laboratory [address] [place], [address] Carbon dioxide, total [Moles /volume] in Central venous bloodOrdered By: Faheem Hyde on 09-26-2024 CO2 [Moles/Vol] 22.8 mmol/L 21.0-32.0 [facility] Chloride assayOrdered By: Pablo Hyde on 09-26-2024 Chloride [Moles/Vol] 100 mmol/L 98-108 [facility] Comprehensive Metabolic Prof ilon 09-26-2024 Albumin [Mass/Vol] 4.7 g/dL Normal 3.5-5.0 [facility] Comment on above: Performed By: #### L 503.0105, L501.9520, L501.9910, L501.9985, L400.0001, L100.0100, L500.4100, L500.4050, L3300.0960, L3100.5310 #### [facility] Laboratory [address] [place], [address] (595) Albumin/Globulin [Mass ratio] 1.8 {ratio} Normal 0.9-2.4 [facility] Comment on above: Performed By: #### L 503.0105, L501.9520, L501.9910, L501.9985, L400.0001, L100.0100, L500.4100, L500.4050, L3300.0960, L3100.5310 #### [facility] Laboratory [address] [place], [place], [phone] (270) ALK PHOS 68 U/L Normal 40-129 [facility] Comment on above: Performed By: #### L 503.0105, L501.9520, L501.9910, L501.9985, L400.0001, L100.0100, L500.4100, L500.4050, L3300.0960, L3100.5310 #### [facility] Laboratory [address] [place], [place], [phone] (954) ALT [Catalytic activity/Vol] 22 U/L Normal <=46 [facility] Comment on above: Performed By: #### L 503.0105, L501.9520, L501.9910, L501.9985, L400.0001, L100.0100, L500.4100, L500.4050, L3300.0960, L3100.5310 #### [facility] Laboratory [address] [place], [place], [phone] (093) AST [Catalytic activity/Vol] 26 U/L Normal <=37 [facility] Comment on above: Performed By: #### L 503.0105, L501.9520, L501.9910, L501.9985, L400.0001, L100.0100, L500.4100, L500.4050, L3300.0960, L3100.5310 #### [facility] Laboratory [address] [place], [place], [phone] (716) Bilirubin [Mass/Vol] 0.43 mg/dL Normal 0.00-1.30 [facility] Comment on above: Performed By: #### L 503.0105, L501.9520, L501.9910, L501.9985, L400.0001, L100.0100, L500.4100, L500.4050, L3300.0960, L3100.5310 #### [facility] Laboratory [address] [place], [address] BUN/CRE 15.1 RATIO Normal 10-20 [facility] Comment on above: Performed By: #### L 503.0105, L501.9520, L501.9910, L501.9985, L400.0001, L100.0100, L500.4100, L500.4050, L3300.0960, L3100.5310 #### [facility] Laboratory [address] [place], [address] Calcium [Mass/Vol] 9.6 mg/dL Normal 7.6-11.0 [facility] Comment on above: Performed By: #### L 503.0105, L501.9520, L501.9910, L501.9985, L400.0001, L100.0100, L500.4100, L500.4050, L3300.0960, L3100.5310 #### [facility] Laboratory [address] [place], [address] Chloride [Moles/Vol] 100 mmol/L Normal 98-108 [facility] Comment on above: Performed By: #### L 503.0105, L501.9520, L501.9910, L501.9985, L400.0001, L100.0100, L500.4100, L500.4050, L3300.0960, L3100.5310 #### [facility] Laboratory [address] [place], [address] CO2 [Moles/Vol] 22.8 mmol/L Normal 21.0-32.0 [facility] Comment on above: Performed By: #### L 503.0105, L501.9520, L501.9910, L501.9985, L400.0001, L100.0100, L500.4100, L500.4050, L3300.0960, L3100.5310 #### [facility] Laboratory [address] [place], [place], [phone] (451) Creatinine [Mass/Vol] 1.25 mg/dL High 0.70-1.20 [facility] Comment on above: Performed By: #### L 503.0105, L501.9520, L501.9910, L501.9985, L400.0001, L100.0100, L500.4100, L500.4050, L3300.0960, L3100.5310 #### [facility] Laboratory [address] [place], [address] (617) GAP 14 Normal 5-15 [facility] Comment on above: Performed By: #### L 503.0105, L501.9520, L501.9910, L501.9985, L400.0001, L100.0100, L500.4100, L500.4050, L3300.0960, L3100.5310 #### [facility] Laboratory [address] [place], [address] GFR/1.73 sq M.predicted among non-blacks MDRD (S/P/Bld) [Vol rate/Area] 67 mL/min/{1.73_m2} Normal >60 [facility] Comment on above: Result Comment: mL/m in/1.73m2 CKD-EPI Creatinine Equation (2020) Performed By: #### L 503.0105, L501.9520, L501.9910, L501.9985, L400.0001, L100.0100, L500.4100, L500.4050, L3300.0960, L3100.5310 #### [facility] Laboratory [address] [place], [place], [id number] Globulin (S) [Mass/Vol] 2.7 g/dL Normal 2.2-4.2 [facility] Comment on above: Performed By: #### L 503.0105, L501.9520, L501.9910, L501.9985, L400.0001, L100.0100, L500.4100, L500.4050, L3300.0960, L3100.5310 #### [facility] Laboratory [address] [place], [address] Glucose [Mass/Vol] 92 mg/dL Normal 70-99 [facility] Comment on above: Performed By: #### L 503.0105, L501.9520, L501.9910, L501.9985, L400.0001, L100.0100, L500.4100, L500.4050, L3300.0960, L3100.5310 #### [facility] Laboratory [address] [place], [address] Potassium [Moles/Vol] 4.0 mmol/L Normal 3.3-5.1 [facility] Comment on above: Performed By: #### L 503.0105, L501.9520, L501.9910, L501.9985, L400.0001, L100.0100, L500.4100, L500.4050, L3300.0960, L3100.5310 #### [facility] Laboratory [address] [place], [address] Sodium [Moles/Vol] 136 mmol/L Normal 133-145 [facility] Comment on above: Performed By: #### L 503.0105, L501.9520, L501.9910, L501.9985, L400.0001, L100.0100, L500.4100, L500.4050, L3300.0960, L3100.5310 #### [facility] Laboratory [address] [place], [address] T PROT 7.4 g/dL Normal 5.9-8.4 [facility] Comment on above: Performed By: #### L 503.0105, L501.9520, L501.9910, L501.9985, L400.0001, L100.0100, L500.4100, L500.4050, L3300.0960, L3100.5310 #### [facility] Laboratory [address] [place], [place], [phone] (686) Urea nitrogen [Mass/Vol] 19 mg/dL Normal 4-19 [facility] Comment on above: Performed By: #### L 503.0105, L501.9520, L501.9910, L501.9985, L400.0001, L100.0100, L500.4100, L500.4050, L3300.0960, L3100.5310 #### [facility] Laboratory [address] [place], [place], [phone] (258) Eosinophil percentageOrdered By: Zebulun Beam on 09-26-2024 Eosinophils/100 WBC (Bld) 4.1 % 0-5 [facility] Erythrocyte distribution wid th ratioOrdered By: Zebulun Beam on 09-26-2024 Erythrocyte distribution width (RBC) [Ratio] 14.0 % 11.6-14.6 [facility] Erythrocyte distribution wid th standard deviationOrdered By: Zebulun Beam on 09-26-2024 Erythrocyte distribution width (RBC) [Ratio] 40.5 fl 35.1-43.9 [facility] Ferritinon 09-26-2024 Ferritin [Mass/Vol] 89 ng/mL Normal 37-417 [facility] Comment on above: Performed By: #### L 503.0105, L501.9520, L501.9910, L501.9985, L400.0001, L100.0100, L500.4100, L500.4050, L3300.0960, L3100.5310 #### [facility] Laboratory [address] [place], [place], [id number] Free testosterone percentage Ordered By: Zebulun Beam on 09-26-2024 Testosterone Free/Testosterone.total [Mass fraction] 2.56 % 1.50-4.20 [facility] Comment on above: Performed at: CB - [facility] [id number] [place], [place] [id number] Director: Loy Lopez PhD, Phone: [phone] at: - [facility] [address] [id number] Director: Sylvia Chapman MD, Phone: [phone] Glomerular filtration rate ( GFR) estimation/1.73 sq m using serum, plasma, or whole bOrdered By: Faheem Hyde on 09-26-2024 GFR/1.73 sq M.predicted among non-blacks MDRD (S/P/Bld) [Vol rate/Area] 67 mL/min/{1.73_m2} >60 [facility] Comment on above: mL/min/1.73m2 CKD-EP I Creatinine Equation (2020) Hematocrit Auto (Bld) [Volum e fraction]Ordered By: Faheem Hyde on 09-26-2024 Hematocrit (Bld) [Volume fraction] 42.1 % 40-54 [facility] Hemoglobin measurementOrdere d By: Faheem Hyde on 09-26-2024 Hemoglobin (Bld) [Mass/Vol] 15.0 g/dL 13.0-16.5 [facility] Immature granulocytes/100 WB C Auto (Bld)Ordered By: Faheem Hyde on 09-26-2024 Immature granulocytes/100 WBC (Bld) 0.400 % 0.0-0.9 [facility] Comment on above: IG% - Immature Granu locytes (promyelocytes, myelocytes and metamyelocytes) > 1% indicates that a LEFT SHIFT is Present. Iron measurement (mass/mass) Ordered By: Faheem Hyde on 09-26-2024 Iron (Unsp spec) [Mass/Mass] 47 ug/dL Low 65-175 [facility] Iron+Iron Binding Capacityon 09-26-2024 Iron [Mass/Vol] 47 ug/dL Low 65-175 [facility] Comment on above: Performed By: #### L 503.0105, L501.9520, L501.9910, L501.9985, L400.0001, L100.0100, L500.4100, L500.4050, L3300.0960, L3100.5310 #### [facility] Laboratory [address] [place], [address] IRON SATURATION 14.0 Normal 9-55 [facility] Comment on above: Performed By: #### L 503.0105, L501.9520, L501.9910, L501.9985, L400.0001, L100.0100, L500.4100, L500.4050, L3300.0960, L3100.5310 #### [facility] Laboratory [address] [place], [address] TIBC 332 ug/dL Normal 250-450 [facility] Comment on above: Performed By: #### L 503.0105, L501.9520, L501.9910, L501.9985, L400.0001, L100.0100, L500.4100, L500.4050, L3300.0960, L3100.5310 #### [facility] Laboratory [address] [place], [address] UIBC 285 ug/dL Normal 228-428 [facility] Comment on above: Performed By: #### L 503.0105, L501.9520, L501.9910, L501.9985, L400.0001, L100.0100, L500.4100, L500.4050, L3300.0960, L3100.5310 #### [facility] Laboratory [address] [place], [address] Laboratory - Chemistry and C hemistry - challengeOrdered By: Zebulun Beam on 09-26-2024 AST [Catalytic activity/Vol] 26 U/L <38 [facility] MCV (mean corpuscular volume ) determinationOrdered By: Zebulun Beam on 09-26-2024 MCV (RBC) [Entitic vol] 81.1 fL 80-94 [facility] Mean corpuscular hemoglobin (MCH) determinationOrdered By: Zebulun Beam on 09-26-2024 MCH (RBC) [Entitic mass] 28.9 pg 27.0-32.0 [facility] Mean corpuscular hemoglobin concentration (MCHC) determinationOrdered By: Jennifern Beam on 09-26-2024 MCHC (RBC) [Mass/Vol] 35.6 g/dL 32-36 [facility] Mean platelet volume determi nationOrdered By: Faheem Beam on 09-26-2024 Platelet mean volume (Bld) [Entitic vol] 9.6 fL 6.2-12.0 [facility] Monocyte percentageOrdered B y: Faheem Beam on 09-26-2024 Monocytes/100 WBC (Bld) 6.0 % 0-10 [facility] Neutrophil percentageOrdered By: Faheem Beam on 09-26-2024 Neutrophils/100 WBC (Bld) 48.6 % 47-70 [facility] No Panel InformationOrdered By: Faheem Beam on 09-26-2024 Unsaturated Iron Binding Capacity 285 ug/dL 228-428 [facility] Nucleated red blood cell per centageOrdered By: Faheem Beam on 09-26-2024 Nucleated RBC/100 WBC (Bld) [Ratio] 0 % 0-5 [facility] Platelet countOrdered By: Pablo Hyde on 09-26-2024 Platelets (Bld) [#/Vol] 304 10*3/uL 150-450 [facility] Potassium measurement (mass/ volume)Ordered By: Faheem Hyde on 09-26-2024 Potassium (Unsp spec) [Mass/Vol] 4.0 mmol/L 3.3-5.1 [facility] RBC Auto (Bld) [#/Vol]Ordere d By: Faheem Beam on 09-26-2024 RBC (Bld) [#/Vol] 5.19 10*6/uL 4.6-6.2 [facility] Serum creatinine measurement (mass/volume)Ordered By: Faheem Beam on 09-26-2024 Creatinine [Mass/Vol] 1.25 mg/dL High 0.70-1.20 [facility] Serum globulin measurementOr dered By: Faheem Beam on 09-26-2024 Globulin (S) [Mass/Vol] 2.7 g/dL 2.2-4.2 [facility] Serum glucose measurement (m ass/volume)Ordered By: Faheem Hyde on 09-26-2024 Glucose [Mass/Vol] 92 mg/dL 70-99 [facility] Serum or plasma alanine hollins otransferase (ALT) measurementOrdered By: Faheem Hyde on 09-26-2024 ALT [Catalytic activity/Vol] 22 U/L <47 [facility] Serum or plasma albumin alexandrea urement (mass/volume)Ordered By: Faheem Hyde on 09-26-2024 Albumin [Mass/Vol] 4.7 g/dL 3.5-5.0 [facility] Serum or plasma albumin/glob ulin mass ratioOrdered By: Faheem Hyde on 09-26-2024 Albumin/Globulin [Mass ratio] 1.8 {ratio} 0.9-2.4 [facility] Serum or plasma alkaline emmanuel sphatase measurementOrdered By: Faheem Hyde on 09-26-2024 ALP [Catalytic activity/Vol] 68 U/L 40-129 [facility] Serum or plasma calcium alexandrea urement (mass/volume)Ordered By: Faheem Hyde on 09-26-2024 Calcium [Mass/Vol] 9.6 mg/dL 7.6-11.0 [facility] Serum or plasma ferritin celi surement (mass/volume)Ordered By: Faheem Hyde on 09-26-2024 Ferritin [Mass/Vol] 89 ng/mL 37-417 [facility] Serum or plasma free testost erone measurement (mass/volume)Ordered By: Faheem Hyde on 09-26-2024 Testosterone Free [Mass/Vol] 7.60 ng/dL 5.00-21.00 [facility] Serum or plasma iron saturat ion measurement (mass fraction)Ordered By: Faheem Hyde on 09-26-2024 Iron saturation [Mass fraction] 14.0 % 9-55 [facility] Serum or plasma urea nitroge n measurement (mass/volume)Ordered By: Faheem Hyde on 09-26-2024 Urea nitrogen [Mass/Vol] 19 mg/dL 4-19 [facility] Sodium levelOrdered By: Pabloyennifer mckeon Barrett on 09-26-2024 Sodium [Moles/Vol] 136 mmol/L 133-145 [facility] TSH DL <= 0.005 mIU/L QnOrde red By: Pablotrudy Beam on 09-26-2024 TSH Qn 1.860 uIU/mL 0.300-4.200 [facility] Testosterone, totalOrdered B y: Faheem Barrett on 09-26-2024 Testosterone [Mass/Vol] 297 ng/dL 264-916 [facility] Comment on above: Adult male reference interval is based on a population ofhealthy nonobese males (BMI <30) between 19 and 39 yearsold. Devan et.al. JCEM 2017,102;5269-7807. PMID:[id number]. Thyroid Stim Hormone (TSH)on 09-26-2024 TSH 1.860 uIU/mL Normal 0.300-4.200 [facility] Comment on above: Performed By: #### L 503.0105, L501.9520, L501.9910, L501.9985, L400.0001, L100.0100, L500.4100, L500.4050, L3300.0960, L3100.5310 #### [facility] Laboratory [address] [place], [address] Total proteinOrdered By: Chevy lety Barrett on 09-26-2024 Protein [Mass/Vol] 7.4 g/dL 5.9-8.4 [facility] Vitamin D,25 Hydroxyon 09-26 Vitamin D 25-OH 74.2 ng/mL Normal 30-100 [facility] Comment on above: Result Comment: Lisa min D Status Deficiency: <20 ng/mL (50nmol/L) Insufficiency: 20-30 ng/mL (50-75 nmol/L) Sufficiency: 30-100 ng/mL (75-250 nmol/L) Toxicity: >100 ng/mL (>250 nmol/L) Performed By: #### L 503.0105, L501.9520, L501.9910, L501.9985, L400.0001, L100.0100, L500.4100, L500.4050, L3300.0960, L3100.5310 #### [facility] [place], [address] White blood cell (WBC) count Ordered By: Faheem Hyde on 09-26-2024 WBC (Bld) [#/Vol] 7.1 10*3/uL 4.4-11.0 [facility] Neurology Visit Reporton Neurology Visit Report [facility] [address], [address] [place] [address] OFFICE VISIT Date of Service: 08/29/24 MR#: [id number] Acct: [id number] Name: HAYDEN PENDLETON Rep #: [id number] : 1965 Provider: Dr. Terrell schmidt MD Age/Sex: 59/M [place] [facility] Status: Signed HPI HPI Details: Interim History: [...] (more content not included)... Normal [facility] GURPREET + Protein Elect, Serumon 08-07-2024 Albumin [Mass/Vol] 4.1 g/dL Normal 2.9-4.4 [facility] Comment on above: Order Comment: Y Performed By: #### L 503.0105, L501.9520, L501.9910, L501.9985, L400.0001, L100.0100, L500.4100, L500.4050, L3300.0960, L3100.5310 #### [facility] Laboratory [address] [place], [address] (430) Albumin/Globulin [Mass ratio] 1.4 {ratio} Normal 0.7-1.7 [facility] Comment on above: Order Comment: Y Performed By: #### L 503.0105, L501.9520, L501.9910, L501.9985, L400.0001, L100.0100, L500.4100, L500.4050, L3300.0960, L3100.5310 #### [facility] Laboratory [address] [place], [address] PXNHW-3-FPLW 0.2 g/dL Normal 0.0-0.4 [facility] Comment on above: Order Comment: Y Performed By: #### L 503.0105, L501.9520, L501.9910, L501.9985, L400.0001, L100.0100, L500.4100, L500.4050, L3300.0960, L3100.5310 #### [facility] Laboratory [address] [place], [address] KCOFD-[id number] 0.7 g/dL Normal 0.4-1.0 [facility] Comment on above: Order Comment: Y Performed By: #### L 503.0105, L501.9520, L501.9910, L501.9985, L400.0001, L100.0100, L500.4100, L500.4050, L3300.0960, L3100.5310 #### [facility] Laboratory [address] [place], [place], [phone] (753) BETA GLOBULIN 1.2 g/dL Normal 0.7-1.3 [facility] Comment on above: Order Comment: Y Performed By: #### L 503.0105, L501.9520, L501.9910, L501.9985, L400.0001, L100.0100, L500.4100, L500.4050, L3300.0960, L3100.5310 #### [facility] Laboratory [address] [place], [place], [phone] (313) GAMMA GLOBULIN 0.9 g/dL Normal 0.4-1.8 [facility] Comment on above: Order Comment: Y Performed By: #### L 503.0105, L501.9520, L501.9910, L501.9985, L400.0001, L100.0100, L500.4100, L500.4050, L3300.0960, L3100.5310 #### [facility] Laboratory [address] [place], [address] Globulin (S) [Mass/Vol] 3.0 g/dL Normal 2.2-3.9 [facility] Comment on above: Order Comment: Y Performed By: #### L 503.0105, L501.9520, L501.9910, L501.9985, L400.0001, L100.0100, L500.4100, L500.4050, L3300.0960, L3100.5310 #### [facility] Laboratory [address] [place], [address] GURPREET RESULT,S Comment Normal . [facility] Comment on above: Order Comment: Y Result Comment: No m onoclonality detected. Performed By: #### L 503.0105, L501.9520, L501.9910, L501.9985, L400.0001, L100.0100, L500.4100, L500.4050, L3300.0960, L3100.5310 #### [facility] Laboratory [address] [place], [address] IMMUNOGLOB A QN 203 mg/dL Normal 90-386 [facility] Comment on above: Order Comment: Y Performed By: #### L 503.0105, L501.9520, L501.9910, L501.9985, L400.0001, L100.0100, L500.4100, L500.4050, L3300.0960, L3100.5310 #### [facility] Laboratory [address] [place], [address] IMMUNOGLOB G QN 967 mg/dL Normal 603-1613 [facility] Comment on above: Order Comment: Y Performed By: #### L 503.0105, L501.9520, L501.9910, L501.9985, L400.0001, L100.0100, L500.4100, L500.4050, L3300.0960, L3100.5310 #### [facility] Laboratory [address] [place], [address] IMMUNOGLOB M QN 70 mg/dL Normal 20-172 [facility] Comment on above: Order Comment: Y Performed By: #### L 503.0105, L501.9520, L501.9910, L501.9985, L400.0001, L100.0100, L500.4100, L500.4050, L3300.0960, L3100.5310 #### [facility] Laboratory [address] [place], [address] M-Marky Not Observed Normal Not Observed [facility] Comment on above: Order Comment: Y Performed By: #### L 503.0105, L501.9520, L501.9910, L501.9985, L400.0001, L100.0100, L500.4100, L500.4050, L3300.0960, L3100.5310 #### [facility] Laboratory [address] [place], [place], [phone] (497) NOTE: Comment Normal . [facility] Comment on above: Order Comment: Y Result Comment: Prot ein electrophoresis scan will follow via computer, mail, or homemaking rehabilitation consultant delivery. Performed By: #### L 503.0105, L501.9520, L501.9910, L501.9985, L400.0001, L100.0100, L500.4100, L500.4050, L3300.0960, L3100.5310 #### [facility] Laboratory [address] [place], [place], [id number] Protein [Mass/Vol] 7.1 g/dL Normal 6.0-8.5 [facility] Comment on above: Order Comment: Y Performed By: #### L 503.0105, L501.9520, L501.9910, L501.9985, L400.0001, L100.0100, L500.4100, L500.4050, L3300.0960, L3100.5310 #### [facility] Laboratory [address] [place], [place], [address] Immunofixation Urineon 08-07 GURPREET Urine Comment Normal . [facility] Comment on above: Result Comment: No m onoclonality detected. Performed at: - [facility] [address], [place], [place] [id number] Acquisition Advisor: Loy Lopez PhD, Phone: [phone] Performed By: #### L 503.0105, L501.9520, L501.9910, L501.9985, L400.0001, L100.0100, L500.4100, L500.4050, L3300.0960, L3100.5310 #### [facility] Laboratory [address] [place], [address] Albumin Elph [Mass/Vol]Order ed By: Terrell Quiles on 08-03-2024 Albumin [Mass/Vol] 4.1 g/dL 2.9-4.4 [facility] Interpretation of serum or p lasma protein pattern by immunofixation (narrative resultOrdered By: Terrell Quiles on 08-03-2024 Protein Fractions Immunofixation Naseem [Interp] Not Observed g/dL Not Observed [facility] No Panel InformationOrdered By: Terrell Quiles on 08-03-2024 Addendum Document Comment . [facility] Comment on above: Protein electrophore sis scan will follow via computer,mail, or homemaking rehabilitation consultant delivery. Office Visit Reporton 2024 Office Visit Report [facility] [address] [place] [address] OFFICE VISIT Date of Service: 08/03/24 MR#: [id number] Acct: [id number] Patient: HAYDEN PENDLETON Rep #: [id number] : 1965 Provider: Dr. Terrell schmidt MD Age/Sex: 59/M [place] [facility] [place] Status: Signed Intake Vital Signs 07/05/24 08:14 [...] Performing Provider: Terrell Quiles MD Performing Location: [facility] Administered by: Nikki Watson on 08/03/24 08:45 Dose Route Admin Location Dispensed Lot Number Expiration Date [place] Man ufacturer 1,000 mcg IM left deltoid 1 mL [id number] 07/22/26 [id number] KEVIN HAYNES Comments: The patient presents for [...] Date (if applicable) CC: Normal [facility] Serum globulin measurement ( mass/volume)Ordered By: Terrell Quiles on 08-03-2024 Globulin (S) [Mass/Vol] 3.0 g/dL 2.2-3.9 [facility] Serum or plasma IgA measurem ent (mass/volume)Ordered By: Terrell Quiles on 08-03-2024 IgA [Mass/Vol] 203 mg/dL 90-386 [facility] Serum or plasma IgG measurem ent (mass/volume)Ordered By: Terrell Quiles on 08-03-2024 IgG [Mass/Vol] 967 mg/dL 603-1613 [facility] Serum or plasma alpha 1 glob ulin measurement by electrophoresis (mass/volume)Ordered By: Terrell Quiles on 08-03-2024 Alpha 1 globulin Elph [Mass/Vol] 0.2 g/dL 0.0-0.4 [facility] Alpha 1 globulin Elph [Mass/Vol] 0.7 g/dL 0.4-1.0 [facility] Serum or plasma beta globuli n measurement by electrophoresis (mass/volume)Ordered By: Terrellseven Quiles on 08-03-2024 Beta globulin Elph [Mass/Vol] 1.2 g/dL 0.7-1.3 [facility] Serum or plasma gamma globul in measurement by electrophoresis (mass/volume)Ordered By: Terrell Etta on 08-03-2024 Gamma globulin Elph [Mass/Vol] 0.9 g/dL 0.4-1.8 [facility] Serum or plasma immunoelectr ophoresis interpretation (nominal result)Ordered By: Terrell Quiles on 08-03-2024 Interpretation IEP [Interp] Comment . [facility] Comment on above: No monoclonality det ected. Serum or plasma protein alexandrea urement (mass/volume)Ordered By: Terrell Quiles on 08-03-2024 Protein [Mass/Vol] 7.1 g/dL 6.0-8.5 [facility] L3410.9992on 08-01-2024 [facility] Misc. COMMENT Normal . [facility] Comment on above: Order Comment: CLEAN CATCH Result Comment: Test Ordered: 102237 Metanephrines, Frac., Pl. Free Test(s) 937854-Tqcahfpccipmauv, Pl; 948630-Yupsrwnaxkag, Pl was developed and its performance characteristics determined by [facility]. It has not been cleared or approved by the Food and Drug Administration. Normetanephrine, Pl 104.0 pg/mL Reference Range: 0.0-244.0 Metanephrine, Pl <25.0 pg/mL Reference Range: 0.0-88.0 Performed at: [facility] [address] [id number] Acquisition Advisor: Sylvia Chapman MD, Phone: [phone] Performed at: [address] [id number] Acquisition Advisor: Loy Lopez PhD, Phone: [phone] Performed By: #### L 503.0105, L501.9520, L501.9910, L501.9985, L400.0001, L100.0100, L500.4100, L500.4050, L3300.0960, L3100.5310 #### [facility] Laboratory [address] [place], [address] Folates, RBCon 07-31-2024 Fol.,Hemolysate > 620.0 Normal Not Estab. [facility] Comment on above: Performed By: #### L 503.0105, L501.9520, L501.9910, L501.9985, L400.0001, L100.0100, L500.4100, L500.4050, L3300.0960, L3100.5310 #### [facility] Laboratory [address] [place], [address] Folate, RBC > 1435 Normal >498 [facility] Comment on above: Result Comment: Perf ormed at: - [facility] [address] [id number] Acquisition Advisor: Loy Lopez PhD, Phone: [phone] Performed By: #### L 503.0105, L501.9520, L501.9910, L501.9985, L400.0001, L100.0100, L500.4100, L500.4050, L3300.0960, L3100.5310 #### [facility] Laboratory [address] [place], [address] Hematocrit (Bld) [Volume fraction] 43.2 % Normal 37.5-51.0 [facility] Comment on above: Performed By: #### L 503.0105, L501.9520, L501.9910, L501.9985, L400.0001, L100.0100, L500.4100, L500.4050, L3300.0960, L3100.5310 #### [facility] Laboratory [address] [place], [place], [id number] Erwin Lambda Light Chainson 07-31-2024 FR KAPPA LT CHN 24.0 mg/L Abnormal 3.3-19.4 [facility] Comment on above: Performed By: #### L 503.0105, L501.9520, L501.9910, L501.9985, L400.0001, L100.0100, L500.4100, L500.4050, L3300.0960, L3100.5310 #### [facility] Laboratory [address] [place], [place], [address] FR LAMBDA LT CH 16.9 mg/L Normal 5.7-26.3 [facility] Comment on above: Performed By: #### L 503.0105, L501.9520, L501.9910, L501.9985, L400.0001, L100.0100, L500.4100, L500.4050, L3300.0960, L3100.5310 #### [facility] Laboratory [address] [place], [place], [address] KAPPA/LAMBDA % 1.42 Normal 0.26-1.65 [facility] Comment on above: Performed By: #### L 503.0105, L501.9520, L501.9910, L501.9985, L400.0001, L100.0100, L500.4100, L500.4050, L3300.0960, L3100.5310 #### [facility] Laboratory [address] [place], [place], [id number] Magnetic resonance imaging r eportOrdered By: Reinier Barlow on 07-30-2024 Study report [facility] Services [address] [place] [id number] Spine Cervical W/WO Contrast MR#: [id number] Acct: [id number] Name: HELDERHAYDEN Rep #: [id number] : 1965 M 59 From: Nicho Barlow MD PCP: SHIKHA PathakC Status: REG CLI Study:Spine Cervical W/WO Contrast Date of E sandra: 07/27/24 Exam# [id number] Ordering Dr: Terrell Quiles MD PROCEDURE: SPINE [...] abnormal postcontrast enhancement is noted. Reading [facility] CC: COTTAGE SUPERVISOR-C Jess Rosas; Dr. Terrell Quiles MD ~ Overlock Operator: Signed [facility] Anion gap in Serum or Plasma Ordered By: Terrell Quiles on 07-27-2024 Anion gap [Moles/Vol] 13 mmol/L 5-15 [facility] BUN/creatinine ratioOrdered By: Terrell Quiles on 07-27-2024 Urea nitrogen/Creatinine [Mass ratio] 13.1 mg/mg 10-20 [facility] Bilirubin, totalOrdered By: Terrell Quiles on 07-27-2024 Bilirubin [Mass/Vol] 0.50 mg/dL 0.00-1.30 [facility] Carbon dioxide, total [Moles /volume] in Central venous bloodOrdered By: Terrell Quiles on 07-27-2024 CO2 [Moles/Vol] 22.9 mmol/L 21.0-32.0 [facility] Chloride assayOrdered By: Ra zhen Quiles on 07-27-2024 Chloride [Moles/Vol] 105 mmol/L 98-108 [facility] Comprehensive Metabolic Prof ilon 07-27-2024 Albumin [Mass/Vol] 4.5 g/dL Normal 3.5-5.0 [facility] Comment on above: Performed By: #### L 503.0105, L501.9520, L501.9910, L501.9985, L400.0001, L100.0100, L500.4100, L500.4050, L3300.0960, L3100.5310 #### [facility] Laboratory [address] [place], [place], [id number] (569) Albumin/Globulin [Mass ratio] 1.7 {ratio} Normal 0.9-2.4 [facility] Comment on above: Performed By: #### L 503.0105, L501.9520, L501.9910, L501.9985, L400.0001, L100.0100, L500.4100, L500.4050, L3300.0960, L3100.5310 #### [facility] Laboratory [address] [place], [place], [phone] (802) ALK PHOS 73 U/L Normal 40-129 [facility] Comment on above: Performed By: #### L 503.0105, L501.9520, L501.9910, L501.9985, L400.0001, L100.0100, L500.4100, L500.4050, L3300.0960, L3100.5310 #### [facility] Laboratory [address] [place], [address] ALT [Catalytic activity/Vol] 33 U/L Normal <=46 [facility] Comment on above: Performed By: #### L 503.0105, L501.9520, L501.9910, L501.9985, L400.0001, L100.0100, L500.4100, L500.4050, L3300.0960, L3100.5310 #### [facility] Laboratory [address] [place], [address] AST [Catalytic activity/Vol] 28 U/L Normal <=37 [facility] Comment on above: Performed By: #### L 503.0105, L501.9520, L501.9910, L501.9985, L400.0001, L100.0100, L500.4100, L500.4050, L3300.0960, L3100.5310 #### [facility] Laboratory [address] [place], [address] Bilirubin [Mass/Vol] 0.50 mg/dL Normal 0.00-1.30 [facility] Comment on above: Performed By: #### L 503.0105, L501.9520, L501.9910, L501.9985, L400.0001, L100.0100, L500.4100, L500.4050, L3300.0960, L3100.5310 #### [facility] Laboratory [address] [place], [address] BUN/CRE 13.1 RATIO Normal 10-20 [facility] Comment on above: Performed By: #### L 503.0105, L501.9520, L501.9910, L501.9985, L400.0001, L100.0100, L500.4100, L500.4050, L3300.0960, L3100.5310 #### [facility] Laboratory [address] [place], [address] Calcium [Mass/Vol] 9.4 mg/dL Normal 7.6-11.0 [facility] Comment on above: Performed By: #### L 503.0105, L501.9520, L501.9910, L501.9985, L400.0001, L100.0100, L500.4100, L500.4050, L3300.0960, L3100.5310 #### [facility] Laboratory [address] [place], [address] Chloride [Moles/Vol] 105 mmol/L Normal 98-108 [facility] Comment on above: Performed By: #### L 503.0105, L501.9520, L501.9910, L501.9985, L400.0001, L100.0100, L500.4100, L500.4050, L3300.0960, L3100.5310 #### [facility] Laboratory [address] [facility] [place], [address] CO2 [Moles/Vol] 22.9 mmol/L Normal 21.0-32.0 [facility] Comment on above: Performed By: #### L 503.0105, L501.9520, L501.9910, L501.9985, L400.0001, L100.0100, L500.4100, L500.4050, L3300.0960, L3100.5310 #### [facility] Laboratory [address] [place], [address] Creatinine [Mass/Vol] 1.27 mg/dL High 0.70-1.20 [facility] Comment on above: Performed By: #### L 503.0105, L501.9520, L501.9910, L501.9985, L400.0001, L100.0100, L500.4100, L500.4050, L3300.0960, L3100.5310 #### [facility] Laboratory [address] [place], [address] GAP 13 Normal 5-15 [facility] Comment on above: Performed By: #### L 503.0105, L501.9520, L501.9910, L501.9985, L400.0001, L100.0100, L500.4100, L500.4050, L3300.0960, L3100.5310 #### [facility] Laboratory [address] [place], [address] GFR/1.73 sq M.predicted among non-blacks MDRD (S/P/Bld) [Vol rate/Area] 66 mL/min/{1.73_m2} Normal >60 [facility] Comment on above: Result Comment: mL/m in/1.73m2 CKD-EPI Creatinine Equation (2020) Performed By: #### L 503.0105, L501.9520, L501.9910, L501.9985, L400.0001, L100.0100, L500.4100, L500.4050, L3300.0960, L3100.5310 #### [facility] Laboratory [address] [place], [place], [phone] (867) Globulin (S) [Mass/Vol] 2.6 g/dL Normal 2.2-4.2 [facility] Comment on above: Performed By: #### L 503.0105, L501.9520, L501.9910, L501.9985, L400.0001, L100.0100, L500.4100, L500.4050, L3300.0960, L3100.5310 #### [facility] Laboratory [address] [place], [address] Glucose [Mass/Vol] 132 mg/dL High 70-99 [facility] Comment on above: Performed By: #### L 503.0105, L501.9520, L501.9910, L501.9985, L400.0001, L100.0100, L500.4100, L500.4050, L3300.0960, L3100.5310 #### [facility] Laboratory [address] [place], [place], [phone] (910) Potassium [Moles/Vol] 3.9 mmol/L Normal 3.3-5.1 [facility] Comment on above: Performed By: #### L 503.0105, L501.9520, L501.9910, L501.9985, L400.0001, L100.0100, L500.4100, L500.4050, L3300.0960, L3100.5310 #### [facility] Laboratory [address] [facility] [place], [address] (264) Sodium [Moles/Vol] 140 mmol/L Normal 133-145 [facility] Comment on above: Performed By: #### L 503.0105, L501.9520, L501.9910, L501.9985, L400.0001, L100.0100, L500.4100, L500.4050, L3300.0960, L3100.5310 #### [facility] Laboratory [address] [facility] [place], [place], [phone] (688) T PROT 7.1 g/dL Normal 5.9-8.4 [facility] Comment on above: Performed By: #### L 503.0105, L501.9520, L501.9910, L501.9985, L400.0001, L100.0100, L500.4100, L500.4050, L3300.0960, L3100.5310 #### [facility] Laboratory [address] [place], [address] Urea nitrogen [Mass/Vol] 17 mg/dL Normal 4-19 [facility] Comment on above: Performed By: #### L 503.0105, L501.9520, L501.9910, L501.9985, L400.0001, L100.0100, L500.4100, L500.4050, L3300.0960, L3100.5310 #### [facility] [place], [address] Erythrocyte folate measureme nt with hematocritOrdered By: Terrell Quiles on 07-27-2024 Hematocrit (Bld) [Volume fraction] 43.2 % 37.5-51.0 [facility] Glomerular filtration rate ( GFR) estimation/1.73 sq m using serum, plasma, or whole bOrdered By: Terrell Quiles on 07-27-2024 GFR/1.73 sq M.predicted among non-blacks MDRD (S/P/Bld) [Vol rate/Area] 66 mL/min/{1.73_m2} >60 [facility] Comment on above: mL/min/1.73m2 CKD-EP I Creatinine Equation (2020) Laboratory - Chemistry and C hemistry - challengeOrdered By: Terrellseven Quiles on 07-27-2024 AST [Catalytic activity/Vol] 28 U/L <38 [facility] Potassium measurement (mass/ volume)Ordered By: [facility] on 07-27-2024 Potassium (Unsp spec) [Mass/Vol] 3.9 mmol/L 3.3-5.1 [facility] Serum creatinine measurement (mass/volume)Ordered By: Terrell Quiles on 07-27-2024 Creatinine [Mass/Vol] 1.27 mg/dL High 0.70-1.20 [facility] Serum globulin measurementOr dered By: Terrell Quiles on 07-27-2024 Globulin (S) [Mass/Vol] 2.6 g/dL 2.2-4.2 [facility] Serum glucose measurement (m ass/volume)Ordered By: Terrell Quiles on 07-27-2024 Glucose [Mass/Vol] 132 mg/dL High 70-99 [facility] Serum immunoglobulin kappa l ight chains/immunoglobulin lambda light chains mass ratioOrdered By: Terrell [facility] 07-27-2024 Immunoglobulin light chains.kappa/Immunoglobul in light chains.lambda (S) [Mass ratio] 1.42 0.26-1.65 [facility] Serum or plasma alanine hollins otransferase (ALT) measurementOrdered By: Terrell Quiles on 07-27-2024 ALT [Catalytic activity/Vol] 33 U/L <47 [facility] Serum or plasma albumin alexandrea urement (mass/volume)Ordered By: Terrell Quiles on 07-27-2024 Albumin [Mass/Vol] 4.5 g/dL 3.5-5.0 [facility] Serum or plasma albumin/glob ulin mass ratioOrdered By: Terrell Quiles on 07-27-2024 Albumin/Globulin [Mass ratio] 1.7 {ratio} 0.9-2.4 [facility] Serum or plasma alkaline emmanuel sphatase measurementOrdered By: Terrell Quiles on 07-27-2024 ALP [Catalytic activity/Vol] 73 U/L 40-129 [facility] Serum or plasma calcium alexandrea urement (mass/volume)Ordered By: Terrell Quiles on 07-27-2024 Calcium [Mass/Vol] 9.4 mg/dL 7.6-11.0 [facility] Serum or plasma immunoglobul in kappa light chains measurement (mass/volume)Ordered By: Terrell Quiles on 07-27-2024 Immunoglobulin light chains.kappa [Mass/Vol] 24.0 mg/L High 3.3-19.4 [facility] Serum or plasma urea nitroge n measurement (mass/volume)Ordered By: Terrell Quiles on 07-27-2024 Urea nitrogen [Mass/Vol] 17 mg/dL 4-19 [facility] Sodium levelOrdered By: Elizabeth Quiles on 07-27-2024 Sodium [Moles/Vol] 140 mmol/L 133-145 [facility] Spine Cervical W/WO Contrast on 07-27-2024 Spine Cervical W/WO Contrast [facility] [address] [place] [address] Spine Cervical W/WO Contrast MR#: [id number] Acct: [id number] Name: HAYDEN PENDLETON Rep #: [id number] : 1965 M 59 From: Reinier dominguez MD PCP: SEBASTIÁN Pathak Status: REG CLI Study: Spine Cervical W/WO Contrast Date of Exam: Exam# [id number] Ordering Dr: Terrell Quiles MD PROCEDURE: SPINE [...] abnormal postcontrast enhancement is noted. Reading [facility] CC: SEBASTIÁN Rosas; Dr. Terrell Quiles MD Overlock Operator: Signed Normal [facility] Total proteinOrdered By: Yohannes Quiles on 07-27-2024 Protein [Mass/Vol] 7.1 g/dL 5.9-8.4 [facility] 07-13-2024 [facility] Telephone (AGCARDHWG ) HAYDEN PENDLETON ([id number]) 1965 M Date Time Provider Department 07/13/24 [facility] During your visit today, we recorded the [...] Encounter Status:Closed by ANA GRIJALVA on 07/13/24 [facility] CNTHERAPYon 07-12-2024 CNTHERAPY OT/PT/Speech Visit (PTWS) HAYDEN PENDLETON ([id number]) 1965 M Date Time Provider Department 07/12/24 9:45 AM CELIA SANDERS PTWS Date Time Provider Department Center 07/12/2024 9:45 AM [id number] SANDERS PTWS Mynor Garg Reason for Visit: [...] inhaler Inhale 2 Puffs as instructed. Normal [facility] Neurology Visit Reporton Neurology Visit Report [facility] [address] [facility] [address], [address] [place] [address] OFFICE VISIT Date of Service: 07/05/24 MR#: [id number] Acct: [id number] Name: HAYDEN PENDLETON Rep #: [id number] : 1965 Provider: Dr. Terrell schmidt MD Age/Sex: 59/M [place] [facility] Status: Signed HPI HPI Details: History: Hayden [...] has not had any significant headaches since 2018. He has gastrointestinal reflux symptoms. Omeprazole is [...] (more content not included)... Normal [facility] CNTHERAPYon 07-03-2024 CNTHERAPY OT/PT/Speech Visit (PTWS) HAYDEN PENDLETON ([id number]) 1965 M Date Time Provider Department 07/03/24 8:00 AM CELIA SANDERS PTWS Date Time Provider Department Center 07/03/2024 8:00 AM [id number] SANDERS PTWS [facility] Reason for Visit: PT Baldev [997] Primary Visit Diagnosis:Vestibular hypofunction, unspecified laterality [H83.2X9] [...] inhaler Inhale 2 Puffs as instructed. Normal [facility] Lyme Screen W/Reflex WBon LYME SCREEN Ab Negative Normal Negative [facility] Comment on above: Result Comment: Lyme antibodies not detected. Reflex testing is not indicated. No laboratory evidence of infection with B. burgdorferi (Lyme disease). Negative results may occur in patients recently infected (less than or equal to 14 days) with B. burgdorferi. If recent infection is suspected, repeat testing on a new sample collected in 7 to 14 days is recommended. Performed at: [address] [id number] Acquisition Advisor: Loy Lopez PhD, Phone: [phone] Performed By: #### L 503.0105, L501.9520, L501.9910, L501.9985, L400.0001, L100.0100, L500.4100, L500.4050, L3300.0960, L3100.5310 #### [facility] Laboratory [address] [place], [address] CNTHERAPYon 06-21-2024 CNTHERAPY OT/PT/Speech Visit (LTOT) HAYDEN PENDLETON ([id number]) 1965 M Date Time Provider Department 06/21/24 3:00 PM CLARITZA VARGAS LTOT Date Time Provider Department Center 06/21/2024 3:00 PM [id number] , KRI*LTOT [facility] Reason for Visit: OT EVAL [748] [...] mcg/actuation inhaler Inhale 2 Puffs as instructed. [facility] ALLIED HEALTHon 06-13-2024 ALLIED [facility]ALTH HNO ID: [id number] Author: JESS SALAS Chaplain Service: ? 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 SIGNATURE: Chaplain Terrell PATIENT NAME: Hayden Pendleton DATE: June 13, 2024 TIME: 2:08 PM PAGER/CONTACT #: [phone] [facility] CNDSon 06-13-2024 [facility] HNO ID: [id number] Author: AV COROANDO DO Service: Hospital Medicine Author Type: Physician [...] Patient underwent negative non contrast MRI at [facility] to rule out stroke. He was being [...] to call for appointment?: Yes Jess Rosas, [facility] [phone] [address] [facility] [address] PCP Requested Referral Additional Provider to Provider Information: 59 y/o male with PMHx of CAD, arthritis, HTN, HLD who presented for evaluation of progressive lethargy, weakness, dizziness and disequilibrium. Patient underwent negative non contrast MRI at [facility] to rule out stroke. He was being [...] results. FOLLOW-UP APPOINTMENTS ALREADY SCHEDULED WITH A [facility] PROVIDER: No future appointments. ALLERGIES Allergen Reactions Oxycotin [Oxycodone] Rash Prednisone Intolerance flushing of skin-steriods DISCHARGE MEDICATION: Medication List CONTINUE taking these medications aspirin 81 mg chewable tablet Take 1 tablet by mouth once daily. cyclobenzaprine (more content not included)... Normal [facility] Ceruloplasmin SerPl-mCncon 0 06-13-2024 Ceruloplasmin [Mass/Vol] 24 mg/dL Normal 15-30 [facility] Comment on above: Order Comment: Speci men Type: BLOOD SPECIMENOrdering Facility: [facility] Address: [address] [place] [address] Performed By: #### 2 064-4 ####[facility] LABCLIA [id number] [address] THERAPY NTon 06-13-2024 THERAPY NT HNO ID: [id number] Author: KEY NEGRETE, PT Service: Physical Therapy Author Type: Physical Therapist Type: Therapy (PT/OT/Speech/Resp) Filed: 06/13/2024 13:11 Note Text: Physical Therapy Treatment Summary SERVICE DATE: 06/13/2024 SERVICE TIME: 1120 to 1155 ROOM: [id number] PT 6 Clicks Score: 20 DISCHARGE RECOMMENDATIONS [...] cleans, does yardwork; 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; no assistive devices used for ambulation, has used a cane over the last couple of weeks due to dizziness, unsteady gait SUBJECTIVE Agreeable to PT THERAPY DIAGNOSIS Reduced mobility-other, Muscle Weakness (generalized), Unsteadiness on feet TREATMENT INTERVENTIONS Therapeutic Activity (56667), Neuromuscular Reeducation (27467) Therapeutic Activity (02527) Treatment Minutes: 20 $ Therapeutic Activity (17819) Billed Units: 1 unit See grid for functional mobility facilitated and education provided Neuromuscular Reeducation (55913) Treatment Minutes: 15 $ Neuromuscular Reeducation (86470) Billed Units: 1 unit Educated patient on [...] Toward Go (more content not included)... 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 Results are as follows: Version 8.1 Total Score: 20/30 Visuospatial/Executiv e Alternating [place] Makin Visuoconstructional Skills (Shape): 0 Visuoconstructional Skills [...] gait and mobility-other TREATMENT INTERVENTIONS Evaluation, Self Fdc Management (12828), Cognitive Training (76703 and 88465) Timed Code Treatment (minutes): 30 Skilled Treatment Time (minutes): 45 $ Evaluation - Moderate (14877) Billed Units: 1 unit Lindsay (more content not included)... Normal [facility] BRIEF OP NOTon 06-12-2024 BRIEF OP NOT HNO ID: [id number] Author: HIGINIO LEONE APRN.[facility] Service: Interventional Radiology Author Type: Nurse Practitioner Type: Brief Op Note Filed: 06/12/2024 11:47 Note Text: LUMBAR PUNCTURE BRIEF OPERATIVE / PROCEDURE NOTE LOG ID: [id number] SURGERY/PROCEDURE DATE: 06/12/24 Incision/Procedure Start Time: 11:37 AM Incision Close/Procedure End Time: 11:44 AM PROCEDURALIST(S) AND ASSISTANT DIRECTOR OF NURSING(S): Surgeon(s) and Role: Higinio Leone APRN.CNP SURGERY/PROCEDURE(S): Fluoroscopy guided diagnostic lumbar puncture with local anesthetic ANESTHESIA: Local FINDINGS: L4/5 midline, OP <9, 16 ml clear CSF in 4 tubes ESTIMATED BLOOD LOSS: 0 ml SPECIMENS: 16 ml . Specimen obtained, labeled and verified with Research Staff Member (RT); RT verbalized specimen sent to lab. COMPLICATIONS: None CLOSURE TECHNIQUE: N/A PRE-OP/PRE-PROCEDURE DIAGNOSIS: cerebellar ataxia POST-OP/POST-PROCEDUR E DIAGNOSIS: Same as Preop SIGNATURE: Higinio Leone APRN.CNP PATIENT NAME: Hayden Pendleton DATE: 06/12/24 TIME: 11:46 AM Normal [facility] Bacteria CSF Culton 06-13-19 Bacteria identified Cx Nom (CSF) CULTURE, CSF: No growth 5 days GRAM STAIN: No organisms seen No Polymorphonuclear Leukocytes Few Mononuclear cells Gram stain performed on cytospun specimen. Normal [facility] Comment on above: Performed By: #### 6 06-4 ####[facility] LABORATORYCLIA [id number] [place] [id number] [facility] CONSULT PROGon 06-12-2024 CONSULT PROG HNO ID: [id number] Author: RAJESH MAK APRN.CNP Service: Neurology General [...] prick. Coordination: Finger-to- nose-finger intact bilaterally and [id number] intact bilaterally. New Labs: WBC (k/uL) Date [...] up with outpatient Rheumatology. Previously established at [facility] - Continued outpatient follow up [...] 12, 2024 TIME: 3:05 PM 1149 Normal [facility] CSF MANUAL DIFFon 06-12-2024 DIF TTL, CSF 100 cells counted Normal [facility] Comment on above: Order Comment: Speci men Type: CEREBROSPINAL FLUID SPECIMENOrdering Facility: [facility] Address: [address] [place] [address] Performed By: #### L [id number], 69139-9 ####[facility] LABORATORYCLIA [id number] [place] [address] [place] LYMPH%, CSF 68 % Normal 50-90 [facility] Comment on above: Order Comment: Speci men Type: CEREBROSPINAL FLUID SPECIMENOrdering Facility: [facility] Address: [address] [place] [address] Performed By: #### L [id number], 00691-3 ####[facility]ATORYCLIA [id number] [place] [address] [place] MACRO%, CSF 2 % High <1 [facility] Comment on above: Order Comment: Speci men Type: CEREBROSPINAL FLUID SPECIMENOrdering Facility: [facility] Address: [address] [place] [address] Performed By: #### L [id number], 65226-9 ####[facility]ORATORYCLIA [id number] [address] [place] MONO%, CSF 29 % Normal 10-50 [facility] Comment on above: Order Comment: Speci men Type: CEREBROSPINAL FLUID SPECIMENOrdering Facility: [facility] Address: [address] [place] [address] Performed By: #### L [id number], 30403-5 ####[facility] LABORATORYCLIA [id number] [address] [place] NEUT%, CSF 1 % Normal 0-3 [facility] Comment on above: Order Comment: Speci men Type: CEREBROSPINAL FLUID SPECIMENOrdering Facility: [facility] Address: [address] [place] [address] Performed By: #### L [id number], 51980-5 ####[facility] LABORATORYCLIA [id number] [address] Cell count panel (CSF)on Clarity (CSF) Clear Normal Clear [facility] Comment on above: Order Comment: Speci men Type: CEREBROSPINAL FLUID SPECIMENOrdering Facility: [facility] Address: [address] [place] [address] Performed By: #### L [id number], 93992-1 ####[facility] LABORATORYCLIA [id number] [address] Clarity (Unsp spec) Not Indicated Normal Clear [facility] Comment on above: Order Comment: Speci men Type: CEREBROSPINAL FLUID SPECIMENOrdering Facility: [facility] Address: [address] [place] [address] Performed By: #### L [id number], 65815-8 ####[facility] LABORATORYCLIA [id number] [address] Color (CSF) Colorless Normal Colorless [facility] Comment on above: Order Comment: Speci men Type: CEREBROSPINAL FLUID SPECIMENOrdering Facility: [facility] Address: [address] [place] [address] Performed By: #### L [id number], 07166-9 ####[facility]ORATORYCLIA [id number] [address] OF [facility] Color (Spun CSF) Not Indicated Normal Colorless [facility] Comment on above: Order Comment: Speci men Type: CEREBROSPINAL FLUID SPECIMENOrdering Facility: [facility] Address: [address] [place] [address] Performed By: #### L [id number], 37146-3 ####[facility] LABORATORYCLIA [id number] [address] [place] CSF TUBE NUMBER Tube 4 Normal [facility] Comment on above: Order Comment: Speci men Type: CEREBROSPINAL FLUID SPECIMENOrdering Facility: [facility] Address: [address] [place] [address] Performed By: #### L [id number], 34854-1 ####[facility] LABORATORYCLIA [id number] [address] [place] RBC Manual cnt (CSF) [#/Vol] 0 cells/uL Normal 0-5 [facility] Comment on above: Order Comment: Speci men Type: CEREBROSPINAL FLUID SPECIMENOrdering Facility: [facility] Address: [address] [place] [address] Performed By: #### L [id number], 09833-2 ####[facility] LABORATORYCLIA [id number] [address] STATES OF [facility] WBC Manual cnt (CSF) [#/Vol] 2 cells/uL Normal 0-5 [facility] Comment on above: Order Comment: Speci men Type: CEREBROSPINAL FLUID SPECIMENOrdering Facility: [facility] Address: [address] [place] [address] Performed By: #### L [id number], 37365-6 ####[facility] LABORATORYCLIA [id number] [address] [place] Glucose CSF-mCncon 5 Glucose (CSF) [Mass/Vol] 76 mg/dL High 40-70 [facility] Comment on above: Order Comment: Speci men Type: CEREBROSPINAL FLUID SPECIMENOrdering Facility: [facility] Address: [address] [place], [place] [id number] Result Comment: Lumb ar CSF glucose values of healthy patients are approximately 60% of the plasma values and must always be compared with a concurrently measured plasma value for adequate clinical interpretation. References: 1. Glucose HK (GLUC3) [package insert V 12.0 [place]]. [facility], [place], [place]. June 2015. 2. Kristy Connell, José HGonzález (2015). Chapter 7: Glucose and Lactate. F. Kezia gomez al.(eds.), Cerebrospinal Fluid in Clinical Neurology. [place]: [employer]. Performed By: #### 2 342-4, 2880-3 ####[facility] LABORATORYCLIA [id number] [address] PARANEOPLASTIC AUTOAB, CSFon 06-12-2024 AMPHIPHYSIN AB, CSF Negative Normal Negative [facility] Comment on above: Order Comment: Zeyad san Type: CEREBROSPINAL FLUID SPECIMENOrdering Facility: [facility] Address: [address] [place] [address] Result Comment: ADDITIONAL INFORMATION This test was developed and its performance characteristics determined by [facility] in a manner consistent with CLIA requirements. This test has not been cleared or approved by the U.S. Food and Drug Administration. Performed By: #### P ARCSF ####[facility] [id number] [place] [address] ANTI-GLIAL NUCLEAR AB TYPE 1, CSF Negative Normal Negative [facility] Comment on above: Order Comment: Zeyad san Type: CEREBROSPINAL FLUID SPECIMENOrdering Facility: [facility] Address: [address] [place] [address] Result Comment: ADDITIONAL INFORMATION This test was developed and its performance characteristics determined by [facility] in a manner consistent with CLIA requirements. This test has not been cleared or approved by the U.S. Food and Drug Administration. Performed By: #### P ARCSF ####[facility] [id number] [place] [address] ANTI-NEURONAL AB TYPE 1, CSF Negative Normal Negative [facility] Comment on above: Order Comment: Zeyad san Type: CEREBROSPINAL FLUID SPECIMENOrdering Facility: [facility] Address: [address] [place] [address] Result Comment: ADDITIONAL INFORMATION This test was developed and its performance characteristics determined by [facility] in a manner consistent with CLIA requirements. This test has not been cleared or approved by the U.S. Food and Drug Administration. Performed By: #### P ARCSF ####[facility] [id number] [place] [address] ANTI-NEURONAL AB TYPE 2, CSF Negative Normal Negative [facility] Comment on above: Order Comment: Zeyad [facility] Type: CEREBROSPINAL FLUID SPECIMENOrdering Facility: [facility] Address: [address] [place] [address] Result Comment: ADDITIONAL INFORMATION This test was developed and its performance characteristics determined by [facility] in a manner consistent with CLIA requirements. This test has not been cleared or approved by the U.S. Food and Drug Administration. Performed By: #### P ARCSF ####[facility] [id number] [place] [address] ANTI-NEURONAL AB TYPE 3, CSF Negative Normal Negative [facility] Comment on above: Order Comment: Zeyad [facility] Type: CEREBROSPINAL FLUID SPECIMENOrdering Facility: [facility] Address: [address] [place] [address] Result Comment: ADDITIONAL INFORMATION This test was developed and its performance characteristics determined by [facility] in a manner consistent with CLIA requirements. This test has not been cleared or approved by the U.S. Food and Drug Administration. Performed By: #### P ARCSF ####[facility] [id number] [place] [address] CRMP-5 IGG, CSF Negative Normal Negative [facility] Comment on above: Order Comment: Specchantel san Type: CEREBROSPINAL FLUID SPECIMENOrdering Facility: [facility] Address: [address] [place] [address] Result Comment: ADDITIONAL INFORMATION This test was developed and its performance characteristics determined by [facility] in a manner consistent with CLIA requirements. This test has not been cleared or approved by the U.S. Food and Drug Administration. Performed By: #### P ARCSF ####[facility] [id number] [place] [address] IFA NOTES None. Normal [facility] Comment on above: Order Comment: Speci jaswinder Type: CEREBROSPINAL FLUID SPECIMENOrdering Facility: [facility] Address: [address] [place] [address] Performed By: #### P SHERITASF ####[facility] [id number] [place] [address] PARANEOPLASTIC INTERP, CSF SEE NOTE Normal [facility] Comment on above: Order Comment: Zeyad san Type: CEREBROSPINAL FLUID SPECIMENOrdering Facility: [facility] Address: [address] [place] [address] Result Comment: A ne gative basic paraneoplastic evaluation result does not rule out all clinically relevant antibodies. If indicated, a comprehensive neurological phenotype-specific autoimmune/paraneoplastic evaluation (e.g. encephalopathy, movement disorders, myelopathy, or axonal neuropathy) should be considered [email or web address] These evaluations include screening cell-based assays optimized for detection of recently discovered antibodies. Performed By: #### P SHERITASF ####[facility] [id number] [place] [address] PURKINJE CELL CYTO AB TYPE 1, CSF Negative Normal Negative [facility] Comment on above: Order Comment: Zeyad san Type: CEREBROSPINAL FLUID SPECIMENOrdering Facility: [facility] Address: [address] [place] [address] Result Comment: ADDITIONAL INFORMATION This test was developed and its performance characteristics determined by [facility] in a manner consistent with CLIA requirements. This test has not been cleared or approved by the U.S. Food and Drug Administration. Performed By: #### P ARCSF ####[facility] [id number] [place] [address] PURKINJE CELL CYTO AB TYPE 2, CSF Negative Normal Negative [facility] Comment on above: Order Comment: Zeyad [facility] Type: CEREBROSPINAL FLUID SPECIMENOrdering Facility: [facility] Address: [address] [place] [address] Result Comment: ADDITIONAL INFORMATION This test was developed and its performance characteristics determined by [facility] in a manner consistent with CLIA requirements. This test has not been cleared or approved by the U.S. Food and Drug Administration. Test Performed by: [facility] [place] [address] Acquisition Advisor: Lilli Fernandez Ph.D.; CLIA# [id number] Performed By: #### P ARCSF ####[facility] [id number] [place] [address] PURKINJE CELL CYTO AB TYPE TR, CSF Negative Normal Negative [facility] Comment on above: Order Comment: [facility] Type: CEREBROSPINAL FLUID SPECIMENOrdering Facility: [facility] Address: [address] [place] [address] Result Comment: ADDITIONAL INFORMATION This test was developed and its performance characteristics determined by [facility] in a manner consistent with CLIA requirements. This test has not been cleared or approved by the U.S. Food and Drug Administration. Performed By: #### P ARCS ####[facility] [id number] [place] [address] Prot CSF-mCncon 06-12-2024 Protein (CSF) [Mass/Vol] 81 mg/dL High 15-45 [facility] Comment on above: Order Comment: Speci men Type: CEREBROSPINAL FLUID SPECIMENOrdering Facility: [facility] Address: [address] [place] [address] Performed By: #### 2 342-4, 2880-3 ####[facility]ORATORYCLIA [id number] [place] [id number] [facility] THERAPY NTon 06-12-2024 THERAPY NT HNO ID: [id number] Author: KEY NEGRETE, PT Service: Physical Therapy Author Type: Physical Therapist Type: Therapy (PT/OT/Speech/Resp) Filed: 06/12/2024 16:24 Note Text: Physical Therapy Evaluation Summary SERVICE DATE: 06/12/2024 SERVICE TIME: 1514 to 1604 ROOM: [place] [address] PT 6 Clicks Score: 20 DISCHARGE RECOMMENDATIONS Outpatient PT Recommended Discharge Equipment: Wheeled Walker ASSESSMENT Response to Therapy Interventions: Good Participation in Activities, Cognitive Deficits Vestibular assessment completed. [place] Hallpike deferred due to LP. Patient with [...] on feet TREATMENT INTERVENTIONS Evaluation, Therapeutic Activity (48136) $ Evaluation-High (16373) Billed Units: 1 unit Therapeutic Activity (83407) Treatment Minutes: 9 $ Therapeutic Activity (30743) Billed Units: 1 unit Educated patient on [...] June 12, 2024 TIME: 4:20 PM Normal [facility] THERAPY NT HNO ID: [id number] Author: PAHLS, ANA, OTR/L Service: Occupational Therapy Author Type: Occupational Therapist Type: Therapy (PT/OT/Speech/Resp) Filed: 06/12/2024 16:19 Note Text: OCCUPATIONAL THERAPY MISSED VISIT SERVICE DATE: 06/12/2024 SERVICE TIME: 153 ROOM: [place] [address] Patient not seen due to Patient Not Available. Attempted to see pt at 1335 - nursing reported pt needed 2+hours bedrest following LP. Re-attempted to see pt at 1537 - pt with PT. Will continue to re-attempt as able. SIGNATURE: Ana Garcia OTR/[place] PATIENT NAME: Hayden Pendleton DATE: June 12, 2024 TIME: 4:18 PM Normal [facility] XR LUMBAR PUNCTURE DIAGNOSTI Con 06-12-2024 [...] lumbar puncture yielding 16 cc of fluid. Overlock Operator: PSCDavid Transcribe Date/Time: Jun 12 2024 12:43P Dictated by : HIGINIO LEONE CNP This examination was interpreted and the report reviewed and electronically signed by: HIGINIO LEONE CNP on Jun 12 2024 12:46PM EST [id number] N Normal [facility] 25([place])D3 [facility] 25-hydroxyvitamin D3 [Mass/Vol] 24.8 ng/mL Low >=30.0 [facility] Comment on above: Order Comment: Speci men Type: BLOOD SPECIMENOrdering Facility: [facility] Address: [address] [place], [place] [id number] Result Comment: Clas sification of 25 [place] Vitamin D status: Deficiency: <= 20.0 ng/ml. Insufficiency: 21.0-29.0 ng/ml. Sufficiency: >= 30.0 ng/ml. Performed By: #### 1 989-3 ####[facility]ATORYCLIA [id number] [address] ALLIED HEALTHon 06-11-2024 ALLIED HEALTH HNO ID: [id number] Author: ANDREA GUILLAUME RT(Cy) Service: ? Author [...] PATIENT PRESENTS WITH AN IMPLANTABLE OR ATTACHED BEATER ENGINEER: No ALLERGIES: Reviewed and unchanged CONTRAST ALLERGY: NO. EXAM: MRI - CONTRAST TYPE: GROUP II PERIPHERAL IV DATA: Inpatient - refer to [facility] documentation RADIOLOGY DEPARTMENT: MR; Exam(s) Completed: Head: Routine Brain SIGNATURE: RT Devan(R) PATIENT NAME: Hayden Pendleton DATE: June 11, 2024 TIME: 8:21 AM Normal [facility] CK SerPl-cCncon 06-11-2024 CK [Catalytic activity/Vol] 59 U/L Normal 51-298 [facility] Comment on above: Order Comment: Speci men Type: BLOOD SPECIMENOrdering Facility: [facility] Address: [address] [place] [address] Performed By: #### 2 157-6, 3016-3 ####[facility] LABORATORYCLIA [id number] [place] [address] [place] CONSULT PROGon 06-11-2024 CONSULT PROG HNO ID: [id number] Author: MAGY LECHUGA APRN.CHRISTINA Service: Neurology General [...] Coags, BMP, Mg, Phos Recent Labs 06/09/24 09 NA 139 K 4.1 CHLOR 103 CO2 [...] PT/OT/ST Supplement Vit D SIGNATURE: Magy Lechuga APRN.CHILDBIRTH AND INFANT CARE TEACHER PATIENT NAME: Hayden Pendleton DATE: June 11, 2024 TIME: 7:15 AM Discussed with: patient, I spent a total of 25 minutes on the date of the service which included preparing to see the patient, [id number] patient care, completing clinical documentation, obtaining and/or reviewing separately obtained history, performing a medically appropriate examination, counseling and educating the patient/family/caregi beck, communicating results to the patient/family/caregi beck, and care coordination. Normal [facility] MRI BRAIN WO/W IVCONon 06-11 MRI BRAIN WO/W IVCON * * *Final Report* * * DATE OF EXAM: Jun 11 2024 8:48AM ELMO 0295 - MRI BRAIN WO/W IVCON / [...] abnormal intracranial enhancement. Chronic changes as described. Overlock Operator: PSCB Transcribe Date/Time: Jun 11 2024 8:54A Dictated by : MERCEDES PAULINO MD This examination was interpreted and the report reviewed and electronically signed by: MERCEDES PAULINO MD on Jun 11 2024 8:57AM EST [id number] Normal [facility] TSH SerPl-aCncon 06-11-2024 TSH Qn 3.910 m[IU]/L Normal 0.270-4.200 [facility] Comment on above: Order Comment: Speci jaswinder Type: BLOOD SPECIMENOrdering Facility: [facility] Address: [address] [place] [address] Performed By: #### 2 157-6, 3016-3 ####[facility] LABORATORYCLIA [id number] [place] [address] [place] [facility] ACETYLCHOLINE REC BINDING AB on 06-10-2024 ACETYLCHOLINE BINDING, QUAL Negative Normal Negative [facility] Comment on above: Order Comment: Speci men Type: BLOOD SPECIMENOrdering Facility: [facility] Address: [address] [place] [address] Result Comment: Anti -acetylcholine receptor binding antibody test is used as an aid in diagnosis of myasthenia gravis. A negative result cannot exclude myasthenia gravis. Clinical correlation is required. Performed By: #### A CHRAB ####[facility]IA [id number] [place] [address] [place] Acetylcholine receptor binding Ab (S) [Moles/Vol] <0.02 Normal <0.21 [facility] Comment on above: Order Comment: Fermini jaswinder Type: BLOOD SPECIMENOrdering Facility: [facility] Address: [address] [place] [address] Performed By: #### A CHRAB ####[facility]CLIA [id number] [place] [address] [place] ACETYLCHOLINE REC BLOCKING A Bon 06-10-2024 ACETYLCHOLINE BLOCKING, QUAL Negative Normal Negative [facility] Comment on above: Order Comment: Fermini jaswinder Type: BLOOD SPECIMENOrdering Facility: [facility] Address: [address] [place] [address] Result Comment: Anti -acetylcholine receptor blocking antibody test is used as an aid in diagnosis of myasthenia gravis. A negative result cannot exclude myasthenia gravis. Clinical correlation is required. Performed By: #### A CEBAB ####[facility] [id number] [place] [address] [place] Acetylcholine receptor blocking Ab/Acetylcholine Ab.total (S) [Molar fraction] <13 Normal <21 [facility] Comment on above: Order Comment: Zeyad san Type: BLOOD SPECIMENOrdering Facility: [facility] Address: [address] [place] [address] Performed By: #### A CEBAB ####[facility] [id number] [address] [place] MUSCLE-SPECIFIC KINASE (MUSK ) AUTOANTIBODY, SERUMon 06-10-2024 MUSK ANTIBODY 0.00 nmol/L Normal 0.00-0.02 [facility] Comment on above: Order Comment: Zeyad jaswinder Type: BLOOD SPECIMENOrdering Facility: [facility] Address: [address] [place] [address] Result Comment: ADDITIONAL INFORMATION This test was developed using an analyte specific reagent. Its performance characteristics were determined by [facility] in a manner consistent with CLIA requirements. This test has not been cleared or approved by the U.S. Food and Drug Administration. Test Performed by: [facility] [place] [address] Acquisition Advisor: Lilli Fernandez Ph.D.; CLIA# [id number] Performed By: #### M USK ####[facility] [id number] [place] [address] MYELOPATHY, AUTOIMMUNE/PARAN EOPLASTIC EVALUATION, SERUMon 06-10-2024 AMPHIPHYSIN AB Negative Normal Negative [facility] Comment on above: Order Comment: Zeyad jaswinder Type: BLOOD SPECIMENOrdering Facility: [facility] Address: [address] [place] [address] Result Comment: ADDITIONAL INFORMATION This test was developed and its performance characteristics determined by [facility] in a manner consistent with CLIA requirements. This test has not been cleared or approved by the U.S. Food and Drug Administration. Performed By: #### Codi ROATHY ####[facility] [id number] [place] [address] ANTI-GLIAL NUCLEAR AB, TYPE 1 Negative Normal Negative [facility] Comment on above: Order Comment: Zeyad san Type: BLOOD SPECIMENOrdering Facility: [facility] Address: [address] [place] [address] Result Comment: ADDITIONAL INFORMATION This test was developed and its performance characteristics determined by [facility] in a manner consistent with CLIA requirements. This test has not been cleared or approved by the U.S. Food and Drug Administration. Performed By: #### Codi ROATHY ####[facility] [id number] [place] [address] ANTI-NEURONAL NUC AB, TYPE 1 Negative Normal Negative [facility] Comment on above: Order Comment: Zeyad san Type: BLOOD SPECIMENOrdering Facility: [facility] Address: [address] [place] [address] Result Comment: ADDITIONAL INFORMATION This test was developed and its performance characteristics determined by [facility] in a manner consistent with CLIA requirements. This test has not been cleared or approved by the U.S. Food and Drug Administration. Performed By: #### Codi ROATHY ####[facility] [id number] [place] [address] ANTI-NEURONAL NUC AB, TYPE 2 Negative Normal Negative [facility] Comment on above: Order Comment: Zeyad [facility] Type: BLOOD SPECIMENOrdering Facility: [facility] Address: [address] [place] [address] Result Comment: ADDITIONAL INFORMATION This test was developed and its performance characteristics determined by [facility] in a manner consistent with CLIA requirements. This test has not been cleared or approved by the U.S. Food and Drug Administration. Performed By: #### M LPTHY ####[facility] [id number] [place] [address] ANTI-NEURONAL NUC AB, TYPE 3 Negative Normal Negative [facility] Comment on above: Order Comment: Zeyad san Type: BLOOD SPECIMENOrdering Facility: [facility] Address: [address] [place] [address] Result Comment: ADDITIONAL INFORMATION This test was developed and its performance characteristics determined by [facility] in a manner consistent with CLIA requirements. This test has not been cleared or approved by the U.S. Food and Drug Administration. Performed By: #### Codi LPTHY ####[facility] [id number] [place] [id number] AP3B2 IFA, S Negative Normal Negative [facility] Comment on above: Order Comment: Zeyad san Type: BLOOD SPECIMENOrdering Facility: [facility] Address: [address] [place] [address] Result Comment: ADDITIONAL INFORMATION This test was developed and its performance characteristics determined by [facility] in a manner consistent with CLIA requirements. This test has not been cleared or approved by the U.S. Food and Drug Administration. Performed By: #### Codi LPTHY ####[facility] [id number] [place] [address] AUTOIMMUNE MYELOPATHY INTERP, S SEE NOTE Normal [facility] Comment on above: Order Comment: Zeyad san Type: BLOOD SPECIMENOrdering Facility: [facility] Address: [address] [place] [address] Result Comment: No i nformative autoantibodies were detected in this evaluation. However, a negative result does not exclude autoimmune myelopathy, idiopathic or paraneoplastic. Sensitivity and specificity of antibody testing are enhanced by testing both serum and CSF. Performed By: #### Codi ROATHY ####[facility] [id number] [place] [address] CRMP-5-IGG [place], S ALSO USED BY TESTS: CRMWS Negative Normal Negative [facility] Comment on above: Order Comment: Zeyad jaswinder Type: BLOOD SPECIMENOrdering Facility: [facility] Address: [address] [place] [address] Result Comment: ADDITIONAL INFORMATION This test was developed and its performance characteristics determined by [facility] in a manner consistent with CLIA requirements. This test has not been cleared or approved by the U.S. Food and Drug Administration. Performed By: #### Codi ROATHY ####[facility] [id number] [place] [address] DPPX AB CBA, S Negative Normal Negative [facility] Comment on above: Order Comment: Zeyad [facility] Type: BLOOD SPECIMENOrdering Facility: [facility] Address: [address] [place] [address] Result Comment: ADDITIONAL INFORMATION This test was developed and its performance characteristics determined by [facility] in a manner consistent with CLIA requirements. This test has not been cleared or approved by the U.S. Food and Drug Administration. Performed By: #### Codi LPTHY ####[facility] [id number] [place] [address] NELSON-B-R AB CBA, S Negative Normal Negative [facility] Comment on above: Order Comment: Zeyad [facility] Type: BLOOD SPECIMENOrdering Facility: [facility] Address: [address] [place] [address] Result Comment: ADDITIONAL INFORMATION This test was developed and its performance characteristics determined by [facility] in a manner consistent with CLIA requirements. This test has not been cleared or approved by the U.S. Food and Drug Administration. Performed By: #### Codi RAOTHY ####[facility] [id number] [place] [address] GAD65 ANTIBODY 0.00 nmol/L Normal <= 0.02 [facility] Comment on above: Order Comment: Zeyad san Type: BLOOD SPECIMENOrdering Facility: [facility] Address: [address] [place] [address] Result Comment: ADDITIONAL INFORMATION This test was developed and its performance characteristics determined by [facility] in a manner consistent with CLIA requirements. This test has not been cleared or approved by the U.S. Food and Drug Administration. Performed By: #### Codi ROATHY ####[facility] [id number] [place] [address] GFAP IFA, S Negative Normal Negative [facility] Comment on above: Order Comment: Zeyad [facility] Type: BLOOD SPECIMENOrdering Facility: [facility] Address: [address] [place] [address] Result Comment: ADDITIONAL INFORMATION This test was developed and its performance characteristics determined by [facility] in a manner consistent with CLIA requirements. This test has not been cleared or approved by the U.S. Food and Drug Administration. Performed By: #### Codi ROATHY ####[facility]CL[facility] [id number] [place] [address] IFA NOTES (MLPTHY) None. Normal [facility] Comment on above: Order Comment: Zeyad [facility] Type: BLOOD SPECIMENOrdering Facility: [facility] Address: [address] [place] [address] Performed By: #### Codi ROATHY ####[facility] LABCLIA [id number] [place] [address] MGLUR1 AB IFA, S Negative Normal Negative [facility] Comment on above: Order Comment: Zeyad jaswinder Type: BLOOD SPECIMENOrdering Facility: [facility] Address: [address] [place] [address] Result Comment: ADDITIONAL INFORMATION This test was developed and its performance characteristics determined by [facility] in a manner consistent with CLIA requirements. This test has not been cleared or approved by the U.S. Food and Drug Administration. Performed By: #### Codi ROATHY ####[facility] LAB[facility]IA [id number] [place] [address] MYELIN OLIGODENDROCYTE GLYCOPROTEIN (MOG-IGG1) FLUORESCENCE-ACTIVATED CELL Negative Normal Negative [facility] Comment on above: Order Comment: Ferminchantel [facility] Type: BLOOD SPECIMENOrdering Facility: [facility] Address: [address] [place] [address] Result Comment: ADDITIONAL INFORMATION This test was developed and its performance characteristics determined by [facility] in a manner consistent with CLIA requirements. This test has not been cleared or approved by the U.S. Food and Drug Administration. Performed By: #### Codi ROATHY ####[facility] LABCLIA [id number] [place] [address] NEUROCHONDRIN IFA , S Negative Normal Negative [facility] Comment on above: Order Comment: Zeyad [facility] Type: BLOOD SPECIMENOrdering Facility: [facility] Address: [address] [place] [address] Result Comment: ADDITIONAL INFORMATION This test was developed and its performance characteristics determined by [facility] in a manner consistent with CLIA requirements. This test has not been cleared or approved by the U.S. Food and Drug Administration. Performed By: #### M LPTHY ####[facility] LABCLIA [id number] [place] [address] NIF IFA, S Negative Normal Negative [facility] Comment on above: Order Comment: Zeyad san Type: BLOOD SPECIMENOrdering Facility: [facility] Address: [address] [place] [address] Result Comment: ADDITIONAL INFORMATION This test was developed and its performance characteristics determined by [facility] in a manner consistent with CLIA requirements. This test has not been cleared or approved by the U.S. Food and Drug Administration. Performed By: #### Codi LEGGETT ####[facility] LABCLIA [id number] [place] [address] NMO/AQPF FACS, S Negative Normal Negative [facility] Comment on above: Order Comment: Zeyad san Type: BLOOD SPECIMENOrdering Facility: [facility] Address: [address] [place] [address] Result Comment: ADDITIONAL INFORMATION This test was developed and its performance characteristics determined by [facility] in a manner consistent with CLIA requirements. This test has not been cleared or approved by the U.S. Food and Drug Administration. Performed By: #### Codi LEGGETT ####[facility] LABCLIA [id number] [place] [address] PURKINJE CELL CYTO AB, TYPE 1 Negative Normal Negative [facility] Comment on above: Order Comment: Zeyad san Type: BLOOD SPECIMENOrdering Facility: [facility] Address: [address] [place] [address] Result Comment: ADDITIONAL INFORMATION This test was developed and its performance characteristics determined by [facility] in a manner consistent with CLIA requirements. This test has not been cleared or approved by the U.S. Food and Drug Administration. Performed By: #### Codi ROATHY ####[facility] LABCLIA [id number] [place] [address] PURKINJE CELL CYTO AB, TYPE 2 Negative Normal Negative [facility] Comment on above: Order Comment: Zeyad san Type: BLOOD SPECIMENOrdering Facility: [facility] Address: [address] [place] [address] Result Comment: ADDITIONAL INFORMATION This test was developed and its performance characteristics determined by [facility] in a manner consistent with CLIA requirements. This test has not been cleared or approved by the U.S. Food and Drug Administration. Performed By: #### Codi ROATHY ####[facility] LABCLIA [id number] [place] [address] SEPTIN-7 IFA, S Negative Normal Negative [facility] Comment on above: Order Comment: Zeyad [facility] Type: BLOOD SPECIMENOrdering Facility: [facility] Address: [address] [place] [address] Result Comment: ADDITIONAL INFORMATION This test was developed and its performance characteristics determined by [facility] in a manner consistent with CLIA requirements. This test has not been cleared or approved by the U.S. Food and Drug Administration. Performed By: #### Codi ROATHY ####[facility] LABCLIA [id number] [place] [address] TRIM46 AB IFA, S Negative Normal Negative [facility] Comment on above: Order Comment: Zeyad [facility] Type: BLOOD SPECIMENOrdering Facility: [facility] Address: [address] [place] [address] Result Comment: ADDITIONAL INFORMATION This test was developed and its performance characteristics determined by [facility] in a manner consistent with CLIA requirements. This test has not been cleared or approved by the U.S. Food and Drug Administration. Test Performed by: [address] [address] Acquisition Advisor: Lilli Fernandez Ph.D.; CLIA# [id number] Performed By: #### M LPTHY ####[facility] LABCLIA [id number] [place] [id number] THERAPY NTon 06-10-2024 THERAPY NT HNO ID: [id number] Author: PETR DASILVA RRT Service: Respiratory Therapy [...] 2024 TIME: 4:52 PM PAGER/CONTACT #: Eusebio Weems [facility] ALLIED HEALTHon 06-09-2024 ALLIED HEALTH HNO ID: [id number] Author: ROXANA OLIVO Tech Service: Radiology Author Type: Physical Meteorologist Type: Allied Health Filed: 06/09/2024 10:04 Note [...] PATIENT PRESENTS WITH AN IMPLANTABLE OR ATTACHED BEATER ENGINEER: No ALLERGIES: Reviewed and unchanged CONTRAST ALLERGY: [...] June 09, 2024 TIME: 10:03 AM Normal [facility] CBC W Auto Differential pane l (Bld)on 06-09-2024 Basophils (Bld) [#/Vol] 0.10 10*3/uL Normal <0.11 [facility] Comment on above: Order Comment: Zeyad san Type: BLOOD SPECIMENOrdering Facility: [facility] Address: [address] [place] [address] Performed By: #### 5 7021-8 ####[facility] LABORATORYCLIA [id number] [place] [address] [place] Basophils/100 WBC (Bld) 1.4 % Normal A [facility] Comment on above: Order Comment: Zeyad san Type: BLOOD SPECIMENOrdering Facility: [facility] Address: [address] [place] [address] Performed By: #### 5 7021-8 ####[facility] LABORATORYCLIA [id number] [address] Differential cell count method Nom (Bld) Auto Normal [facility] Comment on above: Order Comment: Speci men Type: BLOOD SPECIMENOrdering Facility: [facility] Address: [address] [place] [address] Performed By: #### 5 7021-8 ####[facility] LABORATORYCLIA [id number] [address] [place] Eosinophils (Bld) [#/Vol] 0.34 10*3/uL Normal <0.46 [facility] Comment on above: Order Comment: Speci men Type: BLOOD SPECIMENOrdering Facility: [facility] Address: [address] [place] [address] Performed By: #### 5 7021-8 ####[facility] LABORATORYCLIA [id number] [address] Eosinophils/100 WBC (Bld) 4.8 % Normal [facility] Comment on above: Order Comment: Speci men Type: BLOOD SPECIMENOrdering Facility: [facility] Address: [address] [place] [address] Performed By: #### 5 7021-8 ####[facility] LABORATORYCLIA [id number] [address] [place] Erythrocyte distribution width (RBC) [Ratio] 14.1 % Normal 11.5-15.0 [facility] Comment on above: Order Comment: Speci men Type: BLOOD SPECIMENOrdering Facility: [facility] Address: [address] [place] [address] Performed By: #### 5 7021-8 ####[facility] LABORATORYCLIA [id number] [address] Hematocrit (Bld) [Volume fraction] 42.7 % Normal 39.0-51.0 [facility] Comment on above: Order Comment: Speci men Type: BLOOD SPECIMENOrdering Facility: [facility] Address: [address] [place] [address] Performed By: #### 5 7021-8 ####[facility] LABORATORYCLIA [id number] [address] [place] Hemoglobin (Bld) [Mass/Vol] 15.0 g/dL Normal 13.0-17.0 [facility] Comment on above: Order Comment: Speci men Type: BLOOD SPECIMENOrdering Facility: [facility] Address: [address] [place] [address] Performed By: #### 5 7021-8 ####[facility]ORATORYCLIA [id number] [address] [place] Immature granulocytes (Bld) [#/Vol] 0.03 10*3/uL Normal <0.10 [facility] Comment on above: Order Comment: Speci men Type: BLOOD SPECIMENOrdering Facility: [facility] Address: [address] [place] [address] Performed By: #### 5 7021-8 ####[facility] LABORATORYCLIA [id number] [address] [place] Immature granulocytes/100 WBC (Bld) 0.4 % Normal [facility] Comment on above: Order Comment: Speci men Type: BLOOD SPECIMENOrdering Facility: [facility] Address: [address] [place] [address] Performed By: #### 5 7021-8 ####[facility]ORATORYCLIA [id number] [place] [address] [place] Lymphocytes (Bld) [#/Vol] 2.55 10*3/uL Normal 1.00-4.0 0 [facility] Comment on above: Order Comment: Speci men Type: BLOOD SPECIMENOrdering Facility: [facility] Address: [address] [place] [address] Performed By: #### 5 7021-8 ####[facility] LABORATORYCLIA [id number] [address] [place] Lymphocytes/100 WBC (Bld) 36.2 % Normal [facility] Comment on above: Order Comment: Speci men Type: BLOOD SPECIMENOrdering Facility: [facility] Address: [address] [place] [address] Performed By: #### 5 7021-8 ####[facility] LABORATORYCLIA [id number] [address] MCH (RBC) [Entitic mass] 28.3 pg Normal 26.0-34.0 [facility] Comment on above: Order Comment: Speci men Type: BLOOD SPECIMENOrdering Facility: [facility] Address: [address] [place] [address] Performed By: #### 5 7021-8 ####[facility] LABORATORYCLIA [id number] [address] MCHC (RBC) [Mass/Vol] 35.1 g/dL Normal 30.5-36.0 [facility] Comment on above: Order Comment: Speci men Type: BLOOD SPECIMENOrdering Facility: [facility] Address: [address] [place] [address] Performed By: #### 5 7021-8 ####[facility] LABORATORYCLIA [id number] [address] MCV (RBC) [Entitic vol] 80.6 fL Normal 80.0-100.[address] [facility] Comment on above: Order Comment: Speci men Type: BLOOD SPECIMENOrdering Facility: [facility] Address: [address] [place] [address] Performed By: #### 5 7021-8 ####[facility] LABORATORYCLIA [id number] [address] Monocytes (Bld) [#/Vol] 0.52 10*3/uL Normal <0.87 [facility] Comment on above: Order Comment: Speci men Type: BLOOD SPECIMENOrdering Facility: [facility] Address: [address] [place] [address] Performed By: #### 5 7021-8 ####[facility]ORATORYCLIA [id number] [place] [address] [place] Monocytes/100 WBC (Bld) 7.4 % Normal A [facility] Comment on above: Order Comment: Speci men Type: BLOOD SPECIMENOrdering Facility: [facility] Address: [address] [place] [address] Performed By: #### 5 7021-8 ####[facility]ORATORYCLIA [id number] [place] [address] [place] Neutrophils (Bld) [#/Vol] 3.51 10*3/uL Normal 1.45-7.5 0 [facility] Comment on above: Order Comment: Speci men Type: BLOOD SPECIMENOrdering Facility: [facility] Address: [address] [place] [address] Performed By: #### 5 7021-8 ####[facility] LABORATORYCLIA [id number] [address] [place] Neutrophils/100 WBC (Bld) 49.8 % Normal [facility] Comment on above: Order Comment: Speci men Type: BLOOD SPECIMENOrdering Facility: [facility] Address: [address] [place] [address] Performed By: #### 5 7021-8 ####[facility] LABORATORYCLIA [id number] [place] [address] [place] Nucleated RBC (Bld) [#/Vol] 10*3/uL Normal <0.01 [facility] Comment on above: Order Comment: Speci men Type: BLOOD SPECIMENOrdering Facility: [facility] Address: [address] [place] [address] Performed By: #### 5 7021-8 ####[facility] LABORATORYCLIA [id number] [address] [place] Nucleated RBC/100 WBC (Bld) [Ratio] 0.0 /100 WBC Normal [facility] Comment on above: Order Comment: Speci men Type: BLOOD SPECIMENOrdering Facility: [facility] Address: [address] [place] [address] Performed By: #### 5 7021-8 ####[facility] LABORATORYCLIA [id number] [address] [place] Platelet mean volume (Bld) [Entitic vol] 9.6 fL Normal 9.0-12.7 [facility] Comment on above: Order Comment: Speci men Type: BLOOD SPECIMENOrdering Facility: [facility] Address: [address] [place] [address] Performed By: #### 5 7021-8 ####[facility] LABORATORYCLIA [id number] [place] [address] [place] Platelets (Bld) [#/Vol] 241 10*3/uL Normal 150-400 [facility] Comment on above: Order Comment: Speci men Type: BLOOD SPECIMENOrdering Facility: [facility] Address: [address] [place] [address] Performed By: #### 5 7021-8 ####[facility] LABORATORYCLIA [id number] [address] [place] RBC (Bld) [#/Vol] 5.30 10*6/uL Normal 4.20-6.00 [facility] Comment on above: Order Comment: Speci men Type: BLOOD SPECIMENOrdering Facility: [facility] Address: [address] [place] [address] Performed By: #### 5 7021-8 ####[facility] LABORATORYCLIA [id number] [address] [place] WBC (Bld) [#/Vol] 7.05 10*3/uL Normal 3.70-11.00 [facility] Comment on above: Order Comment: Speci men Type: BLOOD SPECIMENOrdering Facility: [facility] Address: [address] [place] [address] Performed By: #### 5 7021-8 ####[facility] LABORATORYCLIA [id number] [address] [place] CONSULTon 06-09-2024 CONSULT HNO ID: [id number] Author: JOSE TUCKER MD Service: Neurology General [...] worsening symptoms he presented to [facility] and was admitted last week. He underwent a brain MRI that per patient was reported as normal. He is not sure if he got IV contrast or not. He was discharged home and follow-up with his planner intern and ENT. Cardiology did a full assessment. [...] confrontation, No (more content not included)... Normal [facility] CT BRAIN WO IVCONon 06-10-[address] BRAIN WO IVCON * * *Final Report* * * DATE OF EXAM: Jun 09 2024 10:10AM [facility] 0504 - CT BRAIN WO IVCON [...] IMPRESSION: No evidence of acute intracranial process Overlock Operator: PSCB Transcribe Date/Time: Jun 09 2024 10:11A Dictated by : LINDA GARCIA MD This examination was interpreted and the report reviewed and electronically signed by: LINDA GARCIA MD on Jun 09 2024 10:15AM EST [id number] N Normal [facility] CTA HEAD W IVCONon 5 CTA HEAD W IVCON * * *Final Report* * * DATE OF EXAM: Jun 09 2024 10:10AM [facility] 0022 - CTA HEAD W IVCON [...] are patent. The basilar artery is patent. director of logistics are patent. SCAs are patent. No significant stenosis. No aneurysm. The major dural sinuses and draining veins are patent. No intracranial venous thrombosis Pullman Conductor (topogram) images: No additional findings. IMPRESSION: Bilateral proximal cervical ICA stenosis 10% on the right and 40% on the left. No other significant stenosis. No major vessel occlusion. Overlock Operator: PSCB Transcribe Date/Time: Jun 09 2024 10:15A Dictated by : CARIN FIGUEROA MD This examination was interpreted and the report reviewed and electronically signed by: CARIN FIGUEROA MD on Jun 09 2024 10:24AM EST [id number] N Normal [facility] CTA NECK W IVCONon CTA NECK W IVCON * * *Final Report* * * DATE OF EXAM: Jun 09 2024 10:10AM [facility] 0024 - CTA NECK W IVCON [...] are patent. The basilar artery is patent. director of logistics are patent. SCAs are patent. No significant stenosis. No aneurysm. The major dural sinuses and draining veins are patent. No intracranial venous thrombosis Pullman Conductor (topogram) images: No additional findings. IMPRESSION: Bilateral proximal cervical ICA stenosis 10% on the right and 40% on the left. No other significant stenosis. No major vessel occlusion. Overlock Operator: PSCB Transcribe Date/Time: Jun 09 2024 10:15A Dictated by : CARIN FIGUEROA MD This examination was interpreted and the report reviewed and electronically signed by: CARIN FIGUEROA MD on Jun 09 2024 10:24AM EST [id number] N Normal [facility] Comprehensive metabolic 2000 panelon 06-09-2024 Albumin [Mass/Vol] 4.0 g/dL Normal 3.9-4.9 [facility] Comment on above: Order Comment: Fermini jaswinder Type: BLOOD SPECIMENOrdering Facility: [facility] Address: [address] [place] [address] Performed By: #### 2 4323-8, ####[facility] LABORATORYCLIA [id number] [place] [address] [place] ALP [Catalytic activity/Vol] 80 U/L Normal 38-113 [facility] Comment on above: Order Comment: Speci men Type: BLOOD SPECIMENOrdering Facility: [facility] Address: [address] [place] [address] Performed By: #### 2 4323-8, ####[facility] LABORATORYCLIA [id number] [place] [address] [place] ALT With P-5'-P [Catalytic activity/Vol] 27 U/L Normal 10-54 [facility] Comment on above: Order Comment: Speci men Type: BLOOD SPECIMENOrdering Facility: [facility] Address: [address] [place] [address] Performed By: #### 2 4323-8, ####[facility] LABORATORYCLIA [id number] [place] [address] [place] Anion gap [Moles/Vol] 11 mmol/L Normal 8-15 [facility] Comment on above: Order Comment: Speci men Type: BLOOD SPECIMENOrdering Facility: [facility] Address: [address] [place] [address] Performed By: #### 2 432-8, ####[facility] LABORATORYCLIA [id number] [place] [address] [place] AST With P-5'-P [Catalytic activity/Vol] 19 U/L Normal 14-40 [facility] Comment on above: Order Comment: Speci men Type: BLOOD SPECIMENOrdering Facility: [facility] Address: [address] [place] [address] Performed By: #### 2 8, ####[facility] LABORATORYCLIA [id number] [place] [address] [place] Bilirubin [Mass/Vol] 0.2 mg/dL Normal 0.2-1.3 [facility] Comment on above: Order Comment: Speci men Type: BLOOD SPECIMENOrdering Facility: [facility] Address: [address] [place] [address] Performed By: #### 2 4328, ####[facility] LABORATORYCLIA [id number] [place] [address] [place] Calcium [Mass/Vol] 9.8 mg/dL Normal 8.5-10.2 [facility] Comment on above: Order Comment: Speci men Type: BLOOD SPECIMENOrdering Facility: [facility] Address: [address] [place] [address] Performed By: #### 2 432-8, ####[facility] LABORATORYCLIA [id number] [place] [address] [place] Chloride [Moles/Vol] 103 mmol/L Normal 98-107 [facility] Comment on above: Order Comment: Speci men Type: BLOOD SPECIMENOrdering Facility: [facility] Address: [address] [place] [address] Performed By: #### 2 4323-8, ####[facility] LABORATORYCLIA [id number] [address] [place] CO2 [Moles/Vol] 25 mmol/L Normal 22-30 [facility] Comment on above: Order Comment: Speci men Type: BLOOD SPECIMENOrdering Facility: [facility] Address: [address] [place] [address] Performed By: #### 2 43238, ####[facility] H[facility]PITALIA [id number] [address] Creatinine [Mass/Vol] 1.14 mg/dL Normal 0.73-1.22 [facility] Comment on above: Order Comment: Speci men Type: BLOOD SPECIMENOrdering Facility: [facility] Address: [address] [place] [address] Performed By: #### 2 4323-8, ####[facility]ITALCLIA [id number] [address] Creatinine and Glomerular filtration rate.predicted panel (S/P/Bld) 75 mL/min/1.73m??? Normal >=60 [facility] Comment on above: Order Comment: Speci men Type: BLOOD SPECIMENOrdering Facility: [facility] Address: [address] [place] [address] Result Comment: Cherelle mated Glomerular Filtration Rate [...] actual GFR. Performed By: #### 2 4323-8, ####[facility] LABORATORYCLIA [id number] [place] [address] [place] Glucose [Mass/Vol] 108 mg/dL High 74-99 [facility] Comment on above: Order Comment: Zeyad men Type: BLOOD SPECIMENOrdering Facility: [facility] Address: [address] [place] [address] Result Comment: The [place] [employer] (ADA) provides guidance for cutoff [...] Standards of Medical Care in Diabetes 2016, [place] [employer]. Diabetes Care. 2016.39(Suppl 1). Performed By: #### 2 4323-8, ####[facility] LABORATORYCLIA [id number] [place] [address] [place] Potassium [Moles/Vol] 4.1 mmol/L Normal 3.7-5.1 [facility] Comment on above: Order Comment: Zeyad san Type: BLOOD SPECIMENOrdering Facility: [facility] Address: [address] [place] [address] Performed By: #### 2 4323-8, ####[facility] LABORATORYCLIA [id number] [place] [address] [place] Protein [Mass/Vol] 7.2 g/dL Normal 6.3-8.0 [facility] Comment on above: Order Comment: Zeyad jaswinder Type: BLOOD SPECIMENOrdering Facility: [facility] Address: [address] [place] [address] Performed By: #### 2 4323-8, ####[facility] LABORATORYCLIA [id number] [place] [id number] [place] Sodium [Moles/Vol] 139 mmol/L Normal 136-144 [facility] Comment on above: Order Comment: Speci men Type: BLOOD SPECIMENOrdering Facility: [facility] Address: [address] [place], [place] [id number] Performed By: #### 2 4323-8, ####[facility] LABORATORYCLIA [id number] [place] [address] [facility] Urea nitrogen [Mass/Vol] 14 mg/dL Normal 9-24 [facility] Comment on above: Order Comment: Speci men Type: BLOOD SPECIMENOrdering Facility: [facility] Address: [address] [place], [place] [address] Performed By: #### 2 4323-8, ####[facility] LABORATORYCLIA [id number] [place] [address] [facility] ED NOTEon 06-09-2024 ED NOTE HNO ID: [id number] Author: JAROCHO BAKER RN Service: Emergency Medicine Author Type: Registered Nurse Type: ED Notes Filed: 06/09/2024 16:54 Note Text: Verified that EVS is present and starting to clean 2104-02. 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 [facility] ED NOTE HNO ID: [id number] Author: LISA ROBLEDO RN Service: Emergency Medicine Author Type: Registered Nurse Type: ED Notes Filed: 06/09/2024 09:18 Note Text: XR notified Normal [facility] ED PROV NOTEon 06-09-2024 ED PROV NOTE HNO ID: [id number] Author: EDIE GRIMALDO MD Service: Emergency Medicine [...] he was seen and evaluated over at [facility] last week with no clear cause [...] 92.1 kg (203 lb) 1.854 m (6' 1") Physical Exam HENT: Head: Normocephalic and atraumatic. [...] within norm (more content not included)... Normal [facility] ED PROV NOTE HNO ID: [id number] Author: EDIE GRIMALDO MD Service: Emergency Medicine [...] the patient's care with the resident. Signature: Eide Grimaldo MD Date: 06/09/2024 Time: 4:31 PM EDIE GRIMALDO IVKOVICH 06/09/24 1631 Normal [facility] EKGon 06-09-2024 Electrocardiogram Ventricular Rate : 7 7 BPM Atrial Rate : 77 BPM P-R Interval : 196 ms QRS Duration : 86 ms Q-T Interval : 368 ms QTC Calculation(Bazett) : 416 ms Calculated P [place] : 6 degrees Calculated R [place] : 69 degrees Calculated T [place] : 22 degrees NORMAL SINUS RHYTHM NORMAL ECG WHEN COMPARED WITH ECG OF 26-Oct-2020 06:06, ST NO LONGER ELEVATED IN ANTEROLATERAL LEADS Confirmed by EDIE GRIMALDO MD ([id number]) on 06/09/2024 4:31:22 PM NAME : HAYDEN PENDLETON PID : [id number] : 1965 Gender : Male Race : ORD : Procedure Date : Jun 09 2024 08:45:59 Edit Date : Jun 09 2024 16:31:24 Diagnosis: NORMAL SINUS RHYTHM NORMAL ECG WHEN COMPARED WITH ECG OF 26-Oct-2020 06:06, ST NO LONGER ELEVATED IN ANTEROLATERAL LEADS Confirmed by EDIE GRIMALDO MD ([id number]) on 06/09/2024 4:31:22 PM Test Reason : Location : : [facility] Overread By : EDIE GRIMALDO MD Edited By : EDIE GRIMALDO MD Referred By : , Acquired by : HENRI ONEIL Normal [facility] HIGH SENSITIVITY TROPONIN T (INITIAL)on 06-09-2024 Troponin T.cardiac High sensitivity method [Mass/Vol] <6 Normal <12 [facility] Comment on above: Order Comment: Speci men Type: BLOOD SPECIMENOrdering Facility: [facility] Address: [address] [place] [address] Performed By: #### L [id number] ####[facility] LABORATORYCLIA [id number] [place] [address] [place] [facility] HIGH SENSITIVITY TROPONIN T (SECOND)on 06-09-2024 Troponin T.cardiac High sensitivity method [Mass/Vol] 6 ng/L Normal <12 [facility] Comment on above: Order Comment: Speci men Type: BLOOD SPECIMENOrdering Facility: [facility] Address: [address] [place] [address] Performed By: #### L [id number] ####[facility] LABORATORYIA [id number] [place] [address] [place] HISTORY PHYSICALon HISTORY PHYSICAL HNO ID: [id number] Author: BARB IVERSON MD Service: Hospital Medicine [...] ago, he was admitted to [facility] due to worsening symptoms. Reportedly, during his [...] (Src) 97.7 (Oral) Resp 22 Ht 6' 1" (1.85m) Wt 203 lb (92.1kg) SpO2 98% [...] tests revie (more content not included)... Normal [facility] MYELOPATHY, AUTOIMMUNE/PARAN EOPLASTIC EVALUATION, SERUMon 06-09-2024 AMPHIPHYSIN AB Negative Normal Negative [facility] Comment on above: Order Comment: Zeyad san Type: BLOOD SPECIMENOrdering Facility: [facility] Address: [address] [place] [address] Result Comment: ADDITIONAL INFORMATION This test was developed and its performance characteristics determined by [facility] in a manner consistent with CLIA requirements. This test has not been cleared or approved by the U.S. Food and Drug Administration. Performed By: #### M LPTHY ####[facility] LAB[facility] [id number] [place] [address] ANTI-GLIAL NUCLEAR AB, TYPE 1 Negative Normal Negative [facility] Comment on above: Order Comment: Zeyad san Type: BLOOD SPECIMENOrdering Facility: [facility] Address: [address] [place] [address] Result Comment: ADDITIONAL INFORMATION This test was developed and its performance characteristics determined by [facility] in a manner consistent with CLIA requirements. This test has not been cleared or approved by the U.S. Food and Drug Administration. Performed By: #### Codi ROATHY ####[facility] [id number] [place] [address] ANTI-NEURONAL NUC AB, TYPE 1 Negative Normal Negative [facility] Comment on above: Order Comment: Zeyad san Type: BLOOD SPECIMENOrdering Facility: [facility] Address: [address] [place] [address] Result Comment: ADDITIONAL INFORMATION This test was developed and its performance characteristics determined by [facility] in a manner consistent with CLIA requirements. This test has not been cleared or approved by the U.S. Food and Drug Administration. Performed By: #### Codi ROATHY ####[facility] [id number] [place] [address] ANTI-NEURONAL NUC AB, TYPE 2 Negative Normal Negative [facility] Comment on above: Order Comment: Zeyad san Type: BLOOD SPECIMENOrdering Facility: [facility] Address: [address] [place] [address] Result Comment: ADDITIONAL INFORMATION This test was developed and its performance characteristics determined by [facility] in a manner consistent with CLIA requirements. This test has not been cleared or approved by the U.S. Food and Drug Administration. Performed By: #### Codi LPTHY ####[facility] [id number] [place] [address] ANTI-NEURONAL NUC AB, TYPE 3 Negative Normal Negative [facility] Comment on above: Order Comment: Zeyad san Type: BLOOD SPECIMENOrdering Facility: [facility] Address: [address] [place] [address] Result Comment: ADDITIONAL INFORMATION This test was developed and its performance characteristics determined by [facility] in a manner consistent with CLIA requirements. This test has not been cleared or approved by the U.S. Food and Drug Administration. Performed By: #### M LPTHY ####[facility] [id number] [place] [address] AP3B2 IFA, S Negative Normal Negative [facility] Comment on above: Order Comment: Zeyad san Type: BLOOD SPECIMENOrdering Facility: [facility] Address: [address] [place] [address] Result Comment: ADDITIONAL INFORMATION This test was developed and its performance characteristics determined by [facility] in a manner consistent with CLIA requirements. This test has not been cleared or approved by the U.S. Food and Drug Administration. Performed By: #### Codi LPTHY ####[facility] [id number] [place] [address] AUTOIMMUNE MYELOPATHY INTERP, S SEE NOTE Normal [facility] Comment on above: Order Comment: Zeyad san Type: BLOOD SPECIMENOrdering Facility: [facility] Address: [address] [place] [address] Result Comment: No i nformative autoantibodies were detected in this evaluation. However, a negative result does not exclude autoimmune myelopathy, idiopathic or paraneoplastic. Sensitivity and specificity of antibody testing are enhanced by testing both serum and CSF. Performed By: #### M LPTHY ####[facility] [id number] [place] [address] CRMP-5-IGG WESTERN BLOT, S ALSO USED BY TESTS: CRMWS Negative Normal Negative [facility] Comment on above: Order Comment: Zeyad san Type: BLOOD SPECIMENOrdering Facility: [facility] Address: [address] [place] [address] Result Comment: ADDITIONAL INFORMATION This test was developed and its performance characteristics determined by [facility] in a manner consistent with CLIA requirements. This test has not been cleared or approved by the U.S. Food and Drug Administration. Performed By: #### Codi ROATHY ####[facility] [id number] [place] [address] DPPX AB CBA, S Negative Normal Negative [facility] Comment on above: Order Comment: Zeyad san Type: BLOOD SPECIMENOrdering Facility: [facility] Address: [address] [place] [address] Result Comment: ADDITIONAL INFORMATION This test was developed and its performance characteristics determined by [facility] in a manner consistent with CLIA requirements. This test has not been cleared or approved by the U.S. Food and Drug Administration. Performed By: #### Codi ROATHY ####[facility] [id number] [place] [address] NELSON-B-R AB CBA, S Negative Normal Negative [facility] Comment on above: Order Comment: Zeyad san Type: BLOOD SPECIMENOrdering Facility: [facility] Address: [address] [place] [address] Result Comment: ADDITIONAL INFORMATION This test was developed and its performance characteristics determined by [facility] in a manner consistent with CLIA requirements. This test has not been cleared or approved by the U.S. Food and Drug Administration. Performed By: #### Codi ROATHY ####[facility] [id number] [place] [address] GAD65 ANTIBODY 0.00 nmol/L Normal <= 0.02 [facility] Comment on above: Order Comment: Zeyad [facility] Type: BLOOD SPECIMENOrdering Facility: [facility] Address: [address] [place] [address] Result Comment: ADDITIONAL INFORMATION This test was developed and its performance characteristics determined by [facility] in a manner consistent with CLIA requirements. This test has not been cleared or approved by the U.S. Food and Drug Administration. Performed By: #### Codi ROATHY ####[facility] [id number] [place] [address] GFAP IFA, S Negative Normal Negative [facility] Comment on above: Order Comment: Zeyad san Type: BLOOD SPECIMENOrdering Facility: [facility] Address: [address] [place] [address] Result Comment: ADDITIONAL INFORMATION This test was developed and its performance characteristics determined by [facility] in a manner consistent with CLIA requirements. This test has not been cleared or approved by the U.S. Food and Drug Administration. Performed By: #### Codi ROATHY ####[facility] [id number] [place] [address] IFA NOTES (MLPTHY) None. Normal [facility] Comment on above: Order Comment: Zeyad san Type: BLOOD SPECIMENOrdering Facility: [facility] Address: [address] [place] [address] Performed By: #### Codi ROATHY ####[facility] [id number] [place] [address] MGLUR1 AB IFA, S Negative Normal Negative [facility] Comment on above: Order Comment: Zeyad san Type: BLOOD SPECIMENOrdering Facility: [facility] Address: [address] [place] [address] Result Comment: ADDITIONAL INFORMATION This test was developed and its performance characteristics determined by [facility] in a manner consistent with CLIA requirements. This test has not been cleared or approved by the .S. Food and Drug Administration. Performed By: #### Codi ROATHY ####[facility] [id number] [place] [address] MYELIN OLIGODENDROCYTE GLYCOPROTEIN (MOG-IGG1) FLUORESCENCE-ACTIVATED CELL Negative Normal Negative [facility] Comment on above: Order Comment: Zeyad san Type: BLOOD SPECIMENOrdering Facility: [facility] Address: [address] [place] [address] Result Comment: ADDITIONAL INFORMATION This test was developed and its performance characteristics determined by [facility] in a manner consistent with CLIA requirements. This test has not been cleared or approved by the U.S. Food and Drug Administration. Performed By: #### Codi ROATHY ####[facility] [id number] [place] [address] NEUROCHONDRIN IFA , S Negative Normal Negative [facility] Comment on above: Order Comment: Zeyad san Type: BLOOD SPECIMENOrdering Facility: [facility] Address: [address] [place] [address] Result Comment: ADDITIONAL INFORMATION This test was developed and its performance characteristics determined by [facility] in a manner consistent with CLIA requirements. This test has not been cleared or approved by the U.S. Food and Drug Administration. Performed By: #### Codi ROATHY ####[facility] [id number] [place] [address] NIF IFA, S Negative Normal Negative [facility] Comment on above: Order Comment: Zeyad san Type: BLOOD SPECIMENOrdering Facility: [facility] Address: [address] [place] [address] Result Comment: ADDITIONAL INFORMATION This test was developed and its performance characteristics determined by [facility] in a manner consistent with CLIA requirements. This test has not been cleared or approved by the U.S. Food and Drug Administration. Performed By: #### Codi ROATHY ####[facility] [id number] [place] [address] NMO/AQPF FACS, S Negative Normal Negative [facility] Comment on above: Order Comment: Zeyad san Type: BLOOD SPECIMENOrdering Facility: [facility] Address: [address] [place] [address] Result Comment: ADDITIONAL INFORMATION This test was developed and its performance characteristics determined by [facility] in a manner consistent with CLIA requirements. This test has not been cleared or approved by the U.S. Food and Drug Administration. Performed By: #### Codi LEGGETT ####[facility] [id number] [place] [id number] PURKINJE CELL CYTO AB, TYPE 1 Negative Normal Negative [facility] Comment on above: Order Comment: Zeyad san Type: BLOOD SPECIMENOrdering Facility: [facility] Address: [address] [place] [address] Result Comment: ADDITIONAL INFORMATION This test was developed and its performance characteristics determined by [facility] in a manner consistent with CLIA requirements. This test has not been cleared or approved by the U.S. Food and Drug Administration. Performed By: #### Codi ROATHY ####[facility] [id number] [place] [address] PURKINJE CELL CYTO AB, TYPE 2 Negative Normal Negative [facility] Comment on above: Order Comment: Zeyad san Type: BLOOD SPECIMENOrdering Facility: [facility] Address: [address] [place] [address] Result Comment: ADDITIONAL INFORMATION This test was developed and its performance characteristics determined by [facility] in a manner consistent with CLIA requirements. This test has not been cleared or approved by the U.S. Food and Drug Administration. Performed By: #### Codi LEGGETT ####[facility] [id number] [place] [address] SEPTIN-7 IFA, S Negative Normal Negative [facility] Comment on above: Order Comment: Zeyad san Type: BLOOD SPECIMENOrdering Facility: [facility] Address: [address] [place] [address] Result Comment: ADDITIONAL INFORMATION This test was developed and its performance characteristics determined by [facility] in a manner consistent with CLIA requirements. This test has not been cleared or approved by the U.S. Food and Drug Administration. Performed By: ###Jose Alejandro LEGGETT ####[facility] [id number] [place] [address] TRIM46 AB IFA, S Negative Normal Negative [facility] Comment on above: Order Comment: Zeyad san Type: BLOOD SPECIMENOrdering Facility: [facility] Address: [address] [place] [address] Result Comment: ADDITIONAL INFORMATION This test was developed and its performance characteristics determined by [facility] in a manner consistent with CLIA requirements. This test has not been cleared or approved by the U.S. Food and Drug Administration. Test Performed by: [facility] [address] [place] [address] Acquisition Advisor: Lilli Fernandez Ph.D.; CLIA# [id number] Performed By: ###Jose Alejandro LEGGETT ####[facility] [id number] [place] [address] Magnesium [facility] 06-09 Magnesium [Mass/Vol] 2.1 mg/dL Normal 1.7-2.3 [facility] Comment on above: Order Comment: Zeyad jaswinder Type: BLOOD SPECIMENOrdering Facility: [facility] Address: [address] [place] [address] Performed By: #### 2 4323-8, 65334-0 ####[facility] LABORATORYCLIA [id number] [place] [address] [place] T4 Free SerPl-mCncon 025 Free T4 [Mass/Vol] 1.1 ng/dL Normal 0.9-1.7 [facility] Comment on above: Order Comment: Zeyad [facility] Type: BLOOD SPECIMENOrdering Facility: [facility] Address: [address] [place] [address] Performed By: #### 2 132-9, 3024-7 ####[facility]ITAL[facility]IA [id number] [place] [address] [place] VITAMIN B1 (THIAMINE), WHOLE BLOODon 06-09-2024 Thiamine (Bld) [Moles/Vol] 177.0 nmol/L Normal 84.3-213.3 [facility] Comment on above: Order Comment: [facility] Type: BLOOD SPECIMENOrdering Facility: [facility] Address: [address] [place] [address] Result Comment: This assay measures the concentration of thiamine diphosphate (TDP), the primary active form of vitamin B1. Approximately 90 percent of vitamin B1 present in whole blood is TDP. Thiamine and thiamine monophosphate, which comprise the remaining 10 percent, are not measured. This test was developed, and its performance characteristics determined by the [facility] Department of Pathology and Laboratory Medicine. It has not been cleared or approved by the FDA. The [facility] Department of Pathology and Laboratory Medicine is regulated under CLIA as qualified to perform high-complexity testing. This test is used for clinical purposes. It should not be regarded as investigational or for research. Performed By: #### B 1WB ####[facility] LABCL[facility] [id number] [place] [id number] [place] Vit B12 SerPl-mCncon 025 Cobalamin (Vitamin B12) [Mass/Vol] 515 pg/mL Normal 232-1245 [facility] Comment on above: Order Comment: Speci men Type: BLOOD SPECIMENOrdering Facility: [facility] Address: [place] [address] Performed By: #### 2 132-9, 3024-7 ####[facility] LABORATORYCLIA [id number] [place] [address] [place] [facility] XR CHEST 2V FRONTAL/LATon XR CHEST 2V [...] tissues: Unremarkable. IMPRESSION: No acute radiographic abnormality. Overlock Operator: JACKI Transcribe Date/Time: Jun 09 2024 9:30A Dictated by : LINDA GARCIA MD This examination was interpreted and the report reviewed and electronically signed by: LINDA GARCIA MD on Jun 09 2024 9:34AM EST [id number] Normal [facility] CNOVon 06-06-2024 CNOV Office Visit (CARDAGHWW) HAYDEN PENDLETON ([id number]) 1965 M Date Time Provider Department 06/06/24 3:00 PM FELICITAS CHAVEZ CARDAGHWW During your visit today, we recorded the [...] he had an exercise stress echo at [facility] and was referred here to see a planner intern after that. I do not have any records from his PCPs office. 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 He underwent four-vessel CABG on 10/25/[address] Alonso. Postop course was uneventful. He has been enrolled in cardiac rehab at [facility]. I received notification from them that [...] evaluation. He said he went to the [facility] ER on Wednesday. He said they did EKG and blood work and sent him home to follow-up with a planner intern. 10/15/2021: Patient was started on Imdur at [...] breath gets worse. He recently saw a cafe manager who did a lung cancer screening CAT scan. Additionally he also had PFTs done recently and is due to see the cafe manager in follow-up next week. 02/23/2023: Patient denies [...] describing it as a persistent feeling of "wooziness" rather than true spinning. The vertigo is [...] where CT (more content not included)... Normal [facility] ECG B/O W INTERP (MED OFFICE )on 06-06-2024 Interpretation and review of laboratory results Abnormal [facility] Sinus rhythm with frequent PVCs. [facility] Testosterone, Total / Freeon 05-27-2024 TESTOSTER,FREE 14.88 ng/dL Normal 5.00-21.00 [facility] Comment on above: Order Comment: N Performed By: #### L 503.0105, L501.9520, L501.9910, L501.9985, L400.0001, L100.0100, L500.4100, L500.4050, L3300.0960, L3100.5310 #### [facility] Laboratory [address] [place], [address] TESTOSTER,TOTAL 399 ng/dL Normal 264-916 [facility] Comment on above: Order Comment: N Result Comment: Adul t male reference interval is based on a population of healthy nonobese males (BMI <30) between 19 and 39 years old. Devan et.al. JCEM 2017,102;2879-3512. PMID: [id number]. Performed By: #### L 503.0105, L501.9520, L501.9910, L501.9985, L400.0001, L100.0100, L500.4100, L500.4050, L3300.0960, L3100.5310 #### [facility] Laboratory [address] [place], [address] TESTOSTERONE,%F 3.73 Normal 1.50-4.20 [facility] Comment on above: Order Comment: N Result Comment: Perf ormed at: [address] [id number] Acquisition Advisor: Loy Lopez PhD, Phone: [phone] Performed at: [facility] Lab[address] [id number] Acquisition Advisor: Sylvia Chapman MD, Phone: [phone] Performed By: #### L 503.0105, L501.9520, L501.9910, L501.9985, L400.0001, L100.0100, L500.4100, L500.4050, L3300.0960, L3100.5310 #### [facility] Laboratory [address] [place], [place], [id number] Absolute lymphocyte countOrd ered By: Joi Woodson on 05-26-2024 Lymphocytes Auto (Unsp spec) [#/Vol] 3.17 10*3/uL 0.83-4.51 [facility] Absolute neutrophil countOrd ered By: Joivanessa Woodson on 05-26-2024 Neutrophils (Bld) [#/Vol] 3.4 10*3/uL 2.0-7.7 [facility] Anion gap in Serum or Plasma Ordered By: Joi Woodson on 05-26-2024 Anion gap [Moles/Vol] 13 mmol/L 5- [facility] Automated lymphocyte count a s percentage of total leukocytesOrdered By: Joi Woodson on 05-26-2024 Lymphocytes/100 WBC Auto (Unsp spec) 42.0 % High 19- [facility] BUN/creatinine ratioOrdered By: Joi Woodson on 05-26-2024 Urea nitrogen/Creatinine [Mass ratio] 11.7 mg/mg - [facility] Basic Metabolic Profile (BMP )on 05-26-2024 BUN/CRE 11.7 RATIO Normal - [facility] Comment on above: Order Comment: Comme nts: NPO at [place] prior to lipid panel Performed By: #### L 503.0105, L501.9520, L501.9910, L501.9985, L400.0001, L100.0100, L500.4100, L500.4050, L3300.0960, L3100.5310 #### [facility] Laboratory [address] [place], [place], [id number] Calcium [Mass/Vol] 10.0 mg/dL Normal 7.6-11.0 [facility] Comment on above: Order Comment: Comme nts: NPO at [place] prior to lipid panel Performed By: #### L 503.0105, L501.9520, L501.9910, L501.9985, L400.0001, L100.0100, L500.4100, L500.4050, L3300.0960, L3100.5310 #### [facility] Laboratory [address] [place], [address] Chloride [Moles/Vol] 103 mmol/L Normal 98-108 [facility] Comment on above: Order Comment: Comme nts: NPO at [place] prior to lipid panel Performed By: #### L 503.0105, L501.9520, L501.9910, L501.9985, L400.0001, L100.0100, L500.4100, L500.4050, L3300.0960, L3100.5310 #### [facility] [address] [place], [address] CO2 [Moles/Vol] 24.1 mmol/L Normal 21.0-32.0 [facility] Comment on above: Order Comment: Comme nts: NPO at [place] prior to lipid panel Performed By: #### L 503.0105, L501.9520, L501.9910, L501.9985, L400.0001, L100.0100, L500.4100, L500.4050, L3300.0960, L3100.5310 #### [facility] Laboratory [address] [place], [address] Creatinine [Mass/Vol] 1.24 mg/dL High 0.70-1.20 [facility] Comment on above: Order Comment: Comme nts: NPO at [place] prior to lipid panel Performed By: #### L 503.0105, L501.9520, L501.9910, L501.9985, L400.0001, L100.0100, L500.4100, L500.4050, L3300.0960, L3100.5310 #### [facility] Laboratory [address] [place], [address] ECRCL 74.28 ml/min Normal 50-250 [facility] Comment on above: Order Comment: Comme nts: NPO at [place] prior to lipid panel Performed By: #### L 503.0105, L501.9520, L501.9910, L501.9985, L400.0001, L100.0100, L500.4100, L500.4050, L3300.0960, L3100.5310 #### [facility] Laboratory [address] [place], [address] GAP 13 Normal 5-15 [facility] Comment on above: Order Comment: Comme nts: NPO at [place] prior to lipid panel Performed By: #### L 503.0105, L501.9520, L501.9910, L501.9985, L400.0001, L100.0100, L500.4100, L500.4050, L3300.0960, L3100.5310 #### [facility] Laboratory [address] [place], [address] GFR/1.73 sq M.predicted among non-blacks MDRD (S/P/Bld) [Vol rate/Area] 68 mL/min/{1.73_m2} Normal >60 [facility] Comment on above: Order Comment: Comme nts: NPO at [place] prior to lipid panel Result Comment: mL/m in/1.73m2 CKD-EPI Creatinine Equation (2020) Performed By: #### L 503.0105, L501.9520, L501.9910, L501.9985, L400.0001, L100.0100, L500.4100, L500.4050, L3300.0960, L3100.5310 #### [facility] Laboratory [address] [place], [address] Glucose [Mass/Vol] 105 mg/dL High 70-99 [facility] Comment on above: Order Comment: Comme nts: NPO at [place] prior to lipid panel Performed By: #### L 503.0105, L501.9520, L501.9910, L501.9985, L400.0001, L100.0100, L500.4100, L500.4050, L3300.0960, L3100.5310 #### [facility] Laboratory [address] [place], [address] Potassium [Moles/Vol] 4.0 mmol/L Normal 3.3-5.1 [facility] Comment on above: Order Comment: Comme nts: NPO at [place] prior to lipid panel Performed By: #### L 503.0105, L501.9520, L501.9910, L501.9985, L400.0001, L100.0100, L500.4100, L500.4050, L3300.0960, L3100.5310 #### [facility] Laboratory [address] [place], [place], [phone] (965) Sodium [Moles/Vol] 140 mmol/L Normal 133-145 [facility] Comment on above: Order Comment: Comme nts: NPO at [place] prior to lipid panel Performed By: #### L 503.0105, L501.9520, L501.9910, L501.9985, L400.0001, L100.0100, L500.4100, L500.4050, L3300.0960, L3100.5310 #### [facility] Laboratory [address] [place], [place], [phone] (125) Urea nitrogen [Mass/Vol] 15 mg/dL Normal 4-19 [facility] Comment on above: Order Comment: Comme nts: NPO at [place] prior to lipid panel Performed By: #### L 503.0105, L501.9520, L501.9910, L501.9985, L400.0001, L100.0100, L500.4100, L500.4050, L3300.0960, L3100.5310 #### [facility] Laboratory [address] [facility] [place], [address] Basophil percentageOrdered B y: Joi Woodson on 05-26-2024 Basophils/100 WBC (Bld) 1.3 % High 0-1 [facility] CBC W/Diff, Automatedon Absolute Lymph 3.17 X10 3/uL Normal 0.83-4.51 [facility] Comment on above: Performed By: #### L 503.0105, L501.9520, L501.9910, L501.9985, L400.0001, L100.0100, L500.4100, L500.4050, L3300.0960, L3100.5310 #### [facility] Laboratory [address] [facility] [place], [address] Absolute Neut 3.4 X10 3/uL Normal 2.0-7.7 [facility] Comment on above: Performed By: #### L 503.0105, L501.9520, L501.9910, L501.9985, L400.0001, L100.0100, L500.4100, L500.4050, L3300.0960, L3100.5310 #### [facility] Laboratory [address] [place], [address] Basophils/100 WBC (Bld) 1.3 % High 0-1 [facility] Comment on above: Performed By: #### L 503.0105, L501.9520, L501.9910, L501.9985, L400.0001, L100.0100, L500.4100, L500.4050, L3300.0960, L3100.5310 #### [facility] Laboratory [address] [place], [address] Eosinophils/100 WBC (Bld) 4.9 % Normal 0-5 [facility] Comment on above: Performed By: #### L 503.0105, L501.9520, L501.9910, L501.9985, L400.0001, L100.0100, L500.4100, L500.4050, L3300.0960, L3100.5310 #### [facility] Laboratory [address] [place], [place], [phone] (579) Erythrocyte distribution width (RBC) [Ratio] 14.1 % Normal 11.6-14.6 [facility] Comment on above: Performed By: #### L 503.0105, L501.9520, L501.9910, L501.9985, L400.0001, L100.0100, L500.4100, L500.4050, L3300.0960, L3100.5310 #### [facility] Laboratory [address] [place], [address] Hematocrit (Bld) [Volume fraction] 41.9 % Normal 40-54 [facility] Comment on above: Performed By: #### L 503.0105, L501.9520, L501.9910, L501.9985, L400.0001, L100.0100, L500.4100, L500.4050, L3300.0960, L3100.5310 #### [facility] Laboratory [address] [place], [address] Hemoglobin (Bld) [Mass/Vol] 14.7 g/dL Normal 13.0-16.5 [facility] Comment on above: Performed By: #### L 503.0105, L501.9520, L501.9910, L501.9985, L400.0001, L100.0100, L500.4100, L500.4050, L3300.0960, L3100.5310 #### [facility] Laboratory [address] [place], [address] IG% 0.300 Normal 0.0-0.9 [facility] Comment on above: Result Comment: IG% - Immature Granulocytes (promyelocytes, myelocytes and metamyelocytes) > 1% indicates that a LEFT SHIFT is Present. Performed By: #### L 503.0105, L501.9520, L501.9910, L501.9985, L400.0001, L100.0100, L500.4100, L500.4050, L3300.0960, L3100.5310 #### [facility] Laboratory [address] [place], [address] Lymphocytes/100 WBC (Bld) 42.0 % High 19-41 [facility] Comment on above: Performed By: #### L 503.0105, L501.9520, L501.9910, L501.9985, L400.0001, L100.0100, L500.4100, L500.4050, L3300.0960, L3100.5310 #### [facility] Laboratory [address] [place], [address] MCH (RBC) [Entitic mass] 28.1 pg Normal 27.0-32.0 [facility] Comment on above: Performed By: #### L 503.0105, L501.9520, L501.9910, L501.9985, L400.0001, L100.0100, L500.4100, L500.4050, L3300.0960, L3100.5310 #### [facility] Laboratory [address] [place], [address] MCHC (RBC) [Mass/Vol] 35.1 g/dL Normal 32-36 [facility] Comment on above: Performed By: #### L 503.0105, L501.9520, L501.9910, L501.9985, L400.0001, L100.0100, L500.4100, L500.4050, L3300.0960, L3100.5310 #### [facility] Laboratory [address] [place], [address] MCV (RBC) [Entitic vol] 80.1 fL Normal 80-94 [facility] Comment on above: Performed By: #### L 503.0105, L501.9520, L501.9910, L501.9985, L400.0001, L100.0100, L500.4100, L500.4050, L3300.0960, L3100.5310 #### [facility] Laboratory [address] [place], [address] Monocytes/100 WBC (Bld) 6.0 % Normal 0-10 [facility] Comment on above: Performed By: #### L 503.0105, L501.9520, L501.9910, L501.9985, L400.0001, L100.0100, L500.4100, L500.4050, L3300.0960, L3100.5310 #### [facility] Laboratory [address] [place], [address] Neutrophils/100 WBC (Bld) 45.5 % Low 47-70 [facility] Comment on above: Performed By: #### L 503.0105, L501.9520, L501.9910, L501.9985, L400.0001, L100.0100, L500.4100, L500.4050, L3300.0960, L3100.5310 #### [facility] Laboratory [address] [place], [address] Nucleated RBC (Bld) [#/Vol] 0 10*3/uL Normal 0-5 [facility] Comment on above: Performed By: #### L 503.0105, L501.9520, L501.9910, L501.9985, L400.0001, L100.0100, L500.4100, L500.4050, L3300.0960, L3100.5310 #### [facility] Laboratory [address] [place], [address] Platelet mean volume (Bld) [Entitic vol] 9.8 fL Normal 6.2-12.0 [facility] Comment on above: Performed By: #### L 503.0105, L501.9520, L501.9910, L501.9985, L400.0001, L100.0100, L500.4100, L500.4050, L3300.0960, L3100.5310 #### [facility] Laboratory [address] [place], [address] Platelets (Bld) [#/Vol] 276 10*3/uL Normal 150-450 [facility] Comment on above: Performed By: #### L 503.0105, L501.9520, L501.9910, L501.9985, L400.0001, L100.0100, L500.4100, L500.4050, L3300.0960, L3100.5310 #### [facility] Laboratory [address] [place], [place], [phone] ([address] RBC (Bld) [#/Vol] 5.23 10*6/uL Normal 4.6-6.2 [facility] Comment on above: Performed By: #### L 503.0105, L501.9520, L501.9910, L501.9985, L400.0001, L100.0100, L500.4100, L500.4050, L3300.0960, L3100.5310 #### [facility] Laboratory [address] [place], [address] ( RDW SD 40.8 fl Normal 35.1-43.9 [facility] Comment on above: Performed By: #### L 503.0105, L501.9520, L501.9910, L501.9985, L400.0001, L100.0100, L500.4100, L500.4050, L3300.0960, L3100.5310 #### [facility] Laboratory [address] [place], [address] WBC (Bld) [#/Vol] 7.5 10*3/uL Normal 4.4-11.0 [facility] Comment on above: Performed By: #### L 503.0105, L501.9520, L501.9910, L501.9985, L400.0001, L100.0100, L500.4100, L500.4050, L3300.0960, L3100.5310 #### [facility] Laboratory [address] [place], [address] Calculated very low density lipoprotein (VLDL) cholesterol measurementOrdered By: Joi Guillermotravis on 05-26-2024 Calculated very low density lipoprotein (VLDL) cholesterol measurement 71 mg/dL High 5-40 [facility] VLDL Cholesterol 71 mg/dL High 5-40 [facility] Carbon dioxide, total [Moles /volume] in Central venous bloodOrdered By: Joi Guillermotravis on 05-26-2024 CO2 [Moles/Vol] 24.1 mmol/L 21.0-32.0 [facility] Chloride assayOrdered By: Na na Kandice on 05-26-2024 Chloride [Moles/Vol] 103 mmol/L 98-108 [facility] Discharge Instructionon Discharge Instruction [facility] Medical Records Department [address] [place] [address] Instructions for Home/Discharge Instructions 05/26/24 1342 MR#: [id number] Acct: [id number] Name: HAYDEN PENDLETON Christiano Rep #: [id number] : 1965 59 From: Marcos Lovelace DO [...] Reason for Your Visit: Vertigo Attending Provider: Macros Lovelace Primary Care Provider: Jess Rosas [facility] Consulting Providers: Nilo Hill; Radha Leyva; [...] Referrals / Follow Up: Jess Rosas Starr, COTTAGE SUPERVISOR-C [Primary Care Provider] - Disposition Disposition (needs filled in before D/C Order can be placed): Home, Self Care 05/26/24 1350 Marcos Lovelace DO CC: Jie Palacio; Hanna Hammond; [employer]OTT[employer] SUPERVISOR-C Jess Rosas; Alvin Ward; Ashanti Leslie MD; [...] Ravi Fonseca MD Signed Normal [facility] Echocardiogram study reportO rdered By: Tom Medina on 05-26-2024 Study report [facility] [address] [place] [address] Echo Complete 05/26/24 0830 MR#: [id number] Acct: [id number] Name: HAYDEN PENDLETON Rep #:[id number] : 1965 59 From: Tom Ly Attending [...] Date Dictated: 05/26/24 0830 Date Transcribed: 05/26/24 122 Overlock Operator: Signed [facility] Work Phone: Electrocardiogram reportOrde red By: Tom Medina on 05-26-2024 EKG study [facility] Cardi[facility] Services [address] [place] [address] 12 Lead EKG 05/25/24 1233 MR#: [id number] Acct: [id number] Name: HAYDEN PENDLETON Rep #:[id number] : 1965 59 From: Tom Medina MD Attending Dr: Dr. Marcos Lovelace DO Status: ADM DAJA Ordering Dr: Chucky Maya DO Date: 5 Location: [facility] Sex: M C Admitted: 05/25/24 Test Reason : DIZZINESS Blood Pressure : */* mmHG Vent. Rate : 69 BPM Atrial Rate : 69 BPM P-R Int : 208 ms QRS Dur : 86 ms QT Int : 372 ms P-R-T Axes : 60 85 79 degrees QTcB Int : 398 ms Normal sinus rhythm Normal ECG Confirmed by TOM MEDINA MD ([id number]), newspaper editor HEATHER PERALTA ([id number]) on 05/26/2024 9:33:56 AM Referred By: Chucky Maya Confirmed By: TOM MEDINA MD 05/26/24 0933 Date _ Tom Medina MD CC: COTTAGE SUPERVISORMervin Rosas; Dr. Marcos Lovelace DO; Dr. Chucky Maya DO ~ Signed [facility] Work Phone: Eosinophil percentageOrdered By: Joi Woodson on 05-26-2024 Eosinophils/100 WBC (Bld) 4.9 % 0-5 [facility] Erythrocyte distribution wid th (RBC) [Ratio]Ordered By: Joi Woodson on 05-26-2024 Erythrocyte distribution width (RBC) [Entitic vol] 40.8 fL 35.1-43.9 [facility] Erythrocyte distribution wid th ratioOrdered By: Joi Woodson on 05-26-2024 Erythrocyte distribution width (RBC) [Ratio] 14.1 % 11.6-14.6 [facility] Erythrocyte distribution wid th standard deviationOrdered By: Joi Woodson on 05-26-2024 Erythrocyte distribution width (RBC) [Ratio] 40.8 fl 35.1-43.9 [facility] Estimation of creatinine omar aranceOrdered By: Joi Woodson on 05-26-2024 Estimated Creatinine Clearance Calc 74.28 ml/min 50-250 [facility] GFR/1.73 sq M.predicted edgar g non-blacks MDRD (S/P/Bld) [Vol rate/Area]Ordered By: Joi Woodson on 05-26-2024 Estimated GFR (MDRD) Non-Af Amer 68 >60 [facility] Comment on above: mL/min/1.73m2 CKD-EP I Creatinine Equation (2020) Glomerular filtration rate ( GFR) estimation/1.73 sq m using serum, plasma, or whole bOrdered By: Joi Woodson on 05-26-2024 GFR/1.73 sq M.predicted among non-blacks MDRD (S/P/Bld) [Vol rate/Area] 68 mL/min/{1.73_m2} >60 [facility] Comment on above: mL/min/1.73m2 CKD-EP I Creatinine Equation (2020) Hematocrit Auto (Bld) [Volum e fraction]Ordered By: Joi Woodson on 05-26-2024 Hematocrit (Bld) [Volume fraction] 41.9 % 40-54 [facility] Hemoglobin measurementOrdere d By: Joi Woodson on 05-26-2024 Hemoglobin (Bld) [Mass/Vol] 14.7 g/dL 13.0-16.5 [facility] Immature granulocytes/100 WB C Auto (Bld)Ordered By: Joi Woodson on 05-26-2024 Immature granulocytes/100 WBC (Bld) 0.300 % 0.0-0.9 [facility] Comment on above: IG% - Immature Granu locytes (promyelocytes, myelocytes and metamyelocytes) > 1% indicates that a LEFT SHIFT is Present. LDL calc ser/plasOrdered By: Joi Woodson on 05-26-2024 Cholesterol in LDL [Mass/Vol] 162 mg/dL [facility] Comment on above: Crdhcwuvbc=918-538 m g/dL & Higher Hhwh=663 mg/dL or greater LDL Cholesterol, Calculated 162 mg/dL [facility] Comment on above: Jkggufeniq=628-075 m g/dL & Higher Mojk=408 mg/dL or greater Lipid Profileon 05-26-2024 CHOL:HDL 8.62 Normal [facility] Comment on above: Order Comment: Comme nts: NPO at [place] prior to lipid panel Performed By: #### L 503.0105, L501.9520, L501.9910, L501.9985, L400.0001, L100.0100, L500.4100, L500.4050, L3300.0960, L3100.5310 #### [facility] Laboratory [address] [place] [id number] ( Cholesterol [Mass/Vol] 263 mg/dL High <=200 [facility] Comment on above: Order Comment: Comme nts: NPO at [place] prior to lipid panel Result Comment: Chol esterol level, Desirable <200 mg/dL Borderline high cholesterol 200-239 mg/dL High cholesterol >=240 mg/dL Recommendations of the NCEP Adult Treatment Panel for the following risk-cutoff thresholds for the [place] population. Performed By: #### L 503.0105, L501.9520, L501.9910, L501.9985, L400.0001, L100.0100, L500.4100, L500.4050, L3300.0960, L3100.5310 #### [facility] Laboratory [address] [place] [id number] ( Cholesterol in HDL [Mass/Vol] 31 mg/dL Low [facility] Comment on above: Order Comment: Comme nts: NPO at [place] prior to lipid panel Result Comment: Hetal onal Cholesterol Education Program (NCEP) guidelines: <40 mg/dL: Low HDL-cholesterol (major risk factor for CHD) >= 60 mg/dL: High HDL-cholesterol (negative risk factor for CHD) HDL-cholesterol is affected by a number of factors, e.g. smoking, exercise, hormones, sex and age. Performed By: #### L 503.0105, L501.9520, L501.9910, L501.9985, L400.0001, L100.0100, L500.4100, L500.4050, L3300.0960, L3100.5310 #### [facility] Laboratory [address] [place] [id number] Cholesterol in LDL [Mass/Vol] 162 mg/dL Normal [facility] Comment on above: Order Comment: Comme nts: NPO at [place] prior to lipid panel Result Comment: Bord opvylz=963-451 mg/dL Higher Vjau=889 mg/dL or greater Performed By: #### L 503.0105, L501.9520, L501.9910, L501.9985, L400.0001, L100.0100, L500.4100, L500.4050, L3300.0960, L3100.5310 #### [facility] Laboratory [address] [place], [address] Cholesterol in VLDL [Mass/Vol] 71 mg/dL High 5-40 [facility] Comment on above: Order Comment: Comme nts: NPO at [place] prior to lipid panel Performed By: #### L 503.0105, L501.9520, L501.9910, L501.9985, L400.0001, L100.0100, L500.4100, L500.4050, L3300.0960, L3100.5310 #### [facility] Laboratory [address] [place], [address] Triglyceride [Mass/Vol] 355 mg/dL High [facility] Comment on above: Order Comment: Comme nts: NPO at [place] prior to lipid panel Result Comment: The drugs N-Acetylcysteine and Metamizole may falsely depress this assay. Normal range: <150 mg/dL Borderline High: 150-199 mg/dL High: 200-499 mg/dL Very High: >500 mg/dL Performed By: #### L 503.0105, L501.9520, L501.9910, L501.9985, L400.0001, L100.0100, L500.4100, L500.4050, L3300.0960, L3100.5310 #### [facility] Laboratory [address] [place], [address] Lymphocytes Auto (Unsp spec) [#/Vol]Ordered By: Joi Woodson on 05-26-2024 Lymphocytes (Bld) [#/Vol] 3.17 10*3/uL 0.83-4.5 1 [facility] Lymphocytes/100 WBC Auto (Un sp spec)Ordered By: Joi Woodson on 05-26-2024 Lymphocytes/100 WBC (Bld) 42.0 % High 19-41 [facility] MCV (mean corpuscular volume ) determinationOrdered By: Joi Woodson on 05-26-2024 MCV (RBC) [Entitic vol] 80.1 fL 80-94 [facility] MR/CON.PCM.NEon 05-26-2024 MR/CON.PCM.NE [facility] Medical Records Department [address] [place] [address] Consultation - Neurology 05/26/24 1039 MR#: [id number] Acct: [id number] Name: HAYDEN PENDLETON Rep #: [id number] : 1965 59 From: Ashanti Leslie MD PCP: Jess Rosas NP-C Status:DIS DAJA Location: [place] [address] Assessment and Plan: Neuro Assessment/Plan HAYDEN PENDLETON [...] has not had any significant headaches since 2018. He has gastrointestinal reflux symptoms. Omeprazole is [...] (more content not included)... Normal [facility] Mean corpuscular hemoglobin (MCH) determinationOrdered By: Joi Woodson on 05-26-2024 MCH (RBC) [Entitic mass] 28.1 pg 27.0-32.0 [facility] Mean corpuscular hemoglobin concentration (MCHC) determinationOrdered By: Joi Woodson on 05-26-2024 MCHC (RBC) [Mass/Vol] 35.1 g/dL 32-36 [facility] Mean platelet volume determi nationOrdered By: Joi Woodson 05-26-2024 Platelet mean volume (Bld) [Entitic vol] 9.8 fL 6.2-12.0 [facility] Monocyte percentageOrdered B y: Joi Woodson on 05-26-2024 Monocytes/100 WBC (Bld) 6.0 % 0-10 [facility] Neutrophil percentageOrdered By: Joi Woodson on 05-26-2024 Neutrophils/100 WBC (Bld) 45.5 % Low 47-70 [facility] Nucleated red blood cell per centageOrdered By: Joi Woodson on 05-26-2024 Nucleated RBC/100 WBC (Bld) [Ratio] 0 % 0-5 [facility] Platelet countOrdered By: Tana Woodson on 05-26-2024 Platelets (Bld) [#/Vol] 276 10*3/uL 150-450 [facility] Potassium (Unsp spec) [Mass/ Vol]Ordered By: Joi Woodson on 05-26-2024 Potassium [Moles/Vol] 4.0 mmol/L 3.3-5.1 [facility] Potassium measurement (mass/ volume)Ordered By: Joi Woodson on 05-26-2024 Potassium (Unsp spec) [Mass/Vol] 4.0 mmol/L 3.3-5.1 [facility] RBC Auto (Bld) [#/Vol]Ordere d By: Joi Woodson on 05-26-2024 RBC (Bld) [#/Vol] 5.23 10*6/uL 4.6-6.2 [facility] Screening total cholesterol/ high density lipoprotein (HDL) cholesterol ratioOrdered By: Joi Woodson on 05-26-2024 Cholesterol.total/Cholest igor in HDL [Mass ratio] 8.62 {ratio} [facility] Serum creatinine measurement (mass/volume)Ordered By: Joi Woodson on 05-26-2024 Creatinine [Mass/Vol] 1.24 mg/dL High 0.70-1.20 [facility] Serum glucose measurement (m ass/volume)Ordered By: Joi Woodson on 05-26-2024 Glucose [Mass/Vol] 105 mg/dL High 70-99 [facility] Serum or plasma calcium alexandrea urement (mass/volume)Ordered By: Joi Woodson on 05-26-2024 Calcium [Mass/Vol] 10.0 mg/dL 7.6-11.0 [facility] Serum or plasma cholesterol in HDL measurement (mass/volume)Ordered By: Joi Woodson on 05-26-2024 Cholesterol in HDL [Mass/Vol] 31 mg/dL Low >40 [facility] Comment on above: National Cholesterol Education Program (NCEP) guidelines:<40 mg/dL: Low HDL-cholesterol (major risk factor for CHD)>= 60 mg/dL: High HDL-cholesterol (negative risk factor for CHD)HDL-cholesterol is affected by a number of factors, e.g. smoking, exercise, hormones, sex and age. Serum or plasma cholesterol measurement (mass/volume)Ordered By: Joi Woodson on 05-26-2024 Cholesterol [Mass/Vol] 263 mg/dL High <201 [facility] Comment on above: Cholesterol level, D esirable <200 mg/dLBorderline high cholesterol 200-239 mg/dLHigh cholesterol >=240 mg/dLRecommendations of the NCEP Adult Treatment Panel for the following risk-cutoff thresholds for the [place] population. Serum or plasma urea nitroge n measurement (mass/volume)Ordered By: Joi Woodson on 05-26-2024 Urea nitrogen [Mass/Vol] 15 mg/dL 4-19 [facility] Sodium levelOrdered By: Joi Woodson on 05-26-2024 Sodium [Moles/Vol] 140 mmol/L 133-145 [facility] Triglycerides measurementOrd ered By: Joi Woodson on 05-26-2024 Triglyceride [Mass/Vol] 355 mg/dL High <199 [facility] Comment on above: The drugs N-Acetylcy steine and Metamizole may falsely depress this assay. Normal range: <150 mg/dLBorderline High: 150-199 mg/dLHigh: 200-499 mg/dLVery High: >500 mg/dL White blood cell (WBC) count Ordered By: Joi Woodson on 05-26-2024 WBC (Bld) [#/Vol] 7.5 10*3/uL 4.4-11.0 [facility] 12 Lead EKGon 05-25-2024 12 Lead EKG [facility] Cardiovascular Services [address] [place] [address] 12 Lead EKG 05/25/24 1233 MR#: [id number] Acct: [id number] Name: HAYDEN PENDLETON Rep #: [id number] : 1965 59 From: Tom Medina MD Attending Dr: Dr. Marcos Lovelace, Status : ADM DAJA Ordering Dr: Chucky Maya DO Date: 05/25/24 Location: [facility] Sex: M C Admitted: 05/25/24 Test Reason : DIZZINESS Blood Pressure : */* mmHG Vent. Rate : 69 BPM Atrial Rate : 69 BPM P-R Int : 208 ms QRS Dur : 86 ms QT Int : 372 ms P-R-T Axes : 60 85 79 degrees QTcB Int : 398 ms Normal sinus rhythm Normal ECG Confirmed by TOM MEDINA MD ([id number]), newspaper editor HEATHER PERALTA ([id number]) on 05/26/2024 9:33:56 AM Referred By: Chucky Maya Confirmed By: TOM MEDINA MD 05/26/2433 Date Tom Medina MD CC: SEBASTIÁN Rosas; Dr. Marcos Lovelace DO; Dr. Chucky Maya DO Signed Normal [facility] Absolute neutrophil countOrd ered By: Chucky Maya on 05-25-2024 Neutrophils (Bld) [#/Vol] 3.8 10*3/uL 2.0-7.7 [facility] Activated partial thrombopla stin time (aPTT) in platelet poor plasma by coagulation aOrdered By: Chucky Maya on 05-25-2024 aPTT Coag (PPP) [Time] 27.9 s 24.1-36.2 [facility] Anion gap in Serum or Plasma Ordered By: Chucky Maya on 05-25-2024 Anion gap [Moles/Vol] 13 mmol/L 5-15 [facility] Automated blood erythrocyte countOrdered By: Chucky Maya on 05-25-2024 RBC (Bld) [#/Vol] 5.61 10*6/uL Normal 4.6-6.2 [facility] Comment on above: Performed By: #### L 503.0105, L501.9520, L501.9910, L501.9985, L400.0001, L100.0100, L500.4100, L500.4050, L3300.0960, L3100.5310 #### [facility] Laboratory [address] [place], [address] Automated blood hematocrit ( percentage)Ordered By: Chucky Maya on 05-25-2024 Hematocrit (Bld) [Volume fraction] 45.0 % Normal 40-54 [facility] Comment on above: Performed By: #### L 503.0105, L501.9520, L501.9910, L501.9985, L400.0001, L100.0100, L500.4100, L500.4050, L3300.0960, L3100.5310 #### [facility] Laboratory [address] [place], [place], [id number] Automated lymphocyte count a s percentage of total leukocytesOrdered By: Chucky Maya on 05-25-2024 Lymphocytes/100 WBC (Bld) 37.0 % Normal - [facility] Comment on above: Performed By: #### L 503.0105, L501.9520, L501.9910, L501.9985, L400.0001, L100.0100, L500.4100, L500.4050, L3300.0960, L3100.5310 #### [facility] Laboratory [address] [place], [place], [id number] BUN/creatinine ratioOrdered By: Chucky Maya on 05-25-2024 Urea nitrogen/Creatinine [Mass ratio] 11.4 mg/mg 12-11 [facility] Basic Metabolic Profile (BMP )on 05-25-2024 BUN/CRE 11.4 RATIO Normal 12-11 [facility] Comment on above: Performed By: #### L 503.0105, L501.9520, L501.9910, L501.9985, L400.0001, L100.0100, L500.4100, L500.4050, L3300.0960, L3100.5310 #### [facility] Laboratory [address] [place], [place], [id number] Calcium [Mass/Vol] 10.2 mg/dL Normal 7.6-11.0 [facility] Comment on above: Performed By: #### L 503.0105, L501.9520, L501.9910, L501.9985, L400.0001, L100.0100, L500.4100, L500.4050, L3300.0960, L3100.5310 #### [facility] Laboratory [address] [place], [address] Chloride [Moles/Vol] 102 mmol/L Normal 98-108 [facility] Comment on above: Performed By: #### L 503.0105, L501.9520, L501.9910, L501.9985, L400.0001, L100.0100, L500.4100, L500.4050, L3300.0960, L3100.5310 #### [facility] Laboratory [address] [place], [address] CO2 [Moles/Vol] 25.4 mmol/L Normal 21.0-32.0 [facility] Comment on above: Performed By: #### L 503.0105, L501.9520, L501.9910, L501.9985, L400.0001, L100.0100, L500.4100, L500.4050, L3300.0960, L3100.5310 #### [facility] Laboratory [address] [place], [address] Creatinine [Mass/Vol] 1.32 mg/dL High 0.70-1.20 [facility] Comment on above: Performed By: #### L 503.0105, L501.9520, L501.9910, L501.9985, L400.0001, L100.0100, L500.4100, L500.4050, L3300.0960, L3100.5310 #### [facility] Laboratory [address] [place], [address] ECRCL 69.78 ml/min Normal 50-250 [facility] Comment on above: Performed By: #### L 503.0105, L501.9520, L501.9910, L501.9985, L400.0001, L100.0100, L500.4100, L500.4050, L3300.0960, L3100.5310 #### [facility] Laboratory [address] [place], [address] GAP 13 Normal 5-15 [facility] Comment on above: Performed By: #### L 503.0105, L501.9520, L501.9910, L501.9985, L400.0001, L100.0100, L500.4100, L500.4050, L3300.0960, L3100.5310 #### [facility] Laboratory [address] [place], [address] GFR/1.73 sq M.predicted among non-blacks MDRD (S/P/Bld) [Vol rate/Area] 63 mL/min/{1.73_m2} Normal >60 [facility] Comment on above: Result Comment: mL/m in/1.73m2 CKD-EPI Creatinine Equation (2020) Performed By: #### L 503.0105, L501.9520, L501.9910, L501.9985, L400.0001, L100.0100, L500.4100, L500.4050, L3300.0960, L3100.5310 #### [facility] Laboratory [address] [place], [place], [id number] (229) Glucose [Mass/Vol] 111 mg/dL High 70-99 [facility] Comment on above: Performed By: #### L 503.0105, L501.9520, L501.9910, L501.9985, L400.0001, L100.0100, L500.4100, L500.4050, L3300.0960, L3100.5310 #### [facility] Laboratory [address] [place], [address] Potassium [Moles/Vol] 4.3 mmol/L Normal 3.3-5.1 [facility] Comment on above: Performed By: #### L 503.0105, L501.9520, L501.9910, L501.9985, L400.0001, L100.0100, L500.4100, L500.4050, L3300.0960, L3100.5310 #### [facility] Laboratory [address] [place], [address] Sodium [Moles/Vol] 140 mmol/L Normal 133-145 [facility] Comment on above: Performed By: #### L 503.0105, L501.9520, L501.9910, L501.9985, L400.0001, L100.0100, L500.4100, L500.4050, L3300.0960, L3100.5310 #### [facility] Laboratory [address] [place], [address] Urea nitrogen [Mass/Vol] 15 mg/dL Normal 4-19 [facility] Comment on above: Performed By: #### L 503.0105, L501.9520, L501.9910, L501.9985, L400.0001, L100.0100, L500.4100, L500.4050, L3300.0960, L3100.5310 #### [facility] Laboratory [address] [place], [address] Basophil percentageOrdered B y: Chucky Le on 05-25-2024 Basophils/100 WBC (Bld) 1.6 % High 0-1 [facility] Comment on above: Performed By: #### L 503.0105, L501.9520, L501.9910, L501.9985, L400.0001, L100.0100, L500.4100, L500.4050, L3300.0960, L3100.5310 #### [facility] Laboratory [address] [place], [address] Brain without Contraston Brain without Contrast [facility] Imaging Services [address] [place] [address] Brain without Contrast MR#: [id number] Acct: [id number] Name: HAYDEN PENDLETON Rep #: [id number] : 1965 M 59 From: Anurag andujar MD PCP: SEBASTIÁN Pathak Status: ADM DAJA Study: Brain without Contrast Date of Exam: 05/25/24 Exam# [id number] Ordering Dr: Joi Woodson MD PROCEDURE: BRAIN [...] Minimal chronic microvascular ischemic changes. Reading Location: [facility] CC: SEBASTIÁN Rosas; Dr. Joi Woodson MD Overlock Operator: Signed Normal [facility] CBC W/Diff, Automatedon 04- Absolute Lymph 2.74 X10 3/uL Normal 0.83-4.51 [facility] Comment on above: Performed By: #### L 503.0105, L501.9520, L501.9910, L501.9985, L400.0001, L100.0100, L500.4100, L500.4050, L3300.0960, L3100.5310 #### [facility] Laboratory [address] [place], [address] Absolute Neut 3.8 X10 3/uL Normal 2.0-7.7 [facility] Comment on above: Performed By: #### L 503.0105, L501.9520, L501.9910, L501.9985, L400.0001, L100.0100, L500.4100, L500.4050, L3300.0960, L3100.5310 #### [facility] Laboratory [address] [place], [address] IG% 0.300 Normal 0.0-0.9 [facility] Comment on above: Result Comment: IG% - Immature Granulocytes (promyelocytes, myelocytes and metamyelocytes) > 1% indicates that a LEFT SHIFT is Present. Performed By: #### L 503.0105, L501.9520, L501.9910, L501.9985, L400.0001, L100.0100, L500.4100, L500.4050, L3300.0960, L3100.5310 #### [facility] Laboratory [address] [place], [address] Nucleated RBC (Bld) [#/Vol] 0 10*3/uL Normal 0-5 [facility] Comment on above: Performed By: #### L 503.0105, L501.9520, L501.9910, L501.9985, L400.0001, L100.0100, L500.4100, L500.4050, L3300.0960, L3100.5310 #### [facility] Laboratory [address] [place], [address] RDW SD 40.3 fl Normal 35.1-43.9 [facility] Comment on above: Performed By: #### L 503.0105, L501.9520, L501.9910, L501.9985, L400.0001, L100.0100, L500.4100, L500.4050, L3300.0960, L3100.5310 #### [facility] Laboratory [address] [place], [address] CTA Head AND Neck W/ Contras ton 05-25-2024 CTA Head AND Neck W/ Contrast [facility] Imaging Services [address], [place] [id number] (856) CTA Head AND Neck W/ Contrast MR#: [id number] Acct: [id number] Name: HAYDEN PENDLETON Rep #: [id number] : 1965 M 59 From: Robinson chin MD PCP: SEBASTIÁN Pathak Status: REG ER Study: CTA Head AND Neck W/ Contrast Date of Exam: Exam# [id number] Ordering Dr: Chucky Maya DO ADDENDUM by Dr. Robinson Trammell MD on 05/25/24 at 1416 This is an addendum report. The unenhanced CT scan of the head is unremarkable. Reading Location: [facility] 05/25/24 1417 Date cc: SEBASTIÁN Rosas; Dr. Chucky Maya DO * Signed [...] RIGHT Vertebral: Unremarkable. LEFT Vertebral: Unremarkable. Anatomy: [place] of [place] anatomy is normal. Aneurysm or [...] artery causing approximately 50% stenosis. Reading Location: [place] [address] CC: SEBASTIÁN Rosas; Dr. Chucky Maya DO Overlock Operator: Signed Normal [facility] Carbon dioxide, total [Moles /volume] in Central venous bloodOrdered By: Chucky Maya on 05-25-2024 CO2 [Moles/Vol] 25.4 mmol/L 21.0-32.0 [facility] Chloride assayOrdered By: Óscar Maya on 05-25-2024 Chloride [Moles/Vol] 102 mmol/L 98-108 [facility] Echo Completeon 05-25-2024 Echo Complete [facility] Cardiovascular Services [address] [place] [address] Echo Complete 05/26/24 0830 MR#: [id number] Acct: [id number] Name: HAYDEN PENDLETON Rep #: [id number] : 1965 59 From: Tom Medina MD Attending Dr: Dr. Marcos Lovelace DO Status : ADM DAJA Ordering Dr: Joi Woodson MD Date: 05/25/24 Location: PCU Sex: M C Admitted: 05/25/24 Reason For [...] By: Patrizia Rivera RDCS 05/26/24 1225 Date Tom Medina MD CC: COTTAGE SUPERVISOR-C Jess Rosas; Dr. Marcos Lovelace DO; Dr. Joi Woodson MD; Dr. Chucky Maya DO Date Dictated: 05/26/24829 Date Transcribed: 05/26/24 1224 Overlock Operator: Signed Normal [facility] Emergency Department Summary on 05-25-2024 Emergency Department Summary [facility] Medical Records Department [address] [place] [address] Emergency Department Summary 05/25/24 MR#: [id number] Acct: [id number] Name: HAYDEN PENDLETON Rep #: [id number] : 1965 59 From: Chucky Landon PCP: SEBASTIÁN Pathak Status:ADM DAJA Location: [place] [address] HPI History of Present Illness Chief Complaint: [...] (more content not included)... Normal [facility] Eosinophil percentageOrdered By: Chucky Maya on 05-25-2024 Eosinophils/100 WBC (Bld) 4.3 % Normal 0-5 [facility] Comment on above: Performed By: #### L 503.0105, L501.9520, L501.9910, L501.9985, L400.0001, L100.0100, L500.4100, L500.4050, L3300.0960, L3100.5310 #### [facility] Laboratory [address] [place] [address], [address] Erythrocyte distribution wid th (RBC) [Ratio]Ordered By: Chucky Maya on 05-25-2024 Erythrocyte distribution width (RBC) [Entitic vol] 40.3 fL 35.1-43.9 [facility] Erythrocyte distribution wid th ratioOrdered By: Chucky Maya on 05-25-2024 Erythrocyte distribution width (RBC) [Ratio] 13.9 % Normal 11.6-14.6 [facility] Comment on above: Performed By: #### L 503.0105, L501.9520, L501.9910, L501.9985, L400.0001, L100.0100, L500.4100, L500.4050, L3300.0960, L3100.5310 #### [facility] Laboratory [address] [place], [place], [address] Estimation of creatinine omar aranceOrdered By: Chucky Maya on 05-25-2024 Estimated Creatinine Clearance Calc 69.78 ml/min 50-250 [facility] GFR/1.73 sq M.predicted edgar g non-blacks MDRD (S/P/Bld) [Vol rate/Area]Ordered By: Chucky Maya on 05-25-2024 Estimated GFR (MDRD) Non-Af Amer 63 >60 [facility] Comment on above: mL/min/1.73m2 CKD-EP I Creatinine Equation (2020) H AND P Exam - [facility] 05-25-2024 H&P Exam - Hospitalist [facility] Medical Records Department [address] [place] [address] H P Exam - Hospitalist 05/25/24 1405 MR#: [id number] Acct: [id number] Name: HAYDEN PENDLETON Rep #: [id number] : 1965 59 From: Joi Woodson MD PCP: SEBASTIÁN Pathak Status:ADM DAJA Location: [place] [address] HPI - General General Date of Admission: [...] in the ED were Bp of 122/71, ME of 67, RR of 11 and oxygen sats of 97% on room air. CBC showed Hb of 15.1, wbc of 7.4 and platelets of 304. INR was 0.9. Chemistry showed sodium of 140, potassium of 4.3 and bicarb of 25.4. Anion gap is 13. Initial troponin was 7. CTA head and neck showed plaque [id number] at the origin of the right internal carotid artery causing <50% stenosis and atherosclerotic plaque formation at origin of the left internal carotid artery causing 50% stenosis. He is being admitted to be managed for persistent vertigo to rule out a stroke. [facility] Medical History (Updated 05/25/24 @ 17:37 by [...] (more content not included)... Normal [facility] Hemoglobin A1con 05-25-2024 HbA1c (Bld) [Mass fraction] 6.3 % Normal <=5.6 [facility] Comment on above: Performed By: #### L 503.0105, L501.9520, L501.9910, L501.9985, L400.0001, L100.0100, L500.4100, L500.4050, L3300.0960, L3100.5310 #### [facility] Laboratory [address] [place], [place], [id number] Hemoglobin A1c percentageOrd ered By: Joi Woodson on 05-25-2024 HbA1c (Bld) [Mass fraction] 6.3 % >5.7 [facility] Hemoglobin measurementOrdere d By: Chucky Zulma on 05-25-2024 Hemoglobin (Bld) [Mass/Vol] 15.7 g/dL Normal 13.0-16.5 [facility] Comment on above: Performed By: #### L 503.0105, L501.9520, L501.9910, L501.9985, L400.0001, L100.0100, L500.4100, L500.4050, L3300.0960, L3100.5310 #### [facility] Laboratory [address] [place], [place], [id number] Immature granulocytes/100 WB C Auto (Bld)Ordered By: Chucky Maya on 05-25-2024 Immature granulocytes/100 WBC (Bld) 0.300 % 0.0-0.9 [facility] Comment on above: IG% - Immature Granu locytes (promyelocytes, myelocytes and metamyelocytes) > 1% indicates that a LEFT SHIFT is Present. International normalized rat io (INR) calculationOrdered By: Chucky Maya on 05-25-2024 INR Coag (Bld) [Relative time] 0.9 {INR} [facility] L499.0042on 05-25-2024 Trop T High Sen 6 ng/L Normal <=22 [facility] Comment on above: Performed By: #### L 503.0105, L501.9520, L501.9910, L501.9985, L400.0001, L100.0100, L500.4100, L500.4050, L3300.0960, L3100.5310 #### [facility] Laboratory [address] [place], [place], [id number] L499.0043on 05-25-2024 Trop T High Sen 6 ng/L Normal <=22 [facility] Comment on above: Performed By: #### L 503.0105, L501.9520, L501.9910, L501.9985, L400.0001, L100.0100, L500.4100, L500.4050, L3300.0960, L3100.5310 #### [facility] Laboratory [address] [place], [address] L501.4021on 05-25-2024 Trop T High Sen 7 ng/L Normal <=22 [facility] Comment on above: Performed By: #### L 503.0105, L501.9520, L501.9910, L501.9985, L400.0001, L100.0100, L500.4100, L500.4050, L3300.0960, L3100.5310 #### [facility] Laboratory [address] [place], [address] Lymphocytes Auto (Unsp spec) [#/Vol]Ordered By: Chucky Maya on 05-25-2024 Lymphocytes (Bld) [#/Vol] 2.74 10*3/uL 0.83-4.5 1 [facility] MCV (mean corpuscular volume ) determinationOrdered By: Chucky Maya on 05-25-2024 MCV (RBC) [Entitic vol] 80.2 fL Normal 80-94 [facility] Comment on above: Performed By: #### L 503.0105, L501.9520, L501.9910, L501.9985, L400.0001, L100.0100, L500.4100, L500.4050, L3300.0960, L3100.5310 #### [facility] Laboratory [address] [place], [place], [id number] Magnetic resonance imaging r eportOrdered By: Anurag Og on 05-25-2024 Study report [facility] Imaging Services [address], [place] [id number] Brain without Contrast MR#: [id number] Acct: [id number] Name: HAYDEN PENDLETON Rep #: [id number] : 1965 M 59 From: Kristen Og MD PCP: SEBASTIÁN Pathak Status: ADM DAJA Study:Brain without Contrast Date of Exam: 05/25/24 Exam# [id number] Ordering Dr: Tana Woodson MD PROCEDURE: BRAIN [...] Minimal chronic microvascular ischemic changes. [facility] CC: COTTAGE SUPERVISORMervin Rosas; Dr. Joi Woodson MD ~ Overlock Operator: Signed [facility] Mean corpuscular hemoglobin (MCH) determinationOrdered By: Chucky Maya on 05-25-2024 MCH (RBC) [Entitic mass] 28.0 pg Normal 27.0-32.0 [facility] Comment on above: Performed By: #### L 503.0105, L501.9520, L501.9910, L501.9985, L400.0001, L100.0100, L500.4100, L500.4050, L3300.0960, L3100.5310 #### [facility] Laboratory [facility] [place], [address] Mean corpuscular hemoglobin concentration (MCHC) determinationOrdered By: Chucky Maya on 05-25-2024 MCHC (RBC) [Mass/Vol] 34.9 g/dL Normal 32-36 [facility] Comment on above: Performed By: #### L 503.0105, L501.9520, L501.9910, L501.9985, L400.0001, L100.0100, L500.4100, L500.4050, L3300.0960, L3100.5310 #### [facility] Laboratory [address] [place], [place], [id number] Mean platelet volume determi nationOrdered By: Chucky Maya on 05-25-2024 Platelet mean volume (Bld) [Entitic vol] 9.7 fL Normal 6.2-12.0 [facility] Comment on above: Performed By: #### L 503.0105, L501.9520, L501.9910, L501.9985, L400.0001, L100.0100, L500.4100, L500.4050, L3300.0960, L3100.5310 #### [facility] Laboratory [address] [place], [address] Monocyte percentageOrdered B y: Chucky Maya on 05-25-2024 Monocytes/100 WBC (Bld) 5.5 % Normal 0-10 [facility] Comment on above: Performed By: #### L 503.0105, L501.9520, L501.9910, L501.9985, L400.0001, L100.0100, L500.4100, L500.4050, L3300.0960, L3100.5310 #### [facility] Laboratory [address] [place], [place], [id number] Neutrophil percentageOrdered By: Chucky Maya on 05-25-2024 Neutrophils/100 WBC (Bld) 51.3 % Normal 47-70 [facility] Comment on above: Performed By: #### L 503.0105, L501.9520, L501.9910, L501.9985, L400.0001, L100.0100, L500.4100, L500.4050, L3300.0960, L3100.5310 #### [facility] Laboratory [address] [place], [place], [id number] Nucleated red blood cell per centageOrdered By: Chucky Maya on 05-25-2024 Nucleated RBC/100 WBC (Bld) [Ratio] 0 % 0-5 [facility] Partial Thromboplast Timeon 05-25-2024 aPTT Coag (Bld) [Time] 27.9 s Normal 24.1-36.2 [facility] Comment on above: Performed By: #### L 503.0105, L501.9520, L501.9910, L501.9985, L400.0001, L100.0100, L500.4100, L500.4050, L3300.0960, L3100.5310 #### [facility] Laboratory [address] [place], [place], [id number] Platelet countOrdered By: Óscar Maya on 05-25-2024 Platelets (Bld) [#/Vol] 304 10*3/uL Normal 150-450 [facility] Comment on above: Performed By: #### L 503.0105, L501.9520, L501.9910, L501.9985, L400.0001, L100.0100, L500.4100, L500.4050, L3300.0960, L3100.5310 #### [facility] Laboratory [address] [place], [place], [id number] Potassium (Unsp spec) [Mass/ Vol]Ordered By: Chucky Maya on 05-25-2024 Potassium [Moles/Vol] 4.3 mmol/L 3.3-5.1 [facility] Prothrombin Time w/INRon INR Coag (PPP) [Relative time] 0.9 {INR} Normal [facility] Comment on above: Performed By: #### L 503.0105, L501.9520, L501.9910, L501.9985, L400.0001, L100.0100, L500.4100, L500.4050, L3300.0960, L3100.5310 #### [facility] Laboratory [address] [facility] [address] PT Coag (PPP) [Time] 12.6 s Normal 11.7-14.9 [facility] Comment on above: Performed By: #### L 503.0105, L501.9520, L501.9910, L501.9985, L400.0001, L100.0100, L500.4100, L500.4050, L3300.0960, L3100.5310 #### [facility] Laboratory [address] [place], [address] Prothrombin timeOrdered By: Chucky Maya on 05-25-2024 PT Coag (PPP) [Time] 12.6 s 11.7-14.9 [facility] Serum creatinine measurement (mass/volume)Ordered By: Chucky Maya on 05-25-2024 Creatinine [Mass/Vol] 1.32 mg/dL High 0.70-1.20 [facility] Serum glucose measurement (m ass/volume)Ordered By: Chucky Maya on 05-25-2024 Glucose [Mass/Vol] 111 mg/dL High 70-99 [facility] Serum or plasma calcium alexandrea urement (mass/volume)Ordered By: Chucky Maya on 05-25-2024 Calcium [Mass/Vol] 10.2 mg/dL 7.6-11.0 [facility] Serum or plasma urea nitroge n measurement (mass/volume)Ordered By: Chucky Maya on 05-25-2024 Urea nitrogen [Mass/Vol] 15 mg/dL 4-19 [facility] Sodium levelOrdered By: Chucky Maya on 05-25-2024 Sodium [Moles/Vol] 140 mmol/L 133-145 [facility] Troponin T.cardiac High sens itivity method [Mass/Vol]Ordered By: Chucky Maya on 05-25-2024 Troponin T High Sensitivity 4 Hour 6 ng/L <22 [facility] Troponin T High Sensitivity 2 Hour 6 ng/L <22 [facility] Troponin T High Sensitivity 7 ng/L <22 [facility] Troponin T.cardiac [Mass/vol ume] in Serum or Plasma by High sensitivity methodOrdered By: Chucky Maya on 05-25-2024 Troponin T.cardiac High sensitivity method [Mass/Vol] 6 ng/L <22 [facility] Troponin T.cardiac High sensitivity method [Mass/Vol] 6 ng/L <22 [facility] Troponin T.cardiac High sensitivity method [Mass/Vol] 7 ng/L <22 [facility] White blood cell (WBC) count Ordered By: Chucky Maya on 05-25-2024 WBC (Bld) [#/Vol] 7.4 10*3/uL Normal 4.4-11.0 [facility] Comment on above: Performed By: #### L 503.0105, L501.9520, L501.9910, L501.9985, L400.0001, L100.0100, L500.4100, L500.4050, L3300.0960, L3100.5310 #### [facility] Laboratory [address] [place], [place], [id number] aPTT Coag (PPP) [Time]Ordere d By: Chucky Maya on 05-25-2024 aPTT Coag (Bld) [Time] 27.9 s 24.1-36.2 [facility] CBC W/Diff, Automatedon 03-2 Absolute Neut Normal 2.0-7.7 [facility] Comment on above: Result Comment: WRON G ORDER Performed By: #### L 503.0105, L501.9520, L501.9910, L501.9985, L400.0001, L100.0100, L500.4100, L500.4050, L3300.0960, L3100.5310 #### [facility] Laboratory [address] [place], [place], [phone] HCT Normal 40-54 [facility] Comment on above: Result Comment: WRON G ORDER Performed By: #### L 503.0105, L501.9520, L501.9910, L501.9985, L400.0001, L100.0100, L500.4100, L500.4050, L3300.0960, L3100.5310 #### [facility] Laboratory [address] [place], [address] HGB Normal 13.0-16.5 [facility] Comment on above: Result Comment: WRON G ORDER Performed By: #### L 503.0105, L501.9520, L501.9910, L501.9985, L400.0001, L100.0100, L500.4100, L500.4050, L3300.0960, L3100.5310 #### [facility] Laboratory [address] [place], [address] MCH Normal 27.0-32.0 [facility] Comment on above: Result Comment: WRON G ORDER Performed By: #### L 503.0105, L501.9520, L501.9910, L501.9985, L400.0001, L100.0100, L500.4100, L500.4050, L3300.0960, L3100.5310 #### [facility] Laboratory [address] [place], [place], [phone] (821) MCHC Normal 32-36 [facility] Comment on above: Result Comment: WRON G ORDER Performed By: #### L 503.0105, L501.9520, L501.9910, L501.9985, L400.0001, L100.0100, L500.4100, L500.4050, L3300.0960, L3100.5310 #### [facility] Laboratory [address] [place], [address] MCV Normal 80-94 [facility] Comment on above: Result Comment: WRON G ORDER Performed By: #### L 503.0105, L501.9520, L501.9910, L501.9985, L400.0001, L100.0100, L500.4100, L500.4050, L3300.0960, L3100.5310 #### [facility] Laboratory [address] [place], [place], [phone] (313) NEUT% Normal 47-70 [facility] Comment on above: Result Comment: WRON G ORDER Performed By: #### L 503.0105, L501.9520, L501.9910, L501.9985, L400.0001, L100.0100, L500.4100, L500.4050, L3300.0960, L3100.5310 #### [facility] Laboratory [address] [place], [place], [phone] (664) PLT Normal 150-450 [facility] Comment on above: Result Comment: WRON G ORDER Performed By: #### L 503.0105, L501.9520, L501.9910, L501.9985, L400.0001, L100.0100, L500.4100, L500.4050, L3300.0960, L3100.5310 #### [facility] Laboratory [address] [place], [address] RBC Normal 4.6-6.2 [facility] Comment on above: Result Comment: WRON G ORDER Performed By: #### L 503.0105, L501.9520, L501.9910, L501.9985, L400.0001, L100.0100, L500.4100, L500.4050, L3300.0960, L3100.5310 #### [facility] Laboratory [address] [place], [place], [phone] (382) RDW CV Normal 11.6-14.6 [facility] Comment on above: Result Comment: WRON G ORDER Performed By: #### L 503.0105, L501.9520, L501.9910, L501.9985, L400.0001, L100.0100, L500.4100, L500.4050, L3300.0960, L3100.5310 #### [facility] Laboratory [address] [place], [place], [phone] (836) RDW SD Normal 35.1-43.9 [facility] Comment on above: Result Comment: WRON G ORDER Performed By: #### L 503.0105, L501.9520, L501.9910, L501.9985, L400.0001, L100.0100, L500.4100, L500.4050, L3300.0960, L3100.5310 #### [facility] Laboratory [address] [place], [place], [phone] (793) WBC Normal 4.4-11.0 [facility] Comment on above: Result Comment: WRON G ORDER Performed By: #### L 503.0105, L501.9520, L501.9910, L501.9985, L400.0001, L100.0100, L500.4100, L500.4050, L3300.0960, L3100.5310 #### [facility] Laboratory [address] [place], [place], [phone] Free testosterone percentage Ordered By: Jess Rosas on 2024 Testosterone Free/Testosterone.total [Mass fraction] 3.73 % 1.50-4.20 [facility] Comment on above: Performed at: [address] [id number] Director: Loy Lopez PhD, Phone: [phone] at: [facility] [address] [id number] Director: Sylvia Chapman MD, Phone: [phone] Iron+Iron Binding Capacityon 2024 IRON Normal 65-175 [facility] Comment on above: Result Comment: WRON G ORDER Performed By: #### L 503.0105, L501.9520, L501.9910, L501.9985, L400.0001, L100.0100, L500.4100, L500.4050, L3300.0960, L3100.5310 #### [facility] Laboratory [address] [place], [place], [phone] IRON SATURATION Normal 9-55 [facility] Comment on above: Result Comment: WRON G ORDER Performed By: #### L 503.0105, L501.9520, L501.9910, L501.9985, L400.0001, L100.0100, L500.4100, L500.4050, L3300.0960, L3100.5310 #### [facility] Laboratory [address] [place], [address] TIBC Normal 250-450 [facility] Comment on above: Result Comment: WRON G ORDER Performed By: #### L 503.0105, L501.9520, L501.9910, L501.9985, L400.0001, L100.0100, L500.4100, L500.4050, L3300.0960, L3100.5310 #### [facility] Laboratory [address] [place], [address] UIBC Normal 228-428 [facility] Comment on above: Result Comment: WRON G ORDER Performed By: #### L 503.0105, L501.9520, L501.9910, L501.9985, L400.0001, L100.0100, L500.4100, L500.4050, L3300.0960, L3100.5310 #### [facility] Laboratory [address] [place], [address] Lipid Profileon 2024 TRIG Normal [facility] Comment on above: Result Comment: WRON G ORDER The drugs N-Acetylcysteine and Metamizole may falsely depress this assay. Performed By: #### L 503.0105, L501.9520, L501.9910, L501.9985, L400.0001, L100.0100, L500.4100, L500.4050, L3300.0960, L3100.5310 #### [facility] Laboratory [address] [place], [address] CHOL Normal <=200 [facility] Comment on above: Result Comment: WRON G ORDER Performed By: #### L 503.0105, L501.9520, L501.9910, L501.9985, L400.0001, L100.0100, L500.4100, L500.4050, L3300.0960, L3100.5310 #### [facility] Laboratory [address] [place], [place], [phone] CHOL:HDL Normal [facility] Comment on above: Result Comment: WRON G ORDER Performed By: #### L 503.0105, L501.9520, L501.9910, L501.9985, L400.0001, L100.0100, L500.4100, L500.4050, L3300.0960, L3100.5310 #### [facility] Laboratory [address] [place], [place], [phone] CLDL Normal [facility] Comment on above: Result Comment: WRON G ORDER Performed By: #### L 503.0105, L501.9520, L501.9910, L501.9985, L400.0001, L100.0100, L500.4100, L500.4050, L3300.0960, L3100.5310 #### [facility] Laboratory [address] [place], [place], [phone] HDL Normal [facility] Comment on above: Result Comment: WRON G ORDER Performed By: #### L 503.0105, L501.9520, L501.9910, L501.9985, L400.0001, L100.0100, L500.4100, L500.4050, L3300.0960, L3100.5310 #### [facility] Laboratory [address] [place], [place], [phone] VLDL Normal 5-40 [facility] Comment on above: Result Comment: WRON G ORDER Performed By: #### L 503.0105, L501.9520, L501.9910, L501.9985, L400.0001, L100.0100, L500.4100, L500.4050, L3300.0960, L3100.5310 #### [facility] Laboratory [address] [place], [address] Serum or plasma free testost erone measurement (mass/volume)Ordered By: Jess Rosas on 2024 Testosterone Free [Mass/Vol] 14.88 ng/dL 5.00-21.00 [facility] Testosterone, totalOrdered B y: Jess Rosas on 2024 Testosterone [Mass/Vol] 399 ng/dL 264-916 [facility] Comment on above: Adult male reference interval is based on a population ofhealthy nonobese males (BMI <30) between 19 and 39 yearsold. Devan, et.al. JCEM 2017,102;0431-5479. PMID:[id number]. Testosterone, Total / Freeon 02-28-2024 TESTOSTER,FREE 8.11 ng/dL Normal 5.00-21.00 [facility] Comment on above: Order Comment: N Performed By: #### L 503.0105, L501.9520, L501.9910, L501.9985, L400.0001, L100.0100, L500.4100, L500.4050, L3300.0960, L3100.5310 #### [facility] Laboratory [address] [place], [address] TESTOSTER,TOTAL 297 ng/dL Normal 264-916 [facility] Comment on above: Order Comment: N Result Comment: Adul t male reference interval is based on a population of healthy nonobese males (BMI <30) between 19 and 39 years old. Devan et.al. JCEM 2017,102;7673-7656. PMID: [id number]. Performed By: #### L 503.0105, L501.9520, L501.9910, L501.9985, L400.0001, L100.0100, L500.4100, L500.4050, L3300.0960, L3100.5310 #### [facility] Laboratory [address] [place], [address] TESTOSTERONE,%F 2.73 Normal 1.50-4.20 [facility] Comment on above: Order Comment: N Result Comment: Perf ormed at: [address] [id number] Acquisition Advisor: Loy Lopez PhD, Phone: [phone] Performed at: [facility] [employer] [id number] Acquisition Advisor: Sylvia Chapman MD, Phone: [phone] Performed By: #### L 503.0105, L501.9520, L501.9910, L501.9985, L400.0001, L100.0100, L500.4100, L500.4050, L3300.0960, L3100.5310 #### [facility] Laboratory [address] [place], [address] Vitamin D 1,25-Dihydroxyon 0 02-26-2024 VIT D 1,25 DIHY 32.0 pg/mL Normal 24.8-81.5 [facility] Comment on above: Result Comment: Perf ormed at: [facility] [employer] [id number] Acquisition Advisor: Sylvia Chapman MD, Phone: [phone] Performed By: #### L 503.0105, L501.9520, L501.9910, L501.9985, L400.0001, L100.0100, L500.4100, L500.4050, L3300.0960, L3100.5310 #### [facility] Laboratory [address] [place], [place], [id number] 1,25-dihydroxyvitamin D3 [Ma ss/Vol]Ordered By: Jess Rosas on 02-24-2024 Vitamin D 1,25-Dihydroxy 32.0 pg/mL 24.8-81.5 [facility] Comment on above: Performed at: [employer] [address] [id number] Director: Sylvia Chapman MD, Phone: [phone] Absolute neutrophil countOrd ered By: Jess Rosas on 02-24-2024 Neutrophils (Bld) [#/Vol] 3.6 10*3/uL 2.0-7.7 [facility] Albumin to globulin ratioOrd ered By: Jess Rosas on 02-24-2024 Albumin/Globulin [Mass ratio] 1.0 {ratio} 0.9-2.4 [facility] Basophil percentageOrdered B y: Jess Rosas on 02-24-2024 Basophils/100 WBC (Bld) 1.4 % High 0-1 [facility] Bilirubin Test strip Ql (U)O rdered By: Jess Rosas on 02-24-2024 Bilirubin Ql (U) Negative Negative [facility] Bilirubin, totalOrdered By: Jess Bentonder on 02-24-2024 Bilirubin [Mass/Vol] 0.40 mg/dL 0.20-1.00 [facility] Comment on above: For patients on eltr ombopag therapy, use of Dimension Husser TBIL is not recommended. Blood urea nitrogen (BUN)/cr eatinine ratioOrdered By: Jess Bentonder on 02-24-2024 Urea nitrogen/Creatinine [Mass ratio] 12.2 mg/mg 10-20 [facility] CBC W/Diff, Automatedon Absolute Lymph 2.94 X10 3/uL Normal 0.83-4.51 [facility] Comment on above: Performed By: #### L 503.0105, L501.9520, L501.9910, L501.9985, L400.0001, L100.0100, L500.4100, L500.4050, L3300.0960, L3100.5310 #### [facility] Laboratory [address] [place], [place], [phone] Absolute Neut 3.6 X10 3/uL Normal 2.0-7.7 [facility] Comment on above: Performed By: #### L 503.0105, L501.9520, L501.9910, L501.9985, L400.0001, L100.0100, L500.4100, L500.4050, L3300.0960, L3100.5310 #### [facility] Laboratory [address] [place], [address] Basophils/100 WBC (Bld) 1.4 % High 0-1 [facility] Comment on above: Performed By: #### L 503.0105, L501.9520, L501.9910, L501.9985, L400.0001, L100.0100, L500.4100, L500.4050, L3300.0960, L3100.5310 #### [facility] Laboratory [address] [place], [address] Eosinophils/100 WBC (Bld) 5.6 % High 0-5 [facility] Comment on above: Performed By: #### L 503.0105, L501.9520, L501.9910, L501.9985, L400.0001, L100.0100, L500.4100, L500.4050, L3300.0960, L3100.5310 #### [facility] Laboratory [address] [place], [place], [phone] ([address] Erythrocyte distribution width (RBC) [Ratio] 14.3 % Normal 11.6-14.6 [facility] Comment on above: Performed By: #### L 503.0105, L501.9520, L501.9910, L501.9985, L400.0001, L100.0100, L500.4100, L500.4050, L3300.0960, L3100.5310 #### [facility] Laboratory [address] [place], [address] Hematocrit (Bld) [Volume fraction] 45.8 % Normal 40-54 [facility] Comment on above: Performed By: #### L 503.0105, L501.9520, L501.9910, L501.9985, L400.0001, L100.0100, L500.4100, L500.4050, L3300.0960, L3100.5310 #### [facility] Laboratory [address] [place], [address] Hemoglobin (Bld) [Mass/Vol] 15.9 g/dL Normal 13.0-16.5 [facility] Comment on above: Performed By: #### L 503.0105, L501.9520, L501.9910, L501.9985, L400.0001, L100.0100, L500.4100, L500.4050, L3300.0960, L3100.5310 #### [facility] Laboratory [address] [place], [address] IG% 0.400 Normal 0.0-0.9 [facility] Comment on above: Result Comment: IG% - Immature Granulocytes (promyelocytes, myelocytes and metamyelocytes) > 1% indicates that a LEFT SHIFT is Present. Performed By: #### L 503.0105, L501.9520, L501.9910, L501.9985, L400.0001, L100.0100, L500.4100, L500.4050, L3300.0960, L3100.5310 #### [facility] Laboratory [address] [place], [address] Lymphocytes/100 WBC (Bld) 38.4 % Normal 19-41 [facility] Comment on above: Performed By: #### L 503.0105, L501.9520, L501.9910, L501.9985, L400.0001, L100.0100, L500.4100, L500.4050, L3300.0960, L3100.5310 #### [facility] Laboratory [address] [place], [address] MCH (RBC) [Entitic mass] 28.2 pg Normal 27.0-32.0 [facility] Comment on above: Performed By: #### L 503.0105, L501.9520, L501.9910, L501.9985, L400.0001, L100.0100, L500.4100, L500.4050, L3300.0960, L3100.5310 #### [facility] Laboratory [address] [place], [address] MCHC (RBC) [Mass/Vol] 34.7 g/dL Normal 32-36 [facility] Comment on above: Performed By: #### L 503.0105, L501.9520, L501.9910, L501.9985, L400.0001, L100.0100, L500.4100, L500.4050, L3300.0960, L3100.5310 #### [facility] Laboratory [address] [place], [address] MCV (RBC) [Entitic vol] 81.3 fL Normal 80-94 [facility] Comment on above: Performed By: #### L 503.0105, L501.9520, L501.9910, L501.9985, L400.0001, L100.0100, L500.4100, L500.4050, L3300.0960, L3100.5310 #### [facility] Laboratory [address] [place], [address] Monocytes/100 WBC (Bld) 6.9 % Normal 0-10 [facility] Comment on above: Performed By: #### L 503.0105, L501.9520, L501.9910, L501.9985, L400.0001, L100.0100, L500.4100, L500.4050, L3300.0960, L3100.5310 #### [facility] Laboratory [address] [place], [address] Neutrophils/100 WBC (Bld) 47.3 % Normal 47-70 [facility] Comment on above: Performed By: #### L 503.0105, L501.9520, L501.9910, L501.9985, L400.0001, L100.0100, L500.4100, L500.4050, L3300.0960, L3100.5310 #### [facility] Laboratory [address] [place], [address] Nucleated RBC (Bld) [#/Vol] 0 10*3/uL Normal 0-5 [facility] Comment on above: Performed By: #### L 503.0105, L501.9520, L501.9910, L501.9985, L400.0001, L100.0100, L500.4100, L500.4050, L3300.0960, L3100.5310 #### [facility] Laboratory [address] [place], [address] Platelet mean volume (Bld) [Entitic vol] 9.5 fL Normal 6.2-12.0 [facility] Comment on above: Performed By: #### L 503.0105, L501.9520, L501.9910, L501.9985, L400.0001, L100.0100, L500.4100, L500.4050, L3300.0960, L3100.5310 #### [facility] Laboratory [address] [place], [address] Platelets (Bld) [#/Vol] 292 10*3/uL Normal 150-450 [facility] Comment on above: Performed By: #### L 503.0105, L501.9520, L501.9910, L501.9985, L400.0001, L100.0100, L500.4100, L500.4050, L3300.0960, L3100.5310 #### [facility] Laboratory [address] [place], [address] RBC (Bld) [#/Vol] 5.63 10*6/uL Normal 4.6-6.2 [facility] Comment on above: Performed By: #### L 503.0105, L501.9520, L501.9910, L501.9985, L400.0001, L100.0100, L500.4100, L500.4050, L3300.0960, L3100.5310 #### [facility] Laboratory [address] [place], [address] RDW SD 41.4 fl Normal 35.1-43.9 [facility] Comment on above: Performed By: #### L 503.0105, L501.9520, L501.9910, L501.9985, L400.0001, L100.0100, L500.4100, L500.4050, L3300.0960, L3100.5310 #### [facility] Laboratory [address] [place], [address] WBC (Bld) [#/Vol] 7.7 10*3/uL Normal 4.4-11.0 [facility] Comment on above: Performed By: #### L 503.0105, L501.9520, L501.9910, L501.9985, L400.0001, L100.0100, L500.4100, L500.4050, L3300.0960, L3100.5310 #### [facility] Laboratory [address] [place], [place], [id number] Carbon dioxide measurementOr dered By: Jess Rosas on 02-24-2024 CO2 [Moles/Vol] 31.0 mmol/L 21.0-32.0 [facility] Chloride measurementOrdered By: Jess Rosas on 02-24-2024 Chloride [Moles/Vol] 103 mmol/L 98-107 [facility] Comprehensive Metabolic Prof ilon 02-24-2024 Albumin [Mass/Vol] 4.0 g/dL Normal 3.2-5.0 [facility] Comment on above: Performed By: #### L 503.0105, L501.9520, L501.9910, L501.9985, L400.0001, L100.0100, L500.4100, L500.4050, L3300.0960, L3100.5310 #### [facility] Laboratory [address] [place], [place], [phone] (104) Albumin/Globulin [Mass ratio] 1.0 {ratio} Normal 0.9-2.4 [facility] Comment on above: Performed By: #### L 503.0105, L501.9520, L501.9910, L501.9985, L400.0001, L100.0100, L500.4100, L500.4050, L3300.0960, L3100.5310 #### [facility] [address] [place], [place], [phone] ([phone] ALK P 76 U/L Normal 45-117 [facility] Comment on above: Performed By: #### L 503.0105, L501.9520, L501.9910, L501.9985, L400.0001, L100.0100, L500.4100, L500.4050, L3300.0960, L3100.5310 #### [facility] [address] [place], [id number] ALT [Catalytic activity/Vol] 44 U/L Normal 16-61 [facility] Comment on above: Performed By: #### L 503.0105, L501.9520, L501.9910, L501.9985, L400.0001, L100.0100, L500.4100, L500.4050, L3300.0960, L3100.5310 #### [facility] Laboratory [address] [place], [place], [id number] AST [Catalytic activity/Vol] 25 U/L Normal 15-37 [facility] Comment on above: Performed By: #### L 503.0105, L501.9520, L501.9910, L501.9985, L400.0001, L100.0100, L500.4100, L500.4050, L3300.0960, L3100.5310 #### [facility] Laboratory [address] [place], [place], [phone] Bilirubin [Mass/Vol] 0.40 mg/dL Normal 0.20-1.00 [facility] Comment on above: Result Comment: For patients on eltrombopag therapy, use of Dimension Husser TBIL is not recommended. Performed By: #### L 503.0105, L501.9520, L501.9910, L501.9985, L400.0001, L100.0100, L500.4100, L500.4050, L3300.0960, L3100.5310 #### [facility] Laboratory [address] [place], [address] BUN/CRE 12.2 RATIO Normal 10-20 [facility] Comment on above: Performed By: #### L 503.0105, L501.9520, L501.9910, L501.9985, L400.0001, L100.0100, L500.4100, L500.4050, L3300.0960, L3100.5310 #### [facility] Laboratory [address] [place], [address] CA,Total 9.4 mg/dL Normal 8.5-10.1 [facility] Comment on above: Performed By: #### L 503.0105, L501.9520, L501.9910, L501.9985, L400.0001, L100.0100, L500.4100, L500.4050, L3300.0960, L3100.5310 #### [facility] Laboratory [address] [place], [address] Chloride [Moles/Vol] 103 mmol/L Normal 98-107 [facility] Comment on above: Performed By: #### L 503.0105, L501.9520, L501.9910, L501.9985, L400.0001, L100.0100, L500.4100, L500.4050, L3300.0960, L3100.5310 #### [facility] Laboratory [address] [place], [address] CO2 [Moles/Vol] 31.0 mmol/L Normal 21.0-32.0 [facility] Comment on above: Performed By: #### L 503.0105, L501.9520, L501.9910, L501.9985, L400.0001, L100.0100, L500.4100, L500.4050, L3300.0960, L3100.5310 #### [facility] Laboratory [address] [place], [place], [phone] (253) Creatinine [Mass/Vol] 1.23 mg/dL Normal 0.70-1.30 [facility] Comment on above: Result Comment: The validity of the calculated GFR GFRAA in patients over 70 years has not been determined. Clinical correlation is essential. Performed By: #### L 503.0105, L501.9520, L501.9910, L501.9985, L400.0001, L100.0100, L500.4100, L500.4050, L3300.0960, L3100.5310 #### [facility] Laboratory [address] [place], [address] (083) EST GFR - AA 78 mL/min Normal >60 [facility] Comment on above: Result Comment: Afri can Grenadian GFR Calc Performed By: #### L 503.0105, L501.9520, L501.9910, L501.9985, L400.0001, L100.0100, L500.4100, L500.4050, L3300.0960, L3100.5310 #### [facility] Laboratory [address] [place], [place], [phone] (414) GAP 5 Normal 5-15 [facility] Comment on above: Performed By: #### L 503.0105, L501.9520, L501.9910, L501.9985, L400.0001, L100.0100, L500.4100, L500.4050, L3300.0960, L3100.5310 #### [facility] Laboratory [address] [place], [address] (121) GFR/1.73 sq M.predicted among non-blacks MDRD (S/P/Bld) [Vol rate/Area] 65 mL/min/{1.73_m2} Normal >60 [facility] Comment on above: Result Comment: Non- GFR Calc Performed By: #### L 503.0105, L501.9520, L501.9910, L501.9985, L400.0001, L100.0100, L500.4100, L500.4050, L3300.0960, L3100.5310 #### [facility] Laboratory [address] [place], [address] Globulin (S) [Mass/Vol] 3.9 g/dL Normal 2.2-4.2 [facility] Comment on above: Performed By: #### L 503.0105, L501.9520, L501.9910, L501.9985, L400.0001, L100.0100, L500.4100, L500.4050, L3300.0960, L3100.5310 #### [facility] Laboratory [address] [place], [place], [phone] (910) Glucose [Mass/Vol] 97 mg/dL Normal 74-106 [facility] Comment on above: Performed By: #### L 503.0105, L501.9520, L501.9910, L501.9985, L400.0001, L100.0100, L500.4100, L500.4050, L3300.0960, L3100.5310 #### [facility] Laboratory [address] [place], [address] Potassium [Moles/Vol] 4.4 mmol/L Normal 3.5-5.1 [facility] Comment on above: Performed By: #### L 503.0105, L501.9520, L501.9910, L501.9985, L400.0001, L100.0100, L500.4100, L500.4050, L3300.0960, L3100.5310 #### [facility] Laboratory [address] [place], [address] Sodium [Moles/Vol] 139 mmol/L Normal 136-145 [facility] Comment on above: Performed By: #### L 503.0105, L501.9520, L501.9910, L501.9985, L400.0001, L100.0100, L500.4100, L500.4050, L3300.0960, L3100.5310 #### [facility] Laboratory [address] [place], [address] T PROT 7.9 g/dL Normal 6.4-8.2 [facility] Comment on above: Performed By: #### L 503.0105, L501.9520, L501.9910, L501.9985, L400.0001, L100.0100, L500.4100, L500.4050, L3300.0960, L3100.5310 #### [facility] Laboratory [address] [place], [address] Urea nitrogen [Mass/Vol] 15 mg/dL Normal 7-18 [facility] Comment on above: Performed By: #### L 503.0105, L501.9520, L501.9910, L501.9985, L400.0001, L100.0100, L500.4100, L500.4050, L3300.0960, L3100.5310 #### [facility] Laboratory [address] [place], [address] Eosinophil percentageOrdered By: Jess Rosas on 02-24-2024 Eosinophils/100 WBC (Bld) 5.6 % High 0-5 [facility] Epithelial cells.squamous LM Ql (Urine sed)Ordered By: Jess Rosas on 02-24-2024 Epithelial cells.squamous LM.HPF (Urine sed) [#/Area] 0 /[HPF] 0-5 [facility] Erythrocyte distribution wid th ratioOrdered By: Jess Rosas on 02-24-2024 Erythrocyte distribution width (RBC) [Ratio] 14.3 % 11.6-14.6 [facility] Erythrocyte distribution wid th standard deviationOrdered By: Jess Rosas on 02-24-2024 Erythrocyte distribution width (RBC) [Entitic vol] 41.4 fL 35.1-43.9 [facility] Estimated glomerular filtrat ion rate (GFR) AmericanOrdered By: Jess Rosas on 02-24-2024 Estimated GFR (MDRD) Amer 78 mL/min >60 [facility] Comment on above: GFR Calc Glomerular filtration rate ( GFR) estimationOrdered By: Jess Rosas on 02-24-2024 Estimated GFR (MDRD) Non-Af Amer 65 mL/min >60 [facility] Comment on above: Non- GFR Calc Glucose Ql (U)Ordered By: Peter Rosas on 02-24-2024 Urine Glucose (UA) Normal mg/dl Normal [facility] Glucose measurementOrdered B y: Jess Rosas on 02-24-2024 Glucose [Mass/Vol] 97 mg/dL 74-106 [facility] Hematocrit Auto (Bld) [Volum e fraction]Ordered By: Jess Rosas on 02-24-2024 Hematocrit (Bld) [Volume fraction] 45.8 % 40-54 [facility] Hemoglobin A1con 02-24-2024 HbA1c (Bld) [Mass fraction] 6.0 % High 3.8-5.6 [facility] Comment on above: Result Comment: Norm al < 5.7 % Prediabetic 5.7 - 6.4 % Diabetic >or= 6.5 % Please note range changes. Performed By: #### L 503.0105, L501.9520, L501.9910, L501.9985, L400.0001, L100.0100, L500.4100, L500.4050, L3300.0960, L3100.5310 #### [facility] Laboratory [facility] [address] [place], [place], [phone] Hemoglobin A1c percentageOrd ered By: Jess Rosas on 02-24-2024 HbA1c (Bld) [Mass fraction] 6.0 % High 3.8-5.6 [facility] Comment on above: Normal < 5.7 % Predi abetic 5.7 - 6.4 % Diabetic >or= 6.5 % Please note range changes. Hemoglobin measurementOrdere d By: Jess Rosas on 02-24-2024 Hemoglobin (Bld) [Mass/Vol] 15.9 g/dL 13.0-16.5 [facility] High density lipoprotein (HD L) measurementOrdered By: Jess Rosas on 02-24-2024 Cholesterol in HDL [Mass/Vol] 38 mg/dL Low >40 [facility] Comment on above: The drugs N-Acetylcy steine and Metamizole may falsely depress this assay. Reference Range HDL <40 mg/dL Low HDL Cholesterol HDL >or= 60 mg/dL High HDL Cholesterol Hyaline casts LM.LPF (Urine sed) [#/Area]Ordered By: Jess Rosas on 02-24-2024 Hyaline casts LM Ql (Urine sed) 10-25 SEEN /lpf 0-5 [facility] Immature granulocytes/100 WB C Auto (Bld)Ordered By: Jess Rosas on 02-24-2024 Immature granulocytes/100 WBC (Bld) 0.400 % 0.0-0.9 [facility] Comment on above: IG% - Immature Granu locytes (promyelocytes, myelocytes and metamyelocytes) > 1% indicates that a LEFT SHIFT is Present. Ketones Test strip Ql (U)Ord ered By: Jess Rosas on 02-24-2024 Ketones Ql (U) Negative Negative [facility] Laboratory - Chemistry and C hemistry - challengeOrdered By: Jess Rosas on 02-24-2024 AST [Catalytic activity/Vol] 25 U/L 15-37 [facility] Lipid Profileon 02-24-2024 Cholesterol [Mass/Vol] 233 mg/dL High 200 [facility] Comment on above: Result Comment: <200 mg/dL Desirable 200-240 mg/dL Borderline >240 mg/dL High Risk Performed By: #### L 503.0105, L501.9520, L501.9910, L501.9985, L400.0001, L100.0100, L500.4100, L500.4050, L3300.0960, L3100.5310 #### [facility] Laboratory [address] [place], [address] Cholesterol in HDL [Mass/Vol] 38 mg/dL Low [facility] Comment on above: Result Comment: The drugs N-Acetylcysteine and Metamizole may falsely depress this assay. Reference Range HDL <40 mg/dL Low HDL Cholesterol HDL >or= 60 mg/dL High HDL Cholesterol Performed By: #### L 503.0105, L501.9520, L501.9910, L501.9985, L400.0001, L100.0100, L500.4100, L500.4050, L3300.0960, L3100.5310 #### [facility] Laboratory [address] [place], [address] Cholesterol in LDL [Mass/Vol] 120 mg/dL Normal 0-130 [facility] Comment on above: Performed By: #### L 503.0105, L501.9520, L501.9910, L501.9985, L400.0001, L100.0100, L500.4100, L500.4050, L3300.0960, L3100.5310 #### [facility] Laboratory [address] [place], [address] Cholesterol in VLDL [Mass/Vol] 75 mg/dL High 5-40 [facility] Comment on above: Performed By: #### L 503.0105, L501.9520, L501.9910, L501.9985, L400.0001, L100.0100, L500.4100, L500.4050, L3300.0960, L3100.5310 #### [facility] Laboratory [address] [place], [address] Triglyceride [Mass/Vol] 376 mg/dL High [facility] Comment on above: Result Comment: The drugs N-Acetylcysteine and Metamizole may falsely depress this assay. Serum Triglycerides Reference Interval Normal <150 mg/dL Borderline high 150 - 199 mg/dL High 200 - 499 mg/dL Very High > or = 500 mg/dL Performed By: #### L 503.0105, L501.9520, L501.9910, L501.9985, L400.0001, L100.0100, L500.4100, L500.4050, L3300.0960, L3100.5310 #### [facility] Laboratory [place], [address] Low density lipoprotein (LDL ) cholesterol measurementOrdered By: Jess Rosas on 02-24-2024 Cholesterol in LDL [Mass/Vol] 120 mg/dL 0-130 [facility] Lymphocytes Auto (Unsp spec) [#/Vol]Ordered By: Jess Rosas on 02-24-2024 Lymphocytes (Bld) [#/Vol] 2.94 10*3/uL 0.83-4.5 1 [facility] Lymphocytes/100 WBC Auto (Un sp spec)Ordered By: Jess Rosas on 02-24-2024 Lymphocytes/100 WBC (Bld) 38.4 % 19-41 [facility] MCV (mean corpuscular volume ) determinationOrdered By: Jess Rosas on 02-24-2024 MCV (RBC) [Entitic vol] 81.3 fL 80-94 [facility] Mean corpuscular hemoglobin (MCH) determinationOrdered By: Jess Rosas on 02-24-2024 MCH (RBC) [Entitic mass] 28.2 pg 27.0-32.0 [facility] Mean corpuscular hemoglobin concentration (MCHC) determinationOrdered By: Jess Rosas on 02-24-2024 MCHC (RBC) [Mass/Vol] 34.7 g/dL 32-36 [facility] Mean platelet volume determi nationOrdered By: Jess Rosas on 02-24-2024 Platelet mean volume (Bld) [Entitic vol] 9.5 fL 6.2-12.0 [facility] Microscopic analysis of urin e for red blood cells (RBC)Ordered By: Jess Rosas on 02-24-2024 Urine RBC 0-5 SEEN /hpf 0-5 [facility] Monocyte percentageOrdered B y: Jess Rosas on 02-24-2024 Monocytes/100 WBC (Bld) 6.9 % 0-10 [facility] Mucus LM Ql (Urine sed)Order ed By: Jess Rosas on 02-24-2024 Mucus Ql (Urine sed) 1+ /hpf [facility] Neutrophil percentageOrdered By: Jess Rosas on 02-24-2024 Neutrophils/100 WBC (Bld) 47.3 % 47-70 [facility] Nitrite Test strip Ql (U)Ord ered By: Jess Rosas on 02-24-2024 Nitrite Ql (U) Negative Negative [facility] Nucleated red blood cell per centageOrdered By: Jess Rosas on 02-24-2024 Nucleated RBC/100 WBC (Bld) [Ratio] 0 % 0-5 [facility] PSA,Total - Annual Screenon 02-24-2024 PSA,TOT SCREEN 3.23 ng/mL Normal 0.00-4.00 [facility] Comment on above: Result Comment: This test was performed using the TPSA assay method for the [employer] chemistry system. Values obtained with different assay methods cannot be used interchangably. When changing PSA assays in the course of monitoring a patient, additional sequential testing should be carried out to confirm baseline values. Performed By: #### L 503.0105, L501.9520, L501.9910, L501.9985, L400.0001, L100.0100, L500.4100, L500.4050, L3300.0960, L3100.5310 #### [facility] Laboratory [address] [place], [place], [phone] Platelet countOrdered By: Peter Rosas on 02-24-2024 Platelets (Bld) [#/Vol] 292 10*3/uL 150-450 [facility] Potassium measurementOrdered By: Jess Rsoas on 02-24-2024 Potassium [Moles/Vol] 4.4 mmol/L 3.5-5.1 [facility] Protein Test strip Ql (U)Ord ered By: Jess Rosas on 02-24-2024 Protein Ql (U) 15 mg/dl High Negative [facility] RBC Auto (Bld) [#/Vol]Ordere d By: Jess Rosas on 02-24-2024 RBC (Bld) [#/Vol] 5.63 10*6/uL 4.6-6.2 [facility] Screening prostate specific antigen (PSA) measurementOrdered By: Jess Rosas on 02-24-2024 Prostate Specific Antigen Screen 3.23 ng/mL 0.00-4.00 [facility] Comment on above: This test was perfor med using the TPSA assay method for the[facility]. Values obtained with differentassay methods cannot be used interchangably.When changing PSA assays in the course of monitoring apatient, additional sequential testing should be carriedout to confirm baseline values. Serum anion gap measurementO rdered By: Jess Rosas on 02-24-2024 Anion gap [Moles/Vol] 5 mmol/L 5-15 [facility] Serum globulin measurementOr dered By: Jess Rosas on 02-24-2024 Globulin (S) [Mass/Vol] 3.9 g/dL 2.2-4.2 [facility] Serum or plasma alanine hollins otransferase (ALT) measurementOrdered By: Jess Rosas on 02-24-2024 ALT [Catalytic activity/Vol] 44 U/L 16-61 [facility] Serum or plasma albumin alexandrea urement (mass/volume)Ordered By: Jess Rosas on 02-24-2024 Albumin [Mass/Vol] 4.0 g/dL 3.2-5.0 [facility] Serum or plasma alkaline emmanuel sphatase measurementOrdered By: Jess Rosas on 02-24-2024 ALP [Catalytic activity/Vol] 76 U/L 45-117 [facility] Serum or plasma calcium alexandrea urement (mass/volume)Ordered By: Jess Rosas on 02-24-2024 Calcium [Mass/Vol] 9.4 mg/dL 8.5-10.1 [facility] Serum or plasma cholesterol measurement (mass/volume)Ordered By: Jess Rosas on 02-24-2024 Cholesterol [Mass/Vol] 233 mg/dL High <200 [facility] Comment on above: <200 mg/dL Desirable 200-240 mg/dL Borderline >240 mg/dL High Risk Serum or plasma creatinine m easurement (mass/volume)Ordered By: Jess Rosas on 02-24-2024 Creatinine [Mass/Vol] 1.23 mg/dL 0.70-1.30 [facility] Comment on above: The validity of the calculated GFR & GFRAA in patients over 70 years has not been determined. Clinical correlation is essential. Serum or plasma urea nitroge n measurement (mass/volume)Ordered By: Jess Rosas on 02-24-2024 Urea nitrogen [Mass/Vol] 15 mg/dL 7-18 [facility] Sodium levelOrdered By: Jess Rosas on 02-24-2024 Sodium [Moles/Vol] 139 mmol/L 136-145 [facility] TSH QnOrdered By: Jess Rosas on 02-24-2024 Thyroid Stimulating Hormone (TSH) 1.070 uIU/mL 0.358-3.740 [facility] Testosterone Free [Mass/Vol] Ordered By: Jess Rosas on 02-24-2024 Free Testosterone 8.11 ng/dL 5.00-21.00 [facility] Testosterone Free/Testostero ne.total [Mass fraction]Ordered By: Jess Rosas on 02-24-2024 Percent Free Testosterone 2.73 % 1.50-4.20 [facility] Comment on above: Performed at: [address] [id number] Director: Loy Lopez PhD, Phone: [phone] at: - [facility] [id number] Director: Sylvia Chapman MD, Phone: [phone] Testosterone, totalOrdered B y: Jess Deisy on 02-24-2024 Testosterone [Mass/Vol] 297 ng/dL 264-916 [facility] Comment on above: Adult male reference interval is based on a population ofhealthy nonobese males (BMI <30) between 19 and 39 yearsold. jason [email or web address].al. JCEM 2017,102;5364-6056. PMID:[id number]. Thyroid Stim Hormone (TSH)on 02-24-2024 TSH 1.070 uIU/mL Normal 0.358-3.740 [facility] Comment on above: Performed By: #### L 503.0105, L501.9520, L501.9910, L501.9985, L400.0001, L100.0100, L500.4100, L500.4050, L3300.0960, L3100.5310 #### [facility] Laboratory [address] [place], [place], [address] Total proteinOrdered By: Mariah kline Rosas on 02-24-2024 Protein [Mass/Vol] 7.9 g/dL 6.4-8.2 [facility] Triglycerides measurementOrd ered By: Jess Rosas on 02-24-2024 Triglyceride [Mass/Vol] 376 mg/dL High <199 [facility] Comment on above: The drugs N-Acetylcy steine and Metamizole may falsely depress this assay.Serum Triglycerides Reference Interval Normal <150 mg/dL Borderline high 150 - 199 mg/dL High 200 - 499 mg/dL Very High > or = 500 mg/dL Urinalysis, Completeon 02-23 CAST,HYALINE 10-25 SEEN Normal 0-5 [facility] Comment on above: Order Comment: CLEAN CATCH Performed By: #### L 503.0105, L501.9520, L501.9910, L501.9985, L400.0001, L100.0100, L500.4100, L500.4050, L3300.0960, L3100.5310 #### [facility] Laboratory [address] [place], [place], [phone] Mucus Ql (Urine sed) 1+ /hpf Normal [facility] Comment on above: Order Comment: CLEAN CATCH Performed By: #### L 503.0105, L501.9520, L501.9910, L501.9985, L400.0001, L100.0100, L500.4100, L500.4050, L3300.0960, L3100.5310 #### [facility] Laboratory [address] [place], [address] RBC 0-5 SEEN Normal 0-5 [facility] Comment on above: Order Comment: CLEAN CATCH Performed By: #### L 503.0105, L501.9520, L501.9910, L501.9985, L400.0001, L100.0100, L500.4100, L500.4050, L3300.0960, L3100.5310 #### [facility] Laboratory [address] [place], [address] WBC 0-5 SEEN Normal 0-5 [facility] Comment on above: Order Comment: CLEAN CATCH Performed By: #### L 503.0105, L501.9520, L501.9910, L501.9985, L400.0001, L100.0100, L500.4100, L500.4050, L3300.0960, L3100.5310 #### [facility] Laboratory [address] [place], [address] BACTERIA 0 SEEN Normal None Seen [facility] Comment on above: Order Comment: CLEAN CATCH Performed By: #### L 503.0105, L501.9520, L501.9910, L501.9985, L400.0001, L100.0100, L500.4100, L500.4050, L3300.0960, L3100.5310 #### [facility] Laboratory [address] [place], [address] EPI,SQUAMOUS 0 SEEN Normal 0-5 [facility] Comment on above: Order Comment: CLEAN CATCH Performed By: #### L 503.0105, L501.9520, L501.9910, L501.9985, L400.0001, L100.0100, L500.4100, L500.4050, L3300.0960, L3100.5310 #### [facility] Laboratory [address] [place], [place], [phone] Urine blood detectionOrdered By: Jess Rosas on 02-24-2024 Urine Occult Blood 10 /ul High Negative [facility] Urine clarityOrdered By: Mariah Rosas on 02-24-2024 Clarity (U) Clear Clear [facility] Urine color determinationOrd ered By: Jess Rosas on 02-24-2024 Color (U) Yellow Yellow [facility] Urine leukocyte esterase det ection by dipstickOrdered By: Jess Rosas on 02-24-2024 Leukocyte esterase Test strip Ql (U) 100 /ul High Negative [facility] Urine pHOrdered By: Jess Valdovinos er on 02-24-2024 pH (U) 6.0 [pH] 5.0 - 8.0 [facility] Urine sediment bacteria coun t by microscopy (number/high power field)Ordered By: Jess Rossa on 02-24-2024 Bacteria LM.HPF (Urine sed) [#/Area] 0 /[HPF] None Seen [facility] Urine specific gravity measu rementOrdered By: Jess Rosas on 02-24-2024 Specific gravity (U) [Rel density] 1.015 1.002-1.030 [facility] Urobilinogen Ql (U)Ordered B y: Jess Rosas on 02-24-2024 Urobilinogen (U) [Mass/Vol] 1 mg/dL High Normal [facility] Very low density lipoprotein (VLDL) cholesterol measurementOrdered By: Jess Rosas on 02-24-2024 VLDL Cholesterol 75 mg/dL High 5-40 [facility] Vitamin B12on 02-24-2024 Cobalamin (Vitamin B12) [Mass/Vol] 351 pg/mL Normal -911 [facility] Comment on above: Performed By: #### L 503.0105, L501.9520, L501.9910, L501.9985, L400.0001, L100.0100, L500.4100, L500.4050, L3300.0960, L3100.5310 #### [facility] Laboratory [address] [place] [address], [id number] Vitamin B12 measurementOrder ed By: Jess Rosas on 02-24-2024 Cobalamin (Vitamin B12) [Mass/Vol] 351 pg/mL 211-911 [facility] White blood cell (WBC) count Ordered By: Jess Rosas on 02-24-2024 WBC (Bld) [#/Vol] 7.7 10*3/uL 4.4-11.0 [facility] White blood cell countOrdere d By: Jess Rosas on 02-24-2024 Urine WBC 0-5 SEEN /hpf 0-5 [facility] CNCOon 01-07-2024 CNCO Letter Text Normal [facility] CNPNon 01-07-2024 CNPN Telephone ([facility]) HELDERHAYDEN ([id number]) 1965 Date Time Provider Department 01/07/24 FELICITAS CHAVEZ [facility] During your visit today, we recorded the following information about you: Celia Smallwood LPN 01/07/2024 7:13 AM Signed Last seen 02/23/2023. Please call patient with annual appointment. Thank you! KIRAN Alonso September R 01/07/2024 7:28 AM Signed Scheduled patient with Dr. Chavez for 06-06-24 at 3 pm in [place]. [employer] message and letter to home address. Thanks [...] Status:Closed by CELIA SMALLWOOD on 01/07/24 Normal [facility] XR CERVICAL 4V AP/LAT/OBLon 11-09-2023 XR [...] Cervical spine degenerative changes as described above. Overlock Operator: [facility] Transcribe Date/Time: Nov 11 2023 2:40P Dictated by : JEROD SEGOVIA MD This examination was interpreted and the report reviewed and electronically signed by: JEROD SEGOVIA MD on Nov 11 2023 2:45PM EST [id number] N Normal [facility] XR FOOT 3V AP/LAT/OBL BILon 11-09-2023 XR [...] inflammatory arthropathy in either hand or foot. Overlock Operator: [facility] Transcribe Date/Time: Nov 13 2023 4:18P Dictated by : MERCEDES GARIBAY MD This examination was interpreted and the report reviewed and electronically signed by: MERCEDES GARIBAY MD on Nov 13 2023 4:19PM EST [id number] N Normal [facility] XR HAND 3V PA/LAT/OBL BILon 11-09-2023 XR [...] inflammatory arthropathy in either hand or foot. Overlock Operator: [facility] Transcribe Date/Time: Nov 13 2023 4:18P Dictated by : MERCEDES GARIBAY MD This examination was interpreted and the report reviewed and electronically signed by: MERCEDES GARIBAY MD on Nov 13 2023 4:19PM EST [id number] N Normal [facility] XR LUMBAR 3V AP/LAT/L5-S1on 11-09-2023 XR LUMBAR [...] spine are presented. FINDINGS: There are five iyn-yba-ynaspek lumbar vertebrae. No fracture or subluxations are noted. The disc spaces are well preserved. There is mild osteophyte formation. Others: There is a 3 mm radiopaque opacity overlying the left kidney. IMPRESSION: Lumbar spine mild degenerative changes. Overlock Operator: [facility] Transcribe Date/Time: Nov 11 2023 12:47P Dictated by : JEROD SEGOVIA MD This examination was interpreted and the report reviewed and electronically signed by: JEROD SEGOVIA MD on Nov 11 2023 12:49PM EST [id number] N Normal [facility] XR SI JTS 2V AP PELV/FERGUSO Non [...] or osseous lesion. IMPRESSION: Unremarkable SI joints Overlock Operator: [facility] Transcribe Date/Time: Nov 13 2023 8:03A Dictated by : ABHAY CHIN MD This examination was interpreted and the report reviewed and electronically signed by: ABHAY CHIN MD on Nov 13 2023 8:05AM EST [id number] N Normal [facility] XR THORACIC 2V AP/LATon 10-23 XR THORACIC [...] and CABG. IMPRESSION: Thoracic spine degenerative changes. Overlock Operator: [facility] Transcribe Date/Time: Nov 11 2023 4:24P Dictated by : JEROD SEGOVIA MD This examination was interpreted and the report reviewed and electronically signed by: JEROD SEGOVIA MD on Nov 11 2023 4:26PM EST [id number] N Normal [facility] CBC W Auto Differential pane l (Bld)on 11-04-2023 Basophils (Bld) [#/Vol] 0.07 10*3/uL [facility] Basophils/100 WBC (Bld) 1.0 % [facility] Differential cell count method Nom (Bld) Auto [facility] Eosinophils (Bld) [#/Vol] 0.17 10*3/uL [facility] Eosinophils/100 WBC (Bld) 2.4 % [facility] Erythrocyte distribution width (RBC) [Ratio] 13.9 % 11.5 - 15.0 % [facility] Hematocrit (Bld) [Volume fraction] 46.3 % 39.0 - 51.0 % [facility] Hemoglobin (Bld) [Mass/Vol] 16.0 g/dL 13.0 - 17.0 g/dL [facility] Immature granulocytes (Bld) [#/Vol] [facility] Immature granulocytes/100 WBC (Bld) 0.3 % [facility] Lymphocytes (Bld) [#/Vol] 3.14 10*3/uL [facility] Lymphocytes/100 WBC (Bld) 45.1 % [facility] MCH (RBC) [Entitic mass] 28.2 pg 26. 0 - 34.0 pg [facility] MCHC (RBC) [Mass/Vol] 34.6 g/dL 30.5 - 36.0 g/dL [facility] MCV (RBC) [Entitic vol] 81.7 fL 80.0 - 100.0 fL [facility] Monocytes (Bld) [#/Vol] 0.41 10*3/uL [facility] Monocytes/100 WBC (Bld) 5.9 % [facility] Neutrophils (Bld) [#/Vol] 3.15 10*3/uL [facility] Neutrophils/100 WBC (Bld) 45.3 % [facility] Nucleated RBC (Bld) [#/Vol] NINF [facility] Nucleated RBC/100 WBC (Bld) [Ratio] 0.0 % /100 WBC [facility] Platelet mean volume (Bld) [Entitic vol] 9.7 fL 9.0 - 12.7 fL [facility] Platelets (Bld) [#/Vol] 269 10*3/uL [facility] RBC (Bld) [#/Vol] 5.67 10*6/uL 4.20 - 6.0 0 m/uL [facility] WBC (Bld) [#/Vol] 6.96 10*3/uL [facility] Basophils (Bld) [#/Vol] 0.07 10*3/uL Normal <0.11 [facility] Comment on above: Order Comment: Speci men Type: BLOOD SPECIMEN Ordering Facility: [facility] Address: [address] [place] [address] Performed By: #### 5 7021-8, 4536-7 #### [facility] CLIA [id number] [address] [place] [address] [place] Basophils/100 WBC (Bld) 1.0 % Normal [facility] Comment on above: Order Comment: Speci men Type: BLOOD SPECIMEN Ordering Facility: [facility] Address: [address] [place] [address] Performed By: #### 5 7021-8, 4536-7 #### [facility] CLIA [id number] [address] [place] [address] [place] Differential cell count method Nom (Bld) Auto Normal [facility] Comment on above: Order Comment: Speci men Type: BLOOD SPECIMEN Ordering Facility: [facility] Address: [address] [place] [address] Performed By: #### 5 7021-8, 4536-7 #### [facility] CLIA [id number] [address] [place] [address] [place] Eosinophils (Bld) [#/Vol] 0.17 10*3/uL Normal <0.46 [facility] Comment on above: Order Comment: Speci men Type: BLOOD SPECIMEN Ordering Facility: [facility] Address: [address] [place] [address] Performed By: #### 5 7021-8, 4536-7 #### [facility] CLIA [id number] [address] [place] [address] [place] Eosinophils/100 WBC (Bld) 2.4 % Normal [facility] Comment on above: Order Comment: Speci men Type: BLOOD SPECIMEN Ordering Facility: [facility] Address: [address] [place] [address] Performed By: #### 5 7021-8, 4536-7 #### [facility] CLIA [id number] [address] [place] [address] [place] Erythrocyte distribution width (RBC) [Ratio] 13.9 % Normal 11.5-15.0 [facility] Comment on above: Order Comment: Speci men Type: BLOOD SPECIMEN Ordering Facility: [facility] Address: [address] [place] [address] Performed By: #### 5 7021-8, 4536-7 #### [facility] CLIA [id number] [address] [place] [address] [place] Hematocrit (Bld) [Volume fraction] 46.3 % Normal 39.0-51.0 [facility] Comment on above: Order Comment: Speci men Type: BLOOD SPECIMEN Ordering Facility: [facility] Address: [address] [place] [address] Performed By: #### 5 7021-8, 4537-7 #### [facility] CLIA [id number] [address] [place] [address] [place] Hemoglobin (Bld) [Mass/Vol] 16.0 g/dL Normal 13.0-17.0 [facility] Comment on above: Order Comment: Speci men Type: BLOOD SPECIMEN Ordering Facility: [facility] Address: [address] [place] [address] Performed By: #### 5 7021-8, 4537-7 #### [facility] CLIA [id number] [address] [place] [address] [place] Immature granulocytes (Bld) [#/Vol] 10*3/uL Normal <0.10 [facility] Comment on above: Order Comment: Speci men Type: BLOOD SPECIMEN Ordering Facility: [facility] Address: [address] [place] [address] Performed By: #### 5 7021-8, 4537-7 #### [facility] CLIA [id number] [address] [place] [address] [place] Immature granulocytes/100 WBC (Bld) 0.3 % Normal [facility] Comment on above: Order Comment: Speci men Type: BLOOD SPECIMEN Ordering Facility: [facility] Address: [address] [place] [address] Performed By: #### 5 7021-8, 4537-7 #### [facility] CLIA [id number] [address] [place] [address] [place] Lymphocytes (Bld) [#/Vol] 3.14 10*3/uL Normal 1.00-4.0 0 [facility] Comment on above: Order Comment: Speci men Type: BLOOD SPECIMEN Ordering Facility: [facility] Address: [address] [place] [address] Performed By: #### 5 7021-8, 4537-7 #### [facility] CLIA [id number] [address] [place] [address] [place] Lymphocytes/100 WBC (Bld) 45.1 % Normal [facility] Comment on above: Order Comment: Speci men Type: BLOOD SPECIMEN Ordering Facility: [facility] Address: [address] [place] [address] Performed By: #### 5 7021-8, 4537-7 #### [facility] CLIA [id number] [address] [place] [address] [place] MCH (RBC) [Entitic mass] 28.2 pg Normal 26.0-34.0 [facility] Comment on above: Order Comment: Speci men Type: BLOOD SPECIMEN Ordering Facility: [facility] Address: [address] [place] [address] Performed By: #### 5 7021-8, 4537-7 #### [facility] CLIA [id number] [address] [place] [address] [place] MCHC (RBC) [Mass/Vol] 34.6 g/dL Normal 30.5-36.0 [facility] Comment on above: Order Comment: Speci men Type: BLOOD SPECIMEN Ordering Facility: [facility] Address: [address] [place] [address] Performed By: #### 5 7021-8, 4537-7 #### [facility] CLIA [id number] [address] [place] [address] [place] MCV (RBC) [Entitic vol] 81.7 fL Normal 80.0-100.0 [facility] Comment on above: Order Comment: Speci men Type: BLOOD SPECIMEN Ordering Facility: [facility] Address: [address] [place] [address] Performed By: #### 5 7021-8, 4537-7 #### [facility] CLIA [id number] [address] [place] [address] [place] Monocytes (Bld) [#/Vol] 0.41 10*3/uL Normal <0.87 [facility] Comment on above: Order Comment: Speci men Type: BLOOD SPECIMEN Ordering Facility: [facility] Address: [address] [place] [address] Performed By: #### 5 7021-8, 4537-7 #### [facility] CLIA [id number] [address] [place] [address] [place] Monocytes/100 WBC (Bld) 5.9 % Normal [facility] Comment on above: Order Comment: Speci men Type: BLOOD SPECIMEN Ordering Facility: [facility] Address: [address] [place] [address] Performed By: #### 5 7021-8, 4536-7 #### [facility] CLIA [id number] [address] [place] [address] [place] Neutrophils (Bld) [#/Vol] 3.15 10*3/uL Normal 1.45-7.5 0 [facility] Comment on above: Order Comment: Speci men Type: BLOOD SPECIMEN Ordering Facility: [facility] Address: [address] [place] [address] Performed By: #### 5 7021-8, 4536-7 #### [facility] CLIA [id number] [address] [place] [address] [place] Neutrophils/100 WBC (Bld) 45.3 % Normal [facility] Comment on above: Order Comment: Speci men Type: BLOOD SPECIMEN Ordering Facility: [facility] Address: [address] [place] [address] Performed By: #### 5 7021-8, 4536-7 #### [facility] CLIA [id number] [address] [place] [address] [place] Nucleated RBC (Bld) [#/Vol] 10*3/uL Normal <0.01 [facility] Comment on above: Order Comment: Speci men Type: BLOOD SPECIMEN Ordering Facility: [facility] Address: [address] [place] [address] Performed By: #### 5 7021-8, 4536-7 #### [facility] CLIA [id number] [address] [place] [address] [place] Nucleated RBC/100 WBC (Bld) [Ratio] 0.0 /100 WBC Normal [facility] Comment on above: Order Comment: Speci men Type: BLOOD SPECIMEN Ordering Facility: [facility] Address: [address] [place] [address] Performed By: #### 5 7021-8, 4537-7 #### [facility] CLIA [id number] [address] [place] [address] [place] Platelet mean volume (Bld) [Entitic vol] 9.7 fL Normal 9.0-12.7 [facility] Comment on above: Order Comment: Speci men Type: BLOOD SPECIMEN Ordering Facility: [facility] Address: [address] [place] [address] Performed By: #### 5 7021-8, 4537-7 #### [facility] CLIA [id number] [address] [place] [address] [place] Platelets (Bld) [#/Vol] 269 10*3/uL Normal 150-400 [facility] Comment on above: Order Comment: Speci men Type: BLOOD SPECIMEN Ordering Facility: [facility] Address: [address] [place] [address] Performed By: #### 5 7021-8, 4537-7 #### [facility] CLIA [id number] [address] [place] [address] [place] RBC (Bld) [#/Vol] 5.67 10*6/uL Normal 4.20-6.00 [facility] Comment on above: Order Comment: Speci men Type: BLOOD SPECIMEN Ordering Facility: [facility] Address: [address] [place] [address] Performed By: #### 5 7021-8, 4537-7 #### [facility] CLIA [id number] [address] [place] [address] [place] WBC (Bld) [#/Vol] 6.96 10*3/uL Normal 3.70-11.00 [facility] Comment on above: Order Comment: Speci men Type: BLOOD SPECIMEN Ordering Facility: [facility] Address: [address] [place] [address] Performed By: #### 5 7021-8, 4537-7 #### [facility] CLIA [id number] [address] [place] [address] [place] CNOVon 11-04-2023 CNOV Office Visit (RHEUMN ) HAYDEN PENDLETON ([id number]) 1965 M Date Time Provider Department 11/04/23 9:40 AM CIERA PALM RHEUMN During your visit today, we recorded the following information about you: Temperature Pulse Blood pressure Weight 97.4 degrees 71/minute 147/92 91.5 kg Ciera Palm MD 11/04/2023 2:23 PM Addendum [facility] Out[facility] Date of Service: 11/04/2023 Patient: Hayden Pendleton Medical Record: [id number] Primary Care Physician: Quang Hanson MD Referring Provider: Ramirez Thomas [address] [facility] [address] Last Rheumatology visit: None at [facility] Chief complaint: Joint Pain and Positive [...] 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 Normal [facility] CRP SerPl-ncon 11-04-2023 CRP [Mass/Vol] 0.6 mg/dL Normal <0.9 [facility] Comment on above: Order Comment: Speci men Type: BLOOD SPECIMEN Ordering Facility: [facility] Address: [address] [place] [address] Performed By: #### 2 4323-8, 1987-06, 2131-10 #### [facility] CLIA [id number] [address] [place] [address] [place] Centromere Ab IF Ql (S)on Centromere Ab Qn (S) 1.8 AI High <1.0 [facility] Comment on above: Order Comment: Speci men Type: BLOOD SPECIMEN Ordering Facility: [facility] Address: [address], [place] [address] Result Comment: Anti -centromere antibody is used as in aid in diagnosis of systemic sclerosis. Clinical correlation is required. Test Methodology: Multiplex flow immunoassay. Performed By: #### 5 7021-8, 4537-7 #### [facility] CLIA [id number] [address] [place] [address] [place] CENTROMERE AB QUAL Positive Abnormal Negative [facility] Comment on above: Order Comment: Speci men Type: BLOOD SPECIMEN Ordering Facility: [facility] Address: [address] [place] [address] Performed By: #### 5 7021-8, 4537-7 #### [facility] CLIA [id number] [address] [place] [address] [place] Chromatin Ab Qnon 11-04-2023 CHROMATIN AB QUAL Negative Normal Negative [facility] Comment on above: Order Comment: Speci men Type: BLOOD SPECIMEN Ordering Facility: [facility] Address: [address] [place] [address] Performed By: #### 4 7322-3, 65629-0, 28476-9, 08094-5, 07895-7, 32339-4, 39554-2, 88627-1 #### [facility] CLIA [id number] [address] [place] [address] [place] Chromatin Ab SerPl-aCncon Chromatin Ab Qn <0.2 Normal <1.0 [facility] Comment on above: Order Comment: Speci men Type: BLOOD SPECIMEN Ordering Facility: [facility] Address: [address] [place] [address] Result Comment: Test Methodology: Multiplex flow immunoassay. Performed By: #### 4 7322-3, 70930-9, 72550-5, 66138-6, 96127-0, 84564-0, 11628-7, 15032-9 #### [facility] CLIA [id number] [address] [place] [address] [place] Comprehensive metabolic 2000 panelon 11-04-2023 Albumin [Mass/Vol] 4.7 g/dL Normal 3.9-4.9 [facility] Comment on above: Order Comment: Speci men Type: BLOOD SPECIMEN Ordering Facility: [facility] Address: [address] [place] [address] Performed By: #### 2 4328, 2131-10 #### [facility] CLIA [id number] [address] [place] [address] [place] ALP [Catalytic activity/Vol] 78 U/L Normal 38-113 [facility] Comment on above: Order Comment: Speci men Type: BLOOD SPECIMEN Ordering Facility: [facility] Address: [address] [place] [address] Performed By: #### 2 4328, 2131-10 #### [facility] CLIA [id number] [address] [place] [address] [place] ALT [Catalytic activity/Vol] 29 U/L Normal 10-54 [facility] Comment on above: Order Comment: Speci men Type: BLOOD SPECIMEN Ordering Facility: [facility] Address: [address] [place] [address] Performed By: #### 2 4328, 2131-10 #### [facility] CLIA [id number] [address] [place] [address] [place] Anion gap [Moles/Vol] 12 mmol/L Normal 8-15 [facility] Comment on above: Order Comment: Speci men Type: BLOOD SPECIMEN Ordering Facility: [facility] Address: [address] [place] [address] Performed By: #### 2 4328, 2131-10 #### [facility] CLIA [id number] [address] [place], [place] [address] [place] AST [Catalytic activity/Vol] 28 U/L Normal 14-40 [facility] Comment on above: Order Comment: Speci men Type: BLOOD SPECIMEN Ordering Facility: [facility] Address: [address] [id number] Performed By: #### 2 4323-8, 2131-10 #### [facility] CLIA [id number] [address] [address] [place] Bilirubin [Mass/Vol] 0.3 mg/dL Normal 0.2-1.3 [facility] Comment on above: Order Comment: Speci men Type: BLOOD SPECIMEN Ordering Facility: [facility] Address: [address] [place], [place] [id number] Performed By: #### 2 4323-8, 2131-10 #### [facility] CLIA [id number] [address] [place] [address] [place] Calcium [Mass/Vol] 10.0 mg/dL Normal 8.5-10.2 [facility] Comment on above: Order Comment: Speci men Type: BLOOD SPECIMEN Ordering Facility: [facility] Address: [address] [place], [place] [id number] Performed By: #### 2 4323-8, 2131-10 #### [facility] CLIA [id number] [address] [place], [place] [address] [place] Chloride [Moles/Vol] 100 mmol/L Normal 98-107 [facility] Comment on above: Order Comment: Speci men Type: BLOOD SPECIMEN Ordering Facility: [facility] Address: [address] [place], [place] [id number] Performed By: #### 2 4323-8, 2131-10 #### [facility] CLIA [id number] [address] [place], [place] [address] [place] CO2 [Moles/Vol] 26 mmol/L Normal 22-30 [facility] Comment on above: Order Comment: Speci men Type: BLOOD SPECIMEN Ordering Facility: [facility] Address: [address] [place] [address] Performed By: #### 2 43238, 2131-10 #### [facility] CLIA [id number] [address] [place] [address] [place] Creatinine [Mass/Vol] 1.06 mg/dL Normal 0.73-1.22 [facility] Comment on above: Order Comment: Zeyad men Type: BLOOD SPECIMEN Ordering Facility: [facility] Address: [address] [place] [address] Performed By: #### 2 43238, 2131-10 #### [facility] CLIA [id number] [address] [place] [address] [place] Creatinine and Glomerular filtration rate.predicted panel (S/P/Bld) 82 mL/min/1.73m??? Normal >=60 [facility] Comment on above: Order Comment: Zeyad san Type: BLOOD SPECIMEN Ordering Facility: [facility] Address: [address] [place] [address] Result Comment: Cherelle mated Glomerular Filtration Rate [...] Performed By: #### 2 4323-8, 2131-10 #### [facility] CLIA [id number] [address] [place] [address] [place] Glucose [Mass/Vol] 109 mg/dL High 74-99 [facility] Comment on above: Order Comment: Zeyad san Type: BLOOD SPECIMEN Ordering Facility: [facility] Address: [address] [place] [address] Result Comment: The [place] [employer] (ADA) provides guidance for cutoff [...] Standards of Medical Care in Diabetes 2016, [place] [employer]. Diabetes Care. 2016.39(Suppl 1). Performed By: #### 2 4322-09, 2131-10 #### [facility] CLIA [id number] [address] [place] [address] [place] Potassium [Moles/Vol] 4.7 mmol/L Normal 3.7-5.1 [facility] [facility] Comment on above: Order Comment: Speci men Type: BLOOD SPECIMEN Ordering Facility: [facility] Address: [address] [place] [address] Performed By: #### 2 4322-09, 2131-10 #### [facility] CLIA [id number] [address] [place] [address] [place] Protein [Mass/Vol] 7.6 g/dL Normal 6.3-8.0 [facility] Comment on above: Order Comment: Speci men Type: BLOOD SPECIMEN Ordering Facility: [facility] Address: [address] [place], [place] [address] Performed By: #### 2 4322-09, 2131-10 #### [facility] CLIA [id number] [address] [place] [address] [place] Sodium [Moles/Vol] 138 mmol/L Normal 136-144 [facility] Comment on above: Order Comment: Speci men Type: BLOOD SPECIMEN Ordering Facility: [facility] Address: [address] [place], [place] [address] Performed By: #### 2 4322-09, 2131-10 #### [facility] CLIA [id number] [address] [place] [address] [place] Urea nitrogen [Mass/Vol] 14 mg/dL Normal 9-24 [facility] Comment on above: Order Comment: Speci men Type: BLOOD SPECIMEN Ordering Facility: [facility] Address: [address] [place] [address] Performed By: #### 2 4323-8, 1987-06, 2131-10 #### [facility] CLIA [id number] [address] [place] [address] [place] MOHINI Jo1 Ab Ser-aCncon 2023 Guerline-1 extractable nuclear Ab Qn (S) <0.2 Normal <1.0 [facility] Comment on above: Order Comment: Speci men Type: BLOOD SPECIMEN Ordering Facility: [facility] Address: [address] [place] [address] Performed By: #### 4 7322-3, 30445-2, 54629-2, 03117-0, 74214-2, 43516-2, 11735-7, 17199-2 #### [facility] CLIA [id number] [address] [place] [address] [place] MOHINI WORKER'S COMPENSATION CLAIMS EXAMINER Ab Ser-aCncon 2023 Ribonucleoprotein extractable nuclear Ab Qn (S) <0.2 Normal <1.0 [facility] Comment on above: Order Comment: Speci men Type: BLOOD SPECIMEN Ordering Facility: [facility] Address: [address] [place] [address] Performed By: #### 4 7322-3, 04454-3, 94690-1, 43242-3, 10476-5, 98814-9, 55829-7, 99689-2 #### [facility] CLIA [id number] [address] [place] [address] [place] Performed By: #### 5 7021-8, 4537-7 #### [facility] CLIA [id number] [address] [place] [address] [place] MOH[place] SM IgG Ser-aCncon 2023 Donis extractable nuclear IgG Qn (S) <0.2 Normal <1.0 [facility] Comment on above: Order Comment: Speci men Type: BLOOD SPECIMEN Ordering Facility: [facility] Address: [address] [place] [address] Performed By: #### 5 7021-8, 4537-7 #### [facility] CLIA [id number] [address] [place] [address] [place] M[place] SS-A Ab Ser-aCncon 11-03 Sjogrens syndrome-A extractable nuclear Ab Qn (S) <0.2 Normal <1.0 [facility] Comment on above: Order Comment: Speci men Type: BLOOD SPECIMEN Ordering Facility: [facility] Address: [address] [place] [address] Result Comment: Test Methodology: Multiplex flow immunoassay. Performed By: #### 4 7322-3, 00701-2, 98351-3, 70229-3, 97923-0, 59713-2, 34161-4, 88833-3 #### [facility] CLIA [id number] [address] [place] [address] [place] SS-B Ab Ser-aCncon 11-03 Sjogrens syndrome-B extractable nuclear Ab Qn (S) <0.2 Normal <1.0 [facility] Comment on above: Order Comment: Speci men Type: BLOOD SPECIMEN Ordering Facility: [facility] Address: [address] [place] [address] Result Comment: Anti -SSB (anti-La) antibody is used as an aid in diagnosis of a variety of systemic autoimmune diseases, especially for Sjogren's syndrome and systemic lupus erythematosus. Clinical correlation is required. Test Methodology: Multiplex flow immunoassay. Performed By: #### 5 7021-8, 4537-7 #### [facility] CLIA [id number] [address] [place] [address] [place] ESR Westergren method (Bld) [Velocity]on 11-04-2023 ESR (Bld) [Velocity] 15 mm/h [facility] Interpretation and review of laboratory results Normal [facility] ESR (Bld) [Velocity] 15 mm/h Normal 0-15 [facility] Comment on above: Order Comment: Zeyad san Type: BLOOD SPECIMEN Ordering Facility: [facility] Address: [address] [place] [address] Performed By: #### 5 7021-8, 4537-7 #### [facility] CLIA [id number] [address] [place] [address] [place] HbA1c (Bld)on 11-04-2023 Average glucose Estimated from glycated hemoglobin (Bld) [Mass/Vol] 126 mg/dL Normal [facility] Comment on above: Order Comment: Zeyad san Type: BLOOD SPECIMEN Ordering Facility: [facility] Address: [address] [place] [address] Result Comment: eAG: (Estimated average glucose) is a calculated value from HgbA1c and is collections representative of the average blood glucose level in the last 2-3 month period. Performed By: #### 2 4323-8, 1987-06, 2131-10 #### [facility] CLIA [id number] [address] [place] [address] [place] HbA1c (Bld) [Mass fraction] 6.0 % High 4.3-5.6 [facility] Comment on above: Order Comment: Zeyad san Type: BLOOD SPECIMEN Ordering Facility: [facility] Address: [address] [place] [address] Result Comment: Amer [place] Diabetes Association guidelines indicate that patients with HgbA1c in the range 5.7-6.4% are at increased risk for development of diabetes, and intervention by lifestyle modification may be beneficial. HgbA1c greater or equal to 6.5% is considered diagnostic of diabetes. Performed By: #### 2 4323-8, 1987-, 9 #### [facility] CLIA [id number] [address] [place] [address] [place] Guerline-1 extractable nuclear Ab Qn (S)on 11-04-2023 GUERLINE 1 ANTIBODY QUAL Negative Normal Negative [facility] Comment on above: Order Comment: Specchantel san Type: BLOOD SPECIMEN Ordering Facility: [facility] Address: [address] [place] [address] Result Comment: Anti -GUERLINE-1 antibody is used as an aid in diagnosis of polymyositis and dermatomyositis especially with pulmonary involvement. A negative result cannot rule out polymyositis or dermatomyositis. Clinical correlation is required. Test Methodology: Multiplex flow immunoassay. Performed By: #### 4 7322-3, 49304-7, 49194-2, 71419-4, 35121-5, 18854-0, 94321-5, 11336-2 #### [facility] CLIA [id number] [address] [place] [address] [place] Ribonucleoprotein extractabl e nuclear Ab Qn (S)on 11-04-2023 ANTI-WORKER'S COMPENSATION CLAIMS EXAMINER QUAL Negative Normal Negative [facility] Comment on above: Order Comment: Zeyad san Type: BLOOD SPECIMEN Ordering Facility: [facility] Address: [address] [place] [address] Performed By: #### 5 7021-8, 4537-7 #### [facility] CLIA [id number] [address] [place] [address] [place] RIBOSOMAL WORKER'S COMPENSATION CLAIMS EXAMINER QUAL Negative Normal Negative [facility] Comment on above: Order Comment: Zeyad san Type: BLOOD SPECIMEN Ordering Facility: [facility] Address: [address] [place] [address] Result Comment: Anti -Ribosomal RNA (Ribosomal P) antibody is used as an aid in diagnosis of systemic autoimmune diseases especially systemic lupus erythematosus and mixed connective tissue disease. Cross-reactivity with Anti-donis antibody is not uncommon. Clinical correlation is required. Test Methodology: Multiplex flow immunoassay. Performed By: #### 4 7322-3, 41991-6, 57581-9, 66960-9, 29076-5, 85602-1, 82820-1, 49567-8 #### [facility] CLIA [id number] [address] [place] [address] [place] SCL-70 extractable nuclear I gG IA Qn (S)on 11-04-2023 SCLERODERMA AB QUAL Negative Normal Negative [facility] Comment on above: Order Comment: Speci men Type: BLOOD SPECIMEN Ordering Facility: [facility] Address: [address] [place] [address] Performed By: #### 4 7322-3, 31329-2, 13722-4, 24725-8, 47681-4, 89955-9, 59990-5, 99277-8 #### [facility] CLIA [id number] [address] [place] [address] [place] SCLERODERMA IGG AB <0.2 Normal <1.0 [facility] Comment on above: Order Comment: Speci men Type: BLOOD SPECIMEN Ordering Facility: [facility] Address: [address] [place] [address] Result Comment: Scl- 70/Scleroderma antibody test is used as an aid in diagnosis of systemic sclerosis especially the diffuse cutaneous form. A negative result cannot rule out systemic sclerosis. The final interpretation should consider clinical picture and other test results such as anti-centromere antibody. Test Methodology: Multiplex flow immunoassay. Performed By: #### 4 7322-3, 15004-2, 71935-9, 40544-5, 80163-3, 39893-8, 71562-1, 74816-9 #### [facility] CLIA [id number] [address] [place] [address] [place] Sjogrens syndrome-A extracta ble nuclear Ab Qn (S)on 11-04-2023 SSA ANTIBODY QUAL Negative Normal Negative [facility] Comment on above: Order Comment: Speci men Type: BLOOD SPECIMEN Ordering Facility: [facility] Address: [address] [place] [address] Performed By: #### 4 7322-3, 83842-4, 15156-0, 16675-7, 19879-5, 57031-3, 87807-3, 80860-6 #### [facility] CLIA [id number] [address] [place] [address] [place] Sjogrens syndrome-B extracta ble nuclear Ab Qn (S)on 11-04-2023 SSB ANTIBODY QUAL Negative Normal Negative [facility] Comment on above: Order Comment: Speci men Type: BLOOD SPECIMEN Ordering Facility: [facility] Address: [address] [place] [address] Performed By: #### 5 7021-8, 7 #### [facility] CLIA [id number] [address] [place] [address] [place] Donis extractable nuclear Ig G Qn (S)on 11-04-2023 SM ANTIBODY QUAL Negative Normal Negative [facility] Comment on above: Order Comment: Speci men Type: BLOOD SPECIMEN Ordering Facility: [facility] Address: [address] [place] [address] Result Comment: Anti -Sm (Donis) antibody is used as an aid in diagnosis of systemic lupus erythematosus and its presence is associated with renal disease. A negative result cannot rule out systemic lupus erythematosus. Clinical correlation is required. Test Methodology: Multiplex flow immunoassay. Performed By: #### 5 7021-8, 7 #### [facility] CLIA [id number] [address] [place] [address] [place] Vit B12 SerPl-mCncon 024 Cobalamin (Vitamin B12) [Mass/Vol] 353 pg/mL Normal 232-1245 [facility] Comment on above: Order Comment: Speci men Type: BLOOD SPECIMEN Ordering Facility: [facility] Address: [address] [place] [address] Performed By: #### 2 4323-8, 1987-06, 2131-10 #### [facility] CLIA [id number] [address] [facility] [facility] [place] [address] [place] Nuclear Ab IA Ql (S)Ordered By: Cecy Mcdonald on 08-10-2023 CHANDANA Scr Qual Positive Abnormal Negative [facility] Comment on above: The qualitative anti nuclear antibody screen test performed using the following antigens: dsDNA, Chromatin, Ribosomal P, SS-A 60, SS-A 52, SS-B, Sm, SmRNP, WORKER'S COMPENSATION CLAIMS EXAMINER A, WORKER'S COMPENSATION CLAIMS EXAMINER 68, Scl-70, Guerline-1, and Centromere B. Methodology: Multiplex flow immunoassay. Interpretation and review of laboratory results Abnormal [facility] RHEUMATOID FACTORon 08-09-19 Rheumatoid factor Qn 14 [IU]/mL NINF [facility] Rheumatoid factor Qnon 08-08 Interpretation and review of laboratory results Normal [facility] Basophil percentageon 2023 Cholesterol [Mass/Vol] 221 mg/dL <200 [facility] Comment on above: <200 mg/dL Desirable 200-240 mg/dL Borderline >240 mg/dL High Risk Triglyceride [Mass/Vol] 313 mg/dL <199 [facility] Comment on above: The drugs N-Acetylcy steine and Metamizole may falsely depress this assay.Serum Triglycerides Reference Interval Normal <150 mg/dL Borderline high 150 - 199 mg/dL High 200 - 499 mg/dL Very High > or = 500 mg/dL Cholesterol in LDL Direct as say [Mass/Vol]on 03-06-2023 Cholesterol in LDL [Mass/Vol] 145 mg/dL 0-99 [facility] Comment on above: Performed at: [facility] [employer] [id number] Director: Loy Lopez PhD, Phone: [phone] Laboratory - Miscellaneous t estson 03-06-2023 Service comment (Unsp spec) [Interp] TNP [facility] Comment on above: Test not performed Serum or plasma cholesterol in HDL measurement (mass/volume)on 03-06-2023 Cholesterol in HDL [Mass/Vol] 33 mg/dL >40 [facility] Comment on above: The drugs N-Acetylcy steine and Metamizole may falsely depress this assay. Reference Range HDL <40 mg/dL Low HDL Cholesterol HDL >or= 60 mg/dL High HDL Cholesterol Serum or plasma cholesterol in VLDL measurement (mass/volume)on 03-06-2023 Cholesterol in VLDL [Mass/Vol] 63 mg/dL 5-40 [facility] Serum or plasma low density lipoprotein (LDL) cholesterol measurement (mass/volume)on 03-06-2023 Cholesterol in LDL [Mass/Vol] 125 mg/dL 0-130 [facility] Absolute lymphocyte countOrd ered By: Dr. Kapadia on 07-03-2022 Lymphocytes Auto (Unsp spec) [#/Vol] 2.94 10*3/uL 0.83-4.51 [facility] Basophil percentageOrdered B y: Dr. Kapadia on 07-03-2022 Basophils/100 WBC (Bld) 1.1 % 0-1 [facility] Chloride [Moles/Vol] 103 mmol/L 98-107 [facility] Eosinophils/100 WBC (Bld) 3.5 % 0-5 [facility] Glucose [Mass/Vol] 101 mg/dL 74-106 [facility] Comment on above: Fasting Glucose resu lt from 100 to 125 mg/dL suggests IMPAIRED HOMEOSTASIS per A.D.A. criteria. Neutrophils (Bld) [#/Vol] 5.1 10*3/uL 2.0-7.7 [facility] Neutrophils/100 WBC (Bld) 55.7 % 47-70 [facility] Potassium [Moles/Vol] 4.0 mmol/L 3.5-5.1 [facility] Sodium [Moles/Vol] 138 mmol/L 136-145 [facility] WBC (Bld) [#/Vol] 9.2 10*3/uL 4.4-11.0 [facility] Blood erythrocytes count (nu mber/volume)Ordered By: Dr. Kapadia on 07-03-2022 RBC (Bld) [#/Vol] 5.43 10*6/uL 4.6-6.2 [facility] Blood hemoglobin measurement (mass/volume)Ordered By: Dr. Kapadia on 07-03-2022 Hemoglobin (Bld) [Mass/Vol] 15.8 g/dL 13.0-16.5 [facility] Blood lymphocytes/100 leukoc ytesOrdered By: Dr. Kapadia on 07-03-2022 Lymphocytes/100 WBC (Bld) 32.1 % 19-41 [facility] Blood monocytes/100 leukocyt esOrdered By: Dr. Kapadia on 07-03-2022 Monocytes/100 WBC (Bld) 5.2 % 0-10 [facility] Blood platelet mean volumeOr dered By: Dr. Kapadia on 07-03-2022 Platelet mean volume (Bld) [Entitic vol] 9.1 fL 6.2-12.0 [facility] Determination of erythrocyte mean corpuscular volume (MCV)Ordered By: Dr. Kapadia on 07-03-2022 MCV (RBC) [Entitic vol] 84.3 fL 80-94 [facility] Hematocrit Auto (Bld) [Volum e fraction]Ordered By: Dr. Kapadia on 07-03-2022 Hematocrit (Bld) [Volume fraction] 45.8 % 40-54 [facility] Laboratory - Chemistry and C hemistry - challengeOrdered By: Dr. Kapadia on 07-03-2022 CO2 [Moles/Vol] 27.0 mmol/L 21.0-32.0 [facility] Urea nitrogen/Creatinine [Mass ratio] 19.6 mg/mg 10-20 [facility] Laboratory - Hematology and Cell countsOrdered By: Dr. Kapadia on 07-03-2022 Erythrocyte distribution width (RBC) [Entitic vol] 43.8 fL 35.1-43.9 [facility] Erythrocyte distribution width (RBC) [Ratio] 14.2 % 11.6-14.6 [facility] Immature granulocytes/100 WBC (Bld) 2.400 % 0.0-0.9 [facility] Comment on above: IG% - Immature Granu locytes (promyelocytes, myelocytes and metamyelocytes) > 1% indicates that a LEFT SHIFT is Present. MCH (RBC) [Entitic mass] 29.1 pg 27.0-32.0 [facility] Nucleated RBC/100 WBC (Bld) [Ratio] 0 % 0-5 [facility] MCHC Auto (RBC) [Mass/Vol]Or dered By: Dr. Kapadia on 07-03-2022 MCHC (RBC) [Mass/Vol] 34.5 g/dL 32-36 [facility] No Panel InformationOrdered By: Dr. Kapadia on 07-03-2022 Estimated Creatinine Clearance Calc 103.13 ml/min [facility] Estimated GFR (MDRD) Amer 98 mL/min >60 [facility] Comment on above: GFR Calc Estimated GFR (MDRD) Non-Af Amer 81 mL/min >60 [facility] Comment on above: Non- GFR Calc Troponin I High Sensitivity 6 pg/mL 3.0-78.0 [facility] Comment on above: Please Note: New Andrzej t Units and Gender Specific Reference Ranges. For more information see Policy Stat Procedure Husser High Sensitivity Troponin (TNIH) and attachments. Platelets bldOrdered By: Dr. Kapadia on 07-03-2022 Platelets (Bld) [#/Vol] 308 10*3/uL 150-450 [facility] Serum or plasma calcium alexandrea urement (mass/volume)Ordered By: Dr. Kapadia on 07-03-2022 Calcium [Mass/Vol] 9.6 mg/dL 8.5-10.1 [facility] Serum or plasma creatinine m easurement (mass/volume)Ordered By: Dr. Kapadia on 07-03-2022 Creatinine [Mass/Vol] 1.02 mg/dL 0.70-1.30 [facility] Comment on above: The validity of the calculated GFR & GFRAA in patients over 70 years has not been determined. Clinical correlation is essential. Serum or plasma urea nitroge n measurement (mass/volume)Ordered By: Dr. Kapadia on 07-03-2022 Urea nitrogen [Mass/Vol] 20 mg/dL 7-18 [facility] Thin prep Papanicolaou smear with manual screeningOrdered By: Dr. Kapadia on 07-03-2022 Thin prep Papanicolaou smear with manual screening 8 5-15 [facility] Absolute lymphocyte countOrd ered By: Jess Rosas on 05-15-2022 Lymphocytes Auto (Unsp spec) [#/Vol] 1.91 10*3/uL 0.83-4.51 [facility] Basophil percentageOrdered B y: Jess Rosas on 05-15-2022 Basophils/100 WBC (Bld) 1.2 % 0-1 [facility] Bilirubin [Mass/Vol] 0.40 mg/dL 0.20-1.00 [facility] Comment on above: For patients on eltr ombopag therapy, use of Dimension Husser TBIL is not recommended. Chloride [Moles/Vol] 106 mmol/L 98-107 [facility] Eosinophils/100 WBC (Bld) 3.3 % 0-5 [facility] Glucose [Mass/Vol] 109 mg/dL 74-106 [facility] Comment on above: Fasting Glucose resu lt from 100 to 125 mg/dL suggests IMPAIRED HOMEOSTASIS per A.D.A. criteria. Neutrophils (Bld) [#/Vol] 3.3 10*3/uL 2.0-7.7 [facility] Neutrophils/100 WBC (Bld) 57.0 % 47-70 [facility] Potassium [Moles/Vol] 4.2 mmol/L 3.5-5.1 [facility] Protein [Mass/Vol] 7.9 g/dL 6.4-8.2 [facility] Sodium [Moles/Vol] 139 mmol/L 136-145 [facility] Testosterone [Mass/Vol] 429 ng/dL 264-916 [facility] Comment on above: Adult male reference interval is based on a population ofhealthy nonobese males (BMI <30) between 19 and 39 yearsold. Devan et.al. JCEM 2017,102;[address]608-5441. PMID:[id number]. WBC (Bld) [#/Vol] 5.8 10*3/uL 4.4-11.0 [facility] Blood erythrocytes count (nu mber/volume)Ordered By: Jess Rosas on 05-15-2022 RBC (Bld) [#/Vol] 5.37 10*6/uL 4.6-6.2 [facility] Blood hemoglobin measurement (mass/volume)Ordered By: Jess Rosas on 05-15-2022 Hemoglobin (Bld) [Mass/Vol] 15.6 g/dL 13.0-16.5 [facility] Blood lymphocytes/100 leukoc ytesOrdered By: Jess Rosas on 05-15-2022 Lymphocytes/100 WBC (Bld) 33.1 % 19-41 [facility] Blood monocytes/100 leukocyt esOrdered By: Jess Rosas on 05-15-2022 Monocytes/100 WBC (Bld) 5.2 % 0-10 [facility] Blood platelet mean volumeOr dered By: Jess Rosas on 05-15-2022 Platelet mean volume (Bld) [Entitic vol] 9.7 fL 6.2-12.0 [facility] Determination of erythrocyte mean corpuscular volume (MCV)Ordered By: Jess Rosas on 05-15-2022 MCV (RBC) [Entitic vol] 84.5 fL 80-94 [facility] Erythrocyte sedimentation ra teOrdered By: Jess Rosas on 05-15-2022 ESR (Bld) [Velocity] 10 mm/h 0-20 [facility] Free testosterone percentage Ordered By: Jess Rosas on 05-15-2022 Testosterone Free/Testosterone.total [Mass fraction] 2.23 % 1.50-4.20 [facility] Comment on above: Performed at: [address] [id number] Director: Loy Lopez PhD, Phone: [phone] at: [facility] [employer] [id number] Director: Sylvia Chapman MD, Phone: [phone] Hematocrit Auto (Bld) [Volum e fraction]Ordered By: Jess Rosas on 05-15-2022 Hematocrit (Bld) [Volume fraction] 45.4 % 40-54 [facility] Laboratory - Chemistry and C hemistry - challengeOrdered By: Jess Rosas on 05-15-2022 ALP [Catalytic activity/Vol] 63 U/L 45-117 [facility] ALT [Catalytic activity/Vol] 24 U/L 16-61 [facility] CO2 [Moles/Vol] 28.0 mmol/L 21.0-32.0 [facility] Globulin (S) [Mass/Vol] 3.8 g/dL 2.2-4.2 [facility] Urea nitrogen/Creatinine [Mass ratio] 12.5 mg/mg 10-20 [facility] Laboratory - Hematology and Cell countsOrdered By: Jess Rosas on 05-15-2022 Erythrocyte distribution width (RBC) [Entitic vol] 42.8 fL 35.1-43.9 [facility] Erythrocyte distribution width (RBC) [Ratio] 13.9 % 11.6-14.6 [facility] Immature granulocytes/100 WBC (Bld) 0.200 % 0.0-0.9 [facility] Comment on above: IG% - Immature Granu locytes (promyelocytes, myelocytes and metamyelocytes) > 1% indicates that a LEFT SHIFT is Present. MCH (RBC) [Entitic mass] 29.1 pg 27.0-32.0 [facility] Nucleated RBC/100 WBC (Bld) [Ratio] 0 % 0-5 [facility] MCHC Auto (RBC) [Mass/Vol]Or dered By: Jess Rosas on 05-15-2022 MCHC (RBC) [Mass/Vol] 34.4 g/dL 32-36 [facility] No Panel InformationOrdered By: Jess Rosas on 05-15-2022 Estimated GFR (MDRD) Amer 95 mL/min >60 [facility] Comment on above: GFR Calc Estimated GFR (MDRD) Non-Af Amer 79 mL/min >60 [facility] Comment on above: Non- GFR Calc Prostate Specific Antigen Screen 2.69 ng/mL 0.00-4.00 [facility] Comment on above: This test was perfor med using the TPSA assay method for the[employer] ([employer]) chemistry system. Values obtained with differentassay methods cannot be used interchangably.When changing PSA assays in the course of monitoring apatient, additional sequential testing should be carriedout to confirm baseline values. Thyroid Stimulating Hormone (TSH) 0.84 uIU/mL 0.358-3.74 [facility] Platelets bldOrdered By: Mariah Rosas on 05-15-2022 Platelets (Bld) [#/Vol] 297 10*3/uL 150-450 [facility] Serum or plasma C reactive p rotein measurement (mass/volume)Ordered By: Jess Rosas on 05-15-2022 CRP [Mass/Vol] 8.24 mg/L 0.0-3.0 [facility] Comment on above: C-Reactive Protein ( CRP) provides useful information for thediagnosis, therapy and monitoring of inflammatory processesand associated diseases. For the evaluation of Relative Riskfor Cardiovascular Disease, a High Sensitivity CRP (HSCRP)should be ordered. Serum or plasma albumin alexandrea urement (mass/volume)Ordered By: Jess Rosas on 05-15-2022 Albumin [Mass/Vol] 4.1 g/dL 3.2-5.0 [facility] Serum or plasma albumin/glob ulin mass ratioOrdered By: Jess Rosas on 05-15-2022 Albumin/Globulin [Mass ratio] 1.1 {ratio} 0.9-2.4 [facility] Serum or plasma calcium alexandrea urement (mass/volume)Ordered By: Jess Rosas on 05-15-2022 Calcium [Mass/Vol] 9.5 mg/dL 8.5-10.1 [facility] Serum or plasma creatinine m easurement (mass/volume)Ordered By: Jess Rosas on 05-15-2022 Creatinine [Mass/Vol] 1.04 mg/dL 0.70-1.30 [facility] Comment on above: The validity of the calculated GFR & GFRAA in patients over 70 years has not been determined. Clinical correlation is essential. Serum or plasma testosterone free measurement (mass/volume)Ordered By: Jess Rosas on 05-15-2022 Testosterone Free [Mass/Vol] 9.57 ng/dL 5.00-21.00 [facility] Serum or plasma urea nitroge n measurement (mass/volume)Ordered By: Jess Rosas on 05-15-2022 Urea nitrogen [Mass/Vol] 13 mg/dL 7-18 [facility] Thin prep Papanicolaou smear with manual screeningOrdered By: Jess Rosas on 05-15-2022 Thin prep Papanicolaou smear with manual screening 17 U/L 15-37 [facility] Thin prep Papanicolaou smear with manual screening 5 5-15 [facility] O2 SATURATION (POC)on 2021 %HbO2 (Oxyhemoglobin)(POCT) 94.7 % [facility] Additional Comments (POCT) Venous 60%-85%; Arterial 95%-98% [facility] Comment (POCT) No anatomical site given %HBO2 ref range [facility] Hemoglobin (Bld) [Mass/Vol] 13.3 g/dL Abnormal 13.5 - 17.5 g/dL [facility] %HbO2 (Oxyhemoglobin)(POCT) 69.5 % [facility] Additional Comments (POCT) Venous 60%-85%; Arterial 95%-98% [facility] Comment (POCT) No anatomical site given %HBO2 ref range [facility] Hemoglobin (Bld) [Mass/Vol] 12.9 g/dL Abnormal 13.5 - 17.5 g/dL [facility] %HbO2 (Oxyhemoglobin)(POCT) 72.4 % [facility] Additional Comments (POCT) Venous 60%-85%; Arterial 95%-98% [facility] Comment (POCT) No anatomical site given %HBO2 ref range [facility] Hemoglobin (Bld) [Mass/Vol] 12.5 g/dL Abnormal 13.5 - 17.5 g/dL [facility] Absolute lymphocyte counton 10-01-2021 Lymphocytes Auto (Unsp spec) [#/Vol] 2.81 10*3/uL 0.83-4.51 [facility] Work Phone: Basophil percentageon 2021 Basophils/100 WBC (Bld) 1.0 % 0-1 [facility] Work Phone: Bilirubin [Mass/Vol] 0.40 mg/dL 0.20-1.00 [facility] Work Phone: Comment on above: For patients on eltr ombopag therapy, use of Dimension Husser TBIL is not recommended. Chloride [Moles/Vol] 102 mmol/L 98-107 [facility] Work Phone: Eosinophils/100 WBC (Bld) 4.3 % 0-5 [facility] Work Phone: Glucose [Mass/Vol] 99 mg/dL 74-106 [facility] Work Phone: Neutrophils (Bld) [#/Vol] 3.9 10*3/uL 2.0-7.7 [facility] Work Phone: Neutrophils/100 WBC (Bld) 51.2 % 47-70 [facility] Work Phone: Potassium [Moles/Vol] 4.6 mmol/L 3.5-5.1 [facility] Work Phone: Protein [Mass/Vol] 7.9 g/dL 6.4-8.2 [facility] Work Phone: [phone] Sodium [Moles/Vol] 137 mmol/L 136-145 [facility] Work Phone: WBC (Bld) [#/Vol] 7.6 10*3/uL 4.4-11.0 [facility] Work Phone: [phone] Blood erythrocytes count (nu mber/volume)on 10-01-2021 RBC (Bld) [#/Vol] 4.72 10*6/uL 4.6-6.2 [facility] Work Phone: Blood hemoglobin measurement (mass/volume)on 10-01-2021 Hemoglobin (Bld) [Mass/Vol] 13.9 g/dL 13.0-16.5 [facility] Work Phone: [phone] Blood lymphocytes/100 leukoc yteson 10-01-2021 Lymphocytes/100 WBC (Bld) 36.8 % 19-41 [facility] Work Phone: [phone] Blood monocytes/100 leukocyt eson 10-01-2021 Monocytes/100 WBC (Bld) 6.3 % 0-10 [facility] Work Phone: Blood platelet mean volumeon 10-01-2021 Platelet mean volume (Bld) [Entitic vol] 10.4 fL 6.2-12.0 [facility] Work Phone: Determination of erythrocyte mean corpuscular volume (MCV)on 10-01-2021 MCV (RBC) [Entitic vol] 83.9 fL 80-94 [facility] Work Phone: Hematocrit Auto (Bld) [Volum e fraction]on 10-01-2021 Hematocrit (Bld) [Volume fraction] 39.6 % 40-54 [facility] Work Phone: Laboratory - Chemistry and C hemistry - challengeon 10-01-2021 ALP [Catalytic activity/Vol] 67 U/L 45-117 [facility] Work Phone: [phone] ALT [Catalytic activity/Vol] 29 U/L 16-61 [facility] Work Phone: [phone] CO2 [Moles/Vol] 31.0 mmol/L 21.0-32.0 [facility] Work Phone: [phone] Globulin (S) [Mass/Vol] 3.8 g/dL 2.2-4.2 [facility] Work Phone: [phone] Natriuretic peptide B (Bld) [Mass/Vol] 39.2 pg/mL 0-100 [facility] Work Phone: [phone] Urea nitrogen/Creatinine [Mass ratio] 15.1 mg/mg 10-20 [facility] Work Phone: [phone] Laboratory - Hematology and Cell countson 10-01-2021 Erythrocyte distribution width (RBC) [Entitic vol] 40.8 fL 35.1-43.9 [facility] Work Phone: [phone] Erythrocyte distribution width (RBC) [Ratio] 13.2 % 11.6-14.6 [facility] Work Phone: [phone] Immature granulocytes/100 WBC (Bld) 0.400 % 0.0-0.9 [facility] Work Phone: [phone] Comment on above: IG% - Immature Granu locytes (promyelocytes, myelocytes and metamyelocytes) > 1% indicates that a LEFT SHIFT is Present. MCH (RBC) [Entitic mass] 29.4 pg 27.0-32.0 [facility] Work Phone: [phone] Nucleated RBC/100 WBC (Bld) [Ratio] 0 % 0-5 [facility] Work Phone: [phone] MCHC Auto (RBC) [Mass/Vol]on 10-01-2021 MCHC (RBC) [Mass/Vol] 35.1 g/dL 32-36 [facility] Work Phone: [phone] Panel Informationon 10-01 Estimated GFR (MDRD) Amer 77 mL/min >60 [facility] Work Phone: Comment on above: GFR Calc Estimated GFR (MDRD) Non-Af Amer 63 mL/min >60 [facility] Work Phone: Comment on above: Non- GFR Calc Platelets bldon 10-01-2021 Platelets (Bld) [#/Vol] 260 10*3/uL 150-450 [facility] Work Phone: Serum or plasma albumin alexandrea urement (mass/volume)on 10-01-2021 Albumin [Mass/Vol] 4.1 g/dL 3.2-5.0 [facility] Work Phone: [phone] Serum or plasma albumin/glob ulin mass ratioon 10-01-2021 Albumin/Globulin [Mass ratio] 1.1 {ratio} 0.9-2.4 [facility] Work Phone: Serum or plasma calcium alexandrea urement (mass/volume)on 10-01-2021 Calcium [Mass/Vol] 9.6 mg/dL 8.5-10.1 [facility] Work Phone: [phone] Serum or plasma creatinine m easurement (mass/volume)on 10-01-2021 Creatinine [Mass/Vol] 1.26 mg/dL 0.70-1.30 [facility] Work Phone: Comment on above: The validity of the calculated GFR & GFRAA in patients over 70 years has not been determined. Clinical correlation is essential. Serum or plasma urea nitroge n measurement (mass/volume)on 10-01-2021 Urea nitrogen [Mass/Vol] 19 mg/dL 7-18 [facility] Work Phone: [phone] Thin prep Papanicolaou smear with manual screeningon 10-01-2021 Thin prep Papanicolaou smear with manual screening 18 U/L 15-37 [facility] Work Phone: [phone] Thin prep Papanicolaou smear with manual screening 4 5-15 [facility] Work Phone: NM CARDIAC PERF STRESS/PHARM on [...] 60 minutes later. See administered doses below. [facility] Date of service: 09/08/2021 1:34:15 PM Ordering [...] of scarring. Final -------- Stress ECG Report: [facility] Date of service: 09/08/2021 1:34:15 PM Ordering physician: FELICITAS CHAVEZ vocational services specialist: Sadia Dudley Requirements Analyst: Vani Perdomo Interpreting physician: Adelfo Canales MD [...] 186/83 mmHg. The double product achieved was 00885. Previous cardiovascular interventions: CABG (2020 x 4) [...] / 83 mmHg Rate Pressure Product (RPP): 85262 Stress Exercise Observations: Reason for test termination: end of protocol, Symptoms during test: Other symptoms during the test included SOB, ST segment and T wave changes: No ST changes and Arrhythmias: Unifocal PVCs Final -------- Stress Generator Worker Report: [facility] Date of service: 09/08/2021 1:34:15 PM (more content not included)... Normal [facility] Radha 09-05-2021 CHRISTINAN Telephone (CDLBME) HAYDEN PENDLETON ([id number]) 1965 M Date Time Provider Department 09/05/21 VANI PERDOMO CDLStroz FriedbergE During your visit today, we recorded the [...] Fully Assessed Reason for Visit: Reminder Call [[id number]] Prescriptions as of 09/05/2021 - isosorbide mononitrate [...] Encounter Status:Closed by VANI PERDOMO on 09/05/21 [facility] Absolute lymphocyte counton 08-29-2021 Lymphocytes Auto (Unsp spec) [#/Vol] 2.14 10*3/uL 0.83-4.51 [facility] Work Phone: Basophil percentageon 2021 Basophils/100 WBC (Bld) 1.3 % 0-1 [facility] Work Phone: Chloride [Moles/Vol] 107 mmol/L 98-107 [facility] Work Phone: Eosinophils/100 WBC (Bld) 4.8 % 0-5 [facility] Work Phone: Glucose [Mass/Vol] 110 mg/dL 74-106 [facility] Work Phone: Comment on above: Fasting Glucose resu lt from 100 to 125 mg/dL suggests IMPAIRED HOMEOSTASIS per A.D.A. criteria. Neutrophils (Bld) [#/Vol] 5.4 10*3/uL 2.0-7.7 [facility] Work Phone: Neutrophils/100 WBC (Bld) 62.7 % 47-70 [facility] Work Phone: Potassium [Moles/Vol] 4.1 mmol/L 3.5-5.1 [facility] Work Phone: Sodium [Moles/Vol] 141 mmol/L 136-145 [facility] Work Phone: WBC (Bld) [#/Vol] 8.6 10*3/uL 4.4-11.0 [facility] Work Phone: Blood erythrocytes count (nu mber/volume)on 08-29-2021 RBC (Bld) [#/Vol] 4.69 10*6/uL 4.6-6.2 [facility] Work Phone: Blood hemoglobin measurement (mass/volume)on 08-29-2021 Hemoglobin (Bld) [Mass/Vol] 13.9 g/dL 13.0-16.5 [facility] Work Phone: Blood lymphocytes/100 leukoc yteson 08-29-2021 Lymphocytes/100 WBC (Bld) 24.8 % 19-41 [facility] Work Phone: Blood monocytes/100 leukocyt eson 08-29-2021 Monocytes/100 WBC (Bld) 6.1 % 0-10 [facility] Work Phone: Blood platelet mean volumeon 08-29-2021 Platelet mean volume (Bld) [Entitic vol] 10.1 fL 6.2-12.0 [facility] Work Phone: [phone] Determination of erythrocyte mean corpuscular volume (MCV)on 08-29-2021 MCV (RBC) [Entitic vol] 82.5 fL 80-94 [facility] Work Phone: [phone] Hematocrit Auto (Bld) [Volum e fraction]on 08-29-2021 Hematocrit (Bld) [Volume fraction] 38.7 % 40-54 [facility] Work Phone: Laboratory - Chemistry and C hemistry - challengeon 08-29-2021 CO2 [Moles/Vol] 29.0 mmol/L 21.0-32.0 [facility] Work Phone: [phone] Urea nitrogen/Creatinine [Mass ratio] 14.2 mg/mg 10-20 [facility] Work Phone: [phone] Laboratory - Hematology and Cell countson 08-29-2021 Erythrocyte distribution width (RBC) [Entitic vol] 42.4 fL 35.1-43.9 [facility] Work Phone: [phone] Erythrocyte distribution width (RBC) [Ratio] 14.3 % 11.6-14.6 [facility] Work Phone: [phone] Immature granulocytes/100 WBC (Bld) 0.300 % 0.0-0.9 [facility] Work Phone: [phone] Comment on above: IG% - Immature Granu locytes (promyelocytes, myelocytes and metamyelocytes) > 1% indicates that a LEFT SHIFT is Present. MCH (RBC) [Entitic mass] 29.6 pg 27.0-32.0 [facility] Work Phone: Nucleated RBC/100 WBC (Bld) [Ratio] 0 % 0-5 [facility] Work Phone: [phone] MCHC Auto (RBC) [Mass/Vol]on 08-29-2021 MCHC (RBC) [Mass/Vol] 35.9 g/dL 32-36 [facility] Work Phone: No Panel Informationon 08-29 Troponin I High Sensitivity 5 pg/mL 3.0-78.0 [facility] Work Phone: Comment on above: Please Note: New Andrzej t Units and Gender Specific Reference Ranges. For more information see Policy Stat Procedure Husser High Sensitivity Troponin (TNIH) and attachments. Estimated Creatinine Clearance Calc 65.74 ml/min [facility] Work Phone: Estimated GFR (MDRD) Amer 67 mL/min >60 [facility] Work Phone: Comment on above: GFR Calc Estimated GFR (MDRD) Non-Af Amer 56 mL/min >60 [facility] Work Phone: Comment on above: Non- GFR Calc Platelets bldon 08-29-2021 Platelets (Bld) [#/Vol] 265 10*3/uL 150-450 [facility] Work Phone: Serum or plasma calcium alexandrea urement (mass/volume)on 08-29-2021 Calcium [Mass/Vol] 9.0 mg/dL 8.5-10.1 [facility] Work Phone: Serum or plasma creatinine m easurement (mass/volume)on 08-29-2021 Creatinine [Mass/Vol] 1.41 mg/dL 0.70-1.30 [facility] Work Phone: Comment on above: The validity of the calculated GFR & GFRAA in patients over 70 years has not been determined. Clinical correlation is essential. Serum or plasma urea nitroge n measurement (mass/volume)on 08-29-2021 Urea nitrogen [Mass/Vol] 20 mg/dL 7-18 [facility] Work Phone: Thin prep Papanicolaou smear with manual screeningon 08-29-2021 Thin prep Papanicolaou smear with manual screening 5 5-15 [facility] Work Phone: XR Chest PA and Lateralon IMPRESSION: No acute radiographic abnormality. Overlock Operator: JACKI Transcribe Date/Time: Nov 22 2020 1:59P Dictated by : JEROD SEGOVIA MD This examination was interpreted and the report reviewed and electronically signed by: JEROD SEGOVIA MD on Nov 22 2020 2:02PM [facility] DIVISION OF RADIOLOGY * * *Final [...] shows degenerative changes. DIVISION OF RADIOLOGY Provider, [facility] - 11/22/2020 * * *Final Report* [...] changes. IMPRESSION IMPRESSION: No acute radiographic abnormality. Overlock Operator: JACKI Transcribe Date/Time: Nov 22 2020 1:59P Dictated by : JEROD SEGOVIA MD This examination was interpreted and the report reviewed and electronically signed by: JEROD SEGOVIA MD on Nov 22 2020 2:02PM EST [facility] Radiology Study observation (narrative) [facility] XR Chest PA and LateralOrder ed By: [facility] Provider on 11-22-2020 [facility] Vital Signs Date Time Vital Sign Value Performing Clinician Facility 10-26-2024 14:31-0400 Body height 185.42 cm Jess Rosas [employer] Work Phone: [phone] [place] [address] 10-26-2024 14:31-0400 Body mass index (BMI) [Ratio] 27.3 kg/m2 Jess Rosas [employer] Work Phone: [phone] [place] [address] 10-26-2024 14:31-0400 Body temperature 98.4 [degF] Jess Rosas [employer] Work Phone: [phone] [place] [address] 10-26-2024 14:31-0400 Body weight 93.89 kg Jess Rosas [employer] Work Phone: [phone] [place] [address] 10-26-2024 14:31-0400 Diastolic blood pressure 91 mm[Hg] Jess Rosas [employer] Work Phone: [phone] [place] [address] 10-26-2024 14:31-0400 Heart rate 64 /min Jess Rosas [employer] Work Phone: [phone] [place] [address] 10-26-2024 14:31-0400 Respiratory rate 16 /min Jess Rosas [employer] Work Phone: [phone] [place] [address] 10-26-2024 14:31-0400 SaO2% (BldA) [Mass fraction] 98 % Jess Rosas [employer] Work Phone: [phone] [place] [address] 10-26-2024 14:31-0400 Systolic blood pressure 153 mm[Hg] Jess Rosas [employer] Work Phone: [phone] [place] [address] 08-29-2024 14:52-0400 Body height 185.42 cm Jess Rosas [employer] Work Phone: [phone] [place] [address] 08-29-2024 14:52-0400 Body mass index (BMI) [Ratio] 27.6 kg/m2 Jess Rosas [employer] Work Phone: [phone] [place] [address] 08-29-2024 14:52-0400 Body temperature 98.6 [degF] Jess Rosas [employer] Work Phone: [phone] [place] [address] 08-29-2024 14:52-0400 Body weight 94.8 kg Jess Rosas [employer] Work Phone: [phone] [place] [address] 08-29-2024 14:52-0400 Diastolic blood pressure 89 mm[Hg] Jess Rosas [employer] Work Phone: [phone] [place] [address] 08-29-2024 14:52-0400 Heart rate 81 /min Jess Rosas [employer] Work Phone: [phone] [place] [address] 08-29-2024 14:52-0400 Respiratory rate 15 /min Jess Rosas [employer] Work Phone: [phone] [place] [address] 08-29-2024 14:52-0400 SaO2% (BldA) [Mass fraction] 96 % Jess Rosas [employer] Work Phone: [phone] [place] [address] 08-29-2024 14:52-0400 Systolic blood pressure 156 mm[Hg] Jess Rosas [employer] Work Phone: [phone] [place] [address] 08-03-2024 08:43-0400 Body temperature 98.4 [degF] Jess Rosas [employer] Work Phone: [phone] [place] [address] 08-03-2024 08:43-0400 Body weight 95.33 kg Jess Rosas [employer] Work Phone: [phone] [place] [address] 08-03-2024 08:43-0400 Diastolic blood pressure 72 mm[Hg] Jess Rosas [employer] Work Phone: [phone] [place] [address] 08-03-2024 08:43-0400 Heart rate 85 /min Jess Rosas [employer] Work Phone: [phone])663-915638 [place] [address] 08-03-2024 08:43-0400 Respiratory rate 17 /min Jess Rosas [employer] Work Phone: [phone] [place] [address] 08-03-2024 08:43-0400 SaO2% (BldA) [Mass fraction] 97 % Jess Rosas [employer] Work Phone: [phone] [place] [address] 08-03-2024 08:43-0400 Systolic blood pressure 150 mm[Hg] Jess Rosas [employer] Work Phone: [phone] [place] [address] 07-05-2024 15:14-0400 Diastolic blood pressure 89 mm[Hg] Jess Rosas [employer] Work Phone: [phone] [place] [address] 07-05-2024 15:14-0400 Heart rate 75 /min Jess Rosas [employer] Work Phone: [phone] [place] [address] 07-05-2024 15:14-0400 Systolic blood pressure 126 mm[Hg] Jess Rosas [employer] Work Phone: [phone])665-054038 [place] [address] 07-05-2024 08:14-0400 Body height 185.42 cm Jess Rosas [employer] Work Phone: [phone] [place] [address] 07-05-2024 08:14-0400 Body mass index (BMI) [Ratio] 27.1 kg/m2 Jess Rosas [employer] Work Phone: [phone] [place] [address] 07-05-2024 08:14-0400 Body temperature 98 [degF] Jess Rosas [employer] Work Phone: [phone])718-144738 [place] [address] 07-05-2024 08:14-0400 Body weight 93.44 kg Jess Rosas [employer] Work Phone: [phone])119-507538 [place] [address] 07-05-2024 08:14-0400 Diastolic blood pressure 61 mm[Hg] Jess Rosas [employer] Work Phone: [phone] [place] [address] 07-05-2024 08:14-0400 Heart rate 70 /min Jess Rosas [employer] Work Phone: [phone])761-612038 [place] [address] 07-05-2024 08:14-0400 Respiratory rate 16 /min Jess Rosas [employer] Work Phone: [phone] [place] [address] 07-05-2024 08:14-0400 SaO2% (BldA) [Mass fraction] 97 % Jess Rosas [employer] Work Phone: [facility] 07-05-2024 08:14-0400 Systolic blood pressure 102 mm[Hg] Jess Rosas [employer] Work Phone: [facility] 06-06-2024 14:50-0400 Body height 185.4 cm Felicitas Chavez MD Work Phone: [facility] 06-06-2024 14:50-0400 Body mass index (BMI) [Ratio] 26.65 kg/m2 Felicitas Chavez MD Work Phone: [facility] 06-06-2024 14:50-0400 Body weight 91.63 kg Felicitas Chavez MD Work Phone: [facility] 06-06-2024 14:50-0400 Diastolic blood pressure 71 mm[Hg] Felicitas Chavez MD Work Phone: [facility] 06-06-2024 14:50-0400 Respiratory rate 16 /min Felicitas Chavez MD Work Phone: [facility] 06-06-2024 14:50-0400 SaO2% (BldA) [Mass fraction] 96 % Felicitas Chavez MD Work Phone: [facility] 06-06-2024 14:50-0400 Systolic blood pressure 123 mm[Hg] Felicitas Chavez MD Work Phone: [facility] 05-26-2024 15:27-0400 Body mass index (BMI) [Ratio] 26.4 kg/m2 Jess Rosas [employer] Work Phone: [facility] 05-26-2024 14:40-0400 Body temperature 98 [degF] Jess Rosas [employer] Work Phone: [facility] 05-26-2024 14:40-0400 Diastolic blood pressure 86 mm[Hg] Jess Rosas [employer] Work Phone: [facility] 05-26-2024 14:40-0400 Heart rate 94 /min Jess Rosas [employer] Work Phone: [phone] [place] [address] 05-26-2024 14:40-0400 Respiratory rate 15 /min Jess Rosas [employer] Work Phone: 7(327)370-935738 [place] [address] 05-26-2024 14:40-0400 SaO2% (BldA) [Mass fraction] 99 % Jess Rosas [employer] Work Phone: 9(674)282-185238 [place] [address] 05-26-2024 14:40-0400 Systolic blood pressure 132 mm[Hg] Jess Rosas [employer] Work Phone: 4(472)873-561538 [place] [address] 05-26-2024 09:34-0400 Body height 185.42 cm Jess Rosas [employer] Work Phone: 2(545)894-560238 [place] [address] 05-26-2024 09:34-0400 Body weight 91.1 kg Jess Rosas [employer] Work Phone: 5(675)965-813238 [place] [address] 05-25-2024 14:30-0400 Diastolic blood pressure 77 mm[Hg] Jess Rosas [employer] Work Phone: 7(917)559-094038 [place] [address] 05-25-2024 14:30-0400 Heart rate 62 /min Jess Rosas [employer] Work Phone: 1(873)238-795938 [place] [address] 05-25-2024 14:30-0400 Respiratory rate 15 /min Jess Rosas [employer] Work Phone: 7(493)749-226038 [place] [address] 05-25-2024 14:30-0400 SaO2% (BldA) [Mass fraction] 98 % Jess Rosas [employer] Work Phone: 4(505)120-931738 [place] [address] 05-25-2024 14:30-0400 Systolic blood pressure 120 mm[Hg] Jess Rosas [employer] Work Phone: 5(419)022-484338 [place] [address] 05-25-2024 14:23-0400 Body temperature 98.2 [degF] Jess Rosas [employer] Work Phone: 9(297)651-351138 [place] [address] 05-25-2024 13:27-0400 Body mass index (BMI) [Ratio] 27.2 kg/m2 Jess Rosas [employer] Work Phone: 6(420)210-206638 [place] [address] 05-25-2024 13:27-0400 Body weight 93.7 kg Jess Deisy [employer] Work Phone: [facility] 05-25-2024 12:19-0400 Body height 185.42 cm Jess Bentonder [employer] Work Phone: [facility] 11-04-2023 09:44-0400 Body mass index (BMI) [Ratio] 27.36 kg/m2 Ciera Palm MD Work Phone: [facility] 11-04-2023 09:44-0400 Body temperature 97.39 [degF] Ciera Palm MD Work Phone: [facility] 11-04-2023 09:44-0400 Body weight 91.5 kg Ciera Palm MD Work Phone: [facility] 11-04-2023 09:44-0400 Diastolic blood pressure 92 mm[Hg] Ciera Palm MD Work Phone: [facility] 11-04-2023 09:44-0400 Heart rate 71 /min Ciera Palm MD Work Phone: [facility] 11-04-2023 09:44-0400 Systolic blood pressure 147 mm[Hg] Ciera Palm MD Work Phone: [facility] 07-03-2022 10:44-0400 Body height 195.[address] Quang Hanson Work Phone: [facility] 07-03-2022 10:44-0400 Body mass index (BMI) [Ratio] 24.5 kg/m2 Dr. Quang Hanson Work Phone: [facility] 07-03-2022 10:44-0400 Body temperature 98 [degF] Dr. Quang Hanson Work Phone: [facility] 07-03-2022 10:44-0400 Body weight 93.[address] Quang Hanson Work Phone: [facility] 07-03-2022 10:44-0400 Diastolic blood pressure 90 mm[Hg] Dr. Quang Hanson Work Phone: [facility] 07-03-2022 10:44-0400 Heart rate 70 /min Dr. Quang Hanson Work Phone: [facility] 07-03-2022 10:44-0400 Respiratory rate 18 /min Dr. Quang Hanson Work Phone: [facility] 07-03-2022 10:44-0400 SaO2% (BldA) [Mass fraction] 100 % Dr. Quang Hanson Work Phone: [facility] 07-03-2022 10:44-0400 Systolic blood pressure 143 mm[Hg] Dr. Quang Hanson Work Phone: [facility] 07-03-2022 10:21-0400 Body temperature 97.3 [degF] Dr. Quang Hanson Work Phone: [facility] 07-03-2022 10:21-0400 Diastolic blood pressure 84 mm[Hg] Dr. Quang Hanson Work Phone: [facility] 07-03-2022 10:21-0400 Heart rate 74 /min Dr. Quang Hanson Work Phone: [facility] 07-03-2022 10:21-0400 Respiratory rate 20 /min Dr. Quang Hanson Work Phone: [facility] 07-03-2022 10:21-0400 SaO2% (BldA) [Mass fraction] 99 % Dr. Quang Hanson Work Phone: [facility] 07-03-2022 10:21-0400 Systolic blood pressure 136 mm[Hg] Dr. Quang Hanson Work Phone: [facility] 05-14-2022 15:05-0400 Body height 195.[address] Quang Hanson Work Phone: [facility] 05-14-2022 15:05-0400 Body mass index (BMI) [Ratio] 24.4 kg/m2 Dr. Quang Hanson Work Phone: [facility] 05-14-2022 15:05-0400 Body temperature 98 [degF] Dr. Quang Hanson Work Phone: [facility] 05-14-2022 15:05-0400 Body weight 93.[address] Quang Hanson Work Phone: [facility] 05-14-2022 15:05-0400 Diastolic blood pressure 100 mm[Hg] Dr. Quang Hanson Work Phone: [facility] 05-14-2022 15:05-0400 Heart rate 85 /min Dr. Quang Hanson Work Phone: [facility] 05-14-2022 15:05-0400 Respiratory rate 16 /min Dr. Quang Hanson Work Phone: [facility] 05-14-2022 15:05-0400 SaO2% (BldA) [Mass fraction] 96 % Dr. Quang Hanson Work Phone: [facility] 05-14-2022 15:05-0400 Systolic blood pressure 148 mm[Hg] Dr. Quang Hanson Work Phone: [facility] 12-30-2021 13:31-0500 Body height 184.[address] Quang Hanson Work Phone: [facility] Work Phone: 12-30-2021 13:31-0500 Body mass index (BMI) [Ratio] 27.4 kg/m2 Dr. Quang Hanson Work Phone: [facility] Work Phone: 12-30-2021 13:31-0500 Body temperature 97.3 [degF] Dr. Quang Hanson Work Phone: [facility] Work Phone: 12-30-2021 13:31-0500 Body weight 92.[address] Quang Hanson Work Phone: [facility] Work Phone: 12-30-2021 13:31-0500 Diastolic blood pressure 90 mm[Hg] Dr. Quang Hanson Work Phone: [facility] Work Phone: 12-30-2021 13:31-0500 Heart rate 84 /min Dr. Quang Hanson Work Phone: [facility] Work Phone: 12-30-2021 13:31-0500 Respiratory rate 17 /min Dr. Quang Hanson Work Phone: [facility] Work Phone: 12-30-2021 13:31-0500 SaO2% (BldA) [Mass fraction] 99 % Dr. Quang Hanson Work Phone: [facility] Work Phone: 12-30-2021 13:31-0500 Systolic blood pressure 158 mm[Hg] Dr. Quang Hanson Work Phone: [facility] Work Phone: 11-10-2021 15:16-0400 Body mass index (BMI) [Ratio] 27.8 kg/m2 Dr. Quang Hanson Work Phone: [facility] Work Phone: 11-10-2021 15:16-0400 Body temperature 97.1 [degF] Dr. Quang Hanson Work Phone: [facility] Work Phone: 11-10-2021 15:16-0400 Body weight 95.[address] Quang Hanson Work Phone: [facility] Work Phone: 11-10-2021 15:16-0400 Diastolic blood pressure 66 mm[Hg] Dr. Quang Hanson Work Phone: [facility] Work Phone: 11-10-2021 15:16-0400 Heart rate 81 /min Dr. Quang Hanson Work Phone: [facility] Work Phone: 11-10-2021 15:16-0400 Respiratory rate 18 /min Dr. Quang Hanson Work Phone: [facility] Work Phone: 11-10-2021 15:16-0400 SaO2% (BldA) [Mass fraction] 98 % Dr. Quang Hanson Work Phone: [facility] Work Phone: 11-10-2021 15:16-0400 Systolic blood pressure 148 mm[Hg] Dr. Quang Hanson Work Phone: [facility] Work Phone: 11-05-2021 13:00-0400 Heart rate 77 /min Anette Garcia MD Work Phone: [facility] 11-05-2021 13:00-0400 Respiratory rate 26 /min Anette Garcia MD Work Phone: [facility] 11-05-2021 13:00-0400 SaO2% (BldA) [Mass fraction] 98 % Anette Garcia MD Work Phone: [facility] 11-05-2021 12:45-0400 Diastolic blood pressure 135 mm[Hg] Anette Garcia MD Work Phone: [facility] 11-05-2021 12:45-0400 Systolic blood pressure 171 mm[Hg] Anette Garcia MD Work Phone: [facility] 10-21-2021 13:42-0400 Body mass index (BMI) [Ratio] 27.3 kg/m2 Dr. Quang Hanson Work Phone: [facility] Work Phone: 10-21-2021 13:42-0400 Body temperature 97.5 [degF] Dr. Quang Hanson Work Phone: [facility] Work Phone: 10-21-2021 13:42-0400 Body weight [address] Quang Hanson Work Phone: [facility] Work Phone: 10-21-2021 13:42-0400 Diastolic blood pressure 74 mm[Hg] Dr. Quang Hanson Work Phone: [facility] Work Phone: 10-21-2021 13:42-0400 Heart rate 82 /min Dr. Quang Hanson Work Phone: [facility] Work Phone: 10-21-2021 13:42-0400 Respiratory rate 16 /min Dr. Quang Hanson Work Phone: [facility] Work Phone: 10-21-2021 13:42-0400 SaO2% (BldA) [Mass fraction] 99 % Dr. Quang Hanson Work Phone: [facility] Work Phone: 10-21-2021 13:42-0400 Systolic blood pressure 155 mm[Hg] Dr. Quang Hanson Work Phone: [facility] Work Phone: 10-15-2021 13:01-0400 Body height 182.9 cm Felicitas Chavez MD Work Phone: [facility] 10-15-2021 13:01-0400 Body weight 94.48 kg Felicitas Chavez MD Work Phone: [facility] 10-15-2021 13:01-0400 Diastolic blood pressure 67 mm[Hg] Felicitas Chavez MD Work Phone: [facility] 10-15-2021 13:01-0400 Heart rate 71 /min Felicitas Chavez MD Work Phone: [facility] 10-15-2021 13:01-0400 SaO2% (BldA) [Mass fraction] 99 % Felicitas Chavez MD Work Phone: [facility] 10-15-2021 13:01-0400 Systolic blood pressure 135 mm[Hg] Felicitas Chavez MD Work Phone: [facility] 10-01-2021 13:32-0400 Body height 185.[address] Quang Hanson Work Phone: [facility] Work Phone: 10-01-2021 13:32-0400 Body mass index (BMI) [Ratio] 27.3 kg/m2 Dr. Quang Hanson Work Phone: [facility] Work Phone: 10-01-2021 13:32-0400 Body temperature 98.3 [degF] Dr. Quang Hanson Work Phone: [facility] Work Phone: 10-01-2021 13:32-0400 Body weight 93.[address] Quang Hanson Work Phone: [facility] Work Phone: 10-01-2021 13:32-0400 Diastolic blood pressure 78 mm[Hg] Dr. Quang Hanson Work Phone: [facility] Work Phone: 10-01-2021 13:32-0400 Heart rate 92 /min Dr. Quang Hanson Work Phone: [facility] Work Phone: 10-01-2021 13:32-0400 Respiratory rate 14 /min Dr. Quang Hanson Work Phone: [facility] Work Phone: 10-01-2021 13:32-0400 SaO2% (BldA) [Mass fraction] 98 % Dr. Quang Hanson Work Phone: [facility] Work Phone: 10-01-2021 13:32-0400 Systolic blood pressure 136 mm[Hg] Dr. Quang Hanson Work Phone: [facility] Work Phone: 09-09-2021 12:30-0400 Body height 185.[address] Quang Hanson Work Phone: [facility] Work Phone: 09-09-2021 12:30-0400 Body weight 94.[address] Quang Hanson Work Phone: [facility] Work Phone: 09-09-2021 12:30-0400 Heart rate 86 /min Dr. Quang Hanson Work Phone: [facility] Work Phone: 09-09-2021 12:30-0400 Inhaled oxygen concentration 21 % Dr. Quang Hanson Work Phone: [facility] Work Phone: 09-09-2021 12:30-0400 SaO2% (BldA) [Mass fraction] 98 % Dr. Quang Hanson Work Phone: [facility] Work Phone: 09-03-2021 14:26-0400 Body height 182.9 cm Felicitas Chavez MD Work Phone: [facility] 09-03-2021 14:26-0400 Body temperature 97.5 [degF] Felicitas Chavez MD Work Phone: [facility] 09-03-2021 14:26-0400 Body weight 94.8 kg Felicitas Chavez MD Work Phone: [facility] 09-03-2021 14:26-0400 Diastolic blood pressure 71 mm[Hg] Felicitas Chavez MD Work Phone: [facility] 09-03-2021 14:26-0400 Heart rate 81 /min Felicitas Chavez MD Work Phone: [facility] 09-03-2021 14:26-0400 SaO2% (BldA) [Mass fraction] 99 % Felicitas Chavez MD Work Phone: [facility] 09-03-2021 14:26-0400 Systolic blood pressure 141 mm[Hg] Felicitas Chavez MD Work Phone: [facility] 08-29-2021 18:29-0400 Diastolic blood pressure 86 mm[Hg] Dr. Quang Hanson Work Phone: [facility] Work Phone: 08-29-2021 18:29-0400 Heart rate 70 /min Dr. Quang Hanson Work Phone: [facility] Work Phone: 08-29-2021 18:29-0400 Respiratory rate 18 /min Dr. Quang Hanson Work Phone: [facility] Work Phone: 08-29-2021 18:29-0400 SaO2% (BldA) [Mass fraction] 96 % Dr. Quang Hanson Work Phone: [facility] Work Phone: 08-29-2021 18:29-0400 Systolic blood pressure 148 mm[Hg] Dr. Quang Hanson Work Phone: [facility] Work Phone: 08-29-2021 16:22-0400 Body mass index (BMI) [Ratio] 27.9 kg/m2 Dr. Quang Hanson Work Phone: [facility] Work Phone: 08-29-2021 16:22-0400 Body temperature 97.7 [degF] Dr. Quang Hanson Work Phone: [facility] Work Phone: 08-29-2021 16:22-0400 Body weight 93.[address] Quang Hanson Work Phone: [facility] Work Phone: 08-29-2021 08:36-0400 Body mass index (BMI) [Ratio] 28 kg/m2 Dr. Quang Hanson Work Phone: [facility] Work Phone: 08-29-2021 08:36-0400 Body temperature 98.3 [degF] Dr. Quang Hanson Work Phone: [facility] Work Phone: 08-29-2021 08:36-0400 Body weight 93.[address] Quang Hanson Work Phone: [facility] Work Phone: 08-29-2021 08:36-0400 Diastolic blood pressure 87 mm[Hg] Dr. Quang Hanson Work Phone: [facility] Work Phone: 08-29-2021 08:36-0400 Heart rate 86 /min Dr. Quang Hanson Work Phone: [facility] Work Phone: 08-29-2021 08:36-0400 Respiratory rate 17 /min Dr. Quang Hanson Work Phone: [facility] Work Phone: 08-29-2021 08:36-0400 SaO2% (BldA) [Mass fraction] 98 % Dr. Quang Hanson Work Phone: [facility] Work Phone: 08-29-2021 08:36-0400 Systolic blood pressure 136 mm[Hg] Dr. Quang Hanson Work Phone: [facility] Work Phone: Encounters Encounter Date Encounter Type Care Provider Facility Start: 11-10-2024 ambulatory Jess Rosas [facility] Facility :[facility] Start: 10-26-[address] Terrell Quiles MD -[facility] [place] Work Phone: Start: 10-26-2024 ambulatory Terrell Qu[facility] Start: 10-26-2024 End: 10-26-[address] Terrell Quiles MD -[facility] Work Phone: Start: 10-26-2024 End: 10-26-2024 ambulatory Jess Rosas [employer] Work Phone: -[facility] Start: 10-18-2024 End: 10-18-2024 Refill Felicitas Chavez MD Work Phone: [facility] Comment on above: Refill Request Start: 10-13-2024 End: 10-13-2024 ambulatory Jess Rosas [employer] Work Phone: -[facility] Start: 10-13-2024 End: 10-13-[address] Terrell Quiles MD -[facility] Work Phone: Start: 10-13-2024 End: 10-13-2024 ambulatory Terrell Quiles Facility:[facility] Start: 10-10-2024 End: 10-10-2024 Telephone encounter Neurology Provider Neurology Start: 09-26-2024 End: 09-26-2024 ambulatory Jess Rosas [employer] Work Phone: -[facility] Natalie Grajeda Start: 09-26-2024 End: 09-26-2024 Patient encounter procedure Faheem Hyde [employer]OTTAGE SUPERVISOR-C -Laboratory [facility] Gra[facility]eda Start: 09-26-2024 End: 09-26-2024 ambulatory Jess Rosas [facility] Facility:[facility] Start: 08-29-2024 End: 08-29-[address] Terrell Quiles MD -[facility] Work Phone: Start: 08-29-2024 End: 08-29-2024 ambulatory Jess Rosas [employer] Work Phone: -[facility] Start: 08-03-2024 End: 08-03-2024 ambulatory Jess Rosas [employer] Work Phone: [facility] Work Phone: Start: 08-03-2024 End: 08-03-[address] Terrell Quiles MD -[facility] Work Phone: Start: 08-03-2024 End: 08-03-2024 ambulatory Jess Bentonder [facility] Facility:[facility] Start: 07-27-2024 End: 07-27-2024 ambulatory Jess Bentonder [employer] Work Phone: [facility] Work Phone: Start: 07-27-2024 End: 07-27-[address] Terrell Quiles MD -[facility] Work Phone: Start: 07-27-2024 End: 07-27-2024 ambulatory Jess Bentonder [employer]C Work Phone: [facility] Work Phone: Start: 07-27-2024 End: 07-27-[address] Terrell Quiles MD -[facility] Work Phone: Start: 07-27-2024 End: 07-27-2024 ambulatory Jess Bentonder C Facility:[facility] Start: 07-12-2024 End: 07-12-2024 ambulatory CELIA SANDERS Facility:[facility] Start: 07-05-2024 End: 07-05-[address] Terrell Quiles MD -[facility] Work Phone: Start: 07-05-2024 End: 07-05-2024 ambulatory Jess Rosas [employer]C Work Phone: [facility] Work Phone: Start: 07-03-2024 End: 07-03-2024 ambulatory Celia Sanders PT [facility] Comment on above: Vestibular hypofunct ion, unspecified laterality (Primary Dx) Start: 06-21-2024 End: 06-21-2024 ambulatory Claritza Vargas OTR/L Work Phone: [facility] Comment on above: Cognitive impairment Start: 06-20-2024 End: 06-20-2024 Patient encounter procedure Faheem Hyde NP-C -[facility], Natalie Grajeda Start: 06-20-2024 End: 06-20-2024 ambulatory Jess Rosas [facility] Facility:[facility] Start: 06-14-2024 End: 08-14-2024 Follow-up encounter Jose Tucker MD Work Phone: [facility] Start: 06-09-2024 End: 06-13-2024 Evaluation and management of inpatient [facility] Facility:[facility] Start: 06-06-2024 End: 06-06-2024 Subsequent hospital visit by physician Card [facility] Comment on above: Palpitations [R00.2] Start: 06-06-2024 End: 06-06-2024 Patient encounter procedure Felicitas Chavez MD Work Phone: [facility] [place] [facility] Comment on above: 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 Betty HAYNES -[facility] Work Phone: Start: 05-26-2024 ambulatory Jess Bentonder [facility] Facility :[facility] Start: 05-26-2024 Non-patient / Non-visit Dr. Kiana HU -[facility] Start: 05-25-2024 End: 05-26-2024 ambulatory Nilo Hill Facility:[facility] Start: 05-25-2024 End: 05-26-2024 Evaluation and management of inpatient Dr. Joi Woodson MD -Progressive Care Unit Work Phone: Start: 05-25-2024 End: 05-26-2024 observation encounter Jess Rosas [employer]C Work Phone: [facility] Work Phone: Start: 2024 End: 2024 ambulatory Jess Rosas [employer] Work Phone: [facility] Work Phone: Start: 2024 End: 2024 Patient encounter procedure Jess Rosas [employer]AGE [employer]PER[employer]-C -Laboratory, Natalie Nicci Start: 2024 End: 2024 ambulatory Jess [facility] Facility:[facility] Start: 04-09-2024 End: 04-10-2024 Refill Felicitas Chavez MD Work Phone: [facility] Comment on above: Refill Request Start: 03-22-2024 End: 03-22-2024 Refill Froylan Calhoun MD Work Phone: Cardiology Comment on above: Refill Request Start: 02-24-2024 End: 02-24-2024 Patient encounter procedure Jess Rosas [employer]-C -Laboratory Work Phone: Start: 02-24-2024 End: 02-24-2024 ambulatory Jess Rosas [facility] Facility:[facility] Start: 01-08-2024 End: 01-10-2024 Refill Felicitas Chavez MD Work Phone: Cardiology Comment on above: Refill Request Start: 01-07-2024 End: 01-07-2024 Telephone encounter Felicitas Chavez MD Work Phone: [facility] Cardiology Comment on above: Appointment Start: 01-06-2024 End: 01-07-2024 Refill Felicitas Chavez MD Work Phone: [facility] Comment on above: Refill Request Start: 11-22-2023 End: 11-22-2023 ambulatory Ciera Palm MD Work Phone: Rheumatology Comment on above: CHANDANA positive (Primar y Dx); Chronic pain of both knees; Primary osteoarthritis of both knees Start: 11-22-2023 End: 11-22-2023 Telemedicine consultation with patient Ciera Palm MD Work Phone: Rheumatology Start: 11-09-2023 End: 11-09-2023 ambulatory CIERA PALM Facility:[facility] Start: 11-09-2023 End: 11-09-2023 Subsequent hospital visit by physician Prudence [facility] Mynor Feng Work Phone: Radiology Comment on above: Chronic pain of both knees [M25.561, M25.562, G89.29] Start: 11-04-2023 End: 11-04-2023 ambulatory CIERA PALM Facility:[facility] Start: 11-04-2023 End: 11-04-2023 [facility] Start: 11-04-2023 End: 11-04-2023 Office consultation [...] End: 08-09-2023 Subsequent hospital visit by physician [facility] Work Phone: Radiology Comment on above: Pain in both knees, unspecified chronicity [M25.561, M25.562] Start: 07-27-2023 Orders Only Ramirez Thomas MD Work Phone: Orthopaedics Comment on above: Pain in both knees, unspecified chronicity (Primary Dx) Start: 07-18-2023 Refill Felicitas Chavez MD Work Phone: Cardiology Comment on above: Refill Request Start: 03-06-2023 End: 03-06-2023 ambulatory [facility] Work Phone: Start: 03-06-2023 End: 03-06-2023 Patient encounter procedure [facility]-Laboratory Work Phone: Start: 12-29-2022 Refill Felicitas Chavez MD Work Phone: Cardiology Comment on above: Refill Request Start: 11-09-2022 Telephone encounter Felicitas Hernandez i, MD Work Phone: [facility] Cardiology [place] Comment on above: Appointment Refill Request Start: 09-28-2022 Refill Felicitas Chavez MD Work Phone: Cardiology Comment on above: Refill Request Start: 07-03-2022 End: 07-03-2022 Emergency department patient visit Dr. Quang Hanson Work Phone: [facility]Emergency Department Start: 07-03-2022 End: 07-03-[address] Quang Hanson Work Phone: [facility] Start: 06-23-2022 End: 06-23-[address] Quang Hanson Work Phone: [facility] Work Phone: Start: 06-23-2022 End: 06-23-[address] Quang Hanson Work Phone: [facility] Start: 05-29-2022 Refill Felicitas Chavez MD Work Phone: Cardiology Comment on above: Refill Request Start: 05-29-2022 Telephone encounter Felicitas Hernandez i, MD Work Phone: Cardiology Comment on above: Medication Problem Start: 05-15-2022 End: 05-15-[address] Quang Hanson Work Phone: [facility] Start: 05-14-2022 End: 05-14-[address] Quang Hanson Work Phone: [facility] Start: 01-10-2022 End: 01-10-[address] Quang Hanson Work Phone: [facility] Work Phone: Start: 01-10-2022 End: 01-10-[address] Quang Hanson Work Phone: [facility] Start: 12-30-2021 End: 12-30-[address] 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 Quang Hanson Work Phone: [facility] Start: 11-05-2021 End: 11-05-2021 Subsequent hospital visit by physician Anette Garcia MD Work Phone: [employer] Comment on above: Unstable angina (HCC ) [I20.0], ACS (acute coronary syndrome) (HCC) [I24.9] Start: 11-03-2021 Telephone encounter Felicitas Hernandez i, MD Work Phone: Cardiology Comment on above: Results Start: 10-23-2021 ambulatory Felicitas Chavez MD Work Phone: Cardiology Comment on above: Heart cath Start: 10-23-2021 Telephone encounter Felicitas Hernandez i, MD Work Phone: [facility] Cardiology [place] Comment on above: Patient Update; Orde rs Start: 10-21-2021 End: 10-21-[address] 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 Quang Hanson Work Phone: [facility] Start: 10-01-2021 End: 10-01-[address] Quang Hanson Work Phone: [facility] Start: 09-22-2021 Non-patient / Non-visit Dr. Vincenzo Hanson Work Phone: [facility] Start: 09-22-2021 End: 09-22-[address] Quang Hanson Work Phone: [facility] Start: 09-09-2021 Telephone encounter Felicitas Hernandez i, MD Work Phone: Cardiology Comment on above: Patient Question; Pa tient Update Results Start: 09-09-2021 End: 09-09-[address] Quang Hanson Work Phone: [facility]-Pulmonary Services/Neurology Start: 09-09-2021 Non-patient / Non-visit Dr. Vincenzo Hanson Work Phone: [facility] Start: 09-08-2021 End: 09-08-2021 Subsequent hospital visit by physician [facility] Work Phone: Cardiology Lab Comment on above: Precordial pain [R07 .2] Start: 09-05-2021 Telephone encounter Vani pacheco RN Cardiology Lab Comment on above: Reminder Call Start: 09-03-2021 End: 09-03-2021 Patient encounter procedure Felicitas Chavez MD Work Phone: Cardiology Comment on above: Coronary artery dise ase involving qagan tayagungin coronary artery of qagan tayagungin heart without angina pectoris (Primary Dx); Precordial pain; Hx of CABG; SHAH (dyspnea on exertion); Primary hypertension Start: 08-29-2021 End: 08-29-2021 Emergency department patient visit Dr. Quang Hanson Work Phone: [facility]-Emergency Department Start: 08-29-2021 Telephone encounter Felicitas Hernandez i, MD Work Phone: Cardiology Comment on above: Patient Question; Pa tient Update Start: 08-29-2021 End: 08-29-[address] Quang Hanson Work Phone: [facility]Pulmonary Medicine [facility] Start: 05-20-2021 Refill Felicitas Chavez MD Work Phone: Cardiology Comment on above: Refill Request Start: 11-22-2020 End: 11-22-2020 Subsequent hospital visit by physician Xr [facility] Work Phone: Radiology Comment on above: S/P CABG x 4 [Z95.1] Procedures Date Procedure Procedure Detail Performing Clinician Start: 10-13-2024 MRI of lumbar spine Jess Rosas COTTAGE SUPERVISOR-C Work Phone: Start: 09-26-2024 Total iron binding capacity measurement Jess Rosas COTTAGE SUPERVISOR-C Work Phone: Start: 09-26-2024 Vitamin D, 25-hydroxy measurement Jess francis COTTAGE SUPERVISOR-C Work Phone: Comment on above: Vitamin D StatusDeficiency: <20 ng/mL (5 0nmol/L)Insufficiency: 20-30 ng/mL (50-75 nmol/L)Sufficiency: 30-100 ng/mL (75-250 nmol/L)Toxicity: >100 ng/mL (>250 nmol/L) Start: 08-03-2024 Albumin/Globulin ratio Jess Rosas COTTAGE SUPERVISOR-C Work Phone: Start: 08-03-2024 Immunoglobulin M measurement Jess Rosas COTTAGE SUPERVISORAlbertC Work Phone: Start: 08-03-2024 Urine immunofixation Jess Rosas COTTAGE SUPERVISOR-C Work Phone: Comment on above: No monoclonality detected.Performed at: [facility] [id number] Director: Loy Lopez PhD, Phone: [phone] Start: 07-27-2024 MRI of cervical spine with contrast Jess Rosas COTTAGE SUPERVISOR-C Work Phone: Start: 07-27-2024 Folic acid measurement, RBC Jess Rosas N P-C Work Phone: Comment on above: Performed at: [facility] [employer] [facility] [place] [id number] Director: Loy Lopez PhD, Phone: [phone] Start: 07-27-2024 Procedure Jess Rosas COTTAGE SUPERVISOR-C Work Phone: Comment on above: Test Ordered: [id number] Metanephrines, Frac ., Pl. FreeTest(s) 000668-Cmzuvwibednzdqu, Pl; 911413-Uifkbesbewgk, Plwas developed and its performance characteristicsdetermined by [employer]. It has not been cleared or approvedby the Food and Drug Administration.Normetanephrine, Pl 104.0 pg/mL BN Reference Range: 0.0-244.0Metanephrine, Pl <25.0 pg/mL BN Reference Range: 0.0-88.0Performed at: [facility] [employer] [id number] Director: Sylvia Chapman MD, Phone: [phone] at: [address] [id number] Director: Loy Lopez PhD, Phone: [phone] Start: 07-27-2024 Urine lambda light chain measurement Jess Deisy COTTAGE SUPERVISOR-C Work Phone: Start: 06-20-2024 Measurement of Borrelia burgdorferi antibody Jess Deisy COTTAGE SUPERVISOR-C Work Phone: Comment on above: Lyme antibodies not detected. Reflex andrzej ting is notindicated.No laboratory evidence of infection with B. burgdorferi(Lyme disease). Negative results may occur in patientsrecently infected (less than or equal to 14 days) with B.burgdorferi. If recent infection is suspected, repeattesting on a new sample collected in 7 to 14 days isrecommended.Performed at: [employer] [id number] Director: Loy Lopez PhD, Phone: [phone] Start: 06-06-2024 Ecg routine ecg w/least 12 lds w/i&r Felicitas Chavez MD Work Phone: Start: 05-26-2024 Estimated creatinine clearance Jess Esteban skinner COTTAGE SUPERVISOR-C Work Phone: Start: 05-25-2024 MRI of brain without contrast Jess Rosas COTTAGE SUPERVISOR-C Work Phone: Start: 05-25-2024 CT angiography of head and neck Jess barrientos COTTAGE SUPERVISOR-C Work Phone: Start: 02-05-2023 History of coronary [...] Radiologic exam chest 2 views 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 Start: 10-28-2020 History of coronary artery bypass [...] bypass grafting S/P CABG x 4 X[facility] [place] Work Phone: History of coronary artery bypass grafting Hx of CABG Felicitas Chavez MD Work Phone: Plan of Treatment Date Care Activity Detail Author Start: 06-10-2027 Diabetes Screening Diabetes Screening [facility] Start: 11-03-2026 Diabetes Screening Diabetes Screening [facility] Start: 10-23-2025 Lipid 1996 panel - Serum or Plasma Lipid Screening [facility] Start: 10-23-2025 Lipid panel Lipid Screening [facility] Start: 10-23-2025 LIPID SCREEN LIPID SCREEN [facility] Start: 06-06-2025 BP Controlled (<130/80) BP Controlled (<130/80) [facility] Start: 11-01-2024 DIABETES SCREEN DIABETES SCREEN [facility] Start: 11-01-2024 Diabetes Screening Diabetes Screening [facility] Start: 10-26-2024 X-ray of thoracic spine, three views Thoracic Spine 3 Views [facility] Start: 10-26-2024 XR Thoracic spine 3 Views [facility] Start: 10-23-2024 Influenza vaccination [facility] Start: 07-27-2024 Folic acid measurement, RBC [facility] Start: 07-27-2024 Procedure [facility] Start: 07-27-2024 [facility] Start: 07-12-2024 End: 07-12-2024 ambulatory 07/12/2024 9:45 AM EDT OT/PT/Speech Visit [facility] [address] [place] [address] Celia Sanders, PT 1 week [facility] Comment on above: 1 week Start: 07-11-2024 End: 07-11-2024 Patient encounter procedure 07/11/2024 1:30 PM EDT OT/PT/Speech Visit [facility] [address] [place] [id number] Rocio Schuster, DANIEL-COAT REPAIR INSPECTOR Consult [facility] Comment on above: Consult Start: 07-03-2024 End: 07-03-2024 ambulatory 07/03/2024 8:00 AM EDT OT/PT/Speech Visit [facility] [address] [place] [address] Celia Sanders, PT Walking [facility] Comment on above: Walking Start: 06-06-2024 End: 06-06-2024 Patient encounter procedure 06/06/2024 3:00 PM EDT Office Visit [facility] [address] [place] [address] Felicitas Chavez MD [address] [place] [address] overdue annual CAD srs [facility] Comment on above: overdue annual CAD srs Start: 05-26-2024 Patient discharge [facility] Start: 05-26-2024 [facility] Start: 05-25-2024 Aspiration precautions [facility] Start: 05-25-2024 Assessment of risk of venous thromboembolism [facility] Start: 05-25-2024 Cardiac monitoring [facility] Start: 05-25-2024 Catheterization of vein [facility] Start: 05-25-2024 Consultation [facility] Start: 05-25-2024 Elevation of head of bed [facility] Start: 05-25-2024 Exercises [facility] Start: 05-25-2024 Insertion of catheter into peripheral vein [facility] Start: 05-25-2024 Measuring intake and output [facility] Start: 05-25-2024 Notification of physician [facility] Start: 05-25-2024 Oxygen therapy [facility] Start: 05-25-2024 Patient referral to dietitian [facility] Start: 05-25-2024 Providing care according to standard [facility] Start: 05-25-2024 Provision of activity privileges [facility] Start: 05-25-2024 Referral to occupational therapist [facility] Start: 05-25-2024 Referral to service [facility] Start: 05-25-2024 Speech therapy assessment [facility] Start: 05-25-2024 Telemedicine consultation with patient [facility] Start: 05-25-2024 Tobacco use cessation education [facility] Start: 05-25-2024 Vital signs measurements [facility] Start: 05-25-2024 Following clinical pathway protocol [facility] Start: 05-25-2024 End: 05-25-2024 [facility] Start: 05-25-2024 Admission procedure [facility] Start: 05-25-2024 Hospital admission, emergency, from emergency room, medical nature [facility] Start: 05-25-2024 Oxygen therapy [facility] Start: 05-25-2024 End: 05-25-2024 [facility] Start: 05-25-2024 End: 05-25-2024 Patient encounter procedure 05/25/2024 12:20 PM EDT Office Visit Family [facility] [address] [place] [address] Rafael Durán MD [address] [place] [address] establish care [facility] Comment on above: establish care Start: 11-22-2023 End: 11-22-2023 ambulatory 11/22/2023 3:40 PM EDT [facility] [address] [address] Ciera Palm MD [address] [place], [place] [id number] Positive CHANDANA/Osteoarthritis Rheumatology Comment on above: Positive CHANDANA/Osteoarthritis Start: 11-22-2023 End: 02-21-2024 Urinalysis complete panel - Urine URINALYSIS, WITH MICROSCOPIC Lab Routine CHANDANA positive Expected: 11/22/2023, Expires: 02/21/2024 [facility] Work Phone: Comment on above: Expected: 11/22/2023, Expires: Start: 11-09-2023 End: 11-09-2023 Patient encounter procedure Radiology Comment on above: Chronic pain of both knees [M25.561, M25 .562, G89.29] Start: 11-04-2023 End: 02-03-2024 C reactive protein [Mass/volume] in Serum or Plasma [facility] Comment on above: Expected: 11/04/2023, Expires: Start: 11-04-2023 End: 02-03-2024 Cobalamin (Vitamin B12) [Mass/volume] in Serum or Plasma [facility] Comment on above: Expected: 11/04/2023, Expires: 4 Start: 11-04-2023 End: 02-03-2024 Comprehensive metabolic 2000 panel - Serum or Plasma [facility] Comment on above: Expected: 11/04/2023, Expires: Start: 11-04-2023 End: 02-03-2024 Extractable nuclear Ab panel - Serum [facility] Comment on above: Expected: 11/04/2023, Expires: Start: 11-04-2023 End: 02-03-[address]24 [address] in Blood [facility] Work Phone: Comment on above: Expected: 11/04/2023, Expires: Start: 11-04-2023 End: 02-03-2024 Thyrotropin [Units/volume] in Serum or Plasma THYROID STIMULATING HORMONE Lab Routine CHANDANA positive Expected: 11/04/2023, Expires: 02/03/2024 [facility] Comment on above: Expected: 11/04/2023, Expires: Start: 10-29-2023 DIABETES SCREEN DIABETES SCREEN [facility] Start: 10-24-2023 Covid-19 Vaccine ( season) Covid-19 Vaccine () [facility] Start: 10-24-2023 Covid-19 Vaccine ( season) Covid-19 Vaccine () [facility] Start: 10-24-2023 Influenza vaccination [facility] Start: 08-09-2023 End: 08-09-2023 Patient encounter procedure 08/09/2023 8:15 AM EDT Office Visit Orthopaedics [address] [place] [address] Ramirez Thomas MD [address] [place] [address] bilateral knee pain [facility] Comment on above: bilateral knee pain Start: 10-23-2022 Covid-19 Vaccine () Covid-19 Vaccine () [facility] Start: 10-23-2022 Influenza vaccination [facility] Start: 07-03-2022 Blood chemistry [facility] Start: 07-03-2022 End: 07-03-2022 [facility] Start: 05-15-2022 PROSTATE CANCER SCREENING DISCUSSION PROSTATE CANCER SCREENING DISCUSSION [facility] Start: 05-15-2022 Prostate specific antigen measurement Prostate Cancer Screening Discussion [facility] Start: 11-10-2021 Patient referral [facility] Work Phone: Start: 10-23-2021 Hepatitis B surface antibody level LDL CHOLESTEROL [facility] Start: 10-23-2021 Influenza vaccination INFLUENZA (#1) [facility] Start: 10-21-2021 Patient referral [facility] Work Phone: Start: 08-29-2021 [facility] Work Phone: Start: 08-29-2021 Patient referral [facility] Work Phone: Start: 10-23-2020 Influenza vaccination INFLUENZA (#1) [facility] Start: 05-15-2017 SHINGRIX VACCINE (1 of 2) SHINGRIX VACCINE (1 of 2) [facility] Start: 04-02-2016 Urine microalbumin profile DTaP,Tdap,Td Vaccine (1 - Tdap) [facility] Start: 05-15-2012 COLOGUARD (FIT-DNA) COLOGUARD (FIT-DNA) [facility] Start: 05-15-2012 Colonoscopy COLONOSCOPY [facility] Start: 05-15-2012 COLORECTAL CANCER SCREENING COLORECTAL CANCER SCREENING [facility] Start: 05-15-[address] COLONOGRAPHY [facility] Start: 05-15-2012 FECAL OCCULT BLOOD FECAL OCCULT BLOOD [facility] Start: 05-15-2012 Prostate specific antigen measurement Prostate Cancer Screening Discussion [facility] Start: 05-15-2012 Screening for malignant neoplasm of colon [facility] Start: 05-15-2012 SIGMOIDOSCOPY SIGMOIDOSCOPY [facility] Start: 05-15-1986 Hepatitis B Vaccine (1 of 3 - 19+ 3-dose series) Hepatitis B Vaccine (1 of 3 - 19+ 3-dose series) [facility] Start: 05-15-1986 Pneumococcal Vaccine: 50+ (1 of 2 - PCV) Pneumococcal Vaccine: 50+ (1 of 2 - PCV) [facility] Start: 05-15-1986 Urine microalbumin profile [facility] Start: 05-15-1985 ANNUAL PCP TEAM CHRONIC DISEASE VISIT ANNUAL PCP TEAM CHRONIC DISEASE VISIT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 Hospital Medicine Author Type: Physician Type: Progress Notes Filed: 06/10/2024 18:18 Note Text: DEPARTMENT OF HOSPITAL MEDICINE PROGRESS NOTE SERVICE DATE: 06/10/2024 SERVICE TIME: 6:10 PM Hospital Medicine/Primary Attending: vA Coronado DO NIGHT AND WEEKEND COVERAGE: [place] COVERAGE: After 7pm, please call cross cover pager #[phone] Subjective INTERVAL HPI: 59 y/o male with PMHx of CAD, arthritis, HTN, HLD who presented for evaluation of progressive lethargy, weakness, dizziness and disequilibrium. Patient underwent negative non contrast MRI at [facility] to rule out stroke. He was being treated with valium, meclizine and scopolamine patch for his symptoms between his ENT and PCP. He was evaluated by neurology this admission and planned for MRI brain and LP, paraneoplastic panel also sent. MEDICATIONS: Reviewed Objective PHYSICAL EXAM: BP 125/76 Pulse 70 Temp (Src) 97.9 (Oral) Resp 19 Ht 6' 1" (1.85m) Wt 203 lb (92.1kg) SpO2 93% [...] June 10, 2024 TIME: 6:10 PM etx [id number] Regional Hospital04-19-2025 NoteHNO ID: [id number] Author: PETR GRIMALDO APRN.CNP Service: Neurology General Author Type: Nurse Practitioner Type: Plan of Care Filed: 06/10/2024 12:04 Note Text: Chart reviewed. MRI brain, LP, and labs all pending. Will follow up as workup is available. Please call with questions. Petr Grimaldo CNP Neurology/Neurocritical Care [facility] [facility] 10[facility] [id number] (AGENT OF COVID-19) RNA: Not detected INFLUENZA A RNA: Not detected INFLUENZA B RNA: Not detected RESPIRATORY SYNCYTIAL VIRUS (RSV) RNA: Not detectedHoulton Regional HospitalComment on above:Performed By: #### [id number] ####[facility] LABORATORYCLIA [id number] [address] OF [id number] Instructions* Patient Education - Hetaher Dubois RN - 06/06/2024 3:40 PM EDT Patient educated on 48 hour holter monitor, and verbalizes understanding. [facility]04-15-2025 Miscellaneous Notes* Patient Education - Heather Dubois RN - 06/06/2024 3:40 PM EDT Patient educated on 48 hour holter monitor, and verbalizes understanding. [facility]-2025 NoteHNO ID: [id number] Author: HEATHER DUBOIS RN Service: ? Author Type: Registered Nurse Type: Patient Education Filed: 06/06/2024 16:11 Note Text: Patient educated on 48 hour holter monitor, and verbalizes understanding.[facility]04-15-2025 NoteHNO ID: [id number] Author: FELICITAS CHAVEZ MD Service: ? Author [...] he had an exercise stress echo at [facility] and was referred here to see a planner intern after that. I do not have any records from his PCPs office. 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 He underwent four-vessel CABG on 10/25/[address] Alonso. Postop course was uneventful. He has been enrolled in cardiac rehab at [facility]. I received notification from them that [...] evaluation. He said he went to the [facility] ER on Wednesday. He said they did EKG and blood work and sent him home to follow-up with a planner intern. 10/15/2021: Patient was started on Imdur at [...] breath gets worse. He recently saw a cafe manager who did a lung cancer screening CAT scan. Additionally he also had PFTs done recently and is due to see the cafe manager in follow-up next week. 02/23/2023: Patient denies [...] describing it as a persistent feeling of "wooziness" rather than true spinning. The vertigo is [...] He experiences severe fat (more content not included)...[facility]04-15-2025 History of Present illness Narrative* Felicitas Chavez [...] he had an exercise stress echo at [facility] and was referred here to see a planner intern after that. I do not have any records from his PCPs office. 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 He underwent four-vessel CABG on 10/25/[address] Alonso. Postopcourse was uneventful. He has been enrolled in cardiac rehab at [facility]. I received notification from them that [...] evaluation. He said he went to the [facility] ER on Wednesday. He said they did EKG and blood work and sent him home to follow-up with a planner intern. 10/15/2021: Patient was started on Imdur at [...] breath gets worse. He recently saw a cafe manager who did a lung cancer screening CAT scan. Additionally he also had PFTs done recently andis due to see the cafe manager in follow-up next week. 02/23/2023: Patient denies [...] describing it as a persistent feeling of "wooziness" rather than true spinning. The vertigo is [...] He experiences severe fatigue, describing himself as "exhausted all the time," even after 8-9 hours of sleep. He [...] Size: Regular Adult) Resp 16 Ht 6' 1" (1.854 m) Wt 202 lb (91.6 kg) [...] EKG Echocardiogram May 2024 at [facility]: EF 60%. 02/25/2021: EF 60%. 10/23/2020: EF [...] circumflex 70%. OM2 99% moderate disease. 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 Good collaterals from LAD and septals filling PDA and RPL retrogradely. CABG 10/25/2020: WELLS to LAD, SVG to diagonal, OM1 and PDA of RCA ASSESSMENT/PLAN: 1. Hyperlipidemia, unspecified hyperlipidemia type (E78.5) Dyslipidemia (E78.5) LDL cholesterol level done earlier this month at [facility] is elevated at 160 mg/dL. Previously on Zetia, but medication was discontinued unclear why. - Restarted Zetia 10 mg once daily. Continue statins in the current dose. - Discussed potential addition of Repatha if LDL does not decrease to target level of 70 mg/dL. Will start once vertigo symptoms improve. - Ordered a 3-month supply of Zetia. 2. Coronary artery disease involving qagan tayagungin coronary artery of qagan tayagungin heart without angina pectoris(I25.10) Hx of CABG [...] chemical stress test to be performed at [facility]. 3. SHAH (dyspnea on exertion) (R06.09) Shortness of breath noted, particularly with increased activity. Recent EKG showed PVCs. Echocardiogram done at [facility] recently showed normal heart function. - Ordered [...] Continue beta blockers. TSH done recently at [facility] was normal. The patient consented to the use of Cinario software for draft documentation of the visit consistent with [facility] s Notice of Privacy Practices. Felicitas Chavez MD documented in [facility] encounterGen[facility] Hospital04-04-2025 Discharge summary Author Marcos Lovelace [facility] Note Date/Time May 26, 2024 1:49 pm [facility] Medical Records Department [address] [place] [address] Instructions for Home/Discharge Instructions 05/26/24 1342 MR#: [id number] Acct: [id number] Name: HELDERHAYDEN Christiano Rep #:[id number] : 1965 59 From: Marcos seo DO [...] Marcos Lovelace Primary Care Provider: Jess Rosas Starr Consulting Providers: Nilo Hill; Radha Leyva; Mariana [...] BID Referrals / Follow Up: Jess Rosas [facility], COTTAGE SUPERVISOR-C [Primary Care Provider] - Disposition Disposition (needs filled in before D/C Order can be placed): Home, Self Care 05/26/24 9350<Electronically signed by Marcos Lovelace DO>Marcos Lovelace DO CC: Jie Palacio; Hanna Hammond; COTTAGE SUPERVISORAlbertC Jess Rosas; Alvin Ward; Ashanti Leslie MD; [...] Ravi Fonseca MD ~ Signed [facility] Work Phone: 1(439) 384-127004-04-2025 Discharge summary Author Marcos [facility] Note Date/Time May 26, 2024 1:49 pm [facility] Medical Records Department [address] [place] [address] Discharge Summary 05/26/24 1342 MR#: [id number] Acct: [id number] Name: HAYDEN PENDLETON Rep #:[id number] : 1965 59 From: Marcos seo DO PCP: SEBASTIÁN Pathak Status:ADM DAJA Location: [place] [address] Providers Date of Admission: 05/25/24 Date of [...] 59-year-old male who presented to [facility] ED on 05/25/2024 with persistent vertigo. Short hospital course as noted below. Patient discharged home in stable condition on . Persistent vertigo, CVA ruled out ? [...] 45.5 L, Lymph % (Auto) 42.0 H, Duval % (Auto) 6.0, Eos % (Auto) 4.9, [...] Marcos Lovelace Primary Care Provider: Jess Rosas [facility] Consulting Providers: Nilo Hill; Radha Leyva; [...] BID Referrals / Follow Up: Jess Rosas, GEORGI-C [Primary Care Provider] - Disposition Disposition (needs filled in before D/C Order can be placed): Home, Self Care Charges/Coding Visit Charges Inpatient E&M: 74102 Disch Hosp >30min 05/26/24 1540 <Electronically signed by Marcos Lovelace DO> Cosigner Signature (if applicable): CC: SEBASTIÁN Rosas; Dr. Marcos Lovelace DO~ Signed [facility] Work Phone: [phone] 174-141704-04-2025 Discharge summary [facility] Medical Records Department [address] [place] [address] Instructions for Home/Discharge Instructions 05/26/24 1342 MR#: [id number] Acct: [id number] Name: HAYDEN PENDLETON Rep #:[id number] : 1965 59 From: Marcos seo DO [...] BID Referrals / Follow Up: Jess Rosas [facility], COTTAGE SUPERVISOR-C [Primary Care Provider] - Disposition Disposition (needs filled in before D/C Order can be placed): Home, Self Care 05/26/24 1350[facility] CC: Jie Palacio; Hanna Hammond; COTTAGE SUPERVISOR-C Jess Rosas; Alvin Ward; Ashanti Leslie MD; [...] Ravi Fonseca MD ~ Signed [facility]04-04-2025 Discharge summary [facility] Medical Records Department [address] [place] [address] Discharge Summary 05/26/24 1342 MR#: [id number] Acct: [id number] Name: HAYDEN PENDLETON Rep #:[id number] : 1965 59 From: Marcos seo DO PCP: SEBASTIÁN Pathak Status:ADM DAJA Location: [place] [address] Providers Date of Admission: 05/25/24 Date of [...] 59-year-old male who presented to [facility] ED on 05/25/2024 with persistent vertigo. Short [...] 45.5 L, Lymph % (Auto) 42.0 H, Duval % (Auto) 6.0, Eos % (Auto) 4.9, [...] Minimal chronic microvascular ischemic changes. Reading [facility] D/C Instructions DC O2, CPAP, BIPAP Needs [...] Marcos Lovelace Primary Care Provider: Jess Rosas [facility] Consulting Providers: Nilo Hill; Radha Leyva; [...] Referrals / Follow Up: Jess Rosas Starr, COTTAGE SUPERVISOR-C [Primary Care Provider] - Disposition Disposition (needs filled in before D/C Order can be placed): Home, Self Care Charges/Coding Visit Charges Inpatient E&M: 06948 Disch Hosp >30min 05/26/24 1540 Cosigner Signature (if applicable): CC: SEBASTIÁN Rosas; Dr. Marcos Lovelace, ~ Signed [facility]04-04-2025 [facility] Medical Records Department [address] [place] [address] Discharge Summary 05/26/24 1342 MR#: [id number] Acct: [id number] Name: HAYDEN PENDLETON Rep #: [id number] : 1965 59 From: Marcos Radu HAYNES PCP: SEBASTIÁN Pathak Status:ADM DAJA Location: [place] [address] Providers Date of Admission: 05/25/24 Date of Discharge: 05/26/24 Primary Care Physician: SEBASTIÁN Ptahak Consultations 05/25/24 15:48 Consult: Tele-Neurology Routine Consulting [...] 59-year-old male who presented to [facility] ED on 05/25/2024 with persistent vertigo. Short [...] Weight: 91 (more content not included)...[facility]04-03-2025 Progress note Author Ana Adan [facility] Note Date/Time May 25, 2024 8:05 pm [facility] Medical Records Department [address] [place] [address] Progress Note - Hospitalist 05/25/242004 MR#: [id number] Acct: [id number] Name: HAYDEN PENDLETON Rep #:[id number] : 1965 59 From: Ana Arellano MD PCP: SEBASTIÁN Pathak Status:ADM DAJA Location: [place] [address] Hospitalist Note MRI negative. 05/25/242004 <Electronically signed by Ana Arellano MD> Cosigner Signature (if applicable): CC: ~ Signed [facility] Work Phone: 1(865) 423-268604-03-2025 History and physical note Author Joi [facility] Note Date/Time May 25, 2024 7:08 pm [facility] Medical Records Department [address] [place] [address] H&P Exam - Hospitalist 05/25/24 1405 MR#: [id number] Acct: [id number] Name: HAYDEN PENDLETON Rep #:[id number] : 1965 59 From: Joi Woodson MD PCP: SEBASTIÁN Pathak Status:ADM DAJA Location: [place] [address] HPI - General General Date of Admission: [...] in the ED were Bp of 122/71, ME of 67, RR of 11 and oxygen sats of 97% onroom air. CBC showed Hb of 15.1, wbc of 7.4 and platelets of 304. INR was 0.9. Chemistry showed sodium of 140, potassium of 4.3 and bicarb of 25.4. Anion gap is 13. Initial troponin was 7. CTA head and neck showed plaque [id number] at theorigin of the right internal carotid artery causing <50% stenosis and atherosclerotic plaque formation at origin of the left internal carotid artery causing ~ 50% stenosis. He is being admitted to be managed for persistent vertigo to rule out a stroke. [facility] Medical History (Updated 05/25/24 @ 17:37 by [...] % (Auto) 51.3, Lymph % (Auto) 37.0, Duval % (Auto) 5.5, Eos % (Auto) 4.3, [...] artery causing approximately 50% stenosis. Reading Location: [facility] Assessment & Plan Assessment/Plan (1) Vertigo: PLAN: [...] elects to be full code. * Total klfy-rc-pfwt time 16 minutes. Charges/Coding Visit Charges Inpatient E&M: 62322 Init Hosp L2 Procedures Hospitalists Procedures: 21584 Advncd Care Plan 30 Min 05/25/241907 <Electronically signed by Joi Woodson MD> Cosigner Signature (if applicable): CC: COTTAGE SUPERVISOR-C Jess Rosas; Dr. Joi Woodson MD~ Signed [facility] Work Phone: [phone]) 816-222004-03-2025 Progress note [facility] Medical Records Department [address] [place] [address] Progress Note - Hospitalist 05/25/242004 MR#: [id number] Acct: [id number] Name: HAYDEN PENDLETON Christiano Rep #:[id number] : 1965 59 From: Ana Arellano MD PCP: SEBASTIÁN Pathak Status:ADM DAJA Location: [place] [address] Hospitalist Note MRI negative. 05/25/242004 Cosigner Signature (if applicable): CC: ~ Signed [facility]04-03-2025 Discharge summary Author Chucky Le [facility] Note Date/Time May 25, 2024 5:38 pm [facility] Medical Records Department [address] [place] [address] Emergency Department Summary 05/25/24 MR#: [id number] Acct: [id number] Name: HAYDEN PENDLETON Rep #:[id number] : 1965 59 From: Chucky Landon PCP: SEBASTIÁN Pathak Status:ADM DAJA Location: [place] [address] HPI History of Present Illness Chief Complaint: [...] taken today. Prior similar symptoms: No PFSH PFS Medical History (Updated 05/25/24 @ 17:37 by [...] clinician: Hospitalist This note was generated with SandLinks dictation software. It may contain incorrectwords, spelling, [...] % (Auto) 51.3 Lymph % (Auto) 37.0 Duval % (Auto) 5.5 Eos % (Auto) 4.3 [...] artery causing approximately 50% stenosis. Reading Location: [facility] Discharge Plan Dx/Rx/DC Orders Clinical Impression: Vertigo, CAD (coronary artery disease), Bilateral carotid artery disease Disposition Disposition: Acute Care Hospital [facility] Discharge Date/Time: 05/25/24 14:37 What to do if you have Problems For any increased pain, shortness of breath, bleeding, nausea or vomiting, chestpain, or any unexpected problems, contact your Primary Care Provider. Call [facility] ([phone]) or report to the closest Emergency Room. Call 911 if necessary. 05/25/24 6569 <Electronically signed by Chucky Landon> Cosigner Signature (if applicable): CC: SEBASTIÁN Rosas ~ Signed [facility] Work Phone: 1(776) 587-836104-03-2025 History and physical note [facility] Medical Records Department [address] [place] [address] H&P Exam - Hospitalist 05/25/24 1405 MR#: [id number] Acct: [id number] Name: HAYDEN PENDLETON Rep #:[id number] : 1965 59 From: Joi Woodson MD PCP: SEBASTIÁN Pathak Status:ADM DAJA Location: [place] [address] HPI - General General Date of Admission: [...] in the ED were Bp of 122/71, ME of 67, RR of 11 and oxygen sats of 97% onroom air. CBC showed Hb of 15.1, wbc of 7.4 and platelets of 304. INR was 0.9. Chemistry showed sodium of 140, potassium of 4.3 and bicarb of 25.4. Anion gap is 13. Initial troponin was 7. CTA head and neck showed plaque [id number] at theorigin of the right internal carotid artery causing <50% stenosis and atherosclerotic plaque formation at origin of the left internal carotid artery causing ~ 50% stenosis. He isbeing admitted to be managed for persistent vertigo to rule out a stroke. [facility] Medical History (Updated 05/25/24 @ 17:37 by [...] % (Auto) 51.3, Lymph % (Auto) 37.0, Duval % (Auto) 5.5, Eos % (Auto) 4.3, [...] artery causing approximately 50% stenosis. Reading Location: [facility] Assessment & Plan Assessment/Plan (1) Vertigo: PLAN: [...] elects to be full code. * Total tftp-pe-rnru time 16 minutes. Charges/Coding Visit Charges Inpatient E&M: 01364 Init Hosp L2 Procedures Hospitalists Procedures: 34516 Advncd Care Plan 30 Min 05/25/24 1908 Cosigner Signature (if applicable): CC: COTTAGE SUPERVISOR-C Jess Rosas; Dr. Joi Woodson MD~ Signed [facility]04-03-2025 Discharge summary [facility] Medical Records Department [address] [place] [address] Emergency Department Summary 05/25/24 MR#: [id number] Acct: [id number] Name: HAYDEN PENDLETON Rep #:[id number] : 1965 59 From: Chucky Landon PCP: SHIKHA PathakC Status:ADM DAJA Location: [place] [address] HPI History of Present Illness Chief Complaint: [...] clinician: Hospitalist This note was generated with SandLinks dictation software. It may contain incorrectwords, spelling, [...] % (Auto) 51.3 Lymph % (Auto) 37.0 Duval % (Auto) 5.5 Eos % (Auto) 4.3 [...] artery causing approximately 50% stenosis. Reading Location: [facility] Discharge Plan Dx/Rx/DC Orders Clinical Impression: Vertigo, CAD (coronary artery disease), Bilateral carotid artery disease Disposition Disposition: Acute Care Hospital [facility] Discharge Date/Time: 05/25/24 14:37 What to do if you have Problems For any increased pain, shortness of breath, bleeding, nausea or vomiting, chestpain, or any unexpected problems, contact your Primary Care Provider. Call [facility] ([phone]) or report tothe closest Emergency Room. Call 911 if necessary. 05/25/24 9225 Cosigner Signature (if applicable): CC: SEBASTIÁN Rosas ~ Signed [facility]04-03-2025 Evaluation note* Diagnosis Onset Date Resolution Status Admit Date Vertigo resolved May 25 2:14pm [facility] Work Phone: 1(888) 230-570604-03-2025 Evaluation note* Diagnosis Onset Date Resolution Status Admit Date Vertigo resolved May 25 2:14pm Anxiety acute July 05, 2024 8:12am Chronic fatigue chronic July 05, 2024 8:12am Depression chronic July 05, 2024 8:12am Gastroesophageal reflux disease white sourer patt July 05, 2024 8:12am Vertigo resolved July 05, 2024 8:12am [facility] Work Phone: 1(519) [phone] Evaluation note* Diagnosis Onset Date Resolution Status [...] deleted July 05, 2024 8:12am [facility] Work Phone: [phone] Evaluation note* Diagnosis Onset Date Resolution Status [...] Fatigue noneactive August 03 8:29am [facility] Work Phone: [phone]) [phone] Evaluation note* Diagnosis Onset Date Resolution Status [...] Chronic fatigue chronic August 29, 2024 2:49pm [facility] Work Phone: 1(344) 716-676604-03-2025 Radiology Diagnostic study note [facility] Imaging Services [address] [place] [address] CTA Head AND Neck W/ Contrast MR#: [id number] Acct: [id number] Name: HAYDEN PENDLETON Rep #: [id number] : 1965 M 59 From: Rakan Trammell MD PCP: SEBASITÁN Pathak Status: REG ER Study:CTA Head AND Neck W/ Contrast Date of E xam: 05/25/24 Exam# [id number] Ordering Dr: Chucky Maya DO ADDENDUM by Dr. Robinson Trammell MD on 05/25/24 at 1416 This is an addendum report. The unenhanced CT scan of the head is unremarkable. Reading Location: [place] [address] 05/25/24 1417 Date cc: COTTAGE SUPERVISOR-C Jess Rosas; Dr. Chucky Maya DO ~* Signed [...] RIGHT Vertebral: Unremarkable. LEFT Vertebral: Unremarkable. Anatomy: [place] of [place] anatomy is normal. Aneurysm or [...] artery causing approximately 50% stenosis. Reading Location: [place] [address] CC: SEBASTIÁN Rosas; Dr. Chucky Maya, DO ~ Overlock Operator: Signed [facility]02-17-2025 Telephone encounter Note* Telephone Encounter - Ronda Tolentino MA - 04/10/2024 10:35 AM EST Patient's request for medication is as follows: Requested Prescriptions Pending Prescriptions Disp Refills metoprolol tartrate, short acting, (LOPRESSOR) 25 mg tablet [Pharmacy Med Name: Metoprolol Bkpmvhrf78 MG Oral Tablet] 180 tablet 0 Sig: Take 1 tablet by mouth twice daily Patient was last seen on : 02/23/23 Next Scheduled on : 06/06/24 Prescription(s) as above. Please process accordingly. Ronda Tolentino MA [facility]02-17-2025 Miscellaneous Notes* Telephone Encounter - Ronda Tolentino MA - 04/10/2024 10:35 AM EST Patient's request for medication is as follows: Requested Prescriptions Pending Prescriptions Disp Refills metoprolol tartrate, short acting, (LOPRESSOR) 25 mg tablet [Pharmacy Med Name: Metoprolol Ffeypury80 MG Oral Tablet] 180 tablet 0 Sig: Take 1 tablet by mouth twice daily Patient was last seen on : 02/23/23 Next Scheduled on : 06/06/24 Prescription(s) as above. Please process accordingly. Ronda Tolentino MA documented in this encounterGen[facility] Hospital01-29-2025 Telephone encounter Note * Telephone Encounter [...] 06/06/2024 Prescription(s) as above. Please process accordingly. hCeri Logan MA [facility]01-29-2025 Miscellaneous Notes* Telephone Encounter - Cheri [...] accordingly. Cheri Logan MA documented in this encounterGenesis Hospital11-18-2024 Telephone encounter Note * Telephone Encounter [...] above. Please process accordingly. Damaris Latham RN [facility]11-18-2024 Miscellaneous Notes* Telephone Encounter - Damaris [...] accordingly. Damaris Latham RN documented in this encounterGenesis Hospital11-15-2024 Telephone encounter Note * Telephone Encounter - Maira Pope - 01/07/2024 7:27 AM EST Scheduled patient with Dr. Chavez for 06-06-24 at 3 pm in [place]. [employer] message and letter to home address. Thanks Maira Pope [facility]11-15-2024 Telephone encounter Note* Telephone Encounter - Celia Smallwood LPN - 01/07/2024 7:13 AM EST Last seen 02/23/2023. Please call patient with annual appointment. Thank you! Celia Smallwood LPN [facility]11-15-2024 Telephone encounter Note* Telephone Encounter - [...] above. Please process accordingly. Celia Smallwood LPN [facility]11-15-2024 Miscellaneous Notes* Telephone Encounter - Celia [...] accordingly. Celia Smallwood LPN documented in this encounterGenesis Hospital09-30-2024 NoteHNO ID: [id number] Author: CIERA PALM MD Service: ? Author Type: Physician Type: Progress Notes Filed: 11/22/2023 16:59 Note Text: Rheumatology Outpatient Clinic Date of Service: 11/22/2023 Patient: Hayden Pendleton Medical Record: [id number] Primary Care Physician: Quang Hanson MD Referring Provider: Ramirez Thomas [address] [facility] [address] Last Rheumatology visit: 11/04/2023 (with Ciera Palm) [...] diagnosed years ago based on biopsy by director of recruiting, has not been on any medications and [...] Nosebleeds, Mouth sores, Troubl (more content not included)...[facility]09-30-2024 History of Present illness Narrative* Ciera Palm MD - 11/22/2023 4:03 PM EDT Images from the original note were not included. Rheumatology Outpatient Clinic Date of Service: 11/22/2023 Patient: Hayden Pendleton Medical Record: [id number] Primary Care Physician: Quang Hanson MD Referring Provider: Ramirez Santos[address] [facility] [address] Last Rheumatology visit: 11/04/2023 (with Ciera Palm) [...] diagnosed years ago based on biopsy by director of recruiting, has not been on any medications and [...] <0.2 Sm Antibody Negative Negative Negative Ribosomal WORKER'S COMPENSATION CLAIMS EXAMINER Ab <1.0 AI <0.2 <0.2 Ribosomal WORKER'S COMPENSATION CLAIMS EXAMINER Qualitative Negative Negative Negative Chromatin Ab <1.0 AI <0.2 <0.2 Chromatin Ab Qual Negative Negative Negative SSA Antibody Qual Negative Negative Negative Anti-SSA <1.0 AI <0.2 <0.2 Anti-SSB <1.0 AI <0.2 <0.2 WORKER'S COMPENSATION CLAIMS EXAMINER Antibody QUAL Negative Negative Negative Scleroderma Ab [...] inflammatory arthropathy in either hand or foot. Overlock Operator: JACKI Transcribe Date/Time: Nov 13 2023 4:18P... [...] Cervical spine degenerative changes as described above. Overlock Operator: JACKI Transcribe Date/Time: Nov 11 2023 2:40P [...] screening Defer to PCP Orders this visit: [facility] on 11/22/23 URINALYSIS, WITH MICROSCOPIC Return [...] was partially generated with the assistance of SandLinks voice recognition software. An attempt was made to correct any dictation errors however there may be some incorrect words, spellings, and punctuation. Ciera Palm MD [facility] Rheumatology Associate Staff [facility] Label Stitchergeneration manager [facility] documented in this encounterGenesis Hospital09-17-2024 History of Present illness Narrative* Kay [...] PATIENT PRESENTS WITH AN IMPLANTABLE OR ATTACHED BEATER ENGINEER: No RADIOLOGY DEPARTMENT: General X-ray: Exam(s) Completed: Spine X-Ray(s): Cervical AP / LAT / OBL , Thoracic, and Lumbar AP / LAT / L5-S1 Lower Extremity X-Ray(s): Foot, Bilateral Upper Extremity X-Ray(s): Hand, bilateral si joints 2v PERIPHERAL IV DATA: Not applicable SIGNED BY: DEO Kuhn) November 09, 2023 3:57 PM documented in this encounterGenesis Hospital09-17-2024 NoteHNO ID: [id number] Author: KAY GALEAS RT(R) Service: Radiology Author [...] PATIENT PRESENTS WITH AN IMPLANTABLE OR ATTACHED BEATER ENGINEER: No RADIOLOGY DEPARTMENT: General X-ray: Exam(s) Completed: Spine X-Ray(s): Cervical AP / LAT / OBL , Thoracic, and Lumbar AP / LAT / L5-S1 Lower Extremity X-Ray(s): Foot, Bilateral Upper Extremity X-Ray(s): Hand, bilateral si joints 2v PERIPHERAL IV DATA: Not applicable SIGNED BY: Kay Galeas, (R) November 09, 2023 3:57 [facility]09-12-2024 History of Present illness Narrative* Ciera Palm MD - 11/04/2023 9:40 AM EDT Images from the original note were not included. Rheumatology Outpatient Clinic Date of Service: 11/04/2023 Patient: Hayden Pendleton Medical Record: [id number] Primary Care Physician: Quang Hanson MD Referring Provider: Ramirez Thomas [address] [facility] [address] Last Rheumatology visit: None at [facility] Chief complaint: Joint Pain and Positive [...] diagnosed years ago based on biopsy by director of recruiting, has not been on any medications and has not been following with GI recently. Also reports having vertigo on and off, mostly positional, has gotten better sometimes with Hansel'neuvfloyd, has seen ENT locally. Also reports of [...] AI <0.2 Sm Antibody Negative Negative Ribosomal WORKER'S COMPENSATION CLAIMS EXAMINER Ab <1.0 AI <0.2 Ribosomal WORKER'S COMPENSATION CLAIMS EXAMINER Qualitative Negative Negative Chromatin Ab <1.0 AI <0.2 Chromatin Ab Qual Negative Negative SSA Antibody Qual Negative Negative Anti-SSA <1.0 AI <0.2 Anti-SSB <1.0 AI <0.2 WORKER'S COMPENSATION CLAIMS EXAMINER Antibody QUAL Negative Negative Scleroderma Ab Qual [...] which included preparing to see the patient, [id number] patient care, completing clinical documentation, obtaining and/or reviewing separately obtained history, performing a medically appropriate examination, counseling and educating the pat ient/family/caregiver, and ordering medications, tests, or procedures. This note was partially generated with the assistance of [employer] voice recognition software. An attempt was made to correct any dictation errors however there may be some incorrect words, spellings, and punctuation. Ciera Palm MD [facility] Rheumatology Associate Staff [facility] Label Stitchergeneration manager [facility] documented in this encounterGenesis Hospital09-12-2024 NoteHNO ID: [id number] Author: CIERA PALM MD Service: ? Author Type: Physician Type: Progress Notes Filed: 11/04/2023 14:23 Note Text: Rheumatology Outpatient Clinic Date of Service: 11/04/2023 Patient: Hayden Pendleton Medical Record: [id number] Primary Care Physician: Quang Hanson MD Referring Provider: Ramirez Thomas [address] [facility] [address] Last Rheumatology visit: None at [facility] Chief complaint: Joint Pain and Positive [...] diagnosed years ago based on biopsy by director of recruiting, has not been on any medications and [...] GENITOURINARY: Negative for: Dysuria (more content not included)...[facility]09-01-2024 Miscellaneous Notes* Telephone Encounter - Maira Pope - 01/07/2024 7:27 AM EST Scheduled patient with Dr. Chavez for 06-06-24 at 3 pm in [place]. [employer] message and letter to home address. Thanks Maira Pope * Telephone Encounter - Celia Smallwood LPN - 01/07/2024 7:13 AM EST Last seen 02/23/2023. Please call patient with annual appointment. Thank you! Celia Smallwood LPN documented in this encounterGen[facility] Hospital06-19-2024 Telephone encounter Note * Telephone Encounter - Magy Aviles MA - 08/11/2023 8:54 AM EDT Please sign consult for Senior Restaurant Manager. [facility]06-19-2024 Miscellaneous Notes* Telephone Encounter - Magy Aviles MA - 08/11/2023 8:54 AM EDT Please sign consult for Senior Restaurant Manager. documented in this encounterGenesis Hospital06-17-2024 History of Present illness Narrative* Ramirez Thomas MD - 08/09/2023 8:54 AM EDT Ramirez Thomas MD Department of Orthopaedics Orthopaedics [address] [facility] [address] Dept: [phone] Dept August 09, 2023 CHIEF COMPLAINT: New and Pain of the Left Knee and New and Pain of the Right Knee HPI Patient here today with his significant other for bilateral knee pain x 10- 15 years. 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 Denies any injury. New [facility] today at [facility]. ASSESSMENT: M25.561, M25.562, G89.29 Chronic pain [...] subjectively. IMAGING: Impression IMPRESSION: Minimal degenerative change. Overlock Operator: PSCDavid Transcribe Date/Time: Aug 13 2023 7:56A [...] (see HPI) Psych (no depression, anxiety) Ramirez Thomas, MD documented in this encounterGenesis Hospital06-17-2024 History of Present illness Narrative* Manda [...] PATIENT PRESENTS WITH AN IMPLANTABLE OR ATTACHED BEATER ENGINEER: No RADIOLOGY DEPARTMENT: General X-ray: Exam(s) Completed: Lower Extremity X- Ray(s): Knee, AP / Lat / Tunne / Merchant Bilateral and Wt. Bearing PERIPHERAL IV DATA: Not applicable SIGNED BY: RT Fabián(R) August 09, 2023 1:42 PM documented in this encounterGenesis Hospital05-28-2024 Telephone encounter Note * Telephone Encounter [...] above. Please process accordingly. Harrison Silveira LPN [facility]05-28-2024 Miscellaneous Notes* Telephone Encounter - Harrison [...] accordingly. Harrison Silveira LPN documented in this encounterGenesis Hospital11-07-2023 Miscellaneous Notes* Telephone Encounter - Celia Smallwood LPN - 12/29/2022 7:39 AM EST Patient's request for medication is as follows: Requested Prescriptions Pending Prescriptions Disp Refills metoprolol tartrate, short acting, (LOPRESSOR) 25 mg tablet [Pharmacy Med Name: Metoprolol [id number] MG Oral Tablet] 60 tablet 1 Sig: Take 1 tablet by mouth twice daily Last seen 10/15/2021. Over due follow up scheduled for 02/23/2023. Prescription(s) as above. Please process accordingly. Celia Smallwood LPN documented in this encounterGenesis Hospital09-18-2023 Miscellaneous Notes* Telephone Encounter - Michelle March - 11/09/2022 1:50 PM EDT I called to schedule and overdue follow up with Dr. Chavez.M Pt. scheduled for 02/23/2023 at 11:40 in [facility] [place].Please update Pt. insurance. Michelle March November 09, 2022 1:53 PM * Telephone Encounter - Harrison Silveira LPN - 11/09/2022 11:11 AM EDT Last seen 10/15/2021. Clerical to call pt to schedule pt. Harrison Silveira LPN documented in this encounterGenesis Hospital09-18-2023 Miscellaneous Notes* Telephone Encounter - Harrison [...] accordingly. Harrison Silveira LPN documented in this encounterGenesis Hospital08-09-2023 Miscellaneous Notes* Telephone Encounter - Hayden Lindquist RN - 09/30/2022 10:15 AM EDT Pended refill for Imdur 30 mg and lopressor 25 mg CECILIA 10/15/22 [facility] 11/05/21 documented in this encounterGenesis Hospital05-12-2023 Hospital Discharge instructions Additional Instructions Shower, warm bath and massage for your muscle spasm around your left shoulder blade. Skelaxin the muscle relaxant 1 pill 3 times a day for 7 days. Should start feeling better in 3 to 4 days. Limited Percocet for pain. Follow-up with your doctor.[facility] Work Phone: 1(192) 125-734404-07-2023 Miscellaneous Notes* Telephone Encounter - Mohini Alexander LPN - 05/29/2022 10:38 AM EDT Patient's request for medication is as follows: Requested Prescriptions Pending Prescriptions Disp Refills metoprolol tartrate, short acting, (LOPRESSOR) 25 mg tablet [Pharmacy Med Name: Metoprolol Fuztqsnb76 MG Oral Tablet] 90 tablet 0 Sig: Take 1 tablet by mouth twice daily Last seen 04/23/21.clerical notified for follow -up appt. Prescription(s) as above. Please process accordingly. Mohini Alexander LPN documented in this encounterGenesis Hospital04-07-2023 Miscellaneous Notes* Telephone Encounter - Hayden [...] a prescription refill to same pharmacy [facility]. Could someone assist him? Thank you, Estefani Butt documented in this encounterGenesis Hospital10-17-2022 Miscellaneous Notes* Telephone Encounter - Celia [...] accordingly. Celia Smallwood LPN documented in this encounterGenesis Hospital09-21-2022 Miscellaneous Notes* Telephone Encounter - Birgit Anderson RN - 11/12/2021 4:52 PM EDT Letter faxed for cardiac appointment and cardiac catheterization date to [facility] absence management for patient to be excused from work. Spoke with spouse and instructed her to have PCP complete the FMLA paperwork for his shortness of breath since cardiac workup is negative. Birgit Anderson RN * Telephone Encounter - Birgit Anderson RN - 11/12/2021 3:17 PM EDT Received [facility] paperwork from [facility] Absence Management [facility] for Dr. Chavez. Spoke with spouse whostated patient needs an excuse for Hayden to be off work for his cardiac appointment and the cardiac catheterization he had completed. Letter needs to be faxed to [phone]. Birgit Anderson RN documented in this encounterGenesis Hospital09-14-2022 Procedure note* Anette Garcia MD - [...] the wrist with 1% lidocaine. A pre-flushed 6-Bengali sheath was inserted into the femoral artery via the Seldinger technique without complications. Retrograde percutaneous diagnostic coronary angiography and left ventriculography were performed using a Loree left 4 catheter, a 3-D RC catheter, and an angled pigtail catheter. There were no complications of the procedure. Findings: Angiography: LEFT MAIN: Severe distal left main 90% . LEFT CIRCUMFLEX: Severe qagan tayagungin disease. LEFT ANTERIOR DESCENDING: Moderate proximal disease. [...] 2021 TIME: 11:32 AM documented in this encounterGenesis Hospital09-14-2022 History and physical note * Anette [...] 2021 TIME: 9:23 AM documented in this encounterGenesis Hospital09-12-2022 Miscellaneous Notes* Telephone Encounter - Peggy Sharma - 11/03/2021 2:51 PM EDT Spoke with . * Telephone Encounter - Peggy Jacobsune - 11/03/2021 2:51 PM EDT ----- Message from Felicitas Chavez MD sent at 11/02/2021 3:52 PM EDT ----- Please inform Hayden of normal blood tests. Thanks, Felicitas Chavez MD documented in this encounterGenesis Hospital09-01-2022 Miscellaneous Notes* Telephone Encounter - Felicitas [...] much. Felicitas Chavez MD documented in this encounterGenesis Hospital08-24-2022 History of Present illness Narrative* Felicitas [...] he had an exercise stress echo at [facility] and was referred here to see a planner intern after that. I do not have any records from his PCPs office. 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 He underwent four-vessel CABG on 10/25/[address] Alonso. Postopcourse was uneventful. He has been enrolled in cardiac rehab at [facility]. I received notification from them that [...] evaluation. He said he went to the [facility] ER on Wednesday. He said they did EKG and blood work and sent him home to follow-up with a planner intern. 10/15/2021: Patient was started on Imdur at [...] breath gets worse. He recently saw a cafe manager who did a lung cancer screening CAT scan. Additionally he also had PFTs done recently andis due to see the cafe manager in follow-up next week. PAST MEDICAL HISTORY [...] circumflex 70%. OM2 99% moderate disease. 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 Good collaterals from LAD and septals filling [...] He has a follow-up appointment with his cafe manager next week. In all likelihood his lung symptoms are secondary to pulmonary condition. If the cafe manager does not feel this to be the [...] visit. Felicitas Chavez MD documented in this encounterGenesis Hospital07-19-2022 Miscellaneous Notes* Telephone Encounter - Hayden [...] Thanks, Felicitas Chavez MD documented in this encounterGenesis Hospital07-19-2022 Miscellaneous Notes* Telephone Encounter - Hayden [...] he does have access to a nurse transportation sales consultant to be triaged, to seek out that service as well. He does not receive primary care through so I could not nurse triage him. Thank you, Estefani Butt documented in this encounterGenesis Hospital07-18-2022 NoteHNO ID: [id number] Author: Jacobo Michel, CT Service: Nuclear Medicine Author Type: Technologist [...] STATUS: Discontinued PROCEDURE TYPE: NM Stress: 12.5mCi Ov85i-Vmvhvfi was administered IV for Rest Imaging at 13:41 by BRI Douglas. 32.7 mCi Bz58i-Tbukbgf was administered IV for Stress Imaging at 14:28 by BRI Douglas PATIENT DISCHARGED TO: Ambulatory patient, left CO department area. A Diagnostic radioactive procedure has taken place, with no further precautions necessary other than routine body substance precautions. More information regarding radiation safety can be found using this link: [email or web address] %[email or web address]-%20Diagnostic%20Nuclear%20Medicine%20Procedures.pdf SIGNATURE: BRI Douglas PATIENT NAME: Hayden Pendleton DATE: September 08, 2021 TIME: 2:36 PM PAGER/CONTACT #:[phone] NoteHNO ID: [id number] Author: BRI Douglas Service: Nuclear Medicine Author [...] STATUS: Discontinued PROCEDURE TYPE: NM Stress: 12.5mCi Nl70l-Ykwgfvl was administered IV for Rest Imaging at 13:41 by BRI Douglas. 32.7 mCi Kj74p-Kfqxjoa was administered IV for Stress Imaging at 14:28 by BRI Douglas PATIENT DISCHARGED TO: Ambulatory patient, left NM department area. A Diagnostic radioactive procedure has taken place, with no further precautions necessary other than routine body substance precautions. More information regarding radiation safety can be found using this link: [email or web address] [email or web address]%20Nuclear%20Medicine%20Procedures.pdf SIGNATURE: BRI Douglas PATIENT NAME: Hayden Pendleton DATE: September 08, 2021 TIME: 2:38 PM PAGER/CONTACT #:[facility] [phone] History of Present illness Narrative* BRI Douglas [...] STATUS: Discontinued PROCEDURE TYPE: NM Stress: 12.5mCi Jq21g-Xkxyhaq was administered IV for Rest Imaging at 13:41 by BRI Douglas. 32.7 mCi Ko25f-Kgznpwf was administered IV for Stress Imaging at [...] POST EXAM PIV STATUS: Discontinued PROCEDURE TYPE: CO Stress: 12.5mCi Jq29v-Lzfphod was administered IV for Rest Imaging at 13:41 by BRI Douglas. 32.7 mCi We95p-Enxrdvg was administered IV for Stress Imaging at 14:28 by BRI Luis PATIENT DISCHARGED TO: Ambulatory patient, left CO department area. A Diagnostic radioactive procedure has taken place, with no further precautions necessary other than routine body substance precautions. More information regarding radiation safety can be found usingthis link: [email or web address] 20Diagnostic%20Nuclear%20Medicine%20Procedures.pdf SIGNATURE: BRI Douglas PATIENT NAME: Hayden Pendleton DATE: September 08, 2021 TIME: 2:36 PM PAGER/CONTACT #: documented in this encounterGenesis Hospital07-18-2022 Miscellaneous Notes* Result QuickNote - Felicitas [...] Thanks, Felicitas Chavez MD documented in this encounterGenesis Hospital07-15-2022 Miscellaneous Notes* Telephone Encounter - Vani Perdomo RN - 09/05/2021 2:35 PM EDT Left message regarding reminder for stress test on Wednesday and given instructions documented in this encounterGenesis Hospital07-13-2022 History of Present illness Narrative* Felicitas [...] he had an exercise stress echo at [facility] and was referred here to see a planner intern after that. I do not have any records from his PCPs office. 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 He underwent four-vessel CABG on 10/25/[address] Alonso. Postopcourse was uneventful. He has been enrolled in cardiac rehab at [facility]. I received notification from them that [...] evaluation. He said he went to the [facility] ER on Wednesday. He said they did EKG and blood work and sent him home to follow-up with a planner intern. PAST MEDICAL HISTORY Diagnosis Date Dyslipidemia HTN [...] circumflex 70%. OM2 99% moderate disease. 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 Good collaterals from LAD and septals filling [...] visit. Felicitas Chavez MD documented in this encounterGenesis Hospital07-08-2022 Miscellaneous Notes* Telephone Encounter - eMlania Negron RN - 08/29/2021 2:45 PM EDT Message to , she will relay to the patient. * Telephone Encounter - Peggy Sharma - 08/29/2021 2:33 PM EDT Images from the original note were not included. MD Melania Olvera RN; [facility] Clinical Pool 4 minutes ago [...] exhausted and SOB. states patient went to [facility] today that is outside of [facility], they were aware of his sx and have ordered some tests. Patient had a quadruple by pass last Oct., states he was doing well but now having above issues. Advised patient should be seen in the ED given his medical history. states patient was asleep but before he went to sleep he stated, "I just do not feel right" going to encourage patient to go to [...] patient and and advise. documented in this encounterGenesis Hospital03-30-2022 Miscellaneous Notes* Telephone Encounter - Celia Smallwood LPN - 05/21/2021 7:38 AM EDT Patient's request for medication is as follows: Pending Prescriptions Disp Refills ROSUVASTATIN 20 MG TABLET 90 tablet 3 Sig: TAKE 1 TABLET BY MOUTH EVERY DAY AT BEDTIME DOROTHY: Yes Last seen 04/23/2021. Prescription(s) as above. Please process accordingly. Celia Smallwood LPN documented in this encounterGenesis Hospital10-01-2021 History of Present illness Narrative* Snow [...] 22, 2020 1:35 PM documented in this encounterGenesis HospitalDischarge summary Author Dr. Kapadia [facility] July 03, 2022 12:46pm Note Date/Time July 03, 2022 11:18 am [facility] Medical Records Department [address] [place] [address] Emergency Department Summary 07/03/22 MR#: [id number] Acct: [id number] Name: HAYDEN PENDLETON Rep #:[id number] : [id number] From: Alex Kapadia MD [...] Factors: Negative for Marfan's Syndrome or Hypertension [facility] Medical History Abnormal CT lung screening Anemia [...] male history of cardiac disease. Four-way bypass 1-/2 to 2 years ago. He is not [...] % (Auto) 55.7 Lymph % (Auto) 32.1 Duval % (Auto) 5.2 Eos % (Auto) 3.5 [...] rate of 67 no acute signs of ND or ischemia. Prior EKG tracings: available for [...] your Primary Care Provider. Call [facility] ([phone]) or report to the closest Emergency Room. Call 911 if necessary. 07/03/22 4670 <Electronically signed by Alex Kapadia MD> Cosigner Signature (if applicable): CC: Dr. Quang Hanson MD ~ Signed [facility] Work Phone: Evaluation note* Diagnosis Dyslipidemia Other and unspecified hyperlipidemia documented in this encounter [facility] Hospital[facility]* Diagnosis Coronary artery disease involving qagan tayagungin coronary artery of qagan tayagungin heart without angina pectoris- Primary Precordial pain Hx of CABG Postsurgical aortocoronary bypass status SHAH (dyspnea on exertion) Other dyspnea and respiratory abnormality Primary hypertension Unspecified essential hypertension documented in this encounter [facility]* Diagnosis Precordial pain Coronary artery disease involving qagan tayagungin coronary artery of qagan tayagungin heart without angina pectoris Hx of CABG Postsurgical aortocoronary bypass status SHAH (dyspnea on exertion) Other dyspnea and respiratory abnormality documented in this encounter [facility]* Diagnosis Onset Date Resolution Status Positive CHANDANA (antinuclear antibody) acute Smoking greater than 20 pack years acute [facility] Work Phone: Evaluation note* Diagnosis Onset Date Resolution Status Positive CHANDANA (antinuclear antibody) acute Smoking greater than 20 pack years acute Left kidney mass acute Chronic fatigue chronic SOB (shortness of breath) [facility] Work Phone: Evaluation note* Diagnosis Coronary artery disease involving qagan tayagungin coronary artery of qagan tayagungin heart without angina pectoris- Primary Hx of CABG Postsurgical aortocoronary bypass status Smoker Tobacco use disorder SHAH (dyspnea on exertion) Other dyspnea and respiratory abnormality documented in this encounter [facility]* Diagnosis SHAH (dyspnea on exertion)- Primary Other dyspnea and respiratory abnormality Precordial pain Coronary artery disease involving qagan tayagungin coronary artery of qagan tayagungin heart without angina pectoris Hx of CABG Postsurgical aortocoronary bypass status documented in this encounter [facility]* Diagnosis Angina of effort (HCC) [I20.8 (ICD-10-CM)]- Primary Other and unspecified angina pectoris documented in this encounter [facility]* Diagnosis Onset Date Resolution Status Left kidney mass acute Chronic fatigue chronic SOB (shortness of breath) ch ronic Positive CHANDANA (antinuclear antibody) acute SOB (shortness of breath) ch ronic BPH (benign prostatic hyperplasia) acute Chronic fatigue chronic Chronic low back pain chroni c Hypertension chronic COVID-19 acute [facility] Work Phone: Evaluation note* Diagnosis Onset Date Resolution Status Anxiety and depression acute Erectile dysfunction acute Hypersomnia acute Chronic low back pain chroni c Hyperlipidemia chronic PRABHU (obstructive sleep apnea) chronic Rheumatoid arthritis noneact sheba [facility] Work Phone: Evaluation note* Diagnosis Onset Date Resolution Status Anxiety and depression acute Erectile dysfunction acute Hypersomnia acute Chronic low back pain chroni c Hyperlipidemia chronic PRABHU (obstructive sleep apnea) chronic Rheumatoid arthritis noneact sheba SOB (shortness of breath) ch ronic Shoulder pain resolved [facility] Work Phone: Evaluation note* Diagnosis Primary hypertension- Primary Unspecified essential hypertension documented in this encounter [facility] [place] [facility]* Diagnosis Primary hypertension Unspecified essential hypertension [facility] encounter [facility] [place] noteNo assessment information availableWAshtabula [facility] Work Phone: Evaluation note* Diagnosis Primary hypertension Unspecified essential hypertension documented in this encounter [facility] [place] [facility]* Diagnosis Pain in both knees, unspecified chronicity- Primary [facility] Pain in both knees, unspecified chronicity documented [facility] this encounter [facility] [place] [facility]* Diagnosis Chronic pain of both knees- Primary Primary osteoarthritis of both knees Primary localized osteoarthrosis, lower leg CHANDANA positive Other and unspecified nonspecific immunological findings [facility] Diagnosis Chronic bilateral low back pain without sciatica- Primary CHANDANA positive Other and unspecified nonspecific immunological findings Chronic pain of both knees Primary osteoarthritis of both knees Primary localized osteoarthrosis, lower leg documented in this encounter [facility]* Diagnosis Chronic pain of both knees CHANDANA positive Other and unspecified nonspecific immunological findings Chronic bilateral low back pain without sciatica documented in this encounter [facility]* Diagnosis CHANDANA positive- Primary Other and unspecified nonspecific immunological findings Chronic pain of both knees Primary osteoarthritis of both knees Primary localized osteoarthrosis, lower leg documented in this encounter [facility] [facility] [place] note* Diagnosis S/P CABG x 4 Postsurgical aortocoronary bypass status documented in this encounter [facility] note* Diagnosis Primary hypertension Unspecified essential hypertension documented in this encounter [facility] note* Diagnosis Dyslipidemia Other and unspecified hyperlipidemia documented in this encounter [facility] note* Diagnosis Primary hypertension Unspecified essential hypertension documented in this encounter [facility] note* Diagnosis Onset Date Resolution Status Admit Date Vertigo resolved May 25 2:14pm [facility] Work Phone: Evaluation note* Diagnosis Coronary artery disease involving qagan tayagungin coronary artery of qagan tayagungin heart without angina pectoris- Primary SHAH (dyspnea on exertion) Other dyspnea and respiratory abnormality Vertigo Dizziness and giddiness Palpitations Dyslipidemia Other and unspecified hyperlipidemia Hx of CABG Postsurgical aortocoronary bypass status documented in this encounter [facility] note* Diagnosis Palpitations documented in this encounter [facility] note* Diagnosis Cognitive impairment Unspecified persistent mental disorders due to conditions classified elsewhere documented in this encounter [facility] note* Diagnosis Vestibular hypofunction, unspecified laterality- Primary [facility] Work Phone: [facility] Work Phone: Reason for referral (narrative)* Diagnostic Procedure Only (Routine) - Authorized Specialty Diagnoses / Procedures Referred By Contac t Referred To Contact MOLECULAR & FUNCTIONAL IMAGING Diagnoses Precordial pain Coronary artery disease involving qagan tayagungin coronary artery of qagan tayagung[place] heart without angina pectoris Hx of CABG SHAH (dyspnea on exertion) Procedures NM CARDIAC PERF STRESS/PHARM MYOCARDIAL SPECT MULTIPLE STUDIES Felicitas Chavez MD [address] [place] [address] Molecular & Functional Imaging [address] [place] [address] Referral ID Status Reason Start Date Expiration Date Visits Requested Visits Authorized [id number] Authorized Auto-Generat ed Referral 09/03/2021 10/02/2021 1 1 * Outpatient Procedure (Routine) - Closed Specialty Diagnoses / Procedures Referred By Contac t Referred To Contact [facility] Diagnoses Precordial pain Procedures ECG COMPLETE ECG ROUTINE ECG W/LEAST 12 LDS W/I&R Felicitas Chavez MD [address] [place] [address] [facility] [place] [address] [place] [address] Referral ID Status Reason Start Date Expiration Date V isits Requested Visits Authorized [id number] Closed Auto-Generate d Referral 09/03/2021 09/03/2022 1 1 [facility] for referral (narrative)* Diagnostic Procedure Only (Routine) - Closed Specialty Diagnoses / Procedures Referred By Contac t Referred To Contact MOLECULAR & FUNCTIONAL IMAGING Diagnoses Precordial pain Coronary artery disease involving qagan tayagungin coronary artery of qagan tayagung[place] heart without angina pectoris Hx of CABG SHAH (dyspnea on exertion) Procedures NM CARDIAC PERF STRESS/PHARM MYOCARDIAL SPECT MULTIPLE STUDIES Felicitas Chavez MD [address] [place] [address] Molecular [facility] Functional Imaging [address] [place] [address] Referral ID Status Reason Start Date Expiration Date V isits Requested Visits Authorized [id number] Closed Auto-Generate d Referral 09/03/2021 10/02/2021 1 1 [facility] for referral (narrative)* Diagnostic Procedure Only (Routine) - Pending Review Specialty Diagnoses / Procedures Referred By Contac t Referred To Contact XR IMAGING Diagnoses Pain in both knees, unspecified chronicity Procedures XR KNEE GENERAL 4V AP BOTH/PA BOTH/LAT/MERC BILATERAL RADIOLOGIC EXAM KNEE COMPLETE 4/MORE VIEWS Ramirez Thomas MD [address] [place] [address] [place] [address] Referral ID Status Reason Start Date Expiration Date Visits Requested Visits Authorized [id number] Pending Review Auto-Generat ed Referral 07/27/2023 08/25/2024 1 1 [facility] for referral (narrative)* Diagnostic Procedure Only (Routine) - Authorized Specialty Diagnoses / Procedures Referred By Contac t Referred To Contact XR IMAGING Diagnoses Chronic bilateral low back pain without sciatica Procedures XR THORACIC LIMITED 2V AP/LAT RADEX SPINE THORACIC 2 VIEWS Ciera Palm MD [address] [place] [address] [place] [address] Referral ID Status Reason Start Date Expiration Date Visits Requested Visits Authorized [id number] Authorized Auto-Generat ed Referral 11/04/2023 12/03/2024 1 1 * Diagnostic Procedure Only (Routine) - Authorized Specialty Diagnoses / Procedures Referred By Contac t Referred To Contact XR IMAGING Diagnoses Chronic pain of both knees CHANDANA positive Procedures XR CERV OTHER 4V AP/LAT/OBL RADEX SPINE CERVICAL 4 OR 5 VIEWS Ciera Palm MD [address] [place] [address] [place] [address] Referral ID Status Reason Start Date Expiration Date Visits Requested Visits Authorized [id number] Authorized Auto-Generat ed Referral 11/04/2023 12/03/2024 1 1 * Diagnostic Procedure Only (Routine) - Authorized Specialty Diagnoses / Procedures Referred By Contac t Referred To Contact XR IMAGING Diagnoses Chronic pain of both knees CHANDANA positive Chronic bilateral low back pain without sciatica Procedures XR HAND GENERAL 3V PA/LAT/OBL BILATERAL RADEX HAND MINIMUM 3 VIEWS Ciera Palm MD [address] [place] [id number] [place] [address] Referral ID Status Reason Start Date Expiration Date Visits Requested Visits Authorized [id number] Authorized Auto-Generat ed Referral 11/04/2023 12/03/2024 1 1 * Diagnostic Procedure Only (Routine) - Authorized Specialty Diagnoses / Procedures Referred By Myles t Referred To Contact XR IMAGING Diagnoses Chronic pain of both knees CHANDANA positive Procedures XR FOOT GENERAL 3V AP/LAT/OBL BILATERAL RADEX FOOT COMPLETE MINIMUM 3 VIEWS Ciera Palm MD [address] [place] [address] [place] [address] Referral ID Status Reason Start Date Expiration Date Visits Requested Visits Authorized [id number] Authorized Auto-Generat ed Referral 11/04/2023 12/03/2024 1 1 * Diagnostic Procedure Only (Routine) - Authorized Specialty Diagnoses / Procedures Referred By Myles qiu Referred To Contact XR IMAGING Diagnoses Chronic pain of both knees HCANDANA positive Procedures XR SACROILIAC JOINTS 2V AP PELVIS/FERGUESON RADIOLOGIC EXAMINATION SACROILIAC JNTS <3 VIEWS Ciera Palm MD [address] [place] [address] Xr Imaging [id number] Referral ID Status Reason Start Date Expiration Date Visits Requested Visits Authorized [id number] Authorized Auto-Generat ed Referral 11/04/2023 12/03/2024 1 1 * Diagnostic Procedure Only (Routine) - Authorized Specialty Diagnoses / Procedures Referred By Myles t Referred To Contact XR IMAGING Diagnoses Chronic pain of both knees CHANDANA positive Procedures XR LUMBAR GENERAL 3V AP/LAT/L5-S1 RADEX SPINE LUMBOSACRAL 2/3 VIEWS Ciera Palm MD [address] [place] [address] [place] [address] Referral ID Status Reason Start Date Expiration Date Visits Requested Visits Authorized [id number] Authorized Auto-Generat ed Referral 11/04/2023 12/03/2024 1 1 [facility] for referral (narrative)No reason for referral information availableWAshtabula [facility] Work Phone[facility] N[facility]* Diagnostic Procedure Only (Routine) - Closed Specialty Diagnoses / Procedures Referred By Contac t Referred To Contact MOLECULAR & FUNCTIONAL IMAGING Diagnoses Precordial pain Coronary artery disease involving qagan tayagungin coronary artery of qagan tayagungin heart without angina pectoris Hx of CABG SHAH (dyspnea on exertion) Procedures NM CARDIAC PERF STRESS/PHARM MYOCARDIAL SPECT MULTIPLE STUDIES Felicitas Chavez MD [address] [place] [address] Molecular & Functional Imaging [address] [place] [address] Referral ID Status Reason Start Date Expiration Date V isits Requested Visits Authorized [id number] Closed Auto-Generate d Referral 09/03/2021 10/02/2021 1 1 [facility] for visit Narrative* Diagnostic Procedure Only (Routine) - Closed Specialty Diagnoses / Procedures [facility] XR IM[facility] Diagnoses Pain in both knees, unspecified chronicity Procedures XR KNEE GENERAL 4V AP BOTH/PA BOTH/LAT/MERC BILATERAL RADIOLOGIC EXAM KNEE COMPLETE 4/MORE VIEWS Ramirez Thomas MD [address] [place] [address] Xr Imaging [place] [address] Referral ID Status Reason Start Date Expiration Date V isits Requested Visits Authorized [id number] Closed Auto-Generate d Referral 07/27/2023 08/25/2024 1 1 [facility] for visit Narrative* Diagnostic Procedure Only (Routine) - Closed Specialty Diagnoses / Procedures [facility] To Contact XR IMAGING Diagnoses Chronic bilateral low back pain without sciatica Procedures XR THORACIC LIMITED 2V AP/LAT RADEX SPINE THORACIC 2 VIEWS Ciera Palm MD [address] [place] [address] Xr Imaging [id number] Referral ID Status Reason Start Date Expiration Date V isits Requested Visits Authorized [id number] Closed Auto-Generate d Referral 11/04/2023 12/03/2024 1 1 [facility] Advance Directives No Advanced Directives Records FoundDocuments on File Type Date Recorded Patient Thread Winder Automatic Expl anation Advance Directive(s) 10/22/2020 7:00 AM Latest Code Status on File Code Status Date Activated Date Inactivated Comments Full Code 10/31/2020 4:19 PM Documents on File Type Date Recorded Patient Thread Winder Automatic Expl anation Advance Directive(s) 10/22/2020 7:00 AM Latest Code Status on File Code Status Date Activated Date Inactivated Comments Full Code 10/31/2020 4:19 PM Advance Directive Response Recorded Date/ Time Advance Directives No September 12 9:02am Living Will No August 29, 2021 5 :44pm Power of Tassel Maker No August 29, 2021 5:44pm Latest Code [...] August 29, 2021 4 :44pm Power of Tassel Maker No August 29, 2021 4:44pm Advance Directive Response Recorded Date/ Time Advance Directives No September 12 9:02am Living Will No July 03, 2022 1 0:59am Power of Tassel Maker No July 03, 2022 10:59am Latest Code Status on File Code Status Date Activated Date Inactivated Comments Full Code 10/31/2020 4:19 PM 11/05/2021 8:42 AM Advance Directive Response Recorded Date/ Time Advance Directives No September 12 8:02am Living Will No August 25, 2022 1 2:07pm Power of Tassel Maker No August 25, 2022 12:07pm Date Activated Date Inactivated Comments 10/31/2020 4:19 PM 11/05/2021 8:42 AM Date Activated Date Inactivated Comments 10/31/2020 4:19 PM 11/05/2021 8:42 AM Advance Directive Response Recorded Date/ Time Advance Directives No September 12 9:02am Advance Directive Response Recorded Date/ Time Living Will No May 25, 2024 1:28pm Do you have a Healthcare Power of Tassel Maker? No May 25, 2024 1:28pm Advance Directives No September 12 9:02am Advance Directive Response Recorded Date/ Time Living Will No May 25, 2024 3:08pm Do you have a Healthcare Power of Tassel Maker? No May 25, 2024 3:08pm Advance Directives [...] 2:49pm Vertigo August 29, 2024 2:49p m Chief Complaint Admit Date Vertigo July 05, 2024 8:12a m NECK PAIN, PARASTHESIAS IN HANDS July 4:09pm E-ORDER August 03, 2024 8:08 am B12 inject August 03, 2024 8:29 am 2 M FU August 29, 2024 2:49p m LOW BACK PAIN, RT LUMBAR RADICULOPATHY A ugust 2024 7:01am Chief Complaint Admit Date Vertigo July 05, 2024 8:12a m NECK PAIN, PARASTHESIAS IN HANDS July 4:09pm E-ORDER August 03, 2024 8:08 am B12 inject August 03, 2024 8:29 am 2 M FU August 29, 2024 2:49p m LOW BACK PAIN, RT LUMBAR RADICULOPATHY A ugust 2024 7:01am Vertigo October 26, 2024 2:25pm X RAY SPINE October 26, 2024 3:36pm Reason for Visit Admit Date Anxiety July [...] 2:49pm Vertigo August 29, 2024 2:49p m Anxiety October 26, 2024 2:25pm Disequilibrium October 26, 2024 2:25pm Dorsalgia October 26, 2024 2:25pm Low back pain October 26, 2024 2:25pm Right lumbar radiculopathy October 2:25pm Sinusitis October 26, 2024 2:25pm Vitamin d deficiency October 26, 2024 2:25pm Chronic fatigue October 26, 2024 2:25pm Depression October 26, 2024 2:25pm Peripheral vestibulopathy October 26, 2024 2:25pm Vertigo October 26, 2024 2:25pm Reason for Referral Specialty Diagnoses / Procedures Referred By Myles qiu Referred To Contact Rheumatology Diagnoses Chronic pain of both knees Primary osteoarthritis of both knees CHANDANA positive Procedures CONSULT TO RHEUM/IMMUN DISEASE OFFICE/OUTPATIENT [facility] HIGH MDM 60 MINUTES Ramirez Thomas MD [address] [place] [address] Referral ID Status Reason Start Date Expiration Date Visits Requested Visits Authorized [id number] Authorized PCP Requested Referral 08/11/2023 08/10/2024 1 1 Additional Source Comments Source Comments (unrecognize d section and content) In the event this informatio n is protected by the Federal Confidentiality of Alcohol and Drug Abuse Patient Records regulations: The Federal rules restrict any use of the information to criminally investigate or prosecute any alcohol or drug abuse patient.[facility] the event this information is protected by the Federal Confidentiality of Alcohol and Drug Abuse Patient Records regulations: The Federal rules restrict any use of the information to criminally investigate or prosecute any alcohol or drug abuse patient.[facility] HospitalIn the event this information is protected by the Federal Confidentiality of Alcohol and Drug Abuse Patient Records regulations: The Federal rules restrict any use of the information to criminally investigate or prosecute any alcohol or drug abuse patient.[facility] HospitalIn the event this information is protected by the Federal Confidentiality of Alcohol and Drug Abuse Patient Records regulations: The Federal rules restrict any use of the information to criminally investigate or prosecute any alcohol or drug abuse patient.[facility] HospitalIn the event this information is protected by the Federal Confidentiality of Alcohol and Drug Abuse Patient Records regulations: The Federal rules restrict any use of the information to criminally investigate or prosecute any alcohol or drug abuse patient.[facility] HospitalIn the event this information is protected by the Federal Confidentiality of Alcohol and Drug Abuse Patient Records regulations: The Federal rules restrict any use of the information to criminally investigate or prosecute any alcohol or drug abuse patient.[facility] HospitalIn the event this information is protected by the Federal Confidentiality of Alcohol and Drug Abuse Patient Records regulations: The Federal rules restrict any use of the information to criminally investigate or prosecute any alcohol or drug abuse patient.[facility] HospitalIn the event this information is protected by the Federal Confidentiality of Alcohol and Drug Abuse Patient Records regulations: The Federal rules restrict any use of the information to criminally investigate or prosecute any alcohol or drug abuse patient.[facility] HospitalIn the event this information is protected by the Federal Confidentiality of Alcohol and Drug Abuse Patient Records regulations: The Federal rules restrict any use of the information to criminally investigate or prosecute any alcohol or drug abuse patient.[facility] HospitalIn the event this information is protected by the Federal Confidentiality of Alcohol and Drug Abuse Patient Records regulations: The Federal rules restrict any use of the information to criminally investigate or prosecute any alcohol or drug abuse patient.[facility] HospitalIn the event this information is protected by the Federal Confidentiality of Alcohol and Drug Abuse Patient Records regulations: The Federal rules restrict any use of the information to criminally investigate or prosecute any alcohol or drug abuse patient.[facility] HospitalIn the event this information is protected by the Federal Confidentiality of Alcohol and Drug Abuse Patient Records regulations: The Federal rules restrict any use of the information to criminally investigate or prosecute any alcohol or drug abuse patient.[facility] HospitalIn the event this information is protected by the Federal Confidentiality of Alcohol and Drug Abuse Patient Records regulations: The Federal rules restrict any use of the information to criminally investigate or prosecute any alcohol or drug abuse patient.[facility] HospitalIn the event this information is protected by the Federal Confidentiality of Alcohol and Drug Abuse Patient Records regulations: The Federal rules restrict any use of the information to criminally investigate or prosecute any alcohol or drug abuse patient.[facility] HospitalIn the event this information is protected by the Federal Confidentiality of Alcohol and Drug Abuse Patient Records regulations: The Federal rules restrict any use of the information to criminally investigate or prosecute any alcohol or drug abuse patient.[facility] HospitalIn the event this information is protected by the Federal Confidentiality of Alcohol and Drug Abuse Patient Records regulations: The Federal rules restrict any use of the information to criminally investigate or prosecute any alcohol or drug abuse patient.[facility] HospitalIn the event this information is protected by the Federal Confidentiality of Alcohol and Drug Abuse Patient Records regulations: The Federal rules restrict any use of the information to criminally investigate or prosecute any alcohol or drug abuse patient.[facility] HospitalIn the event this information is protected by the Federal Confidentiality of Alcohol and Drug Abuse Patient Records regulations: The Federal rules restrict any use of the information to criminally investigate or prosecute any alcohol or drug abuse patient.[facility] HospitalIn the event this information is protected by the Federal Confidentiality of Alcohol and Drug Abuse Patient Records regulations: The Federal rules restrict any use of the information to criminally investigate or prosecute any alcohol or drug abuse patient.[facility] HospitalIn the event this information is protected by the Federal Confidentiality of Alcohol and Drug Abuse Patient Records regulations: The Federal rules restrict any use of the information to criminally investigate or prosecute any alcohol or drug abuse patient.[facility] HospitalIn the event this information is protected by the Federal Confidentiality of Alcohol and Drug Abuse Patient Records regulations: The Federal rules restrict any use of the information to criminally investigate or prosecute any alcohol or drug abuse patient.[facility] HospitalIn the event this information is protected by the Federal Confidentiality of Alcohol and Drug Abuse Patient Records regulations: The Federal rules restrict any use of the information to criminally investigate or prosecute any alcohol or drug abuse patient.[facility] HospitalIn the event this information is protected by the Federal Confidentiality of Alcohol and Drug Abuse Patient Records regulations: The Federal rules restrict any use of the information to criminally investigate or prosecute any alcohol or drug abuse patient.[facility] HospitalIn the event this information is protected by the Federal Confidentiality of Alcohol and Drug Abuse Patient Records regulations: The Federal rules restrict any use of the information to criminally investigate or prosecute any alcohol or drug abuse patient.[facility] HospitalIn the event this information is protected by the Federal Confidentiality of Alcohol and Drug Abuse Patient Records regulations: The Federal rules restrict any use of the information to criminally investigate or prosecute any alcohol or drug abuse patient.[facility] HospitalIn the event this information is protected by the Federal Confidentiality of Alcohol and Drug Abuse Patient Records regulations: The Federal rules restrict any use of the information to criminally investigate or prosecute any alcohol or drug abuse patient.[facility] HospitalIn the event this information is protected by the Federal Confidentiality of Alcohol and Drug Abuse Patient Records regulations: The Federal rules restrict any use of the information to criminally investigate or prosecute any alcohol or drug abuse patient.[facility] HospitalIn the event this information is protected by the Federal Confidentiality of Alcohol and Drug Abuse Patient Records regulations: The Federal rules restrict any use of the information to criminally investigate or prosecute any alcohol or drug abuse patient.[facility] HospitalIn the event this information is protected by the Federal Confidentiality of Alcohol and Drug Abuse Patient Records regulations: The Federal rules restrict any use of the information to criminally investigate or prosecute any alcohol or drug abuse patient.[facility] HospitalIn the event this information is protected by the Federal Confidentiality of Alcohol and Drug Abuse Patient Records regulations: The Federal rules restrict any use of the information to criminally investigate or prosecute any alcohol or drug abuse patient.[facility] HospitalIn the event this information is protected by the Federal Confidentiality of Alcohol and Drug Abuse Patient Records regulations: The Federal rules restrict any use of the information to criminally investigate or prosecute any alcohol or drug abuse patient.[facility] HospitalIn the event this information is protected by the Federal Confidentiality of Alcohol and Drug Abuse Patient Records regulations: The Federal rules restrict any use of the information to criminally investigate or prosecute any alcohol or drug abuse patient.[facility] HospitalIn the event this information is protected by the Federal Confidentiality of Alcohol and Drug Abuse Patient Records regulations: The Federal rules restrict any use of the information to criminally investigate or prosecute any alcohol or drug abuse patient.[facility] HospitalIn the event this information is protected by the Federal Confidentiality of Alcohol and Drug Abuse Patient Records regulations: The Federal rules restrict any use of the information to criminally investigate or prosecute any alcohol or drug abuse patient.[facility] HospitalIn the event this information is protected by the Federal Confidentiality of Alcohol and Drug Abuse Patient Records regulations: The Federal rules restrict any use of the information to criminally investigate or prosecute any alcohol or drug abuse patient.[facility] HospitalIn the event this information is protected by the Federal Confidentiality of Alcohol and Drug Abuse Patient Records regulations: The Federal rules restrict any use of the information to criminally investigate or prosecute any alcohol or drug abuse patient.[facility] HospitalIn the event this information is protected by the Federal Confidentiality of Alcohol and Drug Abuse Patient Records regulations: The Federal rules restrict any use of the information to criminally investigate or prosecute any alcohol or drug abuse patient.[facility] HospitalIn the event this information is protected by the Federal Confidentiality of Alcohol and Drug Abuse Patient Records regulations: The Federal rules restrict any use of the information to criminally investigate or prosecute any alcohol or drug abuse patient.[facility] HospitalIn the event this information is protected by the Federal Confidentiality of Alcohol and Drug Abuse Patient Records regulations: The Federal rules restrict any use of the information to criminally investigate or prosecute any alcohol or drug abuse patient.[facility] HospitalIn the event this information is protected by the Federal Confidentiality of Alcohol and Drug Abuse Patient Records regulations: The Federal rules restrict any use of the information to criminally investigate or prosecute any alcohol or drug abuse patient.[facility] HospitalIn the event this information is protected by the Federal Confidentiality of Alcohol and Drug Abuse Patient Records regulations: The Federal rules restrict any use of the information to criminally investigate or prosecute any alcohol or drug abuse patient.[facility] HospitalIn the event this information is protected by the Federal Confidentiality of Alcohol and Drug Abuse Patient Records regulations: The Federal rules restrict any use of the information to criminally investigate or prosecute any alcohol or drug abuse patient.[facility] HospitalIn the event this information is protected by the Federal Confidentiality of Alcohol and Drug Abuse Patient Records regulations: The Federal rules restrict any use of the information to criminally investigate or prosecute any alcohol or drug abuse patient.[facility] Reason for Visit (unrecogniz ed section and content) Reason Comments PT Eval Specialty Diagnoses / Procedures Referred By Myles qiu Referred To Contact OCCUPATIONAL THERAPY Diagnoses Cognitive impairment Procedures CONSULT TO FINANCIAL SERVICES SALES REPRESENTATIVE OCCUPATIONAL THERAPY EVAL HIGH COMPLEX 60 MINS PHYSICAL THERAPY EVALUATION HIGH COMPLEX [address] DO [address] [place] [address] Phone: tel: fax: Claritza Vargas OT/L, OTD [address] [place] [address] Phone: tel: Referral ID Status Reason Start Date Expiration Date Visits Requested Visits Authorized [id number] Authorized Auto-Generat ed Referral 02/23/2024 02/21/2025 50 50 Reason Comments Refill Request Reason Comments Patient Question Patient Update Reason Comments ER F/U chest pain, SOB Reason Comments Reminder Call Reason Comments Results Reason Comments F/U 1 month Reason Comments Patient Update Orders Specialty Diagnoses / Procedures Referred By Myles qiu Referred To Contact Diagnoses Unstable angina (HCC) ACS (acute coronary syndrome) (HCC) Unstable angina (HCC) [I20.0] ACS (acute coronary syndrome) (HCC) [I24.9] Procedures L HRT CATH W/NJX L VENTRICULOGRAPHY IMG S&I LEFT HEART CATH INTRAPROCEDURAL INJECT W/ LEFT VENTRICULOGRAPHY IMAGE SUPERVISION/INTERPRETATION [employer] 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 [address] [place] [address] Referral ID Status Reason Start Date Expiration Date Visits Re quested Visits Authorized [id number] 1 1 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 Comments Medication Problem Reason Onset Date Comments Refill Request 09/28/2022 Reason Comments Appointment Reason Onset Date Comments Refill Request 11/09/2022 Reason Onset Date Comments Refill Request 07/18/2023 Reason Comments New Pain Reason Comments Joint Pain Positive CHANDANA Specialty Diagnoses / Procedures Referred By Myles qiu Referred To Contact Rheumatology Diagnoses Chronic pain of both knees Primary osteoarthritis of both knees CHANDANA positive Procedures CONSULT TO RHEUM/IMMUN DISEASE OFFICE/OUTPATIENT NEW HIGH MDM 60 MINUTES Ramirez Thomas MD [address] [place] [address] Referral ID Status Reason Start Date Expiration Date V isits Requested Visits Authorized [id number] Closed PCP Requested Referral 08/11/2023 08/10/2024 1 1 Reason Comments Follow Up Reason Onset Date Comments Refill Request 01/06/2024 Reason Comments Cardiology Follow Up Coronary artery dis ease Reason Comments OT EVAL Care Teams (unrecognized sec tion and content) Team Status: Active Member Role Status Dates Jess THOMAS NP-Starr Primary Care Provider Active Team Status: Inactive Member Role Status Dates SEBASTIÁN Castillo Primary Care Provider Active Start: February 24, 2024 End: February 24, 2024 SEBASTIÁN Castillo Attending Provider Active S tart: February 24, 2024 End: February 24, 2024 SEBASTIÁN Castillo Referring Provider Active S tart: February 24, 2024 End: February 24, 2024 Team Status: Inactive Member Role Status Dates SEBASTIÁN Castillo Primary Care Provider Active Start: 2024 End: 2024 SEBASTIÁN Castillo Attending Provider Active S tart: 2024 End: 2024 Team Status: Active Member Role Status Dates Jess Rosas VS, COTTAGE SUPERVISOR-C Primary Care Provider Active Start: May 25, 2024 Dr. Chucky Maya , DO Referring Provider Active Start : May 25, 2024 Dr. Chucky Maya , Emergency Provider Active Start : May 25, 2024 Dr. Joi Woodson MD Admit Provider Active St art: May 25, 2024 Dr. Joi Woodson MD Attending Provider Active Start: May 25, 2024 Finance Associate Relationship Specialty Start Date End Date Quang Hanson MD [address] [place] [address] PCP - General Internal Medicine 09/03/20 Kalin Alonso MD [address] [place] [address] [place] [address] Home Care Physician Thoracic Surgery 10/24/20 Kaycee Ramirez, VOCAL MUSIC INSTRUCTOR.CHILDBIRTH AND INFANT CARE TEACHER [address] [place] [address] Referring Vascular Surgery 10/29/20 Felicitas Chavez MD [address] [place] [address] Cardiology 11/26/20 Finance Associate Relationship Specialty Start Date End Date Quang Hanson MD [address] [place] [address] PCP - General Internal Medicine 09/03/20 Kalin Alonso MD [address] [place] [address] [place] [address] Home Care Physician Thoracic Surgery 10/24/20 Kaycee Ramirez, VOCAL MUSIC INSTRUCTOR.CHILDBIRTH AND INFANT CARE TEACHER [address] [place] [address] Referring Vascular Surgery 10/29/20 Felicitas Chavez MD [address] [place] [address] Cardiology 11/26/20 Finance Associate Relationship Specialty Start Date End Date Quang Hanson MD [address] [place] [address] PCP - General Internal Medicine 09/03/20 Kalin Alonso MD [address] [place] [address] [place] [address] Home Care Physician Thoracic Surgery 10/24/20 Kaycee Ramirez, VOCAL MUSIC INSTRUCTOR.CHILDBIRTH AND INFANT CARE TEACHER [address] [place] [address] Referring Vascular Surgery 10/29/20 Felicitas Chavez MD [address] [place] [address] Cardiology 11/26/20 Finance Associate Relationship Specialty Start Date End Date Quang Hanson MD [address] [facility] [address] [place] [address] PCP - General Internal Medicine 09/03/20 Kalin Alonso MD [address] [place] [address] [place] [address] Home Care Physician Thoracic Surgery 10/24/20 Kaycee Ramirez, VOCAL MUSIC INSTRUCTOR.CHILDBIRTH AND INFANT CARE TEACHER [address] [place] [address] Referring Vascular Surgery 10/29/20 Felicitas Chavez MD [address] [place] [address] Cardiology 11/26/20 Finance Associate Relationship Specialty Start Date End Date Quang Hanson MD [address] [facility] [address] [place] [address] PCP - General Internal Medicine 09/03/20 Kalin Alonso MD [address] [place] [address] [place] [address] Home Care Physician Thoracic Surgery 10/24/20 Kaycee Ramirez, VOCAL MUSIC INSTRUCTOR.CHILDBIRTH AND INFANT CARE TEACHER [address] [place] [address] Referring Vascular Surgery 10/29/20 Felicitas Chavez MD [address] [place] [address] Cardiology 11/26/20 Finance Associate Relationship Specialty Start Date End Date Quang Hanson MD [address] [address] [place] [address] PCP - General Internal Medicine 09/03/20 Kalin Alonso MD [address] [place] [address] [place] [address] Home Care Physician Thoracic Surgery 10/24/20 Kaycee Ramirez, VOCAL MUSIC INSTRUCTOR.CHILDBIRTH AND INFANT CARE TEACHER [address] [place] [address] Referring Vascular Surgery 10/29/20 Felicitas Chavez MD [address] [place] [address] Cardiology 11/26/20 Finance Associate Relationship Specialty Start Date End Date Quang Hanson MD [address] [facility] [address] [place] [address] PCP - General Internal Medicine 09/03/20 Kalin Alonso MD [address] [place] [address] [place] [address] Home Care Physician Thoracic Surgery 10/24/20 Kaycee Ramirez, VOCAL MUSIC INSTRUCTOR.CHILDBIRTH AND INFANT CARE TEACHER [address] [place] [address] Referring Vascular Surgery 10/29/20 Felicitas Chavez MD [address] [place] [address] Cardiology 11/26/20 Finance Associate Relationship Specialty Start Date End Date Quang Hanson MD [address] [facility] [address] [place] [address] PCP - General Internal Medicine 09/03/20 Kalin Alonso MD [address] [place] [address] [place] [address] Home Care Physician Thoracic Surgery 10/24/20 Kaycee Ramirez, VOCAL MUSIC INSTRUCTOR.CHILDBIRTH AND INFANT CARE TEACHER [address] [place] [address] Referring Vascular Surgery 10/29/20 Felicitas Chavez MD [address] [place] [address] Cardiology 11/26/20 Finance Associate Relationship Specialty Start Date End Date Quang Hanson MD [address] [facility] [address] [place] [address] PCP - General Internal Medicine 09/03/20 Kalin Alonso MD [address] [place] [address] [place] [address] Home Care Provider Thoracic Surgery 10/24/20 Kaycee Ramirez, VOCAL MUSIC INSTRUCTOR.CHILDBIRTH AND INFANT CARE TEACHER [address] [place] [address] Referring Vascular Surgery 10/29/20 Felicitas Chavez MD [address] [place] [address] Cardiology 11/26/20 Finance Associate Relationship Specialty Start Date End Date Quang Hanson MD [address] [facility] [address] [place] [address] PCP - General Internal Medicine 09/03/20 Kalin Alonso MD [address] [place] [address] [place] [address] Home Care Provider Thoracic Surgery 10/24/20 Kaycee Ramirez, VOCAL MUSIC INSTRUCTOR.CHILDBIRTH AND INFANT CARE TEACHER [address] [place] [address] Referring Vascular Surgery 10/29/20 Felicitas Chavez MD [address] [place] [address] Cardiology 11/26/20 Finance Associate Relationship Specialty Start Date End Date Quang Hanson MD [address] [facility] [address] [place] [address] PCP - General Internal Medicine 09/03/20 Kalin Alonso MD [address] [place] [address] [place] [address] Home Care Provider Thoracic Surgery 10/24/20 Kaycee Ramirez, VOCAL MUSIC INSTRUCTOR.CHILDBIRTH AND INFANT CARE TEACHER [address] [place] [address] Referring Vascular Surgery 10/29/20 Felicitas Chavez MD [address] [place] [address] Cardiology 11/26/20 Finance Associate Relationship Specialty Start Date End Date Quang Hanson MD [address] [place] [address] PCP - General Internal Medicine 09/03/20 Kalin Alonso MD [address] [place] [address] [place] [address] Home Care Provider Thoracic Surgery 10/24/20 Kaycee Ramirez, VOCAL MUSIC INSTRUCTOR.CHILDBIRTH AND INFANT CARE TEACHER [address] [place] [address] [place] [address] Referring Vascular Surgery 10/29/20 Felicitas Chavez MD [address] [place], [place] [phone] Cardiology 11/26/20 Team Status: Active Member Role Status Dates Dr. Quang Hanson MD Family Provider Active Dr. Quang Hanson MD Primary Care Provider Active Team Status: Inactive Member Role Status Dates Dr. Quang Hanson MD Primary Care Provider, Refer ring Provider Active Jess Rosas NP, COTTAGE SUPERVISOR-C Attending Provider Active Team Status: Inactive Member Role Status Dates Dr. Quang Hanson MD Primary Care Provider Active Jess Rosas NP, COTTAGE SUPERVISOR-C Attending Provider, Referring Prov ider Active Team Status: Inactive Member Role Status Dates Dr. Quang Hanson MD Primary Care Provider Active Tiffanie Park COTTAGE SUPERVISOR-C Attending Provider, Referring Pro vider Active Team Status: Inactive Member Role Status Dates Dr. Quang Hanson MD Primary Care Provider, Refer ring Provider Active Felix HERNANDEZ, PA Attending Provider Active Team Status: Inactive Member Role Status Dates Dr. Quang Hanson MD Primary Care Provider Active Dr. Alex Kapadia MD Emergency Provider Active Finance Associate Relationship Specialty Start Date End Date Quang Hanson MD [address] [place] [address] PCP - General Internal Medicine 09/03/20 Kalin Alonso MD [address] [place] [address] [place] [address] Home Care Provider Thoracic Surgery 10/24/20 Kaycee Ramirez, VOCAL MUSIC INSTRUCTOR.CHILDBIRTH AND INFANT CARE TEACHER [address] [place] [address] [place] [address] Referring Vascular Surgery 10/29/20 Felicitas Chavez MD [address] [place], [place] [id number] Cardiology 11/26/20 Finance Associate Relationship Specialty Start Date End Date Quang Hanson MD [address] [place] [address] PCP - General Internal Medicine 09/03/20 Kalin Alonso MD [address] [place] [address] [place] [address] Home Care Provider Thoracic Surgery 10/24/20 Kaycee Ramirez, VOCAL MUSIC INSTRUCTOR.CHILDBIRTH AND INFANT CARE TEACHER [address] [place] [address] [place] [address] Referring Vascular Surgery 10/29/20 Felicitas Chavez MD [address] [place], [place] [address] Cardiology 11/26/20 Finance Associate Relationship Specialty Start Date End Date Quang Hanson MD [address] [place] [address] PCP - General Internal Medicine 09/03/20 Kalin Alonso MD [address] [place] [address] [place] [address] Home Care Provider Thoracic Surgery 10/24/20 Kaycee Ramirez APRN.CHILDBIRTH AND INFANT CARE TEACHER [address] [place] [address] [place] [address] Referring Vascular Surgery 10/29/20 Felicitas Chavez MD [address] [place], [place] [phone] Cardiology 11/26/20 Team Status: Inactive Member Role Status Dates Dr. Quang Hanson MD Primary Care Provider Active SCOTT POLK Attending Provider, Referring Provider Ac tive Finance Associate Relationship Specialty Start Date End Date Quang Hanson MD [address] [place] [address] PCP - General Internal Medicine 09/03/20 Kalin Alonso MD [address] [place] [address] [place] [address] Home Care Provider Thoracic Surgery 10/24/20 Kaycee Riley APRN.CHILDBIRTH AND INFANT CARE TEACHER [address] [place], [place] [id number] Referring Vascular Surgery 10/29/20 Felicitas Chavez MD [address] [place] [address] Cardiology 11/26/20 Finance Associate Relationship Specialty Start Date End Date Quang Hanson MD [address] [place] [address] PCP - General Internal Medicine 09/03/20 Kalin Alonso MD [address] [place] [address] [place] [address] Home Care Provider Thoracic Surgery 10/24/20 Kaycee Riley APRN.CHILDBIRTH AND INFANT CARE TEACHER [address] [place] [address] Referring Vascular Surgery 10/29/20 Felicitas Chavez MD [address] [place] [address] Cardiology 11/26/20 Finance Associate Relationship Specialty Start Date End Date Quang Hanson MD [address] [place] [address] PCP - General Internal Medicine 09/03/20 Kalin Alonso MD [address] [place] [address] [place] [address] Home Care Provider Thoracic Surgery 10/24/20 Kaycee Riley APRN.CHILDBIRTH AND INFANT CARE TEACHER [address] [place] [address] Referring Vascular Surgery 10/29/20 Felicitas Chavez MD [address] [place] [address] Cardiology 11/26/20 Finance Associate Relationship Specialty Start Date End Date Quang Hanson MD [address] [facility] [address] [place] [address] PCP - General Internal Medicine 09/03/20 Kalin Alonso MD [address] [place] [address] [place] [address] Home Care Provider Thoracic Surgery 10/24/20 Kaycee Riley APRN.CHILDBIRTH AND INFANT CARE TEACHER [address] [place] [address] Referring Vascular Surgery 10/29/20 Felicitas Chavez MD [address] [place] [address] Cardiology 11/26/20 Finance Associate Relationship Specialty Start Date End Date Quang Hanson MD [address] [facility] [address] [place] [address] PCP - General Internal Medicine 09/03/20 Kalin Alonso MD [address] [place] [address] [place] [address] Home Care Provider Thoracic Surgery 10/24/20 Kaycee Riley APRN.CHILDBIRTH AND INFANT CARE TEACHER [address] [place] [address] Referring Vascular Surgery 10/29/20 Felicitas Chavez MD [address] [place] [address] Cardiology 11/26/20 Finance Associate Relationship Specialty Start Date End Date Quang Hanson MD [address] [facility] [address] [place] [address] PCP - General Internal Medicine 09/03/20 Kalin Alonso MD [address] [place] [address] [place] [address] Home Care Provider Thoracic Surgery 10/24/20 Kaycee Riley APRN.CHILDBIRTH AND INFANT CARE TEACHER [address] [place] [address] Referring Vascular Surgery 10/29/20 Felicitas Chavez MD [address] [place], [place] [phone] Cardiology 11/26/20 Finance Associate Relationship Specialty Start Date End Date Quang Hanson MD [address] [place] [address] PCP - General Internal Medicine 09/03/20 Kalin Alonso MD [address] [place] [address] [place] [address] Home Care Provider Thoracic Surgery 10/24/20 Kaycee Riley APRN.CHILDBIRTH AND INFANT CARE TEACHER [address] [place] [address] Referring Vascular Surgery 10/29/20 Felicitas Chavez MD [address] [place] [address] Cardiology 11/26/20 Finance Associate Relationship Specialty Start Date End Date Quang Hanson MD [address] [place] [address] PCP - General Internal Medicine 09/03/20 Kalin Alonso MD [address] [place] [address] [place] [address] Home Care Provider Thoracic Surgery 10/24/20 Kaycee Riley APRN.CHILDBIRTH AND INFANT CARE TEACHER [address] [place] [address] Referring Vascular Surgery 10/29/20 Felicitas Chavez MD [address] [place] [address] Cardiology 11/26/20 Finance Associate Relationship Specialty Start Date End Date Quang Hanson MD [address] [place] [address] PCP - General Internal Medicine 09/03/20 Kalin Alonso MD [address] [place] [address] [place] [address] Home Care Provider Thoracic Surgery 10/24/20 Kyacee Riley APRN.CHILDBIRTH AND INFANT CARE TEACHER [address] [place] [address] [place] [address] Referring Vascular Surgery 10/29/20 Felicitas Chavez MD [address] [place] [address] Cardiology 11/26/20 Finance Associate Relationship Specialty Start Date End Date Quang Hanson MD [address] [place] [address] PCP - General Internal Medicine 09/03/20 Kalin Alonso MD [address] [place] [address] [place] [address] Home Care Provider Thoracic Surgery 10/24/20 Kaycee Riley APRN.CHILDBIRTH AND INFANT CARE TEACHER [address] [place] [address] [place] [address] Referring Vascular Surgery 10/29/20 Carlito Luna, RN [address] [place] [address] Fitter Helper Post Acute Care 10/30/20 12/01/20 Finance Associate Relationship Specialty Start Date End Date Quang Hanson MD [address] [facility] [address] [place] [address] PCP - General Internal Medicine 09/03/20 Kalin Alonso MD [address] [place] [address] [place] [address] Home Care Provider Thoracic Surgery 10/24/20 Kaycee Riley APRN.CHILDBIRTH AND INFANT CARE TEACHER [address] [place] [address] [place] [address] Referring Vascular Surgery 10/29/20 Felicitas Chavez MD [address] [place], [place] [phone] Cardiology 11/26/20 Finance Associate Relationship Specialty Start Date End Date Quang Hanson MD [address] [facility] [address] [place] [address] PCP - General Internal Medicine 09/03/20 Kalin Alonso MD [address] [place] [address] [place] [address] Home Care Provider Thoracic Surgery 10/24/20 Kaycee Riley APRN.CHILDBIRTH AND INFANT CARE TEACHER [address] [place] [address] [place] [address] Referring Vascular Surgery 10/29/20 Felicitas Chavez MD [address] [place] [address] Cardiology 11/26/20 Team Status: Active Member Role Status Dates Dr. Quang Hanson MD Family Provider Active Jess Rosas VSStarr, COTTAGE SUPERVISOR-C Primary Care Provider Active Team Status: Inactive Member Role Status Dates Jess THOMAS, COTTAGE SUPERVISOR-C Primary Care Provider Active Start: May 25, [...] Active Member Role Status Dates Jess THOMAS, COTTAGE SUPERVISOR-C Primary Care Provider Active Start: May 26, 2024 Dr. Tom Medina MD Attending Provider Active S tart: May 26, 2024 Team Status: Active Member Role Status Dates Jess THOMAS, COTTAGE SUPERVISOR-C Primary Care Provider Active Start: May 26, [...] Other Provider Active Start: May 26, 2024 Finance Associate Relationship Specialty Start Date End Date Jess Rosas CNP [address] [place] [address] PCP - General Family Medicine 06/06/24 Kalin Alonso MD [address] [place] [address] [place] [address] Home Care Provider Thoracic Surgery 10/24/20 Kaycee Riley APRN.CHILDBIRTH AND INFANT CARE TEACHER [address] [place] [address] [place] [address] Referring Vascular Surgery 10/29/20 Felicitas Chavez MD [address] [place] [address] Cardiology 11/26/20 Finance Associate Relationship Specialty Start Date End Date Jess Rosas CNP [address] [place] [address] PCP - General Family Medicine 06/06/24 Kalin Alonso MD [address] [place] [address] [place] [address] Home Care Provider Thoracic Surgery 10/24/20 Kaycee Riley, VOCAL MUSIC INSTRUCTOR.CHILDBIRTH AND INFANT CARE TEACHER [address] [place] [address] [place] [address] Referring Vascular Surgery 10/29/20 Felicitas Chavez MD [address] [place] [address] Cardiology 11/26/20 Finance Associate Relationship Specialty Start Date End Date Jess Rosas CNP [address] [place] [address] PCP - General Family Medicine 06/06/24 Kalin Alonso MD Home Care Provider Thoracic Surgery 10/24/20 Kaycee Riley, VOCAL MUSIC INSTRUCTOR.CHILDBIRTH AND INFANT CARE TEACHER Referring Vascular Surgery 10/29/20 Felicitas Chavez MD [address] [place] [address] Cardiology 11/26/20 Finance Associate Relationship Specialty Start Date End Date Jess Rosas CNP [address] [place] [address] PCP - General Family Medicine 06/06/24 Kalin Alonso MD Home Care Provider Thoracic Surgery 10/24/20 Kaycee Riley APRN.CHILDBIRTH AND INFANT CARE TEACHER Referring Vascular Surgery 10/29/20 Felicitas Chavez MD [address] [place] [address] Cardiology 11/26/20 Team Status: Active Member Role Status Dates Jess Rosas [facility], COTTAGE SUPERVISOR-C Primary Care Provider Active Start: May 26, [...] Member Role Status Dates Jess Rosas VSC, COTTAGE SUPERVISOR-C Primary Care Provider Active Start: June 20, 2024 End: June 20, 2024 Faheem Hyde VSC, COTTAGE SUPERVISOR-C Attending Provider Active Start: June 20, 2024 End: June 20, 2024 Team Status: Inactive Member Role Status Dates Jess Rosas VSC, COTTAGE SUPERVISOR-C Primary Care Provider Active Start: July 05, 2024 End: July 05, 2024 Jess Rosas VSC, COTTAGE SUPERVISOR-C Referring Provider Active S tart: July 05, 2024 End: July 05, 2024 Dr. Terrell Quiles MD Attending Provider Active Start: July 05, 2024 End: July 05, 2024 Team Status: Inactive Member Role Status Dates Jess Rosas VSC, COTTAGE SUPERVISOR-C Primary Care Provider Active Start: July 27, 2024 End: July 27, 2024 Dr. Terrell Quiles MD Attending Provider Active Start: July 27, 2024 End: July 27, 2024 Dr. Terrell Quiles MD Referring Provider Active Start: July 27, 2024 End: July 27, 2024 Team Status: Active Member Role Status Dates Jess Rosas VSC, COTTAGE SUPERVISOR-C Primary Care Provider Active Start: July 27, 2024 Dr. Terrell Quiles MD Attending Provider Active Start: July 27, 2024 Dr. eTrrell Quiles MD Referring Provider Active Start: July 27, 2024 Team Status: Active Member Role Status Dates Jess Rosas VSC, COTTAGE SUPERVISOR-C Primary Care Provider Active Start: August 03, 2024 Dr. Terrell Quiles MD Attending Provider Active Start: August 03, 2024 Dr. Terrell Quiles MD Referring Provider Active Start: August 03, 2024 Team Status: Inactive Member Role Status Dates Jess THOMAS, COTTAGE SUPERVISOR-C Primary Care Provider Active Start: August 03, 2024 End: August 03, 2024 Jess BentonBarrientos, COTTAGE SUPERVISOR-C Referring Provider Active S tart: August 03, 2024 End: August 03, 2024 Dr. Terrell Quiles MD Attending Provider Active Start: August 03, 2024 End: August 03, 2024 Team Status: Inactive Member Role Status Dates Jess Deisy THOMAS, COTTAGE SUPERVISOR-C Primary Care Provider Active Start: August 03, 2024 End: August 03, 2024 Dr. Terrell Quiles MD Attending Provider Active Start: August 03, 2024 End: August 03, 2024 Dr. Terrell Quiles MD Referring Provider Active Start: August 03, 2024 End: August 03, 2024 Finance Associate Relationship Specialty Start Date End Date Jess RosasCHRISTINA [address] [place] [address] PCP - General Family Medicine 06/06/24 Kalin Alonso MD Home Care Provider Thoracic Surgery 10/24/20 Kaycee Riley, VOCAL MUSIC INSTRUCTOR.CHILDBIRTH AND INFANT CARE TEACHER Referring Vascular Surgery 10/29/20 Felicitas Chavez MD [address] [place] [address] Cardiology 11/26/20 Team Status: Active Member Role/Relationship Status Dates Jess BentonVegaC, COTTAGE SUPERVISOR-C Primary Care Provider Active Team Status: Inactive Member Role/Relationship Status Dates Jess Bentonder VSC, COTTAGE SUPERVISOR-C Primary Care Provider Active Start: 2024 End: 2024 Jess BentonBarrientos, COTTAGE SUPERVISOR-C Attending Provider Active S tart: 2024 End: 2024 Team Status: Inactive Member Role/Relationship Status Dates Jess Rosas VSC, COTTAGE SUPERVISOR-C Primary Care Provider Active Start: May 25, [...] Active Member Role/Relationship Status Dates Jess THOMAS, COTTAGE SUPERVISOR-C Primary Care Provider Active Start: May 26, 2024 Dr. Tom Medina MD Attending Provider Active S tart: May 26, 2024 Team Status: Active Member Role/Relationship Status Dates Jess AYALAC, COTTAGE SUPERVISOR-C Primary Care Provider Active Start: May 26, [...] Start : May 26, 2024 Dr. Иван Rtuledge MD Other Provider Active Sta rt: May [...] Active Start: May 26, 2024 Dr. Alvin Wrad MD Other Provider Active St art: May [...] Member Role/Relationship Status Dates Jess Rosas VSC, COTTAGE SUPERVISOR-C Primary Care Provider Active Start: June 20, 2024 End: June 20, 2024 Faheem Hyde VSC, COTTAGE SUPERVISOR-C Attending Provider Active Start: June 20, 2024 End: June 20, 2024 Team Status: Inactive Member Role/Relationship Status Dates Jess Rosas VSC, COTTAGE SUPERVISOR-C Primary Care Provider Active Start: July 05, 2024 End: July 05, 2024 Jess Rosas VSC, COTTAGE SUPERVISOR-C Referring Provider Active S tart: July 05, 2024 End: July 05, 2024 Dr. Terrell Quiles MD Attending Provider Active Start: July 05, 2024 End: July 05, 2024 Team Status: Inactive Member Role/Relationship Status Dates Jess Deisy VSC, COTTAGE SUPERVISOR-C Primary Care Provider Active Start: July 27, 2024 End: July 27, 2024 Dr. Terrell Quiles MD Attending Provider Active Start: July 27, 2024 End: July 27, 2024 Dr. Terrell Quiles MD Referring Provider Active Start: July 27, 2024 End: July 27, 2024 Team Status: Inactive Member Role/Relationship Status Dates Jess Rosas VSC, COTTAGE SUPERVISOR-C Primary Care Provider Active Start: July 27, 2024 End: July 27, 2024 Dr. Terrell Quiles MD Attending Provider Active Start: July 27, 2024 End: July 27, 2024 Dr. Terrell Quiles MD Referring Provider Active Start: July 27, 2024 End: July 27, 2024 Team Status: Inactive Member Role/Relationship Status Dates Jess Rosas VSC, COTTAGE SUPERVISOR-C Primary Care Provider Active Start: August 03, 2024 End: August 03, 2024 Dr. Terrell Quiles MD Attending Provider Active Start: August 03, 2024 End: August 03, 2024 Dr. Terrell Quiles MD Referring Provider Active Start: August 03, 2024 End: August 03, 2024 Team Status: Inactive Member Role/Relationship Status Dates Jess Rosas VSC, COTTAGE SUPERVISOR-C Primary Care Provider Active Start: August 03, 2024 End: August 03, 2024 Jess Deisy VSC, COTTAGE SUPERVISOR-C Referring Provider Active S tart: August 03, 2024 End: August 03, 2024 Dr. Terrell Quiles MD Attending Provider Active Start: August 03, 2024 End: August 03, 2024 Team Status: Inactive Member Role/Relationship Status Dates Jess Bentonder VSC, COTTAGE SUPERVISOR-C Primary Care Provider Active Start: August 29, 2024 End: August 29, 2024 Jess Deisy VSC, COTTAGE SUPERVISOR-C Referring Provider Active S tart: August 29, 2024 End: August 29, 2024 Dr. Terrell Quiles MD Attending Provider Active Start: August 29, 2024 End: August 29, 2024 Team Status: Inactive Member Role/Relationship Status Dates Jess Deisy VSC, COTTAGE SUPERVISOR-C Primary Care Provider Active Start: June 20, 2024 End: June 20, 2024 Faheem Hyde VSC, COTTAGE SUPERVISOR-C Attending Provider Active Start: June 20, 2024 End: June 20, 2024 Team Status: Inactive Member Role/Relationship Status Dates Jess Deisy VSC, COTTAGE SUPERVISOR-C Primary Care Provider Active Start: July 05, 2024 End: July 05, 2024 Jess Deisy VSC, COTTAGE SUPERVISOR-C Referring Provider Active S tart: July 05, 2024 End: July 05, 2024 Dr. Terrell Qiules MD Attending Provider Active Start: July 05, 2024 End: July 05, 2024 Team Status: Inactive Member Role/Relationship Status Dates Jess Deisy VSC, COTTAGE SUPERVISOR-C Primary Care Provider Active Start: July 27, 2024 End: July 27, 2024 Dr. Terrell Quiles MD Attending Provider Active Start: July 27, 2024 End: July 27, 2024 Dr. Terrell Quiles MD Referring Provider Active Start: July 27, 2024 End: July 27, 2024 Team Status: Inactive Member Role/Relationship Status Dates Jess Rosas VSC, COTTAGE SUPERVISOR-C Primary Care Provider Active Start: July 27, 2024 End: July 27, 2024 Dr. Terrell Quiles MD Attending Provider Active Start: July 27, 2024 End: July 27, 2024 Dr. Terrell Quiles MD Referring Provider Active Start: July 27, 2024 End: July 27, 2024 Team Status: Inactive Member Role/Relationship Status Dates Jess Rosas VSC, COTTAGE SUPERVISOR-C Primary Care Provider Active Start: August 03, 2024 End: August 03, 2024 Dr. Terrell Quiles MD Attending Provider Active Start: August 03, 2024 End: August 03, 2024 Dr. Terrell Quiles MD Referring Provider Active Start: August 03, 2024 End: August 03, 2024 Team Status: Inactive Member Role/Relationship Status Dates Jess Rosas VSC, COTTAGE SUPERVISOR-C Primary Care Provider Active Start: August 03, 2024 End: August 03, 2024 Dr. Terrell Quiles MD Attending Provider Active Start: August 03, 2024 End: August 03, 2024 Dr. Terrell Quiles MD Referring Provider Active Start: August 03, 2024 End: August 03, 2024 Team Status: Inactive Member Role/Relationship Status Dates Jess Rosas VSC, COTTAGE SUPERVISOR-C Primary Care Provider Active Start: August 29, 2024 End: August 29, 2024 Jess Rosas VSC, COTTAGE SUPERVISOR-C Referring Provider Active S tart: August 29, 2024 End: August 29, 2024 Dr. Terrell Quiles MD Attending Provider Active Start: August 29, 2024 End: August 29, 2024 Team Status: Inactive Member Role/Relationship Status Dates Jess Rosas VSC, COTTAGE SUPERVISOR-C Primary Care Provider Active Start: September 26, 2024 End: September 26, 2024 Faheem Hyde VSC, COTTAGE SUPERVISOR-C Attending Provider Active Start: September 26, 2024 End: September 26, 2024 Finance Associate Relationship Specialty Start Date End Date Jess Rosas CNP [address] [place] [address] PCP - General Family Medicine 06/06/24 Kalin Alonso MD Home Care Provider Thoracic Surgery 10/24/20 Kaycee Riley, VOCAL MUSIC INSTRUCTOR.CHILDBIRTH AND INFANT CARE TEACHER Referring Vascular Surgery 10/29/20 Felicitas Chavez MD [address] [place] [address] Cardiology 11/26/20 Finance Associate Relationship Specialty Start Date End Date Jess Rosas CNP [address] [place] [id number] PCP - General Family Medicine 06/06/24 Kalin Alonso MD Home Care Provider Thoracic Surgery 10/24/20 Kaycee Riley, VOCAL MUSIC INSTRUCTOR.CHILDBIRTH AND INFANT CARE TEACHER Referring Vascular Surgery 10/29/20 Felicitas Chavez MD [address] [place] [address] Cardiology 11/26/20 Team Status: Inactive Member Role/Relationship Status Dates Jess THOMAS, COTTAGE SUPERVISOR-C Primary Care Provider Active Start: July 05, 2024 End: July 05, 2024 Jess THOMAS, COTTAGE SUPERVISOR-C Referring Provider Active S tart: July 05, 2024 End: July 05, 2024 Dr. Terrell Quiles MD Attending Provider Active Start: July 05, 2024 End: July 05, 2024 Team Status: Inactive Member Role/Relationship Status Dates Jess THOMAS, COTTAGE SUPERVISOR-C Primary Care Provider Active Start: July 27, 2024 End: July 27, 2024 Dr. Terrell Quiles MD Attending Provider Active Start: July 27, 2024 End: July 27, 2024 Dr. Terrell Quiles MD Referring Provider Active Start: July 27, 2024 End: July 27, 2024 Team Status: Inactive Member Role/Relationship Status Dates Jess THOMAS, COTTAGE SUPERVISOR-C Primary Care Provider Active Start: August 03, 2024 End: August 03, 2024 Dr. Terrell Quiles MD Attending Provider Active Start: August 03, 2024 End: August 03, 2024 Dr. Terrell Quiles MD Referring Provider Active Start: August 03, 2024 End: August 03, 2024 Team Status: Inactive Member Role/Relationship Status Dates Jess Rosas VSC, COTTAGE SUPERVISOR-C Primary Care Provider Active Start: August 29, 2024 End: August 29, 2024 Dr. Terrell Quiles MD Attending Provider Active Start: August 29, 2024 End: August 29, 2024 Dr. Terrell Quiles MD Referring Provider Active Start: August 29, 2024 End: August 29, 2024 Team Status: Inactive Member Role/Relationship Status Dates Jess Deisy VSC, COTTAGE SUPERVISOR-C Primary Care Provider Active Start: September 26, 2024 End: September 26, 2024 Faheem Hyde VSC, COTTAGE SUPERVISOR-C Attending Provider Active Start: September 26, 2024 End: September 26, 2024 Team Status: Inactive Member Role/Relationship Status Dates Jess Deisy VSC, COTTAGE SUPERVISOR-C Primary Care Provider Active Start: October 13, 2024 End: October 13, 2024 Dr. Terrell Quiles MD Attending Provider Active Start: October 13, 2024 End: October 13, 2024 Dr. Terrell Quiles MD Referring Provider Active Start: October 13, 2024 End: October 13, 2024 Team Status: Inactive Member Role/Relationship Status Dates Jess Bentonder VSC, COTTAGE SUPERVISOR-C Primary Care Provider Active Start: October 26, 2024 End: October 26, 2024 Jess Deisy VSC, COTTAGE SUPERVISOR-C Referring Provider Active S tart: October 26, 2024 End: October 26, 2024 Dr. Terrell Quiles MD Attending Provider Active Start: October 26, 2024 End: October 26, 2024 Team Status: Active Member Role/Relationship Status Dates Jess Deisy VSC, COTTAGE SUPERVISOR-C Primary Care Provider Active Start: October 26, 2024 Dr. Terrell Quiles MD Attending Provider Active Start: October 26, 2024 Dr. Terrell Quiles MD Referring Provider Active Start: October 26, 2024 (unrecognized sect ion and content) No Status Records FoundNo Status Records FoundNo Status Records FoundNo Status Records Found INFORMATION SOURCE (unrecogn ized section and content) DATE CREATED AUTHOR 09/11/2021 [facility] DATE CREATED AUTHOR AUTHOR'S ORGANIZ ATION 07/20/2024 [facility] DATE CREATED AUTHOR AUTHOR'S ORGANIZ ATION 10/12/2024 [facility] DATE CREATED AUTHOR AUTHOR'S ORGANIZ ATION 11/03/2024 [facility] Goals (unrecognized section and content) Goals [...] BE BASED ON THE PRIMARY CLINICAL RECORDS. [employer] [facility]. provides no warranty or guarantee of the accuracy or completeness of information in this document.
--- NOTE | 2024-11-10 18:00 | CT_ITS ---
PROCEDURE: SINUS/FACIAL BONE 11/11/2024 REASON FOR EXAM: VERTIGO; SINUSITIS TECHNIQUE: Procedure Code: CTSI Modality: CT Procedure: SINUS/FACIAL BONE Coronal and Sagittal reconstruction series were provided. One or more dose reduction techniques were used (e.g., Automated exposure control, adjustment of the mA and/or kV according to patient size, use of iterative reconstruction technique). RADIATION DOSE SUMMARY: CTDI Vol 44.99 mGy DLP :846.73 mGycm COMPARISON: none FINDINGS: Focal mucosal thickening of the left maxillary antrum. Clear sphenoid and frontal sinuses as well as the right maxillary antrum and ethmoidal air cells. Uncinate Processes: No deviation or bulla formation O-M UNIT: patent. Sphenoethmoidal recesses. Patent Fovea Ethmoidalis: Normal position. Fovea ethmoidalis and cribriform plate are not low lying Nasal Septum: minimally bowed convex to the left side. Turbinates: unremarkable. Nasopharynx: no obvious abnormalities. Mastoid air cells and middle ear clefts: Unremarkable Facial Bones and mandible: Unremarkable. Metallic densities along the nasal bones noted. CT/Sinus/Facial Bone IMPRESSION: Focal mucosal thickening of the left maxillary antrum. Intact maxillofacial bones and mandible with no acute fractures. Reading Location: [place] [id number]
== END | disposition home or self-care (01) ==
LOC: CT 17:51
PROVIDERS: PCP Nurse Practitioner Family; Referring Provider Psychiatry & Neurology Neurology; Visit Provider Psychiatry & Neurology Neurology
DX: R42 Dizziness and giddiness (principal); J32.9 Chronic sinusitis, unspecified
CPT/HCPCS: 70486